=== PATIENT | male | born 1945 | race African-American/Black ===

== ENCOUNTER 2018-06-05 06:26 | Inpatient (IN) | payer MEDICARE ==
[~2018-06-05] VITALS: Ht 172.7 cm; Wt 52.2 kg
[2018-06-05] VITALS (7 sets, daily range): BP systolic 90–105; BP diastolic 56–72
--- NOTE | 2018-06-05 06:36 | NUR ---
ED Nurse Note: patient NOEL [id number] from home c/o bilateral leg pain for 2x days. BS 116 on scene
--- NOTE | 2018-06-05 06:51 | Emergency Room Report ---
History of Present Illness General Chief Complaint: Pain Source: Patient Present Illness HPI Patient is a 72-year-old male brought in by EMS after increased bilateral lower extremity pain. Patient reports having increased discomfort to both feet. The patient denies any fever. He reports having drainage to both legs.The patient reports having normal sensation as well as ability to move toes on both feet. Patient's son patient had been having increased difficulty breathing and been off his medications for COPD. The patient has no known heart conditions. Allergies: Coded Allergies: No Known Allergies (Unverified , 06/05/18) Patient History Past Medical History: see triage record Reviewed Nursing Documentation: PMH: Agreed; PSxH: Agreed Nursing Documentation-PMH Past Medical History: No Stated History Physical Exam Vital Signs Date Time Temp Pulse Resp B/P (MAP) Pulse Ox O2 Delivery O2 Flow Rate FiO2 06/05/18 06:28 99.1 102 20 104/60 99 Room Air General Appearance: thin, Chronically Ill Head: normocephalic ENT: moist mucus membranes Neck: limited range of motion Respiratory: decreased breath sounds, wheezing Cardiovascular #1: regular rate, rhythm, edema - 3+ edema Gastrointestinal: normal inspection, non tender, soft Musculoskeletal: swelling - bilateral, foot swelling Neurologic: normal inspection, alert, oriented x3, responsive Skin: other - urticarial rash to left lower extremity with drainage Procedures Critical Care Time Critical Care Time Patient had a critical medical condition which untreated could potentially result in life or limb threatening injury. Total critical care time excluding procedures approximately 45 minutes. Medical Decision Making Diagnostic Impression: Primary Impression: COPD exacerbation Additional Impressions: Pedal edema Left leg cellulitis Emphysema lung ER Course Patient presented for bilateral lower extremity pain and shortness of breath. Differential included but was not limited to anemia, pneumonia, pneumothorax, myocardial infarction, pericardial effusion, congestive heart failure, acidosis. The laboratory testing was notable for normal white blood count. The patient was noted to have elevated lactic acid level and was started on IV fluids. Patient was noted to have elevated B type nitrate peptide. Chest x- ray one view interpreted by me showed normal cardiac size with emphysematous changes. The patient was started on BiPAP the due to CO2 retention. CT of the head showed no evidence of acute intracranial hemorrhage Dr. Oskar Abdalla was contacted for inpatient management Labs Test 06/05/18 07:11 06/05/18 08:39 06/05/18 09:00 06/05/18 10:29 White Blood Count 8.0 K/UL (4.8-10.8) Red Blood Count 4.70 M/UL (4.70-6.10) Hemoglobin 13.6 G/DL (14.2-18.0) Hematocrit 42.8 % (42.0-52.0) Mean Corpuscular Volume 91 FL (80-99) Mean Corpuscular Hemoglobin 28.9 PG (27.0-31.0) Mean Corpuscular Hemoglobin Concent 31.7 G/DL (32.0-36.0) Red Cell Distribution Width 16.3 % (11.6-14.8) Platelet Count 148 K/UL (150-450) Mean Platelet Volume 10.8 FL (6.5-10.1) Neutrophils (%) (Auto) % (45.0-75.0) Lymphocytes (%) (Auto) % (20.0-45.0) Monocytes (%) (Auto) % (1.0-10.0) Eosinophils (%) (Auto) % (0.0-3.0) Basophils (%) (Auto) % (0.0-2.0) Differential Total Cells Counted 100 Neutrophils % (Manual) 77 % (45-75) Lymphocytes % (Manual) 5 % (20-45) Monocytes % (Manual) 5 % (1-10) Eosinophils % (Manual) 0 % (0-3) Basophils % (Manual) 0 % (0-2) Band Neutrophils 13 % (0-8) Platelet Estimate Decreased Platelet Morphology Normal Red Blood Cell Morphology Normal Sodium Level 138 MMOL/L (136-145) Potassium Level 5.3 MMOL/L (3.5-5.1) Chloride Level 100 MMOL/L (98-107) Carbon Dioxide Level 34 MMOL/L (21-32) Anion Gap 4 mmol/L (5-15) Blood Urea Nitrogen 35 mg/dL (7-18) Creatinine 1.4 MG/DL (0.55-1.30) Estimat Glomerular Filtration Rate mL/min (>60) Glucose Level 93 MG/DL (74-106) Calcium Level 9.2 MG/DL (8.5-10.1) Total Bilirubin 1.5 MG/DL (0.2-1.0) Direct Bilirubin 0.5 MG/DL (0.0-0.3) Aspartate Amino Transf (AST/SGOT) 104 U/L (15-37) Alanine Aminotransferase (ALT/SGPT) 98 U/L (12-78) Alkaline Phosphatase 85 U/L (46-116) Total Creatine Kinase 511 U/L (26-308) Creatine Kinase MB 7.1 NG/ML (0.0-3.6) Creatine Kinase MB Relative Index 1.3 Troponin I 0.054 ng/mL (0.000-0.056) Pro-B-Type Natriuretic Peptide 7468 pg/mL (0-125) Total Protein 7.9 G/DL (6.4-8.2) Albumin 2.9 G/DL (3.4-5.0) Globulin 5.0 g/dL Albumin/Globulin Ratio 0.6 (1.0-2.7) Urine Color Brown Urine Appearance Cloudy Urine pH 5 (4.5-8.0) Urine Specific [place] 1.025 (1.005-1.035) Urine Protein 2+ (NEGATIVE) Urine Glucose (UA) Negative (NEGATIVE) Urine Ketones Negative (NEGATIVE) Urine Blood 4+ (NEGATIVE) Urine Nitrite Negative (NEGATIVE) Urine Bilirubin 1+ (NEGATIVE) Urine Ictotest Negative (NEGATIVE) Urine Urobilinogen 4 MG/DL (0.0-1.0) Urine Leukocyte Esterase 1+ (NEGATIVE) Urine RBC 5-10 /HPF (0 - 0) Urine WBC 2-4 /HPF (0 - 0) Urine Squamous Epithelial Cells Occasional /LPF Urine Amorphous Sediment Many /LPF (NONE) Urine Bacteria Few /HPF (NONE) Urine Mucus Moderate /LPF (NONE/OCC) Lactic Acid Level 2.80 mmol/L (0.66-2.22) Arterial Blood pH 7.299 (7.350-7.450) Arterial Blood Partial Pressure CO2 66.0 mmHg (35.0-45.0) Arterial Blood Partial Pressure O2 53.7 mmHg (75.0-100.0) Arterial Blood HCO3 31.7 mmol/L (22.0-26.0) Arterial Blood Oxygen Saturation 82.5 % (95-100) Arterial Blood Base Excess 3.5 (-2-2) Delon Test Positive EKG Diagnostic Results Rate: normal Rhythm: NSR ST Segments: no acute changes Last Vital Signs Date Time Temp Pulse Resp B/P (MAP) Pulse Ox O2 Delivery O2 Flow Rate FiO2 06/05/18 06:34 99.1 63 20 104/60 99 Room Air Status: unchanged Disposition: ADMITTED INPATIENT Condition: Serious Scripts No Active Prescriptions or Reported Meds Kolby Cabrera MD Jun 05, 2018 06:51
[2018-06-05] MEDS ORDERED: Albuterol/Ipratropium 3ml neb HHN ONE (07:00)
[2018-06-05] MEDS ORDERED: DiphenhydrAMINE 50mg/ml Inj IVP ONE (07:00)
[2018-06-05] MEDS ORDERED: Ampicillin/Sulbactam Sod 3 GM in NS 110 ML IVPB ONE (07:00)
[2018-06-05] MEDS ORDERED: Solu-MEDROL 125mg Inj IVP ONE (07:00)
[2018-06-05 07:42] LABS: HEMATOCRIT 42.8 % (42.0-52.0); HEMOGLOBIN 13.6 G/DL (14.2-18.0); MEAN CORPUSCULAR VOLUME 91 FL (80-99); PLATELET COUNT 148 K/UL (150-450); RED CELL DISTRIBUTION WIDTH 16.3 % (11.6-14.8)
[2018-06-05 07:44] LABS: ANION GAP 4 mmol/L (5-15); BLOOD UREA NITROGEN 35 mg/dL (7-18); CALCIUM 9.2 MG/DL (8.5-10.1); CARBON DIOXIDE 34 MMOL/L (21-32); CHLORIDE 100 MMOL/L (98-107); CREATININE 1.4 MG/DL (0.55-1.30); POTASSIUM 5.3 MMOL/L (3.5-5.1); SODIUM 138 MMOL/L (136-145)
[2018-06-05 07:59] LABS: ALANINE AMINOTRANSFERASE 98 U/L (12-78); ALBUMIN 2.9 G/DL (3.4-5.0); ALBUMIN/GLOBULIN RATIO 0.6 (1.0-2.7); ALKALINE PHOSPHATASE 85 U/L (46-116); ASPARTATE AMINO TRANSFERASE 104 U/L (15-37); BILIRUBIN,TOTAL 1.5 MG/DL (0.2-1.0); CKMB 7.1 NG/ML (0.0-3.6); CREATINE KINASE 511 U/L (26-308)
[2018-06-05 08:00] LABS: BILIRUBIN,DIRECT 0.5 MG/DL (0.0-0.3)
--- NOTE | 2018-06-05 08:15 | NUR ---
ED Nurse Note: Pt sleeping comfortably on bed with NS running fluid bolus. Blankets are provided. VSS. Will continue to assess. Family members at the bed side.
--- NOTE | 2018-06-05 08:24 | NUR ---
ED Nurse Note: Rdaiologist at the bed side for CXR.
[2018-06-05 08:51] LABS: APPEARANCE,URINE CLOUDY; BILIRUBIN, URINE 1+ (NEGATIVE); COLOR,URINE BROWN; GLUCOSE, URINE (UA) NEGATIVE (NEGATIVE); KETONES,URINE NEGATIVE (NEGATIVE); LEUKOCYTE ESTERASE ,URINE 1+ (NEGATIVE); NITRITE,URINE NEGATIVE (NEGATIVE); PH,URINE 5 (4.5-8.0); PROTEIN,URINE 2+ (NEGATIVE); UROBILINOGEN,URINE 4 MG/DL (0.0-1.0)
--- NOTE | 2018-06-05 08:54 | Diagnostic Imaging Report ---
Indication: Cough, shortness of breath Technique: One view of the chest Comparison: none Findings: Lungs are hyperinflated. Lungs and pleural spaces are clear. Heart size is normal. Aorta is tortuous Impression: Hyperinflation, compatible with COPD. No acute process
--- NOTE | 2018-06-05 09:01 | NUR ---
ED Nurse Note: Repeat lactic acid sent.
--- NOTE | 2018-06-05 09:41 | NUR ---
ED Nurse Note: Noted bilateral lower extremity redness and edema with open skin tears, (2 big skin tears on left lower leg with + 4 pitting edema, and 3 skin tears on right lower legs with +1 pitting edema. Also noted pt to be lethargic and sleeps most of the time. Dr Cabrera at the bed side
--- NOTE | 2018-06-05 09:41 | NUR ---
Note kyra in EDM - 06/05/18 at 1101 by KEVIN ED Nurse Note: Noted bilateral lower extremity redness and edema with open skin tears, (2 big skin tears on left lower leg with + 4 pitting edema and 2 yfn skin tears on right lower legs with +1 pitting edema. Also noted pt to be lethargic and sleeps most of the time. Dr Cabrera at the bed side
--- NOTE | 2018-06-05 09:53 | NUR ---
ED Nurse Note: Patient taken to CT via gurney.
--- NOTE | 2018-06-05 10:12 | NUR ---
ED Nurse Note: Pt back from CT department, per Loc they were unable to proceed with the CT head d/t pt not able to hold his head still. Charge nurse and Dr Rick heller.
--- NOTE | 2018-06-05 10:21 | NUR ---
ED Nurse Note: RT at the bed side for ABG.
--- NOTE | 2018-06-05 10:26 | Diagnostic Imaging Report ---
Indications: Altered mental status Technique: Spiral acquisitions obtained through the brain. Angled axial and coronal 5 x 5 mm slices were reconstructed. Total dose length product 1576.66 mGycm. CTDI vol(s) 70.38 mGy. Dose reduction achieved using automated exposure control Comparison: None. Findings: There is image degradation due to motion artifact. No gross acute intracranial hemorrhage nor edema, mass effect, nor midline shift. There is mild age-related enlargement of the ventricles and extra axial CSF spaces. There is questionably frontal scalp soft tissue swelling, although this could just be artifactual due to motion. Normal campo-white differentiation. Visualized orbits and sinuses are grossly unremarkable. The mastoids are clear. The calvarium is intact Impression: . Limited exam due to motion artifact. Significant pathology could be missed No gross acute intracranial bleed or mass effect Mild age-related volume loss The CT scanner at [facility] is accredited by the [employer] and the scans are performed using protocols designed to limit radiation exposure to as low as reasonably achievable to attain images of sufficient resolution adequate for diagnostic evaluation.
--- NOTE | 2018-06-05 10:45 | NUR ---
ED Nurse Note: Started Bipap at 1045 as per ER MD order. RT at the bed side.
[2018-06-05] MEDS ORDERED: Albuterol/Ipratropium 3ml neb ONE (10:52)
--- NOTE | 2018-06-05 11:08 | Cardiac Electrophysiology PN ---
Subjective Subjective Patient seen in ER [id number] Objective Last 24 Hour Vital Signs Date Time Temp Pulse Resp B/P (MAP) Pulse Ox O2 Delivery O2 Flow Rate FiO2 06/05/18 10:45 98.0 93 23 102/70 92 Bi-pap 30 06/05/18 10:45 30 06/05/18 08:30 99.0 80 18 99/72 99 Nasal Cannula 2.0 06/05/18 07:33 109 20 Nasal Cannula 2.0 28 06/05/18 07:33 106 20 Nasal Cannula 2.0 28 06/05/18 07:32 106 20 Room Air 21 06/05/18 06:34 99.1 63 20 104/60 99 Room Air 06/05/18 06:28 99.1 102 20 104/60 99 Room Air Laboratory Tests Test 06/05/18 07:11 06/05/18 08:39 06/05/18 09:00 06/05/18 10:29 White Blood Count 8.0 K/UL (4.8-10.8) Red Blood Count 4.70 M/UL (4.70-6.10) Hemoglobin 13.6 G/DL (14.2-18.0) L Hematocrit 42.8 % (42.0-52.0) Mean Corpuscular Volume 91 FL (80-99) Mean Corpuscular Hemoglobin 28.9 PG (27.0-31.0) Mean Corpuscular Hemoglobin Concent 31.7 G/DL (32.0-36.0) L Red Cell Distribution Width 16.3 % (11.6-14.8) H Platelet Count 148 K/UL (150-450) L Mean Platelet Volume 10.8 FL (6.5-10.1) H Neutrophils (%) (Auto) % (45.0-75.0) Lymphocytes (%) (Auto) % (20.0-45.0) Monocytes (%) (Auto) % (1.0-10.0) Eosinophils (%) (Auto) % (0.0-3.0) Basophils (%) (Auto) % (0.0-2.0) Differential Total Cells Counted 100 Neutrophils % (Manual) 77 % (45-75) H Lymphocytes % (Manual) 5 % (20-45) L Monocytes % (Manual) 5 % (1-10) Eosinophils % (Manual) 0 % (0-3) Basophils % (Manual) 0 % (0-2) Band Neutrophils 13 % (0-8) H Platelet Estimate Decreased L Platelet Morphology Normal Red Blood Cell Morphology Normal Sodium Level 138 MMOL/L (136-145) Potassium Level 5.3 MMOL/L (3.5-5.1) H Chloride Level 100 MMOL/L (98-107) Carbon Dioxide Level 34 MMOL/L (21-32) H Anion Gap 4 mmol/L (5-15) L Blood Urea Nitrogen 35 mg/dL (7-18) H Creatinine 1.4 MG/DL (0.55-1.30) H Estimat Glomerular Filtration Rate mL/min (>60) Glucose Level 93 MG/DL (74-106) Lactic Acid Level 3.20 mmol/L (0.4-2.0) H 2.80 mmol/L (0.66-2.22) H Calcium Level 9.2 MG/DL (8.5-10.1) Total Bilirubin 1.5 MG/DL (0.2-1.0) H Direct Bilirubin 0.5 MG/DL (0.0-0.3) H Aspartate Amino Transf (AST/SGOT) 104 U/L (15-37) H Alanine Aminotransferase (ALT/SGPT) 98 U/L (12-78) H Alkaline Phosphatase 85 U/L (46-116) Total Creatine Kinase 511 U/L (26-308) H Creatine Kinase MB 7.1 NG/ML (0.0-3.6) H Creatine Kinase MB Relative Index 1.3 Troponin I 0.054 ng/mL (0.000-0.056) Pro-B-Type Natriuretic Peptide 7468 pg/mL (0-125) H Total Protein 7.9 G/DL (6.4-8.2) Albumin 2.9 G/DL (3.4-5.0) L Globulin 5.0 g/dL Albumin/Globulin Ratio 0.6 (1.0-2.7) L Urine Color Brown Urine Appearance Cloudy Urine pH 5 (4.5-8.0) Urine Specific [place] 1.025 (1.005-1.035) Urine Protein 2+ (NEGATIVE) H Urine Glucose (UA) Negative (NEGATIVE) Urine Ketones Negative (NEGATIVE) Urine Blood 4+ (NEGATIVE) H Urine Nitrite Negative (NEGATIVE) Urine Bilirubin 1+ (NEGATIVE) H Urine Ictotest Negative (NEGATIVE) Urine Urobilinogen 4 MG/DL (0.0-1.0) H Urine Leukocyte Esterase 1+ (NEGATIVE) H Urine RBC 5-10 /HPF (0 - 0) H Urine WBC 2-4 /HPF (0 - 0) Urine Squamous Epithelial Cells Occasional /LPF Urine Amorphous Sediment Many /LPF (NONE) H Urine Bacteria Few /HPF (NONE) Urine Mucus Moderate /LPF (NONE/OCC) H Arterial Blood pH 7.299 (7.350-7.450) Arterial Blood Partial Pressure CO2 66.0 mmHg (35.0-45.0) *H Arterial Blood Partial Pressure O2 53.7 mmHg (75.0-100.0) L Arterial Blood HCO3 31.7 mmol/L (22.0-26.0) H Arterial Blood Oxygen Saturation 82.5 % (95-100) *L Arterial Blood Base Excess 3.5 (-2-2) H Delon Test Positive Lv Campbell MD Jun 05, 2018 11:09
--- NOTE | 2018-06-05 11:45 | NUR ---
ED Nurse Note: Report given to Georgie Mccurdy of [facility].
--- NOTE | 2018-06-05 12:00 | NUR ---
ED Nurse Note: Waiting for RT for pt transfer to [facility].
--- NOTE | 2018-06-05 12:13 | NUR ---
Note kyra in EDM - 06/05/18 at 1217 by KEVIN ED Nurse Note: Called RT to continue with Bipap. Pt CXR shows pulmonary edema per Dr Cabrera.
--- NOTE | 2018-06-05 12:50 | NUR ---
NURSE NOTES: Patient received from ER. Alert and responsive, oriented but uncooperative. Denies pain. With noted SOB at rest. Patient is on BIPAP with setting rate:16, 15/5, FiO2:30% with oxygen saturation 94%. SR on the monitor at rate 80s. Skin assessment done, pictures of lower extremities taken. Elevated extremities with pillows. Oriented on room. Placed bed on lowest position. Placed call light within reach.
--- NOTE | 2018-06-05 13:00 | NUR ---
NURSE NOTES: Called and spoke with sonJah to get more medical information. Son states that patient has not been taking any medication because he stopped taking them 6 months ago. Only known history is emphysema and patient reports that he's a former smoker. Patient refused Pneumonia and flu vaccine.
[2018-06-05] MEDS: Albuterol/Ipratropium 3ml neb HHN SCH ×3 (15:08→23:33)
[2018-06-05] MEDS: cefTRIAXone 1 GM in D5W 55 ML IVPB SCH (15:15)
[2018-06-05] MEDS: Solu-MEDROL 40mg Inj IVP SCH ×2 (15:15→21:47)
--- NOTE | 2018-06-05 15:30 | Pulmonology Progress Note ---
Assessment/Plan Assessment/Plan Pulmonary Consultation Note HPI Patient is a 72-year-old male with previoujs history of COPD, brought in by EMS after increased bilateral lower extremity pain. Patient reports having increased discomfort to both feet. The patient denies any fever. He reports having drainage to both legs.The patient reports having normal sensation as well as ability to move toes on both feet. Patient's son patient had been having increased difficulty breathing and been off his medications for COPD. The patient has no known heart conditions. Allergies: No Known Allergies Past Medical History: COPD ROS: COPDhortness of breath, LE pain, rest Negative Physical Exam Vital Signs Date Time Temp Pulse Resp B/P (MAP) Pulse Ox O2 Delivery O2 Flow Rate FiO2 06/05/18 06:34 99.1 63 20 104/60 99 Room Air General Appearance: thin, Chronically Ill Head: normocephalic ENT: moist mucus membranes Neck: limited range of motion Respiratory: decreased breath sounds, wheezing Cardiovascular #1: regular rate, rhythm, edema - 3+ edema Gastrointestinal: normal inspection, non tender, soft Musculoskeletal: swelling - bilateral, foot swelling Neurologic: normal inspection, alert, oriented x3, responsive Skin: other - urticarial rash to left lower extremity with drainage Impression: COPD exacerbation Emphysema Pedal edema Left leg cellulitis Plan IV antibiotics Solumedrol HHN BiPAP PRN O2 PRN SQ hepairin Analgesia Labs Test 06/05/18 07:11 06/05/18 08:39 06/05/18 09:00 06/05/18 10:29 White Blood Count 8.0 K/UL (4.8-10.8) Red Blood Count 4.70 M/UL (4.70-6.10) Hemoglobin 13.6 G/DL (14.2-18.0) Hematocrit 42.8 % (42.0-52.0) Mean Corpuscular Volume 91 FL (80-99) Mean Corpuscular Hemoglobin 28.9 PG (27.0-31.0) Mean Corpuscular Hemoglobin Concent 31.7 G/DL (32.0-36.0) Red Cell Distribution Width 16.3 % (11.6-14.8) Platelet Count 148 K/UL (150-450) Mean Platelet Volume 10.8 FL (6.5-10.1) Neutrophils (%) (Auto) % (45.0-75.0) Lymphocytes (%) (Auto) % (20.0-45.0) Monocytes (%) (Auto) % (1.0-10.0) Eosinophils (%) (Auto) % (0.0-3.0) Basophils (%) (Auto) % (0.0-2.0) Differential Total Cells Counted 100 Neutrophils % (Manual) 77 % (45-75) Lymphocytes % (Manual) 5 % (20-45) Monocytes % (Manual) 5 % (1-10) Eosinophils % (Manual) 0 % (0-3) Basophils % (Manual) 0 % (0-2) Band Neutrophils 13 % (0-8) Platelet Estimate Decreased Platelet Morphology Normal Red Blood Cell Morphology Normal Sodium Level 138 MMOL/L (136-145) Potassium Level 5.3 MMOL/L (3.5-5.1) Chloride Level 100 MMOL/L (98-107) Carbon Dioxide Level 34 MMOL/L (21-32) Anion Gap 4 mmol/L (5-15) Blood Urea Nitrogen 35 mg/dL (7-18) Creatinine 1.4 MG/DL (0.55-1.30) Estimat Glomerular Filtration Rate mL/min (>60) Glucose Level 93 MG/DL (74-106) Calcium Level 9.2 MG/DL (8.5-10.1) Total Bilirubin 1.5 MG/DL (0.2-1.0) Direct Bilirubin 0.5 MG/DL (0.0-0.3) Aspartate Amino Transf (AST/SGOT) 104 U/L (15-37) Alanine Aminotransferase (ALT/SGPT) 98 U/L (12-78) Alkaline Phosphatase 85 U/L (46-116) Total Creatine Kinase 511 U/L (26-308) Creatine Kinase MB 7.1 NG/ML (0.0-3.6) Creatine Kinase MB Relative Index 1.3 Troponin I 0.054 ng/mL (0.000-0.056) Pro-B-Type Natriuretic Peptide 7468 pg/mL (0-125) Total Protein 7.9 G/DL (6.4-8.2) Albumin 2.9 G/DL (3.4-5.0) Globulin 5.0 g/dL Albumin/Globulin Ratio 0.6 (1.0-2.7) Urine Color Brown Urine Appearance Cloudy Urine pH 5 (4.5-8.0) Urine Specific [place] 1.025 (1.005-1.035) Urine Protein 2+ (NEGATIVE) Urine Glucose (UA) Negative (NEGATIVE) Urine Ketones Negative (NEGATIVE) Urine Blood 4+ (NEGATIVE) Urine Nitrite Negative (NEGATIVE) Urine Bilirubin 1+ (NEGATIVE) Urine Ictotest Negative (NEGATIVE) Urine Urobilinogen 4 MG/DL (0.0-1.0) Urine Leukocyte Esterase 1+ (NEGATIVE) Urine RBC 5-10 /HPF (0 - 0) Urine WBC 2-4 /HPF (0 - 0) Urine Squamous Epithelial Cells Occasional /LPF Urine Amorphous Sediment Many /LPF (NONE) Urine Bacteria Few /HPF (NONE) Urine Mucus Moderate /LPF (NONE/OCC) Lactic Acid Level 2.80 mmol/L (0.66-2.22) Arterial Blood pH 7.299 (7.350-7.450) Arterial Blood Partial Pressure CO2 66.0 mmHg (35.0-45.0) Arterial Blood Partial Pressure O2 53.7 mmHg (75.0-100.0) Arterial Blood HCO3 31.7 mmol/L (22.0-26.0) Arterial Blood Oxygen Saturation 82.5 % (95-100) Arterial Blood Base Excess 3.5 (-2-2) Delon Test Positive EKG Diagnostic Results Rate: normal Rhythm: NSR ST Segments: no acute changes Subjective ROS Limited/Unobtainable: No Musculoskeletal: Reports: pain Allergies: Coded Allergies: No Known Allergies (Unverified , 06/05/18) Objective Last 24 Hour Vital Signs Date Time Temp Pulse Resp B/P (MAP) Pulse Ox O2 Delivery O2 Flow Rate FiO2 06/05/18 15:10 76 16 Bi-pap 30 06/05/18 14:42 76 16 98 Facial 30 06/05/18 13:47 105/67 (80) 06/05/18 12:50 Bi-pap 06/05/18 12:50 30 06/05/18 12:50 97.9 83 25 96/69 (78) 94 06/05/18 12:30 98.0 89 22 115/76 94 Bi-pap 30 06/05/18 10:45 98.0 93 23 102/70 92 Bi-pap 30 06/05/18 10:45 96 27 99 Facial 30 06/05/18 10:45 30 06/05/18 08:30 99.0 80 18 99/72 99 Nasal Cannula 2.0 06/05/18 07:33 109 20 Nasal Cannula 2.0 28 06/05/18 07:33 106 20 Nasal Cannula 2.0 28 06/05/18 07:32 106 20 Room Air 21 06/05/18 06:34 99.1 63 20 104/60 99 Room Air 06/05/18 06:28 99.1 102 20 104/60 99 Room Air Microbiology Date/Time Source Procedure Growth Status 06/05/18 11:00 Rectum Received Laboratory Tests 06/05/18 07:11: White Blood Count 8.0, Red Blood Count 4.70, Hemoglobin 13.6L, Hematocrit 42.8, Mean Corpuscular Volume 91, Mean Corpuscular Hemoglobin 28.9, Mean Corpuscular Hemoglobin Concent 31.7L, Red Cell Distribution Width 16.3H, Platelet Count 148L , Mean Platelet Volume 10.8H, Neutrophils (%) (Auto) , Lymphocytes (%) (Auto) , Monocytes (%) (Auto) , Eosinophils (%) (Auto) , Basophils (%) (Auto) , Differential Total Cells Counted 100, Neutrophils % (Manual) 77H, Lymphocytes % (Manual) 5L, Monocytes % (Manual) 5, Eosinophils % (Manual) 0, Basophils % ( Manual) 0, Band Neutrophils 13H, Platelet Estimate DecreasedL, Platelet Morphology Normal, Red Blood Cell Morphology Normal, Sodium Level 138, Potassium Level 5.3H, Chloride Level 100, Carbon Dioxide Level 34H, Anion Gap 4L , Blood Urea Nitrogen 35H, Creatinine 1.4H, Estimat Glomerular Filtration Rate , Glucose Level 93, Lactic Acid Level 3.20H, Calcium Level 9.2, Total Bilirubin 1.5H, Direct Bilirubin 0.5H, Aspartate Amino Transf (AST/SGOT) 104H, Alanine Aminotransferase (ALT/SGPT) 98H, Alkaline Phosphatase 85, Total Creatine Kinase 511H, Creatine Kinase MB 7.1H, Creatine Kinase MB Relative Index 1.3, Troponin I 0.054, Pro-B-Type Natriuretic Peptide 7468H, Total Protein 7.9, Albumin 2.9L, Globulin 5.0, Albumin/Globulin Ratio 0.6L 06/05/18 08:39: Urine Color Brown, Urine Appearance Cloudy, Urine pH 5, Urine Specific [place] 1.025, Urine Protein 2+H, Urine Glucose (UA) Negative, Urine Ketones Negative, Urine Blood 4+H, Urine Nitrite Negative, Urine Bilirubin 1+H, Urine Ictotest Negative, Urine Urobilinogen 4H, Urine Leukocyte Esterase 1+H, Urine RBC 5-10H, Urine WBC 2-4, Urine Squamous Epithelial Cells Occasional, Urine Amorphous Sediment ManyH, Urine Bacteria Few, Urine Mucus ModerateH 06/05/18 09:00: Lactic Acid Level 2.80H 06/05/18 10:29: Arterial Blood pH 7.299L, Arterial Blood Partial Pressure CO2 66.0*H, Arterial Blood Partial Pressure O2 53.7L, Arterial Blood HCO3 31.7H, Arterial Blood Oxygen Saturation 82.5*L, Arterial Blood Base Excess 3.5H, Delon Test Positive Current Medications Medications (Trade) Dose Ordered Sig/Brittani Route PRN Reason Start Time Stop Time Status Last Admin Dose Admin Albuterol/ Ipratropium (Albuterol/ Ipratropium) 3 ml Q4HRT HHN 06/05/18 15:00 06/10/18 14:59 06/05/18 15:08 Ceftriaxone Sodium 1 gm/ Dextrose 55 ml @ 110 mls/hr DAILY IVPB 06/05/18 15:00 06/12/18 14:59 06/05/18 15:15 Doxycycline Hyclate 100 mg/ Dextrose 110 ml @ 110 mls/hr Q12HR IVPB 06/05/18 21:00 06/12/18 20:59 UNV Furosemide (Lasix) 40 mg EVERY 12 HOURS IV 06/05/18 12:00 07/05/18 11:59 06/05/18 14:36 Heparin Sodium (Porcine) (Heparin 5000 units/ml) 5,000 units EVERY 12 HOURS SUBQ 06/05/18 21:00 07/05/18 20:59 Methylprednisolone Sodium Succinate (Solu-MEDROL) 40 mg EVERY 12 HOURS IVP 06/05/18 15:00 07/05/18 14:59 06/05/18 15:15 Vancomycin HCl (Vanco rx to dose) 1 ea DAILY PRN MISC Per rx protocol 06/05/18 14:00 07/05/18 13:59 Vancomycin HCl 500 mg/Dextrose 110 ml @ 110 mls/hr Q24H IVPB 06/06/18 16:00 06/11/18 15:59 Vancomycin HCl 1 gm/Dextrose 275 ml @ 183.708 mls/hr ONCE ONCE IVPB 06/05/18 16:00 06/05/18 17:29 Johny White MD Jun 05, 2018 15:30
--- NOTE | 2018-06-05 15:51 | Cardiology Report ---
APPROVED REPORT EKG Measurement Heart [id number] Sinus tachycardia with premature atrial complexes with aberrant conduction Possible Inferior infarct, age undetermined Anterior infarct, age undetermined Abnormal ECG
[2018-06-05] MEDS ORDERED: Vancomycin 1gm/D5W 275ml IVPB ONE ×2 (16:00)
--- NOTE | 2018-06-05 16:09 | NUR ---
NURSE NOTES: Called Dr. White and made aware of the ABG result pCO2:66.1, pO2:83.2, HCO3:36.8, oxygen saturation:94.9, base excess:9.1 while on BIPAP rate:16, 15/5, FiO2:30% with oxygen saturation of 94%. Patient noted drowsy, arousable to speech. Also verified order of Doxycycline.Made aware that patient is currently on Ceftriaxone and Vancomycin as ordered by ID, Verified if MD would like to continue Doxycycline and MD ordered to keep Doxycycline.
[2018-06-05] MEDS ORDERED: Doxycycline Hyclate 100 MG in D5W 110 ML IV SCH (18:00)
--- NOTE | 2018-06-05 18:42 | NUR ---
Social Service Note GARTH spoke with patient's son Jah Holly [phone] to obtain history prior to admission. Son states patient was independent with ADL's up until about a week and half ago. Patient has not received medical intervention or seen a physician for about a year. Patient's at [facility] about 10 years ago. Son states patient never recovered from this lost but once he lost his job about year ago son stated patient became more depressed and withdrawn. Patient didn't use DME at home and just recently stopped driving. 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 Son states patient didn't require assistance. Son states when he found his father down patient was returning from the bathroom. Son stated patient wet his bed and son removed sheets prior to ambulance arrival. Son states wetting the bed is a new event which he believes is due to patient's decline in ambulation and ability to get out of bed. SW addressed code status. At this time patient will remain a full code. However son indicated if patient required intubation and didn't show a meaningful recovery he would not want patient's life to be prolonged. Patient states upon discharge he believes patient will require SNF placement. Son does not want placement at [facility]. Son would also like to speak with [facility]. Patient doesn't have an advance directive. Will monitor and assist as needed.
[2018-06-05] MEDS: Doxycycline Hyclate 100 MG in D5W 110 ML IV SCH (18:45)
--- NOTE | 2018-06-05 19:34 | NUR ---
HAND-OFF: Report given to GENNY Wyatt. Endorsed that patient has pending 2decho, venous duplex, troponin at 0400 and currently NPO. Endorsed that CRYSTAL FINISHER was consulted to locate family for code status. CRYSTAL FINISHER to be informed.
--- NOTE | 2018-06-05 19:35 | NUR ---
NURSE NOTES: report received from GENNY Paz. Observed pt lying on the bed, no signs of pain at this time. pt is A/O x3-4. pt is on Bipap 16, 15/5, FiO2 30%, no signs of distress noted. Pt has condom catheter, intact and draining well. IV site on L FA 20G TKO, intact and patent. Bed in the lowest position. Will continue to monitor.
--- NOTE | 2018-06-05 19:45 | Consultation ---
DATE OF CONSULTATION: 06/05/2018 CARDIOLOGY CONSULTATION CONSULTING PHYSICIAN: Lv Campbell M.D. REFERRING PHYSICIAN: Oskar Nichole M.D. REASON FOR CONSULTATION: Congestive heart failure and shortness of breath. HISTORY OF PRESENT ILLNESS: The patient is a 72-year-old gentleman who has history of chronic COPD on home oxygen that the patient's has not been taking this for about six months. The patient's last hospitalization was about a year ago. The patient was noted to also have severe bilateral lower extremity pain and swelling and cellulitis with drainage from both legs. The patient was brought to the emergency room and was found to have a high CO2 and low oxygen saturation. Cardiology consultation was obtained for further evaluation and management. REVIEW OF SYSTEMS: Review of systems was negative other than what was mentioned in the history of present illness that was performed through his son as currently the patient is on BiPAP. PAST MEDICAL HISTORY: COPD. FAMILY HISTORY: Noncontributory. SOCIAL HISTORY: He lives at home. Does not smoke or drink alcohol. PHYSICAL EXAMINATION: VITAL SIGNS: Blood pressure 104/60, pulse 102, respirations 20, and temperature 99.1. HEAD AND NECK: Show positive JVD. LUNGS: Decreased breath sounds. CARDIOVASCULAR: Shows regular S1 and S2 with no gallop. ABDOMEN: Soft. EXTREMITIES: Bilateral 2+ pitting edema and cellulitis. LABORATORY AND DIAGNOSTIC DATA: His EKG shows sinus tachycardia with intermittent axis with old anteroseptal myocardial infarction. Chest x-ray that showed no cardiomegaly. His labs show white count of 8, hemoglobin 13, hematocrit of 42, and platelet count is 148. Sodium 138, potassium 5.3, BUN of 35, creatinine 1.4, glucose of 93. Lactic acid is 3.2 and 2.8. Troponin is negative. BNP is 7468. ASSESSMENT AND PLAN: 1. Severe bilateral lower extremity edema. BNP is also 7500. We will start the patient on Lasix 40 mg IV b.i.d. Get lower extremity duplex as well as echocardiogram for further evaluation. 2. COPD exacerbation. Further evaluation by and nebulizers, currently on BiPAP. 3. Lower extremity cellulitis, likely would need antibiotics. Thank you very much for allowing me to participate in the care of this patient. Please do not hesitate to contact me for any questions regarding my evaluation. Lv Campbell M.D. DR: SHADE JOB#: [id number] CC:
[2018-06-05] MEDS: Heparin 5000 units/ml inj SUBQ SCH (21:49)
--- NOTE | 2018-06-05 22:30 | History and Physical Report ---
DATE OF ADMISSION: 06/05/2018 HISTORY OF PRESENT ILLNESS: The patient is admitted for chronic obstructive pulmonary disease exacerbation. The patient is on BiPAP, is a poor historian, contracted with multiple wounds, cachectic, admitted for COPD exacerbation, cannot get reliable history from the patient. The patient is a very poor historian. The patient does have shortness of breath and is admitted for COPD exacerbation and left leg cellulitis. He has history of COPD, has been off his medications, admits shortness of breath has been going on for couple of days. The patient has elevated lactic acid and BNP as well. An EKG initially shows sinus tachycardia, was given antibiotics in the ER. The patient also has elevated . PAST MEDICAL HISTORY: Significant for COPD and GERD. PAST SURGICAL HISTORY: None known. ALLERGIES: No known drug allergies. MEDICATIONS: Cannot verify medications at this point. The patient is a poor historian. FAMILY HISTORY: Unable to obtain. SOCIAL HISTORY: Unable to obtain. REVIEW OF SYSTEMS: Unable to obtain. Poor historian. The patient is on BiPAP. PHYSICAL EXAMINATION: VITAL SIGNS: Temperature 97.9, pulse 80, blood pressure 90/56. HEENT: PERRLA. CHEST: Bibasilar wheezing. CARDIOVASCULAR: Tachycardic. GASTROINTESTINAL: Soft. Positive bowel sounds. EXTREMITIES: The patient does have contractures. SKIN: For skin integrity and wounds refer to the nursing notes. NEUROLOGIC: Oriented to name. The patient is on BiPAP. LABORATORY DATA: WBC of 8, hemoglobin 13.6, and platelets of 148. Sodium 138, potassium 5.3, BUN of 35, creatinine 1.4, and glucose of 93, AST of 104, ALT of 98, alkaline phosphatase of 85, total bilirubin of 1.5. BNP of 7468. Troponin 0.054. ASSESSMENT: 1. COPD exacerbation. 2. Respiratory insufficiency. 3. Elevated LFTS. 4. Cellulitis on the left leg. 5. The patient also has erythema and warmth to touch on the left leg. 6. Chronic obstructive pulmonary disease exacerbation. 7. Tachycardia. I have asked Dr. Salmon, Dr. Pinedo, Dr. Daly, Dr. Campbell, Dr. William Avalos to see the patient for above-mentioned diagnoses and . Antibiotics per Dr. William Avalos. Oskar Nichole M.D. DR: Taina JOB#: [id number] CC:
[2018-06-06] VITALS: BP 100/67
--- NOTE | 2018-06-06 | Consultation ---
DATE OF CONSULTATION: 06/05/2018 NOTE: POOR AUDIO INFECTIOUS DISEASE CONSULTATION CONSULTING PHYSICIAN: William Avalos M.D. PRIMARY ATTENDING PHYSICIAN: Oskar Nichole M.D. REASON FOR CONSULTATION: Leg cellulitis and chronic obstructive pulmonary disease exacerbation. HISTORY OF PRESENT ILLNESS: This is a 72-year-old male, admitted from home today complaining of shortness of breath, also has pain in both legs with ulceration in the left one and oozing some fluid. The patient was found to have elevated transaminase, renal failure, and lactic acidosis. The patient is a poor historian. PAST MEDICAL HISTORY: Chronic obstructive pulmonary disease, Emphysema. ALLERGIES: No known drug allergies. MEDICATIONS: Lasix, , albuterol, ipratropium inhaler. received Unasyn In ER, got the dose of methylprednisone . SOCIAL HISTORY: The patient comes from home. was smoker. No other history obtainable. The patient currently has shortness of breath, on BiPAP. PHYSICAL EXAMINATION: VITAL SIGNS: Temperature is 97.9, pulse 83, and blood pressure 105/67. GENERAL APPEARANCE: In respiratory distress. HEAD AND NECK: Currently, on BiPAP. [place] conjunctivae. HEART: Normal rate. LUNGS: Decreased sound on expansion. ABDOMEN: Soft and nontender. EXTREMITIES: Has erythema in both legs. He has ulceration more in left leg. LABORATORY AND DIAGNOSTIC DATA: platelets 148,000. Sodium 138, potassium 5.3, BUN 35, and creatinine 1.4. Lactic acid 2.8. Bilirubin 1.5. AST 104 and ALT 98. BNP level was elevated at 7568. Albumin is 2.9. CT scan of the head shows age-related atrophy that is mild. Chest x-ray showed COPD. IMPRESSION: 1. Chronic obstructive pulmonary disease exacerbation. 2. Cellulitis of the leg, more on the left side. 3. The patient has hypercapnic and hypoxemic respiratory failure. 4. Renal failure that is not clear acute or chronic. 5. Elevated transaminase and bilirubin . 6. Hyperkalemia. RECOMMENDATIONS: We will start the patient on vancomycin and ceftriaxone. We will follow up the culture. We will order abdominal ultrasound to further evaluate for kidney and liver abnormality. At the end of my exam, I thank, Dr. Nichole, for involving me in the care of this patient. William Avalos M.D. DR: BELLA JOB#: [id number] CC: GUSTAVO
[2018-06-06] MEDS: Albuterol/Ipratropium 3ml neb HHN SCH ×6 (03:10→22:50)
--- NOTE | 2018-06-06 03:30 | Consultation ---
DATE OF CONSULTATION: 06/05/2018 GASTROENTEROLOGY CONSULTATION CONSULTING PHYSICIAN: Carlos Daly M.D. REFERRING PHYSICIAN: Oskar Nichole M.D. CHIEF COMPLAINT: I was asked to see this patient by Dr. Oskar Nichole for evaluation of abnormal liver tests. HISTORY OF PRESENT ILLNESS: The patient is a pleasant 72-year-old male with multiple medical problems including chronic COPD on home oxygen, who comes into the hospital due to lower extremity cellulitis. The patient has been ill with congestive heart failure and shortness of breath and on evaluation he is also noted to have abnormal liver tests. He denies any abdominal pain, nausea, vomiting, or history of hepatitis or jaundice. He drinks alcohol only occasionally. PAST MEDICAL HISTORY: History of oxygen dependent COPD, congestive heart failure, lower extremity venous stasis, and recurrent cellulitis. FAMILY HISTORY: Noncontributory. SOCIAL HISTORY: The patient lives in the [facility]. He drinks occasionally. REVIEW OF SYSTEMS: Otherwise negative. PHYSICAL EXAMINATION: GENERAL: Debilitated thin man, found in his room. HEENT: Normocephalic and atraumatic. Sclerae anicteric. Oropharynx is clear. NECK: Supple. CHEST: Revealed coarse breath sounds. CARDIOVASCULAR: Revealed regular rate. ABDOMEN: Soft. Good bowel sounds. There is no organomegaly or tenderness. EXTREMITIES: Revealed bilateral lower extremity edema with color consistent with cellulitis. LABORATORY DATA: Noted. ASSESSMENT: This patient presents with chronic obstructive pulmonary disease exacerbation and respiratory failure, which is both acute on chronic. He is also found to have cellulitis of his lower extremity, which increases his infectious complications. His liver tests were also elevated, but the etiology is unclear. The patient himself does not offer any history and therefore workup will include checking for hepatitis serology, which will be ordered for tomorrow morning. The ultrasound of the abdomen has been done this afternoon, but no results yet. Once reviewed, then further imaging studies including MRI scan can be considered. In the meantime, the patient should be encouraged to maximize oral intake given the amount of metabolic stress that he is undergoing. RECOMMENDATIONS: 1. Push oral intake. 2. Follow liver tests. 3. Check hepatitis serology. 4. Followup ultrasound result. 5. Antibiotics. 6. Pulmonary support and treatment. Thank you for asking me to participate in the care of this patient. Carlos Daly M.D. DR: ATIF JOB#: [id number] CC: GUSTAVO
[2018-06-06 04:00] VITALS: BP 98/72
[2018-06-06 05:38] LABS: HEMOGLOBIN 11.4 G/DL (14.2-18.0); MEAN CORPUSCULAR VOLUME 94 FL (80-99); PLATELET COUNT 136 K/UL (150-450); RED BLOOD COUNT 3.81 M/UL (4.70-6.10)
[2018-06-06 06:41] LABS: ALANINE AMINOTRANSFERASE 83 U/L (12-78); ALBUMIN 2.2 G/DL (3.4-5.0); ALBUMIN/GLOBULIN RATIO 0.5 (1.0-2.7); ALKALINE PHOSPHATASE 70 U/L (46-116); ANION GAP 3 mmol/L (5-15); ASPARTATE AMINO TRANSFERASE 56 U/L (15-37); BILIRUBIN,TOTAL 1.3 MG/DL (0.2-1.0); BLOOD UREA NITROGEN 30 mg/dL (7-18); CALCIUM 9.1 MG/DL (8.5-10.1); CARBON DIOXIDE 38 MMOL/L (21-32); CHLORIDE 100 MMOL/L (98-107); CHOLESTEROL 112 MG/DL (< 200); CREATININE 1.2 MG/DL (0.55-1.30); HDL CHOLESTEROL 51 MG/DL (40-60); SODIUM 141 MMOL/L (136-145); TRIGLYCERIDES 54 MG/DL (30-150)
[2018-06-06 06:43] LABS: BILIRUBIN,DIRECT 0.8 MG/DL (0.0-0.3)
[2018-06-06 06:54] LABS: CREATINE KINASE 221 U/L (26-308)
[2018-06-06 06:55] LABS: PHOSPHORUS 4.2 MG/DL (2.5-4.9)
--- NOTE | 2018-06-06 07:30 | NUR ---
RESPIRATORY NOTE: Patient received ventilated on BiPAP with current ordered settings. Full face mask taken off briefly to asses facial skin and to relief facial pressure. Skin is intact with no redness or skin breakdown noted. Bilateral diminished breath sounds noted. BiPAP alarms are audible and functional. Cleaned face and administered oral care. Face re-taped with foam tape and placed on full face mask. Inline breathing treatment given with no adverse reaction. Patient appears comfortable at this time. Will continue to monitor.
--- NOTE | 2018-06-06 07:35 | NUR ---
NURSE NOTES: Report received from Yoselin Macdonald RN.Pt resting in bed asleep,noted no resp distress on BIPAP 15/5 FIO2 30%,no signs of pain or discomfort SR on the monitor, Pt NPO ,skin warm and dry with IV site to LFA intact ,condom cath in placed ,SR up x2 HOB elevated bed lock in lowest position,will; continue with plan of care.
[2018-06-06 08:00] VITALS: BP 103/67
--- NOTE | 2018-06-06 08:10 | NUR ---
HAND-OFF: Report given to GENNY Pompa. Observed pt sleeping on the bed. No distress noted at this time
--- NOTE | 2018-06-06 08:33 | Diagnostic Imaging Report ---
Indication: Acute renal failure, abnormal liver function tests. Technique: Pineda-scale and duplex images of the upper abdomen were obtained. Doppler interrogation of the hepatic and pancreatic vessels was performed Comparison: none Findings: Gallbladder is unremarkable, without stones, wall thickening, nor pericholecystic fluid. Sonographic Lopez's sign is negative. Common bile duct measures 5 mm in diameter. No intrahepatic biliary ductal dilatation. Liver demonstrates normal echogenicity, no focal abnormality. Portal vein and hepatic veins are patent. Pancreas is unremarkable. Spleen is unremarkable. Left kidney measures 10.5 cm in length. Right kidney measures 10.8 cm length. Both kidneys demonstrate slightly increased echogenicity. There is no hydronephrosis. Right kidney demonstrates a small cyst . Non-aneurysmal abdominal aorta . Impression: Slightly increased renal echogenicity, consistent with medical renal disease. Negative for hydronephrosis Negative for gallstones or dilated ducts Incidental finding small right renal cyst
[2018-06-06] MEDS: Solu-MEDROL 40mg Inj IVP SCH ×2 (09:58→21:35)
[2018-06-06] MEDS: cefTRIAXone 1 GM in D5W 55 ML IVPB SCH (10:00)
[2018-06-06] MEDS: Doxycycline Hyclate 100 MG in D5W 110 ML IV SCH ×2 (10:04→21:35)
[2018-06-06] MEDS: Heparin 5000 units/ml inj SUBQ SCH ×2 (10:06→21:37)
[2018-06-06 12:03] VITALS: BP 99/62
--- NOTE | 2018-06-06 12:18 | Infectious Diseases Prog Note ---
Assessment/Plan Assessment/Plan A; COPD exacerbation Legs cellulitis Respiratory failure Elevated transaminase Cachexia Renal failure P: Continue Vancomycin & Rocephin Will f/u cultures Subjective ROS Limited/Unobtainable: Yes Constitutional: Reports: no symptoms Respiratory: Reports: shortness of breath Gastrointestinal/Abdominal: Reports: no symptoms Genitourinary: Reports: no symptoms Allergies: Coded Allergies: No Known Allergies (Unverified , 06/05/18) Objective Vital Signs Last 24 Hour Vital Signs Date Time Temp Pulse Resp B/P (MAP) Pulse Ox O2 Delivery O2 Flow Rate FiO2 06/06/18 12:05 Bi-pap 06/06/18 12:03 97.8 88 23 99/62 (74) 96 06/06/18 12:01 30 06/06/18 11:09 Bi-pap 06/06/18 11:09 Bi-pap 06/06/18 11:08 86 19 95 Full Face 30 06/06/18 09:16 85 24 96 Facial 30 06/06/18 08:00 Bi-pap 06/06/18 08:00 98.8 90 16 103/67 (79) 96 06/06/18 07:51 88 18 98 Bi-pap 30 06/06/18 07:41 86 17 96 Bi-pap 30 06/06/18 07:35 83 06/06/18 07:25 86 17 95 Facial 30 06/06/18 04:43 79 30 97 Full Face 30 06/06/18 04:00 Bi-pap 06/06/18 04:00 98.9 80 21 98/72 (81) 97 06/06/18 04:00 85 06/06/18 03:13 92 26 97 Bi-pap 30 06/06/18 03:10 86 25 96 Full Face 30 06/06/18 03:00 85 25 95 Bi-pap 30 06/06/18 01:14 118 19 98 Full Face 30 06/06/18 00:00 Bi-pap 06/06/18 00:00 81 06/06/18 00:00 99.1 80 18 100/67 (78) 100 06/05/18 23:34 102 17 99 Bi-pap 30 06/05/18 23:23 94 17 94 Bi-pap 30 06/05/18 22:34 102 16 96 Facial 30 06/05/18 22:00 100 16 94 Facial 30 06/05/18 20:00 83 06/05/18 20:00 Bi-pap 06/05/18 20:00 30 06/05/18 20:00 97.9 77 18 91/60 (70) 98 06/05/18 19:18 105 14 Bi-pap 30 06/05/18 19:08 105 20 95 Facial 30 06/05/18 19:07 98 14 95 Bi-pap 30 06/05/18 17:43 98 20 98 Facial 30 06/05/18 16:00 Bi-pap 06/05/18 16:00 97.9 80 18 90/56 (67) 100 06/05/18 15:57 85 06/05/18 15:31 76 16 Bi-pap 30 06/05/18 15:26 101 19 98 Facial 30 06/05/18 15:10 76 16 Bi-pap 30 06/05/18 14:42 76 16 98 Facial 30 06/05/18 13:47 105/67 (80) 06/05/18 13:00 84 06/05/18 12:50 Bi-pap 06/05/18 12:50 30 06/05/18 12:50 97.9 83 25 96/69 (78) 94 06/05/18 12:30 98.0 89 22 115/76 94 Bi-pap 30 Height (Feet): 5 Height (Inches): 8.00 Weight (Pounds): 113 General Appearance: cachetic HEENT: mucous membranes moist Respiratory/Chest: decreased breath sounds, other - on BIPAP Abdomen: soft, non tender Extremities: other - pedal edema Skin: ulcers, other - blisters , shallow ulcer on legs left more than right Neurologic/Psychiatric: alert, responsive Microbiology Date/Time Source Procedure Growth Status 06/05/18 11:00 Rectum Received Laboratory Tests Test 06/05/18 15:48 06/05/18 18:50 06/06/18 03:45 Arterial Blood pH 7.364 (7.350-7.450) Arterial Blood Partial Pressure CO2 66.1 mmHg (35.0-45.0) *H Arterial Blood Partial Pressure O2 83.2 mmHg (75.0-100.0) Arterial Blood HCO3 36.8 mmol/L (22.0-26.0) H Arterial Blood Oxygen Saturation 94.9 % (95-100) L Arterial Blood Base Excess 9.1 (-2-2) *H Delon Test Positive D-Dimer 1.42 mg/L FEU (0.00-0.49) H Troponin I 0.056 ng/mL (0.000-0.056) 0.043 ng/mL (0.000-0.056) White Blood Count 10.0 K/UL (4.8-10.8) Red Blood Count 3.81 M/UL (4.70-6.10) L Hemoglobin 11.4 G/DL (14.2-18.0) L Hematocrit 36.0 % (42.0-52.0) L Mean Corpuscular Volume 94 FL (80-99) Mean Corpuscular Hemoglobin 29.8 PG (27.0-31.0) Mean Corpuscular Hemoglobin Concent 31.6 G/DL (32.0-36.0) L Red Cell Distribution Width 16.0 % (11.6-14.8) H Platelet Count 136 K/UL (150-450) L Mean Platelet Volume 8.8 FL (6.5-10.1) Neutrophils (%) (Auto) % (45.0-75.0) Lymphocytes (%) (Auto) % (20.0-45.0) Monocytes (%) (Auto) % (1.0-10.0) Eosinophils (%) (Auto) % (0.0-3.0) Basophils (%) (Auto) % (0.0-2.0) Differential Total Cells Counted 100 Neutrophils % (Manual) 79 % (45-75) H Lymphocytes % (Manual) 4 % (20-45) L Monocytes % (Manual) 7 % (1-10) Eosinophils % (Manual) 0 % (0-3) Basophils % (Manual) 0 % (0-2) Band Neutrophils 10 % (0-8) H Platelet Estimate Decreased L Platelet Morphology Normal Hypochromasia 1+ Anisocytosis 1+ Sodium Level 141 MMOL/L (136-145) Potassium Level 4.0 MMOL/L (3.5-5.1) Chloride Level 100 MMOL/L (98-107) Carbon Dioxide Level 38 MMOL/L (21-32) H Anion Gap 3 mmol/L (5-15) L Blood Urea Nitrogen 30 mg/dL (7-18) H Creatinine 1.2 MG/DL (0.55-1.30) Estimat Glomerular Filtration Rate mL/min (>60) Glucose Level 99 MG/DL (74-106) Lactic Acid Level 1.70 mmol/L (0.4-2.0) Uric Acid 6.3 MG/DL (2.6-7.2) Calcium Level 9.1 MG/DL (8.5-10.1) Phosphorus Level 4.2 MG/DL (2.5-4.9) Magnesium Level 2.0 MG/DL (1.8-2.4) Total Bilirubin 1.3 MG/DL (0.2-1.0) H Direct Bilirubin 0.8 MG/DL (0.0-0.3) H Aspartate Amino Transf (AST/SGOT) 56 U/L (15-37) H Alanine Aminotransferase (ALT/SGPT) 83 U/L (12-78) H Alkaline Phosphatase 70 U/L (46-116) Total Creatine Kinase 221 U/L (26-308) C-Reactive Protein, Quantitative 45.4 mg/dL (0.00-0.90) H Pro-B-Type Natriuretic Peptide 4534 pg/mL (0-125) H Total Protein 6.8 G/DL (6.4-8.2) Albumin 2.2 G/DL (3.4-5.0) L Globulin 4.6 g/dL Albumin/Globulin Ratio 0.5 (1.0-2.7) L Triglycerides Level 54 MG/DL (30-150) Cholesterol Level 112 MG/DL (< 200) LDL Cholesterol 45 mg/dL (<100) HDL Cholesterol 51 MG/DL (40-60) Cholesterol/HDL Ratio 2.2 (3.3-4.4) L Thyroid Stimulating Hormone (TSH) 1.711 uiU/mL (0.358-3.740) Hepatitis A IgM Antibody Pending Hepatitis B Surface Antigen Pending Hepatitis B Core IgM Antibody Pending Hepatitis C Antibody Pending Current Medications Medications (Trade) Dose Ordered Sig/Brittani Route PRN Reason Start Time Stop Time Status Last Admin Dose Admin Albuterol/ Ipratropium (Albuterol/ Ipratropium) 3 ml Q4HRT HHN 06/05/18 15:00 06/10/18 14:59 06/06/18 07:41 Ceftriaxone Sodium 1 gm/ Dextrose 55 ml @ 110 mls/hr DAILY IVPB 06/05/18 15:00 06/12/18 14:59 06/06/18 10:00 Doxycycline Hyclate 100 mg/ Dextrose 110 ml @ 110 mls/hr Q12HR IV 06/05/18 18:00 06/12/18 17:59 06/06/18 10:04 Furosemide (Lasix) 40 mg EVERY 12 HOURS IV 06/05/18 12:00 07/05/18 11:59 06/06/18 09:58 Heparin Sodium (Porcine) (Heparin 5000 units/ml) 5,000 units EVERY 12 HOURS SUBQ 06/05/18 21:00 07/05/18 20:59 06/06/18 10:06 Methylprednisolone Sodium Succinate (Solu-MEDROL) 40 mg EVERY 12 HOURS IVP 06/05/18 15:00 07/05/18 14:59 06/06/18 09:58 Pantoprazole (Protonix) 40 mg DAILY ORAL 06/06/18 09:00 07/06/18 08:59 06/06/18 09:58 Vancomycin HCl (Vanco rx to dose) 1 ea DAILY PRN MISC Per rx protocol 06/05/18 14:00 07/05/18 13:59 Vancomycin HCl 500 mg/Dextrose 110 ml @ 110 mls/hr Q24H IVPB 06/06/18 16:00 06/11/18 15:59 William Avalos MD Jun 06, 2018 12:18
--- NOTE | 2018-06-06 13:15 | Consultation ---
History of Present Illness General Date patient seen: Jun 06, 2018 Chief Complaint: Pain Present Illness HPI 72-year-old gentleman who has history of chronic COPD on home oxygen. The pt has mmp and is anxious and depressed. The pt is depressed, anhedonia and low energy. the pt has decompensated since the . The pt is is withdrawn and low energy. the pt has no si/hi Allergies: Coded Allergies: No Known Allergies (Unverified , 06/05/18) Medication History No Active Prescriptions or Reported Meds Patient History Limited by: medical condition History Provided By: Patient, Medical Record Healthcare decision maker Resuscitation status Full Code Advanced Directive on File Past Medical/Surgical History Past Medical/Surgical History: (1) Emphysema lung (2) Left leg cellulitis (3) Pedal edema (4) COPD exacerbation Review of Systems Psychiatric: Reports: prior hx, anxiety, depressed feelings Physical Exam General Appearance: alert Neurologic: oriented x 3, responsive, depressed affect Last 24 Hour Vital Signs Date Time Temp Pulse Resp B/P (MAP) Pulse Ox O2 Delivery O2 Flow Rate FiO2 06/06/18 12:05 Bi-pap 06/06/18 12:03 97.8 88 23 99/62 (74) 96 06/06/18 12:01 30 06/06/18 11:09 Bi-pap 06/06/18 11:09 Bi-pap 06/06/18 11:08 86 19 95 Full Face 30 06/06/18 09:16 85 24 96 Facial 30 06/06/18 08:00 Bi-pap 06/06/18 08:00 98.8 90 16 103/67 (79) 96 06/06/18 07:51 88 18 98 Bi-pap 30 06/06/18 07:41 86 17 96 Bi-pap 30 06/06/18 07:35 83 06/06/18 07:25 86 17 95 Facial 30 06/06/18 04:43 79 30 97 Full Face 30 06/06/18 04:00 Bi-pap 06/06/18 04:00 98.9 80 21 98/72 (81) 97 06/06/18 04:00 85 06/06/18 03:13 92 26 97 Bi-pap 30 06/06/18 03:10 86 25 96 Full Face 30 06/06/18 03:00 85 25 95 Bi-pap 30 06/06/18 01:14 118 19 98 Full Face 30 06/06/18 00:00 Bi-pap 06/06/18 00:00 81 06/06/18 00:00 99.1 80 18 100/67 (78) 100 06/05/18 23:34 102 17 99 Bi-pap 30 06/05/18 23:23 94 17 94 Bi-pap 30 06/05/18 22:34 102 16 96 Facial 30 06/05/18 22:00 100 16 94 Facial 30 06/05/18 20:00 83 06/05/18 20:00 Bi-pap 06/05/18 20:00 30 06/05/18 20:00 97.9 77 18 91/60 (70) 98 06/05/18 19:18 105 14 Bi-pap 30 06/05/18 19:08 105 20 95 Facial 30 06/05/18 19:07 98 14 95 Bi-pap 30 06/05/18 17:43 98 20 98 Facial 30 06/05/18 16:00 Bi-pap 06/05/18 16:00 97.9 80 18 90/56 (67) 100 06/05/18 15:57 85 06/05/18 15:31 76 16 Bi-pap 30 06/05/18 15:26 101 19 98 Facial 30 06/05/18 15:10 76 16 Bi-pap 30 06/05/18 14:42 76 16 98 Facial 30 06/05/18 13:47 105/67 (80) Intake and Output 06/05/18 06/06/18 19:00 07:00 Intake Total 1532.416 ml 110 ml Output Total 300 ml Balance 1532.416 ml -190 ml Intake IV Total 1532.416 ml 110 ml Output Urine Total 300 ml # Voids 3 1 Laboratory Tests Test 06/05/18 15:48 06/05/18 18:50 06/06/18 03:45 06/06/18 12:30 Arterial Blood pH 7.364 (7.350-7.450) 7.410 (7.350-7.450) Arterial Blood Partial Pressure CO2 66.1 mmHg (35.0-45.0) *H 66.7 mmHg (35.0-45.0) *H Arterial Blood Partial Pressure O2 83.2 mmHg (75.0-100.0) 76.3 mmHg (75.0-100.0) Arterial Blood HCO3 36.8 mmol/L (22.0-26.0) H 41.6 mmol/L (22.0-26.0) *H Arterial Blood Oxygen Saturation 94.9 % (95-100) L 94.8 % (95-100) L Arterial Blood Base Excess 9.1 (-2-2) *H 14.2 (-2-2) *H Delon Test Positive Positive D-Dimer 1.42 mg/L FEU (0.00-0.49) H Troponin I 0.056 ng/mL (0.000-0.056) 0.043 ng/mL (0.000-0.056) White Blood Count 10.0 K/UL (4.8-10.8) Red Blood Count 3.81 M/UL (4.70-6.10) L Hemoglobin 11.4 G/DL (14.2-18.0) L Hematocrit 36.0 % (42.0-52.0) L Mean Corpuscular Volume 94 FL (80-99) Mean Corpuscular Hemoglobin 29.8 PG (27.0-31.0) Mean Corpuscular Hemoglobin Concent 31.6 G/DL (32.0-36.0) L Red Cell Distribution Width 16.0 % (11.6-14.8) H Platelet Count 136 K/UL (150-450) L Mean Platelet Volume 8.8 FL (6.5-10.1) Neutrophils (%) (Auto) % (45.0-75.0) Lymphocytes (%) (Auto) % (20.0-45.0) Monocytes (%) (Auto) % (1.0-10.0) Eosinophils (%) (Auto) % (0.0-3.0) Basophils (%) (Auto) % (0.0-2.0) Differential Total Cells Counted 100 Neutrophils % (Manual) 79 % (45-75) H Lymphocytes % (Manual) 4 % (20-45) L Monocytes % (Manual) 7 % (1-10) Eosinophils % (Manual) 0 % (0-3) Basophils % (Manual) 0 % (0-2) Band Neutrophils 10 % (0-8) H Platelet Estimate Decreased L Platelet Morphology Normal Hypochromasia 1+ Anisocytosis 1+ Sodium Level 141 MMOL/L (136-145) Potassium Level 4.0 MMOL/L (3.5-5.1) Chloride Level 100 MMOL/L (98-107) Carbon Dioxide Level 38 MMOL/L (21-32) H Anion Gap 3 mmol/L (5-15) L Blood Urea Nitrogen 30 mg/dL (7-18) H Creatinine 1.2 MG/DL (0.55-1.30) Estimat Glomerular Filtration Rate mL/min (>60) Glucose Level 99 MG/DL (74-106) Lactic Acid Level 1.70 mmol/L (0.4-2.0) Uric Acid 6.3 MG/DL (2.6-7.2) Calcium Level 9.1 MG/DL (8.5-10.1) Phosphorus Level 4.2 MG/DL (2.5-4.9) Magnesium Level 2.0 MG/DL (1.8-2.4) Total Bilirubin 1.3 MG/DL (0.2-1.0) H Direct Bilirubin 0.8 MG/DL (0.0-0.3) H Aspartate Amino Transf (AST/SGOT) 56 U/L (15-37) H Alanine Aminotransferase (ALT/SGPT) 83 U/L (12-78) H Alkaline Phosphatase 70 U/L (46-116) Total Creatine Kinase 221 U/L (26-308) C-Reactive Protein, Quantitative 45.4 mg/dL (0.00-0.90) H Pro-B-Type Natriuretic Peptide 4534 pg/mL (0-125) H Total Protein 6.8 G/DL (6.4-8.2) Albumin 2.2 G/DL (3.4-5.0) L Globulin 4.6 g/dL Albumin/Globulin Ratio 0.5 (1.0-2.7) L Triglycerides Level 54 MG/DL (30-150) Cholesterol Level 112 MG/DL (< 200) LDL Cholesterol 45 mg/dL (<100) HDL Cholesterol 51 MG/DL (40-60) Cholesterol/HDL Ratio 2.2 (3.3-4.4) L Thyroid Stimulating Hormone (TSH) 1.711 uiU/mL (0.358-3.740) Hepatitis A IgM Antibody Pending Hepatitis B Surface Antigen Pending Hepatitis B Core IgM Antibody Pending Hepatitis C Antibody Pending Height (Feet): 5 Height (Inches): 8.00 Weight (Pounds): 113 Medications Current Medications Medications (Trade) Dose Ordered Sig/Brittani Route PRN Reason Start Time Stop Time Status Last Admin Dose Admin Albuterol/ Ipratropium (Albuterol/ Ipratropium) 3 ml Q4HRT HHN 06/05/18 15:00 06/10/18 14:59 06/06/18 07:41 Ceftriaxone Sodium 1 gm/ Dextrose 55 ml @ 110 mls/hr DAILY IVPB 06/05/18 15:00 06/12/18 14:59 06/06/18 10:00 Doxycycline Hyclate 100 mg/ Dextrose 110 ml @ 110 mls/hr Q12HR IV 06/05/18 18:00 06/12/18 17:59 06/06/18 10:04 Furosemide (Lasix) 40 mg EVERY 12 HOURS IV 06/05/18 12:00 07/05/18 11:59 06/06/18 09:58 Heparin Sodium (Porcine) (Heparin 5000 units/ml) 5,000 units EVERY 12 HOURS SUBQ 06/05/18 21:00 07/05/18 20:59 06/06/18 10:06 Methylprednisolone Sodium Succinate (Solu-MEDROL) 40 mg EVERY 12 HOURS IVP 06/05/18 15:00 07/05/18 14:59 06/06/18 09:58 Pantoprazole (Protonix) 40 mg DAILY ORAL 06/06/18 09:00 07/06/18 08:59 06/06/18 09:58 Vancomycin HCl (Vanco rx to dose) 1 ea DAILY PRN MISC Per rx protocol 06/05/18 14:00 07/05/18 13:59 Vancomycin HCl 500 mg/Dextrose 110 ml @ 110 mls/hr Q24H IVPB 06/06/18 16:00 06/11/18 15:59 Assessment/Plan Problem List: (1) Major depressive disorder ICD Codes: F32.9 - Major depressive disorder, single episode, unspecified SNOMED: 475886925 Status: stable Assessment/Plan Celexa 20mg qam Provided st/Destiny Harley MD Jun 06, 2018 13:15
--- NOTE | 2018-06-06 13:53 | Cardiac Electrophysiology PN ---
Assessment/Plan Assessment/Plan 1. Severe bilateral lower extremity edema. BNP is also 7500. On Lasix 40 mg IV b.i.d. Lower extremity duplex no DVT. Echocardiogram pending 2. COPD exacerbation. On BiPAP. 3. Lower extremity cellulitis,on antibiotics. DW family and RN Subjective Subjective On BIPAP. Family at bedside. Objective Last 24 Hour Vital Signs Date Time Temp Pulse Resp B/P (MAP) Pulse Ox O2 Delivery O2 Flow Rate FiO2 06/06/18 13:16 80 19 95 Full Face 30 06/06/18 12:05 Bi-pap 06/06/18 12:03 97.8 88 23 99/62 (74) 96 06/06/18 12:01 30 06/06/18 11:54 84 06/06/18 11:09 Bi-pap 06/06/18 11:09 Bi-pap 06/06/18 11:08 86 19 95 Full Face 30 06/06/18 09:16 85 24 96 Facial 30 06/06/18 08:00 Bi-pap 06/06/18 08:00 98.8 90 16 103/67 (79) 96 06/06/18 07:51 88 18 98 Bi-pap 30 06/06/18 07:41 86 17 96 Bi-pap 30 06/06/18 07:35 83 06/06/18 07:25 86 17 95 Facial 30 06/06/18 04:43 79 30 97 Full Face 30 06/06/18 04:00 Bi-pap 06/06/18 04:00 98.9 80 21 98/72 (81) 97 06/06/18 04:00 85 06/06/18 03:13 92 26 97 Bi-pap 30 06/06/18 03:10 86 25 96 Full Face 30 06/06/18 03:00 85 25 95 Bi-pap 30 06/06/18 01:14 118 19 98 Full Face 30 06/06/18 00:00 Bi-pap 06/06/18 00:00 81 06/06/18 00:00 99.1 80 18 100/67 (78) 100 18 23:34 102 17 99 Bi-pap 30 06/05/18 23:23 94 17 94 Bi-pap 30 06/05/18 22:34 102 16 96 Facial 30 06/05/18 22:00 100 16 94 Facial 30 06/05/18 20:00 83 06/05/18 20:00 Bi-pap 06/05/18 20:00 30 06/05/18 20:00 97.9 77 18 91/60 (70) 98 06/05/18 19:18 105 14 Bi-pap 30 06/05/18 19:08 105 20 95 Facial 30 06/05/18 19:07 98 14 95 Bi-pap 30 06/05/18 17:43 98 20 98 Facial 30 06/05/18 16:00 Bi-pap 06/05/18 16:00 97.9 80 18 90/56 (67) 100 06/05/18 15:57 85 06/05/18 15:31 76 16 Bi-pap 30 06/05/18 15:26 101 19 98 Facial 30 06/05/18 15:10 76 16 Bi-pap 30 06/05/18 14:42 76 16 98 Facial 30 Intake and Output 06/05/18 06/06/18 19:00 07:00 Intake Total 1532.416 ml 110 ml Output Total 300 ml Balance 1532.416 ml -190 ml Intake IV Total 1532.416 ml 110 ml Output Urine Total 300 ml # Voids 3 1 Laboratory Tests Test 06/05/18 15:48 06/05/18 18:50 06/06/18 03:45 06/06/18 12:30 Arterial Blood pH 7.364 (7.350-7.450) 7.410 (7.350-7.450) Arterial Blood Partial Pressure CO2 66.1 mmHg (35.0-45.0) *H 66.7 mmHg (35.0-45.0) *H Arterial Blood Partial Pressure O2 83.2 mmHg (75.0-100.0) 76.3 mmHg (75.0-100.0) Arterial Blood HCO3 36.8 mmol/L (22.0-26.0) H 41.6 mmol/L (22.0-26.0) *H Arterial Blood Oxygen Saturation 94.9 % (95-100) L 94.8 % (95-100) L Arterial Blood Base Excess 9.1 (-2-2) *H 14.2 (-2-2) *H Delon Test Positive Positive D-Dimer 1.42 mg/L FEU (0.00-0.49) H Troponin I 0.056 ng/mL (0.000-0.056) 0.043 ng/mL (0.000-0.056) White Blood Count 10.0 K/UL (4.8-10.8) Red Blood Count 3.81 M/UL (4.70-6.10) L Hemoglobin 11.4 G/DL (14.2-18.0) L Hematocrit 36.0 % (42.0-52.0) L Mean Corpuscular Volume 94 FL (80-99) Mean Corpuscular Hemoglobin 29.8 PG (27.0-31.0) Mean Corpuscular Hemoglobin Concent 31.6 G/DL (32.0-36.0) L Red Cell Distribution Width 16.0 % (11.6-14.8) H Platelet Count 136 K/UL (150-450) L Mean Platelet Volume 8.8 FL (6.5-10.1) Neutrophils (%) (Auto) % (45.0-75.0) Lymphocytes (%) (Auto) % (20.0-45.0) Monocytes (%) (Auto) % (1.0-10.0) Eosinophils (%) (Auto) % (0.0-3.0) Basophils (%) (Auto) % (0.0-2.0) Differential Total Cells Counted 100 Neutrophils % (Manual) 79 % (45-75) H Lymphocytes % (Manual) 4 % (20-45) L Monocytes % (Manual) 7 % (1-10) Eosinophils % (Manual) 0 % (0-3) Basophils % (Manual) 0 % (0-2) Band Neutrophils 10 % (0-8) H Platelet Estimate Decreased L Platelet Morphology Normal Hypochromasia 1+ Anisocytosis 1+ Sodium Level 141 MMOL/L (136-145) Potassium Level 4.0 MMOL/L (3.5-5.1) Chloride Level 100 MMOL/L (98-107) Carbon Dioxide Level 38 MMOL/L (21-32) H Anion Gap 3 mmol/L (5-15) L Blood Urea Nitrogen 30 mg/dL (7-18) H Creatinine 1.2 MG/DL (0.55-1.30) Estimat Glomerular Filtration Rate mL/min (>60) Glucose Level 99 MG/DL (74-106) Lactic Acid Level 1.70 mmol/L (0.4-2.0) Uric Acid 6.3 MG/DL (2.6-7.2) Calcium Level 9.1 MG/DL (8.5-10.1) Phosphorus Level 4.2 MG/DL (2.5-4.9) Magnesium Level 2.0 MG/DL (1.8-2.4) Total Bilirubin 1.3 MG/DL (0.2-1.0) H Direct Bilirubin 0.8 MG/DL (0.0-0.3) H Aspartate Amino Transf (AST/SGOT) 56 U/L (15-37) H Alanine Aminotransferase (ALT/SGPT) 83 U/L (12-78) H Alkaline Phosphatase 70 U/L (46-116) Total Creatine Kinase 221 U/L (26-308) C-Reactive Protein, Quantitative 45.4 mg/dL (0.00-0.90) H Pro-B-Type Natriuretic Peptide 4534 pg/mL (0-125) H Total Protein 6.8 G/DL (6.4-8.2) Albumin 2.2 G/DL (3.4-5.0) L Globulin 4.6 g/dL Albumin/Globulin Ratio 0.5 (1.0-2.7) L Triglycerides Level 54 MG/DL (30-150) Cholesterol Level 112 MG/DL (< 200) LDL Cholesterol 45 mg/dL (<100) HDL Cholesterol 51 MG/DL (40-60) Cholesterol/HDL Ratio 2.2 (3.3-4.4) L Thyroid Stimulating Hormone (TSH) 1.711 uiU/mL (0.358-3.740) Hepatitis A IgM Antibody Pending Hepatitis B Surface Antigen Pending Hepatitis B Core IgM Antibody Pending Hepatitis C Antibody Pending Microbiology Date/Time Source Procedure Growth Status 06/05/18 11:00 Rectum Received Objective HEAD AND NECK: Mild JVD. LUNGS: Decreased breath sounds. CARDIOVASCULAR: Regular S1 and S2 with no gallop. ABDOMEN: Soft. EXTREMITIES: Bilateral 2+ pitting edema and cellulitis. Lv Campbell MD Jun 06, 2018 13:53
[2018-06-06] MEDS ORDERED: Citalopram Hydrobromide 10mg Tab ORAL SCH (14:30)
--- NOTE | 2018-06-06 15:48 | NUR ---
RD ASSESSMENT & RECOMMENDATIONS SEE CARE ACTIVITY FOR COMPLETE ASSESSMENT DAILY ESTIMATED NEEDS: Needs based on Pulmonary, cachexia/ 60kg 25-30 kcals/kg 6135-7955 total kcals 1-1.5 g protein/kg 60-90 g total protein 25-30 mL/kg 9694-0020 total fluid mLs NUTRITION DIAGNOSIS: * Altered nutrition related lab values R/T respiratory status as evidenced by critically elev PCO2 and HCO3, pt on BIPAP at this time, NPO. CURRENT DIET:NPO PO DIET RECOMMENDATIONS: Initiate diet per MD -> LOW NA/ texture as tolerated ADDITIONAL RECOMMENDATIONS: * CALIBRATED bedscale wt for accurate CBW -> Conflicting EMR wt vs bedscale wt * MVI x 1 and Diego 1pkt BID for skin integrity * Monitor NPO status- on BIPAP at this time * Monitor lytes daily, replete as needed- on lasix
[2018-06-06] MEDS: Vancomycin 500mg/D5W 110ml IVPB SCH ×2 (15:50)
[2018-06-06 16:00] VITALS: BP 115/71
--- NOTE | 2018-06-06 16:14 | NUR ---
CASE MANAGEMENT: REVIEW 72/M BIBA FROM HOME CC: PAIN SI: COPD EXACERBATION T 99.1 HR 109 RR 20 BP 99/72 SAT 99% NC/2L PH 7.299 PCO2 66.0 PO2 53.7 HCO3 31.7 O2 SAT 82.5 IS: ALBUTEROL HHN X1 NS IVF BOLUS X1 UNASYN IV X1 SOLU MEDROL IV X1 INTERQUAL CRITERIA MET: PATIENT ADMITTED TO STEP DOWN UNIT 06/05/2018 DCP: PATIENT IS FROM HOME
--- NOTE | 2018-06-06 17:00 | NUR ---
NURSE NOTES: Pt had 1 BM kept dry and clean,pt stable,Dr Ahumada at bedside,ordered to give pt a [facility] soft diet but with supervision of RN.
--- NOTE | 2018-06-06 17:11 | Cardiology Report ---
APPROVED REPORT EXAM: Two-dimensional and M-mode echocardiogram with Doppler and color Doppler. INDICATION SOB M-Mode DIMENSIONS IVSd1.0 (0.7-1.1cm)Left Atrium (MM)2.4 (1.6-4.0cm) LVDd4.6 (3.5-5.6cm)Aortic Root3.3 (2.0-3.7cm) PWd0.8 (0.7-1.1cm)Aortic Cusp Exc.2.0 (1.5-2.0cm) LVDs3.0 (2.5-4.0cm) PWs0.9 cm Technically difficult study due to pts position. Normal left ventricular chamber size, systolic function and wall motion to extent visualized. Left ventricular ejection fraction estimated to be 50- 55 %. No evidence of left ventricular hypertrophy. No evidence of pericardial effusion. Mild left atrial enlargement. Right atrial size at upper limits of normal. Right ventricular chamber size is within normal limits. Focal aortic valve sclerosis with adequate cusp excursion. Thickened mitral valve leaflets with normal excursion. Mitral annulus and aortic root calcification. Normal pulmonic valve structure. Normal tricuspid valve structure. IVC dilated at 2.5 cm without physiologic collapse suggestive of increased RA pressure. A color flow and spectral Doppler study was performed and revealed: Moderate aortic regurgitation. Trace mitral regurgitation. Mitral diastolic velocities suggest reduced left ventricular relaxation c/w mild LV diastolic dysfunction (Grade I). Moderate to severe tricuspid regurgitation. Tricuspid systolic velocities suggests peak right ventricular systolic pressure of 88 mmHg, consistent with severe pulmonary hypertension. Mild to moderate pulmonic regurgitation present.
--- NOTE | 2018-06-06 19:32 | NUR ---
HAND-OFF: Report given to Ysoelin Macdonald RN.
[2018-06-06 20:00] VITALS: BP 95/62
--- NOTE | 2018-06-06 21:33 | General Progress Note ---
Assessment/Plan Problem List: (1) Pedal edema ICD Codes: R60.0 - Localized edema SNOMED: 431616014 (2) COPD exacerbation ICD Codes: J44.1 - Chronic obstructive pulmonary disease with (acute) exacerbation SNOMED: 295028502 (3) Emphysema lung ICD Codes: J43.9 - Emphysema, unspecified SNOMED: 56182755 (4) Left leg cellulitis ICD Codes: L03.116 - Cellulitis of left lower limb SNOMED: 121616897 Status: progressing Assessment/Plan resp insuff copd sepsis cellulitis will need snf for abx and pt/ot wt loss still requires bipap elev LFT Subjective Respiratory: Reports: shortness of breath Allergies: Coded Allergies: No Known Allergies (Unverified , 06/05/18) Objective Last 24 Hour Vital Signs Date Time Temp Pulse Resp B/P (MAP) Pulse Ox O2 Delivery O2 Flow Rate FiO2 06/06/18 21:20 76 17 96 Full Face 30 06/06/18 20:00 97.5 78 16 95/62 (73) 95 06/06/18 19:19 76 19 98 Bi-pap 30 06/06/18 19:06 79 19 97 Bi-pap 30 06/06/18 19:01 79 19 97 Full Face 30 06/06/18 17:28 30 06/06/18 17:15 78 17 95 Full Face 30 06/06/18 16:00 98.5 106 13 115/71 (86) 96 06/06/18 16:00 Bi-pap 06/06/18 15:43 84 20 95 Bi-pap 30 06/06/18 15:33 81 20 94 Bi-pap 30 06/06/18 15:28 81 20 94 Full Face 30 06/06/18 15:20 84 06/06/18 13:16 80 19 95 Full Face 30 06/06/18 12:05 Bi-pap 06/06/18 12:03 97.8 88 23 99/62 (74) 96 06/06/18 12:01 30 06/06/18 11:54 84 06/06/18 11:09 Bi-pap 06/06/18 11:09 Bi-pap 06/06/18 11:08 86 19 95 Full Face 30 06/06/18 09:16 85 24 96 Facial 30 06/06/18 08:00 Bi-pap 06/06/18 08:00 98.8 90 16 103/67 (79) 96 06/06/18 07:51 88 18 98 Bi-pap 30 06/06/18 07:41 86 17 96 Bi-pap 30 06/06/18 07:35 83 06/06/18 07:25 86 17 95 Facial 30 06/06/18 04:43 79 30 97 Full Face 30 06/06/18 04:00 Bi-pap 06/06/18 04:00 98.9 80 21 98/72 (81) 97 06/06/18 04:00 85 06/06/18 03:13 92 26 97 Bi-pap 30 06/06/18 03:10 86 25 96 Full Face 30 06/06/18 03:00 85 25 95 Bi-pap 30 06/06/18 01:14 118 19 98 Full Face 30 06/06/18 00:00 Bi-pap 06/06/18 00:00 81 06/06/18 00:00 99.1 80 18 100/67 (78) 100 06/05/18 23:34 102 17 99 Bi-pap 30 06/05/18 23:23 94 17 94 Bi-pap 30 06/05/18 22:34 102 16 96 Facial 30 06/05/18 22:00 100 16 94 Facial 30 Intake and Output 06/05/18 06/06/18 18:59 06:59 Intake Total 1532.416 ml 110 ml Output Total 300 ml Balance 1532.416 ml -190 ml IV Total 1532.416 ml 110 ml Output Urine Total 300 ml # Voids 3 1 Laboratory Tests 06/06/18 03:45: White Blood Count 10.0, Red Blood Count 3.81L, Hemoglobin 11.4L, Hematocrit 36.0L, Mean Corpuscular Volume 94, Mean Corpuscular Hemoglobin 29.8, Mean Corpuscular Hemoglobin Concent 31.6L, Red Cell Distribution Width 16.0H, Platelet Count 136L, Mean Platelet Volume 8.8, Neutrophils (%) (Auto) , Lymphocytes (%) (Auto) , Monocytes (%) (Auto) , Eosinophils (%) (Auto) , Basophils (%) (Auto) , Differential Total Cells Counted 100, Neutrophils % ( Manual) 79H, Lymphocytes % (Manual) 4L, Monocytes % (Manual) 7, Eosinophils % ( Manual) 0, Basophils % (Manual) 0, Band Neutrophils 10H, Platelet Estimate DecreasedL, Platelet Morphology Normal, Hypochromasia 1+, Anisocytosis 1+, Sodium Level 141, Potassium Level 4.0, Chloride Level 100, Carbon Dioxide Level 38H, Anion Gap 3L, Blood Urea Nitrogen 30H, Creatinine 1.2, Estimat Glomerular Filtration Rate , Glucose Level 99, Lactic Acid Level 1.70, Uric Acid 6.3, Calcium Level 9.1, Phosphorus Level 4.2, Magnesium Level 2.0, Total Bilirubin 1.3H, Direct Bilirubin 0.8H, Aspartate Amino Transf (AST/SGOT) 56H, Alanine Aminotransferase (ALT/SGPT) 83H, Alkaline Phosphatase 70, Total Creatine Kinase 221, Troponin I 0.043, C-Reactive Protein, Quantitative 45.4H, Pro-B-Type Natriuretic Peptide 4534H, Total Protein 6.8, Albumin 2.2L, Globulin 4.6, Albumin/Globulin Ratio 0.5L, Triglycerides Level 54, Cholesterol Level 112, LDL Cholesterol 45, HDL Cholesterol 51, Cholesterol/HDL Ratio 2.2L, Thyroid Stimulating Hormone (TSH) 1.711, Hepatitis A IgM Antibody [Pending], Hepatitis B Surface Antigen [Pending], Hepatitis B Core IgM Antibody [Pending], Hepatitis C Antibody [Pending] 06/06/18 12:30: Arterial Blood pH 7.410, Arterial Blood Partial Pressure CO2 66.7*H, Arterial Blood Partial Pressure O2 76.3, Arterial Blood HCO3 41.6*H, Arterial Blood Oxygen Saturation 94.8L, Arterial Blood Base Excess 14.2*H, Delon Test Positive Height (Feet): 5 Height (Inches): 8.00 Weight (Pounds): 113 EENT: PERRL/EOMI Neck: normal alignment Abdomen: non tender Oskar Nichole MD Jun 06, 2018 21:33
--- NOTE | 2018-06-06 22:43 | General Progress Note ---
Assessment/Plan Assessment/Plan Assessment - CHF - COPD - Edema, LE cellulitis Recommendations Careful po trial follow labs and exam abx per ID Subjective Allergies: Coded Allergies: No Known Allergies (Unverified , 06/05/18) Subjective above noted family at bedside (+) CPAP halo mask no food all day due to the mask patient/family believe he is able to eat and keep O2 level up Objective Last 24 Hour Vital Signs Date Time Temp Pulse Resp B/P (MAP) Pulse Ox O2 Delivery O2 Flow Rate FiO2 06/06/18 21:20 76 17 96 Full Face 30 06/06/18 20:00 97.5 78 16 95/62 (73) 95 06/06/18 19:19 76 19 98 Bi-pap 30 06/06/18 19:12 78 06/06/18 19:06 79 19 97 Bi-pap 30 06/06/18 19:01 79 19 97 Full Face 30 06/06/18 17:28 30 06/06/18 17:15 78 17 95 Full Face 30 06/06/18 16:00 98.5 106 13 115/71 (86) 96 06/06/18 16:00 Bi-pap 06/06/18 15:43 84 20 95 Bi-pap 30 06/06/18 15:33 81 20 94 Bi-pap 30 06/06/18 15:28 81 20 94 Full Face 30 06/06/18 15:20 84 06/06/18 13:16 80 19 95 Full Face 30 06/06/18 12:05 Bi-pap 06/06/18 12:03 97.8 88 23 99/62 (74) 96 06/06/18 12:01 30 06/06/18 11:54 84 06/06/18 11:09 Bi-pap 06/06/18 11:09 Bi-pap 06/06/18 11:08 86 19 95 Full Face 30 06/06/18 09:16 85 24 96 Facial 30 06/06/18 08:00 Bi-pap 06/06/18 08:00 98.8 90 16 103/67 (79) 96 06/06/18 07:51 88 18 98 Bi-pap 30 06/06/18 07:41 86 17 96 Bi-pap 30 06/06/18 07:35 83 06/06/18 07:25 86 17 95 Facial 30 06/06/18 04:43 79 30 97 Full Face 30 06/06/18 04:00 Bi-pap 06/06/18 04:00 98.9 80 21 98/72 (81) 97 06/06/18 04:00 85 06/06/18 03:13 92 26 97 Bi-pap 30 06/06/18 03:10 86 25 96 Full Face 30 06/06/18 03:00 85 25 95 Bi-pap 30 06/06/18 01:14 118 19 98 Full Face 30 06/06/18 00:00 Bi-pap 06/06/18 00:00 81 06/06/18 00:00 99.1 80 18 100/67 (78) 100 06/05/18 23:34 102 17 99 Bi-pap 30 06/05/18 23:23 94 17 94 Bi-pap 30 Intake and Output 06/05/18 06/06/18 18:59 06:59 Intake Total 1532.416 ml 110 ml Output Total 300 ml Balance 1532.416 ml -190 ml IV Total 1532.416 ml 110 ml Output Urine Total 300 ml # Voids 3 1 Laboratory Tests 06/06/18 03:45: White Blood Count 10.0, Red Blood Count 3.81L, Hemoglobin 11.4L, Hematocrit 36.0L, Mean Corpuscular Volume 94, Mean Corpuscular Hemoglobin 29.8, Mean Corpuscular Hemoglobin Concent 31.6L, Red Cell Distribution Width 16.0H, Platelet Count 136L, Mean Platelet Volume 8.8, Neutrophils (%) (Auto) , Lymphocytes (%) (Auto) , Monocytes (%) (Auto) , Eosinophils (%) (Auto) , Basophils (%) (Auto) , Differential Total Cells Counted 100, Neutrophils % ( Manual) 79H, Lymphocytes % (Manual) 4L, Monocytes % (Manual) 7, Eosinophils % ( Manual) 0, Basophils % (Manual) 0, Band Neutrophils 10H, Platelet Estimate DecreasedL, Platelet Morphology Normal, Hypochromasia 1+, Anisocytosis 1+, Sodium Level 141, Potassium Level 4.0, Chloride Level 100, Carbon Dioxide Level 38H, Anion Gap 3L, Blood Urea Nitrogen 30H, Creatinine 1.2, Estimat Glomerular Filtration Rate , Glucose Level 99, Lactic Acid Level 1.70, Uric Acid 6.3, Calcium Level 9.1, Phosphorus Level 4.2, Magnesium Level 2.0, Total Bilirubin 1.3H, Direct Bilirubin 0.8H, Aspartate Amino Transf (AST/SGOT) 56H, Alanine Aminotransferase (ALT/SGPT) 83H, Alkaline Phosphatase 70, Total Creatine Kinase 221, Troponin I 0.043, C-Reactive Protein, Quantitative 45.4H, Pro-B-Type Natriuretic Peptide 4534H, Total Protein 6.8, Albumin 2.2L, Globulin 4.6, Albumin/Globulin Ratio 0.5L, Triglycerides Level 54, Cholesterol Level 112, LDL Cholesterol 45, HDL Cholesterol 51, Cholesterol/HDL Ratio 2.2L, Thyroid Stimulating Hormone (TSH) 1.711, Hepatitis A IgM Antibody [Pending], Hepatitis B Surface Antigen [Pending], Hepatitis B Core IgM Antibody [Pending], Hepatitis C Antibody [Pending] 06/06/18 12:30: Arterial Blood pH 7.410, Arterial Blood Partial Pressure CO2 66.7*H, Arterial Blood Partial Pressure O2 76.3, Arterial Blood HCO3 41.6*H, Arterial Blood Oxygen Saturation 94.8L, Arterial Blood Base Excess 14.2*H, Delon Test Positive Height (Feet): 5 Height (Inches): 8.00 Weight (Pounds): 113 Objective Thin AA man NCAT temporal wasting Supple CTA RR abd soft ND nT Carlos Daly MD Jun 06, 2018 22:43
--- NOTE | 2018-06-06 22:44 | NUR ---
NURSE NOTES: Report received from GENNY Pompa. Observed pt lying on bed, awake, A/Ox4 and denies any pain at this time. Family member on the bedside. Telemonitoring: SR noted with no distress. Pt on Bipap 16, 15/5, FIO2 30%. Condom catheter intact and draining well. IV site on L FA 20 G, intact and asymptomatic. Bed in the lowest position. Call light within reach. Will continue to monitor.
--- NOTE | 2018-06-06 23:31 | Pulmonology Progress Note ---
Assessment/Plan Assessment/Plan Pulmonary Consultation Note HPI Patient is a 72-year-old male with previous history of COPD, brought in by EMS after increased bilateral lower extremity pain. Patient reports having increased discomfort to both feet. The patient denies any fever. He reports having drainage to both legs.The patient reports having normal sensation as well as ability to move toes on both feet. Patient's son patient had been having increased difficulty breathing and been off his medications for COPD. The patient has no known heart conditions. Less SOB, on BIPAP Allergies: No Known Allergies Past Medical History: COPD ROS: COPDhortness of breath, LE pain, rest Negative Physical Exam Vital Signs Date Time Temp Pulse Resp B/P (MAP) Pulse Ox O2 Delivery O2 Flow Rate FiO2 06/05/18 06:34 99.1 63 20 104/60 99 Room Air General Appearance: thin, Chronically Ill Head: normocephalic ENT: moist mucus membranes Neck: limited range of motion Respiratory: decreased breath sounds, wheezing Cardiovascular #1: regular rate, rhythm, edema - 3+ edema Gastrointestinal: normal inspection, non tender, soft Musculoskeletal: swelling - bilateral, foot swelling Neurologic: normal inspection, alert, oriented x3, responsive Skin: other - urticarial rash to left lower extremity with drainage Impression: COPD exacerbation Emphysema Pedal edema Left leg cellulitis Plan IV antibiotics Solumedrol HHN BiPAP PRN O2 PRN SQ hepairin Analgesia Labs Test 06/05/18 07:11 06/05/18 08:39 06/05/18 09:00 06/05/18 10:29 White Blood Count 8.0 K/UL (4.8-10.8) Red Blood Count 4.70 M/UL (4.70-6.10) Hemoglobin 13.6 G/DL (14.2-18.0) Hematocrit 42.8 % (42.0-52.0) Mean Corpuscular Volume 91 FL (80-99) Mean Corpuscular Hemoglobin 28.9 PG (27.0-31.0) Mean Corpuscular Hemoglobin Concent 31.7 G/DL (32.0-36.0) Red Cell Distribution Width 16.3 % (11.6-14.8) Platelet Count 148 K/UL (150-450) Mean Platelet Volume 10.8 FL (6.5-10.1) Neutrophils (%) (Auto) % (45.0-75.0) Lymphocytes (%) (Auto) % (20.0-45.0) Monocytes (%) (Auto) % (1.0-10.0) Eosinophils (%) (Auto) % (0.0-3.0) Basophils (%) (Auto) % (0.0-2.0) Differential Total Cells Counted 100 Neutrophils % (Manual) 77 % (45-75) Lymphocytes % (Manual) 5 % (20-45) Monocytes % (Manual) 5 % (1-10) Eosinophils % (Manual) 0 % (0-3) Basophils % (Manual) 0 % (0-2) Band Neutrophils 13 % (0-8) Platelet Estimate Decreased Platelet Morphology Normal Red Blood Cell Morphology Normal Sodium Level 138 MMOL/L (136-145) Potassium Level 5.3 MMOL/L (3.5-5.1) Chloride Level 100 MMOL/L (98-107) Carbon Dioxide Level 34 MMOL/L (21-32) Anion Gap 4 mmol/L (5-15) Blood Urea Nitrogen 35 mg/dL (7-18) Creatinine 1.4 MG/DL (0.55-1.30) Estimat Glomerular Filtration Rate mL/min (>60) Glucose Level 93 MG/DL (74-106) Calcium Level 9.2 MG/DL (8.5-10.1) Total Bilirubin 1.5 MG/DL (0.2-1.0) Direct Bilirubin 0.5 MG/DL (0.0-0.3) Aspartate Amino Transf (AST/SGOT) 104 U/L (15-37) Alanine Aminotransferase (ALT/SGPT) 98 U/L (12-78) Alkaline Phosphatase 85 U/L (46-116) Total Creatine Kinase 511 U/L (26-308) Creatine Kinase MB 7.1 NG/ML (0.0-3.6) Creatine Kinase MB Relative Index 1.3 Troponin I 0.054 ng/mL (0.000-0.056) Pro-B-Type Natriuretic Peptide 7468 pg/mL (0-125) Total Protein 7.9 G/DL (6.4-8.2) Albumin 2.9 G/DL (3.4-5.0) Globulin 5.0 g/dL Albumin/Globulin Ratio 0.6 (1.0-2.7) Urine Color Brown Urine Appearance Cloudy Urine pH 5 (4.5-8.0) Urine Specific [place] 1.025 (1.005-1.035) Urine Protein 2+ (NEGATIVE) Urine Glucose (UA) Negative (NEGATIVE) Urine Ketones Negative (NEGATIVE) Urine Blood 4+ (NEGATIVE) Urine Nitrite Negative (NEGATIVE) Urine Bilirubin 1+ (NEGATIVE) Urine Ictotest Negative (NEGATIVE) Urine Urobilinogen 4 MG/DL (0.0-1.0) Urine Leukocyte Esterase 1+ (NEGATIVE) Urine RBC 5-10 /HPF (0 - 0) Urine WBC 2-4 /HPF (0 - 0) Urine Squamous Epithelial Cells Occasional /LPF Urine Amorphous Sediment Many /LPF (NONE) Urine Bacteria Few /HPF (NONE) Urine Mucus Moderate /LPF (NONE/OCC) Lactic Acid Level 2.80 mmol/L (0.66-2.22) Arterial Blood pH 7.299 (7.350-7.450) Arterial Blood Partial Pressure CO2 66.0 mmHg (35.0-45.0) Arterial Blood Partial Pressure O2 53.7 mmHg (75.0-100.0) Arterial Blood HCO3 31.7 mmol/L (22.0-26.0) Arterial Blood Oxygen Saturation 82.5 % (95-100) Arterial Blood Base Excess 3.5 (-2-2) Delon Test Positive EKG Diagnostic Results Rate: normal Rhythm: NSR ST Segments: no acute changes Subjective ROS Limited/Unobtainable: No Respiratory: Reports: shortness of breath Allergies: Coded Allergies: No Known Allergies (Unverified , 06/05/18) Objective Last 24 Hour Vital Signs Date Time Temp Pulse Resp B/P (MAP) Pulse Ox O2 Delivery O2 Flow Rate FiO2 06/06/18 22:52 71 16 100 Bi-pap 30 06/06/18 22:49 70 17 98 Bi-pap 30 06/06/18 22:47 70 17 99 Facial 30 06/06/18 21:20 76 17 96 Full Face 30 06/06/18 20:00 30 06/06/18 20:00 97.5 78 16 95/62 (73) 95 06/06/18 20:00 Bi-pap 06/06/18 19:19 76 19 98 Bi-pap 30 06/06/18 19:12 78 06/06/18 19:06 79 19 97 Bi-pap 30 06/06/18 19:01 79 19 97 Full Face 30 06/06/18 17:28 30 18 17:15 78 17 95 Full Face 30 06/06/18 16:00 98.5 106 13 115/71 (86) 96 06/06/18 16:00 Bi-pap 06/06/18 15:43 84 20 95 Bi-pap 30 06/06/18 15:33 81 20 94 Bi-pap 30 06/06/18 15:28 81 20 94 Full Face 30 06/06/18 15:20 84 06/06/18 13:16 80 19 95 Full Face 30 06/06/18 12:05 Bi-pap 06/06/18 12:03 97.8 88 23 99/62 (74) 96 06/06/18 12:01 30 06/06/18 11:54 84 06/06/18 11:09 Bi-pap 06/06/18 11:09 Bi-pap 06/06/18 11:08 86 19 95 Full Face 30 06/06/18 09:16 85 24 96 Facial 30 06/06/18 08:00 Bi-pap 06/06/18 08:00 98.8 90 16 103/67 (79) 96 06/06/18 07:51 88 18 98 Bi-pap 30 06/06/18 07:41 86 17 96 Bi-pap 30 18 07:35 83 06/06/18 07:25 86 17 95 Facial 30 06/06/18 04:43 79 30 97 Full Face 30 06/06/18 04:00 Bi-pap 06/06/18 04:00 98.9 80 21 98/72 (81) 97 18 04:00 85 06/06/18 03:13 92 26 97 Bi-pap 30 06/06/18 03:10 86 25 96 Full Face 30 06/06/18 03:00 85 25 95 Bi-pap 30 06/06/18 01:14 118 19 98 Full Face 30 06/06/18 00:00 Bi-pap 06/06/18 00:00 81 06/06/18 00:00 99.1 80 18 100/67 (78) 100 06/05/18 23:34 102 17 99 Bi-pap 30 Intake and Output 06/05/18 06/06/18 18:59 06:59 Intake Total 1532.416 ml 110 ml Output Total 300 ml Balance 1532.416 ml -190 ml IV Total 1532.416 ml 110 ml Output Urine Total 300 ml # Voids 3 1 Microbiology Date/Time Source Procedure Growth Status 06/05/18 11:00 Rectum Received Laboratory Tests 06/06/18 03:45: White Blood Count 10.0, Red Blood Count 3.81L, Hemoglobin 11.4L, Hematocrit 36.0L, Mean Corpuscular Volume 94, Mean Corpuscular Hemoglobin 29.8, Mean Corpuscular Hemoglobin Concent 31.6L, Red Cell Distribution Width 16.0H, Platelet Count 136L, Mean Platelet Volume 8.8, Neutrophils (%) (Auto) , Lymphocytes (%) (Auto) , Monocytes (%) (Auto) , Eosinophils (%) (Auto) , Basophils (%) (Auto) , Differential Total Cells Counted 100, Neutrophils % ( Manual) 79H, Lymphocytes % (Manual) 4L, Monocytes % (Manual) 7, Eosinophils % ( Manual) 0, Basophils % (Manual) 0, Band Neutrophils 10H, Platelet Estimate DecreasedL, Platelet Morphology Normal, Hypochromasia 1+, Anisocytosis 1+, Sodium Level 141, Potassium Level 4.0, Chloride Level 100, Carbon Dioxide Level 38H, Anion Gap 3L, Blood Urea Nitrogen 30H, Creatinine 1.2, Estimat Glomerular Filtration Rate , Glucose Level 99, Lactic Acid Level 1.70, Uric Acid 6.3, Calcium Level 9.1, Phosphorus Level 4.2, Magnesium Level 2.0, Total Bilirubin 1.3H, Direct Bilirubin 0.8H, Aspartate Amino Transf (AST/SGOT) 56H, Alanine Aminotransferase (ALT/SGPT) 83H, Alkaline Phosphatase 70, Total Creatine Kinase 221, Troponin I 0.043, C-Reactive Protein, Quantitative 45.4H, Pro-B-Type Natriuretic Peptide 4534H, Total Protein 6.8, Albumin 2.2L, Globulin 4.6, Albumin/Globulin Ratio 0.5L, Triglycerides Level 54, Cholesterol Level 112, LDL Cholesterol 45, HDL Cholesterol 51, Cholesterol/HDL Ratio 2.2L, Thyroid Stimulating Hormone (TSH) 1.711, Hepatitis A IgM Antibody [Pending], Hepatitis B Surface Antigen [Pending], Hepatitis B Core IgM Antibody [Pending], Hepatitis C Antibody [Pending] 06/06/18 12:30: Arterial Blood pH 7.410, Arterial Blood Partial Pressure CO2 66.7*H, Arterial Blood Partial Pressure O2 76.3, Arterial Blood HCO3 41.6*H, Arterial Blood Oxygen Saturation 94.8L, Arterial Blood Base Excess 14.2*H, Delon Test Positive Current Medications Medications (Trade) Dose Ordered Sig/Brittani Route PRN Reason Start Time Stop Time Status Last Admin Dose Admin Albuterol/ Ipratropium (Albuterol/ Ipratropium) 3 ml Q4HRT HHN 06/05/18 15:00 06/10/18 14:59 06/06/18 22:50 Ceftriaxone Sodium 1 gm/ Dextrose 55 ml @ 110 mls/hr DAILY IVPB 06/05/18 15:00 06/12/18 14:59 06/06/18 10:00 Citalopram Hydrobromide (celeXA) 20 mg DAILY ORAL 06/07/18 09:00 07/07/18 08:59 Doxycycline Hyclate 100 mg/ Dextrose 110 ml @ 110 mls/hr Q12HR IV 06/05/18 18:00 06/12/18 17:59 06/06/18 21:35 Furosemide (Lasix) 40 mg EVERY 12 HOURS IV 06/05/18 12:00 07/05/18 11:59 06/06/18 21:37 Heparin Sodium (Porcine) (Heparin 5000 units/ml) 5,000 units EVERY 12 HOURS SUBQ 06/05/18 21:00 07/05/18 20:59 06/06/18 21:37 Methylprednisolone Sodium Succinate (Solu-MEDROL) 40 mg EVERY 12 HOURS IVP 06/05/18 15:00 07/05/18 14:59 06/06/18 21:35 Pantoprazole (Protonix) 40 mg DAILY ORAL 06/06/18 09:00 07/06/18 08:59 06/06/18 09:58 Vancomycin HCl (Vanco rx to dose) 1 ea DAILY PRN MISC Per rx protocol 06/05/18 14:00 07/05/18 13:59 Vancomycin HCl 500 mg/Dextrose 110 ml @ 110 mls/hr Q24H IVPB 06/06/18 16:00 06/11/18 15:59 06/06/18 15:50 Johny White MD Jun 06, 2018 23:31
[2018-06-07] VITALS (10 sets, daily range): BP systolic 86–117; BP diastolic 51–77
[2018-06-07] MEDS: Albuterol/Ipratropium 3ml neb HHN SCH ×6 (02:57→22:38)
--- NOTE | 2018-06-07 07:30 | NUR ---
RESPIRATORY NOTE: Received patient on current BiPAP settings of 15/5 30%. Found asleep and responsive. Layer of foam tape between skin and mask. No skin breakdown or damage noted near or around mask. Breath sounds clear and diminished bilaterally. Alarms are audible and functional. Bipap connected to red outlet. Patient appears comfortable, and will continue to monitor.
--- NOTE | 2018-06-07 07:40 | NUR ---
HAND-OFF: Report given to GENNY Stringer. Observed pt eating breakfast. No acute distress noted.
--- NOTE | 2018-06-07 07:46 | NUR ---
NURSE NOTES: Received patient from GENNY Wyatt. Patient in bed, awake, and alert. Currently on 2LNC because patient is eating. No SOB. Respirations are even and unlaboured. groundwater monitoring technician in placed. Condom catheter in placed and draining well. IV sites are asymptomatic and intact. Bed in lowest position with side rails up. Will continue to follow plan of care. Addendum: 06/07/18 at 1014 by Siomara King RN NURSE NOTES: Received patient from GENNY Wyatt. Patient in bed, awake, and alert. Currently on 4LNC because patient is eating. No SOB. Respirations are even and unlaboured. groundwater monitoring technician in placed. Condom catheter in placed and draining well. IV sites are asymptomatic and intact. Bed in lowest position with side rails up. Will continue to follow plan of care.
[2018-06-07] MEDS: Solu-MEDROL 40mg Inj IVP SCH ×2 (08:41→21:01)
[2018-06-07] MEDS: Citalopram Hydrobromide 10mg Tab ORAL SCH (08:41)
[2018-06-07] MEDS: Heparin 5000 units/ml inj SUBQ SCH ×2 (08:50→21:03)
[2018-06-07] MEDS: cefTRIAXone 1 GM in D5W 55 ML IVPB SCH (08:54)
[2018-06-07] MEDS: Doxycycline Hyclate 100 MG in D5W 110 ML IV SCH ×2 (09:56→21:03)
--- NOTE | 2018-06-07 10:20 | NUR ---
NURSE NOTES: Informed Dr. White about recent ABG results of ph 7.312, pc02 84.5 hc03 41.8 base excess 12.3. Patient is on continuous bipap. No new order.
--- NOTE | 2018-06-07 12:09 | General Progress Note ---
Assessment/Plan Problem List: (1) Major depressive disorder ICD Codes: F32.9 - Major depressive disorder, single episode, unspecified SNOMED: 635391217 Status: stable Assessment/Plan Celexa 20mg qam Provided st/ro Subjective Neurologic/Psychiatric: Reports: anxiety, depressed, emotional problems Allergies: Coded Allergies: No Known Allergies (Unverified , 06/05/18) Objective Last 24 Hour Vital Signs Date Time Temp Pulse Resp B/P (MAP) Pulse Ox O2 Delivery O2 Flow Rate FiO2 06/07/18 11:23 70 16 96 Bi-pap 28 06/07/18 11:16 78 16 93 Facial 28 06/07/18 11:12 72 16 93 Bi-pap 28 06/07/18 09:44 65 18 98 Facial 28 06/07/18 08:00 4.0 06/07/18 08:00 Nasal Cannula 4.0 06/07/18 08:00 98.4 88 18 101/71 (81) 95 06/07/18 07:43 86 06/07/18 07:36 88 16 98 Nasal Cannula 36 06/07/18 07:25 77 17 95 Facial 30 06/07/18 07:24 77 17 95 Bi-pap 30 06/07/18 04:46 69 16 97 Facial 30 06/07/18 04:00 30 06/07/18 04:00 Bi-pap 06/07/18 04:00 74 06/07/18 04:00 97.6 93 16 117/77 (90) 95 06/07/18 03:22 79 19 99 Bi-pap 30 06/07/18 03:21 83 21 98 Bi-pap 30 06/07/18 02:56 81 23 99 Facial 30 06/07/18 01:52 74 16 98 Facial 30 06/07/18 00:00 97.7 77 16 97/61 (73) 95 06/07/18 00:00 78 06/07/18 00:00 Bi-pap 06/06/18 22:52 71 16 100 Bi-pap 30 06/06/18 22:49 70 17 98 Bi-pap 30 06/06/18 22:47 70 17 99 Facial 30 06/06/18 21:20 76 17 96 Full Face 30 06/06/18 20:00 30 06/06/18 20:00 97.5 78 16 95/62 (73) 95 06/06/18 20:00 Bi-pap 06/06/18 19:19 76 19 98 Bi-pap 30 06/06/18 19:12 78 06/06/18 19:06 79 19 97 Bi-pap 30 06/06/18 19:01 79 19 97 Full Face 30 06/06/18 17:28 30 06/06/18 17:15 78 17 95 Full Face 30 06/06/18 16:00 98.5 106 13 115/71 (86) 96 06/06/18 16:00 Bi-pap 06/06/18 15:43 84 20 95 Bi-pap 30 06/06/18 15:33 81 20 94 Bi-pap 30 06/06/18 15:28 81 20 94 Full Face 30 06/06/18 15:20 84 06/06/18 13:16 80 19 95 Full Face 30 Intake and Output 06/06/18 06/07/18 19:00 07:00 Intake Total 60 ml 200 ml Output Total 1151 ml 500 ml Balance -1091 ml -300 ml Intake Oral 60 ml 200 ml Output Urine Total 1150 ml 500 ml Stool Total 1 ml # Bowel Movements 1 Laboratory Tests 06/06/18 12:30: Arterial Blood pH 7.410, Arterial Blood Partial Pressure CO2 66.7*H, Arterial Blood Partial Pressure O2 76.3, Arterial Blood HCO3 41.6*H, Arterial Blood Oxygen Saturation 94.8L, Arterial Blood Base Excess 14.2*H, Delon Test Positive 06/07/18 09:30: Arterial Blood pH 7.312L, Arterial Blood Partial Pressure CO2 84.5*H, Arterial Blood Partial Pressure O2 140.6H, Arterial Blood HCO3 41.8*H, Arterial Blood Oxygen Saturation 98.6, Arterial Blood Base Excess 12.3*H, Delon Test Positive Height (Feet): 5 Height (Inches): 8.00 Weight (Pounds): 113 General Appearance: no apparent distress, alert Neurologic: oriented x 3, responsive, depressed affect Destiny Mares MD Jun 07, 2018 12:09
--- NOTE | 2018-06-07 12:49 | General Progress Note ---
Assessment/Plan Assessment/Plan Assessment - CHF - COPD / BIPAP - Edema, LE cellulitis Recommendations Careful po trial off mask follow labs and exam abx per ID I will be away until next week - call coverage if GI issues Subjective Allergies: Coded Allergies: No Known Allergies (Unverified , 06/05/18) Subjective above noted d/w RN was able to take po breakfast while temporarily off of BIPAP no abdominal complaints Objective Last 24 Hour Vital Signs Date Time Temp Pulse Resp B/P (MAP) Pulse Ox O2 Delivery O2 Flow Rate FiO2 06/07/18 12:31 74 16 94 Facial 28 06/07/18 11:23 70 16 96 Bi-pap 28 06/07/18 11:16 78 16 93 Facial 28 06/07/18 11:12 72 16 93 Bi-pap 28 06/07/18 09:44 65 18 98 Facial 28 06/07/18 08:00 4.0 06/07/18 08:00 Nasal Cannula 4.0 06/07/18 08:00 98.4 88 18 101/71 (81) 95 06/07/18 07:43 86 06/07/18 07:36 88 16 98 Nasal Cannula 36 06/07/18 07:25 77 17 95 Facial 30 06/07/18 07:24 77 17 95 Bi-pap 30 06/07/18 04:46 69 16 97 Facial 30 06/07/18 04:00 30 06/07/18 04:00 Bi-pap 06/07/18 04:00 74 06/07/18 04:00 97.6 93 16 117/77 (90) 95 06/07/18 03:22 79 19 99 Bi-pap 30 06/07/18 03:21 83 21 98 Bi-pap 30 06/07/18 02:56 81 23 99 Facial 30 06/07/18 01:52 74 16 98 Facial 30 06/07/18 00:00 97.7 77 16 97/61 (73) 95 06/07/18 00:00 78 06/07/18 00:00 Bi-pap 06/06/18 22:52 71 16 100 Bi-pap 30 06/06/18 22:49 70 17 98 Bi-pap 30 06/06/18 22:47 70 17 99 Facial 30 06/06/18 21:20 76 17 96 Full Face 30 06/06/18 20:00 30 06/06/18 20:00 97.5 78 16 95/62 (73) 95 06/06/18 20:00 Bi-pap 06/06/18 19:19 76 19 98 Bi-pap 30 06/06/18 19:12 78 06/06/18 19:06 79 19 97 Bi-pap 30 06/06/18 19:01 79 19 97 Full Face 30 06/06/18 17:28 30 06/06/18 17:15 78 17 95 Full Face 30 06/06/18 16:00 98.5 106 13 115/71 (86) 96 06/06/18 16:00 Bi-pap 06/06/18 15:43 84 20 95 Bi-pap 30 06/06/18 15:33 81 20 94 Bi-pap 30 06/06/18 15:28 81 20 94 Full Face 30 06/06/18 15:20 84 06/06/18 13:16 80 19 95 Full Face 30 Intake and Output 06/06/18 06/07/18 19:00 07:00 Intake Total 60 ml 200 ml Output Total 1151 ml 500 ml Balance -1091 ml -300 ml Intake Oral 60 ml 200 ml Output Urine Total 1150 ml 500 ml Stool Total 1 ml # Bowel Movements 1 Laboratory Tests 06/07/18 09:30: Arterial Blood pH 7.312L, Arterial Blood Partial Pressure CO2 84.5*H, Arterial Blood Partial Pressure O2 140.6H, Arterial Blood HCO3 41.8*H, Arterial Blood Oxygen Saturation 98.6, Arterial Blood Base Excess 12.3*H, Delon Test Positive Height (Feet): 5 Height (Inches): 8.00 Weight (Pounds): 113 Objective Thin AA man NCAT temporal wasting Supple CTA RR abd soft ND NT (+) cellulitis Carlos Daly MD Jun 07, 2018 12:49
--- NOTE | 2018-06-07 13:42 | Infectious Diseases Prog Note ---
Assessment/Plan Assessment/Plan A; COPD exacerbation Legs cellulitis more in left Respiratory failure with hypercapnia Elevated transaminase Cachexia Renal failure P: Continue Vancomycin & Rocephin Will f/u cultures Subjective ROS Limited/Unobtainable: Yes Constitutional: Reports: no symptoms Respiratory: Reports: no symptoms Musculoskeletal: Reports: pain, other - with leg movement Allergies: Coded Allergies: No Known Allergies (Unverified , 06/05/18) Objective Vital Signs Last 24 Hour Vital Signs Date Time Temp Pulse Resp B/P (MAP) Pulse Ox O2 Delivery O2 Flow Rate FiO2 06/07/18 12:31 74 16 94 Facial 28 06/07/18 12:00 30 06/07/18 12:00 97.7 77 17 100/67 (78) 96 06/07/18 12:00 Nasal Cannula 4.0 06/07/18 11:23 70 16 96 Bi-pap 28 06/07/18 11:16 78 16 93 Facial 28 06/07/18 11:12 72 16 93 Bi-pap 28 06/07/18 09:44 65 18 98 Facial 28 06/07/18 08:00 4.0 06/07/18 08:00 Nasal Cannula 4.0 06/07/18 08:00 98.4 88 18 101/71 (81) 95 06/07/18 07:43 86 06/07/18 07:36 88 16 98 Nasal Cannula 36 06/07/18 07:25 77 17 95 Facial 30 06/07/18 07:24 77 17 95 Bi-pap 30 06/07/18 04:46 69 16 97 Facial 30 06/07/18 04:00 30 06/07/18 04:00 Bi-pap 06/07/18 04:00 74 06/07/18 04:00 97.6 93 16 117/77 (90) 95 06/07/18 03:22 79 19 99 Bi-pap 30 06/07/18 03:21 83 21 98 Bi-pap 30 06/07/18 02:56 81 23 99 Facial 30 06/07/18 01:52 74 16 98 Facial 30 06/07/18 00:00 97.7 77 16 97/61 (73) 95 06/07/18 00:00 78 06/07/18 00:00 Bi-pap 06/06/18 22:52 71 16 100 Bi-pap 30 06/06/18 22:49 70 17 98 Bi-pap 30 06/06/18 22:47 70 17 99 Facial 30 06/06/18 21:20 76 17 96 Full Face 30 06/06/18 20:00 30 06/06/18 20:00 97.5 78 16 95/62 (73) 95 06/06/18 20:00 Bi-pap 06/06/18 19:19 76 19 98 Bi-pap 30 06/06/18 19:12 78 06/06/18 19:06 79 19 97 Bi-pap 30 06/06/18 19:01 79 19 97 Full Face 30 06/06/18 17:28 30 06/06/18 17:15 78 17 95 Full Face 30 06/06/18 16:00 98.5 106 13 115/71 (86) 96 06/06/18 16:00 Bi-pap 06/06/18 15:43 84 20 95 Bi-pap 30 06/06/18 15:33 81 20 94 Bi-pap 30 06/06/18 15:28 81 20 94 Full Face 30 06/06/18 15:20 84 Height (Feet): 5 Height (Inches): 8.00 Weight (Pounds): 113 HEENT: mucous membranes moist Respiratory/Chest: decreased breath sounds, other - Oxygen by nasal cannula Abdomen: soft, non tender Extremities: other - left pedal edema Skin: ulcers, other - opened blisters Neurologic/Psychiatric: alert, responsive Microbiology Date/Time Source Procedure Growth Status 06/05/18 07:11 Blood Blood Culture - Preliminary NO GROWTH AFTER 48 HOURS Resulted 06/05/18 07:11 Blood Blood Culture - Preliminary NO GROWTH AFTER 48 HOURS Resulted 06/05/18 11:00 Rectum - Final NO CARBAPENEM-RESISTANT ENTEROBACTERI... Complete 06/05/18 11:00 Rectum VRE Culture - Final NO VANCOMYCIN RESISTANT ENTEROCOCCUS ... Complete Laboratory Tests Test 06/07/18 09:30 Arterial Blood pH 7.312 (7.350-7.450) Arterial Blood Partial Pressure CO2 84.5 mmHg (35.0-45.0) *H Arterial Blood Partial Pressure O2 140.6 mmHg (75.0-100.0) H Arterial Blood HCO3 41.8 mmol/L (22.0-26.0) *H Arterial Blood Oxygen Saturation 98.6 % (95-100) Arterial Blood Base Excess 12.3 (-2-2) *H Delon Test Positive Current Medications Medications (Trade) Dose Ordered Sig/Brittani Route PRN Reason Start Time Stop Time Status Last Admin Dose Admin Albuterol/ Ipratropium (Albuterol/ Ipratropium) 3 ml Q4HRT HHN 06/05/18 15:00 06/10/18 14:59 06/07/18 11:11 Ceftriaxone Sodium 1 gm/ Dextrose 55 ml @ 110 mls/hr DAILY IVPB 06/05/18 15:00 06/12/18 14:59 06/07/18 08:54 Citalopram Hydrobromide (celeXA) 20 mg DAILY ORAL 06/07/18 09:00 07/07/18 08:59 06/07/18 08:41 Doxycycline Hyclate 100 mg/ Dextrose 110 ml @ 110 mls/hr Q12HR IV 06/05/18 18:00 06/12/18 17:59 06/07/18 09:56 Furosemide (Lasix) 40 mg EVERY 12 HOURS IV 06/05/18 12:00 07/05/18 11:59 06/07/18 08:41 Heparin Sodium (Porcine) (Heparin 5000 units/ml) 5,000 units EVERY 12 HOURS SUBQ 06/05/18 21:00 07/05/18 20:59 06/07/18 08:50 Methylprednisolone Sodium Succinate (Solu-MEDROL) 40 mg EVERY 12 HOURS IVP 06/05/18 15:00 07/05/18 14:59 06/07/18 08:41 Pantoprazole (Protonix) 40 mg DAILY ORAL 06/06/18 09:00 07/06/18 08:59 06/07/18 08:41 Vancomycin HCl (Vanco rx to dose) 1 ea DAILY PRN MISC Per rx protocol 06/05/18 14:00 07/05/18 13:59 Vancomycin HCl 500 mg/Dextrose 110 ml @ 110 mls/hr Q24H IVPB 06/06/18 16:00 06/11/18 15:59 06/06/18 15:50 William Avalos MD Jun 07, 2018 13:42
--- NOTE | 2018-06-07 14:33 | NUR ---
CASE MANAGEMENT: REVIEW SI: COPD EXACERBATION T 97.7 HR 77 RR 17 BP 100/67 SAT 94% BIPAP FIO2 28 ABG: PH 7.312 PCO2 84.5 PO2 140.6 HCO3 41.8 O2 SAT 98.6 IS: VANCO IV Q24 PROTONIX PO QD HEPARIN SQ Q12HR DOXYCYCLINE IV Q12HR CEFTRIAXONE IV QD SOLU MEDROL IV Q12HR LASIX IV Q12HR STEP DOWN UNIT STATUS DCP: PATIENT IS FROM HOME
[2018-06-07] MEDS: Vancomycin 500mg/D5W 110ml IVPB SCH ×2 (15:29)
--- NOTE | 2018-06-07 16:57 | Cardiac Electrophysiology PN ---
Assessment/Plan Assessment/Plan 1. Severe bilateral lower extremity edema. BNP is also 7500. On Lasix 40 mg IV b.i.d. Lower extremity duplex no DVT. Echo EF 55% 2. COPD exacerbation. On BiPAP. 3. Lower extremity cellulitis,on antibiotics. JABIER RN Subjective Subjective No events. Objective Last 24 Hour Vital Signs Date Time Temp Pulse Resp B/P (MAP) Pulse Ox O2 Delivery O2 Flow Rate FiO2 06/07/18 16:00 30 06/07/18 16:00 Bi-pap 06/07/18 16:00 97.8 85 21 100/71 (81) 97 06/07/18 15:45 83 06/07/18 15:43 88 18 97 Bi-pap 28 06/07/18 15:32 85 18 95 Bi-pap 28 06/07/18 15:25 88 18 96 Facial 30 06/07/18 12:31 74 16 94 Facial 28 06/07/18 12:00 30 06/07/18 12:00 97.7 77 17 100/67 (78) 96 06/07/18 12:00 Bi-pap 06/07/18 11:39 72 06/07/18 11:23 70 16 96 Bi-pap 28 06/07/18 11:16 78 16 93 Facial 28 06/07/18 11:12 72 16 93 Bi-pap 28 06/07/18 09:44 65 18 98 Facial 28 06/07/18 08:00 4.0 06/07/18 08:00 Nasal Cannula 4.0 06/07/18 08:00 98.4 88 18 101/71 (81) 95 06/07/18 07:43 86 06/07/18 07:36 88 16 98 Nasal Cannula 36 06/07/18 07:25 77 17 95 Facial 30 06/07/18 07:24 77 17 95 Bi-pap 30 06/07/18 04:46 69 16 97 Facial 30 06/07/18 04:00 30 06/07/18 04:00 Bi-pap 06/07/18 04:00 74 06/07/18 04:00 97.6 93 16 117/77 (90) 95 06/07/18 03:22 79 19 99 Bi-pap 30 06/07/18 03:21 83 21 98 Bi-pap 30 06/07/18 02:56 81 23 99 Facial 30 06/07/18 01:52 74 16 98 Facial 30 06/07/18 00:00 97.7 77 16 97/61 (73) 95 06/07/18 00:00 78 06/07/18 00:00 Bi-pap 06/06/18 22:52 71 16 100 Bi-pap 30 06/06/18 22:49 70 17 98 Bi-pap 30 06/06/18 22:47 70 17 99 Facial 30 06/06/18 21:20 76 17 96 Full Face 30 06/06/18 20:00 30 06/06/18 20:00 97.5 78 16 95/62 (73) 95 06/06/18 20:00 Bi-pap 06/06/18 19:19 76 19 98 Bi-pap 30 06/06/18 19:12 78 06/06/18 19:06 79 19 97 Bi-pap 30 06/06/18 19:01 79 19 97 Full Face 30 06/06/18 17:28 30 06/06/18 17:15 78 17 95 Full Face 30 Intake and Output 06/06/18 06/07/18 19:00 07:00 Intake Total 60 ml 200 ml Output Total 1151 ml 500 ml Balance -1091 ml -300 ml Intake Oral 60 ml 200 ml Output Urine Total 1150 ml 500 ml Stool Total 1 ml # Bowel Movements 1 Laboratory Tests Test 06/07/18 09:30 Arterial Blood pH 7.312 (7.350-7.450) Arterial Blood Partial Pressure CO2 84.5 mmHg (35.0-45.0) *H Arterial Blood Partial Pressure O2 140.6 mmHg (75.0-100.0) H Arterial Blood HCO3 41.8 mmol/L (22.0-26.0) *H Arterial Blood Oxygen Saturation 98.6 % (95-100) Arterial Blood Base Excess 12.3 (-2-2) *H Delon Test Positive Microbiology Date/Time Source Procedure Growth Status 06/05/18 07:11 Blood Blood Culture - Preliminary NO GROWTH AFTER 48 HOURS Resulted 06/05/18 07:11 Blood Blood Culture - Preliminary NO GROWTH AFTER 48 HOURS Resulted 06/05/18 11:00 Rectum - Final NO CARBAPENEM-RESISTANT ENTEROBACTERI... Complete 06/05/18 11:00 Rectum VRE Culture - Final NO VANCOMYCIN RESISTANT ENTEROCOCCUS ... Complete Objective HEAD AND NECK: Mild JVD. LUNGS: Decreased breath sounds. CARDIOVASCULAR: Regular S1 and S2 with no gallop. ABDOMEN: Soft. EXTREMITIES: 2+ pitting edema and cellulitis. Lv Campbell MD Jun 07, 2018 16:57
--- NOTE | 2018-06-07 17:27 | NUR ---
TRANSFER TO FLOOR: Patient transferred to ICU, per Dr. White. Report given to GENNY Yeh. Belongings (silver cellphone and prescription glasses. and medications given to GENNY Yeh. Pants, belt, and underwear were on the belongings list, but not in the patient's room. Clarified with the son and he said that he took them home. Jah (son) informed of transfer. Patient stable.
--- NOTE | 2018-06-07 17:30 | NUR ---
RESPIRATORY NOTE: Patient transferred to ICU bed G. Transferred on 3L NC without incident, and immediately placed back on BiPAP upon being placed in ICU bed G. SPO2 98% and HR of 85 BPM at end of transfer.
--- NOTE | 2018-06-07 17:50 | NUR ---
NURSE NOTES: Received patient from [facility] CARDENAS in [place]. Patient has been transferred to ICU for ABG results. Patient is alert x4, patient is verbal Albanian speaking. Patient received in bed on bi-pap setting 15/5, 30%, 02 saturation 99%. No acute distress noted. Bilateral lung sounds diminished upon auscultation. Patient is connected to the cardiac rn Sinus rhythm on the monitor HR 79. Patient is on mechanical soft diet, abdomen is soft and non tender, patient denies pain at this time. Patient has a condom cath yellow urine noted. Patient has a left leg and right leg ulcers noted with bilaterally swelling. Patient has a right forearm 22 gauge, asymptomatic, patent with TKO. Head of bed is at 30 degrees, bed is lokced and in the lowest position, 3 side rails are up. Will continue to monitor patient and follow plan of care.
--- NOTE | 2018-06-07 19:30 | NUR ---
NURSE NOTES: Received pt in bed with eyes closed. Sinus rhythm on the monitor. Currently on bi-pap 15/5 fio2 25%. Right FA IV site patent and intact at this time. Condom cath draining by gravity. Bilateral arms, bilateral legs noted with edema at this time. Bed in lowest positions, side rails up x3. Call light with in reach. Bed alarm on. No signs of distress noted. Will continue with plan of care
--- NOTE | 2018-06-07 20:35 | Pulmonology Progress Note ---
Assessment/Plan Assessment/Plan Pulmonary Consultation Note HPI Patient is a 72-year-old male with previous history of COPD, brought in by EMS after increased bilateral lower extremity pain. Patient reports having increased discomfort to both feet. The patient denies any fever. He reports having drainage to both legs.The patient reports having normal sensation as well as ability to move toes on both feet. Patient's son patient had been having increased difficulty breathing and been off his medications for COPD. The patient has no known heart conditions. still on BIPAP TF to ICU Allergies: No Known Allergies Past Medical History: COPD ROS: COPDhortness of breath, LE pain, rest Negative Physical Exam Vital Signs Date Time Temp Pulse Resp B/P (MAP) Pulse Ox O2 Delivery O2 Flow Rate FiO2 06/05/18 06:34 99.1 63 20 104/60 99 Room Air General Appearance: thin, Chronically Ill Head: normocephalic ENT: moist mucus membranes Neck: limited range of motion Respiratory: decreased breath sounds, wheezing Cardiovascular #1: regular rate, rhythm, edema - 3+ edema Gastrointestinal: normal inspection, non tender, soft Musculoskeletal: swelling - bilateral, foot swelling Neurologic: normal inspection, alert, oriented x3, responsive Skin: other - urticarial rash to left lower extremity with drainage Impression: COPD exacerbation Emphysema Pedal edema Left leg cellulitis Plan IV antibiotics Solumedrol HHN BiPAP PRN O2 PRN SQ hepairin Analgesia Labs Test 06/05/18 07:11 06/05/18 08:39 06/05/18 09:00 06/05/18 10:29 White Blood Count 8.0 K/UL (4.8-10.8) Red Blood Count 4.70 M/UL (4.70-6.10) Hemoglobin 13.6 G/DL (14.2-18.0) Hematocrit 42.8 % (42.0-52.0) Mean Corpuscular Volume 91 FL (80-99) Mean Corpuscular Hemoglobin 28.9 PG (27.0-31.0) Mean Corpuscular Hemoglobin Concent 31.7 G/DL (32.0-36.0) Red Cell Distribution Width 16.3 % (11.6-14.8) Platelet Count 148 K/UL (150-450) Mean Platelet Volume 10.8 FL (6.5-10.1) Neutrophils (%) (Auto) % (45.0-75.0) Lymphocytes (%) (Auto) % (20.0-45.0) Monocytes (%) (Auto) % (1.0-10.0) Eosinophils (%) (Auto) % (0.0-3.0) Basophils (%) (Auto) % (0.0-2.0) Differential Total Cells Counted 100 Neutrophils % (Manual) 77 % (45-75) Lymphocytes % (Manual) 5 % (20-45) Monocytes % (Manual) 5 % (1-10) Eosinophils % (Manual) 0 % (0-3) Basophils % (Manual) 0 % (0-2) Band Neutrophils 13 % (0-8) Platelet Estimate Decreased Platelet Morphology Normal Red Blood Cell Morphology Normal Sodium Level 138 MMOL/L (136-145) Potassium Level 5.3 MMOL/L (3.5-5.1) Chloride Level 100 MMOL/L (98-107) Carbon Dioxide Level 34 MMOL/L (21-32) Anion Gap 4 mmol/L (5-15) Blood Urea Nitrogen 35 mg/dL (7-18) Creatinine 1.4 MG/DL (0.55-1.30) Estimat Glomerular Filtration Rate mL/min (>60) Glucose Level 93 MG/DL (74-106) Calcium Level 9.2 MG/DL (8.5-10.1) Total Bilirubin 1.5 MG/DL (0.2-1.0) Direct Bilirubin 0.5 MG/DL (0.0-0.3) Aspartate Amino Transf (AST/SGOT) 104 U/L (15-37) Alanine Aminotransferase (ALT/SGPT) 98 U/L (12-78) Alkaline Phosphatase 85 U/L (46-116) Total Creatine Kinase 511 U/L (26-308) Creatine Kinase MB 7.1 NG/ML (0.0-3.6) Creatine Kinase MB Relative Index 1.3 Troponin I 0.054 ng/mL (0.000-0.056) Pro-B-Type Natriuretic Peptide 7468 pg/mL (0-125) Total Protein 7.9 G/DL (6.4-8.2) Albumin 2.9 G/DL (3.4-5.0) Globulin 5.0 g/dL Albumin/Globulin Ratio 0.6 (1.0-2.7) Urine Color Brown Urine Appearance Cloudy Urine pH 5 (4.5-8.0) Urine Specific [place] 1.025 (1.005-1.035) Urine Protein 2+ (NEGATIVE) Urine Glucose (UA) Negative (NEGATIVE) Urine Ketones Negative (NEGATIVE) Urine Blood 4+ (NEGATIVE) Urine Nitrite Negative (NEGATIVE) Urine Bilirubin 1+ (NEGATIVE) Urine Ictotest Negative (NEGATIVE) Urine Urobilinogen 4 MG/DL (0.0-1.0) Urine Leukocyte Esterase 1+ (NEGATIVE) Urine RBC 5-10 /HPF (0 - 0) Urine WBC 2-4 /HPF (0 - 0) Urine Squamous Epithelial Cells Occasional /LPF Urine Amorphous Sediment Many /LPF (NONE) Urine Bacteria Few /HPF (NONE) Urine Mucus Moderate /LPF (NONE/OCC) Lactic Acid Level 2.80 mmol/L (0.66-2.22) Arterial Blood pH 7.299 (7.350-7.450) Arterial Blood Partial Pressure CO2 66.0 mmHg (35.0-45.0) Arterial Blood Partial Pressure O2 53.7 mmHg (75.0-100.0) Arterial Blood HCO3 31.7 mmol/L (22.0-26.0) Arterial Blood Oxygen Saturation 82.5 % (95-100) Arterial Blood Base Excess 3.5 (-2-2) Delon Test Positive EKG Diagnostic Results Rate: normal Rhythm: NSR ST Segments: no acute changes Subjective ROS Limited/Unobtainable: No Allergies: Coded Allergies: No Known Allergies (Unverified , 06/05/18) Objective Last 24 Hour Vital Signs Date Time Temp Pulse Resp B/P (MAP) Pulse Ox O2 Delivery O2 Flow Rate FiO2 06/07/18 19:35 71 16 100 Bi-pap 25 06/07/18 19:26 75 16 96 Bi-pap 25 06/07/18 19:25 75 16 96 Facial 25 06/07/18 18:00 30 06/07/18 17:27 85 21 98 Full Face 30 06/07/18 16:00 30 06/07/18 16:00 Bi-pap 06/07/18 16:00 97.8 85 21 100/71 (81) 97 06/07/18 15:45 83 06/07/18 15:43 88 18 97 Bi-pap 28 06/07/18 15:32 85 18 95 Bi-pap 28 06/07/18 15:25 88 18 96 Full Face 30 06/07/18 12:31 74 16 94 Facial 28 06/07/18 12:00 30 06/07/18 12:00 97.7 77 17 100/67 (78) 96 06/07/18 12:00 Bi-pap 06/07/18 11:39 72 06/07/18 11:23 70 16 96 Bi-pap 28 06/07/18 11:16 78 16 93 Facial 28 06/07/18 11:12 72 16 93 Bi-pap 28 06/07/18 09:44 65 18 98 Facial 28 06/07/18 08:00 4.0 06/07/18 08:00 Nasal Cannula 4.0 06/07/18 08:00 98.4 88 18 101/71 (81) 95 06/07/18 07:43 86 06/07/18 07:36 88 16 98 Nasal Cannula 36 06/07/18 07:25 77 17 95 Facial 30 06/07/18 07:24 77 17 95 Bi-pap 30 06/07/18 04:46 69 16 97 Facial 30 06/07/18 04:00 30 06/07/18 04:00 Bi-pap 06/07/18 04:00 74 06/07/18 04:00 97.6 93 16 117/77 (90) 95 06/07/18 03:22 79 19 99 Bi-pap 30 06/07/18 03:21 83 21 98 Bi-pap 30 06/07/18 02:56 81 23 99 Facial 30 06/07/18 01:52 74 16 98 Facial 30 06/07/18 00:00 97.7 77 16 97/61 (73) 95 06/07/18 00:00 78 06/07/18 00:00 Bi-pap 06/06/18 22:52 71 16 100 Bi-pap 30 06/06/18 22:49 70 17 98 Bi-pap 30 06/06/18 22:47 70 17 99 Facial 30 06/06/18 21:20 76 17 96 Full Face 30 Intake and Output 06/06/18 06/07/18 19:00 07:00 Intake Total 60 ml 200 ml Output Total 1151 ml 500 ml Balance -1091 ml -300 ml Intake Oral 60 ml 200 ml Output Urine Total 1150 ml 500 ml Stool Total 1 ml # Bowel Movements 1 Microbiology Date/Time Source Procedure Growth Status 06/05/18 07:11 Blood Blood Culture - Preliminary NO GROWTH AFTER 48 HOURS Resulted 06/05/18 07:11 Blood Blood Culture - Preliminary NO GROWTH AFTER 48 HOURS Resulted 06/05/18 11:00 Rectum - Final NO CARBAPENEM-RESISTANT ENTEROBACTERI... Complete 06/05/18 11:00 Rectum VRE Culture - Final NO VANCOMYCIN RESISTANT ENTEROCOCCUS ... Complete Laboratory Tests 06/07/18 09:30: Arterial Blood pH 7.312L, Arterial Blood Partial Pressure CO2 84.5*H, Arterial Blood Partial Pressure O2 140.6H, Arterial Blood HCO3 41.8*H, Arterial Blood Oxygen Saturation 98.6, Arterial Blood Base Excess 12.3*H, Delon Test Positive Current Medications Medications (Trade) Dose Ordered Sig/Brittani Route PRN Reason Start Time Stop Time Status Last Admin Dose Admin Albuterol/ Ipratropium (Albuterol/ Ipratropium) 3 ml Q4HRT HHN 06/05/18 15:00 06/10/18 14:59 06/07/18 19:27 Ceftriaxone Sodium 1 gm/ Dextrose 55 ml @ 110 mls/hr DAILY IVPB 06/05/18 15:00 06/12/18 14:59 06/07/18 08:54 Citalopram Hydrobromide (celeXA) 20 mg DAILY ORAL 06/07/18 09:00 07/07/18 08:59 06/07/18 08:41 Doxycycline Hyclate 100 mg/ Dextrose 110 ml @ 110 mls/hr Q12HR IV 06/05/18 18:00 06/12/18 17:59 06/07/18 09:56 Furosemide (Lasix) 40 mg EVERY 12 HOURS IV 06/05/18 12:00 07/05/18 11:59 06/07/18 08:41 Heparin Sodium (Porcine) (Heparin 5000 units/ml) 5,000 units EVERY 12 HOURS SUBQ 06/05/18 21:00 07/05/18 20:59 06/07/18 08:50 Methylprednisolone Sodium Succinate (Solu-MEDROL) 40 mg EVERY 12 HOURS IVP 06/05/18 15:00 07/05/18 14:59 06/07/18 08:41 Pantoprazole (Protonix) 40 mg DAILY ORAL 06/06/18 09:00 07/06/18 08:59 06/07/18 08:41 Vancomycin HCl (Vanco rx to dose) 1 ea DAILY PRN MISC Per rx protocol 06/05/18 14:00 07/05/18 13:59 Vancomycin HCl 500 mg/Dextrose 110 ml @ 110 mls/hr Q24H IVPB 06/06/18 16:00 06/11/18 15:59 06/07/18 15:29 Johny White MD Jun 07, 2018 20:35
--- NOTE | 2018-06-07 21:00 | NUR ---
NURSE NOTES: Turned ad repositioned patient at this time. Pt off bi-pap and placed on 2L NC to eat sandwich. Tolerating NC at this time. Will continue with plan of care.
--- NOTE | 2018-06-07 21:54 | General Progress Note ---
Assessment/Plan Problem List: (1) Pedal edema ICD Codes: R60.0 - Localized edema SNOMED: 930453615 (2) COPD exacerbation ICD Codes: J44.1 - Chronic obstructive pulmonary disease with (acute) exacerbation SNOMED: 362536621 (3) Emphysema lung ICD Codes: J43.9 - Emphysema, unspecified SNOMED: 76257063 (4) Left leg cellulitis ICD Codes: L03.116 - Cellulitis of left lower limb SNOMED: 789158764 Status: deteriorating Assessment/Plan resp failure in icu now copd sepsis cellulitis and pt/ot wt loss pna wheezing getting worse elev LFT Subjective ROS Limited/Unobtainable: Yes Allergies: Coded Allergies: No Known Allergies (Unverified , 06/05/18) Objective Last 24 Hour Vital Signs Date Time Temp Pulse Resp B/P (MAP) Pulse Ox O2 Delivery O2 Flow Rate FiO2 06/07/18 20:38 79 17 98 Facial 25 06/07/18 20:00 25 06/07/18 19:35 71 16 100 Bi-pap 25 06/07/18 19:26 75 16 96 Bi-pap 25 06/07/18 19:25 75 16 96 Facial 25 06/07/18 18:00 30 06/07/18 17:27 85 21 98 Full Face 30 06/07/18 16:00 30 06/07/18 16:00 Bi-pap 06/07/18 16:00 97.8 85 21 100/71 (81) 97 06/07/18 15:45 83 06/07/18 15:43 88 18 97 Bi-pap 28 06/07/18 15:32 85 18 95 Bi-pap 28 06/07/18 15:25 88 18 96 Full Face 30 06/07/18 12:31 74 16 94 Facial 28 06/07/18 12:00 30 06/07/18 12:00 97.7 77 17 100/67 (78) 96 06/07/18 12:00 Bi-pap 06/07/18 11:39 72 06/07/18 11:23 70 16 96 Bi-pap 28 06/07/18 11:16 78 16 93 Facial 28 06/07/18 11:12 72 16 93 Bi-pap 28 06/07/18 09:44 65 18 98 Facial 28 06/07/18 08:00 4.0 06/07/18 08:00 Nasal Cannula 4.0 06/07/18 08:00 98.4 88 18 101/71 (81) 95 06/07/18 07:43 86 06/07/18 07:36 88 16 98 Nasal Cannula 36 06/07/18 07:25 77 17 95 Facial 30 06/07/18 07:24 77 17 95 Bi-pap 30 06/07/18 04:46 69 16 97 Facial 30 06/07/18 04:00 30 06/07/18 04:00 Bi-pap 06/07/18 04:00 74 06/07/18 04:00 97.6 93 16 117/77 (90) 95 06/07/18 03:22 79 19 99 Bi-pap 30 06/07/18 03:21 83 21 98 Bi-pap 30 06/07/18 02:56 81 23 99 Facial 30 06/07/18 01:52 74 16 98 Facial 30 06/07/18 00:00 97.7 77 16 97/61 (73) 95 06/07/18 00:00 78 06/07/18 00:00 Bi-pap 06/06/18 22:52 71 16 100 Bi-pap 30 06/06/18 22:49 70 17 98 Bi-pap 30 06/06/18 22:47 70 17 99 Facial 30 Intake and Output 06/06/18 06/07/18 19:00 07:00 Intake Total 60 ml 200 ml Output Total 1151 ml 500 ml Balance -1091 ml -300 ml Intake Oral 60 ml 200 ml Output Urine Total 1150 ml 500 ml Stool Total 1 ml # Bowel Movements 1 Laboratory Tests 06/07/18 09:30: Arterial Blood pH 7.312L, Arterial Blood Partial Pressure CO2 84.5*H, Arterial Blood Partial Pressure O2 140.6H, Arterial Blood HCO3 41.8*H, Arterial Blood Oxygen Saturation 98.6, Arterial Blood Base Excess 12.3*H, Delon Test Positive Height (Feet): 5 Height (Inches): 8.00 Weight (Pounds): 113 General Appearance: lethargic, confused Respiratory/Chest: rhonchi - bilaterally Oskar Nichole MD Jun 07, 2018 21:54
--- NOTE | 2018-06-07 23:00 | NUR ---
NURSE NOTES: Pt on Bi-pap at this time. Bed bath given. Condom cath changed. will continue to monitor
[2018-06-08] VITALS (24 sets, daily range): BP systolic 80–117; BP diastolic 44–69
--- NOTE | 2018-06-08 01:00 | NUR ---
NURSE NOTES: Pt sleeping at this time. Continues on Bi-pap sat 97-98%. Bi-pap 15/5 fio2 25%. No signs of distress noted. Will continue with plan of care.
[2018-06-08] MEDS: Albuterol/Ipratropium 3ml neb HHN SCH ×6 (03:00→23:10)
--- NOTE | 2018-06-08 03:00 | NUR ---
NURSE NOTES: Pt sleeping at this time. Continues on Bi-pap at this time. No signs of distress noted. Will continue to monitor.
--- NOTE | 2018-06-08 04:15 | NUR ---
NURSE NOTES: Pt request to have tea at this time. Placed on 2L NC sat 90-94%. Will continue to monitor
--- NOTE | 2018-06-08 04:45 | NUR ---
NURSE NOTES: Pt placed back on bi-pap.
--- NOTE | 2018-06-08 05:20 | NUR ---
Pt. wore bipap t/o the night on 31/10 BR 16 FiO2 .25 with out any issue. Pt. getting adequate volume and SpO2 ave 95%. Pt. off loaded from the bipap for an hour and mask was switched off to prevent skin breakdown. Will continue to monitor. Nicole Luna RCP
[2018-06-08 05:49] LABS: HEMATOCRIT 35.6 % (42.0-52.0); HEMOGLOBIN 11.1 G/DL (14.2-18.0); MEAN CORPUSCULAR VOLUME 94 FL (80-99); PLATELET COUNT 135 K/UL (150-450); RED BLOOD COUNT 3.78 M/UL (4.70-6.10); WHITE BLOOD COUNT 10.7 K/UL (4.8-10.8)
[2018-06-08 06:21] LABS: BLOOD UREA NITROGEN 42 mg/dL (7-18); CALCIUM 8.8 MG/DL (8.5-10.1); CHLORIDE 100 MMOL/L (98-107); POTASSIUM 3.8 MMOL/L (3.5-5.1); SODIUM 142 MMOL/L (136-145)
[2018-06-08 06:26] LABS: CARBON DIOXIDE 41 MMOL/L (21-32)
--- NOTE | 2018-06-08 06:38 | NUR ---
NURSE NOTES: Called and notified MD White about pt Co2 41 this morning. No new orders
--- NOTE | 2018-06-08 07:07 | NUR ---
HAND-OFF: Report given to Forrest ROYAL using SBAR. VS Stable. Pt continues on Bi-pap at this time. No distress.
--- NOTE | 2018-06-08 07:15 | NUR ---
NURSE NOTES: Received patient from [facility]. Received patient alert in bed with bi-pap 15/5 16 25%, full face mask. No skin break down or problems noted around mask, 02 saturation 97%, bilateral lung sound diminished upon auscultation. Patient is connected to the health information technologist sinus rhythm on the monitor. Patient abdomen is soft and non tender, bowel sound are hypoactive, patent is on a mechanical soft diet. Patient denies pain at this time. Patient has a condom cath that is patent and draining yellow urine. Patient has a bilateral leg leg ulcers, bilateral leg swelling noted. Patient has a right 22 gauge forearm with TKO, IV is asymptomatic, patent. Head of bed is at 30 degrees, bed is locked and in the lowest position. 3 siderails are up. Will continue to monitor patient and follow plan of care.
--- NOTE | 2018-06-08 07:36 | NUR ---
RESPIRATORY NOTE: Patient received on current bipap settings 15/5 16 25%, full face mask. No skin break down or problems noted around or under mask. Foam tape u Addendum: 06/08/18 at 0742 by Abilio Henry RT Foam tape in place under face mask. Patient alert and in and out of sleep. Alarms are on and audible and bipap plugged in to red outlet. Patient is currently stable and will continue to monitor.
--- NOTE | 2018-06-08 09:03 | Cardiac Electrophysiology PN ---
Assessment/Plan Assessment/Plan 1. Severe bilateral lower extremity edema. BNP is also 7500. Due to diastolic dysfunction. On Lasix 40 mg IV b.i.d. Lower extremity duplex no DVT. Echo EF 55% 2. COPD exacerbation. On BiPAP and Solumedrol 3. Lower extremity cellulitis,on antibiotics. JABIER RN Subjective Subjective Off BIPAP now. Alert in ICU. No CP or SOB Objective Last 24 Hour Vital Signs Date Time Temp Pulse Resp B/P (MAP) Pulse Ox O2 Delivery O2 Flow Rate FiO2 06/08/18 08:04 77 24 96 Bi-pap 25 06/08/18 07:29 75 21 96 Bi-pap 25 06/08/18 07:29 75 21 96 Full Face 25 06/08/18 07:00 79 16 117/69 (85) 97 06/08/18 06:00 71 15 98/57 (71) 95 06/08/18 05:12 76 22 94 Full Face 25 06/08/18 05:00 70 16 106/58 (74) 97 06/08/18 04:00 97.9 79 19 95/64 (74) 93 06/08/18 04:00 25 06/08/18 04:00 67 06/08/18 04:00 Bi-pap 06/08/18 03:14 72 16 97 Bi-pap 25 06/08/18 03:02 77 17 97 Bi-pap 25 06/08/18 03:00 77 17 97 Facial 25 06/08/18 03:00 73 16 96/59 (71) 97 06/08/18 02:00 74 16 107/64 (78) 96 06/08/18 01:00 73 22 91/55 (67) 95 06/08/18 00:59 73 16 95 Facial 25 06/08/18 00:00 81 06/08/18 00:00 25 06/08/18 00:00 98.0 79 19 96/67 (77) 95 06/08/18 00:00 Bi-pap 06/07/18 23:00 81 19 87/51 (63) 95 06/07/18 22:50 86 16 100 Bi-pap 25 06/07/18 22:37 90 20 94 Bi-pap 25 06/07/18 22:36 90 20 94 Facial 25 06/07/18 22:00 89 19 88/51 (63) 95 06/07/18 21:00 73 17 95/64 (74) 97 06/07/18 20:38 79 17 98 Facial 25 06/07/18 20:00 25 06/07/18 20:00 Bi-pap 06/07/18 20:00 97.9 73 16 90/59 (69) 96 06/07/18 20:00 73 18 19:35 71 16 100 Bi-pap 25 06/07/18 19:26 75 16 96 Bi-pap 25 06/07/18 19:25 75 16 96 Facial 25 06/07/18 19:00 73 16 86/58 (67) 98 18 18:00 30 18 17:27 85 21 98 Full Face 30 06/07/18 16:00 30 06/07/18 16:00 Bi-pap 06/07/18 16:00 97.8 85 21 100/71 (81) 97 06/07/18 15:45 83 06/07/18 15:43 88 18 97 Bi-pap 28 06/07/18 15:32 85 18 95 Bi-pap 28 06/07/18 15:25 88 18 96 Full Face 30 06/07/18 12:31 74 16 94 Facial 28 06/07/18 12:00 30 06/07/18 12:00 97.7 77 17 100/67 (78) 96 06/07/18 12:00 Bi-pap 06/07/18 11:39 72 06/07/18 11:23 70 16 96 Bi-pap 28 06/07/18 11:16 78 16 93 Facial 28 06/07/18 11:12 72 16 93 Bi-pap 28 06/07/18 09:44 65 18 98 Facial 28 Intake and Output 06/07/18 06/08/18 19:00 07:00 Intake Total 165 ml 240 ml Output Total 150 ml 880 ml Balance 15 ml -640 ml Intake Oral 240 ml IV Total 165 ml Output Urine Total 150 ml 880 ml Laboratory Tests Test 06/07/18 09:30 06/08/18 04:40 06/08/18 08:33 Arterial Blood pH 7.312 (7.350-7.450) 7.433 (7.350-7.450) Arterial Blood Partial Pressure CO2 84.5 mmHg (35.0-45.0) *H 69.0 mmHg (35.0-45.0) *H Arterial Blood Partial Pressure O2 140.6 mmHg (75.0-100.0) H 64.9 mmHg (75.0-100.0) L Arterial Blood HCO3 41.8 mmol/L (22.0-26.0) *H 45.1 mmol/L (22.0-26.0) *H Arterial Blood Oxygen Saturation 98.6 % (95-100) 91.9 % (95-100) L Arterial Blood Base Excess 12.3 (-2-2) *H 17.5 (-2-2) *H Delon Test Positive Positive White Blood Count 10.7 K/UL (4.8-10.8) Red Blood Count 3.78 M/UL (4.70-6.10) L Hemoglobin 11.1 G/DL (14.2-18.0) L Hematocrit 35.6 % (42.0-52.0) L Mean Corpuscular Volume 94 FL (80-99) Mean Corpuscular Hemoglobin 29.3 PG (27.0-31.0) Mean Corpuscular Hemoglobin Concent 31.1 G/DL (32.0-36.0) L Red Cell Distribution Width 16.0 % (11.6-14.8) H Platelet Count 135 K/UL (150-450) L Mean Platelet Volume 9.7 FL (6.5-10.1) Neutrophils (%) (Auto) % (45.0-75.0) Lymphocytes (%) (Auto) % (20.0-45.0) Monocytes (%) (Auto) % (1.0-10.0) Eosinophils (%) (Auto) % (0.0-3.0) Basophils (%) (Auto) % (0.0-2.0) Sodium Level 142 MMOL/L (136-145) Potassium Level 3.8 MMOL/L (3.5-5.1) Chloride Level 100 MMOL/L (98-107) Carbon Dioxide Level 41 MMOL/L (21-32) *H Blood Urea Nitrogen 42 mg/dL (7-18) H Creatinine 1.0 MG/DL (0.55-1.30) Estimat Glomerular Filtration Rate mL/min (>60) Glucose Level 127 MG/DL (74-106) H Calcium Level 8.8 MG/DL (8.5-10.1) Microbiology Date/Time Source Procedure Growth Status 06/05/18 11:00 Rectum - Final NO CARBAPENEM-RESISTANT ENTEROBACTERI... Complete 06/05/18 11:00 Rectum VRE Culture - Final NO VANCOMYCIN RESISTANT ENTEROCOCCUS ... Complete Objective HEAD AND NECK: Mild JVD. LUNGS: Decreased breath sounds. CARDIOVASCULAR: Regular S1 and S2 with no gallop. ABDOMEN: Soft. EXTREMITIES: 2+ pitting edema and cellulitis. Lv Campbell MD Jun 08, 2018 09:03
--- NOTE | 2018-06-08 09:15 | NUR ---
NURSE NOTES: Patient is in bed asleep, patient consumed 100% of his breakfast. Patient denies pain at this time. No change in condition. No acute distress noted at this time. Head of bed is at 30 degrees, patient is able to self reposition. 3 side rails are up, bed is locked and in the lowest position. Will continue to monitor patient and follow plan of care.
[2018-06-08] MEDS: Citalopram Hydrobromide 10mg Tab ORAL SCH (09:17)
[2018-06-08] MEDS: Solu-MEDROL 40mg Inj IVP SCH ×2 (09:17→21:33)
[2018-06-08] MEDS: cefTRIAXone 1 GM in D5W 55 ML IVPB SCH (09:18)
[2018-06-08] MEDS: Heparin 5000 units/ml inj SUBQ SCH ×2 (09:19→20:35)
[2018-06-08] MEDS: Doxycycline Hyclate 100 MG in D5W 110 ML IV SCH ×2 (09:21→20:34)
--- NOTE | 2018-06-08 11:00 | NUR ---
RD ASSESSMENT & RECOMMENDATIONS SEE CARE ACTIVITY FOR COMPLETE ASSESSMENT DAILY ESTIMATED NEEDS: Needs based on Pulmonary, cachexia/ 60kg 25-30 kcals/kg 8252-3660 total kcals 1-1.5 g protein/kg 60-90 g total protein 25-30 mL/kg 3246-6012 total fluid mLs NUTRITION DIAGNOSIS: * Altered nutrition related lab values R/T respiratory status as evidenced by critically elev PCO2 and HCO3, pt on BIPAP at this time, diet advanced to finely chopped. (UPDATED) CURRENT DIET: Soft finely chopped PO DIET RECOMMENDATIONS: Initiate diet per MD -> LOW NA/ texture as tolerated ADDITIONAL RECOMMENDATIONS: * CALIBRATED bedscale wt for accurate CBW -> Conflicting EMR wt vs bedscale wt * MVI x 1 and Diego 1pkt BID for skin integrity * Monitor NPO status- on BIPAP at this time-> diet advanced * Monitor lytes daily, replete as needed- on lasix * Add ENSURE 1 bottle daily + snacks BID * SSI while on solumedrol
--- NOTE | 2018-06-08 11:15 | NUR ---
NURSE NOTES: Patient is alert, patient denies pain at this time. Patient is back on bi-pap same settings. No acute distress noted. Patient has call light and instructed on how to use the call light. Head of bed is at 30 degrees, bed is locked and in the lowest position. Will continue to monitor patient and follow plan of care. Addendum: 06/08/18 at 1159 by EDWARD ESPINOZA RN Pateint is on nasal cannula not bipap. Nasal cannula 2 Liters. Bipap is PRN and at night. 02 saturation 98%.
--- NOTE | 2018-06-08 11:15 | NUR ---
NURSE NOTES: Patient is up alert, patient on nasal cannula 2liters, 02 saturation 93%. No acute distress. Patient denies pain. Nephew is at the bedside. Patient is able to reposition him self. Head of bed is at 30 degrees, bed is locked and in the lowest position. Call light is within reach. Will continue to monitor patient and follow plan of care.
--- NOTE | 2018-06-08 14:55 | NUR ---
NURSE NOTES: Called Dr. White to inform him of patient ABG results. Dr. White ordered a ABG stat now. Orders have been noted. Will continue to monitor patient and follow plan of care.
--- NOTE | 2018-06-08 15:20 | General Progress Note ---
Assessment/Plan Problem List: (1) Pedal edema ICD Codes: R60.0 - Localized edema SNOMED: 299603202 (2) COPD exacerbation ICD Codes: J44.1 - Chronic obstructive pulmonary disease with (acute) exacerbation SNOMED: 333355103 (3) Emphysema lung ICD Codes: J43.9 - Emphysema, unspecified SNOMED: 41874170 (4) Left leg cellulitis ICD Codes: L03.116 - Cellulitis of left lower limb SNOMED: 344193497 Status: progressing Assessment/Plan resp failure in icu now copd exac improving not safe to go home needs snf placment sepsis cellulitis and pt/ot wt loss pna elev LFT improving Subjective ROS Limited/Unobtainable: Yes Allergies: Coded Allergies: No Known Allergies (Unverified , 06/05/18) Objective Last 24 Hour Vital Signs Date Time Temp Pulse Resp B/P (MAP) Pulse Ox O2 Delivery O2 Flow Rate FiO2 06/08/18 12:32 86 22 100 Nasal Cannula 2.0 28 06/08/18 12:13 84 96 2.0 28 06/08/18 12:00 25 06/08/18 12:00 83 22 104/59 (74) 100 06/08/18 12:00 Bi-pap 06/08/18 12:00 86 06/08/18 11:00 83 18 96/59 (71) 98 06/08/18 10:00 87 20 107/60 (76) 97 06/08/18 09:00 88 20 93/61 (72) 97 06/08/18 08:51 89 20 91 2.0 28 06/08/18 08:04 77 24 96 Bi-pap 25 06/08/18 08:00 99.4 79 19 111/66 (81) 95 06/08/18 08:00 68 06/08/18 08:00 Bi-pap 06/08/18 08:00 25 06/08/18 07:29 75 21 96 Bi-pap 25 06/08/18 07:29 75 21 96 Full Face 25 06/08/18 07:00 79 16 117/69 (85) 97 06/08/18 06:00 71 15 98/57 (71) 95 06/08/18 05:12 76 22 94 Full Face 25 06/08/18 05:00 70 16 106/58 (74) 97 06/08/18 04:00 97.9 79 19 95/64 (74) 93 06/08/18 04:00 25 06/08/18 04:00 67 06/08/18 04:00 Bi-pap 06/08/18 03:14 72 16 97 Bi-pap 25 06/08/18 03:02 77 17 97 Bi-pap 25 06/08/18 03:00 77 17 97 Facial 25 06/08/18 03:00 73 16 96/59 (71) 97 06/08/18 02:00 74 16 107/64 (78) 96 06/08/18 01:00 73 22 91/55 (67) 95 06/08/18 00:59 73 16 95 Facial 25 06/08/18 00:00 81 06/08/18 00:00 25 06/08/18 00:00 98.0 79 19 96/67 (77) 95 06/08/18 00:00 Bi-pap 06/07/18 23:00 81 19 87/51 (63) 95 06/07/18 22:50 86 16 100 Bi-pap 25 06/07/18 22:37 90 20 94 Bi-pap 25 06/07/18 22:36 90 20 94 Facial 25 06/07/18 22:00 89 19 88/51 (63) 95 06/07/18 21:00 73 17 95/64 (74) 97 18 20:38 79 17 98 Facial 25 06/07/18 20:00 25 06/07/18 20:00 Bi-pap 06/07/18 20:00 97.9 73 16 90/59 (69) 96 06/07/18 20:00 73 18 19:35 71 16 100 Bi-pap 25 06/07/18 19:26 75 16 96 Bi-pap 25 18 19:25 75 16 96 Facial 25 06/07/18 19:00 73 16 86/58 (67) 98 18 18:00 30 18 17:27 85 21 98 Full Face 30 06/07/18 16:00 30 06/07/18 16:00 Bi-pap 06/07/18 16:00 97.8 85 21 100/71 (81) 97 18 15:45 83 06/07/18 15:43 88 18 97 Bi-pap 28 06/07/18 15:32 85 18 95 Bi-pap 28 06/07/18 15:25 88 18 96 Full Face 30 Intake and Output 06/07/18 06/08/18 19:00 07:00 Intake Total 165 ml 240 ml Output Total 150 ml 880 ml Balance 15 ml -640 ml Intake Oral 240 ml IV Total 165 ml Output Urine Total 150 ml 880 ml Laboratory Tests 06/08/18 04:40: White Blood Count 10.7, Red Blood Count 3.78L, Hemoglobin 11.1L, Hematocrit 35.6L, Mean Corpuscular Volume 94, Mean Corpuscular Hemoglobin 29.3, Mean Corpuscular Hemoglobin Concent 31.1L, Red Cell Distribution Width 16.0H, Platelet Count 135L, Mean Platelet Volume 9.7, Neutrophils (%) (Auto) , Lymphocytes (%) (Auto) , Monocytes (%) (Auto) , Eosinophils (%) (Auto) , Basophils (%) (Auto) , Sodium Level 142, Potassium Level 3.8, Chloride Level 100 , Carbon Dioxide Level 41*H, Blood Urea Nitrogen 42H, Creatinine 1.0, Estimat Glomerular Filtration Rate , Glucose Level 127H, Calcium Level 8.8 06/08/18 08:33: Arterial Blood pH 7.433, Arterial Blood Partial Pressure CO2 69.0*H, Arterial Blood Partial Pressure O2 64.9L, Arterial Blood HCO3 45.1*H, Arterial Blood Oxygen Saturation 91.9L, Arterial Blood Base Excess 17.5*H, Delon Test Positive Height (Feet): 5 Height (Inches): 8.00 Weight (Pounds): 113 Neck: supple Cardiovascular: normal rate Respiratory/Chest: rhonchi - bilaterally Abdomen: soft Oskar Nichole MD Jun 08, 2018 15:20
[2018-06-08] MEDS: Vancomycin 500mg/D5W 110ml IVPB SCH ×2 (16:19)
--- NOTE | 2018-06-08 16:30 | NUR ---
NURSE NOTES: Patient [address]17 abg results are elevated Dr. White contacted and patient is now on continuous bipap 15/5. 25&, 02 saturation 89%, no acute distress noted. Patient denies pain. Patient head of bed is at 30 degrees, bed is locked and in the lowest position. Pateint is able to reposition self. Will continue to monitor patient and follow plan of care.
--- NOTE | 2018-06-08 18:30 | NUR ---
NURSE NOTES: Patient had a large bowel movement. Patient consumed 75% of his dinner. Patient denies pain at this time. Patient family is at bedside. While eating dinner patient was put on 2 liter nasal cannula. Patient line changed, dressing changed, head of bd is at 30 degrees, 3 side rails are up, be d is locked and in the lowest position. Call light is within reach. Will continue to monitor patient and follow plan of care.
[2018-06-08] MEDS: Vancomycin 750mg/NS 250ml IVPB SCH (18:44)
--- NOTE | 2018-06-08 19:05 | NUR ---
HAND-OFF: Report given to GENNY ALEGRIA. No change in condition.
--- NOTE | 2018-06-08 19:23 | NUR ---
RESPIRATORY NOTE: Received pt on BiPAP 15/, backup rate 16, 25%. Pt is on a Full Face mask, skin intact, no redness/breakdowns noted at this time. Foam tape applied on pt"s forehead/cheeks/chin to prevent any mask irritations. Pt alert/awake/follows commands. Son currently at bedside. B/S bogdan. clear, nonproductive cough. BiPAP plugged into red outlet. Pt resting comfortably, denies SOB/chest pain at this time. Will continue plan of care.
[2018-06-08] MEDS ORDERED: Tubing IV Secondary IV ONE (19:35)
[2018-06-08] MEDS ORDERED: NS 275ml ONE (19:35)
--- NOTE | 2018-06-08 19:45 | NUR ---
NURSE NOTES: PATIENT ALERT, ORIENTED, RESPIRATION REGULAR, ON FULL FACE MASK, BiPAP 15/5, BACKUP RATE 16, FIO2 25%, O2 SATURATION OVER 95% NOTED, ABDOMEN SOFT, NORMAL BOWEL SOUND X4, NO BOWEL MOVEMENT, CONDOM CATH DISCONTINUED STATUS, APPLIED NEW CONDOM CATH, YELLOW URINE COLOR NOTED, PERIPHERAL LINE TO RIGHT FOREARM, INTACT AND PATENT, PROVIDED CALL LIGHT WITHIN REACH, MADE LOWER BED POSITION, WILL CONTINUE TO MONITOR.
--- NOTE | 2018-06-08 22:00 | NUR ---
NURSE NOTES: SELF POSITION STATUS, KEPT HOB 30 DEGREE, WILL CONTINUE PLAN OF CARE.
[2018-06-09] VITALS (14 sets, daily range): BP systolic 92–125; BP diastolic 56–88
--- NOTE | 2018-06-09 | NUR ---
NURSE NOTES: NO PAIN OR DISTRESS NOTED AT THIS TIME.
--- NOTE | 2018-06-09 01:25 | General Progress Note ---
Assessment/Plan Problem List: (1) Major depressive disorder ICD Codes: F32.9 - Major depressive disorder, single episode, unspecified SNOMED: 409809865 Status: stable, progressing Assessment/Plan Celexa 20mg qam Provided st/ro Subjective Neurologic/Psychiatric: Reports: anxiety, depressed Allergies: Coded Allergies: No Known Allergies (Unverified , 06/05/18) Objective Last 24 Hour Vital Signs Date Time Temp Pulse Resp B/P (MAP) Pulse Ox O2 Delivery O2 Flow Rate FiO2 06/09/18 01:20 71 16 96 Full Face 25 06/09/18 00:00 25 06/09/18 00:00 97.8 74 17 97/57 (70) 94 06/09/18 00:00 Bi-pap 06/08/18 23:20 70 21 99 Bi-pap 25 06/08/18 23:10 73 17 97 Bi-pap 25 06/08/18 23:10 71 17 97 Full Face 25 06/08/18 23:00 80 18 97/54 (68) 97 06/08/18 22:00 77 18 97/67 (77) 97 06/08/18 21:18 89 21 97 Full Face 25 06/08/18 21:00 83 19 101/64 (76) 95 06/08/18 20:00 Bi-pap 06/08/18 20:00 25 06/08/18 20:00 97.7 80 17 97/60 (72) 96 06/08/18 19:59 79 06/08/18 19:30 76 19 99 Bi-pap 25 06/08/18 19:20 78 22 97 Bi-pap 25 06/08/18 19:19 78 22 97 Full Face 25 06/08/18 19:00 84 21 115/68 (84) 96 06/08/18 18:00 95 23 103/64 (77) 95 06/08/18 17:00 98.2 89 23 100/59 (73) 93 06/08/18 16:44 88 24 92 Full Face 25 06/08/18 16:00 2.0 06/08/18 16:00 Bi-pap 06/08/18 16:00 89 22 96/60 (72) 96 06/08/18 16:00 92 06/08/18 15:41 87 16 99 Nasal Cannula 2.0 28 06/08/18 15:27 85 16 95 2.0 28 06/08/18 15:25 87 16 95 Nasal Cannula 2.0 28 06/08/18 15:00 86 19 99/63 (75) 96 06/08/18 14:00 89 22 96/60 (72) 98 06/08/18 13:00 98 20 80/44 (56) 98 06/08/18 12:32 86 22 100 Nasal Cannula 2.0 28 06/08/18 12:13 84 96 2.0 28 06/08/18 12:00 2.0 06/08/18 12:00 83 22 104/59 (74) 100 06/08/18 12:00 Bi-pap 06/08/18 12:00 86 06/08/18 11:00 83 18 96/59 (71) 98 06/08/18 10:00 87 20 107/60 (76) 97 06/08/18 09:00 88 20 93/61 (72) 97 06/08/18 08:51 89 20 91 2.0 28 06/08/18 08:04 77 24 96 Bi-pap 25 06/08/18 08:00 99.4 79 19 111/66 (81) 95 06/08/18 08:00 68 06/08/18 08:00 Bi-pap 06/08/18 08:00 25 06/08/18 07:29 75 21 96 Bi-pap 25 06/08/18 07:29 75 21 96 Full Face 25 06/08/18 07:00 79 16 117/69 (85) 97 06/08/18 06:00 71 15 98/57 (71) 95 06/08/18 05:12 76 22 94 Full Face 25 06/08/18 05:00 70 16 106/58 (74) 97 06/08/18 04:00 97.9 79 19 95/64 (74) 93 06/08/18 04:00 25 06/08/18 04:00 67 06/08/18 04:00 Bi-pap 06/08/18 03:14 72 16 97 Bi-pap 25 06/08/18 03:02 77 17 97 Bi-pap 25 06/08/18 03:00 77 17 97 Facial 25 06/08/18 03:00 73 16 96/59 (71) 97 06/08/18 02:00 74 16 107/64 (78) 96 Intake and Output 06/08/18 06/09/18 19:00 07:00 Intake Total 360 ml Output Total 1380 ml 680 ml Balance -1380 ml -320 ml IV Total 360 ml Output Urine Total 1380 ml 680 ml Laboratory Tests 06/08/18 04:40: White Blood Count 10.7, Red Blood Count 3.78L, Hemoglobin 11.1L, Hematocrit 35.6L, Mean Corpuscular Volume 94, Mean Corpuscular Hemoglobin 29.3, Mean Corpuscular Hemoglobin Concent 31.1L, Red Cell Distribution Width 16.0H, Platelet Count 135L, Mean Platelet Volume 9.7, Neutrophils (%) (Auto) , Lymphocytes (%) (Auto) , Monocytes (%) (Auto) , Eosinophils (%) (Auto) , Basophils (%) (Auto) , Sodium Level 142, Potassium Level 3.8, Chloride Level 100 , Carbon Dioxide Level 41*H, Blood Urea Nitrogen 42H, Creatinine 1.0, Estimat Glomerular Filtration Rate , Glucose Level 127H, Calcium Level 8.8 06/08/18 08:33: Arterial Blood pH 7.433, Arterial Blood Partial Pressure CO2 69.0*H, Arterial Blood Partial Pressure O2 64.9L, Arterial Blood HCO3 45.1*H, Arterial Blood Oxygen Saturation 91.9L, Arterial Blood Base Excess 17.5*H, Delon Test Positive 06/08/18 15:17: Arterial Blood pH 7.390, Arterial Blood Partial Pressure CO2 73.6*H, Arterial Blood Partial Pressure O2 77.2, Arterial Blood HCO3 43.6*H, Arterial Blood Oxygen Saturation 94.3L, Arterial Blood Base Excess 15.4*H, Delon Test Positive 06/08/18 15:40: Vancomycin Level Trough 3.6L Height (Feet): 5 Height (Inches): 8.00 Weight (Pounds): 113 General Appearance: no apparent distress Destiny Mares MD Jun 09, 2018 01:25
--- NOTE | 2018-06-09 02:00 | NUR ---
NURSE NOTES: PATIENT DENIED SOB OR DISTRESS AT THIS TIME.
--- NOTE | 2018-06-09 02:23 | Pulmonology Progress Note ---
Assessment/Plan Assessment/Plan Pulmonary Consultation Note Date Patient seen: 06/08/2018 HPI Patient is a 72-year-old male with previous history of COPD, brought in by EMS after increased bilateral lower extremity pain. Patient reports having increased discomfort to both feet. The patient denies any fever. He reports having drainage to both legs.The patient reports having normal sensation as well as ability to move toes on both feet. Patient's son patient had been having increased difficulty breathing and been off his medications for COPD. The patient has no known heart conditions. still on BIPAP TF to ICU Allergies: No Known Allergies Past Medical History: COPD ROS: COPD, shortness of breath, LE pain, rest Negative Physical Exam Vital Signs Date Time Temp Pulse Resp B/P (MAP) Pulse Ox O2 Delivery O2 Flow Rate FiO2 06/05/18 06:34 99.1 63 20 104/60 99 Room Air General Appearance: thin, Chronically Ill Head: normocephalic ENT: moist mucus membranes Neck: limited range of motion Respiratory: decreased breath sounds, wheezing Cardiovascular #1: regular rate, rhythm, edema - 3+ edema Gastrointestinal: normal inspection, non tender, soft Musculoskeletal: swelling - bilateral, foot swelling Neurologic: normal inspection, alert, oriented x3, responsive Skin: other - urticarial rash to left lower extremity with drainage Impression: COPD exacerbation Emphysema Pedal edema Left leg cellulitis Plan IV antibiotics Solumedrol HHN BiPAP PRN O2 PRN SQ hepairin Analgesia Labs Test 06/05/18 07:11 06/05/18 08:39 06/05/18 09:00 06/05/18 10:29 White Blood Count 8.0 K/UL (4.8-10.8) Red Blood Count 4.70 M/UL (4.70-6.10) Hemoglobin 13.6 G/DL (14.2-18.0) Hematocrit 42.8 % (42.0-52.0) Mean Corpuscular Volume 91 FL (80-99) Mean Corpuscular Hemoglobin 28.9 PG (27.0-31.0) Mean Corpuscular Hemoglobin Concent 31.7 G/DL (32.0-36.0) Red Cell Distribution Width 16.3 % (11.6-14.8) Platelet Count 148 K/UL (150-450) Mean Platelet Volume 10.8 FL (6.5-10.1) Neutrophils (%) (Auto) % (45.0-75.0) Lymphocytes (%) (Auto) % (20.0-45.0) Monocytes (%) (Auto) % (1.0-10.0) Eosinophils (%) (Auto) % (0.0-3.0) Basophils (%) (Auto) % (0.0-2.0) Differential Total Cells Counted 100 Neutrophils % (Manual) 77 % (45-75) Lymphocytes % (Manual) 5 % (20-45) Monocytes % (Manual) 5 % (1-10) Eosinophils % (Manual) 0 % (0-3) Basophils % (Manual) 0 % (0-2) Band Neutrophils 13 % (0-8) Platelet Estimate Decreased Platelet Morphology Normal Red Blood Cell Morphology Normal Sodium Level 138 MMOL/L (136-145) Potassium Level 5.3 MMOL/L (3.5-5.1) Chloride Level 100 MMOL/L (98-107) Carbon Dioxide Level 34 MMOL/L (21-32) Anion Gap 4 mmol/L (5-15) Blood Urea Nitrogen 35 mg/dL (7-18) Creatinine 1.4 MG/DL (0.55-1.30) Estimat Glomerular Filtration Rate mL/min (>60) Glucose Level 93 MG/DL (74-106) Calcium Level 9.2 MG/DL (8.5-10.1) Total Bilirubin 1.5 MG/DL (0.2-1.0) Direct Bilirubin 0.5 MG/DL (0.0-0.3) Aspartate Amino Transf (AST/SGOT) 104 U/L (15-37) Alanine Aminotransferase (ALT/SGPT) 98 U/L (12-78) Alkaline Phosphatase 85 U/L (46-116) Total Creatine Kinase 511 U/L (26-308) Creatine Kinase MB 7.1 NG/ML (0.0-3.6) Creatine Kinase MB Relative Index 1.3 Troponin I 0.054 ng/mL (0.000-0.056) Pro-B-Type Natriuretic Peptide 7468 pg/mL (0-125) Total Protein 7.9 G/DL (6.4-8.2) Albumin 2.9 G/DL (3.4-5.0) Globulin 5.0 g/dL Albumin/Globulin Ratio 0.6 (1.0-2.7) Urine Color Brown Urine Appearance Cloudy Urine pH 5 (4.5-8.0) Urine Specific [place] 1.025 (1.005-1.035) Urine Protein 2+ (NEGATIVE) Urine Glucose (UA) Negative (NEGATIVE) Urine Ketones Negative (NEGATIVE) Urine Blood 4+ (NEGATIVE) Urine Nitrite Negative (NEGATIVE) Urine Bilirubin 1+ (NEGATIVE) Urine Ictotest Negative (NEGATIVE) Urine Urobilinogen 4 MG/DL (0.0-1.0) Urine Leukocyte Esterase 1+ (NEGATIVE) Urine RBC 5-10 /HPF (0 - 0) Urine WBC 2-4 /HPF (0 - 0) Urine Squamous Epithelial Cells Occasional /LPF Urine Amorphous Sediment Many /LPF (NONE) Urine Bacteria Few /HPF (NONE) Urine Mucus Moderate /LPF (NONE/OCC) Lactic Acid Level 2.80 mmol/L (0.66-2.22) Arterial Blood pH 7.299 (7.350-7.450) Arterial Blood Partial Pressure CO2 66.0 mmHg (35.0-45.0) Arterial Blood Partial Pressure O2 53.7 mmHg (75.0-100.0) Arterial Blood HCO3 31.7 mmol/L (22.0-26.0) Arterial Blood Oxygen Saturation 82.5 % (95-100) Arterial Blood Base Excess 3.5 (-2-2) Delon Test Positive EKG Diagnostic Results Rate: normal Rhythm: NSR ST Segments: no acute changes Subjective ROS Limited/Unobtainable: No Allergies: Coded Allergies: No Known Allergies (Unverified , 06/05/18) Objective Last 24 Hour Vital Signs Date Time Temp Pulse Resp B/P (MAP) Pulse Ox O2 Delivery O2 Flow Rate FiO2 06/09/18 01:20 71 16 96 Full Face 25 06/09/18 00:00 25 06/09/18 00:00 97.8 74 17 97/57 (70) 94 06/09/18 00:00 Bi-pap 06/08/18 23:20 70 21 99 Bi-pap 25 06/08/18 23:10 73 17 97 Bi-pap 25 06/08/18 23:10 71 17 97 Full Face 25 06/08/18 23:00 80 18 97/54 (68) 97 06/08/18 22:00 77 18 97/67 (77) 97 06/08/18 21:18 89 21 97 Full Face 25 06/08/18 21:00 83 19 101/64 (76) 95 06/08/18 20:00 Bi-pap 06/08/18 20:00 25 06/08/18 20:00 97.7 80 17 97/60 (72) 96 06/08/18 19:59 79 06/08/18 19:30 76 19 99 Bi-pap 25 06/08/18 19:20 78 22 97 Bi-pap 25 06/08/18 19:19 78 22 97 Full Face 25 06/08/18 19:00 84 21 115/68 (84) 96 06/08/18 18:00 95 23 103/64 (77) 95 06/08/18 17:00 98.2 89 23 100/59 (73) 93 06/08/18 16:44 88 24 92 Full Face 25 06/08/18 16:00 2.0 06/08/18 16:00 Bi-pap 06/08/18 16:00 89 22 96/60 (72) 96 06/08/18 16:00 92 06/08/18 15:41 87 16 99 Nasal Cannula 2.0 28 06/08/18 15:27 85 16 95 2.0 28 06/08/18 15:25 87 16 95 Nasal Cannula 2.0 28 06/08/18 15:00 86 19 99/63 (75) 96 06/08/18 14:00 89 22 96/60 (72) 98 06/08/18 13:00 98 20 80/44 (56) 98 06/08/18 12:32 86 22 100 Nasal Cannula 2.0 28 06/08/18 12:13 84 96 2.0 28 06/08/18 12:00 2.0 06/08/18 12:00 83 22 104/59 (74) 100 06/08/18 12:00 Bi-pap 06/08/18 12:00 86 06/08/18 11:00 83 18 96/59 (71) 98 06/08/18 10:00 87 20 107/60 (76) 97 06/08/18 09:00 88 20 93/61 (72) 97 06/08/18 08:51 89 20 91 2.0 28 06/08/18 08:04 77 24 96 Bi-pap 25 06/08/18 08:00 99.4 79 19 111/66 (81) 95 06/08/18 08:00 68 06/08/18 08:00 Bi-pap 06/08/18 08:00 25 06/08/18 07:29 75 21 96 Bi-pap 25 06/08/18 07:29 75 21 96 Full Face 25 06/08/18 07:00 79 16 117/69 (85) 97 06/08/18 06:00 71 15 98/57 (71) 95 06/08/18 05:12 76 22 94 Full Face 25 06/08/18 05:00 70 16 106/58 (74) 97 06/08/18 04:00 97.9 79 19 95/64 (74) 93 06/08/18 04:00 25 06/08/18 04:00 67 06/08/18 04:00 Bi-pap 06/08/18 03:14 72 16 97 Bi-pap 25 06/08/18 03:02 77 17 97 Bi-pap 25 06/08/18 03:00 77 17 97 Facial 25 06/08/18 03:00 73 16 96/59 (71) 97 Intake and Output 06/08/18 06/09/18 18:59 06:59 Intake Total 360 ml Output Total 1380 ml 680 ml Balance -1380 ml -320 ml IV Total 360 ml Output Urine Total 1380 ml 680 ml Laboratory Tests 06/08/18 04:40: White Blood Count 10.7, Red Blood Count 3.78L, Hemoglobin 11.1L, Hematocrit 35.6L, Mean Corpuscular Volume 94, Mean Corpuscular Hemoglobin 29.3, Mean Corpuscular Hemoglobin Concent 31.1L, Red Cell Distribution Width 16.0H, Platelet Count 135L, Mean Platelet Volume 9.7, Neutrophils (%) (Auto) , Lymphocytes (%) (Auto) , Monocytes (%) (Auto) , Eosinophils (%) (Auto) , Basophils (%) (Auto) , Sodium Level 142, Potassium Level 3.8, Chloride Level 100 , Carbon Dioxide Level 41*H, Blood Urea Nitrogen 42H, Creatinine 1.0, Estimat Glomerular Filtration Rate , Glucose Level 127H, Calcium Level 8.8 06/08/18 08:33: Arterial Blood pH 7.433, Arterial Blood Partial Pressure CO2 69.0*H, Arterial Blood Partial Pressure O2 64.9L, Arterial Blood HCO3 45.1*H, Arterial Blood Oxygen Saturation 91.9L, Arterial Blood Base Excess 17.5*H, Delon Test Positive 06/08/18 15:17: Arterial Blood pH 7.390, Arterial Blood Partial Pressure CO2 73.6*H, Arterial Blood Partial Pressure O2 77.2, Arterial Blood HCO3 43.6*H, Arterial Blood Oxygen Saturation 94.3L, Arterial Blood Base Excess 15.4*H, Delon Test Positive 06/08/18 15:40: Vancomycin Level Trough 3.6L Current Medications Medications (Trade) Dose Ordered Sig/Brittani Route PRN Reason Start Time Stop Time Status Last Admin Dose Admin Albuterol/ Ipratropium (Albuterol/ Ipratropium) 3 ml Q4HRT HHN 06/05/18 15:00 06/10/18 14:59 06/08/18 23:10 Ceftriaxone Sodium 1 gm/ Dextrose 55 ml @ 110 mls/hr DAILY IVPB 06/05/18 15:00 06/12/18 14:59 06/08/18 09:18 Citalopram Hydrobromide (celeXA) 20 mg DAILY ORAL 06/07/18 09:00 07/07/18 08:59 06/08/18 09:17 Doxycycline Hyclate 100 mg/ Dextrose 110 ml @ 110 mls/hr Q12HR IV 06/05/18 18:00 06/12/18 17:59 06/08/18 20:34 Furosemide (Lasix) 40 mg EVERY 12 HOURS IV 06/05/18 12:00 07/05/18 11:59 06/08/18 20:34 Heparin Sodium (Porcine) (Heparin 5000 units/ml) 5,000 units EVERY 12 HOURS SUBQ 06/05/18 21:00 07/05/18 20:59 06/08/18 20:35 Methylprednisolone Sodium Succinate (Solu-MEDROL) 40 mg EVERY 8 HOURS IVP 06/08/18 22:00 07/05/18 14:59 06/08/18 21:33 Pantoprazole (Protonix) 40 mg DAILY ORAL 06/06/18 09:00 07/06/18 08:59 06/08/18 09:17 Vancomycin HCl (Vanco rx to dose) 1 ea DAILY PRN MISC Per rx protocol 06/05/18 14:00 07/05/18 13:59 Vancomycin/Sodium Chloride 250 ml @ 166.667 mls/hr Q12H IVPB 06/08/18 18:00 06/13/18 17:59 06/08/18 18:44 Johny White MD Jun 09, 2018 02:23
[2018-06-09] MEDS: Albuterol/Ipratropium 3ml neb HHN SCH ×6 (03:29→22:41)
--- NOTE | 2018-06-09 04:00 | NUR ---
NURSE NOTES: MORNING CARE WAS DONE, NO BOWEL MOVEMENT.
[2018-06-09] MEDS: Solu-MEDROL 40mg Inj IVP SCH ×3 (05:47→21:25)
[2018-06-09] MEDS: Vancomycin 750mg/NS 250ml IVPB SCH (05:48)
[2018-06-09 05:53] LABS: HEMOGLOBIN 10.7 G/DL (14.2-18.0); MEAN CORPUSCULAR VOLUME 95 FL (80-99); PLATELET COUNT 137 K/UL (150-450); RED BLOOD COUNT 3.67 M/UL (4.70-6.10); RED CELL DISTRIBUTION WIDTH 15.5 % (11.6-14.8); WHITE BLOOD COUNT 7.8 K/UL (4.8-10.8)
[2018-06-09 06:01] LABS: ANION GAP 0 mmol/L (5-15); BLOOD UREA NITROGEN 30 mg/dL (7-18); CALCIUM 8.4 MG/DL (8.5-10.1); CHLORIDE 99 MMOL/L (98-107); POTASSIUM 3.7 MMOL/L (3.5-5.1); SODIUM 143 MMOL/L (136-145)
[2018-06-09 06:02] LABS: CARBON DIOXIDE 45 MMOL/L (21-32)
--- NOTE | 2018-06-09 06:10 | NUR ---
NURSE NOTES: ASLEEP STATUS, NO SOB OR DISTRESS NOTED AT THIS TIME.
--- NOTE | 2018-06-09 07:15 | NUR ---
HAND-OFF: Report given to FAUSTO/GENNY.
--- NOTE | 2018-06-09 08:10 | NUR ---
NURSE NOTES: Patient was received from GENNY Cooper.Awake and alert with bi-pap on 15/5 FiO2 25%. Afebrile at this time, bowel sounds present in all 4 quadrants. Condom catheter in place draining yellow straw urine. Foam dressing bilateral leg leg dry and intact with no apparent drainage. Left forearm 22 gauge patent with no apparent infiltration . HOB elevated at 35 degree to prevent aspiration. Will continue to monitor patient and follow plan of care.
--- NOTE | 2018-06-09 08:29 | NUR ---
Received pt on BiPAP 15/5, BUR 16, FIO2 25%. Patient is currently on a Full Face mask. No skin breakdown or redness noted at this time. Tape is in place. Pt alert, awake, and follows commands.Clear diminished breath sounds bilaterally. BiPAP plugged into red outlet. Alarms on and audible. Will continue to monitor throughout the day.
[2018-06-09] MEDS: Citalopram Hydrobromide 10mg Tab ORAL SCH (08:42)
[2018-06-09] MEDS: Doxycycline Hyclate 100 MG in D5W 110 ML IV SCH ×2 (08:43→21:25)
[2018-06-09] MEDS: Heparin 5000 units/ml inj SUBQ SCH ×2 (08:45→21:27)
[2018-06-09] MEDS: cefTRIAXone 1 GM in D5W 55 ML IVPB SCH (09:06)
--- NOTE | 2018-06-09 10:28 | NUR ---
NURSE NOTES: Patient turned and repositioned, ate 100 % at breakfast.Order to transfer to [facility] room 238-1. Order noted . cleaned and dry. No belongings at bedside.
--- NOTE | 2018-06-09 10:47 | Infectious Diseases Prog Note ---
Assessment/Plan Assessment/Plan antibiotics : vancomycin iv, ceftriaxone, doxycycline A 1. leg cellulitis improving 2. respiratory failure 3. COPD exacerbation 4. increased LFT P 1. continue vancomycin iv, ceftriaxone, doxycycline 2. will follow up cultures Subjective ROS Limited/Unobtainable: Yes Allergies: Coded Allergies: No Known Allergies (Unverified , 06/05/18) Objective Vital Signs Last 24 Hour Vital Signs Date Time Temp Pulse Resp B/P (MAP) Pulse Ox O2 Delivery O2 Flow Rate FiO2 06/09/18 10:00 88 20 116/71 (86) 96 06/09/18 09:21 88 23 96 Full Face 25 06/09/18 09:00 77 20 122/66 (84) 96 06/09/18 08:00 98.0 72 18 121/65 (83) 95 06/09/18 08:00 50 06/09/18 08:00 75 06/09/18 08:00 Bi-pap 06/09/18 07:10 73 19 100 Bi-pap 25 06/09/18 07:10 72 19 100 Full Face 25 06/09/18 07:05 75 19 100 Bi-pap 25 06/09/18 07:00 75 20 104/56 (72) 96 06/09/18 06:00 73 20 122/66 (84) 94 06/09/18 05:00 71 13 112/71 (85) 93 06/09/18 04:55 72 16 97 Full Face 25 06/09/18 04:00 25 06/09/18 04:00 97.7 80 18 105/61 (76) 95 06/09/18 04:00 75 06/09/18 04:00 Bi-pap 06/09/18 03:40 84 22 99 Bi-pap 25 06/09/18 03:30 83 19 99 Bi-pap 25 06/09/18 03:30 82 19 99 Full Face 25 06/09/18 03:00 82 20 107/59 (75) 100 06/09/18 02:00 74 18 117/71 (86) 98 06/09/18 01:20 71 16 96 Full Face 25 06/09/18 01:00 75 17 108/67 (81) 95 06/09/18 00:00 25 06/09/18 00:00 97.8 74 17 97/57 (70) 94 06/09/18 00:00 94 12/22/18 00:00 Bi-pap 06/08/18 23:20 70 21 99 Bi-pap 25 06/08/18 23:10 73 17 97 Bi-pap 25 06/08/18 23:10 71 17 97 Full Face 25 06/08/18 23:00 80 18 97/54 (68) 97 06/08/18 22:00 77 18 97/67 (77) 97 06/08/18 21:18 89 21 97 Full Face 25 06/08/18 21:00 83 19 101/64 (76) 95 06/08/18 20:00 Bi-pap 06/08/18 20:00 25 06/08/18 20:00 97.7 80 17 97/60 (72) 96 06/08/18 19:59 79 06/08/18 19:30 76 19 99 Bi-pap 25 06/08/18 19:20 78 22 97 Bi-pap 25 06/08/18 19:19 78 22 97 Full Face 25 06/08/18 19:00 84 21 115/68 (84) 96 06/08/18 18:00 95 23 103/64 (77) 95 06/08/18 17:00 98.2 89 23 100/59 (73) 93 06/08/18 16:44 88 24 92 Full Face 25 06/08/18 16:00 2.0 06/08/18 16:00 Bi-pap 06/08/18 16:00 89 22 96/60 (72) 96 06/08/18 16:00 92 06/08/18 15:41 87 16 99 Nasal Cannula 2.0 28 06/08/18 15:27 85 16 95 2.0 28 06/08/18 15:25 87 16 95 Nasal Cannula 2.0 28 06/08/18 15:00 86 19 99/63 (75) 96 06/08/18 14:00 89 22 96/60 (72) 98 06/08/18 13:00 98 20 80/44 (56) 98 06/08/18 12:32 86 22 100 Nasal Cannula 2.0 28 06/08/18 12:13 84 96 2.0 28 06/08/18 12:00 2.0 06/08/18 12:00 83 22 104/59 (74) 100 06/08/18 12:00 Bi-pap 06/08/18 12:00 86 06/08/18 11:00 83 18 96/59 (71) 98 Height (Feet): 5 Height (Inches): 8.00 Weight (Pounds): 113 HEENT: other - on bipap Respiratory/Chest: lungs clear Cardiovascular: normal rate, regular rhythm, no gallop/murmur Abdomen: soft, non tender Extremities: no edema Laboratory Tests Test 06/08/18 15:17 06/08/18 15:40 06/09/18 04:50 06/09/18 07:20 Arterial Blood pH 7.390 (7.350-7.450) 7.439 (7.350-7.450) Arterial Blood Partial Pressure CO2 73.6 mmHg (35.0-45.0) *H 62.7 mmHg (35.0-45.0) *H Arterial Blood Partial Pressure O2 77.2 mmHg (75.0-100.0) 88.2 mmHg (75.0-100.0) Arterial Blood HCO3 43.6 mmol/L (22.0-26.0) *H 41.5 mmol/L (22.0-26.0) *H Arterial Blood Oxygen Saturation 94.3 % (95-100) L 96.5 % (95-100) Arterial Blood Base Excess 15.4 (-2-2) *H 14.8 (-2-2) *H Delon Test Positive Positive Vancomycin Level Trough 3.6 ug/mL (5.0-12.0) L White Blood Count 7.8 K/UL (4.8-10.8) Red Blood Count 3.67 M/UL (4.70-6.10) L Hemoglobin 10.7 G/DL (14.2-18.0) L Hematocrit 35.0 % (42.0-52.0) L Mean Corpuscular Volume 95 FL (80-99) Mean Corpuscular Hemoglobin 29.2 PG (27.0-31.0) Mean Corpuscular Hemoglobin Concent 30.7 G/DL (32.0-36.0) L Red Cell Distribution Width 15.5 % (11.6-14.8) H Platelet Count 137 K/UL (150-450) L Mean Platelet Volume 8.4 FL (6.5-10.1) Neutrophils (%) (Auto) % (45.0-75.0) Lymphocytes (%) (Auto) % (20.0-45.0) Monocytes (%) (Auto) % (1.0-10.0) Eosinophils (%) (Auto) % (0.0-3.0) Basophils (%) (Auto) % (0.0-2.0) Differential Total Cells Counted 100 Neutrophils % (Manual) 88 % (45-75) H Lymphocytes % (Manual) 7 % (20-45) L Monocytes % (Manual) 2 % (1-10) Eosinophils % (Manual) 2 % (0-3) Basophils % (Manual) 0 % (0-2) Myelocytes % 1 % (0-0) H Band Neutrophils 0 % (0-8) Platelet Estimate Decreased L Platelet Morphology Normal Anisocytosis 1+ Sodium Level 143 MMOL/L (136-145) Potassium Level 3.7 MMOL/L (3.5-5.1) Chloride Level 99 MMOL/L (98-107) Carbon Dioxide Level 45 MMOL/L (21-32) *H Anion Gap 0 mmol/L (5-15) L Blood Urea Nitrogen 30 mg/dL (7-18) H Creatinine 1.0 MG/DL (0.55-1.30) Estimat Glomerular Filtration Rate mL/min (>60) Glucose Level 177 MG/DL (74-106) H Calcium Level 8.4 MG/DL (8.5-10.1) L Current Medications Medications (Trade) Dose Ordered Sig/Brittani Route PRN Reason Start Time Stop Time Status Last Admin Dose Admin Albuterol/ Ipratropium (Albuterol/ Ipratropium) 3 ml Q4HRT HHN 06/09/18 11:00 06/10/18 14:59 UNV Ceftriaxone Sodium 1 gm/ Dextrose 55 ml @ 110 mls/hr DAILY IVPB 06/10/18 09:00 06/12/18 14:59 UNV Citalopram Hydrobromide (celeXA) 20 mg DAILY ORAL 06/10/18 09:00 07/07/18 08:59 UNV Doxycycline Hyclate 100 mg/ Dextrose 110 ml @ 110 mls/hr Q12HR IV 06/09/18 21:00 06/12/18 17:59 UNV Furosemide (Lasix) 40 mg EVERY 12 HOURS IV 06/09/18 21:00 07/05/18 11:59 UNV Heparin Sodium (Porcine) (Heparin 5000 units/ml) 5,000 units EVERY 12 HOURS SUBQ 06/09/18 21:00 07/05/18 20:59 UNV Methylprednisolone Sodium Succinate (Solu-MEDROL) 40 mg EVERY 8 HOURS IVP 06/09/18 14:00 07/05/18 14:59 UNV Pantoprazole (Protonix) 40 mg DAILY ORAL 06/10/18 09:00 07/06/18 08:59 UNV Vancomycin HCl (Vanco rx to dose) 1 ea DAILY PRN MISC Per rx protocol 06/10/18 09:00 07/05/18 13:59 UNV Vancomycin/Sodium Chloride 250 ml @ 166.667 mls/hr Q12H IVPB 06/09/18 18:00 06/13/18 17:59 UNV Irlanda Gillespie MD Jun 09, 2018 10:47
--- NOTE | 2018-06-09 10:54 | NUR ---
NURSE NOTES: Pt transferred to [facility] and report given to GENNY Mcclain
--- NOTE | 2018-06-09 11:15 | NUR ---
NURSE NOTES: Patient received from GENNY Santana. Patient is awake and alert to name and place, he is able to communicate verbally with no impairment noted, he is on Bipap with setting of 15/5 with FIO2 of 25% with saturations at 92% with lungs sounds clear but diminished, patient has leg ulcer wounds, will continue plan of care.
--- NOTE | 2018-06-09 12:12 | Cardiology Progress Note ---
Assessment/Plan Status: stable, progressing Assessment/Plan Assessment/Plan Assessment/Plan 1. Severe bilateral lower extremity edema. BNP is also 7500. Due to diastolic dysfunction. On Lasix 40 mg IV b.i.d. Lower extremity duplex no DVT. Echo EF 55% 2. COPD exacerbation. On BiPAP and Solumedrol 3. Lower extremity cellulitis,on antibiotics. Subjective Cardiovascular: Reports: no symptoms Respiratory: Reports: no symptoms Gastrointestinal/Abdominal: Reports: no symptoms Genitourinary: Reports: no symptoms Subjective COVERAGE FOR GABRIELA Patient is awake and alert to name and place, he is able to communicate verbally with no impairment noted, he is on Bipap with setting of 15/5 with FIO2 of 25% with saturations at 92% Objective Last 24 Hour Vital Signs Date Time Temp Pulse Resp B/P (MAP) Pulse Ox O2 Delivery O2 Flow Rate FiO2 06/09/18 11:12 85 18 97 Full Face 25 06/09/18 11:00 Bi-pap 06/09/18 10:43 Nasal Cannula 3.0 32 06/09/18 10:43 Bi-pap 3.0 32 06/09/18 10:00 88 20 116/71 (86) 96 06/09/18 09:21 88 23 96 Full Face 25 06/09/18 09:00 77 20 122/66 (84) 96 06/09/18 08:00 98.0 72 18 121/65 (83) 95 06/09/18 08:00 50 06/09/18 08:00 75 06/09/18 08:00 Bi-pap 06/09/18 07:10 73 19 100 Bi-pap 25 06/09/18 07:10 72 19 100 Full Face 25 06/09/18 07:05 75 19 100 Bi-pap 25 06/09/18 07:00 75 20 104/56 (72) 96 06/09/18 06:00 73 20 122/66 (84) 94 06/09/18 05:00 71 13 112/71 (85) 93 06/09/18 04:55 72 16 97 Full Face 25 06/09/18 04:00 25 06/09/18 04:00 97.7 80 18 105/61 (76) 95 06/09/18 04:00 75 06/09/18 04:00 Bi-pap 06/09/18 03:40 84 22 99 Bi-pap 25 06/09/18 03:30 83 19 99 Bi-pap 25 06/09/18 03:30 82 19 99 Full Face 25 06/09/18 03:00 82 20 107/59 (75) 100 06/09/18 02:00 74 18 117/71 (86) 98 06/09/18 01:20 71 16 96 Full Face 25 06/09/18 01:00 75 17 108/67 (81) 95 06/09/18 00:00 25 06/09/18 00:00 97.8 74 17 97/57 (70) 94 06/09/18 00:00 94 06/09/18 00:00 Bi-pap 06/08/18 23:20 70 21 99 Bi-pap 25 06/08/18 23:10 73 17 97 Bi-pap 25 06/08/18 23:10 71 17 97 Full Face 25 06/08/18 23:00 80 18 97/54 (68) 97 06/08/18 22:00 77 18 97/67 (77) 97 06/08/18 21:18 89 21 97 Full Face 25 06/08/18 21:00 83 19 101/64 (76) 95 06/08/18 20:00 Bi-pap 06/08/18 20:00 25 06/08/18 20:00 97.7 80 17 97/60 (72) 96 06/08/18 19:59 79 06/08/18 19:30 76 19 99 Bi-pap 25 06/08/18 19:20 78 22 97 Bi-pap 25 06/08/18 19:19 78 22 97 Full Face 25 06/08/18 19:00 84 21 115/68 (84) 96 06/08/18 18:00 95 23 103/64 (77) 95 06/08/18 17:00 98.2 89 23 100/59 (73) 93 06/08/18 16:44 88 24 92 Full Face 25 06/08/18 16:00 2.0 06/08/18 16:00 Bi-pap 06/08/18 16:00 89 22 96/60 (72) 96 06/08/18 16:00 92 06/08/18 15:41 87 16 99 Nasal Cannula 2.0 28 06/08/18 15:27 85 16 95 2.0 28 06/08/18 15:25 87 16 95 Nasal Cannula 2.0 28 06/08/18 15:00 86 19 99/63 (75) 96 06/08/18 14:00 89 22 96/60 (72) 98 06/08/18 13:00 98 20 80/44 (56) 98 06/08/18 12:32 86 22 100 Nasal Cannula 2.0 28 06/08/18 12:13 84 96 2.0 28 General Appearance: no apparent distress, alert EENT: PERRL/EOMI, normal ENT inspection, TMs normal, pharynx normal Neck: non-tender, normal alignment, supple, normal inspection, no JVD Rhythm: NSR Cardiovascular: normal peripheral pulses, normal rate, regular rhythm Respiratory/Chest: chest wall non-tender, lungs clear, normal breath sounds Abdomen: normal bowel sounds, soft, no organomegaly, hyperactive bowel sounds Extremities: normal range of motion, non-tender, normal inspection, moderate edema 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, no motor/sensory deficits Intake and Output 06/08/18 06/09/18 19:00 07:00 Intake Total 610 ml Output Total 1380 ml 1670 ml Balance -1380 ml -1060 ml IV Total 610 ml Output Urine Total 1380 ml 1670 ml # Voids 1 Laboratory Tests Test 06/08/18 15:17 06/08/18 15:40 06/09/18 04:50 06/09/18 07:20 Arterial Blood pH 7.390 (7.350-7.450) 7.439 (7.350-7.450) Arterial Blood Partial Pressure CO2 73.6 mmHg (35.0-45.0) *H 62.7 mmHg (35.0-45.0) *H Arterial Blood Partial Pressure O2 77.2 mmHg (75.0-100.0) 88.2 mmHg (75.0-100.0) Arterial Blood HCO3 43.6 mmol/L (22.0-26.0) *H 41.5 mmol/L (22.0-26.0) *H Arterial Blood Oxygen Saturation 94.3 % (95-100) L 96.5 % (95-100) Arterial Blood Base Excess 15.4 (-2-2) *H 14.8 (-2-2) *H Delon Test Positive Positive Vancomycin Level Trough 3.6 ug/mL (5.0-12.0) L White Blood Count 7.8 K/UL (4.8-10.8) Red Blood Count 3.67 M/UL (4.70-6.10) L Hemoglobin 10.7 G/DL (14.2-18.0) L Hematocrit 35.0 % (42.0-52.0) L Mean Corpuscular Volume 95 FL (80-99) Mean Corpuscular Hemoglobin 29.2 PG (27.0-31.0) Mean Corpuscular Hemoglobin Concent 30.7 G/DL (32.0-36.0) L Red Cell Distribution Width 15.5 % (11.6-14.8) H Platelet Count 137 K/UL (150-450) L Mean Platelet Volume 8.4 FL (6.5-10.1) Neutrophils (%) (Auto) % (45.0-75.0) Lymphocytes (%) (Auto) % (20.0-45.0) Monocytes (%) (Auto) % (1.0-10.0) Eosinophils (%) (Auto) % (0.0-3.0) Basophils (%) (Auto) % (0.0-2.0) Differential Total Cells Counted 100 Neutrophils % (Manual) 88 % (45-75) H Lymphocytes % (Manual) 7 % (20-45) L Monocytes % (Manual) 2 % (1-10) Eosinophils % (Manual) 2 % (0-3) Basophils % (Manual) 0 % (0-2) Myelocytes % 1 % (0-0) H Band Neutrophils 0 % (0-8) Platelet Estimate Decreased L Platelet Morphology Normal Anisocytosis 1+ Sodium Level 143 MMOL/L (136-145) Potassium Level 3.7 MMOL/L (3.5-5.1) Chloride Level 99 MMOL/L (98-107) Carbon Dioxide Level 45 MMOL/L (21-32) *H Anion Gap 0 mmol/L (5-15) L Blood Urea Nitrogen 30 mg/dL (7-18) H Creatinine 1.0 MG/DL (0.55-1.30) Estimat Glomerular Filtration Rate mL/min (>60) Glucose Level 177 MG/DL (74-106) H Calcium Level 8.4 MG/DL (8.5-10.1) L Filsoof,Johny M. MD Jun 09, 2018 12:12
[2018-06-09] MEDS ORDERED: Isovue-370 150ml vial INJ PRN (13:45)
--- NOTE | 2018-06-09 13:51 | Pulmonology Progress Note ---
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, aspiration precautions DVT Px HEP SQ Should have outpatient PFT, PSG Subjective Allergies: Coded Allergies: No Known Allergies (Unverified , 06/05/18) Subjective TTF on/off BiPAP on HFO2 + SOB + cough no wheezing no F/C Objective Last 24 Hour Vital Signs Date Time Temp Pulse Resp B/P (MAP) Pulse Ox O2 Delivery O2 Flow Rate FiO2 06/09/18 12:43 76 21 95 Full Face 25 06/09/18 12:00 80 06/09/18 12:00 97.7 80 15 92/58 (69) 95 06/09/18 12:00 25 06/09/18 11:12 85 18 97 Full Face 25 06/09/18 11:00 Bi-pap 06/09/18 10:43 Nasal Cannula 3.0 32 06/09/18 10:43 Bi-pap 3.0 32 06/09/18 10:00 88 20 116/71 (86) 96 06/09/18 09:21 88 23 96 Full Face 25 06/09/18 09:00 77 20 122/66 (84) 96 06/09/18 08:00 98.0 72 18 121/65 (83) 95 06/09/18 08:00 50 06/09/18 08:00 75 06/09/18 08:00 Bi-pap 06/09/18 07:10 73 19 100 Bi-pap 25 06/09/18 07:10 72 19 100 Full Face 25 06/09/18 07:05 75 19 100 Bi-pap 25 06/09/18 07:00 75 20 104/56 (72) 96 06/09/18 06:00 73 20 122/66 (84) 94 06/09/18 05:00 71 13 112/71 (85) 93 06/09/18 04:55 72 16 97 Full Face 25 06/09/18 04:00 25 06/09/18 04:00 97.7 80 18 105/61 (76) 95 06/09/18 04:00 75 06/09/18 04:00 Bi-pap 06/09/18 03:40 84 22 99 Bi-pap 25 06/09/18 03:30 83 19 99 Bi-pap 25 06/09/18 03:30 82 19 99 Full Face 25 06/09/18 03:00 82 20 107/59 (75) 100 06/09/18 02:00 74 18 117/71 (86) 98 06/09/18 01:20 71 16 96 Full Face 25 06/09/18 01:00 75 17 108/67 (81) 95 06/09/18 00:00 25 06/09/18 00:00 97.8 74 17 97/57 (70) 94 06/09/18 00:00 94 06/09/18 00:00 Bi-pap 06/08/18 23:20 70 21 99 Bi-pap 25 06/08/18 23:10 73 17 97 Bi-pap 25 06/08/18 23:10 71 17 97 Full Face 25 06/08/18 23:00 80 18 97/54 (68) 97 06/08/18 22:00 77 18 97/67 (77) 97 06/08/18 21:18 89 21 97 Full Face 25 06/08/18 21:00 83 19 101/64 (76) 95 06/08/18 20:00 Bi-pap 06/08/18 20:00 25 06/08/18 20:00 97.7 80 17 97/60 (72) 96 06/08/18 19:59 79 06/08/18 19:30 76 19 99 Bi-pap 25 06/08/18 19:20 78 22 97 Bi-pap 25 06/08/18 19:19 78 22 97 Full Face 25 06/08/18 19:00 84 21 115/68 (84) 96 06/08/18 18:00 95 23 103/64 (77) 95 06/08/18 17:00 98.2 89 23 100/59 (73) 93 06/08/18 16:44 88 24 92 Full Face 25 06/08/18 16:00 2.0 06/08/18 16:00 Bi-pap 06/08/18 16:00 89 22 96/60 (72) 96 06/08/18 16:00 92 06/08/18 15:41 87 16 99 Nasal Cannula 2.0 28 06/08/18 15:27 85 16 95 2.0 28 06/08/18 15:25 87 16 95 Nasal Cannula 2.0 28 06/08/18 15:00 86 19 99/63 (75) 96 06/08/18 14:00 89 22 96/60 (72) 98 Intake and Output 06/08/18 06/09/18 19:00 07:00 Intake Total 610 ml Output Total 1380 ml 1670 ml Balance -1380 ml -1060 ml IV Total 610 ml Output Urine Total 1380 ml 1670 ml # Voids 1 General Appearance: no acute distress HEENT: normocephalic, atraumatic, anicteric, mucous membranes moist Respiratory/Chest: lungs clear - but distant Cardiovascular: normal peripheral pulses, normal rate, regular rhythm Abdomen: normal bowel sounds, soft, non tender, no organomegaly, non distended , no mass Extremities: no cyanosis, no clubbing, no edema Laboratory Tests 06/08/18 15:17: Arterial Blood pH 7.390, Arterial Blood Partial Pressure CO2 73.6*H, Arterial Blood Partial Pressure O2 77.2, Arterial Blood HCO3 43.6*H, Arterial Blood Oxygen Saturation 94.3L, Arterial Blood Base Excess 15.4*H, Delon Test Positive 06/08/18 15:40: Vancomycin Level Trough 3.6L 06/09/18 04:50: White Blood Count 7.8, Red Blood Count 3.67L, Hemoglobin 10.7L, Hematocrit 35.0L , Mean Corpuscular Volume 95, Mean Corpuscular Hemoglobin 29.2, Mean Corpuscular Hemoglobin Concent 30.7L, Red Cell Distribution Width 15.5H, Platelet Count 137L, Mean Platelet Volume 8.4, Neutrophils (%) (Auto) , Lymphocytes (%) (Auto) , Monocytes (%) (Auto) , Eosinophils (%) (Auto) , Basophils (%) (Auto) , Differential Total Cells Counted 100, Neutrophils % ( Manual) 88H, Lymphocytes % (Manual) 7L, Monocytes % (Manual) 2, Eosinophils % ( Manual) 2, Basophils % (Manual) 0, Myelocytes % 1H, Band Neutrophils 0, Platelet Estimate DecreasedL, Platelet Morphology Normal, Anisocytosis 1+, Sodium Level 143, Potassium Level 3.7, Chloride Level 99, Carbon Dioxide Level 45*H, Anion Gap 0L, Blood Urea Nitrogen 30H, Creatinine 1.0, Estimat Glomerular Filtration Rate , Glucose Level 177H, Calcium Level 8.4L 06/09/18 07:20: Arterial Blood pH 7.439, Arterial Blood Partial Pressure CO2 62.7*H, Arterial Blood Partial Pressure O2 88.2, Arterial Blood HCO3 41.5*H, Arterial Blood Oxygen Saturation 96.5, Arterial Blood Base Excess 14.8*H, Delon Test Positive Current Medications Medications (Trade) Dose Ordered Sig/Brittani Route PRN Reason Start Time Stop Time Status Last Admin Dose Admin Albuterol/ Ipratropium (Albuterol/ Ipratropium) 3 ml Q4HRT HHN 06/09/18 11:00 06/10/18 14:59 Ceftriaxone Sodium 1 gm/ Dextrose 55 ml @ 110 mls/hr DAILY IVPB 06/10/18 09:00 06/12/18 14:59 Citalopram Hydrobromide (celeXA) 20 mg DAILY ORAL 06/10/18 09:00 07/07/18 08:59 Doxycycline Hyclate 100 mg/ Dextrose 110 ml @ 110 mls/hr Q12HR IV 06/09/18 21:00 06/12/18 17:59 Furosemide (Lasix) 40 mg EVERY 12 HOURS IV 06/09/18 21:00 07/05/18 11:59 Heparin Sodium (Porcine) (Heparin 5000 units/ml) 5,000 units EVERY 12 HOURS SUBQ 06/09/18 21:00 07/05/18 20:59 Methylprednisolone Sodium Succinate (Solu-MEDROL) 40 mg EVERY 8 HOURS IVP 06/09/18 14:00 07/05/18 14:59 Pantoprazole (Protonix) 40 mg DAILY ORAL 06/10/18 09:00 07/06/18 08:59 Vancomycin HCl (Vanco rx to dose) 1 ea DAILY PRN MISC Per rx protocol 06/09/18 11:00 07/09/18 10:59 Vancomycin/Sodium Chloride 250 ml @ 166.667 mls/hr Q12H IVPB 06/09/18 18:00 06/13/18 17:59 Jason Pinedo MD Jun 09, 2018 13:51
--- NOTE | 2018-06-09 14:00 | NUR ---
NURSE NOTES: Dr. Pinedo aware of ABG results, ordered to have patient placed on bipap AC+HS and PRN, will continue plan of care.
--- NOTE | 2018-06-09 14:55 | Consultation ---
Consult Note Consult Note COVERING FOR DR. NICHOLE HEMATOLOGY-ONCOLOGY CONSULTATION REFERRING PHYSICIAN: Oskar Nichole REASON FOR CONSULT: Anemia, thrombocytopenia DATE OF CONSULT: 06/09/2018 HISTORY OF PRESENT ILLNESS: The patient is a 72-year-old gentleman who has history of chronic COPD on home oxygen. The patient's last hospitalization was about a year ago. The patient was noted to also have severe bilateral lower extremity pain and swelling and cellulitis with drainage from both legs. The patient was brought to the emergency room and was found to have a high CO2 and low oxygen saturation. Pt was admitted for further evaluation. Hematology service consulted for the evaluation of anemia and thrombocytopenia. Labs and imaging have been reviewed. PAST MEDICAL HISTORY: COPD. FAMILY HISTORY: Noncontributory. SOCIAL HISTORY: He lives at home. Does not smoke or drink alcohol. REVIEW OF SYSTEMS: Review of systems was negative other than what was mentioned in the history of present illness that was performed through his son as currently the patient is on BiPAP. PHYSICAL EXAMINATION: VITAL SIGNS: Have been reviewed HEAD AND NECK: Show positive JVD. LUNGS: Decreased breath sounds. CARDIOVASCULAR: Shows regular S1 and S2 with no gallop. ABDOMEN: Soft. EXTREMITIES: Bilateral 2+ pitting edema and cellulitis. MEDICATIONS: Current meds have been reviewed LABORATORY AND DIAGNOSTIC DATA: white count of 8, hemoglobin 13, hematocrit of 42, and platelet count is 148. Sodium 138, potassium 5.3, BUN of 35, creatinine 1.4, glucose of 93. Lactic acid is 3.2 and 2.8. Troponin is negative. BNP is 7468. IMAGING:CXR --> Hyperinflation, compatible with COPD. No acute process ASSESSMENT AND RECOMMENDATIONS # Thrombocytopenia - potential causes multifactorial, evaluate liver and viral etiologies to begin, also could be related to underlying medications patient has received. --> Hep panel and HIV ordered --> US abd to evaluate for cirrhosis and hsm ordered --> Peripheral smear ordered to evaluate for blasts /schistocytes --> abx and other meds have been reviewed --> ok for ppx if plt >50k w/ wither heparin or lovenox --> Transfuse if Plt < 20k and fever, or if Plt < 10k without fever # Anemia of chronic disease due to underlying chronic medica lissues, multifactorial. --> Current hgb >10, no w/u required at this time --> Monitor for stability # Bilateral lower extremity edema. BNP is also 7500. --> patient on Lasix 40 mg IV b.i.d. --> lower extremity duplex pending # COPD exacerbation. Pulm is following, appreciate recs. --> currently on BiPAP. # Lower extremity cellulitis. On antibiotics. GREATLY APPRECIATE CONSULTATION. Conrado Morel MD Jun 09, 2018 14:55
--- NOTE | 2018-06-09 15:29 | NUR ---
NURSE NOTES: patient tolerated CT scan with no shortness of breath or distress. patient remains awake and alert with saturations of 94-95%, contrast infused through left AC 20G. patient remains stable with nasal cannula at 3L/min, will continue to monitor.
--- NOTE | 2018-06-09 15:36 | Diagnostic Imaging Report ---
EXAM: CT Angiography Chest With Intravenous Contrast CLINICAL HISTORY: Pulmonary embolism TECHNIQUE: Axial computed tomographic angiography images of the chest with intravenous contrast using pulmonary embolism protocol. CTDI is 77 mGy and DLP is 594 mGy-cm. One or more of the following dose reduction techniques were used: automated exposure control, adjustment of the mA and/or kV according to patient size, use of iterative reconstruction technique. 3D reconstructed images were created and reviewed. Coronal and sagittal reformatted images were created and reviewed. COMPARISON: Chest x-ray dated 06/05/18 FINDINGS: Pulmonary arteries: No evidence of pulmonary embolism. Aorta: No thoracic aortic aneurysm. Lungs: Mild dependent atelectasis in the right lung base. Hyperinflated lungs with centrilobular emphysematous changes, predominantly in the upper lung zones. The lungs otherwise appear clear. No mass. Pleural space: Small layering right pleural effusion. No pneumothorax. Heart: Unremarkable. No cardiomegaly. No significant pericardial effusion. No evidence of RV dysfunction. Bones/joints: No acute fracture. No dislocation. Soft tissues: Unremarkable. Lymph nodes: Unremarkable. No enlarged lymph nodes. IMPRESSION: 1. No evidence of pulmonary embolism. 2. Small layering right pleural effusion. 3. Dependent atelectasis in the right lung base. 4. Pulmonary hyperinflation with centrilobular emphysematous changes, predominantly in the upper lung zones.
[2018-06-09] MEDS ORDERED: NS 275ml ONE (16:23)
[2018-06-09] MEDS: Vancomycin 750mg/NS 250ml 250 ML IVPB SCH (17:53)
[2018-06-09] MEDS: Advair 250/50 Inhaler - 14 dose INH SCH (18:00)
--- NOTE | 2018-06-09 18:53 | NUR ---
NURSE NOTES: Dr. Pinedo aware of CT scan results, no verbal orders given at this time.
--- NOTE | 2018-06-09 19:35 | NUR ---
NURSE NOTES: Report received from GENNY Mcclain. Observed pt lying on bed with Bi-pap on 31/10 FiO2 25%, with no distress noted at this time. Awake and denies pain at this time. Telemonitoring: SR with no distress noted. Pt has condom catheter, intact and draining well. IV site on L 22G, intact and patent, TKO. Bed in the lowest position. Call light within reach. Will continue to monitor.
--- NOTE | 2018-06-09 19:38 | NUR ---
HAND-OFF: Report given to GENNY Wyatt. patient placed back to Bipap with settings of 15/5 with FIO2 of 25%..
--- NOTE | 2018-06-09 19:49 | NUR ---
Received Patient on 3LPM NC. Placed him back on BIPAP 15/5, BUR 16, FIO2 25%. Patient currently on full face mask. Tape is in place, no skin redness or breakdown. Patient is drowsy however does follow commands. Clear diminished breath sounds bilaterally. Vent plugged into red outlet. Alarms on and audible. Will continue to monitor throughout the night.
--- NOTE | 2018-06-09 21:43 | General Progress Note ---
Assessment/Plan Problem List: (1) Major depressive disorder ICD Codes: F32.9 - Major depressive disorder, single episode, unspecified SNOMED: [id number] Assessment/Plan Celexa 20mg qam Provided st/ro Subjective Neurologic/Psychiatric: Reports: anxiety Allergies: Coded Allergies: No Known Allergies (Unverified , 06/05/18) Subjective drowsy episodes of agitation Objective Last 24 Hour Vital Signs Date Time Temp Pulse Resp B/P (MAP) Pulse Ox O2 Delivery O2 Flow Rate FiO2 06/09/18 20:56 83 22 93 Facial 25 06/09/18 18:52 Bi-pap 25 06/09/18 18:52 Bi-pap 25 06/09/18 18:49 82 18 98 Full Face 25 06/09/18 18:49 79 22 100 Bi-pap 25 06/09/18 18:42 81 18 100 Bi-pap 25 06/09/18 16:00 88 06/09/18 16:00 97.1 90 18 125/74 (91) 100 06/09/18 16:00 3.0 06/09/18 16:00 Nasal Cannula 3.0 06/09/18 14:56 Nasal Cannula 3.0 32 06/09/18 14:56 Nasal Cannula 3.0 32 06/09/18 12:43 76 21 95 Full Face 25 06/09/18 12:00 80 06/09/18 12:00 97.7 80 15 92/58 (69) 95 06/09/18 12:00 25 06/09/18 11:12 85 18 97 Full Face 25 06/09/18 11:00 Bi-pap 06/09/18 10:43 Nasal Cannula 3.0 32 06/09/18 10:43 Nasal Cannula 3.0 32 06/09/18 10:00 88 20 116/71 (86) 96 06/09/18 09:21 88 23 96 Full Face 25 06/09/18 09:00 77 20 122/66 (84) 96 06/09/18 08:00 98.0 72 18 121/65 (83) 95 06/09/18 08:00 50 06/09/18 08:00 75 06/09/18 08:00 Bi-pap 06/09/18 07:10 73 19 100 Bi-pap 25 06/09/18 07:10 72 19 100 Full Face 25 06/09/18 07:05 75 19 100 Bi-pap 25 06/09/18 07:00 75 20 104/56 (72) 96 06/09/18 06:00 73 20 122/66 (84) 94 06/09/18 05:00 71 13 112/71 (85) 93 06/09/18 04:55 72 16 97 Full Face 25 06/09/18 04:00 25 06/09/18 04:00 97.7 80 18 105/61 (76) 95 06/09/18 04:00 75 06/09/18 04:00 Bi-pap 06/09/18 03:40 84 22 99 Bi-pap 25 06/09/18 03:30 83 19 99 Bi-pap 25 06/09/18 03:30 82 19 99 Full Face 25 06/09/18 03:00 82 20 107/59 (75) 100 06/09/18 02:00 74 18 117/71 (86) 98 06/09/18 01:20 71 16 96 Full Face 25 06/09/18 01:00 75 17 108/67 (81) 95 06/09/18 00:00 25 06/09/18 00:00 97.8 74 17 97/57 (70) 94 06/09/18 00:00 94 06/09/18 00:00 Bi-pap 06/08/18 23:20 70 21 99 Bi-pap 25 06/08/18 23:10 73 17 97 Bi-pap 25 06/08/18 23:10 71 17 97 Full Face 25 06/08/18 23:00 80 18 97/54 (68) 97 06/08/18 22:00 77 18 97/67 (77) 97 Intake and Output 06/08/18 06/09/18 19:00 07:00 Intake Total 610 ml Output Total 1380 ml 1670 ml Balance -1380 ml -1060 ml IV Total 610 ml Output Urine Total 1380 ml 1670 ml # Voids 1 Laboratory Tests 06/09/18 04:50: White Blood Count 7.8, Red Blood Count 3.67L, Hemoglobin 10.7L, Hematocrit 35.0L , Mean Corpuscular Volume 95, Mean Corpuscular Hemoglobin 29.2, Mean Corpuscular Hemoglobin Concent 30.7L, Red Cell Distribution Width 15.5H, Platelet Count 137L, Mean Platelet Volume 8.4, Neutrophils (%) (Auto) , Lymphocytes (%) (Auto) , Monocytes (%) (Auto) , Eosinophils (%) (Auto) , Basophils (%) (Auto) , Differential Total Cells Counted 100, Neutrophils % ( Manual) 88H, Lymphocytes % (Manual) 7L, Monocytes % (Manual) 2, Eosinophils % ( Manual) 2, Basophils % (Manual) 0, Myelocytes % 1H, Band Neutrophils 0, Platelet Estimate DecreasedL, Platelet Morphology Normal, Anisocytosis 1+, Sodium Level 143, Potassium Level 3.7, Chloride Level 99, Carbon Dioxide Level 45*H, Anion Gap 0L, Blood Urea Nitrogen 30H, Creatinine 1.0, Estimat Glomerular Filtration Rate , Glucose Level 177H, Calcium Level 8.4L 06/09/18 07:20: Arterial Blood pH 7.439, Arterial Blood Partial Pressure CO2 62.7*H, Arterial Blood Partial Pressure O2 88.2, Arterial Blood HCO3 41.5*H, Arterial Blood Oxygen Saturation 96.5, Arterial Blood Base Excess 14.8*H, Delon Test Positive 06/09/18 13:55: Arterial Blood pH 7.372, Arterial Blood Partial Pressure CO2 82.5*H, Arterial Blood Partial Pressure O2 115.6H, Arterial Blood HCO3 46.8*H, Arterial Blood Oxygen Saturation 98.0, Arterial Blood Base Excess 17.6*H, Delon Test Positive Height (Feet): 5 Height (Inches): 8.00 Weight (Pounds): 113 General Appearance: lethargic, confused, agitated Destiny Mares MD Jun 09, 2018 21:43
--- NOTE | 2018-06-09 22:10 | NUR ---
NURSE NOTES: Pt c/o nausea and took off bi-pap. notified and new order received for prn nausea and vomiting. Will continue to monitor.
--- NOTE | 2018-06-09 22:30 | NUR ---
NURSE NOTES: Zofran 4mg IVP given and pt is back on bi-pap. observed pt sleeping on the bed, no acute distress noted. Will continue to monitor.
[2018-06-10] VITALS: BP 92/50
[2018-06-10] MEDS: Albuterol/Ipratropium 3ml neb HHN SCH ×3 (02:46→11:21)
--- NOTE | 2018-06-10 02:50 | NUR ---
RESPIRATORY NOTE: Increase FiO2 to 35% due to desaturation from 84-85%. O2 saturation is now 97%. RN Gerald notified.
--- NOTE | 2018-06-10 02:50 | NUR ---
NURSE NOTES: noted pt desating with the bipap on. notify RT and increased FiO2 to 35%. Observed SaO2 go back to 95. Will continue to monitor.
[2018-06-10 04:00] VITALS: BP 121/71
--- NOTE | 2018-06-10 04:52 | NUR ---
RESPIRATORY NOTE: Titrated FiO2 to 35%. O2 saturation 98%. no s/s of respiratory distress noted. GENNY Duarte notified
[2018-06-10 05:07] LABS: HEMATOCRIT 36.4 % (42.0-52.0); HEMOGLOBIN 10.9 G/DL (14.2-18.0); MEAN CORPUSCULAR VOLUME 95 FL (80-99); PLATELET COUNT 133 K/UL (150-450); RED BLOOD COUNT 3.83 M/UL (4.70-6.10); WHITE BLOOD COUNT 8.3 K/UL (4.8-10.8)
[2018-06-10 05:18] LABS: BLOOD UREA NITROGEN 34 mg/dL (7-18); CALCIUM 8.7 MG/DL (8.5-10.1); CHLORIDE 101 MMOL/L (98-107); CREATININE 0.9 MG/DL (0.55-1.30); POTASSIUM 4.2 MMOL/L (3.5-5.1); SODIUM 146 MMOL/L (136-145)
[2018-06-10 05:20] LABS: CARBON DIOXIDE > 45 MMOL/L (21-32)
[2018-06-10] MEDS: Vancomycin 750mg/NS 250ml 250 ML IVPB SCH ×2 (06:01→17:33)
[2018-06-10] MEDS: Solu-MEDROL 40mg Inj IVP SCH ×2 (06:01→17:27)
--- NOTE | 2018-06-10 06:54 | NUR ---
NURSE NOTES: Notify regarding sodium 146 and CO2 45 and no new order received.
--- NOTE | 2018-06-10 07:04 | NUR ---
RESPIRATORY NOTE: Received pt. on BIPAP. BIPAP settings are: 15/5, rate of 16, PS of 10, FI02 was increased by 5%, from 25% - 30%. SP02 was 85% on 25% FI02, SP02 went up to 95% on 30% FI02. BIPAP plugged on red outlet. Will continue to monitor pt.
--- NOTE | 2018-06-10 07:30 | NUR ---
HAND-OFF: Report given to GENNY Perkins. No acute distress noted.
--- NOTE | 2018-06-10 07:33 | NUR ---
NURSE NOTES: Received report GENNY Palma patient asleep on BIPAP
--- NOTE | 2018-06-10 07:43 | General Progress Note ---
Assessment/Plan Status: stable Assessment/Plan COVERING FOR DR. CHIN ASSESSMENT AND RECOMMENDATIONS # Thrombocytopenia - potential causes multifactorial, evaluate liver and viral etiologies to begin, also could be related to underlying medications patient has received. --> Monitor and trend Plt count for improvement/stability --> Currently on Heparin --> Hep panel is negative, HIV pending --> US abd shows no cirrhosis or hsm --> Peripheral smear ordered to evaluate for blasts /schistocytes --> abx and other meds have been reviewed --> ok for ppx if plt >50k w/ wither heparin or lovenox --> Transfuse if Plt < 20k and fever, or if Plt < 10k without fever # Anemia of chronic disease due to underlying chronic medical issues, multifactorial. --> Current hgb >10, no w/u required at this time --> Monitor for stability # Bilateral lower extremity edema. BNP is also 7500. --> patient on Lasix 40 mg IV b.i.d. --> lower extremity duplex pending # COPD exacerbation. Pulm is following, appreciate recs. --> currently on BiPAP. # Lower extremity cellulitis. ID is following, appreciate recs. --> On antibiotics. Subjective Date patient seen: Jun 10, 2018 Gastrointestinal/Abdominal: Reports: nausea Hematologic/Lymphatic: Reports: anemia Allergies: Coded Allergies: No Known Allergies (Unverified , 06/05/18) All Systems: reviewed and negative except above Subjective Seen by RT for low O2 sat overnight, remains on BIPAP. VS stable. Objective Last 24 Hour Vital Signs Date Time Temp Pulse Resp B/P (MAP) Pulse Ox O2 Delivery O2 Flow Rate FiO2 06/10/18 07:16 78 18 100 Bi-pap 30 06/10/18 07:11 70 16 99 Facial 30 06/10/18 07:09 74 18 97 Bi-pap 30 06/10/18 04:51 70 16 99 Facial 25 06/10/18 04:00 25 06/10/18 04:00 Nasal Cannula 3.0 06/10/18 04:00 97.5 71 16 121/71 (88) 98 06/10/18 04:00 76 06/10/18 02:56 79 19 99 Bi-pap 35 06/10/18 02:46 77 22 97 Bi-pap 35 12/23/18 02:46 77 22 97 Facial 35 06/10/18 00:00 77 06/10/18 00:00 97.0 78 22 92/50 (64) 92 06/10/18 00:00 Nasal Cannula 3.0 06/09/18 23:36 82 22 89 Facial 25 06/09/18 22:42 80 20 99 Bi-pap 25 06/09/18 22:41 85 19 96 Facial 25 06/09/18 22:34 84 19 96 Bi-pap 25 06/09/18 20:56 83 22 93 Facial 25 06/09/18 20:00 25 06/09/18 20:00 97.7 88 20 120/88 (99) 92 06/09/18 20:00 Nasal Cannula 3.0 06/09/18 18:52 Bi-pap 25 06/09/18 18:52 Bi-pap 25 06/09/18 18:49 82 18 98 Full Face 25 06/09/18 18:49 79 22 100 Bi-pap 25 06/09/18 18:42 81 18 100 Bi-pap 25 06/09/18 16:00 88 06/09/18 16:00 97.1 90 18 125/74 (91) 100 06/09/18 16:00 3.0 06/09/18 16:00 Nasal Cannula 3.0 06/09/18 14:56 Nasal Cannula 3.0 32 06/09/18 14:56 Nasal Cannula 3.0 32 06/09/18 12:43 76 21 95 Full Face 25 06/09/18 12:00 80 06/09/18 12:00 97.7 80 15 92/58 (69) 95 06/09/18 12:00 25 06/09/18 11:12 85 18 97 Full Face 25 06/09/18 11:00 Bi-pap 06/09/18 10:43 Nasal Cannula 3.0 32 06/09/18 10:43 Nasal Cannula 3.0 32 06/09/18 10:00 88 20 116/71 (86) 96 06/09/18 09:21 88 23 96 Full Face 25 06/09/18 09:00 77 20 122/66 (84) 96 06/09/18 08:00 98.0 72 18 121/65 (83) 95 06/09/18 08:00 50 06/09/18 08:00 75 06/09/18 08:00 Bi-pap Intake and Output 06/09/18 06/10/18 18:59 06:59 Intake Total 1065 ml 120 ml Output Total 1400 ml 1150 ml Balance -335 ml -1030 ml Intake Oral 650 ml 120 ml IV Total 415 ml Output Urine Total 1400 ml 1150 ml # Bowel Movements 1 Laboratory Tests 06/09/18 13:55: Arterial Blood pH 7.372, Arterial Blood Partial Pressure CO2 82.5*H, Arterial Blood Partial Pressure O2 115.6H, Arterial Blood HCO3 46.8*H, Arterial Blood Oxygen Saturation 98.0, Arterial Blood Base Excess 17.6*H, Delon Test Positive 06/10/18 05:00: White Blood Count 8.3, Red Blood Count 3.83L, Hemoglobin 10.9L, Hematocrit 36.4L , Mean Corpuscular Volume 95, Mean Corpuscular Hemoglobin 28.6, Mean Corpuscular Hemoglobin Concent 30.1L, Red Cell Distribution Width 16.0H, Platelet Count 133L, Mean Platelet Volume 7.4, Neutrophils (%) (Auto) , Lymphocytes (%) (Auto) , Monocytes (%) (Auto) , Eosinophils (%) (Auto) , Basophils (%) (Auto) , Differential Total Cells Counted 100, Neutrophils % ( Manual) 94H, Lymphocytes % (Manual) 3L, Monocytes % (Manual) 3, Eosinophils % ( Manual) 0, Basophils % (Manual) 0, Band Neutrophils 0, Platelet Estimate DecreasedL, Platelet Morphology Normal, Anisocytosis 1+, Sodium Level 146H, Potassium Level 4.2, Chloride Level 101, Carbon Dioxide Level > 45*H, Blood Urea Nitrogen 34H, Creatinine 0.9, Estimat Glomerular Filtration Rate , Glucose Level 121H, Calcium Level 8.7, Vancomycin Level Trough 11.1 Height (Feet): 5 Height (Inches): 8.00 Weight (Pounds): 113 Objective PHYSICAL EXAMINATION: VITAL SIGNS: Have been reviewed HEAD AND NECK: Show positive JVD. LUNGS: Decreased breath sounds. CARDIOVASCULAR: Shows regular S1 and S2 with no gallop. ABDOMEN: Soft. EXTREMITIES: Bilateral 2+ pitting edema and cellulitis. Conrado Morel MD Jun 10, 2018 07:43
[2018-06-10 08:00] VITALS: BP 109/68
[2018-06-10] MEDS: Doxycycline Hyclate 100 MG in D5W 110 ML IV SCH ×2 (09:00→21:07)
--- NOTE | 2018-06-10 09:39 | General Progress Note ---
Assessment/Plan Assessment/Plan Assessment/Plan Assessment - CHF - COPD / BIPAP - Edema, LE cellulitis -Anemia Recommendations Careful po trial off mask follow labs and exam abx per ID anemia work up Subjective ROS Limited/Unobtainable: No Allergies: Coded Allergies: No Known Allergies (Unverified , 06/05/18) Subjective on BIPAP Objective Last 24 Hour Vital Signs Date Time Temp Pulse Resp B/P (MAP) Pulse Ox O2 Delivery O2 Flow Rate FiO2 06/10/18 08:43 80 17 96 Full Face 30 06/10/18 08:42 81 16 Bi-pap 30 06/10/18 07:16 78 18 100 Bi-pap 30 06/10/18 07:11 70 16 99 Facial 30 06/10/18 07:09 74 18 97 Bi-pap 30 06/10/18 04:51 70 16 99 Facial 25 06/10/18 04:00 25 06/10/18 04:00 Nasal Cannula 3.0 06/10/18 04:00 97.5 71 16 121/71 (88) 98 06/10/18 04:00 76 06/10/18 02:56 79 19 99 Bi-pap 35 06/10/18 02:46 77 22 97 Bi-pap 35 06/10/18 02:46 77 22 97 Facial 35 06/10/18 00:00 77 06/10/18 00:00 97.0 78 22 92/50 (64) 92 06/10/18 00:00 Nasal Cannula 3.0 06/09/18 23:36 82 22 89 Facial 25 06/09/18 22:42 80 20 99 Bi-pap 25 06/09/18 22:41 85 19 96 Facial 25 06/09/18 22:34 84 19 96 Bi-pap 25 06/09/18 20:56 83 22 93 Facial 25 06/09/18 20:00 25 06/09/18 20:00 97.7 88 20 120/88 (99) 92 06/09/18 20:00 Nasal Cannula 3.0 06/09/18 18:52 Bi-pap 25 06/09/18 18:52 Bi-pap 25 06/09/18 18:49 82 18 98 Full Face 25 06/09/18 18:49 79 22 100 Bi-pap 25 06/09/18 18:42 81 18 100 Bi-pap 25 06/09/18 16:00 88 12/22/18 16:00 97.1 90 18 125/74 (91) 100 06/09/18 16:00 3.0 06/09/18 16:00 Nasal Cannula 3.0 06/09/18 14:56 Nasal Cannula 3.0 32 06/09/18 14:56 Nasal Cannula 3.0 32 06/09/18 12:43 76 21 95 Full Face 25 06/09/18 12:00 80 06/09/18 12:00 97.7 80 15 92/58 (69) 95 06/09/18 12:00 25 06/09/18 11:12 85 18 97 Full Face 25 06/09/18 11:00 Bi-pap 06/09/18 10:43 Nasal Cannula 3.0 32 06/09/18 10:43 Nasal Cannula 3.0 32 06/09/18 10:00 88 20 116/71 (86) 96 Intake and Output 06/09/18 06/10/18 18:59 06:59 Intake Total 1065 ml 120 ml Output Total 1400 ml 1150 ml Balance -335 ml -1030 ml Intake Oral 650 ml 120 ml IV Total 415 ml Output Urine Total 1400 ml 1150 ml # Bowel Movements 1 Laboratory Tests 06/09/18 13:55: Arterial Blood pH 7.372, Arterial Blood Partial Pressure CO2 82.5*H, Arterial Blood Partial Pressure O2 115.6H, Arterial Blood HCO3 46.8*H, Arterial Blood Oxygen Saturation 98.0, Arterial Blood Base Excess 17.6*H, Delon Test Positive 06/10/18 04:00: Arterial Blood pH 7.362, Arterial Blood Partial Pressure CO2 89.8*H, Arterial Blood Partial Pressure O2 85.2, Arterial Blood HCO3 49.8*H, Arterial Blood Oxygen Saturation 95.2, Arterial Blood Base Excess 19.9*H, Delon Test Positive 06/10/18 05:00: White Blood Count 8.3, Red Blood Count 3.83L, Hemoglobin 10.9L, Hematocrit 36.4L , Mean Corpuscular Volume 95, Mean Corpuscular Hemoglobin 28.6, Mean Corpuscular Hemoglobin Concent 30.1L, Red Cell Distribution Width 16.0H, Platelet Count 133L, Mean Platelet Volume 7.4, Neutrophils (%) (Auto) , Lymphocytes (%) (Auto) , Monocytes (%) (Auto) , Eosinophils (%) (Auto) , Basophils (%) (Auto) , Differential Total Cells Counted 100, Neutrophils % ( Manual) 94H, Lymphocytes % (Manual) 3L, Monocytes % (Manual) 3, Eosinophils % ( Manual) 0, Basophils % (Manual) 0, Band Neutrophils 0, Platelet Estimate DecreasedL, Platelet Morphology Normal, Anisocytosis 1+, Sodium Level 146H, Potassium Level 4.2, Chloride Level 101, Carbon Dioxide Level > 45*H, Blood Urea Nitrogen 34H, Creatinine 0.9, Estimat Glomerular Filtration Rate , Glucose Level 121H, Calcium Level 8.7, Vancomycin Level Trough 11.1 Height (Feet): 5 Height (Inches): 8.00 Weight (Pounds): 113 General Appearance: moderate distress EENT: normal ENT inspection Neck: supple Cardiovascular: normal rate Respiratory/Chest: decreased breath sounds Abdomen: normal bowel sounds, non tender, soft Extremities: non-tender Jaylen Aleman MD Jun 10, 2018 09:39
[2018-06-10] MEDS: Citalopram Hydrobromide 10mg Tab ORAL SCH (10:23)
[2018-06-10] MEDS: cefTRIAXone 1 GM in D5W 55 ML IVPB SCH (10:23)
[2018-06-10] MEDS: Heparin 5000 units/ml inj SUBQ SCH ×2 (10:24→21:00)
[2018-06-10] MEDS: Advair 250/50 Inhaler - 14 dose INH SCH ×2 (10:26→21:35)
--- NOTE | 2018-06-10 10:55 | Infectious Diseases Prog Note ---
Assessment/Plan Assessment/Plan antibiotics : vancomycin iv, ceftriaxone, doxycycline A 1. leg cellulitis improving 2. respiratory failure 3. COPD exacerbation 4. increased LFT P 1. continue vancomycin iv, ceftriaxone, doxycycline 2. will follow up cultures Subjective ROS Limited/Unobtainable: Yes Allergies: Coded Allergies: No Known Allergies (Unverified , 06/05/18) Objective Vital Signs Last 24 Hour Vital Signs Date Time Temp Pulse Resp B/P (MAP) Pulse Ox O2 Delivery O2 Flow Rate FiO2 06/10/18 10:38 96 22 96 Bi-pap 30 06/10/18 10:38 96 22 96 Bi-pap 30 06/10/18 10:29 90 21 98 Bi-pap 30 06/10/18 10:27 85 22 98 Bi-pap 30 06/10/18 08:43 80 17 96 Full Face 30 06/10/18 08:42 81 16 Bi-pap 30 06/10/18 07:16 78 18 100 Bi-pap 30 06/10/18 07:11 70 16 99 Facial 30 06/10/18 07:09 74 18 97 Bi-pap 30 06/10/18 04:51 70 16 99 Facial 25 06/10/18 04:00 25 06/10/18 04:00 Nasal Cannula 3.0 06/10/18 04:00 97.5 71 16 121/71 (88) 98 06/10/18 04:00 76 06/10/18 02:56 79 19 99 Bi-pap 35 06/10/18 02:46 77 22 97 Bi-pap 35 06/10/18 02:46 77 22 97 Facial 35 06/10/18 00:00 77 06/10/18 00:00 97.0 78 22 92/50 (64) 92 06/10/18 00:00 Nasal Cannula 3.0 06/09/18 23:36 82 22 89 Facial 25 06/09/18 22:42 80 20 99 Bi-pap 25 06/09/18 22:41 85 19 96 Facial 25 06/09/18 22:34 84 19 96 Bi-pap 25 06/09/18 20:56 83 22 93 Facial 25 06/09/18 20:00 25 06/09/18 20:00 97.7 88 20 120/88 (99) 92 06/09/18 20:00 Nasal Cannula 3.0 06/09/18 18:52 Bi-pap 25 06/09/18 18:52 Bi-pap 25 06/09/18 18:49 82 18 98 Full Face 25 06/09/18 18:49 79 22 100 Bi-pap 25 06/09/18 18:42 81 18 100 Bi-pap 25 06/09/18 16:00 88 06/09/18 16:00 97.1 90 18 125/74 (91) 100 06/09/18 16:00 3.0 06/09/18 16:00 Nasal Cannula 3.0 06/09/18 14:56 Nasal Cannula 3.0 32 06/09/18 14:56 Nasal Cannula 3.0 32 06/09/18 12:43 76 21 95 Full Face 25 06/09/18 12:00 80 06/09/18 12:00 97.7 80 15 92/58 (69) 95 06/09/18 12:00 25 06/09/18 11:12 85 18 97 Full Face 25 06/09/18 11:00 Bi-pap Height (Feet): 5 Height (Inches): 8.00 Weight (Pounds): 113 HEENT: other - on bipap Respiratory/Chest: lungs clear Cardiovascular: normal rate, regular rhythm, no gallop/murmur Abdomen: soft, non tender Extremities: no edema Laboratory Tests Test 06/09/18 13:55 06/10/18 04:00 06/10/18 05:00 Arterial Blood pH 7.372 (7.350-7.450) 7.362 (7.350-7.450) Arterial Blood Partial Pressure CO2 82.5 mmHg (35.0-45.0) *H 89.8 mmHg (35.0-45.0) *H Arterial Blood Partial Pressure O2 115.6 mmHg (75.0-100.0) H 85.2 mmHg (75.0-100.0) Arterial Blood HCO3 46.8 mmol/L (22.0-26.0) *H 49.8 mmol/L (22.0-26.0) *H Arterial Blood Oxygen Saturation 98.0 % (95-100) 95.2 % (95-100) Arterial Blood Base Excess 17.6 (-2-2) *H 19.9 (-2-2) *H Delon Test Positive Positive White Blood Count 8.3 K/UL (4.8-10.8) Red Blood Count 3.83 M/UL (4.70-6.10) L Hemoglobin 10.9 G/DL (14.2-18.0) L Hematocrit 36.4 % (42.0-52.0) L Mean Corpuscular Volume 95 FL (80-99) Mean Corpuscular Hemoglobin 28.6 PG (27.0-31.0) Mean Corpuscular Hemoglobin Concent 30.1 G/DL (32.0-36.0) L Red Cell Distribution Width 16.0 % (11.6-14.8) H Platelet Count 133 K/UL (150-450) L Mean Platelet Volume 7.4 FL (6.5-10.1) Neutrophils (%) (Auto) % (45.0-75.0) Lymphocytes (%) (Auto) % (20.0-45.0) Monocytes (%) (Auto) % (1.0-10.0) Eosinophils (%) (Auto) % (0.0-3.0) Basophils (%) (Auto) % (0.0-2.0) Differential Total Cells Counted 100 Neutrophils % (Manual) 94 % (45-75) H Lymphocytes % (Manual) 3 % (20-45) L Monocytes % (Manual) 3 % (1-10) Eosinophils % (Manual) 0 % (0-3) Basophils % (Manual) 0 % (0-2) Band Neutrophils 0 % (0-8) Platelet Estimate Decreased L Platelet Morphology Normal Anisocytosis 1+ Sodium Level 146 MMOL/L (136-145) H Potassium Level 4.2 MMOL/L (3.5-5.1) Chloride Level 101 MMOL/L (98-107) Carbon Dioxide Level > 45 MMOL/L (21-32) *H Blood Urea Nitrogen 34 mg/dL (7-18) H Creatinine 0.9 MG/DL (0.55-1.30) Estimat Glomerular Filtration Rate mL/min (>60) Glucose Level 121 MG/DL (74-106) H Calcium Level 8.7 MG/DL (8.5-10.1) Vancomycin Level Trough 11.1 ug/mL (5.0-12.0) Current Medications Medications (Trade) Dose Ordered Sig/Brittani Route PRN Reason Start Time Stop Time Status Last Admin Dose Admin Albuterol/ Ipratropium (Albuterol/ Ipratropium) 3 ml Q4HRT HHN 06/09/18 11:00 06/10/18 14:59 06/10/18 07:09 Ceftriaxone Sodium 1 gm/ Dextrose 55 ml @ 110 mls/hr DAILY IVPB 06/10/18 09:00 06/12/18 14:59 06/10/18 10:23 Citalopram Hydrobromide (celeXA) 20 mg DAILY ORAL 06/10/18 09:00 07/07/18 08:59 06/10/18 10:23 Doxycycline Hyclate 100 mg/ Dextrose 110 ml @ 110 mls/hr Q12HR IV 06/09/18 21:00 06/12/18 17:59 06/09/18 21:25 Furosemide (Lasix) 40 mg EVERY 12 HOURS IV 06/09/18 21:00 07/05/18 11:59 06/10/18 10:22 Heparin Sodium (Porcine) (Heparin 5000 units/ml) 5,000 units EVERY 12 HOURS SUBQ 06/09/18 21:00 07/05/18 20:59 06/10/18 10:24 Iopamidol (Isovue-370 150ml) 150 ml NOW PRN INJ Radiology Procedure 06/09/18 13:45 06/11/18 13:45 Methylprednisolone Sodium Succinate (Solu-MEDROL) 40 mg EVERY 8 HOURS IVP 06/09/18 14:00 07/05/18 14:59 06/10/18 06:01 Ondansetron HCl (Zofran) 4 mg Q4H PRN IVP Nausea & Vomiting 06/09/18 22:15 07/09/18 22:14 06/09/18 22:37 Pantoprazole (Protonix) 40 mg DAILY ORAL 06/10/18 09:00 07/06/18 08:59 06/10/18 10:23 Salmeterol Xinafoate/ Fluticasone (Advair 250/50 Diskus) 1 puffs BID INH 06/09/18 18:00 07/09/18 17:59 06/10/18 10:26 Tiotropium [place] (Spiriva Inhaler) 1 puff DAILY INH 06/10/18 09:00 07/10/18 08:59 06/10/18 10:26 Vancomycin HCl (Vanco rx to dose) 1 ea DAILY PRN MISC Per rx protocol 06/09/18 11:00 07/09/18 10:59 Vancomycin/Sodium Chloride 250 ml @ 166.667 mls/hr Q12H IVPB 06/09/18 18:00 06/13/18 17:59 06/10/18 06:01 Irlanda Gillespie MD Jun 10, 2018 10:55
[2018-06-10 12:00] VITALS: BP 119/74
--- NOTE | 2018-06-10 13:49 | Pulmonology Progress Note ---
Assessment/Plan Problems: (1) COPD exacerbation (2) Pulmonary hypertension (3) Chronic hypercapnic respiratory failure (4) Elevated d-dimer (5) Left leg cellulitis (6) Major depressive disorder Assessment/Plan PRN and qHS BiPAP Will need nocturnal NIPPV after discharge Needs O2 post discharge RTC and PRN DUOnebs Continue Spiriva and Advair Decrease SM 40 to 40 IV BID and taper Monitor volumes and renal function, diuresis as able F/U cardiology recs Abx per ID NPO x when respiratory status stable off BiPAP, ORDER BOOKER eval when better, aspiration precautions DVT Px HEP SQ Should have outpatient PFT, PSG Subjective Allergies: Coded Allergies: No Known Allergies (Unverified , 06/05/18) Subjective CT-A neg for PE + emphysematous changes with hyperinflation and a small layering R pleural effusion AFVSS, on/off BiPAP and HFO2 7.36/89/85/49/95 + cough + SOB no FC Objective Last 24 Hour Vital Signs Date Time Temp Pulse Resp B/P (MAP) Pulse Ox O2 Delivery O2 Flow Rate FiO2 06/10/18 13:20 87 18 97 Full Face 30 06/10/18 11:46 83 17 99 Bi-pap 30 06/10/18 11:21 81 19 98 Bi-pap 30 06/10/18 11:21 81 21 98 Full Face 30 06/10/18 10:38 96 22 96 Bi-pap 30 06/10/18 10:38 96 22 96 Bi-pap 30 06/10/18 10:29 90 21 98 Bi-pap 30 06/10/18 10:27 85 22 98 Bi-pap 30 06/10/18 08:43 80 17 96 Full Face 30 06/10/18 08:42 81 16 Bi-pap 30 06/10/18 07:16 78 18 100 Bi-pap 30 06/10/18 07:11 70 16 99 Facial 30 06/10/18 07:09 74 18 97 Bi-pap 30 06/10/18 04:51 70 16 99 Facial 25 06/10/18 04:00 25 06/10/18 04:00 Nasal Cannula 3.0 06/10/18 04:00 97.5 71 16 121/71 (88) 98 06/10/18 04:00 76 06/10/18 02:56 79 19 99 Bi-pap 35 06/10/18 02:46 77 22 97 Bi-pap 35 06/10/18 02:46 77 22 97 Facial 35 06/10/18 00:00 77 06/10/18 00:00 97.0 78 22 92/50 (64) 92 06/10/18 00:00 Nasal Cannula 3.0 06/09/18 23:36 82 22 89 Facial 25 06/09/18 22:42 80 20 99 Bi-pap 25 06/09/18 22:41 85 19 96 Facial 25 06/09/18 22:34 84 19 96 Bi-pap 25 06/09/18 20:56 83 22 93 Facial 25 06/09/18 20:00 25 06/09/18 20:00 97.7 88 20 120/88 (99) 92 06/09/18 20:00 Nasal Cannula 3.0 06/09/18 18:52 Bi-pap 25 06/09/18 18:52 Bi-pap 25 06/09/18 18:49 82 18 98 Full Face 25 06/09/18 18:49 79 22 100 Bi-pap 25 06/09/18 18:42 81 18 100 Bi-pap 25 06/09/18 16:00 88 06/09/18 16:00 97.1 90 18 125/74 (91) 100 06/09/18 16:00 3.0 06/09/18 16:00 Nasal Cannula 3.0 06/09/18 14:56 Nasal Cannula 3.0 32 06/09/18 14:56 Nasal Cannula 3.0 32 Intake and Output 06/09/18 06/10/18 19:00 07:00 Intake Total 815 ml 120 ml Output Total 1300 ml 1150 ml Balance -485 ml -1030 ml Intake Oral 650 ml 120 ml IV Total 165 ml Output Urine Total 1300 ml 1150 ml # Bowel Movements 1 General Appearance: no acute distress, cachetic HEENT: normocephalic, atraumatic, anicteric, mucous membranes moist Respiratory/Chest: chest wall non-tender, rhonchi Cardiovascular: normal peripheral pulses, normal rate, regular rhythm Abdomen: normal bowel sounds, soft, non tender, no organomegaly, non distended , no scars Extremities: no cyanosis, no clubbing, no edema Laboratory Tests 06/09/18 13:55: Arterial Blood pH 7.372, Arterial Blood Partial Pressure CO2 82.5*H, Arterial Blood Partial Pressure O2 115.6H, Arterial Blood HCO3 46.8*H, Arterial Blood Oxygen Saturation 98.0, Arterial Blood Base Excess 17.6*H, Delon Test Positive 06/10/18 04:00: Arterial Blood pH 7.362, Arterial Blood Partial Pressure CO2 89.8*H, Arterial Blood Partial Pressure O2 85.2, Arterial Blood HCO3 49.8*H, Arterial Blood Oxygen Saturation 95.2, Arterial Blood Base Excess 19.9*H, Delon Test Positive 06/10/18 05:00: White Blood Count 8.3, Red Blood Count 3.83L, Hemoglobin 10.9L, Hematocrit 36.4L , Mean Corpuscular Volume 95, Mean Corpuscular Hemoglobin 28.6, Mean Corpuscular Hemoglobin Concent 30.1L, Red Cell Distribution Width 16.0H, Platelet Count 133L, Mean Platelet Volume 7.4, Neutrophils (%) (Auto) , Lymphocytes (%) (Auto) , Monocytes (%) (Auto) , Eosinophils (%) (Auto) , Basophils (%) (Auto) , Differential Total Cells Counted 100, Neutrophils % ( Manual) 94H, Lymphocytes % (Manual) 3L, Monocytes % (Manual) 3, Eosinophils % ( Manual) 0, Basophils % (Manual) 0, Band Neutrophils 0, Platelet Estimate DecreasedL, Platelet Morphology Normal, Anisocytosis 1+, Sodium Level 146H, Potassium Level 4.2, Chloride Level 101, Carbon Dioxide Level > 45*H, Blood Urea Nitrogen 34H, Creatinine 0.9, Estimat Glomerular Filtration Rate , Glucose Level 121H, Calcium Level 8.7, Vancomycin Level Trough 11.1 Current Medications Medications (Trade) Dose Ordered Sig/Brittani Route PRN Reason Start Time Stop Time Status Last Admin Dose Admin Albuterol/ Ipratropium (Albuterol/ Ipratropium) 3 ml Q4HRT HHN 06/09/18 11:00 06/10/18 14:59 06/10/18 11:21 Ceftriaxone Sodium 1 gm/ Dextrose 55 ml @ 110 mls/hr DAILY IVPB 06/10/18 09:00 06/12/18 14:59 06/10/18 10:23 Citalopram Hydrobromide (celeXA) 20 mg DAILY ORAL 06/10/18 09:00 07/07/18 08:59 06/10/18 10:23 Doxycycline Hyclate 100 mg/ Dextrose 110 ml @ 110 mls/hr Q12HR IV 06/09/18 21:00 06/12/18 17:59 06/10/18 09:00 Furosemide (Lasix) 40 mg EVERY 12 HOURS IV 06/09/18 21:00 07/05/18 11:59 06/10/18 10:22 Heparin Sodium (Porcine) (Heparin 5000 units/ml) 5,000 units EVERY 12 HOURS SUBQ 06/09/18 21:00 07/05/18 20:59 06/10/18 10:24 Iopamidol (Isovue-370 150ml) 150 ml NOW PRN INJ Radiology Procedure 06/09/18 13:45 06/11/18 13:45 Methylprednisolone Sodium Succinate (Solu-MEDROL) 40 mg EVERY 8 HOURS IVP 06/09/18 14:00 07/05/18 14:59 06/10/18 06:01 Ondansetron HCl (Zofran) 4 mg Q4H PRN IVP Nausea & Vomiting 06/09/18 22:15 07/09/18 22:14 06/09/18 22:37 Pantoprazole (Protonix) 40 mg DAILY ORAL 06/10/18 09:00 07/06/18 08:59 06/10/18 10:23 Salmeterol Xinafoate/ Fluticasone (Advair 250/50 Diskus) 1 puffs BID INH 06/09/18 18:00 07/09/18 17:59 06/10/18 10:26 Tiotropium Bailey (Spiriva Inhaler) 1 puff DAILY INH 06/10/18 09:00 07/10/18 08:59 06/10/18 10:26 Vancomycin HCl (Vanco rx to dose) 1 ea DAILY PRN MISC Per rx protocol 06/09/18 11:00 07/09/18 10:59 Vancomycin/Sodium Chloride 250 ml @ 166.667 mls/hr Q12H IVPB 06/09/18 18:00 06/13/18 17:59 06/10/18 06:01 Jason Pinedo MD Jun 10, 2018 13:49
[2018-06-10 16:00] VITALS: BP 101/67
--- NOTE | 2018-06-10 17:08 | NUR ---
NURSE NOTES: Dr. Pinedo visited,ordered BIPAP at night ,place zhu on Venturi mask 35% by respiratory therapist (RT),ABG done by RT,tolerating,O2 saturation 97 %
--- NOTE | 2018-06-10 18:30 | Cardiology Progress Note ---
Assessment/Plan Status: stable Assessment/Plan Assessment/Plan Assessment/Plan 1. Severe bilateral lower extremity edema. BNP is also 7500. Due to diastolic dysfunction. On Lasix 40 mg IV b.i.d. Lower extremity duplex no DVT. Echo EF 55% 2. COPD exacerbation. On BiPAP and Solumedrol 3. Lower extremity cellulitis,on antibiotics. Subjective Cardiovascular: Reports: no symptoms Respiratory: Reports: no symptoms Gastrointestinal/Abdominal: Reports: no symptoms Genitourinary: Reports: no symptoms Subjective COVERAGE FOR GABRIELA Patient is awake and alert to name and place, he is able to communicate verbally with no impairment noted, he is on Bipap with setting of 15/5 with FIO2 of 25% with saturations at 92% Objective Last 24 Hour Vital Signs Date Time Temp Pulse Resp B/P (MAP) Pulse Ox O2 Delivery O2 Flow Rate FiO2 06/10/18 16:53 84 06/10/18 14:11 90 20 92 06/10/18 13:20 87 18 97 Full Face 30 06/10/18 12:00 Bi-pap 06/10/18 12:00 98.0 82 16 119/74 (89) 98 06/10/18 12:00 85 06/10/18 11:46 83 17 99 Bi-pap 30 06/10/18 11:21 81 19 98 Bi-pap 30 06/10/18 11:21 81 21 98 Full Face 30 06/10/18 10:38 96 22 96 Bi-pap 30 06/10/18 10:38 96 22 96 Bi-pap 30 06/10/18 10:29 90 21 98 Bi-pap 30 06/10/18 10:27 85 22 98 Bi-pap 30 06/10/18 08:43 80 17 96 Full Face 30 06/10/18 08:42 81 16 Bi-pap 30 06/10/18 08:10 Bi-pap 06/10/18 08:00 25 06/10/18 08:00 84 06/10/18 08:00 98.2 76 18 109/68 (82) 98 06/10/18 07:16 78 18 100 Bi-pap 30 06/10/18 07:11 70 16 99 Facial 30 06/10/18 07:09 74 18 97 Bi-pap 30 06/10/18 04:51 70 16 99 Facial 25 06/10/18 04:00 25 06/10/18 04:00 Nasal Cannula 3.0 06/10/18 04:00 97.5 71 16 121/71 (88) 98 06/10/18 04:00 76 06/10/18 02:56 79 19 99 Bi-pap 35 06/10/18 02:46 77 22 97 Bi-pap 35 06/10/18 02:46 77 22 97 Facial 35 06/10/18 00:00 77 06/10/18 00:00 97.0 78 22 92/50 (64) 92 06/10/18 00:00 Nasal Cannula 3.0 06/09/18 23:36 82 22 89 Facial 25 06/09/18 22:42 80 20 99 Bi-pap 25 06/09/18 22:41 85 19 96 Facial 25 06/09/18 22:34 84 19 96 Bi-pap 25 06/09/18 20:56 83 22 93 Facial 25 06/09/18 20:00 25 06/09/18 20:00 97.7 88 20 120/88 (99) 92 06/09/18 20:00 Nasal Cannula 3.0 06/09/18 18:52 Bi-pap 25 06/09/18 18:52 Bi-pap 25 06/09/18 18:49 82 18 98 Full Face 25 06/09/18 18:49 79 22 100 Bi-pap 25 06/09/18 18:42 81 18 100 Bi-pap 25 General Appearance: no apparent distress, alert EENT: PERRL/EOMI, normal ENT inspection, TMs normal, pharynx normal Neck: non-tender, normal alignment, supple, normal inspection, no JVD Rhythm: NSR Cardiovascular: normal peripheral pulses, normal rate, regular rhythm Respiratory/Chest: chest wall non-tender, lungs clear, normal breath sounds Abdomen: normal bowel sounds, non tender, soft, no organomegaly, no mass Extremities: normal range of motion, non-tender, normal inspection Neurologic: floor covering layer II-XII grossly normal, no motor/sensory deficits Intake and Output 06/09/18 06/10/18 19:00 07:00 Intake Total 815 ml 120 ml Output Total 1300 ml 1150 ml Balance -485 ml -1030 ml Intake Oral 650 ml 120 ml IV Total 165 ml Output Urine Total 1300 ml 1150 ml # Bowel Movements 1 Laboratory Tests Test 06/10/18 04:00 06/10/18 05:00 Arterial Blood pH 7.362 (7.350-7.450) Arterial Blood Partial Pressure CO2 89.8 mmHg (35.0-45.0) *H Arterial Blood Partial Pressure O2 85.2 mmHg (75.0-100.0) Arterial Blood HCO3 49.8 mmol/L (22.0-26.0) *H Arterial Blood Oxygen Saturation 95.2 % (95-100) Arterial Blood Base Excess 19.9 (-2-2) *H Delon Test Positive White Blood Count 8.3 K/UL (4.8-10.8) Red Blood Count 3.83 M/UL (4.70-6.10) L Hemoglobin 10.9 G/DL (14.2-18.0) L Hematocrit 36.4 % (42.0-52.0) L Mean Corpuscular Volume 95 FL (80-99) Mean Corpuscular Hemoglobin 28.6 PG (27.0-31.0) Mean Corpuscular Hemoglobin Concent 30.1 G/DL (32.0-36.0) L Red Cell Distribution Width 16.0 % (11.6-14.8) H Platelet Count 133 K/UL (150-450) L Mean Platelet Volume 7.4 FL (6.5-10.1) Neutrophils (%) (Auto) % (45.0-75.0) Lymphocytes (%) (Auto) % (20.0-45.0) Monocytes (%) (Auto) % (1.0-10.0) Eosinophils (%) (Auto) % (0.0-3.0) Basophils (%) (Auto) % (0.0-2.0) Differential Total Cells Counted 100 Neutrophils % (Manual) 94 % (45-75) H Lymphocytes % (Manual) 3 % (20-45) L Monocytes % (Manual) 3 % (1-10) Eosinophils % (Manual) 0 % (0-3) Basophils % (Manual) 0 % (0-2) Band Neutrophils 0 % (0-8) Platelet Estimate Decreased L Platelet Morphology Normal Anisocytosis 1+ Sodium Level 146 MMOL/L (136-145) H Potassium Level 4.2 MMOL/L (3.5-5.1) Chloride Level 101 MMOL/L (98-107) Carbon Dioxide Level > 45 MMOL/L (21-32) *H Blood Urea Nitrogen 34 mg/dL (7-18) H Creatinine 0.9 MG/DL (0.55-1.30) Estimat Glomerular Filtration Rate mL/min (>60) Glucose Level 121 MG/DL (74-106) H Calcium Level 8.7 MG/DL (8.5-10.1) Vancomycin Level Trough 11.1 ug/mL (5.0-12.0) Johny Rodriguez MD Jun 10, 2018 18:30
--- NOTE | 2018-06-10 19:15 | NUR ---
HAND-OFF: Report given to RN Yoselin patient awake on venturi mask no distress.
--- NOTE | 2018-06-10 19:15 | NUR ---
NURSE NOTES: Report received from GENNY Perkins. Observed pt lying on bed. Awake and A/O x4. Denies pain at this time. pt is on Ventri mask with 35%, saturating at 99%. Telemonitoring: SR with no distress noted. Condom cath in t Addendum: 06/10/18 at 1943 by Yoselin Macdonald RN incomplete note. Report received from GENNY Perkins. Observed pt lying on bed. Awake and A/O x4. Denies pain at this time. pt is on Ventri mask with 35%, saturating at 99%. Telemonitoring: SR with no distress noted. Condom cath intact and draining well. IV site on R FA 22G, L FA 22G, intact and patent. Bed in the lowest position. Call light within reach. Will continue to monitor.
[2018-06-10 20:00] VITALS: BP 120/71
--- NOTE | 2018-06-10 22:43 | General Progress Note ---
Assessment/Plan Problem List: (1) Major depressive disorder ICD Codes: F32.9 - Major depressive disorder, single episode, unspecified SNOMED: 777859007 Assessment/Plan Celexa 20mg qam Provided st/ro Subjective Neurologic/Psychiatric: Reports: anxiety, depressed Allergies: Coded Allergies: No Known Allergies (Unverified , 06/05/18) Subjective episodes of agitation Objective Last 24 Hour Vital Signs Date Time Temp Pulse Resp B/P (MAP) Pulse Ox O2 Delivery O2 Flow Rate FiO2 06/10/18 21:36 81 20 98 Venturi Mask 6.0 35 06/10/18 21:34 81 19 98 Venturi Mask 6.0 35 06/10/18 20:00 98.1 82 24 120/71 (87) 97 06/10/18 20:00 Venturi Mask 06/10/18 16:53 84 06/10/18 16:00 Bi-pap 06/10/18 16:00 98.2 82 20 101/67 (78) 98 06/10/18 14:11 90 20 92 06/10/18 13:20 87 18 97 Full Face 30 06/10/18 12:00 Bi-pap 06/10/18 12:00 98.0 82 16 119/74 (89) 98 06/10/18 12:00 85 06/10/18 11:46 83 17 99 Bi-pap 30 06/10/18 11:21 81 19 98 Bi-pap 30 06/10/18 11:21 81 21 98 Full Face 30 06/10/18 10:38 96 22 96 Bi-pap 30 06/10/18 10:38 96 22 96 Bi-pap 30 06/10/18 10:29 90 21 98 Bi-pap 30 06/10/18 10:27 85 22 98 Bi-pap 30 06/10/18 08:43 80 17 96 Full Face 30 06/10/18 08:42 81 16 Bi-pap 30 06/10/18 08:10 Bi-pap 06/10/18 08:00 25 06/10/18 08:00 84 06/10/18 08:00 98.2 76 18 109/68 (82) 98 06/10/18 07:16 78 18 100 Bi-pap 30 06/10/18 07:11 70 16 99 Facial 30 06/10/18 07:09 74 18 97 Bi-pap 30 06/10/18 04:51 70 16 99 Facial 25 06/10/18 04:00 25 06/10/18 04:00 Nasal Cannula 3.0 06/10/18 04:00 97.5 71 16 121/71 (88) 98 06/10/18 04:00 76 06/10/18 02:56 79 19 99 Bi-pap 35 06/10/18 02:46 77 22 97 Bi-pap 35 06/10/18 02:46 77 22 97 Facial 35 06/10/18 00:00 77 06/10/18 00:00 97.0 78 22 92/50 (64) 92 06/10/18 00:00 Nasal Cannula 3.0 06/09/18 23:36 82 22 89 Facial 25 Intake and Output 06/09/18 06/10/18 19:00 07:00 Intake Total 815 ml 120 ml Output Total 1300 ml 1150 ml Balance -485 ml -1030 ml Intake Oral 650 ml 120 ml IV Total 165 ml Output Urine Total 1300 ml 1150 ml # Bowel Movements 1 Laboratory Tests 06/10/18 04:00: Arterial Blood pH 7.362, Arterial Blood Partial Pressure CO2 89.8*H, Arterial Blood Partial Pressure O2 85.2, Arterial Blood HCO3 49.8*H, Arterial Blood Oxygen Saturation 95.2, Arterial Blood Base Excess 19.9*H, Delon Test Positive 06/10/18 05:00: White Blood Count 8.3, Red Blood Count 3.83L, Hemoglobin 10.9L, Hematocrit 36.4L , Mean Corpuscular Volume 95, Mean Corpuscular Hemoglobin 28.6, Mean Corpuscular Hemoglobin Concent 30.1L, Red Cell Distribution Width 16.0H, Platelet Count 133L, Mean Platelet Volume 7.4, Neutrophils (%) (Auto) , Lymphocytes (%) (Auto) , Monocytes (%) (Auto) , Eosinophils (%) (Auto) , Basophils (%) (Auto) , Differential Total Cells Counted 100, Neutrophils % ( Manual) 94H, Lymphocytes % (Manual) 3L, Monocytes % (Manual) 3, Eosinophils % ( Manual) 0, Basophils % (Manual) 0, Band Neutrophils 0, Platelet Estimate DecreasedL, Platelet Morphology Normal, Anisocytosis 1+, Sodium Level 146H, Potassium Level 4.2, Chloride Level 101, Carbon Dioxide Level > 45*H, Blood Urea Nitrogen 34H, Creatinine 0.9, Estimat Glomerular Filtration Rate , Glucose Level 121H, Calcium Level 8.7, Vancomycin Level Trough 11.1 Height (Feet): 5 Height (Inches): 8.00 Weight (Pounds): 113 General Appearance: alert, agitated Destiny Mares MD Jun 10, 2018 22:43
[2018-06-11] VITALS: BP 106/69
--- NOTE | 2018-06-11 | NUR ---
NURSE NOTES: Observed pt sleeping on the bed. on bipap, saturating at 98%. No signs of acute distress noted. Will continue to monitor.
[2018-06-11 04:00] VITALS: BP 112/66
[2018-06-11 05:47] LABS: HEMATOCRIT 37.8 % (42.0-52.0); HEMOGLOBIN 11.5 G/DL (14.2-18.0); MEAN CORPUSCULAR VOLUME 96 FL (80-99); PLATELET COUNT 142 K/UL (150-450); RED BLOOD COUNT 3.93 M/UL (4.70-6.10); RED CELL DISTRIBUTION WIDTH 16.2 % (11.6-14.8); WHITE BLOOD COUNT 9.1 K/UL (4.8-10.8)
[2018-06-11] MEDS: Vancomycin 750mg/NS 250ml 250 ML IVPB SCH (06:08)
[2018-06-11 06:11] LABS: BLOOD UREA NITROGEN 31 mg/dL (7-18); CALCIUM 8.8 MG/DL (8.5-10.1); CHLORIDE 100 MMOL/L (98-107); CREATININE 0.8 MG/DL (0.55-1.30); POTASSIUM 4.8 MMOL/L (3.5-5.1); SODIUM 144 MMOL/L (136-145)
[2018-06-11 06:23] LABS: CARBON DIOXIDE > 45 MMOL/L (21-32)
--- NOTE | 2018-06-11 06:49 | NUR ---
NURSE NOTES: aware of high CO2 level. No new order received.
--- NOTE | 2018-06-11 07:08 | General Progress Note ---
Assessment/Plan Assessment/Plan Assessment/Plan Assessment - CHF - COPD / BIPAP - Edema, LE cellulitis -Anemia Recommendations Careful po trial off mask follow labs and exam abx per ID anemia work up Subjective ROS Limited/Unobtainable: Yes Allergies: Coded Allergies: No Known Allergies (Unverified , 06/05/18) Subjective on BIPAP Objective Last 24 Hour Vital Signs Date Time Temp Pulse Resp B/P (MAP) Pulse Ox O2 Delivery O2 Flow Rate FiO2 06/11/18 05:07 74 18 95 Full Face 30 06/11/18 04:00 65 06/11/18 04:00 Venturi Mask 06/11/18 04:00 98.1 67 16 112/66 (81) 95 06/11/18 02:46 67 17 100 Full Face 30 06/11/18 01:30 70 19 99 Full Face 30 06/11/18 00:00 97.7 70 16 106/69 (81) 98 06/11/18 00:00 Venturi Mask 06/11/18 00:00 71 06/10/18 23:00 73 17 98 Full Face 30 06/10/18 22:00 30 06/10/18 21:36 81 20 98 Venturi Mask 6.0 35 06/10/18 21:34 81 19 98 Venturi Mask 6.0 35 06/10/18 20:00 80 06/10/18 20:00 98.1 82 24 120/71 (87) 97 06/10/18 20:00 Venturi Mask 06/10/18 16:53 84 06/10/18 16:00 Bi-pap 06/10/18 16:00 98.2 82 20 101/67 (78) 98 06/10/18 14:11 90 20 92 06/10/18 13:20 87 18 97 Full Face 30 06/10/18 12:00 Bi-pap 06/10/18 12:00 98.0 82 16 119/74 (89) 98 06/10/18 12:00 85 06/10/18 11:46 83 17 99 Bi-pap 30 06/10/18 11:21 81 19 98 Bi-pap 30 06/10/18 11:21 81 21 98 Full Face 30 06/10/18 10:38 96 22 96 Bi-pap 30 06/10/18 10:38 96 22 96 Bi-pap 30 06/10/18 10:29 90 21 98 Bi-pap 30 06/10/18 10:27 85 22 98 Bi-pap 30 06/10/18 08:43 80 17 96 Full Face 30 06/10/18 08:42 81 16 Bi-pap 30 06/10/18 08:10 Bi-pap 06/10/18 08:00 25 06/10/18 08:00 84 06/10/18 08:00 98.2 76 18 109/68 (82) 98 06/10/18 07:16 78 18 100 Bi-pap 30 06/10/18 07:11 70 16 99 Facial 30 06/10/18 07:09 74 18 97 Bi-pap 30 Intake and Output 06/10/18 06/11/18 19:00 07:00 Intake Total 110 ml Output Total 150 ml Balance -40 ml IV Total 110 ml Output Urine Total 150 ml Laboratory Tests 06/11/18 02:50: White Blood Count 9.1, Red Blood Count 3.93L, Hemoglobin 11.5L, Hematocrit 37.8L , Mean Corpuscular Volume 96, Mean Corpuscular Hemoglobin 29.3, Mean Corpuscular Hemoglobin Concent 30.4L, Red Cell Distribution Width 16.2H, Platelet Count 142L, Mean Platelet Volume 8.8, Neutrophils (%) (Auto) , Lymphocytes (%) (Auto) , Monocytes (%) (Auto) , Eosinophils (%) (Auto) , Basophils (%) (Auto) , Sodium Level 144, Potassium Level 4.8, Chloride Level 100 , Carbon Dioxide Level > 45*H, Blood Urea Nitrogen 31H, Creatinine 0.8, Estimat Glomerular Filtration Rate , Glucose Level 98, Calcium Level 8.8 Height (Feet): 5 Height (Inches): 8.00 Weight (Pounds): 113 General Appearance: alert EENT: normal ENT inspection Neck: supple Cardiovascular: normal rate Respiratory/Chest: decreased breath sounds Abdomen: normal bowel sounds, non tender, soft Extremities: non-tender Jaylen Aleman MD Jun 11, 2018 07:07
--- NOTE | 2018-06-11 07:29 | NUR ---
HAND-OFF: Report given to GENNY Sutherland. Observed him eating breakfast. No acute distress noted at this time.
--- NOTE | 2018-06-11 07:56 | NUR ---
NURSE NOTES: Received report from Gerald Carbone RN. Pt in bed on BIPAP. No distress noted. Introductions made. Pt denies pain. Bed in lowest position with side rails up x2 and call light in reach. Will continue to monitor. production supervisor off shift RN endorsed pt needing BIPAP constantly due to new ABGs CO2 levels. Will f/u with MD Pinedo for new possible O2 therapy order.
[2018-06-11 08:00] VITALS: BP 112/64
[2018-06-11] MEDS: Advair 250/50 Inhaler - 14 dose INH SCH ×2 (09:05→20:23)
[2018-06-11] MEDS: cefTRIAXone 1 GM in D5W 55 ML IVPB SCH (09:21)
[2018-06-11] MEDS: Citalopram Hydrobromide 10mg Tab ORAL SCH (09:22)
[2018-06-11] MEDS: Solu-MEDROL 40mg Inj IVP SCH ×2 (09:22→18:24)
[2018-06-11] MEDS: Heparin 5000 units/ml inj SUBQ SCH ×2 (09:23→20:42)
--- NOTE | 2018-06-11 09:50 | NUR ---
RD ASSESSMENT & RECOMMENDATIONS SEE CARE ACTIVITY FOR COMPLETE ASSESSMENT DAILY ESTIMATED NEEDS: Needs based on Pulmonary, cachexia/ 60kg 30-35 kcals/kg 5795-0949 total kcals 1-1.5 g protein/kg 60-90 g total protein 25-30 mL/kg 9226-5211 total fluid mLs NUTRITION DIAGNOSIS: * Altered nutrition related lab values R/T respiratory status as evidenced by critically elev PCO2, CO2, and HCO3, pt on BIPAP at this time, diet advanced to finely chopped. (UPDATED) CURRENT DIET: Soft finely chopped PO DIET RECOMMENDATIONS: Initiate diet per MD -> LOW NA/ texture as tolerated ADDITIONAL RECOMMENDATIONS: * CALIBRATED bedscale wt for accurate CBW -> Conflicting EMR wt vs bedscale wt * MVI x 1 and Diego 1pkt BID for skin integrity * Monitor NPO status- on BIPAP at this time-> diet advanced * Monitor lytes daily, replete as needed- on lasix * Add ENSURE 1 bottle daily + snacks BID * SSI while on solumedrol
--- NOTE | 2018-06-11 09:59 | General Progress Note ---
Assessment/Plan Assessment/Plan COVERING FOR DR. CHIN ASSESSMENT AND RECOMMENDATIONS # Thrombocytopenia - potential causes multifactorial, evaluate liver and viral etiologies to begin, also could be related to underlying medications patient has received. --> Monitor and trend Plt count for improvement/stability --> Currently on Heparin --> Hep panel is negative, HIV neg --> US abd shows slightly increased renal echogenicity, consistent with medical renal disease. Negative for hydronephrosis --> abx and other meds have been reviewed # Anemia of chronic disease due to underlying chronic medical issues, multifactorial. --> Current hgb >10, no w/u required at this time --> Monitor for stability # Bilateral lower extremity edema. BNP is also 7500. --> on Lasix 40 mg IV b.i.d. as per pulm --> duplex lower ext negative # COPD exacerbation. Pulm is following, appreciate recs. --> currently on BiPAP prn, on steriods # Lower extremity cellulitis. ID is following, appreciate recs. --> On antibiotics. Subjective Constitutional: Denies: no symptoms, chills, diaphoresis, fever, malaise, weakness, other HEENT: Denies: no symptoms, eye pain, blurred vision, tearing, double vision, ear pain, ear discharge, nose pain, nose congestion, throat pain, throat swelling, mouth pain, mouth swelling, other Cardiovascular: Denies: no symptoms, chest pain, edema, irregular heart rate, lightheadedness, palpitations, syncope, other Respiratory: Denies: no symptoms, cough, orthopnea, shortness of breath, SOB with excertion, SOB at rest, sputum, stridor, wheezing, other Gastrointestinal/Abdominal: Denies: no symptoms, abdomen distended, abdominal pain, black stools, tarry stools, blood in stool, constipated, diarrhea, difficulty swallowing, nausea, poor appetite, poor fluid intake, rectal bleeding , vomiting, other Genitourinary: Denies: no symptoms, burning, discharge, frequency, flank pain, hematuria, incontinence, pain, urgency, other Neurologic/Psychiatric: Denies: no symptoms, anxiety, depressed, emotional problems, headache, numbness, paresthesia, pre-existing deficit, seizure, tingling, tremors, weakness, other Endocrine: Denies: no symptoms, excessive sweating, flushing, intolerance to cold, intolerance to heat, increased hunger, increased thirst, increased urine, unexplained weight gain, unexplained weight loss, other Hematologic/Lymphatic: Denies: no symptoms, anemia, easy bleeding, easy bruising, other Allergies: Coded Allergies: No Known Allergies (Unverified , 06/05/18) Subjective Seen by RT for low O2 sat overnight, remains on BIPAP. VS remain stable. Objective Last 24 Hour Vital Signs Date Time Temp Pulse Resp B/P (MAP) Pulse Ox O2 Delivery O2 Flow Rate FiO2 06/11/18 09:07 76 18 98 Venturi Mask 6.0 35 06/11/18 09:04 76 18 98 Venturi Mask 6.0 35 06/11/18 08:00 Simple Mask 6.0 06/11/18 05:07 74 18 95 Full Face 30 06/11/18 04:00 65 06/11/18 04:00 Venturi Mask 06/11/18 04:00 98.1 67 16 112/66 (81) 95 06/11/18 02:46 67 17 100 Full Face 30 06/11/18 01:30 70 19 99 Full Face 30 06/11/18 00:00 97.7 70 16 106/69 (81) 98 06/11/18 00:00 Venturi Mask 06/11/18 00:00 71 06/10/18 23:00 73 17 98 Full Face 30 06/10/18 22:00 30 06/10/18 21:36 81 20 98 Venturi Mask 6.0 35 06/10/18 21:34 81 19 98 Venturi Mask 6.0 35 06/10/18 20:00 80 06/10/18 20:00 98.1 82 24 120/71 (87) 97 06/10/18 20:00 Venturi Mask 06/10/18 16:53 84 06/10/18 16:00 Bi-pap 06/10/18 16:00 98.2 82 20 101/67 (78) 98 06/10/18 14:11 90 20 92 06/10/18 13:20 87 18 97 Full Face 30 06/10/18 12:00 Bi-pap 06/10/18 12:00 98.0 82 16 119/74 (89) 98 06/10/18 12:00 85 06/10/18 11:46 83 17 99 Bi-pap 30 06/10/18 11:21 81 19 98 Bi-pap 30 06/10/18 11:21 81 21 98 Full Face 30 06/10/18 10:38 96 22 96 Bi-pap 30 06/10/18 10:38 96 22 96 Bi-pap 30 06/10/18 10:29 90 21 98 Bi-pap 30 06/10/18 10:27 85 22 98 Bi-pap 30 Intake and Output 06/10/18 06/11/18 19:00 07:00 Intake Total 110 ml Output Total 150 ml Balance -40 ml IV Total 110 ml Output Urine Total 150 ml Laboratory Tests 06/11/18 02:50: White Blood Count 9.1, Red Blood Count 3.93L, Hemoglobin 11.5L, Hematocrit 37.8L , Mean Corpuscular Volume 96, Mean Corpuscular Hemoglobin 29.3, Mean Corpuscular Hemoglobin Concent 30.4L, Red Cell Distribution Width 16.2H, Platelet Count 142L, Mean Platelet Volume 8.8, Neutrophils (%) (Auto) , Lymphocytes (%) (Auto) , Monocytes (%) (Auto) , Eosinophils (%) (Auto) , Basophils (%) (Auto) , Sodium Level 144, Potassium Level 4.8, Chloride Level 100 , Carbon Dioxide Level > 45*H, Blood Urea Nitrogen 31H, Creatinine 0.8, Estimat Glomerular Filtration Rate , Glucose Level 98, Calcium Level 8.8 Height (Feet): 5 Height (Inches): 8.00 Weight (Pounds): 113 Objective PHYSICAL EXAMINATION: VITAL SIGNS: Have been reviewed HEAD AND NECK: Show positive JVD. LUNGS: Decreased breath sounds. sob is improved CARDIOVASCULAR: Shows regular S1 and S2 with no gallop. ABDOMEN: Soft. EXTREMITIES: Bilateral 2+ pitting edema and cellulitis. Conrado Morel MD Jun 11, 2018 09:59
[2018-06-11] MEDS: Doxycycline Hyclate 100 MG in D5W 110 ML IV SCH (10:14)
[2018-06-11] MEDS ORDERED: NS 275ml ONE (10:41)
[2018-06-11] MEDS ORDERED: Tubing IV Secondary IV ONE (10:41)
--- NOTE | 2018-06-11 11:12 | NUR ---
ST NOTE: BEDSIDE SWALLOW EVAL RECEIVED BEDSIDE SWALLOW EVAL ORDER CHART REVIEWED PRIOR THE EVALUATION PT IS A 72-YEAR-OLD MALE WHO WAS ADMITTED DUE TO COPD. DYSPHAGIA RISK FACTORS: H/O SMOKER (QUIT 6 MONTHS AGO), EMPHYSEMA, COPD, CHF, HIGH FLOW OXYGEN USE, BIPAP USE PER CXR: Hyperinflation, compatible with COPD. No acute process PLOF: PT RESIDES AT HOME WITH SON. NO POLST WAS NOTED IN THE CHART. NO POLST WAS REGARDING TUBE FEEDING IF NEEDED. PT IS FULL CODE. CURRENT STATUS: PT SEEN AT BEDSIDE IN AM. ALERT, COOPERATIVE, VERBAL, FOLLOWS DIRECTIONS. PT WITH VENTURI MASK(6-8L), FIO2:35%. ORIENTED X 3. O2 SAT: 96% GIVEN PO TRIALS: THIN(CUP-SELF), PUREE(TSP) AND CRACKER. INITIAL IMPRESSION: MISSING SOME TEETH, GOOD MASTICATION TIME, GROSSLY FUNCTION WITH THIN, PUREE AND CRACKER. NO OVERT S/S OF ASPIRATION. HOWEVER, PT DESATURATED TO LOW 90s WITHOUT THE MASK. PT HAS RISK FOR ASPIRATION DUE TO PT CURRENT RESP ISSUE. RECOMMENDATIONS: 1. [facility] WITH THIN LIQUID DIET 2. STRICT ASPIRATION PRECAUTIONS WITH DIRECT SUPERVISION 3. ADVANCED DIET TOLERATED. 4. VIDEOSWALLOW STUDY IF NEEDED OP. 5. SKILLED ST SERVICE TO FOLLOW UP X 2 TO 3 TIMES. D/W PT AND RNJAEL POSTED ASPIRATION PRECAUTIONS SIGN.
[2018-06-11 12:00] VITALS: BP 103/65
--- NOTE | 2018-06-11 15:37 | Cardiology Progress Note ---
Assessment/Plan Status: stable Assessment/Plan Assessment/Plan Assessment/Plan 1. Severe bilateral lower extremity edema. BNP is also 7500. Due to diastolic dysfunction. On Lasix 40 mg IV b.i.d. Lower extremity duplex no DVT. Echo EF 55% 2. COPD exacerbation. On BiPAP and Solumedrol 3. Lower extremity cellulitis,on antibiotics. Subjective Cardiovascular: Reports: no symptoms Respiratory: Reports: no symptoms Gastrointestinal/Abdominal: Reports: no symptoms Genitourinary: Reports: no symptoms Subjective COVERAGE FOR TOLUIE Awake and A/O x4. Denies pain at this time. pt is on Ventri mask with 35%, saturating at 99%. Telemonitoring: SR with no distress noted, CO2 was rising earlier. Objective Last 24 Hour Vital Signs Date Time Temp Pulse Resp B/P (MAP) Pulse Ox O2 Delivery O2 Flow Rate FiO2 06/11/18 12:00 Simple Mask 6.0 06/11/18 12:00 74 06/11/18 12:00 98.5 74 18 103/65 (78) 97 06/11/18 10:31 81 18 94 Venturi Mask 35 06/11/18 10:25 87 18 94 Venturi Mask 8.0 35 06/11/18 09:07 76 18 98 Venturi Mask 6.0 35 06/11/18 09:04 76 18 98 Venturi Mask 6.0 35 06/11/18 08:00 74 06/11/18 08:00 98.3 75 20 112/64 (80) 95 06/11/18 08:00 Simple Mask 6.0 06/11/18 05:07 74 18 95 Full Face 30 06/11/18 04:00 65 06/11/18 04:00 Venturi Mask 06/11/18 04:00 98.1 67 16 112/66 (81) 95 06/11/18 02:46 67 17 100 Full Face 30 06/11/18 01:30 70 19 99 Full Face 30 06/11/18 00:00 97.7 70 16 106/69 (81) 98 06/11/18 00:00 Venturi Mask 06/11/18 00:00 71 06/10/18 23:00 73 17 98 Full Face 30 06/10/18 22:00 30 06/10/18 21:36 81 20 98 Venturi Mask 6.0 35 06/10/18 21:34 81 19 98 Venturi Mask 6.0 35 06/10/18 20:00 80 06/10/18 20:00 98.1 82 24 120/71 (87) 97 06/10/18 20:00 Venturi Mask 06/10/18 16:53 84 06/10/18 16:00 Bi-pap 06/10/18 16:00 98.2 82 20 101/67 (78) 98 General Appearance: alert, mild distress EENT: PERRL/EOMI, normal ENT inspection, TMs normal, pharynx normal Neck: non-tender, normal alignment, supple, normal inspection, no JVD Rhythm: NSR Cardiovascular: normal peripheral pulses, normal rate Respiratory/Chest: chest wall non-tender, lungs clear, decreased breath sounds , accessory muscle use, crackles/rales Abdomen: normal bowel sounds, non tender, no organomegaly Extremities: normal range of motion, non-tender, normal inspection 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: 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 normal, no motor/sensory deficits Intake and Output 06/10/18 06/11/18 18:59 06:59 Intake Total 110 ml Output Total 150 ml Balance -40 ml IV Total 110 ml Output Urine Total 150 ml Laboratory Tests Test 06/11/18 02:50 06/11/18 15:10 White Blood Count 9.1 K/UL (4.8-10.8) Red Blood Count 3.93 M/UL (4.70-6.10) L Hemoglobin 11.5 G/DL (14.2-18.0) L Hematocrit 37.8 % (42.0-52.0) L Mean Corpuscular Volume 96 FL (80-99) Mean Corpuscular Hemoglobin 29.3 PG (27.0-31.0) Mean Corpuscular Hemoglobin Concent 30.4 G/DL (32.0-36.0) L Red Cell Distribution Width 16.2 % (11.6-14.8) H Platelet Count 142 K/UL (150-450) L Mean Platelet Volume 8.8 FL (6.5-10.1) Neutrophils (%) (Auto) % (45.0-75.0) Lymphocytes (%) (Auto) % (20.0-45.0) Monocytes (%) (Auto) % (1.0-10.0) Eosinophils (%) (Auto) % (0.0-3.0) Basophils (%) (Auto) % (0.0-2.0) Sodium Level 144 MMOL/L (136-145) Potassium Level 4.8 MMOL/L (3.5-5.1) Chloride Level 100 MMOL/L (98-107) Carbon Dioxide Level > 45 MMOL/L (21-32) *H Blood Urea Nitrogen 31 mg/dL (7-18) H Creatinine 0.8 MG/DL (0.55-1.30) Estimat Glomerular Filtration Rate mL/min (>60) Glucose Level 98 MG/DL (74-106) Calcium Level 8.8 MG/DL (8.5-10.1) Arterial Blood pH 7.420 (7.350-7.450) Arterial Blood Partial Pressure CO2 85.3 mmHg (35.0-45.0) *H Arterial Blood Partial Pressure O2 106.0 mmHg (75.0-100.0) H Arterial Blood HCO3 54.1 mmol/L (22.0-26.0) *H Arterial Blood Oxygen Saturation 97.5 % (95-100) Arterial Blood Base Excess 24.5 (-2-2) *H Delon Test Positive Johny Rodriguez MD Jun 11, 2018 15:37
--- NOTE | 2018-06-11 15:57 | Infectious Diseases Prog Note ---
Assessment/Plan Assessment/Plan antibiotics : vancomycin iv, ceftriaxone, doxycycline A 1. leg cellulitis improving s/p rx 2. respiratory failure 3. COPD exacerbation 4. increased LFT P 1. d/c vancomycin iv, ceftriaxone, doxycycline 2. observe off antibiotics Subjective Constitutional: Denies: fever, chills Respiratory: Reports: shortness of breath; Denies: dry cough Gastrointestinal/Abdominal: Denies: nausea, vomiting, diarrhea Musculoskeletal: Reports: pain Allergies: Coded Allergies: No Known Allergies (Unverified , 06/05/18) Objective Vital Signs Last 24 Hour Vital Signs Date Time Temp Pulse Resp B/P (MAP) Pulse Ox O2 Delivery O2 Flow Rate FiO2 06/11/18 12:00 Simple Mask 6.0 06/11/18 12:00 74 06/11/18 12:00 98.5 74 18 103/65 (78) 97 06/11/18 10:31 81 18 94 Venturi Mask 35 06/11/18 10:25 87 18 94 Venturi Mask 8.0 35 06/11/18 09:07 76 18 98 Venturi Mask 6.0 35 06/11/18 09:04 76 18 98 Venturi Mask 6.0 35 06/11/18 08:00 74 06/11/18 08:00 98.3 75 20 112/64 (80) 95 06/11/18 08:00 Simple Mask 6.0 06/11/18 05:07 74 18 95 Full Face 30 06/11/18 04:00 65 06/11/18 04:00 Venturi Mask 06/11/18 04:00 98.1 67 16 112/66 (81) 95 06/11/18 02:46 67 17 100 Full Face 30 06/11/18 01:30 70 19 99 Full Face 30 06/11/18 00:00 97.7 70 16 106/69 (81) 98 06/11/18 00:00 Venturi Mask 06/11/18 00:00 71 06/10/18 23:00 73 17 98 Full Face 30 06/10/18 22:00 30 06/10/18 21:36 81 20 98 Venturi Mask 6.0 35 06/10/18 21:34 81 19 98 Venturi Mask 6.0 35 06/10/18 20:00 80 06/10/18 20:00 98.1 82 24 120/71 (87) 97 06/10/18 20:00 Venturi Mask 06/10/18 16:53 84 06/10/18 16:00 Bi-pap 06/10/18 16:00 98.2 82 20 101/67 (78) 98 Height (Feet): 5 Height (Inches): 8.00 Weight (Pounds): 113 Respiratory/Chest: lungs clear Cardiovascular: normal rate, regular rhythm, no gallop/murmur Abdomen: soft, non tender Extremities: no edema, other - leg ulcers clean Laboratory Tests Test 06/11/18 02:50 06/11/18 15:10 White Blood Count 9.1 K/UL (4.8-10.8) Red Blood Count 3.93 M/UL (4.70-6.10) L Hemoglobin 11.5 G/DL (14.2-18.0) L Hematocrit 37.8 % (42.0-52.0) L Mean Corpuscular Volume 96 FL (80-99) Mean Corpuscular Hemoglobin 29.3 PG (27.0-31.0) Mean Corpuscular Hemoglobin Concent 30.4 G/DL (32.0-36.0) L Red Cell Distribution Width 16.2 % (11.6-14.8) H Platelet Count 142 K/UL (150-450) L Mean Platelet Volume 8.8 FL (6.5-10.1) Neutrophils (%) (Auto) % (45.0-75.0) Lymphocytes (%) (Auto) % (20.0-45.0) Monocytes (%) (Auto) % (1.0-10.0) Eosinophils (%) (Auto) % (0.0-3.0) Basophils (%) (Auto) % (0.0-2.0) Sodium Level 144 MMOL/L (136-145) Potassium Level 4.8 MMOL/L (3.5-5.1) Chloride Level 100 MMOL/L (98-107) Carbon Dioxide Level > 45 MMOL/L (21-32) *H Blood Urea Nitrogen 31 mg/dL (7-18) H Creatinine 0.8 MG/DL (0.55-1.30) Estimat Glomerular Filtration Rate mL/min (>60) Glucose Level 98 MG/DL (74-106) Calcium Level 8.8 MG/DL (8.5-10.1) Arterial Blood pH 7.420 (7.350-7.450) Arterial Blood Partial Pressure CO2 85.3 mmHg (35.0-45.0) *H Arterial Blood Partial Pressure O2 106.0 mmHg (75.0-100.0) H Arterial Blood HCO3 54.1 mmol/L (22.0-26.0) *H Arterial Blood Oxygen Saturation 97.5 % (95-100) Arterial Blood Base Excess 24.5 (-2-2) *H Delon Test Positive Current Medications Medications (Trade) Dose Ordered Sig/Brittani Route PRN Reason Start Time Stop Time Status Last Admin Dose Admin Ceftriaxone Sodium 1 gm/ Dextrose 55 ml @ 110 mls/hr DAILY IVPB 06/10/18 09:00 06/16/18 08:59 06/11/18 09:21 Citalopram Hydrobromide (celeXA) 20 mg DAILY ORAL 06/10/18 09:00 07/07/18 08:59 06/11/18 09:22 Doxycycline Hyclate 100 mg/ Dextrose 110 ml @ 110 mls/hr Q12HR IV 06/09/18 21:00 06/16/18 20:59 06/11/18 10:14 Furosemide (Lasix) 40 mg EVERY 12 HOURS IV 06/09/18 21:00 07/05/18 11:59 06/11/18 09:22 Heparin Sodium (Porcine) (Heparin 5000 units/ml) 5,000 units EVERY 12 HOURS SUBQ 06/09/18 21:00 07/05/18 20:59 06/11/18 09:23 Methylprednisolone Sodium Succinate (Solu-MEDROL) 40 mg BID IVP 06/10/18 18:00 07/05/18 14:59 06/11/18 09:22 Ondansetron HCl (Zofran) 4 mg Q4H PRN IVP Nausea & Vomiting 06/09/18 22:15 07/09/18 22:14 06/09/18 22:37 Pantoprazole (Protonix) 40 mg DAILY ORAL 06/10/18 09:00 07/06/18 08:59 06/11/18 09:22 Salmeterol Xinafoate/ Fluticasone (Advair 250/50 Diskus) 1 puffs BID INH 06/09/18 18:00 07/09/18 17:59 06/11/18 09:05 Tiotropium [place] (Spiriva Inhaler) 1 puff DAILY INH 06/10/18 09:00 07/10/18 08:59 06/11/18 10:31 Vancomycin HCl (Vanco rx to dose) 1 ea DAILY PRN MISC Per rx protocol 06/09/18 11:00 07/09/18 10:59 Vancomycin/Sodium Chloride 250 ml @ 166.667 mls/hr Q12H IVPB 06/09/18 18:00 06/16/18 17:59 06/11/18 06:08 Irlanda Gillespie MD Jun 11, 2018 15:57
[2018-06-11 16:00] VITALS: BP 122/70
--- NOTE | 2018-06-11 16:27 | Pulmonology Progress Note ---
Assessment/Plan Problems: (1) COPD exacerbation (2) Pulmonary hypertension (3) Chronic hypercapnic respiratory failure (4) Elevated d-dimer (5) Left leg cellulitis (6) Major depressive disorder Assessment/Plan PRN and qHS BiPAP - ENCOURAGE NOCTURNAL COMPLIANCE Will need nocturnal NIPPV after discharge Needs O2 post discharge RTC and PRN DUOnebs Continue Spiriva and Advair Decrease SM 30 to 40 IV BID and taper Monitor volumes and renal function, AVOID OVERDIURESIS F/U cardiology recs Diet per [employer]OR OF [employer]PERATIONS with STRICT aspiration precautions (only when stable off BiPAP) DVT Px HEP SQ Should have outpatient PFT, PSG Subjective Allergies: Coded Allergies: No Known Allergies (Unverified , 06/05/18) Subjective DID NOT USE BiPAP OVERNIGHT AFVSS, on HF Feels better HCOe > 45 + cough + SOB no FC Objective Last 24 Hour Vital Signs Date Time Temp Pulse Resp B/P (MAP) Pulse Ox O2 Delivery O2 Flow Rate FiO2 06/11/18 12:00 Simple Mask 6.0 06/11/18 12:00 74 06/11/18 12:00 98.5 74 18 103/65 (78) 97 06/11/18 10:31 81 18 94 Venturi Mask 35 06/11/18 10:25 87 18 94 Venturi Mask 8.0 35 06/11/18 09:07 76 18 98 Venturi Mask 6.0 35 06/11/18 09:04 76 18 98 Venturi Mask 6.0 35 06/11/18 08:00 74 06/11/18 08:00 98.3 75 20 112/64 (80) 95 06/11/18 08:00 Simple Mask 6.0 06/11/18 05:07 74 18 95 Full Face 30 06/11/18 04:00 65 06/11/18 04:00 Venturi Mask 06/11/18 04:00 98.1 67 16 112/66 (81) 95 06/11/18 02:46 67 17 100 Full Face 30 06/11/18 01:30 70 19 99 Full Face 30 06/11/18 00:00 97.7 70 16 106/69 (81) 98 06/11/18 00:00 Venturi Mask 06/11/18 00:00 71 06/10/18 23:00 73 17 98 Full Face 30 06/10/18 22:00 30 06/10/18 21:36 81 20 98 Venturi Mask 6.0 35 06/10/18 21:34 81 19 98 Venturi Mask 6.0 35 06/10/18 20:00 80 06/10/18 20:00 98.1 82 24 120/71 (87) 97 06/10/18 20:00 Venturi Mask 06/10/18 16:53 84 Intake and Output 06/10/18 06/11/18 18:59 06:59 Intake Total 110 ml Output Total 150 ml Balance -40 ml IV Total 110 ml Output Urine Total 150 ml General Appearance: no acute distress, cachetic HEENT: normocephalic, atraumatic Respiratory/Chest: chest wall non-tender, lungs clear - but distant, no respiratory distress Cardiovascular: normal peripheral pulses, normal rate, regular rhythm Abdomen: normal bowel sounds, soft, non tender, no organomegaly, non distended Extremities: no cyanosis, no clubbing, no edema Laboratory Tests 06/11/18 02:50: White Blood Count 9.1, Red Blood Count 3.93L, Hemoglobin 11.5L, Hematocrit 37.8L , Mean Corpuscular Volume 96, Mean Corpuscular Hemoglobin 29.3, Mean Corpuscular Hemoglobin Concent 30.4L, Red Cell Distribution Width 16.2H, Platelet Count 142L, Mean Platelet Volume 8.8, Neutrophils (%) (Auto) , Lymphocytes (%) (Auto) , Monocytes (%) (Auto) , Eosinophils (%) (Auto) , Basophils (%) (Auto) , Sodium Level 144, Potassium Level 4.8, Chloride Level 100 , Carbon Dioxide Level > 45*H, Blood Urea Nitrogen 31H, Creatinine 0.8, Estimat Glomerular Filtration Rate , Glucose Level 98, Calcium Level 8.8 06/11/18 15:10: Arterial Blood pH 7.420, Arterial Blood Partial Pressure CO2 85.3*H, Arterial Blood Partial Pressure O2 106.0H, Arterial Blood HCO3 54.1*H, Arterial Blood Oxygen Saturation 97.5, Arterial Blood Base Excess 24.5*H, Delon Test Positive Current Medications Medications (Trade) Dose Ordered Sig/Brittani Route PRN Reason Start Time Stop Time Status Last Admin Dose Admin Citalopram Hydrobromide (celeXA) 20 mg DAILY ORAL 06/10/18 09:00 07/07/18 08:59 06/11/18 09:22 Furosemide (Lasix) 40 mg EVERY 12 HOURS IV 06/09/18 21:00 07/05/18 11:59 06/11/18 09:22 Heparin Sodium (Porcine) (Heparin 5000 units/ml) 5,000 units EVERY 12 HOURS SUBQ 06/09/18 21:00 07/05/18 20:59 06/11/18 09:23 Methylprednisolone Sodium Succinate (Solu-MEDROL) 40 mg BID IVP 06/10/18 18:00 07/05/18 14:59 06/11/18 09:22 Ondansetron HCl (Zofran) 4 mg Q4H PRN IVP Nausea & Vomiting 06/09/18 22:15 07/09/18 22:14 06/09/18 22:37 Pantoprazole (Protonix) 40 mg DAILY ORAL 06/10/18 09:00 07/06/18 08:59 06/11/18 09:22 Salmeterol Xinafoate/ Fluticasone (Advair 250/50 Diskus) 1 puffs BID INH 06/09/18 18:00 07/09/18 17:59 06/11/18 09:05 Tiotropium [place] (Spiriva Inhaler) 1 puff DAILY INH 06/10/18 09:00 07/10/18 08:59 06/11/18 10:31 Jason Pinedo MD Jun 11, 2018 16:27
--- NOTE | 2018-06-11 18:11 | General Progress Note ---
Assessment/Plan Problem List: (1) Major depressive disorder ICD Codes: F32.9 - Major depressive disorder, single episode, unspecified SNOMED: 388988149 Assessment/Plan Celexa 20mg qam Provided st/ro Subjective Neurologic/Psychiatric: Reports: anxiety, depressed Allergies: Coded Allergies: No Known Allergies (Unverified , 06/05/18) Subjective episodes of agitation memory impairment Objective Last 24 Hour Vital Signs Date Time Temp Pulse Resp B/P (MAP) Pulse Ox O2 Delivery O2 Flow Rate FiO2 06/11/18 16:00 98.5 74 17 122/70 (87) 99 06/11/18 16:00 Simple Mask 6.0 06/11/18 16:00 79 06/11/18 12:00 Simple Mask 6.0 06/11/18 12:00 74 06/11/18 12:00 98.5 74 18 103/65 (78) 97 06/11/18 10:31 81 18 94 Venturi Mask 35 06/11/18 10:25 87 18 94 Venturi Mask 8.0 35 06/11/18 09:07 76 18 98 Venturi Mask 6.0 35 06/11/18 09:04 76 18 98 Venturi Mask 6.0 35 06/11/18 08:00 74 06/11/18 08:00 98.3 75 20 112/64 (80) 95 06/11/18 08:00 Simple Mask 6.0 06/11/18 05:07 74 18 95 Full Face 30 06/11/18 04:00 65 06/11/18 04:00 Venturi Mask 06/11/18 04:00 98.1 67 16 112/66 (81) 95 06/11/18 02:46 67 17 100 Full Face 30 06/11/18 01:30 70 19 99 Full Face 30 06/11/18 00:00 97.7 70 16 106/69 (81) 98 06/11/18 00:00 Venturi Mask 06/11/18 00:00 71 06/10/18 23:00 73 17 98 Full Face 30 06/10/18 22:00 30 06/10/18 21:36 81 20 98 Venturi Mask 6.0 35 06/10/18 21:34 81 19 98 Venturi Mask 6.0 35 06/10/18 20:00 80 06/10/18 20:00 98.1 82 24 120/71 (87) 97 06/10/18 20:00 Venturi Mask Intake and Output 06/10/18 06/11/18 19:00 07:00 Intake Total 110 ml Output Total 150 ml Balance -40 ml IV Total 110 ml Output Urine Total 150 ml Laboratory Tests 06/11/18 02:50: White Blood Count 9.1, Red Blood Count 3.93L, Hemoglobin 11.5L, Hematocrit 37.8L , Mean Corpuscular Volume 96, Mean Corpuscular Hemoglobin 29.3, Mean Corpuscular Hemoglobin Concent 30.4L, Red Cell Distribution Width 16.2H, Platelet Count 142L, Mean Platelet Volume 8.8, Neutrophils (%) (Auto) , Lymphocytes (%) (Auto) , Monocytes (%) (Auto) , Eosinophils (%) (Auto) , Basophils (%) (Auto) , Sodium Level 144, Potassium Level 4.8, Chloride Level 100 , Carbon Dioxide Level > 45*H, Blood Urea Nitrogen 31H, Creatinine 0.8, Estimat Glomerular Filtration Rate , Glucose Level 98, Calcium Level 8.8 06/11/18 15:10: Arterial Blood pH 7.420, Arterial Blood Partial Pressure CO2 85.3*H, Arterial Blood Partial Pressure O2 106.0H, Arterial Blood HCO3 54.1*H, Arterial Blood Oxygen Saturation 97.5, Arterial Blood Base Excess 24.5*H, Delon Test Positive Height (Feet): 5 Height (Inches): 8.00 Weight (Pounds): 113 General Appearance: alert, agitated Neurologic: depressed affect Destiny Mares MD Jun 11, 2018 18:11
--- NOTE | 2018-06-11 19:03 | NUR ---
NURSE NOTES: Called MD Pinedo per RT to ask for continual BIPAP as recommended by RT. was very strict with his instructions saying pt needs to come off BiPAP in the day and always wear BIPAP at NIGHT ONLY. MD Pinedo instructed that RT call him directly when they insist on asking every morning for continual BiPAP. Will endorse to mixer driver RN.
--- NOTE | 2018-06-11 19:08 | NUR ---
HAND-OFF: Report given to Kimberlee Osei RN. Pt stable. Endorsed MD Pinedo's instyructions regarding Bipap order.
[2018-06-11 20:00] VITALS: BP 128/72
--- NOTE | 2018-06-11 20:00 | NUR ---
NURSE NOTES: Received Pt is resting on the bed and awake and alert. On O2 6L via simple mask with SaO2 99-100% noted. Iv site leaking. Changed New IV line. Changed new condom cath and drainage well. cleaned Pt and applied lotion and cream. Changed Position. Placed fall precaution. Will continue to care plan.
[2018-06-12] VITALS: BP 110/73
[2018-06-12 04:00] VITALS: BP_SYST 116; BP_SYST 16; BP_DIAS 70
[2018-06-12 05:35] LABS: HEMATOCRIT 41.3 % (42.0-52.0); HEMOGLOBIN 12.8 G/DL (14.2-18.0); MEAN CORPUSCULAR VOLUME 97 FL (80-99); PLATELET COUNT 173 K/UL (150-450); RED BLOOD COUNT 4.28 M/UL (4.70-6.10); RED CELL DISTRIBUTION WIDTH 16.3 % (11.6-14.8); WHITE BLOOD COUNT 8.5 K/UL (4.8-10.8)
--- NOTE | 2018-06-12 07:35 | NUR ---
NURSE NOTES: Report received from Kimberlee Bolivar RN.Pt awake alert sitting up on bed eating breakfast,noted no resp distress or discomfort ,denies any c/o pain or discomfort.SR on the monitor,condom cath in placed,skin warm and dry iv site to RFA heplock intact,HOB elevated SR up x2 bed lock in lowest position will continue with plan of care.
--- NOTE | 2018-06-12 07:35 | NUR ---
HAND-OFF: Report given to GENNY Rico. Pt is resting on the bed and no sign of acute distress noted.
--- NOTE | 2018-06-12 07:52 | NUR ---
RESPIRATORY NOTE: pt off bipap and on 35% VM. placed on 2L NC, spo2 95-96%. no redness or skin tears visible. no resp distress noted when seen. will cont to monitor
[2018-06-12 08:00] VITALS: BP 119/64
[2018-06-12] MEDS: Citalopram Hydrobromide 10mg Tab ORAL SCH (08:42)
[2018-06-12] MEDS: Solu-MEDROL 40mg Inj IVP SCH ×2 (08:42→21:44)
[2018-06-12] MEDS: Heparin 5000 units/ml inj SUBQ SCH ×2 (08:44→21:45)
[2018-06-12] MEDS: Advair 250/50 Inhaler - 14 dose INH SCH ×2 (09:03→21:40)
--- NOTE | 2018-06-12 10:06 | Infectious Diseases Prog Note ---
Assessment/Plan Assessment/Plan A; COPD exacerbation Legs cellulitis more in left treated Respiratory failure with hypercapnia Elevated transaminase Cachexia Renal failure improving P: Observe off antibiotic Subjective ROS Limited/Unobtainable: No Respiratory: Reports: no symptoms Cardiovascular: Reports: no symptoms Gastrointestinal/Abdominal: Reports: no symptoms Genitourinary: Reports: no symptoms Allergies: Coded Allergies: No Known Allergies (Unverified , 06/05/18) Objective Vital Signs Last 24 Hour Vital Signs Date Time Temp Pulse Resp B/P (MAP) Pulse Ox O2 Delivery O2 Flow Rate FiO2 06/12/18 09:06 76 20 96 Nasal Cannula 2.0 28 06/12/18 09:05 77 20 95 Nasal Cannula 2.0 28 06/12/18 07:33 Venturi Mask 6.0 35 06/12/18 07:33 95 Venturi Mask 6.0 35 06/12/18 04:44 71 19 98 06/12/18 04:00 30 06/12/18 04:00 Bi-pap 06/12/18 04:00 97.8 65 14 16/70 (52) 95 06/12/18 04:00 70 06/12/18 02:49 69 13 97 Full Face 30 06/12/18 00:59 70 13 98 Full Face 30 06/12/18 00:00 Bi-pap 06/12/18 00:00 63 06/12/18 00:00 30 06/12/18 00:00 97.9 65 17 110/73 (85) 96 06/11/18 23:28 66 16 94 Full Face 30 06/11/18 20:23 68 19 99 Venturi Mask 6.0 35 06/11/18 20:23 69 19 99 Venturi Mask 6.0 35 06/11/18 20:00 80 06/11/18 20:00 98.0 72 17 128/72 (90) 98 06/11/18 20:00 Simple Mask 6.0 06/11/18 16:00 98.5 74 17 122/70 (87) 99 06/11/18 16:00 Simple Mask 6.0 06/11/18 16:00 79 06/11/18 12:00 Simple Mask 6.0 06/11/18 12:00 74 06/11/18 12:00 98.5 74 18 103/65 (78) 97 06/11/18 10:31 81 18 94 Venturi Mask 35 06/11/18 10:25 87 18 94 Venturi Mask 8.0 35 Height (Feet): 5 Height (Inches): 8.00 Weight (Pounds): 113 General Appearance: cachetic HEENT: mucous membranes moist Respiratory/Chest: decreased breath sounds Cardiovascular: normal rate Abdomen: soft, non tender Extremities: no edema Skin: ulcers Neurologic/Psychiatric: alert, responsive Laboratory Tests Test 06/11/18 15:10 06/12/18 03:15 Arterial Blood pH 7.420 (7.350-7.450) Arterial Blood Partial Pressure CO2 85.3 mmHg (35.0-45.0) *H Arterial Blood Partial Pressure O2 106.0 mmHg (75.0-100.0) H Arterial Blood HCO3 54.1 mmol/L (22.0-26.0) *H Arterial Blood Oxygen Saturation 97.5 % (95-100) Arterial Blood Base Excess 24.5 (-2-2) *H Delon Test Positive White Blood Count 8.5 K/UL (4.8-10.8) Red Blood Count 4.28 M/UL (4.70-6.10) L Hemoglobin 12.8 G/DL (14.2-18.0) L Hematocrit 41.3 % (42.0-52.0) L Mean Corpuscular Volume 97 FL (80-99) Mean Corpuscular Hemoglobin 29.9 PG (27.0-31.0) Mean Corpuscular Hemoglobin Concent 31.0 G/DL (32.0-36.0) L Red Cell Distribution Width 16.3 % (11.6-14.8) H Platelet Count 173 K/UL (150-450) Mean Platelet Volume 8.0 FL (6.5-10.1) Neutrophils (%) (Auto) % (45.0-75.0) Lymphocytes (%) (Auto) % (20.0-45.0) Monocytes (%) (Auto) % (1.0-10.0) Eosinophils (%) (Auto) % (0.0-3.0) Basophils (%) (Auto) % (0.0-2.0) Current Medications Medications (Trade) Dose Ordered Sig/Brittani Route PRN Reason Start Time Stop Time Status Last Admin Dose Admin Citalopram Hydrobromide (celeXA) 20 mg DAILY ORAL 06/10/18 09:00 07/07/18 08:59 06/12/18 08:42 Furosemide (Lasix) 40 mg EVERY 12 HOURS IV 06/09/18 21:00 07/05/18 11:59 06/12/18 08:42 Heparin Sodium (Porcine) (Heparin 5000 units/ml) 5,000 units EVERY 12 HOURS SUBQ 06/09/18 21:00 07/05/18 20:59 06/12/18 08:44 Methylprednisolone Sodium Succinate (Solu-MEDROL) 30 mg BID IVP 06/11/18 18:00 07/05/18 14:59 06/12/18 08:42 Ondansetron HCl (Zofran) 4 mg Q4H PRN IVP Nausea & Vomiting 06/09/18 22:15 07/09/18 22:14 06/09/18 22:37 Pantoprazole (Protonix) 40 mg DAILY ORAL 06/10/18 09:00 07/06/18 08:59 06/12/18 08:42 Salmeterol Xinafoate/ Fluticasone (Advair 250/50 Diskus) 1 puffs BID INH 06/09/18 18:00 07/09/18 17:59 06/12/18 09:03 Tiotropium [place] (Spiriva Inhaler) 1 puff DAILY INH 06/10/18 09:00 07/10/18 08:59 06/12/18 09:03 William Avalos MD Jun 12, 2018 10:06
--- NOTE | 2018-06-12 10:55 | General Progress Note ---
Assessment/Plan Assessment/Plan Assessment/Plan Assessment - CHF - COPD / BIPAP - Edema, LE cellulitis -Anemia Recommendations Careful po trial off mask follow labs and exam abx per ID Subjective ROS Limited/Unobtainable: Yes Allergies: Coded Allergies: No Known Allergies (Unverified , 06/05/18) Subjective on BIPAP Objective Last 24 Hour Vital Signs Date Time Temp Pulse Resp B/P (MAP) Pulse Ox O2 Delivery O2 Flow Rate FiO2 06/12/18 09:06 76 20 96 Nasal Cannula 2.0 28 06/12/18 09:05 77 20 95 Nasal Cannula 2.0 28 06/12/18 08:00 97.7 67 15 119/64 (82) 94 06/12/18 08:00 66 06/12/18 07:33 Venturi Mask 6.0 35 06/12/18 07:33 95 Venturi Mask 6.0 35 06/12/18 04:44 71 19 98 06/12/18 04:00 30 06/12/18 04:00 Bi-pap 06/12/18 04:00 97.8 65 14 16/70 (52) 95 06/12/18 04:00 70 06/12/18 02:49 69 13 97 Full Face 30 06/12/18 00:59 70 13 98 Full Face 30 06/12/18 00:00 Bi-pap 06/12/18 00:00 63 06/12/18 00:00 30 06/12/18 00:00 97.9 65 17 110/73 (85) 96 06/11/18 23:28 66 16 94 Full Face 30 06/11/18 20:23 68 19 99 Venturi Mask 6.0 35 06/11/18 20:23 69 19 99 Venturi Mask 6.0 35 06/11/18 20:00 80 06/11/18 20:00 98.0 72 17 128/72 (90) 98 06/11/18 20:00 Simple Mask 6.0 06/11/18 16:00 98.5 74 17 122/70 (87) 99 06/11/18 16:00 Simple Mask 6.0 06/11/18 16:00 79 06/11/18 12:00 Simple Mask 6.0 06/11/18 12:00 74 06/11/18 12:00 98.5 74 18 103/65 (78) 97 Intake and Output 06/11/18 06/12/18 19:00 07:00 Intake Total 260 ml 240 ml Output Total 925 ml 1350 ml Balance -665 ml -1110 ml Intake Oral 260 ml 240 ml Output Urine Total 925 ml 1350 ml # Bowel Movements 2 Laboratory Tests 06/11/18 15:10: Arterial Blood pH 7.420, Arterial Blood Partial Pressure CO2 85.3*H, Arterial Blood Partial Pressure O2 106.0H, Arterial Blood HCO3 54.1*H, Arterial Blood Oxygen Saturation 97.5, Arterial Blood Base Excess 24.5*H, Delon Test Positive 06/12/18 03:15: White Blood Count 8.5, Red Blood Count 4.28L, Hemoglobin 12.8L, Hematocrit 41.3L , Mean Corpuscular Volume 97, Mean Corpuscular Hemoglobin 29.9, Mean Corpuscular Hemoglobin Concent 31.0L, Red Cell Distribution Width 16.3H, Platelet Count 173, Mean Platelet Volume 8.0, Neutrophils (%) (Auto) , Lymphocytes (%) (Auto) , Monocytes (%) (Auto) , Eosinophils (%) (Auto) , Basophils (%) (Auto) Height (Feet): 5 Height (Inches): 8.00 Weight (Pounds): 113 General Appearance: alert EENT: normal ENT inspection Neck: supple Cardiovascular: normal rate Respiratory/Chest: decreased breath sounds Abdomen: normal bowel sounds, non tender, soft Extremities: non-tender Jaylen Aleman MD Jun 12, 2018 10:55
[2018-06-12 12:08] VITALS: BP 95/56
--- NOTE | 2018-06-12 12:16 | Pulmonology Progress Note ---
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 with STRICT aspiration precautions (only when stable off BiPAP) DVT Px HEP SQ Should have outpatient PFT, PSG Subjective Allergies: Coded Allergies: No Known Allergies (Unverified , 06/05/18) Subjective Much better today Used BiPAP ON now on 2L AFVSS HCO3- > 45 + cough less SOB no FC Objective Last 24 Hour Vital Signs Date Time Temp Pulse Resp B/P (MAP) Pulse Ox O2 Delivery O2 Flow Rate FiO2 06/12/18 12:08 98.3 73 19 95/56 (69) 98 06/12/18 12:00 Bi-pap 06/12/18 09:06 76 20 96 Nasal Cannula 2.0 28 06/12/18 09:05 77 20 95 Nasal Cannula 2.0 28 06/12/18 08:00 97.7 67 15 119/64 (82) 94 06/12/18 08:00 Bi-pap 06/12/18 08:00 66 06/12/18 07:33 Venturi Mask 6.0 35 06/12/18 07:33 95 Venturi Mask 6.0 35 06/12/18 04:44 71 19 98 06/12/18 04:00 30 06/12/18 04:00 Bi-pap 06/12/18 04:00 97.8 65 14 16/70 (52) 95 06/12/18 04:00 70 06/12/18 02:49 69 13 97 Full Face 30 06/12/18 00:59 70 13 98 Full Face 30 06/12/18 00:00 Bi-pap 06/12/18 00:00 63 06/12/18 00:00 30 06/12/18 00:00 97.9 65 17 110/73 (85) 96 06/11/18 23:28 66 16 94 Full Face 30 06/11/18 20:23 68 19 99 Venturi Mask 6.0 35 06/11/18 20:23 69 19 99 Venturi Mask 6.0 35 06/11/18 20:00 80 06/11/18 20:00 98.0 72 17 128/72 (90) 98 06/11/18 20:00 Simple Mask 6.0 06/11/18 16:00 98.5 74 17 122/70 (87) 99 06/11/18 16:00 Simple Mask 6.0 06/11/18 16:00 79 Intake and Output 06/11/18 06/12/18 18:59 06:59 Intake Total 260 ml 240 ml Output Total 925 ml 1350 ml Balance -665 ml -1110 ml Intake Oral 260 ml 240 ml Output Urine Total 925 ml 1350 ml # Bowel Movements 2 General Appearance: no acute distress, cachetic HEENT: normocephalic, atraumatic, anicteric, mucous membranes moist Respiratory/Chest: lungs clear - but distant Cardiovascular: normal peripheral pulses, normal rate, regular rhythm Abdomen: normal bowel sounds, soft, non tender, no organomegaly, non distended , no mass Extremities: no cyanosis, no clubbing, no edema Laboratory Tests 06/11/18 15:10: Arterial Blood pH 7.420, Arterial Blood Partial Pressure CO2 85.3*H, Arterial Blood Partial Pressure O2 106.0H, Arterial Blood HCO3 54.1*H, Arterial Blood Oxygen Saturation 97.5, Arterial Blood Base Excess 24.5*H, Delon Test Positive 06/12/18 03:15: White Blood Count 8.5, Red Blood Count 4.28L, Hemoglobin 12.8L, Hematocrit 41.3L , Mean Corpuscular Volume 97, Mean Corpuscular Hemoglobin 29.9, Mean Corpuscular Hemoglobin Concent 31.0L, Red Cell Distribution Width 16.3H, Platelet Count 173, Mean Platelet Volume 8.0, Neutrophils (%) (Auto) , Lymphocytes (%) (Auto) , Monocytes (%) (Auto) , Eosinophils (%) (Auto) , Basophils (%) (Auto) Current Medications Medications (Trade) Dose Ordered Sig/Brittani Route PRN Reason Start Time Stop Time Status Last Admin Dose Admin Citalopram Hydrobromide (celeXA) 20 mg DAILY ORAL 06/10/18 09:00 07/07/18 08:59 06/12/18 08:42 Furosemide (Lasix) 40 mg EVERY 12 HOURS IV 06/09/18 21:00 07/05/18 11:59 06/12/18 08:42 Heparin Sodium (Porcine) (Heparin 5000 units/ml) 5,000 units EVERY 12 HOURS SUBQ 06/09/18 21:00 07/05/18 20:59 06/12/18 08:44 Methylprednisolone Sodium Succinate (Solu-MEDROL) 30 mg BID IVP 06/11/18 18:00 07/05/18 14:59 06/12/18 08:42 Ondansetron HCl (Zofran) 4 mg Q4H PRN IVP Nausea & Vomiting 06/09/18 22:15 07/09/18 22:14 06/09/18 22:37 Pantoprazole (Protonix) 40 mg DAILY ORAL 06/10/18 09:00 07/06/18 08:59 06/12/18 08:42 Salmeterol Xinafoate/ Fluticasone (Advair 250/50 Diskus) 1 puffs BID INH 06/09/18 18:00 07/09/18 17:59 06/12/18 09:03 Tiotropium [place] (Spiriva Inhaler) 1 puff DAILY INH 06/10/18 09:00 07/10/18 08:59 06/12/18 09:03 Jason Pinedo MD Jun 12, 2018 12:16
[2018-06-12] MEDS ORDERED: NS 275ml ONE (13:25)
--- NOTE | 2018-06-12 13:30 | NUR ---
NURSE NOTES: Dr Pinedo at bedside ,discussed with pt re plans of care.
--- NOTE | 2018-06-12 15:17 | General Progress Note ---
Assessment/Plan Assessment/Plan COVERING FOR DR. CHIN ASSESSMENT AND RECOMMENDATIONS # Thrombocytopenia - potential causes multifactorial, evaluate liver and viral etiologies to begin, also could be related to underlying medications patient has received. --> Monitor and trend Plt count for improvement/stability --> Currently on Heparin --> Hep panel is negative, HIV neg --> US abd shows slightly increased renal echogenicity, consistent with medical renal disease. Negative for hydronephrosis --> abx and other meds have been reviewed # Anemia of chronic disease due to underlying chronic medical issues, multifactorial. --> Current hgb >10, no w/u required at this time --> Monitor for stability # Bilateral lower extremity edema. BNP is also 7500. --> on Lasix 40 mg IV b.i.d. as per pulm --> duplex lower ext negative # COPD exacerbation. Pulm is following, appreciate recs. --> currently on BiPAP prn, on steriods # Lower extremity cellulitis. ID is following, appreciate recs. --> On antibiotics. Subjective Constitutional: Denies: no symptoms, chills, diaphoresis, fever, malaise, weakness, other HEENT: Denies: no symptoms, eye pain, blurred vision, tearing, double vision, ear pain, ear discharge, nose pain, nose congestion, throat pain, throat swelling, mouth pain, mouth swelling, other Cardiovascular: Denies: no symptoms, chest pain, edema, irregular heart rate, lightheadedness, palpitations, syncope, other Respiratory: Denies: no symptoms, cough, orthopnea, shortness of breath, SOB with excertion, SOB at rest, sputum, stridor, wheezing, other Gastrointestinal/Abdominal: Denies: no symptoms, abdomen distended, abdominal pain, black stools, tarry stools, blood in stool, constipated, diarrhea, difficulty swallowing, nausea, poor appetite, poor fluid intake, rectal bleeding , vomiting, other Genitourinary: Denies: no symptoms, burning, discharge, frequency, flank pain, hematuria, incontinence, pain, urgency, other Neurologic/Psychiatric: Denies: no symptoms, anxiety, depressed, emotional problems, headache, numbness, paresthesia, pre-existing deficit, seizure, tingling, tremors, weakness, other Endocrine: Denies: no symptoms, excessive sweating, flushing, intolerance to cold, intolerance to heat, increased hunger, increased thirst, increased urine, unexplained weight gain, unexplained weight loss, other Hematologic/Lymphatic: Denies: no symptoms, anemia, easy bleeding, easy bruising, other Allergies: Coded Allergies: No Known Allergies (Unverified , 06/05/18) Subjective 06/11: Seen by RT for low O2 sat overnight, remains on BIPAP. VS remain stable. 06/12: getting bipap prn especially at night and during day on simple mask, monitoring fluid status, labs currently stable Objective Last 24 Hour Vital Signs Date Time Temp Pulse Resp B/P (MAP) Pulse Ox O2 Delivery O2 Flow Rate FiO2 06/12/18 12:08 98.3 73 19 95/56 (69) 98 06/12/18 12:00 Bi-pap 06/12/18 12:00 72 06/12/18 09:07 77 22 96 Nasal Cannula 2.0 28 06/12/18 09:07 77 22 96 Nasal Cannula 2.0 28 06/12/18 09:06 76 20 96 Nasal Cannula 2.0 28 06/12/18 09:05 77 20 95 Nasal Cannula 2.0 28 06/12/18 08:00 97.7 67 15 119/64 (82) 94 06/12/18 08:00 Bi-pap 06/12/18 08:00 66 06/12/18 07:33 Venturi Mask 6.0 35 06/12/18 07:33 95 Venturi Mask 6.0 35 06/12/18 04:44 71 19 98 06/12/18 04:00 30 06/12/18 04:00 Bi-pap 06/12/18 04:00 97.8 65 14 16/70 (52) 95 06/12/18 04:00 70 06/12/18 02:49 69 13 97 Full Face 30 06/12/18 00:59 70 13 98 Full Face 30 06/12/18 00:00 Bi-pap 06/12/18 00:00 63 06/12/18 00:00 30 06/12/18 00:00 97.9 65 17 110/73 (85) 96 06/11/18 23:28 66 16 94 Full Face 30 06/11/18 20:23 68 19 99 Venturi Mask 6.0 35 06/11/18 20:23 69 19 99 Venturi Mask 6.0 35 06/11/18 20:00 80 06/11/18 20:00 98.0 72 17 128/72 (90) 98 06/11/18 20:00 Simple Mask 6.0 06/11/18 16:00 98.5 74 17 122/70 (87) 99 06/11/18 16:00 Simple Mask 6.0 06/11/18 16:00 79 Intake and Output 06/11/18 06/12/18 18:59 06:59 Intake Total 260 ml 240 ml Output Total 925 ml 1350 ml Balance -665 ml -1110 ml Intake Oral 260 ml 240 ml Output Urine Total 925 ml 1350 ml # Bowel Movements 2 Laboratory Tests 06/12/18 03:15: White Blood Count 8.5, Red Blood Count 4.28L, Hemoglobin 12.8L, Hematocrit 41.3L , Mean Corpuscular Volume 97, Mean Corpuscular Hemoglobin 29.9, Mean Corpuscular Hemoglobin Concent 31.0L, Red Cell Distribution Width 16.3H, Platelet Count 173, Mean Platelet Volume 8.0, Neutrophils (%) (Auto) , Lymphocytes (%) (Auto) , Monocytes (%) (Auto) , Eosinophils (%) (Auto) , Basophils (%) (Auto) Height (Feet): 5 Height (Inches): 8.00 Weight (Pounds): 113 Objective PHYSICAL EXAMINATION: VITAL SIGNS: Have been reviewed HEAD AND NECK: Show positive JVD. LUNGS: Decreased breath sounds. sob is improved CARDIOVASCULAR: Shows regular S1 and S2 with no gallop. ABDOMEN: Soft. EXTREMITIES: Bilateral 2+ pitting edema and cellulitis. Conrado Morel MD Jun 12, 2018 15:17
[2018-06-12 16:00] VITALS: BP 113/67
--- NOTE | 2018-06-12 17:00 | NUR ---
NURSE NOTES: Pt stable ,no distress presented during the shift,family members at bedside.
--- NOTE | 2018-06-12 19:35 | NUR ---
HAND-OFF: Report given to Kimberlee Bolivar RN..
--- NOTE | 2018-06-12 19:40 | NUR ---
NURSE NOTES: Received PT is resting on the bed and no sign of acute distress noted. On O2 3L via nasal cannula and SaO2 99-100% noted. Iv site intact and no sign of acute distress noted. Noted large amount brownish BM. Cleaned Pt and applied lotion and cream. On condom cath and yellowish urine urinated. Denied pain at this time. Placed fall precaution. Will continue to care plan.
[2018-06-12 20:00] VITALS: BP 118/78
--- NOTE | 2018-06-12 22:24 | Cardiology Progress Note ---
Assessment/Plan Status: stable Assessment/Plan Assessment/Plan Assessment/Plan 1. Severe bilateral lower extremity edema. BNP is also 7500. Due to diastolic dysfunction. On Lasix 40 mg IV b.i.d. Lower extremity duplex no DVT. Echo EF 55% 2. COPD exacerbation. On BiPAP and Solumedrol 3. Lower extremity cellulitis,on antibiotics. Subjective Cardiovascular: Reports: no symptoms Respiratory: Reports: no symptoms Gastrointestinal/Abdominal: Reports: no symptoms Genitourinary: Reports: no symptoms Subjective COVERAGE FOR TOLUIE Awake and A/O x4. Denies pain at this time. pt is on Ventri mask with 35%, saturating at 99%. Telemonitoring: SR with no distress noted, CO2 was rising earlier. Objective Last 24 Hour Vital Signs Date Time Temp Pulse Resp B/P (MAP) Pulse Ox O2 Delivery O2 Flow Rate FiO2 06/12/18 21:41 75 18 97 Nasal Cannula 2.0 28 06/12/18 21:41 75 18 97 Nasal Cannula 2.0 28 06/12/18 20:00 97.7 78 16 118/78 (91) 99 06/12/18 20:00 77 06/12/18 18:58 99 Nasal Cannula 3.0 32 06/12/18 18:58 Nasal Cannula 3.0 32 06/12/18 16:00 99.0 81 19 113/67 (82) 98 06/12/18 16:00 78 06/12/18 16:00 Bi-pap 06/12/18 12:08 98.3 73 19 95/56 (69) 98 06/12/18 12:00 Bi-pap 06/12/18 12:00 72 06/12/18 09:07 77 22 96 Nasal Cannula 2.0 28 06/12/18 09:07 77 22 96 Nasal Cannula 2.0 28 06/12/18 09:06 76 20 96 Nasal Cannula 2.0 28 06/12/18 09:05 77 20 95 Nasal Cannula 2.0 28 06/12/18 08:00 97.7 67 15 119/64 (82) 94 06/12/18 08:00 Bi-pap 06/12/18 08:00 66 06/12/18 07:33 Venturi Mask 6.0 35 06/12/18 07:33 95 Venturi Mask 6.0 35 06/12/18 04:44 71 19 98 06/12/18 04:00 30 06/12/18 04:00 Bi-pap 06/12/18 04:00 97.8 65 14 16/70 (52) 95 06/12/18 04:00 70 06/12/18 02:49 69 13 97 Full Face 30 06/12/18 00:59 70 13 98 Full Face 30 06/12/18 00:00 Bi-pap 06/12/18 00:00 63 06/12/18 00:00 30 06/12/18 00:00 97.9 65 17 110/73 (85) 96 06/11/18 23:28 66 16 94 Full Face 30 General Appearance: no apparent distress, alert EENT: PERRL/EOMI, normal ENT inspection, TMs normal Neck: non-tender, normal alignment, supple, normal inspection Rhythm: NSR Cardiovascular: normal peripheral pulses, normal rate, regular rhythm Respiratory/Chest: chest wall non-tender, lungs clear, normal breath sounds Abdomen: normal bowel sounds, non tender, soft, no mass, hyperactive bowel sounds Extremities: normal range of motion, normal inspection, no calf tenderness 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, no motor/sensory deficits Intake and Output 06/11/18 06/12/18 19:00 07:00 Intake Total 260 ml 240 ml Output Total 925 ml 1350 ml Balance -665 ml -1110 ml Intake Oral 260 ml 240 ml Output Urine Total 925 ml 1350 ml # Bowel Movements 2 Laboratory Tests Test 06/12/18 03:15 White Blood Count 8.5 K/UL (4.8-10.8) Red Blood Count 4.28 M/UL (4.70-6.10) L Hemoglobin 12.8 G/DL (14.2-18.0) L Hematocrit 41.3 % (42.0-52.0) L Mean Corpuscular Volume 97 FL (80-99) Mean Corpuscular Hemoglobin 29.9 PG (27.0-31.0) Mean Corpuscular Hemoglobin Concent 31.0 G/DL (32.0-36.0) L Red Cell Distribution Width 16.3 % (11.6-14.8) H Platelet Count 173 K/UL (150-450) Mean Platelet Volume 8.0 FL (6.5-10.1) Neutrophils (%) (Auto) % (45.0-75.0) Lymphocytes (%) (Auto) % (20.0-45.0) Monocytes (%) (Auto) % (1.0-10.0) Eosinophils (%) (Auto) % (0.0-3.0) Basophils (%) (Auto) % (0.0-2.0) Johny Rodriguez MD Jun 12, 2018 22:24
[2018-06-13] VITALS: BP 105/67
[2018-06-13 04:00] VITALS: BP 120/70
--- NOTE | 2018-06-13 07:47 | NUR ---
HAND-OFF: Report given to GENNY Holland. Pt is resting on the bed and no sign of acuter distress noted.
[2018-06-13 08:00] VITALS: BP 116/59
--- NOTE | 2018-06-13 08:00 | NUR ---
NURSE NOTES: Received patient from GENNY Mohan. Pt is resting on the bed and no sign of acute distress noted. On O2 3L via nasal cannula and SaO2 99-100% noted. Iv site intact and no sign of acute distress noted. On condom cath and yellowish urine urinated. Denied pain at this time. Placed fall precaution. Will continue to care plan.
[2018-06-13] MEDS: Solu-MEDROL 40mg Inj IVP SCH (08:41)
[2018-06-13] MEDS: Citalopram Hydrobromide 10mg Tab ORAL SCH (08:41)
[2018-06-13] MEDS: Heparin 5000 units/ml inj SUBQ SCH ×2 (09:21→20:17)
--- NOTE | 2018-06-13 09:28 | NUR ---
CASE MANAGEMENT: REVIEW SI: COPD EXACERBATION T 97.2 HR 67 RR 16 BP 1052/67 SAT 97% BIPAP FIO2 30 IS: SOLU MEDROL IV Q12HR LASIX IV Q12HR PROTONIX PO QD ADVAIR 250/50 INH BID STEP DOWN UNIT STATUS DCP: PATIENT IS FROM HOME
[2018-06-13] MEDS: Advair 250/50 Inhaler - 14 dose INH SCH ×2 (09:30→21:58)
--- NOTE | 2018-06-13 11:36 | Cardiac Electrophysiology PN ---
Assessment/Plan Assessment/Plan 1. Severe bilateral lower extremity edema. BNP is 7500. Due to diastolic dysfunction. On Lasix 40 mg IV b.i.d. Lower extremity duplex no DVT. Echo EF 55% 2. COPD exacerbation. On Solumedrol 3. Lower extremity cellulitis,on antibiotics. JABIER RN Subjective Subjective Off BIPAP. Alert awaiting discharge. No CP or SOB Objective Last 24 Hour Vital Signs Date Time Temp Pulse Resp B/P (MAP) Pulse Ox O2 Delivery O2 Flow Rate FiO2 06/13/18 09:37 78 13 99 Nasal Cannula 2.0 28 06/13/18 09:35 78 15 99 Nasal Cannula 2.0 28 06/13/18 09:32 77 14 100 Nasal Cannula 2.0 28 06/13/18 09:30 74 14 100 Nasal Cannula 2.0 28 06/13/18 08:18 67 06/13/18 08:00 Bi-pap 06/13/18 08:00 98.0 72 16 116/59 (78) 99 06/13/18 07:10 Nasal Cannula 3.0 32 06/13/18 07:09 99 Nasal Cannula 3.0 32 06/13/18 04:58 64 17 98 Facial 30 06/13/18 04:00 67 06/13/18 04:00 30 06/13/18 04:00 Bi-pap 06/13/18 04:00 97.2 67 16 120/70 (87) 99 06/13/18 02:59 65 17 99 Facial 30 06/13/18 00:56 68 17 97 Facial 30 06/13/18 00:00 30 06/13/18 00:00 71 06/13/18 00:00 97.5 81 16 105/67 (80) 98 06/13/18 00:00 Bi-pap 06/12/18 23:41 71 16 98 Facial 30 06/12/18 21:41 75 18 97 Nasal Cannula 2.0 28 06/12/18 21:41 75 18 97 Nasal Cannula 2.0 28 06/12/18 20:00 97.7 78 16 118/78 (91) 99 06/12/18 20:00 77 06/12/18 20:00 Nasal Cannula 3.0 06/12/18 20:00 3.0 06/12/18 18:58 99 Nasal Cannula 3.0 32 06/12/18 18:58 Nasal Cannula 3.0 32 06/12/18 16:00 99.0 81 19 113/67 (82) 98 06/12/18 16:00 78 06/12/18 16:00 Bi-pap 06/12/18 12:08 98.3 73 19 95/56 (69) 98 06/12/18 12:00 Bi-pap 06/12/18 12:00 72 Intake and Output 06/12/18 06/13/18 19:00 07:00 Intake Total 480 ml 120 ml Output Total 1450 ml 2350 ml Balance -970 ml -2230 ml Intake Oral 480 ml 120 ml Output Urine Total 1450 ml 2350 ml # Bowel Movements 2 Objective HEAD AND NECK: Mild JVD. LUNGS: Decreased breath sounds. CARDIOVASCULAR: Regular S1 and S2 with no gallop. ABDOMEN: Soft. EXTREMITIES: 2+ pitting edema and cellulitis. Lv Campbell MD Jun 13, 2018 11:36
[2018-06-13 12:00] VITALS: BP 130/65
--- NOTE | 2018-06-13 12:49 | Diagnostic Imaging Report ---
APPROVED REPORT CPT Code: 77088 Present Symptoms Comments: Swelling BILATERAL: Imaging reveals a patent deep venous system bilaterally. There is no evidence of thrombus within the femoral, popliteal or tibial segments. The greater saphenous veins are also within normal limits. Doppler indicates normal spontaneous flow within these segments.
--- NOTE | 2018-06-13 13:19 | GI Progress Note ---
Assessment/Plan Status: stable Status Narrative Discussed with Dr. Aleman. Assessment/Plan Assessment - CHF - COPD / BIPAP - Edema, LE cellulitis - Anemia - hepatitis panel negative - abdominal US reviewed Recommendations Careful po trial off mask follow labs and exam abx per ID trend LFTs fu labs The patient was seen and examined at bedside and all new and available data was reviewed in the patients chart. I agree with the above findings, impression and plan. (Patient seen earlier today. Signature stamp does not reflect patient encounter time.). - Jaylen Aleman MD Subjective Subjective limited Objective Last 24 Hour Vital Signs Date Time Temp Pulse Resp B/P (MAP) Pulse Ox O2 Delivery O2 Flow Rate FiO2 06/13/18 13:01 73 06/13/18 09:37 78 13 99 Nasal Cannula 2.0 28 06/13/18 09:35 78 15 99 Nasal Cannula 2.0 28 06/13/18 09:32 77 14 100 Nasal Cannula 2.0 28 06/13/18 09:30 74 14 100 Nasal Cannula 2.0 28 06/13/18 08:18 67 06/13/18 08:00 Bi-pap 06/13/18 08:00 98.0 72 16 116/59 (78) 99 06/13/18 07:10 Nasal Cannula 3.0 32 06/13/18 07:09 99 Nasal Cannula 3.0 32 06/13/18 04:58 64 17 98 Facial 30 06/13/18 04:00 67 06/13/18 04:00 30 06/13/18 04:00 Bi-pap 06/13/18 04:00 97.2 67 16 120/70 (87) 99 06/13/18 02:59 65 17 99 Facial 30 06/13/18 00:56 68 17 97 Facial 30 06/13/18 00:00 30 06/13/18 00:00 71 06/13/18 00:00 97.5 81 16 105/67 (80) 98 06/13/18 00:00 Bi-pap 06/12/18 23:41 71 16 98 Facial 30 06/12/18 21:41 75 18 97 Nasal Cannula 2.0 28 06/12/18 21:41 75 18 97 Nasal Cannula 2.0 28 06/12/18 20:00 97.7 78 16 118/78 (91) 99 06/12/18 20:00 77 06/12/18 20:00 Nasal Cannula 3.0 06/12/18 20:00 3.0 06/12/18 18:58 99 Nasal Cannula 3.0 32 06/12/18 18:58 Nasal Cannula 3.0 32 06/12/18 16:00 99.0 81 19 113/67 (82) 98 06/12/18 16:00 78 06/12/18 16:00 Bi-pap Intake and Output 06/12/18 06/13/18 19:00 07:00 Intake Total 480 ml 120 ml Output Total 1450 ml 2350 ml Balance -970 ml -2230 ml Intake Oral 480 ml 120 ml Output Urine Total 1450 ml 2350 ml # Bowel Movements 2 Height (Feet): 5 Height (Inches): 8.00 Weight (Pounds): 116 General Appearance: WD/WN, no apparent distress, alert Cardiovascular: normal rate Respiratory/Chest: normal breath sounds, no respiratory distress Abdominal Exam: normal bowel sounds, non tender, soft Extremities: normal range of motion, non-tender Jasper Brar HANGER OFF Jun 13, 2018 13:19
--- NOTE | 2018-06-13 13:21 | Pulmonology Progress Note ---
Assessment/Plan Problems: (1) COPD exacerbation (2) Pulmonary hypertension (3) Chronic hypercapnic respiratory failure (4) Elevated d-dimer (5) Left leg cellulitis (6) Major depressive disorder Assessment/Plan PRN and qHS BiPAP - ENCOURAGE NOCTURNAL COMPLIANCE Will need nocturnal NIPPV after discharge Needs O2 post discharge RTC and PRN DUOnebs Continue Spiriva and Advair Decrease SM to10 IV BID and taper Monitor volumes and renal function, AVOID OVERDIURESIS F/U cardiology recs Diet per [employer] with STRICT aspiration precautions (only when stable off BiPAP) DVT Px HEP SQ Should have outpatient PFT, PSG Subjective Allergies: Coded Allergies: No Known Allergies (Unverified , 06/05/18) Subjective Much better today Used BiPAP breifly ON now on RA AFVSS HCO3- > 45 + cough less SOB no FC Objective Last 24 Hour Vital Signs Date Time Temp Pulse Resp B/P (MAP) Pulse Ox O2 Delivery O2 Flow Rate FiO2 06/13/18 13:01 73 06/13/18 09:37 78 13 99 Nasal Cannula 2.0 28 06/13/18 09:35 78 15 99 Nasal Cannula 2.0 28 06/13/18 09:32 77 14 100 Nasal Cannula 2.0 28 06/13/18 09:30 74 14 100 Nasal Cannula 2.0 28 06/13/18 08:18 67 06/13/18 08:00 Bi-pap 06/13/18 08:00 98.0 72 16 116/59 (78) 99 06/13/18 07:10 Nasal Cannula 3.0 32 06/13/18 07:09 99 Nasal Cannula 3.0 32 06/13/18 04:58 64 17 98 Facial 30 06/13/18 04:00 67 06/13/18 04:00 30 06/13/18 04:00 Bi-pap 06/13/18 04:00 97.2 67 16 120/70 (87) 99 06/13/18 02:59 65 17 99 Facial 30 06/13/18 00:56 68 17 97 Facial 30 06/13/18 00:00 30 06/13/18 00:00 71 06/13/18 00:00 97.5 81 16 105/67 (80) 98 06/13/18 00:00 Bi-pap 06/12/18 23:41 71 16 98 Facial 30 06/12/18 21:41 75 18 97 Nasal Cannula 2.0 28 06/12/18 21:41 75 18 97 Nasal Cannula 2.0 28 06/12/18 20:00 97.7 78 16 118/78 (91) 99 06/12/18 20:00 77 18 20:00 Nasal Cannula 3.0 06/12/18 20:00 3.0 06/12/18 18:58 99 Nasal Cannula 3.0 32 06/12/18 18:58 Nasal Cannula 3.0 32 06/12/18 16:00 99.0 81 19 113/67 (82) 98 06/12/18 16:00 78 06/12/18 16:00 Bi-pap Intake and Output 06/12/18 06/13/18 19:00 07:00 Intake Total 480 ml 120 ml Output Total 1450 ml 2350 ml Balance -970 ml -2230 ml Intake Oral 480 ml 120 ml Output Urine Total 1450 ml 2350 ml # Bowel Movements 2 General Appearance: WD/WN, no acute distress HEENT: normocephalic, atraumatic, anicteric, mucous membranes moist Respiratory/Chest: chest wall non-tender, lungs clear, normal breath sounds, no respiratory distress, no accessory muscle use Cardiovascular: normal peripheral pulses, normal rate, regular rhythm Abdomen: normal bowel sounds, soft, non tender, no organomegaly, non distended , no mass Extremities: no cyanosis, no clubbing, no edema Current Medications Medications (Trade) Dose Ordered Sig/Brittani Route PRN Reason Start Time Stop Time Status Last Admin Dose Admin Citalopram Hydrobromide (celeXA) 20 mg DAILY ORAL 06/10/18 09:00 07/07/18 08:59 06/13/18 08:41 Furosemide (Lasix) 40 mg EVERY 12 HOURS IV 06/09/18 21:00 07/05/18 11:59 06/13/18 08:41 Heparin Sodium (Porcine) (Heparin 5000 units/ml) 5,000 units EVERY 12 HOURS SUBQ 06/09/18 21:00 07/05/18 20:59 06/13/18 09:21 Methylprednisolone Sodium Succinate (Solu-MEDROL) 20 mg Q12HR IVP 06/12/18 21:00 07/12/18 20:59 06/13/18 08:41 Ondansetron HCl (Zofran) 4 mg Q4H PRN IVP Nausea & Vomiting 06/09/18 22:15 07/09/18 22:14 06/09/18 22:37 Pantoprazole (Protonix) 40 mg DAILY ORAL 06/10/18 09:00 07/06/18 08:59 06/13/18 08:41 Salmeterol Xinafoate/ Fluticasone (Advair 250/50 Diskus) 1 puffs BID INH 06/09/18 18:00 07/09/18 17:59 06/13/18 09:30 Tiotropium [place] (Spiriva Inhaler) 1 puff DAILY INH 06/10/18 09:00 07/10/18 08:59 06/13/18 09:35 Jason Pinedo MD Jun 13, 2018 13:21
--- NOTE | 2018-06-13 13:54 | Infectious Diseases Prog Note ---
Assessment/Plan Assessment/Plan A; COPD exacerbation Legs cellulitis more in left treated Respiratory failure with hypercapnia Elevated transaminase Cachexia Renal failure improving P: Observe off antibiotic Subjective ROS Limited/Unobtainable: No Respiratory: Reports: dry cough Cardiovascular: Reports: no symptoms Gastrointestinal/Abdominal: Reports: no symptoms Genitourinary: Reports: no symptoms Allergies: Coded Allergies: No Known Allergies (Unverified , 06/05/18) Objective Vital Signs Last 24 Hour Vital Signs Date Time Temp Pulse Resp B/P (MAP) Pulse Ox O2 Delivery O2 Flow Rate FiO2 06/13/18 13:01 73 06/13/18 09:37 78 13 99 Nasal Cannula 2.0 28 06/13/18 09:35 78 15 99 Nasal Cannula 2.0 28 06/13/18 09:32 77 14 100 Nasal Cannula 2.0 28 06/13/18 09:30 74 14 100 Nasal Cannula 2.0 28 06/13/18 08:18 67 06/13/18 08:00 Bi-pap 06/13/18 08:00 98.0 72 16 116/59 (78) 99 06/13/18 07:10 Nasal Cannula 3.0 32 06/13/18 07:09 99 Nasal Cannula 3.0 32 06/13/18 04:58 64 17 98 Facial 30 06/13/18 04:00 67 06/13/18 04:00 30 06/13/18 04:00 Bi-pap 06/13/18 04:00 97.2 67 16 120/70 (87) 99 06/13/18 02:59 65 17 99 Facial 30 06/13/18 00:56 68 17 97 Facial 30 06/13/18 00:00 30 06/13/18 00:00 71 06/13/18 00:00 97.5 81 16 105/67 (80) 98 06/13/18 00:00 Bi-pap 06/12/18 23:41 71 16 98 Facial 30 06/12/18 21:41 75 18 97 Nasal Cannula 2.0 28 06/12/18 21:41 75 18 97 Nasal Cannula 2.0 28 06/12/18 20:00 97.7 78 16 118/78 (91) 99 06/12/18 20:00 77 06/12/18 20:00 Nasal Cannula 3.0 06/12/18 20:00 3.0 06/12/18 18:58 99 Nasal Cannula 3.0 32 06/12/18 18:58 Nasal Cannula 3.0 32 06/12/18 16:00 99.0 81 19 113/67 (82) 98 06/12/18 16:00 78 06/12/18 16:00 Bi-pap Height (Feet): 5 Height (Inches): 8.00 Weight (Pounds): 116 General Appearance: cachetic HEENT: mucous membranes moist Respiratory/Chest: lungs clear Cardiovascular: normal rate Abdomen: soft, non tender Extremities: no edema Skin: ulcers Neurologic/Psychiatric: alert, responsive Current Medications Medications (Trade) Dose Ordered Sig/Brittani Route PRN Reason Start Time Stop Time Status Last Admin Dose Admin Citalopram Hydrobromide (celeXA) 20 mg DAILY ORAL 06/10/18 09:00 07/07/18 08:59 06/13/18 08:41 Furosemide (Lasix) 40 mg EVERY 12 HOURS IV 06/09/18 21:00 07/05/18 11:59 06/13/18 08:41 Heparin Sodium (Porcine) (Heparin 5000 units/ml) 5,000 units EVERY 12 HOURS SUBQ 06/09/18 21:00 07/05/18 20:59 06/13/18 09:21 Methylprednisolone Sodium Succinate (Solu-MEDROL) 10 mg Q12HR IVP 06/13/18 21:00 07/12/18 20:59 Ondansetron HCl (Zofran) 4 mg Q4H PRN IVP Nausea & Vomiting 06/09/18 22:15 07/09/18 22:14 06/09/18 22:37 Pantoprazole (Protonix) 40 mg DAILY ORAL 06/10/18 09:00 07/06/18 08:59 06/13/18 08:41 Salmeterol Xinafoate/ Fluticasone (Advair 250/50 Diskus) 1 puffs BID INH 06/09/18 18:00 07/09/18 17:59 06/13/18 09:30 Tiotropium [place] (Spiriva Inhaler) 1 puff DAILY INH 06/10/18 09:00 07/10/18 08:59 06/13/18 09:35 William Avalos MD Jun 13, 2018 13:54
--- NOTE | 2018-06-13 15:15 | General Progress Note ---
Assessment/Plan Status: stable Assessment/Plan COVERING FOR DR. CHIN ASSESSMENT AND RECOMMENDATIONS # Thrombocytopenia - potential causes multifactorial, evaluate liver and viral etiologies to begin, also could be related to underlying medications patient has received. --> Monitor and trend Plt count for improvement/stability --> Currently on Heparin --> Hep panel is negative, HIV neg --> US abd shows slightly increased renal echogenicity, consistent with medical renal disease. Negative for hydronephrosis --> abx and other meds have been reviewed # Anemia of chronic disease due to underlying chronic medical issues, multifactorial. --> Current hgb >10, no w/u required at this time --> Monitor for stability # Bilateral lower extremity edema. BNP is also 7500. --> on Lasix 40 mg IV b.i.d. as per pulm --> duplex lower ext negative # COPD exacerbation. Pulm is following, appreciate recs. --> currently on BiPAP prn, on steriods # Lower extremity cellulitis. ID is following, appreciate recs. --> Completed antibiotics. Subjective Date patient seen: Jun 13, 2018 Hematologic/Lymphatic: Reports: anemia Allergies: Coded Allergies: No Known Allergies (Unverified , 06/05/18) All Systems: reviewed and negative except above Subjective 06/11: Seen by RT for low O2 sat overnight, remains on BIPAP. VS remain stable. 06/12: getting bipap prn especially at night and during day on simple mask, monitoring fluid status, labs currently stable 06/13: Pt now on NC. No acute events. Observe off of abx per ID. VS stable. Objective Last 24 Hour Vital Signs Date Time Temp Pulse Resp B/P (MAP) Pulse Ox O2 Delivery O2 Flow Rate FiO2 06/13/18 13:01 73 06/13/18 09:37 78 13 99 Nasal Cannula 2.0 28 06/13/18 09:35 78 15 99 Nasal Cannula 2.0 28 06/13/18 09:32 77 14 100 Nasal Cannula 2.0 28 06/13/18 09:30 74 14 100 Nasal Cannula 2.0 28 06/13/18 08:18 67 06/13/18 08:00 Bi-pap 06/13/18 08:00 98.0 72 16 116/59 (78) 99 06/13/18 07:10 Nasal Cannula 3.0 32 06/13/18 07:09 99 Nasal Cannula 3.0 32 06/13/18 04:58 64 17 98 Facial 30 06/13/18 04:00 67 06/13/18 04:00 30 06/13/18 04:00 Bi-pap 06/13/18 04:00 97.2 67 16 120/70 (87) 99 06/13/18 02:59 65 17 99 Facial 30 06/13/18 00:56 68 17 97 Facial 30 06/13/18 00:00 30 06/13/18 00:00 71 06/13/18 00:00 97.5 81 16 105/67 (80) 98 06/13/18 00:00 Bi-pap 06/12/18 23:41 71 16 98 Facial 30 06/12/18 21:41 75 18 97 Nasal Cannula 2.0 28 06/12/18 21:41 75 18 97 Nasal Cannula 2.0 28 06/12/18 20:00 97.7 78 16 118/78 (91) 99 06/12/18 20:00 77 06/12/18 20:00 Nasal Cannula 3.0 06/12/18 20:00 3.0 06/12/18 18:58 99 Nasal Cannula 3.0 32 06/12/18 18:58 Nasal Cannula 3.0 32 06/12/18 16:00 99.0 81 19 113/67 (82) 98 06/12/18 16:00 78 06/12/18 16:00 Bi-pap Intake and Output 06/12/18 06/13/18 19:00 07:00 Intake Total 480 ml 120 ml Output Total 1450 ml 2350 ml Balance -970 ml -2230 ml Intake Oral 480 ml 120 ml Output Urine Total 1450 ml 2350 ml # Bowel Movements 2 Height (Feet): 5 Height (Inches): 8.00 Weight (Pounds): 116 Objective PHYSICAL EXAMINATION: VITAL SIGNS: Have been reviewed HEAD AND NECK: Show positive JVD. LUNGS: Decreased breath sounds. sob is improved CARDIOVASCULAR: Shows regular S1 and S2 with no gallop. ABDOMEN: Soft. EXTREMITIES: Bilateral 2+ pitting edema and cellulitis. Conrado Morel MD Jun 13, 2018 15:14
[2018-06-13 16:00] VITALS: BP 120/55
--- NOTE | 2018-06-13 19:00 | NUR ---
NURSE NOTES: Received patient from GENNY Yin. Pt is resting on the bed and no sign of acute distress noted. On O2 3L via nasal cannula and SaO2 97-100% noted. IV site intact and no sign of acute distress noted. On condom catheter, Denies pain at this time Vitals are stable, at this time. Placed fall precaution, patients bed is in its lowest position and call light is within reach. Will continue to care plan.
--- NOTE | 2018-06-13 19:10 | NUR ---
HAND-OFF: Report given to GENNY Charles. No s/s of acute distress.
[2018-06-13 20:00] VITALS: BP 123/71
--- NOTE | 2018-06-13 20:00 | NUR ---
NURSE NOTES: Patient repositioned, BP 123/71, 73SR, Spo2 98% on NC 3L, 98.2F (oral). No acute distress at this time, patient is cooperative and content. Bed in lowest position and bed alarm on, call light within reach.
--- NOTE | 2018-06-13 20:12 | General Progress Note ---
Assessment/Plan Problem List: (1) Major depressive disorder ICD Codes: F32.9 - Major depressive disorder, single episode, unspecified SNOMED: 599971882 Assessment/Plan Celexa 20mg qam Provided st/ro Subjective Constitutional: Reports: no symptoms, chills, diaphoresis, fever, malaise, weakness, other Allergies: Coded Allergies: No Known Allergies (Unverified , 06/05/18) Subjective episodes of agitation memory impairment Objective Last 24 Hour Vital Signs Date Time Temp Pulse Resp B/P (MAP) Pulse Ox O2 Delivery O2 Flow Rate FiO2 06/13/18 20:00 98.2 73 18 123/71 (88) 99 06/13/18 20:00 Bi-pap 06/13/18 16:53 75 06/13/18 16:00 Bi-pap 06/13/18 16:00 98.0 72 16 120/55 (76) 99 06/13/18 13:01 73 06/13/18 12:00 Bi-pap 06/13/18 12:00 97.2 70 16 130/65 (86) 99 06/13/18 09:37 78 13 99 Nasal Cannula 2.0 28 06/13/18 09:35 78 15 99 Nasal Cannula 2.0 28 06/13/18 09:32 77 14 100 Nasal Cannula 2.0 28 06/13/18 09:30 74 14 100 Nasal Cannula 2.0 28 06/13/18 08:18 67 06/13/18 08:00 Bi-pap 06/13/18 08:00 98.0 72 16 116/59 (78) 99 06/13/18 07:10 Nasal Cannula 3.0 32 06/13/18 07:09 99 Nasal Cannula 3.0 32 06/13/18 04:58 64 17 98 Facial 30 06/13/18 04:00 67 06/13/18 04:00 30 06/13/18 04:00 Bi-pap 06/13/18 04:00 97.2 67 16 120/70 (87) 99 06/13/18 02:59 65 17 99 Facial 30 06/13/18 00:56 68 17 97 Facial 30 06/13/18 00:00 30 06/13/18 00:00 71 06/13/18 00:00 97.5 81 16 105/67 (80) 98 06/13/18 00:00 Bi-pap 06/12/18 23:41 71 16 98 Facial 30 06/12/18 21:41 75 18 97 Nasal Cannula 2.0 28 06/12/18 21:41 75 18 97 Nasal Cannula 2.0 28 Intake and Output 06/12/18 06/13/18 18:59 06:59 Intake Total 480 ml 120 ml Output Total 1450 ml 2350 ml Balance -970 ml -2230 ml Intake Oral 480 ml 120 ml Output Urine Total 1450 ml 2350 ml # Bowel Movements 2 Height (Feet): 5 Height (Inches): 8.00 Weight (Pounds): 116 General Appearance: alert, agitated Destiny Mares MD Jun 13, 2018 20:12
[2018-06-13] MEDS ORDERED: Solu-MEDROL 40mg Inj IVP SCH (21:00)
--- NOTE | 2018-06-13 22:00 | NUR ---
RESPIRATORY NOTE: PT. PLACED ON BIPAP AT THIS TIME. PT. IS STABLE ON BIPAP WITH CURRENT ORDERS. ALL VS WNL. BIPAP CIRCUIT AND MASK SECURE AND OUT OF THE WAY. SPONGE TAPE IN PLACE. NO S/S OF SKIN BREAKDOWN NOTED. NO RESPIRATORY DISTRESS NOTED AT THIS TIME. WILL CONTINUE TO MONITOR.
[2018-06-14] VITALS: BP 94/59
--- NOTE | 2018-06-14 | NUR ---
NURSE NOTES: Patient remains on BIPAP and is stable with current BIPAP setting orders, tape mask on with no signs of skin break down, patient Vitals remains stable, no fever, no complaints of any pain. IV line remains patent and intact. Will continue to monitor.
[2018-06-14 04:00] VITALS: BP 104/64
--- NOTE | 2018-06-14 04:00 | NUR ---
NURSE NOTES: Patient off BIPAP at this time and remains stable with 3L NC. Patient was cleaned, had normal bowel movement. New condom catheter replaced. Foam dressings placed on body prominences, and SPR mattress place d/t having many bony prominences and protect from possible chance of getting decubitus.
[2018-06-14 05:15] LABS: HEMATOCRIT 41.9 % (42.0-52.0); MEAN CORPUSCULAR VOLUME 97 FL (80-99); PLATELET COUNT 213 K/UL (150-450); RED BLOOD COUNT 4.33 M/UL (4.70-6.10); RED CELL DISTRIBUTION WIDTH 16.5 % (11.6-14.8); WHITE BLOOD COUNT 12.1 K/UL (4.8-10.8)
[2018-06-14 05:35] LABS: ALANINE AMINOTRANSFERASE 186 U/L (12-78); ALBUMIN 2.4 G/DL (3.4-5.0); ALBUMIN/GLOBULIN RATIO 0.5 (1.0-2.7); ALKALINE PHOSPHATASE 101 U/L (46-116); ASPARTATE AMINO TRANSFERASE 43 U/L (15-37); BILIRUBIN,TOTAL 0.6 MG/DL (0.2-1.0); BLOOD UREA NITROGEN 33 mg/dL (7-18); CALCIUM 8.9 MG/DL (8.5-10.1); CHLORIDE 94 MMOL/L (98-107); POTASSIUM 4.8 MMOL/L (3.5-5.1); SODIUM 139 MMOL/L (136-145)
[2018-06-14 05:57] LABS: CARBON DIOXIDE > 45 MMOL/L (21-32)
--- NOTE | 2018-06-14 06:00 | NUR ---
NURSE NOTES: NO ACUTE EVENTS OVERNIGHT, PATIENT MOSTLY SLEPT. NO EPISODES OF RESPIRATORY DISTRESS OBSERVED, WAS ON BIPAP FOR SOME TIME OVER NIGHT AND TOLERATED IT WELL, NOW ON NASAL CANULA AT 3L. SPO2 OVERNIGHT RANGED FROM 92%-98% WITH RESPIRATORY RATE RANGING AROUND 10-20/MIN. BLOOD PRESSURE ALSO REMAINS STABLE, NO FEVER, PATIENT IS CALM AND CONTENT NOW, NAD. WILL CONTINUE TO OBSERVE PATIENTS PROGRESS.
--- NOTE | 2018-06-14 07:20 | NUR ---
NURSE NOTES: Received report from GENNY Charles. Patient seen in bed resting, alert, verbally responsive, able to make needs known. Denies any pain at this time. Oxygen on 3L/min via N/C, no respiratory distress is noted at this time. IV site is to Right forearm and is intact. Condom path present, urine flowing. Bed in lowest position. Call light is within easy reach. Will continue to monitor.
[2018-06-14 08:00] VITALS: BP 108/71
--- NOTE | 2018-06-14 08:29 | Pulmonology Progress Note ---
Assessment/Plan Problems: (1) COPD exacerbation (2) Pulmonary hypertension (3) Chronic hypercapnic respiratory failure (4) Elevated d-dimer (5) Left leg cellulitis (6) Major depressive disorder Assessment/Plan PRN and qHS BiPAP - ENCOURAGE NOCTURNAL COMPLIANCE Will need nocturnal NIPPV after discharge Needs O2 post discharge Check RA sat RTC and PRN DUOnebs Continue Spiriva and Advair D/C SM and observe off steroids Monitor volumes and renal function, AVOID OVERDIURESIS F/U cardiology recs Diet per [employer] with STRICT aspiration precautions (only when stable off BiPAP) DVT Px HEP SQ Should have outpatient PFT, PSG Subjective Allergies: Coded Allergies: No Known Allergies (Unverified , 06/05/18) Subjective Much better today Used BiPAP ON 100% on 3L AFVSS HCO3- > 45 + cough less SOB no FC Objective Last 24 Hour Vital Signs Date Time Temp Pulse Resp B/P (MAP) Pulse Ox O2 Delivery O2 Flow Rate FiO2 06/14/18 08:00 97.8 70 18 108/71 (83) 98 06/14/18 07:46 99 Nasal Cannula 3.0 32 06/14/18 07:46 Nasal Cannula 3.0 32 06/14/18 04:00 Bi-pap 06/14/18 04:00 71 06/14/18 04:00 98.1 69 12 104/64 (77) 99 06/14/18 00:00 98.9 75 18 94/59 (71) 99 06/14/18 00:00 81 06/14/18 00:00 Bi-pap 06/13/18 23:26 69 17 99 Facial 30 06/13/18 22:00 78 18 95 Facial 30 06/13/18 22:00 30 06/13/18 21:58 69 17 98 Nasal Cannula 3.0 32 06/13/18 21:58 69 17 98 Nasal Cannula 3.0 32 06/13/18 21:56 98 Nasal Cannula 3.0 32 06/13/18 21:56 Nasal Cannula 3.0 32 06/13/18 20:00 98.2 73 18 123/71 (88) 99 06/13/18 20:00 Bi-pap 06/13/18 20:00 72 06/13/18 16:53 75 06/13/18 16:00 Bi-pap 06/13/18 16:00 98.0 72 16 120/55 (76) 99 06/13/18 13:01 73 06/13/18 12:00 Bi-pap 06/13/18 12:00 97.2 70 16 130/65 (86) 99 06/13/18 09:37 78 13 99 Nasal Cannula 2.0 28 06/13/18 09:35 78 15 99 Nasal Cannula 2.0 28 06/13/18 09:32 77 14 100 Nasal Cannula 2.0 28 06/13/18 09:30 74 14 100 Nasal Cannula 2.0 28 Intake and Output 06/13/18 06/14/18 19:00 07:00 Intake Total 300 ml 300 ml Output Total 800 ml 1500 ml Balance -500 ml -1200 ml Intake Oral 300 ml 300 ml Output Urine Total 800 ml 1500 ml # Bowel Movements 1 1 General Appearance: no acute distress, cachetic HEENT: normocephalic, atraumatic, anicteric, mucous membranes moist Respiratory/Chest: chest wall non-tender, lungs clear - but distant, normal breath sounds, no respiratory distress, no accessory muscle use Cardiovascular: normal peripheral pulses, normal rate, regular rhythm Abdomen: normal bowel sounds, soft, non tender, no organomegaly, non distended , no mass Extremities: no cyanosis, no clubbing, no edema Laboratory Tests 06/14/18 03:40: White Blood Count 12.1H, Red Blood Count 4.33L, Hemoglobin 13.0L, Hematocrit 41.9L, Mean Corpuscular Volume 97, Mean Corpuscular Hemoglobin 30.0, Mean Corpuscular Hemoglobin Concent 31.0L, Red Cell Distribution Width 16.5H, Platelet Count 213, Mean Platelet Volume 8.0, Neutrophils (%) (Auto) , Lymphocytes (%) (Auto) , Monocytes (%) (Auto) , Eosinophils (%) (Auto) , Basophils (%) (Auto) , Sodium Level 139, Potassium Level 4.8, Chloride Level 94L , Carbon Dioxide Level > 45*H, Blood Urea Nitrogen 33H, Creatinine 1.0, Estimat Glomerular Filtration Rate , Glucose Level 108H, Calcium Level 8.9, Total Bilirubin 0.6, Aspartate Amino Transf (AST/SGOT) 43H, Alanine Aminotransferase ( ALT/SGPT) 186H, Alkaline Phosphatase 101, Total Protein 7.1, Albumin 2.4L, Globulin 4.7, Albumin/Globulin Ratio 0.5L Current Medications Medications (Trade) Dose Ordered Sig/Brittani Route PRN Reason Start Time Stop Time Status Last Admin Dose Admin Citalopram Hydrobromide (celeXA) 20 mg DAILY ORAL 06/10/18 09:00 07/07/18 08:59 06/13/18 08:41 Furosemide (Lasix) 40 mg EVERY 12 HOURS IV 06/09/18 21:00 07/05/18 11:59 06/13/18 20:15 Heparin Sodium (Porcine) (Heparin 5000 units/ml) 5,000 units EVERY 12 HOURS SUBQ 06/09/18 21:00 07/05/18 20:59 06/13/18 20:17 Methylprednisolone Sodium Succinate (Solu-MEDROL) 10 mg Q12HR IVP 06/13/18 21:00 07/12/18 20:59 06/13/18 20:16 Ondansetron HCl (Zofran) 4 mg Q4H PRN IVP Nausea & Vomiting 06/09/18 22:15 07/09/18 22:14 06/09/18 22:37 Pantoprazole (Protonix) 40 mg DAILY ORAL 06/10/18 09:00 07/06/18 08:59 06/13/18 08:41 Salmeterol Xinafoate/ Fluticasone (Advair 250/50 Diskus) 1 puffs BID INH 06/09/18 18:00 07/09/18 17:59 06/13/18 21:58 Tiotropium [place] (Spiriva Inhaler) 1 puff DAILY INH 06/10/18 09:00 07/10/18 08:59 06/13/18 09:35 Jason Pinedo MD Jun 14, 2018 08:29
[2018-06-14] MEDS: Advair 250/50 Inhaler - 14 dose INH SCH ×2 (08:43→17:31)
[2018-06-14] MEDS: Heparin 5000 units/ml inj SUBQ SCH ×2 (09:29→21:21)
[2018-06-14] MEDS: Citalopram Hydrobromide 10mg Tab ORAL SCH (09:30)
--- NOTE | 2018-06-14 10:07 | Cardiac Electrophysiology PN ---
Assessment/Plan Assessment/Plan 1. Severe bilateral lower extremity edema. BNP is 7500. Due to diastolic dysfunction. Better On Lasix 40 mg IV b.i.d. Lower extremity duplex no DVT. Echo EF 55% 2. COPD exacerbation. On Solumedrol 3. Lower extremity cellulitis,on antibiotics. DW RN OK to DC Subjective Subjective Feeling better. Alert awaiting discharge. No cp.No arrhythmias Objective Last 24 Hour Vital Signs Date Time Temp Pulse Resp B/P (MAP) Pulse Ox O2 Delivery O2 Flow Rate FiO2 06/14/18 09:56 79 18 93 Nasal Cannula 1.0 24 06/14/18 09:55 78 17 93 Nasal Cannula 1.0 24 06/14/18 08:44 74 17 97 Nasal Cannula 2.0 28 06/14/18 08:43 75 17 98 Nasal Cannula 2.0 32 06/14/18 08:00 97.8 70 18 108/71 (83) 98 06/14/18 08:00 Nasal Cannula 2.0 06/14/18 08:00 68 06/14/18 07:46 99 Nasal Cannula 3.0 32 06/14/18 07:46 Nasal Cannula 3.0 32 06/14/18 04:00 Bi-pap 06/14/18 04:00 71 06/14/18 04:00 98.1 69 12 104/64 (77) 99 06/14/18 00:00 98.9 75 18 94/59 (71) 99 06/14/18 00:00 81 06/14/18 00:00 Bi-pap 06/13/18 23:26 69 17 99 Facial 30 06/13/18 22:00 78 18 95 Facial 30 06/13/18 22:00 30 06/13/18 21:58 69 17 98 Nasal Cannula 3.0 32 06/13/18 21:58 69 17 98 Nasal Cannula 3.0 32 06/13/18 21:56 98 Nasal Cannula 3.0 32 06/13/18 21:56 Nasal Cannula 3.0 32 06/13/18 20:00 98.2 73 18 123/71 (88) 99 06/13/18 20:00 Bi-pap 06/13/18 20:00 72 06/13/18 16:53 75 06/13/18 16:00 Bi-pap 06/13/18 16:00 98.0 72 16 120/55 (76) 99 12/26/18 13:01 73 06/13/18 12:00 Bi-pap 06/13/18 12:00 97.2 70 16 130/65 (86) 99 Intake and Output 06/13/18 06/14/18 19:00 07:00 Intake Total 300 ml 300 ml Output Total 800 ml 1500 ml Balance -500 ml -1200 ml Intake Oral 300 ml 300 ml Output Urine Total 800 ml 1500 ml # Bowel Movements 1 1 Laboratory Tests Test 06/14/18 03:40 White Blood Count 12.1 K/UL (4.8-10.8) H Red Blood Count 4.33 M/UL (4.70-6.10) L Hemoglobin 13.0 G/DL (14.2-18.0) L Hematocrit 41.9 % (42.0-52.0) L Mean Corpuscular Volume 97 FL (80-99) Mean Corpuscular Hemoglobin 30.0 PG (27.0-31.0) Mean Corpuscular Hemoglobin Concent 31.0 G/DL (32.0-36.0) L Red Cell Distribution Width 16.5 % (11.6-14.8) H Platelet Count 213 K/UL (150-450) Mean Platelet Volume 8.0 FL (6.5-10.1) Neutrophils (%) (Auto) % (45.0-75.0) Lymphocytes (%) (Auto) % (20.0-45.0) Monocytes (%) (Auto) % (1.0-10.0) Eosinophils (%) (Auto) % (0.0-3.0) Basophils (%) (Auto) % (0.0-2.0) Sodium Level 139 MMOL/L (136-145) Potassium Level 4.8 MMOL/L (3.5-5.1) Chloride Level 94 MMOL/L (98-107) L Carbon Dioxide Level > 45 MMOL/L (21-32) *H Blood Urea Nitrogen 33 mg/dL (7-18) H Creatinine 1.0 MG/DL (0.55-1.30) Estimat Glomerular Filtration Rate mL/min (>60) Glucose Level 108 MG/DL (74-106) H Calcium Level 8.9 MG/DL (8.5-10.1) Total Bilirubin 0.6 MG/DL (0.2-1.0) Aspartate Amino Transf (AST/SGOT) 43 U/L (15-37) H Alanine Aminotransferase (ALT/SGPT) 186 U/L (12-78) H Alkaline Phosphatase 101 U/L (46-116) Total Protein 7.1 G/DL (6.4-8.2) Albumin 2.4 G/DL (3.4-5.0) L Globulin 4.7 g/dL Albumin/Globulin Ratio 0.5 (1.0-2.7) L Objective HEAD AND NECK: Mild JVD. LUNGS: Decreased breath sounds. CARDIOVASCULAR: Regular S1 and S2 with no gallop. ABDOMEN: Soft. EXTREMITIES: 1+ pitting edema and cellulitis. Lv Campbell MD Jun 14, 2018 10:07
--- NOTE | 2018-06-14 11:15 | GI Progress Note ---
Assessment/Plan Status: unchanged Status Narrative Discussed with Dr. Aleman Assessment/Plan Assessment - CHF - COPD / BIPAP - Edema, LE cellulitis - Anemia - hepatitis panel negative - abdominal US reviewed -Transaminitis Recommendations Careful po trial off mask follow labs and exam abx per ID trend LFTs fu labs The patient was seen and examined at bedside and all new and available data was reviewed in the patients chart. I agree with the above findings, impression and plan. (Patient seen earlier today. Signature stamp does not reflect patient encounter time.). - Jaylen Aleman MD Subjective Subjective limited Objective Last 24 Hour Vital Signs Date Time Temp Pulse Resp B/P (MAP) Pulse Ox O2 Delivery O2 Flow Rate FiO2 06/14/18 09:56 79 18 93 Nasal Cannula 1.0 24 06/14/18 09:55 78 17 93 Nasal Cannula 1.0 24 06/14/18 08:44 74 17 97 Nasal Cannula 2.0 28 06/14/18 08:43 75 17 98 Nasal Cannula 2.0 32 06/14/18 08:00 97.8 70 18 108/71 (83) 98 06/14/18 08:00 Nasal Cannula 2.0 06/14/18 08:00 68 06/14/18 07:46 99 Nasal Cannula 3.0 32 06/14/18 07:46 Nasal Cannula 3.0 32 06/14/18 04:00 Bi-pap 06/14/18 04:00 71 06/14/18 04:00 98.1 69 12 104/64 (77) 99 06/14/18 00:00 98.9 75 18 94/59 (71) 99 06/14/18 00:00 81 06/14/18 00:00 Bi-pap 06/13/18 23:26 69 17 99 Facial 30 06/13/18 22:00 78 18 95 Facial 30 06/13/18 22:00 30 06/13/18 21:58 69 17 98 Nasal Cannula 3.0 32 06/13/18 21:58 69 17 98 Nasal Cannula 3.0 32 06/13/18 21:56 98 Nasal Cannula 3.0 32 06/13/18 21:56 Nasal Cannula 3.0 32 06/13/18 20:00 98.2 73 18 123/71 (88) 99 06/13/18 20:00 Bi-pap 06/13/18 20:00 72 06/13/18 16:53 75 06/13/18 16:00 Bi-pap 06/13/18 16:00 98.0 72 16 120/55 (76) 99 06/13/18 13:01 73 06/13/18 12:00 Bi-pap 06/13/18 12:00 97.2 70 16 130/65 (86) 99 Intake and Output 06/13/18 06/14/18 19:00 07:00 Intake Total 300 ml 300 ml Output Total 800 ml 1500 ml Balance -500 ml -1200 ml Intake Oral 300 ml 300 ml Output Urine Total 800 ml 1500 ml # Bowel Movements 1 1 Laboratory Tests Test 06/14/18 03:40 White Blood Count 12.1 K/UL (4.8-10.8) H Red Blood Count 4.33 M/UL (4.70-6.10) L Hemoglobin 13.0 G/DL (14.2-18.0) L Hematocrit 41.9 % (42.0-52.0) L Mean Corpuscular Volume 97 FL (80-99) Mean Corpuscular Hemoglobin 30.0 PG (27.0-31.0) Mean Corpuscular Hemoglobin Concent 31.0 G/DL (32.0-36.0) L Red Cell Distribution Width 16.5 % (11.6-14.8) H Platelet Count 213 K/UL (150-450) Mean Platelet Volume 8.0 FL (6.5-10.1) Neutrophils (%) (Auto) % (45.0-75.0) Lymphocytes (%) (Auto) % (20.0-45.0) Monocytes (%) (Auto) % (1.0-10.0) Eosinophils (%) (Auto) % (0.0-3.0) Basophils (%) (Auto) % (0.0-2.0) Sodium Level 139 MMOL/L (136-145) Potassium Level 4.8 MMOL/L (3.5-5.1) Chloride Level 94 MMOL/L (98-107) L Carbon Dioxide Level > 45 MMOL/L (21-32) *H Blood Urea Nitrogen 33 mg/dL (7-18) H Creatinine 1.0 MG/DL (0.55-1.30) Estimat Glomerular Filtration Rate mL/min (>60) Glucose Level 108 MG/DL (74-106) H Calcium Level 8.9 MG/DL (8.5-10.1) Total Bilirubin 0.6 MG/DL (0.2-1.0) Aspartate Amino Transf (AST/SGOT) 43 U/L (15-37) H Alanine Aminotransferase (ALT/SGPT) 186 U/L (12-78) H Alkaline Phosphatase 101 U/L (46-116) Total Protein 7.1 G/DL (6.4-8.2) Albumin 2.4 G/DL (3.4-5.0) L Globulin 4.7 g/dL Albumin/Globulin Ratio 0.5 (1.0-2.7) L Height (Feet): 5 Height (Inches): 8.00 Weight (Pounds): 116 General Appearance: no apparent distress Cardiovascular: normal rate Abdominal Exam: normal bowel sounds, non tender, soft Extremities: non-tender Jasper Brar NP Jun 14, 2018 11:15
--- NOTE | 2018-06-14 11:18 | NUR ---
RD ASSESSMENT & RECOMMENDATIONS SEE CARE ACTIVITY FOR COMPLETE ASSESSMENT DAILY ESTIMATED NEEDS: Needs based on Pulmonary, cachexia/ 60kg 30-35 kcals/kg 3858-4082 total kcals 1-1.5 g protein/kg 60-90 g total protein 25-30 mL/kg 6123-3004 total fluid mLs NUTRITION DIAGNOSIS: * Altered nutrition related lab values R/T respiratory status as evidenced by critically elev PCO2, CO2, and HCO3, pt on BIPAP prn, diet advanced to finely chopped. (UPDATED) CURRENT DIET: Soft finely chopped PO DIET RECOMMENDATIONS: Initiate diet per MD -> LOW NA/ texture as tolerated ADDITIONAL RECOMMENDATIONS: * CALIBRATED bedscale wt for accurate CBW -> Conflicting EMR wt vs bedscale wt (116# vs 133#) * MVI x 1 and Diego 1pkt BID for skin integrity * Monitor NPO status- on BIPAP at this time-> diet advanced * Monitor lytes daily, replete as needed- on lasix * Add ENSURE 1 bottle daily + snacks BID * SSI while on solumedrol / now held
[2018-06-14 11:49] VITALS: BP 108/71
--- NOTE | 2018-06-14 12:05 | Infectious Diseases Prog Note ---
Assessment/Plan Assessment/Plan A; COPD exacerbation Legs cellulitis more in left treated Respiratory failure with hypercapnia Elevated transaminase Cachexia Renal failure improving P: Observe off antibiotic Subjective ROS Limited/Unobtainable: Yes Constitutional: Reports: no symptoms Respiratory: Reports: no symptoms Allergies: Coded Allergies: No Known Allergies (Unverified , 06/05/18) Objective Vital Signs Last 24 Hour Vital Signs Date Time Temp Pulse Resp B/P (MAP) Pulse Ox O2 Delivery O2 Flow Rate FiO2 06/14/18 11:49 98.0 71 16 108/71 (83) 94 06/14/18 09:56 79 18 93 Nasal Cannula 1.0 24 06/14/18 09:55 78 17 93 Nasal Cannula 1.0 24 06/14/18 08:44 74 17 97 Nasal Cannula 2.0 28 06/14/18 08:43 75 17 98 Nasal Cannula 2.0 32 06/14/18 08:00 97.8 70 18 108/71 (83) 98 06/14/18 08:00 Nasal Cannula 2.0 06/14/18 08:00 68 06/14/18 07:46 99 Nasal Cannula 3.0 32 06/14/18 07:46 Nasal Cannula 3.0 32 06/14/18 04:00 Bi-pap 06/14/18 04:00 71 06/14/18 04:00 98.1 69 12 104/64 (77) 99 06/14/18 00:00 98.9 75 18 94/59 (71) 99 06/14/18 00:00 81 06/14/18 00:00 Bi-pap 06/13/18 23:26 69 17 99 Facial 30 06/13/18 22:00 78 18 95 Facial 30 06/13/18 22:00 30 06/13/18 21:58 69 17 98 Nasal Cannula 3.0 32 06/13/18 21:58 69 17 98 Nasal Cannula 3.0 32 06/13/18 21:56 98 Nasal Cannula 3.0 32 06/13/18 21:56 Nasal Cannula 3.0 32 06/13/18 20:00 98.2 73 18 123/71 (88) 99 06/13/18 20:00 Bi-pap 06/13/18 20:00 72 06/13/18 16:53 75 06/13/18 16:00 Bi-pap 06/13/18 16:00 98.0 72 16 120/55 (76) 99 06/13/18 13:01 73 Height (Feet): 5 Height (Inches): 8.00 Weight (Pounds): 116 General Appearance: no acute distress, cachetic HEENT: mucous membranes moist Respiratory/Chest: lungs clear Cardiovascular: normal rate Abdomen: soft, non tender Extremities: no edema Neurologic/Psychiatric: alert, responsive Musculoskeletal: atrophy Laboratory Tests Test 06/14/18 03:40 White Blood Count 12.1 K/UL (4.8-10.8) H Red Blood Count 4.33 M/UL (4.70-6.10) L Hemoglobin 13.0 G/DL (14.2-18.0) L Hematocrit 41.9 % (42.0-52.0) L Mean Corpuscular Volume 97 FL (80-99) Mean Corpuscular Hemoglobin 30.0 PG (27.0-31.0) Mean Corpuscular Hemoglobin Concent 31.0 G/DL (32.0-36.0) L Red Cell Distribution Width 16.5 % (11.6-14.8) H Platelet Count 213 K/UL (150-450) Mean Platelet Volume 8.0 FL (6.5-10.1) Neutrophils (%) (Auto) % (45.0-75.0) Lymphocytes (%) (Auto) % (20.0-45.0) Monocytes (%) (Auto) % (1.0-10.0) Eosinophils (%) (Auto) % (0.0-3.0) Basophils (%) (Auto) % (0.0-2.0) Sodium Level 139 MMOL/L (136-145) Potassium Level 4.8 MMOL/L (3.5-5.1) Chloride Level 94 MMOL/L (98-107) L Carbon Dioxide Level > 45 MMOL/L (21-32) *H Blood Urea Nitrogen 33 mg/dL (7-18) H Creatinine 1.0 MG/DL (0.55-1.30) Estimat Glomerular Filtration Rate mL/min (>60) Glucose Level 108 MG/DL (74-106) H Calcium Level 8.9 MG/DL (8.5-10.1) Total Bilirubin 0.6 MG/DL (0.2-1.0) Aspartate Amino Transf (AST/SGOT) 43 U/L (15-37) H Alanine Aminotransferase (ALT/SGPT) 186 U/L (12-78) H Alkaline Phosphatase 101 U/L (46-116) Total Protein 7.1 G/DL (6.4-8.2) Albumin 2.4 G/DL (3.4-5.0) L Globulin 4.7 g/dL Albumin/Globulin Ratio 0.5 (1.0-2.7) L Current Medications Medications (Trade) Dose Ordered Sig/Brittani Route PRN Reason Start Time Stop Time Status Last Admin Dose Admin Citalopram Hydrobromide (celeXA) 20 mg DAILY ORAL 06/10/18 09:00 07/07/18 08:59 06/14/18 09:30 Furosemide (Lasix) 40 mg EVERY 12 HOURS IV 06/09/18 21:00 07/05/18 11:59 06/14/18 09:28 Heparin Sodium (Porcine) (Heparin 5000 units/ml) 5,000 units EVERY 12 HOURS SUBQ 06/09/18 21:00 07/05/18 20:59 06/14/18 09:29 Ondansetron HCl (Zofran) 4 mg Q4H PRN IVP Nausea & Vomiting 06/09/18 22:15 07/09/18 22:14 06/09/18 22:37 Pantoprazole (Protonix) 40 mg DAILY ORAL 06/10/18 09:00 07/06/18 08:59 06/14/18 09:29 Salmeterol Xinafoate/ Fluticasone (Advair 250/50 Diskus) 1 puffs BID INH 06/09/18 18:00 07/09/18 17:59 06/14/18 08:43 Tiotropium [place] (Spiriva Inhaler) 1 puff DAILY INH 06/10/18 09:00 07/10/18 08:59 06/14/18 09:54 William Avalos MD Jun 14, 2018 12:05
--- NOTE | 2018-06-14 14:01 | NUR ---
CASE MANAGEMENT: REVIEW SI: COPD EXACERBATION T 98.0 HR 71 RR 16 BP 108/71 SAT 93% NC/1.0 WBC 12.1 H/H 13.0/41.9 IS: LASIX IV Q12HR PROTONIX PO QD ADVAIR 250/50 INH BID STEP DOWN UNIT STATUS DCP: PATIENT IS FROM HOME
--- NOTE | 2018-06-14 14:24 | NUR ---
CASE MANAGEMENT:DCPNOTE DME ORDER NOTED FOR TRADUZIONE NON-INVASIVE VENTILATOR MACHINE FOR HOME PATIENT REFERRED TO [facility] [phone] CM WILL FOLLOW UP
[2018-06-14 15:43] VITALS: BP 102/67
[2018-06-14] MEDS ORDERED: NS 275ml ONE (16:11)
--- NOTE | 2018-06-14 19:02 | NUR ---
HAND-OFF: Report given to GENNY Charles. Stable condition.
--- NOTE | 2018-06-14 19:52 | General Progress Note ---
Assessment/Plan Assessment/Plan COVERING FOR DR. CHIN ASSESSMENT AND RECOMMENDATIONS # Thrombocytopenia - potential causes multifactorial, evaluate liver and viral etiologies to begin, also could be related to underlying medications patient has received. --> Monitor and trend Plt count for improvement/stability --> Currently on Heparin --> Hep panel is negative, HIV neg --> US abd shows slightly increased renal echogenicity, consistent with medical renal disease. Negative for hydronephrosis --> abx and other meds have been reviewed # Anemia of chronic disease due to underlying chronic medical issues, multifactorial. --> Current hgb >10, no w/u required at this time --> Monitor for stability # Bilateral lower extremity edema. BNP is also 7500. --> on Lasix 40 mg IV b.i.d. as per pulm --> duplex lower ext negative # COPD exacerbation. Pulm is following, appreciate recs. --> currently on BiPAP prn, on steriods # Lower extremity cellulitis. ID is following, appreciate recs. --> Completed antibiotics. --> cards following as well Subjective Constitutional: Denies: no symptoms, chills, diaphoresis, fever, malaise, weakness, other HEENT: Denies: no symptoms, eye pain, blurred vision, tearing, double vision, ear pain, ear discharge, nose pain, nose congestion, throat pain, throat swelling, mouth pain, mouth swelling, other Cardiovascular: Denies: no symptoms, chest pain, edema, irregular heart rate, lightheadedness, palpitations, syncope, other Respiratory: Denies: no symptoms, cough, orthopnea, shortness of breath, SOB with excertion, SOB at rest, sputum, stridor, wheezing, other Gastrointestinal/Abdominal: Denies: no symptoms, abdomen distended, abdominal pain, black stools, tarry stools, blood in stool, constipated, diarrhea, difficulty swallowing, nausea, poor appetite, poor fluid intake, rectal bleeding , vomiting, other Genitourinary: Denies: no symptoms, burning, discharge, frequency, flank pain, hematuria, incontinence, pain, urgency, other Neurologic/Psychiatric: Denies: no symptoms, anxiety, depressed, emotional problems, headache, numbness, paresthesia, pre-existing deficit, seizure, tingling, tremors, weakness, other Endocrine: Denies: no symptoms, excessive sweating, flushing, intolerance to cold, intolerance to heat, increased hunger, increased thirst, increased urine, unexplained weight gain, unexplained weight loss, other Hematologic/Lymphatic: Denies: no symptoms, anemia, easy bleeding, easy bruising, other Allergies: Coded Allergies: No Known Allergies (Unverified , 06/05/18) Subjective 06/11: Seen by RT for low O2 sat overnight, remains on BIPAP. VS remain stable. 06/12: getting bipap prn especially at night and during day on simple mask, monitoring fluid status, labs currently stable 06/13: Pt now on NC. No acute events. Observe off of abx per ID. VS stable. 06/14: receiving steriods, breathing condition has improved, seen by cards as well, potential dc soon Objective Last 24 Hour Vital Signs Date Time Temp Pulse Resp B/P (MAP) Pulse Ox O2 Delivery O2 Flow Rate FiO2 06/14/18 16:00 72 06/14/18 16:00 Nasal Cannula 1.0 06/14/18 15:43 98.1 72 21 102/67 (79) 94 06/14/18 12:00 Nasal Cannula 1.0 06/14/18 11:59 73 06/14/18 11:49 98.0 71 16 108/71 (83) 94 06/14/18 09:56 79 18 93 Nasal Cannula 1.0 24 06/14/18 09:55 78 17 93 Nasal Cannula 1.0 24 06/14/18 08:44 74 17 97 Nasal Cannula 2.0 28 06/14/18 08:43 75 17 98 Nasal Cannula 2.0 32 06/14/18 08:00 97.8 70 18 108/71 (83) 98 06/14/18 08:00 Nasal Cannula 2.0 06/14/18 08:00 68 06/14/18 07:46 99 Nasal Cannula 3.0 32 06/14/18 07:46 Nasal Cannula 3.0 32 06/14/18 04:00 Bi-pap 06/14/18 04:00 71 06/14/18 04:00 98.1 69 12 104/64 (77) 99 06/14/18 00:00 98.9 75 18 94/59 (71) 99 06/14/18 00:00 81 06/14/18 00:00 Bi-pap 06/13/18 23:26 69 17 99 Facial 30 06/13/18 22:00 78 18 95 Facial 30 06/13/18 22:00 30 06/13/18 21:58 69 17 98 Nasal Cannula 3.0 32 06/13/18 21:58 69 17 98 Nasal Cannula 3.0 32 06/13/18 21:56 98 Nasal Cannula 3.0 32 06/13/18 21:56 Nasal Cannula 3.0 32 06/13/18 20:00 98.2 73 18 123/71 (88) 99 06/13/18 20:00 Bi-pap 06/13/18 20:00 72 Intake and Output 06/13/18 06/14/18 18:59 06:59 Intake Total 300 ml 300 ml Output Total 800 ml 1500 ml Balance -500 ml -1200 ml Intake Oral 300 ml 300 ml Output Urine Total 800 ml 1500 ml # Bowel Movements 1 1 Laboratory Tests 06/14/18 03:40: White Blood Count 12.1H, Red Blood Count 4.33L, Hemoglobin 13.0L, Hematocrit 41.9L, Mean Corpuscular Volume 97, Mean Corpuscular Hemoglobin 30.0, Mean Corpuscular Hemoglobin Concent 31.0L, Red Cell Distribution Width 16.5H, Platelet Count 213, Mean Platelet Volume 8.0, Neutrophils (%) (Auto) , Lymphocytes (%) (Auto) , Monocytes (%) (Auto) , Eosinophils (%) (Auto) , Basophils (%) (Auto) , Sodium Level 139, Potassium Level 4.8, Chloride Level 94L , Carbon Dioxide Level > 45*H, Blood Urea Nitrogen 33H, Creatinine 1.0, Estimat Glomerular Filtration Rate , Glucose Level 108H, Calcium Level 8.9, Total Bilirubin 0.6, Aspartate Amino Transf (AST/SGOT) 43H, Alanine Aminotransferase ( ALT/SGPT) 186H, Alkaline Phosphatase 101, Total Protein 7.1, Albumin 2.4L, Globulin 4.7, Albumin/Globulin Ratio 0.5L 06/14/18 16:27: Arterial Blood pH 7.472H, Arterial Blood Partial Pressure CO2 73.3*H, Arterial Blood Partial Pressure O2 59.0L, Arterial Blood HCO3 52.4*H, Arterial Blood Oxygen Saturation 90.8L, Arterial Blood Base Excess 23.9*H, Delon Test Positive Height (Feet): 5 Height (Inches): 8.00 Weight (Pounds): 116 Objective PHYSICAL EXAMINATION: VITAL SIGNS: Have been reviewed HEAD AND NECK: Show positive JVD. LUNGS: Decreased breath sounds. sob is improved CARDIOVASCULAR: Shows regular S1 and S2 with no gallop. ABDOMEN: Soft. EXTREMITIES: Bilateral 2+ pitting edema and cellulitis. Conrado Morel MD Jun 14, 2018 19:52
[2018-06-14 20:00] VITALS: BP 105/60
--- NOTE | 2018-06-14 20:00 | NUR ---
NURSE NOTES: Patient seems to be able to self repositioned, no bowel movement yet. Oral care provided. NC at 1L spo2 at 92%. NAD, Vitals stable, will continue to monitor.
--- NOTE | 2018-06-14 22:43 | General Progress Note ---
Assessment/Plan Assessment/Plan Assessment - CHF - COPD / BIPAP - Edema, LE cellulitis - Anemia -Transaminitis - negative U/S and hepatitis serologies Recommendations push PO follow labs and exam abx per ID trend LFTs fu labs Subjective Allergies: Coded Allergies: No Known Allergies (Unverified , 06/05/18) Subjective above noted d/w RN was able to take po breakfast while temporarily off of BIPAP no abdominal complaints Objective Last 24 Hour Vital Signs Date Time Temp Pulse Resp B/P (MAP) Pulse Ox O2 Delivery O2 Flow Rate FiO2 06/14/18 22:00 30 06/14/18 20:00 97.9 78 16 105/60 (75) 92 06/14/18 20:00 1.0 06/14/18 20:00 75 06/14/18 20:00 Nasal Cannula 1.0 06/14/18 16:00 72 06/14/18 16:00 Nasal Cannula 1.0 06/14/18 15:43 98.1 72 21 102/67 (79) 94 06/14/18 12:00 Nasal Cannula 1.0 06/14/18 11:59 73 06/14/18 11:49 98.0 71 16 108/71 (83) 94 06/14/18 09:56 79 18 93 Nasal Cannula 1.0 24 06/14/18 09:55 78 17 93 Nasal Cannula 1.0 24 06/14/18 08:44 74 17 97 Nasal Cannula 2.0 28 06/14/18 08:43 75 17 98 Nasal Cannula 2.0 32 06/14/18 08:00 97.8 70 18 108/71 (83) 98 06/14/18 08:00 Nasal Cannula 2.0 06/14/18 08:00 68 06/14/18 07:46 99 Nasal Cannula 3.0 32 06/14/18 07:46 Nasal Cannula 3.0 32 06/14/18 04:00 Bi-pap 06/14/18 04:00 71 06/14/18 04:00 98.1 69 12 104/64 (77) 99 06/14/18 00:00 98.9 75 18 94/59 (71) 99 06/14/18 00:00 81 06/14/18 00:00 Bi-pap 06/13/18 23:26 69 17 99 Facial 30 Intake and Output 06/13/18 06/14/18 18:59 06:59 Intake Total 300 ml 300 ml Output Total 800 ml 1500 ml Balance -500 ml -1200 ml Intake Oral 300 ml 300 ml Output Urine Total 800 ml 1500 ml # Bowel Movements 1 1 Laboratory Tests 06/14/18 03:40: White Blood Count 12.1H, Red Blood Count 4.33L, Hemoglobin 13.0L, Hematocrit 41.9L, Mean Corpuscular Volume 97, Mean Corpuscular Hemoglobin 30.0, Mean Corpuscular Hemoglobin Concent 31.0L, Red Cell Distribution Width 16.5H, Platelet Count 213, Mean Platelet Volume 8.0, Neutrophils (%) (Auto) , Lymphocytes (%) (Auto) , Monocytes (%) (Auto) , Eosinophils (%) (Auto) , Basophils (%) (Auto) , Sodium Level 139, Potassium Level 4.8, Chloride Level 94L , Carbon Dioxide Level > 45*H, Blood Urea Nitrogen 33H, Creatinine 1.0, Estimat Glomerular Filtration Rate , Glucose Level 108H, Calcium Level 8.9, Total Bilirubin 0.6, Aspartate Amino Transf (AST/SGOT) 43H, Alanine Aminotransferase ( ALT/SGPT) 186H, Alkaline Phosphatase 101, Total Protein 7.1, Albumin 2.4L, Globulin 4.7, Albumin/Globulin Ratio 0.5L 06/14/18 16:27: Arterial Blood pH 7.472H, Arterial Blood Partial Pressure CO2 73.3*H, Arterial Blood Partial Pressure O2 59.0L, Arterial Blood HCO3 52.4*H, Arterial Blood Oxygen Saturation 90.8L, Arterial Blood Base Excess 23.9*H, Delon Test Positive Height (Feet): 5 Height (Inches): 8.00 Weight (Pounds): 116 Objective Thin AA man NCAT temporal wasting Supple CTA RR abd soft ND NT (+) cellulitis Carlos Daly MD Jun 14, 2018 22:43
--- NOTE | 2018-06-14 23:00 | NUR ---
PT. PLACED ON BIPAP AT THIS TIME. BIPAP CIRCUIT AND MASK SECURE AND OUT OF THE WAY. SPONGE TAPE PLACED FOR PROTECTION. NO S/S OF SKIN BREAKDOWN NOTED. NO S/S OF RESPIRATORY DISTRESS NOTED AT THIS TIME. WILL CONTINUE TO MONITOR.
[2018-06-15] VITALS: BP 109/69
--- NOTE | 2018-06-15 | NUR ---
NURSE NOTES: Self repositions, remains on BIPAP, NAD
--- NOTE | 2018-06-15 02:00 | NUR ---
NURSE NOTES: Self repositions, remains on BIPAP, no new changes, Vitals remains stable.
[2018-06-15 04:00] VITALS: BP 105/55
--- NOTE | 2018-06-15 04:00 | NUR ---
NURSE NOTES: Patient cleaned, new dressings applied, Patient off the BIPAP and on NC now, NAD. Vitals remains stable.
[2018-06-15 05:23] LABS: HEMATOCRIT 44.8 % (42.0-52.0); HEMOGLOBIN 13.8 G/DL (14.2-18.0); MEAN CORPUSCULAR VOLUME 96 FL (80-99); PLATELET COUNT 220 K/UL (150-450); RED BLOOD COUNT 4.69 M/UL (4.70-6.10); RED CELL DISTRIBUTION WIDTH 16.2 % (11.6-14.8); WHITE BLOOD COUNT 11.9 K/UL (4.8-10.8)
[2018-06-15 05:59] LABS: ALANINE AMINOTRANSFERASE 209 U/L (12-78); ALBUMIN 2.4 G/DL (3.4-5.0); ALBUMIN/GLOBULIN RATIO 0.5 (1.0-2.7); ALKALINE PHOSPHATASE 99 U/L (46-116); ASPARTATE AMINO TRANSFERASE 87 U/L (15-37); BLOOD UREA NITROGEN 35 mg/dL (7-18); CALCIUM 9.3 MG/DL (8.5-10.1); CHLORIDE 92 MMOL/L (98-107); CREATININE 0.9 MG/DL (0.55-1.30); SODIUM 138 MMOL/L (136-145)
--- NOTE | 2018-06-15 06:00 | NUR ---
NURSE NOTES: NO ACUTE EVENTS OVERNIGHT. PATIENT WAS ON BIPAP FOR MOST OF THE NIGHT THEN SWITCH TO NASAL CANULA 1L. PATIENT SATURATION HAS RANGED FROM 88%-100% AND RR HAS BEEN FROM 12-20. ALL OTHER VITALS REMAINS STABLE, HR SINUS RHYTHM, NO FEVER OR DISTRESS OBSERVED. PATIENTS DRESSINGS WERE CHANGED ACCORDING TO MD ORDERS. OTHERWISE NO NEW CHANGES, WILL CONTINUE TO MONITOR PATIENTS PROGRESS.
[2018-06-15 06:25] LABS: CARBON DIOXIDE > 45 MMOL/L (21-32); POTASSIUM 5.8 MMOL/L (3.5-5.1)
--- NOTE | 2018-06-15 07:15 | NUR ---
NURSE NOTES: Patient received from GENNY Charles. Patient in bed, awake, and verbally responsive. On 1L via NC, no SOB. Respirations are even and unlaboured. gambling monitor in placed. Condom catheter in placed and draining well. IV site is asymptomatic. Bed in lowest position with side rails up. Will continue to follow plan of care.
[2018-06-15 08:00] VITALS: BP 108/63
[2018-06-15] MEDS: Citalopram Hydrobromide 10mg Tab ORAL SCH (08:21)
[2018-06-15] MEDS: Heparin 5000 units/ml inj SUBQ SCH ×2 (08:22→20:54)
[2018-06-15] MEDS: Advair 250/50 Inhaler - 14 dose INH SCH ×2 (08:52→19:53)
[2018-06-15] MEDS ORDERED: Sodium Polystyrene Sulfonate 15gm Powder ORAL SCH (10:15)
--- NOTE | 2018-06-15 11:55 | NUR ---
PT EVALUATION NOTE: Patient seen for initial evaluation, see complete evaluation for details. Patient will benefit from skilled inpatient PT intervention to address strength, balance, activity tolerance and functional mobility. Recommend Home PT vs SNF for short term rehab at discharge. DME needs to be determined based on progress and discharge disposition. Addendum: 06/15/18 at 1156 by ZACKARY VANCE PT Amended: Links added.
[2018-06-15 12:00] VITALS: BP 106/59
--- NOTE | 2018-06-15 13:50 | Infectious Diseases Prog Note ---
Assessment/Plan Assessment/Plan A; COPD exacerbation Legs cellulitis more in left treated Respiratory failure with hypercapnia Elevated transaminase Cachexia Renal failure improving P: Observe off antibiotic Subjective ROS Limited/Unobtainable: No Constitutional: Reports: no symptoms Respiratory: Reports: no symptoms Cardiovascular: Reports: no symptoms Gastrointestinal/Abdominal: Reports: no symptoms Genitourinary: Reports: no symptoms Allergies: Coded Allergies: No Known Allergies (Unverified , 06/05/18) Objective Vital Signs Last 24 Hour Vital Signs Date Time Temp Pulse Resp B/P (MAP) Pulse Ox O2 Delivery O2 Flow Rate FiO2 06/15/18 12:03 79 06/15/18 12:00 Nasal Cannula 1.0 06/15/18 12:00 97.9 81 18 106/59 (75) 98 06/15/18 08:54 Nasal Cannula 2.0 06/15/18 08:54 Nasal Cannula 2.0 06/15/18 08:53 73 18 98 Nasal Cannula 2.0 32 06/15/18 08:53 74 18 94 Nasal Cannula 2.0 06/15/18 08:00 97.7 71 19 108/63 (78) 97 06/15/18 08:00 Nasal Cannula 1.0 06/15/18 08:00 68 06/15/18 06:32 92 Nasal Cannula 1.0 06/15/18 06:32 Nasal Cannula 1.0 24 06/15/18 06:32 74 15 Nasal Cannula 1.0 24 06/15/18 04:00 98.0 72 12 105/55 (72) 93 06/15/18 04:00 Nasal Cannula 1.0 06/15/18 04:00 70 06/15/18 02:51 72 17 93 Facial 30 06/15/18 00:41 73 17 95 Facial 30 06/15/18 00:00 30 06/15/18 00:00 99.1 75 16 109/69 (82) 94 06/15/18 00:00 75 06/15/18 00:00 Nasal Cannula 1.0 06/14/18 23:00 76 17 99 Facial 30 06/14/18 22:00 30 06/14/18 21:55 97 Nasal Cannula 1.0 24 06/14/18 21:55 Nasal Cannula 1.0 24 06/14/18 21:55 Nasal Cannula 1.0 24 06/14/18 21:55 Nasal Cannula 1.0 24 06/14/18 20:00 97.9 78 16 105/60 (75) 92 06/14/18 20:00 1.0 06/14/18 20:00 75 06/14/18 20:00 Nasal Cannula 1.0 06/14/18 16:00 72 06/14/18 16:00 Nasal Cannula 1.0 06/14/18 15:43 98.1 72 21 102/67 (79) 94 Height (Feet): 5 Height (Inches): 8.00 Weight (Pounds): 112 General Appearance: cachetic HEENT: mucous membranes moist Respiratory/Chest: lungs clear Cardiovascular: normal rate Abdomen: soft, non tender Extremities: no edema Neurologic/Psychiatric: alert, oriented x 3, responsive Musculoskeletal: atrophy Laboratory Tests Test 06/14/18 16:27 06/15/18 04:25 Arterial Blood pH 7.472 (7.350-7.450) Arterial Blood Partial Pressure CO2 73.3 mmHg (35.0-45.0) *H Arterial Blood Partial Pressure O2 59.0 mmHg (75.0-100.0) L Arterial Blood HCO3 52.4 mmol/L (22.0-26.0) *H Arterial Blood Oxygen Saturation 90.8 % (95-100) L Arterial Blood Base Excess 23.9 (-2-2) *H Delon Test Positive White Blood Count 11.9 K/UL (4.8-10.8) H Red Blood Count 4.69 M/UL (4.70-6.10) L Hemoglobin 13.8 G/DL (14.2-18.0) L Hematocrit 44.8 % (42.0-52.0) Mean Corpuscular Volume 96 FL (80-99) Mean Corpuscular Hemoglobin 29.5 PG (27.0-31.0) Mean Corpuscular Hemoglobin Concent 30.8 G/DL (32.0-36.0) L Red Cell Distribution Width 16.2 % (11.6-14.8) H Platelet Count 220 K/UL (150-450) Mean Platelet Volume 8.0 FL (6.5-10.1) Neutrophils (%) (Auto) % (45.0-75.0) Lymphocytes (%) (Auto) % (20.0-45.0) Monocytes (%) (Auto) % (1.0-10.0) Eosinophils (%) (Auto) % (0.0-3.0) Basophils (%) (Auto) % (0.0-2.0) Sodium Level 138 MMOL/L (136-145) Potassium Level 5.8 MMOL/L (3.5-5.1) H Chloride Level 92 MMOL/L (98-107) L Carbon Dioxide Level > 45 MMOL/L (21-32) *H Blood Urea Nitrogen 35 mg/dL (7-18) H Creatinine 0.9 MG/DL (0.55-1.30) Estimat Glomerular Filtration Rate mL/min (>60) Glucose Level 82 MG/DL (74-106) Calcium Level 9.3 MG/DL (8.5-10.1) Total Bilirubin 1.0 MG/DL (0.2-1.0) Aspartate Amino Transf (AST/SGOT) 87 U/L (15-37) H Alanine Aminotransferase (ALT/SGPT) 209 U/L (12-78) H Alkaline Phosphatase 99 U/L (46-116) Total Protein 7.1 G/DL (6.4-8.2) Albumin 2.4 G/DL (3.4-5.0) L Globulin 4.7 g/dL Albumin/Globulin Ratio 0.5 (1.0-2.7) L Herpes Simplex Virus I IgM Ab (IFA) Pending Herpes Simplex Virus II IgM Ab (IFA Pending Monoscreen Pending Current Medications Medications (Trade) Dose Ordered Sig/Brittani Route PRN Reason Start Time Stop Time Status Last Admin Dose Admin Citalopram Hydrobromide (celeXA) 20 mg DAILY ORAL 06/10/18 09:00 07/07/18 08:59 06/15/18 08:21 Furosemide (Lasix) 40 mg EVERY 12 HOURS IV 06/09/18 21:00 07/05/18 11:59 06/15/18 08:21 Heparin Sodium (Porcine) (Heparin 5000 units/ml) 5,000 units EVERY 12 HOURS SUBQ 06/09/18 21:00 07/05/18 20:59 06/15/18 08:22 Ondansetron HCl (Zofran) 4 mg Q4H PRN IVP Nausea & Vomiting 06/09/18 22:15 07/09/18 22:14 06/09/18 22:37 Pantoprazole (Protonix) 40 mg DAILY ORAL 06/10/18 09:00 07/06/18 08:59 06/15/18 08:21 Salmeterol Xinafoate/ Fluticasone (Advair 250/50 Diskus) 1 puffs BID INH 06/09/18 18:00 07/09/18 17:59 06/15/18 08:52 Tiotropium [place] (Spiriva Inhaler) 1 puff DAILY INH 06/10/18 09:00 07/10/18 08:59 06/14/18 09:54 William Avalos MD Jun 15, 2018 13:50
--- NOTE | 2018-06-15 14:48 | Cardiac Electrophysiology PN ---
Assessment/Plan Assessment/Plan 1. Severe bilateral lower extremity edema. BNP is 7500. Due to diastolic dysfunction. On Lasix 40 mg IV b.i.d. Lower extremity duplex no DVT. Echo EF 55% 2. COPD exacerbation. On Solumedrol 3. Lower extremity cellulitis,on antibiotics. JABIER RN Subjective Subjective Feeling better. No cp.No arrhythmias Objective Last 24 Hour Vital Signs Date Time Temp Pulse Resp B/P (MAP) Pulse Ox O2 Delivery O2 Flow Rate FiO2 06/15/18 12:03 79 06/15/18 12:00 Nasal Cannula 1.0 06/15/18 12:00 97.9 81 18 106/59 (75) 98 06/15/18 08:54 Nasal Cannula 2.0 28 06/15/18 08:54 Nasal Cannula 2.0 28 06/15/18 08:53 73 18 98 Nasal Cannula 2.0 32 06/15/18 08:53 74 18 94 Nasal Cannula 2.0 28 06/15/18 08:00 97.7 71 19 108/63 (78) 97 06/15/18 08:00 Nasal Cannula 1.0 06/15/18 08:00 68 06/15/18 06:32 92 Nasal Cannula 1.0 24 06/15/18 06:32 Nasal Cannula 1.0 24 06/15/18 06:32 74 15 Nasal Cannula 1.0 24 06/15/18 04:00 98.0 72 12 105/55 (72) 93 06/15/18 04:00 Nasal Cannula 1.0 06/15/18 04:00 70 06/15/18 02:51 72 17 93 Facial 30 06/15/18 00:41 73 17 95 Facial 30 06/15/18 00:00 30 06/15/18 00:00 99.1 75 16 109/69 (82) 94 06/15/18 00:00 75 06/15/18 00:00 Nasal Cannula 1.0 06/14/18 23:00 76 17 99 Facial 30 06/14/18 22:00 30 06/14/18 21:55 97 Nasal Cannula 1.0 24 06/14/18 21:55 Nasal Cannula 1.0 24 06/14/18 21:55 Nasal Cannula 1.0 24 06/14/18 21:55 Nasal Cannula 1.0 24 06/14/18 20:00 97.9 78 16 105/60 (75) 92 06/14/18 20:00 1.0 06/14/18 20:00 75 06/14/18 20:00 Nasal Cannula 1.0 06/14/18 16:00 72 06/14/18 16:00 Nasal Cannula 1.0 06/14/18 15:43 98.1 72 21 102/67 (79) 94 Intake and Output 06/14/18 06/15/18 19:00 07:00 Intake Total 680 ml 300 ml Output Total 600 ml 850 ml Balance 80 ml -550 ml Intake Oral 680 ml 300 ml Output Urine Total 600 ml 850 ml # Voids 2 # Bowel Movements 3 Laboratory Tests Test 06/14/18 16:27 06/15/18 04:25 Arterial Blood pH 7.472 (7.350-7.450) Arterial Blood Partial Pressure CO2 73.3 mmHg (35.0-45.0) *H Arterial Blood Partial Pressure O2 59.0 mmHg (75.0-100.0) L Arterial Blood HCO3 52.4 mmol/L (22.0-26.0) *H Arterial Blood Oxygen Saturation 90.8 % (95-100) L Arterial Blood Base Excess 23.9 (-2-2) *H Delon Test Positive White Blood Count 11.9 K/UL (4.8-10.8) H Red Blood Count 4.69 M/UL (4.70-6.10) L Hemoglobin 13.8 G/DL (14.2-18.0) L Hematocrit 44.8 % (42.0-52.0) Mean Corpuscular Volume 96 FL (80-99) Mean Corpuscular Hemoglobin 29.5 PG (27.0-31.0) Mean Corpuscular Hemoglobin Concent 30.8 G/DL (32.0-36.0) L Red Cell Distribution Width 16.2 % (11.6-14.8) H Platelet Count 220 K/UL (150-450) Mean Platelet Volume 8.0 FL (6.5-10.1) Neutrophils (%) (Auto) % (45.0-75.0) Lymphocytes (%) (Auto) % (20.0-45.0) Monocytes (%) (Auto) % (1.0-10.0) Eosinophils (%) (Auto) % (0.0-3.0) Basophils (%) (Auto) % (0.0-2.0) Sodium Level 138 MMOL/L (136-145) Potassium Level 5.8 MMOL/L (3.5-5.1) H Chloride Level 92 MMOL/L (98-107) L Carbon Dioxide Level > 45 MMOL/L (21-32) *H Blood Urea Nitrogen 35 mg/dL (7-18) H Creatinine 0.9 MG/DL (0.55-1.30) Estimat Glomerular Filtration Rate mL/min (>60) Glucose Level 82 MG/DL (74-106) Calcium Level 9.3 MG/DL (8.5-10.1) Total Bilirubin 1.0 MG/DL (0.2-1.0) Aspartate Amino Transf (AST/SGOT) 87 U/L (15-37) H Alanine Aminotransferase (ALT/SGPT) 209 U/L (12-78) H Alkaline Phosphatase 99 U/L (46-116) Total Protein 7.1 G/DL (6.4-8.2) Albumin 2.4 G/DL (3.4-5.0) L Globulin 4.7 g/dL Albumin/Globulin Ratio 0.5 (1.0-2.7) L Herpes Simplex Virus I IgM Ab (IFA) Pending Herpes Simplex Virus II IgM Ab (IFA Pending Monoscreen Pending Objective HEAD AND NECK: Mild JVD. LUNGS: Decreased breath sounds. CARDIOVASCULAR: Regular S1 and S2 with no gallop. ABDOMEN: Soft. EXTREMITIES: 1+ pitting edema and cellulitis. Lv Campbell MD Jun 15, 2018 14:48
[2018-06-15 16:00] VITALS: BP 104/61
--- NOTE | 2018-06-15 16:05 | NUR ---
CASE MANAGEMENT: REVIEW SI: COPD EXACERBATION T 97.9 HR 81 RR 18 BP 106/59 SAT 98% NC/2L WBC 11.9 K 5.8 CO2 >45 IS: LASIX IV Q12HR PROTONIX PO QD ADVAIR 250/50 INH BID STEP DOWN UNIT STATUS DCP: PATIENT IS FROM HOME
--- NOTE | 2018-06-15 16:06 | Pulmonology Progress Note ---
Assessment/Plan Problems: (1) COPD exacerbation (2) Pulmonary hypertension (3) Chronic hypercapnic respiratory failure (4) Elevated d-dimer (5) Left leg cellulitis (6) Major depressive disorder Assessment/Plan PRN and qHS NIPPV - ENCOURAGE NOCTURNAL COMPLIANCE Patient has chronic respiratory failure for which a TRILOGY 100 NONINVASIVE VENTILATOR (EPAP 5, IPAP 12, 28%, RR 14) is medically necessary to prevent worsening CO2 retention and respiration failure and to prevent future readmissions. BiPAP has been ineffective at this end. Home O2 RTC and PRN DUOnebs Continue Spiriva and Advair Observe off steroids Monitor volumes and renal function, AVOID OVERDIURESIS F/U cardiology recs Diet per TEMPORARY RECEPTIONIST with STRICT aspiration precautions (only when stable off NIPPV) DVT Px HEP SQ Should have outpatient PFT, PSG Subjective Allergies: Coded Allergies: No Known Allergies (Unverified , 06/05/18) Subjective Doing well used BiPAP ON O2 needs stable less cough less SOB no FC Objective Last 24 Hour Vital Signs Date Time Temp Pulse Resp B/P (MAP) Pulse Ox O2 Delivery O2 Flow Rate FiO2 06/15/18 12:03 79 06/15/18 12:00 Nasal Cannula 1.0 06/15/18 12:00 97.9 81 18 106/59 (75) 98 06/15/18 08:54 Nasal Cannula 2.0 28 06/15/18 08:54 Nasal Cannula 2.0 28 06/15/18 08:53 73 18 98 Nasal Cannula 2.0 32 06/15/18 08:53 74 18 94 Nasal Cannula 2.0 28 06/15/18 08:00 97.7 71 19 108/63 (78) 97 06/15/18 08:00 Nasal Cannula 1.0 06/15/18 08:00 68 06/15/18 06:32 92 Nasal Cannula 1.0 24 06/15/18 06:32 Nasal Cannula 1.0 24 06/15/18 06:32 74 15 Nasal Cannula 1.0 24 06/15/18 04:00 98.0 72 12 105/55 (72) 93 06/15/18 04:00 Nasal Cannula 1.0 06/15/18 04:00 70 06/15/18 02:51 72 17 93 Facial 30 06/15/18 00:41 73 17 95 Facial 30 06/15/18 00:00 30 06/15/18 00:00 99.1 75 16 109/69 (82) 94 06/15/18 00:00 75 06/15/18 00:00 Nasal Cannula 1.0 06/14/18 23:00 76 17 99 Facial 30 06/14/18 22:00 30 06/14/18 21:55 97 Nasal Cannula 1.0 24 06/14/18 21:55 Nasal Cannula 1.0 24 06/14/18 21:55 Nasal Cannula 1.0 24 06/14/18 21:55 Nasal Cannula 1.0 24 06/14/18 20:00 97.9 78 16 105/60 (75) 92 06/14/18 20:00 1.0 06/14/18 20:00 75 06/14/18 20:00 Nasal Cannula 1.0 Intake and Output 06/14/18 06/15/18 19:00 07:00 Intake Total 680 ml 300 ml Output Total 600 ml 850 ml Balance 80 ml -550 ml Intake Oral 680 ml 300 ml Output Urine Total 600 ml 850 ml # Voids 2 # Bowel Movements 3 General Appearance: WD/WN, no acute distress HEENT: normocephalic, atraumatic, anicteric, mucous membranes moist Respiratory/Chest: chest wall non-tender, lungs clear, normal breath sounds, no respiratory distress, no accessory muscle use Cardiovascular: normal peripheral pulses, normal rate, regular rhythm Abdomen: normal bowel sounds, soft, non tender, no organomegaly, non distended , no mass Extremities: no cyanosis, no clubbing, no edema Laboratory Tests 06/14/18 16:27: Arterial Blood pH 7.472H, Arterial Blood Partial Pressure CO2 73.3*H, Arterial Blood Partial Pressure O2 59.0L, Arterial Blood HCO3 52.4*H, Arterial Blood Oxygen Saturation 90.8L, Arterial Blood Base Excess 23.9*H, Delon Test Positive 06/15/18 04:25: White Blood Count 11.9H, Red Blood Count 4.69L, Hemoglobin 13.8L, Hematocrit 44.8, Mean Corpuscular Volume 96, Mean Corpuscular Hemoglobin 29.5, Mean Corpuscular Hemoglobin Concent 30.8L, Red Cell Distribution Width 16.2H, Platelet Count 220, Mean Platelet Volume 8.0, Neutrophils (%) (Auto) , Lymphocytes (%) (Auto) , Monocytes (%) (Auto) , Eosinophils (%) (Auto) , Basophils (%) (Auto) , Sodium Level 138, Potassium Level 5.8H, Chloride Level 92L, Carbon Dioxide Level > 45*H, Blood Urea Nitrogen 35H, Creatinine 0.9, Estimat Glomerular Filtration Rate , Glucose Level 82, Calcium Level 9.3, Total Bilirubin 1.0, Aspartate Amino Transf (AST/SGOT) 87H, Alanine Aminotransferase ( ALT/SGPT) 209H, Alkaline Phosphatase 99, Total Protein 7.1, Albumin 2.4L, Globulin 4.7, Albumin/Globulin Ratio 0.5L, Herpes Simplex Virus I IgM Ab (IFA) [ Pending], Herpes Simplex Virus II IgM Ab (IFA [Pending], Monoscreen [Pending] Current Medications Medications (Trade) Dose Ordered Sig/Brittani Route PRN Reason Start Time Stop Time Status Last Admin Dose Admin Citalopram Hydrobromide (celeXA) 20 mg DAILY ORAL 06/10/18 09:00 07/07/18 08:59 06/15/18 08:21 Furosemide (Lasix) 40 mg EVERY 12 HOURS IV 06/09/18 21:00 07/05/18 11:59 06/15/18 08:21 Heparin Sodium (Porcine) (Heparin 5000 units/ml) 5,000 units EVERY 12 HOURS SUBQ 06/09/18 21:00 07/05/18 20:59 06/15/18 08:22 Ondansetron HCl (Zofran) 4 mg Q4H PRN IVP Nausea & Vomiting 06/09/18 22:15 07/09/18 22:14 06/09/18 22:37 Pantoprazole (Protonix) 40 mg DAILY ORAL 06/10/18 09:00 07/06/18 08:59 06/15/18 08:21 Salmeterol Xinafoate/ Fluticasone (Advair 250/50 Diskus) 1 puffs BID INH 06/09/18 18:00 07/09/18 17:59 06/15/18 08:52 Tiotropium [place] (Spiriva Inhaler) 1 puff DAILY INH 06/10/18 09:00 07/10/18 08:59 06/14/18 09:54 Jason Pinedo MD Jun 15, 2018 16:06
[2018-06-15] MEDS ORDERED: Albuterol/Ipratropium 3ml neb HHN PRN (16:15)
--- NOTE | 2018-06-15 18:53 | NUR ---
NURSE NOTES: Left a message to Dr. Nichole for a discharge order. Awaiting for call back.
--- NOTE | 2018-06-15 19:15 | NUR ---
HAND-OFF: Report given to GENNY Wang. Endorsed to her that waiting on discharge order from Dr. Nichole. Patient is stable and in no apparent distress.
--- NOTE | 2018-06-15 19:16 | NUR ---
NURSE NOTES: Patient received from GENNY Stringer at bedside. Pt AOX4, NSR on monitor, able to follow commands. 1L NC; sating well, RR even, unlaboured. Condom catheter in patent, draining. IV patent, asymptomatic. Bed in lowest position, side rails x3, call murphy within reach, bed alarm on. Awaiting DC order w/ home bipap. Will continue to follow plan of care.
[2018-06-15] MEDS: Albuterol/Ipratropium 3ml neb HHN SCH (19:53)
[2018-06-15 20:00] VITALS: BP 113/61
--- NOTE | 2018-06-15 20:34 | General Progress Note ---
Assessment/Plan Assessment/Plan COVERING FOR DR. CHIN ASSESSMENT AND RECOMMENDATIONS # Thrombocytopenia - potential causes multifactorial, evaluate liver and viral etiologies to begin, also could be related to underlying medications patient has received. --> Monitor and trend Plt count for improvement/stability --> Currently on Heparin --> Hep panel is negative, HIV neg --> US abd shows slightly increased renal echogenicity, consistent with medical renal disease. Negative for hydronephrosis --> abx and other meds have been reviewed # Anemia of chronic disease due to underlying chronic medical issues, multifactorial. --> Current hgb >10, no w/u required at this time --> Monitor for stability # Bilateral lower extremity edema. BNP is also 7500. --> on Lasix 40 mg IV b.i.d. as per pulm --> duplex lower ext negative # COPD exacerbation. Pulm is following, appreciate recs. --> currently on BiPAP prn, on steriods # Lower extremity cellulitis. ID is following, appreciate recs. --> Completed antibiotics. --> cards following as well Subjective Allergies: Coded Allergies: No Known Allergies (Unverified , 06/05/18) Subjective 06/11: Seen by RT for low O2 sat overnight, remains on BIPAP. VS remain stable. 06/12: getting bipap prn especially at night and during day on simple mask, monitoring fluid status, labs currently stable 06/13: Pt now on NC. No acute events. Observe off of abx per ID. VS stable. 06/14: receiving steriods, breathing condition has improved, seen by cards as well, potential dc soon no events noted, stable for dc, have placed order Objective Last 24 Hour Vital Signs Date Time Temp Pulse Resp B/P (MAP) Pulse Ox O2 Delivery O2 Flow Rate FiO2 06/15/18 20:03 79 20 99 Nasal Cannula 2.0 06/15/18 19:58 80 20 98 Nasal Cannula 2.0 28 06/15/18 19:57 68 18 97 Nasal Cannula 2.0 28 06/15/18 19:56 Nasal Cannula 2.0 28 06/15/18 19:55 96 Nasal Cannula 2.0 28 06/15/18 19:50 76 18 97 Nasal Cannula 2.0 28 06/15/18 16:00 97.2 80 20 104/61 (75) 95 12/28/18 16:00 Nasal Cannula 1.0 06/15/18 15:14 81 06/15/18 12:03 79 06/15/18 12:00 Nasal Cannula 1.0 06/15/18 12:00 97.9 81 18 106/59 (75) 98 06/15/18 08:54 Nasal Cannula 2.0 28 06/15/18 08:54 Nasal Cannula 2.0 28 06/15/18 08:53 73 18 98 Nasal Cannula 2.0 32 06/15/18 08:53 74 18 94 Nasal Cannula 2.0 28 06/15/18 08:00 97.7 71 19 108/63 (78) 97 06/15/18 08:00 Nasal Cannula 1.0 06/15/18 08:00 68 06/15/18 06:32 92 Nasal Cannula 1.0 24 06/15/18 06:32 Nasal Cannula 1.0 24 06/15/18 06:32 74 15 Nasal Cannula 1.0 24 06/15/18 04:00 98.0 72 12 105/55 (72) 93 06/15/18 04:00 Nasal Cannula 1.0 06/15/18 04:00 70 06/15/18 02:51 72 17 93 Facial 30 06/15/18 00:41 73 17 95 Facial 30 06/15/18 00:00 30 06/15/18 00:00 99.1 75 16 109/69 (82) 94 06/15/18 00:00 75 06/15/18 00:00 Nasal Cannula 1.0 06/14/18 23:00 76 17 99 Facial 30 06/14/18 22:00 30 06/14/18 21:55 97 Nasal Cannula 1.0 24 06/14/18 21:55 Nasal Cannula 1.0 24 06/14/18 21:55 Nasal Cannula 1.0 24 06/14/18 21:55 Nasal Cannula 1.0 24 Intake and Output 06/14/18 06/15/18 19:00 07:00 Intake Total 680 ml 300 ml Output Total 600 ml 850 ml Balance 80 ml -550 ml Intake Oral 680 ml 300 ml Output Urine Total 600 ml 850 ml # Voids 2 # Bowel Movements 3 Laboratory Tests 06/15/18 04:25: White Blood Count 11.9H, Red Blood Count 4.69L, Hemoglobin 13.8L, Hematocrit 44.8, Mean Corpuscular Volume 96, Mean Corpuscular Hemoglobin 29.5, Mean Corpuscular Hemoglobin Concent 30.8L, Red Cell Distribution Width 16.2H, Platelet Count 220, Mean Platelet Volume 8.0, Neutrophils (%) (Auto) , Lymphocytes (%) (Auto) , Monocytes (%) (Auto) , Eosinophils (%) (Auto) , Basophils (%) (Auto) , Sodium Level 138, Potassium Level 5.8H, Chloride Level 92L, Carbon Dioxide Level > 45*H, Blood Urea Nitrogen 35H, Creatinine 0.9, Estimat Glomerular Filtration Rate , Glucose Level 82, Calcium Level 9.3, Total Bilirubin 1.0, Aspartate Amino Transf (AST/SGOT) 87H, Alanine Aminotransferase ( ALT/SGPT) 209H, Alkaline Phosphatase 99, Total Protein 7.1, Albumin 2.4L, Globulin 4.7, Albumin/Globulin Ratio 0.5L, Cytomegalovirus DNA Qual (PCR) [ Pending], Herpes Simplex Virus I IgM Ab (IFA) [Pending], Herpes Simplex Virus II IgM Ab (IFA [Pending], Monoscreen [Pending] Height (Feet): 5 Height (Inches): 8.00 Weight (Pounds): 112 General Appearance: alert EENT: normal ENT inspection Neck: normal alignment Cardiovascular: regularly irregular Respiratory/Chest: normal breath sounds Abdomen: no mass Extremities: normal inspection Edema: 1+ Leg (L), 1+ Pedal (L) Edema: mild edema Neurologic: alert Skin: warm/dry Objective PHYSICAL EXAMINATION: VITAL SIGNS: Have been reviewed HEAD AND NECK: Show positive JVD. LUNGS: Decreased breath sounds. sob is improved CARDIOVASCULAR: Shows regular S1 and S2 with no gallop. ABDOMEN: Soft. EXTREMITIES: Bilateral 2+ pitting edema and cellulitis. Conrado Morel MD Jun 15, 2018 20:34
--- NOTE | 2018-06-15 20:35 | General Progress Note ---
Assessment/Plan Assessment/Plan Assessment - CHF - COPD / BIPAP - Edema, LE cellulitis - Anemia -Transaminitis - negative U/S and hepatitis serologies - likely passive congestion - HSV/[place]/CMV pending Recommendations Push PO follow labs and exam abx per ID trend LFTs - as outpatient if discharged If LFT continue to rise --> check abd CT with IV contrast Subjective Allergies: Coded Allergies: No Known Allergies (Unverified , 06/05/18) Subjective above noted doing better ate well Objective Last 24 Hour Vital Signs Date Time Temp Pulse Resp B/P (MAP) Pulse Ox O2 Delivery O2 Flow Rate FiO2 06/15/18 20:03 79 20 99 Nasal Cannula 2.0 28 06/15/18 19:58 80 20 98 Nasal Cannula 2.0 28 06/15/18 19:57 68 18 97 Nasal Cannula 2.0 28 06/15/18 19:56 Nasal Cannula 2.0 28 06/15/18 19:55 96 Nasal Cannula 2.0 06/15/18 19:50 76 18 97 Nasal Cannula 2.0 28 06/15/18 16:00 97.2 80 20 104/61 (75) 95 06/15/18 16:00 Nasal Cannula 1.0 06/15/18 15:14 81 06/15/18 12:03 79 06/15/18 12:00 Nasal Cannula 1.0 06/15/18 12:00 97.9 81 18 106/59 (75) 98 06/15/18 08:54 Nasal Cannula 2.0 28 06/15/18 08:54 Nasal Cannula 2.0 28 06/15/18 08:53 73 18 98 Nasal Cannula 2.0 32 06/15/18 08:53 74 18 94 Nasal Cannula 2.0 28 06/15/18 08:00 97.7 71 19 108/63 (78) 97 06/15/18 08:00 Nasal Cannula 1.0 06/15/18 08:00 68 06/15/18 06:32 92 Nasal Cannula 1.0 24 06/15/18 06:32 Nasal Cannula 1.0 24 06/15/18 06:32 74 15 Nasal Cannula 1.0 24 06/15/18 04:00 98.0 72 12 105/55 (72) 93 06/15/18 04:00 Nasal Cannula 1.0 06/15/18 04:00 70 06/15/18 02:51 72 17 93 Facial 30 06/15/18 00:41 73 17 95 Facial 30 06/15/18 00:00 30 06/15/18 00:00 99.1 75 16 109/69 (82) 94 06/15/18 00:00 75 06/15/18 00:00 Nasal Cannula 1.0 06/14/18 23:00 76 17 99 Facial 30 06/14/18 22:00 30 06/14/18 21:55 97 Nasal Cannula 1.0 24 06/14/18 21:55 Nasal Cannula 1.0 24 06/14/18 21:55 Nasal Cannula 1.0 24 06/14/18 21:55 Nasal Cannula 1.0 24 Intake and Output 06/14/18 06/15/18 19:00 07:00 Intake Total 680 ml 300 ml Output Total 600 ml 850 ml Balance 80 ml -550 ml Intake Oral 680 ml 300 ml Output Urine Total 600 ml 850 ml # Voids 2 # Bowel Movements 3 Laboratory Tests 06/15/18 04:25: White Blood Count 11.9H, Red Blood Count 4.69L, Hemoglobin 13.8L, Hematocrit 44.8, Mean Corpuscular Volume 96, Mean Corpuscular Hemoglobin 29.5, Mean Corpuscular Hemoglobin Concent 30.8L, Red Cell Distribution Width 16.2H, Platelet Count 220, Mean Platelet Volume 8.0, Neutrophils (%) (Auto) , Lymphocytes (%) (Auto) , Monocytes (%) (Auto) , Eosinophils (%) (Auto) , Basophils (%) (Auto) , Sodium Level 138, Potassium Level 5.8H, Chloride Level 92L, Carbon Dioxide Level > 45*H, Blood Urea Nitrogen 35H, Creatinine 0.9, Estimat Glomerular Filtration Rate , Glucose Level 82, Calcium Level 9.3, Total Bilirubin 1.0, Aspartate Amino Transf (AST/SGOT) 87H, Alanine Aminotransferase ( ALT/SGPT) 209H, Alkaline Phosphatase 99, Total Protein 7.1, Albumin 2.4L, Globulin 4.7, Albumin/Globulin Ratio 0.5L, Cytomegalovirus DNA Qual (PCR) [ Pending], Herpes Simplex Virus I IgM Ab (IFA) [Pending], Herpes Simplex Virus II IgM Ab (IFA [Pending], Monoscreen [Pending] Height (Feet): 5 Height (Inches): 8.00 Weight (Pounds): 112 Objective Thin AA man NCAT temporal wasting Supple CTA RR abd soft ND NT (+) cellulitis Carlos Daly MD Jun 15, 2018 20:35
--- NOTE | 2018-06-15 22:21 | General Progress Note ---
Assessment/Plan Problem List: (1) Major depressive disorder ICD Codes: F32.9 - Major depressive disorder, single episode, unspecified SNOMED: 499429135 Assessment/Plan Celexa 20mg qam Provided st/ro Subjective Neurologic/Psychiatric: Reports: anxiety, depressed, emotional problems Allergies: Coded Allergies: No Known Allergies (Unverified , 06/05/18) Subjective memory impairment Objective Last 24 Hour Vital Signs Date Time Temp Pulse Resp B/P (MAP) Pulse Ox O2 Delivery O2 Flow Rate FiO2 06/15/18 20:03 79 20 99 Nasal Cannula 2.0 28 06/15/18 19:58 80 20 98 Nasal Cannula 2.0 28 06/15/18 19:57 68 18 97 Nasal Cannula 2.0 06/15/18 19:56 Nasal Cannula 2.0 06/15/18 19:55 96 Nasal Cannula 2.0 06/15/18 19:50 76 18 97 Nasal Cannula 2.0 28 06/15/18 16:00 97.2 80 20 104/61 (75) 95 06/15/18 16:00 Nasal Cannula 1.0 06/15/18 15:14 81 06/15/18 12:03 79 06/15/18 12:00 Nasal Cannula 1.0 06/15/18 12:00 97.9 81 18 106/59 (75) 98 06/15/18 08:54 Nasal Cannula 2.0 06/15/18 08:54 Nasal Cannula 2.0 06/15/18 08:53 73 18 98 Nasal Cannula 2.0 32 06/15/18 08:53 74 18 94 Nasal Cannula 2.0 28 06/15/18 08:00 97.7 71 19 108/63 (78) 97 06/15/18 08:00 Nasal Cannula 1.0 06/15/18 08:00 68 06/15/18 06:32 92 Nasal Cannula 1.0 24 06/15/18 06:32 Nasal Cannula 1.0 24 06/15/18 06:32 74 15 Nasal Cannula 1.0 24 06/15/18 04:00 98.0 72 12 105/55 (72) 93 06/15/18 04:00 Nasal Cannula 1.0 06/15/18 04:00 70 06/15/18 02:51 72 17 93 Facial 30 06/15/18 00:41 73 17 95 Facial 30 06/15/18 00:00 30 06/15/18 00:00 99.1 75 16 109/69 (82) 94 06/15/18 00:00 75 06/15/18 00:00 Nasal Cannula 1.0 06/14/18 23:00 76 17 99 Facial 30 Intake and Output 06/14/18 06/15/18 19:00 07:00 Intake Total 680 ml 300 ml Output Total 600 ml 850 ml Balance 80 ml -550 ml Intake Oral 680 ml 300 ml Output Urine Total 600 ml 850 ml # Voids 2 # Bowel Movements 3 Laboratory Tests 06/15/18 04:25: White Blood Count 11.9H, Red Blood Count 4.69L, Hemoglobin 13.8L, Hematocrit 44.8, Mean Corpuscular Volume 96, Mean Corpuscular Hemoglobin 29.5, Mean Corpuscular Hemoglobin Concent 30.8L, Red Cell Distribution Width 16.2H, Platelet Count 220, Mean Platelet Volume 8.0, Neutrophils (%) (Auto) , Lymphocytes (%) (Auto) , Monocytes (%) (Auto) , Eosinophils (%) (Auto) , Basophils (%) (Auto) , Sodium Level 138, Potassium Level 5.8H, Chloride Level 92L, Carbon Dioxide Level > 45*H, Blood Urea Nitrogen 35H, Creatinine 0.9, Estimat Glomerular Filtration Rate , Glucose Level 82, Calcium Level 9.3, Total Bilirubin 1.0, Aspartate Amino Transf (AST/SGOT) 87H, Alanine Aminotransferase ( ALT/SGPT) 209H, Alkaline Phosphatase 99, Total Protein 7.1, Albumin 2.4L, Globulin 4.7, Albumin/Globulin Ratio 0.5L, Cytomegalovirus DNA Qual (PCR) [ Pending], Herpes Simplex Virus I IgM Ab (IFA) [Pending], Herpes Simplex Virus II IgM Ab (IFA [Pending], Monoscreen [Pending] Height (Feet): 5 Height (Inches): 8.00 Weight (Pounds): 112 General Appearance: no apparent distress, alert Neurologic: responsive, depressed affect Destiny Mares MD Jun 15, 2018 22:21
--- NOTE | 2018-06-15 22:43 | NUR ---
NURSE NOTES: Received order for DC. Contacted Jennifer from [facility] at [phone]. Left a message to set up time for home BiPAP.
[2018-06-16] VITALS: BP 103/63
[2018-06-16] MEDS: Albuterol/Ipratropium 3ml neb HHN SCH ×3 (01:42→13:37)
[2018-06-16 04:00] VITALS: BP 110/70
[2018-06-16 05:28] LABS: ALANINE AMINOTRANSFERASE 173 U/L (12-78); ALBUMIN 2.4 G/DL (3.4-5.0); ALBUMIN/GLOBULIN RATIO 0.6 (1.0-2.7); ALKALINE PHOSPHATASE 96 U/L (46-116); ASPARTATE AMINO TRANSFERASE 49 U/L (15-37); BILIRUBIN,TOTAL 0.7 MG/DL (0.2-1.0); BLOOD UREA NITROGEN 32 mg/dL (7-18); CALCIUM 8.6 MG/DL (8.5-10.1); CHLORIDE 95 MMOL/L (98-107); CREATININE 0.9 MG/DL (0.55-1.30); POTASSIUM 3.8 MMOL/L (3.5-5.1); SODIUM 141 MMOL/L (136-145)
[2018-06-16 05:29] LABS: CARBON DIOXIDE > 45 MMOL/L (21-32)
--- NOTE | 2018-06-16 05:29 | NUR ---
NURSE NOTES: Received call from Karma in the lab. CO2 elevated. Previous ABG results show no change. Per AM nurse, aware and OK. Will endorse to next AM nurse and continue to monitor.
--- NOTE | 2018-06-16 07:08 | NUR ---
HAND-OFF: Report given to GENNY Stringer.
--- NOTE | 2018-06-16 07:09 | NUR ---
NURSE NOTES: Received patient from Kathleen ROYAL. Patient in bed and asleep. On 1L via NC. No SOB. Respirations are even and unlaboured. bus driver/monitor in placed. Condom catheter in placed patent and draining. IV site is asymptomatic. Plan to discharge him today. Will continue to follow plan of care.
[2018-06-16 08:00] VITALS: BP 100/67
[2018-06-16] MEDS: Advair 250/50 Inhaler - 14 dose INH SCH (09:00)
[2018-06-16] MEDS: Citalopram Hydrobromide 10mg Tab ORAL SCH (09:18)
[2018-06-16] MEDS: Heparin 5000 units/ml inj SUBQ SCH (09:19)
[2018-06-16 12:00] VITALS: BP 92/61
--- NOTE | 2018-06-16 14:48 | Cardiac Electrophysiology PN ---
Assessment/Plan Assessment/Plan 1. Severe bilateral lower extremity edema. BNP is 7500. Due to diastolic dysfunction. On Lasix 40 mg IV b.i.d. Lower extremity duplex no DVT. Echo EF 55% 2. COPD exacerbation. On Solumedrol. Tolerating room air. 3. Lower extremity cellulitis,on antibiotics. 4. DC planning to home and BIPAP machine is delivered. JABIER RN Subjective Subjective Feeling better.DC planning in progress. No cp.No arrhythmias Objective Last 24 Hour Vital Signs Date Time Temp Pulse Resp B/P (MAP) Pulse Ox O2 Delivery O2 Flow Rate FiO2 06/16/18 13:45 78 24 100 Nasal Cannula 28 06/16/18 13:37 74 18 96 Nasal Cannula 2.0 28 06/16/18 12:00 98.2 82 18 92/61 (71) 98 06/16/18 12:00 82 06/16/18 12:00 Nasal Cannula 1.0 06/16/18 09:27 Nasal Cannula 06/16/18 09:27 Nasal Cannula 06/16/18 09:27 Nasal Cannula 06/16/18 09:27 Nasal Cannula 06/16/18 08:00 97.5 74 16 100/67 (78) 99 06/16/18 08:00 Nasal Cannula 1.0 06/16/18 08:00 71 06/16/18 07:40 96 Nasal Cannula 2.0 06/16/18 07:40 Nasal Cannula 06/16/18 07:40 Nasal Cannula 2.0 06/16/18 07:40 Nasal Cannula 06/16/18 05:18 84 18 98 Facial 28 06/16/18 04:00 71 06/16/18 04:00 97.9 72 16 110/70 (83) 97 06/16/18 04:00 Nasal Cannula 1.0 06/16/18 03:30 72 17 99 Full Face 28 06/16/18 02:54 77 16 100 Full Face 28 06/16/18 01:52 80 27 100 Bi-pap 28 06/16/18 01:40 73 16 98 Bi-pap 28 06/16/18 01:00 73 16 98 Facial 28 06/16/18 00:00 98.4 82 20 103/63 (76) 95 06/16/18 00:00 85 06/16/18 00:00 Nasal Cannula 1.0 06/15/18 22:00 30 06/15/18 22:00 72 18 98 06/15/18 20:03 79 20 99 Nasal Cannula 2.0 28 06/15/18 20:00 76 06/15/18 20:00 98.5 73 20 113/61 (78) 95 06/15/18 20:00 Nasal Cannula 1.0 06/15/18 19:58 80 20 98 Nasal Cannula 2.0 28 06/15/18 19:57 68 18 97 Nasal Cannula 2.0 06/15/18 19:56 Nasal Cannula 2.0 06/15/18 19:55 96 Nasal Cannula 2.0 06/15/18 19:50 76 18 97 Nasal Cannula 2.0 28 06/15/18 16:00 97.2 80 20 104/61 (75) 95 06/15/18 16:00 Nasal Cannula 1.0 06/15/18 15:14 81 Intake and Output 06/15/18 06/16/18 19:00 07:00 Intake Total 720 ml 120 ml Output Total 1200 ml 1200 ml Balance -480 ml -1080 ml Intake Oral 720 ml 120 ml Output Urine Total 1200 ml 1200 ml # Bowel Movements 5 Laboratory Tests Test 06/16/18 03:55 Sodium Level 141 MMOL/L (136-145) Potassium Level 3.8 MMOL/L (3.5-5.1) Chloride Level 95 MMOL/L (98-107) L Carbon Dioxide Level > 45 MMOL/L (21-32) *H Blood Urea Nitrogen 32 mg/dL (7-18) H Creatinine 0.9 MG/DL (0.55-1.30) Estimat Glomerular Filtration Rate mL/min (>60) Glucose Level 98 MG/DL (74-106) Calcium Level 8.6 MG/DL (8.5-10.1) Total Bilirubin 0.7 MG/DL (0.2-1.0) Aspartate Amino Transf (AST/SGOT) 49 U/L (15-37) H Alanine Aminotransferase (ALT/SGPT) 173 U/L (12-78) H Alkaline Phosphatase 96 U/L (46-116) Total Protein 6.4 G/DL (6.4-8.2) Albumin 2.4 G/DL (3.4-5.0) L Globulin 4.0 g/dL Albumin/Globulin Ratio 0.6 (1.0-2.7) L Objective HEAD AND NECK: Mild JVD. LUNGS: Decreased breath sounds. CARDIOVASCULAR: Regular S1 and S2 with no gallop. ABDOMEN: Soft. EXTREMITIES: 1+ pitting edema and cellulitis. Lv Campbell MD Jun 16, 2018 14:48
--- NOTE | 2018-06-16 15:06 | General Progress Note ---
Assessment/Plan Status: stable Assessment/Plan COVERING FOR DR. CHIN ASSESSMENT AND RECOMMENDATIONS # Thrombocytopenia - potential causes multifactorial, evaluate liver and viral etiologies to begin, also could be related to underlying medications patient has received. --> Plt count has imroved, wnl. --> Currently on Heparin --> Hep panel is negative, HIV neg --> US abd shows slightly increased renal echogenicity, consistent with medical renal disease. Negative for hydronephrosis --> abx and other meds have been reviewed # Anemia of chronic disease due to underlying chronic medical issues, multifactorial. --> Current hgb >10, no w/u required at this time --> Monitor for stability # Bilateral lower extremity edema. BNP is also 7500. --> on Lasix 40 mg IV b.i.d. as per pulm --> duplex lower ext negative # COPD exacerbation. Pulm is following, appreciate recs. --> currently on BiPAP prn, on steriods # Lower extremity cellulitis. ID is following, appreciate recs. --> Completed antibiotics. --> cards following as well Subjective Date patient seen: Jun 16, 2018 Hematologic/Lymphatic: Reports: anemia Allergies: Coded Allergies: No Known Allergies (Unverified , 06/05/18) All Systems: reviewed and negative except above Subjective 06/11: Seen by RT for low O2 sat overnight, remains on BIPAP. VS remain stable. 06/12: getting bipap prn especially at night and during day on simple mask, monitoring fluid status, labs currently stable 06/13: Pt now on NC. No acute events. Observe off of abx per ID. VS stable. 06/14: receiving steroids, breathing condition has improved, seen by cards as well, potential dc soon 06/15: no events noted, stable for dc, have placed order 06/16: Pt resting in bed. No acute events. Plt count has improved, wnl. Objective Last 24 Hour Vital Signs Date Time Temp Pulse Resp B/P (MAP) Pulse Ox O2 Delivery O2 Flow Rate FiO2 06/16/18 13:45 78 24 100 Nasal Cannula 28 06/16/18 13:37 74 18 96 Nasal Cannula 2.0 28 06/16/18 12:00 98.2 82 18 92/61 (71) 98 06/16/18 12:00 82 06/16/18 12:00 Nasal Cannula 1.0 06/16/18 09:27 Nasal Cannula 06/16/18 09:27 Nasal Cannula 06/16/18 09:27 Nasal Cannula 06/16/18 09:27 Nasal Cannula 06/16/18 08:00 97.5 74 16 100/67 (78) 99 06/16/18 08:00 Nasal Cannula 1.0 06/16/18 08:00 71 06/16/18 07:40 96 Nasal Cannula 2.0 06/16/18 07:40 Nasal Cannula 06/16/18 07:40 Nasal Cannula 2.0 06/16/18 07:40 Nasal Cannula 06/16/18 05:18 84 18 98 Facial 28 06/16/18 04:00 71 06/16/18 04:00 97.9 72 16 110/70 (83) 97 06/16/18 04:00 Nasal Cannula 1.0 06/16/18 03:30 72 17 99 Full Face 06/16/18 02:54 77 16 100 Full Face 06/16/18 01:52 80 27 100 Bi-pap 06/16/18 01:40 73 16 98 Bi-pap 06/16/18 01:00 73 16 98 Facial 28 06/16/18 00:00 98.4 82 20 103/63 (76) 95 06/16/18 00:00 85 06/16/18 00:00 Nasal Cannula 1.0 06/15/18 22:00 30 06/15/18 22:00 72 18 98 06/15/18 20:03 79 20 99 Nasal Cannula 2.0 06/15/18 20:00 76 06/15/18 20:00 98.5 73 20 113/61 (78) 95 06/15/18 20:00 Nasal Cannula 1.0 06/15/18 19:58 80 20 98 Nasal Cannula 2.0 06/15/18 19:57 68 18 97 Nasal Cannula 2.0 06/15/18 19:56 Nasal Cannula 2.0 06/15/18 19:55 96 Nasal Cannula 2.0 06/15/18 19:50 76 18 97 Nasal Cannula 2.0 28 06/15/18 16:00 97.2 80 20 104/61 (75) 95 06/15/18 16:00 Nasal Cannula 1.0 06/15/18 15:14 81 Intake and Output 06/15/18 06/16/18 19:00 07:00 Intake Total 720 ml 120 ml Output Total 1200 ml 1200 ml Balance -480 ml -1080 ml Intake Oral 720 ml 120 ml Output Urine Total 1200 ml 1200 ml # Bowel Movements 5 Laboratory Tests 06/16/18 03:55: Sodium Level 141, Potassium Level 3.8, Chloride Level 95L, Carbon Dioxide Level > 45*H, Blood Urea Nitrogen 32H, Creatinine 0.9, Estimat Glomerular Filtration Rate , Glucose Level 98, Calcium Level 8.6, Total Bilirubin 0.7, Aspartate Amino Transf (AST/SGOT) 49H, Alanine Aminotransferase (ALT/SGPT) 173H, Alkaline Phosphatase 96, Total Protein 6.4, Albumin 2.4L, Globulin 4.0, Albumin/Globulin Ratio 0.6L Height (Feet): 5 Height (Inches): 8.00 Weight (Pounds): 115 Objective PHYSICAL EXAMINATION: VITAL SIGNS: Have been reviewed HEAD AND NECK: Show positive JVD. LUNGS: Decreased breath sounds. sob is improved CARDIOVASCULAR: Shows regular S1 and S2 with no gallop. ABDOMEN: Soft. EXTREMITIES: Bilateral 2+ pitting edema and cellulitis. Conrado Morel MD Jun 16, 2018 15:06
--- NOTE | 2018-06-16 15:30 | NUR ---
NURSE NOTES: I was instructed by Jennifer from [facility] to have any doctor sign the home bipap machine prescription. Dr. Morel agreed to sign the prescription. Informed Jennifer and she said that she accepted the prescription with Dr. Morel's signature and will follow up with the Dr. Pinedo.
[2018-06-16 16:00] VITALS: BP 92/68
--- NOTE | 2018-06-16 16:15 | General Progress Note ---
Assessment/Plan Assessment/Plan Assessment - CHF - COPD / BIPAP - Edema, LE cellulitis - Anemia -Transaminitis - negative U/S and hepatitis serologies - likely passive congestion - HSV/Nelson/CMV pending Recommendations Push PO follow labs and exam abx per ID trend LFTs - as outpatient if discharged If LFT continue to rise --> check abd CT with IV contrast Subjective Allergies: Coded Allergies: No Known Allergies (Unverified , 06/05/18) Subjective above noted doing better ate well Objective Last 24 Hour Vital Signs Date Time Temp Pulse Resp B/P (MAP) Pulse Ox O2 Delivery O2 Flow Rate FiO2 06/16/18 13:45 78 24 100 Nasal Cannula 28 06/16/18 13:37 74 18 96 Nasal Cannula 2.0 28 06/16/18 12:00 98.2 82 18 92/61 (71) 98 06/16/18 12:00 82 06/16/18 12:00 Nasal Cannula 1.0 06/16/18 09:27 Nasal Cannula 06/16/18 09:27 Nasal Cannula 06/16/18 09:27 Nasal Cannula 06/16/18 09:27 Nasal Cannula 06/16/18 08:00 97.5 74 16 100/67 (78) 99 06/16/18 08:00 Nasal Cannula 1.0 06/16/18 08:00 71 06/16/18 07:40 96 Nasal Cannula 2.0 06/16/18 07:40 Nasal Cannula 06/16/18 07:40 Nasal Cannula 2.0 06/16/18 07:40 Nasal Cannula 06/16/18 05:18 84 18 98 Facial 28 06/16/18 04:00 71 06/16/18 04:00 97.9 72 16 110/70 (83) 97 06/16/18 04:00 Nasal Cannula 1.0 06/16/18 03:30 72 17 99 Full Face 28 06/16/18 02:54 77 16 100 Full Face 28 06/16/18 01:52 80 27 100 Bi-pap 28 06/16/18 01:40 73 16 98 Bi-pap 28 06/16/18 01:00 73 16 98 Facial 28 06/16/18 00:00 98.4 82 20 103/63 (76) 95 06/16/18 00:00 85 06/16/18 00:00 Nasal Cannula 1.0 06/15/18 22:00 30 06/15/18 22:00 72 18 98 06/15/18 20:03 79 20 99 Nasal Cannula 2.0 28 06/15/18 20:00 76 06/15/18 20:00 98.5 73 20 113/61 (78) 95 06/15/18 20:00 Nasal Cannula 1.0 06/15/18 19:58 80 20 98 Nasal Cannula 2.0 28 06/15/18 19:57 68 18 97 Nasal Cannula 2.0 28 06/15/18 19:56 Nasal Cannula 2.0 28 06/15/18 19:55 96 Nasal Cannula 2.0 28 06/15/18 19:50 76 18 97 Nasal Cannula 2.0 28 Intake and Output 06/15/18 06/16/18 19:00 07:00 Intake Total 720 ml 120 ml Output Total 1200 ml 1200 ml Balance -480 ml -1080 ml Intake Oral 720 ml 120 ml Output Urine Total 1200 ml 1200 ml # Bowel Movements 5 Laboratory Tests 06/16/18 03:55: Sodium Level 141, Potassium Level 3.8, Chloride Level 95L, Carbon Dioxide Level > 45*H, Blood Urea Nitrogen 32H, Creatinine 0.9, Estimat Glomerular Filtration Rate , Glucose Level 98, Calcium Level 8.6, Total Bilirubin 0.7, Aspartate Amino Transf (AST/SGOT) 49H, Alanine Aminotransferase (ALT/SGPT) 173H, Alkaline Phosphatase 96, Total Protein 6.4, Albumin 2.4L, Globulin 4.0, Albumin/Globulin Ratio 0.6L Height (Feet): 5 Height (Inches): 8.00 Weight (Pounds): 115 Objective Thin AA man NCAT temporal wasting Supple CTA RR abd soft ND NT (+) cellulitis Carlos Daly MD Jun 16, 2018 16:15
--- NOTE | 2018-06-16 18:15 | NUR ---
Discharge: Patient is being discharged from medical care. Awake, alert and oriented x4. After care instructions were given. Patient verbalized understanding of After care instructions; Home bipap machine is sent by [facility] [facility] to home. Patient's son Jah Holly signed patient consent in the medical record for patient destination upon discharge. All medical devices such as IV and ID band were removed. Patient was put in a wheelchair with all personal belongings.
--- NOTE | 2018-06-17 11:09 | Discharge Summary ---
Discharge Summary Discharge Summary _ DATE OF ADMISSION: 06/05/2018 DATE OF DISCHARGE: 2917 DISCHARGED BY: Dr. Hall REASON FOR ADMISSION: 72 years old male brought to emergency department from home with increased bilateral lower extremity pain and edema. Per patient's son, patient had increased difficulty breathing since he was off his medication for COPD. No known heart condition. Upon evaluation vital signs reveal low-grade fever ,tachycardia. Laboratory workup revealed no leukocytosis, hemoglobin 13.6, hematocrit 42.8, platelet count 148. Lactic acid 2.8. Potassium 5.3. BUN 35, creatinine 1.4. Total bilirubin 1.5 direct bilirubin 0.5. AST 104. ALT 98. alkaline phosphatase within normal limits 85. Troponin 0 0.054. EKG revealed normal sinus rhythm no acute ischemic changes Chest x-ray revealed hyperinflation compatible with COPD ,but no acute cardiopulmonary pathology. CT of the head revealed no gross acute intracranial bleeding or mass effect. Mild age-related volume loss noted. Patient admitted with COPD exacerbation, left leg cellulitis, pedal edema , emphysema of lung, elevated LFT, renal failure. CONSULTANTS: personnel manager Dr. Pablo pulmonary ID specialist Dr. Disla GI specialist Dr. Ahumada business instructor/oncologist Dr. Morel psychiatrist [facility]SE: Patient admitted to stepdown unit. Supplemental oxygen provided to keep pulse oximetry above 90%. Pulmonary toilet provided with nebulizing therapy around the clock and as needed. Patient was started on intravenous steroids with gradual tapering down, which eventually were discontinued. Patient was started on empiric antibiotic. Patient was provided with inhalers: Spiriva and Advair. Patient was followed up with ABG , which revealed persistent hypercapnia. Celebrity Manager closely followed. D-dimer elevated 1.42. Venous duplex bilateral lower extremity revealed no evidence of acute DVT. CTA of the chest revealed no evidence of pulmonary embolism. Pulmonary hyperinflation with centrilobular emphysematous changes predominantly in the upper lung zones. DVT prophylaxis provided. Patient had a chronic respiratory failure for which Trilogy 100 noninvasive ventilator (EPAP 5, IPAP 12, 28%, RR 14) was medically necessary to prevent worsening CO2 retention and respiration failure and to prevent future readmissions. BiPAP had been ineffective. Trilogy was recommended upon discharge by loading machine tool setter. Bedside swallow evaluation revealed risk for silent aspiration. Diet provided as per speech therapist recommendations with strict aspiration/ reflux precaution . Infectious disease specialist followed. Blood cultures were negative. Patient status post treatment for left leg cellulitis. ID specialist recommended observe patietn off antibiotics. Director Records Management closely followed. Echocardiogram revealed preserved ejection fraction of 50-55%. No evidence of wall motion abnormality. No evidence of left ventricular hypertrophy. Moderate aortic regurgitation noted. Right ventricular systolic pressure of 80 consistent with severe pulmonary hypertension. Patient with severe bilateral lower extremity edema with proBNP 7500 . Edema was due to diastolic dysfunction. P Patient was on diuresis with IV Lasix with close monitoring of volumes and cardiorenal parameters. Troponin x3 were negative. Pro BNP trending down. Sammying Machine Operator followed. Hemoglobin and hematocrit were closely monitored with goal to keep hemoglobin above 7. Current hemoglobin was above 10 , no workup was required . Patient initially presented with thrombocytopenia, which resolved ,and prior to discharge platelet count 220. GI specialist closely follow. Hepatitis panel negative. Abdominal ultrasound revealed slightly increased renal echogenicity ,consistent with medical renal disease a and was negative for hydronephrosis. Ultrasound revealed no evidence of biliary dilatation. Liver demonstrated normal echogenicity. Per GI specialist , transaminitis was likely due to passive congestion. HSV , monoscreen and cytomegalovirus still pending. Oral fluids were pushed. LFT were trended, further manicuring as outpatient. Renal parameters and electrolytes were closely monitored. Electrolytes were corrected as needed. As mentioned above, imaging revealed mild kidney echogenicity consistent with medical renal disease. Acute kidney injury resolved, creatinine from initial 1.4 down to 0.9. Psychiatrist closely followed. Psychiatrist diagnosed patient with major depressive disorder. Patient started on Celexa. Reality orientation supportive therapy provided. Patient clinically stabilized. Trilogy was arranged and delivered to patient home. Patient was stable for discharge home with home health services to follow. Celebrity Manager recommended outpatient PFT and sleep study. FINAL DIAGNOSES: COPD exacerbation Chronic hypercapnic respiratory failure Pulmonary hypertension Left leg cellulitis Elevated d-dimer Severe bilateral pedal edema due to diastolic dysfunction CHF with diastolic dysfunction Acute on chronic renal failure Transaminitis Emphysema Major depressive disorder DISCHARGE MEDICATIONS: List of medication was sent with patient . DISCHARGE INSTRUCTIONS: Patient was discharged home with home health services. Follow up with primary care provider in one week. I have been assigned to dictate discharge summary for this account. I was not involved in the patient's management. Almita An NP Jun 17, 2018 11:09
--- NOTE | 2018-06-17 18:19 | General Progress Note ---
Assessment/Plan Problem List: (1) Major depressive disorder ICD Codes: F32.9 - Major depressive disorder, single episode, unspecified SNOMED: 780263101 Status: stable Assessment/Plan Celexa 20mg qam Provided st/ro Subjective Date patient seen: Jun 16, 2018 Neurologic/Psychiatric: Reports: anxiety, depressed Allergies: Coded Allergies: No Known Allergies (Unverified , 06/05/18) Subjective memory impairment Objective Intake and Output 06/16/18 06/17/18 19:00 07:00 Intake Total 250 ml Output Total 350 ml Balance -100 ml Intake Oral 250 ml Output Urine Total 350 ml Height (Feet): 5 Height (Inches): 8.00 Weight (Pounds): 115 General Appearance: alert Neurologic: oriented x 3, responsive, depressed affect Destiny Mares MD Jun 17, 2018 18:19
== END 2018-06-16 18:15 | disposition home or self-care (01) | DRG 191 ==
LOC: EDBD 06:26 → EMR 06:50 → EDBEDREQ 07:23 → 2W 07:40 → EDBEDREQ 09:22 → EDBEDREQSVC 10:44 → EDBEDREQ 10:44 → ICU 06-07 17:28 → 2W 06-09 10:55
DX: J44.1 Chronic obstructive pulmonary disease with (acute) exacerbation (principal); L03.116 Cellulitis of left lower limb; J96.12 Chronic respiratory failure with hypercapnia; N17.9 Acute kidney failure, unspecified; I50.30 Unspecified diastolic (congestive) heart failure; R64 Cachexia; Z68.1 Body mass index [BMI] 19.9 or less, adult; N18.9 Chronic kidney disease, unspecified; R00.0 Tachycardia, unspecified; R79.89 Other specified abnormal findings of blood chemistry; D64.9 Anemia, unspecified; Z99.81 Dependence on supplemental oxygen; F32.9 Major depressive disorder, single episode, unspecified; D69.6 Thrombocytopenia, unspecified; I27.20 Pulmonary hypertension, unspecified
CPT/HCPCS: 36415; 36600; 70450; 71045; 71275; 76700; 80048; 80053; 80061; 80202; 81003; 82248; 82550; 82553; 82803; 83605; 83735; 83880; 84100; 84443; 84484; 84550; 85007; 85025; 85379; 86140; 86308; 86695; 86705; 86709; 86803; 86850; 86870; 86900; 86901; 86904; 87040; 87081; 87340; 87496; 93005; 93306; 93970; 94640; 94660; 94664; 94760; 96361; 96365; 96375; 99285; J2405; J3490; J7620

== ENCOUNTER 2018-07-01 14:00 | Inpatient (IN) | payer MEDICARE ==
[~2018-07-01] VITALS: Ht 185.4 cm; Wt 63.5 kg
--- NOTE | 2018-07-01 14:01 | NUR ---
ED Nurse Note: Pt BIBA with reports of difficulty breathing/SOB for the past 3 weeks. Pt has hx of COPD and Asthma. Pt is on continuous O2 at home 4l/nc.
--- NOTE | 2018-07-01 14:02 | Emergency Room Report ---
History of Present Illness General Chief Complaint: Dyspnea/Respdistress Source: Patient Present Illness HPI Patient is a 72-year-old male brought in by EMS after increased difficulty breathing. Patient had prior history of COPD and normally uses home O2. Patient was noted to have increased difficulty breathing for the past 3 days worse with supine position. Patient had reportedly had increased difficulty breathing over the past few hours. He was noted to be taking inhalers. Patient had subsequently had increased difficulty breathing.Patient denies any chest discomfort at this time. He had not been vomiting. He denies any fever. Allergies: Coded Allergies: No Known Allergies (Unverified , 06/05/18) Patient History Past Medical History: see triage record Reviewed Nursing Documentation: PMH: Agreed; PSxH: Agreed Review of Systems All Other Systems: negative except mentioned in HPI Physical Exam Vital Signs Date Time Temp Pulse Resp B/P (MAP) Pulse Ox O2 Delivery O2 Flow Rate FiO2 07/01/18 13:52 99.0 82 20 116/84 94 Nasal Cannula 4.0 General Appearance: alert, GCS 15, moderate distress, Chronically Ill ENT: hearing grossly normal, normal pharynx Respiratory: other - decreased breath sounds Cardiovascular #1: normal inspection, normal peripheral pulses, no edema Gastrointestinal: normal inspection, non tender Musculoskeletal: normal inspection, back normal, gait/station normal Neurologic: normal inspection, alert, oriented x3, responsive, rock breaker III-XII nml as tested Psychiatric: normal inspection Medical Decision Making Diagnostic Impression: Primary Impression: COPD exacerbation Additional Impression: Hypoxia ER Course Patient presented for shortness of breath. Differential included but was not limited to anemia, pneumonia, pneumothorax, myocardial infarction, pericardial effusion, congestive heart failure, acidosis. Because of complexity of patient' s case laboratory testing and imaging studies were ordered.Patient was given breathing treatments as well as IV steroids. He started on supplemental oxygen. Chest x-ray 1 view interpreted by me showed normal cardiac size with tortuous aorta and bilateral emphysematous changes and hyperinflation. Patient was noted to have recent CT of his chest which showed similar findings Patient' s arterial blood gas showed compensated respiratory acidosis with elevated PCO2 and markedly elevated bicarbonate.Patient was noted to have improvement in his symptoms after breathing treatments. He continued to be hypoxic. Dr. Oskar Abdalla was contacted for inpatient management Labs Test 07/01/18 14:44 07/01/18 17:25 White Blood Count 7.1 K/UL (4.8-10.8) Red Blood Count 4.35 M/UL (4.70-6.10) Hemoglobin 12.8 G/DL (14.2-18.0) Hematocrit 41.6 % (42.0-52.0) Mean Corpuscular Volume 96 FL (80-99) Mean Corpuscular Hemoglobin 29.4 PG (27.0-31.0) Mean Corpuscular Hemoglobin Concent 30.8 G/DL (32.0-36.0) Red Cell Distribution Width 16.7 % (11.6-14.8) Platelet Count 182 K/UL (150-450) Mean Platelet Volume 5.9 FL (6.5-10.1) Neutrophils (%) (Auto) 73.1 % (45.0-75.0) Lymphocytes (%) (Auto) 12.4 % (20.0-45.0) Monocytes (%) (Auto) 9.4 % (1.0-10.0) Eosinophils (%) (Auto) 4.1 % (0.0-3.0) Basophils (%) (Auto) 1.0 % (0.0-2.0) Sodium Level 136 MMOL/L (136-145) Potassium Level 4.3 MMOL/L (3.5-5.1) Chloride Level 97 MMOL/L (98-107) Carbon Dioxide Level 38 MMOL/L (21-32) Anion Gap 1 mmol/L (5-15) Blood Urea Nitrogen 9 mg/dL (7-18) Creatinine 0.7 MG/DL (0.55-1.30) Estimat Glomerular Filtration Rate mL/min (>60) Glucose Level 92 MG/DL (74-106) Calcium Level 9.1 MG/DL (8.5-10.1) Total Bilirubin 0.3 MG/DL (0.2-1.0) Aspartate Amino Transf (AST/SGOT) 22 U/L (15-37) Alanine Aminotransferase (ALT/SGPT) 39 U/L (12-78) Alkaline Phosphatase 95 U/L (46-116) Troponin I 0.015 ng/mL (0.000-0.056) Total Protein 7.2 G/DL (6.4-8.2) Albumin 2.2 G/DL (3.4-5.0) Globulin 5.0 g/dL Albumin/Globulin Ratio 0.4 (1.0-2.7) Lipase 93 U/L (73-393) Thyroid Stimulating Hormone (TSH) 1.779 uiU/mL (0.358-3.740) Arterial Blood pH 7.434 (7.350-7.450) Arterial Blood Partial Pressure CO2 59.7 mmHg (35.0-45.0) Arterial Blood Partial Pressure O2 58.7 mmHg (75.0-100.0) Arterial Blood HCO3 39.1 mmol/L (22.0-26.0) Arterial Blood Oxygen Saturation 90.7 % (95-100) Arterial Blood Base Excess 12.6 (-2-2) Delon Test Positive Last Vital Signs Date Time Temp Pulse Resp B/P (MAP) Pulse Ox O2 Delivery O2 Flow Rate FiO2 07/01/18 13:52 99.0 82 20 116/84 94 Nasal Cannula 4.0 Status: improved Disposition: ADMITTED INPATIENT Condition: Stable Scripts No Active Prescriptions or Reported Meds Kolby Cabrera MD Jul 01, 2018 14:02
[2018-07-01 14:04] VITALS: BP 116/84
[2018-07-01] MEDS ORDERED: Solu-MEDROL 125mg Inj IVP ONE (14:15)
[2018-07-01] MEDS ORDERED: Albuterol/Ipratropium 3ml neb HHN ONE ×2 (14:15→15:45)
--- NOTE | 2018-07-01 14:40 | NUR ---
ED Nurse Note:\ son at bedside, per son, the past 2-3 days has been the worst for the sob
[2018-07-01 14:58] LABS: EOSINOPHILS % (AUTO) 4.1 % (0.0-3.0); HEMATOCRIT 41.6 % (42.0-52.0); HEMOGLOBIN 12.8 G/DL (14.2-18.0); LYMPHOCYTES % (AUTO) 12.4 % (20.0-45.0); MEAN CORPUSCULAR VOLUME 96 FL (80-99); MONOCYTES % (AUTO) 9.4 % (1.0-10.0); NEUTROPHILS % (AUTO) 73.1 % (45.0-75.0); PLATELET COUNT 182 K/UL (150-450); RED BLOOD COUNT 4.35 M/UL (4.70-6.10); RED CELL DISTRIBUTION WIDTH 16.7 % (11.6-14.8); WHITE BLOOD COUNT 7.1 K/UL (4.8-10.8)
--- NOTE | 2018-07-01 15:03 | NUR ---
ED Nurse Note: blood specimen collected and sent down.
[2018-07-01 15:06] LABS: ANION GAP 1 mmol/L (5-15); BLOOD UREA NITROGEN 9 mg/dL (7-18); CALCIUM 9.1 MG/DL (8.5-10.1); CARBON DIOXIDE 38 MMOL/L (21-32); CHLORIDE 97 MMOL/L (98-107); CREATININE 0.7 MG/DL (0.55-1.30); POTASSIUM 4.3 MMOL/L (3.5-5.1); SODIUM 136 MMOL/L (136-145)
[2018-07-01 15:18] LABS: ALANINE AMINOTRANSFERASE 39 U/L (12-78); ALBUMIN 2.2 G/DL (3.4-5.0); ALBUMIN/GLOBULIN RATIO 0.4 (1.0-2.7); ALKALINE PHOSPHATASE 95 U/L (46-116); ASPARTATE AMINO TRANSFERASE 22 U/L (15-37); BILIRUBIN,TOTAL 0.3 MG/DL (0.2-1.0)
--- NOTE | 2018-07-01 15:44 | NUR ---
ED Nurse Note: RT called for another breathing tx
--- NOTE | 2018-07-01 15:51 | NUR ---
ED Nurse Note: patient's bilateral legs have scar lesions - per pt, he had leg swellings and had blisters due to swelling, skin is intact and dry.
[2018-07-01 16:14] VITALS: BP 117/64
--- NOTE | 2018-07-01 19:19 | NUR ---
HAND-OFF: Report given to Marissa Jeffries RN.
--- NOTE | 2018-07-01 19:41 | NUR ---
ED Nurse Note: Left message for MD Dayanara for admitting orders while patient is waiting for unit bed; awaiting call back.
[2018-07-01 19:52] VITALS: BP 124/67
[2018-07-01] MEDS ORDERED: Albuterol/Ipratropium 3ml neb HHN PRN (20:15)
[2018-07-01] MEDS ORDERED: Azithromycin 250mg tab ORAL ONE (22:00)
[2018-07-01] MEDS ORDERED: Guaifenesin/DM 10ml syrup ORAL PRN (22:00)
--- NOTE | 2018-07-01 22:40 | NUR ---
ER Nurse Note: Pt a&ox4, VSS 2L NC at 95%. Pt is now on gurney. Pt asleep, calm, no signs of distress. Lung and heart sounds clear. Pt denies pain. Pt put foam dressing on back due to "being on a jack prominece"; no skin breakdown. In contact with MD for further orders. Awaitng room. Will continue to montior.
[2018-07-01 23:49] VITALS: BP 132/80
[2018-07-02] VITALS (7 sets, daily range): BP systolic 98–140; BP diastolic 56–87
--- NOTE | 2018-07-02 01:52 | NUR ---
ER Nurse Note: Pt calm, resting in bed, no signs of distress. Denies pain. IV patent and no signs of infiltration. Still awaiting room; will continue to montior.
--- NOTE | 2018-07-02 04:28 | NUR ---
ER Nurse Notes: Pt awake, calm, no signs of distress, VSS. No resp distress noted; lung sounds heard, O2 at 98% on 2L NC. AM labs sent, awaiting results. Will continue to montior.
[2018-07-02 05:08] LABS: HEMATOCRIT 34.2 % (42.0-52.0); HEMOGLOBIN 10.6 G/DL (14.2-18.0); MEAN CORPUSCULAR VOLUME 92 FL (80-99); PLATELET COUNT 240 K/UL (150-450); RED BLOOD COUNT 3.71 M/UL (4.70-6.10); RED CELL DISTRIBUTION WIDTH 15.9 % (11.6-14.8); WHITE BLOOD COUNT 6.6 K/UL (4.8-10.8)
[2018-07-02 05:10] LABS: ALANINE AMINOTRANSFERASE 36 U/L (12-78); ALBUMIN/GLOBULIN RATIO 0.4 (1.0-2.7); ALKALINE PHOSPHATASE 84 U/L (46-116); ANION GAP 1 mmol/L (5-15); ASPARTATE AMINO TRANSFERASE 18 U/L (15-37); BILIRUBIN,TOTAL 0.3 MG/DL (0.2-1.0); BLOOD UREA NITROGEN 13 mg/dL (7-18); CARBON DIOXIDE 38 MMOL/L (21-32); CHLORIDE 98 MMOL/L (98-107); CREATININE 0.7 MG/DL (0.55-1.30); POTASSIUM 4.9 MMOL/L (3.5-5.1); SODIUM 137 MMOL/L (136-145)
--- NOTE | 2018-07-02 07:10 | NUR ---
ER Nurse Note: Report given to GENNY Hurtado. Pt a&ox4, VSS, no signs of distress. Pt denies pain. Awaiting rooom and change of shift.
[2018-07-02] MEDS: Albuterol/Ipratropium 3ml neb HHN SCH ×4 (07:11→23:02)
--- NOTE | 2018-07-02 07:15 | NUR ---
ED Nurse Note: Received report from GENNY Ann. Pt vss, pt is resting. Pt shows now signs of distress. pt just received ordered breathing treament from RT.
--- NOTE | 2018-07-02 07:40 | NUR ---
ED Nurse Note: ATTEMPTED TO CALL TELE RECEVING NURSE. GENNY DOUGLAS ANSWERED AND WAS INFORMED RECEVING RN WAS UNABLE TO TAKE ENDORSEMENT AT THE MOMENT. WILL TRY AGAIN.
--- NOTE | 2018-07-02 07:50 | NUR ---
ED Nurse Note: CALLED TELE AND ATTEMPTED TO GIVE REPORT TO GENNY ALEXANDER. UNABLE TO GIVE REPORT.
--- NOTE | 2018-07-02 08:15 | NUR ---
ED Nurse Note: TELEPHONE REPORT GIVEN TO GENNY ALEXANDER. PT IS ACCOMPANIED BY GENNY HARRINGTON AND SEVERIANO EMT. PT IS ON CIAIO LUMITE INJECTOR WITH NORMAL SINUS RHYTHM, PT VSS, PT DENIES PAIN. ALL BELONGINGS WERE SENT HOME WITH SON JACLYN.
--- NOTE | 2018-07-02 08:40 | NUR ---
NURSE NOTES: Patient arrived to unit via hospital bed accompanied with RN from ED. Report received from GENNY Hurtado. Pt. is alert and oriented x 4 and verbally responsive. Denies pain at this time. Receiving 2L of oxygen via N/C with no distress noted. IV site intact and patent. Belongings checked with patient and RN. compliance monitor applied to the patient. Skin assessment done and photo taken. Bed in lowest position. Call light within reach. Will continue to monitor.
[2018-07-02] MEDS: guaiFENesin ER 600mg tab ORAL SCH ×2 (09:25→17:10)
[2018-07-02] MEDS: Azithromycin 250mg tab ORAL SCH (09:26)
--- NOTE | 2018-07-02 11:50 | Diagnostic Imaging Report ---
Indication: Dyspnea Comparison: 06/05/2018 A single view chest radiograph was obtained. Findings: Lungs are hyperexpanded. The heart is mildly enlarged and the aorta is enlarged. Bones are osteopenic. No infiltrates are identified. IMPRESSION: COPD. No change
--- NOTE | 2018-07-02 15:11 | Consultation ---
History of Present Illness General Date patient seen: Jul 02, 2018 Time patient seen: 15:05 Chief Complaint: Dyspnea/Respdistress Referring physician: Oskar Abdalla MD Reason for Consultation: COPD exacerbation Present Illness HPI 72 M former smoker ho COPD, CHF with mild DD, PH here in may, D/C'd home on a trilogy 100 ventilator and with home O2 BIB EMS with SOB and wheezing x 3 days + cough + congestion no FC, no CP no NVDC. He has been using his O2 and vent as directed but states he has not been using any inhalers. He has been living at home and denies any current SOL use. Allergies: Coded Allergies: No Known Allergies (Unverified , 06/05/18) Medication History No Active Prescriptions or Reported Meds Patient History History Provided By: Patient Healthcare decision maker Resuscitation status Full Code Advanced Directive on File No Past Medical/Surgical History Past Medical/Surgical History: (1) COPD exacerbation (2) Chronic hypercapnic respiratory failure (3) Major depressive disorder (4) Pulmonary hypertension Social History Social History: (1) Former smoker Review of Systems Constitutional: Reports: no symptoms Eye: Reports: no symptoms ENT: Reports: no symptoms Respiratory: Reports: cough, shortness of breath, wheezing, ROSS, sputum Cardiovascular: Reports: no symptoms Gastrointestinal: Reports: no symptoms Genitourinary: Reports: no symptoms Musculoskeletal: Reports: no symptoms Skin: Reports: no symptoms Psychiatric: Reports: no symptoms Neurological: Reports: no symptoms Endocrine: Reports: no symptoms Hematologic/Lymphatic: Reports: no symptoms Physical Exam General Appearance: WD/WN, no apparent distress, alert Lines, tubes and drains: peripheral HEENT: normocephalic, atraumatic, anicteric, mucous membranes moist Neck: non-tender, normal alignment, supple, normal inspection Respiratory/Chest: chest wall non-tender, rhonchi - bilaterally Cardiovascular/Chest: normal peripheral pulses, normal rate, regular rhythm Abdomen: normal bowel sounds, non tender, soft, no organomegaly, no mass Extremities: no edema Last 24 Hour Vital Signs Date Time Temp Pulse Resp B/P (MAP) Pulse Ox O2 Delivery O2 Flow Rate FiO2 07/02/18 13:47 77 18 100 Nasal Cannula 2.0 28 07/02/18 13:38 28 07/02/18 13:38 76 18 95 Nasal Cannula 2.0 28 07/02/18 12:00 75 07/02/18 11:52 97.6 84 20 140/85 (103) 91 07/02/18 11:01 Nasal Cannula 2.0 07/02/18 09:00 96.8 86 20 119/75 (90) 93 07/02/18 08:50 85 07/02/18 08:15 96 27 125/87 100 Room Air 2.0 07/02/18 08:00 98.9 96 19 125/87 100 Nasal Cannula 2.0 28 07/02/18 07:22 80 18 100 Nasal Cannula 2.0 28 07/02/18 07:12 74 18 97 Nasal Cannula 2.0 28 07/02/18 07:12 28 07/02/18 07:00 98.9 98 23 120/87 98 Nasal Cannula 2.0 40 07/02/18 03:28 98.9 78 20 118/76 98 Nasal Cannula 2.0 40 07/02/18 02:20 Nasal Cannula 2.0 07/01/18 23:49 98.8 73 22 132/80 99 Nasal Cannula 2.0 07/01/18 19:52 98.9 79 22 124/67 98 Nasal Cannula 2.0 40 07/01/18 16:14 99.0 80 25 117/64 99 Nasal Cannula 2.0 07/01/18 15:54 88 22 100 Simple Mask 5.0 40 07/01/18 15:50 87 20 98 Simple Mask 5.0 40 07/01/18 15:50 40 Laboratory Tests Test 07/01/18 17:25 07/02/18 04:00 07/02/18 04:30 Arterial Blood pH 7.434 (7.350-7.450) Arterial Blood Partial Pressure CO2 59.7 mmHg (35.0-45.0) *H Arterial Blood Partial Pressure O2 58.7 mmHg (75.0-100.0) L Arterial Blood HCO3 39.1 mmol/L (22.0-26.0) H Arterial Blood Oxygen Saturation 90.7 % (95-100) L Arterial Blood Base Excess 12.6 (-2-2) *H Delon Test Positive White Blood Count 6.6 K/UL (4.8-10.8) Red Blood Count 3.71 M/UL (4.70-6.10) L Hemoglobin 10.6 G/DL (14.2-18.0) L Hematocrit 34.2 % (42.0-52.0) L Mean Corpuscular Volume 92 FL (80-99) Mean Corpuscular Hemoglobin 28.6 PG (27.0-31.0) Mean Corpuscular Hemoglobin Concent 31.1 G/DL (32.0-36.0) L Red Cell Distribution Width 15.9 % (11.6-14.8) H Platelet Count 240 K/UL (150-450) Mean Platelet Volume 5.7 FL (6.5-10.1) L Neutrophils (%) (Auto) % (45.0-75.0) Lymphocytes (%) (Auto) % (20.0-45.0) Monocytes (%) (Auto) % (1.0-10.0) Eosinophils (%) (Auto) % (0.0-3.0) Basophils (%) (Auto) % (0.0-2.0) Sodium Level 137 MMOL/L (136-145) Potassium Level 4.9 MMOL/L (3.5-5.1) Chloride Level 98 MMOL/L (98-107) Carbon Dioxide Level 38 MMOL/L (21-32) H Anion Gap 1 mmol/L (5-15) L Blood Urea Nitrogen 13 mg/dL (7-18) Creatinine 0.7 MG/DL (0.55-1.30) Estimat Glomerular Filtration Rate mL/min (>60) Glucose Level 124 MG/DL (74-106) H Calcium Level 9.0 MG/DL (8.5-10.1) Total Bilirubin 0.3 MG/DL (0.2-1.0) Aspartate Amino Transf (AST/SGOT) 18 U/L (15-37) Alanine Aminotransferase (ALT/SGPT) 36 U/L (12-78) Alkaline Phosphatase 84 U/L (46-116) Total Protein 6.7 G/DL (6.4-8.2) Albumin 2.0 G/DL (3.4-5.0) L Globulin 4.7 g/dL Albumin/Globulin Ratio 0.4 (1.0-2.7) L D-Dimer 1.12 mg/L FEU (0.00-0.49) H Microbiology Date/Time Source Procedure Growth Status 07/02/18 04:00 Nasal Nares Influenza Types A,B Antigen (NAHED) - Final Complete Height (Feet): 6 Height (Inches): 1.00 Weight (Pounds): 189 Medications Current Medications Medications (Trade) Dose Ordered Sig/Brittani Route PRN Reason Start Time Stop Time Status Last Admin Dose Admin Albuterol/ Ipratropium (Albuterol/ Ipratropium) 3 ml Q4H PRN HHN Shortness of Breath 07/01/18 20:15 07/06/18 20:14 Albuterol/ Ipratropium (Albuterol/ Ipratropium) 3 ml Q6HRT HHN 07/02/18 07:00 07/07/18 06:59 07/02/18 13:47 Azithromycin (Zithromax) 250 mg DAILY ORAL 07/02/18 09:00 07/09/18 08:59 07/02/18 09:26 Dextrose (Dextrose 50%) 25 ml Q30M PRN IV Hypoglycemia 07/01/18 20:15 07/31/18 20:14 Dextrose (Dextrose 50%) 50 ml Q30M PRN IV Hypoglycemia 07/01/18 20:15 07/31/18 20:14 Guaifenesin (Mucinex ER) 600 mg TWICE A DAY ORAL 07/02/18 09:00 08/01/18 08:59 07/02/18 09:25 Guaifenesin/ Dextromethorphan (Robitussin DM Syrup) 5 ml Q4H PRN ORAL For Cough 07/01/18 22:00 07/31/18 21:59 Assessment/Plan Problem List: (1) COPD exacerbation ICD Codes: J44.1 - Chronic obstructive pulmonary disease with (acute) exacerbation SNOMED: 664374517 (2) Chronic hypercapnic respiratory failure ICD Codes: J96.12 - Chronic respiratory failure with hypercapnia SNOMED: 862557242 (3) Pulmonary hypertension ICD Codes: I27.20 - Pulmonary hypertension, unspecified SNOMED: 12498412 (4) Hypoxia ICD Codes: R09.02 - Hypoxemia SNOMED: 404473068 (5) Elevated d-dimer ICD Codes: R79.89 - Other specified abnormal findings of blood chemistry SNOMED: 731867845 Assessment/Plan Optimize pulmonary hygiene/mobilize as tolerated PRN O2 to keep SaO2 > 90% BiPAP 12/5 qHS - has a TRILOGY 100 @ home Start Advair & Spiriva - needs Rx's on discharge RTC and PRN DUOnebs Pred 40 (D2/5) Azithro (D2/5) F/U sputum Cx Monitor volumes and renal function Needs outpatient follow up: PFT, PSG, consideration for RHC FC Continue to abstain from smoking Jason Pinedo MD Jul 02, 2018 15:11
--- NOTE | 2018-07-02 17:30 | NUR ---
NURSE NOTES: Patient refused venous and arterial duplex at this time. Pt. stated that he will do it tomorrow morning. Will attempt tomorrow again.
--- NOTE | 2018-07-02 17:58 | NUR ---
CASE MANAGEMENT:REVIEW FROM HOME TO ER CC: SOB X3 WEEKS PMH: ON O2 AT HOME SI: COPD EXACERBATION 99.0 82 20 116/84 94% ON 4L/NC PCO2+59.7 PO2-58.7 IS: DUONEB HHN IV SOLUMEDROL AZITHROMYCIN PO X1 : TO TELEMETRY INTERQUAL CRITERIA MET
[2018-07-02] MEDS: Advair 250/50 Inhaler - 14 dose INH SCH (18:00)
--- NOTE | 2018-07-02 18:15 | Consultation ---
DATE OF CONSULTATION: 07/02/2018 INFECTIOUS DISEASE CONSULTATION CONSULTING PHYSICIAN: William Avalos M.D. PRIMARY ATTENDING PHYSICIAN: Oskar Nichole M.D. REASON FOR CONSULT: COPD exacerbation. HISTORY OF PRESENT ILLNESS: This is a 72-year-old male admitted yesterday complaining of shortness of breath that increased in last three days. According to his son, he has some runny nose and upper respiratory symptoms. He has no fever and no productive cough. PAST MEDICAL HISTORY: Significant for COPD. The patient has a recent history of admission with COPD exacerbation in May 2018. He had recent history of cellulitis of legs. He has chronic hypercapnic respiratory failure, states he cannot tolerate CPAP at home. He has major depression. ALLERGIES: No known drug allergies. MEDICATIONS: Azithromycin, albuterol and ipratropium. He got a dose of methylprednisone in the ER. SOCIAL HISTORY: He lives at home with son. He stopped smoking two years ago. Denies alcohol or drug abuse. REVIEW OF SYSTEMS: No fever. No chills. Shortness of breath. No significant coughing. No nausea. No vomiting. Appetite is good. No problem passing urine. PHYSICAL EXAMINATION: VITAL SIGNS: Temperature 97.6, pulse 84, and blood pressure 140/85. GENERAL APPEARANCE: No acute distress. Seems to be thin and cachectic. HEAD AND NECK: Nesbitt conjunctivae. HEART: Normal rate. LUNGS: Decreased expansion of lungs, but seems mostly clear. ABDOMEN: Soft, nontender. EXTREMITIES: Healing ulcers and lower extremity edema that was present in the previous admission has resolved. LABORATORY AND DIAGNOSTIC DATA: WBC 6.6, hemoglobin 10.6, hematocrit 34.2, and platelets 240,000. Sodium 137, potassium 4.9, chloride 98, bicarb 30, BUN 30, and creatinine 0.7. ABG showed pH of 7.44, pCO2 59.7, pO2 58.7, O2 saturation 90%. Influenza A and B negative. Chest x-ray shows COPD. No significant change from previous chest x-ray. IMPRESSION: 1. Chronic obstructive pulmonary disease exacerbation. 2. Hypercapnic hypoxic respiratory failure that seems to be chronic. 3. Major depression. 4. Anemia. 5. Likely upper respiratory illness. RECOMMENDATION: Continue with Zithromax. We will follow up the patient. We will follow up with the pulmonary disease evaluation. At the end of my exam, I thank Dr. Nichole for involving me in the care of this patient. William Avalos M.D. DR: FAITH JOB#: [id number] CC:
--- NOTE | 2018-07-02 19:32 | NUR ---
HAND-OFF: Report given to GENNY Hooper. Stable condition.
--- NOTE | 2018-07-02 19:35 | NUR ---
NURSE NOTES: Received report from GENNY Vazquez. Patient resting in bed with no signs of acute distress. No SOB, respiration even and non labored on 2L nc. Vitals stable. Bed in lowest position. Call light within reach. Will continue plan of care.
[2018-07-03] VITALS: BP 93/54
--- NOTE | 2018-07-03 02:30 | History and Physical Report ---
DATE OF ADMISSION: 07/01/2018 HISTORY OF PRESENT ILLNESS: The patient is admitted for COPD exacerbation. He has been complaining of increased shortness of breath, admitted for COPD exacerbation. CT scan done in May showed central lobar emphysema and small right effusion. The patient denies nausea, vomiting, or diarrhea. Denies chest pain. Denies orthopnea. Denies fever or chills. PAST MEDICAL HISTORY: Significant for COPD, elevated D-dimer, pulmonary hypertension, and depression. PAST SURGICAL HISTORY: None known. SOCIAL HISTORY: History of smoking. Denies alcohol or illicit drugs. REVIEW OF SYSTEMS: HEENT: Denies headaches. RESPIRATORY: Shortness of breath and occasional cough. CARDIOVASCULAR: Denies chest pain. GASTROINTESTINAL: Denies any nausea, vomiting, or diarrhea. EXTREMITIES: Denies pain in lower extremities. CENTRAL NERVOUS SYSTEM: Denies change in vision or speech pattern. PHYSICAL EXAMINATION: VITAL SIGNS: Temperature 97.6 degrees, pulse is 84, and blood pressure 140/85. HEENT: PERRLA. NECK: Supple. CHEST: Bibasilar wheezing. CARDIOVASCULAR: Regular rate and rhythm. ABDOMEN: Soft. Positive bowel sounds. No organomegaly. EXTREMITIES: 1+ edema. NEUROLOGIC: Reflexes equal on both sides. LABORATORY DATA: WBC of 7.1, hemoglobin 12.8, and platelet 182,000. Sodium 136, potassium 4.3, BUN of 9, and creatinine of 0.7. ASSESSMENT: 1. Chronic obstructive pulmonary disease exacerbation. We will give DuoNeb breathing treatments. 2. Shortness of breath. PLAN: I have asked Dr. Pinedo, Dr. William Avalos and Dr. Salmon to see the patient for elevated CO2 and also to rule out pneumonia as well as COPD exacerbation. Oskar Nichole M.D. DR: KATHARINE JOB#: [id number] CC:
[2018-07-03 04:00] VITALS: BP 119/75
--- NOTE | 2018-07-03 07:08 | NUR ---
HAND-OFF: Report given to GENNY Mora. Patient in bed asleep with no signs of acute distress. Vital signs stable.
--- NOTE | 2018-07-03 07:15 | NUR ---
NURSE NOTES: I received the patient resting in bed. Patient does not display any signs of distress or SOB. Bed in the lowest position and call light within reach.
[2018-07-03] MEDS: Albuterol/Ipratropium 3ml neb HHN SCH ×3 (07:46→20:23)
[2018-07-03 08:00] VITALS: BP 123/23
[2018-07-03] MEDS: Azithromycin 250mg tab ORAL SCH (08:03)
[2018-07-03] MEDS: guaiFENesin ER 600mg tab ORAL SCH ×2 (08:04→17:18)
[2018-07-03] MEDS: Advair 250/50 Inhaler - 14 dose INH SCH ×2 (09:29→20:23)
--- NOTE | 2018-07-03 11:03 | Cardiac Electrophysiology PN ---
Subjective Subjective [id number] Objective Last 24 Hour Vital Signs Date Time Temp Pulse Resp B/P (MAP) Pulse Ox O2 Delivery O2 Flow Rate FiO2 07/03/18 09:29 78 18 97 Nasal Cannula 2.0 28 07/03/18 09:29 78 18 97 Nasal Cannula 2.0 28 07/03/18 09:00 Nasal Cannula 2.0 07/03/18 08:00 98.6 76 20 123/23 (56) 100 07/03/18 07:59 89 07/03/18 07:58 80 18 98 Nasal Cannula 2.0 28 07/03/18 07:46 79 18 97 Nasal Cannula 2.0 28 07/03/18 04:00 80 07/03/18 04:00 98.0 79 17 119/75 (90) 96 07/03/18 03:40 Nasal Cannula 2.0 28 07/03/18 03:40 Nasal Cannula 2.0 28 07/03/18 00:00 80 07/03/18 00:00 97.9 86 20 93/54 (67) 99 07/02/18 23:19 81 18 98 Nasal Cannula 2.0 28 07/02/18 23:03 75 18 97 Nasal Cannula 2.0 28 07/02/18 21:00 Nasal Cannula 2.0 07/02/18 20:00 89 07/02/18 20:00 98.2 77 18 98/56 (70) 95 07/02/18 19:00 Nasal Cannula 2.0 28 07/02/18 19:00 Nasal Cannula 2.0 28 07/02/18 16:00 97.8 81 20 104/68 (80) 92 07/02/18 16:00 85 07/02/18 13:47 77 18 100 Nasal Cannula 2.0 28 07/02/18 13:38 28 07/02/18 13:38 76 18 95 Nasal Cannula 2.0 28 07/02/18 12:00 75 07/02/18 11:52 97.6 84 20 140/85 (103) 91 Intake and Output 07/02/18 07/03/18 19:00 07:00 Output Total 350 ml 550 ml Balance -350 ml -550 ml Output Urine Total 350 ml 550 ml # Voids 1 # Bowel Movements 1 Microbiology Date/Time Source Procedure Growth Status 07/02/18 04:00 Nasal Nares Influenza Types A,B Antigen (NAHED) - Final Complete Lv Campbell MD Jul 03, 2018 11:03
[2018-07-03 11:51] VITALS: BP 116/65
--- NOTE | 2018-07-03 12:29 | Infectious Diseases Prog Note ---
Assessment/Plan Assessment/Plan A: 1. Chronic obstructive pulmonary disease exacerbation. 2. Hypercapnic hypoxic respiratory failure that seems to be chronic. 3. Major depression. 4. Anemia. 5. Likely upper respiratory illness. RECOMMENDATION: 1.Continue with Zithromax Subjective ROS Limited/Unobtainable: No Constitutional: Reports: no symptoms Respiratory: Reports: shortness of breath Cardiovascular: Reports: no symptoms Gastrointestinal/Abdominal: Reports: no symptoms Genitourinary: Reports: no symptoms Allergies: Coded Allergies: No Known Allergies (Unverified , 06/05/18) Objective Vital Signs Last 24 Hour Vital Signs Date Time Temp Pulse Resp B/P (MAP) Pulse Ox O2 Delivery O2 Flow Rate FiO2 07/03/18 11:51 98.3 83 20 116/65 (82) 94 07/03/18 09:29 78 18 97 Nasal Cannula 2.0 28 07/03/18 09:29 78 18 97 Nasal Cannula 2.0 28 07/03/18 09:00 Nasal Cannula 2.0 07/03/18 08:00 98.6 76 20 123/23 (56) 100 07/03/18 07:59 89 07/03/18 07:58 80 18 98 Nasal Cannula 2.0 28 07/03/18 07:46 79 18 97 Nasal Cannula 2.0 28 07/03/18 04:00 80 07/03/18 04:00 98.0 79 17 119/75 (90) 96 07/03/18 03:40 Nasal Cannula 2.0 28 07/03/18 03:40 Nasal Cannula 2.0 28 07/03/18 00:00 80 07/03/18 00:00 97.9 86 20 93/54 (67) 99 07/02/18 23:19 81 18 98 Nasal Cannula 2.0 28 07/02/18 23:03 75 18 97 Nasal Cannula 2.0 28 07/02/18 21:00 Nasal Cannula 2.0 07/02/18 20:00 89 07/02/18 20:00 98.2 77 18 98/56 (70) 95 07/02/18 19:00 Nasal Cannula 2.0 28 07/02/18 19:00 Nasal Cannula 2.0 28 07/02/18 16:00 97.8 81 20 104/68 (80) 92 07/02/18 16:00 85 07/02/18 13:47 77 18 100 Nasal Cannula 2.0 28 07/02/18 13:38 28 07/02/18 13:38 76 18 95 Nasal Cannula 2.0 28 Height (Feet): 6 Height (Inches): 1.00 Weight (Pounds): 189 HEENT: mucous membranes moist Respiratory/Chest: decreased breath sounds, other - decreased expansion Cardiovascular: normal rate Abdomen: soft, non tender Extremities: no edema Neurologic/Psychiatric: alert, oriented x 3, responsive Microbiology Date/Time Source Procedure Growth Status 07/02/18 04:00 Nasal Nares Influenza Types A,B Antigen (NAHED) - Final Complete Laboratory Tests Test 07/03/18 11:00 Troponin I 0.022 ng/mL (0.000-0.056) Current Medications Medications (Trade) Dose Ordered Sig/Brittani Route PRN Reason Start Time Stop Time Status Last Admin Dose Admin Albuterol/ Ipratropium (Albuterol/ Ipratropium) 3 ml Q4H PRN HHN Shortness of Breath 07/01/18 20:15 07/06/18 20:14 Albuterol/ Ipratropium (Albuterol/ Ipratropium) 3 ml Q6HRT HHN 07/02/18 07:00 07/07/18 06:59 07/03/18 07:46 Azithromycin (Zithromax) 250 mg DAILY ORAL 07/02/18 09:00 07/09/18 08:59 07/03/18 08:03 Dextrose (Dextrose 50%) 25 ml Q30M PRN IV Hypoglycemia 07/01/18 20:15 07/31/18 20:14 Dextrose (Dextrose 50%) 50 ml Q30M PRN IV Hypoglycemia 07/01/18 20:15 07/31/18 20:14 Guaifenesin (Mucinex ER) 600 mg TWICE A DAY ORAL 07/02/18 09:00 08/01/18 08:59 07/03/18 08:04 Guaifenesin/ Dextromethorphan (Robitussin DM Syrup) 5 ml Q4H PRN ORAL For Cough 07/01/18 22:00 07/31/18 21:59 Salmeterol Xinafoate/ Fluticasone (Advair 250/50 Diskus) 1 puffs BID INH 07/02/18 18:00 08/01/18 17:59 07/03/18 09:29 Tiotropium [place] (Spiriva Inhaler) 1 puff DAILY INH 07/03/18 09:00 08/02/18 08:59 07/03/18 09:29 William Avalos MD Jul 03, 2018 12:29
[2018-07-03 16:00] VITALS: BP 106/67
--- NOTE | 2018-07-03 16:52 | Pulmonology Progress Note ---
Assessment/Plan Problems: (1) COPD exacerbation (2) Chronic hypercapnic respiratory failure (3) Pulmonary hypertension (4) Hypoxia (5) Elevated d-dimer Assessment/Plan Optimize pulmonary hygiene/mobilize as tolerated PRN O2 to keep SaO2 > 90% BiPAP 05/23 qHS - has a TRILOGY 100 @ home - ENCOURAGE COMPLIANCE Continue Advair & Spiriva - needs Rx's on discharge RTC and PRN DUOnebs Pred 40 (D3/) Azithro (D3/5) F/U sputum Cx Monitor volumes and renal function Needs outpatient follow up: PFT, PSG, consideration for RHC FC Continue to abstain from smoking Subjective Allergies: Coded Allergies: No Known Allergies (Unverified , 06/05/18) Subjective AFVSS on 2L Less cough less SOB no wheezing no F/C no CP Objective Last 24 Hour Vital Signs Date Time Temp Pulse Resp B/P (MAP) Pulse Ox O2 Delivery O2 Flow Rate FiO2 07/03/18 16:00 97.5 81 20 106/67 (80) 97 07/03/18 15:48 71 07/03/18 13:29 77 18 98 Nasal Cannula 2.0 28 07/03/18 13:29 80 18 100 Nasal Cannula 2.0 28 07/03/18 11:52 70 07/03/18 11:51 98.3 83 20 116/65 (82) 94 07/03/18 09:29 78 18 97 Nasal Cannula 2.0 28 07/03/18 09:29 78 18 97 Nasal Cannula 2.0 28 07/03/18 09:00 Nasal Cannula 2.0 07/03/18 08:00 98.6 76 20 123/23 (56) 100 07/03/18 07:59 89 07/03/18 07:58 80 18 98 Nasal Cannula 2.0 28 07/03/18 07:46 79 18 97 Nasal Cannula 2.0 28 07/03/18 04:00 80 07/03/18 04:00 98.0 79 17 119/75 (90) 96 07/03/18 03:40 Nasal Cannula 2.0 28 07/03/18 03:40 Nasal Cannula 2.0 28 07/03/18 00:00 80 07/03/18 00:00 97.9 86 20 93/54 (67) 99 07/02/18 23:19 81 18 98 Nasal Cannula 2.0 28 07/02/18 23:03 75 18 97 Nasal Cannula 2.0 28 07/02/18 21:00 Nasal Cannula 2.0 07/02/18 20:00 89 07/02/18 20:00 98.2 77 18 98/56 (70) 95 07/02/18 19:00 Nasal Cannula 2.0 28 07/02/18 19:00 Nasal Cannula 2.0 28 Intake and Output 07/02/18 07/03/18 19:00 07:00 Output Total 350 ml 550 ml Balance -350 ml -550 ml Output Urine Total 350 ml 550 ml # Voids 1 # Bowel Movements 1 General Appearance: WD/WN, no acute distress HEENT: normocephalic, atraumatic, anicteric, mucous membranes moist Respiratory/Chest: chest wall non-tender, lungs clear, normal breath sounds, no respiratory distress, no accessory muscle use Cardiovascular: normal peripheral pulses, normal rate, regular rhythm Abdomen: normal bowel sounds, soft, non tender, no organomegaly, non distended , no mass Extremities: no cyanosis, no clubbing, no edema Microbiology Date/Time Source Procedure Growth Status 07/02/18 04:00 Nasal Nares Influenza Types A,B Antigen (NAHED) - Final Complete Laboratory Tests 07/03/18 11:00: Troponin I 0.022 Current Medications Medications (Trade) Dose Ordered Sig/Brittani Route PRN Reason Start Time Stop Time Status Last Admin Dose Admin Albuterol/ Ipratropium (Albuterol/ Ipratropium) 3 ml Q4H PRN HHN Shortness of Breath 07/01/18 20:15 07/06/18 20:14 Albuterol/ Ipratropium (Albuterol/ Ipratropium) 3 ml Q6HRT HHN 07/02/18 07:00 07/07/18 06:59 07/03/18 13:29 Azithromycin (Zithromax) 250 mg DAILY ORAL 07/02/18 09:00 07/09/18 08:59 07/03/18 08:03 Dextrose (Dextrose 50%) 25 ml Q30M PRN IV Hypoglycemia 07/01/18 20:15 07/31/18 20:14 Dextrose (Dextrose 50%) 50 ml Q30M PRN IV Hypoglycemia 07/01/18 20:15 07/31/18 20:14 Guaifenesin (Mucinex ER) 600 mg TWICE A DAY ORAL 07/02/18 09:00 08/01/18 08:59 07/03/18 08:04 Guaifenesin/ Dextromethorphan (Robitussin DM Syrup) 5 ml Q4H PRN ORAL For Cough 07/01/18 22:00 07/31/18 21:59 Salmeterol Xinafoate/ Fluticasone (Advair 250/50 Diskus) 1 puffs BID INH 07/02/18 18:00 08/01/18 17:59 07/03/18 09:29 Tiotropium [place] (Spiriva Inhaler) 1 puff DAILY INH 07/03/18 09:00 08/02/18 08:59 07/03/18 09:29 Jason Pinedo MD Jul 03, 2018 16:52
--- NOTE | 2018-07-03 17:15 | Cardiology Report ---
APPROVED REPORT EXAM: Two-dimensional and M-mode echocardiogram with Doppler and color Doppler. M-Mode DIMENSIONS IVSd1.6 (0.7-1.1cm)Left Atrium (MM)2.4 (1.6-4.0cm) LVDd4.0 (3.5-5.6cm)Aortic Root3.0 (2.0-3.7cm) PWd1.1 (0.7-1.1cm)Aortic Cusp Exc.1.8 (1.5-2.0cm) IVSs2.1 cm LVDs2.3 (2.5-4.0cm) PWs1.0 cm Normal left ventricular chamber size, systolic function and wall motion . Left ventricular ejection fraction estimated to be 60-65%. Mild left ventricular hypertrophy by2-D. No evidence of pericardial effusion. Left atrial size is within normal limits . Right atrial sizes is enlarged Right ventricular chamber size is normal but mildly hypokinetic Mild aortic valve sclerosis with adequate cusp excursion. Mildly thickened mitral valve leaflets with normal excursion. Mild mitral annulus and aortic root calcification. Valvular study not well visualized . Pulmonic valve not well visualized. IVC at size 2.2 cm with physiologic collapse. A color flow and spectral Doppler study was performed and revealed: Mild aortic regurgitation. Mitral diastolic velocities suggest reduced left ventricular relaxation c/w mild LV diastolic dysfunction (Grade I ) Trace mitral regurgitation. Moderate tricuspid regurgitation. Tricuspid systolic velocities suggests peak right ventricular systolic pressure of 65mmHg, consistent with severe severe pulmonary hypertension . pulmonic regurgitation present .
--- NOTE | 2018-07-03 19:21 | NUR ---
HAND-OFF: Report given to GENNY Hopper.
--- NOTE | 2018-07-03 19:22 | NUR ---
NURSE NOTES: Received report from Elisabeth Montalvo RN. Pt is resting w/o distress in 2L NC, is able to make needs known. A&O x4. Safety measures are applied w/ bed in lowest position, side rails up x2, and breaks are engaged. Call light and side table are w/in reach. Will follow plans of care.
[2018-07-03 20:00] VITALS: BP 121/71
[2018-07-03] MEDS: Heparin 5000 units/ml inj SUBQ SCH (21:00)
--- NOTE | 2018-07-03 21:06 | Consultation ---
History of Present Illness General Date patient seen: Jul 04, 2018 Chief Complaint: Dyspnea/Respdistress Referring physician: Oskar Abdalla MD Reason for Consultation: COPD exacerbation Present Illness Allergies: Coded Allergies: No Known Allergies (Unverified , 06/05/18) Medication History No Active Prescriptions or Reported Meds Patient History Healthcare decision maker Resuscitation status Full Code Advanced Directive on File No Physical Exam Last 24 Hour Vital Signs Date Time Temp Pulse Resp B/P (MAP) Pulse Ox O2 Delivery O2 Flow Rate FiO2 07/03/18 16:00 97.5 81 20 106/67 (80) 97 07/03/18 15:48 71 07/03/18 13:29 77 18 98 Nasal Cannula 2.0 28 07/03/18 13:29 80 18 100 Nasal Cannula 2.0 28 07/03/18 11:52 70 07/03/18 11:51 98.3 83 20 116/65 (82) 94 07/03/18 09:29 78 18 97 Nasal Cannula 2.0 28 07/03/18 09:29 78 18 97 Nasal Cannula 2.0 28 07/03/18 09:00 Nasal Cannula 2.0 07/03/18 08:00 98.6 76 20 123/23 (56) 100 07/03/18 07:59 89 07/03/18 07:58 80 18 98 Nasal Cannula 2.0 28 07/03/18 07:46 79 18 97 Nasal Cannula 2.0 28 07/03/18 04:00 80 07/03/18 04:00 98.0 79 17 119/75 (90) 96 07/03/18 03:40 Nasal Cannula 2.0 28 07/03/18 03:40 Nasal Cannula 2.0 28 07/03/18 00:00 80 07/03/18 00:00 97.9 86 20 93/54 (67) 99 07/02/18 23:19 81 18 98 Nasal Cannula 2.0 28 07/02/18 23:03 75 18 97 Nasal Cannula 2.0 28 07/02/18 21:00 Nasal Cannula 2.0 Intake and Output 07/02/18 07/03/18 19:00 07:00 Output Total 350 ml 550 ml Balance -350 ml -550 ml Output Urine Total 350 ml 550 ml # Voids 1 # Bowel Movements 1 Laboratory Tests Test 07/03/18 11:00 Troponin I 0.022 ng/mL (0.000-0.056) Height (Feet): 6 Height (Inches): 1.00 Weight (Pounds): 189 Medications Current Medications Medications (Trade) Dose Ordered Sig/Brittani Route PRN Reason Start Time Stop Time Status Last Admin Dose Admin Albuterol/ Ipratropium (Albuterol/ Ipratropium) 3 ml Q4H PRN HHN Shortness of Breath 07/01/18 20:15 07/06/18 20:14 Albuterol/ Ipratropium (Albuterol/ Ipratropium) 3 ml Q6HRT HHN 07/02/18 07:00 07/07/18 06:59 07/03/18 20:23 Azithromycin (Zithromax) 250 mg DAILY ORAL 07/02/18 09:00 07/09/18 08:59 07/03/18 08:03 Dextrose (Dextrose 50%) 25 ml Q30M PRN IV Hypoglycemia 07/01/18 20:15 07/31/18 20:14 Dextrose (Dextrose 50%) 50 ml Q30M PRN IV Hypoglycemia 07/01/18 20:15 07/31/18 20:14 Guaifenesin (Mucinex ER) 600 mg TWICE A DAY ORAL 07/02/18 09:00 08/01/18 08:59 07/03/18 17:18 Guaifenesin/ Dextromethorphan (Robitussin DM Syrup) 5 ml Q4H PRN ORAL For Cough 07/01/18 22:00 07/31/18 21:59 Heparin Sodium (Porcine) (Heparin 5000 units/ml) 5,000 units EVERY 12 HOURS SUBQ 07/03/18 21:00 08/02/18 20:59 Salmeterol Xinafoate/ Fluticasone (Advair 250/50 Diskus) 1 puffs BID INH 07/02/18 18:00 08/01/18 17:59 07/03/18 20:23 Tiotropium [place] (Spiriva Inhaler) 1 puff DAILY INH 07/03/18 09:00 08/02/18 08:59 07/03/18 09:29 Assessment/Plan Assessment/Plan Hematology/Oncology Consultation Date of Service: 07/03/18 Referring physician: Oskar Abdalla MD Reason for Consultation: COPD exacerbation HPI: This is a 72-years old male who was admitted with SOB and wheezing x 3 days with cough and congestion. Patient sates that he has been using his O2 and vent as directed but states he has not been using any inhalers. The patient denies nausea, vomiting, or diarrhea. Denies chest pain.Denies fevers or chills. Patient has been admitted for further treatment and evaluation. Past Medical/Surgical History: 1. COPD exacerbation 2. Chronic hypercapnic respiratory failure 2. Major depressive disorder 4.Pulmonary hypertension Social Hx: He lives at home with son. He stopped smoking two years ago. Denies alcohol or drug abuse. Family history: None Allergies: No known drug allergies. Home meds: azithromycin, albuterol and ipratropium. He got a dose of methylprednisone in the ER. ROS: Constitutional: No fever, no chills, no night sweats, no fatigue Skin: No rashes, lumps, itchiness, dryness HEENT: No HILL, ear ache, visual changes, double vision, nosebleeds, sore throat, lumps, swollen glands Pulmonary: reports: cough, shortness of breath, wheezing, ROSS, sputum Cardiovascular: No chest pain, tightness, palpitations, syncope, claudication, orthopnea, PND GI: No nausea, vomiting, diarrhea, melena, hematochezia, change in appetite, abdominal pain : No dysuria, frequency, urgency, urinary incontinence, foamy urine Musculoskeletal: No joint swelling or muscle pain, trauma, back pain Neurologic: No dizziness, fainting, seizures, changes in smell or taste Physical Exam: VITAL SIGNS: Temperature 97.6, pulse 84, and blood pressure 140/85. General Appearance: no acute distress. Seems to be thin and cachectic. HEENT: normocephalic, atraumatic Neck: non-tender, normal alignment Respiratory/Chest: Decreased expansion of lungs, but seems mostly clear. Cardiovascular/Chest: normal peripheral pulses, normal rate Abdomen: normal bowel sounds, non tender Extremities: Healing ulcers and lower extremity edema that was present in the previous admission has resolved Laboratory Tests Test 07/03/18 11:00 Troponin I 0.022 ng/mL (0.000-0.056) Labs: Wbc 6.6, hemoglobin 10.6, hematocrit 34.2, and platelets 240,000. Sodium 137, potassium 4.9, chloride 98, bicarb 30, BUN 30, and creatinine 0.7. ABG showed pH of 7.44, pCO2 59.7, pO2 58.7, O2 saturation 90%. Influenza A and B negative. Chest x-ray shows COPD. No significant change from previous chest x-ray Assessment and Recommendations: # Anemia-- due to underlying chronic medical issues, multifactorial --> Anemia w/u has been ordered --> No evidence of hemolysis is noted, peripheral smear has been reviewed. --> Hgb goal >7. Transfuse prn. --> Epogen or iron at this time is not particularly indicated # Chronic obstructive pulmonary disease exacerbation. -->PRN O2 to keep SaO2 > 90% -->BiPAP 12/5 qHS - has a TRILOGY 100 @ home - ENCOURAGE COMPLIANCE -->Continue Advair & Spiriva - needs Rx's on discharge -->RTC and PRN DUOnebs --->Continue to abstain from smoking # Hypercapnic hypoxic respiratory failure that seems to be chronic -->F/U sputum Cx -->Monitor volumes and renal function --->Needs outpatient follow up: PFT, PSG, consideration for RHC # Major depression. -->appreciate psych consult The timing of this note does not necessarily reflect the time of the patient was seen Greatly appreciate consultation! Conrado Morel MD Jul 03, 2018 21:06
--- NOTE | 2018-07-03 21:47 | General Progress Note ---
Assessment/Plan Problem List: (1) Major depressive disorder ICD Codes: F32.9 - Major depressive disorder, single episode, unspecified SNOMED: 324719440 (2) COPD exacerbation ICD Codes: J44.1 - Chronic obstructive pulmonary disease with (acute) exacerbation SNOMED: 427368957 (3) Chronic hypercapnic respiratory failure ICD Codes: J96.12 - Chronic respiratory failure with hypercapnia SNOMED: 029114921 (4) Hypoxia ICD Codes: R09.02 - Hypoxemia SNOMED: 766866973 Status: progressing Assessment/Plan copd exacerbation continue douneb on oxygen obs rewieved chart Subjective Respiratory: Reports: shortness of breath Allergies: Coded Allergies: No Known Allergies (Unverified , 06/05/18) Objective Last 24 Hour Vital Signs Date Time Temp Pulse Resp B/P (MAP) Pulse Ox O2 Delivery O2 Flow Rate FiO2 07/03/18 20:31 77 18 99 Nasal Cannula 2.0 28 07/03/18 20:29 76 18 98 Nasal Cannula 2.0 28 07/03/18 20:28 75 18 98 Nasal Cannula 2.0 28 07/03/18 20:23 75 18 97 Nasal Cannula 2.0 28 07/03/18 20:00 98.2 77 20 121/71 (88) 97 07/03/18 16:00 97.5 81 20 106/67 (80) 97 07/03/18 15:48 71 07/03/18 13:29 77 18 98 Nasal Cannula 2.0 28 07/03/18 13:29 80 18 100 Nasal Cannula 2.0 28 07/03/18 11:52 70 07/03/18 11:51 98.3 83 20 116/65 (82) 94 07/03/18 09:29 78 18 97 Nasal Cannula 2.0 28 07/03/18 09:29 78 18 97 Nasal Cannula 2.0 28 07/03/18 09:00 Nasal Cannula 2.0 07/03/18 08:00 98.6 76 20 123/23 (56) 100 07/03/18 07:59 89 07/03/18 07:58 80 18 98 Nasal Cannula 2.0 28 07/03/18 07:46 79 18 97 Nasal Cannula 2.0 28 07/03/18 04:00 80 07/03/18 04:00 98.0 79 17 119/75 (90) 96 07/03/18 03:40 Nasal Cannula 2.0 28 07/03/18 03:40 Nasal Cannula 2.0 28 07/03/18 00:00 80 07/03/18 00:00 97.9 86 20 93/54 (67) 99 07/02/18 23:19 81 18 98 Nasal Cannula 2.0 28 07/02/18 23:03 75 18 97 Nasal Cannula 2.0 28 Intake and Output 07/02/18 07/03/18 19:00 07:00 Output Total 350 ml 550 ml Balance -350 ml -550 ml Output Urine Total 350 ml 550 ml # Voids 1 # Bowel Movements 1 Laboratory Tests 07/03/18 11:00: Troponin I 0.022 Height (Feet): 6 Height (Inches): 1.00 Weight (Pounds): 189 Cardiovascular: normal rate Abdomen: soft Oskar Nichole MD Jul 03, 2018 21:47
--- NOTE | 2018-07-03 22:00 | Consultation ---
DATE OF CONSULTATION: 07/03/2018 CONSULTING PHYSICIAN: Lv Campbell M.D. REFERRING PHYSICIAN: Oskar Nichole M.D. REASON FOR CONSULTATION: Nonsustained ventricular tachycardia. HISTORY OF PRESENT ILLNESS: The patient is a 72-year-old -[place] gentleman with history of hypertension, diastolic dysfunction, and COPD, who was discharged home on the ventilator that was brought to the emergency room for increasing shortness of breath. The patient was admitted and a Cardiology consultation was obtained as the patient was having nonsustained ventricular tachycardia of 5 beats. REVIEW OF SYSTEMS: Negative other than what is mentioned in history of present illness. PAST MEDICAL HISTORY: 1. Hypertension. 2. COPD. 3. Pulmonary hypertension. 4. Depression. FAMILY HISTORY: Noncontributory. SOCIAL HISTORY: He has a history of smoking in the past, and currently does not smoke. Lives at home. PHYSICAL EXAMINATION: VITAL SIGNS: Blood pressure is , pulse 76, respirations 18, and temperature 98.6. HEAD AND NECK: No JVD. LUNGS: Clear. CARDIOVASCULAR: Regular S1 and S2 with no gallop or murmur. ABDOMEN: Soft. EXTREMITIES: No pitting edema. LABORATORY DATA: Labs show white count 6.2, hemoglobin 10.4, hematocrit 34.2, and platelet count of 240,000. Sodium is 137, potassium 4.9, BUN of 13, and creatinine of 0.7. Troponin is 0.015. ASSESSMENT AND PLAN: 1. Nonsustained ventricular tachycardia. First troponin is negative. We repeat the troponin and get 12-lead EKG and echocardiogram for further evaluation. 2. Severe chronic obstructive pulmonary disease and pulmonary hypertension, on nebulizer and Zithromax. Nebulizer per Dr. Pinedo and antibiotics per Dr. Avalos. 3. Depression. Thank you very much, Dr. Nichole, for allowing me to participate in the care of this patient. Please do not hesitate to contact me for any questions regarding my evaluation. Lv Campbell M.D. DR: LOVE JOB#: [id number] CC:
[2018-07-04] VITALS: BP 108/70
[2018-07-04] MEDS: Albuterol/Ipratropium 3ml neb HHN SCH ×4 (00:49→19:54)
[2018-07-04 04:00] VITALS: BP 121/74
--- NOTE | 2018-07-04 04:39 | NUR ---
NURSE NOTES: Pt is resting in the bed pleasantly. No respiratory distress in 2L NC. Bi Pap was given by RT during the night but pt did not complete the treatment. Will continue to monitor.
--- NOTE | 2018-07-04 06:14 | NUR ---
NURSE NOTES: Pt refused to stand up on scale to measure body weight by saying "I am not able to stand up". Monday cedrick is estimated by staff as 140 lbs.
--- NOTE | 2018-07-04 07:30 | NUR ---
HAND-OFF: Report given to Alfredo Garcia Rn. Stable condition.
--- NOTE | 2018-07-04 07:35 | NUR ---
NURSE NOTES: Received patient from GENNY Hopper in bed eating breakfast, denies any pain. No s/s of acute distress noted. Bed is in lowest position with bedside rails up X3. Brakes engaged for safety. Call light is within reach. Will continue with the plan of care.
--- NOTE | 2018-07-04 07:36 | NUR ---
CASE MANAGEMENT:REVIEW 07/04/18 SI: COPD. PULMONARY HTN. NSVT 98.6 78 20 121/74 100% ON 2L/NC TROPONIN(-) X2 IS: HEPARIN SQ Q12 SPIRIVA INH QD ADVAIR BID INH AZITHROMAX PO QD DUONEB HHN Q6HRS RTC : TELEMETRY STATUS DCP: FROM HOME PLAN: SERIAL TROPONIN
[2018-07-04 08:00] VITALS: BP 117/74
[2018-07-04] MEDS: Azithromycin 250mg tab ORAL SCH (08:46)
[2018-07-04] MEDS: guaiFENesin ER 600mg tab ORAL SCH ×2 (08:46→17:39)
[2018-07-04] MEDS: Heparin 5000 units/ml inj SUBQ SCH ×2 (08:47→20:38)
--- NOTE | 2018-07-04 08:53 | Pulmonology Progress Note ---
Assessment/Plan Problems: (1) COPD exacerbation (2) Chronic hypercapnic respiratory failure (3) Pulmonary hypertension (4) Hypoxia (5) Elevated d-dimer Assessment/Plan Optimize pulmonary hygiene/mobilize as tolerated PRN O2 to keep SaO2 > 90% BiPAP 12/ qHS - has a TRILOGY 100 @ home - ENCOURAGE COMPLIANCE Continue Advair & Spiriva - needs Rx's on discharge RTC and PRN DUOnebs Pred 40 (D4/5) Azithro (D5/5) F/U sputum Cx Monitor volumes and renal function Needs outpatient follow up: PFT, PSG, consideration for RHC FC Continue to abstain from smoking Subjective Allergies: Coded Allergies: No Known Allergies (Unverified , 06/05/18) Subjective AFVSS on 2L did not use BiPAP Less cough less SOB no wheezing no F/C no CP Objective Last 24 Hour Vital Signs Date Time Temp Pulse Resp B/P (MAP) Pulse Ox O2 Delivery O2 Flow Rate FiO2 07/04/18 08:00 97.9 87 18 117/74 (88) 98 07/04/18 07:46 74 07/04/18 04:00 98.6 78 20 121/74 (90) 97 07/04/18 03:21 74 07/04/18 00:57 74 18 100 Nasal Cannula 2.0 28 07/04/18 00:50 72 18 96 Nasal Cannula 2.0 28 07/04/18 00:41 76 25 98 Facial 28 07/04/18 00:00 98.0 87 20 108/70 (83) 97 07/03/18 23:54 82 20 98 Facial 28 07/03/18 23:25 81 07/03/18 21:00 Nasal Cannula 2.0 07/03/18 20:31 77 18 99 Nasal Cannula 2.0 28 07/03/18 20:29 76 18 98 Nasal Cannula 2.0 28 07/03/18 20:28 75 18 98 Nasal Cannula 2.0 28 07/03/18 20:23 75 18 97 Nasal Cannula 2.0 28 07/03/18 20:10 73 07/03/18 20:00 98.2 77 20 121/71 (88) 97 07/03/18 16:00 97.5 81 20 106/67 (80) 97 07/03/18 15:48 71 1/15/19 13:29 77 18 98 Nasal Cannula 2.0 28 07/03/18 13:29 80 18 100 Nasal Cannula 2.0 28 07/03/18 11:52 70 07/03/18 11:51 98.3 83 20 116/65 (82) 94 07/03/18 09:29 78 18 97 Nasal Cannula 2.0 28 07/03/18 09:29 78 18 97 Nasal Cannula 2.0 28 07/03/18 09:00 Nasal Cannula 2.0 Intake and Output 07/03/18 07/04/18 18:59 06:59 Intake Total 540 ml Output Total 250 ml 800 ml Balance 290 ml -800 ml Intake Oral 540 ml Output Urine Total 250 ml 800 ml # Voids 4 General Appearance: WD/WN, no acute distress HEENT: normocephalic, atraumatic, anicteric, mucous membranes moist Respiratory/Chest: chest wall non-tender, lungs clear - but distant, no respiratory distress, no accessory muscle use Cardiovascular: normal peripheral pulses, normal rate, regular rhythm Abdomen: normal bowel sounds, soft, non tender, no organomegaly, non distended , no mass Extremities: no cyanosis, no clubbing, no edema Microbiology Date/Time Source Procedure Growth Status 07/02/18 04:00 Nasal Nares Influenza Types A,B Antigen (NAHED) - Final Complete Laboratory Tests 07/03/18 11:00: Troponin I 0.022 07/04/18 08:30: White Blood Count [Pending], Red Blood Count [Pending], Hemoglobin [Pending], Hematocrit [Pending], Mean Corpuscular Volume [Pending], Mean Corpuscular Hemoglobin [Pending], Mean Corpuscular Hemoglobin Concent [Pending], Red Cell Distribution Width [Pending], Platelet Count [Pending], Mean Platelet Volume [ Pending], Neutrophils (%) (Auto) [Pending], Lymphocytes (%) (Auto) [Pending], Monocytes (%) (Auto) [Pending], Eosinophils (%) (Auto) [Pending], Basophils (%) (Auto) [Pending], Ferritin [Pending] Current Medications Medications (Trade) Dose Ordered Sig/Brittani Route PRN Reason Start Time Stop Time Status Last Admin Dose Admin Albuterol/ Ipratropium (Albuterol/ Ipratropium) 3 ml Q4H PRN HHN Shortness of Breath 07/01/18 20:15 07/06/18 20:14 Albuterol/ Ipratropium (Albuterol/ Ipratropium) 3 ml Q6HRT HHN 07/02/18 07:00 07/07/18 06:59 07/04/18 00:49 Azithromycin (Zithromax) 250 mg DAILY ORAL 07/02/18 09:00 07/09/18 08:59 07/04/18 08:46 Dextrose (Dextrose 50%) 25 ml Q30M PRN IV Hypoglycemia 07/01/18 20:15 07/31/18 20:14 Dextrose (Dextrose 50%) 50 ml Q30M PRN IV Hypoglycemia 07/01/18 20:15 07/31/18 20:14 Guaifenesin (Mucinex ER) 600 mg TWICE A DAY ORAL 07/02/18 09:00 08/01/18 08:59 07/04/18 08:46 Guaifenesin/ Dextromethorphan (Robitussin DM Syrup) 5 ml Q4H PRN ORAL For Cough 07/01/18 22:00 07/31/18 21:59 Heparin Sodium (Porcine) (Heparin 5000 units/ml) 5,000 units EVERY 12 HOURS SUBQ 07/03/18 21:00 08/02/18 20:59 07/04/18 08:47 Salmeterol Xinafoate/ Fluticasone (Advair 250/50 Diskus) 1 puffs BID INH 07/02/18 18:00 08/01/18 17:59 07/03/18 20:23 Tiotropium [place] (Spiriva Inhaler) 1 puff DAILY INH 07/03/18 09:00 08/02/18 08:59 07/03/18 09:29 Jason Pinedo MD Jul 04, 2018 08:53
[2018-07-04] MEDS: Advair 250/50 Inhaler - 14 dose INH SCH ×2 (08:59→19:51)
[2018-07-04 09:18] LABS: HEMATOCRIT 34.3 % (42.0-52.0); HEMOGLOBIN 10.7 G/DL (14.2-18.0); LYMPHOCYTES % (AUTO) 14.3 % (20.0-45.0); MEAN CORPUSCULAR VOLUME 93 FL (80-99); MONOCYTES % (AUTO) 10.9 % (1.0-10.0); NEUTROPHILS % (AUTO) 70.9 % (45.0-75.0); PLATELET COUNT 289 K/UL (150-450); RED BLOOD COUNT 3.69 M/UL (4.70-6.10); RED CELL DISTRIBUTION WIDTH 16.4 % (11.6-14.8); WHITE BLOOD COUNT 8.7 K/UL (4.8-10.8)
[2018-07-04 12:00] VITALS: BP 115/75
--- NOTE | 2018-07-04 12:00 | NUR ---
Patient out of the floor for VQ Scan.
--- NOTE | 2018-07-04 12:31 | Cardiac Electrophysiology PN ---
Assessment/Plan Assessment/Plan 1. Nonsustained ventricular tachycardia. Ruled out for IL. 12-lead EKG NSR, Nl ECG. Echocardiogram showed Nl EF 65% 2. Severe chronic obstructive pulmonary disease and pulmonary hypertension, on nebulizer and Zithromax. Nebulizer per Dr. Pinedo and antibiotics per Dr. Avalos. 3. Depression. 4. Hypoxia with elevated D Dimer. VQ scan pending today Subjective Subjective Going for VQ scan today. Objective Last 24 Hour Vital Signs Date Time Temp Pulse Resp B/P (MAP) Pulse Ox O2 Delivery O2 Flow Rate FiO2 07/04/18 09:00 Nasal Cannula 2.0 07/04/18 08:54 78 18 97 Nasal Cannula 2.0 28 07/04/18 08:54 77 16 97 Nasal Cannula 2.0 28 07/04/18 08:22 81 18 100 Nasal Cannula 2.0 28 07/04/18 08:04 79 18 97 Nasal Cannula 2.0 28 07/04/18 08:00 97.9 87 18 117/74 (88) 98 07/04/18 07:46 74 07/04/18 04:00 98.6 78 20 121/74 (90) 97 07/04/18 03:21 74 07/04/18 00:57 74 18 100 Nasal Cannula 2.0 28 07/04/18 00:50 72 18 96 Nasal Cannula 2.0 28 07/04/18 00:41 76 25 98 Facial 28 07/04/18 00:00 98.0 87 20 108/70 (83) 97 07/03/18 23:54 82 20 98 Facial 28 07/03/18 23:25 81 07/03/18 21:00 Nasal Cannula 2.0 07/03/18 20:31 77 18 99 Nasal Cannula 2.0 28 07/03/18 20:29 76 18 98 Nasal Cannula 2.0 28 07/03/18 20:28 75 18 98 Nasal Cannula 2.0 28 07/03/18 20:23 75 18 97 Nasal Cannula 2.0 28 07/03/18 20:10 73 07/03/18 20:00 98.2 77 20 121/71 (88) 97 07/03/18 16:00 97.5 81 20 106/67 (80) 97 07/03/18 15:48 71 07/03/18 13:29 77 18 98 Nasal Cannula 2.0 28 07/03/18 13:29 80 18 100 Nasal Cannula 2.0 28 Intake and Output 07/03/18 07/04/18 19:00 07:00 Intake Total 540 ml Output Total 250 ml 800 ml Balance 290 ml -800 ml Intake Oral 540 ml Output Urine Total 250 ml 800 ml # Voids 4 Laboratory Tests Test 07/04/18 08:30 White Blood Count 8.7 K/UL (4.8-10.8) Red Blood Count 3.69 M/UL (4.70-6.10) L Hemoglobin 10.7 G/DL (14.2-18.0) L Hematocrit 34.3 % (42.0-52.0) L Mean Corpuscular Volume 93 FL (80-99) Mean Corpuscular Hemoglobin 28.9 PG (27.0-31.0) Mean Corpuscular Hemoglobin Concent 31.0 G/DL (32.0-36.0) L Red Cell Distribution Width 16.4 % (11.6-14.8) H Platelet Count 289 K/UL (150-450) Mean Platelet Volume 5.4 FL (6.5-10.1) L Neutrophils (%) (Auto) 70.9 % (45.0-75.0) Lymphocytes (%) (Auto) 14.3 % (20.0-45.0) L Monocytes (%) (Auto) 10.9 % (1.0-10.0) H Eosinophils (%) (Auto) 3.0 % (0.0-3.0) Basophils (%) (Auto) 1.0 % (0.0-2.0) Ferritin 307 NG/ML (8-388) Microbiology Date/Time Source Procedure Growth Status 07/02/18 04:00 Nasal Nares Influenza Types A,B Antigen (NAHED) - Final Complete Objective HEAD AND NECK: No JVD. LUNGS: Clear. CARDIOVASCULAR: Regular S1 and S2 with no gallop or murmur. ABDOMEN: Soft. EXTREMITIES: No pitting edema. Lv Campbell MD Jul 04, 2018 12:30
--- NOTE | 2018-07-04 12:37 | NUR ---
Patient is back on the floor in room comfortably. N s/s of distress.
--- NOTE | 2018-07-04 12:43 | NUR ---
Attempted V/Q Scan. Pt unable to tolerate. Informed RN Francesco
--- NOTE | 2018-07-04 14:09 | Infectious Diseases Prog Note ---
Assessment/Plan Assessment/Plan A: 1. Chronic obstructive pulmonary disease exacerbation. 2. Hypercapnic hypoxic respiratory failure that seems to be chronic. 3. Major depression. 4. Anemia. 5. Nonsustained VT RECOMMENDATION: 1.Continue with Zithromax Subjective ROS Limited/Unobtainable: No Respiratory: Reports: dry cough Cardiovascular: Reports: no symptoms Gastrointestinal/Abdominal: Reports: no symptoms Genitourinary: Reports: no symptoms Allergies: Coded Allergies: No Known Allergies (Unverified , 06/05/18) Objective Vital Signs Last 24 Hour Vital Signs Date Time Temp Pulse Resp B/P (MAP) Pulse Ox O2 Delivery O2 Flow Rate FiO2 07/04/18 13:29 76 16 97 Nasal Cannula 2.0 28 07/04/18 13:24 72 16 95 Nasal Cannula 2.0 28 07/04/18 12:00 79 07/04/18 12:00 98.0 74 18 115/75 (88) 98 07/04/18 09:00 Nasal Cannula 2.0 07/04/18 08:54 78 18 97 Nasal Cannula 2.0 28 07/04/18 08:54 77 16 97 Nasal Cannula 2.0 28 07/04/18 08:22 81 18 100 Nasal Cannula 2.0 28 07/04/18 08:04 79 18 97 Nasal Cannula 2.0 28 07/04/18 08:00 97.9 87 18 117/74 (88) 98 07/04/18 07:46 74 07/04/18 04:00 98.6 78 20 121/74 (90) 97 07/04/18 03:21 74 07/04/18 00:57 74 18 100 Nasal Cannula 2.0 28 07/04/18 00:50 72 18 96 Nasal Cannula 2.0 28 07/04/18 00:41 76 25 98 Facial 28 07/04/18 00:00 98.0 87 20 108/70 (83) 97 07/03/18 23:54 82 20 98 Facial 28 07/03/18 23:25 81 07/03/18 21:00 Nasal Cannula 2.0 07/03/18 20:31 77 18 99 Nasal Cannula 2.0 28 07/03/18 20:29 76 18 98 Nasal Cannula 2.0 28 07/03/18 20:28 75 18 98 Nasal Cannula 2.0 28 07/03/18 20:23 75 18 97 Nasal Cannula 2.0 28 07/03/18 20:10 73 07/03/18 20:00 98.2 77 20 121/71 (88) 97 07/03/18 16:00 97.5 81 20 106/67 (80) 97 07/03/18 15:48 71 Height (Feet): 6 Height (Inches): 1.00 Weight (Pounds): 140 General Appearance: cachetic HEENT: mucous membranes moist Respiratory/Chest: decreased breath sounds Cardiovascular: normal rate Abdomen: soft, non tender Extremities: no edema Neurologic/Psychiatric: alert, oriented x 3, responsive Microbiology Date/Time Source Procedure Growth Status 07/02/18 04:00 Nasal Nares Influenza Types A,B Antigen (NAHED) - Final Complete Laboratory Tests Test 07/04/18 08:30 White Blood Count 8.7 K/UL (4.8-10.8) Red Blood Count 3.69 M/UL (4.70-6.10) L Hemoglobin 10.7 G/DL (14.2-18.0) L Hematocrit 34.3 % (42.0-52.0) L Mean Corpuscular Volume 93 FL (80-99) Mean Corpuscular Hemoglobin 28.9 PG (27.0-31.0) Mean Corpuscular Hemoglobin Concent 31.0 G/DL (32.0-36.0) L Red Cell Distribution Width 16.4 % (11.6-14.8) H Platelet Count 289 K/UL (150-450) Mean Platelet Volume 5.4 FL (6.5-10.1) L Neutrophils (%) (Auto) 70.9 % (45.0-75.0) Lymphocytes (%) (Auto) 14.3 % (20.0-45.0) L Monocytes (%) (Auto) 10.9 % (1.0-10.0) H Eosinophils (%) (Auto) 3.0 % (0.0-3.0) Basophils (%) (Auto) 1.0 % (0.0-2.0) Ferritin 307 NG/ML (8-388) Current Medications Medications (Trade) Dose Ordered Sig/Brittani Route PRN Reason Start Time Stop Time Status Last Admin Dose Admin Albuterol/ Ipratropium (Albuterol/ Ipratropium) 3 ml Q4H PRN HHN Shortness of Breath 07/01/18 20:15 07/06/18 20:14 Albuterol/ Ipratropium (Albuterol/ Ipratropium) 3 ml Q6HRT HHN 07/02/18 07:00 07/07/18 06:59 07/04/18 13:32 Azithromycin (Zithromax) 250 mg DAILY ORAL 07/02/18 09:00 07/09/18 08:59 07/04/18 08:46 Dextrose (Dextrose 50%) 25 ml Q30M PRN IV Hypoglycemia 07/01/18 20:15 07/31/18 20:14 Dextrose (Dextrose 50%) 50 ml Q30M PRN IV Hypoglycemia 07/01/18 20:15 07/31/18 20:14 Guaifenesin (Mucinex ER) 600 mg TWICE A DAY ORAL 07/02/18 09:00 08/01/18 08:59 07/04/18 08:46 Guaifenesin/ Dextromethorphan (Robitussin DM Syrup) 5 ml Q4H PRN ORAL For Cough 07/01/18 22:00 07/31/18 21:59 Heparin Sodium (Porcine) (Heparin 5000 units/ml) 5,000 units EVERY 12 HOURS SUBQ 07/03/18 21:00 08/02/18 20:59 07/04/18 08:47 Prednisone (predniSONE) 40 mg DAILY ORAL 07/04/18 09:00 08/03/18 08:59 07/04/18 09:28 Salmeterol Xinafoate/ Fluticasone (Advair 250/50 Diskus) 1 puffs BID INH 07/02/18 18:00 08/01/18 17:59 07/04/18 08:59 Tiotropium [place] (Spiriva Inhaler) 1 puff DAILY INH 07/03/18 09:00 08/02/18 08:59 07/04/18 08:59 William Avalos MD Jul 04, 2018 14:09
[2018-07-04 16:00] VITALS: BP 103/73
--- NOTE | 2018-07-04 16:20 | Cardiology Report ---
APPROVED REPORT EKG Measurement Heart [id number] Normal sinus rhythm with sinus arrhythmia Normal ECG
--- NOTE | 2018-07-04 17:12 | General Progress Note ---
Assessment/Plan Assessment/Plan Assessment and Recommendations: # Anemia-- due to underlying chronic medical issues, multifactorial --> Anemia w/u has been ordered --> No evidence of hemolysis is noted, peripheral smear has been reviewed. --> Hgb goal >7. Transfuse prn. --> Epogen or iron at this time is not particularly indicated # Chronic obstructive pulmonary disease exacerbation. -->PRN O2 to keep SaO2 > 90% -->BiPAP 12/5 qHS - has a TRILOGY 100 @ home - ENCOURAGE COMPLIANCE -->Continue Advair & Spiriva - needs Rx's on discharge -->RTC and PRN DUOnebs --->Continue to abstain from smoking # Hypercapnic hypoxic respiratory failure that seems to be chronic -->F/U sputum Cx -->Monitor volumes and renal function --->Needs outpatient follow up: PFT, PSG, consideration for RHC # Major depression. -->appreciate psych consult The timing of this note does not necessarily reflect the time of the patient was seen Greatly appreciate consultation! Subjective Constitutional: Denies: no symptoms, chills, diaphoresis, fever, malaise, weakness, other HEENT: Denies: no symptoms, eye pain, blurred vision, tearing, double vision, ear pain, ear discharge, nose pain, nose congestion, throat pain, throat swelling, mouth pain, mouth swelling, other Cardiovascular: Denies: no symptoms, chest pain, edema, irregular heart rate, lightheadedness, palpitations, syncope, other Respiratory: Denies: no symptoms, cough, orthopnea, shortness of breath, SOB with excertion, SOB at rest, sputum, stridor, wheezing, other Gastrointestinal/Abdominal: Denies: no symptoms, abdomen distended, abdominal pain, black stools, tarry stools, blood in stool, constipated, diarrhea, difficulty swallowing, nausea, poor appetite, poor fluid intake, rectal bleeding , vomiting, other Genitourinary: Denies: no symptoms, burning, discharge, frequency, flank pain, hematuria, incontinence, pain, urgency, other Neurologic/Psychiatric: Denies: no symptoms, anxiety, depressed, emotional problems, headache, numbness, paresthesia, pre-existing deficit, seizure, tingling, tremors, weakness, other Endocrine: Denies: no symptoms, excessive sweating, flushing, intolerance to cold, intolerance to heat, increased hunger, increased thirst, increased urine, unexplained weight gain, unexplained weight loss, other Hematologic/Lymphatic: Denies: no symptoms, anemia, easy bleeding, easy bruising, other Allergies: Coded Allergies: No Known Allergies (Unverified , 06/05/18) Subjective 07/04: Pt is seen by bedside, on 2L NC, did not use BiPAP, Going for VQ scan today, plt trending up. Objective Last 24 Hour Vital Signs Date Time Temp Pulse Resp B/P (MAP) Pulse Ox O2 Delivery O2 Flow Rate FiO2 07/04/18 16:00 97.9 78 18 103/73 (83) 99 07/04/18 13:29 76 16 97 Nasal Cannula 2.0 28 07/04/18 13:24 72 16 95 Nasal Cannula 2.0 28 07/04/18 12:00 79 07/04/18 12:00 98.0 74 18 115/75 (88) 98 07/04/18 09:00 Nasal Cannula 2.0 07/04/18 08:54 78 18 97 Nasal Cannula 2.0 28 07/04/18 08:54 77 16 97 Nasal Cannula 2.0 28 07/04/18 08:22 81 18 100 Nasal Cannula 2.0 28 07/04/18 08:04 79 18 97 Nasal Cannula 2.0 28 07/04/18 08:00 97.9 87 18 117/74 (88) 98 07/04/18 07:46 74 07/04/18 04:00 98.6 78 20 121/74 (90) 97 07/04/18 03:21 74 07/04/18 00:57 74 18 100 Nasal Cannula 2.0 28 07/04/18 00:50 72 18 96 Nasal Cannula 2.0 28 07/04/18 00:41 76 25 98 Facial 28 07/04/18 00:00 98.0 87 20 108/70 (83) 97 07/03/18 23:54 82 20 98 Facial 28 07/03/18 23:25 81 07/03/18 21:00 Nasal Cannula 2.0 07/03/18 20:31 77 18 99 Nasal Cannula 2.0 28 07/03/18 20:29 76 18 98 Nasal Cannula 2.0 28 07/03/18 20:28 75 18 98 Nasal Cannula 2.0 28 07/03/18 20:23 75 18 97 Nasal Cannula 2.0 28 07/03/18 20:10 73 07/03/18 20:00 98.2 77 20 121/71 (88) 97 Intake and Output 07/03/18 07/04/18 19:00 07:00 Intake Total 540 ml Output Total 250 ml 800 ml Balance 290 ml -800 ml Intake Oral 540 ml Output Urine Total 250 ml 800 ml # Voids 4 Laboratory Tests 07/04/18 08:30: White Blood Count 8.7, Red Blood Count 3.69L, Hemoglobin 10.7L, Hematocrit 34.3L , Mean Corpuscular Volume 93, Mean Corpuscular Hemoglobin 28.9, Mean Corpuscular Hemoglobin Concent 31.0L, Red Cell Distribution Width 16.4H, Platelet Count 289, Mean Platelet Volume 5.4L, Neutrophils (%) (Auto) 70.9, Lymphocytes (%) (Auto) 14.3L, Monocytes (%) (Auto) 10.9H, Eosinophils (%) (Auto ) 3.0, Basophils (%) (Auto) 1.0, Ferritin 307 Height (Feet): 6 Height (Inches): 1.00 Weight (Pounds): 140 Objective General Appearance: no acute distress. Seems to be thin and cachectic. HEENT: normocephalic, atraumatic Neck: non-tender, normal alignment Respiratory/Chest: Decreased expansion of lungs, but seems mostly clear. Cardiovascular/Chest: normal peripheral pulses, normal rate Abdomen: normal bowel sounds, non tender Extremities: Healing ulcers and lower extremity edema that was present in the previous admission has resolved Conrado Morel MD Jul 04, 2018 17:12
--- NOTE | 2018-07-04 19:30 | NUR ---
HAND-OFF: Report given to GENNY Miranda. Patient is in stable condition.
--- NOTE | 2018-07-04 19:35 | NUR ---
NURSE NOTES: Received report from GENNY Maya. Patient awake, alert and verbally responsive. No SOB on 2 L via NC, no acute distress, denies any pain nor any discomfort at this time. IV site on L FA #20, patent and intact. Foam dressing on the back area d/t bony prominence but otherwise no skin breakdown. VQ scan was not done today, pt unable to tolerate, per Francesco, Dr. Pinedo is aware. Bed at lowest position, call light within reach. Will continue plan of care.
[2018-07-04 20:00] VITALS: BP 99/69
--- NOTE | 2018-07-04 21:00 | NUR ---
NURSE NOTES: Per Kika (RT) pt refused BIPAP, r/b explained, but pt insist not to have it on, will try to offer gain later.
--- NOTE | 2018-07-04 22:28 | General Progress Note ---
Assessment/Plan Problem List: (1) Major depressive disorder ICD Codes: F32.9 - Major depressive disorder, single episode, unspecified SNOMED: 503912621 (2) COPD exacerbation ICD Codes: J44.1 - Chronic obstructive pulmonary disease with (acute) exacerbation SNOMED: 786222019 (3) Chronic hypercapnic respiratory failure ICD Codes: J96.12 - Chronic respiratory failure with hypercapnia SNOMED: 187257673 (4) Hypoxia ICD Codes: R09.02 - Hypoxemia SNOMED: 069414365 Status: progressing Assessment/Plan copd exacerbation continue douneb on oxygen r/o PE obs abx per id afebrile Subjective ROS Limited/Unobtainable: Yes Allergies: Coded Allergies: No Known Allergies (Unverified , 06/05/18) Objective Last 24 Hour Vital Signs Date Time Temp Pulse Resp B/P (MAP) Pulse Ox O2 Delivery O2 Flow Rate FiO2 07/04/18 21:00 Nasal Cannula 2.0 07/04/18 20:04 79 18 98 Nasal Cannula 2.0 28 07/04/18 20:00 98.5 78 18 99/69 (79) 98 07/04/18 20:00 79 07/04/18 19:54 83 18 97 Nasal Cannula 2.0 28 07/04/18 19:52 82 18 97 Nasal Cannula 2.0 28 07/04/18 19:51 82 18 97 Nasal Cannula 2.0 28 07/04/18 19:50 97 Nasal Cannula 2.0 28 07/04/18 19:50 Nasal Cannula 2.0 28 07/04/18 16:00 97.9 78 18 103/73 (83) 99 07/04/18 16:00 77 07/04/18 13:29 76 16 97 Nasal Cannula 2.0 28 07/04/18 13:24 72 16 95 Nasal Cannula 2.0 28 07/04/18 12:00 79 07/04/18 12:00 98.0 74 18 115/75 (88) 98 07/04/18 09:00 Nasal Cannula 2.0 07/04/18 08:54 78 18 97 Nasal Cannula 2.0 28 07/04/18 08:54 77 16 97 Nasal Cannula 2.0 28 07/04/18 08:22 81 18 100 Nasal Cannula 2.0 28 07/04/18 08:04 79 18 97 Nasal Cannula 2.0 28 07/04/18 08:00 97.9 87 18 117/74 (88) 98 07/04/18 07:46 74 07/04/18 04:00 98.6 78 20 121/74 (90) 97 07/04/18 03:21 74 07/04/18 00:57 74 18 100 Nasal Cannula 2.0 28 07/04/18 00:50 72 18 96 Nasal Cannula 2.0 28 07/04/18 00:41 76 25 98 Facial 28 07/04/18 00:00 98.0 87 20 108/70 (83) 97 07/03/18 23:54 82 20 98 Facial 28 07/03/18 23:25 81 Intake and Output 07/03/18 07/04/18 19:00 07:00 Intake Total 540 ml Output Total 250 ml 800 ml Balance 290 ml -800 ml Intake Oral 540 ml Output Urine Total 250 ml 800 ml # Voids 4 Laboratory Tests 07/04/18 08:30: White Blood Count 8.7, Red Blood Count 3.69L, Hemoglobin 10.7L, Hematocrit 34.3L , Mean Corpuscular Volume 93, Mean Corpuscular Hemoglobin 28.9, Mean Corpuscular Hemoglobin Concent 31.0L, Red Cell Distribution Width 16.4H, Platelet Count 289, Mean Platelet Volume 5.4L, Neutrophils (%) (Auto) 70.9, Lymphocytes (%) (Auto) 14.3L, Monocytes (%) (Auto) 10.9H, Eosinophils (%) (Auto ) 3.0, Basophils (%) (Auto) 1.0, Ferritin 307 Height (Feet): 6 Height (Inches): 1.00 Weight (Pounds): 140 General Appearance: confused Neck: supple Cardiovascular: normal rate Respiratory/Chest: normal breath sounds Oskar Nichole MD Jul 04, 2018 22:28
[2018-07-05] VITALS: BP 98/76
[2018-07-05] MEDS: Albuterol/Ipratropium 3ml neb HHN SCH ×3 (01:25→13:28)
--- NOTE | 2018-07-05 03:52 | NUR ---
NURSE NOTES: Patient asleep, breathing even and unlabored, no s/sx of pain nor any discomfort at this time. 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 Bed at lowest position, call light within reach. Will continue to monitor.
[2018-07-05 04:00] VITALS: BP 131/76
--- NOTE | 2018-07-05 07:24 | NUR ---
HAND-OFF: Report given to GENNY Weston. Endorsed plan of care.
--- NOTE | 2018-07-05 07:24 | NUR ---
NURSE NOTES: Report received from GENNY Lipscomb. Patient asleep. No breathing distress noted. Patient in 2L NC. Bed on lowest position, brakes engaged, side rails upx2. Call light within easy reach. White board updated.
[2018-07-05 08:00] VITALS: BP 100/64
[2018-07-05] MEDS: Advair 250/50 Inhaler - 14 dose INH SCH (08:41)
--- NOTE | 2018-07-05 09:15 | NUR ---
*-* DISCHARGE PLANNING PATIENT HAS BEEN REFERRED TO: [facility] P:[phone] F:[phone] Addendum: 07/05/18 at 1036 by OPAL ROGERS LVN LVN PATIENT WAS ALSO REFERRED TO [facility] FOR HOME NEBULIZER [facility] HAS BEEN PROVIDING HOME OXYGEN FOR THIS PATIENT
[2018-07-05] MEDS: Azithromycin 250mg tab ORAL SCH (09:22)
[2018-07-05] MEDS: guaiFENesin ER 600mg tab ORAL SCH ×2 (09:22→18:00)
[2018-07-05] MEDS: Heparin 5000 units/ml inj SUBQ SCH (09:24)
[2018-07-05 12:00] VITALS: BP 121/74
--- NOTE | 2018-07-05 12:14 | Infectious Diseases Prog Note ---
Assessment/Plan Assessment/Plan A: 1. Chronic obstructive pulmonary disease exacerbation. 2. Hypercapnic hypoxic respiratory failure that seems to be chronic. 3. Major depression. 4. Anemia. 5. Nonsustained VT RECOMMENDATION: 1.Discontinue Zithromax 2. Agree with discharge Subjective ROS Limited/Unobtainable: Yes Allergies: Coded Allergies: No Known Allergies (Unverified , 06/05/18) Objective Vital Signs Last 24 Hour Vital Signs Date Time Temp Pulse Resp B/P (MAP) Pulse Ox O2 Delivery O2 Flow Rate FiO2 07/05/18 08:44 73 18 98 Nasal Cannula 2.0 28 07/05/18 08:44 74 18 98 Nasal Cannula 2.0 28 07/05/18 08:43 74 18 98 Nasal Cannula 2.0 28 07/05/18 08:43 74 18 98 Nasal Cannula 2.0 28 07/05/18 08:00 97.3 75 20 100/64 (76) 98 07/05/18 08:00 77 07/05/18 07:46 71 18 97 Nasal Cannula 2.0 28 07/05/18 07:40 Nasal Cannula 2.0 28 07/05/18 07:40 92 Room Air 21 07/05/18 07:40 69 18 92 Room Air 21 07/05/18 04:00 97.7 71 20 131/76 (94) 98 07/05/18 04:00 70 07/05/18 01:36 72 18 99 Nasal Cannula 2.0 28 07/05/18 01:25 71 18 98 Nasal Cannula 2.0 28 07/05/18 00:00 65 07/05/18 00:00 97.8 72 20 98/76 (83) 100 07/04/18 21:00 Nasal Cannula 2.0 07/04/18 20:04 79 18 98 Nasal Cannula 2.0 28 07/04/18 20:00 98.5 78 18 99/69 (79) 98 07/04/18 20:00 79 07/04/18 19:54 83 18 97 Nasal Cannula 2.0 28 07/04/18 19:52 82 18 97 Nasal Cannula 2.0 28 07/04/18 19:51 82 18 97 Nasal Cannula 2.0 28 07/04/18 19:50 97 Nasal Cannula 2.0 28 07/04/18 19:50 Nasal Cannula 2.0 28 07/04/18 16:00 97.9 78 18 103/73 (83) 99 07/04/18 16:00 77 07/04/18 13:29 76 16 97 Nasal Cannula 2.0 28 07/04/18 13:24 72 16 95 Nasal Cannula 2.0 28 Height (Feet): 6 Height (Inches): 1.00 Weight (Pounds): 140 General Appearance: no acute distress HEENT: mucous membranes moist Respiratory/Chest: decreased breath sounds Cardiovascular: normal rate Abdomen: soft, non tender Extremities: no edema Neurologic/Psychiatric: other - sleeping Current Medications Medications (Trade) Dose Ordered Sig/Brittani Route PRN Reason Start Time Stop Time Status Last Admin Dose Admin Albuterol/ Ipratropium (Albuterol/ Ipratropium) 3 ml Q4H PRN HHN Shortness of Breath 07/01/18 20:15 07/06/18 20:14 Albuterol/ Ipratropium (Albuterol/ Ipratropium) 3 ml Q6HRT HHN 07/02/18 07:00 07/07/18 06:59 07/05/18 07:38 Azithromycin (Zithromax) 250 mg DAILY ORAL 07/02/18 09:00 07/09/18 08:59 07/05/18 09:22 Dextrose (Dextrose 50%) 25 ml Q30M PRN IV Hypoglycemia 07/01/18 20:15 07/31/18 20:14 Dextrose (Dextrose 50%) 50 ml Q30M PRN IV Hypoglycemia 07/01/18 20:15 07/31/18 20:14 Guaifenesin (Mucinex ER) 600 mg TWICE A DAY ORAL 07/02/18 09:00 08/01/18 08:59 07/05/18 09:22 Guaifenesin/ Dextromethorphan (Robitussin DM Syrup) 5 ml Q4H PRN ORAL For Cough 07/01/18 22:00 07/31/18 21:59 Heparin Sodium (Porcine) (Heparin 5000 units/ml) 5,000 units EVERY 12 HOURS SUBQ 07/03/18 21:00 08/02/18 20:59 07/05/18 09:24 Prednisone (predniSONE) 40 mg DAILY ORAL 07/04/18 09:00 08/03/18 08:59 07/05/18 09:22 Salmeterol Xinafoate/ Fluticasone (Advair 250/50 Diskus) 1 puffs BID INH 07/02/18 18:00 08/01/18 17:59 07/05/18 08:41 Tiotropium [place] (Spiriva Inhaler) 1 puff DAILY INH 07/03/18 09:00 08/02/18 08:59 07/05/18 08:41 William Avalos MD Jul 05, 2018 12:14
--- NOTE | 2018-07-05 12:23 | General Progress Note ---
Assessment/Plan Assessment/Plan Assessment and Recommendations: # Anemia due to underlying chronic medical issues, multifactorial --> Anemia w/u has been ordered and reviewed --> No evidence of hemolysis is noted, peripheral smear has been reviewed. --> Hgb goal >7. Transfuse prn. --> Epogen or iron at this time is not particularly indicated # Chronic obstructive pulmonary disease exacerbation. --> PRN O2 to keep SaO2 > 90% --> BiPAP 12/5 qHS - has a TRILOGY 100 @ home - ENCOURAGE COMPLIANCE --> Continue Advair & Spiriva - needs Rx's on discharge --> RTC and abstain smoking # Hypercapnic hypoxic respiratory failure that seems to be chronic --> F/U sputum Cx --> Monitor volumes and renal function ---> Needs outpatient follow up: PFT, PSG, consideration for RHC # Major depression --> appreciate psych consult The timing of this note does not necessarily reflect the time of the patient was seen Greatly appreciate consultation! Subjective Respiratory: Denies: no symptoms, cough, orthopnea, shortness of breath, SOB with excertion, SOB at rest, sputum, stridor, wheezing, other Genitourinary: Denies: no symptoms, burning, discharge, frequency, flank pain, hematuria, incontinence, pain, urgency, other Neurologic/Psychiatric: Denies: no symptoms, anxiety, depressed, emotional problems, headache, numbness, paresthesia, pre-existing deficit, seizure, tingling, tremors, weakness, other Endocrine: Denies: no symptoms, excessive sweating, flushing, intolerance to cold, intolerance to heat, increased hunger, increased thirst, increased urine, unexplained weight gain, unexplained weight loss, other Hematologic/Lymphatic: Denies: no symptoms, anemia, easy bleeding, easy bruising, other Allergies: Coded Allergies: No Known Allergies (Unverified , 06/05/18) Subjective 07/04: Pt is seen by bedside, on 2L NC, did not use BiPAP, Going for VQ scan today, plt trending up. 07/05: counts remains stable, h/h stable, no fevers or chills, referred for placement, no complaints Objective Last 24 Hour Vital Signs Date Time Temp Pulse Resp B/P (MAP) Pulse Ox O2 Delivery O2 Flow Rate FiO2 07/05/18 08:44 73 18 98 Nasal Cannula 2.0 28 07/05/18 08:44 74 18 98 Nasal Cannula 2.0 28 07/05/18 08:43 74 18 98 Nasal Cannula 2.0 28 07/05/18 08:43 74 18 98 Nasal Cannula 2.0 28 07/05/18 08:00 97.3 75 20 100/64 (76) 98 07/05/18 08:00 77 07/05/18 07:46 71 18 97 Nasal Cannula 2.0 28 07/05/18 07:40 Nasal Cannula 2.0 28 07/05/18 07:40 92 Room Air 21 07/05/18 07:40 69 18 92 Room Air 21 07/05/18 04:00 97.7 71 20 131/76 (94) 98 07/05/18 04:00 70 07/05/18 01:36 72 18 99 Nasal Cannula 2.0 28 07/05/18 01:25 71 18 98 Nasal Cannula 2.0 28 07/05/18 00:00 65 07/05/18 00:00 97.8 72 20 98/76 (83) 100 07/04/18 21:00 Nasal Cannula 2.0 07/04/18 20:04 79 18 98 Nasal Cannula 2.0 28 07/04/18 20:00 98.5 78 18 99/69 (79) 98 07/04/18 20:00 79 07/04/18 19:54 83 18 97 Nasal Cannula 2.0 28 07/04/18 19:52 82 18 97 Nasal Cannula 2.0 28 07/04/18 19:51 82 18 97 Nasal Cannula 2.0 28 07/04/18 19:50 97 Nasal Cannula 2.0 28 07/04/18 19:50 Nasal Cannula 2.0 28 07/04/18 16:00 97.9 78 18 103/73 (83) 99 07/04/18 16:00 77 07/04/18 13:29 76 16 97 Nasal Cannula 2.0 28 07/04/18 13:24 72 16 95 Nasal Cannula 2.0 28 Intake and Output 07/04/18 07/05/18 18:59 06:59 Intake Total 360 ml 120 ml Output Total 950 ml 250 ml Balance -590 ml -130 ml Intake Oral 360 ml 120 ml Output Urine Total 950 ml 250 ml Height (Feet): 6 Height (Inches): 1.00 Weight (Pounds): 140 Objective General Appearance: no acute distress. Seems to be thin and cachectic. HEENT: normocephalic, atraumatic Neck: non-tender, normal alignment Respiratory/Chest: Decreased expansion of lungs, but seems mostly clear. Cardiovascular/Chest: normal peripheral pulses, normal rate Abdomen: normal bowel sounds, non tender Extremities: Healing ulcers and lower extremity edema that was present in the previous admission has resolved Conrado Morel MD Jul 05, 2018 12:23
--- NOTE | 2018-07-05 12:37 | NUR ---
RD ASSESSMENT & RECOMMENDATIONS SEE CARE ACTIVITY FOR COMPLETE ASSESSMENT DAILY ESTIMATED NEEDS: Needs based on Pulmonary, possibly underweight / 60kg 30-35 kcals/kg 8062-7694 total kcals 1-1.5 g protein/kg 60-90 g total protein 25-30 mL/kg 5483-1064 total fluid mLs NUTRITION DIAGNOSIS: * Possible swallowing difficulty R/T dysphagia? as evidenced by pt on pureed moist texture. CURRENT DIET:REGULAR/ pureed moist PO DIET RECOMMENDATIONS: REGULAR/ texture per [employer] ADDITIONAL RECOMMENDATIONS: * Rec txr pt to bed w/ bedscale, obtain accurate CBW -pt possibly underweight, on a bed without scale * [employer] eval for appropriate texture * Add ENSURE 1 bottle daily + snacks BID * Monitor BGs closely while on prednisone . .
--- NOTE | 2018-07-05 14:37 | Pulmonology Progress Note ---
Assessment/Plan Problems: (1) COPD exacerbation (2) Chronic hypercapnic respiratory failure (3) Pulmonary hypertension (4) Hypoxia (5) Elevated d-dimer Assessment/Plan Optimize pulmonary hygiene/mobilize as tolerated PRN O2 to keep SaO2 > 90% BiPAP 12/ qHS - has a TRILOGY 100 @ home - ENCOURAGE COMPLIANCE Continue Advair & Spiriva - needs Rx's on discharge RTC and PRN DUOnebs Completed Pred 40 (D5/5) Completed Azithro (D5/5) Monitor volumes and renal function Needs outpatient follow up: PFT, PSG, consideration for RHC FC Continue to abstain from smoking Stable for D/C from a pulmonary standpoint Subjective Allergies: Coded Allergies: No Known Allergies (Unverified , 06/05/18) Subjective AFVSS on 2L did not use BiPAP refused VQ Less cough less SOB no wheezing no F/C no CP Objective Last 24 Hour Vital Signs Date Time Temp Pulse Resp B/P (MAP) Pulse Ox O2 Delivery O2 Flow Rate FiO2 07/05/18 13:45 73 20 98 Nasal Cannula 2.0 28 07/05/18 13:29 74 18 97 Nasal Cannula 2.0 28 07/05/18 12:00 68 07/05/18 12:00 97.9 72 20 121/74 (90) 96 07/05/18 09:00 Nasal Cannula 2.0 07/05/18 08:44 73 18 98 Nasal Cannula 2.0 28 07/05/18 08:44 74 18 98 Nasal Cannula 2.0 28 07/05/18 08:43 74 18 98 Nasal Cannula 2.0 28 07/05/18 08:43 74 18 98 Nasal Cannula 2.0 28 07/05/18 08:00 97.3 75 20 100/64 (76) 98 07/05/18 08:00 77 07/05/18 07:46 71 18 97 Nasal Cannula 2.0 28 07/05/18 07:40 Nasal Cannula 2.0 28 07/05/18 07:40 92 Room Air 21 07/05/18 07:40 69 18 92 Room Air 21 07/05/18 04:00 97.7 71 20 131/76 (94) 98 07/05/18 04:00 70 07/05/18 01:36 72 18 99 Nasal Cannula 2.0 28 1/17/19 01:25 71 18 98 Nasal Cannula 2.0 28 07/05/18 00:00 65 07/05/18 00:00 97.8 72 20 98/76 (83) 100 07/04/18 21:00 Nasal Cannula 2.0 07/04/18 20:04 79 18 98 Nasal Cannula 2.0 28 07/04/18 20:00 98.5 78 18 99/69 (79) 98 07/04/18 20:00 79 07/04/18 19:54 83 18 97 Nasal Cannula 2.0 28 07/04/18 19:52 82 18 97 Nasal Cannula 2.0 28 07/04/18 19:51 82 18 97 Nasal Cannula 2.0 28 07/04/18 19:50 97 Nasal Cannula 2.0 28 07/04/18 19:50 Nasal Cannula 2.0 28 07/04/18 16:00 97.9 78 18 103/73 (83) 99 07/04/18 16:00 77 Intake and Output 07/04/18 07/05/18 19:00 07:00 Intake Total 360 ml 120 ml Output Total 950 ml 250 ml Balance -590 ml -130 ml Intake Oral 360 ml 120 ml Output Urine Total 950 ml 250 ml General Appearance: no acute distress, cachetic HEENT: normocephalic, atraumatic, anicteric, mucous membranes moist Respiratory/Chest: chest wall non-tender, lungs clear - but distant Cardiovascular: normal peripheral pulses, normal rate, regular rhythm Abdomen: normal bowel sounds, soft, non tender, no organomegaly, non distended , no mass Extremities: no cyanosis, no clubbing, no edema Current Medications Medications (Trade) Dose Ordered Sig/Brittani Route PRN Reason Start Time Stop Time Status Last Admin Dose Admin Albuterol/ Ipratropium (Albuterol/ Ipratropium) 3 ml Q4H PRN HHN Shortness of Breath 07/01/18 20:15 07/06/18 20:14 Albuterol/ Ipratropium (Albuterol/ Ipratropium) 3 ml Q6HRT HHN 07/02/18 07:00 07/07/18 06:59 07/05/18 13:28 Dextrose (Dextrose 50%) 25 ml Q30M PRN IV Hypoglycemia 07/01/18 20:15 07/31/18 20:14 Dextrose (Dextrose 50%) 50 ml Q30M PRN IV Hypoglycemia 07/01/18 20:15 07/31/18 20:14 Guaifenesin (Mucinex ER) 600 mg TWICE A DAY ORAL 07/02/18 09:00 08/01/18 08:59 07/05/18 09:22 Guaifenesin/ Dextromethorphan (Robitussin DM Syrup) 5 ml Q4H PRN ORAL For Cough 07/01/18 22:00 07/31/18 21:59 Heparin Sodium (Porcine) (Heparin 5000 units/ml) 5,000 units EVERY 12 HOURS SUBQ 07/03/18 21:00 08/02/18 20:59 07/05/18 09:24 Prednisone (predniSONE) 40 mg DAILY ORAL 07/04/18 09:00 08/03/18 08:59 07/05/18 09:22 Salmeterol Xinafoate/ Fluticasone (Advair 250/50 Diskus) 1 puffs BID INH 07/02/18 18:00 08/01/18 17:59 07/05/18 08:41 Tiotropium [place] (Spiriva Inhaler) 1 puff DAILY INH 07/03/18 09:00 08/02/18 08:59 07/05/18 08:41 Jason Pinedo MD Jul 05, 2018 14:37
[2018-07-05] MEDS ORDERED: FLUTICASONE PRO16 G1 NASAL (15:13)
[2018-07-05] MEDS ORDERED: ADVAIR 250-501 EACH INH (15:13)
[2018-07-05] MEDS ORDERED: GUAIFENESI100 MG/5 M ORAL (15:14)
[2018-07-05] MEDS ORDERED: HEPARIN SO5000 UNIT2 SUBQ (15:15)
[2018-07-05] MEDS ORDERED: DUONEB 0.5-3(2.53 ML HHN (15:15)
[2018-07-05] MEDS ORDERED: MUCINEX600 MG PO (15:15)
[2018-07-05] MEDS ORDERED: SPIRIVA18 MCG INH (15:16)
[2018-07-05] MEDS ORDERED: prednisone ORAL (15:16)
--- NOTE | 2018-07-05 15:18 | NUR ---
NURSE NOTES: relayed to Dr Nichole that per vladimir Hamlin, pt refused snf
--- NOTE | 2018-07-05 15:36 | NUR ---
NURSE NOTES: called son paula who said he has work until 11pm and cant chicken picker pt right now. pt lives w son
--- NOTE | 2018-07-05 15:48 | Cardiac Electrophysiology PN ---
Assessment/Plan Assessment/Plan 1. Nonsustained ventricular tachycardia. Ruled out for TX. 12-lead EKG NSR, Nl ECG. Echocardiogram showed Nl EF 65% 2. Severe chronic obstructive pulmonary disease and pulmonary hypertension, on nebulizer and Zithromax. Nebulizer per Dr. Pinedo and antibiotics per Dr. Avalos. 3. Depression. 4. Hypoxia with elevated D Dimer. DC planning Subjective Subjective No CP or SOB. DC planning in progress.. Objective Last 24 Hour Vital Signs Date Time Temp Pulse Resp B/P (MAP) Pulse Ox O2 Delivery O2 Flow Rate FiO2 07/05/18 13:45 73 20 98 Nasal Cannula 2.0 28 07/05/18 13:29 74 18 97 Nasal Cannula 2.0 28 07/05/18 12:00 68 07/05/18 12:00 97.9 72 20 121/74 (90) 96 07/05/18 09:00 Nasal Cannula 2.0 07/05/18 08:44 73 18 98 Nasal Cannula 2.0 28 07/05/18 08:44 74 18 98 Nasal Cannula 2.0 28 07/05/18 08:43 74 18 98 Nasal Cannula 2.0 28 07/05/18 08:43 74 18 98 Nasal Cannula 2.0 28 07/05/18 08:00 97.3 75 20 100/64 (76) 98 07/05/18 08:00 77 07/05/18 07:46 71 18 97 Nasal Cannula 2.0 28 07/05/18 07:40 Nasal Cannula 2.0 28 07/05/18 07:40 92 Room Air 21 07/05/18 07:40 69 18 92 Room Air 21 07/05/18 04:00 97.7 71 20 131/76 (94) 98 07/05/18 04:00 70 07/05/18 01:36 72 18 99 Nasal Cannula 2.0 28 07/05/18 01:25 71 18 98 Nasal Cannula 2.0 28 07/05/18 00:00 65 07/05/18 00:00 97.8 72 20 98/76 (83) 100 07/04/18 21:00 Nasal Cannula 2.0 07/04/18 20:04 79 18 98 Nasal Cannula 2.0 28 07/04/18 20:00 98.5 78 18 99/69 (79) 98 07/04/18 20:00 79 07/04/18 19:54 83 18 97 Nasal Cannula 2.0 28 07/04/18 19:52 82 18 97 Nasal Cannula 2.0 28 07/04/18 19:51 82 18 97 Nasal Cannula 2.0 28 07/04/18 19:50 97 Nasal Cannula 2.0 28 07/04/18 19:50 Nasal Cannula 2.0 28 07/04/18 16:00 97.9 78 18 103/73 (83) 99 07/04/18 16:00 77 Intake and Output 07/04/18 07/05/18 19:00 07:00 Intake Total 360 ml 120 ml Output Total 950 ml 250 ml Balance -590 ml -130 ml Intake Oral 360 ml 120 ml Output Urine Total 950 ml 250 ml Objective HEAD AND NECK: No JVD. LUNGS: Clear. CARDIOVASCULAR: Regular S1 and S2 with no gallop or murmur. ABDOMEN: Soft. EXTREMITIES: No pitting edema. Lv Campbell MD Jul 05, 2018 15:48
[2018-07-05 16:00] VITALS: BP 109/71
--- NOTE | 2018-07-05 18:10 | NUR ---
NURSE NOTES: Left a message to Dr. Pinedo to clarify meds at discharge for Patient. Waiting for a call back.
--- NOTE | 2018-07-05 19:16 | NUR ---
NURSE NOTES: Verified Patient's pharmacy, passed information to Dr. Pinedo. Doctor to call in pharmacy for medication.
--- NOTE | 2018-07-05 19:26 | NUR ---
NURSE NOTES: confirmed with Dr. Pinedo medications had been called in for Patient at his own pharmacy. Patient and son made aware.
--- NOTE | 2018-07-05 19:53 | NUR ---
NURSE NOTES: Patient's VS stable. Son at bed side. Patient's belongings checked with Patient and son. IV and name band removed. professor of nursing removed cleaned and stored. Discharge documents printed and given to Patient. Teaching about discharge medications had been made throughout the day. Patient left the floor via wheelchair, accompanied by LINDSEY
--- NOTE | 2018-07-05 19:56 | Cardiology Report ---
APPROVED REPORT EKG Measurement Heart [id number] Normal sinus rhythm with sinus arrhythmia LVH Anterolateral infarct, age undetermined Abnormal ECG
--- NOTE | 2018-07-05 20:39 | General Progress Note ---
Assessment/Plan Problem List: (1) Major depressive disorder ICD Codes: F32.9 - Major depressive disorder, single episode, unspecified SNOMED: 308020452 (2) COPD exacerbation ICD Codes: J44.1 - Chronic obstructive pulmonary disease with (acute) exacerbation SNOMED: 475242573 (3) Chronic hypercapnic respiratory failure ICD Codes: J96.12 - Chronic respiratory failure with hypercapnia SNOMED: 993935855 (4) Hypoxia ICD Codes: R09.02 - Hypoxemia SNOMED: 191505035 Assessment/Plan copd exacerbation clearedd by pulmonary dc today Subjective ROS Limited/Unobtainable: Yes Allergies: Coded Allergies: No Known Allergies (Unverified , 06/05/18) Objective Last 24 Hour Vital Signs Date Time Temp Pulse Resp B/P (MAP) Pulse Ox O2 Delivery O2 Flow Rate FiO2 07/05/18 16:00 98.5 75 20 109/71 (84) 95 07/05/18 16:00 83 07/05/18 13:45 73 20 98 Nasal Cannula 2.0 28 07/05/18 13:29 74 18 97 Nasal Cannula 2.0 28 07/05/18 12:00 68 07/05/18 12:00 97.9 72 20 121/74 (90) 96 07/05/18 09:00 Nasal Cannula 2.0 07/05/18 08:44 73 18 98 Nasal Cannula 2.0 28 07/05/18 08:44 74 18 98 Nasal Cannula 2.0 28 07/05/18 08:43 74 18 98 Nasal Cannula 2.0 28 07/05/18 08:43 74 18 98 Nasal Cannula 2.0 28 07/05/18 08:00 97.3 75 20 100/64 (76) 98 07/05/18 08:00 77 07/05/18 07:46 71 18 97 Nasal Cannula 2.0 28 07/05/18 07:40 Nasal Cannula 2.0 28 07/05/18 07:40 92 Room Air 21 07/05/18 07:40 69 18 92 Room Air 21 07/05/18 04:00 97.7 71 20 131/76 (94) 98 07/05/18 04:00 70 07/05/18 01:36 72 18 99 Nasal Cannula 2.0 28 07/05/18 01:25 71 18 98 Nasal Cannula 2.0 28 07/05/18 00:00 65 07/05/18 00:00 97.8 72 20 98/76 (83) 100 07/04/18 21:00 Nasal Cannula 2.0 Intake and Output 07/04/18 07/05/18 19:00 07:00 Intake Total 360 ml 120 ml Output Total 950 ml 250 ml Balance -590 ml -130 ml Intake Oral 360 ml 120 ml Output Urine Total 950 ml 250 ml Height (Feet): 6 Height (Inches): 1.00 Weight (Pounds): 140 Neck: supple Cardiovascular: normal rate Respiratory/Chest: lungs clear Abdomen: soft Oskar Nichole MD Jul 05, 2018 20:39
--- NOTE | 2018-07-06 07:11 | NUR ---
CASE MANAGEMENT: PATIENT REFUSED SNF PLACEMENT AND WAS DISCHARGED HOME LAST NIGHT HE WAS REFERRED TO [facility] T: [phone] F: [phone] [facility] NEBULIZER SPOKE WITH PHILOMENA AT [facility] T: [phone] HOSPITAL ORDERS WERE FAXED 2 DAYS AGO PHILOMENA SAID SHE WOULD CONTACT DR VILA'S OFFICE DIRECTLY FOR ADDITIONAL ORDERS NEBULIZER TO BE DELIVERED TO THE HOME
--- NOTE | 2018-07-06 12:20 | Discharge Summary ---
Discharge Summary Discharge Summary _ DATE OF ADMISSION: 07/01/2018 DATE OF DISCHARGE: 07/05/2018 DISCHARGED BY: Dr. Oskar Saha CONSULTANTS: Dr. Jason Morel BRIEF HOSPITAL COURSE: Patient is a 72-year-old male, who was brought in by EMS after increased difficulty breathing. Patient has a history of COPD and is on home O2. He was admitted on May last year with trilogy 100 ventilator and with home O2. He had been using his O2 and vent as directed, but stated he had not been using any inhalers. He was noted to have increased difficulty breathing for the past 3 days, worse with supine position. He denied chest discomfort. Denied vomiting, denied fever. He has medical history significant for COPD, CHF and mild depressive disorder. On evaluation at the ED, he was saturating 94% on 4 L nasal cannula. He was given breathing treatments as well as IV steroids. He was started on supplemental oxygen. Chest x-ray showed normal cardiac size with tortuous aorta and bilateral emphysematous changes with hyper inflation. He had a recent CT scan of the chest on May last year that showed similar findings. Patient's ABG showed compensatory respiratory acidosis with elevated PCO2 and markedly elevated bicarbonate. He was noted to have some improvement after breathing treatment however continued to be hypoxic. He was then admitted for evaluation of COPD exacerbation and hypoxia. Police Officer Booking was consulted. He was continued on O2 support. He was given nebulizer treatment. Patient was ordered BiPAP 12/5 nightly, but patient refused. He was started on Spiriva and Advair. He was given a low prednisone 40 mg daily and azithromycin. D-dimer was noted to be elevated to 1.1. Venous duplex was ordered, however, patient refused. He also refused VQ scan. While admitted, he was noted to have nonsustained ventricular tachycardia of 5 beats. Csr was consulted. Troponin was negative x2. Twelve-lead electrocardiogram showed normal sinus rhythm with no acute changes. Echocardiogram showed ejection fraction of 60-65% with right ventricular systolic pressure of 65 mmHg, consistent with severe pulmonary hypertension. He was ruled out for MO. Pathologist was consulted for evaluation of anemia. Anemia workup showed ferritin level of 307. Iron or Epogen not indicated. Patient had less cough and less shortness of breath. There was no wheezing. He was saturating well on 2 L nasal cannula. He completed 5 days of prednisone and azithromycin. He was encouraged compliance with O2 and trilogy 100 at home. He was recommended need for outpatient follow-up for PFT, PSG and consideration for RHC. He was eventually cleared for discharge home. FINAL DIAGNOSES: Acute COPD exacerbation Chronic hypercapnic respiratory failure Pulmonary hypertension Hypoxia Elevated d-dimer Major depressive disorder Nonsustained ventricular tachycardia Anemia due to underlying chronic medical issues DISPOSITION: Patient was discharged home with home health. DISCHARGE MEDICATIONS: Refer to Discharge Medication List. DISCHARGE INSTRUCTIONS: Follow-up in a week. I have been assigned to dictate discharge summary on this account, and I was not involved in the patient's management. Ashley Mo NP Jul 06, 2018 12:20
== END 2018-07-05 19:53 | disposition home health service (06) | DRG 191 ==
LOC: EDBD 14:00 → EMR 14:15 → 2E 14:30 → EDBEDREQ 07-02 06:53 → 2E 07-03 23:22
DX: J44.1 Chronic obstructive pulmonary disease with (acute) exacerbation (principal); J96.12 Chronic respiratory failure with hypercapnia; I47.2 Ventricular tachycardia; J96.11 Chronic respiratory failure with hypoxia; I27.20 Pulmonary hypertension, unspecified; D63.8 Anemia in other chronic diseases classified elsewhere; F32.9 Major depressive disorder, single episode, unspecified; Z99.81 Dependence on supplemental oxygen; Z87.891 Personal history of nicotine dependence
CPT/HCPCS: 36415; 36600; 71045; 80053; 82728; 82803; 83690; 84443; 84484; 85025; 85379; 86710; 93005; 93306; 94640; 94660; 94664; 94760; 96374; 99285; J7620

== ENCOUNTER 2018-11-29 01:30 | Inpatient (IN) | payer MEDICARE ==
[~2018-11-29] VITALS: Ht 182.9 cm; Wt 74.8 kg
[~2018-11-29 01:30] MED LIST: ADVAIR 250-501 EACH INH; DUONEB 0.5-3(2.53 ML HHN; FLUTICASONE PRO16 G1 NASAL; GUAIFENESI100 MG/5 M ORAL; HEPARIN SO5000 UNIT2 SUBQ; MUCINEX600 MG PO; SPIRIVA18 MCG INH; prednisone ORAL
[2018-11-29] MEDS ORDERED: UNOBMED (01:35)
--- NOTE | 2018-11-29 01:35 | NUR ---
ED Nurse Note: Pt BIBA from home, c/o SOB, resp distress. Pt found in tripod position, SPo2 at scene was 68% on room air. Pt is responsive to name. Sitting high fowlers with eyes closed, calm.
[2018-11-29 01:40] VITALS: BP 111/67
[2018-11-29] MEDS ORDERED: Ipratropium 0.02% Inh Soln 2.5ml UD HHN ONE (01:45)
[2018-11-29] MEDS ORDERED: Albuterol ud Inhalation HHN ONE (01:45)
[2018-11-29] MEDS ORDERED: Solu-MEDROL 125mg Inj IVP ONE (02:00)
--- NOTE | 2018-11-29 02:05 | NUR ---
RESPIRATORY NOTE: Pt came in ED c/o SOB. Pt labored breathing, desaturating, & becoming more lethargic. Pt still able to follow commands. Pt placed on BiPAP 12/5, backup rate 16, 25% per MD Rick. Pt on a Facial mask, skin intact, no redness/breakdowns noted. Foam tape applied on pt's nosebridge/cheeks to prevent any irritations. B/S bogdan. diminished, nonproductive cough. BiPAP plugged into red outlet. Breathing tx currently being given. Will continue to monitor pt.
--- NOTE | 2018-11-29 02:15 | NUR ---
RESPIRATORY NOTE: BiPAP settings changed to 25/5, backup rate 16, 30% after ABG was taken. MD Rick made aware. Pt more awake, talking, work of breathing decreased. Will continue to monitor pt.
--- NOTE | 2018-11-29 02:15 | Emergency Room Report ---
History of Present Illness General Chief Complaint: Dyspnea/Respdistress Source: Patient, Family Member, EMS Present Illness HPI Patient is a 72-year-old male brought in by EMS after increased difficulty with breathing. Patient was noted to have decreased saturation. Patient a prior history of COPD. He had previous hospitalizations at this facility for similar symptoms in the past. Patient was noted to be markedly hypoxic by EMS and was started on supplemental oxygen. He was noted to have saturation initially in the 70s. He had prior history of severe emphysema. Patient had been not noted to have any fever. History is markedly limited by patient's mental status. Allergies: Coded Allergies: No Known Allergies (Unverified , 06/05/18) Patient History Past Medical History: see triage record Reviewed Nursing Documentation: PMH: Agreed; PSxH: Agreed Nursing Documentation-PMH Hx Cardiac Problems: Yes Hx Hypertension: Yes Hx Asthma: Yes Hx COPD: Yes Hx Diabetes: Yes Hx Cancer: No Hx Gastrointestinal Problems: No Hx Neurological Problems: No Review of Systems All Other Systems: limited - By mental status. Physical Exam Vital Signs Date Time Temp Pulse Resp B/P (MAP) Pulse Ox O2 Delivery O2 Flow Rate FiO2 11/29/18 01:31 80 30 132/80 (97) 99 Bi-pap 11/29/18 01:43 25 General Appearance: cachetic, thin, Chronically Ill Eyes: bilateral eye PERRL ENT: dry mucus membranes Neck: limited range of motion Respiratory: decreased breath sounds, wheezing Cardiovascular #1: regular rate, rhythm Gastrointestinal: normal inspection Neurologic: other - somnolent, confused Psychiatric: normal inspection Skin: normal inspection, normal color Medical Decision Making Diagnostic Impression: Primary Impression: COPD with exacerbation Additional Impressions: CO2 retention Hyperkalemia ER Course Patient presented for shortness of breath. Differential diagnosis include was not limited to pneumonia, COPD exacerbation, chronic bronchitis among others. Because of complexity of patient's case laboratory testing and imaging studies were ordered. Patient was noted to be markedly somnolent initially after started on supplemental oxygen by EMS. Patient was started on BiPAP. His oxygen FiO2 was titrated downward. Patient was noted to have improvement his mental status. A arterial blood gas showed evidence of respiratory acidosis with a PCO2 of 112 PO2 was 59. Patient is noted to be normotensive. He was given breathing treatments. He was noted to have improvement in his mental status after lowering oxygen FIO2. Labs Test 11/29/18 02:35 11/29/18 03:19 11/29/18 03:21 White Blood Count 7.2 K/UL (4.8-10.8) Red Blood Count 4.33 M/UL (4.70-6.10) Hemoglobin 12.6 G/DL (14.2-18.0) Hematocrit 42.1 % (42.0-52.0) Mean Corpuscular Volume 97 FL (80-99) Mean Corpuscular Hemoglobin 29.0 PG (27.0-31.0) Mean Corpuscular Hemoglobin Concent 29.9 G/DL (32.0-36.0) Red Cell Distribution Width 15.3 % (11.6-14.8) Platelet Count 164 K/UL (150-450) Mean Platelet Volume 6.6 FL (6.5-10.1) Neutrophils (%) (Auto) 67.2 % (45.0-75.0) Lymphocytes (%) (Auto) 20.6 % (20.0-45.0) Monocytes (%) (Auto) 8.9 % (1.0-10.0) Eosinophils (%) (Auto) 2.4 % (0.0-3.0) Basophils (%) (Auto) 1.0 % (0.0-2.0) Arterial Blood pH 7.402 (7.350-7.450) Arterial Blood Partial Pressure CO2 76.4 mmHg (35.0-45.0) Arterial Blood Partial Pressure O2 55.9 mmHg (75.0-100.0) Arterial Blood HCO3 46.5 mmol/L (22.0-26.0) Arterial Blood Oxygen Saturation 90.3 % (95-100) Arterial Blood Base Excess 17.8 (-2-2) Delon Test Positive Sodium Level 142 MMOL/L (136-145) Potassium Level 5.8 MMOL/L (3.5-5.1) Chloride Level 100 MMOL/L (98-107) Carbon Dioxide Level 43 MMOL/L (21-32) Anion Gap -1 mmol/L (5-15) Blood Urea Nitrogen 20 mg/dL (7-18) Creatinine 0.7 MG/DL (0.55-1.30) Estimat Glomerular Filtration Rate mL/min (>60) Glucose Level 74 MG/DL (74-106) Calcium Level 9.1 MG/DL (8.5-10.1) Total Bilirubin 0.5 MG/DL (0.2-1.0) Aspartate Amino Transf (AST/SGOT) 46 U/L (15-37) Alanine Aminotransferase (ALT/SGPT) 46 U/L (12-78) Alkaline Phosphatase 91 U/L (46-116) Total Protein 7.3 G/DL (6.4-8.2) Albumin 3.7 G/DL (3.4-5.0) Globulin 3.6 g/dL Albumin/Globulin Ratio 1.0 (1.0-2.7) Last Vital Signs Date Time Temp Pulse Resp B/P (MAP) Pulse Ox O2 Delivery O2 Flow Rate FiO2 11/29/18 01:44 71 21 99 Facial 25 11/29/18 01:31 132/80 (97) Status: unchanged Disposition: ADMITTED INPATIENT Condition: Serious Referrals: NOT CHOSEN IPA/,REFERRING (PCP) Kolby Cabrera MD Nov 29, 2018 02:15
[2018-11-29 02:53] LABS: EOSINOPHILS % (AUTO) 2.4 % (0.0-3.0); HEMATOCRIT 42.1 % (42.0-52.0); HEMOGLOBIN 12.6 G/DL (14.2-18.0); LYMPHOCYTES % (AUTO) 20.6 % (20.0-45.0); MEAN CORPUSCULAR VOLUME 97 FL (80-99); MONOCYTES % (AUTO) 8.9 % (1.0-10.0); NEUTROPHILS % (AUTO) 67.2 % (45.0-75.0); PLATELET COUNT 164 K/UL (150-450); RED BLOOD COUNT 4.33 M/UL (4.70-6.10); RED CELL DISTRIBUTION WIDTH 15.3 % (11.6-14.8); WHITE BLOOD COUNT 7.2 K/UL (4.8-10.8)
--- NOTE | 2018-11-29 03:30 | NUR ---
ED Nurse Note: Pt resting, pt awake and alert x4, talking with sons at bedside. Pt reports improved ventilation. No further orders at this time, will continue to monitor.
[2018-11-29 03:40] VITALS: BP 123/75
[2018-11-29 03:53] LABS: ANION GAP -1 mmol/L (5-15); BLOOD UREA NITROGEN 20 mg/dL (7-18); CALCIUM 9.1 MG/DL (8.5-10.1); CHLORIDE 100 MMOL/L (98-107); CREATININE 0.7 MG/DL (0.55-1.30); POTASSIUM 5.8 MMOL/L (3.5-5.1); SODIUM 142 MMOL/L (136-145)
[2018-11-29 03:56] LABS: CARBON DIOXIDE 43 MMOL/L (21-32)
[2018-11-29 03:58] LABS: ALANINE AMINOTRANSFERASE 46 U/L (12-78); ALBUMIN 3.7 G/DL (3.4-5.0); ALKALINE PHOSPHATASE 91 U/L (46-116); ASPARTATE AMINO TRANSFERASE 46 U/L (15-37); BILIRUBIN,TOTAL 0.5 MG/DL (0.2-1.0)
--- NOTE | 2018-11-29 05:30 | NUR ---
ED Nurse Note: Pt R side lying, nonlabored breathing, will continue to monitor.
[2018-11-29 05:45] VITALS: BP 132/84
[2018-11-29 05:50] VITALS: BP 105/76
--- NOTE | 2018-11-29 06:00 | NUR ---
TRANSFER TO FLOOR: Patient transferred to as ordered, per Dr James. Report given to GENNY morocho.Family and or S/O informed of transfer.
--- NOTE | 2018-11-29 06:01 | NUR ---
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 Pt A/Ox4, personnel monitor shows SR. Pt currently on bipap 05/23 @ 30%. Currently tolerating well, showing no signs of acute distress. Condom catheter placed and draining appropriately. No skin issues noted aside from flakiness/dryness of lower extremities. Pt has a LAC22g, saline locked, patent and asymptomatic. VSS. Blood cultures pending. Will continue to monitor and with patients plan of care.
--- NOTE | 2018-11-29 07:12 | NUR ---
NURSE NOTES: Report given to GENNY Doss.
--- NOTE | 2018-11-29 07:28 | NUR ---
NURSE NOTES: received patient report from sally sepulveda. patient is on bed awake. on bipap. no report of arrythmias reported since patient came on the floor.sr on the monitor. under the care of dr lujan. priscilla melissa plan of care.
[2018-11-29] MEDS ORDERED: Acetaminophen 500mg (ES) tab ORAL PRN (09:00)
[2018-11-29] MEDS ORDERED: guaiFENesin 100mg/5ml Liq ud ORAL PRN (09:30)
--- NOTE | 2018-11-29 09:37 | Diagnostic Imaging Report ---
Indication: Shortness of breath for one day Technique: One view of the chest Comparison: 07/01/2018 Findings: The heart size is normal. The aorta is tortuous. The lungs are hyperinflated. No definite acute infiltrates, effusions, or congestion. No significant interim change Impression: COPD changes. No definite acute abnormality
--- NOTE | 2018-11-29 11:21 | NUR ---
CASE MANAGEMENT: INITIAL REVIEW 11/29/2018 72 YO Alla COHEN FROM HOME CC: DYSPNEA PMHx: HTN. ASTHMA. COPD. DM. SI:COPD EXACERBATION. HR 80 RR 30 B/P 132/80 SATS 99% ON BIPAP FiO2 25% K 5.8 CO2 43 BUN 20 AST 46 ABGs pH 7.276 pCO2 112.5 pO2 59.9 HCO3 51.2 O2 SAT 89.1 BE 19.1 IS: DUEdvin NEB HHN X1 SOLU MEDROL IV X1 PATIENT ADMITTED TO [facility] 11/29/2018 @ 0216 DCP: PATIENT TO BE DISCHARGED TO HOME ONCE MEDICALLY CLEARED. PLAN OF CARE: BIPAP ST EVAL Addendum: 11/29/18 at 1436 by Tonya Pepper CM INTERQUAL MET
[2018-11-29] MEDS: cefTRIAXone 1 GM in D5W 55 ML IVPB SCH (12:02)
[2018-11-29] MEDS: NovoLOG Insulin Flexpen SUBQ SCH ×3 (12:16→21:15)
--- NOTE | 2018-11-29 13:03 | NUR ---
ST NOTE: BEDSIDE SWALLOW EVAL RECEIVED BEDSIDE SWALLOW EVAL ORDER CHART REVIEWED PRIOR THE EVALUATION PT IS A 72-YEAR-OLD MALE WHO WAS ADMITTED FOR COPD EXACERBATION, PT REQUIRED BIPAP UPON ARRIVING AT THE HOSPITAL. PER CXR: The heart size is normal. The aorta is tortuous. The lungs are hyperinflated. No definite acute infiltrates, effusions, or congestion. No significant interim change PT HAS H/O COPD, SOB, H/O SMOKING, EMPHYSEMA, HTN. PER B/S EVAL IN 05/2018 AT [facility]: MISSING SOME TEETH, GOOD MASTICATION TIME, GROSSLY FUNCTION WITH THIN, PUREE AND CRACKER. NO OVERT S/S OF ASPIRATION. HOWEVER, PT DESATURATED TO LOW 90s WITHOUT THE MASK. PT HAS RISK FOR ASPIRATION DUE TO PT CURRENT RESP ISSUE. RECOMMENDED MECH SOFT(FINELY CHOPPED) WITH THIN LIQUID DIET AND ADVANCED DIET TOLERATED. CURRENT STATUS: PT SEEN AT BEDSIDE IN PM DURING LUNCH. PT WITH NC(6 TO 8L). SPO2: 100/81. REQUIRED MAX ENCOURAGEMENT TO PARTICIPATE. WAS ABLE TO ONLY TO SEE PT EATING MASTICATED SOLID FOOD. INITIAL IMPRESSION: MISSING TEETH SLOW MASTICATION TIME BUT SEEMS FUNCTIONAL MILDLY INCREASED ORAL TRANSIT TIME(3 TO 4 SECONDS) UNTIL PT INITIATED PHARYNGEAL SWALLOW, FAIR TO GOOD LARYNGEAL ELEVATION, NO OVERT S/S OF ASPIRATION. DISCUSSED WITH JONEL ROYAL, PT TOLERATED BREAKFAST(SOFT EASY CHEW WITH THIN LIQUIDS) WITHOUT OVERT S/S OF ASPIRATION. RECOMMENDATIONS: 1. CONTINUE SOFT, EASY CHEW WITH THIN LIQUIDS DIET 2. ASPIRATION PRECAUTIONS 3. SKILLED ST SERVICE TO FOLLOW UP X 1 TO 2 TIMES. 4. CONSIDER MODIFIED BARIUM SWALLOW STUDY IF NEEDED. D/W PT AND JONEL ROYAL.
[2018-11-29] MEDS: Solu-MEDROL 125mg Inj IVP SCH ×2 (14:50→21:30)
[2018-11-29] MEDS ORDERED: Sodium Polystyrene Sulfonate 15gm Powder ORAL SCH (15:00)
--- NOTE | 2018-11-29 15:02 | Consultation ---
Consult Note Consult Note asked to eval for hyperkalemia Patient is a 72-year-old male brought in by EMS after increased difficulty with breathing. Patient was noted to have decreased saturation. Patient a prior history of COPD. He had previous hospitalizations at this facility for similar symptoms in the past. Patient was noted to be markedly hypoxic by EMS and was started on supplemental oxygen. He was noted to have saturation initially in the 70s. He had prior history of severe emphysema. Patient had been not noted to have any fever. History is markedly limited by patient's mental status. No Known Allergies (Unverified , 06/05/18) Hx Cardiac Problems: Yes Hx Hypertension: Yes Hx Asthma: Yes Hx COPD: Yes Hx Diabetes: Yes examined data reviewed Assessment/Plan : COPD with exacerbation CO2 retention Hyperkalemia Kayexelate BIPAP optimize pulm state monitor lytes 2D echo steroids, taper as possible Felipe Salmon MD Nov 29, 2018 15:02
[2018-11-29 16:13] LABS: APPEARANCE,URINE CLEAR; BILIRUBIN, URINE NEGATIVE (NEGATIVE); GLUCOSE, URINE (UA) NEGATIVE (NEGATIVE); KETONES,URINE 3+ (NEGATIVE); LEUKOCYTE ESTERASE ,URINE NEGATIVE (NEGATIVE); NITRITE,URINE NEGATIVE (NEGATIVE); PH,URINE 7 (4.5-8.0); PROTEIN,URINE 1+ (NEGATIVE); UROBILINOGEN,URINE 1 MG/DL (0.0-1.0)
[2018-11-29 16:14] LABS: COLOR,URINE YELLOW
--- NOTE | 2018-11-29 17:15 | Consultation ---
DATE OF CONSULTATION: 11/29/2018 INFECTIOUS DISEASE CONSULTATION CONSULTING PHYSICIAN: William Avalos M.D. PRIMARY ATTENDING PHYSICIAN: Oskar Nichole M.D. REASON FOR CONSULT: COPD exacerbation. HISTORY OF PRESENT ILLNESS: This is a 72-year-old male, admitted today from home, complaining of shortness of breath at the decrease in O2 saturation to 70%, productive coughing. The patient has a history of COPD and was on oxygen at home. He has a previous admission to hospital in June of 2018. PAST MEDICAL HISTORY: COPD, diabetes mellitus, hypertension, hypercapnic respiratory failure. ALLERGIES: No known drug allergies. MEDICATIONS: Getting heparin, doxycycline, methylprednisone, insulin, albuterol. SOCIAL HISTORY: Lives at home. Smoker, stopped smoking two years ago. He is a . No history of alcohol or drug abuse. REVIEW OF SYSTEMS: No fever. No chills. He has some runny nose, productive cough, shortness of breath. No nausea. No vomiting. No diarrhea. No problem passing urine. PHYSICAL EXAMINATION: VITAL SIGNS: Temperature 98.4, pulse 79, blood pressure 135/76. GENERAL APPEARANCE: Seems to be thin, cachectic. HEAD AND NECK: The patient has a BiPAP. HEART: Normal rate. LUNGS: Decreased expansion and sound. ABDOMEN: Soft and nontender. EXTREMITIES: No edema. He has muscle atrophy. NEUROLOGIC: He is awake, alert, and oriented. LABORATORY DATA: WBC 7.2, hemoglobin 12.6, hematocrit 42.1, and platelets is 164,000. Sodium 142, potassium 5.8, chloride 100, bicarb 43, BUN 20, creatinine 0.7, glucose 74. Lactic acid shows the pH of 7.402, pCO2 of 76.4, pO2 of 55.9, and oxygen saturation 90.3%. IMPRESSION: 1. COPD exacerbation. 2. Hypercapnic, hypoxic respiratory failure. 3. Diabetes mellitus. 4. Hypertension. 5. Hypokalemia. 6. Muscular wasting. RECOMMENDATION: Continue with doxycycline and add ceftriaxone. We will continue with prednisone and bronchodilators. At the end of my exam, I thank Dr. Nichole for involving me in the care of this patient. William Avalos M.D. DR: BELLA JOB#: [id number] CC: GUSTAVO
--- NOTE | 2018-11-29 19:02 | NUR ---
HAND-OFF: Report given to patience sepulveda.
[2018-11-29] MEDS: Albuterol/Ipratropium 3ml neb HHN SCH ×2 (19:08→22:49)
--- NOTE | 2018-11-29 19:15 | NUR ---
NURSE NOTES: Received patient from GENNY Doss. patient is sleeping, verbally responsive to commands. denies pain at this time. patient is on BiPAP. no s/sx of respiratory distress at this time. IV site is patent and intact. bed in lowest position and locked, siderails up X2, call light within reach. will continue to monitor.
[2018-11-29 20:00] VITALS: BP 103/62
[2018-11-29 20:38] LABS: BLOOD UREA NITROGEN 29 mg/dL (7-18); CALCIUM 8.6 MG/DL (8.5-10.1); CHLORIDE 98 MMOL/L (98-107); POTASSIUM 4.7 MMOL/L (3.5-5.1); SODIUM 145 MMOL/L (136-145)
[2018-11-29 20:41] LABS: CARBON DIOXIDE > 45 MMOL/L (21-32)
--- NOTE | 2018-11-29 20:58 | Pulmonology Progress Note ---
Assessment/Plan Assessment/Plan Pulmonary Consultation HPI Patient is a 72-year-old male with COPD, admitted with increased difficulty with breathing. He has had previous hospitalizations at this facility for COPD exaccerbations. Noted to have Hypoxic and Hypecapneic respiratory failure. He had prior history of severe emphysema. Patient had been not noted to have any fever. History is markedly limited by patient's mental status. Allergies: No Known Allergies Past Medical History: Severe COPD on home oxygen and BiPAP, Cardiac Disease, Hypertension, Diabetes All Other Systems: limited - By mental status. Physical Exam Vital Signs Noted Date Time Temp Pulse Resp B/P (MAP) Pulse Ox O2 Delivery O2 Flow Rate FiO2 11/29/18 01:31 80 30 132/80 (97) 99 Bi-pap 11/29/18 01:43 25 General Appearance: cachetic, thin, Chronically Ill Eyes: bilateral eye PERRL ENT: dry mucus membranes Neck: limited range of motion Respiratory: decreased breath sounds, wheezing Cardiovascular: regular rate, rhythm, normal HS Gastrointestinal: normal inspection Neurologic: other - somnolent, confused Psychiatric: normal inspection Skin: normal inspection, normal color Impression: COPD with exacerbation Hypoxic and Hypercapneic respiratory failure Hyperkalemia Severe COPD on home oxygen and BiPAP Cardiac Disease Hypertension Diabetes Plan: IV Steroids HHN BiPAP - 02/11 Repeat ABG 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1) Neutrophils (%) (Auto) 67.2 % (45.0-75.0) Lymphocytes (%) (Auto) 20.6 % (20.0-45.0) Monocytes (%) (Auto) 8.9 % (1.0-10.0) Eosinophils (%) (Auto) 2.4 % (0.0-3.0) Basophils (%) (Auto) 1.0 % (0.0-2.0) Arterial Blood pH 7.402 (7.350-7.450) Arterial Blood Partial Pressure CO2 76.4 mmHg (35.0-45.0) Arterial Blood Partial Pressure O2 55.9 mmHg (75.0-100.0) Arterial Blood HCO3 46.5 mmol/L (22.0-26.0) Arterial Blood Oxygen Saturation 90.3 % (95-100) Arterial Blood Base Excess 17.8 (-2-2) Delon Test Positive Sodium Level 142 MMOL/L (136-145) Potassium Level 5.8 MMOL/L (3.5-5.1) Chloride Level 100 MMOL/L (98-107) Carbon Dioxide Level 43 MMOL/L (21-32) Anion Gap -1 mmol/L (5-15) Blood Urea Nitrogen 20 mg/dL (7-18) Creatinine 0.7 MG/DL (0.55-1.30) Estimat Glomerular Filtration Rate mL/min (>60) Glucose Level 74 MG/DL (74-106) Calcium Level 9.1 MG/DL (8.5-10.1) Total Bilirubin 0.5 MG/DL (0.2-1.0) Aspartate Amino Transf (AST/SGOT) 46 U/L (15-37) Alanine Aminotransferase (ALT/SGPT) 46 U/L (12-78) Alkaline Phosphatase 91 U/L (46-116) Total Protein 7.3 G/DL (6.4-8.2) Albumin 3.7 G/DL (3.4-5.0) Globulin 3.6 g/dL Albumin/Globulin Ratio 1.0 (1.0-2.7) CXR noted, no focal infiltrates Subjective ROS Limited/Unobtainable: No Allergies: Coded Allergies: No Known Allergies (Unverified , 06/05/18) Objective Last 24 Hour Vital Signs Date Time Temp Pulse Resp B/P (MAP) Pulse Ox O2 Delivery O2 Flow Rate FiO2 11/29/18 19:17 68 18 100 Bi-pap 30 11/29/18 19:10 78 26 100 Facial 30 11/29/18 19:09 66 17 100 Bi-pap 30 11/29/18 17:04 82 19 98 Facial 30 11/29/18 16:00 30 11/29/18 16:00 71 11/29/18 16:00 Bi-pap 11/29/18 15:05 79 19 98 Full Face 30 11/29/18 13:05 81 17 97 Full Face 30 11/29/18 12:00 30 11/29/18 12:00 93 11/29/18 12:00 Bi-pap 11/29/18 11:28 83 16 95 Full Face 30 11/29/18 09:00 30 11/29/18 09:00 Bi-pap 11/29/18 08:52 79 16 95 Facial 30 11/29/18 08:00 72 11/29/18 07:38 Bi-pap 11/29/18 07:07 77 16 94 Facial 30 11/29/18 06:05 98.4 80 30 135/76 89 Bi-pap 30 11/29/18 05:50 99.0 88 16 105/76 (86) 98 11/29/18 05:45 98.6 78 30 132/84 92 Bi-pap 30 11/29/18 04:45 74 16 95 Facial 30 11/29/18 03:43 80 17 95 Facial 30 11/29/18 03:40 97.8 72 22 123/75 93 Bi-pap 30 11/29/18 02:14 30 11/29/18 02:13 74 16 92 Bi-pap 30 11/29/18 02:00 75 16 90 Bi-pap 25 11/29/18 01:44 71 21 99 Facial 25 11/29/18 01:43 71 19 99 Bi-pap 25 11/29/18 01:40 77 26 Bi-pap 30 11/29/18 01:40 98.6 77 24 111/67 95 Bi-pap 30 11/29/18 01:31 98.6 80 30 132/80 (97) 99 Bi-pap Microbiology Date/Time Source Procedure Growth Status 11/29/18 14:00 Nose - Final Complete 11/29/18 14:00 Nose - Final Complete Laboratory Tests 11/29/18 01:52: Arterial Blood pH 7.276L, Arterial Blood Partial Pressure CO2 112.5*H, Arterial Blood Partial Pressure O2 59.9L, Arterial Blood HCO3 51.2*H, Arterial Blood Oxygen Saturation 89.1*L, Arterial Blood Base Excess 19.1*H, Delon Test Positive 11/29/18 02:35: White Blood Count 7.2, Red Blood Count 4.33L, Hemoglobin 12.6L, Hematocrit 42.1 , Mean Corpuscular Volume 97, Mean Corpuscular Hemoglobin 29.0, Mean Corpuscular Hemoglobin Concent 29.9L, Red Cell Distribution Width 15.3H, Platelet Count 164, Mean Platelet Volume 6.6, Neutrophils (%) (Auto) 67.2, Lymphocytes (%) (Auto) 20.6, Monocytes (%) (Auto) 8.9, Eosinophils (%) (Auto) 2.4, Basophils (%) (Auto) 1.0 11/29/18 03:19: Arterial Blood pH 7.402, Arterial Blood Partial Pressure CO2 76.4*H, Arterial Blood Partial Pressure O2 55.9L, Arterial Blood HCO3 46.5*H, Arterial Blood Oxygen Saturation 90.3L, Arterial Blood Base Excess 17.8*H, Delon Test Positive 11/29/18 03:21: Sodium Level 142, Potassium Level 5.8H, Chloride Level 100, Carbon Dioxide Level 43*H, Anion Gap -1L, Blood Urea Nitrogen 20H, Creatinine 0.7, Estimat Glomerular Filtration Rate , Glucose Level 74, Calcium Level 9.1, Total Bilirubin 0.5, Aspartate Amino Transf (AST/SGOT) 46H, Alanine Aminotransferase ( ALT/SGPT) 46, Alkaline Phosphatase 91, Troponin I 0.004, Total Protein 7.3, Albumin 3.7, Globulin 3.6, Albumin/Globulin Ratio 1.0 11/29/18 13:30: RSV Nasal Swab [Pending] 11/29/18 15:50: Urine Color Yellow, Urine Appearance Clear, Urine pH 7, Urine Specific Zap 1.010, Urine Protein 1+H, Urine Glucose (UA) Negative, Urine Ketones 3+H, Urine Blood Negative, Urine Nitrite Negative, Urine Bilirubin Negative, Urine Urobilinogen 1H, Urine Leukocyte Esterase Negative, Urine RBC 0-2H, Urine WBC 0- 2, Urine Squamous Epithelial Cells Few, Urine Bacteria ModerateH 11/29/18 16:34: Arterial Blood pH 7.250*L, Arterial Blood Partial Pressure CO2 121.6*H, Arterial Blood Partial Pressure O2 158.7H, Arterial Blood HCO3 52.5*H, Arterial Blood Oxygen Saturation 98.4, Arterial Blood Base Excess 20.1*H, Delon Test Positive 11/29/18 20:00: Sodium Level 145, Potassium Level 4.7, Chloride Level 98, Carbon Dioxide Level > 45*H, Blood Urea Nitrogen 29H, Creatinine 1.0, Estimat Glomerular Filtration Rate , Glucose Level 160H, Calcium Level 8.6 Current Medications Medications (Trade) Dose Ordered Sig/Brittani Route PRN Reason Start Time Stop Time Status Last Admin Dose Admin Acetaminophen (Tylenol) 650 mg Q6H PRN ORAL Mild Pain/Temp > 100.5 11/29/18 09:15 12/29/18 08:59 Albuterol/ Ipratropium (Albuterol/ Ipratropium) 3 ml Q4HRT HHN 11/29/18 11:00 12/04/18 10:59 11/29/18 19:08 Ceftriaxone Sodium 1 gm/ Dextrose 55 ml @ 110 mls/hr Q24H IVPB 11/29/18 11:00 12/06/18 10:59 11/29/18 12:02 Dextrose (Dextrose 50%) 25 ml Q30M PRN IV Hypoglycemia 11/29/18 09:30 12/29/18 09:29 Dextrose (Dextrose 50%) 50 ml Q30M PRN IV Hypoglycemia 11/29/18 09:30 12/29/18 09:29 Doxycycline Monohydrate (Doxycycline Monohydrate) 100 mg Q12HR ORAL 11/29/18 21:00 12/06/18 20:59 Guaifenesin (Robitussin) 200 mg Q6H PRN ORAL For Cough 11/29/18 09:30 12/29/18 09:29 Heparin Sodium (Porcine) (Heparin 5000 units/ml) 5,000 units EVERY 12 HOURS SUBQ 11/29/18 21:00 12/29/18 20:59 Insulin Aspart (NovoLOG) BEFORE MEALS AND HS SUBQ 11/29/18 11:30 12/29/18 11:29 11/29/18 16:49 Methylprednisolone Sodium Succinate (Solu-MEDROL) 60 mg EVERY 8 HOURS IVP 11/29/18 14:00 12/29/18 13:59 11/29/18 14:50 Ondansetron HCl (Zofran) 4 mg Q8H PRN IVP Nausea & Vomiting 11/29/18 09:15 12/29/18 09:14 Pantoprazole (Protonix) 40 mg DAILY ORAL 11/29/18 15:15 12/29/18 15:14 11/29/18 16:05 Johny White MD Nov 29, 2018 20:58
[2018-11-29] MEDS: Heparin 5000 units/ml inj SUBQ SCH (21:16)
[2018-11-30] VITALS: BP 119/60
--- NOTE | 2018-11-30 00:24 | NUR ---
HAND-OFF: Report given to GENNY Rm. patient is in stable condition.
--- NOTE | 2018-11-30 00:25 | NUR ---
NURSE NOTES: Received a bedside report from GENNY Mac.Patient stable,SR on fruit dumper,no c/o pain,no respiratory distress noted at this moment,pt on BiPAP 17/5 FiO2 30%,BS active in all quadrants,bed secured,call light within a reach,will continue to monitor.
--- NOTE | 2018-11-30 01:15 | History and Physical Report ---
DATE OF ADMISSION: 11/29/2018 HISTORY OF PRESENT ILLNESS: The patient comes in with COPD exacerbation for one day. No fever. PCO2 was elevated. He is currently on BiPAP and transferred to . The patient received Solu-Medrol and breathing treatment, admitted for COPD exacerbation. The patient is a smoker and complains of worsening shortness of breath, cough, and wheezing. PAST MEDICAL HISTORY: COPD, depression, history of pulmonary hypertension. PAST SURGICAL HISTORY: None. ALLERGIES: No known allergies. MEDICATIONS: Takes inhalers . SOCIAL HISTORY: History of smoking. No history of alcohol or illicit drugs. FAMILY HISTORY: Noncontributory. REVIEW OF SYSTEMS: HEENT: Denies headaches. RESPIRATORY: Reports shortness of breath, nonproductive cough for the past couple of days that is getting worse. GASTROINTESTINAL: Denies nausea, vomiting, or diarrhea. CARDIOVASCULAR: Denies chest pain. Denies orthopnea. EXTREMITIES: Denies pain. CENTRAL NERVOUS SYSTEM: Denies change in vision or speech pattern. PHYSICAL EXAMINATION: VITAL SIGNS: Temperature 97.2, pulse is 82, blood pressure is not recorded. NECK: Supple. CHEST: Bibasilar wheezing. CARDIOVASCULAR: Regular rate and rhythm. No murmurs or extra sounds. GASTROINTESTINAL: Soft, nontender, and nondistended. No organomegaly. EXTREMITIES: No edema. Reflexes in both sides. Moves all four extremities. NEUROLOGIC: Oriented x2. LABORATORY DATA: WBC 7.2, hemoglobin 12.6, and platelets of 164. Sodium 142, potassium 5.8, carbon dioxide 43, BUN 20, creatinine 0.7, and glucose of 74. ASSESSMENT AND PLAN: 1. COPD exacerbation. 2. Respiratory insufficiency. 3. Metabolic . I have asked Dr. Salmon, Dr. William Avalos, to see the patient to rule out bronchitis as well as COPD exacerbation as well as for management of CO2 elevation. Oskar Nichole M.D. DR: Taina JOB#: [id number] CC:
[2018-11-30] MEDS: Albuterol/Ipratropium 3ml neb HHN SCH ×6 (03:21→23:12)
[2018-11-30 04:00] VITALS: BP 128/73
[2018-11-30 05:42] LABS: HEMATOCRIT 33.5 % (42.0-52.0); HEMOGLOBIN 10.5 G/DL (14.2-18.0); MEAN CORPUSCULAR VOLUME 93 FL (80-99); PLATELET COUNT 163 K/UL (150-450); RED CELL DISTRIBUTION WIDTH 14.9 % (11.6-14.8); WHITE BLOOD COUNT 5.7 K/UL (4.8-10.8)
[2018-11-30] MEDS: NovoLOG Insulin Flexpen SUBQ SCH ×4 (06:10→20:35)
[2018-11-30] MEDS: Solu-MEDROL 125mg Inj IVP SCH ×3 (06:10→21:47)
[2018-11-30 06:29] LABS: ALANINE AMINOTRANSFERASE 41 U/L (12-78); ALBUMIN 3.5 G/DL (3.4-5.0); ALBUMIN/GLOBULIN RATIO 1.1 (1.0-2.7); ALKALINE PHOSPHATASE 81 U/L (46-116); ANION GAP 1 mmol/L (5-15); ASPARTATE AMINO TRANSFERASE 23 U/L (15-37); BILIRUBIN,TOTAL 0.3 MG/DL (0.2-1.0); BLOOD UREA NITROGEN 27 mg/dL (7-18); CALCIUM 8.8 MG/DL (8.5-10.1); CHLORIDE 100 MMOL/L (98-107); CHOLESTEROL 215 MG/DL (< 200); CREATININE 0.7 MG/DL (0.55-1.30); HDL CHOLESTEROL 84 MG/DL (40-60); POTASSIUM 3.8 MMOL/L (3.5-5.1); SODIUM 143 MMOL/L (136-145); TRIGLYCERIDES 42 MG/DL (30-150)
[2018-11-30 06:44] LABS: CARBON DIOXIDE 43 MMOL/L (21-32)
--- NOTE | 2018-11-30 07:24 | NUR ---
HAND-OFF: Report given to GENNY Haile.Patient stable.
--- NOTE | 2018-11-30 07:36 | NUR ---
NURSE NOTES: received report from mick ROYAL . Pt A/Ox4 slight forgetfulness. 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 Pt currently on bipap 17/ @ 30%. keep o2 sat 90-94%.Showing no signs of acute distress. Condom catheter in place , draining yellow urine. no BM at this time. skin intact, noted dryness of lower extremities. Pt has a Lt AC22G, saline locked, patent and asymptomatic. VSS. Will continue to monitor and implement patients plan of care.
[2018-11-30 08:00] VITALS: BP 140/72
[2018-11-30] MEDS: Heparin 5000 units/ml inj SUBQ SCH ×2 (08:52→20:34)
--- NOTE | 2018-11-30 10:00 | NUR ---
NURSE NOTES: lab here to draw ammonia level. pt placed on NC to eat breakfast. will continue to monitor pt.
--- NOTE | 2018-11-30 10:30 | NUR ---
NURSE NOTES: pt back on bipap, fio2 increased to 45%.
--- NOTE | 2018-11-30 11:04 | NUR ---
NURSE NOTES: RECEIVED PATIENT FROM Shari GARCIA RN. PATIENT IS LYING IN BED, ASLEEP BUT AROUSABLE. 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 ON BIPAP 17/, FiO2 45%. NO SIGNS OF DISTRESS OF THE MOMENT. NO CONDOM CATH. IV ON R AC G22, SL. CALL LIGHT WITHIN REACH. SIDE RAILS UP. BED AT LOWEST POSITION. WILL CONTINUE OT MONITOR.
--- NOTE | 2018-11-30 11:11 | NUR ---
HAND-OFF: Report given to Susy gaxiola.RN/CN. endorsed sputum collection
--- NOTE | 2018-11-30 11:25 | Infectious Diseases Prog Note ---
Assessment/Plan Assessment/Plan IMPRESSION: 1. COPD exacerbation. 2. Hypercapnic, hypoxic respiratory failure. 3. Diabetes mellitus. 4. Hypertension. 5. Hypokalemia. 6. Muscular wasting. 7. Bacteruria RECOMMENDATION: Continue with doxycycline and add ceftriaxone continue with prednisone and bronchodilators. Subjective ROS Limited/Unobtainable: No Constitutional: Reports: other - feels better HEENT: Reports: no symptoms Respiratory: Reports: shortness of breath Gastrointestinal/Abdominal: Reports: no symptoms Genitourinary: Reports: no symptoms Allergies: Coded Allergies: No Known Allergies (Unverified , 06/05/18) Objective Vital Signs Last 24 Hour Vital Signs Date Time Temp Pulse Resp B/P (MAP) Pulse Ox O2 Delivery O2 Flow Rate FiO2 11/30/18 10:18 71 23 95 Facial 45 11/30/18 09:21 59 17 99 Nasal Cannula 3.0 32 11/30/18 09:11 68 16 92 Nasal Cannula 2.0 28 11/30/18 08:00 66 11/30/18 08:00 30 11/30/18 08:00 98.3 68 19 140/72 (94) 90 11/30/18 08:00 Bi-pap 11/30/18 05:27 64 18 100 Facial 30 11/30/18 04:00 30 11/30/18 04:00 98.2 70 23 128/73 (91) 99 11/30/18 04:00 Bi-pap 11/30/18 03:34 58 17 100 Bi-pap 30 11/30/18 03:32 52 11/30/18 03:22 64 16 98 Bi-pap 30 11/30/18 03:22 61 16 99 Facial 30 11/30/18 01:03 77 20 97 Facial 30 11/30/18 00:00 Bi-pap 11/30/18 00:00 30 11/30/18 00:00 97.9 65 19 119/60 (79) 99 11/29/18 23:39 59 11/29/18 23:00 62 18 98 Bi-pap 30 11/29/18 22:50 61 18 95 Bi-pap 30 11/29/18 22:49 61 18 95 Facial 30 11/29/18 21:21 73 20 98 Facial 30 11/29/18 20:00 Bi-pap 11/29/18 20:00 97.9 62 20 103/62 (76) 95 11/29/18 20:00 30 11/29/18 19:41 69 11/29/18 19:17 68 18 100 Bi-pap 30 11/29/18 19:10 78 26 100 Facial 30 11/29/18 19:09 66 17 100 Bi-pap 30 11/29/18 17:04 82 19 98 Facial 30 11/29/18 16:00 30 11/29/18 16:00 71 11/29/18 16:00 Bi-pap 11/29/18 15:05 79 19 98 Full Face 30 11/29/18 13:05 81 17 97 Full Face 30 11/29/18 12:00 30 11/29/18 12:00 93 11/29/18 12:00 Bi-pap 11/29/18 11:28 83 16 95 Full Face 30 Height (Feet): 6 Height (Inches): 0.00 Weight (Pounds): 165 General Appearance: cachetic HEENT: mucous membranes moist Respiratory/Chest: decreased breath sounds, other - on BIPAP Cardiovascular: normal rate Abdomen: soft, non tender Extremities: no edema Neurologic/Psychiatric: abnormal gait, responsive Musculoskeletal: atrophy Microbiology Date/Time Source Procedure Growth Status 11/29/18 14:00 Nose - Final Complete 11/29/18 14:00 Nose - Final Complete 11/29/18 15:50 Urine,Clean Catch Urine Culture - Preliminary Gram Negative Bacillus 1 Resulted Laboratory Tests Test 11/29/18 13:30 11/29/18 15:50 11/29/18 16:34 11/29/18 20:00 RSV Nasal Swab Pending Urine Color Yellow Urine Appearance Clear Urine pH 7 (4.5-8.0) Urine Specific [place] 1.010 (1.005-1.035) Urine Protein 1+ (NEGATIVE) H Urine Glucose (UA) Negative (NEGATIVE) Urine Ketones 3+ (NEGATIVE) H Urine Blood Negative (NEGATIVE) Urine Nitrite Negative (NEGATIVE) Urine Bilirubin Negative (NEGATIVE) Urine Urobilinogen 1 MG/DL (0.0-1.0) H Urine Leukocyte Esterase Negative (NEGATIVE) Urine RBC 0-2 /HPF (0 - 0) H Urine WBC 0-2 /HPF (0 - 0) Urine Squamous Epithelial Cells Few /LPF (NONE/OCC) Urine Bacteria Moderate /HPF (NONE) H Arterial Blood pH 7.250 (7.350-7.450) Arterial Blood Partial Pressure CO2 121.6 mmHg (35.0-45.0) *H Arterial Blood Partial Pressure O2 158.7 mmHg (75.0-100.0) H Arterial Blood HCO3 52.5 mmol/L (22.0-26.0) *H Arterial Blood Oxygen Saturation 98.4 % (95-100) Arterial Blood Base Excess 20.1 (-2-2) *H Delon Test Positive Sodium Level 145 MMOL/L (136-145) Potassium Level 4.7 MMOL/L (3.5-5.1) Chloride Level 98 MMOL/L (98-107) Carbon Dioxide Level > 45 MMOL/L (21-32) *H Blood Urea Nitrogen 29 mg/dL (7-18) H Creatinine 1.0 MG/DL (0.55-1.30) Estimat Glomerular Filtration Rate mL/min (>60) Glucose Level 160 MG/DL (74-106) H Calcium Level 8.6 MG/DL (8.5-10.1) Test 11/30/18 03:45 11/30/18 09:03 11/30/18 10:00 White Blood Count 5.7 K/UL (4.8-10.8) Red Blood Count 3.60 M/UL (4.70-6.10) L Hemoglobin 10.5 G/DL (14.2-18.0) L Hematocrit 33.5 % (42.0-52.0) L Mean Corpuscular Volume 93 FL (80-99) Mean Corpuscular Hemoglobin 29.3 PG (27.0-31.0) Mean Corpuscular Hemoglobin Concent 31.4 G/DL (32.0-36.0) L Red Cell Distribution Width 14.9 % (11.6-14.8) H Platelet Count 163 K/UL (150-450) Mean Platelet Volume 6.4 FL (6.5-10.1) L Neutrophils (%) (Auto) % (45.0-75.0) Lymphocytes (%) (Auto) % (20.0-45.0) Monocytes (%) (Auto) % (1.0-10.0) Eosinophils (%) (Auto) % (0.0-3.0) Basophils (%) (Auto) % (0.0-2.0) Sodium Level 143 MMOL/L (136-145) Potassium Level 3.8 MMOL/L (3.5-5.1) Chloride Level 100 MMOL/L (98-107) Carbon Dioxide Level 43 MMOL/L (21-32) *H Anion Gap 1 mmol/L (5-15) L Blood Urea Nitrogen 27 mg/dL (7-18) H Creatinine 0.7 MG/DL (0.55-1.30) Estimat Glomerular Filtration Rate mL/min (>60) Glucose Level 125 MG/DL (74-106) H Hemoglobin A1c 5.4 % (4.3-6.0) Uric Acid 3.4 MG/DL (2.6-7.2) Calcium Level 8.8 MG/DL (8.5-10.1) Phosphorus Level 3.0 MG/DL (2.5-4.9) Magnesium Level 1.9 MG/DL (1.8-2.4) Total Bilirubin 0.3 MG/DL (0.2-1.0) Aspartate Amino Transf (AST/SGOT) 23 U/L (15-37) Alanine Aminotransferase (ALT/SGPT) 41 U/L (12-78) Alkaline Phosphatase 81 U/L (46-116) Troponin I 0.018 ng/mL (0.000-0.056) C-Reactive Protein, Quantitative < 0.4 mg/dL (0.00-0.90) Pro-B-Type Natriuretic Peptide 119 pg/mL (0-125) Total Protein 6.7 G/DL (6.4-8.2) Albumin 3.5 G/DL (3.4-5.0) Globulin 3.2 g/dL Albumin/Globulin Ratio 1.1 (1.0-2.7) Triglycerides Level 42 MG/DL (30-150) Cholesterol Level 215 MG/DL (< 200) H LDL Cholesterol 120 mg/dL (<100) H HDL Cholesterol 84 MG/DL (40-60) H Cholesterol/HDL Ratio 2.6 (3.3-4.4) L Vitamin B12 Level 563 PG/ML (193-986) Folate 10.8 NG/ML (8.6-58.9) Thyroid Stimulating Hormone (TSH) 0.391 uiU/mL (0.358-3.740) Ammonia 27 umol/L (11-32) Arterial Blood pH 7.460 (7.350-7.450) Arterial Blood Partial Pressure CO2 64.9 mmHg (35.0-45.0) *H Arterial Blood Partial Pressure O2 58.1 mmHg (75.0-100.0) L Arterial Blood HCO3 45.1 mmol/L (22.0-26.0) *H Arterial Blood Oxygen Saturation 89.8 % (95-100) *L Arterial Blood Base Excess 18.1 (-2-2) *H Delon Test Positive Current Medications Medications (Trade) Dose Ordered Sig/Brittani Route PRN Reason Start Time Stop Time Status Last Admin Dose Admin Acetaminophen (Tylenol) 650 mg Q6H PRN ORAL Mild Pain/Temp > 100.5 11/29/18 09:15 12/29/18 08:59 Albuterol/ Ipratropium (Albuterol/ Ipratropium) 3 ml Q4HRT HHN 11/29/18 11:00 12/04/18 10:59 11/30/18 09:11 Ceftriaxone Sodium 1 gm/ Dextrose 55 ml @ 110 mls/hr Q24H IVPB 11/29/18 11:00 12/06/18 10:59 11/29/18 12:02 Dextrose (Dextrose 50%) 25 ml Q30M PRN IV Hypoglycemia 11/29/18 09:30 12/29/18 09:29 Dextrose (Dextrose 50%) 50 ml Q30M PRN IV Hypoglycemia 11/29/18 09:30 12/29/18 09:29 Doxycycline Monohydrate (Doxycycline Monohydrate) 100 mg Q12HR ORAL 11/29/18 21:00 12/06/18 20:59 11/30/18 08:45 Guaifenesin (Robitussin) 200 mg Q6H PRN ORAL For Cough 11/29/18 09:30 12/29/18 09:29 Heparin Sodium (Porcine) (Heparin 5000 units/ml) 5,000 units EVERY 12 HOURS SUBQ 11/29/18 21:00 12/29/18 20:59 11/30/18 08:52 Insulin Aspart (NovoLOG) BEFORE MEALS AND HS SUBQ 11/29/18 11:30 12/29/18 11:29 11/29/18 21:15 Methylprednisolone Sodium Succinate (Solu-MEDROL) 60 mg EVERY 8 HOURS IVP 6/13/19 14:00 12/29/18 13:59 11/30/18 06:10 Ondansetron HCl (Zofran) 4 mg Q8H PRN IVP Nausea & Vomiting 11/29/18 09:15 12/29/18 09:14 Pantoprazole (Protonix) 40 mg DAILY ORAL 11/29/18 15:15 12/29/18 15:14 11/30/18 08:45 William Avalos MD Nov 30, 2018 11:25
[2018-11-30] MEDS: cefTRIAXone 1 GM in D5W 55 ML IVPB SCH (11:33)
[2018-11-30 12:00] VITALS: BP 126/70
--- NOTE | 2018-11-30 13:27 | Pulmonology Progress Note ---
Assessment/Plan Assessment/Plan Pulmonary Progress Note HPI Patient is a 72-year-old male with COPD, admitted with increased difficulty with breathing. He has had previous hospitalizations at this facility for COPD exaccerbations. Noted to have Hypoxic and Hypecapneic respiratory failure. He had prior history of severe emphysema. Patient had been not noted to have any fever. History is markedly limited by patient's mental status. Allergies: No Known Allergies Past Medical History: Severe COPD on home oxygen and BiPAP, Cardiac Disease, Hypertension, Diabetes All Other Systems: limited - By mental status. Physical Exam Vital Signs Noted General Appearance: cachetic, thin, Chronically Ill Eyes: bilateral eye PERRL ENT: dry mucus membranes Neck: limited range of motion Respiratory: decreased breath sounds, wheezing Cardiovascular: regular rate, rhythm, normal HS Gastrointestinal: normal inspection Neurologic: other - somnolent, confused Psychiatric: normal inspection Skin: normal inspection, normal color Impression: COPD with exacerbation Hypoxic and Hypercapneic respiratory failure Hyperkalemia Severe COPD on home oxygen and BiPAP Cardiac Disease Hypertension Diabetes Plan: IV Steroids HHN BiPAP - 02/11 Repeat ABG Antibiotics TAPE [employer] Meds PPX Goals and Values discussed with patient and son at bedside - patient DNAR/DNI status, POLST completed Labs Noted Test 11/29/18 02:35 11/29/18 03:19 11/29/18 03:21 White Blood Count 7.2 K/UL (4.8-10.8) Red Blood Count 4.33 M/UL (4.70-6.10) Hemoglobin 12.6 G/DL (14.2-18.0) Hematocrit 42.1 % (42.0-52.0) Mean Corpuscular Volume 97 FL (80-99) Mean Corpuscular Hemoglobin 29.0 PG (27.0-31.0) Mean Corpuscular Hemoglobin Concent 29.9 G/DL (32.0-36.0) Red Cell Distribution Width 15.3 % (11.6-14.8) Platelet Count 164 K/UL (150-450) Mean Platelet Volume 6.6 FL (6.5-10.1) Neutrophils (%) (Auto) 67.2 % (45.0-75.0) Lymphocytes (%) (Auto) 20.6 % (20.0-45.0) Monocytes (%) (Auto) 8.9 % (1.0-10.0) Eosinophils (%) (Auto) 2.4 % (0.0-3.0) Basophils (%) (Auto) 1.0 % (0.0-2.0) Arterial Blood pH 7.402 (7.350-7.450) Arterial Blood Partial Pressure CO2 76.4 mmHg (35.0-45.0) Arterial Blood Partial Pressure O2 55.9 mmHg (75.0-100.0) Arterial Blood HCO3 46.5 mmol/L (22.0-26.0) Arterial Blood Oxygen Saturation 90.3 % (95-100) Arterial Blood Base Excess 17.8 (-2-2) Delon Test Positive Sodium Level 142 MMOL/L (136-145) Potassium Level 5.8 MMOL/L (3.5-5.1) Chloride Level 100 MMOL/L (98-107) Carbon Dioxide Level 43 MMOL/L (21-32) Anion Gap -1 mmol/L (5-15) Blood Urea Nitrogen 20 mg/dL (7-18) Creatinine 0.7 MG/DL (0.55-1.30) Estimat Glomerular Filtration Rate mL/min (>60) Glucose Level 74 MG/DL (74-106) Calcium Level 9.1 MG/DL (8.5-10.1) Total Bilirubin 0.5 MG/DL (0.2-1.0) Aspartate Amino Transf (AST/SGOT) 46 U/L (15-37) Alanine Aminotransferase (ALT/SGPT) 46 U/L (12-78) Alkaline Phosphatase 91 U/L (46-116) Total Protein 7.3 G/DL (6.4-8.2) Albumin 3.7 G/DL (3.4-5.0) Globulin 3.6 g/dL Albumin/Globulin Ratio 1.0 (1.0-2.7) CXR noted, no focal infiltrates Subjective ROS Limited/Unobtainable: No Allergies: Coded Allergies: No Known Allergies (Unverified , 06/05/18) Objective Last 24 Hour Vital Signs Date Time Temp Pulse Resp B/P (MAP) Pulse Ox O2 Delivery O2 Flow Rate FiO2 11/30/18 12:35 74 20 96 Facial 45 11/30/18 12:00 74 11/30/18 12:00 Bi-pap 11/30/18 12:00 45 11/30/18 12:00 97.6 67 22 126/70 (88) 99 11/30/18 10:18 71 23 95 Facial 45 11/30/18 09:21 59 17 99 Nasal Cannula 3.0 32 11/30/18 09:11 68 16 92 Nasal Cannula 2.0 28 11/30/18 08:00 66 11/30/18 08:00 30 11/30/18 08:00 98.3 68 19 140/72 (94) 90 11/30/18 08:00 Bi-pap 11/30/18 05:27 64 18 100 Facial 30 11/30/18 04:00 30 11/30/18 04:00 98.2 70 23 128/73 (91) 99 11/30/18 04:00 Bi-pap 11/30/18 03:34 58 17 100 Bi-pap 30 11/30/18 03:32 52 11/30/18 03:22 64 16 98 Bi-pap 30 11/30/18 03:22 61 16 99 Facial 30 11/30/18 01:03 77 20 97 Facial 30 11/30/18 00:00 Bi-pap 11/30/18 00:00 30 11/30/18 00:00 97.9 65 19 119/60 (79) 99 11/29/18 23:39 59 11/29/18 23:00 62 18 98 Bi-pap 30 11/29/18 22:50 61 18 95 Bi-pap 30 11/29/18 22:49 61 18 95 Facial 30 11/29/18 21:21 73 20 98 Facial 30 11/29/18 20:00 Bi-pap 11/29/18 20:00 97.9 62 20 103/62 (76) 95 11/29/18 20:00 30 11/29/18 19:41 69 11/29/18 19:17 68 18 100 Bi-pap 30 11/29/18 19:10 78 26 100 Facial 30 11/29/18 19:09 66 17 100 Bi-pap 30 11/29/18 17:04 82 19 98 Facial 30 11/29/18 16:00 30 11/29/18 16:00 71 11/29/18 16:00 Bi-pap 11/29/18 15:05 79 19 98 Full Face 30 Intake and Output 11/29/18 11/30/18 19:00 07:00 Intake Total 300 ml Output Total 350 ml Balance 300 ml -350 ml Intake Oral 300 ml Output Urine Total 350 ml # Voids 1 # Bowel Movements 3 Microbiology Date/Time Source Procedure Growth Status 11/29/18 14:00 Nose - Final Complete 11/29/18 14:00 Nose - Final Complete 11/29/18 15:50 Urine,Clean Catch Urine Culture - Preliminary Gram Negative Bacillus 1 Resulted Laboratory Tests 11/29/18 13:30: RSV Nasal Swab [Pending] 11/29/18 15:50: Urine Color Yellow, Urine Appearance Clear, Urine pH 7, Urine Specific [place] 1.010, Urine Protein 1+H, Urine Glucose (UA) Negative, Urine Ketones 3+H, Urine Blood Negative, Urine Nitrite Negative, Urine Bilirubin Negative, Urine Urobilinogen 1H, Urine Leukocyte Esterase Negative, Urine RBC 0-2H, Urine WBC 0- 2, Urine Squamous Epithelial Cells Few, Urine Bacteria ModerateH 11/29/18 16:34: Arterial Blood pH 7.250*L, Arterial Blood Partial Pressure CO2 121.6*H, Arterial Blood Partial Pressure O2 158.7H, Arterial Blood HCO3 52.5*H, Arterial Blood Oxygen Saturation 98.4, Arterial Blood Base Excess 20.1*H, Delon Test Positive 11/29/18 20:00: Sodium Level 145, Potassium Level 4.7, Chloride Level 98, Carbon Dioxide Level > 45*H, Blood Urea Nitrogen 29H, Creatinine 1.0, Estimat Glomerular Filtration Rate , Glucose Level 160H, Calcium Level 8.6 11/30/18 03:45: White Blood Count 5.7, Red Blood Count 3.60L, Hemoglobin 10.5L, Hematocrit 33.5L , Mean Corpuscular Volume 93, Mean Corpuscular Hemoglobin 29.3, Mean Corpuscular Hemoglobin Concent 31.4L, Red Cell Distribution Width 14.9H, Platelet Count 163, Mean Platelet Volume 6.4L, Neutrophils (%) (Auto) , Lymphocytes (%) (Auto) , Monocytes (%) (Auto) , Eosinophils (%) (Auto) , Basophils (%) (Auto) , Sodium Level 143, Potassium Level 3.8, Chloride Level 100 , Carbon Dioxide Level 43*H, Anion Gap 1L, Blood Urea Nitrogen 27H, Creatinine 0.7, Estimat Glomerular Filtration Rate , Glucose Level 125H, Hemoglobin A1c 5.4 , Uric Acid 3.4, Calcium Level 8.8, Phosphorus Level 3.0, Magnesium Level 1.9, Total Bilirubin 0.3, Aspartate Amino Transf (AST/SGOT) 23, Alanine Aminotransferase (ALT/SGPT) 41, Alkaline Phosphatase 81, Troponin I 0.018, C- Reactive Protein, Quantitative < 0.4, Pro-B-Type Natriuretic Peptide 119, Total Protein 6.7, Albumin 3.5, Globulin 3.2, Albumin/Globulin Ratio 1.1, Triglycerides Level 42, Cholesterol Level 215H, LDL Cholesterol 120H, HDL Cholesterol 84H, Cholesterol/HDL Ratio 2.6L, Vitamin B12 Level 563, Folate 10.8 , Thyroid Stimulating Hormone (TSH) 0.391 11/30/18 09:03: Ammonia 27 11/30/18 10:00: Arterial Blood pH 7.460H, Arterial Blood Partial Pressure CO2 64.9*H, Arterial Blood Partial Pressure O2 58.1L, Arterial Blood HCO3 45.1*H, Arterial Blood Oxygen Saturation 89.8*L, Arterial Blood Base Excess 18.1*H, Delon Test Positive Current Medications Medications (Trade) Dose Ordered Sig/Brittani Route PRN Reason Start Time Stop Time Status Last Admin Dose Admin Acetaminophen (Tylenol) 650 mg Q6H PRN ORAL Mild Pain/Temp > 100.5 11/29/18 09:15 12/29/18 08:59 Albuterol/ Ipratropium (Albuterol/ Ipratropium) 3 ml Q4HRT HHN 11/29/18 11:00 12/04/18 10:59 11/30/18 09:11 Ceftriaxone Sodium 1 gm/ Dextrose 55 ml @ 110 mls/hr Q24H IVPB 11/29/18 11:00 12/06/18 10:59 11/30/18 11:33 Dextrose (Dextrose 50%) 25 ml Q30M PRN IV Hypoglycemia 11/29/18 09:30 12/29/18 09:29 Dextrose (Dextrose 50%) 50 ml Q30M PRN IV Hypoglycemia 11/29/18 09:30 12/29/18 09:29 Doxycycline Monohydrate (Doxycycline Monohydrate) 100 mg Q12HR ORAL 11/29/18 21:00 12/06/18 20:59 11/30/18 08:45 Guaifenesin (Robitussin) 200 mg Q6H PRN ORAL For Cough 11/29/18 09:30 12/29/18 09:29 Heparin Sodium (Porcine) (Heparin 5000 units/ml) 5,000 units EVERY 12 HOURS SUBQ 11/29/18 21:00 12/29/18 20:59 11/30/18 08:52 Insulin Aspart (NovoLOG) BEFORE MEALS AND HS SUBQ 11/29/18 11:30 12/29/18 11:29 11/30/18 11:34 Methylprednisolone Sodium Succinate (Solu-MEDROL) 60 mg EVERY 8 HOURS IVP 11/29/18 14:00 12/29/18 13:59 11/30/18 06:10 Ondansetron HCl (Zofran) 4 mg Q8H PRN IVP Nausea & Vomiting 11/29/18 09:15 12/29/18 09:14 Pantoprazole (Protonix) 40 mg DAILY ORAL 11/29/18 15:15 12/29/18 15:14 11/30/18 08:45 Johny White MD Nov 30, 2018 13:27
--- NOTE | 2018-11-30 15:18 | Nephrology Progress Note ---
Assessment/Plan Problem List: (1) Hyperkalemia (2) COPD with exacerbation (3) Hypoxia Assessment COPD with exacerbation CO2 retention Hyperkalemia Plan Kayexelate given 11/29 BIPAP optimize pulm state monitor lytes 2D echo EjFx 55% steroids, taper as possible Subjective ROS Limited/Unobtainable: No Constitutional: Reports: malaise, weakness Objective Objective Last 24 Hour Vital Signs Date Time Temp Pulse Resp B/P (MAP) Pulse Ox O2 Delivery O2 Flow Rate FiO2 11/30/18 12:35 74 20 96 Facial 45 11/30/18 12:00 74 11/30/18 12:00 Bi-pap 11/30/18 12:00 45 11/30/18 12:00 97.6 67 22 126/70 (88) 99 11/30/18 10:18 71 23 95 Facial 45 11/30/18 09:21 59 17 99 Nasal Cannula 3.0 32 11/30/18 09:11 68 16 92 Nasal Cannula 2.0 28 11/30/18 08:00 66 11/30/18 08:00 30 11/30/18 08:00 98.3 68 19 140/72 (94) 90 11/30/18 08:00 Bi-pap 11/30/18 05:27 64 18 100 Facial 30 11/30/18 04:00 30 11/30/18 04:00 98.2 70 23 128/73 (91) 99 11/30/18 04:00 Bi-pap 11/30/18 03:34 58 17 100 Bi-pap 30 11/30/18 03:32 52 11/30/18 03:22 64 16 98 Bi-pap 30 11/30/18 03:22 61 16 99 Facial 30 11/30/18 01:03 77 20 97 Facial 30 11/30/18 00:00 Bi-pap 11/30/18 00:00 30 11/30/18 00:00 97.9 65 19 119/60 (79) 99 11/29/18 23:39 59 11/29/18 23:00 62 18 98 Bi-pap 30 11/29/18 22:50 61 18 95 Bi-pap 30 11/29/18 22:49 61 18 95 Facial 30 11/29/18 21:21 73 20 98 Facial 30 11/29/18 20:00 Bi-pap 11/29/18 20:00 97.9 62 20 103/62 (76) 95 11/29/18 20:00 30 11/29/18 19:41 69 11/29/18 19:17 68 18 100 Bi-pap 30 11/29/18 19:10 78 26 100 Facial 30 11/29/18 19:09 66 17 100 Bi-pap 30 11/29/18 17:04 82 19 98 Facial 30 11/29/18 16:00 30 11/29/18 16:00 71 11/29/18 16:00 Bi-pap Intake and Output 11/29/18 11/30/18 19:00 07:00 Intake Total 300 ml Output Total 350 ml Balance 300 ml -350 ml Intake Oral 300 ml Output Urine Total 350 ml # Voids 1 # Bowel Movements 3 Laboratory Tests 11/29/18 15:50: Urine Color Yellow, Urine Appearance Clear, Urine pH 7, Urine Specific [place] 1.010, Urine Protein 1+H, Urine Glucose (UA) Negative, Urine Ketones 3+H, Urine Blood Negative, Urine Nitrite Negative, Urine Bilirubin Negative, Urine Urobilinogen 1H, Urine Leukocyte Esterase Negative, Urine RBC 0-2H, Urine WBC 0- 2, Urine Squamous Epithelial Cells Few, Urine Bacteria ModerateH 11/29/18 16:34: Arterial Blood pH 7.250*L, Arterial Blood Partial Pressure CO2 121.6*H, Arterial Blood Partial Pressure O2 158.7H, Arterial Blood HCO3 52.5*H, Arterial Blood Oxygen Saturation 98.4, Arterial Blood Base Excess 20.1*H, Delon Test Positive 11/29/18 20:00: Sodium Level 145, Potassium Level 4.7, Chloride Level 98, Carbon Dioxide Level > 45*H, Blood Urea Nitrogen 29H, Creatinine 1.0, Estimat Glomerular Filtration Rate , Glucose Level 160H, Calcium Level 8.6 11/30/18 03:45: Sodium Level 143, Potassium Level 3.8, Chloride Level 100, Carbon Dioxide Level 43*H, Blood Urea Nitrogen 27H, Creatinine 0.7, Estimat Glomerular Filtration Rate , Glucose Level 125H, Calcium Level 8.8, White Blood Count 5.7, Red Blood Count 3.60L, Hemoglobin 10.5L, Hematocrit 33.5L, Mean Corpuscular Volume 93, Mean Corpuscular Hemoglobin 29.3, Mean Corpuscular Hemoglobin Concent 31.4L, Red Cell Distribution Width 14.9H, Platelet Count 163, Mean Platelet Volume 6.4L , Neutrophils (%) (Auto) , Lymphocytes (%) (Auto) , Monocytes (%) (Auto) , Eosinophils (%) (Auto) , Basophils (%) (Auto) , Anion Gap 1L, Hemoglobin A1c 5.4 , Uric Acid 3.4, Phosphorus Level 3.0, Magnesium Level 1.9, Total Bilirubin 0.3 , Aspartate Amino Transf (AST/SGOT) 23, Alanine Aminotransferase (ALT/SGPT) 41, Alkaline Phosphatase 81, Troponin I 0.018, C-Reactive Protein, Quantitative < 0.4, Pro-B-Type Natriuretic Peptide 119, Total Protein 6.7, Albumin 3.5, Globulin 3.2, Albumin/Globulin Ratio 1.1, Triglycerides Level 42, Cholesterol Level 215H, LDL Cholesterol 120H, HDL Cholesterol 84H, Cholesterol/HDL Ratio 2.6L, Vitamin B12 Level 563, Folate 10.8, Thyroid Stimulating Hormone (TSH) 0.391 11/30/18 09:03: Ammonia 27 11/30/18 10:00: Arterial Blood pH 7.460H, Arterial Blood Partial Pressure CO2 64.9*H, Arterial Blood Partial Pressure O2 58.1L, Arterial Blood HCO3 45.1*H, Arterial Blood Oxygen Saturation 89.8*L, Arterial Blood Base Excess 18.1*H, Delon Test Positive Height (Feet): 6 Height (Inches): 0.00 Weight (Pounds): 165 General Appearance: mild distress EENT: other - BIPAP Cardiovascular: normal rate Respiratory/Chest: decreased breath sounds Abdomen: distended Felipe Salmon MD Nov 30, 2018 15:18
[2018-11-30 16:00] VITALS: BP 149/75
--- NOTE | 2018-11-30 17:00 | NUR ---
HAND-OFF: Report given to Alfredo Bolivar RN.
--- NOTE | 2018-11-30 17:03 | NUR ---
NURSE NOTES: Report received from GENNY Meyers. Observed patient in bed. Awake and verbally responsive. Denies pain at this time. On BIPAP with previous setting and no distress noted at this time. IV site intact and patent. Bed in lowest position. Call light within reach. Will continue to monitor.
[2018-11-30] MEDS ORDERED: ALBUTEROL2.5 MG/3 M INH (18:45)
[2018-11-30] MEDS ORDERED: NYSTATIN100000 UN1 ORAL (18:45)
[2018-11-30] MEDS ORDERED: SYMBICORT 16010.2 G1 IH (18:46)
--- NOTE | 2018-11-30 19:21 | NUR ---
HAND-OFF: Report given to GENNY Mohan. Stable condition.
--- NOTE | 2018-11-30 19:30 | NUR ---
NURSE NOTES: Received Pt is resting on the bed and awake and alert. On BiPAP setting with 17/5 FiO2 45% ans SaO2 98% noted. No sign of respiratory distress noted. IV site intact and no sign of infiltration noted. On Tele monitor with SR. Placed fall precaution. Will continue to care plan.
[2018-11-30 20:00] VITALS: BP 148/78
--- NOTE | 2018-11-30 21:50 | General Progress Note ---
Assessment/Plan Problem List: (1) Pulmonary hypertension ICD Codes: I27.20 - Pulmonary hypertension, unspecified SNOMED: 40751790 (2) CO2 retention ICD Codes: E87.2 - Acidosis SNOMED: 83111821 (3) COPD with exacerbation ICD Codes: J44.1 - Chronic obstructive pulmonary disease with (acute) exacerbation SNOMED: 377695345 Status: progressing Assessment/Plan: afebrile nac resp insuff wheezing copd bipap hypercapnia Subjective ROS Limited/Unobtainable: Yes Respiratory: Reports: shortness of breath Allergies: Coded Allergies: No Known Allergies (Unverified , 06/05/18) Objective Last 24 Hour Vital Signs Date Time Temp Pulse Resp B/P (MAP) Pulse Ox O2 Delivery O2 Flow Rate FiO2 11/30/18 20:00 56 11/30/18 20:00 45 11/30/18 20:00 Bi-pap 11/30/18 20:00 98.6 65 23 148/78 (101) 100 11/30/18 18:49 69 16 98 Bi-Pap 45 11/30/18 18:40 66 20 96 Facial 45 11/30/18 18:37 66 20 96 Bi-Pap 45 11/30/18 16:00 67 11/30/18 16:00 Bi-pap 11/30/18 16:00 98.3 69 23 149/75 (99) 100 11/30/18 16:00 45 11/30/18 15:01 62 16 99 Bi-Pap 45 11/30/18 14:51 69 20 97 Facial 45 11/30/18 14:51 69 16 95 Bi-Pap 45 11/30/18 12:35 74 20 96 Facial 45 11/30/18 12:00 74 11/30/18 12:00 Bi-pap 11/30/18 12:00 45 11/30/18 12:00 97.6 67 22 126/70 (88) 99 11/30/18 10:18 71 23 95 Facial 45 11/30/18 09:21 59 17 99 Nasal Cannula 3.0 32 11/30/18 09:11 68 16 92 Nasal Cannula 2.0 28 11/30/18 08:00 66 11/30/18 08:00 30 11/30/18 08:00 98.3 68 19 140/72 (94) 90 6/14/19 08:00 Bi-pap 11/30/18 05:27 64 18 100 Facial 30 11/30/18 04:00 30 11/30/18 04:00 98.2 70 23 128/73 (91) 99 11/30/18 04:00 Bi-pap 11/30/18 03:34 58 17 100 Bi-pap 30 11/30/18 03:32 52 11/30/18 03:22 64 16 98 Bi-pap 30 11/30/18 03:22 61 16 99 Facial 30 11/30/18 01:03 77 20 97 Facial 30 11/30/18 00:00 Bi-pap 11/30/18 00:00 30 11/30/18 00:00 97.9 65 19 119/60 (79) 99 11/29/18 23:39 59 11/29/18 23:00 62 18 98 Bi-pap 30 11/29/18 22:50 61 18 95 Bi-pap 30 11/29/18 22:49 61 18 95 Facial 30 Intake and Output 11/29/18 11/30/18 18:59 06:59 Intake Total 300 ml Output Total 350 ml Balance 300 ml -350 ml Intake Oral 300 ml Output Urine Total 350 ml # Voids 1 # Bowel Movements 3 Laboratory Tests 11/30/18 03:45: White Blood Count 5.7, Red Blood Count 3.60L, Hemoglobin 10.5L, Hematocrit 33.5L , Mean Corpuscular Volume 93, Mean Corpuscular Hemoglobin 29.3, Mean Corpuscular Hemoglobin Concent 31.4L, Red Cell Distribution Width 14.9H, Platelet Count 163, Mean Platelet Volume 6.4L, Neutrophils (%) (Auto) , Lymphocytes (%) (Auto) , Monocytes (%) (Auto) , Eosinophils (%) (Auto) , Basophils (%) (Auto) , Sodium Level 143, Potassium Level 3.8, Chloride Level 100 , Carbon Dioxide Level 43*H, Anion Gap 1L, Blood Urea Nitrogen 27H, Creatinine 0.7, Estimat Glomerular Filtration Rate , Glucose Level 125H, Hemoglobin A1c 5.4 , Uric Acid 3.4, Calcium Level 8.8, Phosphorus Level 3.0, Magnesium Level 1.9, Total Bilirubin 0.3, Aspartate Amino Transf (AST/SGOT) 23, Alanine Aminotransferase (ALT/SGPT) 41, Alkaline Phosphatase 81, Troponin I 0.018, C- Reactive Protein, Quantitative < 0.4, Pro-B-Type Natriuretic Peptide 119, Total Protein 6.7, Albumin 3.5, Globulin 3.2, Albumin/Globulin Ratio 1.1, Triglycerides Level 42, Cholesterol Level 215H, LDL Cholesterol 120H, HDL Cholesterol 84H, Cholesterol/HDL Ratio 2.6L, Vitamin B12 Level 563, Folate 10.8 , Thyroid Stimulating Hormone (TSH) 0.391 11/30/18 09:03: Ammonia 27 11/30/18 10:00: Arterial Blood pH 7.460H, Arterial Blood Partial Pressure CO2 64.9*H, Arterial Blood Partial Pressure O2 58.1L, Arterial Blood HCO3 45.1*H, Arterial Blood Oxygen Saturation 89.8*L, Arterial Blood Base Excess 18.1*H, Delon Test Positive Height (Feet): 6 Height (Inches): 0.00 Weight (Pounds): 165 Respiratory/Chest: expiratory wheezing Oskar Nichole MD Nov 30, 2018 21:50
[2018-12-01] VITALS: BP 144/81
[2018-12-01] MEDS: Albuterol/Ipratropium 3ml neb HHN SCH ×6 (03:16→23:02)
[2018-12-01 04:00] VITALS: BP 133/62
[2018-12-01] MEDS: Solu-MEDROL 125mg Inj IVP SCH ×3 (06:08→21:11)
[2018-12-01 06:10] LABS: HEMATOCRIT 36.7 % (42.0-52.0); HEMOGLOBIN 11.6 G/DL (14.2-18.0); MEAN CORPUSCULAR VOLUME 94 FL (80-99); PLATELET COUNT 173 K/UL (150-450); RED BLOOD COUNT 3.91 M/UL (4.70-6.10); RED CELL DISTRIBUTION WIDTH 14.5 % (11.6-14.8)
[2018-12-01] MEDS: NovoLOG Insulin Flexpen SUBQ SCH ×4 (06:10→21:11)
[2018-12-01 06:54] LABS: % IRON SATURATION 51 % (15-50); ALANINE AMINOTRANSFERASE 45 U/L (12-78); ALBUMIN 3.5 G/DL (3.4-5.0); ALKALINE PHOSPHATASE 77 U/L (46-116); ANION GAP 2 mmol/L (5-15); ASPARTATE AMINO TRANSFERASE 23 U/L (15-37); BILIRUBIN,TOTAL 0.3 MG/DL (0.2-1.0); BLOOD UREA NITROGEN 27 mg/dL (7-18); CALCIUM 9.3 MG/DL (8.5-10.1); CHLORIDE 102 MMOL/L (98-107); CREATININE 0.7 MG/DL (0.55-1.30); FERRITIN 268 NG/ML (8-388); IRON 111 ug/dL (50-175); PHOSPHORUS 3.9 MG/DL (2.5-4.9); POTASSIUM 3.7 MMOL/L (3.5-5.1); SODIUM 147 MMOL/L (136-145); TOTAL IRON BINDING CAPACITY 218 ug/dL (250-450)
[2018-12-01 06:56] LABS: CARBON DIOXIDE 43 MMOL/L (21-32)
--- NOTE | 2018-12-01 07:25 | NUR ---
NURSE NOTES: received patient report from jaime sepulveda. patient is on bed awake. not in acute distress. patient is dnr/dni. patient is reported to be susana at night, lowest 45 but patient was asleep during that time. dr lujan made aware and order to inform dr martinez. will follow plan of care.
--- NOTE | 2018-12-01 07:28 | NUR ---
HAND-OFF: Report given to GENNY Doss. Pt is resting on the bed and no sign of acute distress noted. On Tele monitor with Bradycardia HR 56's. Pt has episode of bradycardia HR going down to 45's and no symptomatic. Dr. Nichole visited and assessed Pt. New order received consult to Dr. Campbell.
[2018-12-01 08:00] VITALS: BP 134/72
[2018-12-01] MEDS: Heparin 5000 units/ml inj SUBQ SCH ×2 (08:21→21:10)
[2018-12-01] MEDS: cefTRIAXone 1 GM in D5W 55 ML IVPB SCH (11:11)
--- NOTE | 2018-12-01 11:12 | Nephrology Progress Note ---
Assessment/Plan Problem List: (1) Hyperkalemia (2) COPD with exacerbation (3) Hypoxia Assessment COPD with exacerbation CO2 retention Hyperkalemia Plan Kayexelate given 11/29 BIPAP optimize pulm state monitor lytes 2D echo EjFx 55% steroids, taper as possible - Defer to Pulmonary Subjective ROS Limited/Unobtainable: No Objective Objective Last 24 Hour Vital Signs Date Time Temp Pulse Resp B/P (MAP) Pulse Ox O2 Delivery O2 Flow Rate FiO2 12/01/18 09:00 45 12/01/18 08:00 69 12/01/18 08:00 97.7 59 20 134/72 (92) 95 12/01/18 08:00 Bi-pap 12/01/18 08:00 45 12/01/18 08:00 45 12/01/18 07:55 62 18 98 Nasal Cannula 4.0 36 12/01/18 07:47 61 18 98 Nasal Cannula 4.0 36 12/01/18 04:51 61 18 98 Facial 45 12/01/18 04:00 97.7 58 23 133/62 (85) 100 12/01/18 04:00 45 12/01/18 04:00 45 12/01/18 04:00 Bi-pap 12/01/18 03:26 63 18 99 Bi-Pap 45 12/01/18 03:26 64 18 99 Facial 45 12/01/18 03:16 58 18 99 Bi-Pap 45 12/01/18 01:17 72 16 97 Facial 45 12/01/18 00:00 Bi-pap 12/01/18 00:00 45 12/01/18 00:00 49 12/01/18 00:00 98.0 65 23 144/81 (102) 100 11/30/18 23:25 75 18 99 Bi-Pap 45 11/30/18 23:13 65 17 97 Facial 45 11/30/18 23:12 64 16 97 Bi-Pap 45 11/30/18 21:40 64 21 95 Facial 45 11/30/18 20:00 56 11/30/18 20:00 45 11/30/18 20:00 Bi-pap 11/30/18 20:00 98.6 65 23 148/78 (101) 100 11/30/18 18:49 69 16 98 Bi-Pap 45 11/30/18 18:40 66 20 96 Facial 45 11/30/18 18:37 66 20 96 Bi-Pap 45 11/30/18 16:00 67 11/30/18 16:00 Bi-pap 11/30/18 16:00 98.3 69 23 149/75 (99) 100 11/30/18 16:00 45 11/30/18 15:01 62 16 99 Bi-Pap 45 11/30/18 14:51 69 20 97 Facial 45 11/30/18 14:51 69 16 95 Bi-Pap 45 11/30/18 12:35 74 20 96 Facial 45 11/30/18 12:00 74 11/30/18 12:00 Bi-pap 11/30/18 12:00 45 11/30/18 12:00 97.6 67 22 126/70 (88) 99 Intake and Output 11/30/18 12/01/18 19:00 07:00 Intake Total 560 ml Output Total 250 ml 300 ml Balance 310 ml -300 ml Intake Oral 450 ml IV Total 110 ml Output Urine Total 250 ml 300 ml # Bowel Movements 1 Laboratory Tests 12/01/18 04:35: White Blood Count 7.0, Red Blood Count 3.91L, Hemoglobin 11.6L, Hematocrit 36.7L , Mean Corpuscular Volume 94, Mean Corpuscular Hemoglobin 29.6, Mean Corpuscular Hemoglobin Concent 31.6L, Red Cell Distribution Width 14.5, Platelet Count 173, Mean Platelet Volume 8.5, Neutrophils (%) (Auto) , Lymphocytes (%) (Auto) , Monocytes (%) (Auto) , Eosinophils (%) (Auto) , Basophils (%) (Auto) , Differential Total Cells Counted 100, Neutrophils % ( Manual) 89H, Lymphocytes % (Manual) 5L, Monocytes % (Manual) 6, Eosinophils % ( Manual) 0, Basophils % (Manual) 0, Band Neutrophils 0, Platelet Estimate Adequate, Platelet Morphology Normal, Anisocytosis 1+, Sodium Level 147H, Potassium Level 3.7, Chloride Level 102, Carbon Dioxide Level 43*H, Anion Gap 2L , Blood Urea Nitrogen 27H, Creatinine 0.7, Estimat Glomerular Filtration Rate , Glucose Level 125H, Uric Acid 3.0, Calcium Level 9.3, Phosphorus Level 3.9, Magnesium Level 2.1, Iron Level 111, Total Iron Binding Capacity 218L, Percent Iron Saturation 51H, Unsaturated Iron Binding 107L, Ferritin 268, Total Bilirubin 0.3, Aspartate Amino Transf (AST/SGOT) 23, Alanine Aminotransferase ( ALT/SGPT) 45, Alkaline Phosphatase 77, C-Reactive Protein, Quantitative < 0.4, Pro-B-Type Natriuretic Peptide 141H, Total Protein 7.1, Albumin 3.5, Globulin 3.6, Albumin/Globulin Ratio 1.0 Height (Feet): 6 Height (Inches): 0.00 Weight (Pounds): 165 General Appearance: no apparent distress Respiratory/Chest: decreased breath sounds Abdomen: distended Felipe Salmon MD Dec 01, 2018 11:12
[2018-12-01 12:00] VITALS: BP 105/59
[2018-12-01 16:00] VITALS: BP 133/61
--- NOTE | 2018-12-01 18:01 | Pulmonology Progress Note ---
Assessment/Plan Assessment/Plan COPD with exacerbation Hypoxic and Hypercapneic respiratory failure Hyperkalemia Severe COPD on home oxygen and BiPAP Cardiac Disease Hypertension Diabetes Plan: IV Steroids as is HHN to continue BiPAP - PRN Repeat ABG as needed Antibiotics as is patient DNAR/DNI status, POLST completed impression, plan, and exam edited and reviewed in detail care discussed with RN Subjective Allergies: Coded Allergies: No Known Allergies (Unverified , 06/05/18) Subjective seems improved on oxygen off BIPAP Objective Last 24 Hour Vital Signs Date Time Temp Pulse Resp B/P (MAP) Pulse Ox O2 Delivery O2 Flow Rate FiO2 12/01/18 16:00 57 12/01/18 16:00 45 12/01/18 16:00 Nasal Cannula 4.0 12/01/18 16:00 97.3 53 20 133/61 (85) 100 12/01/18 15:27 64 18 97 Nasal Cannula 4.0 36 12/01/18 15:19 62 18 95 Nasal Cannula 4.0 36 12/01/18 12:00 51 12/01/18 12:00 Bi-pap 12/01/18 12:00 97.3 61 20 105/59 (74) 95 12/01/18 11:30 62 18 98 Nasal Cannula 4.0 36 12/01/18 11:30 63 18 98 Nasal Cannula 4.0 36 12/01/18 09:00 45 12/01/18 08:00 69 12/01/18 08:00 97.7 59 20 134/72 (92) 95 12/01/18 08:00 Bi-pap 12/01/18 08:00 45 12/01/18 08:00 45 12/01/18 07:55 62 18 98 Nasal Cannula 4.0 36 12/01/18 07:47 61 18 98 Nasal Cannula 4.0 36 12/01/18 04:51 61 18 98 Facial 45 12/01/18 04:00 97.7 58 23 133/62 (85) 100 12/01/18 04:00 45 12/01/18 04:00 45 12/01/18 04:00 Bi-pap 12/01/18 03:26 63 18 99 Bi-Pap 45 12/01/18 03:26 64 18 99 Facial 45 12/01/18 03:16 58 18 99 Bi-Pap 45 12/01/18 01:17 72 16 97 Facial 45 12/01/18 00:00 Bi-pap 12/01/18 00:00 45 12/01/18 00:00 49 12/01/18 00:00 98.0 65 23 144/81 (102) 100 11/30/18 23:25 75 18 99 Bi-Pap 45 11/30/18 23:13 65 17 97 Facial 45 11/30/18 23:12 64 16 97 Bi-Pap 45 11/30/18 21:40 64 21 95 Facial 45 11/30/18 20:00 56 11/30/18 20:00 45 11/30/18 20:00 Bi-pap 11/30/18 20:00 98.6 65 23 148/78 (101) 100 11/30/18 18:49 69 16 98 Bi-Pap 45 11/30/18 18:40 66 20 96 Facial 45 11/30/18 18:37 66 20 96 Bi-Pap 45 Intake and Output 11/30/18 12/01/18 19:00 07:00 Intake Total 560 ml Output Total 250 ml 300 ml Balance 310 ml -300 ml Intake Oral 450 ml IV Total 110 ml Output Urine Total 250 ml 300 ml # Bowel Movements 1 Objective WDWN NAD reduced breath sounds bilaterally without rhonchi or wheeze [id number] without MRG NABS nontender no HSM no CCE nonfocal Microbiology Date/Time Source Procedure Growth Status 11/29/18 08:35 Blood Blood Culture - Preliminary NO GROWTH AFTER 24 HOURS Resulted 11/29/18 08:20 Blood Blood Culture - Preliminary NO GROWTH AFTER 24 HOURS Resulted 11/29/18 14:00 Nose - Final Complete 11/29/18 14:00 Nose - Final Complete 11/29/18 15:50 Urine,Clean Catch Urine Culture - Final Citrobacter Freundii Complete Laboratory Tests 12/01/18 04:35: White Blood Count 7.0, Red Blood Count 3.91L, Hemoglobin 11.6L, Hematocrit 36.7L , Mean Corpuscular Volume 94, Mean Corpuscular Hemoglobin 29.6, Mean Corpuscular Hemoglobin Concent 31.6L, Red Cell Distribution Width 14.5, Platelet Count 173, Mean Platelet Volume 8.5, Neutrophils (%) (Auto) , Lymphocytes (%) (Auto) , Monocytes (%) (Auto) , Eosinophils (%) (Auto) , Basophils (%) (Auto) , Differential Total Cells Counted 100, Neutrophils % ( Manual) 89H, Lymphocytes % (Manual) 5L, Monocytes % (Manual) 6, Eosinophils % ( Manual) 0, Basophils % (Manual) 0, Band Neutrophils 0, Platelet Estimate Adequate, Platelet Morphology Normal, Anisocytosis 1+, Sodium Level 147H, Potassium Level 3.7, Chloride Level 102, Carbon Dioxide Level 43*H, Anion Gap 2L , Blood Urea Nitrogen 27H, Creatinine 0.7, Estimat Glomerular Filtration Rate , Glucose Level 125H, Uric Acid 3.0, Calcium Level 9.3, Phosphorus Level 3.9, Magnesium Level 2.1, Iron Level 111, Total Iron Binding Capacity 218L, Percent Iron Saturation 51H, Unsaturated Iron Binding 107L, Ferritin 268, Total Bilirubin 0.3, Aspartate Amino Transf (AST/SGOT) 23, Alanine Aminotransferase ( ALT/SGPT) 45, Alkaline Phosphatase 77, C-Reactive Protein, Quantitative < 0.4, Pro-B-Type Natriuretic Peptide 141H, Total Protein 7.1, Albumin 3.5, Globulin 3.6, Albumin/Globulin Ratio 1.0 Current Medications Medications (Trade) Dose Ordered Sig/Brittani Route PRN Reason Start Time Stop Time Status Last Admin Dose Admin Acetaminophen (Tylenol) 650 mg Q6H PRN ORAL Mild Pain/Temp > 100.5 11/29/18 09:15 12/29/18 08:59 Albuterol/ Ipratropium (Albuterol/ Ipratropium) 3 ml Q4HRT HHN 11/29/18 11:00 12/04/18 10:59 12/01/18 15:19 Ceftriaxone Sodium 1 gm/ Dextrose 55 ml @ 110 mls/hr Q24H IVPB 11/29/18 11:00 12/06/18 10:59 12/01/18 11:11 Dextrose (Dextrose 50%) 25 ml Q30M PRN IV Hypoglycemia 11/29/18 09:30 12/29/18 09:29 Dextrose (Dextrose 50%) 50 ml Q30M PRN IV Hypoglycemia 11/29/18 09:30 12/29/18 09:29 Doxycycline Monohydrate (Doxycycline Monohydrate) 100 mg Q12HR ORAL 11/29/18 21:00 12/06/18 20:59 12/01/18 08:20 Guaifenesin (Robitussin) 200 mg Q6H PRN ORAL For Cough 11/29/18 09:30 12/29/18 09:29 Heparin Sodium (Porcine) (Heparin 5000 units/ml) 5,000 units EVERY 12 HOURS SUBQ 11/29/18 21:00 12/29/18 20:59 12/01/18 08:21 Insulin Aspart (NovoLOG) BEFORE MEALS AND HS SUBQ 11/29/18 11:30 12/29/18 11:29 12/01/18 16:36 Methylprednisolone Sodium Succinate (Solu-MEDROL) 60 mg EVERY 8 HOURS IVP 11/29/18 14:00 12/29/18 13:59 12/01/18 14:34 Ondansetron HCl (Zofran) 4 mg Q8H PRN IVP Nausea & Vomiting 11/29/18 09:15 12/29/18 09:14 Pantoprazole (Protonix) 40 mg DAILY ORAL 11/29/18 15:15 12/29/18 15:14 12/01/18 08:20 Osbaldo Merino MD Dec 01, 2018 18:01
--- NOTE | 2018-12-01 18:58 | Cardiac Electrophysiology PN ---
Subjective Subjective [id number] Objective Last 24 Hour Vital Signs Date Time Temp Pulse Resp B/P (MAP) Pulse Ox O2 Delivery O2 Flow Rate FiO2 12/01/18 16:00 57 12/01/18 16:00 45 12/01/18 16:00 Nasal Cannula 4.0 12/01/18 16:00 97.3 53 20 133/61 (85) 100 12/01/18 15:27 64 18 97 Nasal Cannula 4.0 36 12/01/18 15:19 62 18 95 Nasal Cannula 4.0 36 12/01/18 12:00 51 12/01/18 12:00 Bi-pap 12/01/18 12:00 97.3 61 20 105/59 (74) 95 12/01/18 11:30 62 18 98 Nasal Cannula 4.0 36 12/01/18 11:30 63 18 98 Nasal Cannula 4.0 36 12/01/18 09:00 45 12/01/18 08:00 69 12/01/18 08:00 97.7 59 20 134/72 (92) 95 12/01/18 08:00 Bi-pap 12/01/18 08:00 45 12/01/18 08:00 45 12/01/18 07:55 62 18 98 Nasal Cannula 4.0 36 12/01/18 07:47 61 18 98 Nasal Cannula 4.0 36 12/01/18 04:51 61 18 98 Facial 45 12/01/18 04:00 97.7 58 23 133/62 (85) 100 12/01/18 04:00 45 12/01/18 04:00 45 12/01/18 04:00 Bi-pap 12/01/18 03:26 63 18 99 Bi-Pap 45 12/01/18 03:26 64 18 99 Facial 45 12/01/18 03:16 58 18 99 Bi-Pap 45 12/01/18 01:17 72 16 97 Facial 45 12/01/18 00:00 Bi-pap 12/01/18 00:00 45 12/01/18 00:00 49 12/01/18 00:00 98.0 65 23 144/81 (102) 100 11/30/18 23:25 75 18 99 Bi-Pap 45 11/30/18 23:13 65 17 97 Facial 45 11/30/18 23:12 64 16 97 Bi-Pap 45 11/30/18 21:40 64 21 95 Facial 45 11/30/18 20:00 56 11/30/18 20:00 45 11/30/18 20:00 Bi-pap 11/30/18 20:00 98.6 65 23 148/78 (101) 100 Intake and Output 11/30/18 12/01/18 19:00 07:00 Intake Total 560 ml Output Total 250 ml 300 ml Balance 310 ml -300 ml Intake Oral 450 ml IV Total 110 ml Output Urine Total 250 ml 300 ml # Bowel Movements 1 Laboratory Tests Test 12/01/18 04:35 White Blood Count 7.0 K/UL (4.8-10.8) Red Blood Count 3.91 M/UL (4.70-6.10) L Hemoglobin 11.6 G/DL (14.2-18.0) L Hematocrit 36.7 % (42.0-52.0) L Mean Corpuscular Volume 94 FL (80-99) Mean Corpuscular Hemoglobin 29.6 PG (27.0-31.0) Mean Corpuscular Hemoglobin Concent 31.6 G/DL (32.0-36.0) L Red Cell Distribution Width 14.5 % (11.6-14.8) Platelet Count 173 K/UL (150-450) Mean Platelet Volume 8.5 FL (6.5-10.1) Neutrophils (%) (Auto) % (45.0-75.0) Lymphocytes (%) (Auto) % (20.0-45.0) Monocytes (%) (Auto) % (1.0-10.0) Eosinophils (%) (Auto) % (0.0-3.0) Basophils (%) (Auto) % (0.0-2.0) Differential Total Cells Counted 100 Neutrophils % (Manual) 89 % (45-75) H Lymphocytes % (Manual) 5 % (20-45) L Monocytes % (Manual) 6 % (1-10) Eosinophils % (Manual) 0 % (0-3) Basophils % (Manual) 0 % (0-2) Band Neutrophils 0 % (0-8) Platelet Estimate Adequate Platelet Morphology Normal Anisocytosis 1+ Sodium Level 147 MMOL/L (136-145) H Potassium Level 3.7 MMOL/L (3.5-5.1) Chloride Level 102 MMOL/L (98-107) Carbon Dioxide Level 43 MMOL/L (21-32) *H Anion Gap 2 mmol/L (5-15) L Blood Urea Nitrogen 27 mg/dL (7-18) H Creatinine 0.7 MG/DL (0.55-1.30) Estimat Glomerular Filtration Rate mL/min (>60) Glucose Level 125 MG/DL (74-106) H Uric Acid 3.0 MG/DL (2.6-7.2) Calcium Level 9.3 MG/DL (8.5-10.1) Phosphorus Level 3.9 MG/DL (2.5-4.9) Magnesium Level 2.1 MG/DL (1.8-2.4) Iron Level 111 ug/dL (50-175) Total Iron Binding Capacity 218 ug/dL (250-450) L Percent Iron Saturation 51 % (15-50) H Unsaturated Iron Binding 107 ug/dL (112-346) L Ferritin 268 NG/ML (8-388) Total Bilirubin 0.3 MG/DL (0.2-1.0) Aspartate Amino Transf (AST/SGOT) 23 U/L (15-37) Alanine Aminotransferase (ALT/SGPT) 45 U/L (12-78) Alkaline Phosphatase 77 U/L (46-116) C-Reactive Protein, Quantitative < 0.4 mg/dL (0.00-0.90) Pro-B-Type Natriuretic Peptide 141 pg/mL (0-125) H Total Protein 7.1 G/DL (6.4-8.2) Albumin 3.5 G/DL (3.4-5.0) Globulin 3.6 g/dL Albumin/Globulin Ratio 1.0 (1.0-2.7) Microbiology Date/Time Source Procedure Growth Status 11/29/18 08:35 Blood Blood Culture - Preliminary NO GROWTH AFTER 24 HOURS Resulted 11/29/18 08:20 Blood Blood Culture - Preliminary NO GROWTH AFTER 24 HOURS Resulted 11/29/18 14:00 Nose - Final Complete 11/29/18 14:00 Nose - Final Complete 11/29/18 15:50 Urine,Clean Catch Urine Culture - Final Citrobacter Freundii Complete Lv Campbell MD Dec 01, 2018 18:58
--- NOTE | 2018-12-01 19:19 | NUR ---
HAND-OFF: Report given to fletcher sepulveda.
--- NOTE | 2018-12-01 19:30 | NUR ---
NURSE NOTES: RECEIVED PATIENT FROM Reagan MCMAHON RN.ALERT ORIENTED X 4 ,ON 3 L/NC WITH GOOD 02 SAT.NO SHORTNESS OF BREATH NOTED.SR ON THE MONITOR NO COMPLAIN OF PAIN AT THIS TIME.
[2018-12-01 20:00] VITALS: BP 130/64
--- NOTE | 2018-12-01 21:30 | General Progress Note ---
Assessment/Plan Problem List: (1) Pulmonary hypertension ICD Codes: I27.20 - Pulmonary hypertension, unspecified SNOMED: 03032774 (2) CO2 retention ICD Codes: E87.2 - Acidosis SNOMED: 30944251 (3) COPD with exacerbation ICD Codes: J44.1 - Chronic obstructive pulmonary disease with (acute) exacerbation SNOMED: 791971393 Status: progressing Assessment/Plan: afebrile pulmonary htn resp insuff no wheezing copd off bipap hypercapnia Subjective ROS Limited/Unobtainable: Yes Allergies: Coded Allergies: No Known Allergies (Unverified , 06/05/18) Objective Last 24 Hour Vital Signs Date Time Temp Pulse Resp B/P (MAP) Pulse Ox O2 Delivery O2 Flow Rate FiO2 12/01/18 19:36 62 18 97 Nasal Cannula 4.0 36 12/01/18 19:26 63 20 96 Nasal Cannula 4.0 36 12/01/18 16:00 57 12/01/18 16:00 45 12/01/18 16:00 Nasal Cannula 4.0 12/01/18 16:00 97.3 53 20 133/61 (85) 100 12/01/18 15:27 64 18 97 Nasal Cannula 4.0 36 12/01/18 15:19 62 18 95 Nasal Cannula 4.0 36 12/01/18 12:00 51 12/01/18 12:00 Bi-pap 12/01/18 12:00 97.3 61 20 105/59 (74) 95 12/01/18 11:30 62 18 98 Nasal Cannula 4.0 36 12/01/18 11:30 63 18 98 Nasal Cannula 4.0 36 12/01/18 09:00 45 12/01/18 08:00 69 12/01/18 08:00 97.7 59 20 134/72 (92) 95 12/01/18 08:00 Bi-pap 12/01/18 08:00 45 12/01/18 08:00 45 12/01/18 07:55 62 18 98 Nasal Cannula 4.0 36 12/01/18 07:47 61 18 98 Nasal Cannula 4.0 36 12/01/18 04:51 61 18 98 Facial 45 12/01/18 04:00 97.7 58 23 133/62 (85) 100 12/01/18 04:00 45 6/15/19 04:00 45 12/01/18 04:00 Bi-pap 12/01/18 03:26 63 18 99 Bi-Pap 45 12/01/18 03:26 64 18 99 Facial 45 12/01/18 03:16 58 18 99 Bi-Pap 45 12/01/18 01:17 72 16 97 Facial 45 12/01/18 00:00 Bi-pap 12/01/18 00:00 45 12/01/18 00:00 49 12/01/18 00:00 98.0 65 23 144/81 (102) 100 11/30/18 23:25 75 18 99 Bi-Pap 45 11/30/18 23:13 65 17 97 Facial 45 11/30/18 23:12 64 16 97 Bi-Pap 45 11/30/18 21:40 64 21 95 Facial 45 Intake and Output 11/30/18 12/01/18 19:00 07:00 Intake Total 560 ml Output Total 250 ml 300 ml Balance 310 ml -300 ml Intake Oral 450 ml IV Total 110 ml Output Urine Total 250 ml 300 ml # Bowel Movements 1 Laboratory Tests 12/01/18 04:35: White Blood Count 7.0, Red Blood Count 3.91L, Hemoglobin 11.6L, Hematocrit 36.7L , Mean Corpuscular Volume 94, Mean Corpuscular Hemoglobin 29.6, Mean Corpuscular Hemoglobin Concent 31.6L, Red Cell Distribution Width 14.5, Platelet Count 173, Mean Platelet Volume 8.5, Neutrophils (%) (Auto) , Lymphocytes (%) (Auto) , Monocytes (%) (Auto) , Eosinophils (%) (Auto) , Basophils (%) (Auto) , Differential Total Cells Counted 100, Neutrophils % ( Manual) 89H, Lymphocytes % (Manual) 5L, Monocytes % (Manual) 6, Eosinophils % ( Manual) 0, Basophils % (Manual) 0, Band Neutrophils 0, Platelet Estimate Adequate, Platelet Morphology Normal, Anisocytosis 1+, Sodium Level 147H, Potassium Level 3.7, Chloride Level 102, Carbon Dioxide Level 43*H, Anion Gap 2L , Blood Urea Nitrogen 27H, Creatinine 0.7, Estimat Glomerular Filtration Rate , Glucose Level 125H, Uric Acid 3.0, Calcium Level 9.3, Phosphorus Level 3.9, Magnesium Level 2.1, Iron Level 111, Total Iron Binding Capacity 218L, Percent Iron Saturation 51H, Unsaturated Iron Binding 107L, Ferritin 268, Total Bilirubin 0.3, Aspartate Amino Transf (AST/SGOT) 23, Alanine Aminotransferase ( ALT/SGPT) 45, Alkaline Phosphatase 77, C-Reactive Protein, Quantitative < 0.4, Pro-B-Type Natriuretic Peptide 141H, Total Protein 7.1, Albumin 3.5, Globulin 3.6, Albumin/Globulin Ratio 1.0 Height (Feet): 6 Height (Inches): 0.00 Weight (Pounds): 165 Neck: supple Cardiovascular: normal rate Respiratory/Chest: lungs clear Abdomen: soft Oskar Nichole MD Dec 01, 2018 21:30
--- NOTE | 2018-12-01 22:00 | NUR ---
NURSE NOTES: PATIENT REQUESTED TO BE PLACED ON A BIPAP,RT MADE AWARE AND PLACED HIM ON THE BIPAP AT ORDERED SETTINGS,WELL TOLERATED.
--- NOTE | 2018-12-01 23:05 | NUR ---
RESPIRATORY NOTE: Received pt on BiPAP 02/11, backup rate 16, 35%. Pt on a Facial mask, skin intact, no redness/breakdowns noted. Foam tape applied on pt's nosebridge/cheeks/chin to prevent any mask irritations. Pt alert/awake, follows commands. B/S bogdna. diminished, nonproductive cough. BiPAP plugged into red outlet, alarms on & audible. Pt resting comfortably, wanted to keep the BiPAP on longer. Will continue plan of care.
--- NOTE | 2018-12-01 23:30 | NUR ---
RESPIRATORY NOTE: Pt requested to take off BiPAP after giving the breathing tx. Pt placed back on 3L NC. Pt in no apparent distress. Will continue plan of care.
[2018-12-02] VITALS: BP 115/54
--- NOTE | 2018-12-02 | NUR ---
NURSE NOTES: PATIENT OFF BIPAP REQUESTED,BACK TO 3 L/NC WELL TOLERATED.
--- NOTE | 2018-12-02 02:45 | Consultation ---
DATE OF CONSULTATION: 12/01/2018 CARDIOLOGY CONSULTATION CONSULTING PHYSICIAN: Lv Zuniga M.D. REFERRING PHYSICIAN: Oskar Nichole M.D. REASON FOR CONSULTATION: Bradycardia. HISTORY OF PRESENT ILLNESS: The patient is a 72-year-old gentleman with a history of hypertension, COPD, and history of nonsustained ventricular tachycardia in the setting of normal ejection fraction of 65% based on previous echo in June 2018. The patient also has a history of depression and hypoxemia. The patient was admitted to the hospital for increasing shortness of breath. The patient received Solu-Medrol and breathing treatment. The patient, however, noted to be bradycardic and Cardiology consultation was obtained for further evaluation and management. REVIEW OF SYSTEMS: Review of systems was negative other than what was mentioned in the history of present illness. PAST MEDICAL HISTORY: As mentioned above. FAMILY HISTORY: Noncontributory. ALLERGIES: No known drug allergies. MEDICATIONS: Per reconciliation. PHYSICAL EXAMINATION: VITAL SIGNS: Blood pressure is 132/61, pulse 53, respirations 18, and temperature 97.3. HEENT: Head and neck shows mild JVD. LUNGS: Decreased breath sounds. Coarse rhonchi. CARDIOVASCULAR: Shows regular S1 and S2. Bradycardic with no gallop or murmur. ABDOMEN: Soft. EXTREMITIES: No pitting edema. LABORATORY AND DIAGNOSTIC DATA: His EKG showed normal sinus rhythm with sinus arrhythmia. The telemetry strip showed bradycardia, heart rate down to 40s. Laboratories show white count of 7, hemoglobin 11.6, hematocrit 36.7, and platelet count 173,000. Sodium is 147, potassium 3.7, BUN of 27, creatinine 0.7. His bicarb is 43. His troponin is negative x3. ASSESSMENT AND PLAN: 1. Bradycardia. The patient will be ruled out for myocardial infarction. This was transient. We will check a thyroid function test. Keep the patient off any sinus or AV lauryn blocking agents. 2. Shortness of breath due to chronic obstructive pulmonary disease exacerbation. Ejection fraction to normal range, on Solu-Medrol 60 mg every 8 hours. Albuterol, ceftriaxone, and guaifenesin. 3. Hypertension. Blood pressure currently is stable, off antihypertensive agents. 4. Elevated bicarb level and hyperkalemia. The patient is currently under the management of Dr. Salmon. 5. The patient's echocardiogram on November 29, 2018, also showed ejection fraction of 55%. Thank you very much, Dr. Nichole, for allowing me to participate in the care of this patient. Please do not hesitate to contact me for any questions regarding my evaluation. Sincerely, Lv Campbell M.D. DR: LORIE JOB#: [id number] CC:
[2018-12-02] MEDS: Albuterol/Ipratropium 3ml neb HHN SCH ×6 (03:18→22:58)
[2018-12-02 04:00] VITALS: BP 119/57
[2018-12-02] MEDS: Solu-MEDROL 125mg Inj IVP SCH (05:57)
[2018-12-02] MEDS: NovoLOG Insulin Flexpen SUBQ SCH ×4 (05:57→21:35)
--- NOTE | 2018-12-02 07:20 | NUR ---
NURSE NOTES: demi patient report from fletcher sepulveda. patient is on bed asleep. not in acute distress. bed is low and locked for safety. bipap was requested by the patient last night. will follow plan of care.
--- NOTE | 2018-12-02 07:21 | NUR ---
NURSE NOTES: REPORT GIVEN TO Reagan MCMAHON RN.NO SIGNIFICANT CHANGE .
[2018-12-02 08:00] VITALS: BP 133/72
[2018-12-02] MEDS: Heparin 5000 units/ml inj SUBQ SCH ×2 (08:08→21:36)
--- NOTE | 2018-12-02 09:44 | Infectious Diseases Prog Note ---
Assessment/Plan Assessment/Plan IMPRESSION: 1. COPD exacerbation. 2. Hypercapnic, hypoxic respiratory failure. 3. Diabetes mellitus. 4. Hypertension. 5. Hypokalemia. 6. Muscular wasting. 7. UTI with Citrobacter 8. Bradycardia RECOMMENDATION: Continue with doxycycline and ceftriaxone continue with prednisone and bronchodilators. Subjective ROS Limited/Unobtainable: No Constitutional: Reports: no symptoms, other - doing better Respiratory: Reports: no symptoms Cardiovascular: Reports: no symptoms Gastrointestinal/Abdominal: Reports: no symptoms Genitourinary: Reports: no symptoms Allergies: Coded Allergies: No Known Allergies (Unverified , 06/05/18) Objective Vital Signs Last 24 Hour Vital Signs Date Time Temp Pulse Resp B/P (MAP) Pulse Ox O2 Delivery O2 Flow Rate FiO2 12/02/18 08:00 81 12/02/18 08:00 98.1 59 22 133/72 (92) 97 12/02/18 08:00 Nasal Cannula 4.0 12/02/18 07:22 64 20 99 Nasal Cannula 3.0 32 12/02/18 07:06 65 20 97 Nasal Cannula 3.0 32 12/02/18 04:05 Nasal Cannula 4.0 12/02/18 04:00 97.9 79 20 119/57 (77) 98 12/02/18 04:00 71 12/02/18 03:28 70 18 98 Nasal Cannula 3.0 32 12/02/18 03:18 70 18 95 Nasal Cannula 3.0 32 12/02/18 00:00 65 12/02/18 00:00 Nasal Cannula 4.0 12/02/18 00:00 98.4 76 20 115/54 (74) 98 12/01/18 23:12 63 18 99 Nasal Cannula 3.0 32 12/01/18 23:02 62 24 98 Facial 35 12/01/18 23:02 62 24 98 Bi-Pap 35 12/01/18 20:00 Bi-pap 12/01/18 20:00 66 12/01/18 20:00 98.2 67 20 130/64 (86) 98 12/01/18 20:00 45 12/01/18 19:36 62 18 97 Nasal Cannula 4.0 36 12/01/18 19:26 63 20 96 Nasal Cannula 4.0 36 12/01/18 16:00 57 12/01/18 16:00 45 12/01/18 16:00 Nasal Cannula 4.0 12/01/18 16:00 97.3 53 20 133/61 (85) 100 12/01/18 15:27 64 18 97 Nasal Cannula 4.0 36 12/01/18 15:19 62 18 95 Nasal Cannula 4.0 36 12/01/18 12:00 51 12/01/18 12:00 Bi-pap 12/01/18 12:00 97.3 61 20 105/59 (74) 95 12/01/18 11:30 62 18 98 Nasal Cannula 4.0 36 12/01/18 11:30 63 18 98 Nasal Cannula 4.0 36 Height (Feet): 6 Height (Inches): 0.00 Weight (Pounds): 165 General Appearance: no acute distress HEENT: mucous membranes moist Respiratory/Chest: lungs clear, decreased breath sounds Cardiovascular: normal rate Abdomen: soft, non tender Extremities: no edema Neurologic/Psychiatric: alert, oriented x 3, responsive Microbiology Date/Time Source Procedure Growth Status 12/01/18 15:00 Sputum Gram Stain - Final Resulted 12/01/18 15:00 Sputum Sputum Culture Pending Resulted 11/29/18 14:00 Nose - Final Complete 11/29/18 14:00 Nose - Final Complete 11/29/18 15:50 Urine,Clean Catch Urine Culture - Final Citrobacter Freundii Complete Laboratory Tests Test 12/02/18 04:58 Thyroid Stimulating Hormone (TSH) 0.672 uiU/mL (0.358-3.740) Free Thyroxine 0.88 NG/DL (0.76-1.46) Current Medications Medications (Trade) Dose Ordered Sig/Brittani Route PRN Reason Start Time Stop Time Status Last Admin Dose Admin Acetaminophen (Tylenol) 650 mg Q6H PRN ORAL Mild Pain/Temp > 100.5 11/29/18 09:15 12/29/18 08:59 Albuterol/ Ipratropium (Albuterol/ Ipratropium) 3 ml Q4HRT HHN 11/29/18 11:00 12/04/18 10:59 12/02/18 07:07 Ceftriaxone Sodium 1 gm/ Dextrose 55 ml @ 110 mls/hr Q24H IVPB 11/29/18 11:00 12/06/18 10:59 12/01/18 11:11 Dextrose (Dextrose 50%) 25 ml Q30M PRN IV Hypoglycemia 11/29/18 09:30 12/29/18 09:29 Dextrose (Dextrose 50%) 50 ml Q30M PRN IV Hypoglycemia 11/29/18 09:30 12/29/18 09:29 Doxycycline Monohydrate (Doxycycline Monohydrate) 100 mg Q12HR ORAL 11/29/18 21:00 12/06/18 20:59 12/02/18 08:06 Guaifenesin (Robitussin) 200 mg Q6H PRN ORAL For Cough 11/29/18 09:30 12/29/18 09:29 Heparin Sodium (Porcine) (Heparin 5000 units/ml) 5,000 units EVERY 12 HOURS SUBQ 11/29/18 21:00 12/29/18 20:59 12/02/18 08:08 Insulin Aspart (NovoLOG) BEFORE MEALS AND HS SUBQ 11/29/18 11:30 12/29/18 11:29 12/01/18 21:11 Methylprednisolone Sodium Succinate (Solu-MEDROL) 60 mg EVERY 8 HOURS IVP 11/29/18 14:00 12/29/18 13:59 12/02/18 05:57 Ondansetron HCl (Zofran) 4 mg Q8H PRN IVP Nausea & Vomiting 11/29/18 09:15 12/29/18 09:14 Pantoprazole (Protonix) 40 mg DAILY ORAL 11/29/18 15:15 12/29/18 15:14 12/02/18 08:07 William Avalos MD Dec 02, 2018 09:44
[2018-12-02] MEDS ORDERED: NS 275ml ONE (10:06)
--- NOTE | 2018-12-02 10:56 | Pulmonology Progress Note ---
Assessment/Plan Assessment/Plan COPD with exacerbation Hypoxic and Hypercapneic respiratory failure Hyperkalemia Severe COPD on home oxygen and BiPAP Cardiac Disease Hypertension Diabetes Plan: IV Steroids - taper in am HHN to continue BiPAP - PRN Repeat ABG if needed Antibiotics as is supportive care patient DNAR/DNI status, POLST completed impression, plan, and exam edited and reviewed in detail care discussed with RN Subjective ROS Limited/Unobtainable: Yes Allergies: Coded Allergies: No Known Allergies (Unverified , 06/05/18) Subjective alert on oxygen off BIPAP Objective Last 24 Hour Vital Signs Date Time Temp Pulse Resp B/P (MAP) Pulse Ox O2 Delivery O2 Flow Rate FiO2 12/02/18 08:00 81 12/02/18 08:00 98.1 59 22 133/72 (92) 97 12/02/18 08:00 Nasal Cannula 4.0 12/02/18 07:22 64 20 99 Nasal Cannula 3.0 32 12/02/18 07:06 65 20 97 Nasal Cannula 3.0 32 12/02/18 04:05 Nasal Cannula 4.0 12/02/18 04:00 97.9 79 20 119/57 (77) 98 12/02/18 04:00 71 12/02/18 03:28 70 18 98 Nasal Cannula 3.0 32 12/02/18 03:18 70 18 95 Nasal Cannula 3.0 32 12/02/18 00:00 65 12/02/18 00:00 Nasal Cannula 4.0 12/02/18 00:00 98.4 76 20 115/54 (74) 98 12/01/18 23:12 63 18 99 Nasal Cannula 3.0 32 12/01/18 23:02 62 24 98 Facial 35 12/01/18 23:02 62 24 98 Bi-Pap 35 12/01/18 20:00 Bi-pap 12/01/18 20:00 66 12/01/18 20:00 98.2 67 20 130/64 (86) 98 12/01/18 20:00 45 12/01/18 19:36 62 18 97 Nasal Cannula 4.0 36 12/01/18 19:26 63 20 96 Nasal Cannula 4.0 36 12/01/18 16:00 57 12/01/18 16:00 45 12/01/18 16:00 Nasal Cannula 4.0 12/01/18 16:00 97.3 53 20 133/61 (85) 100 12/01/18 15:27 64 18 97 Nasal Cannula 4.0 36 12/01/18 15:19 62 18 95 Nasal Cannula 4.0 36 12/01/18 12:00 51 12/01/18 12:00 Bi-pap 12/01/18 12:00 97.3 61 20 105/59 (74) 95 12/01/18 11:30 62 18 98 Nasal Cannula 4.0 36 12/01/18 11:30 63 18 98 Nasal Cannula 4.0 36 Intake and Output 12/01/18 12/02/18 19:00 07:00 Intake Total 350 ml 325 ml Output Total 150 ml 600 ml Balance 200 ml -275 ml Intake Oral 350 ml 325 ml Output Urine Total 150 ml 600 ml # Voids 3 Objective WDWN NAD reduced breath sounds bilaterally without rhonchi or wheeze [id number] without MRG NABS nontender no HSM no CCE nonfocal Microbiology Date/Time Source Procedure Growth Status 12/01/18 15:00 Sputum Gram Stain - Final Resulted 12/01/18 15:00 Sputum Sputum Culture Pending Resulted 11/29/18 14:00 Nose - Final Complete 11/29/18 14:00 Nose - Final Complete 11/29/18 15:50 Urine,Clean Catch Urine Culture - Final Citrobacter Freundii Complete Laboratory Tests 12/02/18 04:58: Thyroid Stimulating Hormone (TSH) 0.672, Free Thyroxine 0.88 Current Medications Medications (Trade) Dose Ordered Sig/Brittani Route PRN Reason Start Time Stop Time Status Last Admin Dose Admin Acetaminophen (Tylenol) 650 mg Q6H PRN ORAL Mild Pain/Temp > 100.5 11/29/18 09:15 12/29/18 08:59 Albuterol/ Ipratropium (Albuterol/ Ipratropium) 3 ml Q4HRT HHN 11/29/18 11:00 12/04/18 10:59 12/02/18 07:07 Ceftriaxone Sodium 1 gm/ Dextrose 55 ml @ 110 mls/hr Q24H IVPB 11/29/18 11:00 12/06/18 10:59 12/01/18 11:11 Dextrose (Dextrose 50%) 25 ml Q30M PRN IV Hypoglycemia 11/29/18 09:30 12/29/18 09:29 Dextrose (Dextrose 50%) 50 ml Q30M PRN IV Hypoglycemia 11/29/18 09:30 12/29/18 09:29 Doxycycline Monohydrate (Doxycycline Monohydrate) 100 mg Q12HR ORAL 11/29/18 21:00 12/06/18 20:59 12/02/18 08:06 Guaifenesin (Robitussin) 200 mg Q6H PRN ORAL For Cough 11/29/18 09:30 12/29/18 09:29 Heparin Sodium (Porcine) (Heparin 5000 units/ml) 5,000 units EVERY 12 HOURS SUBQ 11/29/18 21:00 12/29/18 20:59 12/02/18 08:08 Insulin Aspart (NovoLOG) BEFORE MEALS AND HS SUBQ 11/29/18 11:30 12/29/18 11:29 12/01/18 21:11 Methylprednisolone Sodium Succinate (Solu-MEDROL) 60 mg EVERY 8 HOURS IVP 11/29/18 14:00 12/29/18 13:59 12/02/18 05:57 Ondansetron HCl (Zofran) 4 mg Q8H PRN IVP Nausea & Vomiting 11/29/18 09:15 12/29/18 09:14 Pantoprazole (Protonix) 40 mg DAILY ORAL 11/29/18 15:15 12/29/18 15:14 12/02/18 08:07 Osbaldo Merino MD Dec 02, 2018 10:56
[2018-12-02] MEDS: cefTRIAXone 1 GM in D5W 55 ML IVPB SCH (11:06)
[2018-12-02 12:00] VITALS: BP 120/80
--- NOTE | 2018-12-02 13:38 | Nephrology Progress Note ---
Assessment/Plan Problem List: (1) Hyperkalemia (2) COPD with exacerbation (3) Hypoxia Assessment COPD with exacerbation CO2 retention Hyperkalemia Plan Kayexelate given 11/29 BIPAP to Cannula optimize pulm state monitor lytes 2D echo EjFx 55% steroids, taper as possible - Defer to Pulmonary Subjective ROS Limited/Unobtainable: No Constitutional: Reports: malaise Objective Objective Last 24 Hour Vital Signs Date Time Temp Pulse Resp B/P (MAP) Pulse Ox O2 Delivery O2 Flow Rate FiO2 12/02/18 12:00 69 12/02/18 12:00 Nasal Cannula 4.0 12/02/18 12:00 97.9 53 20 120/80 (93) 93 12/02/18 11:29 69 20 99 Nasal Cannula 3.0 32 12/02/18 11:14 72 20 97 Nasal Cannula 3.0 32 12/02/18 08:00 81 12/02/18 08:00 98.1 59 22 133/72 (92) 97 12/02/18 08:00 Nasal Cannula 4.0 12/02/18 07:22 64 20 99 Nasal Cannula 3.0 32 12/02/18 07:06 65 20 97 Nasal Cannula 3.0 32 12/02/18 04:05 Nasal Cannula 4.0 12/02/18 04:00 97.9 79 20 119/57 (77) 98 12/02/18 04:00 71 12/02/18 03:28 70 18 98 Nasal Cannula 3.0 32 12/02/18 03:18 70 18 95 Nasal Cannula 3.0 32 12/02/18 00:00 65 12/02/18 00:00 Nasal Cannula 4.0 12/02/18 00:00 98.4 76 20 115/54 (74) 98 12/01/18 23:12 63 18 99 Nasal Cannula 3.0 32 12/01/18 23:02 62 24 98 Facial 35 12/01/18 23:02 62 24 98 Bi-Pap 35 12/01/18 20:00 Bi-pap 12/01/18 20:00 66 12/01/18 20:00 98.2 67 20 130/64 (86) 98 12/01/18 20:00 45 12/01/18 19:36 62 18 97 Nasal Cannula 4.0 36 6/15/19 19:26 63 20 96 Nasal Cannula 4.0 36 12/01/18 16:00 57 12/01/18 16:00 45 12/01/18 16:00 Nasal Cannula 4.0 12/01/18 16:00 97.3 53 20 133/61 (85) 100 12/01/18 15:27 64 18 97 Nasal Cannula 4.0 36 12/01/18 15:19 62 18 95 Nasal Cannula 4.0 36 Intake and Output 12/01/18 12/02/18 19:00 07:00 Intake Total 350 ml 325 ml Output Total 150 ml 600 ml Balance 200 ml -275 ml Intake Oral 350 ml 325 ml Output Urine Total 150 ml 600 ml # Voids 3 Laboratory Tests 12/02/18 04:58: Thyroid Stimulating Hormone (TSH) 0.672, Free Thyroxine 0.88 Height (Feet): 6 Height (Inches): 0.00 Weight (Pounds): 165 General Appearance: no apparent distress EENT: other - on cannula Respiratory/Chest: decreased breath sounds Abdomen: distended Felipe Salmon MD Dec 02, 2018 13:38
--- NOTE | 2018-12-02 13:54 | Cardiology Report ---
APPROVED REPORT EKG Measurement Heart [id number] MD [id number] Normal sinus rhythm Nonspecific T wave abnormality Abnormal ECG
[2018-12-02 16:00] VITALS: BP 154/76
--- NOTE | 2018-12-02 16:41 | Cardiac Electrophysiology PN ---
Assessment/Plan Assessment/Plan 1. Bradycardia. The patient was ruled out for myocardial infarction. This was transient. Has Nl thyroid function test. Keep the patient off any sinus or AV lauryn blocking agents. 2. Shortness of breath due to chronic obstructive pulmonary disease exacerbation. Ejection fraction to normal range, on Solu-Medrol 60 mg every 8 hours. Albuterol, ceftriaxone, and guaifenesin. 3. Hypertension. Blood pressure currently is stable, off antihypertensive agents. 4. Elevated bicarb level and hyperkalemia. The patient is currently under the management of Dr. Salmon. 5. The patient's echocardiogram on November 29, 2018, also showed ejection fraction of 55%. Subjective Subjective Feeling better. On FERNANDO Objective Last 24 Hour Vital Signs Date Time Temp Pulse Resp B/P (MAP) Pulse Ox O2 Delivery O2 Flow Rate FiO2 12/02/18 16:00 98.1 69 21 154/76 (102) 97 12/02/18 16:00 Nasal Cannula 4.0 12/02/18 16:00 55 12/02/18 16:00 68 20 99 Nasal Cannula 3.0 32 12/02/18 15:52 62 20 97 Nasal Cannula 3.0 32 12/02/18 12:00 69 12/02/18 12:00 Nasal Cannula 4.0 12/02/18 12:00 97.9 53 20 120/80 (93) 93 12/02/18 11:29 69 20 99 Nasal Cannula 3.0 32 12/02/18 11:14 72 20 97 Nasal Cannula 3.0 32 12/02/18 08:00 81 12/02/18 08:00 98.1 59 22 133/72 (92) 97 12/02/18 08:00 Nasal Cannula 4.0 12/02/18 07:22 64 20 99 Nasal Cannula 3.0 32 12/02/18 07:06 65 20 97 Nasal Cannula 3.0 32 12/02/18 04:05 Nasal Cannula 4.0 12/02/18 04:00 97.9 79 20 119/57 (77) 98 12/02/18 04:00 71 12/02/18 03:28 70 18 98 Nasal Cannula 3.0 32 12/02/18 03:18 70 18 95 Nasal Cannula 3.0 32 12/02/18 00:00 65 12/02/18 00:00 Nasal Cannula 4.0 12/02/18 00:00 98.4 76 20 115/54 (74) 98 12/01/18 23:12 63 18 99 Nasal Cannula 3.0 32 12/01/18 23:02 62 24 98 Facial 35 12/01/18 23:02 62 24 98 Bi-Pap 35 12/01/18 20:00 Bi-pap 12/01/18 20:00 66 12/01/18 20:00 98.2 67 20 130/64 (86) 98 12/01/18 20:00 45 12/01/18 19:36 62 18 97 Nasal Cannula 4.0 36 12/01/18 19:26 63 20 96 Nasal Cannula 4.0 36 Intake and Output 12/01/18 12/02/18 19:00 07:00 Intake Total 460 ml 325 ml Output Total 150 ml 600 ml Balance 310 ml -275 ml Intake Oral 350 ml 325 ml IV Total 110 ml Output Urine Total 150 ml 600 ml # Voids 3 Laboratory Tests Test 12/02/18 04:58 Thyroid Stimulating Hormone (TSH) 0.672 uiU/mL (0.358-3.740) Free Thyroxine 0.88 NG/DL (0.76-1.46) Microbiology Date/Time Source Procedure Growth Status 12/01/18 15:00 Sputum Gram Stain - Final Resulted 12/01/18 15:00 Sputum Sputum Culture Pending Resulted Objective HEENT: Head and neck shows mild JVD. LUNGS: Decreased breath sounds. Coarse rhonchi. CARDIOVASCULAR: Shows regular S1 and S2. Bradycardic with no gallop or murmur. ABDOMEN: Soft. EXTREMITIES: No pitting edema. Lv Campbell MD Dec 02, 2018 16:41
--- NOTE | 2018-12-02 19:00 | NUR ---
NURSE NOTES: report given to gómez sepulveda
--- NOTE | 2018-12-02 19:01 | NUR ---
NURSE NOTES: Received patient from Selam ROYAL. Patient is awake, talking, and alert and oriented X4 on room air. No acute distress. Bed rails x3 up, call light in reach and bed at its lowest position. Will continue to monitor.
[2018-12-02 20:00] VITALS: BP 143/70
[2018-12-02] MEDS: Solu-MEDROL 40mg Inj IVP SCH (21:37)
--- NOTE | 2018-12-02 21:59 | General Progress Note ---
Assessment/Plan Problem List: (1) Pulmonary hypertension ICD Codes: I27.20 - Pulmonary hypertension, unspecified SNOMED: 44451207 (2) CO2 retention ICD Codes: E87.2 - Acidosis SNOMED: 15461363 (3) COPD with exacerbation ICD Codes: J44.1 - Chronic obstructive pulmonary disease with (acute) exacerbation SNOMED: 001473448 Status: progressing Assessment/Plan: vitals stable no acute events pulmonary htn resp insuff no wheezing copd off bipap hypercapnia improving Subjective ROS Limited/Unobtainable: Yes Allergies: Coded Allergies: No Known Allergies (Unverified , 06/05/18) Objective Last 24 Hour Vital Signs Date Time Temp Pulse Resp B/P (MAP) Pulse Ox O2 Delivery O2 Flow Rate FiO2 12/02/18 19:14 62 18 95 Nasal Cannula 3.0 32 12/02/18 16:00 98.1 69 21 154/76 (102) 97 12/02/18 16:00 Nasal Cannula 4.0 12/02/18 16:00 55 12/02/18 16:00 68 20 99 Nasal Cannula 3.0 32 12/02/18 15:52 62 20 97 Nasal Cannula 3.0 32 12/02/18 12:00 69 12/02/18 12:00 Nasal Cannula 4.0 12/02/18 12:00 97.9 53 20 120/80 (93) 93 12/02/18 11:29 69 20 99 Nasal Cannula 3.0 32 12/02/18 11:14 72 20 97 Nasal Cannula 3.0 32 12/02/18 08:00 81 12/02/18 08:00 98.1 59 22 133/72 (92) 97 12/02/18 08:00 Nasal Cannula 4.0 12/02/18 07:22 64 20 99 Nasal Cannula 3.0 32 12/02/18 07:06 65 20 97 Nasal Cannula 3.0 32 12/02/18 04:05 Nasal Cannula 4.0 12/02/18 04:00 97.9 79 20 119/57 (77) 98 12/02/18 04:00 71 12/02/18 03:28 70 18 98 Nasal Cannula 3.0 32 12/02/18 03:18 70 18 95 Nasal Cannula 3.0 32 12/02/18 00:00 65 12/02/18 00:00 Nasal Cannula 4.0 12/02/18 00:00 98.4 76 20 115/54 (74) 98 12/01/18 23:12 63 18 99 Nasal Cannula 3.0 32 12/01/18 23:02 62 24 98 Facial 35 12/01/18 23:02 62 24 98 Bi-Pap 35 Intake and Output 12/01/18 12/02/18 19:00 07:00 Intake Total 460 ml 325 ml Output Total 150 ml 600 ml Balance 310 ml -275 ml Intake Oral 350 ml 325 ml IV Total 110 ml Output Urine Total 150 ml 600 ml # Voids 3 Laboratory Tests 12/02/18 04:58: Thyroid Stimulating Hormone (TSH) 0.672, Free Thyroxine 0.88 Height (Feet): 6 Height (Inches): 0.00 Weight (Pounds): 165 Neck: supple Cardiovascular: regular rhythm Respiratory/Chest: lungs clear Abdomen: soft Oskar Nichole MD Dec 02, 2018 21:59
--- NOTE | 2018-12-02 22:00 | NUR ---
NURSE NOTES: Patient is talking and cooperative with all treatments. Patient is very active, talkative, and constantly bends his arm with the IV. IV fluids stop intermittently, but restarted.
[2018-12-03] VITALS: BP 145/83
[2018-12-03] MEDS: Albuterol/Ipratropium 3ml neb HHN SCH ×5 (03:15→19:15)
[2018-12-03 04:00] VITALS: BP 137/62
[2018-12-03 04:29] LABS: HEMATOCRIT 36.1 % (42.0-52.0); HEMOGLOBIN 11.3 G/DL (14.2-18.0); MEAN CORPUSCULAR VOLUME 94 FL (80-99); PLATELET COUNT 148 K/UL (150-450); RED BLOOD COUNT 3.84 M/UL (4.70-6.10); RED CELL DISTRIBUTION WIDTH 14.8 % (11.6-14.8); WHITE BLOOD COUNT 5.4 K/UL (4.8-10.8)
[2018-12-03 04:53] LABS: ALANINE AMINOTRANSFERASE 65 U/L (12-78); ALBUMIN 3.3 G/DL (3.4-5.0); ALBUMIN/GLOBULIN RATIO 1.1 (1.0-2.7); ALKALINE PHOSPHATASE 67 U/L (46-116); ANION GAP 1 mmol/L (5-15); ASPARTATE AMINO TRANSFERASE 35 U/L (15-37); BILIRUBIN,TOTAL 0.3 MG/DL (0.2-1.0); BLOOD UREA NITROGEN 22 mg/dL (7-18); CALCIUM 9.2 MG/DL (8.5-10.1); CARBON DIOXIDE 39 MMOL/L (21-32); CHLORIDE 102 MMOL/L (98-107); CREATININE 0.7 MG/DL (0.55-1.30); PHOSPHORUS 3.6 MG/DL (2.5-4.9); POTASSIUM 3.8 MMOL/L (3.5-5.1); SODIUM 143 MMOL/L (136-145)
--- NOTE | 2018-12-03 05:15 | Cardiac Electrophysiology PN ---
Assessment/Plan Assessment/Plan 1. Bradycardia. The patient was ruled out for myocardial infarction. This was transient. Has Nl thyroid function test. Keep the patient off any sinus or AV lauryn blocking agents. 2. Shortness of breath due to chronic obstructive pulmonary disease exacerbation. Ejection fraction to normal range, on Solu-Medrol 60 mg every 8 hours. Albuterol, ceftriaxone, and guaifenesin. 3. Hypertension. Blood pressure currently is stable, off antihypertensive agents. 4. Elevated bicarb level and hyperkalemia. The patient is currently under the management of Dr. Salmon. 5. The patient's echocardiogram on November 29, 2018, also showed ejection fraction of 55%. 6. Encephalopathy in restraints DW RN Subjective Subjective Confused in restraints on Oxygen. Objective Last 24 Hour Vital Signs Date Time Temp Pulse Resp B/P (MAP) Pulse Ox O2 Delivery O2 Flow Rate FiO2 12/03/18 04:00 98.0 62 22 137/62 (87) 100 12/03/18 04:00 Nasal Cannula 4.0 12/03/18 03:50 67 22 99 Nasal Cannula 3.0 32 12/03/18 03:17 66 22 98 Nasal Cannula 3.0 32 12/03/18 01:47 58 16 100 Facial 35 12/03/18 00:00 Nasal Cannula 4.0 12/03/18 00:00 98.4 63 20 145/83 (103) 97 12/03/18 00:00 55 12/02/18 23:19 61 22 100 Bi-Pap 35 12/02/18 22:59 62 23 100 Facial 35 12/02/18 22:59 62 25 98 Bi-Pap 35 12/02/18 20:00 97.9 61 20 143/70 (94) 97 12/02/18 20:00 62 12/02/18 20:00 Nasal Cannula 4.0 12/02/18 19:25 78 18 99 Nasal Cannula 3.0 32 12/02/18 19:14 62 18 95 Nasal Cannula 3.0 32 12/02/18 16:00 98.1 69 21 154/76 (102) 97 12/02/18 16:00 Nasal Cannula 4.0 12/02/18 16:00 55 12/02/18 16:00 68 20 99 Nasal Cannula 3.0 32 12/02/18 15:52 62 20 97 Nasal Cannula 3.0 32 12/02/18 12:00 69 12/02/18 12:00 Nasal Cannula 4.0 12/02/18 12:00 97.9 53 20 120/80 (93) 93 12/02/18 11:29 69 20 99 Nasal Cannula 3.0 32 12/02/18 11:14 72 20 97 Nasal Cannula 3.0 32 12/02/18 08:00 81 12/02/18 08:00 98.1 59 22 133/72 (92) 97 12/02/18 08:00 Nasal Cannula 4.0 12/02/18 07:22 64 20 99 Nasal Cannula 3.0 32 12/02/18 07:06 65 20 97 Nasal Cannula 3.0 32 Intake and Output 12/02/18 12/03/18 18:59 06:59 Intake Total 360 ml Output Total 275 ml Balance 85 ml Intake Oral 250 ml IV Total 110 ml Output Urine Total 275 ml # Bowel Movements 1 Laboratory Tests Test 12/03/18 03:15 White Blood Count 5.4 K/UL (4.8-10.8) Red Blood Count 3.84 M/UL (4.70-6.10) L Hemoglobin 11.3 G/DL (14.2-18.0) L Hematocrit 36.1 % (42.0-52.0) L Mean Corpuscular Volume 94 FL (80-99) Mean Corpuscular Hemoglobin 29.4 PG (27.0-31.0) Mean Corpuscular Hemoglobin Concent 31.2 G/DL (32.0-36.0) L Red Cell Distribution Width 14.8 % (11.6-14.8) Platelet Count 148 K/UL (150-450) L Mean Platelet Volume 7.1 FL (6.5-10.1) Neutrophils (%) (Auto) % (45.0-75.0) Lymphocytes (%) (Auto) % (20.0-45.0) Monocytes (%) (Auto) % (1.0-10.0) Eosinophils (%) (Auto) % (0.0-3.0) Basophils (%) (Auto) % (0.0-2.0) Sodium Level 143 MMOL/L (136-145) Potassium Level 3.8 MMOL/L (3.5-5.1) Chloride Level 102 MMOL/L (98-107) Carbon Dioxide Level 39 MMOL/L (21-32) H Anion Gap 1 mmol/L (5-15) L Blood Urea Nitrogen 22 mg/dL (7-18) H Creatinine 0.7 MG/DL (0.55-1.30) Estimat Glomerular Filtration Rate mL/min (>60) Glucose Level 114 MG/DL (74-106) H Calcium Level 9.2 MG/DL (8.5-10.1) Phosphorus Level 3.6 MG/DL (2.5-4.9) Magnesium Level 2.0 MG/DL (1.8-2.4) Total Bilirubin 0.3 MG/DL (0.2-1.0) Aspartate Amino Transf (AST/SGOT) 35 U/L (15-37) Alanine Aminotransferase (ALT/SGPT) 65 U/L (12-78) Alkaline Phosphatase 67 U/L (46-116) C-Reactive Protein, Quantitative < 0.4 mg/dL (0.00-0.90) Pro-B-Type Natriuretic Peptide 155 pg/mL (0-125) H Total Protein 6.2 G/DL (6.4-8.2) L Albumin 3.3 G/DL (3.4-5.0) L Globulin 2.9 g/dL Albumin/Globulin Ratio 1.1 (1.0-2.7) Microbiology Date/Time Source Procedure Growth Status 12/01/18 15:00 Sputum Gram Stain - Final Resulted 12/01/18 15:00 Sputum Sputum Culture Pending Resulted Objective HEENT: Mild JVD. NG tube is in LUNGS: Decreased breath sounds. Coarse rhonchi. CARDIOVASCULAR: Shows regular S1 and S2. with no gallop or murmur. ABDOMEN: Soft. EXTREMITIES: No pitting edema. Lv Campbell MD Dec 03, 2018 05:15
[2018-12-03] MEDS: NovoLOG Insulin Flexpen SUBQ SCH ×4 (06:13→20:42)
--- NOTE | 2018-12-03 06:42 | NUR ---
NURSE NOTES: Patient is resting well. Patient refused Bipap at 2230. Charge nurse and RT notified. Patient tolerated sleep with 2L NC. Saturation level at 100% throughout the night.
--- NOTE | 2018-12-03 07:36 | NUR ---
HAND-OFF: Report given to Argenis Singleton RN.
--- NOTE | 2018-12-03 07:37 | NUR ---
NURSE NOTES: RECEIVED PATIENT FROM Elisabeth MAIN RN. PATIENT IS LYING IN BED, AWAKE. HOOKED TO NUCLEAR PHYSICIST. 4L NC. NO SIGNS OF DISTRESS OF THE MOMENT. IV ON R AC G22, SL. CALL LIGHT WITHIN REACH. SIDE RAILS UP. BED AT LOWEST POSITION. WILL CONTINUE OT MONITOR.
[2018-12-03 08:00] VITALS: BP 126/75
--- NOTE | 2018-12-03 08:30 | NUR ---
NURSE NOTES: HE USED THE BEDSIDE AND NOTED 1 BM. PATIENT HAD AN EPISODE OF SOB. PLACED ON BIPAP. WILL CONTINUE TO MONITOR.
[2018-12-03] MEDS: Solu-MEDROL 40mg Inj IVP SCH (09:10)
[2018-12-03] MEDS: Heparin 5000 units/ml inj SUBQ SCH ×2 (09:12→20:43)
--- NOTE | 2018-12-03 09:50 | Cardiology Report ---
APPROVED REPORT EXAM: Two-dimensional and M-mode echocardiogram with Doppler and color Doppler. INDICATION Congestive Heart Failure M-Mode DIMENSIONS IVSd1.0 (0.7-1.1cm)Left Atrium (MM)2.4 (1.6-4.0cm) LVDd4.7 (3.5-5.6cm)Aortic Root3.0 (2.0-3.7cm) PWd1.0 (0.7-1.1cm)Aortic Cusp Exc.2.0 (1.5-2.0cm) LVDs2.6 (2.5-4.0cm) PWs1.4 cm Technically difficult study due to poor acoustic windows. All images obtained from subcostal. Study quality precludes accurate assessment of regional wall motion. Normal left ventricular chamber size, systolic function and wall motion. Left ventricular ejection fraction estimated to be 55 %. No evidence of left ventricular hypertrophy. No evidence of pericardial effusion. Mild right ventricular enlargement. Right atrial chamber size is within normal limits. Left atrial chamber size is within normal limits. Focal aortic valve sclerosis with adequate cusp excursion. Thickened mitral valve leaflets with normal excursion. Mild mitral annulus and aortic root calcification. Pulmonic valve not well visualized. Normal tricuspid valve structure. IVC is normal in size without physiological collapse. A color flow and spectral Doppler study was performed and revealed: Moderate aortic regurgitation. Peak aortic valve gradient of 20 mmHg and a mean of 7 mmHg. Trace mitral regurgitation. Normal left ventricular diastolic function. Mild tricuspid regurgitation. Tricuspid systolic velocities suggests peak right ventricular systolic pressure of 50 mmHg, consistent with moderate pulmonary hypertension. Trace pulmonic regurgitation present.
--- NOTE | 2018-12-03 10:02 | NUR ---
DISCHARGE PLANNING: NOTE CM ORDER NOTED. CLINICALS FAXED TO [facility] F: [phone] T [phone] Addendum: 12/03/18 at 1110 by Tonya Pepper CM [facility] CONFIRMED THAT SHE RECEIVED CLINICALS AND IS REVIEWING. Addendum: 12/03/18 at 1142 by Tonya Pepper CM BIPAP SETTINGS FAXED TO [facility]. ROOM [address] PROVIDED. AWAITING ETA OF BIPAP DELIVERY PRIOR TO ARRANGING TRANSPO
--- NOTE | 2018-12-03 11:00 | NUR ---
NURSE NOTES: SEEN AND EXAMINED BY DR CHIN. AWAITING FOR PLACEMENT. WILL CONTINUE TO MONITOR.
[2018-12-03 12:00] VITALS: BP 124/56
[2018-12-03] MEDS: cefTRIAXone 1 GM in D5W 55 ML IVPB SCH (12:10)
--- NOTE | 2018-12-03 12:28 | Nephrology Progress Note ---
Assessment/Plan Problem List: (1) Hyperkalemia (2) COPD with exacerbation (3) Hypoxia Assessment COPD with exacerbation CO2 retention Hyperkalemia . Plan Kayexelate given 11/29 BIPAP to Cannula optimize pulm state monitor lytes 2D echo EjFx 55% steroids, taper as possible - Defer to Pulmonary Subjective ROS Limited/Unobtainable: No Constitutional: Reports: malaise Objective Objective Last 24 Hour Vital Signs Date Time Temp Pulse Resp B/P (MAP) Pulse Ox O2 Delivery O2 Flow Rate FiO2 12/03/18 10:30 66 22 100 Bi-Pap 40 12/03/18 10:21 66 16 100 Bi-Pap 40 12/03/18 08:00 97.7 67 22 126/75 (92) 100 12/03/18 08:00 82 12/03/18 07:00 Nasal Cannula 3.0 32 12/03/18 07:00 Nasal Cannula 3.0 32 12/03/18 04:00 98.0 62 22 137/62 (87) 100 12/03/18 04:00 Nasal Cannula 4.0 12/03/18 04:00 62 12/03/18 03:50 67 22 99 Nasal Cannula 3.0 32 12/03/18 03:17 66 22 98 Nasal Cannula 3.0 32 12/03/18 01:47 58 16 100 Facial 35 12/03/18 00:00 Nasal Cannula 4.0 12/03/18 00:00 98.4 63 20 145/83 (103) 97 12/03/18 00:00 55 12/02/18 23:19 61 22 100 Bi-Pap 35 12/02/18 22:59 62 23 100 Facial 35 12/02/18 22:59 62 25 98 Bi-Pap 35 12/02/18 20:00 97.9 61 20 143/70 (94) 97 12/02/18 20:00 62 12/02/18 20:00 Nasal Cannula 4.0 12/02/18 19:25 78 18 99 Nasal Cannula 3.0 32 12/02/18 19:14 62 18 95 Nasal Cannula 3.0 32 12/02/18 16:00 98.1 69 21 154/76 (102) 97 12/02/18 16:00 Nasal Cannula 4.0 12/02/18 16:00 55 12/02/18 16:00 68 20 99 Nasal Cannula 3.0 32 12/02/18 15:52 62 20 97 Nasal Cannula 3.0 32 Intake and Output 12/02/18 12/03/18 19:00 07:00 Intake Total 360 ml 275 ml Output Total 275 ml 300 ml Balance 85 ml -25 ml Intake Oral 250 ml 275 ml IV Total 110 ml Output Urine Total 275 ml 300 ml # Voids 1 # Bowel Movements 1 Laboratory Tests 12/03/18 03:15: White Blood Count 5.4, Red Blood Count 3.84L, Hemoglobin 11.3L, Hematocrit 36.1L , Mean Corpuscular Volume 94, Mean Corpuscular Hemoglobin 29.4, Mean Corpuscular Hemoglobin Concent 31.2L, Red Cell Distribution Width 14.8, Platelet Count 148L, Mean Platelet Volume 7.1, Neutrophils (%) (Auto) , Lymphocytes (%) (Auto) , Monocytes (%) (Auto) , Eosinophils (%) (Auto) , Basophils (%) (Auto) , Sodium Level 143, Potassium Level 3.8, Chloride Level 102 , Carbon Dioxide Level 39H, Anion Gap 1L, Blood Urea Nitrogen 22H, Creatinine 0.7, Estimat Glomerular Filtration Rate , Glucose Level 114H, Calcium Level 9.2 , Phosphorus Level 3.6, Magnesium Level 2.0, Total Bilirubin 0.3, Aspartate Amino Transf (AST/SGOT) 35, Alanine Aminotransferase (ALT/SGPT) 65, Alkaline Phosphatase 67, C-Reactive Protein, Quantitative < 0.4, Pro-B-Type Natriuretic Peptide 155H, Total Protein 6.2L, Albumin 3.3L, Globulin 2.9, Albumin/Globulin Ratio 1.1 Height (Feet): 6 Height (Inches): 0.00 Weight (Pounds): 165 General Appearance: no apparent distress Cardiovascular: normal rate Respiratory/Chest: decreased breath sounds Abdomen: soft Felipe Salmon MD Dec 03, 2018 12:28
--- NOTE | 2018-12-03 13:19 | Pulmonology Progress Note ---
Assessment/Plan Assessment/Plan COPD with exacerbation Hypoxic and Hypercapneic respiratory failure Hyperkalemia Severe COPD on home oxygen and BiPAP Cardiac Disease Hypertension Diabetes Plan: IV Steroids - dc HHN to continue as is BiPAP - PRN Repeat ABG if needed Antibiotics as is supportive care ok to tele patient DNAR/DNI status, POLST completed impression, plan, and exam edited and reviewed in detail care discussed with RN Subjective Allergies: Coded Allergies: No Known Allergies (Unverified , 06/05/18) Subjective alert on oxygen off BIPAP appears improved Objective Last 24 Hour Vital Signs Date Time Temp Pulse Resp B/P (MAP) Pulse Ox O2 Delivery O2 Flow Rate FiO2 12/03/18 10:30 66 22 100 Bi-Pap 40 12/03/18 10:21 66 16 100 Bi-Pap 40 12/03/18 08:00 97.7 67 22 126/75 (92) 100 12/03/18 08:00 82 12/03/18 07:00 Nasal Cannula 3.0 32 12/03/18 07:00 Nasal Cannula 3.0 32 12/03/18 04:00 98.0 62 22 137/62 (87) 100 12/03/18 04:00 Nasal Cannula 4.0 12/03/18 04:00 62 12/03/18 03:50 67 22 99 Nasal Cannula 3.0 32 12/03/18 03:17 66 22 98 Nasal Cannula 3.0 32 12/03/18 01:47 58 16 100 Facial 35 12/03/18 00:00 Nasal Cannula 4.0 12/03/18 00:00 98.4 63 20 145/83 (103) 97 12/03/18 00:00 55 12/02/18 23:19 61 22 100 Bi-Pap 35 12/02/18 22:59 62 23 100 Facial 35 12/02/18 22:59 62 25 98 Bi-Pap 35 12/02/18 20:00 97.9 61 20 143/70 (94) 97 12/02/18 20:00 62 12/02/18 20:00 Nasal Cannula 4.0 12/02/18 19:25 78 18 99 Nasal Cannula 3.0 32 12/02/18 19:14 62 18 95 Nasal Cannula 3.0 32 12/02/18 16:00 98.1 69 21 154/76 (102) 97 12/02/18 16:00 Nasal Cannula 4.0 12/02/18 16:00 55 12/02/18 16:00 68 20 99 Nasal Cannula 3.0 32 12/02/18 15:52 62 20 97 Nasal Cannula 3.0 32 Intake and Output 12/02/18 12/03/18 19:00 07:00 Intake Total 360 ml 275 ml Output Total 275 ml 300 ml Balance 85 ml -25 ml Intake Oral 250 ml 275 ml IV Total 110 ml Output Urine Total 275 ml 300 ml # Voids 1 # Bowel Movements 1 Objective WDWN NAD reduced breath sounds bilaterally without rhonchi or wheeze [id number] without MRG NABS nontender no HSM no CCE nonfocal Microbiology Date/Time Source Procedure Growth Status 12/01/18 15:00 Sputum Gram Stain - Final Complete 12/01/18 15:00 Sputum Culture - Final Elena Albicans Usual Respiratory Matilde Complete Laboratory Tests 12/03/18 03:15: White Blood Count 5.4, Red Blood Count 3.84L, Hemoglobin 11.3L, Hematocrit 36.1L , Mean Corpuscular Volume 94, Mean Corpuscular Hemoglobin 29.4, Mean Corpuscular Hemoglobin Concent 31.2L, Red Cell Distribution Width 14.8, Platelet Count 148L, Mean Platelet Volume 7.1, Neutrophils (%) (Auto) , Lymphocytes (%) (Auto) , Monocytes (%) (Auto) , Eosinophils (%) (Auto) , Basophils (%) (Auto) , Sodium Level 143, Potassium Level 3.8, Chloride Level 102 , Carbon Dioxide Level 39H, Anion Gap 1L, Blood Urea Nitrogen 22H, Creatinine 0.7, Estimat Glomerular Filtration Rate , Glucose Level 114H, Calcium Level 9.2 , Phosphorus Level 3.6, Magnesium Level 2.0, Total Bilirubin 0.3, Aspartate Amino Transf (AST/SGOT) 35, Alanine Aminotransferase (ALT/SGPT) 65, Alkaline Phosphatase 67, C-Reactive Protein, Quantitative < 0.4, Pro-B-Type Natriuretic Peptide 155H, Total Protein 6.2L, Albumin 3.3L, Globulin 2.9, Albumin/Globulin Ratio 1.1 Current Medications Medications (Trade) Dose Ordered Sig/Brittani Route PRN Reason Start Time Stop Time Status Last Admin Dose Admin Acetaminophen (Tylenol) 650 mg Q6H PRN ORAL Mild Pain/Temp > 100.5 11/29/18 09:15 12/29/18 08:59 Albuterol/ Ipratropium (Albuterol/ Ipratropium) 3 ml Q4HRT HHN 11/29/18 11:00 12/04/18 10:59 12/03/18 10:21 Ceftriaxone Sodium 1 gm/ Dextrose 55 ml @ 110 mls/hr Q24H IVPB 11/29/18 11:00 12/06/18 10:59 12/03/18 12:10 Dextrose (Dextrose 50%) 25 ml Q30M PRN IV Hypoglycemia 11/29/18 09:30 12/29/18 09:29 Dextrose (Dextrose 50%) 50 ml Q30M PRN IV Hypoglycemia 11/29/18 09:30 12/29/18 09:29 Doxycycline Monohydrate (Doxycycline Monohydrate) 100 mg Q12HR ORAL 11/29/18 21:00 12/06/18 20:59 12/03/18 09:10 Guaifenesin (Robitussin) 200 mg Q6H PRN ORAL For Cough 11/29/18 09:30 12/29/18 09:29 Heparin Sodium (Porcine) (Heparin 5000 units/ml) 5,000 units EVERY 12 HOURS SUBQ 11/29/18 21:00 12/29/18 20:59 12/03/18 09:12 Insulin Aspart (NovoLOG) BEFORE MEALS AND HS SUBQ 11/29/18 11:30 12/29/18 11:29 12/02/18 21:35 Methylprednisolone Sodium Succinate (Solu-MEDROL) 40 mg EVERY 12 HOURS IVP 12/02/18 21:00 12/29/18 13:59 12/03/18 09:10 Ondansetron HCl (Zofran) 4 mg Q8H PRN IVP Nausea & Vomiting 11/29/18 09:15 12/29/18 09:14 Pantoprazole (Protonix) 40 mg DAILY ORAL 11/29/18 15:15 12/29/18 15:14 12/03/18 09:09 Osbaldo Merino MD Dec 03, 2018 13:19
[2018-12-03 16:00] VITALS: BP 136/80
--- NOTE | 2018-12-03 17:26 | NUR ---
DISCHARGE DISPOSITION: PLEASE READ PLEASE CONFIRM WITH SHELTER THAT BIPAP IS AT BEDSIDE PRIOR TO DC PATIENT TO BE DISCHARGED TO [place] [id number] [facility] RO[address] T: >>> CALL RN FOR RE[phone] WILL CALL NERISSA SOLIS IS AWARE OF DCP AND IS AGREEABLE
--- NOTE | 2018-12-03 18:32 | NUR ---
NURSE NOTES: AWAITING BIPAP ON PLACEMENT. WILL CONTINUE TO MONITOR.
--- NOTE | 2018-12-03 19:36 | NUR ---
HAND-OFF: Report given to Alfredo Macdonald RN.
--- NOTE | 2018-12-03 19:40 | NUR ---
NURSE NOTES: Report received from GENNY Meyers. Observed pt lying on the bed. A/O x4, denies any pain at this time. SR with media monitor. On 2L without SOB noted. IV on R AC 20G, SL. No distress noted at this time. Bed in the lowest position. Side rails up x 2. Call light within reach. Will continue to monitor.
[2018-12-03 20:00] VITALS: BP 122/75
--- NOTE | 2018-12-03 20:37 | General Progress Note ---
Assessment/Plan Problem List: (1) Pulmonary hypertension ICD Codes: I27.20 - Pulmonary hypertension, unspecified SNOMED: 77600919 (2) CO2 retention ICD Codes: E87.2 - Acidosis SNOMED: 15524566 (3) COPD with exacerbation ICD Codes: J44.1 - Chronic obstructive pulmonary disease with (acute) exacerbation SNOMED: 410421812 Status: progressing Assessment/Plan: pna needs iv abx and pt/ot afebrile resp insuff no wheezing copd off bipap hypercapnia improving Subjective ROS Limited/Unobtainable: Yes Allergies: Coded Allergies: No Known Allergies (Unverified , 06/05/18) Objective Last 24 Hour Vital Signs Date Time Temp Pulse Resp B/P (MAP) Pulse Ox O2 Delivery O2 Flow Rate FiO2 12/03/18 19:16 70 22 99 Nasal Cannula 2.0 28 12/03/18 19:10 71 20 98 Nasal Cannula 28 12/03/18 16:00 Nasal Cannula 4.0 12/03/18 16:00 97.7 64 20 136/80 (98) 98 12/03/18 16:00 68 12/03/18 15:28 72 20 99 Nasal Cannula 2.0 28 12/03/18 15:15 68 18 97 Nasal Cannula 28 12/03/18 12:00 Nasal Cannula 4.0 12/03/18 12:00 97.5 80 22 124/56 (78) 94 12/03/18 12:00 66 12/03/18 10:30 66 22 100 Bi-Pap 40 12/03/18 10:21 66 16 100 Bi-Pap 40 12/03/18 08:00 Nasal Cannula 4.0 12/03/18 08:00 97.7 67 22 126/75 (92) 100 12/03/18 08:00 82 12/03/18 07:00 Nasal Cannula 3.0 32 12/03/18 07:00 Nasal Cannula 3.0 32 12/03/18 04:00 98.0 62 22 137/62 (87) 100 12/03/18 04:00 Nasal Cannula 4.0 12/03/18 04:00 62 12/03/18 03:50 67 22 99 Nasal Cannula 3.0 32 12/03/18 03:17 66 22 98 Nasal Cannula 3.0 32 12/03/18 01:47 58 16 100 Facial 35 12/03/18 00:00 Nasal Cannula 4.0 12/03/18 00:00 98.4 63 20 145/83 (103) 97 12/03/18 00:00 55 12/02/18 23:19 61 22 100 Bi-Pap 35 12/02/18 22:59 62 23 100 Facial 35 12/02/18 22:59 62 25 98 Bi-Pap 35 Intake and Output 12/02/18 12/03/18 19:00 07:00 Intake Total 360 ml 275 ml Output Total 275 ml 300 ml Balance 85 ml -25 ml Intake Oral 250 ml 275 ml IV Total 110 ml Output Urine Total 275 ml 300 ml # Voids 1 # Bowel Movements 1 Laboratory Tests 12/03/18 03:15: White Blood Count 5.4, Red Blood Count 3.84L, Hemoglobin 11.3L, Hematocrit 36.1L , Mean Corpuscular Volume 94, Mean Corpuscular Hemoglobin 29.4, Mean Corpuscular Hemoglobin Concent 31.2L, Red Cell Distribution Width 14.8, Platelet Count 148L, Mean Platelet Volume 7.1, Neutrophils (%) (Auto) , Lymphocytes (%) (Auto) , Monocytes (%) (Auto) , Eosinophils (%) (Auto) , Basophils (%) (Auto) , Sodium Level 143, Potassium Level 3.8, Chloride Level 102 , Carbon Dioxide Level 39H, Anion Gap 1L, Blood Urea Nitrogen 22H, Creatinine 0.7, Estimat Glomerular Filtration Rate , Glucose Level 114H, Calcium Level 9.2 , Phosphorus Level 3.6, Magnesium Level 2.0, Total Bilirubin 0.3, Aspartate Amino Transf (AST/SGOT) 35, Alanine Aminotransferase (ALT/SGPT) 65, Alkaline Phosphatase 67, C-Reactive Protein, Quantitative < 0.4, Pro-B-Type Natriuretic Peptide 155H, Total Protein 6.2L, Albumin 3.3L, Globulin 2.9, Albumin/Globulin Ratio 1.1 Height (Feet): 6 Height (Inches): 0.00 Weight (Pounds): 165 Neck: supple Cardiovascular: normal rate Respiratory/Chest: lungs clear Oskar Nichole MD Dec 03, 2018 20:37
--- NOTE | 2018-12-03 23:10 | NUR ---
NURSE NOTES: Report given to GENNY Zaldivar at [facility]. Observed pt lying on the bed. No distress noted at this time.
--- NOTE | 2018-12-03 23:35 | NUR ---
NURSE NOTES: NURSE NOTES: Pt is discharged to [facility]. Report given to ambulance personnel. No distress noted at this time. Pt A/O x4. VS WNL. No signs of SOB. Discharge instruction given. software validation engineer out. Belonging sent with pt.
[2018-12-03] MEDS ORDERED: NS 275ml ONE (23:36)
[2018-12-03] MEDS ORDERED: Tubing IV Secondary IV ONE (23:36)
--- NOTE | 2018-12-04 13:11 | Discharge Summary ---
Discharge Summary Discharge Summary _ DATE OF ADMISSION: 11/29/2018 DATE OF DISCHARGE: 12/03/2018 DISCHARGED BY: REASON FOR ADMISSION: 72 years old male with past medical history of hypertension, severe COPD/ emphysema , diabetes mellitus, was brought to the emergency department due to difficulty with breathing. Patient with DNR/DNI status. Patient require placement on BiPAP. Laboratory work-up revealed no leukocytosis, hemoglobin 12.6, hematocrit 42.1. ABG on BiPAP 12/5 with FiO2 of 25% demonstrated severe respiratory acidosis with pH 7.28, PCO2 112, O2 sat 89. Potassium 5.8. CO2 43. BUN 20, creatinine 0.7. Glucose 74. AST 46, ALT 46. Albumin 3.7. Chest x-ray demonstrated COPD changes, no definite acute abnormality. Patient subsequently admitted to direct observational unit for further management. CONSULTANTS: ambulatory care coordinator Dr. Pablo pulmonary Dr. Wilber DANIELS specialist Dr. Disla windsurfing instructor Dr. Salmon HOSPITAL COURSE: Patient admitted to [facility]. Patient was initially on BiPAP. Pulmonary toilet with bronchodilator therapy via handheld nebulizing provided. Patient started on the IV steroids with tapering down and empiric antibiotic. Supplemental oxygen titrated to keep pulse oximetry above 90%. Patient was followed-up with ABG. Overweaver closely followed. Antitussive provided as needed Serial troponin x2 were negative. EKG revealed no acute ischemic changes. Patient was ruled out for acute myocardial infarction. Echocardiogram demonstrated preserved ejection fraction of 55%. No evidence of left ventricular hypertrophy. No evidence of wall motion abnormality. Moderate aortic regurgitation. Right ventricular systolic pressure of 50 , consistent with moderate pulmonary hypertension. Blood pressure was closely monitored and managed with current regimen. Lipid panel demonstrated elevated total cholesterol 215 , elevated LDL 120, HDL 84, triglycerides 42. Patient noted to have transient bradycardia. Thyroid function test was stable. Facility Operations Manager recommended to avoid sinus or AV lauryn blocking agents. Heart rate stabilized. Blood cultures were negative. Sputum culture revealed Elena. Urine culture revealed Citrobacter . ID specialist follows. Antibiotics provided as per ID specialist recommendations. Renal parameters and electrolytes were closely monitored. Hyperkalemia was addressed. Prior to discharge potassium 3.8 . Nephrotoxic's were avoided as possible. Line Producer recommended to taper steroids as soon as possible. Prior to discharge BUN 22, creatinine 0.7. Patient was eventually able to be weaned from the BiPAP and placed on supplemental oxygen , which titrated to keep pulse oximetry above 92% Hemoglobin and hematocrit were closely monitored with goal to keep hemoglobin above 7. Anemia work-up revealed sufficient iron , stable folate and B12. Blood sugar was managed with sliding scale of insulin on as needed basis. GI prophylaxis provided. Pain management was addressed. Supportive care provided. Bowel regimen instituted. Patient with DNR/DNI status. Overall prognosis poor, given severe COPD/emphysema. [facility] to [facility]. [facility] was arranged at the [facility] facility [facility]. BiPAP was arranged prior to transfer. Patient subsequently was transferred to [facility] facility for continuation of care. 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 DISCHARGE INSTRUCTIONS: Patient was discharged to the [facility] facility. Follow up with medical doctor at the facility. I have been assigned to dictate discharge summary for this account. I was not involved in the patient's management. Almita An NP Dec 04, 2018 13:11
== END 2018-12-03 23:37 | DRG 190 ==
LOC: EDBD 01:30 → EDUNIT# 01:30 → EMR 01:40 → 2W 02:16 → EDBEDREQ 05:03
PROC: 5A09457 Assistance with Respiratory Ventilation, 24-96 Consecutive Hours, Continuous Positive Airway Pressure (ICD-10-PCS; principal; 2018-11-29)
DX: J44.1 Chronic obstructive pulmonary disease with (acute) exacerbation (principal); J96.91 Respiratory failure, unspecified with hypoxia; J96.92 Respiratory failure, unspecified with hypercapnia; N39.0 Urinary tract infection, site not specified; G93.40 Encephalopathy, unspecified; E87.2 Acidosis; M62.58 Muscle wasting and atrophy, not elsewhere classified, other site; E87.5 Hyperkalemia; I27.20 Pulmonary hypertension, unspecified; B96.89 Other specified bacterial agents as the cause of diseases classified elsewhere; E11.9 Type 2 diabetes mellitus without complications; R00.1 Bradycardia, unspecified; Z99.81 Dependence on supplemental oxygen
CPT/HCPCS: 36415; 36600; 71045; 80048; 80053; 80061; 81003; 82140; 82607; 82728; 82746; 82803; 82962; 83036; 83540; 83550; 83735; 83880; 84100; 84439; 84443; 84484; 84550; 85007; 85025; 86140; 86710; 87040; 87070; 87086; 87181; 87205; 87420; 93005; 93306; 94640; 94660; 94664; 96374; 99285; J1815; J7620

== ENCOUNTER 2019-01-26 05:41 | Inpatient (IN) | payer MEDICARE ==
[2019-01-26] VITALS (48 sets, daily range): BP systolic 42–208; BP diastolic 12–157
[~2019-01-26] VITALS: Ht 177.8 cm; Wt 74.4 kg
[~2019-01-26 05:41] MED LIST changes: +ALBUTEROL2.5 MG/3 M INH; +NYSTATIN100000 UN1 ORAL; +SYMBICORT 16010.2 G1 IH; +UNOBMED
[2019-01-26] MEDS ORDERED: Albuterol ud Inhalation HHN ONE (05:45)
[2019-01-26] MEDS ORDERED: Ipratropium 0.02% Inh Soln 2.5ml UD HHN ONE (05:45)
[2019-01-26] MEDS ORDERED: Solu-MEDROL 125mg Inj IVP ONE (05:45)
--- NOTE | 2019-01-26 05:57 | Emergency Room Report ---
History of Present Illness General Chief Complaint: Dyspnea/Respdistress Source: Patient, EMS Present Illness HPI Patient presents with acute shortness of breath Paramedics report previous history of COPD patient is brought in from home Patient's history is limited as the patient is in extreme respiratory distress Not able to provide full specifics there was no obvious reports of vomiting or diarrhea Unknown regarding fever on review of medical records patient was here recently with similar presentation and has had several visits with fairly severe distress and COPD Allergies: Coded Allergies: No Known Allergies (Unverified , 06/05/18) Patient History Limited by: medical condition Reviewed Nursing Documentation: PMH: Agreed; PSxH: Agreed Nursing Documentation-PMH Hx Cardiac Problems: Yes - CHF Hx Hypertension: Yes Hx Asthma: Yes Hx COPD: Yes Hx Diabetes: Yes Hx Cancer: No Hx Gastrointestinal Problems: No Hx Neurological Problems: No Review of Systems All Other Systems: limited - Other than the ones mentioned in the history of present illness all others are reviewed however they do stay limited due to the patient's mental status Physical Exam 100% on a breathing treatment Sp02 EP Interpretation: normal General Appearance: moderate distress - Short of breath Head: normocephalic, atraumatic Eyes: bilateral eye PERRL, bilateral eye EOMI ENT: hearing grossly normal, normal pharynx Neck: supple Respiratory: other - Tachypneic, using accessory muscle use appears in acute distress, Cardiovascular #1: tachycardia Gastrointestinal: non tender, soft Genitourinary: no CVA tenderness Musculoskeletal: normal inspection Neurologic: responsive - However has limited speech secondary to respiratory distress Skin: no rash, palpation normal Lymphatic: no adenopathy Procedures Critical Care Time Critical Care Time 50 minutes for multiple re-evaluations presentation concerning for respiratory failure not including any procedural time Intubation Intubation : Consent: Emergent Intubation Method: orotracheal Tube Size (cm): 8.0 Medications: Etomidate, Succinylcholine Breath Sounds after Intubation: equal Intubation Complications: no complications Post Intubation Xray: Yes Attempts: One Patient Tolerated: Well Complications: None Medical Decision Making Diagnostic Impression: Primary Impression: Dyspnea Additional Impression: Respiratory distress ER Course Patient is a fairly complex patient with multiple differential to consideration including but not limited to cardiac cardiopulmonary and vascular emergencies Patient continued to decompensate ABG is also very concerning patient requiring airway intubation and more definitive management Please refer to the procedural note for that patient tolerated well At this time continues with acute intervention and ICU admission Labs Test 01/26/19 05:45 White Blood Count 9.6 K/UL (4.8-10.8) Red Blood Count 4.57 M/UL (4.70-6.10) Hemoglobin 13.5 G/DL (14.2-18.0) Hematocrit 46.0 % (42.0-52.0) Mean Corpuscular Volume 101 FL (80-99) Mean Corpuscular Hemoglobin 29.6 PG (27.0-31.0) Mean Corpuscular Hemoglobin Concent 29.4 G/DL (32.0-36.0) Red Cell Distribution Width 15.2 % (11.6-14.8) Platelet Count 181 K/UL (150-450) Mean Platelet Volume 7.5 FL (6.5-10.1) Neutrophils (%) (Auto) 49.7 % (45.0-75.0) Lymphocytes (%) (Auto) 33.3 % (20.0-45.0) Monocytes (%) (Auto) 8.2 % (1.0-10.0) Eosinophils (%) (Auto) 8.2 % (0.0-3.0) Basophils (%) (Auto) 0.7 % (0.0-2.0) Lactic Acid Level 0.80 mmol/L (0.4-2.0) Rhythm Strip Diag. Results EP Interpretation: yes Rate: 80 Rhythm: NSR, no PVC's, no ectopy, other - Significant artifact Chest X-Ray Diagnostic Results Chest X-Ray Diagnostic Results : Chest X-Ray Ordered: Yes # of Views/Limited/Complete: 1 View Indication: Shortness of Breath EP Interpretation: Yes Interpretation: no consolidation, no effusion, other - et tube mildly high will advance placed Impression: Other - ET tube high, will advace 1 cm COPD Electronically Signed by: Oskar Ferrer DO Status: improved Disposition: ADMITTED INPATIENT Condition: Critical Oskar Ferrer DO Jan 26, 2019 05:57
[2019-01-26 05:59] LABS: BASOPHILS % (AUTO) 0.7 % (0.0-2.0); EOSINOPHILS % (AUTO) 8.2 % (0.0-3.0); HEMOGLOBIN 13.5 G/DL (14.2-18.0); LYMPHOCYTES % (AUTO) 33.3 % (20.0-45.0); MEAN CORPUSCULAR VOLUME 101 FL (80-99); MONOCYTES % (AUTO) 8.2 % (1.0-10.0); NEUTROPHILS % (AUTO) 49.7 % (45.0-75.0); PLATELET COUNT 181 K/UL (150-450); RED BLOOD COUNT 4.57 M/UL (4.70-6.10); RED CELL DISTRIBUTION WIDTH 15.2 % (11.6-14.8); WHITE BLOOD COUNT 9.6 K/UL (4.8-10.8)
--- NOTE | 2019-01-26 06:10 | NUR ---
ED Nurse Note: PATIENT BIBA FROM HOME WITH SOB FOR 40 MINUTES. HISTORY OF COPD AND CHF. Pt is AO x 1 time, O2 sat 95% on non rebreather mask 15L oxygen. ERMD seen Pt at bedside.
--- NOTE | 2019-01-26 06:15 | NUR ---
ED Nurse Note: ERMD incubate Pt, Etomidate 12mg IVP.
--- NOTE | 2019-01-26 06:20 | NUR ---
ED Nurse Note: Propofol 100mg IVP.
--- NOTE | 2019-01-26 06:20 | NUR ---
ED Nurse Note: Anectine 100 mg IVP.
[2019-01-26] MEDS ORDERED: Propofol 200mg/20ml IV ONE ×2 (06:23→06:45)
[2019-01-26 06:28] LABS: ALANINE AMINOTRANSFERASE 23 U/L (12-78); ALBUMIN 3.9 G/DL (3.4-5.0); ALKALINE PHOSPHATASE 70 U/L (46-116); ASPARTATE AMINO TRANSFERASE 18 U/L (15-37); BILIRUBIN,TOTAL 0.4 MG/DL (0.2-1.0); BLOOD UREA NITROGEN 15 mg/dL (7-18); CHLORIDE 102 MMOL/L (98-107); CKMB 3.9 NG/ML (0.0-3.6); CREATINE KINASE 131 U/L (26-308); CREATININE 0.7 MG/DL (0.55-1.30); POTASSIUM 4.4 MMOL/L (3.5-5.1); SODIUM 142 MMOL/L (136-145)
[2019-01-26 06:30] LABS: ANION GAP 0 mmol/L (5-15); CARBON DIOXIDE 43 MMOL/L (21-32)
--- NOTE | 2019-01-26 06:30 | NUR ---
ED Nurse Note: Blood sample sent to lab.
--- NOTE | 2019-01-26 06:40 | NUR ---
ED Nurse Note: Pt start awakeing and restless. Pt fighting and trying to pull the tube. Propofol 100 mg IVP via ERMD.
--- NOTE | 2019-01-26 06:50 | NUR ---
ED Nurse Note: Urine sample sent to lab.
--- NOTE | 2019-01-26 06:55 | NUR ---
ED Nurse Note: Start IV Propofol 5mcg via ERMD order.
--- NOTE | 2019-01-26 07:03 | NUR ---
ED Nurse Note: Pt SBP drop to 54, report to ERMD.
--- NOTE | 2019-01-26 07:10 | NUR ---
ED Nurse Note: Atropine .5mg IVP via ERMD order.
--- NOTE | 2019-01-26 07:14 | NUR ---
ED Nurse Note: Epinephrine 1 mg IVP.
--- NOTE | 2019-01-26 07:17 | NUR ---
ED Nurse Note: Epinephrine 1 mg IVP.
--- NOTE | 2019-01-26 07:18 | Diagnostic Imaging Report ---
EXAM: XR Chest, 1 View. CLINICAL HISTORY: SOB TECHNIQUE: Frontal view of the chest. COMPARISON: 11/29/18 FINDINGS: Lungs: The lungs are mildly hyperinflated, likely due to COPD, with flattening of the hemidiaphragms and expanded intercostal spaces. No evidence of airspace consolidation. No acute interstitial abnormality. Pleural spaces: Unremarkable. No pneumothorax. Heart: Unremarkable. No cardiomegaly. Mediastinum: No mediastinal widening or shift. Endotracheal tube in place with tip approximately 5.5 cm above the dimitry. Bones: Unremarkable. No acute fracture. IMPRESSION: Endotracheal tube tip approximately 5.5 cm above the dimitry. Hyperinflated lungs likely due to COPD.
--- NOTE | 2019-01-26 07:20 | NUR ---
ED Nurse Note: Start CPR.
--- NOTE | 2019-01-26 07:23 | NUR ---
ED Nurse Note: Epinephrine 1 mg IVP.
--- NOTE | 2019-01-26 07:24 | NUR ---
ED Nurse Note: De Fib shock Pt.
--- NOTE | 2019-01-26 07:26 | NUR ---
ED Nurse Note: Amiodarone 150mg IVP via ERMD order.
--- NOTE | 2019-01-26 07:27 | NUR ---
ED Nurse Note: CPR stop, Pt BP 121/58,HR 134
--- NOTE | 2019-01-26 07:45 | NUR ---
HAND-OFF: Report given to Juan Jose ROYAL.
--- NOTE | 2019-01-26 07:50 | NUR ---
ED Nurse Note: REPORT RECEIVED FROM GENNY DURON. PT INTUBATED WITH CENTRAL LINE TO RIGHT INTERNAL JUGULAR, 2OG IV TO LEFT WRIST AND 20G IV TO RIGHT AC. VENT SETTINGS: AC 18 TV 550 PEEP 0 FiO2 60%.
--- NOTE | 2019-01-26 07:57 | NUR ---
ED Nurse Note: PHARMACY CALLED FOR AMIODARONE DRIP. PER CORBIN, IT IS GOING TO TAKE 20 MINUTES. PHARMACY WILL CALL WHEN AMIODARONE DRIP IS READY.
[2019-01-26] MEDS ORDERED: Atropine Sulfate 0.4mg/ml inj 20ML IVP ONE (08:00)
[2019-01-26] MEDS ORDERED: Atropine Sulfate 0.4mg/ml inj IVP ONE (08:00)
[2019-01-26] MEDS ORDERED: Amiodarone 900 MG in D5W 500ml 482 ML IV ONE (08:00)
--- NOTE | 2019-01-26 08:03 | Emergency Room Report ---
History of Present Illness General Chief Complaint: Dyspnea/Respdistress Source: Patient, EMS Present Illness Allergies: Coded Allergies: No Known Allergies (Unverified , 06/05/18) Nursing Documentation-H Hx Cardiac Problems: Yes - CHF Hx Hypertension: Yes Hx Asthma: Yes Hx COPD: Yes Hx Diabetes: Yes Hx Cancer: No Hx Gastrointestinal Problems: No Hx Neurological Problems: No Physical Exam Vital Signs Date Time Temp Pulse Resp B/P (MAP) Pulse Ox O2 Delivery O2 Flow Rate FiO2 01/26/19 05:37 95.4 85 20 167/92 (117) 100 Simple Mask 10.0 01/26/19 06:30 60 Procedures Critical Care Time Critical Care Time Total critical care time: Approximately 31 minutes Due to a high probability of clinically significant, life threatening deterioration, the patient required the highest level of preparedness to intervene emergently and I personally spent this critical care time directly and personally managing the patient. This critical care time included obtaining a history, examining the patient, pulse oximetry, ordering and reviewing studies , ordering treatments, evaluating response to treatment and updating management plan as needed, frequent reassessment and discussion with other providers as well as arranging for ultimate disposition. This critical to care time was performed to assess and manage the high probability of life-threatening deterioration that could result in multiorgan failure. This critical care time is separate from the separately billable procedures and treating other patients. Cardioversion Cardioversion: Consent: Emergent Indication: Other - Ventricular fibrillation, code Type: Desynchonis - 150J Response: Sinus Attempts: One Patient Tolerated: Well Complications: None Central Line Central Line : Consent: Emergent Central Line Lumen: triple Maximal Sterile Barrier Tech: yes cap, yes mask, yes sterile gown, yes sterile gloves, yes large sterile sheet, yes hand hygiene, yes chlorhexidine prep No Max Barrier Tech Because: emergency insertion Central Line Postion: internal jugular (R) Complications: none Central Line Post Position: sutured, good blood return, position confirmed w / CXR Attempts: One Patient Tolerated: Well Complications: None Medical Decision Making Diagnostic Impression: Primary Impression: Dyspnea Additional Impressions: Respiratory distress VF (ventricular fibrillation) Cardiac arrest ER Course Assumed care of patient 6:30 AM. Patient had been previously intubated for COPD exacerbation and tolerating ventilator well. Alerted by nursing staff approximately 7:15 AM that the patient's heart rate was dropping and was hypotensive. On arrival in the room his systolic blood pressures were in the 40s and heart rate was in the mid 40s. He had a palpable carotid pulse. Patient was given 0.5 mg IV atropine with no significant improvement. Shortly thereafter, heart rate dropped to 20s and patient had no palpable pulse. Compressions were started. Monitor showed ventricular fibrillation prior to starting compressions. Defibrillation pads were placed on the patient. At the 2-minute pulse check VF was again seen on monitor and confirmed with EKG. One, 150 J shock was delivered and compressions were resumed. The patient received 2 rounds of CPR and 2 mg epinephrine as well as amiodarone and started on amiodarone drip. At the second pulse check the patient had bounding pulses in the carotids with significant improvement in his heart rate. EKG showed atrial fibrillation with ventricular arrhythmia and ectopy. A right internal jugular central line was placed. Chest x-ray to confirm placement is pending. He remains admitted to the intensive care unit. Heart rate is stabilizing now showing sinus rhythm with first-degree AV block and no significant ST segment changes. Will alert his admitting physician and mulcher operator. Admit to ICU in serious condition. EKG Diagnostic Results EKG Time: 07:35 Rate: normal Rhythm: NSR Other Impression Sinus rhythm with first-degree AV block. AR interval 240 ms. Rhythm Strip Diag. Results Rhythm Strip Time: 07:35 EP Interpretation: yes Rate: 90s Rhythm: NSR Chest X-Ray Diagnostic Results Chest X-Ray Diagnostic Results : # of Views/Limited/Complete: 1 View Indication: Other - Central line check EP Interpretation: Yes PA Xray: Interpretation reviewed Electronically Signed by: Electronically signed by Dr. Jimmie Guzmán Reevaluation Time: 08:30 Last Vital Signs Date Time Temp Pulse Resp B/P (MAP) Pulse Ox O2 Delivery O2 Flow Rate FiO2 01/26/19 07:06 89 18 99 Mechanical Ventilator 60 01/26/19 06:58 10.0 01/26/19 05:37 95.4 167/92 (117) Reevaluation Impression Alerted by nursing staff that the patient was again bradycardic. There was a palpable pulse but again atropine did not significantly improve his heart rate. His end-tidal CO2 was dropping from the mid 30s into the teens. A code was again called and compressions were started. Patient was in PEA arrest at this time according to heart monitor. He was given 3 mg of epinephrine and total at 1 amp of bicarb. Amiodarone was running. Patient had return of spontaneous circulation. Discussed with his son who is present his grave medical condition and stated that he wanted to remain full code however if there is no significant improvement in the patient's condition or he had a prognosis requiring to have long-term mechanical ventilation he would consider DNR/DNI however at this time the patient remains full code. Patient will be admitted to the intensive care unit in serious condition Disposition: ADMITTED INPATIENT Condition: Critical Referrals: NOT CHOSEN IPA/,REFERRING (PCP) Jimmie Guzmán MD Jan 26, 2019 08:03
[2019-01-26] MEDS ORDERED: Amiodarone 150mg/3ml Amp IVP ONE (08:15)
[2019-01-26] MEDS ORDERED: Succinylcholine 20mg/ml 10ml vial IV ONE (08:15)
[2019-01-26] MEDS ORDERED: Etomidate 40mg/20ml Inj IV ONE ×2 (08:15→14:34)
--- NOTE | 2019-01-26 08:17 | NUR ---
ED Nurse Note: PT CODED AT 0817. REFER TO CODE BLUE FORM.
--- NOTE | 2019-01-26 08:41 | Diagnostic Imaging Report ---
PORTABLE AP UPRIGHT CXR: HISTORY: 73-year-old male status post line placement. COMPARISON: Portable CXR earlier same date and 11/29/2018. FINDINGS: Image is limited by external artifacts. Allowing for this, a new right internal jugular central venous catheter is in place, terminating in the region of the mid SVC. Endotracheal tube terminates approximately 7 cm above the dimitry, as before. No obvious pneumothorax. Lungs are hyperlucent, especially in the bases, and lung volumes are large, consistent with emphysema, as before. No obvious significant effusion. Heart size is normal and stable. IMPRESSION: New right internal jugular central venous catheter terminates in the region of the mid SVC; no obvious pneumothorax.
[2019-01-26] MEDS ORDERED: Sodium Bicarbonate 50ml Carp IV ONE (09:00)
--- NOTE | 2019-01-26 09:07 | NUR ---
NURSE NOTES: RECEIVED PATIENT FROM ER VIA GURNEY. REPORT GIVEN BY Manav COLLADO RN. PATIENT IS SEEN LYING IN BED, UNRESPONSIVE. 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 ORALLY INTUBATED ETT 8.0 AT 23CM LIP LINE WITH VENT SETTINGS AC 18, TV 550, FiO2 AT 30%, PEEP 0. IV ON THE R AC G20, SL. CENTRAL LINE ON R IJ TLC WITH AMIODARONE RUNNING AT 1MCG/MG. NOTED BP AT 42/21. ORIENTED TO ROOM. THOROUGH SKIN ASSESSMENT DONE. HEALTH TEACHINGS DONE. CALL LIGHT WITHIN REACH. BED AT LOWEST POSITION. SIDE RAILS UP. WILL CONTINUE TO MONITOR.
--- NOTE | 2019-01-26 09:11 | NUR ---
ED Nurse Note: PT BROUGHT UP TO ICU VIA GURNEY ON DIRECTOR ALUMNI RELATIONS RUNNING AMIODARONE DRIP WITH ALL BELONGINGS ACCOMPANIED BY PRIMARY RN, TRAE, RN, AND RESPIRATORY THERAPIST. VSS.
[2019-01-26] MEDS ORDERED: Levophed 4mg/4mL Inj IV ONE ×2 (09:23→18:39)
[2019-01-26] MEDS ORDERED: UNOBMED (09:23)
[2019-01-26] MEDS ORDERED: Ketorolac 30mg Inj IV PRN (10:15)
[2019-01-26] MEDS ORDERED: D5NS 1,000 ML IV SCH (10:15)
[2019-01-26] MEDS ORDERED: LORazepam Inj 2mg/ml 1ml IV PRN ×2 (10:30→15:36)
[2019-01-26] MEDS ORDERED: Solu-MEDROL 125mg Inj IVP SCH (10:30)
[2019-01-26] MEDS: Albuterol/Ipratropium 3ml neb HHN SCH ×4 (10:36→23:52)
--- NOTE | 2019-01-26 11:21 | NUR ---
RADIOLOGY DEPT., 07:54 HRS, CHEST X-RAY DONE BY KIMBERLY MA
[2019-01-26] MEDS: Pantoprazole Inj IVP SCH (11:29)
[2019-01-26] MEDS: Heparin 5000 units/ml inj SUBQ SCH ×2 (11:32→21:07)
[2019-01-26] MEDS: NovoLOG Insulin Flexpen SUBQ SCH ×2 (11:38→17:36)
--- NOTE | 2019-01-26 11:59 | Pulmonolgy Critical Care Note ---
Critical Care - Asmt/Plan Assessment/Plan: Pulmonary Critical Care Consultation HPI Patient is a 73 year olf man with previous history of COPD, CHF, HTN, DM admitted with extreme respiratory distress, intubated in the ED, subsequent Cardiac Arrest. Noted to have hypercapneic respiratory failure Allergies: No Known Allergies Past Medical History: COPD/Asthma, CHF, Hypertension, DM All Other Systems: limited Physical Exam Vital signs noted General Appearance: sedated on ventilator Head: normocephalic, atraumatic Eyes: bilateral eye PERRL, bilateral eye EOMI ENT: moist mm, no LN Neck: supple Respiratory: generally reduced BS, occasional wheeze Cardiovascular: tachycardia, HS1, HS2, RRR Gastrointestinal: non tender, soft Musculoskeletal: normal inspection Neurologic: sedated on ventilator Skin: no rash, palpation normal Impression: COPD exacerbation Hypercapneic respiratory failure S/p cardiac arrest in the ED CHF HTN Diabetes Plan AC ventilator setting adjusted P5 Adjust FIO2 for sats 90-94% HHN Q4 IV Solumedrol Monitor labs PPX IV Doxycycline DNR status Labs Test 01/26/19 05:45 White Blood Count 9.6 K/UL (4.8-10.8) Red Blood Count 4.57 M/UL (4.70-6.10) Hemoglobin 13.5 G/DL (14.2-18.0) Hematocrit 46.0 % (42.0-52.0) Mean Corpuscular Volume 101 FL (80-99) Mean Corpuscular Hemoglobin 29.6 PG (27.0-31.0) Mean Corpuscular Hemoglobin Concent 29.4 G/DL (32.0-36.0) Red Cell Distribution Width 15.2 % (11.6-14.8) Platelet Count 181 K/UL (150-450) Mean Platelet Volume 7.5 FL (6.5-10.1) Neutrophils (%) (Auto) 49.7 % (45.0-75.0) Lymphocytes (%) (Auto) 33.3 % (20.0-45.0) Monocytes (%) (Auto) 8.2 % (1.0-10.0) Eosinophils (%) (Auto) 8.2 % (0.0-3.0) Basophils (%) (Auto) 0.7 % (0.0-2.0) Lactic Acid Level 0.80 mmol/L (0.4-2.0) Chest X-Ray: No consolidation, no effusion, ETT tube 7cm, RIJ line good position Critical Care - Objective Last 24 Hour Vital Signs Date Time Temp Pulse Resp B/P (MAP) Pulse Ox O2 Delivery O2 Flow Rate FiO2 01/26/19 10:46 99 22 100 Mechanical Ventilator 30 01/26/19 10:38 116 22 30 01/26/19 10:37 104 22 99 Mechanical Ventilator 30 01/26/19 09:25 84 15 84/54 100 Mechanical Ventilator 60 01/26/19 09:10 42/21 01/26/19 09:07 Mechanical Ventilator 01/26/19 08:47 71 18 60 01/26/19 07:53 18 167/92 Mechanical Ventilator 10.0 60 01/26/19 07:27 96.0 134 28 121/58 95 Simple Mask 10.0 01/26/19 07:26 96.0 150 32 89/52 90 Simple Mask 10.0 01/26/19 07:23 96.0 160 41 60/48 89 Simple Mask 10.0 01/26/19 07:20 96.0 163 36 56/46 91 Simple Mask 10.0 01/26/19 07:17 96.0 152 44 44/22 96 Simple Mask 10.0 01/26/19 07:14 96.0 139 42 52/47 96 Simple Mask 10.0 01/26/19 07:10 96.0 145 40 50/40 96 Simple Mask 10.0 01/26/19 07:06 89 18 99 Mechanical Ventilator 60 01/26/19 07:03 33 54/40 Mechanical Ventilator 10.0 01/26/19 07:03 96.0 136 33 54/40 96 Simple Mask 10.0 01/26/19 06:58 28 Simple Mask 10.0 01/26/19 06:55 28 145/88 Mechanical Ventilator 10.0 01/26/19 06:55 96.0 127 28 157/94 97 Simple Mask 10.0 01/26/19 06:30 87 18 60 01/26/19 06:20 96.0 130 25 145/88 98 Simple Mask 10.0 01/26/19 06:10 124 30 Simple Mask 10.0 01/26/19 06:10 96.0 124 30 158/98 98 Simple Mask 10.0 01/26/19 05:45 105 30 98 10.0 01/26/19 05:45 105 30 99 10.0 01/26/19 05:37 95.4 85 20 167/92 (117) 100 Simple Mask 10.0 Micro: Microbiology Date/Time Source Procedure Growth Status 01/26/19 07:00 Rectum Received Accucheck: 171 Critical Care - Subjective ROS Limited/Unobtainable: No FI02: 30 Vent Support Breath Rate: 22 Vent Support Mode: AC Vent Tidal Volume: 550 Sputum Amount: Scant PEEP: 5.0 PIP: 36 I&O: Intake and Output 01/25/19 01/26/19 18:59 06:59 # Voids 1 ET-Tube: 8.0 ET Position: 23 Johny White MD Jan 26, 2019 11:59
--- NOTE | 2019-01-26 13:01 | History & Physical ---
History and Physical History & Physicial Dictation completed. *[id number] Brianne Henry MD Jan 26, 2019 13:01
--- NOTE | 2019-01-26 13:16 | NUR ---
NURSE NOTES: INFORMED DR PEÑA ON ABG RESULT, ORDERED TO INCREASE AC TO 26. RT INFORMED. WILL CONTINUE TO MONITOR.
--- NOTE | 2019-01-26 13:20 | Diagnostic Imaging Report ---
EXAM: XR Chest, 1 View CLINICAL HISTORY: F/U TECHNIQUE: Frontal view of the chest. COMPARISON: No relevant prior studies available. FINDINGS: Lungs: Pulmonary hyperinflation/emphysema. Accentuation of interstitial markings. Pleural space: Blunting of costophrenic angles. No pneumothorax. Heart: Unremarkable. No cardiomegaly. Mediastinum: Unremarkable. Bones/joints: No acute fracture. Old rib fractures Soft tissues: Maddi skin fold projecting over the right hemithorax. Tubes, lines and devices: Right IJ central line in the SVC. Endotracheal tube is approximately 6 cm above the dimitry. Enteric tube by directed below the diaphragm. Percutaneous pacer. IMPRESSION: Pulmonary hyperinflation/emphysema. Accentuation of interstitial markings.
--- NOTE | 2019-01-26 13:21 | Diagnostic Imaging Report ---
EXAM: XR Abdomen, 1 View CLINICAL HISTORY: TUBE PLCMT TECHNIQUE: Frontal supine view of the abdomen/pelvis. COMPARISON: No relevant prior studies available. FINDINGS: Lower thorax: Pulmonary emphysema. Gastrointestinal tract: Paucity of small bowel gas. Bones/joints: No acute fracture. Tubes, lines and devices: Enteric tube in the stomach. IMPRESSION: Enteric tube in the stomach.
[2019-01-26] MEDS: Doxycycline Hyclate 100 MG in D5W 110 ML IV SCH ×2 (13:42→21:06)
[2019-01-26] MEDS: Solu-MEDROL 125mg Inj IVP SCH ×2 (13:45→21:06)
[2019-01-26] MEDS: D5NS 1,000 ML IV SCH (14:15)
--- NOTE | 2019-01-26 14:20 | Infectious Diseases Prog Note ---
Assessment/Plan Problems: (1) Acute exacerbation of chronic obstructive pulmonary disease (COPD) Assessment & Plan: continue doxycycline and nebulizer treatment as per pulmonary (2) Cardiac arrest Assessment & Plan: etiology ? recommend cardiology eval to rule out cardiac sources and neurology eval to evaluate his brain condition and to rule out anoxic brain injury (3) Chronic hypercapnic respiratory failure Assessment & Plan: S/P cardiac arrest , S/P intubation, monitor in ICU, pulmonary is following Subjective Allergies: Coded Allergies: No Known Allergies (Unverified , 06/05/18) Objective Vital Signs Last 24 Hour Vital Signs Date Time Temp Pulse Resp B/P (MAP) Pulse Ox O2 Delivery O2 Flow Rate FiO2 01/26/19 13:17 30 01/26/19 13:03 110 22 30 01/26/19 12:00 Mechanical Ventilator 30.0 01/26/19 12:00 112 01/26/19 12:00 30 01/26/19 10:46 99 22 100 Mechanical Ventilator 30 01/26/19 10:38 116 22 30 01/26/19 10:37 104 22 99 Mechanical Ventilator 30 01/26/19 09:25 84 15 84/54 100 Mechanical Ventilator 60 01/26/19 09:10 42/21 01/26/19 09:07 Mechanical Ventilator 30.0 01/26/19 09:07 30 01/26/19 09:07 Mechanical Ventilator 01/26/19 08:47 71 18 60 01/26/19 07:53 18 167/92 Mechanical Ventilator 10.0 60 01/26/19 07:27 96.0 134 28 121/58 95 Simple Mask 10.0 01/26/19 07:26 96.0 150 32 89/52 90 Simple Mask 10.0 01/26/19 07:23 96.0 160 41 60/48 89 Simple Mask 10.0 01/26/19 07:20 96.0 163 36 56/46 91 Simple Mask 10.0 01/26/19 07:17 96.0 152 44 44/22 96 Simple Mask 10.0 01/26/19 07:14 96.0 139 42 52/47 96 Simple Mask 10.0 01/26/19 07:10 96.0 145 40 50/40 96 Simple Mask 10.0 01/26/19 07:06 89 18 99 Mechanical Ventilator 60 01/26/19 07:03 33 54/40 Mechanical Ventilator 10.0 8/10/19 07:03 96.0 136 33 54/40 96 Simple Mask 10.0 01/26/19 06:58 28 Simple Mask 10.0 01/26/19 06:55 28 145/88 Mechanical Ventilator 10.0 01/26/19 06:55 96.0 127 28 157/94 97 Simple Mask 10.0 01/26/19 06:30 87 18 60 01/26/19 06:20 96.0 130 25 145/88 98 Simple Mask 10.0 01/26/19 06:10 124 30 Simple Mask 10.0 01/26/19 06:10 96.0 124 30 158/98 98 Simple Mask 10.0 01/26/19 05:45 105 30 98 10.0 01/26/19 05:45 105 30 99 10.0 01/26/19 05:37 95.4 85 20 167/92 (117) 100 Simple Mask 10.0 Height (Feet): 5 Height (Inches): 10.00 Weight (Pounds): 132 Microbiology Date/Time Source Procedure Growth Status 01/26/19 07:00 Rectum Received Laboratory Tests Test 01/26/19 05:42 01/26/19 05:45 01/26/19 09:19 01/26/19 12:45 Arterial Blood pH 7.026 (7.350-7.450) 7.201 (7.350-7.450) 7.220 (7.350-7.450) Arterial Blood Partial Pressure CO2 > 160.4 mmHg (35.0-45.0) *H 52.9 mmHg (35.0-45.0) H 49.8 mmHg (35.0-45.0) H Arterial Blood Partial Pressure O2 281.2 mmHg (75.0-100.0) H 309.9 mmHg (75.0-100.0) H 91.2 mmHg (75.0-100.0) Arterial Blood HCO3 Pending 20.3 mmol/L (22.0-26.0) L 19.9 mmol/L (22.0-26.0) L Arterial Blood Oxygen Saturation 98.4 % (95-100) 99.3 % (95-100) 95.7 % (95-100) Arterial Blood Base Excess Pending -7.9 (-2-2) L -7.8 (-2-2) L Delon Test Positive Positive Positive White Blood Count 9.6 K/UL (4.8-10.8) Red Blood Count 4.57 M/UL (4.70-6.10) L Hemoglobin 13.5 G/DL (14.2-18.0) L Hematocrit 46.0 % (42.0-52.0) Mean Corpuscular Volume 101 FL (80-99) H Mean Corpuscular Hemoglobin 29.6 PG (27.0-31.0) Mean Corpuscular Hemoglobin Concent 29.4 G/DL (32.0-36.0) L Red Cell Distribution Width 15.2 % (11.6-14.8) H Platelet Count 181 K/UL (150-450) Mean Platelet Volume 7.5 FL (6.5-10.1) Neutrophils (%) (Auto) 49.7 % (45.0-75.0) Lymphocytes (%) (Auto) 33.3 % (20.0-45.0) Monocytes (%) (Auto) 8.2 % (1.0-10.0) Eosinophils (%) (Auto) 8.2 % (0.0-3.0) H Basophils (%) (Auto) 0.7 % (0.0-2.0) Sodium Level 142 MMOL/L (136-145) Potassium Level 4.4 MMOL/L (3.5-5.1) Chloride Level 102 MMOL/L (98-107) Carbon Dioxide Level 43 MMOL/L (21-32) *H Anion Gap 0 mmol/L (5-15) L Blood Urea Nitrogen 15 mg/dL (7-18) Creatinine 0.7 MG/DL (0.55-1.30) Estimat Glomerular Filtration Rate mL/min (>60) Glucose Level 107 MG/DL (74-106) H Lactic Acid Level 0.80 mmol/L (0.4-2.0) Calcium Level 9.0 MG/DL (8.5-10.1) Total Bilirubin 0.4 MG/DL (0.2-1.0) Aspartate Amino Transf (AST/SGOT) 18 U/L (15-37) Alanine Aminotransferase (ALT/SGPT) 23 U/L (12-78) Alkaline Phosphatase 70 U/L (46-116) Total Creatine Kinase 131 U/L (26-308) Creatine Kinase MB 3.9 NG/ML (0.0-3.6) H Creatine Kinase MB Relative Index 2.9 Troponin I 0.009 ng/mL (0.000-0.056) Total Protein 7.8 G/DL (6.4-8.2) Albumin 3.9 G/DL (3.4-5.0) Globulin 3.9 g/dL Albumin/Globulin Ratio 1.0 (1.0-2.7) Triglycerides Level 55 MG/DL (30-150) Lipase 247 U/L (73-393) Test 01/26/19 13:55 Troponin I Pending Current Medications Medications (Trade) Dose Ordered Sig/Brittani Route PRN Reason Start Time Stop Time Status Last Admin Dose Admin Acetaminophen (Tylenol) 650 mg Q4H PRN NG FOR MILD PAIN 01/26/19 10:15 02/25/19 10:14 Albuterol/ Ipratropium (Albuterol/ Ipratropium) 3 ml Q4HRT HHN 01/26/19 11:00 01/31/19 10:59 01/26/19 10:36 Dextrose (Dextrose 50%) 25 ml Q30M PRN IV Hypoglycemia 01/26/19 10:30 02/25/19 10:29 Dextrose (Dextrose 50%) 50 ml Q30M PRN IV Hypoglycemia 01/26/19 10:30 02/25/19 10:29 Dextrose/Sodium Chloride 1,000 ml @ 100 mls/hr Q10H IV 01/26/19 14:15 02/25/19 14:14 Doxycycline Hyclate 100 mg/ Dextrose 110 ml @ 110 mls/hr Q12HR IV 01/26/19 11:00 02/02/19 10:59 01/26/19 13:42 Fentanyl Citrate 1000 mcg/Sodium Chloride 100 ml @ 0 mls/hr Q24H IV 01/26/19 10:27 02/02/19 10:26 Heparin Sodium (Porcine) (Heparin 5000 units/ml) 5,000 units EVERY 12 HOURS SUBQ 01/26/19 11:00 02/25/19 10:59 01/26/19 11:32 Insulin Aspart (NovoLOG) Q6HR SUBQ 01/26/19 12:00 02/25/19 11:59 Ketorolac Tromethamine (Toradol 30mg) 30 mg BIDPRN PRN IV FOR MODERATE PAIN 01/26/19 10:15 01/31/19 10:14 Lorazepam (Ativan 2mg/ml 1ml) 0.5 mg Q4H PRN IV AGITATION 01/26/19 10:30 02/02/19 10:29 Methylprednisolone Sodium Succinate (Solu-MEDROL) 60 mg EVERY 8 HOURS IVP 01/26/19 14:00 02/25/19 13:59 01/26/19 13:45 Morphine Sulfate (Morphine Sulfate) 2 mg Q8H PRN IVP FOR SEVERE PAIN 01/26/19 10:15 02/02/19 10:14 Norepinephrine Bitartrate 4 mg/ Dextrose 250 ml @ 0 mls/hr Q24H IV 01/26/19 14:15 02/25/19 14:14 Pantoprazole (Protonix) 40 mg DAILY IVP 01/26/19 11:00 02/25/19 10:59 01/26/19 11:29 Propofol 100 ml @ 0 mls/hr Q24H IV 01/26/19 06:45 01/28/19 06:44 01/26/19 07:53 Sodium Chloride 250 ml @ 125 mls/hr ONCE ONCE IVPB 01/26/19 14:15 01/26/19 16:14 Sodium Chloride 500 ml @ 998.89 mls/ hr Q4H PRN IVPB MAP<60 01/26/19 10:15 02/25/19 10:14 Frnace Orlando M.D. Jan 26, 2019 14:20
[2019-01-26] MEDS ORDERED: Amiodarone 150mg/3ml Amp ONE (14:31)
[2019-01-26] MEDS ORDERED: Sodium Bicarbonate 8.4% 50ml Inj ONE (14:31)
[2019-01-26] MEDS ORDERED: Atropine Inj 1mg/10ml Syr ONE (14:31)
[2019-01-26] MEDS ORDERED: Succinylcholine 20mg/ml 10ml vial ONE (14:34)
--- NOTE | 2019-01-26 14:37 | NUR ---
RESPIRATORY NOTE: pt orally intubated in ER. vent settings per MD AC 18 550 60% +0. ETT size 8.0, place 22cm at the lip. secured ett by anchor fast. no prior redness or skin tears visible. pt coded twice in ER. successful resuscitation and pt became stabilized. transferred pt to ICU with vent plugged into the red outlet. post ABG results relayed to MD and vent settings changed accordingly. later advanced ETT twice, which currently now is placed 25cm at the lip. patient in no respiratory distress at this time. will cont to monitor
[2019-01-26] MEDS ORDERED: Amiodarone 900 MG in D5W 500ml 482 ML IV SCH (15:00)
--- NOTE | 2019-01-26 15:29 | NUR ---
NURSE NOTES: SPOKE WITH DR PEÑA ORDERED FO CT SCAN NON CONTRAST. PT NOTED TO HAVE EPISODES OF SEIZURE. WILL CONTINUE TO MONITOR.
--- NOTE | 2019-01-26 16:09 | NUR ---
NURSE NOTES: NOTED ANOTHER SEIZURE ACTIVITY DUE IV MEDS GIVEN. WILL CONTINUE TO MONITOR.
--- NOTE | 2019-01-26 17:11 | NUR ---
NURSE NOTES: Received report from GENNY Meyers. Patient is unresponsive. ETT 8/23cm at lip line. Vent setting AC 26, TV 550, Peep 5 and FiO2 30%. Afib 110s on the monitor. NG tube intact. Right IJ TLC intact and running with Amio 0.5mg/min, levo 8mg/min and D5NS 100ml/hr. Saenz intact and draining merced color urine. Elevated HOB>30. Will continue plan of care.
--- NOTE | 2019-01-26 17:18 | NUR ---
HAND-OFF: Report given to Alfredo Ward RN.
--- NOTE | 2019-01-26 17:24 | NUR ---
NURSE NOTES: PATIENT TURNED AND REPOSITIONED. SUCTIONED SECRETION. NGT PLACEMENT IN. WILL CONTINUE TO MONITOR.
--- NOTE | 2019-01-26 18:00 | Consultation ---
DATE OF CONSULTATION: 01/26/2019 CARDIOLOGY CONSULTATION CONSULTING PHYSICIAN: Johny Jimenez M.D. REQUESTING PHYSICIAN: Brianne Henry M.D. REASON FOR CONSULTATION: Cardiac arrest. HISTORY OF PRESENT ILLNESS: This 73-year-old male presented to the emergency room yesterday with shortness of breath. He has a known history of COPD as well as a history of hypertension with congestive heart failure. He was placed on a non-rebreather mask. He required intubation and mechanical ventilation. He had two Code Blue arrests in the emergency room following intubation and the rhythms were reviewed. He had V-tach on one occasion and asystole as well. The patient was defibrillated for V-tach and apparently responded on the first Code Blue. On the second Code Blue, bradyarrhythmia was noted and he was given atropine. Subsequently, he became asystolic. The patient was ultimately resuscitated and admitted to the intensive care unit. Since the Code Blue, the patient has remained orally intubated, mechanically ventilated. He is unresponsive. His pupils are fixed and dilated. He remains hypotensive and on pressor support. PAST MEDICAL HISTORY: Hypertension, COPD, type 2 diabetes mellitus, and history of congestive heart failure. ALLERGIES: None known. MEDICATIONS: Reviewed and reconciled. SOCIAL HISTORY: Greater than 30-[id number] smoker. Social alcohol. REVIEW OF SYSTEMS: Otherwise not obtainable. PHYSICAL EXAMINATION: HEENT: Pupils fixed and dilated. Orally intubated. LUNGS: Bilateral breath sounds. Few rhonchi. No wheezing. CARDIAC: Regular rhythm and rate. Normal S1 and S2. ABDOMEN: Soft. EXTREMITIES: No edema. Capillary refill is diminished. There is a central line in place in the right internal jugular vein. DIAGNOSTIC AND LABORATORY DATA: Chest x-ray reveals hyperinflation and patchy infiltrates. EKG on admission revealed low voltage, atrial fibrillation, nonspecific ST-T wave changes. Subsequent EKG with sinus rhythm with intraventricular conduction delay. Labs, initial blood gas revealed pH 7.02, pCO2 over 160. Subsequent ABG, pH 7.20, pCO2 of 52. Chemistry panel, sodium 142, potassium 4.4, bicarb 43, BUN 15, creatinine 0.7, glucose 107. White count 9.6 and hemoglobin 13.5. IMPRESSION: 1. Anoxic encephalopathy. 2. COPD exacerbation. 3. Status post cardiopulmonary arrest. 4. Aspiration with probable pneumonia. 5. Shock. PLAN: The patient's condition is critical and prognosis is grave. Family members are considering DNR. In the interim, we will continue on IV fluids, ventilator support, and pressors, which will be tapered as condition permits. Empiric antibiotics, DVT prophylaxis, intravenous steroids, and inhaled bronchodilators have been implemented as well. A troponin level has been requested and followup care from a cardiovascular standpoint will be performed. Johny Jimenez M.D. DR: TAMIKO JOB#: [id number] CC:
--- NOTE | 2019-01-26 18:20 | NUR ---
NURSE NOTES: Bed bath and oral care given.
--- NOTE | 2019-01-26 19:33 | NUR ---
HAND-OFF: Report given to GENNY Charles. Endorsed plan of care.
--- NOTE | 2019-01-26 20:00 | NUR ---
NURSE NOTES: Patient received from Eom RN. Patient currently is mechanically ventilated and is non-responsive. Minor reflexes noted. Ventilator settings are AC 26, 550tv, 30% FiO2 and peep of 5. Currently saturating at 100%, respiration rate is 26, BP is 109/72, Levophed currently running at 7mcg, temperature is 99.1F. Patient has D5NS at 100ml/hr, Levophed at 7mcg, and Amiodarone at 0.5mg/hr fix rate per cardio. R IJ TLC, dressing is intact. NGT right nare at low intermittent suctioning. NPO status. HR is 78 Afib. Family is at bedside. Educated family on plan of care for the night. Reviewed notes, labs and images. Will continue to monitor.
--- NOTE | 2019-01-26 20:04 | NUR ---
RESPIRATORY NOTE: Received pt. on 840 vent. Vent settings are: A/C rate of 26, Vt 520, FI02 30%, PEEP +5. No respiratory distress noted, pt. sP02 @ 100%. Vent plugged on red outlet. Will continue to monitor pt.
--- NOTE | 2019-01-26 20:15 | Consultation ---
DATE OF CONSULTATION: 01/26/2019 INFECTIOUS DISEASE CONSULTATION CONSULTING PHYSICIAN: France Orlando M.D. REFERRING PHYSICIAN: Brianne Henry M.D. REASON FOR CONSULTATION: COPD exacerbation, possible bronchitis, status post cardiac arrest and intubation. Recommendation for antibiotics treatment. HISTORY OF PRESENT ILLNESS: The patient is a 73-year-old male with past medical history of severe COPD and chronic respiratory failure, who is on home oxygen therapy of 2.5 L per day, almost on daily basis, was brought into the emergency room by his son for sudden onset of shortness of breath started around 4:30 a.m. this morning. The patient was having difficulty breathing, did not improve with oxygen and inhalers at home, so he was brought in. The patient had cardiac arrest in ED and he received CPR, was intubated and transferred to the intensive care unit for further evaluation and management. The patient was started on doxycycline empirically by the auger operator, who evaluated the patient, and Infectious Disease consultation was requested for antibiotic guidance and further management. As of note, the patient is intubated and unable to provide any history. History was mainly obtained from the son at the bedside and the medical record. REVIEW OF SYSTEMS: Unable to obtain. The patient is intubated on mechanical ventilation. PAST MEDICAL HISTORY: Significant for CHF, hypertension, asthma, COPD, and diabetes. PAST SURGICAL HISTORY: Not on record. FAMILY HISTORY: Noncontributory. SOCIAL HISTORY: The patient lives at home with son and family. Heavy smoker in the past, quit smoking 7 years ago. No drugs. No alcohol. Unemployed. ALLERGIES: No known drug allergy. MEDICATIONS: Currently, he is on doxycycline and methylprednisolone as per the auger operator. For the rest of his medications, please refer to MAR. PHYSICAL EXAMINATION: VITAL SIGN: Temperature 96, pulse 110, respirations 22, saturation 100% on mechanical ventilation with FiO2 of 30%, and blood pressure 84/54. GENERAL: An elderly male, lying in bed, intubated on mechanical ventilation, not in acute distress. HEENT: Normocephalic and atraumatic. Pupils fixed and dilated, nonresponsive to light. Unable to assess oral mucosa with E-tube in place. NECK: Supple. No lymphadenopathy. CARDIOVASCULAR: He is tachycardic. S1, S2 normal. No murmur can be heard. LUNGS: Diminished breathing sounds at the bases. No wheezing or rhonchi. Normal breathing effort. Mechanically ventilated. ABDOMEN: Soft, nontender, and nondistended. Normal bowel sounds. No hepatosplenomegaly or ascites. No organomegaly. EXTREMITIES: No edema or cyanosis. LABORATORY AND DIAGNOSTIC DATA: Labs showed white count of 9.6, hemoglobin 13.5, and platelet count 181,000. BUN 15, creatinine 0.7. AST 18, ALT 23. IMAGING: Chest x-ray upon arrival showed endotracheal tube approximately 5.5 cm above the dimitry, hyperinflated lung due to COPD with flattening of the hemidiaphragm and expanded intercoastal space. No airspace consolidation. No acute interstitial abnormalities. Repeated chest x-ray, after he was coded, showed pulmonary hyperinflation, emphysema, accentuation of the interstitial markings. ASSESSMENT AND RECOMMENDATION: 1. Acute exacerbation of chronic obstructive pulmonary disease. Continue doxycycline for now and nebulizer treatment and steroids as per Pulmonary. Monitor chest x-ray. 2. Cardiac arrest, etiology unclear. Recommend Cardiology evaluation to rule out cardiac source and neurology evaluation to evaluate his brain condition and to rule out anoxic brain injury after the codes. 3. Chronic hypercapnic respiratory failure, status post cardiac arrest, status post intubation. Monitor in intensive care unit. Pulmonary team is following. Monitor chest x-ray and ABG. Weaning trial as needed. Thank you for the consult. ID will continue to follow. France Orlando M.D. DR: LARISA JOB#: [id number] CC:
--- NOTE | 2019-01-26 21:00 | History and Physical Report ---
DATE OF ADMISSION: 01/26/2019 SOURCE OF INFORMATION: The patient's son. HISTORY OF PRESENT ILLNESS: The patient is a 73-year-old male with unremarkable cardiovascular disease. The patient is suffering from COPD. Source of information is the patient's son. The patient has already been intubated by the time I saw the patient in the emergency room. Also has already been coded one time. I had a meeting with the son at the bedside. Identified about grave prognosis. Reportedly, the patient had felt short of breath at home using the oxygen. ALLERGIES: NKDA. PAST SURGICAL HISTORY: The patient's son denies any major surgeries. ALLERGIES: NKDA. FAMILY HISTORY: Reviewed and noncontributory. PAST MEDICAL HISTORY: Including chronic obstructive pulmonary disease, oxygen dependent. CURRENT HOSPITAL MEDICATIONS: Including sliding scale insulin, propofol. LABORATORY DATA: Labs dated January 26, hemoglobin of 13.5, BUN 15. IMAGING: Chest x-ray dated January 26 is negative for any ___ pneumothorax. ASSESSMENT AND PLAN: 1. Vent dependent respiratory failure. 2. Chronic obstructive pulmonary disease, end-stage, oxygen-dependent. 3. Cardiopulmonary arrest, status post resuscitation x2. 4. Hypertension. 5. Abnormal blood sugar. 6. Anemia. 7. GI and DVT prophylaxis. PLAN OF CARE: I had a detailed conversation with the son at the bedside. I explained the gravity of the prognosis. The family requests a change to DNR. Pulmonary college specialist have been consulted as well as the negative developer. Brianne Henry M.D. DR: FRACISCO JOB#: [id number] CC:
[2019-01-26] MEDS: LORazepam Inj 2mg/ml 1ml IV PRN (21:06)
--- NOTE | 2019-01-26 22:00 | NUR ---
NURSE NOTES: Patient repositioned and given oral care. Pressors titrating down. BP stabilizing. HR is NSR. Response to deep painful stimulus.
[2019-01-27] VITALS (32 sets, daily range): BP systolic 96–138; BP diastolic 50–97
--- NOTE | 2019-01-27 | NUR ---
NURSE NOTES: Repositioned and given oral care. Pressors off. BP is stable. HR is NSR. Responds to painful stimulus. Making more urine output.
[2019-01-27] MEDS: D5NS 1,000 ML IV SCH ×3 (00:43→22:03)
--- NOTE | 2019-01-27 02:00 | NUR ---
NURSE NOTES: Patient repositioned, Vitals remains stable stable. Afebrile. Will continue to monitor.
[2019-01-27] MEDS: Albuterol/Ipratropium 3ml neb HHN SCH ×6 (03:52→22:52)
--- NOTE | 2019-01-27 04:00 | NUR ---
NURSE NOTES: Patient cleaned and repositioned. Vitals continue to remain stable. Patient opens eyes spontaneously and response to pain Does not follow verbal command but opens eyes and can turn head. Making more urine output.
[2019-01-27] MEDS: Solu-MEDROL 125mg Inj IVP SCH ×3 (05:37→20:23)
[2019-01-27] MEDS: LORazepam Inj 2mg/ml 1ml IV PRN ×4 (05:37→20:22)
[2019-01-27] MEDS: NovoLOG Insulin Flexpen SUBQ SCH ×4 (05:37→18:00)
--- NOTE | 2019-01-27 06:00 | NUR ---
NURSE NOTES: Patient repositioned and given oral care. Patient Agitated at times. Opens eyes spontaneously but does not respond to command. Patient has good strength on both arms. Will continue to monitor.
[2019-01-27 06:46] LABS: HEMATOCRIT 35.5 % (42.0-52.0); MEAN CORPUSCULAR VOLUME 97 FL (80-99); PLATELET COUNT 136 K/UL (150-450); RED BLOOD COUNT 3.67 M/UL (4.70-6.10); RED CELL DISTRIBUTION WIDTH 14.9 % (11.6-14.8); WHITE BLOOD COUNT 16.9 K/UL (4.8-10.8)
--- NOTE | 2019-01-27 06:52 | NUR ---
RESPIRATORY NOTE: Received pt on current vent settings: AC 26-520ml- 30%- peep 5. Pt is newly oral intubated with ETT size 8.0 @25cm lips line, secured by anchor fast. Breathing TX given without adverse reactions. Omer diminished breath sounds heard upon auscultation, suctioned scant thin white secretions, oral suctioned moderated amt of thick red specks/brown red secretions without incidents. Alarms are set and audible, vent is plugged into the red outlet, ambu bag is at bedside. Pt is stable, open eyes but unable to follow commands. No SOB or resp distress noted. Bite block in place to prevent tube biting. Will continue to monitor pt.
--- NOTE | 2019-01-27 07:00 | NUR ---
HAND-OFF: Report given to Luigi ROYAL.
--- NOTE | 2019-01-27 07:01 | NUR ---
NURSE NOTES: RECEIVED PATIENT FROM Alfredo COELHO RN. PATIENT IS SEEN LYING IN BED, ABLE TO OPE EYES BUT DOESN'T TRACK. HOOKED TO SOFTWARE PUBLISHER. HR OF 88. ORALLY INTUBATED ETT 8.0 AT 23CM LIP LINE WITH VENT SETTINGS AC 26, TV 520, FiO2 AT 30%, PEEP 5. NO SIGNS OF DISTRESS OF THE MOMENT. WITH R NGT CONNECTED TO LIS.IV ON THE R AC G20, SL. CENTRAL LINE ON R IJ TLC WITH AMIODARONE RUNNING AT 0.5MG/MIN FOLLOWING HOSPITAL PROTOCOL. IVF RUNNING D5 NS AT 100ML/HR. CALL LIGHT WITHIN REACH. BED AT LOWEST POSITION. SIDE RAILS UP AND PADDED. WILL CONTINUE TO MONITOR.
[2019-01-27 07:39] LABS: ALANINE AMINOTRANSFERASE 56 U/L (12-78); ALBUMIN 2.8 G/DL (3.4-5.0); ALBUMIN/GLOBULIN RATIO 0.9 (1.0-2.7); ALKALINE PHOSPHATASE 57 U/L (46-116); ANION GAP 7 mmol/L (5-15); ASPARTATE AMINO TRANSFERASE 52 U/L (15-37); BILIRUBIN,TOTAL 0.6 MG/DL (0.2-1.0); BLOOD UREA NITROGEN 25 mg/dL (7-18); CALCIUM 8.2 MG/DL (8.5-10.1); CARBON DIOXIDE 28 MMOL/L (21-32); CHLORIDE 106 MMOL/L (98-107); CHOLESTEROL 184 MG/DL (< 200); HDL CHOLESTEROL 79 MG/DL (40-60); POTASSIUM 3.9 MMOL/L (3.5-5.1); SODIUM 141 MMOL/L (136-145); TRIGLYCERIDES 44 MG/DL (30-150)
[2019-01-27 08:17] LABS: PHOSPHORUS 3.4 MG/DL (2.5-4.9)
[2019-01-27] MEDS: Doxycycline Hyclate 100 MG in D5W 110 ML IV SCH ×2 (08:46→20:22)
[2019-01-27] MEDS: Pantoprazole Inj IVP SCH (08:47)
[2019-01-27] MEDS: Heparin 5000 units/ml inj SUBQ SCH ×2 (08:48→20:24)
--- NOTE | 2019-01-27 09:30 | NUR ---
NURSE NOTES: SUCTIONED AND REPOSITIONED PATIENT. ORAL CARE DONE. NO SIGNS OF DISTRESS. WILL CONTINUE TO MONITOR.
[2019-01-27] MEDS ORDERED: Tubing IV Secondary IV ONE ×2 (09:59→15:17)
[2019-01-27] MEDS ORDERED: D5W 275ml ONE (09:59)
[2019-01-27] MEDS ORDERED: NS 275ml ONE ×2 (09:59→15:17)
[2019-01-27] MEDS ORDERED: 1/2 NS 1000ml IV ONE (09:59)
[2019-01-27] MEDS ORDERED: D5NS 1000ml IV ONE ×2 (09:59→15:17)
--- NOTE | 2019-01-27 11:30 | NUR ---
NURSE NOTES: PATIENT NOTED TO BE RESPONSIVE. ORAL CARE DONE. SUCTIONED SECRETIONS. TOLERATING VENT SETTINGS OF THE MOMENT. NO SIGNS OF DISTRESS. STILL ON RESTRAINTS DUE TO PULLING OBJECTS. WILL CONTINUE TO MONITOR.
[2019-01-27 12:15] LABS: APPEARANCE,URINE CLEAR; BILIRUBIN, URINE NEGATIVE (NEGATIVE); GLUCOSE, URINE (UA) NEGATIVE (NEGATIVE); KETONES,URINE NEGATIVE (NEGATIVE); LEUKOCYTE ESTERASE ,URINE 1+ (NEGATIVE); NITRITE,URINE NEGATIVE (NEGATIVE); PH,URINE 5 (4.5-8.0); PROTEIN,URINE 1+ (NEGATIVE); UROBILINOGEN,URINE NORMAL MG/DL (0.0-1.0)
[2019-01-27 12:19] LABS: COLOR,URINE YELLOW
--- NOTE | 2019-01-27 13:24 | NUR ---
NURSE NOTES: Observed patient bedside. Patient is AAO x 2. Patient opens eyes spontaneously, tracks with his eyes, responds to stimulus and commands and nods his head yes and no intermittently to inquiries. When asked if patient was in any pain, patient nodded no. When asked after repositioned, if patient was now more comfortable, patient nodded yes. When asked patient to wiggle his toes, patient wiggles his toes BL. Family is also bedside. Pupils are PERRLA. Patient recognizes his family when they entered the room. Patient was repositioned for comfort. Will continue to monitor and follow plan of care.
--- NOTE | 2019-01-27 16:00 | NUR ---
NURSE NOTES: BROUGHT THE PATIENT DOWN FOR CT SCAN. ATIVAN WAS GIVEN. BACK ON THE UNIT. NO SIGNS OF DISTRESS. WILL CONTINUE TO MONITOR.
--- NOTE | 2019-01-27 16:29 | NUR ---
RESPIRATORY NOTE: Transported pt to get CT scan done and back to ICU via ambu bag 15L 100%. Pt's vital signs are stable but he is little agitated. Placed pt back to vent with the same previous settings. HR 91, saturates aat 99%, RR 26bpm. Pt is calm, resting in bed, no SIB or resp distress noted.
--- NOTE | 2019-01-27 16:45 | Diagnostic Imaging Report ---
EXAM: CT Head Without Intravenous Contrast CLINICAL HISTORY: Seizure TECHNIQUE: Axial computed tomography images of the head/brain without intravenous contrast. CTDI is 0.15, 70.38 mGy and DLP is 1432 mGy-cm. One or more of the following dose reduction techniques were used: automated exposure control, adjustment of the mA and/or kV according to patient size, use of iterative reconstruction technique. COMPARISON: 06/05/2018 FINDINGS: Brain: No acute intracranial hemorrhage, large hypodensity, or significant mass effect. Nonspecific areas of hypoattenuation in the periventricular white matter likely represent the sequela of chronic small vessel ischemic disease. Ventricles: Ventricular and sulcal prominence commensurate with the patient's age. Bones/joints: Unremarkable. No acute fracture. Soft tissues: Unremarkable. Sinuses: Unremarkable. Mastoid air cells: Unremarkable. IMPRESSION: No acute intracranial abnormality.
--- NOTE | 2019-01-27 17:30 | NUR ---
NURSE NOTES: Dr White assessed patient bedside. MD wants to start weaning trial in the morning. Per MD changed vent settings as well. Will con't to monitor and follow MD plan of care.
[2019-01-27 17:56] LABS: % IRON SATURATION 13 % (15-50); IRON 23 ug/dL (50-175); TOTAL IRON BINDING CAPACITY 183 ug/dL (250-450)
[2019-01-27] MEDS ORDERED: ALBUTEROL SULF8.5 GM INH (18:02)
[2019-01-27] MEDS ORDERED: SUPER BETA PROSTATE PO (18:04)
[2019-01-27] MEDS ORDERED: MULTIVITAMINS1 EAC2 ORAL (18:06)
[2019-01-27 18:08] LABS: FERRITIN 493 NG/ML (8-388)
--- NOTE | 2019-01-27 18:51 | NUR ---
NURSE NOTES: PATIENT KEPT CLEAN AND DRY. WILL CONTINUE TO MONITOR.
--- NOTE | 2019-01-27 19:24 | NUR ---
HAND-OFF: Report given to Alfredo Rojas RN.
--- NOTE | 2019-01-27 19:50 | General Progress Note ---
Assessment/Plan Assessment/Plan: s: Intubated. Vent setting reviwed PHYSICAL EXAMINATION: GENERAL: An elderly male, lying in bed, intubated on mechanical ventilation, not in acute distress. HEENT: Normocephalic and atraumatic. Pupils slightly responsive to light. Unable to assess oral mucosa with E-tube in place. NECK: Supple. No lymphadenopathy. CARDIOVASCULAR: He is tachycardic. S1, S2 normal. No murmur can be heard. LUNGS: Diminished breathing sounds at the bases. No wheezing or rhonchi. Normal breathing effort. Mechanically ventilated. ABDOMEN: Soft, nontender, and nondistended. Normal bowel sounds. No hepatosplenomegaly or ascites. No organomegaly. EXTREMITIES: No edema or cyanosis. labs: dated Jan 27 reviewed IMAGING: Chest x-ray dated January 26 is negative for any ___ pneumothorax. Meds: reviewed and reconciled ASSESSMENT AND PLAN: 1. Vent dependent respiratory failure. 2. Chronic obstructive pulmonary disease, end-stage, oxygen-dependent. 3. Cardiopulmonary arrest, status post resuscitation x2. 4. Hypertension. 5. Abnormal blood sugar. 6. Anemia. 7. Abn Trop: likely secondary to #3 7. GI and DVT prophylaxis. PLAN OF CARE: Current Antibiotic management Notes from cardiology and ID reviewed Subjective Allergies: Coded Allergies: No Known Allergies (Unverified , 06/05/18) Objective Last 24 Hour Vital Signs Date Time Temp Pulse Resp B/P (MAP) Pulse Ox O2 Delivery O2 Flow Rate FiO2 01/27/19 19:11 72 23 100 Mechanical Ventilator 30 01/27/19 19:03 71 22 100 Mechanical Ventilator 30 01/27/19 19:01 70 22 30 01/27/19 19:00 72 22 122/78 (93) 100 01/27/19 18:00 70 26 114/75 (88) 100 01/27/19 17:58 71 22 30 01/27/19 17:00 71 26 118/78 (91) 100 01/27/19 16:30 91 26 30 01/27/19 16:00 30 01/27/19 16:00 97.9 01/27/19 16:00 70 01/27/19 16:00 Mechanical Ventilator 01/27/19 16:00 83 25 118/70 (86) 100 01/27/19 15:00 64 26 138/70 (92) 100 01/27/19 14:55 68 26 100 Mechanical Ventilator 30 01/27/19 14:45 74 26 100 Mechanical Ventilator 30 01/27/19 14:43 68 26 30 01/27/19 14:00 69 26 124/97 (106) 100 01/27/19 13:27 70 26 30 01/27/19 13:00 71 25 118/62 (80) 100 01/27/19 12:00 98.5 70 26 109/68 (82) 99 01/27/19 12:00 70 01/27/19 12:00 Mechanical Ventilator 01/27/19 12:00 30 01/27/19 11:10 67 26 100 Mechanical Ventilator 30 01/27/19 11:00 71 26 109/68 (82) 100 01/27/19 11:00 72 26 97 Mechanical Ventilator 30 01/27/19 10:56 67 26 30 01/27/19 10:20 26 Mechanical Ventilator 30 01/27/19 10:00 70 26 112/70 (84) 100 01/27/19 09:30 69 26 116/69 (85) 100 01/27/19 09:19 75 27 30 01/27/19 09:00 67 26 115/72 (86) 100 01/27/19 08:30 67 26 102/68 (79) 100 01/27/19 08:00 30 01/27/19 08:00 99.5 66 26 108/64 (79) 97 01/27/19 08:00 Mechanical Ventilator 01/27/19 08:00 65 01/27/19 07:30 68 26 99/66 (77) 100 01/27/19 07:00 69 26 103/65 (78) 100 01/27/19 06:52 71 26 30 01/27/19 06:51 71 26 100 Mechanical Ventilator 30 01/27/19 06:43 69 26 100 Mechanical Ventilator 30 01/27/19 06:30 68 26 102/69 (80) 100 01/27/19 06:00 69 26 111/66 (81) 100 01/27/19 05:30 75 22 119/96 (104) 98 01/27/19 05:00 67 26 110/67 (81) 100 01/27/19 04:33 69 26 30 01/27/19 04:30 69 21 96/66 (76) 100 01/27/19 04:03 69 26 97 Mechanical Ventilator 30 01/27/19 04:00 99.0 66 26 104/70 (81) 100 01/27/19 04:00 66 01/27/19 04:00 Mechanical Ventilator 01/27/19 04:00 30 01/27/19 03:53 67 26 30 01/27/19 03:53 68 26 100 Mechanical Ventilator 30 01/27/19 03:30 73 23 113/83 (93) 100 01/27/19 03:00 68 24 113/83 (93) 100 01/27/19 02:00 65 26 99/65 (76) 100 01/27/19 01:30 65 26 30 01/27/19 01:00 65 20 97/71 (80) 100 01/27/19 00:32 94 26 98 Mechanical Ventilator 30 01/27/19 00:30 69 23 102/50 (67) 100 01/27/19 00:00 30 01/27/19 00:00 99.2 72 26 104/74 (84) 100 01/27/19 00:00 Mechanical Ventilator 01/26/19 23:52 70 26 30 01/26/19 23:52 70 26 100 Mechanical Ventilator 30 01/26/19 23:30 70 25 109/74 (86) 100 01/26/19 23:00 71 26 98/70 (79) 100 01/26/19 23:00 108/68 01/26/19 22:30 72 26 96/69 (78) 100 01/26/19 22:00 71 26 123/77 (92) 100 01/26/19 22:00 114/65 01/26/19 21:30 73 26 143/73 (96) 100 01/26/19 21:13 73 26 30 01/26/19 21:06 112/72 01/26/19 21:00 73 26 101/71 (81) 100 01/26/19 20:30 77 25 105/79 (88) 100 01/26/19 20:09 100 26 100 Mechanical Ventilator 30 01/26/19 20:03 30 01/26/19 20:03 81 26 30 01/26/19 20:02 79 26 100 Mechanical Ventilator 30 01/26/19 20:00 81 25 109/72 (84) 100 01/26/19 20:00 Mechanical Ventilator 01/26/19 20:00 30 01/26/19 20:00 119/69 01/26/19 20:00 71 Intake and Output 01/26/19 01/27/19 18:59 06:59 Intake Total 1532.816 ml 1953.06 ml Output Total 10 ml 655 ml Balance 1522.816 ml 1298.06 ml Intake IV Total 1532.816 ml 1953.06 ml Output Urine Total 10 ml 655 ml Laboratory Tests 01/26/19 20:00: Arterial Blood pH 7.420, Arterial Blood Partial Pressure CO2 42.4, Arterial Blood Partial Pressure O2 252.5H, Arterial Blood HCO3 26.9H, Arterial Blood Oxygen Saturation 99.3, Arterial Blood Base Excess 2.1H, Delon Test Positive 01/26/19 20:11: Troponin I 1.471H 01/27/19 05:50: Troponin I 0.918H, White Blood Count 16.9#H, Red Blood Count 3.67L, Hemoglobin 11.0L, Hematocrit 35.5L, Mean Corpuscular Volume 97, Mean Corpuscular Hemoglobin 29.9, Mean Corpuscular Hemoglobin Concent 30.9L, Red Cell Distribution Width 14.9H, Platelet Count 136L, Mean Platelet Volume 6.8, Neutrophils (%) (Auto) , Lymphocytes (%) (Auto) , Monocytes (%) (Auto) , Eosinophils (%) (Auto) , Basophils (%) (Auto) , Differential Total Cells Counted 100, Neutrophils % (Manual) 91H, Lymphocytes % (Manual) 4L, Monocytes % (Manual) 5, Eosinophils % (Manual) 0, Basophils % (Manual) 0, Band Neutrophils 0 , Platelet Estimate DecreasedL, Platelet Morphology Normal, Hypochromasia 1+, Anisocytosis 1+, Sodium Level 141, Potassium Level 3.9, Chloride Level 106, Carbon Dioxide Level 28, Anion Gap 7, Blood Urea Nitrogen 25H, Creatinine 1.0, Estimat Glomerular Filtration Rate , Glucose Level 131H, Hemoglobin A1c 5.6, Calcium Level 8.2L, Phosphorus Level 3.4, Magnesium Level 1.6L, Total Bilirubin 0.6, Aspartate Amino Transf (AST/SGOT) 52H, Alanine Aminotransferase (ALT/SGPT) 56, Alkaline Phosphatase 57, Total Protein 6.0L, Albumin 2.8L, Globulin 3.2, Albumin/Globulin Ratio 0.9L, Triglycerides Level 44, Cholesterol Level 184, LDL Cholesterol 100, HDL Cholesterol 79H, Cholesterol/HDL Ratio 2.3L, Thyroid Stimulating Hormone (TSH) 0.821 01/27/19 09:10: Urine Color Yellow, Urine Appearance Clear, Urine pH 5, Urine Specific Meta 1.020, Urine Protein 1+H, Urine Glucose (UA) Negative, Urine Ketones Negative, Urine Blood 3+H, Urine Nitrite Negative, Urine Bilirubin Negative, Urine Urobilinogen Normal, Urine Leukocyte Esterase 1+H, Urine RBC 10-15H, Urine WBC 2 -4, Urine Squamous Epithelial Cells Occasional, Urine Bacteria Occasional 01/27/19 17:30: Prothrombin Time 10.8, Prothromb Time International Ratio 1.0, Iron Level 23L, Total Iron Binding Capacity 183L, Percent Iron Saturation 13L, Unsaturated Iron Binding 160, Ferritin 493H, Carcinoembryonic Antigen [Pending] Height (Feet): 5 Height (Inches): 10.00 Weight (Pounds): 139 Brianne Henry MD Jan 27, 2019 19:50
--- NOTE | 2019-01-27 20:00 | NUR ---
NURSE NOTES: RECEIVED PATIENT FROM GENNY MARTINEZ. PATIENT IS SEEN LYING IN BED, ABLE TO OPE EYES BUT DOESN'T TRACK. HOOKED TO IT CONSULTING MANAGER. HR OF 75 NSR ORALLY INTUBATED ETT 8.0 AT 23CM LIP LINE WITH VENT SETTINGS AC 22, TV 500, FiO2 AT 30%, PEEP 5. NO SIGNS OF DISTRESS OF THE MOMENT.. CENTRAL LINE ON R IJ TLC WITH IVF RUNNING D5 NS AT 100ML/HR. CALL LIGHT WITHIN REACH. BED AT LOWEST POSITION. SIDE RAILS UP AND PADDED. WILL CONTINUE TO MONITOR.
[2019-01-27] MEDS: Piperacillin/Tazobactam 3.375 GM in NS 110 ML IVPB SCH (20:22)
[2019-01-27] MEDS: Morphine Sulfate 2mg/ml Inj(IV/IM USE ONLY) IVP PRN (20:22)
[2019-01-27] MEDS: Dyna-Hex 2% Top Sol 2oz TOPIC SCH (20:23)
--- NOTE | 2019-01-27 20:30 | NUR ---
NURSE NOTES: Patient has large normal BM. Patient cleaned using CHG soap. Ativan given cause patient became restless. Patient repositioned and oral care performed.
[2019-01-27] MEDS ORDERED: Vancomycin 1.25gm Premix IVPB ONE (21:00)
--- NOTE | 2019-01-27 21:12 | Pulmonolgy Critical Care Note ---
Critical Care - Asmt/Plan Assessment/Plan: Pulmonary Critical Care Progress Note HPI Patient is a 73 year olf man with previous history of COPD, CHF, HTN, DM admitted with extreme respiratory distress, intubated in the ED, subsequent Cardiac Arrest. Noted to have hypercapneic respiratory failure. Interactive today, improved ventilator requirements CT Head negative Allergies: No Known Allergies Past Medical History: COPD/Asthma, CHF, Hypertension, DM All Other Systems: limited Physical Exam Vital signs noted General Appearance: sedated on ventilator Head: normocephalic, atraumatic Eyes: bilateral eye PERRL, bilateral eye EOMI ENT: moist mm, no LN Neck: supple Respiratory: generally reduced BS, occasional wheeze Cardiovascular: tachycardia, HS1, HS2, RRR Gastrointestinal: non tender, soft Musculoskeletal: normal inspection Neurologic: sedated on ventilator Skin: no rash, palpation normal Impression: COPD exacerbation Hypercapneic respiratory failure S/p cardiac arrest in the ED CHF HTN Diabetes Plan Wean as tolerated Adjust FIO2 for sats 90-94% HHN Q4 IV Solumedrol Sedation PRN Sz management Monitor labs PPX IV Doxycycline DNR status Labs Test 01/26/19 05:45 White Blood Count 9.6 K/UL (4.8-10.8) Red Blood Count 4.57 M/UL (4.70-6.10) Hemoglobin 13.5 G/DL (14.2-18.0) Hematocrit 46.0 % (42.0-52.0) Mean Corpuscular Volume 101 FL (80-99) Mean Corpuscular Hemoglobin 29.6 PG (27.0-31.0) Mean Corpuscular Hemoglobin Concent 29.4 G/DL (32.0-36.0) Red Cell Distribution Width 15.2 % (11.6-14.8) Platelet Count 181 K/UL (150-450) Mean Platelet Volume 7.5 FL (6.5-10.1) Neutrophils (%) (Auto) 49.7 % (45.0-75.0) Lymphocytes (%) (Auto) 33.3 % (20.0-45.0) Monocytes (%) (Auto) 8.2 % (1.0-10.0) Eosinophils (%) (Auto) 8.2 % (0.0-3.0) Basophils (%) (Auto) 0.7 % (0.0-2.0) Lactic Acid Level 0.80 mmol/L (0.4-2.0) Chest X-Ray: No consolidation, no effusion, ETT tube 7cm, RIJ line good position Critical Care - Objective Last 24 Hour Vital Signs Date Time Temp Pulse Resp B/P (MAP) Pulse Ox O2 Delivery O2 Flow Rate FiO2 01/27/19 20:50 90 24 30 01/27/19 19:11 72 23 100 Mechanical Ventilator 30 01/27/19 19:03 71 22 100 Mechanical Ventilator 30 01/27/19 19:01 70 22 30 01/27/19 19:00 72 22 122/78 (93) 100 01/27/19 18:00 70 26 114/75 (88) 100 01/27/19 17:58 71 22 30 01/27/19 17:00 71 26 118/78 (91) 100 01/27/19 16:30 91 26 30 01/27/19 16:00 30 01/27/19 16:00 97.9 01/27/19 16:00 70 01/27/19 16:00 Mechanical Ventilator 01/27/19 16:00 83 25 118/70 (86) 100 01/27/19 15:00 64 26 138/70 (92) 100 01/27/19 14:55 68 26 100 Mechanical Ventilator 30 01/27/19 14:45 74 26 100 Mechanical Ventilator 30 01/27/19 14:43 68 26 30 01/27/19 14:00 69 26 124/97 (106) 100 01/27/19 13:27 70 26 30 01/27/19 13:00 71 25 118/62 (80) 100 01/27/19 12:00 98.5 70 26 109/68 (82) 99 01/27/19 12:00 70 01/27/19 12:00 Mechanical Ventilator 01/27/19 12:00 30 01/27/19 11:10 67 26 100 Mechanical Ventilator 30 01/27/19 11:00 71 26 109/68 (82) 100 01/27/19 11:00 72 26 97 Mechanical Ventilator 30 01/27/19 10:56 67 26 30 01/27/19 10:20 26 Mechanical Ventilator 30 01/27/19 10:00 70 26 112/70 (84) 100 01/27/19 09:30 69 26 116/69 (85) 100 01/27/19 09:19 75 27 30 01/27/19 09:00 67 26 115/72 (86) 100 01/27/19 08:30 67 26 102/68 (79) 100 01/27/19 08:00 30 01/27/19 08:00 99.5 66 26 108/64 (79) 97 01/27/19 08:00 Mechanical Ventilator 01/27/19 08:00 65 01/27/19 07:30 68 26 99/66 (77) 100 01/27/19 07:00 69 26 103/65 (78) 100 01/27/19 06:52 71 26 30 01/27/19 06:51 71 26 100 Mechanical Ventilator 30 01/27/19 06:43 69 26 100 Mechanical Ventilator 30 01/27/19 06:30 68 26 102/69 (80) 100 01/27/19 06:00 69 26 111/66 (81) 100 01/27/19 05:30 75 22 119/96 (104) 98 01/27/19 05:00 67 26 110/67 (81) 100 01/27/19 04:33 69 26 30 01/27/19 04:30 69 21 96/66 (76) 100 01/27/19 04:03 69 26 97 Mechanical Ventilator 30 01/27/19 04:00 99.0 66 26 104/70 (81) 100 01/27/19 04:00 66 01/27/19 04:00 Mechanical Ventilator 01/27/19 04:00 30 01/27/19 03:53 67 26 30 01/27/19 03:53 68 26 100 Mechanical Ventilator 30 01/27/19 03:30 73 23 113/83 (93) 100 01/27/19 03:00 68 24 113/83 (93) 100 01/27/19 02:00 65 26 99/65 (76) 100 01/27/19 01:30 65 26 30 01/27/19 01:00 65 20 97/71 (80) 100 01/27/19 00:32 94 26 98 Mechanical Ventilator 30 01/27/19 00:30 69 23 102/50 (67) 100 01/27/19 00:00 30 01/27/19 00:00 99.2 72 26 104/74 (84) 100 01/27/19 00:00 Mechanical Ventilator 01/26/19 23:52 70 26 30 01/26/19 23:52 70 26 100 Mechanical Ventilator 30 01/26/19 23:30 70 25 109/74 (86) 100 01/26/19 23:00 71 26 98/70 (79) 100 01/26/19 23:00 108/68 01/26/19 22:30 72 26 96/69 (78) 100 01/26/19 22:00 71 26 123/77 (92) 100 01/26/19 22:00 114/65 01/26/19 21:30 73 26 143/73 (96) 100 01/26/19 21:13 73 26 30 Micro: Microbiology Date/Time Source Procedure Growth Status 01/26/19 05:45 Blood Blood Culture - Preliminary NO GROWTH AFTER 24 HOURS Resulted 01/26/19 05:30 Blood Blood Culture - Preliminary NO GROWTH AFTER 24 HOURS Resulted 01/26/19 07:00 Rectum Received Accucheck: 112 Critical Care - Subjective ROS Limited/Unobtainable: No FI02: 30 Vent Support Breath Rate: 22 Vent Support Mode: AC Vent Tidal Volume: 500 Sputum Amount: Small PEEP: 5.0 PIP: 24 I&O: Intake and Output 01/26/19 01/27/19 18:59 06:59 Intake Total 1532.816 ml 1953.06 ml Output Total 10 ml 655 ml Balance 1522.816 ml 1298.06 ml Intake IV Total 1532.816 ml 1953.06 ml Output Urine Total 10 ml 655 ml ET-Tube: 8.0 ET Position: 25 Johny White MD Jan 27, 2019 21:12
--- NOTE | 2019-01-27 22:00 | NUR ---
NURSE NOTES: Repositioned and gave oral care. Suctioned patient. Fentanyl gtt started. Vitals remains stable.
--- NOTE | 2019-01-27 22:53 | Infectious Diseases Prog Note ---
Assessment/Plan Problems: (1) Leukocytosis Assessment & Plan: rule out sepsis, will send blood culture x2, and repeat CXR to rule out aspiration. will start vancomycin and zosyn empirically (2) Acute exacerbation of chronic obstructive pulmonary disease (COPD) Assessment & Plan: continue doxycycline and nebulizer treatment as per pulmonary (3) Cardiac arrest Assessment & Plan: etiology ? recommend cardiology eval to rule out cardiac sources and neurology eval to evaluate his brain condition and to rule out anoxic brain injury (4) Chronic hypercapnic respiratory failure Assessment & Plan: S/P cardiac arrest , S/P intubation, monitor in ICU, pulmonary is following Subjective ROS Limited/Unobtainable: Yes Allergies: Coded Allergies: No Known Allergies (Unverified , 06/05/18) Subjective He is still intubated on mechanical ventilation, more awake and responsive today , not febrile. Objective Vital Signs Last 24 Hour Vital Signs Date Time Temp Pulse Resp B/P (MAP) Pulse Ox O2 Delivery O2 Flow Rate FiO2 01/27/19 22:04 22 Mechanical Ventilator 30 01/27/19 22:00 73 20 129/79 (96) 100 01/27/19 21:00 90 20 116/75 (89) 100 01/27/19 20:50 90 24 30 01/27/19 20:00 30 01/27/19 20:00 72 01/27/19 20:00 Mechanical Ventilator 01/27/19 20:00 98.3 73 22 120/78 (92) 100 01/27/19 19:11 72 23 100 Mechanical Ventilator 30 01/27/19 19:03 71 22 100 Mechanical Ventilator 30 01/27/19 19:01 70 22 30 01/27/19 19:00 72 22 122/78 (93) 100 01/27/19 18:00 70 26 114/75 (88) 100 01/27/19 17:58 71 22 30 01/27/19 17:00 71 26 118/78 (91) 100 01/27/19 16:30 91 26 30 01/27/19 16:00 30 01/27/19 16:00 97.9 01/27/19 16:00 70 01/27/19 16:00 Mechanical Ventilator 01/27/19 16:00 83 25 118/70 (86) 100 01/27/19 15:00 64 26 138/70 (92) 100 01/27/19 14:55 68 26 100 Mechanical Ventilator 30 01/27/19 14:45 74 26 100 Mechanical Ventilator 30 01/27/19 14:43 68 26 30 01/27/19 14:00 69 26 124/97 (106) 100 01/27/19 13:27 70 26 30 01/27/19 13:00 71 25 118/62 (80) 100 01/27/19 12:00 98.5 70 26 109/68 (82) 99 01/27/19 12:00 70 01/27/19 12:00 Mechanical Ventilator 01/27/19 12:00 30 01/27/19 11:10 67 26 100 Mechanical Ventilator 30 01/27/19 11:00 71 26 109/68 (82) 100 01/27/19 11:00 72 26 97 Mechanical Ventilator 30 01/27/19 10:56 67 26 30 01/27/19 10:20 26 Mechanical Ventilator 30 01/27/19 10:00 70 26 112/70 (84) 100 01/27/19 09:30 69 26 116/69 (85) 100 01/27/19 09:19 75 27 30 01/27/19 09:00 67 26 115/72 (86) 100 01/27/19 08:30 67 26 102/68 (79) 100 01/27/19 08:00 30 01/27/19 08:00 99.5 66 26 108/64 (79) 97 01/27/19 08:00 Mechanical Ventilator 01/27/19 08:00 65 01/27/19 07:30 68 26 99/66 (77) 100 01/27/19 07:00 69 26 103/65 (78) 100 01/27/19 06:52 71 26 30 01/27/19 06:51 71 26 100 Mechanical Ventilator 30 01/27/19 06:43 69 26 100 Mechanical Ventilator 30 01/27/19 06:30 68 26 102/69 (80) 100 01/27/19 06:00 69 26 111/66 (81) 100 01/27/19 05:30 75 22 119/96 (104) 98 01/27/19 05:00 67 26 110/67 (81) 100 01/27/19 04:33 69 26 30 01/27/19 04:30 69 21 96/66 (76) 100 01/27/19 04:03 69 26 97 Mechanical Ventilator 30 01/27/19 04:00 99.0 66 26 104/70 (81) 100 01/27/19 04:00 66 01/27/19 04:00 Mechanical Ventilator 01/27/19 04:00 30 01/27/19 03:53 67 26 30 01/27/19 03:53 68 26 100 Mechanical Ventilator 30 01/27/19 03:30 73 23 113/83 (93) 100 01/27/19 03:00 68 24 113/83 (93) 100 01/27/19 02:00 65 26 99/65 (76) 100 01/27/19 01:30 65 26 30 01/27/19 01:00 65 20 97/71 (80) 100 01/27/19 00:32 94 26 98 Mechanical Ventilator 30 01/27/19 00:30 69 23 102/50 (67) 100 01/27/19 00:00 30 01/27/19 00:00 99.2 72 26 104/74 (84) 100 01/27/19 00:00 Mechanical Ventilator 01/26/19 23:52 70 26 30 01/26/19 23:52 70 26 100 Mechanical Ventilator 30 01/26/19 23:30 70 25 109/74 (86) 100 01/26/19 23:00 71 26 98/70 (79) 100 01/26/19 23:00 108/68 Height (Feet): 5 Height (Inches): 10.00 Weight (Pounds): 139 General Appearance: WD/WN, no acute distress, cachetic HEENT: normocephalic, atraumatic, anicteric, mucous membranes moist, PERRL Respiratory/Chest: chest wall non-tender, no respiratory distress, no accessory muscle use, decreased breath sounds, crackles/rales Cardiovascular: normal peripheral pulses, normal rate, regular rhythm, no gallop/murmur, no JVD Abdomen: normal bowel sounds, soft, non tender, no organomegaly, non distended , no mass, no scars Genitourinary: normal external genitalia Extremities: no cyanosis, no clubbing Skin: no rash, no lesions, no ulcers Neurologic/Psychiatric: alert, responsive Lymphatic: no neck adenopathy, no groin adenopathy Musculoskeletal: normal muscle bulk, no effusion Microbiology Date/Time Source Procedure Growth Status 01/26/19 05:45 Blood Blood Culture - Preliminary NO GROWTH AFTER 24 HOURS Resulted 01/26/19 05:30 Blood Blood Culture - Preliminary NO GROWTH AFTER 24 HOURS Resulted 01/26/19 07:00 Rectum Received Laboratory Tests Test 01/27/19 05:50 01/27/19 09:10 01/27/19 17:30 01/27/19 20:15 White Blood Count 16.9 K/UL (4.8-10.8) #H Red Blood Count 3.67 M/UL (4.70-6.10) L Hemoglobin 11.0 G/DL (14.2-18.0) L Hematocrit 35.5 % (42.0-52.0) L Mean Corpuscular Volume 97 FL (80-99) Mean Corpuscular Hemoglobin 29.9 PG (27.0-31.0) Mean Corpuscular Hemoglobin Concent 30.9 G/DL (32.0-36.0) L Red Cell Distribution Width 14.9 % (11.6-14.8) H Platelet Count 136 K/UL (150-450) L Mean Platelet Volume 6.8 FL (6.5-10.1) Neutrophils (%) (Auto) % (45.0-75.0) Lymphocytes (%) (Auto) % (20.0-45.0) Monocytes (%) (Auto) % (1.0-10.0) Eosinophils (%) (Auto) % (0.0-3.0) Basophils (%) (Auto) % (0.0-2.0) Differential Total Cells Counted 100 Neutrophils % (Manual) 91 % (45-75) H Lymphocytes % (Manual) 4 % (20-45) L Monocytes % (Manual) 5 % (1-10) Eosinophils % (Manual) 0 % (0-3) Basophils % (Manual) 0 % (0-2) Band Neutrophils 0 % (0-8) Platelet Estimate Decreased L Platelet Morphology Normal Hypochromasia 1+ Anisocytosis 1+ Sodium Level 141 MMOL/L (136-145) Potassium Level 3.9 MMOL/L (3.5-5.1) Chloride Level 106 MMOL/L (98-107) Carbon Dioxide Level 28 MMOL/L (21-32) Anion Gap 7 mmol/L (5-15) Blood Urea Nitrogen 25 mg/dL (7-18) H Creatinine 1.0 MG/DL (0.55-1.30) Estimat Glomerular Filtration Rate mL/min (>60) Glucose Level 131 MG/DL (74-106) H Hemoglobin A1c 5.6 % (4.3-6.0) Calcium Level 8.2 MG/DL (8.5-10.1) L Phosphorus Level 3.4 MG/DL (2.5-4.9) Magnesium Level 1.6 MG/DL (1.8-2.4) L Total Bilirubin 0.6 MG/DL (0.2-1.0) Aspartate Amino Transf (AST/SGOT) 52 U/L (15-37) H Alanine Aminotransferase (ALT/SGPT) 56 U/L (12-78) Alkaline Phosphatase 57 U/L (46-116) Troponin I 0.918 ng/mL (0.000-0.056) Total Protein 6.0 G/DL (6.4-8.2) L Albumin 2.8 G/DL (3.4-5.0) L Globulin 3.2 g/dL Albumin/Globulin Ratio 0.9 (1.0-2.7) L Triglycerides Level 44 MG/DL (30-150) Cholesterol Level 184 MG/DL (< 200) LDL Cholesterol 100 mg/dL (<100) HDL Cholesterol 79 MG/DL (40-60) H Cholesterol/HDL Ratio 2.3 (3.3-4.4) L Thyroid Stimulating Hormone (TSH) 0.821 uiU/mL (0.358-3.740) Urine Color Yellow Urine Appearance Clear Urine pH 5 (4.5-8.0) Urine Specific [place] 1.020 (1.005-1.035) Urine Protein 1+ (NEGATIVE) H Urine Glucose (UA) Negative (NEGATIVE) Urine Ketones Negative (NEGATIVE) Urine Blood 3+ (NEGATIVE) H Urine Nitrite Negative (NEGATIVE) Urine Bilirubin Negative (NEGATIVE) Urine Urobilinogen Normal MG/DL (0.0-1.0) Urine Leukocyte Esterase 1+ (NEGATIVE) H Urine RBC 10-15 /HPF (0 - 0) H Urine WBC 2-4 /HPF (0 - 0) Urine Squamous Epithelial Cells Occasional /LPF Urine Bacteria Occasional /HPF (NONE) Prothrombin Time 10.8 SEC (9.30-11.50) Prothromb Time International Ratio 1.0 (0.9-1.1) Iron Level 23 ug/dL (50-175) L Total Iron Binding Capacity 183 ug/dL (250-450) L Percent Iron Saturation 13 % (15-50) L Unsaturated Iron Binding 160 ug/dL (112-346) Ferritin 493 NG/ML (8-388) H Carcinoembryonic Antigen Pending Lactic Acid Level 2.70 mmol/L (0.4-2.0) H Current Medications Medications (Trade) Dose Ordered Sig/Brittani Route PRN Reason Start Time Stop Time Status Last Admin Dose Admin Acetaminophen (Tylenol) 650 mg Q4H PRN NG FOR MILD PAIN 01/26/19 10:15 02/25/19 10:14 Albuterol/ Ipratropium (Albuterol/ Ipratropium) 3 ml Q4HRT HHN 01/26/19 11:00 01/31/19 10:59 01/27/19 19:04 Chlorhexidine Gluconate (Renetta-Hex 2%) 1 applic DAILY@2000 TOPIC 01/27/19 20:00 02/26/19 19:59 01/27/19 20:23 Dextrose (Dextrose 50%) 25 ml Q30M PRN IV Hypoglycemia 01/26/19 10:30 02/25/19 10:29 Dextrose (Dextrose 50%) 50 ml Q30M PRN IV Hypoglycemia 01/26/19 10:30 02/25/19 10:29 Dextrose/Sodium Chloride 1,000 ml @ 100 mls/hr Q10H IV 01/26/19 14:15 02/25/19 14:14 01/27/19 22:03 Doxycycline Hyclate 100 mg/ Dextrose 110 ml @ 110 mls/hr Q12HR IV 01/26/19 11:00 02/02/19 10:59 01/27/19 20:22 Fentanyl Citrate 1000 mcg/Sodium Chloride 100 ml @ 0 mls/hr Q24H IV 01/26/19 10:27 02/02/19 10:26 01/27/19 22:04 Heparin Sodium (Porcine) (Heparin 5000 units/ml) 5,000 units EVERY 12 HOURS SUBQ 01/26/19 11:00 02/25/19 10:59 01/27/19 20:24 Insulin Aspart (NovoLOG) Q6HR SUBQ 01/26/19 12:00 02/25/19 11:59 01/26/19 17:36 Ketorolac Tromethamine (Toradol 30mg) 30 mg BIDPRN PRN IV FOR MODERATE PAIN 01/26/19 10:15 01/31/19 10:14 Lorazepam (Ativan 2mg/ml 1ml) 1 mg Q1H PRN IV AGITATION / SEIZURE 01/26/19 18:30 02/02/19 18:29 01/27/19 20:22 Methylprednisolone Sodium Succinate (Solu-MEDROL) 60 mg EVERY 8 HOURS IVP 01/26/19 14:00 02/25/19 13:59 01/27/19 20:23 Morphine Sulfate (Morphine Sulfate) 2 mg Q8H PRN IVP FOR SEVERE PAIN 01/26/19 10:15 02/02/19 10:14 01/27/19 20:22 Norepinephrine Bitartrate 4 mg/ Dextrose 250 ml @ 0 mls/hr Q24H IV 01/26/19 14:15 02/25/19 14:14 01/26/19 18:46 Pantoprazole (Protonix) 40 mg DAILY IVP 01/26/19 11:00 02/25/19 10:59 01/27/19 08:47 Piperacillin Sod/ Tazobactam Sod 3.375 gm/Sodium Chloride 110 ml @ 27.5 mls/hr EVERY 8 HOURS IVPB 01/27/19 20:00 02/01/19 19:59 01/27/19 20:22 Sodium Chloride 500 ml @ 998.89 mls/ hr Q4H PRN IVPB MAP<60 01/26/19 10:15 02/25/19 10:14 Vancomycin HCl (Vanco rx to dose) 1 ea DAILY PRN MISC Per rx protocol 01/27/19 18:30 02/26/19 18:29 Vancomycin HCl 750 mg/Sodium Chloride 275 ml @ 183.333 mls/hr Q12HR IVPB 01/28/19 09:00 02/02/19 08:59 [place] Orlando M.D. Jan 27, 2019 22:53
[2019-01-28] VITALS (32 sets, daily range): BP systolic 95–165; BP diastolic 71–96
--- NOTE | 2019-01-28 | NUR ---
NURSE NOTES: Repositioned and given oral care. Patient sleeping at this time. Vitals remains stable. NAD at this time. No BM.
--- NOTE | 2019-01-28 01:15 | Progress Note ---
DATE: 01/27/2019 CARDIOLOGY PROGRESS NOTE SUBJECTIVE: The patient's condition remains critical. Prognosis guarded. He remains in the intensive care unit. He remains orally intubated and mechanically ventilated following Code Blue arrest. He is more alert and interactive. He is now off pressors. Monitor paroxysms of atrial fibrillation. Mostly sinus rhythm with nonsustained ectopics today. OBJECTIVE: VITAL SIGNS: Blood pressure 129/79, pulse 73, respirations 20. GENERAL: Orally intubated. LUNGS: Bilateral breath sounds with rhonchi. CARDIAC: Regular rhythm and rate. Normal S1, S2 with a fourth heart sound. ABDOMEN: Soft. EXTREMITIES: No edema. LABORATORY DATA: White count 16.9, hemoglobin 11. Lactic acid has decreased from 2.7 to 1.9. Magnesium 1.6, phosphorus 3.4, sodium 141, potassium 3.9, bicarbonate 28, BUN 25, creatinine 1. Troponin peaked at 1.47, now 0.91. IMPRESSION: 1. Acute respiratory failure. 2. Cardiopulmonary arrest. 3. Acute myocardial infarction that is non-ST elevation type. 4. Moderate protein-calorie malnutrition. 5. COPD exacerbation. 6. Hypomagnesemia. 7. Hypophosphatemia. 8. Aspiration pneumonia. 9. Leukocytosis in the setting of steroid therapy. 10. Recovered shock. 11. Anoxic encephalopathy. 12. Acute respiratory acidosis. PLAN: 1. Ventilator support. 2. Weaning parameters to follow. 3. Empiric antimicrobials. 4. DVT and stress ulcer prophylaxes. 5. Replace all electrolytes as needed. 6. Serial troponin level. 7. Echocardiogram. 8. EKG to be reviewed. Johny Jimenez M.D. DR: SIVA JOB#: [id number] CC:
--- NOTE | 2019-01-28 02:00 | NUR ---
NURSE NOTES: Repositioned and given oral care. Vitals continue to remain stable, no new changes.
[2019-01-28] MEDS: Albuterol/Ipratropium 3ml neb HHN SCH ×6 (03:18→22:55)
--- NOTE | 2019-01-28 04:00 | NUR ---
NURSE NOTES: Repositioned and gave oral care. Vitals remains stable. No acute changes. Blood drawn and sent to lab.
[2019-01-28 04:44] LABS: HEMATOCRIT 32.9 % (42.0-52.0); HEMOGLOBIN 10.3 G/DL (14.2-18.0); MEAN CORPUSCULAR VOLUME 96 FL (80-99); PLATELET COUNT 127 K/UL (150-450); RED BLOOD COUNT 3.43 M/UL (4.70-6.10); RED CELL DISTRIBUTION WIDTH 15.2 % (11.6-14.8); WHITE BLOOD COUNT 16.4 K/UL (4.8-10.8)
[2019-01-28 04:59] LABS: ALANINE AMINOTRANSFERASE 47 U/L (12-78); ALBUMIN 2.8 G/DL (3.4-5.0); ALBUMIN/GLOBULIN RATIO 0.9 (1.0-2.7); ALKALINE PHOSPHATASE 54 U/L (46-116); ANION GAP 4 mmol/L (5-15); ASPARTATE AMINO TRANSFERASE 41 U/L (15-37); BILIRUBIN,TOTAL 0.7 MG/DL (0.2-1.0); BLOOD UREA NITROGEN 25 mg/dL (7-18); CALCIUM 8.4 MG/DL (8.5-10.1); CARBON DIOXIDE 32 MMOL/L (21-32); CHLORIDE 105 MMOL/L (98-107); CREATININE 0.9 MG/DL (0.55-1.30); POTASSIUM 4.4 MMOL/L (3.5-5.1); SODIUM 141 MMOL/L (136-145)
[2019-01-28] MEDS: Piperacillin/Tazobactam 3.375 GM in NS 110 ML IVPB SCH ×3 (05:11→21:12)
[2019-01-28] MEDS: D5NS 1,000 ML IV SCH ×2 (05:11→15:00)
[2019-01-28] MEDS: Solu-MEDROL 125mg Inj IVP SCH ×3 (05:11→21:12)
[2019-01-28] MEDS: NovoLOG Insulin Flexpen SUBQ SCH ×5 (05:31→23:35)
--- NOTE | 2019-01-28 06:00 | NUR ---
NURSE NOTES: Repositioned. Vitals remain stable, fentanyl gtt has been off since 0400 for weaning trials.
--- NOTE | 2019-01-28 06:53 | NUR ---
HAND-OFF: Report given to Lilia ROYAL.
--- NOTE | 2019-01-28 07:15 | NUR ---
NURSE NOTES: Received change of shift report from Melvin ROYAL. Pt is asleep, opens eyes to voice/name, follows with eyes and follows commands. Per report, Fentanyl drip has been on hold since 0400 in anticipation/preparation for weaning determination this morning from vent. Pt is orally intubated ETT 8.0 at 23cm left lipline with vent settings AC22, VT500, Peep 5.0, FIO2 30% with O2sat at 100% and diminished lung sounds on auscultation. campus monitor displays NSR with heart rate in the 80's with weak peripheral pulses and slight edema noted on upper extremities. Central line IV access is present on right IJ, triple lumen, infusing D5 NS at 100ml/hour. NGT in place in right nares connected to low-intermittent suction, draining greenish yellow fluid. Pt is currently NPO. Abdomen is round, soft/nontender to touch with hypoactive bowel sounds. Saenz catheter is in place, draining clear/light merced urine. Pt has bilateral soft wrist restraints to prevent from self extubation, as pt was observed attempting to reach for the ET tube. Skin integrity at restraint site is within normal limits. Pt has bilateral rosenthal skin tear covered with optifoam dressing. Will continue to monitor pt and follow plan of care per MD orders and protocol.
--- NOTE | 2019-01-28 07:34 | NUR ---
RESPIRATORY NOTES: Received Patient on Vent settings ACVC 22, VT 500, Fio2 30%, PEEP +5. Patient currently intubated with 8.0 ETT at 25 cm lip line. Patient awake and disorientated. Breath sounds are bilateral diminished throughout both lung [place] Suctioned small amount of clear secretions. Will continue to monitor throughout the day.
--- NOTE | 2019-01-28 08:00 | NUR ---
RESPIRATORY NOTES: Weaning criteria passed. Started weaning at 0750. Placed on PS +8 PEEP +5 FIO2 30%. Will continue to monitor patient throughout the day.
[2019-01-28] MEDS ORDERED: Vancomycin 750mg/NS 275ml IVPB SCH ×2 (09:00)
--- NOTE | 2019-01-28 09:30 | NUR ---
NURSE NOTES: RT at bedside. Weaning trial was started at 0750 this morning with settings PS 8 and FIO2 30%. Pt tolerated until now with resp rate increased and O2sat dropping. Vent settings were switched back to previous ordered AC settings.
--- NOTE | 2019-01-28 09:38 | NUR ---
RESPIRATORY NOTES: Weaning failed. Placed back onto ACVC. WOB increased. Saturations to 69%. Addendum: 01/28/19 at 0939 by SARA BEE RT Placed back onto ACVC.
[2019-01-28] MEDS: Pantoprazole Inj IVP SCH (10:01)
[2019-01-28] MEDS: Doxycycline Hyclate 100 MG in D5W 110 ML IV SCH ×2 (10:01→20:16)
[2019-01-28] MEDS: Heparin 5000 units/ml inj SUBQ SCH ×2 (10:02→20:15)
--- NOTE | 2019-01-28 10:15 | NUR ---
NURSE NOTES: AM meds were administered. Oral care done. Pt's gown/bed linens were changed. Central line dressing was changed and biopatch placed underneath the dressing. Pt was repositioned with bilateral extremities elevated on pillows. VS stable. Fentanyl currently remains on hold as the pt is resting in no apparent distress.
[2019-01-28] MEDS ORDERED: D5NS 1000ml IV ONE (10:28)
[2019-01-28] MEDS ORDERED: NS 275ml ONE (10:28)
--- NOTE | 2019-01-28 10:59 | NUR ---
RD ASSESSMENT & RECOMMENDATIONS SEE CARE ACTIVITY FOR COMPLETE ASSESSMENT DAILY ESTIMATED NEEDS: Needs based on Critical care, 61kg 25-30 kcals/kg 4922-5426 total kcals 1.2-2 g protein/kg 73-122 g total protein 25-30 mL/kg 0983-9273 total fluid mLs NUTRITION DIAGNOSIS: * Swallowing difficulty R/T respiratory status as evidenced by pt s/p cardiac arrest, s/p intubation, NPO. CURRENT DIET: NPO (PO DIET RECOMMENDATIONS: GLASS CHECKER eval upon extubation) ENTERAL NUTRITION RECOMMENDATIONS: Vital AF 1.2 @55ml/hr x24 hrs to provide 1320ml, 1584 kcal, 99g pro, 1071ml free H2O - As medically able, rec temporary non oral feeds to meet est nutritional needs - Obtain GI access, start Vital 1.2 @15ml/hr x6 hrs. Advance as tolerated 10ml/hr q4-6 hrs to goal - Flush per MD, HOB over 30 degrees. ------ ADDITIONAL RECOMMENDATIONS: * W/ hemodynamic stability, TF recs as above * Calibrated bed scale wts * GLASS CHECKER eval for appropriate texture s/p extubation * Lytes, daily, replete as needed . . .
--- NOTE | 2019-01-28 11:07 | NUR ---
PRODUCT [employer] CLEANER SI: RESP FAILURE ETT/VENT SUPPORT,LEUKOCYTE T. 99.3 HR 81 RR 22 B/P 116/80 AC 22 TV 500 FIO2 30% PEEP 5 WBC 16.4 LACTID ACID 2.60 TROP 0.309 AST 41 BUN 25 IS: IVF D5NS @ 100ML/HR VANCO IV ZOSYN IV DOXYCYCLINE IV PROTONIX IV SOLU MEDROL IV FENTANYL IV ICU STATUS
--- NOTE | 2019-01-28 12:00 | NUR ---
NURSE NOTES: Fentanyl drip remains on hold. Pt is asleep currently, however easily awakens to voice/name. Bilateral soft wrist restraints remain in place, as the pt is observed attempting to sit up in bed and reach to pull the ET tube. Oral care done. Pt remains afebrile. Saenz continues to drain clear/light merced urine at average hourly rate of 30-40ml/hourly. Pt has been repositioned with bilateral extremities elevated on pillows.
[2019-01-28] MEDS: LORazepam Inj 2mg/ml 1ml IV PRN ×2 (12:34→21:13)
--- NOTE | 2019-01-28 13:21 | Cardiology Report ---
APPROVED REPORT EXAM: Two-dimensional and M-mode echocardiogram with Doppler and color Doppler. INDICATION OTHER M-Mode DIMENSIONS IVSd1.4 (0.7-1.1cm)Left Atrium (MM)1.8 (1.6-4.0cm) LVDd4.0 (3.5-5.6cm)Aortic Root3.3 (2.0-3.7cm) PWd0.9 (0.7-1.1cm)Aortic Cusp Exc.1.7 (1.5-2.0cm) IVSs1.4 cm LVDs3.0 (2.5-4.0cm) PWs1.2 cm Technically difficult study due to pt;s position . All the images obtained from subcostal . Normal left ventricular chamber size, systolic function and wall motion . Left ventricular ejection fraction estimated to be 50% No evidence of left ventricular hypertrophy. No evidence of pericardial effusion. All other cardiac chamber sizes are within normal limits. Aortic valve calcification with normal normal excursion . Mildly thickened mitral valve leaflets with normal excursion. Mild mitral annulus and aortic root calcification. Pulmonic valve not well visualized. IVC at size with physiologic collapse. A color flow and spectral Doppler study was performed and revealed: Moderate aortic insufficiency . Left ventricular diastolic function is not diagnostic due to arrythmia . Trace mitral regurgitation. Mild to moderate tricuspid regurgitation.
--- NOTE | 2019-01-28 13:50 | Diagnostic Imaging Report ---
Indication: Dyspnea Comparison: 01/26/2019 at 12:23 A single view chest radiograph was obtained. Findings: There is no change. Right jugular line, endotracheal tube and nasogastric tubes remain in good position. Lungs are hyperexpanded. Heart size is stable. IMPRESSION: No change from the earlier film
--- NOTE | 2019-01-28 13:57 | Diagnostic Imaging Report ---
Indication: Cough Comparison: 01/26/2019 A single view chest radiograph was obtained. Findings: Nasogastric tube, endotracheal tube and right jugular central venous catheter appear unchanged in good position. There is no infiltrate. The lungs are hyperexpanded. IMPRESSION: COPD. Tubes and lines satisfactory. No change
--- NOTE | 2019-01-28 14:00 | NUR ---
NURSE NOTES: Pt was placed back on Fentanyl drip at a starting rate of 10ml as the pt is observed to be very restless, frowning face, increasing HR and attempting to move extremities and sit up in bed. Pt is being closely monitored. monitor worker displays SR with heart rate in the low 90's.
--- NOTE | 2019-01-28 15:03 | General Progress Note ---
Assessment/Plan Assessment/Plan: s: Intubated. Vent setting reviewed PHYSICAL EXAMINATION: GENERAL: An elderly male, lying in bed, intubated on mechanical ventilation, not in acute distress. HEENT: Normocephalic and atraumatic. Pupils slightly responsive to light. Unable to assess oral mucosa with E-tube in place. NECK: Supple. No lymphadenopathy. CARDIOVASCULAR: He is tachycardic. S1, S2 normal. No murmur can be heard. LUNGS: Diminished breathing sounds at the bases. No wheezing or rhonchi. Normal breathing effort. Mechanically ventilated. ABDOMEN: Soft, nontender, and nondistended. Normal bowel sounds. No hepatosplenomegaly or ascites. No organomegaly. EXTREMITIES: No edema or cyanosis. labs: dated Jan 28 reviewed IMAGING: Chest x-ray dated January 26 is negative for any pneumothorax. Meds: reviewed and reconciled ASSESSMENT AND PLAN: 1. Vent dependent respiratory failure. 2. Chronic obstructive pulmonary disease, end-stage, oxygen-dependent. 3. Cardiopulmonary arrest, status post resuscitation x2. 4. Hypertension. 5. Abnormal blood sugar. 6. Anemia. 7. Abn Trop: likely secondary to #3 7. GI and DVT prophylaxis. PLAN OF CARE: Current Antibiotic management Notes from cardiology and ID reviewed Declining levels of troponin Subjective Allergies: Coded Allergies: No Known Allergies (Unverified , 06/05/18) Objective Last 24 Hour Vital Signs Date Time Temp Pulse Resp B/P (MAP) Pulse Ox O2 Delivery O2 Flow Rate FiO2 01/28/19 14:38 97.8 01/28/19 14:30 73 22 101/74 (83) 100 01/28/19 14:08 22 Mechanical Ventilator 100 01/28/19 14:00 73 22 110/75 (87) 100 01/28/19 13:07 76 22 30 01/28/19 13:00 75 22 106/78 (87) 100 01/28/19 12:30 78 22 130/86 (101) 100 01/28/19 12:00 76 22 106/76 (86) 100 01/28/19 12:00 30 01/28/19 12:00 78 01/28/19 12:00 Mechanical Ventilator 01/28/19 11:00 79 22 123/84 (97) 100 01/28/19 10:37 Mechanical Ventilator 01/28/19 10:37 85 22 30 01/28/19 10:37 Mechanical Ventilator 30 01/28/19 10:00 87 22 126/81 (96) 99 01/28/19 09:37 115 24 30 01/28/19 09:27 76 13 30 30 01/28/19 09:00 83 14 129/84 (99) 95 01/28/19 08:30 86 15 127/90 (102) 95 01/28/19 08:00 86 01/28/19 08:00 97.8 89 14 137/87 (104) 96 01/28/19 08:00 Mechanical Ventilator 01/28/19 08:00 30 01/28/19 07:59 100 01/28/19 07:48 88 12 30 30 01/28/19 07:00 81 22 96/74 (81) 100 01/28/19 06:55 76 22 100 Mechanical Ventilator 30 01/28/19 06:54 74 22 30 01/28/19 06:50 76 22 100 Mechanical Ventilator 30 01/28/19 06:00 78 22 104/75 (85) 99 01/28/19 05:20 80 22 30 01/28/19 05:00 81 22 113/84 (94) 98 01/28/19 04:00 30 01/28/19 04:00 Mechanical Ventilator 01/28/19 04:00 81 01/28/19 04:00 99.3 78 22 116/80 (92) 97 01/28/19 03:30 69 22 100 Mechanical Ventilator 30 01/28/19 03:19 69 22 30 01/28/19 03:19 69 22 100 Mechanical Ventilator 30 01/28/19 03:00 22 Mechanical Ventilator 30 01/28/19 03:00 66 19 109/86 (94) 100 01/28/19 02:00 68 12 95/72 (80) 100 01/28/19 02:00 22 Mechanical Ventilator 30 01/28/19 01:00 79 20 138/87 (104) 100 01/28/19 01:00 22 Mechanical Ventilator 30 01/28/19 00:58 75 22 30 01/28/19 00:00 30 01/28/19 00:00 71 01/28/19 00:00 Mechanical Ventilator 01/28/19 00:00 22 Mechanical Ventilator 30 01/28/19 00:00 98.9 73 22 117/71 (86) 96 01/27/19 23:00 77 22 111/75 (87) 100 01/27/19 23:00 22 Mechanical Ventilator 30 01/27/19 22:59 74 22 100 Mechanical Ventilator 30 01/27/19 22:53 69 22 30 01/27/19 22:50 69 14 100 Mechanical Ventilator 30 01/27/19 22:04 22 Mechanical Ventilator 30 01/27/19 22:00 73 20 129/79 (96) 100 01/27/19 21:00 90 20 116/75 (89) 100 01/27/19 20:50 90 24 30 01/27/19 20:00 30 01/27/19 20:00 72 01/27/19 20:00 Mechanical Ventilator 01/27/19 20:00 98.3 73 22 120/78 (92) 100 01/27/19 19:11 72 23 100 Mechanical Ventilator 30 01/27/19 19:03 71 22 100 Mechanical Ventilator 30 01/27/19 19:01 70 22 30 01/27/19 19:00 72 22 122/78 (93) 100 01/27/19 18:00 70 26 114/75 (88) 100 01/27/19 17:58 71 22 30 01/27/19 17:00 71 26 118/78 (91) 100 01/27/19 16:30 91 26 30 01/27/19 16:00 30 01/27/19 16:00 97.9 01/27/19 16:00 70 01/27/19 16:00 Mechanical Ventilator 01/27/19 16:00 83 25 118/70 (86) 100 Intake and Output 01/27/19 01/28/19 19:00 07:00 Intake Total 1442.66 ml 2013.0 ml Output Total 420 ml 575 ml Balance 1022.66 ml 1438.0 ml Intake IV Total 1442.66 ml 2013.0 ml Output Urine Total 420 ml 575 ml # Bowel Movements 1 Laboratory Tests 01/27/19 17:30: Prothrombin Time 10.8, Prothromb Time International Ratio 1.0, Iron Level 23L, Total Iron Binding Capacity 183L, Percent Iron Saturation 13L, Unsaturated Iron Binding 160, Ferritin 493H, Carcinoembryonic Antigen [Pending] 01/27/19 20:15: Lactic Acid Level 2.70H 01/27/19 23:00: Lactic Acid Level 1.90 01/28/19 04:00: Lactic Acid Level 2.60H, White Blood Count 16.4H, Red Blood Count 3.43L, Hemoglobin 10.3L, Hematocrit 32.9L, Mean Corpuscular Volume 96, Mean Corpuscular Hemoglobin 30.1, Mean Corpuscular Hemoglobin Concent 31.5L, Red Cell Distribution Width 15.2H, Platelet Count 127L, Mean Platelet Volume 8.2, Neutrophils (%) (Auto) , Lymphocytes (%) (Auto) , Monocytes (%) (Auto) , Eosinophils (%) (Auto) , Basophils (%) (Auto) , Differential Total Cells Counted 100, Neutrophils % (Manual) 91H, Lymphocytes % (Manual) 3L, Monocytes % (Manual) 6, Eosinophils % (Manual) 0, Basophils % (Manual) 0, Band Neutrophils 0 , Platelet Estimate DecreasedL, Platelet Morphology Normal, Hypochromasia 1+, Anisocytosis 1+, Sodium Level 141, Potassium Level 4.4, Chloride Level 105, Carbon Dioxide Level 32, Anion Gap 4L, Blood Urea Nitrogen 25H, Creatinine 0.9, Estimat Glomerular Filtration Rate , Glucose Level 138H, Calcium Level 8.4L, Total Bilirubin 0.7, Aspartate Amino Transf (AST/SGOT) 41H, Alanine Aminotransferase (ALT/SGPT) 47, Alkaline Phosphatase 54, Troponin I 0.309H, Total Protein 5.9L, Albumin 2.8L, Globulin 3.1, Albumin/Globulin Ratio 0.9L 01/28/19 05:30: Lactic Acid Level 1.70 Height (Feet): 5 Height (Inches): 10.00 Weight (Pounds): 135 Brianne Henry MD Jan 28, 2019 15:03
--- NOTE | 2019-01-28 15:44 | Infectious Diseases Prog Note ---
Assessment/Plan Problems: (1) Leukocytosis Assessment & Plan: rule out sepsis, await blood culture x2, repeated CXR ruled out aspiration or new infiltrates . continue vancomycin and zosyn empirically for now pending final cultures (2) Acute exacerbation of chronic obstructive pulmonary disease (COPD) Assessment & Plan: continue doxycycline and nebulizer treatment as per pulmonary (3) Cardiac arrest Assessment & Plan: etiology ? cardiology eval to rule out cardiac sources and neurology eval to evaluate his brain condition and to rule out anoxic brain injury (4) Chronic hypercapnic respiratory failure Assessment & Plan: S/P cardiac arrest , S/P intubation, monitor in ICU, pulmonary is following Subjective ROS Limited/Unobtainable: Yes Allergies: Coded Allergies: No Known Allergies (Unverified , 06/05/18) Subjective He is still intubated on mechanical ventilation, more awake and responsive today , trying to set up in bed, not febrile. Objective Vital Signs Last 24 Hour Vital Signs Date Time Temp Pulse Resp B/P (MAP) Pulse Ox O2 Delivery O2 Flow Rate FiO2 01/28/19 15:31 75 22 100 Mechanical Ventilator 30 01/28/19 15:20 70 22 30 01/28/19 15:20 74 22 100 Mechanical Ventilator 30 01/28/19 15:00 72 22 96/75 (82) 100 01/28/19 14:38 97.8 01/28/19 14:30 73 22 101/74 (83) 100 01/28/19 14:08 22 Mechanical Ventilator 100 01/28/19 14:00 73 22 110/75 (87) 100 01/28/19 13:07 76 22 30 01/28/19 13:00 75 22 106/78 (87) 100 01/28/19 12:30 78 22 130/86 (101) 100 01/28/19 12:00 97.9 76 22 106/76 (86) 100 01/28/19 12:00 30 01/28/19 12:00 78 01/28/19 12:00 Mechanical Ventilator 01/28/19 11:00 79 22 123/84 (97) 100 01/28/19 10:37 Mechanical Ventilator 01/28/19 10:37 85 22 30 01/28/19 10:37 Mechanical Ventilator 30 01/28/19 10:00 87 22 126/81 (96) 99 01/28/19 09:37 115 24 30 01/28/19 09:27 76 13 30 30 01/28/19 09:00 83 14 129/84 (99) 95 01/28/19 08:30 86 15 127/90 (102) 95 01/28/19 08:00 86 01/28/19 08:00 97.8 89 14 137/87 (104) 96 01/28/19 08:00 Mechanical Ventilator 01/28/19 08:00 30 01/28/19 07:59 100 01/28/19 07:48 88 12 30 30 01/28/19 07:00 81 22 96/74 (81) 100 01/28/19 06:55 76 22 100 Mechanical Ventilator 30 01/28/19 06:54 74 22 30 01/28/19 06:50 76 22 100 Mechanical Ventilator 30 01/28/19 06:00 78 22 104/75 (85) 99 01/28/19 05:20 80 22 30 01/28/19 05:00 81 22 113/84 (94) 98 01/28/19 04:00 30 01/28/19 04:00 Mechanical Ventilator 01/28/19 04:00 81 01/28/19 04:00 99.3 78 22 116/80 (92) 97 01/28/19 03:30 69 22 100 Mechanical Ventilator 30 01/28/19 03:19 69 22 30 01/28/19 03:19 69 22 100 Mechanical Ventilator 30 01/28/19 03:00 22 Mechanical Ventilator 30 01/28/19 03:00 66 19 109/86 (94) 100 01/28/19 02:00 68 12 95/72 (80) 100 01/28/19 02:00 22 Mechanical Ventilator 30 01/28/19 01:00 79 20 138/87 (104) 100 01/28/19 01:00 22 Mechanical Ventilator 30 01/28/19 00:58 75 22 30 01/28/19 00:00 30 01/28/19 00:00 71 01/28/19 00:00 Mechanical Ventilator 01/28/19 00:00 22 Mechanical Ventilator 30 01/28/19 00:00 98.9 73 22 117/71 (86) 96 01/27/19 23:00 77 22 111/75 (87) 100 01/27/19 23:00 22 Mechanical Ventilator 30 01/27/19 22:59 74 22 100 Mechanical Ventilator 30 01/27/19 22:53 69 22 30 01/27/19 22:50 69 14 100 Mechanical Ventilator 30 01/27/19 22:04 22 Mechanical Ventilator 30 01/27/19 22:00 73 20 129/79 (96) 100 01/27/19 21:00 90 20 116/75 (89) 100 01/27/19 20:50 90 24 30 01/27/19 20:00 30 01/27/19 20:00 72 01/27/19 20:00 Mechanical Ventilator 01/27/19 20:00 98.3 73 22 120/78 (92) 100 01/27/19 19:11 72 23 100 Mechanical Ventilator 30 01/27/19 19:03 71 22 100 Mechanical Ventilator 30 01/27/19 19:01 70 22 30 01/27/19 19:00 72 22 122/78 (93) 100 01/27/19 18:00 70 26 114/75 (88) 100 01/27/19 17:58 71 22 30 01/27/19 17:00 71 26 118/78 (91) 100 01/27/19 16:30 91 26 30 01/27/19 16:00 30 01/27/19 16:00 97.9 01/27/19 16:00 70 01/27/19 16:00 Mechanical Ventilator 01/27/19 16:00 83 25 118/70 (86) 100 Height (Feet): 5 Height (Inches): 10.00 Weight (Pounds): 135 General Appearance: WD/WN, no acute distress HEENT: normocephalic, atraumatic, anicteric, mucous membranes moist, PERRL Respiratory/Chest: chest wall non-tender, lungs clear, normal breath sounds, no respiratory distress, no accessory muscle use Cardiovascular: normal peripheral pulses, normal rate, regular rhythm, no gallop/murmur, no JVD Abdomen: normal bowel sounds, soft, non tender, no organomegaly, non distended , no mass, no scars Extremities: no cyanosis, no clubbing Skin: no rash, no lesions, ulcers Neurologic/Psychiatric: alert, responsive Lymphatic: no neck adenopathy, no groin adenopathy Musculoskeletal: normal muscle bulk, no effusion Microbiology Date/Time Source Procedure Growth Status 01/26/19 05:45 Blood Blood Culture - Preliminary NO GROWTH AFTER 48 HOURS Resulted 01/26/19 05:30 Blood Blood Culture - Preliminary NO GROWTH AFTER 48 HOURS Resulted 01/27/19 01:50 Sputum Gram Stain - Final Resulted 01/27/19 01:50 Sputum Culture - Preliminary Gram Negative Bacillus 1 Usual Respiratory Matilde Resulted 01/26/19 07:00 Nose MRSA Culture - Final NO METHICILLIN RESISTANT STAPH AUREUS... Complete 01/26/19 07:00 Rectum VRE Culture - Final NO VANCOMYCIN RESISTANT ENTEROCOCCUS ... Complete 01/26/19 07:00 Rectum Received Laboratory Tests Test 01/27/19 17:30 01/27/19 20:15 01/27/19 23:00 01/28/19 04:00 Prothrombin Time 10.8 SEC (9.30-11.50) Prothromb Time International Ratio 1.0 (0.9-1.1) Iron Level 23 ug/dL (50-175) L Total Iron Binding Capacity 183 ug/dL (250-450) L Percent Iron Saturation 13 % (15-50) L Unsaturated Iron Binding 160 ug/dL (112-346) Ferritin 493 NG/ML (8-388) H Carcinoembryonic Antigen Pending Lactic Acid Level 2.70 mmol/L (0.4-2.0) H 1.90 mmol/L (0.66-2.22) 2.60 mmol/L (0.4-2.0) H White Blood Count 16.4 K/UL (4.8-10.8) H Red Blood Count 3.43 M/UL (4.70-6.10) L Hemoglobin 10.3 G/DL (14.2-18.0) L Hematocrit 32.9 % (42.0-52.0) L Mean Corpuscular Volume 96 FL (80-99) Mean Corpuscular Hemoglobin 30.1 PG (27.0-31.0) Mean Corpuscular Hemoglobin Concent 31.5 G/DL (32.0-36.0) L Red Cell Distribution Width 15.2 % (11.6-14.8) H Platelet Count 127 K/UL (150-450) L Mean Platelet Volume 8.2 FL (6.5-10.1) Neutrophils (%) (Auto) % (45.0-75.0) Lymphocytes (%) (Auto) % (20.0-45.0) Monocytes (%) (Auto) % (1.0-10.0) Eosinophils (%) (Auto) % (0.0-3.0) Basophils (%) (Auto) % (0.0-2.0) Differential Total Cells Counted 100 Neutrophils % (Manual) 91 % (45-75) H Lymphocytes % (Manual) 3 % (20-45) L Monocytes % (Manual) 6 % (1-10) Eosinophils % (Manual) 0 % (0-3) Basophils % (Manual) 0 % (0-2) Band Neutrophils 0 % (0-8) Platelet Estimate Decreased L Platelet Morphology Normal Hypochromasia 1+ Anisocytosis 1+ Sodium Level 141 MMOL/L (136-145) Potassium Level 4.4 MMOL/L (3.5-5.1) Chloride Level 105 MMOL/L (98-107) Carbon Dioxide Level 32 MMOL/L (21-32) Anion Gap 4 mmol/L (5-15) L Blood Urea Nitrogen 25 mg/dL (7-18) H Creatinine 0.9 MG/DL (0.55-1.30) Estimat Glomerular Filtration Rate mL/min (>60) Glucose Level 138 MG/DL (74-106) H Calcium Level 8.4 MG/DL (8.5-10.1) L Total Bilirubin 0.7 MG/DL (0.2-1.0) Aspartate Amino Transf (AST/SGOT) 41 U/L (15-37) H Alanine Aminotransferase (ALT/SGPT) 47 U/L (12-78) Alkaline Phosphatase 54 U/L (46-116) Troponin I 0.309 ng/mL (0.000-0.056) Total Protein 5.9 G/DL (6.4-8.2) L Albumin 2.8 G/DL (3.4-5.0) L Globulin 3.1 g/dL Albumin/Globulin Ratio 0.9 (1.0-2.7) L Test 01/28/19 05:30 Lactic Acid Level 1.70 mmol/L (0.66-2.22) Current Medications Medications (Trade) Dose Ordered Sig/Brittani Route PRN Reason Start Time Stop Time Status Last Admin Dose Admin Acetaminophen (Tylenol) 650 mg Q4H PRN NG FOR MILD PAIN 01/26/19 10:15 02/25/19 10:14 Albuterol/ Ipratropium (Albuterol/ Ipratropium) 3 ml Q4HRT HHN 01/26/19 11:00 01/31/19 10:59 01/28/19 15:30 Chlorhexidine Gluconate (Renetta-Hex 2%) 1 applic DAILY@2000 TOPIC 01/27/19 20:00 02/26/19 19:59 01/27/19 20:23 Dextrose (Dextrose 50%) 25 ml Q30M PRN IV Hypoglycemia 01/26/19 10:30 02/25/19 10:29 Dextrose (Dextrose 50%) 50 ml Q30M PRN IV Hypoglycemia 01/26/19 10:30 02/25/19 10:29 Dextrose/Sodium Chloride 1,000 ml @ 100 mls/hr Q10H IV 01/26/19 14:15 02/25/19 14:14 01/28/19 05:11 Doxycycline Hyclate 100 mg/ Dextrose 110 ml @ 110 mls/hr Q12HR IV 01/26/19 11:00 02/02/19 10:59 01/28/19 10:01 Fentanyl Citrate 1000 mcg/Sodium Chloride 100 ml @ 0 mls/hr Q24H IV 01/26/19 10:27 02/02/19 10:26 01/28/19 14:08 Heparin Sodium (Porcine) (Heparin 5000 units/ml) 5,000 units EVERY 12 HOURS SUBQ 01/26/19 11:00 02/25/19 10:59 01/28/19 10:02 Insulin Aspart (NovoLOG) Q6HR SUBQ 01/26/19 12:00 02/25/19 11:59 01/26/19 17:36 Ketorolac Tromethamine (Toradol 30mg) 30 mg BIDPRN PRN IV FOR MODERATE PAIN 01/26/19 10:15 01/31/19 10:14 Lorazepam (Ativan 2mg/ml 1ml) 1 mg Q1H PRN IV AGITATION / SEIZURE 01/26/19 18:30 02/02/19 18:29 01/28/19 12:34 Methylprednisolone Sodium Succinate (Solu-MEDROL) 60 mg EVERY 8 HOURS IVP 01/26/19 14:00 02/25/19 13:59 01/28/19 14:07 Morphine Sulfate (Morphine Sulfate) 2 mg Q8H PRN IVP FOR SEVERE PAIN 01/26/19 10:15 02/02/19 10:14 01/27/19 20:22 Pantoprazole (Protonix) 40 mg DAILY IVP 01/26/19 11:00 02/25/19 10:59 01/28/19 10:01 Piperacillin Sod/ Tazobactam Sod 3.375 gm/Sodium Chloride 110 ml @ 27.5 mls/hr EVERY 8 HOURS IVPB 01/27/19 20:00 02/01/19 19:59 01/28/19 14:07 Sodium Chloride 500 ml @ 998.89 mls/ hr Q4H PRN IVPB MAP<60 01/26/19 10:15 02/25/19 10:14 Vancomycin HCl (Vanco rx to dose) 1 ea DAILY PRN MISC Per rx protocol 01/27/19 18:30 02/26/19 18:29 Vancomycin HCl 750 mg/Sodium Chloride 275 ml @ 183.333 mls/hr Q12HR IVPB 01/28/19 09:00 02/02/19 08:59 01/28/19 10:01 [place] Orlando M.D. Jan 28, 2019 15:44
--- NOTE | 2019-01-28 16:06 | NUR ---
NURSE NOTES: Pt's son is at bedside. VS stable. Pt is on light sedation -2 on RASS score while maintained on Fentanyl drip. Pt has been repositioned. Remains afebrile.
--- NOTE | 2019-01-28 18:00 | NUR ---
NURSE NOTES: Fentanyl drip is titrated to 250mcg/hr to maintain RASS score of -2 light sedation. Family member is at bedside. Pt has been repositioned with bilateral extremities elevated on pillows.
--- NOTE | 2019-01-28 19:00 | NUR ---
NURSE NOTES: I removed Ativan from the pyxis and wasted the appropriate amount while witnessed and signed by Beverly ROYAL (1mg was wasted). Then I walked into the pt's room, however never gave the ativan because instead I increased the dose of Fentanyl drip. The remaining Ativan dose was wasted and witnessed by Raulito ROYAL (Total of 1 vial 2mg was wasted which is the exact amount I had removed from the pyxis). Spoke with pharmacist Bernardo.
--- NOTE | 2019-01-28 19:13 | NUR ---
HAND-OFF: Report given to Melvin ROYAL. VS stable. Endorsed plan of care.
--- NOTE | 2019-01-28 20:00 | NUR ---
NURSE NOTES: Patient received from Lilia ROYAL. Patient currently orally intubated ETT 8.0/23 AC 22/500tv/30%fio2/5peep. Spo2 100% 118/83, HR 65NSR. Bilateral soft wrist restraints. D5NS @100ml/hr. Fentanyl gtt at 250mcg. Patient continues to be restless and agitated. Bed in lowest positioned and bed locked.
[2019-01-28] MEDS: Dyna-Hex 2% Top Sol 2oz TOPIC SCH (20:14)
[2019-01-28] MEDS: Morphine Sulfate 2mg/ml Inj(IV/IM USE ONLY) IVP PRN (20:15)
[2019-01-28] MEDS: Vancomycin 1 GM in NS 275 ML IVPB SCH (21:52)
--- NOTE | 2019-01-28 22:00 | Pulmonolgy Critical Care Note ---
Critical Care - Asmt/Plan Assessment/Plan: Pulmonary Critical Care Progress Note HPI Patient is a 73 year olf man with previous history of COPD, CHF, HTN, DM admitted with extreme respiratory distress, intubated in the ED, subsequent Cardiac Arrest. Noted to have hypercapneic respiratory failure. Interactive today, improved ventilator requirements, did not tolerate weaning today CT Head negative Allergies: No Known Allergies Past Medical History: COPD/Asthma, CHF, Hypertension, DM All Other Systems: limited Physical Exam Vital signs noted General Appearance: sedated on ventilator Head: normocephalic, atraumatic Eyes: bilateral eye PERRL, bilateral eye EOMI ENT: moist mm, no LN Neck: supple Respiratory: generally reduced BS, occasional wheeze Cardiovascular: tachycardia, HS1, HS2, RRR Gastrointestinal: non tender, soft Musculoskeletal: normal inspection Neurologic: sedated on ventilator Skin: no rash, palpation normal Impression: COPD exacerbation Hypercapneic respiratory failure S/p cardiac arrest in the ED CHF HTN Diabetes Plan Wean as tolerated Adjust FIO2 for sats 90-94% HHN Q4 IV Solumedrol Sedation PRN Sz management Monitor labs PPX IV Doxycycline DNR status Labs Test 01/26/19 05:45 White Blood Count 9.6 K/UL (4.8-10.8) Red Blood Count 4.57 M/UL (4.70-6.10) Hemoglobin 13.5 G/DL (14.2-18.0) Hematocrit 46.0 % (42.0-52.0) Mean Corpuscular Volume 101 FL (80-99) Mean Corpuscular Hemoglobin 29.6 PG (27.0-31.0) Mean Corpuscular Hemoglobin Concent 29.4 G/DL (32.0-36.0) Red Cell Distribution Width 15.2 % (11.6-14.8) Platelet Count 181 K/UL (150-450) Mean Platelet Volume 7.5 FL (6.5-10.1) Neutrophils (%) (Auto) 49.7 % (45.0-75.0) Lymphocytes (%) (Auto) 33.3 % (20.0-45.0) Monocytes (%) (Auto) 8.2 % (1.0-10.0) Eosinophils (%) (Auto) 8.2 % (0.0-3.0) Basophils (%) (Auto) 0.7 % (0.0-2.0) Lactic Acid Level 0.80 mmol/L (0.4-2.0) Chest X-Ray: No consolidation, no effusion, ETT tube 7cm, RIJ line good position Critical Care - Objective Last 24 Hour Vital Signs Date Time Temp Pulse Resp B/P (MAP) Pulse Ox O2 Delivery O2 Flow Rate FiO2 01/28/19 21:00 22 Mechanical Ventilator 30 01/28/19 20:55 75 22 30 01/28/19 20:50 22 30 01/28/19 20:00 22 Mechanical Ventilator 30 01/28/19 19:00 72 21 99 Mechanical Ventilator 30 01/28/19 19:00 20 Mechanical Ventilator 100 01/28/19 19:00 64 22 111/76 (88) 100 01/28/19 18:53 67 22 98 Mechanical Ventilator 30 01/28/19 18:52 68 22 30 01/28/19 18:00 22 Mechanical Ventilator 100 01/28/19 18:00 70 22 118/85 (96) 97 01/28/19 17:18 67 22 30 01/28/19 17:00 68 22 99/71 (80) 98 01/28/19 17:00 20 Mechanical Ventilator 100 01/28/19 16:00 Mechanical Ventilator 01/28/19 16:00 74 01/28/19 16:00 30 01/28/19 16:00 20 Mechanical Ventilator 100 01/28/19 16:00 97.9 68 22 105/74 (84) 99 01/28/19 15:31 75 22 100 Mechanical Ventilator 30 01/28/19 15:20 70 22 30 01/28/19 15:20 74 22 100 Mechanical Ventilator 30 01/28/19 15:00 20 Mechanical Ventilator 100 01/28/19 15:00 72 22 96/75 (82) 100 01/28/19 14:38 97.8 01/28/19 14:30 73 22 101/74 (83) 100 01/28/19 14:08 22 Mechanical Ventilator 100 01/28/19 14:00 73 22 110/75 (87) 100 01/28/19 13:07 76 22 30 01/28/19 13:00 75 22 106/78 (87) 100 01/28/19 12:30 78 22 130/86 (101) 100 01/28/19 12:00 97.9 76 22 106/76 (86) 100 01/28/19 12:00 30 01/28/19 12:00 78 01/28/19 12:00 Mechanical Ventilator 01/28/19 11:00 79 22 123/84 (97) 100 01/28/19 10:37 Mechanical Ventilator 01/28/19 10:37 85 22 30 01/28/19 10:37 Mechanical Ventilator 30 01/28/19 10:00 87 22 126/81 (96) 99 01/28/19 09:37 115 24 30 01/28/19 09:27 76 13 30 30 01/28/19 09:00 83 14 129/84 (99) 95 01/28/19 08:30 86 15 127/90 (102) 95 01/28/19 08:00 86 01/28/19 08:00 97.8 89 14 137/87 (104) 96 01/28/19 08:00 Mechanical Ventilator 01/28/19 08:00 30 01/28/19 07:59 100 01/28/19 07:48 88 12 30 30 01/28/19 07:00 81 22 96/74 (81) 100 01/28/19 06:55 76 22 100 Mechanical Ventilator 30 01/28/19 06:54 74 22 30 01/28/19 06:50 76 22 100 Mechanical Ventilator 30 01/28/19 06:00 78 22 104/75 (85) 99 01/28/19 05:20 80 22 30 01/28/19 05:00 81 22 113/84 (94) 98 01/28/19 04:00 30 01/28/19 04:00 Mechanical Ventilator 01/28/19 04:00 81 01/28/19 04:00 99.3 78 22 116/80 (92) 97 01/28/19 03:30 69 22 100 Mechanical Ventilator 30 01/28/19 03:19 69 22 30 01/28/19 03:19 69 22 100 Mechanical Ventilator 30 01/28/19 03:00 22 Mechanical Ventilator 30 01/28/19 03:00 66 19 109/86 (94) 100 01/28/19 02:00 68 12 95/72 (80) 100 01/28/19 02:00 22 Mechanical Ventilator 30 01/28/19 01:00 79 20 138/87 (104) 100 01/28/19 01:00 22 Mechanical Ventilator 30 01/28/19 00:58 75 22 30 01/28/19 00:00 30 01/28/19 00:00 71 01/28/19 00:00 Mechanical Ventilator 01/28/19 00:00 22 Mechanical Ventilator 30 01/28/19 00:00 98.9 73 22 117/71 (86) 96 01/27/19 23:00 77 22 111/75 (87) 100 01/27/19 23:00 22 Mechanical Ventilator 30 01/27/19 22:59 74 22 100 Mechanical Ventilator 30 01/27/19 22:53 69 22 30 01/27/19 22:50 69 14 100 Mechanical Ventilator 30 01/27/19 22:04 22 Mechanical Ventilator 30 01/27/19 22:00 73 20 129/79 (96) 100 Micro: Microbiology Date/Time Source Procedure Growth Status 01/26/19 05:45 Blood Blood Culture - Preliminary NO GROWTH AFTER 48 HOURS Resulted 01/26/19 05:30 Blood Blood Culture - Preliminary NO GROWTH AFTER 48 HOURS Resulted 01/27/19 01:50 Sputum Gram Stain - Final Resulted 01/27/19 01:50 Sputum Culture - Preliminary Gram Negative Bacillus 1 Usual Respiratory Matilde Resulted 01/26/19 07:00 Nose MRSA Culture - Final NO METHICILLIN RESISTANT STAPH AUREUS... Complete 01/26/19 07:00 Rectum VRE Culture - Final NO VANCOMYCIN RESISTANT ENTEROCOCCUS ... Complete 01/26/19 07:00 Rectum Received Accucheck: 113 Critical Care - Subjective ROS Limited/Unobtainable: No Condition: improving IV Access: central FI02: 30 Vent Support Breath Rate: 22 Vent Support Mode: AC Vent Tidal Volume: 500 Sputum Amount: Small PEEP: 5.0 PIP: 36 I&O: Intake and Output 01/27/19 01/28/19 18:59 06:59 Intake Total 1459.32 ml 1985.5 ml Output Total 465 ml 555 ml Balance 994.32 ml 1430.5 ml Intake IV Total 1459.32 ml 1985.5 ml Output Urine Total 465 ml 555 ml # Bowel Movements 1 ET-Tube: 8.0 ET Position: 25 Johny White MD Jan 28, 2019 22:00
--- NOTE | 2019-01-28 22:00 | NUR ---
NURSE NOTES: Repositioned patient and gave oral care. All due meds given. Patients vitals remains stable.
--- NOTE | 2019-01-28 22:30 | NUR ---
NURSE NOTES: Patient agitated at times but is alert and oriented. Patient is able to follow commands. Vitals are stable.
[2019-01-29] VITALS (46 sets, daily range): BP systolic 84–180; BP diastolic 51–101
--- NOTE | 2019-01-29 | NUR ---
NURSE NOTES: Repositioned patient and provided oral care. Patient is awake and watching television. Fentanyl gtt is on hold for now. No acute distress at this time. No BM. 124/85, HR 74 NSR, afebrile, Spo2 100%. Will continue to monitor.
--- NOTE | 2019-01-29 02:00 | Progress Note ---
DATE: 01/28/2019 CARDIOLOGY PROGRESS NOTE SUBJECTIVE: The patient remains critical and with guarded prognosis. He is in the intensive care unit. He remains intubated following the cardiac arrest and mechanically ventilated. He is off pressors. OBJECTIVE: VITAL SIGNS: Blood pressure parameters 156/96, heart rate 84, respiratory rate 16, afebrile. LUNGS: Coarse breath sounds. Scattered rhonchi. Orally intubated. Thin secretions. CARDIAC: Regular rhythm and rate. Normal S1, S2 with a fourth heart sound. ABDOMEN: Soft, nontender. EXTREMITIES: No edema. LABORATORY DATA: White count , hemoglobin 10.3. Lactic acid has decreased to 1.7. Troponin is 0.309. BUN 25, creatinine 0.9. Albumin 2.8. Potassium 4.4. IMPRESSION: 1. Status post full arrest. 2. Acute myocardial infarction. 3. Lactic acidosis, resolved. 4. Moderate protein-calorie malnutrition. 5. Respiratory failure. 6. COPD exacerbation. 7. Iron deficiency anemia. Anemia of chronic disease. 8. Hypomagnesemia. PLAN: 1. Steroid taper. 2. Bronchodilators, antimicrobials. 3. Potassium and magnesium replacement as needed. 4. Protein supplement by feeding tube. 5. Add anti-platelet therapy if no active bleeding. 6. Not a candidate for beta-blockers due to severity of lung disease. Johny Jimenez M.D. DR: TAMIKO JOB#: [id number] CC:
--- NOTE | 2019-01-29 02:00 | NUR ---
NURSE NOTES: Patient awake, alert and somewhat oriented. Patient able to follow simple commands. Patient was repositioned and suctioned. Vitals are stable, afebrile. Will continue to monitor.
[2019-01-29] MEDS: Albuterol/Ipratropium 3ml neb HHN SCH ×6 (02:55→23:11)
[2019-01-29] MEDS: D5NS 1,000 ML IV SCH ×3 (04:00→23:15)
--- NOTE | 2019-01-29 04:00 | NUR ---
NURSE NOTES: Patient awake and more agitated. Trying to remove ETT. Patient was suctioned and given oral care. R FA 20G and R AC 20G newly inserted.
[2019-01-29] MEDS: Solu-MEDROL 125mg Inj IVP SCH ×3 (05:10→20:59)
[2019-01-29] MEDS: Piperacillin/Tazobactam 3.375 GM in NS 110 ML IVPB SCH ×3 (05:11→22:03)
[2019-01-29 05:46] LABS: HEMATOCRIT 34.9 % (42.0-52.0); HEMOGLOBIN 10.6 G/DL (14.2-18.0); MEAN CORPUSCULAR VOLUME 98 FL (80-99); PLATELET COUNT 141 K/UL (150-450); RED BLOOD COUNT 3.57 M/UL (4.70-6.10); RED CELL DISTRIBUTION WIDTH 14.9 % (11.6-14.8); WHITE BLOOD COUNT 19.5 K/UL (4.8-10.8)
[2019-01-29] MEDS: NovoLOG Insulin Flexpen SUBQ SCH ×4 (06:00→23:37)
--- NOTE | 2019-01-29 06:00 | NUR ---
NURSE NOTES: Patient continues to be very agitated and non-compliant, non-cooperative. Patient trying to remove ETT. SpO2 remains at 100%. Suction patient, minimal secretions. BP stable. Reality reorientation provided.
[2019-01-29 06:25] LABS: ALANINE AMINOTRANSFERASE 49 U/L (12-78); ALBUMIN/GLOBULIN RATIO 0.9 (1.0-2.7); ANION GAP 5 mmol/L (5-15); ASPARTATE AMINO TRANSFERASE 42 U/L (15-37); BILIRUBIN,TOTAL 0.6 MG/DL (0.2-1.0); BLOOD UREA NITROGEN 31 mg/dL (7-18); CALCIUM 9.1 MG/DL (8.5-10.1); CARBON DIOXIDE 30 MMOL/L (21-32); CHLORIDE 109 MMOL/L (98-107); CREATININE 0.9 MG/DL (0.55-1.30); POTASSIUM 4.1 MMOL/L (3.5-5.1); SODIUM 144 MMOL/L (136-145)
[2019-01-29 06:50] LABS: ALKALINE PHOSPHATASE 53 U/L (46-116)
--- NOTE | 2019-01-29 07:00 | NUR ---
HAND-OFF: Report given to Esther ROYAL and Hayley ROYAL
--- NOTE | 2019-01-29 07:00 | NUR ---
RESPIRATORY NOTES: Received Patient on Vent settings ACVC 22, VT 500, Fio2 30%, PEEP +5. Patient currently intubated with 8.0 ETT at 25 cm lip line. Patient awake and extremely agitated. Breath sounds are bilateral diminished throughout both lung [place]. Suctioned small amount of clear secretions. Vent plugged into ed outlet. Alarms are on and audible. Will continue to monitor throughout the day.
--- NOTE | 2019-01-29 07:10 | NUR ---
RESPIRATORY NOTE: Weaning trial started at 0710. Weaning criteria passed, placed patient on PS +8, PEEP +5, FIO2 30%. Patient slightly agitated however we will proceed with the trial. GENNY heller. Will continue to closely monitor.
--- NOTE | 2019-01-29 07:30 | NUR ---
RESPIRATORY NOTES: Placed back onto ACVC due to agitation and desaturation.
--- NOTE | 2019-01-29 08:01 | NUR ---
NURSE NOTES: Patient received from GENNY Charles. Patient currently orally intubated ETT 8.0/ AC 22 VT 500 FiO2 30% Peep 5 and saturate at 100% .Afebrile at this time with bilateral soft wrist restraints, restraints release during repositioning and ski assessment done with no skin impairment.NPO at this time.NGT right nare.Bilateral lower extremities skin tear.Peripheral line RAC/RFA/20G running D5NS @100ml/hr. RIJ/TLC Fentanyl on hold for weaning. Bed in lowest positioned and bed locked. Call light within easy reach.
[2019-01-29] MEDS: Doxycycline Hyclate 100 MG in D5W 110 ML IV SCH ×2 (08:36→20:58)
[2019-01-29] MEDS: Pantoprazole Inj IVP SCH (08:37)
[2019-01-29] MEDS: Vancomycin 1 GM in NS 275 ML IVPB SCH ×2 (08:37→20:59)
[2019-01-29] MEDS: Heparin 5000 units/ml inj SUBQ SCH (08:38)
[2019-01-29] MEDS: Morphine Sulfate 2mg/ml Inj(IV/IM USE ONLY) IVP PRN (09:33)
[2019-01-29] MEDS: LORazepam Inj 2mg/ml 1ml IV PRN ×2 (09:33→23:31)
--- NOTE | 2019-01-29 10:03 | NUR ---
NURSE NOTES: Patient asleep, son at bed side,update given.Turned and repositioned,call light within easy reach.
--- NOTE | 2019-01-29 11:02 | General Progress Note ---
Assessment/Plan Assessment/Plan: s: Intubated. Vent setting reviewed PHYSICAL EXAMINATION: GENERAL: An elderly male, lying in bed, intubated on mechanical ventilation, not in acute distress. HEENT: Normocephalic and atraumatic. Pupils slightly responsive to light. Unable to assess oral mucosa with E-tube in place. NECK: Supple. No lymphadenopathy. CARDIOVASCULAR: He is tachycardic. S1, S2 normal. No murmur can be heard. LUNGS: Diminished breathing sounds at the bases. No wheezing or rhonchi. Normal breathing effort. Mechanically ventilated. ABDOMEN: Soft, nontender, and nondistended. Normal bowel sounds. No hepatosplenomegaly or ascites. No organomegaly. EXTREMITIES: No edema or cyanosis. labs: dated Jan 28 reviewed IMAGING: Chest x-ray dated January 26 is negative for any pneumothorax. Meds: reviewed and reconciled ASSESSMENT AND PLAN: 1. Vent dependent respiratory failure. 2. Chronic obstructive pulmonary disease, end-stage, oxygen-dependent. 3. Cardiopulmonary arrest, status post resuscitation x2. 4. Hypertension. 5. Abnormal blood sugar. 6. Anemia. 7. Abn Trop: likely secondary to #3 7. GI and DVT prophylaxis. PLAN OF CARE: Current Antibiotic management Notes from cardiology and ID reviewed Declining levels of troponin Worsening thrombocytopenia DC Heparin Subjective Allergies: Coded Allergies: No Known Allergies (Unverified , 06/05/18) Objective Last 24 Hour Vital Signs Date Time Temp Pulse Resp B/P (MAP) Pulse Ox O2 Delivery O2 Flow Rate FiO2 01/29/19 10:56 65 22 100 Mechanical Ventilator 30 01/29/19 10:54 64 22 30 01/29/19 10:47 64 22 100 Mechanical Ventilator 30 01/29/19 10:00 82 18 118/73 (88) 93 01/29/19 09:40 23 Mechanical Ventilator 01/29/19 09:00 83 17 112/82 (92) 98 01/29/19 08:40 100 01/29/19 08:40 77 22 30 01/29/19 08:00 Mechanical Ventilator 01/29/19 08:00 30 01/29/19 08:00 105 01/29/19 08:00 97.8 93 18 126/101 (109) 98 01/29/19 07:17 Mechanical Ventilator 01/29/19 07:17 Mechanical Ventilator 30 01/29/19 07:08 103 14 30 30 8/13/19 07:00 96 21 115/75 (88) 100 01/29/19 06:30 82 22 101/82 (88) 100 01/29/19 06:00 105 21 123/91 (102) 96 01/29/19 06:00 22 Mechanical Ventilator 30 01/29/19 05:30 111 17 180/88 (118) 100 01/29/19 05:18 72 22 30 01/29/19 05:11 22 Mechanical Ventilator 30 01/29/19 05:00 73 21 117/79 (92) 100 01/29/19 04:30 73 22 111/76 (88) 100 01/29/19 04:00 86 01/29/19 04:00 30 01/29/19 04:00 22 Mechanical Ventilator 30 01/29/19 04:00 99.3 85 22 116/72 (87) 100 01/29/19 04:00 Mechanical Ventilator 01/29/19 03:53 94 22 135/76 (95) 100 01/29/19 03:30 93 22 133/85 (101) 100 01/29/19 03:07 74 22 100 Mechanical Ventilator 30 01/29/19 03:00 22 Mechanical Ventilator 30 01/29/19 03:00 84 22 156/96 (116) 100 01/29/19 02:55 79 22 100 Mechanical Ventilator 30 01/29/19 02:54 78 22 30 01/29/19 02:30 70 22 137/84 (101) 100 01/29/19 02:00 71 22 130/84 (99) 100 01/29/19 02:00 22 Mechanical Ventilator 30 01/29/19 01:00 22 Mechanical Ventilator 30 01/29/19 01:00 75 22 127/86 (100) 100 01/29/19 00:45 83 22 30 01/29/19 00:00 Mechanical Ventilator 01/29/19 00:00 97.6 76 22 124/85 (98) 100 01/29/19 00:00 22 Mechanical Ventilator 30 01/29/19 00:00 30 01/29/19 00:00 73 01/28/19 23:30 78 22 135/87 (103) 98 01/28/19 23:02 78 22 100 Mechanical Ventilator 30 01/28/19 23:00 84 16 156/96 (116) 97 01/28/19 22:54 69 22 30 01/28/19 22:54 69 22 100 Mechanical Ventilator 30 01/28/19 22:30 70 22 115/83 (94) 100 01/28/19 22:00 67 22 112/80 (91) 100 01/28/19 22:00 22 Mechanical Ventilator 30 01/28/19 21:30 69 22 118/83 (95) 100 01/28/19 21:00 22 Mechanical Ventilator 30 01/28/19 21:00 73 22 137/89 (105) 100 01/28/19 20:55 75 22 30 01/28/19 20:50 22 30 01/28/19 20:30 90 22 165/95 (118) 100 01/28/19 20:00 30 01/28/19 20:00 66 01/28/19 20:00 22 Mechanical Ventilator 30 01/28/19 20:00 98.3 62 22 114/73 (87) 100 01/28/19 20:00 Mechanical Ventilator 01/28/19 19:30 66 22 119/75 (90) 100 01/28/19 19:00 72 21 99 Mechanical Ventilator 30 01/28/19 19:00 20 Mechanical Ventilator 100 01/28/19 19:00 64 22 111/76 (88) 100 01/28/19 18:53 67 22 98 Mechanical Ventilator 30 01/28/19 18:52 68 22 30 01/28/19 18:00 22 Mechanical Ventilator 100 01/28/19 18:00 70 22 118/85 (96) 97 01/28/19 17:18 67 22 30 01/28/19 17:00 68 22 99/71 (80) 98 01/28/19 17:00 20 Mechanical Ventilator 100 01/28/19 16:00 Mechanical Ventilator 01/28/19 16:00 74 01/28/19 16:00 30 01/28/19 16:00 20 Mechanical Ventilator 100 01/28/19 16:00 97.9 68 22 105/74 (84) 99 01/28/19 15:31 75 22 100 Mechanical Ventilator 30 01/28/19 15:20 70 22 30 01/28/19 15:20 74 22 100 Mechanical Ventilator 30 01/28/19 15:00 20 Mechanical Ventilator 100 01/28/19 15:00 72 22 96/75 (82) 100 01/28/19 14:38 97.8 01/28/19 14:30 73 22 101/74 (83) 100 01/28/19 14:08 22 Mechanical Ventilator 100 01/28/19 14:00 73 22 110/75 (87) 100 01/28/19 13:07 76 22 30 01/28/19 13:00 75 22 106/78 (87) 100 01/28/19 12:30 78 22 130/86 (101) 100 01/28/19 12:00 97.9 76 22 106/76 (86) 100 01/28/19 12:00 30 01/28/19 12:00 78 01/28/19 12:00 Mechanical Ventilator Intake and Output 01/28/19 01/29/19 19:00 07:00 Intake Total 1924.666 ml 1566.0 ml Output Total 425 ml 475 ml Balance 1499.666 ml 1091.0 ml Intake IV Total 1924.666 ml 1566.0 ml Output Urine Total 425 ml 475 ml Laboratory Tests 01/28/19 19:45: Vancomycin Level Trough 9.8 01/29/19 04:00: White Blood Count 19.5H, Red Blood Count 3.57L, Hemoglobin 10.6L, Hematocrit 34.9L, Mean Corpuscular Volume 98, Mean Corpuscular Hemoglobin 29.8, Mean Corpuscular Hemoglobin Concent 30.4L, Red Cell Distribution Width 14.9H, Platelet Count 141L, Mean Platelet Volume 8.7, Neutrophils (%) (Auto) , Lymphocytes (%) (Auto) , Monocytes (%) (Auto) , Eosinophils (%) (Auto) , Basophils (%) (Auto) , Differential Total Cells Counted 100, Neutrophils % ( Manual) 91H, Lymphocytes % (Manual) 5L, Monocytes % (Manual) 4, Eosinophils % ( Manual) 0, Basophils % (Manual) 0, Band Neutrophils 0, Platelet Estimate DecreasedL, Platelet Morphology Normal, Hypochromasia 1+, Sodium Level 144, Potassium Level 4.1, Chloride Level 109H, Carbon Dioxide Level 30, Anion Gap 5, Blood Urea Nitrogen 31H, Creatinine 0.9, Estimat Glomerular Filtration Rate , Glucose Level 113H, Calcium Level 9.1, Magnesium Level 2.1, Total Bilirubin 0.6 , Aspartate Amino Transf (AST/SGOT) 42H, Alanine Aminotransferase (ALT/SGPT) 49 , Alkaline Phosphatase 53, Pro-B-Type Natriuretic Peptide 467H, Total Protein 6.4, Albumin 3.0L, Globulin 3.4, Albumin/Globulin Ratio 0.9L Height (Feet): 5 Height (Inches): 10.00 Weight (Pounds): 135 Brianne Henry MD Jan 29, 2019 11:01
--- NOTE | 2019-01-29 12:09 | NUR ---
NURSE NOTES: Patient turned and repositioned.Mouth care done,HOB elevated to prevent aspiration.Call light within easy reach.Will continue to monitor
--- NOTE | 2019-01-29 13:34 | NUR ---
NURSE NOTES: Seen by Dr White,will follow up with new orders
--- NOTE | 2019-01-29 14:04 | NUR ---
NURSE NOTES: Patient turned and repositioned. HOB elevated to prevent aspiration.Call light within easy reach.
--- NOTE | 2019-01-29 14:11 | NUR ---
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 97.8 HR 61 RR 18 B/P 87/50 AC 22 TV 500 FIO2 30% PEEP 5 IS: IVF D5NS @ 100ML/HR VANCO IV ZOSYN IV DOXYCYCLINE IV PROTONIX IV SOLU MEDROL IV FENTANYL IV ICU STATUS
--- NOTE | 2019-01-29 16:19 | NUR ---
NURSE NOTES: Patient turned and repositioned,mouth care done,kept clean and dry, Fentanyl drip increase to 300mcg due to restlessness and agitation,will continue close monitoring
--- NOTE | 2019-01-29 17:10 | Pulmonolgy Critical Care Note ---
Critical Care - Asmt/Plan Assessment/Plan: Pulmonary Critical Care Progress Note HPI Patient is a 73 year olf man with previous history of COPD, CHF, HTN, DM admitted with extreme respiratory distress, intubated in the ED, subsequent Cardiac Arrest. Noted to have hypercapneic respiratory failure. Interactive today, improved ventilator requirements, did not tolerate weaning today CT Head negative Allergies: No Known Allergies Past Medical History: COPD/Asthma, CHF, Hypertension, DM All Other Systems: limited Physical Exam Vital signs noted General Appearance: sedated on ventilator Head: normocephalic, atraumatic Eyes: bilateral eye PERRL, bilateral eye EOMI ENT: moist mm, no LN Neck: supple Respiratory: generally reduced BS, occasional wheeze Cardiovascular: tachycardia, HS1, HS2, RRR Gastrointestinal: non tender, soft Musculoskeletal: normal inspection Neurologic: sedated on ventilator Skin: no rash, palpation normal Impression: COPD exacerbation Hypercapneic respiratory failure S/p cardiac arrest in the ED CHF HTN Diabetes Plan Wean as tolerated Adjust FIO2 for sats 90-94% HHN Q4 IV Solumedrol Sedation PRN Sz management Monitor labs PPX IV Doxycycline DNR status Labs Test 01/26/19 05:45 White Blood Count 9.6 K/UL (4.8-10.8) Red Blood Count 4.57 M/UL (4.70-6.10) Hemoglobin 13.5 G/DL (14.2-18.0) Hematocrit 46.0 % (42.0-52.0) Mean Corpuscular Volume 101 FL (80-99) Mean Corpuscular Hemoglobin 29.6 PG (27.0-31.0) Mean Corpuscular Hemoglobin Concent 29.4 G/DL (32.0-36.0) Red Cell Distribution Width 15.2 % (11.6-14.8) Platelet Count 181 K/UL (150-450) Mean Platelet Volume 7.5 FL (6.5-10.1) Neutrophils (%) (Auto) 49.7 % (45.0-75.0) Lymphocytes (%) (Auto) 33.3 % (20.0-45.0) Monocytes (%) (Auto) 8.2 % (1.0-10.0) Eosinophils (%) (Auto) 8.2 % (0.0-3.0) Basophils (%) (Auto) 0.7 % (0.0-2.0) Lactic Acid Level 0.80 mmol/L (0.4-2.0) Chest X-Ray: No consolidation, no effusion, ETT tube 7cm, RIJ line good position Critical Care - Objective Last 24 Hour Vital Signs Date Time Temp Pulse Resp B/P (MAP) Pulse Ox O2 Delivery O2 Flow Rate FiO2 01/29/19 16:35 21 Mechanical Ventilator 01/29/19 16:00 30 01/29/19 16:00 79 01/29/19 16:00 97.5 61 18 111/70 (84) 98 01/29/19 16:00 Mechanical Ventilator 01/29/19 15:27 75 22 100 Mechanical Ventilator 30 01/29/19 15:25 64 22 30 01/29/19 15:17 74 22 100 Mechanical Ventilator 30 01/29/19 15:00 68 18 94/51 (65) 99 01/29/19 14:00 69 18 99/59 (72) 99 01/29/19 13:00 65 18 94/56 (69) 98 01/29/19 12:51 62 22 30 01/29/19 12:00 Mechanical Ventilator 01/29/19 12:00 30 01/29/19 12:00 63 01/29/19 12:00 97.8 61 18 94/59 (71) 98 01/29/19 11:00 82 18 87/78 (81) 98 01/29/19 10:56 65 22 100 Mechanical Ventilator 30 01/29/19 10:54 64 22 30 01/29/19 10:47 64 22 100 Mechanical Ventilator 30 01/29/19 10:03 97.8 01/29/19 10:03 97.8 01/29/19 10:00 82 18 118/73 (88) 93 01/29/19 09:40 23 Mechanical Ventilator 01/29/19 09:00 83 17 112/82 (92) 98 01/29/19 08:40 100 01/29/19 08:40 77 22 30 01/29/19 08:00 Mechanical Ventilator 01/29/19 08:00 30 01/29/19 08:00 105 01/29/19 08:00 97.8 93 18 126/101 (109) 98 01/29/19 07:17 Mechanical Ventilator 01/29/19 07:17 Mechanical Ventilator 30 01/29/19 07:08 103 14 30 30 01/29/19 07:00 96 21 115/75 (88) 100 01/29/19 06:30 82 22 101/82 (88) 100 01/29/19 06:00 105 21 123/91 (102) 96 01/29/19 06:00 22 Mechanical Ventilator 30 01/29/19 05:30 111 17 180/88 (118) 100 01/29/19 05:18 72 22 30 01/29/19 05:11 22 Mechanical Ventilator 30 01/29/19 05:00 73 21 117/79 (92) 100 01/29/19 04:30 73 22 111/76 (88) 100 01/29/19 04:00 86 01/29/19 04:00 30 01/29/19 04:00 22 Mechanical Ventilator 30 01/29/19 04:00 99.3 85 22 116/72 (87) 100 01/29/19 04:00 Mechanical Ventilator 01/29/19 03:53 94 22 135/76 (95) 100 01/29/19 03:30 93 22 133/85 (101) 100 01/29/19 03:07 74 22 100 Mechanical Ventilator 30 01/29/19 03:00 22 Mechanical Ventilator 30 01/29/19 03:00 84 22 156/96 (116) 100 01/29/19 02:55 79 22 100 Mechanical Ventilator 30 01/29/19 02:54 78 22 30 01/29/19 02:30 70 22 137/84 (101) 100 01/29/19 02:00 71 22 130/84 (99) 100 01/29/19 02:00 22 Mechanical Ventilator 30 01/29/19 01:00 22 Mechanical Ventilator 30 01/29/19 01:00 75 22 127/86 (100) 100 01/29/19 00:45 83 22 30 01/29/19 00:00 Mechanical Ventilator 01/29/19 00:00 97.6 76 22 124/85 (98) 100 01/29/19 00:00 22 Mechanical Ventilator 30 01/29/19 00:00 30 01/29/19 00:00 73 01/28/19 23:30 78 22 135/87 (103) 98 01/28/19 23:02 78 22 100 Mechanical Ventilator 30 01/28/19 23:00 84 16 156/96 (116) 97 01/28/19 22:54 69 22 30 01/28/19 22:54 69 22 100 Mechanical Ventilator 30 01/28/19 22:30 70 22 115/83 (94) 100 01/28/19 22:00 67 22 112/80 (91) 100 01/28/19 22:00 22 Mechanical Ventilator 30 01/28/19 21:30 69 22 118/83 (95) 100 01/28/19 21:00 22 Mechanical Ventilator 30 01/28/19 21:00 73 22 137/89 (105) 100 01/28/19 20:55 75 22 30 01/28/19 20:50 22 30 01/28/19 20:30 90 22 165/95 (118) 100 01/28/19 20:00 30 01/28/19 20:00 66 01/28/19 20:00 22 Mechanical Ventilator 30 01/28/19 20:00 98.3 62 22 114/73 (87) 100 01/28/19 20:00 Mechanical Ventilator 01/28/19 19:30 66 22 119/75 (90) 100 01/28/19 19:00 72 21 99 Mechanical Ventilator 30 01/28/19 19:00 20 Mechanical Ventilator 100 01/28/19 19:00 64 22 111/76 (88) 100 01/28/19 18:53 67 22 98 Mechanical Ventilator 30 01/28/19 18:52 68 22 30 01/28/19 18:00 22 Mechanical Ventilator 100 01/28/19 18:00 70 22 118/85 (96) 97 01/28/19 17:18 67 22 30 Micro: Microbiology Date/Time Source Procedure Growth Status 01/27/19 20:15 Blood Blood Culture - Preliminary NO GROWTH AFTER 24 HOURS Resulted 01/27/19 20:00 Blood Blood Culture - Preliminary NO GROWTH AFTER 24 HOURS Resulted 01/27/19 01:50 Sputum Gram Stain - Final Complete 01/27/19 01:50 Sputum Culture - Final Enterobacter Cloacae Usual Respiratory Matilde Complete Accucheck: 122 Critical Care - Subjective ROS Limited/Unobtainable: No FI02: 30 Vent Support Breath Rate: 22 Vent Support Mode: AC Vent Tidal Volume: 500 Sputum Amount: Small PEEP: 5.0 PIP: 39 I&O: Intake and Output 01/28/19 01/29/19 19:00 07:00 Intake Total 1924.666 ml 1566.0 ml Output Total 425 ml 475 ml Balance 1499.666 ml 1091.0 ml Intake IV Total 1924.666 ml 1566.0 ml Output Urine Total 425 ml 475 ml ET-Tube: 8.0 ET Position: 23 Johny White MD Jan 29, 2019 17:10
--- NOTE | 2019-01-29 18:10 | NUR ---
NURSE NOTES: ADLs done,mouth care provided, turned and repositioned.Call light within easy reach
--- NOTE | 2019-01-29 19:27 | NUR ---
HAND-OFF: Report given to GENNY Patel.
--- NOTE | 2019-01-29 19:30 | NUR ---
NURSE NOTES: Received pt in no apparent distress. Asleep, sedated but arousable, opens eyes to pain. Remains orally intubated with #8ETT placed over right lip at 23cm and appears to be tolerating current vent parameters. O2 sats 98-99% on .30 fiO2. Secretions small amt, thick white. Chest sounds with scattered rhonchi. Right IJ TLC intact. PIV sites on RAC and RFA intact. Fentanyl gtt infuses at 200mcg/h, achieving a RASS score of -2. Bilateral soft wrist restraints in place, fall and seizure precautions observed. NGT to right nare in situ, remains NPO. Ecchymosis noted on BUE noted; skin tears on bilateral ant shins covered with optifoam; SCD's removed. FC patent, oliguric. Will continue to monitor LOC/sedation status and VS.
[2019-01-29] MEDS: Dyna-Hex 2% Top Sol 2oz TOPIC SCH (20:58)
--- NOTE | 2019-01-29 21:00 | NUR ---
NURSE NOTES: Asleep. VSS. No distress.
--- NOTE | 2019-01-29 21:36 | Infectious Diseases Prog Note ---
Assessment/Plan Problems: (1) Leukocytosis Assessment & Plan: partially due to steroids , rule out sepsis, blood culture x2 so far is negative , repeated CXR ruled out aspiration or new infiltrates , still concern about aspiration after two codes blue . sputum culture grew Enterobacter cloacae , continue zosyn for 10 days . stop vancomycin (2) Acute exacerbation of chronic obstructive pulmonary disease (COPD) Assessment & Plan: continue doxycycline for five days only , and nebulizer treatment as per pulmonary (3) Cardiac arrest Assessment & Plan: etiology ? cardiology eval to rule out cardiac sources and neurology eval to evaluate his brain condition and to rule out anoxic brain injury (4) Chronic hypercapnic respiratory failure Assessment & Plan: S/P cardiac arrest , S/P intubation, monitor in ICU, pulmonary is following Subjective ROS Limited/Unobtainable: Yes Allergies: Coded Allergies: No Known Allergies (Unverified , 06/05/18) Subjective He is still intubated on mechanical ventilation, more awake and responsive today , trying to set up in bed, not febrile. Objective Vital Signs Last 24 Hour Vital Signs Date Time Temp Pulse Resp B/P (MAP) Pulse Ox O2 Delivery O2 Flow Rate FiO2 01/29/19 21:23 69 22 30 30 01/29/19 20:00 78 01/29/19 20:00 22 Mechanical Ventilator 30 01/29/19 20:00 30 01/29/19 20:00 Mechanical Ventilator 01/29/19 19:16 80 22 100 Mechanical Ventilator 30 01/29/19 19:06 76 22 100 Mechanical Ventilator 30 01/29/19 19:04 76 22 30 30 01/29/19 19:00 75 22 98/68 (78) 98 01/29/19 19:00 22 Mechanical Ventilator 30 01/29/19 18:00 85 22 106/72 (83) 99 01/29/19 17:30 71 19 111/70 (84) 99 01/29/19 17:05 97.6 01/29/19 17:02 69 22 30 01/29/19 17:00 69 20 101/64 (76) 98 01/29/19 16:35 21 Mechanical Ventilator 01/29/19 16:30 72 19 111/70 (84) 01/29/19 16:00 30 01/29/19 16:00 79 01/29/19 16:00 97.5 61 18 111/70 (84) 98 01/29/19 16:00 Mechanical Ventilator 01/29/19 15:30 72 22 111/68 (82) 01/29/19 15:27 75 22 100 Mechanical Ventilator 30 01/29/19 15:25 64 22 30 01/29/19 15:17 74 22 100 Mechanical Ventilator 30 01/29/19 15:00 68 18 94/51 (65) 99 01/29/19 14:30 61 21 95/66 (76) 01/29/19 14:00 69 18 99/59 (72) 99 01/29/19 13:30 63 22 94/56 (69) 01/29/19 13:00 65 18 94/56 (69) 98 01/29/19 12:51 62 22 30 01/29/19 12:30 63 22 94/59 (71) 01/29/19 12:00 Mechanical Ventilator 01/29/19 12:00 30 01/29/19 12:00 63 01/29/19 12:00 97.8 61 18 94/59 (71) 98 01/29/19 11:30 64 22 101/62 (75) 01/29/19 11:00 82 18 87/78 (81) 98 01/29/19 10:56 65 22 100 Mechanical Ventilator 30 01/29/19 10:54 64 22 30 01/29/19 10:47 64 22 100 Mechanical Ventilator 30 01/29/19 10:30 66 22 84/58 (67) 01/29/19 10:03 97.8 01/29/19 10:00 82 18 118/73 (88) 93 01/29/19 09:40 23 Mechanical Ventilator 01/29/19 09:30 84 15 118/73 (88) 01/29/19 09:00 83 17 112/82 (92) 98 01/29/19 08:40 100 01/29/19 08:40 77 22 30 01/29/19 08:30 77 21 112/82 (92) 99 01/29/19 08:00 Mechanical Ventilator 01/29/19 08:00 30 01/29/19 08:00 105 01/29/19 08:00 97.8 93 18 126/101 (109) 98 01/29/19 07:30 89 13 126/101 (109) 01/29/19 07:17 Mechanical Ventilator 01/29/19 07:17 Mechanical Ventilator 30 01/29/19 07:08 103 14 30 30 01/29/19 07:00 96 21 115/75 (88) 100 01/29/19 06:30 82 22 101/82 (88) 100 01/29/19 06:00 105 21 123/91 (102) 96 01/29/19 06:00 22 Mechanical Ventilator 30 01/29/19 05:30 111 17 180/88 (118) 100 01/29/19 05:18 72 22 30 01/29/19 05:11 22 Mechanical Ventilator 30 01/29/19 05:00 73 21 117/79 (92) 100 01/29/19 04:30 73 22 111/76 (88) 100 01/29/19 04:00 86 01/29/19 04:00 30 01/29/19 04:00 22 Mechanical Ventilator 30 01/29/19 04:00 99.3 85 22 116/72 (87) 100 01/29/19 04:00 Mechanical Ventilator 01/29/19 03:53 94 22 135/76 (95) 100 01/29/19 03:30 93 22 133/85 (101) 100 01/29/19 03:07 74 22 100 Mechanical Ventilator 30 01/29/19 03:00 22 Mechanical Ventilator 30 01/29/19 03:00 84 22 156/96 (116) 100 01/29/19 02:55 79 22 100 Mechanical Ventilator 30 01/29/19 02:54 78 22 30 01/29/19 02:30 70 22 137/84 (101) 100 01/29/19 02:00 71 22 130/84 (99) 100 01/29/19 02:00 22 Mechanical Ventilator 30 01/29/19 01:00 22 Mechanical Ventilator 30 01/29/19 01:00 75 22 127/86 (100) 100 01/29/19 00:45 83 22 30 01/29/19 00:00 Mechanical Ventilator 01/29/19 00:00 97.6 76 22 124/85 (98) 100 01/29/19 00:00 22 Mechanical Ventilator 30 01/29/19 00:00 30 01/29/19 00:00 73 01/28/19 23:30 78 22 135/87 (103) 98 01/28/19 23:02 78 22 100 Mechanical Ventilator 30 01/28/19 23:00 84 16 156/96 (116) 97 01/28/19 22:54 69 22 30 01/28/19 22:54 69 22 100 Mechanical Ventilator 30 01/28/19 22:30 70 22 115/83 (94) 100 01/28/19 22:00 67 22 112/80 (91) 100 01/28/19 22:00 22 Mechanical Ventilator 30 Height (Feet): 5 Height (Inches): 10.00 Weight (Pounds): 135 General Appearance: WD/WN, no acute distress HEENT: normocephalic, atraumatic, anicteric, mucous membranes moist, PERRL, supple, no JVD Respiratory/Chest: chest wall non-tender, no respiratory distress, no accessory muscle use, decreased breath sounds, crackles/rales Cardiovascular: normal peripheral pulses, normal rate, regular rhythm, no gallop/murmur, no JVD Abdomen: normal bowel sounds, soft, non tender, no organomegaly, non distended , no mass, no scars Genitourinary: normal external genitalia Extremities: no cyanosis, no clubbing Skin: no rash, no lesions Neurologic/Psychiatric: alert, responsive Lymphatic: no neck adenopathy, no groin adenopathy Microbiology Date/Time Source Procedure Growth Status 01/27/19 20:15 Blood Blood Culture - Preliminary NO GROWTH AFTER 24 HOURS Resulted 01/27/19 20:00 Blood Blood Culture - Preliminary NO GROWTH AFTER 24 HOURS Resulted 01/27/19 01:50 Sputum Gram Stain - Final Complete 01/27/19 01:50 Sputum Culture - Final Enterobacter Cloacae Usual Respiratory Matilde Complete Laboratory Tests Test 01/29/19 04:00 White Blood Count 19.5 K/UL (4.8-10.8) H Red Blood Count 3.57 M/UL (4.70-6.10) L Hemoglobin 10.6 G/DL (14.2-18.0) L Hematocrit 34.9 % (42.0-52.0) L Mean Corpuscular Volume 98 FL (80-99) Mean Corpuscular Hemoglobin 29.8 PG (27.0-31.0) Mean Corpuscular Hemoglobin Concent 30.4 G/DL (32.0-36.0) L Red Cell Distribution Width 14.9 % (11.6-14.8) H Platelet Count 141 K/UL (150-450) L Mean Platelet Volume 8.7 FL (6.5-10.1) Neutrophils (%) (Auto) % (45.0-75.0) Lymphocytes (%) (Auto) % (20.0-45.0) Monocytes (%) (Auto) % (1.0-10.0) Eosinophils (%) (Auto) % (0.0-3.0) Basophils (%) (Auto) % (0.0-2.0) Differential Total Cells Counted 100 Neutrophils % (Manual) 91 % (45-75) H Lymphocytes % (Manual) 5 % (20-45) L Monocytes % (Manual) 4 % (1-10) Eosinophils % (Manual) 0 % (0-3) Basophils % (Manual) 0 % (0-2) Band Neutrophils 0 % (0-8) Platelet Estimate Decreased L Platelet Morphology Normal Hypochromasia 1+ Sodium Level 144 MMOL/L (136-145) Potassium Level 4.1 MMOL/L (3.5-5.1) Chloride Level 109 MMOL/L (98-107) H Carbon Dioxide Level 30 MMOL/L (21-32) Anion Gap 5 mmol/L (5-15) Blood Urea Nitrogen 31 mg/dL (7-18) H Creatinine 0.9 MG/DL (0.55-1.30) Estimat Glomerular Filtration Rate mL/min (>60) Glucose Level 113 MG/DL (74-106) H Calcium Level 9.1 MG/DL (8.5-10.1) Magnesium Level 2.1 MG/DL (1.8-2.4) Total Bilirubin 0.6 MG/DL (0.2-1.0) Aspartate Amino Transf (AST/SGOT) 42 U/L (15-37) H Alanine Aminotransferase (ALT/SGPT) 49 U/L (12-78) Alkaline Phosphatase 53 U/L (46-116) Pro-B-Type Natriuretic Peptide 467 pg/mL (0-125) H Total Protein 6.4 G/DL (6.4-8.2) Albumin 3.0 G/DL (3.4-5.0) L Globulin 3.4 g/dL Albumin/Globulin Ratio 0.9 (1.0-2.7) L Current Medications Medications (Trade) Dose Ordered Sig/Brittani Route PRN Reason Start Time Stop Time Status Last Admin Dose Admin Acetaminophen (Tylenol) 650 mg Q4H PRN NG FOR MILD PAIN 01/26/19 10:15 02/25/19 10:14 Albuterol/ Ipratropium (Albuterol/ Ipratropium) 3 ml Q4HRT HHN 01/26/19 11:00 01/31/19 10:59 01/29/19 19:06 Chlorhexidine Gluconate (Renetta-Hex 2%) 1 applic DAILY@2000 TOPIC 01/27/19 20:00 02/26/19 19:59 01/29/19 20:58 Dextrose (Dextrose 50%) 25 ml Q30M PRN IV Hypoglycemia 01/26/19 10:30 02/25/19 10:29 Dextrose (Dextrose 50%) 50 ml Q30M PRN IV Hypoglycemia 01/26/19 10:30 02/25/19 10:29 Dextrose/Sodium Chloride 1,000 ml @ 100 mls/hr Q10H IV 01/26/19 14:15 02/25/19 14:14 01/29/19 13:22 Doxycycline Hyclate 100 mg/ Dextrose 110 ml @ 110 mls/hr Q12HR IV 01/26/19 11:00 02/02/19 10:59 01/29/19 20:58 Fentanyl Citrate 1000 mcg/Sodium Chloride 100 ml @ 0 mls/hr Q24H IV 01/26/19 10:27 02/02/19 10:26 01/29/19 16:35 Insulin Aspart (NovoLOG) Q6HR SUBQ 01/26/19 12:00 02/25/19 11:59 01/26/19 17:36 Ketorolac Tromethamine (Toradol 30mg) 30 mg BIDPRN PRN IV FOR MODERATE PAIN 01/26/19 10:15 01/31/19 10:14 Lorazepam (Ativan 2mg/ml 1ml) 1 mg Q1H PRN IV AGITATION / SEIZURE 01/26/19 18:30 02/02/19 18:29 01/29/19 09:33 Methylprednisolone Sodium Succinate (Solu-MEDROL) 60 mg EVERY 12 HOURS IVP 01/29/19 21:00 02/28/19 20:59 01/29/19 20:59 Morphine Sulfate (Morphine Sulfate) 2 mg Q8H PRN IVP FOR SEVERE PAIN 01/26/19 10:15 02/02/19 10:14 01/29/19 09:33 Pantoprazole (Protonix) 40 mg DAILY IVP 01/26/19 11:00 02/25/19 10:59 01/29/19 08:37 Piperacillin Sod/ Tazobactam Sod 3.375 gm/Sodium Chloride 110 ml @ 27.5 mls/hr EVERY 8 HOURS IVPB 01/27/19 20:00 02/01/19 19:59 01/29/19 13:22 Sodium Chloride 500 ml @ 998.89 mls/ hr Q4H PRN IVPB MAP<60 01/26/19 10:15 02/25/19 10:14 Vancomycin HCl (Vanco rx to dose) 1 ea DAILY PRN MISC Per rx protocol 01/27/19 18:30 02/26/19 18:29 Vancomycin HCl 1 gm/Sodium Chloride 275 ml @ 183.333 mls/hr Q12HR IVPB 01/28/19 21:00 02/02/19 20:59 01/29/19 20:59 [place] Orlando M.D. Jan 29, 2019 21:36
--- NOTE | 2019-01-29 23:30 | NUR ---
NURSE NOTES: Awake and restless, attempting to get up. Fentanyl gtt continues at 200mcg/h. Ativan 1 mg IVP given
[2019-01-30] VITALS (48 sets, daily range): BP systolic 92–141; BP diastolic 58–87
--- NOTE | 2019-01-30 01:30 | NUR ---
NURSE NOTES: Calm, asleep, sedated. Occasionally opens eyes and tries to get off restraints. No distress, VSS.
--- NOTE | 2019-01-30 02:00 | NUR ---
NURSE NOTES: Urine output 10-20ml/h; bladder firm and sl distended. Irrigated go and urine flowed freely after.
[2019-01-30] MEDS: Albuterol/Ipratropium 3ml neb HHN SCH ×6 (03:23→22:54)
--- NOTE | 2019-01-30 04:00 | NUR ---
NURSE NOTES: Bathed. No BM. Pt woke up and got extremely restless and agitated. Attempted to get up. 2 Staff needed to hold him down. Restraints maintained. IV site on RFA leaking. DC'd and all IV's including Fentanyl infused via right IJ TLC.
[2019-01-30 05:22] LABS: HEMOGLOBIN 9.3 G/DL (14.2-18.0); MEAN CORPUSCULAR VOLUME 98 FL (80-99); PLATELET COUNT 115 K/UL (150-450); RED BLOOD COUNT 3.17 M/UL (4.70-6.10); RED CELL DISTRIBUTION WIDTH 15.3 % (11.6-14.8); WHITE BLOOD COUNT 12.2 K/UL (4.8-10.8)
[2019-01-30] MEDS: Piperacillin/Tazobactam 3.375 GM in NS 110 ML IVPB SCH ×3 (05:45→21:54)
[2019-01-30 05:46] LABS: ALANINE AMINOTRANSFERASE 39 U/L (12-78); ALBUMIN 2.7 G/DL (3.4-5.0); ALBUMIN/GLOBULIN RATIO 0.9 (1.0-2.7); ALKALINE PHOSPHATASE 45 U/L (46-116); ANION GAP 4 mmol/L (5-15); ASPARTATE AMINO TRANSFERASE 29 U/L (15-37); BILIRUBIN,TOTAL 0.6 MG/DL (0.2-1.0); BLOOD UREA NITROGEN 31 mg/dL (7-18); CALCIUM 8.9 MG/DL (8.5-10.1); CARBON DIOXIDE 29 MMOL/L (21-32); CHLORIDE 112 MMOL/L (98-107); CREATININE 0.9 MG/DL (0.55-1.30); POTASSIUM 4.2 MMOL/L (3.5-5.1); SODIUM 145 MMOL/L (136-145)
[2019-01-30] MEDS: NovoLOG Insulin Flexpen SUBQ SCH ×4 (05:52→23:33)
--- NOTE | 2019-01-30 06:00 | NUR ---
NURSE NOTES: Calm, asleep, sedated. Fentanyl gtt continues at 200mcg/h. VSS.
--- NOTE | 2019-01-30 07:14 | NUR ---
HAND-OFF: Report given to Evelina Delaney RN.
--- NOTE | 2019-01-30 07:45 | NUR ---
NURSE NOTES: Received report from Jorge ROYAL. Pt is sedated, opens eyes to pain. Fentanyl drip has not been on hold in anticipation for weaning determination this morning. Will inquire if MD wants weaning later this shift. Afebrile 98.7. bilateral pupils 3+ sluggish. Pt is intubated ETT 8.0 at 23cm right lipline with vent settings AC 22, VT 500, Peep 5, FIO2 30% with RR 22 O2sat at 100% and diminished upper lung sounds and rhonchi on auscultation. ETT secretions scant yellow, thin. barrel chest noted. hall monitor displays NSR 69, BP 104/67. Weak peripheral pulses. NGT in right nares, clamped. Pt is NPO. Abdomen is round, soft, hypoactive bowel sounds. No BM since recorded 01/27/19. Saenz catheter below bladder, draining yellow urine, 30ml/hr. RIJ TLC access infusing D5 NS at 100ml/hour, Fentanyl at 200mcg/kg/min for RASS-2. Pt has bilateral rosenthal skin tears covered with Optifoam dressings. Pt has bilateral soft wrist restraints to prevent pulling of tubs and safety, circulation and skin check completed. Will continue to monitor pt and implement plan of care.
[2019-01-30] MEDS: D5NS 1,000 ML IV SCH ×2 (08:00→18:00)
--- NOTE | 2019-01-30 08:01 | NUR ---
NURSE NOTES: fentanyl bag replaced, running at 200mcg/kg/min. RASS-2. VSS. Will continue to monitor pt.
[2019-01-30] MEDS: LORazepam Inj 2mg/ml 1ml IV PRN ×2 (09:29→20:46)
[2019-01-30] MEDS: Solu-MEDROL 125mg Inj IVP SCH ×2 (09:33→20:34)
[2019-01-30] MEDS: Pantoprazole Inj IVP SCH (09:33)
[2019-01-30] MEDS: Doxycycline Hyclate 100 MG in D5W 110 ML IV SCH ×2 (09:33→20:34)
[2019-01-30] MEDS ORDERED: D5NS 1000ml IV ONE (10:00)
[2019-01-30] MEDS ORDERED: Tubing IV Secondary IV ONE (10:00)
[2019-01-30] MEDS ORDERED: NS 275ml ONE (10:00)
--- NOTE | 2019-01-30 10:00 | NUR ---
NURSE NOTES: ATIVAN 1MG, 0.5ML IVP ADMINISTERED TO PT DUE TO INCREASED AGITATION AND RESTLESSNESS. PT AWAKENED SUDDENLY BENDING UP AT WAIST, SHAKING HEAD BACK AND FORTH, UNABLE TO SOOTH PT WITH REORIENTATION AND THERAPEUTIC TOUCH. RESTRAINTS SECURE. VSS. WILL CONTINUE TO MONITOR PT.
--- NOTE | 2019-01-30 10:57 | Pulmonolgy Critical Care Note ---
Critical Care - Asmt/Plan Assessment/Plan: Pulmonary Critical Care Progress Note HPI Patient is a 73 year olf man with previous history of COPD, CHF, HTN, DM admitted with extreme respiratory distress, intubated in the ED, subsequent Cardiac Arrest. Noted to have hypercapneic respiratory failure. Interactive today, improved ventilator requirements, did not tolerate weaning today CT Head negative Allergies: No Known Allergies Past Medical History: COPD/Asthma, CHF, Hypertension, DM All Other Systems: limited Physical Exam Vital signs noted General Appearance: sedated on ventilator Head: normocephalic, atraumatic Eyes: bilateral eye PERRL, bilateral eye EOMI ENT: moist mm, no LN Neck: supple Respiratory: generally reduced BS, occasional wheeze Cardiovascular: tachycardia, HS1, HS2, RRR Gastrointestinal: non tender, soft Musculoskeletal: normal inspection Neurologic: sedated on ventilator Skin: no rash, palpation normal Impression: COPD exacerbation Hypercapneic respiratory failure S/p cardiac arrest in the ED CHF HTN Diabetes Plan Wean as tolerated Adjust FIO2 for sats 90-94% HHN Q4 IV Solumedrol Sedation PRN Sz management Monitor labs PPX IV Doxycycline DNR status Labs Test 01/26/19 05:45 White Blood Count 9.6 K/UL (4.8-10.8) Red Blood Count 4.57 M/UL (4.70-6.10) Hemoglobin 13.5 G/DL (14.2-18.0) Hematocrit 46.0 % (42.0-52.0) Mean Corpuscular Volume 101 FL (80-99) Mean Corpuscular Hemoglobin 29.6 PG (27.0-31.0) Mean Corpuscular Hemoglobin Concent 29.4 G/DL (32.0-36.0) Red Cell Distribution Width 15.2 % (11.6-14.8) Platelet Count 181 K/UL (150-450) Mean Platelet Volume 7.5 FL (6.5-10.1) Neutrophils (%) (Auto) 49.7 % (45.0-75.0) Lymphocytes (%) (Auto) 33.3 % (20.0-45.0) Monocytes (%) (Auto) 8.2 % (1.0-10.0) Eosinophils (%) (Auto) 8.2 % (0.0-3.0) Basophils (%) (Auto) 0.7 % (0.0-2.0) Lactic Acid Level 0.80 mmol/L (0.4-2.0) Chest X-Ray: No consolidation, no effusion, ETT tube 7cm, RIJ line good position Critical Care - Objective Last 24 Hour Vital Signs Date Time Temp Pulse Resp B/P (MAP) Pulse Ox O2 Delivery O2 Flow Rate FiO2 01/30/19 10:00 71 22 98/62 (74) 100 01/30/19 10:00 22 Mechanical Ventilator 30 01/30/19 09:30 81 22 112/64 (80) 100 01/30/19 09:00 69 22 100/62 (75) 100 01/30/19 09:00 22 Mechanical Ventilator 30 01/30/19 08:50 70 22 30 30 01/30/19 08:30 73 22 104/60 (75) 01/30/19 08:01 22 Endotracheal Tube 30 01/30/19 08:00 98.7 73 22 101/62 (75) 100 01/30/19 08:00 30 01/30/19 08:00 72 01/30/19 08:00 Mechanical Ventilator 01/30/19 07:30 69 22 104/67 (79) 100 01/30/19 07:12 70 20 100 Mechanical Ventilator 30 01/30/19 07:03 63 22 30 30 01/30/19 07:02 64 22 98 Mechanical Ventilator 30 01/30/19 07:00 64 22 98/63 (75) 100 01/30/19 07:00 Mechanical Ventilator 30 01/30/19 06:30 64 22 96/60 (72) 100 01/30/19 06:00 61 22 92/67 (75) 100 01/30/19 06:00 22 Mechanical Ventilator 30 01/30/19 05:30 61 22 105/62 (76) 100 01/30/19 05:20 63 22 30 30 01/30/19 05:00 62 22 109/60 (76) 100 01/30/19 05:00 20 Mechanical Ventilator 30 01/30/19 04:30 68 22 106/63 (77) 100 01/30/19 04:00 Mechanical Ventilator 01/30/19 04:00 22 Mechanical Ventilator 30 01/30/19 04:00 98.1 87 19 95/81 (86) 100 01/30/19 04:00 65 8/14/19 04:00 30 01/30/19 03:30 69 22 133/67 (89) 100 01/30/19 03:30 70 22 100 Mechanical Ventilator 30 01/30/19 03:23 72 22 100 Mechanical Ventilator 30 01/30/19 03:22 72 22 30 30 01/30/19 03:03 18 Mechanical Ventilator 30 01/30/19 03:00 70 22 129/73 (91) 100 01/30/19 02:30 74 21 136/71 (92) 100 01/30/19 02:00 22 Mechanical Ventilator 30 01/30/19 02:00 72 22 120/87 (98) 100 01/30/19 01:30 75 22 121/79 (93) 100 01/30/19 01:29 74 22 30 30 01/30/19 01:00 73 21 124/67 (86) 100 01/30/19 01:00 22 Mechanical Ventilator 01/30/19 00:30 74 22 115/66 (82) 100 01/30/19 00:04 Mechanical Ventilator 01/30/19 00:02 75 01/30/19 00:02 30 01/30/19 00:00 22 Mechanical Ventilator 30 01/30/19 00:00 98.0 76 22 106/66 (79) 100 01/29/19 23:30 77 24 120/77 (91) 99 01/29/19 23:20 77 22 100 Mechanical Ventilator 01/29/19 23:10 81 22 100 Mechanical Ventilator 30 01/29/19 23:09 81 22 30 30 01/29/19 23:00 74 22 119/71 (87) 99 01/29/19 23:00 23 Mechanical Ventilator 30 01/29/19 22:30 72 21 112/74 (87) 99 01/29/19 22:04 22 Mechanical Ventilator 30 01/29/19 22:03 22 Mechanical Ventilator 30 01/29/19 22:00 72 22 102/69 (80) 99 01/29/19 21:30 75 22 104/73 (83) 98 01/29/19 21:23 69 22 30 30 01/29/19 21:00 75 22 102/68 (79) 98 01/29/19 20:59 22 Mechanical Ventilator 30 01/29/19 20:30 75 22 101/70 (80) 98 01/29/19 20:00 72 22 98/68 (78) 98 01/29/19 20:00 Mechanical Ventilator 01/29/19 20:00 78 01/29/19 20:00 22 Mechanical Ventilator 30 01/29/19 20:00 30 01/29/19 19:30 98.4 74 22 103/68 (80) 100 01/29/19 19:16 80 22 100 Mechanical Ventilator 30 01/29/19 19:06 76 22 100 Mechanical Ventilator 30 01/29/19 19:04 76 22 30 30 01/29/19 19:00 75 22 98/68 (78) 98 01/29/19 19:00 22 Mechanical Ventilator 30 01/29/19 18:00 85 22 106/72 (83) 99 01/29/19 17:30 71 19 111/70 (84) 99 01/29/19 17:05 97.6 01/29/19 17:02 69 22 30 01/29/19 17:00 69 20 101/64 (76) 98 01/29/19 16:35 21 Mechanical Ventilator 01/29/19 16:30 72 19 111/70 (84) 01/29/19 16:00 30 01/29/19 16:00 79 01/29/19 16:00 97.5 61 18 111/70 (84) 98 01/29/19 16:00 Mechanical Ventilator 01/29/19 15:30 72 22 111/68 (82) 01/29/19 15:27 75 22 100 Mechanical Ventilator 30 01/29/19 15:25 64 22 30 01/29/19 15:17 74 22 100 Mechanical Ventilator 30 01/29/19 15:00 68 18 94/51 (65) 99 01/29/19 14:30 61 21 95/66 (76) 01/29/19 14:00 69 18 99/59 (72) 99 01/29/19 13:30 63 22 94/56 (69) 01/29/19 13:00 65 18 94/56 (69) 98 01/29/19 12:51 62 22 30 01/29/19 12:30 63 22 94/59 (71) 01/29/19 12:00 Mechanical Ventilator 01/29/19 12:00 30 01/29/19 12:00 63 01/29/19 12:00 97.8 61 18 94/59 (71) 98 01/29/19 11:30 64 22 101/62 (75) 01/29/19 11:00 82 18 87/78 (81) 98 Micro: Microbiology Date/Time Source Procedure Growth Status 01/27/19 20:15 Blood Blood Culture - Preliminary NO GROWTH AFTER 48 HOURS Resulted 01/27/19 20:00 Blood Blood Culture - Preliminary NO GROWTH AFTER 48 HOURS Resulted Accucheck: 105 Critical Care - Subjective ROS Limited/Unobtainable: No FI02: 30 Vent Support Breath Rate: 22 Vent Support Mode: AC Vent Tidal Volume: 500 Sputum Amount: Scant PEEP: 5.0 PIP: 36 Tube Feeding Amount: 0 I&O: Intake and Output 01/29/19 01/30/19 19:00 07:00 Intake Total 1881.666 ml 1567.5 ml Output Total 420 ml 935 ml Balance 1461.666 ml 632.5 ml Intake IV Total 1881.666 ml 1567.5 ml Tube Feeding 0 ml Output Urine Total 420 ml 935 ml ET-Tube: 8.0 ET Position: 25 Johny White MD Jan 30, 2019 10:57
--- NOTE | 2019-01-30 11:00 | NUR ---
NURSE NOTES: Provided mouth care. Pt turned and repositioned. Restraints secure.
--- NOTE | 2019-01-30 12:00 | NUR ---
NURSE NOTES: Pt is sedated, opens eyes to pain. Febrile 99.1, blankets removed and cooling measures in place. Pt is intubated ETT 8.0 at 23cm right lipline with vent settings AC 22, VT 500, Peep 5, FIO2 30% with RR 21 O2sat at 100%. ETT secretions scant. nurse monitoring displays NSR 65, BP 108/65. Weak peripheral pulses. NGT in right nares. Pt is NPO. Abdomen hypoactive bowel sounds. No BM at this time. Saenz draining yellow urine, 40ml/hr. RIJ TLC access infusing D5 NS at 100ml/hour, Fentanyl at 200mcg/kg/min for RASS-2.Optifoam dressings on bilateral shins. Bilateral soft wrist restraints noted, circulation and skin check completed. Oral care provided and pt repositioned. Visitors arrived sister and son at bedside and given chairs to visit pt. Son given update on pt status. Will continue to monitor pt and implement plan of care.
--- NOTE | 2019-01-30 13:17 | NUR ---
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 98.7 HR 72 RR 22 B/P 101/62 AC 22 TV 500 FIO2 30% PEEP 5 WBC 12.2 BUN 31 ALK PHOS 45 IS: SOLU MEDROL IV ZOSYN IV IVF D5NS@100ML/HR PROTONIX IV ALB HHN ICU STATUS
--- NOTE | 2019-01-30 13:47 | NUR ---
NURSE NOTES: MD LYN HERE TO SEE PT. SPOKE WITH FAMILY. RECEIVED ORDER TO START TUBE FEEDING BASED ON DIETITIAN RECOMMENDATIONS, DECREASE FLUIDS TO 50ML/HR AFTER START TUBE FEEDINGS, LOVENOX 40MG SUBCUT DAILY.
--- NOTE | 2019-01-30 14:22 | NUR ---
NURSE NOTES: MD PEÑA HERE TO SEE PT. UNABLE TO WEAN PT THIS A.M DUE TO SEDATION LEVEL. RECEIVED ORDER TO ATIVAN FREQUENCY TO Q4HR, ALSO TAPER OFF FENTANYL TO RASS 0 FOR A.M WEANING.
--- NOTE | 2019-01-30 14:50 | NUR ---
NURSE NOTES: FENTANYL DECREASED TO 190MCG/KG/MIN. BP 103/74, HR 60.
--- NOTE | 2019-01-30 15:00 | NUR ---
NURSE NOTES: Provided mouth care. Pt turned and repositioned. Restraints secure.
--- NOTE | 2019-01-30 16:00 | NUR ---
NURSE NOTES: Pt is sedated, opens eyes to pain. Afebrile 98.5. Pt is intubated ETT 8.0 at 23cm right lipline with vent settings AC 22, VT 500, Peep 5, FIO2 30% with RR 21 O2sat at 100%. manager search engine displays NSR 77, BP 114/64. NGT in right nares. Vital AF 1.2, running 15ml/hr. Abdomen hypoactive bowel sounds. No BM at this time. Saenz draining yellow urine. RIJ TLC access infusing D5 NS at 100ml/hour, Fentanyl at 190mcg/kg/min for RASS-2. Bilateral soft wrist restraints noted, circulation and skin check completed. Oral care provided and pt repositioned. Will continue to monitor pt and implement plan of care.
--- NOTE | 2019-01-30 17:00 | NUR ---
NURSE NOTES: FENTANYL DECREASED TO 180MCG/Hr. BP 117/60, HR 68.
--- NOTE | 2019-01-30 17:30 | NUR ---
NURSE NOTES: FENTANYL DECREASED TO 170MCG/Hr. BP 114/76, HR 81.
--- NOTE | 2019-01-30 18:00 | NUR ---
NURSE NOTES: mouth care provided, turned and repositioned. restraints secure. Addendum: 01/30/19 at 1909 by Fartun Delaney RN FENTANYL DECREASED TO 160MCG/Hr. BP 117/76, HR 64.
--- NOTE | 2019-01-30 18:48 | NUR ---
NURSE NOTES: FENTANYL DECREASED TO 150MCG/Hr. BP 116/67, HR 59.
--- NOTE | 2019-01-30 18:55 | NUR ---
RESPIRATORY NOTE: Received pt on AC 22, 500VT, 30%, PEEP +5. Pt intubated w/ ETT 8.0 @ 25cm lipline, secured by anchorfast. Pt currently sedated. Both hands on soft restraints to prevent pt from self-extubation. Bite block in place as pt tends to bite down tube. B/S bogdan. diminished, sxn minimal amounts of thick, bridges-brown secretions. Vent plugged into red outlet, ambubag at bedside. Family present at bedside. Pt in no apparent distress at this time. Will continue to monitor pt.
--- NOTE | 2019-01-30 19:25 | Infectious Diseases Prog Note ---
Assessment/Plan Problems: (1) Leukocytosis Assessment & Plan: partially due to steroids , rule out sepsis, blood culture x2 so far is negative , repeated CXR ruled out aspiration or new infiltrates , still concern about aspiration after two codes blue . sputum culture grew Enterobacter cloacae , continue zosyn for 10 days . taper steroids (2) Acute exacerbation of chronic obstructive pulmonary disease (COPD) Assessment & Plan: continue doxycycline for five days only , and nebulizer treatment as per pulmonary (3) Cardiac arrest Assessment & Plan: etiology ? cardiology eval to rule out cardiac sources and neurology eval to evaluate his brain condition and to rule out anoxic brain injury (4) Chronic hypercapnic respiratory failure Assessment & Plan: S/P cardiac arrest , S/P intubation, monitor in ICU, pulmonary is following Subjective ROS Limited/Unobtainable: Yes Allergies: Coded Allergies: No Known Allergies (Unverified , 06/05/18) Subjective He is still intubated on mechanical ventilation, more awake and responsive today , trying to set up in bed, not febrile. Objective Vital Signs Last 24 Hour Vital Signs Date Time Temp Pulse Resp B/P (MAP) Pulse Ox O2 Delivery O2 Flow Rate FiO2 01/30/19 19:05 60 22 100 Mechanical Ventilator 30 01/30/19 19:00 Mechanical Ventilator 30 01/30/19 18:53 61 22 100 Mechanical Ventilator 30 01/30/19 18:52 61 22 30 30 01/30/19 18:48 20 Endotracheal Tube 30 01/30/19 18:30 59 22 116/67 (83) 01/30/19 18:00 Mechanical Ventilator 30 01/30/19 18:00 64 21 117/75 (89) 01/30/19 17:30 81 22 114/76 (89) 01/30/19 17:30 Endotracheal Tube 30 01/30/19 17:11 65 22 30 30 01/30/19 17:00 20 Mechanical Ventilator 30 01/30/19 17:00 68 22 117/60 (79) 01/30/19 16:30 71 22 117/63 (81) 01/30/19 16:00 98.5 77 22 114/64 (81) 01/30/19 16:00 30 01/30/19 16:00 Endotracheal Tube 30 01/30/19 16:00 87 01/30/19 16:00 Mechanical Ventilator 01/30/19 15:30 17 130/68 (88) 01/30/19 15:29 67 22 98 Mechanical Ventilator 30 01/30/19 15:09 64 22 30 30 01/30/19 15:09 64 22 100 Mechanical Ventilator 30 01/30/19 15:00 61 22 103/74 (84) 01/30/19 15:00 Endotracheal Tube 30 01/30/19 14:50 Mechanical Ventilator 30 01/30/19 14:30 63 22 101/68 (79) 01/30/19 14:00 62 22 112/68 (83) 01/30/19 13:30 63 22 105/67 (80) 01/30/19 13:05 62 22 30 30 01/30/19 13:00 61 22 110/70 (83) 01/30/19 13:00 Mechanical Ventilator 30 01/30/19 12:30 64 22 110/68 (82) 01/30/19 12:00 99.1 65 21 108/65 (79) 01/30/19 12:00 Mechanical Ventilator 01/30/19 12:00 20 Mechanical Ventilator 30 01/30/19 12:00 30 01/30/19 12:00 66 01/30/19 11:30 66 22 112/68 (83) 01/30/19 11:24 67 22 100 Mechanical Ventilator 30 01/30/19 11:13 65 22 30 30 01/30/19 11:13 64 22 100 Mechanical Ventilator 30 01/30/19 11:00 65 22 107/61 (76) 01/30/19 11:00 22 Mechanical Ventilator 30 01/30/19 10:30 67 22 94/58 (70) 01/30/19 10:00 71 22 98/62 (74) 100 01/30/19 10:00 22 Mechanical Ventilator 30 01/30/19 09:30 81 22 112/64 (80) 100 01/30/19 09:00 69 22 100/62 (75) 100 01/30/19 09:00 22 Mechanical Ventilator 30 01/30/19 08:50 70 22 30 30 01/30/19 08:30 73 22 104/60 (75) 01/30/19 08:01 22 Endotracheal Tube 30 01/30/19 08:00 98.7 73 22 101/62 (75) 100 01/30/19 08:00 30 01/30/19 08:00 72 01/30/19 08:00 Mechanical Ventilator 01/30/19 07:30 69 22 104/67 (79) 100 01/30/19 07:12 70 20 100 Mechanical Ventilator 30 01/30/19 07:03 63 22 30 30 01/30/19 07:02 64 22 98 Mechanical Ventilator 30 01/30/19 07:00 64 22 98/63 (75) 100 01/30/19 07:00 Mechanical Ventilator 30 01/30/19 06:30 64 22 96/60 (72) 100 01/30/19 06:00 61 22 92/67 (75) 100 01/30/19 06:00 22 Mechanical Ventilator 30 01/30/19 05:30 61 22 105/62 (76) 100 01/30/19 05:20 63 22 30 30 01/30/19 05:00 62 22 109/60 (76) 100 01/30/19 05:00 20 Mechanical Ventilator 30 01/30/19 04:30 68 22 106/63 (77) 100 01/30/19 04:00 Mechanical Ventilator 01/30/19 04:00 22 Mechanical Ventilator 30 01/30/19 04:00 98.1 87 19 95/81 (86) 100 01/30/19 04:00 65 01/30/19 04:00 30 01/30/19 03:30 69 22 133/67 (89) 100 01/30/19 03:30 70 22 100 Mechanical Ventilator 30 01/30/19 03:23 72 22 100 Mechanical Ventilator 30 01/30/19 03:22 72 22 30 30 01/30/19 03:03 18 Mechanical Ventilator 30 01/30/19 03:00 70 22 129/73 (91) 100 01/30/19 02:30 74 21 136/71 (92) 100 01/30/19 02:00 22 Mechanical Ventilator 30 01/30/19 02:00 72 22 120/87 (98) 100 01/30/19 01:30 75 22 121/79 (93) 100 01/30/19 01:29 74 22 30 30 01/30/19 01:00 73 21 124/67 (86) 100 01/30/19 01:00 22 Mechanical Ventilator 30 01/30/19 00:30 74 22 115/66 (82) 100 01/30/19 00:04 Mechanical Ventilator 01/30/19 00:02 75 01/30/19 00:02 30 01/30/19 00:00 22 Mechanical Ventilator 30 01/30/19 00:00 98.0 76 22 106/66 (79) 100 01/29/19 23:30 77 24 120/77 (91) 99 01/29/19 23:20 77 22 100 Mechanical Ventilator 30 01/29/19 23:10 81 22 100 Mechanical Ventilator 30 01/29/19 23:09 81 22 30 30 01/29/19 23:00 74 22 119/71 (87) 99 01/29/19 23:00 23 Mechanical Ventilator 30 01/29/19 22:30 72 21 112/74 (87) 99 01/29/19 22:04 22 Mechanical Ventilator 30 01/29/19 22:03 22 Mechanical Ventilator 01/29/19 22:00 72 22 102/69 (80) 99 01/29/19 21:30 75 22 104/73 (83) 98 01/29/19 21:23 69 22 30 30 01/29/19 21:00 75 22 102/68 (79) 98 01/29/19 20:59 22 Mechanical Ventilator 30 01/29/19 20:30 75 22 101/70 (80) 98 01/29/19 20:00 72 22 98/68 (78) 98 01/29/19 20:00 Mechanical Ventilator 01/29/19 20:00 78 01/29/19 20:00 22 Mechanical Ventilator 30 01/29/19 20:00 30 01/29/19 19:30 98.4 74 22 103/68 (80) 100 Height (Feet): 5 Height (Inches): 10.00 Weight (Pounds): 154 General Appearance: WD/WN, no acute distress HEENT: normocephalic, atraumatic, anicteric, mucous membranes moist, supple, no JVD Respiratory/Chest: chest wall non-tender, no respiratory distress, no accessory muscle use, decreased breath sounds, crackles/rales Cardiovascular: normal peripheral pulses, normal rate, regular rhythm, no gallop/murmur, no JVD Abdomen: normal bowel sounds, soft, non tender, no organomegaly, non distended , no mass, no scars Extremities: no cyanosis, no clubbing Skin: no rash, no lesions, no ulcers Neurologic/Psychiatric: alert, responsive Lymphatic: no neck adenopathy, no groin adenopathy Musculoskeletal: normal muscle bulk, no effusion Microbiology Date/Time Source Procedure Growth Status 01/27/19 20:15 Blood Blood Culture - Preliminary NO GROWTH AFTER 48 HOURS Resulted 01/27/19 20:00 Blood Blood Culture - Preliminary NO GROWTH AFTER 48 HOURS Resulted Laboratory Tests Test 01/30/19 04:26 White Blood Count 12.2 K/UL (4.8-10.8) H Red Blood Count 3.17 M/UL (4.70-6.10) L Hemoglobin 9.3 G/DL (14.2-18.0) L Hematocrit 31.0 % (42.0-52.0) L Mean Corpuscular Volume 98 FL (80-99) Mean Corpuscular Hemoglobin 29.5 PG (27.0-31.0) Mean Corpuscular Hemoglobin Concent 30.1 G/DL (32.0-36.0) L Red Cell Distribution Width 15.3 % (11.6-14.8) H Platelet Count 115 K/UL (150-450) L Mean Platelet Volume 8.2 FL (6.5-10.1) Neutrophils (%) (Auto) % (45.0-75.0) Lymphocytes (%) (Auto) % (20.0-45.0) Monocytes (%) (Auto) % (1.0-10.0) Eosinophils (%) (Auto) % (0.0-3.0) Basophils (%) (Auto) % (0.0-2.0) Sodium Level 145 MMOL/L (136-145) Potassium Level 4.2 MMOL/L (3.5-5.1) Chloride Level 112 MMOL/L (98-107) H Carbon Dioxide Level 29 MMOL/L (21-32) Anion Gap 4 mmol/L (5-15) L Blood Urea Nitrogen 31 mg/dL (7-18) H Creatinine 0.9 MG/DL (0.55-1.30) Estimat Glomerular Filtration Rate mL/min (>60) Glucose Level 110 MG/DL (74-106) H Calcium Level 8.9 MG/DL (8.5-10.1) Total Bilirubin 0.6 MG/DL (0.2-1.0) Aspartate Amino Transf (AST/SGOT) 29 U/L (15-37) Alanine Aminotransferase (ALT/SGPT) 39 U/L (12-78) Alkaline Phosphatase 45 U/L (46-116) L Total Protein 5.7 G/DL (6.4-8.2) L Albumin 2.7 G/DL (3.4-5.0) L Globulin 3.0 g/dL Albumin/Globulin Ratio 0.9 (1.0-2.7) L Current Medications Medications (Trade) Dose Ordered Sig/Brittani Route PRN Reason Start Time Stop Time Status Last Admin Dose Admin Acetaminophen (Tylenol) 650 mg Q4H PRN NG FOR MILD PAIN 01/26/19 10:15 02/25/19 10:14 Albuterol/ Ipratropium (Albuterol/ Ipratropium) 3 ml Q4HRT HHN 01/26/19 11:00 01/31/19 10:59 01/30/19 18:53 Chlorhexidine Gluconate (Renetta-Hex 2%) 1 applic DAILY@2000 TOPIC 01/27/19 20:00 02/26/19 19:59 01/29/19 20:58 Dextrose (Dextrose 50%) 25 ml Q30M PRN IV Hypoglycemia 01/26/19 10:30 02/25/19 10:29 Dextrose (Dextrose 50%) 50 ml Q30M PRN IV Hypoglycemia 01/26/19 10:30 02/25/19 10:29 Dextrose/Sodium Chloride 1,000 ml @ 50 mls/hr Q20H IV 01/30/19 18:00 03/01/19 17:59 01/30/19 18:00 Doxycycline Hyclate 100 mg/ Dextrose 110 ml @ 110 mls/hr Q12HR IV 01/26/19 11:00 02/02/19 10:59 01/30/19 09:33 Enoxaparin Sodium (Lovenox) 40 mg DAILY SUBQ 01/31/19 09:00 03/02/19 08:59 Fentanyl Citrate 1000 mcg/Sodium Chloride 100 ml @ 0 mls/hr Q24H IV 01/26/19 10:27 02/02/19 10:26 01/30/19 18:48 Insulin Aspart (NovoLOG) Q6HR SUBQ 01/26/19 12:00 02/25/19 11:59 01/30/19 17:48 Ketorolac Tromethamine (Toradol 30mg) 30 mg BIDPRN PRN IV FOR MODERATE PAIN 01/26/19 10:15 01/31/19 10:14 Lorazepam (Ativan 2mg/ml 1ml) 1 mg Q4H PRN IV AGITATION / SEIZURE 01/30/19 15:00 02/06/19 14:59 Methylprednisolone Sodium Succinate (Solu-MEDROL) 60 mg EVERY 12 HOURS IVP 01/29/19 21:00 02/28/19 20:59 01/30/19 09:33 Morphine Sulfate (Morphine Sulfate) 2 mg Q8H PRN IVP FOR SEVERE PAIN 01/26/19 10:15 02/02/19 10:14 01/29/19 09:33 Pantoprazole (Protonix) 40 mg DAILY IVP 01/26/19 11:00 02/25/19 10:59 01/30/19 09:33 Piperacillin Sod/ Tazobactam Sod 3.375 gm/Sodium Chloride 110 ml @ 27.5 mls/hr EVERY 8 HOURS IVPB 01/27/19 20:00 02/01/19 19:59 01/30/19 14:00 Sodium Chloride 500 ml @ 998.89 mls/ hr Q4H PRN IVPB MAP<60 01/26/19 10:15 02/25/19 10:14 [place] Orlando M.D. Jan 30, 2019 19:25
--- NOTE | 2019-01-30 19:28 | NUR ---
HAND-OFF: Report given to Thomas ROYAL. pt in no acute distress.
--- NOTE | 2019-01-30 19:40 | NUR ---
NURSE NOTES: PT'S FAMILY STAYED AT BEDSIDE, PATIENT RESTLESS, ON ETT TO VENT, AC 22/TV 500/FIO2 30%/PEEP 5, O2 SATURATION 100% NOTED, NGT TO RIGHT NARES, ONGOING VITAL AF 1.2 AT 15ML/HR, RESIDUE 40ML OUTED, KEPT HOB OVER 30 DEGREES, ABDOMEN SOFT, NO BOWEL MOVEMENT STATUS, F/C INTACT AND PATENT, YELLOW URINE OUTED, TLC TO RIGHT IJ AND PERIPHERAL LINE TO RIGHT FA 20G INTACT AND PATENT, ONGOING D5 NS AT 50ML/HR AND FENTANYL DRIP 150MCG/HR VIA TLC, KEPT 2 POINT SOFT RESTRAINTS FOR SAFETY, MADE LOWER BED POSITION AND ON BED ALARM, PROVIDED CALL LIGHT WITHIN REACH, WILL CONTINUE TO MONITOR.
[2019-01-30] MEDS: Dyna-Hex 2% Top Sol 2oz TOPIC SCH (19:49)
--- NOTE | 2019-01-30 20:46 | NUR ---
NURSE NOTES: PATIENT TRIED TO REMOVE ENDOTUBE AND AGITATED THAT GIVEN ATIVAN 1MG BY IVP SLOWLY PRN ORDERED FOR AGITATION, WILL CONTINUE TO MONITOR.
--- NOTE | 2019-01-30 23:00 | NUR ---
NURSE NOTES: ORAL CARE WAS DONE, NO PAIN OR SOB NOTED AT THIS TIME.
[2019-01-31] VITALS (46 sets, daily range): BP systolic 100–175; BP diastolic 61–90
--- NOTE | 2019-01-31 00:42 | NUR ---
NURSE NOTES: KEPT RASS SCORE -2 PER PROTOCOLS, ONGOING FENTANYL DRIP 200MCG/HR, WILL CONTINUE PLAN OF CARE.
--- NOTE | 2019-01-31 02:44 | NUR ---
NURSE NOTES: NO ACUTE DISTRESS NOTED AT THIS TIME.
[2019-01-31] MEDS: Albuterol/Ipratropium 3ml neb HHN SCH ×2 (02:46→07:00)
--- NOTE | 2019-01-31 04:10 | NUR ---
NURSE NOTES: MORNING CARE WAS DONE, NO BOWEL MOVEMENT STATUS, PATIENT RESISTANCE TO CARE AND TRIED TO TOUCH LINE WHILE CARE, RELEASED RESTRAINTS AND REAPPLIED FOR SAFETY, KEPT FENTANYL DRIP 200MCG/HR, WILL CONTINUE TO MONITOR.
[2019-01-31] MEDS: Piperacillin/Tazobactam 3.375 GM in NS 110 ML IVPB SCH ×3 (05:34→21:42)
[2019-01-31] MEDS: NovoLOG Insulin Flexpen SUBQ SCH ×3 (05:35→18:33)
--- NOTE | 2019-01-31 06:20 | NUR ---
NURSE NOTES: NO ACUTE DISTRESS NOTED AT THIS SHIFT.
--- NOTE | 2019-01-31 07:00 | NUR ---
RESPIRATORY NOTES: Received Patient on Vent settings ACVC 22, VT 500, Fio2 30%, PEEP +5. Patient currently intubated with 8.0 ETT at 25 cm lip line. Patient awake and agitated. Breath sounds are bilateral diminished throughout both lung [place]. Suctioned small amount of clear secretions. Vent plugged into red outlet. Alarms are on and audible. Will continue to monitor throughout the day.
--- NOTE | 2019-01-31 07:05 | NUR ---
HAND-OFF: Report given to Tona PINTO RN.
--- NOTE | 2019-01-31 07:10 | NUR ---
NURSE NOTES: Received pt from GENNY Guzman. Patient is drowsy, meets RASS -1. Titrating Fentanyl to meet RASS 0 for weaning this AM. Orally intubated ETT 8.0/23cm at lip line, AC 22/TV 500/Fio2 30%/+5, oxygen saturation 100%. Breathing unlabored and even, bilateral b/s diminished. Minimal secretions noted from Endotracheal suctions. Right nare NGT clamped and feeding held for weaning. abdomen is non-distended. RIJ TLC running Fentanyl @150mcg/hr and D5NS@50ml/hr. RFA 20G IV patent and asymptomatic. Bilateral soft wrist restraints in place for safety and impulsiveness; skin intact and warm to touch. Bed locked, alarmed and in lowest position. Will continue plan of care.
--- NOTE | 2019-01-31 07:40 | NUR ---
RESPIRATORY NOTES: Attempted to wean patient at 0740. Placed on PS +8 PEEP +5 Fio2 30%. Patient immediately started showing signs of agitation and distress. Heart rate increased from 89 to 118 and saturation dropped to 88%. Placed back onto ACVC. GENNY heller.
--- NOTE | 2019-01-31 07:45 | NUR ---
NURSE NOTES: Weaning initiated, CPAP/PS 8, patient was unable to tolerate. Became agitated, pulling on restraints and trying to sit up. Tachypneic in 30's and tachycardiac 120's. Placed patient back on AC mode and increased Fentanyl drip to meet RASS -2.
[2019-01-31] MEDS: Solu-MEDROL 125mg Inj IVP SCH ×2 (08:35→20:36)
[2019-01-31] MEDS: Doxycycline Hyclate 100 MG in D5W 110 ML IV SCH ×2 (08:35→20:36)
[2019-01-31] MEDS: Pantoprazole Inj IVP SCH (08:35)
[2019-01-31] MEDS: Enoxaparin 40mg Inj SUBQ SCH (09:00)
--- NOTE | 2019-01-31 09:31 | NUR ---
NURSE NOTES: Turned and repositioned, oral care done. Kept dry and clean.
--- NOTE | 2019-01-31 10:56 | NUR ---
RD ASSESSMENT & RECOMMENDATIONS SEE CARE ACTIVITY FOR COMPLETE ASSESSMENT DAILY ESTIMATED NEEDS: Needs based on Critical care, 61kg 25-30 kcals/kg 6494-0277 total kcals 1.2-2 g protein/kg 73-122 g total protein 25-30 mL/kg 8664-7370 total fluid mLs NUTRITION DIAGNOSIS: * Swallowing difficulty R/T respiratory status as evidenced by pt s/p cardiac arrest, s/p intubation, NGT feeds initiated. (PO DIET RECOMMENDATIONS: ALTERATION WORKER eval upon extubation) ENTERAL NUTRITION RECOMMENDATIONS: Vital AF 1.2 @55ml/hr x24 hrs to provide 1320ml, 1584 kcal, 99g pro, 1071ml free H2O - As medically able, rec temporary non oral feeds to meet est nutritional needs - Obtain GI access, start Vital 1.2 @15ml/hr x6 hrs. Advance as tolerated 10ml/hr q4-6 hrs to goal - Flush per MD, HOB over 30 degrees. ADDITIONAL RECOMMENDATIONS: * W/ hemodynamic stability, TF recs as above * Calibrated bed scale wts * ALTERATION WORKER eval for appropriate texture s/p extubation * Lytes, daily, replete as needed * Monitor tolerance to TF / need for formula change . .
--- NOTE | 2019-01-31 11:29 | Infectious Diseases Prog Note ---
Assessment/Plan Problems: (1) Aspiration pneumonia Assessment & Plan: due to cardiac arrest, with enterobacter cloacea, continue zosyn empirically for 10 days . aspiration precaution . (2) Leukocytosis Assessment & Plan: partially due to steroids , rule out sepsis, blood culture x2 so far is negative , repeated CXR ruled out aspiration or new infiltrates , still concern about aspiration after two codes blue . sputum culture grew Enterobacter cloacae , continue zosyn for 10 days . taper steroids (3) Acute exacerbation of chronic obstructive pulmonary disease (COPD) Assessment & Plan: continue doxycycline for five days only , and nebulizer treatment as per pulmonary (4) Cardiac arrest Assessment & Plan: etiology ? cardiology eval to rule out cardiac sources and neurology eval to evaluate his brain condition and to rule out anoxic brain injury (5) Chronic hypercapnic respiratory failure Assessment & Plan: S/P cardiac arrest , S/P intubation, monitor in ICU, pulmonary is following Subjective ROS Limited/Unobtainable: Yes Allergies: Coded Allergies: No Known Allergies (Unverified , 06/05/18) Subjective He is still intubated on mechanical ventilation, more awake and responsive today , trying to set up in bed, not febrile. Objective Vital Signs Last 24 Hour Vital Signs Date Time Temp Pulse Resp B/P (MAP) Pulse Ox O2 Delivery O2 Flow Rate FiO2 01/31/19 11:21 22 Mechanical Ventilator 30 01/31/19 11:00 22 Mechanical Ventilator 30 01/31/19 11:00 70 22 127/72 (90) 100 01/31/19 10:30 86 25 112/78 (89) 100 01/31/19 10:00 22 Mechanical Ventilator 30 01/31/19 10:00 72 22 100/79 (86) 100 01/31/19 09:30 72 22 114/72 (86) 100 01/31/19 09:01 65 22 30 01/31/19 09:00 72 22 108/73 (85) 100 01/31/19 09:00 22 Mechanical Ventilator 30 01/31/19 08:30 72 22 107/73 (84) 100 01/31/19 08:00 Mechanical Ventilator 01/31/19 08:00 30 01/31/19 08:00 22 Mechanical Ventilator 30 01/31/19 08:00 82 01/31/19 08:00 112 36 107/73 (84) 100 01/31/19 07:44 111 22 100 Mechanical Ventilator 30 01/31/19 07:43 Mechanical Ventilator 30 01/31/19 07:43 Mechanical Ventilator 30 01/31/19 07:36 118 22 30 01/31/19 07:30 97.8 87 22 113/70 (84) 100 01/31/19 07:30 22 Mechanical Ventilator 30 01/31/19 07:00 67 22 110/69 (83) 100 01/31/19 07:00 22 Mechanical Ventilator 30 01/31/19 06:55 22 Mechanical Ventilator 30 01/31/19 06:50 22 Mechanical Ventilator 30 01/31/19 06:45 22 Mechanical Ventilator 30 01/31/19 06:40 22 Mechanical Ventilator 30 01/31/19 06:35 22 Mechanical Ventilator 30 01/31/19 06:30 60 22 112/71 (85) 100 01/31/19 06:00 70 22 117/75 (89) 100 01/31/19 06:00 22 Mechanical Ventilator 30 01/31/19 05:30 74 21 118/72 (87) 100 01/31/19 05:03 75 22 30 30 01/31/19 05:00 73 21 129/77 (94) 100 01/31/19 04:50 22 Mechanical Ventilator 30 01/31/19 04:30 77 22 119/73 (88) 100 01/31/19 04:00 Mechanical Ventilator 01/31/19 04:00 97.8 83 22 103/72 (82) 100 01/31/19 04:00 30 01/31/19 04:00 22 Mechanical Ventilator 30 01/31/19 03:30 66 22 143/73 (96) 100 01/31/19 03:19 62 01/31/19 03:00 58 22 119/67 (84) 100 01/31/19 03:00 22 Mechanical Ventilator 30 01/31/19 02:56 64 22 100 Mechanical Ventilator 30 01/31/19 02:46 57 22 30 30 01/31/19 02:46 57 22 100 Mechanical Ventilator 30 01/31/19 02:30 55 22 113/64 (80) 100 01/31/19 02:00 57 22 119/62 (81) 100 01/31/19 02:00 22 Mechanical Ventilator 30 01/31/19 01:30 59 22 116/65 (82) 100 01/31/19 01:00 58 22 105/69 (81) 100 01/31/19 01:00 22 Mechanical Ventilator 30 01/31/19 00:55 57 22 30 30 01/31/19 00:30 56 22 119/69 (86) 100 01/31/19 00:00 22 Mechanical Ventilator 30 01/31/19 00:00 30 01/31/19 00:00 97.8 56 22 121/71 (88) 100 01/31/19 00:00 Mechanical Ventilator 01/30/19 23:30 56 22 135/66 (89) 100 01/30/19 23:27 22 30 01/30/19 23:24 58 01/30/19 23:04 53 22 100 Mechanical Ventilator 30 01/30/19 23:00 63 17 141/63 (89) 100 01/30/19 23:00 17 Mechanical Ventilator 30 01/30/19 22:54 56 22 100 Mechanical Ventilator 30 01/30/19 22:54 57 22 30 30 01/30/19 22:30 55 22 109/72 (84) 100 01/30/19 22:00 54 22 119/65 (83) 100 01/30/19 22:00 22 Mechanical Ventilator 30 01/30/19 21:30 57 22 122/68 (86) 100 01/30/19 21:00 22 Mechanical Ventilator 30 01/30/19 21:00 62 22 115/64 (81) 100 01/30/19 20:48 94 22 30 30 01/30/19 20:30 57 22 103/66 (78) 100 01/30/19 20:15 22 Mechanical Ventilator 30 01/30/19 20:10 22 Mechanical Ventilator 30 01/30/19 20:05 25 Mechanical Ventilator 30 01/30/19 20:00 98.5 56 22 120/68 (85) 100 01/30/19 20:00 Mechanical Ventilator 01/30/19 20:00 22 Mechanical Ventilator 30 01/30/19 20:00 30 01/30/19 19:55 26 Mechanical Ventilator 30 01/30/19 19:50 22 Mechanical Ventilator 30 01/30/19 19:30 59 22 135/71 (92) 100 01/30/19 19:23 58 01/30/19 19:05 60 22 100 Mechanical Ventilator 30 01/30/19 19:00 62 22 112/70 (84) 100 01/30/19 19:00 Mechanical Ventilator 30 01/30/19 18:53 61 22 100 Mechanical Ventilator 30 01/30/19 18:52 61 22 30 30 01/30/19 18:48 20 Endotracheal Tube 30 01/30/19 18:30 59 22 116/67 (83) 01/30/19 18:00 Mechanical Ventilator 30 01/30/19 18:00 64 21 117/75 (89) 01/30/19 17:30 81 22 114/76 (89) 01/30/19 17:30 Endotracheal Tube 30 01/30/19 17:11 65 22 30 30 01/30/19 17:00 20 Mechanical Ventilator 30 01/30/19 17:00 68 22 117/60 (79) 01/30/19 16:30 71 22 117/63 (81) 01/30/19 16:00 98.5 77 22 114/64 (81) 01/30/19 16:00 30 01/30/19 16:00 Endotracheal Tube 30 01/30/19 16:00 87 01/30/19 16:00 Mechanical Ventilator 01/30/19 15:30 17 130/68 (88) 01/30/19 15:29 67 22 98 Mechanical Ventilator 30 01/30/19 15:09 64 22 30 30 01/30/19 15:09 64 22 100 Mechanical Ventilator 30 01/30/19 15:00 61 22 103/74 (84) 01/30/19 15:00 Endotracheal Tube 30 01/30/19 14:50 Mechanical Ventilator 30 01/30/19 14:30 63 22 101/68 (79) 01/30/19 14:00 62 22 112/68 (83) 01/30/19 13:30 63 22 105/67 (80) 01/30/19 13:05 62 22 30 30 01/30/19 13:00 61 22 110/70 (83) 01/30/19 13:00 Mechanical Ventilator 30 01/30/19 12:30 64 22 110/68 (82) 01/30/19 12:00 99.1 65 21 108/65 (79) 01/30/19 12:00 Mechanical Ventilator 01/30/19 12:00 20 Mechanical Ventilator 30 01/30/19 12:00 30 01/30/19 12:00 66 01/30/19 11:30 66 22 112/68 (83) Height (Feet): 5 Height (Inches): 10.00 Weight (Pounds): 152 General Appearance: WD/WN, no acute distress HEENT: normocephalic, atraumatic, anicteric, mucous membranes moist, PERRL Respiratory/Chest: chest wall non-tender, lungs clear, normal breath sounds, no respiratory distress, no accessory muscle use Cardiovascular: normal peripheral pulses, normal rate, regular rhythm, no gallop/murmur, no JVD Abdomen: normal bowel sounds, soft, non tender, no organomegaly, non distended , no mass, no scars Extremities: no cyanosis, no clubbing Skin: no rash, no lesions, no ulcers Neurologic/Psychiatric: alert Lymphatic: no neck adenopathy, no groin adenopathy Musculoskeletal: normal muscle bulk, no effusion Current Medications Medications (Trade) Dose Ordered Sig/Brittani Route PRN Reason Start Time Stop Time Status Last Admin Dose Admin Acetaminophen (Tylenol) 650 mg Q4H PRN NG FOR MILD PAIN 01/26/19 10:15 02/25/19 10:14 Chlorhexidine Gluconate (Renetta-Hex 2%) 1 applic DAILY@2000 TOPIC 01/27/19 20:00 02/26/19 19:59 01/30/19 19:49 Dextrose (Dextrose 50%) 25 ml Q30M PRN IV Hypoglycemia 01/26/19 10:30 02/25/19 10:29 Dextrose (Dextrose 50%) 50 ml Q30M PRN IV Hypoglycemia 01/26/19 10:30 02/25/19 10:29 Dextrose/Sodium Chloride 1,000 ml @ 50 mls/hr Q20H IV 01/30/19 18:00 03/01/19 17:59 01/30/19 18:00 Doxycycline Hyclate 100 mg/ Dextrose 110 ml @ 110 mls/hr Q12HR IV 01/26/19 11:00 02/04/19 23:59 01/31/19 08:35 Enoxaparin Sodium (Lovenox) 40 mg DAILY SUBQ 01/31/19 09:00 03/02/19 08:59 Fentanyl Citrate 1000 mcg/Sodium Chloride 100 ml @ 0 mls/hr Q24H IV 01/26/19 10:27 02/02/19 10:26 01/31/19 11:21 Insulin Aspart (NovoLOG) Q6HR SUBQ 01/26/19 12:00 02/25/19 11:59 01/31/19 05:35 Lorazepam (Ativan 2mg/ml 1ml) 1 mg Q4H PRN IV AGITATION / SEIZURE 01/30/19 15:00 02/06/19 14:59 01/30/19 20:46 Methylprednisolone Sodium Succinate (Solu-MEDROL) 60 mg EVERY 12 HOURS IVP 01/29/19 21:00 02/28/19 20:59 01/31/19 08:35 Morphine Sulfate (Morphine Sulfate) 2 mg Q8H PRN IVP FOR SEVERE PAIN 01/26/19 10:15 02/02/19 10:14 01/29/19 09:33 Pantoprazole (Protonix) 40 mg DAILY IVP 01/26/19 11:00 02/25/19 10:59 01/31/19 08:35 Piperacillin Sod/ Tazobactam Sod 3.375 gm/Sodium Chloride 110 ml @ 27.5 mls/hr EVERY 8 HOURS IVPB 01/27/19 20:00 02/06/19 23:59 01/31/19 05:34 Sodium Chloride 500 ml @ 998.89 mls/ hr Q4H PRN IVPB MAP<60 01/26/19 10:15 02/25/19 10:14 [place] Orlando M.D. Jan 31, 2019 11:29
--- NOTE | 2019-01-31 11:39 | NUR ---
NURSE NOTES: Turned and repositioned. Still very agitated when repositioning patient.
--- NOTE | 2019-01-31 11:58 | NUR ---
SS note This Sw met with patient who is currently intubated, sedated. Patient has a POLST in chart requesting full code, full treatment, while M.D has ordered DNR/DNI per son requests upon this admission. This SW left a message with son, Jah Holly @ [phone] to provide support and discuss any concerns regarding plan of care. Patient is from home.
--- NOTE | 2019-01-31 12:15 | General Progress Note ---
Assessment/Plan Assessment/Plan: s: Intubated. Vent setting reviewed O: Easily arousable, Not following the command PHYSICAL EXAMINATION: GENERAL: An elderly male, lying in bed, intubated on mechanical ventilation, not in acute distress. HEENT: Normocephalic and atraumatic. Pupils slightly responsive to light. Unable to assess oral mucosa with E-tube in place. NECK: Supple. No lymphadenopathy. CARDIOVASCULAR: He is tachycardic. S1, S2 normal. No murmur can be heard. LUNGS: Diminished breathing sounds at the bases. No wheezing or rhonchi. Normal breathing effort. Mechanically ventilated. ABDOMEN: Soft, nontender, and nondistended. Normal bowel sounds. No hepatosplenomegaly or ascites. No organomegaly. EXTREMITIES: No edema or cyanosis. labs: dated Jan 28 reviewed IMAGING: Chest x-ray dated January 26 is negative for any pneumothorax. Meds: reviewed and reconciled ASSESSMENT AND PLAN: 1. Vent dependent respiratory failure. 2. Chronic obstructive pulmonary disease, end-stage, oxygen-dependent. 3. Cardiopulmonary arrest, status post resuscitation x2. 4. Hypertension. 5. Abnormal blood sugar. 6. Anemia. 7. Abn Trop: likely secondary to #3 7. GI and DVT prophylaxis. PLAN OF CARE: Current Antibiotic management Notes from cardiology and ID reviewed Declining levels of troponin Worsening thrombocytopenia DC Heparin Restart Lovenox, will monitor plt count Subjective Allergies: Coded Allergies: No Known Allergies (Unverified , 06/05/18) Objective Last 24 Hour Vital Signs Date Time Temp Pulse Resp B/P (MAP) Pulse Ox O2 Delivery O2 Flow Rate FiO2 01/31/19 12:00 30 01/31/19 12:00 Mechanical Ventilator 01/31/19 12:00 97.9 74 22 114/61 (78) 100 01/31/19 11:51 97.8 01/31/19 11:30 74 22 133/71 (91) 100 01/31/19 11:21 22 Mechanical Ventilator 30 01/31/19 11:00 22 Mechanical Ventilator 30 01/31/19 11:00 70 22 127/72 (90) 100 01/31/19 10:30 86 25 112/78 (89) 100 01/31/19 10:00 22 Mechanical Ventilator 30 01/31/19 10:00 72 22 100/79 (86) 100 01/31/19 09:30 72 22 114/72 (86) 100 01/31/19 09:01 65 22 30 01/31/19 09:00 72 22 108/73 (85) 100 01/31/19 09:00 22 Mechanical Ventilator 30 01/31/19 08:30 72 22 107/73 (84) 100 01/31/19 08:00 Mechanical Ventilator 01/31/19 08:00 30 01/31/19 08:00 22 Mechanical Ventilator 30 01/31/19 08:00 82 01/31/19 08:00 112 36 107/73 (84) 100 01/31/19 07:44 111 22 100 Mechanical Ventilator 30 01/31/19 07:43 Mechanical Ventilator 30 01/31/19 07:43 Mechanical Ventilator 30 01/31/19 07:36 118 22 30 01/31/19 07:30 97.8 87 22 113/70 (84) 100 01/31/19 07:30 22 Mechanical Ventilator 30 01/31/19 07:00 67 22 110/69 (83) 100 01/31/19 07:00 22 Mechanical Ventilator 30 01/31/19 06:55 22 Mechanical Ventilator 30 01/31/19 06:50 22 Mechanical Ventilator 30 01/31/19 06:45 22 Mechanical Ventilator 30 01/31/19 06:40 22 Mechanical Ventilator 30 01/31/19 06:35 22 Mechanical Ventilator 30 01/31/19 06:30 60 22 112/71 (85) 100 01/31/19 06:00 70 22 117/75 (89) 100 01/31/19 06:00 22 Mechanical Ventilator 30 01/31/19 05:30 74 21 118/72 (87) 100 01/31/19 05:03 75 22 30 30 01/31/19 05:00 73 21 129/77 (94) 100 01/31/19 04:50 22 Mechanical Ventilator 30 01/31/19 04:30 77 22 119/73 (88) 100 01/31/19 04:00 Mechanical Ventilator 01/31/19 04:00 97.8 83 22 103/72 (82) 100 01/31/19 04:00 30 01/31/19 04:00 22 Mechanical Ventilator 30 01/31/19 03:30 66 22 143/73 (96) 100 01/31/19 03:19 62 01/31/19 03:00 58 22 119/67 (84) 100 01/31/19 03:00 22 Mechanical Ventilator 30 01/31/19 02:56 64 22 100 Mechanical Ventilator 30 01/31/19 02:46 57 22 30 30 01/31/19 02:46 57 22 100 Mechanical Ventilator 30 01/31/19 02:30 55 22 113/64 (80) 100 01/31/19 02:00 57 22 119/62 (81) 100 01/31/19 02:00 22 Mechanical Ventilator 30 01/31/19 01:30 59 22 116/65 (82) 100 01/31/19 01:00 58 22 105/69 (81) 100 01/31/19 01:00 22 Mechanical Ventilator 30 01/31/19 00:55 57 22 30 30 01/31/19 00:30 56 22 119/69 (86) 100 01/31/19 00:00 22 Mechanical Ventilator 30 01/31/19 00:00 30 01/31/19 00:00 97.8 56 22 121/71 (88) 100 01/31/19 00:00 Mechanical Ventilator 01/30/19 23:30 56 22 135/66 (89) 100 01/30/19 23:27 22 30 01/30/19 23:24 58 01/30/19 23:04 53 22 100 Mechanical Ventilator 30 01/30/19 23:00 63 17 141/63 (89) 100 01/30/19 23:00 17 Mechanical Ventilator 30 01/30/19 22:54 56 22 100 Mechanical Ventilator 30 01/30/19 22:54 57 22 30 30 01/30/19 22:30 55 22 109/72 (84) 100 01/30/19 22:00 54 22 119/65 (83) 100 01/30/19 22:00 22 Mechanical Ventilator 30 01/30/19 21:30 57 22 122/68 (86) 100 01/30/19 21:00 22 Mechanical Ventilator 30 01/30/19 21:00 62 22 115/64 (81) 100 01/30/19 20:48 94 22 30 30 01/30/19 20:30 57 22 103/66 (78) 100 01/30/19 20:15 22 Mechanical Ventilator 30 01/30/19 20:10 22 Mechanical Ventilator 30 01/30/19 20:05 25 Mechanical Ventilator 30 01/30/19 20:00 98.5 56 22 120/68 (85) 100 01/30/19 20:00 Mechanical Ventilator 01/30/19 20:00 22 Mechanical Ventilator 30 01/30/19 20:00 30 01/30/19 19:55 26 Mechanical Ventilator 30 01/30/19 19:50 22 Mechanical Ventilator 30 01/30/19 19:30 59 22 135/71 (92) 100 01/30/19 19:23 58 01/30/19 19:05 60 22 100 Mechanical Ventilator 30 01/30/19 19:00 62 22 112/70 (84) 100 01/30/19 19:00 Mechanical Ventilator 30 01/30/19 18:53 61 22 100 Mechanical Ventilator 30 01/30/19 18:52 61 22 30 30 01/30/19 18:48 20 Endotracheal Tube 30 01/30/19 18:30 59 22 116/67 (83) 01/30/19 18:00 Mechanical Ventilator 30 01/30/19 18:00 64 21 117/75 (89) 01/30/19 17:30 81 22 114/76 (89) 01/30/19 17:30 Endotracheal Tube 30 01/30/19 17:11 65 22 30 30 01/30/19 17:00 20 Mechanical Ventilator 30 01/30/19 17:00 68 22 117/60 (79) 01/30/19 16:30 71 22 117/63 (81) 01/30/19 16:00 98.5 77 22 114/64 (81) 01/30/19 16:00 30 01/30/19 16:00 Endotracheal Tube 30 01/30/19 16:00 87 01/30/19 16:00 Mechanical Ventilator 01/30/19 15:30 17 130/68 (88) 01/30/19 15:29 67 22 98 Mechanical Ventilator 30 01/30/19 15:09 64 22 30 30 01/30/19 15:09 64 22 100 Mechanical Ventilator 30 01/30/19 15:00 61 22 103/74 (84) 01/30/19 15:00 Endotracheal Tube 30 01/30/19 14:50 Mechanical Ventilator 30 01/30/19 14:30 63 22 101/68 (79) 01/30/19 14:00 62 22 112/68 (83) 01/30/19 13:30 63 22 105/67 (80) 01/30/19 13:05 62 22 30 30 01/30/19 13:00 61 22 110/70 (83) 01/30/19 13:00 Mechanical Ventilator 30 01/30/19 12:30 64 22 110/68 (82) Intake and Output 01/30/19 01/31/19 19:00 07:00 Intake Total 1637.5 ml 1348.5 ml Output Total 470 ml 640 ml Balance 1167.5 ml 708.5 ml IV Total 1577.5 ml 1093.5 ml Tube Feeding 60 ml 255 ml Output Urine Total 470 ml 640 ml Height (Feet): 5 Height (Inches): 10.00 Weight (Pounds): 152 Brianne Henry MD Jan 31, 2019 12:15
--- NOTE | 2019-01-31 13:20 | NUR ---
NURSE NOTES: Turned and repositioned. Titrated Fentanyl down to meet RASS -2. Turned and repositioned.
[2019-01-31] MEDS: D5NS 1,000 ML IV SCH (14:19)
--- NOTE | 2019-01-31 15:13 | NUR ---
Social Work This SW spoke with sonJah who explains he is the only child (and decision maker for patient). Patient was living with son and nephew and has the following DME at home: Bipap, 02, Concentrator, Nebulizer Treatments, wheelchair (for the community only). Patient was independent with all ADLs, ambulation, according to son (with son or nephew at home with patient at all times; son works nights). Patient has been at [facility] in the past for short term rehab as well. Son confirmed DNR for patient (and discussed this with the MD upon admission). New POLST to be completed/signed by son when able. Patient was alert/oriented x4 prior, with slight forgetfulness prior. Patient does not have any mental health or substance abuse concerns, according to son and quit smoking cigarettes over eight years ago. Pending current progress at this time.
--- NOTE | 2019-01-31 15:33 | NUR ---
NURSE NOTES: Dr. White making rounds at bedside. Received orders to change AC to 16, CXR in AM, draw ABG while on CPAP tomorrow if patient able to tolerate CPAP for at least 30 minutes. Read back given and verified.
--- NOTE | 2019-01-31 17:15 | Pulmonolgy Critical Care Note ---
Critical Care - Asmt/Plan Assessment/Plan: Pulmonary Critical Care Progress Note HPI Patient is a 73 year olf man with previous history of COPD, CHF, HTN, DM admitted with extreme respiratory distress, intubated in the ED, subsequent Cardiac Arrest. Noted to have hypercapneic respiratory failure. Interactive today, improved ventilator requirements, did not tolerate weaning today - high RR/agitation CT Head negative Allergies: No Known Allergies Past Medical History: COPD/Asthma, CHF, Hypertension, DM All Other Systems: limited Physical Exam Vital signs noted General Appearance: sedated on ventilator Head: normocephalic, atraumatic Eyes: bilateral eye PERRL, bilateral eye EOMI ENT: moist mm, no LN Neck: supple Respiratory: generally reduced BS, occasional wheeze Cardiovascular: tachycardia, HS1, HS2, RRR Gastrointestinal: non tender, soft Musculoskeletal: normal inspection Neurologic: sedated on ventilator Skin: no rash, palpation normal Impression: COPD exacerbation Hypercapneic respiratory failure S/p cardiac arrest in the ED CHF HTN Diabetes Plan Wean as tolerated Adjust FIO2 for sats 90-94% HHN Q4 IV Solumedrol Sedation PRN Sz management Monitor labs PPX IV Doxycycline DNR status Labs Test 01/26/19 05:45 White Blood Count 9.6 K/UL (4.8-10.8) Red Blood Count 4.57 M/UL (4.70-6.10) Hemoglobin 13.5 G/DL (14.2-18.0) Hematocrit 46.0 % (42.0-52.0) Mean Corpuscular Volume 101 FL (80-99) Mean Corpuscular Hemoglobin 29.6 PG (27.0-31.0) Mean Corpuscular Hemoglobin Concent 29.4 G/DL (32.0-36.0) Red Cell Distribution Width 15.2 % (11.6-14.8) Platelet Count 181 K/UL (150-450) Mean Platelet Volume 7.5 FL (6.5-10.1) Neutrophils (%) (Auto) 49.7 % (45.0-75.0) Lymphocytes (%) (Auto) 33.3 % (20.0-45.0) Monocytes (%) (Auto) 8.2 % (1.0-10.0) Eosinophils (%) (Auto) 8.2 % (0.0-3.0) Basophils (%) (Auto) 0.7 % (0.0-2.0) Lactic Acid Level 0.80 mmol/L (0.4-2.0) Chest X-Ray: No consolidation, no effusion, ETT tube 7cm, RIJ line good position Critical Care - Objective Last 24 Hour Vital Signs Date Time Temp Pulse Resp B/P (MAP) Pulse Ox O2 Delivery O2 Flow Rate FiO2 01/31/19 17:06 68 16 30 01/31/19 17:00 68 16 104/70 (81) 100 01/31/19 16:30 69 16 106/70 (82) 100 01/31/19 16:00 78 01/31/19 16:00 98.1 78 22 175/75 (108) 100 01/31/19 16:00 Mechanical Ventilator 01/31/19 16:00 22 Mechanical Ventilator 30 01/31/19 16:00 Mechanical Ventilator 30 01/31/19 16:00 30 01/31/19 15:30 69 22 135/74 (94) 100 01/31/19 15:10 67 16 30 01/31/19 15:00 22 Mechanical Ventilator 30 01/31/19 14:00 75 22 116/75 (89) 100 01/31/19 14:00 22 Mechanical Ventilator 30 01/31/19 13:30 79 22 117/69 (85) 100 01/31/19 13:00 22 Mechanical Ventilator 30 01/31/19 13:00 71 22 115/73 (87) 100 01/31/19 12:30 72 22 30 01/31/19 12:30 72 22 114/71 (85) 100 01/31/19 12:00 30 01/31/19 12:00 Mechanical Ventilator 01/31/19 12:00 97.9 74 22 114/61 (78) 100 01/31/19 12:00 22 Mechanical Ventilator 30 01/31/19 12:00 75 01/31/19 11:51 97.8 01/31/19 11:30 74 22 133/71 (91) 100 01/31/19 11:21 22 Mechanical Ventilator 30 01/31/19 11:20 72 22 30 01/31/19 11:00 22 Mechanical Ventilator 30 01/31/19 11:00 70 22 127/72 (90) 100 01/31/19 10:30 86 25 112/78 (89) 100 01/31/19 10:00 22 Mechanical Ventilator 30 01/31/19 10:00 72 22 100/79 (86) 100 01/31/19 09:30 72 22 114/72 (86) 100 01/31/19 09:01 65 22 30 01/31/19 09:00 72 22 108/73 (85) 100 01/31/19 09:00 22 Mechanical Ventilator 30 01/31/19 08:30 72 22 107/73 (84) 100 01/31/19 08:00 Mechanical Ventilator 01/31/19 08:00 30 01/31/19 08:00 22 Mechanical Ventilator 30 01/31/19 08:00 82 01/31/19 08:00 112 36 107/73 (84) 100 01/31/19 07:44 111 22 100 Mechanical Ventilator 30 01/31/19 07:43 Mechanical Ventilator 30 01/31/19 07:43 Mechanical Ventilator 30 01/31/19 07:36 118 22 30 01/31/19 07:30 97.8 87 22 113/70 (84) 100 01/31/19 07:30 22 Mechanical Ventilator 30 01/31/19 07:00 67 22 110/69 (83) 100 01/31/19 07:00 22 Mechanical Ventilator 30 01/31/19 06:55 22 Mechanical Ventilator 01/31/19 06:50 22 Mechanical Ventilator 30 01/31/19 06:45 22 Mechanical Ventilator 30 01/31/19 06:40 22 Mechanical Ventilator 30 01/31/19 06:35 22 Mechanical Ventilator 01/31/19 06:30 60 22 112/71 (85) 100 01/31/19 06:00 70 22 117/75 (89) 100 01/31/19 06:00 22 Mechanical Ventilator 30 01/31/19 05:30 74 21 118/72 (87) 100 01/31/19 05:03 75 22 30 30 01/31/19 05:00 73 21 129/77 (94) 100 01/31/19 04:50 22 Mechanical Ventilator 30 01/31/19 04:30 77 22 119/73 (88) 100 01/31/19 04:00 Mechanical Ventilator 01/31/19 04:00 97.8 83 22 103/72 (82) 100 01/31/19 04:00 30 01/31/19 04:00 22 Mechanical Ventilator 30 01/31/19 03:30 66 22 143/73 (96) 100 01/31/19 03:19 62 01/31/19 03:00 58 22 119/67 (84) 100 01/31/19 03:00 22 Mechanical Ventilator 30 01/31/19 02:56 64 22 100 Mechanical Ventilator 30 01/31/19 02:46 57 22 30 30 01/31/19 02:46 57 22 100 Mechanical Ventilator 30 01/31/19 02:30 55 22 113/64 (80) 100 01/31/19 02:00 57 22 119/62 (81) 100 01/31/19 02:00 22 Mechanical Ventilator 30 01/31/19 01:30 59 22 116/65 (82) 100 01/31/19 01:00 58 22 105/69 (81) 100 01/31/19 01:00 22 Mechanical Ventilator 30 01/31/19 00:55 57 22 30 30 01/31/19 00:30 56 22 119/69 (86) 100 01/31/19 00:00 22 Mechanical Ventilator 30 01/31/19 00:00 30 01/31/19 00:00 97.8 56 22 121/71 (88) 100 01/31/19 00:00 Mechanical Ventilator 01/30/19 23:30 56 22 135/66 (89) 100 01/30/19 23:27 22 30 01/30/19 23:24 58 01/30/19 23:04 53 22 100 Mechanical Ventilator 30 01/30/19 23:00 63 17 141/63 (89) 100 01/30/19 23:00 17 Mechanical Ventilator 30 01/30/19 22:54 56 22 100 Mechanical Ventilator 30 01/30/19 22:54 57 22 30 30 01/30/19 22:30 55 22 109/72 (84) 100 01/30/19 22:00 54 22 119/65 (83) 100 01/30/19 22:00 22 Mechanical Ventilator 30 01/30/19 21:30 57 22 122/68 (86) 100 01/30/19 21:00 22 Mechanical Ventilator 30 01/30/19 21:00 62 22 115/64 (81) 100 01/30/19 20:48 94 22 30 30 01/30/19 20:30 57 22 103/66 (78) 100 01/30/19 20:15 22 Mechanical Ventilator 30 01/30/19 20:10 22 Mechanical Ventilator 30 01/30/19 20:05 25 Mechanical Ventilator 30 01/30/19 20:00 98.5 56 22 120/68 (85) 100 01/30/19 20:00 Mechanical Ventilator 01/30/19 20:00 22 Mechanical Ventilator 30 01/30/19 20:00 30 01/30/19 19:55 26 Mechanical Ventilator 30 01/30/19 19:50 22 Mechanical Ventilator 30 01/30/19 19:30 59 22 135/71 (92) 100 01/30/19 19:23 58 01/30/19 19:05 60 22 100 Mechanical Ventilator 30 01/30/19 19:00 62 22 112/70 (84) 100 01/30/19 19:00 Mechanical Ventilator 30 01/30/19 18:53 61 22 100 Mechanical Ventilator 30 01/30/19 18:52 61 22 30 30 01/30/19 18:48 20 Endotracheal Tube 30 01/30/19 18:30 59 22 116/67 (83) 01/30/19 18:00 Mechanical Ventilator 30 01/30/19 18:00 64 21 117/75 (89) 01/30/19 17:30 81 22 114/76 (89) 01/30/19 17:30 Endotracheal Tube 30 Accucheck: 94 Critical Care - Subjective ROS Limited/Unobtainable: No FI02: 30 Vent Support Breath Rate: 16 Vent Support Mode: AC Vent Tidal Volume: 500 Sputum Amount: Small PEEP: 5.0 PIP: 43 Tube Feeding Amount: 45 I&O: Intake and Output 01/30/19 01/31/19 19:00 07:00 Intake Total 1637.5 ml 1348.5 ml Output Total 470 ml 640 ml Balance 1167.5 ml 708.5 ml IV Total 1577.5 ml 1093.5 ml Tube Feeding 60 ml 255 ml Output Urine Total 470 ml 640 ml ET-Tube: 8.0 ET Position: 25 Johny White MD Jan 31, 2019 17:15
--- NOTE | 2019-01-31 18:37 | Cardiology Progress Note ---
Assessment/Plan Assessment/Plan 1. Acute respiratory failure, intubated, DNR status, weaning in progress. 2. Cardiopulmonary arrest x 2. 3. Non-STEMI, conservative management. 4. Moderate aortic regurgitation with normal LV systolic function. Subjective Subjective Sinus rhythm at rate of 70. Intubated arousable. Objective Last 24 Hour Vital Signs Date Time Temp Pulse Resp B/P (MAP) Pulse Ox O2 Delivery O2 Flow Rate FiO2 01/31/19 18:00 16 Mechanical Ventilator 30 01/31/19 18:00 65 16 107/71 (83) 100 01/31/19 17:30 68 16 109/69 (82) 100 01/31/19 17:06 68 16 30 01/31/19 17:00 16 Mechanical Ventilator 30 01/31/19 17:00 68 16 104/70 (81) 100 01/31/19 16:30 69 16 106/70 (82) 100 01/31/19 16:00 78 01/31/19 16:00 98.1 78 22 175/75 (108) 100 01/31/19 16:00 Mechanical Ventilator 01/31/19 16:00 22 Mechanical Ventilator 30 01/31/19 16:00 Mechanical Ventilator 30 01/31/19 16:00 30 01/31/19 15:30 69 22 135/74 (94) 100 01/31/19 15:10 67 16 30 01/31/19 15:00 22 Mechanical Ventilator 30 01/31/19 14:00 75 22 116/75 (89) 100 01/31/19 14:00 22 Mechanical Ventilator 30 01/31/19 13:30 79 22 117/69 (85) 100 01/31/19 13:00 22 Mechanical Ventilator 30 01/31/19 13:00 71 22 115/73 (87) 100 01/31/19 12:30 72 22 30 01/31/19 12:30 72 22 114/71 (85) 100 01/31/19 12:00 30 01/31/19 12:00 Mechanical Ventilator 01/31/19 12:00 97.9 74 22 114/61 (78) 100 01/31/19 12:00 22 Mechanical Ventilator 30 01/31/19 12:00 75 01/31/19 11:51 97.8 01/31/19 11:30 74 22 133/71 (91) 100 01/31/19 11:21 22 Mechanical Ventilator 30 01/31/19 11:20 72 22 30 01/31/19 11:00 22 Mechanical Ventilator 30 01/31/19 11:00 70 22 127/72 (90) 100 01/31/19 10:30 86 25 112/78 (89) 100 01/31/19 10:00 22 Mechanical Ventilator 30 01/31/19 10:00 72 22 100/79 (86) 100 01/31/19 09:30 72 22 114/72 (86) 100 01/31/19 09:01 65 22 30 01/31/19 09:00 72 22 108/73 (85) 100 01/31/19 09:00 22 Mechanical Ventilator 30 01/31/19 08:30 72 22 107/73 (84) 100 01/31/19 08:00 Mechanical Ventilator 01/31/19 08:00 30 01/31/19 08:00 22 Mechanical Ventilator 30 01/31/19 08:00 82 01/31/19 08:00 112 36 107/73 (84) 100 01/31/19 07:44 111 22 100 Mechanical Ventilator 30 01/31/19 07:43 Mechanical Ventilator 30 01/31/19 07:43 Mechanical Ventilator 30 01/31/19 07:36 118 22 30 01/31/19 07:30 97.8 87 22 113/70 (84) 100 01/31/19 07:30 22 Mechanical Ventilator 30 01/31/19 07:00 67 22 110/69 (83) 100 01/31/19 07:00 22 Mechanical Ventilator 01/31/19 06:55 22 Mechanical Ventilator 01/31/19 06:50 22 Mechanical Ventilator 30 01/31/19 06:45 22 Mechanical Ventilator 30 01/31/19 06:40 22 Mechanical Ventilator 30 01/31/19 06:35 22 Mechanical Ventilator 30 01/31/19 06:30 60 22 112/71 (85) 100 01/31/19 06:00 70 22 117/75 (89) 100 01/31/19 06:00 22 Mechanical Ventilator 30 01/31/19 05:30 74 21 118/72 (87) 100 01/31/19 05:03 75 22 30 30 01/31/19 05:00 73 21 129/77 (94) 100 01/31/19 04:50 22 Mechanical Ventilator 30 01/31/19 04:30 77 22 119/73 (88) 100 01/31/19 04:00 Mechanical Ventilator 01/31/19 04:00 97.8 83 22 103/72 (82) 100 01/31/19 04:00 30 01/31/19 04:00 22 Mechanical Ventilator 30 01/31/19 03:30 66 22 143/73 (96) 100 01/31/19 03:19 62 01/31/19 03:00 58 22 119/67 (84) 100 01/31/19 03:00 22 Mechanical Ventilator 30 01/31/19 02:56 64 22 100 Mechanical Ventilator 30 01/31/19 02:46 57 22 30 30 01/31/19 02:46 57 22 100 Mechanical Ventilator 30 01/31/19 02:30 55 22 113/64 (80) 100 01/31/19 02:00 57 22 119/62 (81) 100 01/31/19 02:00 22 Mechanical Ventilator 01/31/19 01:30 59 22 116/65 (82) 100 01/31/19 01:00 58 22 105/69 (81) 100 01/31/19 01:00 22 Mechanical Ventilator 30 01/31/19 00:55 57 22 30 30 01/31/19 00:30 56 22 119/69 (86) 100 01/31/19 00:00 22 Mechanical Ventilator 30 01/31/19 00:00 30 01/31/19 00:00 97.8 56 22 121/71 (88) 100 01/31/19 00:00 Mechanical Ventilator 01/30/19 23:30 56 22 135/66 (89) 100 01/30/19 23:27 22 30 01/30/19 23:24 58 01/30/19 23:04 53 22 100 Mechanical Ventilator 30 01/30/19 23:00 63 17 141/63 (89) 100 01/30/19 23:00 17 Mechanical Ventilator 30 01/30/19 22:54 56 22 100 Mechanical Ventilator 30 01/30/19 22:54 57 22 30 30 01/30/19 22:30 55 22 109/72 (84) 100 01/30/19 22:00 54 22 119/65 (83) 100 01/30/19 22:00 22 Mechanical Ventilator 30 01/30/19 21:30 57 22 122/68 (86) 100 01/30/19 21:00 22 Mechanical Ventilator 30 01/30/19 21:00 62 22 115/64 (81) 100 01/30/19 20:48 94 22 30 30 01/30/19 20:30 57 22 103/66 (78) 100 01/30/19 20:15 22 Mechanical Ventilator 30 01/30/19 20:10 22 Mechanical Ventilator 30 01/30/19 20:05 25 Mechanical Ventilator 30 01/30/19 20:00 98.5 56 22 120/68 (85) 100 01/30/19 20:00 Mechanical Ventilator 01/30/19 20:00 22 Mechanical Ventilator 30 01/30/19 20:00 30 01/30/19 19:55 26 Mechanical Ventilator 30 01/30/19 19:50 22 Mechanical Ventilator 30 01/30/19 19:30 59 22 135/71 (92) 100 01/30/19 19:23 58 01/30/19 19:05 60 22 100 Mechanical Ventilator 30 01/30/19 19:00 62 22 112/70 (84) 100 01/30/19 19:00 Mechanical Ventilator 30 01/30/19 18:53 61 22 100 Mechanical Ventilator 30 01/30/19 18:52 61 22 30 30 01/30/19 18:48 20 Endotracheal Tube 30 Intake and Output 01/30/19 01/31/19 19:00 07:00 Intake Total 1637.5 ml 1348.5 ml Output Total 470 ml 640 ml Balance 1167.5 ml 708.5 ml IV Total 1577.5 ml 1093.5 ml Tube Feeding 60 ml 255 ml Output Urine Total 470 ml 640 ml 2D Echo: LVEF 55%, moderate AR Laboratory Tests Test 01/31/19 16:00 Ferritin 248 NG/ML (8-388) HIV (1&2) Antibody Rapid Negative (NEGATIVE) Objective HEENT: Arousable, Orally intubated, conjunctival pallor. LUNGS: Bilateral breath sounds. Few rhonchi. No wheezing. CARDIAC: Regular rhythm and rate. Normal S1 and S2. No murmurs, gallops or rubs. ABDOMEN: Soft, non-distended, + BS. EXTREMITIES: No edema. Capillary refill is diminished. Lv Zuniga MD Jan 31, 2019 18:37
--- NOTE | 2019-01-31 18:47 | NUR ---
NURSE NOTES: Blood sugar 116mg/dl, 2 units of insulin given. On going fentanyl drip to meet RASS -2. Turned and repositioned. Oral care done. VSS. Patient still easily arousable.
--- NOTE | 2019-01-31 19:02 | NUR ---
HAND-OFF: Report given to GENNY Guzman.
[2019-01-31] MEDS: Dyna-Hex 2% Top Sol 2oz TOPIC SCH (19:31)
--- NOTE | 2019-01-31 19:45 | NUR ---
NURSE NOTES: PATIENT SEDATED, ON ETT TO VENT, AC 16/TV 500/FIO2 30%/PEEP 5, O2 SATURATION 100% NOTED, NGT TO RIGHT NARES, ONGOING VITAL AF 1.2 AT 45ML/HR, NO RESIDUE NOTED, KEPT HOB OVER 30 DEGREES, ABDOMEN NON TENDER, NO BOWEL MOVEMENT STATUS, F/C INTACT AND PATENT, YELLOW URINE OUTED, TLC TO RIGHT IJ AND PERIPHERAL LINE TO RIGHT FA 20G INTACT AND PATENT, ONGOING D5 NS AT 50ML/HR AND FENTANYL DRIP 200MCG/HR VIA TLC, KEPT 2 POINT SOFT RESTRAINTS FOR SAFETY, MADE LOWER BED POSITION AND ON BED ALARM, PROVIDED CALL LIGHT WITHIN REACH, WILL CONTINUE TO MONITOR.
--- NOTE | 2019-01-31 22:00 | NUR ---
NURSE NOTES: REPOSITIONED, ORAL CARE WAS DONE.
[2019-02-01] VITALS (55 sets, daily range): BP systolic 98–186; BP diastolic 56–127
[2019-02-01] MEDS: NovoLOG Insulin Flexpen SUBQ SCH ×5 (00:05→23:45)
[2019-02-01] MEDS: LORazepam Inj 2mg/ml 1ml IV PRN (00:18)
--- NOTE | 2019-02-01 00:18 | NUR ---
NURSE NOTES: PATIENT AGITATED, GIVEN ATIVAN 1MG BY IVP SLOWLY ORDERED, KEPT FENTANYL DRIP 200MCG/HR, WILL CONTINUE TO MONITOR.
--- NOTE | 2019-02-01 02:20 | NUR ---
NURSE NOTES: PATIENT CALM, SEDATED, KEPT RASS SCORE -2 AT THIS TIME.
--- NOTE | 2019-02-01 04:00 | NUR ---
NURSE NOTES: MORNING CARE WAS DONE, NO BOWEL MOVEMENT STATUS.
[2019-02-01 04:37] LABS: HEMATOCRIT 32.6 % (42.0-52.0); MEAN CORPUSCULAR VOLUME 98 FL (80-99); PLATELET COUNT 105 K/UL (150-450); RED BLOOD COUNT 3.32 M/UL (4.70-6.10); RED CELL DISTRIBUTION WIDTH 15.2 % (11.6-14.8); WHITE BLOOD COUNT 11.8 K/UL (4.8-10.8)
[2019-02-01 04:52] LABS: ANION GAP 4 mmol/L (5-15); BLOOD UREA NITROGEN 39 mg/dL (7-18); CARBON DIOXIDE 28 MMOL/L (21-32); CHLORIDE 114 MMOL/L (98-107); CREATININE 0.9 MG/DL (0.55-1.30); POTASSIUM 4.1 MMOL/L (3.5-5.1); SODIUM 146 MMOL/L (136-145)
[2019-02-01] MEDS: Piperacillin/Tazobactam 3.375 GM in NS 110 ML IVPB SCH ×3 (05:55→21:47)
--- NOTE | 2019-02-01 06:00 | NUR ---
NURSE NOTES: NO ACUTE DISTRESS NOTED AT THIS SHIFT, RELEASED RESTRAINTS AND REAPPLIED FOR SAFETY.
--- NOTE | 2019-02-01 07:05 | NUR ---
HAND-OFF: Report given to Tona PINTO RN.
--- NOTE | 2019-02-01 07:24 | NUR ---
NURSE NOTES: Received pt from GENNY Guzman. Patient is drowsy, RASS 0. Able to nod yes or no. Orally intubated ETT 8.0/23cm at lip line, 16/500/30%/+5, Spo2 100%, RR 16. Bilateral b/s diminished. Right nare NGT clamped for weaning this AM. Abd is non-distended but firm. RIJ TLC running fentanyl@130mc/kg/hr and D5NS@50ml/hr. RFA 20G patent and asymptomatic. Newly inserted FC draining well to gravity. DNR status maintained. Sinus rhythm on traffic monitor specialist. No signs of distress at this time. Bed locked, alarmed and in lowest position. Will continue plan of care.
[2019-02-01] MEDS: Solu-MEDROL 125mg Inj IVP SCH ×2 (08:54→20:33)
[2019-02-01] MEDS: Pantoprazole Inj IVP SCH (08:54)
[2019-02-01] MEDS: Enoxaparin 40mg Inj SUBQ SCH (08:54)
[2019-02-01] MEDS: Doxycycline Hyclate 100 MG in D5W 110 ML IV SCH ×2 (08:56→20:34)
--- NOTE | 2019-02-01 09:00 | NUR ---
NURSE NOTES: Weaning initiated on CPAP/PS 8. SPO2 98%, RR 17, BP 110/78, HR 76, T 97.8 axillary. Tolerating well, will see how long patient can tolerate and draw ABG after as ordered.
[2019-02-01] MEDS ORDERED: NS Irrig 1000ml ONE (09:07)
[2019-02-01] MEDS ORDERED: NS 500ML ONE (09:07)
[2019-02-01] MEDS ORDERED: D5NS 1000ml IV ONE (09:07)
[2019-02-01] MEDS ORDERED: NS 275ml ONE (09:07)
[2019-02-01] MEDS: D5NS 1,000 ML IV SCH (09:41)
--- NOTE | 2019-02-01 10:51 | General Progress Note ---
Assessment/Plan Assessment/Plan: s: Intubated. Vent setting reviewed O: Easily arousble, Not following the command PHYSICAL EXAMINATION: GENERAL: An elderly male, lying in bed, intubated on mechanical ventilation, not in acute distress. HEENT: Normocephalic and atraumatic. Pupils slightly responsive to light. Unable to assess oral mucosa with E-tube in place. NECK: Supple. No lymphadenopathy. CARDIOVASCULAR: He is tachycardic. S1, S2 normal. No murmur can be heard. LUNGS: Diminished breathing sounds at the bases. No wheezing or rhonchi. Normal breathing effort. Mechanically ventilated. ABDOMEN: Soft, nontender, and nondistended. Normal bowel sounds. No hepatosplenomegaly or ascites. No organomegaly. EXTREMITIES: No edema or cyanosis. labs: dated Jan 28 reviewed IMAGING: Chest x-ray dated January 26 is negative for any pneumothorax. Meds: reviewed and reconciled ASSESSMENT AND PLAN: 1. Vent dependent respiratory failure. 2. Chronic obstructive pulmonary disease, end-stage, oxygen-dependent. 3. Cardiopulmonary arrest, status post resuscitation x2. 4. Hypertension. 5. Abnormal blood sugar. 6. Anemia. 7. Abn Trop: likely secondary to #3 7. GI and DVT prophylaxis. PLAN OF CARE: Current Antibiotic management Notes from cardiology and ID reviewed Declining levels of troponin Worsening thrombocytopenia DC Heparin Restart Lovenox, will monitor plt count Weaning protocol , defer to pulmonary Subjective Allergies: Coded Allergies: No Known Allergies (Unverified , 06/05/18) Objective Last 24 Hour Vital Signs Date Time Temp Pulse Resp B/P (MAP) Pulse Ox O2 Delivery O2 Flow Rate FiO2 02/01/19 10:00 68 13 110/59 (76) 100 02/01/19 09:30 78 11 103/63 (76) 100 02/01/19 09:07 92 13 30 30 02/01/19 09:00 30 02/01/19 09:00 94 15 110/69 (83) 98 02/01/19 08:30 57 16 110/69 (83) 100 02/01/19 08:00 30 02/01/19 08:00 56 16 104/70 (81) 100 02/01/19 08:00 Mechanical Ventilator 02/01/19 08:00 57 02/01/19 07:30 97.6 57 16 106/72 (83) 100 02/01/19 07:05 60 16 30 02/01/19 07:00 61 16 104/66 (79) 100 02/01/19 07:00 16 Mechanical Ventilator 30 02/01/19 06:50 16 Mechanical Ventilator 30 02/01/19 06:45 16 Mechanical Ventilator 30 02/01/19 06:40 16 Mechanical Ventilator 30 02/01/19 06:30 60 16 100/66 (77) 100 02/01/19 06:10 16 Mechanical Ventilator 30 02/01/19 06:00 16 Mechanical Ventilator 30 02/01/19 06:00 61 16 105/65 (78) 100 02/01/19 05:30 61 16 99/69 (79) 100 02/01/19 05:13 59 16 30 02/01/19 05:05 16 30 02/01/19 05:00 57 16 101/68 (79) 100 02/01/19 05:00 16 Mechanical Ventilator 30 02/01/19 04:30 61 16 107/67 (80) 100 02/01/19 04:00 Mechanical Ventilator 02/01/19 04:00 16 Mechanical Ventilator 30 02/01/19 04:00 30 02/01/19 04:00 97.5 68 16 107/71 (83) 99 02/01/19 03:30 62 16 98/70 (79) 100 02/01/19 03:19 62 02/01/19 03:08 62 16 30 02/01/19 03:00 16 Mechanical Ventilator 30 02/01/19 03:00 59 16 105/70 (82) 100 02/01/19 02:30 63 16 102/78 (86) 100 02/01/19 02:00 65 16 100/78 (85) 100 02/01/19 02:00 16 Mechanical Ventilator 30 02/01/19 01:30 60 15 119/77 (91) 100 02/01/19 01:19 66 16 30 02/01/19 01:00 16 Mechanical Ventilator 30 02/01/19 01:00 66 16 111/70 (84) 100 02/01/19 00:30 78 16 112/74 (87) 100 02/01/19 00:12 99 16 129/81 (97) 94 02/01/19 00:07 22 Mechanical Ventilator 30 02/01/19 00:00 30 02/01/19 00:00 Mechanical Ventilator 02/01/19 00:00 16 Mechanical Ventilator 30 02/01/19 00:00 97.8 110 23 186/127 (146) 100 01/31/19 23:30 64 16 117/75 (89) 100 01/31/19 23:16 65 16 30 01/31/19 23:11 65 01/31/19 23:00 16 Mechanical Ventilator 30 01/31/19 23:00 65 16 111/77 (88) 100 01/31/19 22:30 66 16 108/82 (91) 100 01/31/19 22:00 65 16 115/77 (90) 100 01/31/19 22:00 16 Mechanical Ventilator 30 01/31/19 21:30 64 16 112/79 (90) 100 01/31/19 21:00 63 16 116/81 (93) 100 01/31/19 21:00 16 Mechanical Ventilator 30 01/31/19 20:39 64 16 30 01/31/19 20:30 66 16 111/72 (85) 100 01/31/19 20:00 30 01/31/19 20:00 16 Mechanical Ventilator 30 01/31/19 20:00 Mechanical Ventilator 01/31/19 20:00 97.8 64 16 109/69 (82) 100 01/31/19 19:30 64 16 107/70 (82) 100 01/31/19 19:12 65 01/31/19 19:03 98.1 01/31/19 19:02 66 16 30 01/31/19 19:00 67 16 136/89 (105) 100 01/31/19 19:00 16 Mechanical Ventilator 30 01/31/19 18:33 16 Mechanical Ventilator 30.0 30 01/31/19 18:30 68 16 137/90 (106) 100 01/31/19 18:00 16 Mechanical Ventilator 30 01/31/19 18:00 65 16 107/71 (83) 100 01/31/19 17:30 68 16 109/69 (82) 100 01/31/19 17:06 68 16 30 01/31/19 17:00 16 Mechanical Ventilator 30 01/31/19 17:00 68 16 104/70 (81) 100 01/31/19 16:30 69 16 106/70 (82) 100 01/31/19 16:00 78 01/31/19 16:00 98.1 78 22 175/75 (108) 100 01/31/19 16:00 Mechanical Ventilator 01/31/19 16:00 22 Mechanical Ventilator 30 01/31/19 16:00 Mechanical Ventilator 30 01/31/19 16:00 30 01/31/19 15:30 69 22 135/74 (94) 100 01/31/19 15:10 67 16 30 01/31/19 15:00 22 Mechanical Ventilator 30 01/31/19 14:00 75 22 116/75 (89) 100 01/31/19 14:00 22 Mechanical Ventilator 30 01/31/19 13:30 79 22 117/69 (85) 100 01/31/19 13:00 22 Mechanical Ventilator 30 01/31/19 13:00 71 22 115/73 (87) 100 01/31/19 12:30 72 22 30 01/31/19 12:30 72 22 114/71 (85) 100 01/31/19 12:00 30 01/31/19 12:00 Mechanical Ventilator 01/31/19 12:00 97.9 74 22 114/61 (78) 100 01/31/19 12:00 22 Mechanical Ventilator 30 01/31/19 12:00 75 01/31/19 11:30 74 22 133/71 (91) 100 01/31/19 11:21 22 Mechanical Ventilator 30 01/31/19 11:20 72 22 30 01/31/19 11:00 22 Mechanical Ventilator 30 01/31/19 11:00 70 22 127/72 (90) 100 Intake and Output 01/31/19 02/01/19 18:59 06:59 Intake Total 1338.5 ml 1650.0 ml Output Total 680 ml 590 ml Balance 658.5 ml 1060.0 ml Intake Free Water 120 ml IV Total 893.5 ml 1060.0 ml Tube Feeding 325 ml 590 ml Output Urine Total 680 ml 590 ml Laboratory Tests 01/31/19 16:00: Ferritin 248, HIV (1&2) Antibody Rapid Negative 02/01/19 03:40: White Blood Count 11.8H, Red Blood Count 3.32L, Hemoglobin 10.0L, Hematocrit 32.6L, Mean Corpuscular Volume 98, Mean Corpuscular Hemoglobin 30.1, Mean Corpuscular Hemoglobin Concent 30.7L, Red Cell Distribution Width 15.2H, Platelet Count 105L, Mean Platelet Volume 6.7, Neutrophils (%) (Auto) , Lymphocytes (%) (Auto) , Monocytes (%) (Auto) , Eosinophils (%) (Auto) , Basophils (%) (Auto) , Sodium Level 146H, Potassium Level 4.1, Chloride Level 114H, Carbon Dioxide Level 28, Anion Gap 4L, Blood Urea Nitrogen 39H, Creatinine 0.9, Estimat Glomerular Filtration Rate , Glucose Level 118H, Calcium Level 9.0 Height (Feet): 5 Height (Inches): 10.00 Weight (Pounds): 157 Brianne Henry MD Feb 01, 2019 10:51
--- NOTE | 2019-02-01 11:14 | NUR ---
NURSE NOTES: On going CPAP mode on vent. Pt is tolerating well. No sign of distress; FLACC 0/10. Frequent monitoring continued.
--- NOTE | 2019-02-01 11:30 | NUR ---
NURSE NOTES: Patient tolerated weaning for 2.5 hours, ABG drawn. Results shown to Dr. White, received orders to place patient back on AC mode and try weaning tomorrow again with ABG draw post weaning for at least 30 minutes.
--- NOTE | 2019-02-01 12:08 | NUR ---
RESPIRATORY NOTE: Started weaning patient at 0900 on CPAP PS 8 on FIO2 30%. ABG drawn and resulted to RN. Placed patient back on AC @1205.
--- NOTE | 2019-02-01 13:11 | NUR ---
RESPIRATORY NOTE: called to reassess pt cuff due to inadequate Vt. Per RN, cuff is broken. Assessed pt, reinflated cuff and pt's Vt still inadequate. ER MD reintubated pt at 1300 with ETT 8.0, placed at 25cm at the lip. ETT secured via anchor fast with OPA in place due to pt biting on ETT since the am. Will follow up on xray for placement and cont to monitor.
--- NOTE | 2019-02-01 13:17 | NUR ---
NURSE NOTES: Patient was reintubated at [address] White. Patient's ETT cuff noted to be leaking and TV=0 ml, gurgling and patient's respirations audible, although pulse oximetry shows 100%. Dr. White at bedside making rounds and notified him of leaking cuff. Received orders to reintubate, despite patient is DNR. Reminded Dr. White of patient's code status and he is OK to reintubate. Orally intubated with ETT 8.0/25cm at lip line. Fentanyl drip stopped. Etomidate 26mg IVP given per ERMD. Dr. Henry at bedside post-intubation, current status updated. No new orders given. Patient VSS. STAT CXR ordered.
--- NOTE | 2019-02-01 14:00 | NUR ---
NURSE NOTES: Spoke to susan Sandoval regarding "intake" on IV spreadsheet. OK to leave it out until next bag.
--- NOTE | 2019-02-01 14:02 | Emergency Room Report ---
Physical Exam Vital Signs Date Time Temp Pulse Resp B/P (MAP) Pulse Ox O2 Delivery O2 Flow Rate FiO2 01/28/19 07:00 81 22 96/74 (81) 100 01/28/19 07:48 30 30 01/28/19 08:00 Mechanical Ventilator 01/28/19 08:00 97.8 01/31/19 18:33 30.0 Medical Decision Making Diagnostic Impression: Primary Impression: Dyspnea Additional Impressions: VF (ventricular fibrillation) Cardiac arrest Respiratory distress ER Course Briefly, this is a 73-year-old male who initially presented the emergency department for COPD exacerbation. He was intubated by me his presentation admitted to the ICU. Called by the ICU attending this afternoon as his trach cuff had become ruptured and the patient had an air leak with a persistently acidotic blood gas. He required reintubation. Procedure was performed without complication. 8.0 endotracheal tube was replaced with direct visualization. Bilateral breath sounds, good color change on capnography, mist in the tube and chest x-ray confirmed positioning. Patient remains admitted in the intensive care unit. Last Vital Signs Date Time Temp Pulse Resp B/P (MAP) Pulse Ox O2 Delivery O2 Flow Rate FiO2 02/01/19 13:43 16 Mechanical Ventilator 30.0 30 02/01/19 13:30 64 109/74 (86) 100 02/01/19 12:00 98.1 Disposition: ADMITTED INPATIENT Condition: Critical Referrals: NOT CHOSEN IPA/MD,REFERRING (PCP) Procedures Intubation Intubation : Intubation Method: orotracheal Tube Size (cm): 8.0 Medications: Etomidate Breath Sounds after Intubation: equal Intubation Complications: no complications Post Intubation Xray: Yes Progress/Xray Impression: Tip of endotracheal tube in place above the dimitry Attempts: One Patient Tolerated: Well Complications: None Jimmie Guzmán MD Feb 01, 2019 14:02
--- NOTE | 2019-02-01 14:49 | Infectious Diseases Prog Note ---
Assessment/Plan Problems: (1) Aspiration pneumonia Assessment & Plan: due to cardiac arrest, with enterobacter cloacea, continue zosyn empirically for 10 days . aspiration precaution . (2) Leukocytosis Assessment & Plan: partially due to steroids , rule out sepsis, blood culture x2 so far is negative , repeated CXR ruled out aspiration or new infiltrates , still concern about aspiration after two codes blue . sputum culture grew Enterobacter cloacae , continue zosyn for 10 days . taper steroids (3) Acute exacerbation of chronic obstructive pulmonary disease (COPD) Assessment & Plan: continue doxycycline for five days only , and nebulizer treatment as per pulmonary (4) Cardiac arrest Assessment & Plan: etiology ? cardiology eval to rule out cardiac sources and neurology eval to evaluate his brain condition and to rule out anoxic brain injury (5) Chronic hypercapnic respiratory failure Assessment & Plan: S/P cardiac arrest , S/P intubation, monitor in ICU, pulmonary is following Subjective ROS Limited/Unobtainable: Yes Allergies: Coded Allergies: No Known Allergies (Unverified , 06/05/18) Subjective He is still intubated on mechanical ventilation, awake and responsive today , trying to set up in bed, not febrile. Objective Vital Signs Last 24 Hour Vital Signs Date Time Temp Pulse Resp B/P (MAP) Pulse Ox O2 Delivery O2 Flow Rate FiO2 02/01/19 14:00 58 16 125/88 (100) 100 02/01/19 13:43 16 Mechanical Ventilator 30.0 30 02/01/19 13:30 64 16 109/74 (86) 100 02/01/19 13:30 63 16 109/73 (85) 100 02/01/19 13:11 70 16 30 02/01/19 13:00 69 16 98/62 (74) 100 02/01/19 12:30 97 18 146/68 (94) 100 02/01/19 12:15 30 02/01/19 12:05 100 02/01/19 12:00 80 02/01/19 12:00 98.1 76 16 132/68 (89) 100 02/01/19 12:00 Mechanical Ventilator 02/01/19 12:00 83 13 132/68 (89) 100 02/01/19 11:30 76 16 132/68 (89) 100 02/01/19 11:00 62 12 115/56 (75) 100 02/01/19 10:56 64 13 30 30 8/16/19 10:30 66 12 119/62 (81) 100 02/01/19 10:00 68 13 110/59 (76) 100 02/01/19 09:30 78 11 103/63 (76) 100 02/01/19 09:07 92 13 30 30 02/01/19 09:00 30 02/01/19 09:00 94 15 110/69 (83) 98 02/01/19 08:30 57 16 110/69 (83) 100 02/01/19 08:00 30 02/01/19 08:00 56 16 104/70 (81) 100 02/01/19 08:00 Mechanical Ventilator 02/01/19 08:00 57 02/01/19 07:30 97.6 57 16 106/72 (83) 100 02/01/19 07:05 60 16 30 02/01/19 07:00 61 16 104/66 (79) 100 02/01/19 07:00 16 Mechanical Ventilator 02/01/19 06:50 16 Mechanical Ventilator 30 02/01/19 06:45 16 Mechanical Ventilator 30 02/01/19 06:40 16 Mechanical Ventilator 30 02/01/19 06:30 60 16 100/66 (77) 100 02/01/19 06:10 16 Mechanical Ventilator 30 02/01/19 06:00 16 Mechanical Ventilator 30 02/01/19 06:00 61 16 105/65 (78) 100 02/01/19 05:30 61 16 99/69 (79) 100 02/01/19 05:13 59 16 30 02/01/19 05:05 16 30 02/01/19 05:00 57 16 101/68 (79) 100 02/01/19 05:00 16 Mechanical Ventilator 30 02/01/19 04:30 61 16 107/67 (80) 100 02/01/19 04:00 Mechanical Ventilator 02/01/19 04:00 16 Mechanical Ventilator 30 02/01/19 04:00 30 02/01/19 04:00 97.5 68 16 107/71 (83) 99 02/01/19 03:30 62 16 98/70 (79) 100 02/01/19 03:19 62 02/01/19 03:08 62 16 30 02/01/19 03:00 16 Mechanical Ventilator 30 02/01/19 03:00 59 16 105/70 (82) 100 02/01/19 02:30 63 16 102/78 (86) 100 02/01/19 02:00 65 16 100/78 (85) 100 02/01/19 02:00 16 Mechanical Ventilator 30 02/01/19 01:30 60 15 119/77 (91) 100 02/01/19 01:19 66 16 30 02/01/19 01:00 16 Mechanical Ventilator 30 02/01/19 01:00 66 16 111/70 (84) 100 02/01/19 00:30 78 16 112/74 (87) 100 02/01/19 00:12 99 16 129/81 (97) 94 02/01/19 00:07 22 Mechanical Ventilator 02/01/19 00:00 30 02/01/19 00:00 Mechanical Ventilator 02/01/19 00:00 16 Mechanical Ventilator 30 02/01/19 00:00 97.8 110 23 186/127 (146) 100 01/31/19 23:30 64 16 117/75 (89) 100 01/31/19 23:16 65 16 30 01/31/19 23:11 65 01/31/19 23:00 16 Mechanical Ventilator 30 01/31/19 23:00 65 16 111/77 (88) 100 01/31/19 22:30 66 16 108/82 (91) 100 01/31/19 22:00 65 16 115/77 (90) 100 01/31/19 22:00 16 Mechanical Ventilator 30 01/31/19 21:30 64 16 112/79 (90) 100 01/31/19 21:00 63 16 116/81 (93) 100 01/31/19 21:00 16 Mechanical Ventilator 30 01/31/19 20:39 64 16 30 01/31/19 20:30 66 16 111/72 (85) 100 01/31/19 20:00 30 01/31/19 20:00 16 Mechanical Ventilator 30 01/31/19 20:00 Mechanical Ventilator 01/31/19 20:00 97.8 64 16 109/69 (82) 100 01/31/19 19:30 64 16 107/70 (82) 100 01/31/19 19:12 65 01/31/19 19:03 98.1 01/31/19 19:02 66 16 30 01/31/19 19:00 67 16 136/89 (105) 100 01/31/19 19:00 16 Mechanical Ventilator 30 01/31/19 18:33 16 Mechanical Ventilator 30.0 30 01/31/19 18:30 68 16 137/90 (106) 100 01/31/19 18:00 16 Mechanical Ventilator 30 01/31/19 18:00 65 16 107/71 (83) 100 01/31/19 17:30 68 16 109/69 (82) 100 01/31/19 17:06 68 16 30 01/31/19 17:00 16 Mechanical Ventilator 30 01/31/19 17:00 68 16 104/70 (81) 100 01/31/19 16:30 69 16 106/70 (82) 100 01/31/19 16:00 78 01/31/19 16:00 98.1 78 22 175/75 (108) 100 01/31/19 16:00 Mechanical Ventilator 01/31/19 16:00 22 Mechanical Ventilator 30 01/31/19 16:00 Mechanical Ventilator 30 01/31/19 16:00 30 01/31/19 15:30 69 22 135/74 (94) 100 01/31/19 15:10 67 16 30 01/31/19 15:00 22 Mechanical Ventilator 30 Height (Feet): 5 Height (Inches): 10.00 Weight (Pounds): 157 General Appearance: WD/WN, no acute distress HEENT: normocephalic, atraumatic, anicteric, mucous membranes moist Respiratory/Chest: chest wall non-tender, lungs clear, normal breath sounds, no respiratory distress, no accessory muscle use Cardiovascular: normal peripheral pulses, normal rate, regular rhythm, no gallop/murmur, no JVD Abdomen: normal bowel sounds, soft, non tender, no organomegaly, non distended , no mass, no scars Extremities: no cyanosis, no clubbing Skin: no rash, no lesions, no ulcers Neurologic/Psychiatric: alert, responsive Lymphatic: no neck adenopathy, no groin adenopathy Musculoskeletal: normal muscle bulk, no effusion Laboratory Tests Test 01/31/19 16:00 02/01/19 03:40 02/01/19 11:35 Ferritin 248 NG/ML (8-388) HIV (1&2) Antibody Rapid Negative (NEGATIVE) White Blood Count 11.8 K/UL (4.8-10.8) H Red Blood Count 3.32 M/UL (4.70-6.10) L Hemoglobin 10.0 G/DL (14.2-18.0) L Hematocrit 32.6 % (42.0-52.0) L Mean Corpuscular Volume 98 FL (80-99) Mean Corpuscular Hemoglobin 30.1 PG (27.0-31.0) Mean Corpuscular Hemoglobin Concent 30.7 G/DL (32.0-36.0) L Red Cell Distribution Width 15.2 % (11.6-14.8) H Platelet Count 105 K/UL (150-450) L Mean Platelet Volume 6.7 FL (6.5-10.1) Neutrophils (%) (Auto) % (45.0-75.0) Lymphocytes (%) (Auto) % (20.0-45.0) Monocytes (%) (Auto) % (1.0-10.0) Eosinophils (%) (Auto) % (0.0-3.0) Basophils (%) (Auto) % (0.0-2.0) Sodium Level 146 MMOL/L (136-145) H Potassium Level 4.1 MMOL/L (3.5-5.1) Chloride Level 114 MMOL/L (98-107) H Carbon Dioxide Level 28 MMOL/L (21-32) Anion Gap 4 mmol/L (5-15) L Blood Urea Nitrogen 39 mg/dL (7-18) H Creatinine 0.9 MG/DL (0.55-1.30) Estimat Glomerular Filtration Rate mL/min (>60) Glucose Level 118 MG/DL (74-106) H Calcium Level 9.0 MG/DL (8.5-10.1) Arterial Blood pH 7.199 (7.350-7.450) Arterial Blood Partial Pressure CO2 63.8 mmHg (35.0-45.0) *H Arterial Blood Partial Pressure O2 69.1 mmHg (75.0-100.0) L Arterial Blood HCO3 24.3 mmol/L (22.0-26.0) Arterial Blood Oxygen Saturation 88.5 % (95-100) *L Arterial Blood Base Excess -4.4 (-2-2) L Delon Test Positive Current Medications Medications (Trade) Dose Ordered Sig/Brittani Route PRN Reason Start Time Stop Time Status Last Admin Dose Admin Acetaminophen (Tylenol) 650 mg Q4H PRN NG FOR MILD PAIN 01/26/19 10:15 02/25/19 10:14 Chlorhexidine Gluconate (Renetta-Hex 2%) 1 applic DAILY@2000 TOPIC 01/27/19 20:00 02/26/19 19:59 01/31/19 19:31 Dextrose (Dextrose 50%) 25 ml Q30M PRN IV Hypoglycemia 01/26/19 10:30 02/25/19 10:29 Dextrose (Dextrose 50%) 50 ml Q30M PRN IV Hypoglycemia 01/26/19 10:30 02/25/19 10:29 Dextrose/Sodium Chloride 1,000 ml @ 50 mls/hr Q20H IV 01/30/19 18:00 03/01/19 17:59 02/01/19 09:41 Doxycycline Hyclate 100 mg/ Dextrose 110 ml @ 110 mls/hr Q12HR IV 01/26/19 11:00 02/04/19 23:59 02/01/19 08:56 Enoxaparin Sodium (Lovenox) 40 mg DAILY SUBQ 01/31/19 09:00 03/02/19 08:59 02/01/19 08:54 Fentanyl Citrate 1000 mcg/Sodium Chloride 100 ml @ 0 mls/hr Q24H IV 01/26/19 10:27 02/02/19 10:26 02/01/19 13:43 Insulin Aspart (NovoLOG) Q6HR SUBQ 01/26/19 12:00 02/25/19 11:59 02/01/19 05:56 Lorazepam (Ativan 2mg/ml 1ml) 1 mg Q4H PRN IV AGITATION / SEIZURE 01/30/19 15:00 02/06/19 14:59 02/01/19 00:18 Methylprednisolone Sodium Succinate (Solu-MEDROL) 60 mg EVERY 12 HOURS IVP 01/29/19 21:00 02/28/19 20:59 02/01/19 08:54 Morphine Sulfate (Morphine Sulfate) 2 mg Q8H PRN IVP FOR SEVERE PAIN 01/26/19 10:15 02/02/19 10:14 01/29/19 09:33 Pantoprazole (Protonix) 40 mg DAILY IVP 01/26/19 11:00 02/25/19 10:59 02/01/19 08:54 Piperacillin Sod/ Tazobactam Sod 3.375 gm/Sodium Chloride 110 ml @ 27.5 mls/hr EVERY 8 HOURS IVPB 01/27/19 20:00 02/06/19 23:59 02/01/19 13:48 Sodium Chloride 500 ml @ 998.89 mls/ hr Q4H PRN IVPB MAP<60 01/26/19 10:15 02/25/19 10:14 [place] Orlando M.D. Feb 01, 2019 14:49
--- NOTE | 2019-02-01 15:04 | NUR ---
NURSE NOTES: Notified Dr. Henry patient hasn't had BM since 01/27, received orders for Miralax 17gm at bedtime. Read back given and verified.
--- NOTE | 2019-02-01 15:21 | Diagnostic Imaging Report ---
Indication: Post intubation Technique: One view of the chest Comparison: 02/01/2019 Findings: Endotracheal tube tip projects in good position approximately 5 cm above the dimitry. This appears deeper within the chest than the endotracheal tube demonstrated on the earlier study. Nasogastric tube is again demonstrated. Right jugular central venous catheter is again demonstrated. Again demonstrated is hyperinflation. Lungs and pleural spaces remain clear. The heart size is normal Impression: Satisfactory position of endotracheal tube Other stable findings as described
--- NOTE | 2019-02-01 16:09 | Diagnostic Imaging Report ---
Indication: Shortness of breath Technique: One view of the chest Comparison: 01/28/2019 Findings: Endotracheal tube projects higher than on the prior study but still below the thoracic inlet. Stable satisfactory positions of nasogastric tube and right jugular central venous catheter. The lungs remain hyperinflated. The lungs and pleural spaces remain clear. Findings are unchanged Impression: Unchanged, over 4 days, findings as above.
--- NOTE | 2019-02-01 17:04 | Pulmonolgy Critical Care Note ---
Critical Care - Asmt/Plan Assessment/Plan: Pulmonary Critical Care Progress Note HPI Patient is a 73 year olf man with previous history of COPD, CHF, HTN, DM admitted with extreme respiratory distress, intubated in the ED, subsequent Cardiac Arrest. Noted to have hypercapneic respiratory failure. Interactive today, improved ventilator requirements, did not tolerate weaning today - high RR/agitation, required replacement ETT CT Head negative Allergies: No Known Allergies Past Medical History: COPD/Asthma, CHF, Hypertension, DM All Other Systems: limited Physical Exam Vital signs noted General Appearance: sedated on ventilator Head: normocephalic, atraumatic Eyes: bilateral eye PERRL, bilateral eye EOMI ENT: moist mm, no LN Neck: supple Respiratory: generally reduced BS, occasional wheeze Cardiovascular: tachycardia, HS1, HS2, RRR Gastrointestinal: non tender, soft Musculoskeletal: normal inspection Neurologic: sedated on ventilator Skin: no rash, palpation normal Impression: COPD exacerbation Hypercapneic respiratory failure S/p cardiac arrest in the ED CHF HTN Diabetes Plan Wean as tolerated Adjust FIO2 for sats 90-94% HHN Q4 IV Solumedrol Sedation PRN Sz management Monitor labs PPX IV Doxycycline DNR status Labs Test 01/26/19 05:45 White Blood Count 9.6 K/UL (4.8-10.8) Red Blood Count 4.57 M/UL (4.70-6.10) Hemoglobin 13.5 G/DL (14.2-18.0) Hematocrit 46.0 % (42.0-52.0) Mean Corpuscular Volume 101 FL (80-99) Mean Corpuscular Hemoglobin 29.6 PG (27.0-31.0) Mean Corpuscular Hemoglobin Concent 29.4 G/DL (32.0-36.0) Red Cell Distribution Width 15.2 % (11.6-14.8) Platelet Count 181 K/UL (150-450) Mean Platelet Volume 7.5 FL (6.5-10.1) Neutrophils (%) (Auto) 49.7 % (45.0-75.0) Lymphocytes (%) (Auto) 33.3 % (20.0-45.0) Monocytes (%) (Auto) 8.2 % (1.0-10.0) Eosinophils (%) (Auto) 8.2 % (0.0-3.0) Basophils (%) (Auto) 0.7 % (0.0-2.0) Lactic Acid Level 0.80 mmol/L (0.4-2.0) Chest X-Ray: No consolidation, no effusion, ETT tube 7cm, RIJ line good position Critical Care - Objective Last 24 Hour Vital Signs Date Time Temp Pulse Resp B/P (MAP) Pulse Ox O2 Delivery O2 Flow Rate FiO2 02/01/19 16:30 72 16 156/71 (99) 100 02/01/19 16:00 84 02/01/19 16:00 97.5 89 19 166/76 (106) 100 02/01/19 16:00 Mechanical Ventilator 02/01/19 15:30 84 19 149/108 (122) 100 02/01/19 15:14 63 16 30 02/01/19 15:00 65 16 143/72 (95) 100 02/01/19 14:30 59 16 128/68 (88) 100 02/01/19 14:13 98.1 02/01/19 14:00 16 Mechanical Ventilator 30 02/01/19 14:00 58 16 125/88 (100) 100 02/01/19 13:43 16 Mechanical Ventilator 30.0 30 02/01/19 13:40 16 Mechanical Ventilator 30 02/01/19 13:35 16 Mechanical Ventilator 30 02/01/19 13:30 64 16 109/74 (86) 100 02/01/19 13:30 63 16 109/73 (85) 100 02/01/19 13:30 16 Mechanical Ventilator 30 02/01/19 13:11 70 16 30 02/01/19 13:00 Mechanical Ventilator 30 02/01/19 13:00 69 16 98/62 (74) 100 02/01/19 12:30 97 18 146/68 (94) 100 02/01/19 12:15 30 02/01/19 12:05 100 02/01/19 12:00 80 02/01/19 12:00 98.1 76 16 132/68 (89) 100 02/01/19 12:00 Mechanical Ventilator 30 02/01/19 12:00 Mechanical Ventilator 02/01/19 12:00 83 13 132/68 (89) 100 02/01/19 11:55 16 Mechanical Ventilator 30 02/01/19 11:50 16 Mechanical Ventilator 30 02/01/19 11:40 16 Mechanical Ventilator 30 02/01/19 11:30 76 16 132/68 (89) 100 02/01/19 11:30 16 Mechanical Ventilator 30 02/01/19 11:00 62 12 115/56 (75) 100 02/01/19 11:00 Mechanical Ventilator 30 02/01/19 10:56 64 13 30 30 02/01/19 10:30 66 12 119/62 (81) 100 02/01/19 10:00 68 13 110/59 (76) 100 02/01/19 10:00 16 Mechanical Ventilator 30 02/01/19 09:30 78 11 103/63 (76) 100 02/01/19 09:07 92 13 30 30 02/01/19 09:00 30 02/01/19 09:00 94 15 110/69 (83) 98 02/01/19 09:00 16 Mechanical Ventilator 30 02/01/19 08:30 16 Mechanical Ventilator 30 02/01/19 08:30 57 16 110/69 (83) 100 02/01/19 08:00 30 02/01/19 08:00 56 16 104/70 (81) 100 02/01/19 08:00 Mechanical Ventilator 02/01/19 08:00 16 Mechanical Ventilator 30 02/01/19 08:00 57 02/01/19 07:50 16 Mechanical Ventilator 30 02/01/19 07:40 Mechanical Ventilator 30 02/01/19 07:30 97.6 57 16 106/72 (83) 100 02/01/19 07:30 16 Mechanical Ventilator 30 02/01/19 07:20 16 Mechanical Ventilator 30 02/01/19 07:10 16 Mechanical Ventilator 30 02/01/19 07:05 60 16 30 02/01/19 07:00 61 16 104/66 (79) 100 02/01/19 07:00 16 Mechanical Ventilator 30 02/01/19 06:50 16 Mechanical Ventilator 30 02/01/19 06:45 16 Mechanical Ventilator 30 02/01/19 06:40 16 Mechanical Ventilator 30 02/01/19 06:30 60 16 100/66 (77) 100 02/01/19 06:10 16 Mechanical Ventilator 30 02/01/19 06:00 16 Mechanical Ventilator 30 02/01/19 06:00 61 16 105/65 (78) 100 02/01/19 05:30 61 16 99/69 (79) 100 02/01/19 05:13 59 16 30 02/01/19 05:05 16 30 02/01/19 05:00 57 16 101/68 (79) 100 02/01/19 05:00 16 Mechanical Ventilator 30 02/01/19 04:30 61 16 107/67 (80) 100 02/01/19 04:00 Mechanical Ventilator 02/01/19 04:00 16 Mechanical Ventilator 30 02/01/19 04:00 30 02/01/19 04:00 97.5 68 16 107/71 (83) 99 02/01/19 03:30 62 16 98/70 (79) 100 02/01/19 03:19 62 02/01/19 03:08 62 16 30 02/01/19 03:00 16 Mechanical Ventilator 30 02/01/19 03:00 59 16 105/70 (82) 100 02/01/19 02:30 63 16 102/78 (86) 100 02/01/19 02:00 65 16 100/78 (85) 100 02/01/19 02:00 16 Mechanical Ventilator 30 02/01/19 01:30 60 15 119/77 (91) 100 02/01/19 01:19 66 16 30 02/01/19 01:00 16 Mechanical Ventilator 30 02/01/19 01:00 66 16 111/70 (84) 100 02/01/19 00:30 78 16 112/74 (87) 100 02/01/19 00:12 99 16 129/81 (97) 94 02/01/19 00:07 22 Mechanical Ventilator 02/01/19 00:00 30 02/01/19 00:00 Mechanical Ventilator 02/01/19 00:00 16 Mechanical Ventilator 30 02/01/19 00:00 97.8 110 23 186/127 (146) 100 01/31/19 23:30 64 16 117/75 (89) 100 01/31/19 23:16 65 16 30 01/31/19 23:11 65 01/31/19 23:00 16 Mechanical Ventilator 30 01/31/19 23:00 65 16 111/77 (88) 100 01/31/19 22:30 66 16 108/82 (91) 100 01/31/19 22:00 65 16 115/77 (90) 100 01/31/19 22:00 16 Mechanical Ventilator 30 01/31/19 21:30 64 16 112/79 (90) 100 01/31/19 21:00 63 16 116/81 (93) 100 01/31/19 21:00 16 Mechanical Ventilator 30 01/31/19 20:39 64 16 30 01/31/19 20:30 66 16 111/72 (85) 100 01/31/19 20:00 30 01/31/19 20:00 16 Mechanical Ventilator 30 01/31/19 20:00 Mechanical Ventilator 01/31/19 20:00 97.8 64 16 109/69 (82) 100 01/31/19 19:30 64 16 107/70 (82) 100 01/31/19 19:12 65 01/31/19 19:02 66 16 30 01/31/19 19:00 67 16 136/89 (105) 100 01/31/19 19:00 16 Mechanical Ventilator 30 01/31/19 18:33 16 Mechanical Ventilator 30.0 30 01/31/19 18:30 68 16 137/90 (106) 100 01/31/19 18:00 16 Mechanical Ventilator 30 01/31/19 18:00 65 16 107/71 (83) 100 01/31/19 17:30 68 16 109/69 (82) 100 01/31/19 17:06 68 16 30 Accucheck: 94 Critical Care - Subjective ROS Limited/Unobtainable: No FI02: 30 Vent Support Breath Rate: 16 Vent Support Mode: AC Vent Tidal Volume: 500 Sputum Amount: Scant PEEP: 5.0 PIP: 38 Tube Feeding Amount: 0 I&O: Intake and Output 01/31/19 02/01/19 19:00 07:00 Intake Total 1348.5 ml 1637.0 ml Output Total 640 ml 630 ml Balance 708.5 ml 1007.0 ml Intake Free Water 120 ml IV Total 868.5 ml 1082.0 ml Tube Feeding 360 ml 555 ml Output Urine Total 640 ml 630 ml ET-Tube: 8.0 ET Position: 25 Johny White MD Feb 01, 2019 17:04
--- NOTE | 2019-02-01 17:42 | NUR ---
NURSE NOTES: Turned and repositioned. No BM during shift. Oral care done. Bite block in place. Titrated fentanyl to meet RASS -2.
--- NOTE | 2019-02-01 18:44 | Hematology/Onc Progress Note ---
Assessment/Plan Assessment/Plan # Thrombocytopenia is likely due to underlying infection/sepsis v dic, reactive process --> hiv is neg, hepatitis is neg as well --> us of the abd from prior 2018 --> plt rend 140-->115-->105 --> okay for ppx as long as above 75k --> meds have been reviewed # Anemia of chronic disease, due to multifactorial causes --> anemia panel reviewed from earlier in admission and c/w acd --> hgb goal is >7 --> no hemolysis is seen --> smear has been reviewed # COPD exacerbation --> has been given steriods --> per id for aspiration prec on zosyn # Hypercapneic respiratory failure --> remains on vent --> sbt per pulm # S/p cardiac arrest in the ED # CHF # HTN # Diabetes # DNR status Time of note does not correspond to when patient was seen. Greatly appreciate consultation. Subjective Constitutional: Denies: no symptoms, chills, fever, malaise, weakness, other HEENT: Denies: no symptoms, eye pain, blurred vision, tearing, double vision, ear pain, ear discharge, nose pain, nose congestion, throat pain, throat swelling, mouth pain, mouth swelling, other Respiratory: Denies: no symptoms, cough, shortness of breath, SOB with excertion, SOB at rest, sputum, wheezing, other Gastrointestinal/Abdominal: Denies: no symptoms, abdomen distended, abdominal pain, black stools, tarry stools, blood in stool, constipated, diarrhea, difficulty swallowing, nausea, poor appetite, poor fluid intake, rectal bleeding , vomiting, other Neurologic/Psychiatric: Denies: no symptoms, anxiety, depressed, emotional problems, headache, numbness, paresthesia, pre-existing deficit, seizure, tingling, tremors, weakness, other Allergies: Coded Allergies: No Known Allergies (Unverified , 06/05/18) Subjective 02/01: no events to report, plt is lower, weaning trial initiated with mack gray rn, hiv neg Objective Objective Current Medications Medications (Trade) Dose Ordered Sig/Brittani Route PRN Reason Start Time Stop Time Status Last Admin Dose Admin Acetaminophen (Tylenol) 650 mg Q4H PRN NG FOR MILD PAIN 01/26/19 10:15 02/25/19 10:14 Chlorhexidine Gluconate (Renetta-Hex 2%) 1 applic DAILY@2000 TOPIC 01/27/19 20:00 02/26/19 19:59 01/31/19 19:31 Dextrose (Dextrose 50%) 25 ml Q30M PRN IV Hypoglycemia 01/26/19 10:30 02/25/19 10:29 Dextrose (Dextrose 50%) 50 ml Q30M PRN IV Hypoglycemia 01/26/19 10:30 02/25/19 10:29 Dextrose/Sodium Chloride 1,000 ml @ 50 mls/hr Q20H IV 01/30/19 18:00 03/01/19 17:59 02/01/19 09:41 Doxycycline Hyclate 100 mg/ Dextrose 110 ml @ 110 mls/hr Q12HR IV 01/26/19 11:00 02/04/19 23:59 02/01/19 08:56 Enoxaparin Sodium (Lovenox) 40 mg DAILY SUBQ 01/31/19 09:00 03/02/19 08:59 02/01/19 08:54 Fentanyl Citrate 1000 mcg/Sodium Chloride 100 ml @ 0 mls/hr Q24H IV 01/26/19 10:27 02/02/19 10:26 02/01/19 13:43 Insulin Aspart (NovoLOG) Q6HR SUBQ 01/26/19 12:00 02/25/19 11:59 02/01/19 05:56 Lorazepam (Ativan 2mg/ml 1ml) 1 mg Q4H PRN IV AGITATION / SEIZURE 01/30/19 15:00 02/06/19 14:59 02/01/19 00:18 Methylprednisolone Sodium Succinate (Solu-MEDROL) 60 mg EVERY 12 HOURS IVP 01/29/19 21:00 02/28/19 20:59 02/01/19 08:54 Morphine Sulfate (Morphine Sulfate) 2 mg Q8H PRN IVP FOR SEVERE PAIN 01/26/19 10:15 02/02/19 10:14 01/29/19 09:33 Pantoprazole (Protonix) 40 mg DAILY IVP 01/26/19 11:00 02/25/19 10:59 02/01/19 08:54 Piperacillin Sod/ Tazobactam Sod 3.375 gm/Sodium Chloride 110 ml @ 27.5 mls/hr EVERY 8 HOURS IVPB 01/27/19 20:00 02/06/19 23:59 02/01/19 13:48 Polyethylene Glycol (Miralax) 17 gm BEDTIME GT 02/01/19 21:00 03/03/19 20:59 Sodium Chloride 500 ml @ 998.89 mls/ hr Q4H PRN IVPB MAP<60 01/26/19 10:15 02/25/19 10:14 Last 24 Hour Vital Signs Date Time Temp Pulse Resp B/P (MAP) Pulse Ox O2 Delivery O2 Flow Rate FiO2 02/01/19 18:30 54 16 122/70 (87) 100 02/01/19 18:01 61 16 119/64 (82) 100 02/01/19 18:00 16 Mechanical Ventilator 30 02/01/19 17:30 82 16 161/83 (109) 100 02/01/19 17:16 70 16 30 02/01/19 17:00 16 Non-Rebreather 30 02/01/19 17:00 16 Mechanical Ventilator 30 02/01/19 17:00 66 16 138/66 (90) 100 02/01/19 16:30 72 16 156/71 (99) 100 02/01/19 16:00 84 02/01/19 16:00 16 Mechanical Ventilator 30 02/01/19 16:00 97.5 89 19 166/76 (106) 100 02/01/19 16:00 Mechanical Ventilator 02/01/19 15:40 Mechanical Ventilator 30 02/01/19 15:30 18 Mechanical Ventilator 30 02/01/19 15:30 84 19 149/108 (122) 100 02/01/19 15:20 Mechanical Ventilator 30 02/01/19 15:14 63 16 30 02/01/19 15:10 20 Mechanical Ventilator 30 02/01/19 15:00 20 Mechanical Ventilator 30 02/01/19 15:00 65 16 143/72 (95) 100 02/01/19 14:50 20 Mechanical Ventilator 30 02/01/19 14:40 20 Mechanical Ventilator 30 02/01/19 14:30 59 16 128/68 (88) 100 02/01/19 14:30 22 Mechanical Ventilator 30 02/01/19 14:20 28 Mechanical Ventilator 30 02/01/19 14:13 98.1 02/01/19 14:10 28 Mechanical Ventilator 30 02/01/19 14:00 16 Mechanical Ventilator 30 02/01/19 14:00 58 16 125/88 (100) 100 02/01/19 13:43 16 Mechanical Ventilator 30.0 30 02/01/19 13:40 16 Mechanical Ventilator 30 02/01/19 13:35 16 Mechanical Ventilator 30 02/01/19 13:30 64 16 109/74 (86) 100 02/01/19 13:30 63 16 109/73 (85) 100 02/01/19 13:30 16 Mechanical Ventilator 30 02/01/19 13:11 70 16 30 02/01/19 13:00 Mechanical Ventilator 30 02/01/19 13:00 69 16 98/62 (74) 100 02/01/19 12:30 97 18 146/68 (94) 100 02/01/19 12:15 30 02/01/19 12:05 100 02/01/19 12:00 80 02/01/19 12:00 98.1 76 16 132/68 (89) 100 02/01/19 12:00 Mechanical Ventilator 30 02/01/19 12:00 Mechanical Ventilator 02/01/19 12:00 83 13 132/68 (89) 100 02/01/19 11:55 16 Mechanical Ventilator 30 02/01/19 11:50 16 Mechanical Ventilator 30 02/01/19 11:40 16 Mechanical Ventilator 30 02/01/19 11:30 76 16 132/68 (89) 100 02/01/19 11:30 16 Mechanical Ventilator 30 02/01/19 11:00 62 12 115/56 (75) 100 02/01/19 11:00 Mechanical Ventilator 30 02/01/19 10:56 64 13 30 30 02/01/19 10:30 66 12 119/62 (81) 100 02/01/19 10:00 68 13 110/59 (76) 100 02/01/19 10:00 16 Mechanical Ventilator 30 02/01/19 09:30 78 11 103/63 (76) 100 02/01/19 09:07 92 13 30 30 02/01/19 09:00 30 02/01/19 09:00 94 15 110/69 (83) 98 02/01/19 09:00 16 Mechanical Ventilator 30 02/01/19 08:30 16 Mechanical Ventilator 30 02/01/19 08:30 57 16 110/69 (83) 100 02/01/19 08:00 30 02/01/19 08:00 56 16 104/70 (81) 100 02/01/19 08:00 Mechanical Ventilator 02/01/19 08:00 16 Mechanical Ventilator 30 02/01/19 08:00 57 02/01/19 07:50 16 Mechanical Ventilator 30 02/01/19 07:40 Mechanical Ventilator 30 02/01/19 07:30 97.6 57 16 106/72 (83) 100 02/01/19 07:30 16 Mechanical Ventilator 30 02/01/19 07:20 16 Mechanical Ventilator 30 02/01/19 07:10 16 Mechanical Ventilator 30 02/01/19 07:05 60 16 30 02/01/19 07:00 61 16 104/66 (79) 100 02/01/19 07:00 16 Mechanical Ventilator 30 02/01/19 06:50 16 Mechanical Ventilator 30 02/01/19 06:45 16 Mechanical Ventilator 30 02/01/19 06:40 16 Mechanical Ventilator 30 02/01/19 06:30 60 16 100/66 (77) 100 02/01/19 06:10 16 Mechanical Ventilator 30 02/01/19 06:00 16 Mechanical Ventilator 30 02/01/19 06:00 61 16 105/65 (78) 100 02/01/19 05:30 61 16 99/69 (79) 100 02/01/19 05:13 59 16 30 02/01/19 05:05 16 30 02/01/19 05:00 57 16 101/68 (79) 100 02/01/19 05:00 16 Mechanical Ventilator 30 02/01/19 04:30 61 16 107/67 (80) 100 02/01/19 04:00 Mechanical Ventilator 02/01/19 04:00 16 Mechanical Ventilator 30 02/01/19 04:00 30 02/01/19 04:00 97.5 68 16 107/71 (83) 99 02/01/19 03:30 62 16 98/70 (79) 100 02/01/19 03:19 62 02/01/19 03:08 62 16 30 02/01/19 03:00 16 Mechanical Ventilator 30 02/01/19 03:00 59 16 105/70 (82) 100 02/01/19 02:30 63 16 102/78 (86) 100 02/01/19 02:00 65 16 100/78 (85) 100 02/01/19 02:00 16 Mechanical Ventilator 30 02/01/19 01:30 60 15 119/77 (91) 100 02/01/19 01:19 66 16 30 02/01/19 01:00 16 Mechanical Ventilator 30 02/01/19 01:00 66 16 111/70 (84) 100 02/01/19 00:30 78 16 112/74 (87) 100 02/01/19 00:12 99 16 129/81 (97) 94 02/01/19 00:07 22 Mechanical Ventilator 30 02/01/19 00:00 30 02/01/19 00:00 Mechanical Ventilator 02/01/19 00:00 16 Mechanical Ventilator 30 02/01/19 00:00 97.8 110 23 186/127 (146) 100 01/31/19 23:30 64 16 117/75 (89) 100 01/31/19 23:16 65 16 30 01/31/19 23:11 65 01/31/19 23:00 16 Mechanical Ventilator 30 01/31/19 23:00 65 16 111/77 (88) 100 01/31/19 22:30 66 16 108/82 (91) 100 01/31/19 22:00 65 16 115/77 (90) 100 01/31/19 22:00 16 Mechanical Ventilator 30 01/31/19 21:30 64 16 112/79 (90) 100 01/31/19 21:00 63 16 116/81 (93) 100 01/31/19 21:00 16 Mechanical Ventilator 30 01/31/19 20:39 64 16 30 01/31/19 20:30 66 16 111/72 (85) 100 01/31/19 20:00 30 01/31/19 20:00 16 Mechanical Ventilator 30 01/31/19 20:00 Mechanical Ventilator 01/31/19 20:00 97.8 64 16 109/69 (82) 100 01/31/19 19:30 64 16 107/70 (82) 100 01/31/19 19:12 65 01/31/19 19:02 66 16 30 01/31/19 19:00 67 16 136/89 (105) 100 01/31/19 19:00 16 Mechanical Ventilator 30 01/31/19 18:33 16 Mechanical Ventilator 30.0 30 01/31/19 18:30 68 16 137/90 (106) 100 01/31/19 18:00 16 Mechanical Ventilator 30 01/31/19 18:00 65 16 107/71 (83) 100 01/31/19 17:30 68 16 109/69 (82) 100 01/31/19 17:06 68 16 30 01/31/19 17:00 16 Mechanical Ventilator 30 01/31/19 17:00 68 16 104/70 (81) 100 01/31/19 16:30 69 16 106/70 (82) 100 01/31/19 16:00 78 01/31/19 16:00 98.1 78 22 175/75 (108) 100 01/31/19 16:00 Mechanical Ventilator 01/31/19 16:00 22 Mechanical Ventilator 30 01/31/19 16:00 Mechanical Ventilator 30 01/31/19 16:00 30 01/31/19 15:30 69 22 135/74 (94) 100 01/31/19 15:10 67 16 30 01/31/19 15:00 22 Mechanical Ventilator 30 01/31/19 14:00 75 22 116/75 (89) 100 01/31/19 14:00 22 Mechanical Ventilator 30 01/31/19 13:30 79 22 117/69 (85) 100 01/31/19 13:00 22 Mechanical Ventilator 30 01/31/19 13:00 71 22 115/73 (87) 100 01/31/19 12:30 72 22 30 01/31/19 12:30 72 22 114/71 (85) 100 01/31/19 12:00 30 01/31/19 12:00 Mechanical Ventilator 01/31/19 12:00 97.9 74 22 114/61 (78) 100 01/31/19 12:00 22 Mechanical Ventilator 30 01/31/19 12:00 75 01/31/19 11:30 74 22 133/71 (91) 100 01/31/19 11:21 22 Mechanical Ventilator 30 01/31/19 11:20 72 22 30 01/31/19 11:00 22 Mechanical Ventilator 30 01/31/19 11:00 70 22 127/72 (90) 100 01/31/19 10:30 86 25 112/78 (89) 100 01/31/19 10:00 22 Mechanical Ventilator 30 01/31/19 10:00 72 22 100/79 (86) 100 01/31/19 09:30 72 22 114/72 (86) 100 01/31/19 09:01 65 22 30 01/31/19 09:00 72 22 108/73 (85) 100 01/31/19 09:00 22 Mechanical Ventilator 30 01/31/19 08:30 72 22 107/73 (84) 100 01/31/19 08:00 Mechanical Ventilator 01/31/19 08:00 30 01/31/19 08:00 22 Mechanical Ventilator 30 01/31/19 08:00 82 01/31/19 08:00 112 36 107/73 (84) 100 01/31/19 07:44 111 22 100 Mechanical Ventilator 30 01/31/19 07:43 Mechanical Ventilator 30 01/31/19 07:43 Mechanical Ventilator 30 01/31/19 07:36 118 22 30 01/31/19 07:30 97.8 87 22 113/70 (84) 100 01/31/19 07:30 22 Mechanical Ventilator 30 01/31/19 07:00 67 22 110/69 (83) 100 01/31/19 07:00 22 Mechanical Ventilator 30 01/31/19 06:55 22 Mechanical Ventilator 30 01/31/19 06:50 22 Mechanical Ventilator 30 01/31/19 06:45 22 Mechanical Ventilator 30 01/31/19 06:40 22 Mechanical Ventilator 30 01/31/19 06:35 22 Mechanical Ventilator 30 01/31/19 06:30 60 22 112/71 (85) 100 01/31/19 06:00 70 22 117/75 (89) 100 01/31/19 06:00 22 Mechanical Ventilator 30 01/31/19 05:30 74 21 118/72 (87) 100 01/31/19 05:03 75 22 30 30 01/31/19 05:00 73 21 129/77 (94) 100 01/31/19 04:50 22 Mechanical Ventilator 30 01/31/19 04:30 77 22 119/73 (88) 100 01/31/19 04:00 Mechanical Ventilator 01/31/19 04:00 97.8 83 22 103/72 (82) 100 01/31/19 04:00 30 01/31/19 04:00 22 Mechanical Ventilator 30 01/31/19 03:30 66 22 143/73 (96) 100 01/31/19 03:19 62 01/31/19 03:00 58 22 119/67 (84) 100 01/31/19 03:00 22 Mechanical Ventilator 30 01/31/19 02:56 64 22 100 Mechanical Ventilator 30 01/31/19 02:46 57 22 30 30 01/31/19 02:46 57 22 100 Mechanical Ventilator 30 01/31/19 02:30 55 22 113/64 (80) 100 01/31/19 02:00 57 22 119/62 (81) 100 01/31/19 02:00 22 Mechanical Ventilator 30 01/31/19 01:30 59 22 116/65 (82) 100 01/31/19 01:00 58 22 105/69 (81) 100 01/31/19 01:00 22 Mechanical Ventilator 30 01/31/19 00:55 57 22 30 30 01/31/19 00:30 56 22 119/69 (86) 100 01/31/19 00:00 22 Mechanical Ventilator 30 01/31/19 00:00 30 01/31/19 00:00 97.8 56 22 121/71 (88) 100 01/31/19 00:00 Mechanical Ventilator 01/30/19 23:30 56 22 135/66 (89) 100 01/30/19 23:27 22 30 01/30/19 23:24 58 01/30/19 23:04 53 22 100 Mechanical Ventilator 30 01/30/19 23:00 63 17 141/63 (89) 100 01/30/19 23:00 17 Mechanical Ventilator 30 01/30/19 22:54 56 22 100 Mechanical Ventilator 30 01/30/19 22:54 57 22 30 30 01/30/19 22:30 55 22 109/72 (84) 100 01/30/19 22:00 54 22 119/65 (83) 100 01/30/19 22:00 22 Mechanical Ventilator 30 01/30/19 21:30 57 22 122/68 (86) 100 01/30/19 21:00 22 Mechanical Ventilator 30 01/30/19 21:00 62 22 115/64 (81) 100 01/30/19 20:48 94 22 30 30 01/30/19 20:30 57 22 103/66 (78) 100 01/30/19 20:15 22 Mechanical Ventilator 30 01/30/19 20:10 22 Mechanical Ventilator 30 01/30/19 20:05 25 Mechanical Ventilator 30 01/30/19 20:00 98.5 56 22 120/68 (85) 100 01/30/19 20:00 Mechanical Ventilator 01/30/19 20:00 22 Mechanical Ventilator 30 01/30/19 20:00 30 01/30/19 19:55 26 Mechanical Ventilator 30 01/30/19 19:50 22 Mechanical Ventilator 30 01/30/19 19:30 59 22 135/71 (92) 100 01/30/19 19:23 58 01/30/19 19:05 60 22 100 Mechanical Ventilator 30 01/30/19 19:00 62 22 112/70 (84) 100 01/30/19 19:00 Mechanical Ventilator 30 01/30/19 18:53 61 22 100 Mechanical Ventilator 30 01/30/19 18:52 61 22 30 30 01/30/19 18:48 20 Endotracheal Tube 30 Intake and Output 01/31/19 02/01/19 19:00 07:00 Intake Total 1348.5 ml 1637.0 ml Output Total 640 ml 630 ml Balance 708.5 ml 1007.0 ml Intake Free Water 120 ml IV Total 868.5 ml 1082.0 ml Tube Feeding 360 ml 555 ml Output Urine Total 640 ml 630 ml Labs Test 01/30/19 04:26 01/31/19 16:00 02/01/19 03:40 02/01/19 11:35 White Blood Count 12.2 K/UL (4.8-10.8) 11.8 K/UL (4.8-10.8) Red Blood Count 3.17 M/UL (4.70-6.10) 3.32 M/UL (4.70-6.10) Hemoglobin 9.3 G/DL (14.2-18.0) 10.0 G/DL (14.2-18.0) Hematocrit 31.0 % (42.0-52.0) 32.6 % (42.0-52.0) Mean Corpuscular Volume 98 FL (80-99) 98 FL (80-99) Mean Corpuscular Hemoglobin 29.5 PG (27.0-31.0) 30.1 PG (27.0-31.0) Mean Corpuscular Hemoglobin Concent 30.1 G/DL (32.0-36.0) 30.7 G/DL (32.0-36.0) Red Cell Distribution Width 15.3 % (11.6-14.8) 15.2 % (11.6-14.8) Platelet Count 115 K/UL (150-450) 105 K/UL (150-450) Mean Platelet Volume 8.2 FL (6.5-10.1) 6.7 FL (6.5-10.1) Neutrophils (%) (Auto) % (45.0-75.0) % (45.0-75.0) Lymphocytes (%) (Auto) % (20.0-45.0) % (20.0-45.0) Monocytes (%) (Auto) % (1.0-10.0) % (1.0-10.0) Eosinophils (%) (Auto) % (0.0-3.0) % (0.0-3.0) Basophils (%) (Auto) % (0.0-2.0) % (0.0-2.0) Sodium Level 145 MMOL/L (136-145) 146 MMOL/L (136-145) Potassium Level 4.2 MMOL/L (3.5-5.1) 4.1 MMOL/L (3.5-5.1) Chloride Level 112 MMOL/L (98-107) 114 MMOL/L (98-107) Carbon Dioxide Level 29 MMOL/L (21-32) 28 MMOL/L (21-32) Anion Gap 4 mmol/L (5-15) 4 mmol/L (5-15) Blood Urea Nitrogen 31 mg/dL (7-18) 39 mg/dL (7-18) Creatinine 0.9 MG/DL (0.55-1.30) 0.9 MG/DL (0.55-1.30) Estimat Glomerular Filtration Rate mL/min (>60) mL/min (>60) Glucose Level 110 MG/DL (74-106) 118 MG/DL (74-106) Calcium Level 8.9 MG/DL (8.5-10.1) 9.0 MG/DL (8.5-10.1) Total Bilirubin 0.6 MG/DL (0.2-1.0) Aspartate Amino Transf (AST/SGOT) 29 U/L (15-37) Alanine Aminotransferase (ALT/SGPT) 39 U/L (12-78) Alkaline Phosphatase 45 U/L (46-116) Total Protein 5.7 G/DL (6.4-8.2) Albumin 2.7 G/DL (3.4-5.0) Globulin 3.0 g/dL Albumin/Globulin Ratio 0.9 (1.0-2.7) Ferritin 248 NG/ML (8-388) HIV (1&2) Antibody Rapid Negative (NEGATIVE) Arterial Blood pH 7.199 (7.350-7.450) Arterial Blood Partial Pressure CO2 63.8 mmHg (35.0-45.0) Arterial Blood Partial Pressure O2 69.1 mmHg (75.0-100.0) Arterial Blood HCO3 24.3 mmol/L (22.0-26.0) Arterial Blood Oxygen Saturation 88.5 % (95-100) Arterial Blood Base Excess -4.4 (-2-2) Delon Test Positive Height (Feet): 5 Height (Inches): 10.00 Weight (Pounds): 157 Objective General Appearance: sedated on ventilator Head: normocephalic, atraumatic Neck: supple ++ NG Respiratory: generally reduced bs + VENT Cardiovascular: tachycardia, HS1, HS2, RRR Gastrointestinal: non tender, soft Musculoskeletal: normal inspection Neurologic: sedated on ventilator Skin: no rash, palpation normal Conrado Morel MD Feb 01, 2019 18:44
--- NOTE | 2019-02-01 19:05 | NUR ---
RESPIRATORY NOTE: Received pt on AC 16, 500VT, 30%, PEEP +5. Pt intubated w/ ETT 8.0 @ 25cm lipline, secured by anchorfast. Pt sedated. Bite block in place as pt tends to clench jaw. Both hands on soft restraints to prevent pt from self-extubation. B/S bogdan. diminished, sxn minimal amounts of thick/thin, bloody-brown secretions. Vent plugged into red outlet, ambubag at bedside. Pt in no apparent distress at this time. Will continue to monitor pt.
--- NOTE | 2019-02-01 19:35 | NUR ---
NURSE NOTES: PATIENT SEDATED, ON ETT TO VENT, AC 16/TV 500/FIO2 30%/PEEP 5, O2 SATURATION 100% NOTED, NGT TO RIGHT NARES, ONGOING VITAL AF 1.2 AT 35ML/HR, RESIDUE 30ml NOTED, KEPT HOB OVER 30 DEGREES, ABDOMEN TENDER, HYPOACTIVE BOWEL SOUND, NO BOWEL MOVEMENT STATUS, F/C INTACT AND PATENT, YELLOW URINE WITH SEDIMENT OUTED, TLC TO RIGHT IJ, INTACT AND PATENT, ONGOING D5 NS AT 50ML/HR AND FENTANYL DRIP 120MCG/HR VIA TLC, KEPT 2 POINT SOFT RESTRAINTS FOR SAFETY, MADE LOWER BED POSITION AND ON BED ALARM, PROVIDED CALL LIGHT WITHIN REACH, WILL CONTINUE TO MONITOR.
[2019-02-01] MEDS: Dyna-Hex 2% Top Sol 2oz TOPIC SCH (19:53)
[2019-02-01] MEDS: Miralax 17gm pkt GT SCH (20:34)
--- NOTE | 2019-02-01 22:00 | NUR ---
NURSE NOTES: REPOSITIONED, RELEASED RESTRAINTS AND REAPPLIED FOR SAFETY, WILL CONTINUE TO MONITOR.
--- NOTE | 2019-02-01 22:33 | Cardiology Progress Note ---
Assessment/Plan Assessment/Plan 1. Acute respiratory failure, intubated, failed weaning process, DNR status, pulmonary follow up. 2. Cardiopulmonary arrest x 2. 3. Non-STEMI, conservative management as he is DNR. 4. Moderate aortic regurgitation with normal LV systolic function. Subjective Subjective Sinus bradycardia at rate of 51. Intubated. Objective Last 24 Hour Vital Signs Date Time Temp Pulse Resp B/P (MAP) Pulse Ox O2 Delivery O2 Flow Rate FiO2 02/01/19 22:25 16 Mechanical Ventilator 30 02/01/19 22:22 16 Mechanical Ventilator 30 02/01/19 22:15 51 16 113/62 (79) 100 02/01/19 22:10 16 Mechanical Ventilator 30 02/01/19 22:00 52 16 130/65 (86) 100 02/01/19 22:00 16 Mechanical Ventilator 30 02/01/19 21:45 54 16 118/63 (81) 100 02/01/19 21:30 55 16 127/67 (87) 100 02/01/19 21:03 76 16 30 02/01/19 21:00 16 Mechanical Ventilator 30 02/01/19 21:00 81 16 135/66 (89) 100 02/01/19 20:45 67 16 150/74 (99) 100 02/01/19 20:30 61 16 134/70 (91) 100 02/01/19 20:15 75 16 126/66 (86) 100 02/01/19 20:00 Mechanical Ventilator 02/01/19 20:00 30 02/01/19 20:00 16 Mechanical Ventilator 30 02/01/19 20:00 97.8 97 17 176/76 (109) 86 02/01/19 19:55 16 Mechanical Ventilator 30 02/01/19 19:50 16 Mechanical Ventilator 30 02/01/19 19:45 16 Mechanical Ventilator 30 02/01/19 19:45 54 16 117/60 (79) 100 02/01/19 19:40 16 Mechanical Ventilator 30 02/01/19 19:30 52 13 113/57 (75) 100 02/01/19 19:09 55 02/01/19 19:04 53 16 30 02/01/19 19:00 55 16 116/60 (78) 100 02/01/19 19:00 16 Mechanical Ventilator 30 02/01/19 18:30 54 16 122/70 (87) 100 02/01/19 18:30 16 Mechanical Ventilator 30 02/01/19 18:20 16 Mechanical Ventilator 30 02/01/19 18:10 16 Mechanical Ventilator 30 02/01/19 18:01 61 16 119/64 (82) 100 02/01/19 18:00 16 Mechanical Ventilator 30 02/01/19 17:30 82 16 161/83 (109) 100 02/01/19 17:16 70 16 30 02/01/19 17:00 16 Non-Rebreather 30 02/01/19 17:00 16 Mechanical Ventilator 30 02/01/19 17:00 66 16 138/66 (90) 100 02/01/19 16:30 72 16 156/71 (99) 100 02/01/19 16:00 84 02/01/19 16:00 16 Mechanical Ventilator 30 02/01/19 16:00 97.5 89 19 166/76 (106) 100 02/01/19 16:00 Mechanical Ventilator 02/01/19 15:40 Mechanical Ventilator 30 02/01/19 15:30 18 Mechanical Ventilator 30 02/01/19 15:30 84 19 149/108 (122) 100 02/01/19 15:20 Mechanical Ventilator 30 02/01/19 15:14 63 16 30 02/01/19 15:10 20 Mechanical Ventilator 30 02/01/19 15:00 20 Mechanical Ventilator 30 02/01/19 15:00 65 16 143/72 (95) 100 02/01/19 14:50 20 Mechanical Ventilator 30 02/01/19 14:40 20 Mechanical Ventilator 30 02/01/19 14:30 59 16 128/68 (88) 100 02/01/19 14:30 22 Mechanical Ventilator 30 02/01/19 14:20 28 Mechanical Ventilator 30 02/01/19 14:13 98.1 02/01/19 14:10 28 Mechanical Ventilator 30 02/01/19 14:00 16 Mechanical Ventilator 30 02/01/19 14:00 58 16 125/88 (100) 100 02/01/19 13:43 16 Mechanical Ventilator 30.0 30 02/01/19 13:40 16 Mechanical Ventilator 30 02/01/19 13:35 16 Mechanical Ventilator 30 02/01/19 13:30 64 16 109/74 (86) 100 02/01/19 13:30 63 16 109/73 (85) 100 02/01/19 13:30 16 Mechanical Ventilator 30 02/01/19 13:11 70 16 30 02/01/19 13:00 Mechanical Ventilator 30 02/01/19 13:00 69 16 98/62 (74) 100 02/01/19 12:30 97 18 146/68 (94) 100 02/01/19 12:15 30 02/01/19 12:05 100 02/01/19 12:00 80 02/01/19 12:00 98.1 76 16 132/68 (89) 100 02/01/19 12:00 Mechanical Ventilator 30 02/01/19 12:00 Mechanical Ventilator 02/01/19 12:00 83 13 132/68 (89) 100 02/01/19 11:55 16 Mechanical Ventilator 30 02/01/19 11:50 16 Mechanical Ventilator 30 02/01/19 11:40 16 Mechanical Ventilator 30 02/01/19 11:30 76 16 132/68 (89) 100 02/01/19 11:30 16 Mechanical Ventilator 30 02/01/19 11:00 62 12 115/56 (75) 100 02/01/19 11:00 Mechanical Ventilator 30 02/01/19 10:56 64 13 30 30 02/01/19 10:30 66 12 119/62 (81) 100 02/01/19 10:00 68 13 110/59 (76) 100 02/01/19 10:00 16 Mechanical Ventilator 30 02/01/19 09:30 78 11 103/63 (76) 100 02/01/19 09:07 92 13 30 30 02/01/19 09:00 30 02/01/19 09:00 94 15 110/69 (83) 98 02/01/19 09:00 16 Mechanical Ventilator 30 02/01/19 08:30 16 Mechanical Ventilator 30 02/01/19 08:30 57 16 110/69 (83) 100 02/01/19 08:00 30 02/01/19 08:00 56 16 104/70 (81) 100 02/01/19 08:00 Mechanical Ventilator 02/01/19 08:00 16 Mechanical Ventilator 30 02/01/19 08:00 57 02/01/19 07:50 16 Mechanical Ventilator 30 02/01/19 07:40 Mechanical Ventilator 30 02/01/19 07:30 97.6 57 16 106/72 (83) 100 02/01/19 07:30 16 Mechanical Ventilator 30 02/01/19 07:20 16 Mechanical Ventilator 30 02/01/19 07:10 16 Mechanical Ventilator 30 02/01/19 07:05 60 16 30 02/01/19 07:00 61 16 104/66 (79) 100 02/01/19 07:00 16 Mechanical Ventilator 30 02/01/19 06:50 16 Mechanical Ventilator 30 02/01/19 06:45 16 Mechanical Ventilator 30 02/01/19 06:40 16 Mechanical Ventilator 30 02/01/19 06:30 60 16 100/66 (77) 100 02/01/19 06:10 16 Mechanical Ventilator 30 02/01/19 06:00 16 Mechanical Ventilator 30 02/01/19 06:00 61 16 105/65 (78) 100 02/01/19 05:30 61 16 99/69 (79) 100 02/01/19 05:13 59 16 30 02/01/19 05:05 16 30 02/01/19 05:00 57 16 101/68 (79) 100 02/01/19 05:00 16 Mechanical Ventilator 30 02/01/19 04:30 61 16 107/67 (80) 100 02/01/19 04:00 Mechanical Ventilator 02/01/19 04:00 16 Mechanical Ventilator 30 02/01/19 04:00 30 02/01/19 04:00 97.5 68 16 107/71 (83) 99 02/01/19 03:30 62 16 98/70 (79) 100 02/01/19 03:19 62 02/01/19 03:08 62 16 30 02/01/19 03:00 16 Mechanical Ventilator 30 02/01/19 03:00 59 16 105/70 (82) 100 02/01/19 02:30 63 16 102/78 (86) 100 02/01/19 02:00 65 16 100/78 (85) 100 02/01/19 02:00 16 Mechanical Ventilator 30 02/01/19 01:30 60 15 119/77 (91) 100 02/01/19 01:19 66 16 30 02/01/19 01:00 16 Mechanical Ventilator 30 02/01/19 01:00 66 16 111/70 (84) 100 02/01/19 00:30 78 16 112/74 (87) 100 02/01/19 00:12 99 16 129/81 (97) 94 02/01/19 00:07 22 Mechanical Ventilator 30 02/01/19 00:00 30 02/01/19 00:00 Mechanical Ventilator 02/01/19 00:00 16 Mechanical Ventilator 30 02/01/19 00:00 97.8 110 23 186/127 (146) 100 01/31/19 23:30 64 16 117/75 (89) 100 01/31/19 23:16 65 16 30 01/31/19 23:11 65 01/31/19 23:00 16 Mechanical Ventilator 30 01/31/19 23:00 65 16 111/77 (88) 100 Intake and Output 01/31/19 02/01/19 19:00 07:00 Intake Total 1348.5 ml 1637.0 ml Output Total 640 ml 630 ml Balance 708.5 ml 1007.0 ml Intake Free Water 120 ml IV Total 868.5 ml 1082.0 ml Tube Feeding 360 ml 555 ml Output Urine Total 640 ml 630 ml 2D Echo: LVEF 55%, moderate AR Laboratory Tests Test 02/01/19 03:40 02/01/19 11:35 White Blood Count 11.8 K/UL (4.8-10.8) H Red Blood Count 3.32 M/UL (4.70-6.10) L Hemoglobin 10.0 G/DL (14.2-18.0) L Hematocrit 32.6 % (42.0-52.0) L Mean Corpuscular Volume 98 FL (80-99) Mean Corpuscular Hemoglobin 30.1 PG (27.0-31.0) Mean Corpuscular Hemoglobin Concent 30.7 G/DL (32.0-36.0) L Red Cell Distribution Width 15.2 % (11.6-14.8) H Platelet Count 105 K/UL (150-450) L Mean Platelet Volume 6.7 FL (6.5-10.1) Neutrophils (%) (Auto) % (45.0-75.0) Lymphocytes (%) (Auto) % (20.0-45.0) Monocytes (%) (Auto) % (1.0-10.0) Eosinophils (%) (Auto) % (0.0-3.0) Basophils (%) (Auto) % (0.0-2.0) Sodium Level 146 MMOL/L (136-145) H Potassium Level 4.1 MMOL/L (3.5-5.1) Chloride Level 114 MMOL/L (98-107) H Carbon Dioxide Level 28 MMOL/L (21-32) Anion Gap 4 mmol/L (5-15) L Blood Urea Nitrogen 39 mg/dL (7-18) H Creatinine 0.9 MG/DL (0.55-1.30) Estimat Glomerular Filtration Rate mL/min (>60) Glucose Level 118 MG/DL (74-106) H Calcium Level 9.0 MG/DL (8.5-10.1) Arterial Blood pH 7.199 (7.350-7.450) Arterial Blood Partial Pressure CO2 63.8 mmHg (35.0-45.0) *H Arterial Blood Partial Pressure O2 69.1 mmHg (75.0-100.0) L Arterial Blood HCO3 24.3 mmol/L (22.0-26.0) Arterial Blood Oxygen Saturation 88.5 % (95-100) *L Arterial Blood Base Excess -4.4 (-2-2) L Delon Test Positive Objective HEENT: Atraumatic, arousable, orally intubated, conjunctival pallor. NECK: Cannot assess JVD, no carotid bruit. LUNGS: Bilateral breath sounds. Few rhonchi. No wheezing. CARDIAC: Regular rhythm and rate. Normal S1 and S2. No murmurs, gallops or rubs. ABDOMEN: Soft, non-distended, + BS. EXTREMITIES: No edema, clubbing or cyanosis. Lv Zuniga MD Feb 01, 2019 22:33
[2019-02-02] VITALS (82 sets, daily range): BP systolic 82–188; BP diastolic 56–138
--- NOTE | 2019-02-02 00:10 | NUR ---
NURSE NOTES: KEPT RASS SCORE -2, ON FENTANYL 120MCG/HR PER PROTOCOLS, WILL CONTINUE PLAN OF CARE.
--- NOTE | 2019-02-02 02:20 | NUR ---
NURSE NOTES: REPOSITIONED, ORAL CARE WAS DONE.
--- NOTE | 2019-02-02 04:40 | NUR ---
NURSE NOTES: MORNING CARE WAS DONE, RESISTANCE TO CARE STATUS, SECURED RESTRAINTS FOR SAFETY AT THIS TIME.
[2019-02-02] MEDS: D5NS 1,000 ML IV SCH (05:13)
[2019-02-02] MEDS: Piperacillin/Tazobactam 3.375 GM in NS 110 ML IVPB SCH ×3 (05:57→21:34)
[2019-02-02] MEDS: NovoLOG Insulin Flexpen SUBQ SCH ×4 (05:58→23:56)
--- NOTE | 2019-02-02 06:26 | NUR ---
NURSE NOTES: PATIENT DROWSY WITH FENTANYL DRIP 180MCG/MIN AT THIS TIME, ON RASS SCORE -1, WILL CONTINUE TO MONITOR.
[2019-02-02 06:27] LABS: HEMATOCRIT 37.5 % (42.0-52.0); HEMOGLOBIN 11.4 G/DL (14.2-18.0); MEAN CORPUSCULAR VOLUME 99 FL (80-99); PLATELET COUNT 119 K/UL (150-450); RED BLOOD COUNT 3.77 M/UL (4.70-6.10); RED CELL DISTRIBUTION WIDTH 15.3 % (11.6-14.8); WHITE BLOOD COUNT 19.1 K/UL (4.8-10.8)
[2019-02-02 06:59] LABS: ANION GAP 5 mmol/L (5-15); BLOOD UREA NITROGEN 31 mg/dL (7-18); CALCIUM 9.2 MG/DL (8.5-10.1); CARBON DIOXIDE 30 MMOL/L (21-32); CHLORIDE 117 MMOL/L (98-107); CREATININE 0.8 MG/DL (0.55-1.30); POTASSIUM 4.2 MMOL/L (3.5-5.1); SODIUM 152 MMOL/L (136-145)
--- NOTE | 2019-02-02 07:00 | NUR ---
NURSE NOTES: Report received pt from GENNY Guzman. Patient is drowsy, RASS -1. Opens eyes to physical stimulation. Patient on 2 point soft wrist restraints for safety, due to pt being easily agitated, attempting to pull out tubes. Orally intubated ETT 8.0/25cm at lip line, 16/500/30%/+5, Spo2 100%, RR 16. Right nare NGT clamped for weaning this AM. Abd is non-distended but firm. RIJ TLC running Fentanyl@180mcg/kg/hr and D5NS@50mL/hr. RFA 20G patent and asymptomatic. FC draining well to gravity. DNR/DNI status maintained. Sinus Bradycardia on diagnostic cardiac sonographer. No signs of distress at this time. Bed locked, alarmed and in lowest position. Will resume plan of care.
--- NOTE | 2019-02-02 07:30 | NUR ---
NURSE NOTES: Fentanyl @180mcg/kg/hr decreased to Fentanyl @100mcg/kg/hr d/t low HR, in the 50's. Remains Rass -1. Will attempt to wean at Rass 0, as ordered.
--- NOTE | 2019-02-02 07:36 | NUR ---
RESPIRATORY NOTE: received pt orally intubated with ETT 8.0 placed 25cm at the lip. no signs of resp distress at this time. pt has OPA in place because of pt constantly biting on the tube. aware that pt was reintubated yesterday due to defected cuff/ETT. will confirm with RN and MD if okay to wean. alarms are set and audible. ambu bag at bedside. no redness or skin tears visible around facial area. will cont to monitor.
--- NOTE | 2019-02-02 08:50 | NUR ---
RESPIRATORY NOTE: attempted to wean with CPAP PS8 and PS10. pt had difficulty breathing. will attempt to wean later this morning. RN notified
--- NOTE | 2019-02-02 09:20 | NUR ---
NURSE NOTES: Fentanyl 100mcg/kg/hr increased to Fentanyl 120mcg/kg/hr d/t increased agitation following last med decrease. Rass +1. VSS. Will attempt to wean at Rass 0, as ordered.
[2019-02-02] MEDS: Enoxaparin 40mg Inj SUBQ SCH (09:48)
[2019-02-02] MEDS: Solu-MEDROL 125mg Inj IVP SCH ×2 (09:49→20:43)
[2019-02-02] MEDS: Doxycycline Hyclate 100 MG in D5W 110 ML IV SCH ×2 (09:50→20:43)
[2019-02-02] MEDS: Pantoprazole Inj IVP SCH (09:50)
--- NOTE | 2019-02-02 10:20 | NUR ---
NURSE NOTES: Respiratory therapist attempted weaning with CPAP, PS 16; however, pt did not tolerate at this time. RT will try weaning again later. Addendum: 02/02/19 at 1205 by Cecelia Barrera RN Respiratory therapist attempted weaning with CPAP, PS 14; however, pt did not tolerate at this time. RT will try weaning again later.
--- NOTE | 2019-02-02 11:05 | NUR ---
NURSE NOTES: Pt appears agitated and uncomfortable. Fentanyl increased to 120mcg/hr. Dr White saw pt during rounds. Updated Dr with pt's current condition. PT will wean pt as tolerated.
--- NOTE | 2019-02-02 11:08 | NUR ---
RESPIRATORY NOTE: pt more awake, not fully following what is asked. placed pt on CPAP PS 14. per MD no less than PS of 12. pt in no resp distress at this time. will cont to monitor.
[2019-02-02] MEDS: D5 1/2NS 1,000 ML IV SCH (11:45)
--- NOTE | 2019-02-02 11:45 | NUR ---
NURSE NOTES: ABG drawn. Dr White notified regarding results. No new orders. Placed pt back on AC/VC. Fentanyl increased to 150mcg/kg/hr d/t pt's restlessness and discomfort. Repositioned pt at this time.
[2019-02-02] MEDS: fentaNYL Citrate 2,500 MCG in NS 200 ML IV SCH ×2 (12:37→13:08)
--- NOTE | 2019-02-02 14:00 | Pulmonolgy Critical Care Note ---
Critical Care - Asmt/Plan Assessment/Plan: Pulmonary Critical Care Progress Note HPI Patient is a 73 year olf man with previous history of COPD, CHF, HTN, DM admitted with extreme respiratory distress, intubated in the ED, subsequent Cardiac Arrest. Noted to have hypercapneic respiratory failure. Interactive today, improved ventilator requirements, did not tolerate weaning today - high RR/agitation CT Head negative Allergies: No Known Allergies Past Medical History: COPD/Asthma, CHF, Hypertension, DM All Other Systems: limited Physical Exam Vital signs noted General Appearance: sedated on ventilator Head: normocephalic, atraumatic Eyes: bilateral eye PERRL, bilateral eye EOMI ENT: moist mm, no LN Neck: supple Respiratory: generally reduced BS, occasional wheeze Cardiovascular: tachycardia, HS1, HS2, RRR Gastrointestinal: non tender, soft Musculoskeletal: normal inspection Neurologic: sedated on ventilator Skin: no rash, palpation normal Impression: COPD exacerbation Hypercapneic respiratory failure S/p cardiac arrest in the ED CHF HTN Diabetes Plan Wean as tolerated Adjust FIO2 for sats 90-94% HHN Q4 IV Solumedrol Sedation PRN Sz management Monitor labs PPX IV Doxycycline DNR status Labs Test 01/26/19 05:45 White Blood Count 9.6 K/UL (4.8-10.8) Red Blood Count 4.57 M/UL (4.70-6.10) Hemoglobin 13.5 G/DL (14.2-18.0) Hematocrit 46.0 % (42.0-52.0) Mean Corpuscular Volume 101 FL (80-99) Mean Corpuscular Hemoglobin 29.6 PG (27.0-31.0) Mean Corpuscular Hemoglobin Concent 29.4 G/DL (32.0-36.0) Red Cell Distribution Width 15.2 % (11.6-14.8) Platelet Count 181 K/UL (150-450) Mean Platelet Volume 7.5 FL (6.5-10.1) Neutrophils (%) (Auto) 49.7 % (45.0-75.0) Lymphocytes (%) (Auto) 33.3 % (20.0-45.0) Monocytes (%) (Auto) 8.2 % (1.0-10.0) Eosinophils (%) (Auto) 8.2 % (0.0-3.0) Basophils (%) (Auto) 0.7 % (0.0-2.0) Lactic Acid Level 0.80 mmol/L (0.4-2.0) Chest X-Ray: No consolidation, no effusion, ETT tube 7cm, RIJ line good position Critical Care - Objective Last 24 Hour Vital Signs Date Time Temp Pulse Resp B/P (MAP) Pulse Ox O2 Delivery O2 Flow Rate FiO2 02/02/19 13:08 16 Mechanical Ventilator 30 02/02/19 13:02 88 22 30 02/02/19 13:00 61 16 117/71 (86) 100 02/02/19 12:45 61 16 117/71 (86) 100 02/02/19 12:37 16 Mechanical Ventilator 30 02/02/19 12:30 66 16 108/64 (79) 99 02/02/19 12:15 83 16 169/70 (103) 95 02/02/19 12:00 30 02/02/19 12:00 Mechanical Ventilator 02/02/19 12:00 98.2 72 16 105/68 (80) 100 02/02/19 11:52 84 16 115/74 (88) 100 02/02/19 11:45 99 17 174/138 (150) 100 02/02/19 11:45 30 02/02/19 11:35 85 02/02/19 11:30 87 17 160/74 (102) 97 02/02/19 11:21 87 17 160/74 (102) 97 02/02/19 11:15 89 19 160/74 (102) 41 02/02/19 11:05 30 02/02/19 11:02 91 19 30 02/02/19 11:00 89 20 120/70 (87) 83 02/02/19 10:45 58 16 120/70 (87) 100 02/02/19 10:30 62 16 121/62 (81) 98 02/02/19 10:15 83 19 125/68 (87) 93 02/02/19 10:00 64 16 112/66 (81) 99 02/02/19 09:45 76 17 133/110 (118) 99 02/02/19 09:30 69 16 108/63 (78) 98 02/02/19 09:21 94 24 177/69 (105) 92 02/02/19 09:15 77 16 177/69 (105) 97 02/02/19 09:00 95 20 177/69 (105) 95 02/02/19 08:49 94 18 30 02/02/19 08:45 82 18 155/72 (99) 94 02/02/19 08:30 69 16 155/72 (99) 100 02/02/19 08:15 83 16 155/72 (99) 100 02/02/19 08:00 30 02/02/19 08:00 98.5 53 16 127/60 (82) 100 02/02/19 08:00 Mechanical Ventilator 02/02/19 07:45 53 16 107/58 (74) 100 02/02/19 07:33 51 16 30 02/02/19 07:30 53 16 97/68 (78) 100 02/02/19 07:24 60 02/02/19 07:15 54 16 97/68 (78) 100 02/02/19 07:00 55 16 96/65 (75) 100 02/02/19 07:00 16 Mechanical Ventilator 02/02/19 06:30 52 16 110/64 (79) 100 02/02/19 06:15 52 16 108/62 (77) 100 02/02/19 06:00 15 Mechanical Ventilator 30 02/02/19 06:00 53 15 142/65 (90) 100 02/02/19 05:45 52 16 101/65 (77) 100 02/02/19 05:30 53 16 104/66 (79) 100 02/02/19 05:15 54 16 116/63 (80) 100 02/02/19 05:13 16 Mechanical Ventilator 02/02/19 05:01 79 16 30 02/02/19 05:00 16 Mechanical Ventilator 30 02/02/19 05:00 70 16 134/83 (100) 100 02/02/19 04:45 94 22 182/89 (120) 100 02/02/19 04:30 82 19 169/80 (109) 99 02/02/19 04:18 89 17 178/74 (108) 100 02/02/19 04:00 97.5 55 15 118/62 (80) 100 02/02/19 04:00 16 Mechanical Ventilator 30 02/02/19 04:00 30 02/02/19 04:00 Mechanical Ventilator 02/02/19 03:50 16 Mechanical Ventilator 30 02/02/19 03:45 58 16 126/61 (82) 100 02/02/19 03:40 16 Mechanical Ventilator 30 02/02/19 03:30 90 17 173/71 (105) 100 02/02/19 03:30 17 Mechanical Ventilator 30 02/02/19 03:20 16 Mechanical Ventilator 30 02/02/19 03:15 60 15 145/65 (91) 100 02/02/19 03:05 65 02/02/19 03:00 77 16 129/66 (87) 100 02/02/19 03:00 16 Mechanical Ventilator 30 02/02/19 02:59 78 16 138/68 (91) 100 02/02/19 02:47 100 19 30 02/02/19 02:30 58 16 112/63 (79) 100 02/02/19 02:00 61 16 117/58 (77) 100 02/02/19 02:00 16 Mechanical Ventilator 30 02/02/19 01:30 59 16 136/60 (85) 100 02/02/19 01:15 66 16 135/61 (85) 100 02/02/19 01:02 68 16 30 02/02/19 01:00 75 17 134/62 (86) 100 02/02/19 01:00 17 Mechanical Ventilator 30 02/02/19 00:30 68 16 129/68 (88) 100 02/02/19 00:15 63 16 127/62 (83) 100 02/02/19 00:00 30 02/02/19 00:00 Mechanical Ventilator 02/02/19 00:00 16 Mechanical Ventilator 30 02/02/19 00:00 98.0 71 16 124/67 (86) 100 02/01/19 23:45 101 20 171/75 (107) 100 02/01/19 23:09 103 02/01/19 23:00 58 18 156/79 (104) 100 02/01/19 23:00 18 Mechanical Ventilator 30 02/01/19 22:56 51 16 30 02/01/19 22:45 51 17 121/63 (82) 100 02/01/19 22:35 16 Mechanical Ventilator 30 02/01/19 22:30 50 16 118/63 (81) 100 02/01/19 22:30 16 Mechanical Ventilator 30 02/01/19 22:25 16 Mechanical Ventilator 30 02/01/19 22:22 16 Mechanical Ventilator 30 02/01/19 22:15 51 16 113/62 (79) 100 02/01/19 22:10 16 Mechanical Ventilator 30 02/01/19 22:00 52 16 130/65 (86) 100 02/01/19 22:00 16 Mechanical Ventilator 30 02/01/19 21:45 54 16 118/63 (81) 100 02/01/19 21:30 55 16 127/67 (87) 100 02/01/19 21:03 76 16 30 02/01/19 21:00 16 Mechanical Ventilator 30 02/01/19 21:00 81 16 135/66 (89) 100 02/01/19 20:45 67 16 150/74 (99) 100 02/01/19 20:30 61 16 134/70 (91) 100 02/01/19 20:15 75 16 126/66 (86) 100 02/01/19 20:00 Mechanical Ventilator 02/01/19 20:00 30 02/01/19 20:00 16 Mechanical Ventilator 30 02/01/19 20:00 97.8 97 17 176/76 (109) 86 02/01/19 19:55 16 Mechanical Ventilator 30 02/01/19 19:50 16 Mechanical Ventilator 30 02/01/19 19:45 16 Mechanical Ventilator 30 02/01/19 19:45 54 16 117/60 (79) 100 02/01/19 19:40 16 Mechanical Ventilator 30 02/01/19 19:30 52 13 113/57 (75) 100 02/01/19 19:09 55 02/01/19 19:04 53 16 30 02/01/19 19:00 55 16 116/60 (78) 100 02/01/19 19:00 16 Mechanical Ventilator 30 02/01/19 18:30 54 16 122/70 (87) 100 02/01/19 18:30 16 Mechanical Ventilator 30 02/01/19 18:20 16 Mechanical Ventilator 30 02/01/19 18:10 16 Mechanical Ventilator 30 02/01/19 18:01 61 16 119/64 (82) 100 02/01/19 18:00 16 Mechanical Ventilator 30 02/01/19 17:30 82 16 161/83 (109) 100 02/01/19 17:16 70 16 30 02/01/19 17:00 16 Non-Rebreather 30 02/01/19 17:00 16 Mechanical Ventilator 30 02/01/19 17:00 66 16 138/66 (90) 100 02/01/19 16:30 72 16 156/71 (99) 100 02/01/19 16:00 84 02/01/19 16:00 16 Mechanical Ventilator 30 02/01/19 16:00 97.5 89 19 166/76 (106) 100 02/01/19 16:00 Mechanical Ventilator 02/01/19 15:40 Mechanical Ventilator 30 02/01/19 15:30 18 Mechanical Ventilator 30 02/01/19 15:30 84 19 149/108 (122) 100 02/01/19 15:20 Mechanical Ventilator 02/01/19 15:14 63 16 30 02/01/19 15:10 20 Mechanical Ventilator 02/01/19 15:00 20 Mechanical Ventilator 30 02/01/19 15:00 65 16 143/72 (95) 100 02/01/19 14:50 20 Mechanical Ventilator 02/01/19 14:40 20 Mechanical Ventilator 02/01/19 14:30 59 16 128/68 (88) 100 02/01/19 14:30 22 Mechanical Ventilator 30 02/01/19 14:20 28 Mechanical Ventilator 02/01/19 14:13 98.1 02/01/19 14:10 28 Mechanical Ventilator 30 02/01/19 14:00 16 Mechanical Ventilator 30 02/01/19 14:00 58 16 125/88 (100) 100 Accucheck: 99 Critical Care - Subjective ROS Limited/Unobtainable: No Condition: stable FI02: 30 Vent Support Breath Rate: 16 Vent Support Mode: AC Vent Tidal Volume: 500 Sputum Amount: Scant PEEP: 5.0 PIP: 21 Tube Feeding Amount: 0 I&O: Intake and Output 02/01/19 02/02/19 19:00 07:00 Intake Total 1138.25 ml 1409.0 ml Output Total 670 ml 1170 ml Balance 468.25 ml 239.0 ml Intake Free Water 150 ml IV Total 883.25 ml 1029.0 ml Tube Feeding 105 ml 280 ml Other 100 ml Output Urine Total 670 ml 1170 ml ET-Tube: 8.0 ET Position: 25 Johny White MD Feb 02, 2019 14:00
--- NOTE | 2019-02-02 14:00 | NUR ---
NURSE NOTES: Patient appears calm, remains RASS-2 at this time. Pt repositioned. No distress noted.
--- NOTE | 2019-02-02 16:30 | NUR ---
NURSE NOTES: Cleaned pt for moderate amount of soft brown BM. Repositioned pt. Pt fights and restless during cleaning but after repositioning, pt is clam and lightly sedated. Will continue to monitor.
--- NOTE | 2019-02-02 16:39 | NUR ---
RESPIRATORY NOTE: pt was placed back on AC around 1135 post ABG. no new orders for pt. Results relayed to RN to MD. will cont to monitor.
[2019-02-02] MEDS ORDERED: D5 1/2NS 1000ml IV ONE (17:17)
[2019-02-02] MEDS ORDERED: NS 275ml ONE (17:17)
[2019-02-02] MEDS ORDERED: D5NS 1000ml IV ONE (17:17)
[2019-02-02] MEDS ORDERED: Docusate 100mg cap ORAL SCH (18:00)
[2019-02-02] MEDS: Docusate 100mg tablet NG SCH (18:00)
[2019-02-02] MEDS ORDERED: Docusate 100mg/10ml Liq NG SCH (18:00)
--- NOTE | 2019-02-02 19:16 | Infectious Diseases Prog Note ---
Assessment/Plan Problems: (1) Aspiration pneumonia Assessment & Plan: due to cardiac arrest, with enterobacter cloacea, continue zosyn empirically for 10 days . aspiration precaution . (2) Leukocytosis Assessment & Plan: partially due to steroids , rule out sepsis, blood culture x2 so far is negative , repeated CXR ruled out aspiration or new infiltrates , still concern about aspiration after two codes blue . sputum culture grew Enterobacter cloacae , continue zosyn for 10 days . taper steroids (3) Acute exacerbation of chronic obstructive pulmonary disease (COPD) Assessment & Plan: continue doxycycline for five days only , and nebulizer treatment as per pulmonary (4) Cardiac arrest Assessment & Plan: etiology ? cardiology eval to rule out cardiac sources and neurology eval to evaluate his brain condition and to rule out anoxic brain injury (5) Chronic hypercapnic respiratory failure Assessment & Plan: S/P cardiac arrest , S/P intubation, monitor in ICU, pulmonary is following Subjective ROS Limited/Unobtainable: Yes Allergies: Coded Allergies: No Known Allergies (Unverified , 06/05/18) Subjective He is still intubated on mechanical ventilation, awake and responsive today , trying to set up in bed, not febrile. Objective Vital Signs Last 24 Hour Vital Signs Date Time Temp Pulse Resp B/P (MAP) Pulse Ox O2 Delivery O2 Flow Rate FiO2 02/02/19 18:30 80 16 94/66 (75) 99 02/02/19 18:00 55 16 98/64 (75) 100 02/02/19 17:30 55 16 101/64 (76) 100 02/02/19 17:00 98.3 56 16 100/64 (76) 100 02/02/19 16:40 55 16 30 02/02/19 16:30 54 16 94/64 (74) 100 02/02/19 16:15 55 16 94/68 (77) 100 02/02/19 16:00 56 16 93/63 (73) 100 02/02/19 16:00 30 02/02/19 16:00 Mechanical Ventilator 02/02/19 16:00 16 Mechanical Ventilator 30 02/02/19 15:45 58 15 100/66 (77) 99 02/02/19 15:30 56 16 100/66 (77) 100 02/02/19 15:18 56 02/02/19 15:15 57 16 107/70 (82) 100 02/02/19 15:00 16 Mechanical Ventilator 30 02/02/19 15:00 61 14 129/68 (88) 100 02/02/19 14:46 16 Mechanical Ventilator 02/02/19 14:45 78 16 132/67 (88) 100 02/02/19 14:42 108 17 30 02/02/19 14:30 95 18 188/69 (108) 100 02/02/19 14:15 73 17 181/69 (106) 93 02/02/19 14:00 16 Mechanical Ventilator 02/02/19 14:00 57 16 169/128 (142) 100 02/02/19 13:45 57 16 158/68 (98) 100 02/02/19 13:30 57 16 128/100 (109) 100 02/02/19 13:15 60 16 113/64 (80) 100 02/02/19 13:08 16 Mechanical Ventilator 30 02/02/19 13:02 88 22 30 02/02/19 13:00 61 16 117/71 (86) 100 02/02/19 12:45 61 16 117/71 (86) 100 02/02/19 12:37 16 Mechanical Ventilator 30 02/02/19 12:30 66 16 108/64 (79) 99 02/02/19 12:15 83 16 169/70 (103) 95 02/02/19 12:00 30 02/02/19 12:00 Mechanical Ventilator 02/02/19 12:00 98.2 72 16 105/68 (80) 100 02/02/19 12:00 16 02/02/19 11:52 84 16 115/74 (88) 100 02/02/19 11:45 99 17 174/138 (150) 100 02/02/19 11:45 30 02/02/19 11:35 85 02/02/19 11:30 87 17 160/74 (102) 97 02/02/19 11:21 87 17 160/74 (102) 97 02/02/19 11:15 89 19 160/74 (102) 41 02/02/19 11:05 30 02/02/19 11:02 91 19 30 02/02/19 11:00 89 20 120/70 (87) 83 02/02/19 11:00 20 Mechanical Ventilator 30 02/02/19 10:45 58 16 120/70 (87) 100 02/02/19 10:30 62 16 121/62 (81) 98 02/02/19 10:15 83 19 125/68 (87) 93 02/02/19 10:00 64 16 112/66 (81) 99 02/02/19 10:00 16 Mechanical Ventilator 30 02/02/19 09:50 17 Mechanical Ventilator 30 02/02/19 09:45 76 17 133/110 (118) 99 02/02/19 09:30 69 16 108/63 (78) 98 02/02/19 09:21 94 24 177/69 (105) 92 02/02/19 09:20 16 Mechanical Ventilator 30 02/02/19 09:15 77 16 177/69 (105) 97 02/02/19 09:00 95 20 177/69 (105) 95 02/02/19 09:00 19 Mechanical Ventilator 30 02/02/19 08:49 94 18 30 02/02/19 08:45 82 18 155/72 (99) 94 02/02/19 08:30 69 16 155/72 (99) 100 02/02/19 08:15 83 16 155/72 (99) 100 02/02/19 08:00 30 02/02/19 08:00 16 Mechanical Ventilator 30 02/02/19 08:00 98.5 53 16 127/60 (82) 100 02/02/19 08:00 Mechanical Ventilator 02/02/19 07:45 53 16 107/58 (74) 100 02/02/19 07:33 51 16 30 02/02/19 07:30 53 16 97/68 (78) 100 02/02/19 07:24 60 02/02/19 07:15 54 16 97/68 (78) 100 02/02/19 07:00 55 16 96/65 (75) 100 02/02/19 07:00 16 Mechanical Ventilator 30 02/02/19 06:30 52 16 110/64 (79) 100 02/02/19 06:15 52 16 108/62 (77) 100 02/02/19 06:00 15 Mechanical Ventilator 30 02/02/19 06:00 53 15 142/65 (90) 100 02/02/19 05:45 52 16 101/65 (77) 100 02/02/19 05:30 53 16 104/66 (79) 100 02/02/19 05:15 54 16 116/63 (80) 100 02/02/19 05:13 16 Mechanical Ventilator 30 02/02/19 05:01 79 16 30 02/02/19 05:00 16 Mechanical Ventilator 30 02/02/19 05:00 70 16 134/83 (100) 100 02/02/19 04:45 94 22 182/89 (120) 100 02/02/19 04:30 82 19 169/80 (109) 99 02/02/19 04:18 89 17 178/74 (108) 100 02/02/19 04:00 97.5 55 15 118/62 (80) 100 02/02/19 04:00 16 Mechanical Ventilator 30 02/02/19 04:00 30 02/02/19 04:00 Mechanical Ventilator 02/02/19 03:50 16 Mechanical Ventilator 30 02/02/19 03:45 58 16 126/61 (82) 100 02/02/19 03:40 16 Mechanical Ventilator 30 02/02/19 03:30 90 17 173/71 (105) 100 02/02/19 03:30 17 Mechanical Ventilator 30 02/02/19 03:20 16 Mechanical Ventilator 30 02/02/19 03:15 60 15 145/65 (91) 100 02/02/19 03:05 65 02/02/19 03:00 77 16 129/66 (87) 100 02/02/19 03:00 16 Mechanical Ventilator 30 02/02/19 02:59 78 16 138/68 (91) 100 02/02/19 02:47 100 19 30 02/02/19 02:30 58 16 112/63 (79) 100 02/02/19 02:00 61 16 117/58 (77) 100 02/02/19 02:00 16 Mechanical Ventilator 30 02/02/19 01:30 59 16 136/60 (85) 100 02/02/19 01:15 66 16 135/61 (85) 100 02/02/19 01:02 68 16 30 02/02/19 01:00 75 17 134/62 (86) 100 02/02/19 01:00 17 Mechanical Ventilator 30 02/02/19 00:30 68 16 129/68 (88) 100 02/02/19 00:15 63 16 127/62 (83) 100 02/02/19 00:00 30 8/17/19 00:00 Mechanical Ventilator 02/02/19 00:00 16 Mechanical Ventilator 30 02/02/19 00:00 98.0 71 16 124/67 (86) 100 02/01/19 23:45 101 20 171/75 (107) 100 02/01/19 23:09 103 02/01/19 23:00 58 18 156/79 (104) 100 02/01/19 23:00 18 Mechanical Ventilator 30 02/01/19 22:56 51 16 30 02/01/19 22:45 51 17 121/63 (82) 100 02/01/19 22:35 16 Mechanical Ventilator 30 02/01/19 22:30 50 16 118/63 (81) 100 02/01/19 22:30 16 Mechanical Ventilator 30 02/01/19 22:25 16 Mechanical Ventilator 30 02/01/19 22:22 16 Mechanical Ventilator 30 02/01/19 22:15 51 16 113/62 (79) 100 02/01/19 22:10 16 Mechanical Ventilator 30 02/01/19 22:00 52 16 130/65 (86) 100 02/01/19 22:00 16 Mechanical Ventilator 30 02/01/19 21:45 54 16 118/63 (81) 100 02/01/19 21:30 55 16 127/67 (87) 100 02/01/19 21:03 76 16 30 02/01/19 21:00 16 Mechanical Ventilator 30 02/01/19 21:00 81 16 135/66 (89) 100 02/01/19 20:45 67 16 150/74 (99) 100 02/01/19 20:30 61 16 134/70 (91) 100 02/01/19 20:15 75 16 126/66 (86) 100 02/01/19 20:00 Mechanical Ventilator 02/01/19 20:00 30 02/01/19 20:00 16 Mechanical Ventilator 30 02/01/19 20:00 97.8 97 17 176/76 (109) 86 02/01/19 19:55 16 Mechanical Ventilator 30 02/01/19 19:50 16 Mechanical Ventilator 30 02/01/19 19:45 16 Mechanical Ventilator 30 02/01/19 19:45 54 16 117/60 (79) 100 02/01/19 19:40 16 Mechanical Ventilator 30 02/01/19 19:30 52 13 113/57 (75) 100 Height (Feet): 5 Height (Inches): 10.00 Weight (Pounds): 158 General Appearance: WD/WN, no acute distress, cachetic HEENT: normocephalic, atraumatic, anicteric, mucous membranes moist, PERRL, supple, no JVD Respiratory/Chest: chest wall non-tender, lungs clear, normal breath sounds, no respiratory distress, no accessory muscle use Cardiovascular: normal peripheral pulses, normal rate, regular rhythm, no gallop/murmur, no JVD Abdomen: normal bowel sounds, soft, non tender, no organomegaly, non distended , no mass, no scars Genitourinary: normal external genitalia Extremities: no cyanosis, no clubbing Skin: no rash, no lesions, no ulcers Neurologic/Psychiatric: alert, responsive Lymphatic: no neck adenopathy, no groin adenopathy Musculoskeletal: normal muscle bulk, no effusion Laboratory Tests Test 02/02/19 04:45 02/02/19 11:35 White Blood Count 19.1 K/UL (4.8-10.8) #H Red Blood Count 3.77 M/UL (4.70-6.10) L Hemoglobin 11.4 G/DL (14.2-18.0) L Hematocrit 37.5 % (42.0-52.0) L Mean Corpuscular Volume 99 FL (80-99) Mean Corpuscular Hemoglobin 30.2 PG (27.0-31.0) Mean Corpuscular Hemoglobin Concent 30.4 G/DL (32.0-36.0) L Red Cell Distribution Width 15.3 % (11.6-14.8) H Platelet Count 119 K/UL (150-450) L Mean Platelet Volume 6.7 FL (6.5-10.1) Neutrophils (%) (Auto) % (45.0-75.0) Lymphocytes (%) (Auto) % (20.0-45.0) Monocytes (%) (Auto) % (1.0-10.0) Eosinophils (%) (Auto) % (0.0-3.0) Basophils (%) (Auto) % (0.0-2.0) Differential Total Cells Counted 100 Neutrophils % (Manual) 91 % (45-75) H Lymphocytes % (Manual) 4 % (20-45) L Monocytes % (Manual) 5 % (1-10) Eosinophils % (Manual) 0 % (0-3) Basophils % (Manual) 0 % (0-2) Band Neutrophils 0 % (0-8) Platelet Estimate Decreased L Platelet Morphology Normal Hypochromasia 1+ Anisocytosis 1+ Sodium Level 152 MMOL/L (136-145) H Potassium Level 4.2 MMOL/L (3.5-5.1) Chloride Level 117 MMOL/L (98-107) H Carbon Dioxide Level 30 MMOL/L (21-32) Anion Gap 5 mmol/L (5-15) Blood Urea Nitrogen 31 mg/dL (7-18) H Creatinine 0.8 MG/DL (0.55-1.30) Estimat Glomerular Filtration Rate mL/min (>60) Glucose Level 111 MG/DL (74-106) H Calcium Level 9.2 MG/DL (8.5-10.1) Arterial Blood pH 7.226 (7.350-7.450) Arterial Blood Partial Pressure CO2 72.6 mmHg (35.0-45.0) *H Arterial Blood Partial Pressure O2 55.2 mmHg (75.0-100.0) L Arterial Blood HCO3 29.4 mmol/L (22.0-26.0) H Arterial Blood Oxygen Saturation 82.1 % (95-100) *L Arterial Blood Base Excess 0.2 (-2-2) Delon Test Positive Current Medications Medications (Trade) Dose Ordered Sig/Brittani Route PRN Reason Start Time Stop Time Status Last Admin Dose Admin Acetaminophen (Tylenol) 650 mg Q4H PRN NG FOR MILD PAIN 01/26/19 10:15 02/25/19 10:14 Chlorhexidine Gluconate (Renetta-Hex 2%) 1 applic DAILY@2000 TOPIC 01/27/19 20:00 02/26/19 19:59 02/01/19 19:53 Dextrose (Dextrose 50%) 25 ml Q30M PRN IV Hypoglycemia 01/26/19 10:30 02/25/19 10:29 Dextrose (Dextrose 50%) 50 ml Q30M PRN IV Hypoglycemia 01/26/19 10:30 02/25/19 10:29 Dextrose/Sodium Chloride 1,000 ml @ 50 mls/hr Q20H IV 02/02/19 12:00 03/04/19 11:59 02/02/19 11:45 Docusate Sodium (Colace) 100 mg BID NG 02/02/19 18:00 03/04/19 17:59 Doxycycline Hyclate 100 mg/ Dextrose 110 ml @ 110 mls/hr Q12HR IV 01/26/19 11:00 02/04/19 23:59 02/02/19 09:50 Enoxaparin Sodium (Lovenox) 40 mg DAILY SUBQ 01/31/19 09:00 03/02/19 08:59 02/02/19 09:48 Fentanyl Citrate 2500 mcg/Sodium Chloride 250 ml @ 0 mls/hr Q24H IV 02/02/19 12:00 02/09/19 11:59 02/02/19 13:08 Insulin Aspart (NovoLOG) Q6HR SUBQ 01/26/19 12:00 02/25/19 11:59 02/02/19 18:24 Lorazepam (Ativan 2mg/ml 1ml) 1 mg Q4H PRN IV AGITATION / SEIZURE 01/30/19 15:00 02/06/19 14:59 02/01/19 00:18 Methylprednisolone Sodium Succinate (Solu-MEDROL) 60 mg EVERY 12 HOURS IVP 01/29/19 21:00 02/28/19 20:59 02/02/19 09:49 Pantoprazole (Protonix) 40 mg DAILY IVP 01/26/19 11:00 02/25/19 10:59 02/02/19 09:50 Piperacillin Sod/ Tazobactam Sod 3.375 gm/Sodium Chloride 110 ml @ 27.5 mls/hr EVERY 8 HOURS IVPB 01/27/19 20:00 02/06/19 23:59 02/02/19 14:46 Polyethylene Glycol (Miralax) 17 gm BEDTIME GT 02/01/19 21:00 03/03/19 20:59 02/01/19 20:34 Sodium Chloride 500 ml @ 998.89 mls/ hr Q4H PRN IVPB MAP<60 01/26/19 10:15 02/25/19 10:14 [place] Orlando M.D. Feb 02, 2019 19:16
--- NOTE | 2019-02-02 19:30 | NUR ---
HAND-OFF: Report given to GENNY Rojas.
--- NOTE | 2019-02-02 19:30 | NUR ---
NURSE NOTES: Received pt in no acute distress, asleep but arousable to name and light touch. Remains orally intubated and appears to be tolerating current vent settings. Saturating 98-100% on .30 fiO2. Secretions thick, tannish, chest sounds with scattered rhonchi. Continuos sedation with Fentanyl drip running at 250mcg/h for RASS -2 infusing via right IJ. NGT on Right nare in situ and TF with Vital AF running at 35ml/h with 0 residuals. Abd soft, still no BM. Bilat soft wrist restraints continues as pt tends to be impulsive and restless when fully awake. FC patent, UOP 40-50ml/h. Anterior shins with skin tears, covered with optifoam, ecchymosis on BUE present, otherwise intact. Will monitor VS and sedation status. Fall precautions in place.
--- NOTE | 2019-02-02 19:44 | NUR ---
RESPIRATORY NOTE: Received pt. on 840 vent. Vent settings are: A/C rate 16, Vt 500, FI02 30%, PEEP +5. No respiratory distress noted, pt. sP02 @ 100%. Vent plugged on red outlet. Will continue to monitor pt.
--- NOTE | 2019-02-02 19:53 | General Progress Note ---
Assessment/Plan Status: stable Assessment/Plan: s: Intubated. Vent setting reviewed O: Easily arousble, Not following the command PHYSICAL EXAMINATION: GENERAL: An elderly male, lying in bed, intubated on mechanical ventilation, not in acute distress. HEENT: Normocephalic and atraumatic. Pupils slightly responsive to light. Unable to assess oral mucosa with E-tube in place. NECK: Supple. No lymphadenopathy. CARDIOVASCULAR: He is tachycardic. S1, S2 normal. No murmur can be heard. LUNGS: Diminished breathing sounds at the bases. No wheezing or rhonchi. Normal breathing effort. Mechanically ventilated. ABDOMEN: Soft, nontender, and nondistended. Normal bowel sounds. No hepatosplenomegaly or ascites. No organomegaly. EXTREMITIES: No edema or cyanosis. labs: dated Jan 28 reviewed IMAGING: Chest x-ray dated February 01 is negative for any pneumothorax. Meds: reviewed and reconciled ASSESSMENT AND PLAN: 1. Vent dependent respiratory failure. 2. Chronic obstructive pulmonary disease, end-stage, oxygen-dependent. 3. Cardiopulmonary arrest, status post resuscitation x2. 4. Hypertension. 5. Abnormal blood sugar. 6. Anemia. 7. Abn Trop: likely secondary to #3 7. GI and DVT prophylaxis. PLAN OF CARE: Current Antibiotic management Notes from cardiology and ID reviewed Declining levels of troponin Worsening thrombocytopenia DC Heparin Restart Lovenox, will monitor plt count Weaning protocol , defer to pulmonary Worsening Sodium level Consult nephrology Subjective Allergies: Coded Allergies: No Known Allergies (Unverified , 06/05/18) Objective Last 24 Hour Vital Signs Date Time Temp Pulse Resp B/P (MAP) Pulse Ox O2 Delivery O2 Flow Rate FiO2 02/02/19 19:43 69 16 30 02/02/19 19:00 16 Mechanical Ventilator 30 02/02/19 18:30 80 16 94/66 (75) 99 02/02/19 18:00 55 16 98/64 (75) 100 02/02/19 18:00 16 Mechanical Ventilator 30 02/02/19 17:30 55 16 101/64 (76) 100 02/02/19 17:00 16 Mechanical Ventilator 30 02/02/19 17:00 98.3 56 16 100/64 (76) 100 02/02/19 16:40 55 16 30 02/02/19 16:30 54 16 94/64 (74) 100 02/02/19 16:15 55 16 94/68 (77) 100 02/02/19 16:00 56 16 93/63 (73) 100 02/02/19 16:00 30 02/02/19 16:00 Mechanical Ventilator 02/02/19 16:00 16 Mechanical Ventilator 30 02/02/19 15:45 58 15 100/66 (77) 99 02/02/19 15:30 56 16 100/66 (77) 100 02/02/19 15:18 56 02/02/19 15:15 57 16 107/70 (82) 100 02/02/19 15:00 16 Mechanical Ventilator 30 02/02/19 15:00 61 14 129/68 (88) 100 02/02/19 14:46 16 Mechanical Ventilator 02/02/19 14:45 78 16 132/67 (88) 100 02/02/19 14:42 108 17 30 02/02/19 14:30 95 18 188/69 (108) 100 02/02/19 14:15 73 17 181/69 (106) 93 02/02/19 14:00 16 Mechanical Ventilator 02/02/19 14:00 57 16 169/128 (142) 100 02/02/19 13:45 57 16 158/68 (98) 100 02/02/19 13:30 57 16 128/100 (109) 100 02/02/19 13:15 60 16 113/64 (80) 100 02/02/19 13:08 16 Mechanical Ventilator 30 02/02/19 13:02 88 22 30 02/02/19 13:00 61 16 117/71 (86) 100 02/02/19 12:45 61 16 117/71 (86) 100 02/02/19 12:37 16 Mechanical Ventilator 30 02/02/19 12:30 66 16 108/64 (79) 99 02/02/19 12:15 83 16 169/70 (103) 95 02/02/19 12:00 30 02/02/19 12:00 Mechanical Ventilator 02/02/19 12:00 98.2 72 16 105/68 (80) 100 02/02/19 12:00 16 02/02/19 11:52 84 16 115/74 (88) 100 02/02/19 11:45 99 17 174/138 (150) 100 02/02/19 11:45 30 02/02/19 11:35 85 02/02/19 11:30 87 17 160/74 (102) 97 02/02/19 11:21 87 17 160/74 (102) 97 02/02/19 11:15 89 19 160/74 (102) 41 02/02/19 11:05 30 02/02/19 11:02 91 19 30 02/02/19 11:00 89 20 120/70 (87) 83 02/02/19 11:00 20 Mechanical Ventilator 30 02/02/19 10:45 58 16 120/70 (87) 100 02/02/19 10:30 62 16 121/62 (81) 98 02/02/19 10:15 83 19 125/68 (87) 93 02/02/19 10:00 64 16 112/66 (81) 99 02/02/19 10:00 16 Mechanical Ventilator 30 02/02/19 09:50 17 Mechanical Ventilator 30 02/02/19 09:45 76 17 133/110 (118) 99 02/02/19 09:30 69 16 108/63 (78) 98 02/02/19 09:21 94 24 177/69 (105) 92 02/02/19 09:20 16 Mechanical Ventilator 30 02/02/19 09:15 77 16 177/69 (105) 97 02/02/19 09:00 95 20 177/69 (105) 95 02/02/19 09:00 19 Mechanical Ventilator 30 02/02/19 08:49 94 18 30 02/02/19 08:45 82 18 155/72 (99) 94 02/02/19 08:30 69 16 155/72 (99) 100 02/02/19 08:15 83 16 155/72 (99) 100 02/02/19 08:00 30 02/02/19 08:00 16 Mechanical Ventilator 30 02/02/19 08:00 98.5 53 16 127/60 (82) 100 02/02/19 08:00 Mechanical Ventilator 02/02/19 07:45 53 16 107/58 (74) 100 02/02/19 07:33 51 16 30 02/02/19 07:30 53 16 97/68 (78) 100 02/02/19 07:24 60 02/02/19 07:15 54 16 97/68 (78) 100 02/02/19 07:00 55 16 96/65 (75) 100 02/02/19 07:00 16 Mechanical Ventilator 30 02/02/19 06:30 52 16 110/64 (79) 100 02/02/19 06:15 52 16 108/62 (77) 100 02/02/19 06:00 15 Mechanical Ventilator 30 02/02/19 06:00 53 15 142/65 (90) 100 02/02/19 05:45 52 16 101/65 (77) 100 02/02/19 05:30 53 16 104/66 (79) 100 02/02/19 05:15 54 16 116/63 (80) 100 02/02/19 05:13 16 Mechanical Ventilator 30 02/02/19 05:01 79 16 30 02/02/19 05:00 16 Mechanical Ventilator 30 02/02/19 05:00 70 16 134/83 (100) 100 02/02/19 04:45 94 22 182/89 (120) 100 02/02/19 04:30 82 19 169/80 (109) 99 02/02/19 04:18 89 17 178/74 (108) 100 02/02/19 04:00 97.5 55 15 118/62 (80) 100 02/02/19 04:00 16 Mechanical Ventilator 30 02/02/19 04:00 30 02/02/19 04:00 Mechanical Ventilator 02/02/19 03:50 16 Mechanical Ventilator 30 02/02/19 03:45 58 16 126/61 (82) 100 02/02/19 03:40 16 Mechanical Ventilator 02/02/19 03:30 90 17 173/71 (105) 100 02/02/19 03:30 17 Mechanical Ventilator 30 02/02/19 03:20 16 Mechanical Ventilator 30 02/02/19 03:15 60 15 145/65 (91) 100 02/02/19 03:05 65 02/02/19 03:00 77 16 129/66 (87) 100 02/02/19 03:00 16 Mechanical Ventilator 30 02/02/19 02:59 78 16 138/68 (91) 100 02/02/19 02:47 100 19 30 02/02/19 02:30 58 16 112/63 (79) 100 02/02/19 02:00 61 16 117/58 (77) 100 02/02/19 02:00 16 Mechanical Ventilator 30 02/02/19 01:30 59 16 136/60 (85) 100 02/02/19 01:15 66 16 135/61 (85) 100 02/02/19 01:02 68 16 30 02/02/19 01:00 75 17 134/62 (86) 100 02/02/19 01:00 17 Mechanical Ventilator 30 02/02/19 00:30 68 16 129/68 (88) 100 02/02/19 00:15 63 16 127/62 (83) 100 02/02/19 00:00 30 02/02/19 00:00 Mechanical Ventilator 02/02/19 00:00 16 Mechanical Ventilator 30 02/02/19 00:00 98.0 71 16 124/67 (86) 100 02/01/19 23:45 101 20 171/75 (107) 100 02/01/19 23:09 103 02/01/19 23:00 58 18 156/79 (104) 100 02/01/19 23:00 18 Mechanical Ventilator 30 02/01/19 22:56 51 16 30 02/01/19 22:45 51 17 121/63 (82) 100 02/01/19 22:35 16 Mechanical Ventilator 30 02/01/19 22:30 50 16 118/63 (81) 100 02/01/19 22:30 16 Mechanical Ventilator 30 02/01/19 22:25 16 Mechanical Ventilator 30 02/01/19 22:22 16 Mechanical Ventilator 30 02/01/19 22:15 51 16 113/62 (79) 100 02/01/19 22:10 16 Mechanical Ventilator 30 02/01/19 22:00 52 16 130/65 (86) 100 02/01/19 22:00 16 Mechanical Ventilator 30 02/01/19 21:45 54 16 118/63 (81) 100 02/01/19 21:30 55 16 127/67 (87) 100 02/01/19 21:03 76 16 30 02/01/19 21:00 16 Mechanical Ventilator 30 02/01/19 21:00 81 16 135/66 (89) 100 02/01/19 20:45 67 16 150/74 (99) 100 02/01/19 20:30 61 16 134/70 (91) 100 02/01/19 20:15 75 16 126/66 (86) 100 02/01/19 20:00 Mechanical Ventilator 02/01/19 20:00 30 02/01/19 20:00 16 Mechanical Ventilator 30 02/01/19 20:00 97.8 97 17 176/76 (109) 86 02/01/19 19:55 16 Mechanical Ventilator 30 Intake and Output 02/01/19 02/02/19 18:59 06:59 Intake Total 1133.25 ml 1410.5 ml Output Total 680 ml 1090 ml Balance 453.25 ml 320.5 ml Intake Free Water 150 ml IV Total 913.25 ml 995.5 ml Tube Feeding 70 ml 315 ml Other 100 ml Output Urine Total 680 ml 1090 ml Laboratory Tests 02/02/19 04:45: White Blood Count 19.1#H, Red Blood Count 3.77L, Hemoglobin 11.4L, Hematocrit 37.5L, Mean Corpuscular Volume 99, Mean Corpuscular Hemoglobin 30.2, Mean Corpuscular Hemoglobin Concent 30.4L, Red Cell Distribution Width 15.3H, Platelet Count 119L, Mean Platelet Volume 6.7, Neutrophils (%) (Auto) , Lymphocytes (%) (Auto) , Monocytes (%) (Auto) , Eosinophils (%) (Auto) , Basophils (%) (Auto) , Differential Total Cells Counted 100, Neutrophils % ( Manual) 91H, Lymphocytes % (Manual) 4L, Monocytes % (Manual) 5, Eosinophils % ( Manual) 0, Basophils % (Manual) 0, Band Neutrophils 0, Platelet Estimate DecreasedL, Platelet Morphology Normal, Hypochromasia 1+, Anisocytosis 1+, Sodium Level 152H, Potassium Level 4.2, Chloride Level 117H, Carbon Dioxide Level 30, Anion Gap 5, Blood Urea Nitrogen 31H, Creatinine 0.8, Estimat Glomerular Filtration Rate , Glucose Level 111H, Calcium Level 9.2 02/02/19 11:35: Arterial Blood pH 7.226*L, Arterial Blood Partial Pressure CO2 72.6*H, Arterial Blood Partial Pressure O2 55.2L, Arterial Blood HCO3 29.4H, Arterial Blood Oxygen Saturation 82.1*L, Arterial Blood Base Excess 0.2, Delon Test Positive Height (Feet): 5 Height (Inches): 10.00 Weight (Pounds): 158 Brianne Henry MD Feb 02, 2019 19:53
[2019-02-02] MEDS: Miralax 17gm pkt GT SCH (20:43)
[2019-02-02] MEDS: Dyna-Hex 2% Top Sol 2oz TOPIC SCH (20:43)
[2019-02-02] MEDS: LORazepam Inj 2mg/ml 1ml IV PRN (21:31)
--- NOTE | 2019-02-02 21:31 | NUR ---
NURSE NOTES: Restless, agitated, keeps triggering high pressure alarms, pt biting down on the ETT. Attempting to get up. Ativan 1mg IVP given
--- NOTE | 2019-02-02 23:00 | NUR ---
NURSE NOTES: Pt calm, asleep. Fentanyl gtt decreased to 200mcg/h
[2019-02-03] VITALS (51 sets, daily range): BP systolic 83–160; BP diastolic 54–114
--- NOTE | 2019-02-03 | NUR ---
NURSE NOTES: Calm,asleep. BP 85/56. NS 500mls IV bolus given. Fentanyl gtt decreased to 100mcg/h
--- NOTE | 2019-02-03 02:00 | NUR ---
NURSE NOTES: Remains calm, asleep. BP 99/63. No distress.
[2019-02-03] MEDS: fentaNYL Citrate 2,500 MCG in NS 200 ML IV SCH ×2 (03:23→19:05)
--- NOTE | 2019-02-03 04:00 | NUR ---
NURSE NOTES: No BM. Complete bed bath done. Pt awake and restless, agitated. Oral care done, shaved as well. Afebrile. Fentanyl drip increased to 250mcg/h.
[2019-02-03] MEDS: D5 1/2NS 1,000 ML IV SCH (04:15)
--- NOTE | 2019-02-03 05:00 | NUR ---
NURSE NOTES: TF turned off. For weaning parameters today. Fentanyl gtt decreased to 200mcg/h. Pt calm, asleep
[2019-02-03] MEDS: NovoLOG Insulin Flexpen SUBQ SCH ×4 (05:33→23:21)
[2019-02-03] MEDS: Piperacillin/Tazobactam 3.375 GM in NS 110 ML IVPB SCH ×3 (05:33→21:10)
[2019-02-03 05:45] LABS: HEMOGLOBIN 10.1 G/DL (14.2-18.0); MEAN CORPUSCULAR VOLUME 98 FL (80-99); PLATELET COUNT 101 K/UL (150-450); RED BLOOD COUNT 3.35 M/UL (4.70-6.10); RED CELL DISTRIBUTION WIDTH 15.1 % (11.6-14.8); WHITE BLOOD COUNT 15.7 K/UL (4.8-10.8)
--- NOTE | 2019-02-03 06:00 | NUR ---
NURSE NOTES: Calm, asleep. Fentanyl gtt down to 100mcg/h. TF on hold. VSS
[2019-02-03 06:01] LABS: ANION GAP 2 mmol/L (5-15); BLOOD UREA NITROGEN 32 mg/dL (7-18); CALCIUM 8.8 MG/DL (8.5-10.1); CARBON DIOXIDE 33 MMOL/L (21-32); CHLORIDE 117 MMOL/L (98-107); CREATININE 0.9 MG/DL (0.55-1.30); SODIUM 152 MMOL/L (136-145)
--- NOTE | 2019-02-03 07:16 | NUR ---
HAND-OFF: Report given to Marty Zuleta RN.
--- NOTE | 2019-02-03 09:00 | NUR ---
NURSE NOTES: while awaiting for patient to begin weaning, he started to become restless in bed and sob with saturations around 88-90% fentanyl started at 10mcg/min per protocol and increase to rass scale of -2. currently patient is at rass of +2
--- NOTE | 2019-02-03 09:45 | NUR ---
RESPIRATORY NOTE: Weaning held off due to patient being agitated/restless per RN Johny.
[2019-02-03] MEDS: Doxycycline Hyclate 100 MG in D5W 110 ML IV SCH ×2 (09:59→21:10)
[2019-02-03] MEDS: Solu-MEDROL 125mg Inj IVP SCH ×2 (09:59→21:11)
[2019-02-03] MEDS: Pantoprazole Inj IVP SCH ×2 (09:59→21:11)
[2019-02-03] MEDS: Enoxaparin 40mg Inj SUBQ SCH (10:01)
--- NOTE | 2019-02-03 11:25 | NUR ---
NURSE NOTES: Patient finally achieved rass score of -2 with fentanyl drip at 250mcg/hr patient HR is 70-62 with BP of 108/62 patient remains calm and resting in bed, wrist restraints remains around patient hands
[2019-02-03] MEDS: Docusate 100mg tablet NG SCH ×2 (11:27→18:37)
--- NOTE | 2019-02-03 11:57 | Consultation ---
Consult Note Consult Note asked by Dr Henry to maci for electrolyte management astrid seen in ICU room D discussed with Johny ROYAL and talked to Nephew current conditions: 1. Vent dependent respiratory failure. 2. Chronic obstructive pulmonary disease, end-stage, oxygen-dependent. 3. Cardiopulmonary arrest, status post resuscitation x2. 4. Hypertension. 5. Abnormal blood sugar. 6. Anemia. 7. Abn Trop: likely secondary to #3 Assessment/Plan Pre renal Azotemia due to - Dehydration- - High Protein catabolic state as result of Doxy and steroids HyperNatremia due to free water deficit HypoAlbuminemia Sugg: D5W IV fluid Avoid Nephrotoxics Monitor lytes per consultants Felipe Salmon MD Feb 03, 2019 11:57
--- NOTE | 2019-02-03 13:03 | Infectious Diseases Prog Note ---
Assessment/Plan Problems: (1) Aspiration pneumonia Assessment & Plan: due to cardiac arrest, with enterobacter cloacea, continue zosyn empirically for 10 days . aspiration precaution . (2) Leukocytosis Assessment & Plan: partially due to steroids , with no evidence of sepsis, and negative blood culture x2 so far is negative , repeated CXR ruled out aspiration or new infiltrates , still concern about aspiration after two codes blue . sputum culture grew Enterobacter cloacae , continue zosyn for 10 days . taper steroids (3) Acute exacerbation of chronic obstructive pulmonary disease (COPD) Assessment & Plan: continue doxycycline for five days only , and nebulizer treatment as per pulmonary (4) Cardiac arrest Assessment & Plan: etiology ? cardiology eval to rule out cardiac sources and neurology eval to evaluate his brain condition and to rule out anoxic brain injury (5) Chronic hypercapnic respiratory failure Assessment & Plan: S/P cardiac arrest , S/P intubation, monitor in ICU, pulmonary is following Subjective ROS Limited/Unobtainable: Yes Allergies: Coded Allergies: No Known Allergies (Unverified , 06/05/18) Subjective He is still intubated on mechanical ventilation, awake and responsive today , still failing weaning trials , not febrile. Objective Vital Signs Last 24 Hour Vital Signs Date Time Temp Pulse Resp B/P (MAP) Pulse Ox O2 Delivery O2 Flow Rate FiO2 02/03/19 12:30 98.0 60 16 116/85 (95) 100 02/03/19 12:00 65 16 135/88 (104) 100 02/03/19 12:00 40 02/03/19 11:30 66 16 120/66 (84) 100 02/03/19 11:00 77 16 143/69 (93) 100 02/03/19 10:39 91 16 30 02/03/19 10:30 97 19 137/70 (92) 100 02/03/19 10:00 94 17 160/73 (102) 100 02/03/19 09:30 80 16 146/81 (102) 100 02/03/19 09:23 89 17 30 02/03/19 09:00 58 16 147/71 (96) 100 02/03/19 08:30 59 16 95/64 (74) 100 02/03/19 08:00 30 02/03/19 08:00 97.8 60 16 96/68 (77) 100 02/03/19 08:00 Mechanical Ventilator 02/03/19 08:00 57 02/03/19 07:30 58 16 92/60 (71) 100 02/03/19 07:05 59 16 30 02/03/19 07:00 60 16 93/62 (72) 100 02/03/19 06:30 61 16 88/65 (73) 100 02/03/19 06:00 58 17 98/71 (80) 100 02/03/19 06:00 22 Mechanical Ventilator 30 02/03/19 05:30 56 16 117/71 (86) 100 02/03/19 05:30 58 16 30 02/03/19 05:00 57 16 103/67 (79) 98 02/03/19 05:00 20 Mechanical Ventilator 30 02/03/19 04:30 64 16 124/75 (91) 98 02/03/19 04:00 30 02/03/19 04:00 22 Mechanical Ventilator 30 02/03/19 04:00 68 02/03/19 04:00 Mechanical Ventilator 02/03/19 04:00 97.7 68 16 101/63 (76) 02/03/19 03:30 85 17 109/71 (84) 97 02/03/19 03:23 16 Mechanical Ventilator 02/03/19 03:00 16 Mechanical Ventilator 30 02/03/19 03:00 57 16 95/66 (76) 100 02/03/19 03:00 60 16 30 02/03/19 02:30 57 16 95/60 (72) 100 02/03/19 02:00 57 16 99/63 (75) 100 02/03/19 02:00 16 Endotracheal Tube 30 02/03/19 01:33 56 16 30 02/03/19 01:30 54 16 107/67 (80) 100 02/03/19 01:15 57 16 94/54 (67) 100 02/03/19 01:00 57 16 86/62 (70) 100 02/03/19 01:00 16 Mechanical Ventilator 30 02/03/19 00:45 56 16 89/61 (70) 100 02/03/19 00:30 56 16 93/65 (74) 100 02/03/19 00:15 56 16 90/60 (70) 100 02/03/19 00:00 30 02/03/19 00:00 98.0 57 16 83/58 (66) 100 02/03/19 00:00 20 Mechanical Ventilator 30 02/03/19 00:00 Mechanical Ventilator 02/03/19 00:00 57 02/02/19 23:45 58 16 87/59 (68) 100 02/02/19 23:30 56 16 83/59 (67) 100 02/02/19 23:15 56 16 88/58 (68) 100 02/02/19 23:04 58 16 30 02/02/19 23:00 20 Mechanical Ventilator 30 02/02/19 23:00 58 16 85/56 (66) 100 02/02/19 22:30 57 16 87/57 (67) 100 02/02/19 22:00 22 Mechanical Ventilator 30 02/02/19 22:00 61 16 82/65 (71) 100 02/02/19 21:30 78 16 122/78 (93) 96 02/02/19 21:15 62 16 30 02/02/19 21:00 60 16 115/69 (84) 100 02/02/19 21:00 22 Mechanical Ventilator 30 02/02/19 20:30 76 17 176/78 (110) 97 02/02/19 20:00 30 02/02/19 20:00 60 02/02/19 20:00 Mechanical Ventilator 02/02/19 20:00 59 16 112/64 (80) 100 02/02/19 20:00 22 Mechanical Ventilator 30 02/02/19 19:43 69 16 30 02/02/19 19:30 97.9 57 16 117/67 (84) 100 02/02/19 19:00 16 Mechanical Ventilator 30 02/02/19 19:00 61 16 97/66 (76) 100 02/02/19 18:30 80 16 94/66 (75) 99 02/02/19 18:00 55 16 98/64 (75) 100 02/02/19 18:00 16 Mechanical Ventilator 30 02/02/19 17:30 55 16 101/64 (76) 100 02/02/19 17:00 16 Mechanical Ventilator 30 02/02/19 17:00 98.3 56 16 100/64 (76) 100 02/02/19 16:40 55 16 30 02/02/19 16:30 54 16 94/64 (74) 100 02/02/19 16:15 55 16 94/68 (77) 100 02/02/19 16:00 56 16 93/63 (73) 100 02/02/19 16:00 30 02/02/19 16:00 Mechanical Ventilator 02/02/19 16:00 16 Mechanical Ventilator 30 02/02/19 15:45 58 15 100/66 (77) 99 02/02/19 15:30 56 16 100/66 (77) 100 02/02/19 15:18 56 02/02/19 15:15 57 16 107/70 (82) 100 02/02/19 15:00 16 Mechanical Ventilator 30 02/02/19 15:00 61 14 129/68 (88) 100 02/02/19 14:46 16 Mechanical Ventilator 02/02/19 14:45 78 16 132/67 (88) 100 02/02/19 14:42 108 17 30 02/02/19 14:30 95 18 188/69 (108) 100 02/02/19 14:15 73 17 181/69 (106) 93 02/02/19 14:00 16 Mechanical Ventilator 02/02/19 14:00 57 16 169/128 (142) 100 02/02/19 13:45 57 16 158/68 (98) 100 02/02/19 13:30 57 16 128/100 (109) 100 02/02/19 13:15 60 16 113/64 (80) 100 02/02/19 13:08 16 Mechanical Ventilator 30 02/02/19 13:02 88 22 30 Height (Feet): 5 Height (Inches): 10.00 Weight (Pounds): 160 General Appearance: no acute distress, cachetic HEENT: normocephalic, atraumatic, anicteric, mucous membranes moist, PERRL, EOMI, pharynx normal, supple, no JVD Respiratory/Chest: chest wall non-tender, no respiratory distress, no accessory muscle use, decreased breath sounds, crackles/rales Cardiovascular: normal peripheral pulses, normal rate, regular rhythm, no gallop/murmur, no JVD Abdomen: normal bowel sounds, soft, non tender, no organomegaly, non distended , no mass, no scars Genitourinary: normal external genitalia Extremities: no cyanosis, no clubbing Skin: no rash, no lesions Lymphatic: no neck adenopathy, no groin adenopathy Musculoskeletal: normal muscle bulk, no effusion Laboratory Tests Test 02/03/19 05:23 White Blood Count 15.7 K/UL (4.8-10.8) H Red Blood Count 3.35 M/UL (4.70-6.10) L Hemoglobin 10.1 G/DL (14.2-18.0) L Hematocrit 33.0 % (42.0-52.0) L Mean Corpuscular Volume 98 FL (80-99) Mean Corpuscular Hemoglobin 30.2 PG (27.0-31.0) Mean Corpuscular Hemoglobin Concent 30.7 G/DL (32.0-36.0) L Red Cell Distribution Width 15.1 % (11.6-14.8) H Platelet Count 101 K/UL (150-450) L Mean Platelet Volume 7.8 FL (6.5-10.1) Neutrophils (%) (Auto) % (45.0-75.0) Lymphocytes (%) (Auto) % (20.0-45.0) Monocytes (%) (Auto) % (1.0-10.0) Eosinophils (%) (Auto) % (0.0-3.0) Basophils (%) (Auto) % (0.0-2.0) Differential Total Cells Counted 100 Neutrophils % (Manual) 93 % (45-75) H Lymphocytes % (Manual) 1 % (20-45) L Monocytes % (Manual) 6 % (1-10) Eosinophils % (Manual) 0 % (0-3) Basophils % (Manual) 0 % (0-2) Band Neutrophils 0 % (0-8) Platelet Estimate Decreased L Platelet Morphology Normal Hypochromasia 1+ Anisocytosis 1+ Sodium Level 152 MMOL/L (136-145) H Potassium Level 4.0 MMOL/L (3.5-5.1) Chloride Level 117 MMOL/L (98-107) H Carbon Dioxide Level 33 MMOL/L (21-32) H Anion Gap 2 mmol/L (5-15) L Blood Urea Nitrogen 32 mg/dL (7-18) H Creatinine 0.9 MG/DL (0.55-1.30) Estimat Glomerular Filtration Rate mL/min (>60) Glucose Level 132 MG/DL (74-106) H Calcium Level 8.8 MG/DL (8.5-10.1) Current Medications Medications (Trade) Dose Ordered Sig/Brittani Route PRN Reason Start Time Stop Time Status Last Admin Dose Admin Acetaminophen (Tylenol) 650 mg Q4H PRN NG FOR MILD PAIN 01/26/19 10:15 02/25/19 10:14 Chlorhexidine Gluconate (Renetta-Hex 2%) 1 applic DAILY@2000 TOPIC 01/27/19 20:00 02/26/19 19:59 02/02/19 20:43 Dextrose 1,000 ml @ 75 mls/hr [id number] IV 02/03/19 12:00 03/05/19 11:59 02/03/19 12:38 Dextrose (Dextrose 50%) 25 ml Q30M PRN IV Hypoglycemia 01/26/19 10:30 02/25/19 10:29 Dextrose (Dextrose 50%) 50 ml Q30M PRN IV Hypoglycemia 01/26/19 10:30 02/25/19 10:29 Docusate Sodium (Colace) 100 mg BID NG 02/02/19 18:00 03/04/19 17:59 02/03/19 11:27 Doxycycline Hyclate 100 mg/ Dextrose 110 ml @ 110 mls/hr Q12HR IV 01/26/19 11:00 02/04/19 23:59 02/03/19 09:59 Enoxaparin Sodium (Lovenox) 40 mg DAILY SUBQ 01/31/19 09:00 03/02/19 08:59 02/03/19 10:01 Fentanyl Citrate 2500 mcg/Sodium Chloride 250 ml @ 0 mls/hr Q24H IV 02/02/19 12:00 02/09/19 11:59 02/03/19 03:23 Insulin Aspart (NovoLOG) Q6HR SUBQ 01/26/19 12:00 02/25/19 11:59 02/03/19 12:40 Lorazepam (Ativan 2mg/ml 1ml) 1 mg Q4H PRN IV AGITATION / SEIZURE 01/30/19 15:00 02/06/19 14:59 02/02/19 21:31 Methylprednisolone Sodium Succinate (Solu-MEDROL) 60 mg EVERY 12 HOURS IVP 01/29/19 21:00 02/28/19 20:59 02/03/19 09:59 Pantoprazole (Protonix) 40 mg Q12HR IVP 02/03/19 21:00 02/25/19 10:59 Piperacillin Sod/ Tazobactam Sod 3.375 gm/Sodium Chloride 110 ml @ 27.5 mls/hr EVERY 8 HOURS IVPB 01/27/19 20:00 02/06/19 23:59 02/03/19 05:33 Polyethylene Glycol (Miralax) 17 gm BEDTIME GT 02/01/19 21:00 03/03/19 20:59 02/02/19 20:43 [place] Orlando M.D. Feb 03, 2019 13:03
--- NOTE | 2019-02-03 14:30 | NUR ---
NURSE NOTES: Dr. White assessing patient at the bedside and updated on patient respiratory status, patient was unable to wean due to becoming restless and agitated, has to be placed back on fentanyl drip.
--- NOTE | 2019-02-03 14:48 | Pulmonolgy Critical Care Note ---
Critical Care - Asmt/Plan Assessment/Plan: Pulmonary Critical Care Progress Note HPI Patient is a 73 year olf man with previous history of COPD, CHF, HTN, DM admitted with extreme respiratory distress, intubated in the ED, subsequent Cardiac Arrest. Noted to have hypercapneic respiratory failure. Interactive today, improved ventilator requirements, did not tolerate weaning today - high RR/agitation CT Head negative Allergies: No Known Allergies Past Medical History: COPD/Asthma, CHF, Hypertension, DM All Other Systems: limited Physical Exam Vital signs noted General Appearance: sedated on ventilator Head: normocephalic, atraumatic Eyes: bilateral eye PERRL, bilateral eye EOMI ENT: moist mm, no LN Neck: supple Respiratory: generally reduced BS, occasional wheeze Cardiovascular: tachycardia, HS1, HS2, RRR Gastrointestinal: non tender, soft Musculoskeletal: normal inspection Neurologic: sedated on ventilator Skin: no rash, palpation normal Impression: COPD exacerbation Hypercapneic respiratory failure S/p cardiac arrest in the ED CHF HTN Diabetes Plan Wean as tolerated Adjust FIO2 for sats 90-94% HHN Q4 IV Solumedrol Sedation PRN Sz management Monitor labs PPX IV Doxycycline DNR status Labs Test 01/26/19 05:45 White Blood Count 9.6 K/UL (4.8-10.8) Red Blood Count 4.57 M/UL (4.70-6.10) Hemoglobin 13.5 G/DL (14.2-18.0) Hematocrit 46.0 % (42.0-52.0) Mean Corpuscular Volume 101 FL (80-99) Mean Corpuscular Hemoglobin 29.6 PG (27.0-31.0) Mean Corpuscular Hemoglobin Concent 29.4 G/DL (32.0-36.0) Red Cell Distribution Width 15.2 % (11.6-14.8) Platelet Count 181 K/UL (150-450) Mean Platelet Volume 7.5 FL (6.5-10.1) Neutrophils (%) (Auto) 49.7 % (45.0-75.0) Lymphocytes (%) (Auto) 33.3 % (20.0-45.0) Monocytes (%) (Auto) 8.2 % (1.0-10.0) Eosinophils (%) (Auto) 8.2 % (0.0-3.0) Basophils (%) (Auto) 0.7 % (0.0-2.0) Lactic Acid Level 0.80 mmol/L (0.4-2.0) Chest X-Ray: No consolidation, no effusion, ETT tube 7cm, RIJ line good position Critical Care - Objective Last 24 Hour Vital Signs Date Time Temp Pulse Resp B/P (MAP) Pulse Ox O2 Delivery O2 Flow Rate FiO2 02/03/19 14:00 58 16 96/68 (77) 100 02/03/19 13:39 91 16 30 02/03/19 13:30 59 16 98/63 (75) 100 02/03/19 13:00 60 16 108/70 (83) 100 02/03/19 12:30 98.0 60 16 116/85 (95) 100 02/03/19 12:00 65 16 135/88 (104) 100 02/03/19 12:00 40 02/03/19 11:30 66 16 120/66 (84) 100 02/03/19 11:00 77 16 143/69 (93) 100 02/03/19 10:39 91 16 30 02/03/19 10:30 97 19 137/70 (92) 100 02/03/19 10:00 94 17 160/73 (102) 100 02/03/19 09:30 80 16 146/81 (102) 100 02/03/19 09:23 89 17 30 02/03/19 09:00 58 16 147/71 (96) 100 02/03/19 08:30 59 16 95/64 (74) 100 02/03/19 08:00 30 02/03/19 08:00 97.8 60 16 96/68 (77) 100 02/03/19 08:00 Mechanical Ventilator 02/03/19 08:00 57 02/03/19 07:30 58 16 92/60 (71) 100 02/03/19 07:05 59 16 30 02/03/19 07:00 60 16 93/62 (72) 100 02/03/19 06:30 61 16 88/65 (73) 100 02/03/19 06:00 58 17 98/71 (80) 100 02/03/19 06:00 22 Mechanical Ventilator 30 02/03/19 05:30 56 16 117/71 (86) 100 02/03/19 05:30 58 16 30 02/03/19 05:00 57 16 103/67 (79) 98 02/03/19 05:00 20 Mechanical Ventilator 30 02/03/19 04:30 64 16 124/75 (91) 98 02/03/19 04:00 30 02/03/19 04:00 22 Mechanical Ventilator 30 02/03/19 04:00 68 02/03/19 04:00 Mechanical Ventilator 02/03/19 04:00 97.7 68 16 101/63 (76) 02/03/19 03:30 85 17 109/71 (84) 97 02/03/19 03:23 16 Mechanical Ventilator 30 02/03/19 03:00 16 Mechanical Ventilator 30 02/03/19 03:00 57 16 95/66 (76) 100 02/03/19 03:00 60 16 30 02/03/19 02:30 57 16 95/60 (72) 100 02/03/19 02:00 57 16 99/63 (75) 100 02/03/19 02:00 16 Endotracheal Tube 02/03/19 01:33 56 16 30 02/03/19 01:30 54 16 107/67 (80) 100 02/03/19 01:15 57 16 94/54 (67) 100 02/03/19 01:00 57 16 86/62 (70) 100 02/03/19 01:00 16 Mechanical Ventilator 30 02/03/19 00:45 56 16 89/61 (70) 100 02/03/19 00:30 56 16 93/65 (74) 100 02/03/19 00:15 56 16 90/60 (70) 100 02/03/19 00:00 30 02/03/19 00:00 98.0 57 16 83/58 (66) 100 02/03/19 00:00 20 Mechanical Ventilator 02/03/19 00:00 Mechanical Ventilator 02/03/19 00:00 57 02/02/19 23:45 58 16 87/59 (68) 100 02/02/19 23:30 56 16 83/59 (67) 100 02/02/19 23:15 56 16 88/58 (68) 100 02/02/19 23:04 58 16 30 02/02/19 23:00 20 Mechanical Ventilator 30 02/02/19 23:00 58 16 85/56 (66) 100 02/02/19 22:30 57 16 87/57 (67) 100 02/02/19 22:00 22 Mechanical Ventilator 30 02/02/19 22:00 61 16 82/65 (71) 100 02/02/19 21:30 78 16 122/78 (93) 96 02/02/19 21:15 62 16 30 02/02/19 21:00 60 16 115/69 (84) 100 02/02/19 21:00 22 Mechanical Ventilator 30 02/02/19 20:30 76 17 176/78 (110) 97 02/02/19 20:00 30 02/02/19 20:00 60 02/02/19 20:00 Mechanical Ventilator 02/02/19 20:00 59 16 112/64 (80) 100 02/02/19 20:00 22 Mechanical Ventilator 30 02/02/19 19:43 69 16 30 02/02/19 19:30 97.9 57 16 117/67 (84) 100 02/02/19 19:00 16 Mechanical Ventilator 30 02/02/19 19:00 61 16 97/66 (76) 100 02/02/19 18:30 80 16 94/66 (75) 99 02/02/19 18:00 55 16 98/64 (75) 100 02/02/19 18:00 16 Mechanical Ventilator 30 02/02/19 17:30 55 16 101/64 (76) 100 02/02/19 17:00 16 Mechanical Ventilator 30 02/02/19 17:00 98.3 56 16 100/64 (76) 100 02/02/19 16:40 55 16 30 02/02/19 16:30 54 16 94/64 (74) 100 02/02/19 16:15 55 16 94/68 (77) 100 02/02/19 16:00 56 16 93/63 (73) 100 02/02/19 16:00 30 02/02/19 16:00 Mechanical Ventilator 02/02/19 16:00 16 Mechanical Ventilator 30 02/02/19 15:45 58 15 100/66 (77) 99 02/02/19 15:30 56 16 100/66 (77) 100 02/02/19 15:18 56 02/02/19 15:15 57 16 107/70 (82) 100 02/02/19 15:00 16 Mechanical Ventilator 30 02/02/19 15:00 61 14 129/68 (88) 100 Accucheck: 112 Critical Care - Subjective ROS Limited/Unobtainable: No FI02: 30 Vent Support Breath Rate: 16 Vent Support Mode: AC Vent Tidal Volume: 500 Sputum Amount: Small PEEP: 5.0 PIP: 37 Tube Feeding Amount: 45 I&O: Intake and Output 02/02/19 02/03/19 19:00 07:00 Intake Total 1195.0 ml 2010.0 ml Output Total 1085 ml 520 ml Balance 110.0 ml 1490.0 ml IV Total 1055.0 ml 1505.0 ml Tube Feeding 140 ml 385 ml Other 120 ml Output Urine Total 1085 ml 520 ml ET-Tube: 8.0 ET Position: 25 Johny White MD Feb 03, 2019 14:48
--- NOTE | 2019-02-03 16:00 | NUR ---
NURSE NOTES: Patient repositioned and oral care provided, patient sedated at 200mcg/hr with fentanyl drip. remains at rass score of -2 with opening of eyes and patient moving arms with a lght pinch over the hand tube feeding remains at 45ml/hr with no residual noted.
[2019-02-03 16:17] LABS: APPEARANCE,URINE CLEAR; BILIRUBIN, URINE NEGATIVE (NEGATIVE); COLOR,URINE PALE YELLOW; GLUCOSE, URINE (UA) NEGATIVE (NEGATIVE); KETONES,URINE NEGATIVE (NEGATIVE); LEUKOCYTE ESTERASE ,URINE NEGATIVE (NEGATIVE); NITRITE,URINE NEGATIVE (NEGATIVE); PH,URINE 5 (4.5-8.0); PROTEIN,URINE 2+ (NEGATIVE); UROBILINOGEN,URINE NORMAL MG/DL (0.0-1.0)
[2019-02-03] MEDS ORDERED: NS 275ml ONE (16:26)
[2019-02-03] MEDS ORDERED: Tubing IV Secondary IV ONE (16:26)
[2019-02-03] MEDS ORDERED: D5 1/2NS 1000ml IV ONE (16:26)
[2019-02-03] MEDS ORDERED: NS 500ML ONE (16:26)
--- NOTE | 2019-02-03 18:00 | NUR ---
NURSE NOTES: patient novolog and docusate medication given, urine output remains within 30ml/hr, remains tolerating tube feeding with no residual noted,
--- NOTE | 2019-02-03 20:10 | NUR ---
NURSE NOTES: Received patient from GENNY Mcclain. Patient is stable and arouse to touch. ET 8, 25cm at lip line, vent setting of AC:16, TV:500, PEEP:5, FiO2:40% and vital signs stable. On NGT feeding os Vital AF 1.2 @ 55ml/hour. Will continue plan of care.
[2019-02-03] MEDS: Dyna-Hex 2% Top Sol 2oz TOPIC SCH (20:22)
[2019-02-03] MEDS: Miralax 17gm pkt GT SCH (21:10)
--- NOTE | 2019-02-03 22:00 | NUR ---
NURSE NOTES: Patient is stable, vital signs are stable. Patient is arouse to touch. Will continue plan of care.
--- NOTE | 2019-02-03 22:43 | Cardiology Progress Note ---
Assessment/Plan Assessment/Plan 1. Cardiopulmonary arrest due to anoxia, 2D echo reveals normal LVEF. 2. Non-STEMI, conservative management as he is DNR. 3. Moderate aortic regurgitation. 4. Acute respiratory failure, intubated, failed weaning process. Subjective Subjective Sinus rhythm at rate of 74. Intubated with FiO2 of 30%. Objective Last 24 Hour Vital Signs Date Time Temp Pulse Resp B/P (MAP) Pulse Ox O2 Delivery O2 Flow Rate FiO2 02/03/19 21:29 74 16 30 02/03/19 20:00 40 02/03/19 20:00 Mechanical Ventilator 02/03/19 20:00 62 02/03/19 19:05 77 16 30 02/03/19 19:05 16 Mechanical Ventilator 40 02/03/19 19:00 16 Mechanical Ventilator 40 02/03/19 18:30 54 16 105/64 (78) 100 02/03/19 18:00 16 Mechanical Ventilator 40 02/03/19 18:00 54 16 107/68 (81) 100 02/03/19 17:30 55 16 99/64 (76) 100 02/03/19 17:15 53 16 30 02/03/19 17:00 16 Mechanical Ventilator 40 02/03/19 17:00 55 16 116/63 (80) 100 02/03/19 16:30 53 16 96/68 (77) 100 02/03/19 16:00 53 02/03/19 16:00 16 Mechanical Ventilator 40 02/03/19 16:00 40 02/03/19 16:00 Mechanical Ventilator 02/03/19 16:00 99.0 53 16 105/67 (80) 100 02/03/19 15:33 59 16 30 02/03/19 15:30 56 16 106/72 (83) 100 02/03/19 15:00 16 Mechanical Ventilator 40 02/03/19 15:00 60 16 107/62 (77) 100 02/03/19 14:50 16 Mechanical Ventilator 40 02/03/19 14:45 16 Mechanical Ventilator 40 02/03/19 14:40 16 Mechanical Ventilator 40 02/03/19 14:35 16 Mechanical Ventilator 40 02/03/19 14:30 Mechanical Ventilator 40 02/03/19 14:30 58 16 85/66 (72) 100 02/03/19 14:00 58 16 96/68 (77) 100 02/03/19 14:00 16 Mechanical Ventilator 40 02/03/19 13:39 91 16 30 02/03/19 13:30 59 16 98/63 (75) 100 02/03/19 13:00 60 16 108/70 (83) 100 02/03/19 13:00 16 Mechanical Ventilator 40 02/03/19 12:30 98.0 60 16 116/85 (95) 100 02/03/19 12:00 65 16 135/88 (104) 100 02/03/19 12:00 Mechanical Ventilator 02/03/19 12:00 16 Mechanical Ventilator 40 02/03/19 12:00 68 02/03/19 12:00 40 02/03/19 11:30 66 16 120/66 (84) 100 02/03/19 11:00 16 Mechanical Ventilator 40 02/03/19 11:00 77 16 143/69 (93) 100 02/03/19 10:55 16 Mechanical Ventilator 40 02/03/19 10:50 16 Mechanical Ventilator 40 02/03/19 10:45 18 Mechanical Ventilator 40 02/03/19 10:40 18 Mechanical Ventilator 40 02/03/19 10:39 91 16 30 02/03/19 10:35 19 Mechanical Ventilator 40 02/03/19 10:30 20 Mechanical Ventilator 40 02/03/19 10:30 97 19 137/70 (92) 100 02/03/19 10:25 21 Mechanical Ventilator 40 02/03/19 10:20 22 Mechanical Ventilator 40 02/03/19 10:15 22 Mechanical Ventilator 40 02/03/19 10:10 22 Mechanical Ventilator 40 02/03/19 10:05 24 Mechanical Ventilator 40 02/03/19 10:00 94 17 160/73 (102) 100 02/03/19 10:00 24 Mechanical Ventilator 40 02/03/19 09:59 24 Mechanical Ventilator 40 02/03/19 09:55 24 Mechanical Ventilator 40 02/03/19 09:50 25 Mechanical Ventilator 40 02/03/19 09:45 25 Mechanical Ventilator 40 02/03/19 09:40 25 Mechanical Ventilator 40 02/03/19 09:35 26 Mechanical Ventilator 40 02/03/19 09:30 80 16 146/81 (102) 100 02/03/19 09:30 24 Mechanical Ventilator 40 02/03/19 09:25 27 Mechanical Ventilator 50 02/03/19 09:23 89 17 30 8/18/19 09:20 27 Mechanical Ventilator 50 02/03/19 09:15 28 Mechanical Ventilator 50 02/03/19 09:10 28 Mechanical Ventilator 50 02/03/19 09:05 25 Mechanical Ventilator 50 02/03/19 09:00 58 16 147/71 (96) 100 02/03/19 09:00 25 Mechanical Ventilator 50 02/03/19 08:30 59 16 95/64 (74) 100 02/03/19 08:00 30 02/03/19 08:00 97.8 60 16 96/68 (77) 100 02/03/19 08:00 Mechanical Ventilator 02/03/19 08:00 57 02/03/19 07:30 58 16 92/60 (71) 100 02/03/19 07:05 59 16 30 02/03/19 07:00 60 16 93/62 (72) 100 02/03/19 06:30 61 16 88/65 (73) 100 02/03/19 06:00 58 17 98/71 (80) 100 02/03/19 06:00 22 Mechanical Ventilator 30 02/03/19 05:30 56 16 117/71 (86) 100 02/03/19 05:30 58 16 30 02/03/19 05:00 57 16 103/67 (79) 98 02/03/19 05:00 20 Mechanical Ventilator 30 02/03/19 04:30 64 16 124/75 (91) 98 02/03/19 04:00 30 02/03/19 04:00 22 Mechanical Ventilator 30 02/03/19 04:00 68 02/03/19 04:00 Mechanical Ventilator 02/03/19 04:00 97.7 68 16 101/63 (76) 02/03/19 03:30 85 17 109/71 (84) 97 02/03/19 03:23 16 Mechanical Ventilator 30 02/03/19 03:00 16 Mechanical Ventilator 30 02/03/19 03:00 57 16 95/66 (76) 100 02/03/19 03:00 60 16 30 02/03/19 02:30 57 16 95/60 (72) 100 02/03/19 02:00 57 16 99/63 (75) 100 02/03/19 02:00 16 Endotracheal Tube 30 02/03/19 01:33 56 16 30 02/03/19 01:30 54 16 107/67 (80) 100 02/03/19 01:15 57 16 94/54 (67) 100 02/03/19 01:00 57 16 86/62 (70) 100 02/03/19 01:00 16 Mechanical Ventilator 30 02/03/19 00:45 56 16 89/61 (70) 100 02/03/19 00:30 56 16 93/65 (74) 100 02/03/19 00:15 56 16 90/60 (70) 100 02/03/19 00:00 30 02/03/19 00:00 98.0 57 16 83/58 (66) 100 02/03/19 00:00 20 Mechanical Ventilator 30 02/03/19 00:00 Mechanical Ventilator 02/03/19 00:00 57 02/02/19 23:45 58 16 87/59 (68) 100 02/02/19 23:30 56 16 83/59 (67) 100 02/02/19 23:15 56 16 88/58 (68) 100 02/02/19 23:04 58 16 30 02/02/19 23:00 20 Mechanical Ventilator 30 02/02/19 23:00 58 16 85/56 (66) 100 Intake and Output 02/02/19 02/03/19 18:59 06:59 Intake Total 1185.5 ml 2087.5 ml Output Total 1205 ml 490 ml Balance -19.5 ml 1597.5 ml IV Total 1080.5 ml 1547.5 ml Tube Feeding 105 ml 420 ml Other 120 ml Output Urine Total 1205 ml 490 ml 2D Echo: LVEF 55%, moderate AR Laboratory Tests Test 02/03/19 05:23 02/03/19 14:30 White Blood Count 15.7 K/UL (4.8-10.8) H Red Blood Count 3.35 M/UL (4.70-6.10) L Hemoglobin 10.1 G/DL (14.2-18.0) L Hematocrit 33.0 % (42.0-52.0) L Mean Corpuscular Volume 98 FL (80-99) Mean Corpuscular Hemoglobin 30.2 PG (27.0-31.0) Mean Corpuscular Hemoglobin Concent 30.7 G/DL (32.0-36.0) L Red Cell Distribution Width 15.1 % (11.6-14.8) H Platelet Count 101 K/UL (150-450) L Mean Platelet Volume 7.8 FL (6.5-10.1) Neutrophils (%) (Auto) % (45.0-75.0) Lymphocytes (%) (Auto) % (20.0-45.0) Monocytes (%) (Auto) % (1.0-10.0) Eosinophils (%) (Auto) % (0.0-3.0) Basophils (%) (Auto) % (0.0-2.0) Differential Total Cells Counted 100 Neutrophils % (Manual) 93 % (45-75) H Lymphocytes % (Manual) 1 % (20-45) L Monocytes % (Manual) 6 % (1-10) Eosinophils % (Manual) 0 % (0-3) Basophils % (Manual) 0 % (0-2) Band Neutrophils 0 % (0-8) Platelet Estimate Decreased L Platelet Morphology Normal Hypochromasia 1+ Anisocytosis 1+ Sodium Level 152 MMOL/L (136-145) H Potassium Level 4.0 MMOL/L (3.5-5.1) Chloride Level 117 MMOL/L (98-107) H Carbon Dioxide Level 33 MMOL/L (21-32) H Anion Gap 2 mmol/L (5-15) L Blood Urea Nitrogen 32 mg/dL (7-18) H Creatinine 0.9 MG/DL (0.55-1.30) Estimat Glomerular Filtration Rate mL/min (>60) Glucose Level 132 MG/DL (74-106) H Calcium Level 8.8 MG/DL (8.5-10.1) Urine Color Pale yellow Urine Appearance Clear Urine pH 5 (4.5-8.0) Urine Specific [place] 1.020 (1.005-1.035) Urine Protein 2+ (NEGATIVE) H Urine Glucose (UA) Negative (NEGATIVE) Urine Ketones Negative (NEGATIVE) Urine Blood Negative (NEGATIVE) Urine Nitrite Negative (NEGATIVE) Urine Bilirubin Negative (NEGATIVE) Urine Urobilinogen Normal MG/DL (0.0-1.0) Urine Leukocyte Esterase Negative (NEGATIVE) Urine RBC 2-4 /HPF (0 - 0) H Urine WBC 0-2 /HPF (0 - 0) Urine Squamous Epithelial Cells None /LPF (NONE/OCC) Urine Calcium Oxalate Crystals Moderate /LPF (NONE) Urine Bacteria Occasional /HPF (NONE) Urine Mucus Few /LPF (NONE/OCC) H Urine Random Sodium 46 mmol/L (20-110) Objective HEENT: Atraumatic, arousable, orally intubated, conjunctival pallor. NECK: Cannot assess JVD, no carotid bruit. LUNGS: Bilateral breath sounds. Few rhonchi. No wheezing. CARDIAC: Regular rhythm and rate. Normal S1 and S2. No murmurs, gallops or rubs. ABDOMEN: Soft, non-distended, + BS. EXTREMITIES: No edema, clubbing or cyanosis. Lv Zuniga MD Feb 03, 2019 22:43
[2019-02-04] VITALS (55 sets, daily range): BP systolic 91–219; BP diastolic 52–160
--- NOTE | 2019-02-04 | NUR ---
NURSE NOTES: Patient is very agitated. Fentanyl increased from 18ml/hr to 20ml/hr. Will continue to monitor. Bing signs are stable.
--- NOTE | 2019-02-04 02:00 | NUR ---
NURSE NOTES: Patient is now resting comfortably. Shows no agitation. Bing signs are stable. Will continue plan of care.
--- NOTE | 2019-02-04 04:00 | NUR ---
NURSE NOTES: Bed bath and linen change provided. 1 BM noted, stool sample collect for OB stool testing. Will continue plan of care.
[2019-02-04 04:47] LABS: HEMATOCRIT 35.3 % (42.0-52.0); HEMOGLOBIN 10.9 G/DL (14.2-18.0); MEAN CORPUSCULAR VOLUME 97 FL (80-99); PLATELET COUNT 133 K/UL (150-450); RED BLOOD COUNT 3.63 M/UL (4.70-6.10); RED CELL DISTRIBUTION WIDTH 14.9 % (11.6-14.8); WHITE BLOOD COUNT 19.6 K/UL (4.8-10.8)
[2019-02-04 05:02] LABS: AMMONIA 14 umol/L (11-32)
[2019-02-04 05:29] LABS: ALANINE AMINOTRANSFERASE 56 U/L (12-78); ALBUMIN 2.6 G/DL (3.4-5.0); ALBUMIN/GLOBULIN RATIO 0.8 (1.0-2.7); ALKALINE PHOSPHATASE 50 U/L (46-116); ANION GAP 3 mmol/L (5-15); ASPARTATE AMINO TRANSFERASE 21 U/L (15-37); BILIRUBIN,TOTAL 0.7 MG/DL (0.2-1.0); BLOOD UREA NITROGEN 32 mg/dL (7-18); CALCIUM 8.7 MG/DL (8.5-10.1); CARBON DIOXIDE 32 MMOL/L (21-32); CHLORIDE 111 MMOL/L (98-107); CHOLESTEROL 239 MG/DL (< 200); CREATINE KINASE 170 U/L (26-308); CREATININE 0.8 MG/DL (0.55-1.30); FERRITIN 293 NG/ML (8-388); GAMMA GLUTAMYL TRANSPEPTIDASE 36 U/L (5-85); HDL CHOLESTEROL 74 MG/DL (40-60); PHOSPHORUS 3.7 MG/DL (2.5-4.9); POTASSIUM 3.7 MMOL/L (3.5-5.1); SODIUM 146 MMOL/L (136-145); TRIGLYCERIDES 92 MG/DL (30-150)
[2019-02-04 05:41] LABS: % IRON SATURATION 31 % (15-50); IRON 47 ug/dL (50-175); TOTAL IRON BINDING CAPACITY 152 ug/dL (250-450)
[2019-02-04] MEDS: Piperacillin/Tazobactam 3.375 GM in NS 110 ML IVPB SCH ×3 (05:59→22:17)
[2019-02-04] MEDS: NovoLOG Insulin Flexpen SUBQ SCH ×4 (06:00→23:33)
--- NOTE | 2019-02-04 06:00 | NUR ---
NURSE NOTES: Patient shows less agitation. Bite block kept in place to prevent biting. Patient turned and repositioned. Passive ROM provided. Will continue plan of care.
--- NOTE | 2019-02-04 07:16 | NUR ---
RESPIRATORY NOTE: received pt orally intubated with ETT 8.0, placed 25cm at the lip; secured via anchor fast. pt has OPA in place due to biting or prevention of biting on ett. pt in no apparent resp distress at this time. will attemp to wean later this morning. ambu bag at bedside and will cont to monitor.
--- NOTE | 2019-02-04 07:29 | NUR ---
HAND-OFF: Report given to GENNY Paul.
--- NOTE | 2019-02-04 07:30 | NUR ---
NURSE NOTES: Received patient from GENNY Barraza. Patient witnessed lying in bed in semi-fowlers position with eyes closed. Patient showing no sign of acute distress. Patient on Fentanyl drip at this time with a RASS score of -1. Patient arousable to voice and opens eyes spontaneously but is not attempting to fight against the ventilator and is not restless. Blood pressure 153/67, temp 97.7, HR 77 in sinus rhythm, RR 16, SpO2 100% on mechanical ventilator with setting of AC 16, tidal volume 500, FiO2 40%, and PEEP 5. Patient tolerating setting with no sign of distress at this time. Patient has failed weaning trial for the past 2 days. Patient has an NGT of the right nares that is patent, asymptomatic, and verified with auscultation and previously verified with abdominal x-ray. Patient has tube feeding vital AF that is running at 55mL/hr at this time. Patient tolerating feeding with no residual at this time. Patient has multiple skin tears and pitting edema +2 on bilateral upper and lower extremities. Patient has right internal jugular triple lumen catheter that is patent, asymptomatic, and dressing changed on February 01. Patient has fentanyl drip running at 200mcg (20mL/hr) and D5W running at 75mL/hr. Patient has a go for urine retention that is patent and draining at this time. Patient has an abnormal magnesium level of 1.[address] Salmon has placed an order for 4g Magnesium IV. Will follow up and administer medication as ordered. Patient bed in low position with bed alarm on and call light in reach at this time.
[2019-02-04] MEDS: fentaNYL Citrate 2,500 MCG in NS 200 ML IV SCH ×2 (07:41→22:40)
--- NOTE | 2019-02-04 07:56 | NUR ---
NURSE NOTES: Wasted 20mL fentanyl with pharmacist .
--- NOTE | 2019-02-04 08:22 | NUR ---
NURSE NOTES: Received patient from GENNY Barraza. Patient resting in bed in semi-fowlers position with eyes closed at this time. Patient alert to self and place but confused to purpose and time. 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 Patient reported to have temperature of 99 over night. Patient has a fan on at the bedside at this time. Patient wants to keep the fan on at this time. Will continue to monitor temperature. Patient on trach to ventilator with setting of AC 14, tidal volume 500, FiO2 28%, and PEEP 5. Patient has a shiley 8 trach. Patient was on trach to T-piece upon admission. Patient has a gastrostomy tube that was replaced on 01/24 due to malfunction in the snf ([facility]). Patient has tube feeding of osmolite 1.2 at 65mL/hr at this time with no residual. Patient has discharge present around the G tube insertion site. Patient has suprapubic catheter that is patent, asymptomatic, and draining at this time. Patient has a condom catheter as well due to fact that the patient has some leakage from the penis. Patient has a right upper arm PICC line that is patent, asymptomatic, and running Levophed drip at 6mcg/hr. Will continue to monitor and titrate levophed drip per protocol. Patient bed in low position with bed alarm on and call light in reach at this time. Patient has a phosphorus level of 2.[address] Salmon has ordered 30mmol K-phos. Will administer as ordered. Addendum: 02/04/19 at 0833 by Beverly Lira RN Assessment performed at 0730. Hand-off at 0730. Disregard time stamp above. Addendum: 02/04/19 at 1345 by Beverly Lira RN DISREGARD THIS NOTE. MEANT FOR ANOTHER PATIENT.
[2019-02-04] MEDS: Docusate 100mg tablet NG SCH ×2 (08:43→17:48)
[2019-02-04] MEDS: Solu-MEDROL 125mg Inj IVP SCH ×2 (08:43→21:20)
[2019-02-04] MEDS: Doxycycline Hyclate 100 MG in D5W 110 ML IV SCH ×2 (08:43→21:20)
[2019-02-04] MEDS: Pantoprazole Inj IVP SCH ×2 (08:43→21:20)
[2019-02-04] MEDS: Enoxaparin 40mg Inj SUBQ SCH (08:46)
--- NOTE | 2019-02-04 09:16 | Nephrology Progress Note ---
Assessment/Plan Problem List: (1) Cardiac arrest (2) Prerenal azotemia (3) Hypernatremia (4) Hypoalbuminemia (5) HTN (hypertension) Assessment Pre renal Azotemia due to - Dehydration- - High Protein catabolic state as result of Doxy and steroids HyperNatremia due to free water deficit HypoAlbuminemia Plan Sugg: add Norvasc D5W IV fluid Avoid Nephrotoxics Monitor lytes per consultants Subjective ROS Limited/Unobtainable: Yes Objective Objective Last 24 Hour Vital Signs Date Time Temp Pulse Resp B/P (MAP) Pulse Ox O2 Delivery O2 Flow Rate FiO2 02/04/19 08:51 92 18 40 02/04/19 08:00 97.7 73 16 199/85 (123) 100 02/04/19 07:41 17 Mechanical Ventilator 40 02/04/19 07:30 70 16 153/67 (95) 100 02/04/19 07:14 58 16 40 02/04/19 07:00 16 Mechanical Ventilator 02/04/19 07:00 62 16 158/66 (96) 98 02/04/19 06:30 60 16 160/78 (105) 100 02/04/19 06:00 16 Mechanical Ventilator 02/04/19 06:00 57 16 146/72 (96) 100 02/04/19 05:30 60 13 124/62 (82) 100 02/04/19 05:02 74 16 30 02/04/19 05:00 62 14 152/64 (93) 100 02/04/19 05:00 16 Mechanical Ventilator 02/04/19 04:30 70 16 174/65 (101) 100 02/04/19 04:00 Mechanical Ventilator 02/04/19 04:00 97.8 64 16 115/66 (82) 100 02/04/19 04:00 16 Mechanical Ventilator 02/04/19 04:00 40 02/04/19 04:00 94 02/04/19 03:30 90 17 102/56 (71) 100 02/04/19 03:12 16 Mechanical Ventilator 02/04/19 03:00 101 17 219/115 (149) 100 02/04/19 03:00 16 Mechanical Ventilator 02/04/19 02:52 96 18 30 02/04/19 02:30 101 17 211/89 (129) 100 02/04/19 02:00 91 16 192/132 (152) 100 02/04/19 02:00 16 Mechanical Ventilator 02/04/19 01:30 65 16 125/72 (89) 100 02/04/19 01:08 89 16 30 02/04/19 01:00 16 Mechanical Ventilator 02/04/19 01:00 64 16 115/66 (82) 100 02/04/19 00:30 82 16 177/143 (154) 100 02/04/19 00:00 Mechanical Ventilator 02/04/19 00:00 60 02/04/19 00:00 97.7 69 16 180/130 (147) 100 02/04/19 00:00 16 Mechanical Ventilator 02/04/19 00:00 40 02/03/19 23:30 68 16 153/114 (127) 100 02/03/19 23:11 77 17 30 02/03/19 23:00 59 16 140/71 (94) 100 02/03/19 23:00 16 Mechanical Ventilator 02/03/19 22:30 59 16 113/80 (91) 100 02/03/19 22:00 16 Mechanical Ventilator 02/03/19 22:00 61 16 114/66 (82) 100 02/03/19 21:30 63 16 114/66 (82) 100 02/03/19 21:29 74 16 30 02/03/19 21:00 76 16 104/74 (84) 100 02/03/19 21:00 16 Mechanical Ventilator 02/03/19 20:30 60 16 117/79 (92) 100 02/03/19 20:00 40 02/03/19 20:00 Mechanical Ventilator 02/03/19 20:00 16 Mechanical Ventilator 02/03/19 20:00 97.5 60 16 115/65 (82) 100 02/03/19 20:00 62 02/03/19 19:30 60 16 148/87 (107) 100 02/03/19 19:05 77 16 30 02/03/19 19:05 16 Mechanical Ventilator 40 02/03/19 19:00 59 16 143/105 (118) 100 02/03/19 19:00 16 Mechanical Ventilator 40 02/03/19 18:30 54 16 105/64 (78) 100 02/03/19 18:00 16 Mechanical Ventilator 40 02/03/19 18:00 54 16 107/68 (81) 100 02/03/19 17:30 55 16 99/64 (76) 100 02/03/19 17:15 53 16 30 02/03/19 17:00 16 Mechanical Ventilator 40 02/03/19 17:00 55 16 116/63 (80) 100 02/03/19 16:30 53 16 96/68 (77) 100 02/03/19 16:00 53 02/03/19 16:00 16 Mechanical Ventilator 40 02/03/19 16:00 40 02/03/19 16:00 Mechanical Ventilator 02/03/19 16:00 99.0 53 16 105/67 (80) 100 02/03/19 15:33 59 16 30 02/03/19 15:30 56 16 106/72 (83) 100 02/03/19 15:00 16 Mechanical Ventilator 40 02/03/19 15:00 60 16 107/62 (77) 100 02/03/19 14:50 16 Mechanical Ventilator 40 02/03/19 14:45 16 Mechanical Ventilator 40 02/03/19 14:40 16 Mechanical Ventilator 40 02/03/19 14:35 16 Mechanical Ventilator 40 02/03/19 14:30 Mechanical Ventilator 40 02/03/19 14:30 58 16 85/66 (72) 100 02/03/19 14:00 58 16 96/68 (77) 100 02/03/19 14:00 16 Mechanical Ventilator 40 02/03/19 13:39 91 16 30 02/03/19 13:30 59 16 98/63 (75) 100 02/03/19 13:00 60 16 108/70 (83) 100 02/03/19 13:00 16 Mechanical Ventilator 40 02/03/19 12:30 98.0 60 16 116/85 (95) 100 02/03/19 12:00 65 16 135/88 (104) 100 02/03/19 12:00 Mechanical Ventilator 02/03/19 12:00 16 Mechanical Ventilator 40 02/03/19 12:00 68 02/03/19 12:00 40 02/03/19 11:30 66 16 120/66 (84) 100 02/03/19 11:00 16 Mechanical Ventilator 40 02/03/19 11:00 77 16 143/69 (93) 100 02/03/19 10:55 16 Mechanical Ventilator 40 02/03/19 10:50 16 Mechanical Ventilator 40 02/03/19 10:45 18 Mechanical Ventilator 40 02/03/19 10:40 18 Mechanical Ventilator 40 02/03/19 10:39 91 16 30 02/03/19 10:35 19 Mechanical Ventilator 40 02/03/19 10:30 20 Mechanical Ventilator 40 02/03/19 10:30 97 19 137/70 (92) 100 02/03/19 10:25 21 Mechanical Ventilator 40 02/03/19 10:20 22 Mechanical Ventilator 40 02/03/19 10:15 22 Mechanical Ventilator 40 02/03/19 10:10 22 Mechanical Ventilator 40 02/03/19 10:05 24 Mechanical Ventilator 40 02/03/19 10:00 94 17 160/73 (102) 100 02/03/19 10:00 24 Mechanical Ventilator 40 02/03/19 09:59 24 Mechanical Ventilator 40 02/03/19 09:55 24 Mechanical Ventilator 40 02/03/19 09:50 25 Mechanical Ventilator 40 02/03/19 09:45 25 Mechanical Ventilator 40 02/03/19 09:40 25 Mechanical Ventilator 40 02/03/19 09:35 26 Mechanical Ventilator 40 02/03/19 09:30 80 16 146/81 (102) 100 02/03/19 09:30 24 Mechanical Ventilator 40 02/03/19 09:25 27 Mechanical Ventilator 50 02/03/19 09:23 89 17 30 02/03/19 09:20 27 Mechanical Ventilator 50 02/03/19 09:15 28 Mechanical Ventilator 50 Intake and Output 02/03/19 02/04/19 19:00 07:00 Intake Total 1540.08272 ml 1955.75 ml Output Total 465 ml 936 ml Balance 1075.18161 ml 1019.75 ml Intake Free Water 100 ml 100 ml IV Total 960.04089 ml 1315.75 ml Tube Feeding 450 ml 540 ml Other 30 ml Output Urine Total 465 ml 936 ml # Bowel Movements 2 Laboratory Tests 02/03/19 14:30: Urine Color Pale yellow, Urine Appearance Clear, Urine pH 5, Urine Specific [place] 1.020, Urine Protein 2+H, Urine Glucose (UA) Negative, Urine Ketones Negative, Urine Blood Negative, Urine Nitrite Negative, Urine Bilirubin Negative , Urine Urobilinogen Normal, Urine Leukocyte Esterase Negative, Urine RBC 2-4H, Urine WBC 0-2, Urine Squamous Epithelial Cells None, Urine Calcium Oxalate Crystals Moderate, Urine Bacteria Occasional, Urine Mucus FewH, Urine Random Sodium 46 02/04/19 03:40: White Blood Count 19.6H, Red Blood Count 3.63L, Hemoglobin 10.9L, Hematocrit 35.3L, Mean Corpuscular Volume 97, Mean Corpuscular Hemoglobin 30.1, Mean Corpuscular Hemoglobin Concent 30.9L, Red Cell Distribution Width 14.9H, Platelet Count 133L, Mean Platelet Volume 7.0, Neutrophils (%) (Auto) , Lymphocytes (%) (Auto) , Monocytes (%) (Auto) , Eosinophils (%) (Auto) , Basophils (%) (Auto) , Differential Total Cells Counted 100, Neutrophils % ( Manual) 96H, Lymphocytes % (Manual) 1L, Monocytes % (Manual) 3, Eosinophils % ( Manual) 0, Basophils % (Manual) 0, Band Neutrophils 0, Platelet Estimate DecreasedL, Platelet Morphology Normal, Anisocytosis 1+, Sodium Level 146H, Potassium Level 3.7, Chloride Level 111H, Carbon Dioxide Level 32, Anion Gap 3L , Blood Urea Nitrogen 32H, Creatinine 0.8, Estimat Glomerular Filtration Rate , Glucose Level 106, Hemoglobin A1c 5.7, Uric Acid 2.7, Calcium Level 8.7, Phosphorus Level 3.7, Magnesium Level 1.5L, Iron Level 47L, Total Iron Binding Capacity 152L, Percent Iron Saturation 31, Unsaturated Iron Binding 105L, Ferritin 293, Total Bilirubin 0.7, Gamma Glutamyl Transpeptidase 36, Aspartate Amino Transf (AST/SGOT) 21, Alanine Aminotransferase (ALT/SGPT) 56, Alkaline Phosphatase 50, Ammonia 14, Total Creatine Kinase 170, Troponin I 0.037, C- Reactive Protein, Quantitative 2.3H, Pro-B-Type Natriuretic Peptide 390H, Total Protein 5.8L, Albumin 2.6L, Globulin 3.2, Albumin/Globulin Ratio 0.8L, Triglycerides Level 92, Cholesterol Level 239H, LDL Cholesterol 147H, HDL Cholesterol 74H, Cholesterol/HDL Ratio 3.2L, Vitamin B12 Level 875, Folate 16.2 , Thyroid Stimulating Hormone (TSH) 1.510 02/04/19 04:00: Stool Occult Blood [Pending] Height (Feet): 5 Height (Inches): 10.00 Weight (Pounds): 160 General Appearance: no apparent distress EENT: other - vented Cardiovascular: normal rate Respiratory/Chest: decreased breath sounds Abdomen: distended Felipe Salmon MD Feb 04, 2019 09:16
[2019-02-04] MEDS ORDERED: NS 275ml ONE (09:49)
--- NOTE | 2019-02-04 10:30 | NUR ---
NURSE NOTES: Patient on fentanyl drip of 150mcg/hr at this time. Patient RASS score -2 at this time. Patent occasionally restless but follows commands. Titrating patient on lower dose of fentanyl in order to put patient on ventilator weaning trial. Will continue to monitor and continue to titrate fentanyl per protocol. Patient blood pressure 130/67, HR 65 with sinus rhythm on the awake overnight monitor, RR 16, SpO2 100% on ventilator setting of AC 16, tidal volume 500, FiO2 40%, and PEEP 5. Patient right nares NGT remains in place with tube feeding running without residual. Patient showing no sign of acute distress. Bed in low position with bed alarm on and call light in reach at this time.
--- NOTE | 2019-02-04 11:20 | General Progress Note ---
Assessment/Plan Status: stable Assessment/Plan: s: Intubated. Vent setting reviewed O: Easily arousble, Not following the command PHYSICAL EXAMINATION: GENERAL: An elderly male, lying in bed, intubated on mechanical ventilation, not in acute distress. HEENT: Normocephalic and atraumatic. Pupils slightly responsive to light. Unable to assess oral mucosa with E-tube in place. NECK: Supple. No lymphadenopathy. CARDIOVASCULAR: He is tachycardic. S1, S2 normal. No murmur can be heard. LUNGS: Diminished breathing sounds at the bases. No wheezing or rhonchi. Normal breathing effort. Mechanically ventilated. ABDOMEN: Soft, nontender, and nondistended. Normal bowel sounds. No hepatosplenomegaly or ascites. No organomegaly. EXTREMITIES: No edema or cyanosis. labs: dated Jan 28 reviewed IMAGING: Chest x-ray dated February 01 is negative for any pneumothorax. Meds: reviewed and reconciled ASSESSMENT AND PLAN: 1. Vent dependent respiratory failure. 2. Sepsis- Gram negative HCA PNA 3. Chronic obstructive pulmonary disease, end-stage, oxygen-dependent. 3. Cardiopulmonary arrest, status post resuscitation x2. 4. Hypertension. 5. Abnormal blood sugar. 6. Anemia. 7. Abn Trop: likely secondary to #3 7. GI and DVT prophylaxis. PLAN OF CARE: Current Antibiotic management Restart Lovenox, will monitor plt count Weaning protocol , defer to pulmonary Improving Sodium level Notes from nephrology reviewed Subjective Allergies: Coded Allergies: No Known Allergies (Unverified , 06/05/18) Objective Last 24 Hour Vital Signs Date Time Temp Pulse Resp B/P (MAP) Pulse Ox O2 Delivery O2 Flow Rate FiO2 02/04/19 11:00 16 Mechanical Ventilator 40 02/04/19 10:48 64 16 40 02/04/19 10:45 16 Mechanical Ventilator 40 02/04/19 10:30 16 Mechanical Ventilator 40 02/04/19 10:00 16 Mechanical Ventilator 40 02/04/19 09:56 61 118/71 02/04/19 09:00 16 Mechanical Ventilator 40 02/04/19 08:51 92 18 40 02/04/19 08:00 Mechanical Ventilator 02/04/19 08:00 16 Mechanical Ventilator 40 02/04/19 08:00 40 02/04/19 08:00 97.7 73 16 199/85 (123) 100 02/04/19 07:41 17 Mechanical Ventilator 40 02/04/19 07:30 70 16 153/67 (95) 100 02/04/19 07:14 58 16 40 02/04/19 07:00 16 Mechanical Ventilator 02/04/19 07:00 62 16 158/66 (96) 98 02/04/19 06:30 60 16 160/78 (105) 100 02/04/19 06:00 16 Mechanical Ventilator 02/04/19 06:00 57 16 146/72 (96) 100 02/04/19 05:30 60 13 124/62 (82) 100 02/04/19 05:02 74 16 30 02/04/19 05:00 62 14 152/64 (93) 100 02/04/19 05:00 16 Mechanical Ventilator 02/04/19 04:30 70 16 174/65 (101) 100 02/04/19 04:00 Mechanical Ventilator 02/04/19 04:00 97.8 64 16 115/66 (82) 100 02/04/19 04:00 16 Mechanical Ventilator 02/04/19 04:00 40 02/04/19 04:00 94 02/04/19 03:30 90 17 102/56 (71) 100 02/04/19 03:12 16 Mechanical Ventilator 02/04/19 03:00 101 17 219/115 (149) 100 02/04/19 03:00 16 Mechanical Ventilator 02/04/19 02:52 96 18 30 02/04/19 02:30 101 17 211/89 (129) 100 02/04/19 02:00 91 16 192/132 (152) 100 02/04/19 02:00 16 Mechanical Ventilator 02/04/19 01:30 65 16 125/72 (89) 100 02/04/19 01:08 89 16 30 02/04/19 01:00 16 Mechanical Ventilator 02/04/19 01:00 64 16 115/66 (82) 100 02/04/19 00:30 82 16 177/143 (154) 100 02/04/19 00:00 Mechanical Ventilator 02/04/19 00:00 60 02/04/19 00:00 97.7 69 16 180/130 (147) 100 02/04/19 00:00 16 Mechanical Ventilator 02/04/19 00:00 40 02/03/19 23:30 68 16 153/114 (127) 100 02/03 23:11 77 17 30 1819 23:00 59 16 140/71 (94) 100 02/03/19 23:00 16 Mechanical Ventilator 02/03/19 22:30 59 16 113/80 (91) 100 19 22:00 16 Mechanical Ventilator 02/03/19 22:00 61 16 114/66 (82) 100 19 21:30 63 16 114/66 (82) 100 02/03/19 21:29 74 16 30 19 21:00 76 16 104/74 (84) 100 02/03/19 21:00 16 Mechanical Ventilator 02/03/19 20:30 60 16 117/79 (92) 100 02/03/19 20:00 40 02/03/19 20:00 Mechanical Ventilator 02/03/19 20:00 16 Mechanical Ventilator 02/03/19 20:00 97.5 60 16 115/65 (82) 100 02/03/19 20:00 62 02/03/19 19:30 60 16 148/87 (107) 100 02/03/19 19:05 77 16 30 02/03/19 19:05 16 Mechanical Ventilator 40 02/03/19 19:00 59 16 143/105 (118) 100 02/03/19 19:00 16 Mechanical Ventilator 40 02/03/19 18:30 54 16 105/64 (78) 100 02/03/19 18:00 16 Mechanical Ventilator 40 02/03/19 18:00 54 16 107/68 (81) 100 02/03/19 17:30 55 16 99/64 (76) 100 02/03/19 17:15 53 16 30 19 17:00 16 Mechanical Ventilator 40 19 17:00 55 16 116/63 (80) 100 19 16:30 53 16 96/68 (77) 100 02/03/19 16:00 53 18 16:00 16 Mechanical Ventilator 40 02/03/19 16:00 40 02/03/19 16:00 Mechanical Ventilator 02/03/19 16:00 99.0 53 16 105/67 (80) 100 19 15:33 59 16 30 19 15:30 56 16 106/72 (83) 100 02/03/19 15:00 16 Mechanical Ventilator 40 02/03/19 15:00 60 16 107/62 (77) 100 02/03/19 14:50 16 Mechanical Ventilator 40 02/03/19 14:45 16 Mechanical Ventilator 40 02/03/19 14:40 16 Mechanical Ventilator 40 02/03/19 14:35 16 Mechanical Ventilator 40 02/03/19 14:30 Mechanical Ventilator 40 02/03/19 14:30 58 16 85/66 (72) 100 02/03/19 14:00 58 16 96/68 (77) 100 02/03/19 14:00 16 Mechanical Ventilator 40 02/03/19 13:39 91 16 30 02/03/19 13:30 59 16 98/63 (75) 100 02/03/19 13:00 60 16 108/70 (83) 100 02/03/19 13:00 16 Mechanical Ventilator 40 02/03/19 12:30 98.0 60 16 116/85 (95) 100 02/03/19 12:00 65 16 135/88 (104) 100 02/03/19 12:00 Mechanical Ventilator 02/03/19 12:00 16 Mechanical Ventilator 40 02/03/19 12:00 68 02/03/19 12:00 40 02/03/19 11:30 66 16 120/66 (84) 100 Intake and Output 02/03/19 02/04/19 19:00 07:00 Intake Total 1540.19993 ml 1955.75 ml Output Total 465 ml 936 ml Balance 1075.77170 ml 1019.75 ml Intake Free Water 100 ml 100 ml IV Total 960.46452 ml 1315.75 ml Tube Feeding 450 ml 540 ml Other 30 ml Output Urine Total 465 ml 936 ml # Bowel Movements 2 Laboratory Tests 02/03/19 14:30: Urine Color Pale yellow, Urine Appearance Clear, Urine pH 5, Urine Specific [place] 1.020, Urine Protein 2+H, Urine Glucose (UA) Negative, Urine Ketones Negative, Urine Blood Negative, Urine Nitrite Negative, Urine Bilirubin Negative , Urine Urobilinogen Normal, Urine Leukocyte Esterase Negative, Urine RBC 2-4H, Urine WBC 0-2, Urine Squamous Epithelial Cells None, Urine Calcium Oxalate Crystals Moderate, Urine Bacteria Occasional, Urine Mucus FewH, Urine Random Sodium 46 02/04/19 03:40: White Blood Count 19.6H, Red Blood Count 3.63L, Hemoglobin 10.9L, Hematocrit 35.3L, Mean Corpuscular Volume 97, Mean Corpuscular Hemoglobin 30.1, Mean Corpuscular Hemoglobin Concent 30.9L, Red Cell Distribution Width 14.9H, Platelet Count 133L, Mean Platelet Volume 7.0, Neutrophils (%) (Auto) , Lymphocytes (%) (Auto) , Monocytes (%) (Auto) , Eosinophils (%) (Auto) , Basophils (%) (Auto) , Differential Total Cells Counted 100, Neutrophils % ( Manual) 96H, Lymphocytes % (Manual) 1L, Monocytes % (Manual) 3, Eosinophils % ( Manual) 0, Basophils % (Manual) 0, Band Neutrophils 0, Platelet Estimate DecreasedL, Platelet Morphology Normal, Anisocytosis 1+, Sodium Level 146H, Potassium Level 3.7, Chloride Level 111H, Carbon Dioxide Level 32, Anion Gap 3L , Blood Urea Nitrogen 32H, Creatinine 0.8, Estimat Glomerular Filtration Rate , Glucose Level 106, Hemoglobin A1c 5.7, Uric Acid 2.7, Calcium Level 8.7, Phosphorus Level 3.7, Magnesium Level 1.5L, Iron Level 47L, Total Iron Binding Capacity 152L, Percent Iron Saturation 31, Unsaturated Iron Binding 105L, Ferritin 293, Total Bilirubin 0.7, Gamma Glutamyl Transpeptidase 36, Aspartate Amino Transf (AST/SGOT) 21, Alanine Aminotransferase (ALT/SGPT) 56, Alkaline Phosphatase 50, Ammonia 14, Total Creatine Kinase 170, Troponin I 0.037, C- Reactive Protein, Quantitative 2.3H, Pro-B-Type Natriuretic Peptide 390H, Total Protein 5.8L, Albumin 2.6L, Globulin 3.2, Albumin/Globulin Ratio 0.8L, Triglycerides Level 92, Cholesterol Level 239H, LDL Cholesterol 147H, HDL Cholesterol 74H, Cholesterol/HDL Ratio 3.2L, Vitamin B12 Level 875, Folate 16.2 , Thyroid Stimulating Hormone (TSH) 1.510 02/04/19 04:00: Stool Occult Blood [Pending] Height (Feet): 5 Height (Inches): 10.00 Weight (Pounds): 160 Brianne Henry MD Feb 04, 2019 11:20
--- NOTE | 2019-02-04 12:00 | NUR ---
NURSE NOTES: Patient lying in bed in semi-fowlers position with eyes closed. Patient showing no sign of acute distress. Patient on Fentanyl drip at this time with a RASS score of -1. Patient remains arousable to voice and opens eyes spontaneously. Patient slightly restless at times. When patient reoriented and told that he needs to be calm, he obeys commands. Patient fentanyl drip decreased to 100mcg/hr at this time. Will continue to monitor and follow up with weaning trial if possible. Blood pressure 180/86, temp 98.1, HR 94 in sinus rhythm, RR 18, SpO2 100% on mechanical ventilator with setting of AC 16, tidal volume 500, FiO2 40%, and PEEP 5. Patient tolerating setting with no sign of distress at this time. Patient has an NGT of the right nares that is patent, asymptomatic, and verified with aspiration and auscultation at this time. Tube feeding of vital AF continues to run at 55mL/hr at this time with no residual. Patient still showing pitting edema of the upper and lower extremities +3 and nonpitting edema of the scrotum. Right internal jugular triple lumen catheter remains patent, asymptomatic, and dressing intact at this time. Saenz remains patent and in draining about 100mL/hr of clear yellow urine. Patient bed in low position with bed alarm on and call light in reach at this time. Will continue to monitor sedation level and follow up with respiratory therapist regarding weaning trial.
--- NOTE | 2019-02-04 14:45 | NUR ---
NURSE NOTES: Called Dr White and reported the ABG result post weaning trial. Patient weaning on pressure support 14 for an hour when ABG obtained. Dr White ordered for patient to be placed on CPAP with pressure support 12 and placed back on AC 16 when patient no longer tolerating weaning trial. Will follow up with respiratory therapist. Patient blood pressure 173/81, HR 90, SpO2 100%, and RR 17. Patient showing no sign of distress at this time. Patient remains on fentanyl drip at 100mcg/hr at this time. Will continue to monitor vital signs and sedation level.
--- NOTE | 2019-02-04 14:49 | Pulmonolgy Critical Care Note ---
Critical Care - Asmt/Plan Assessment/Plan: Pulmonary Critical Care Progress Note HPI Patient is a 73 year olf man with previous history of COPD, CHF, HTN, DM admitted with extreme respiratory distress, intubated in the ED, subsequent Cardiac Arrest. Noted to have hypercapneic respiratory failure. Interactive today, improved ventilator requirements CT Head negative Allergies: No Known Allergies Past Medical History: COPD/Asthma, CHF, Hypertension, DM All Other Systems: limited Physical Exam Vital signs noted General Appearance: sedated on ventilator Head: normocephalic, atraumatic Eyes: bilateral eye PERRL, bilateral eye EOMI ENT: moist mm, no LN Neck: supple Respiratory: generally reduced BS, occasional wheeze Cardiovascular: tachycardia, HS1, HS2, RRR Gastrointestinal: non tender, soft Musculoskeletal: normal inspection Neurologic: sedated on ventilator Skin: no rash, palpation normal Impression: COPD exacerbation Hypercapneic respiratory failure S/p cardiac arrest in the ED CHF HTN Diabetes Plan Wean as tolerated Adjust FIO2 for sats 90-94% HHN Q4 IV Solumedrol Sedation PRN Sz management Monitor labs PPX IV Doxycycline DNR status Labs Test 01/26/19 05:45 White Blood Count 9.6 K/UL (4.8-10.8) Red Blood Count 4.57 M/UL (4.70-6.10) Hemoglobin 13.5 G/DL (14.2-18.0) Hematocrit 46.0 % (42.0-52.0) Mean Corpuscular Volume 101 FL (80-99) Mean Corpuscular Hemoglobin 29.6 PG (27.0-31.0) Mean Corpuscular Hemoglobin Concent 29.4 G/DL (32.0-36.0) Red Cell Distribution Width 15.2 % (11.6-14.8) Platelet Count 181 K/UL (150-450) Mean Platelet Volume 7.5 FL (6.5-10.1) Neutrophils (%) (Auto) 49.7 % (45.0-75.0) Lymphocytes (%) (Auto) 33.3 % (20.0-45.0) Monocytes (%) (Auto) 8.2 % (1.0-10.0) Eosinophils (%) (Auto) 8.2 % (0.0-3.0) Basophils (%) (Auto) 0.7 % (0.0-2.0) Lactic Acid Level 0.80 mmol/L (0.4-2.0) Chest X-Ray: No consolidation, no effusion, ETT tube 7cm, RIJ line good position Critical Care - Objective Last 24 Hour Vital Signs Date Time Temp Pulse Resp B/P (MAP) Pulse Ox O2 Delivery O2 Flow Rate FiO2 02/04/19 14:00 19 Mechanical Ventilator 40 02/04/19 13:30 19 Mechanical Ventilator 40 02/04/19 13:00 95 17 184/85 (118) 100 02/04/19 13:00 16 Mechanical Ventilator 40 02/04/19 12:45 40 02/04/19 12:45 86 16 189/70 (109) 100 02/04/19 12:45 16 Mechanical Ventilator 40 02/04/19 12:36 93 18 40 02/04/19 12:30 96 18 171/96 (121) 100 02/04/19 12:30 16 Mechanical Ventilator 40 02/04/19 12:15 97 20 180/86 (117) 100 02/04/19 12:15 16 Mechanical Ventilator 40 02/04/19 12:09 98.1 97 21 196/87 (123) 100 02/04/19 12:00 95 02/04/19 12:00 16 Mechanical Ventilator 40 02/04/19 12:00 40 02/04/19 12:00 81 17 148/87 (107) 100 02/04/19 12:00 Mechanical Ventilator 02/04/19 11:45 73 16 135/78 (97) 100 02/04/19 11:45 16 Mechanical Ventilator 40 02/04/19 11:30 97 21 180/79 (112) 86 02/04/19 11:30 16 Mechanical Ventilator 40 02/04/19 11:16 85 17 208/69 (115) 100 02/04/19 11:15 16 Mechanical Ventilator 40 02/04/19 11:00 16 Mechanical Ventilator 40 02/04/19 11:00 84 16 180/78 (112) 97 02/04/19 10:48 64 16 40 02/04/19 10:45 16 Mechanical Ventilator 40 02/04/19 10:45 77 16 186/160 (169) 100 02/04/19 10:30 63 16 147/82 (103) 100 02/04/19 10:30 16 Mechanical Ventilator 40 02/04/19 10:00 16 Mechanical Ventilator 40 02/04/19 10:00 62 16 118/71 (87) 100 02/04/19 09:56 61 118/71 02/04/19 09:30 70 16 168/151 (157) 99 02/04/19 09:00 88 17 182/85 (117) 100 02/04/19 09:00 16 Mechanical Ventilator 40 02/04/19 08:51 92 18 40 02/04/19 08:30 83 17 192/94 (126) 100 02/04/19 08:00 102 02/04/19 08:00 Mechanical Ventilator 02/04/19 08:00 16 Mechanical Ventilator 40 02/04/19 08:00 40 02/04/19 08:00 97.7 73 16 199/85 (123) 100 02/04/19 07:41 17 Mechanical Ventilator 40 02/04/19 07:30 70 16 153/67 (95) 100 02/04/19 07:14 58 16 40 02/04/19 07:00 16 Mechanical Ventilator 02/04/19 07:00 62 16 158/66 (96) 98 02/04/19 06:30 60 16 160/78 (105) 100 02/04/19 06:00 16 Mechanical Ventilator 02/04/19 06:00 57 16 146/72 (96) 100 02/04/19 05:30 60 13 124/62 (82) 100 02/04/19 05:02 74 16 30 02/04/19 05:00 62 14 152/64 (93) 100 02/04/19 05:00 16 Mechanical Ventilator 02/04/19 04:30 70 16 174/65 (101) 100 02/04/19 04:00 Mechanical Ventilator 02/04/19 04:00 97.8 64 16 115/66 (82) 100 02/04/19 04:00 16 Mechanical Ventilator 02/04/19 04:00 40 02/04/19 04:00 94 02/04/19 03:30 90 17 102/56 (71) 100 02/04/19 03:12 16 Mechanical Ventilator 02/04/19 03:00 101 17 219/115 (149) 100 02/04/19 03:00 16 Mechanical Ventilator 02/04/19 02:52 96 18 30 02/04/19 02:30 101 17 211/89 (129) 100 02/04/19 02:00 91 16 192/132 (152) 100 02/04/19 02:00 16 Mechanical Ventilator 02/04/19 01:30 65 16 125/72 (89) 100 02/04/19 01:08 89 16 30 02/04/19 01:00 16 Mechanical Ventilator 02/04/19 01:00 64 16 115/66 (82) 100 02/04/19 00:30 82 16 177/143 (154) 100 02/04/19 00:00 Mechanical Ventilator 02/04/19 00:00 60 02/04/19 00:00 97.7 69 16 180/130 (147) 100 02/04/19 00:00 16 Mechanical Ventilator 02/04/19 00:00 40 02/03/19 23:30 68 16 153/114 (127) 100 02/03/19 23:11 77 17 30 02/03/19 23:00 59 16 140/71 (94) 100 02/03/19 23:00 16 Mechanical Ventilator 02/03/19 22:30 59 16 113/80 (91) 100 02/03/19 22:00 16 Mechanical Ventilator 02/03/19 22:00 61 16 114/66 (82) 100 02/03/19 21:30 63 16 114/66 (82) 100 02/03/19 21:29 74 16 30 02/03/19 21:00 76 16 104/74 (84) 100 02/03/19 21:00 16 Mechanical Ventilator 02/03/19 20:30 60 16 117/79 (92) 100 02/03/19 20:00 40 02/03/19 20:00 Mechanical Ventilator 02/03/19 20:00 16 Mechanical Ventilator 02/03/19 20:00 97.5 60 16 115/65 (82) 100 02/03/19 20:00 62 02/03/19 19:30 60 16 148/87 (107) 100 02/03/19 19:05 77 16 30 02/03/19 19:05 16 Mechanical Ventilator 40 02/03/19 19:00 59 16 143/105 (118) 100 02/03/19 19:00 16 Mechanical Ventilator 40 02/03/19 18:30 54 16 105/64 (78) 100 02/03/19 18:00 16 Mechanical Ventilator 40 02/03/19 18:00 54 16 107/68 (81) 100 02/03/19 17:30 55 16 99/64 (76) 100 02/03/19 17:15 53 16 30 02/03/19 17:00 16 Mechanical Ventilator 40 02/03/19 17:00 55 16 116/63 (80) 100 02/03/19 16:30 53 16 96/68 (77) 100 02/03/19 16:00 53 02/03/19 16:00 16 Mechanical Ventilator 40 02/03/19 16:00 40 02/03/19 16:00 Mechanical Ventilator 02/03/19 16:00 99.0 53 16 105/67 (80) 100 02/03/19 15:33 59 16 30 02/03/19 15:30 56 16 106/72 (83) 100 02/03/19 15:00 16 Mechanical Ventilator 40 02/03/19 15:00 60 16 107/62 (77) 100 02/03/19 14:50 16 Mechanical Ventilator 40 Accucheck: 161 Critical Care - Subjective ROS Limited/Unobtainable: No Condition: improving FI02: 40 Vent Support Breath Rate: 14 Vent Support Mode: CPAP Vent Tidal Volume: 500 Sputum Amount: Scant PEEP: 5.0 PIP: 15 Tube Feeding Amount: 45 I&O: Intake and Output 02/03/19 02/04/19 19:00 07:00 Intake Total 1540.85316 ml 1955.75 ml Output Total 465 ml 936 ml Balance 1075.62551 ml 1019.75 ml Intake Free Water 100 ml 100 ml IV Total 960.16253 ml 1315.75 ml Tube Feeding 450 ml 540 ml Other 30 ml Output Urine Total 465 ml 936 ml # Bowel Movements 2 ET-Tube: 8.0 ET Position: 25 Johny White MD Feb 04, 2019 14:49
--- NOTE | 2019-02-04 14:52 | NUR ---
RESPIRATORY NOTE: placed pt on CPAP PS14, pt has been tolerating well or about 2 hours now. ABG drawn and resulted. RN aware and notified MD. verbally asked to drop PS to 12 until pt can tolerate. will cont to monitor.
--- NOTE | 2019-02-04 15:56 | Hematology/Onc Progress Note ---
Assessment/Plan Assessment/Plan # Thrombocytopenia is likely due to underlying infection/sepsis v dic, reactive process --> hiv is neg, hepatitis is neg as well --> us of the abd from prior 2018 --> plt rend 140-->115-->105-->133 --> okay for ppx as long as above 75k --> meds have been reviewed # Anemia of chronic disease, due to multifactorial causes --> anemia panel reviewed from earlier in admission and c/w acd --> hgb goal is >7 --> no hemolysis is seen --> smear has been reviewed # Leukocytosis/elevated white blood cell count, unspecified likely related to steroid meds --> have reviewed peripheral smear and bandemia/neutrophilia noted --> continue antibiotics if they have been started by ID team --> monitor for resolution # COPD exacerbation --> has been given steriods --> per id for aspiration prec on zosyn # Hypercapneic respiratory failure --> remains on vent --> sbt per pulm # S/p cardiac arrest in the ED # CHF # HTN # Diabetes # DNR status Time of note does not correspond to when patient was seen. Greatly appreciate consultation. Subjective Allergies: Coded Allergies: No Known Allergies (Unverified , 06/05/18) Subjective 02/01: no events to report, plt is lower, weaning trial initiated with mack gray rn, hiv neg 02/04: icu, wbc elevated, on abx Objective Objective Current Medications Medications (Trade) Dose Ordered Sig/Brittani Route PRN Reason Start Time Stop Time Status Last Admin Dose Admin Acetaminophen (Tylenol) 650 mg Q4H PRN NG FOR MILD PAIN 01/26/19 10:15 02/25/19 10:14 Amlodipine Besylate (Norvasc) 5 mg DAILY NG 02/04/19 09:15 03/06/19 09:14 02/04/19 09:56 Chlorhexidine Gluconate (Renetta-Hex 2%) 1 applic DAILY@1999 TOPIC 01/27/19 20:00 02/26/19 19:59 02/03/19 20:22 Dextrose 1,000 ml @ 75 mls/hr [id number] IV 02/03/19 12:00 03/05/19 11:59 02/04/19 14:40 Dextrose (Dextrose 50%) 25 ml Q30M PRN IV Hypoglycemia 01/26/19 10:30 02/25/19 10:29 Dextrose (Dextrose 50%) 50 ml Q30M PRN IV Hypoglycemia 01/26/19 10:30 02/25/19 10:29 Docusate Sodium (Colace) 100 mg BID NG 02/02/19 18:00 03/04/19 17:59 02/04/19 08:43 Doxycycline Hyclate 100 mg/ Dextrose 110 ml @ 110 mls/hr Q12HR IV 01/26/19 11:00 02/04/19 23:59 02/04/19 08:43 Enoxaparin Sodium (Lovenox) 40 mg DAILY SUBQ 01/31/19 09:00 03/02/19 08:59 02/04/19 08:46 Fentanyl Citrate 2500 mcg/Sodium Chloride 250 ml @ 0 mls/hr Q24H IV 02/02/19 12:00 02/09/19 11:59 02/04/19 07:41 Insulin Aspart (NovoLOG) Q6HR SUBQ 01/26/19 12:00 02/25/19 11:59 02/04/19 11:54 Lorazepam (Ativan 2mg/ml 1ml) 1 mg Q4H PRN IV AGITATION / SEIZURE 01/30/19 15:00 02/06/19 14:59 02/02/19 21:31 Methylprednisolone Sodium Succinate (Solu-MEDROL) 60 mg EVERY 12 HOURS IVP 01/29/19 21:00 02/28/19 20:59 02/04/19 08:43 Pantoprazole (Protonix) 40 mg Q12HR IVP 02/03/19 21:00 02/25/19 10:59 02/04/19 08:43 Piperacillin Sod/ Tazobactam Sod 3.375 gm/Sodium Chloride 110 ml @ 27.5 mls/hr EVERY 8 HOURS IVPB 01/27/19 20:00 02/06/19 23:59 02/04/19 14:40 Polyethylene Glycol (Miralax) 17 gm BEDTIME GT 02/01/19 21:00 03/03/19 20:59 02/03/19 21:10 Last 24 Hour Vital Signs Date Time Temp Pulse Resp B/P (MAP) Pulse Ox O2 Delivery O2 Flow Rate FiO2 02/04/19 14:50 87 18 30 02/04/19 14:00 19 Mechanical Ventilator 40 02/04/19 13:30 19 Mechanical Ventilator 40 02/04/19 13:00 95 17 184/85 (118) 100 02/04/19 13:00 16 Mechanical Ventilator 40 02/04/19 12:45 40 02/04/19 12:45 86 16 189/70 (109) 100 02/04/19 12:45 30 02/04/19 12:45 16 Mechanical Ventilator 40 02/04/19 12:36 93 18 40 02/04/19 12:30 96 18 171/96 (121) 100 02/04/19 12:30 16 Mechanical Ventilator 40 02/04/19 12:15 97 20 180/86 (117) 100 02/04/19 12:15 16 Mechanical Ventilator 40 02/04/19 12:09 98.1 97 21 196/87 (123) 100 02/04/19 12:00 95 02/04/19 12:00 16 Mechanical Ventilator 40 02/04/19 12:00 40 02/04/19 12:00 81 17 148/87 (107) 100 02/04/19 12:00 Mechanical Ventilator 02/04/19 11:45 73 16 135/78 (97) 100 02/04/19 11:45 16 Mechanical Ventilator 40 02/04/19 11:30 97 21 180/79 (112) 86 02/04/19 11:30 16 Mechanical Ventilator 40 02/04/19 11:16 85 17 208/69 (115) 100 02/04/19 11:15 16 Mechanical Ventilator 40 02/04/19 11:00 16 Mechanical Ventilator 40 02/04/19 11:00 84 16 180/78 (112) 97 02/04/19 10:48 64 16 40 02/04/19 10:45 16 Mechanical Ventilator 40 02/04/19 10:45 77 16 186/160 (169) 100 02/04/19 10:30 63 16 147/82 (103) 100 02/04/19 10:30 16 Mechanical Ventilator 40 02/04/19 10:00 16 Mechanical Ventilator 40 02/04/19 10:00 62 16 118/71 (87) 100 02/04/19 09:56 61 118/71 02/04/19 09:30 70 16 168/151 (157) 99 02/04/19 09:00 88 17 182/85 (117) 100 02/04/19 09:00 16 Mechanical Ventilator 40 02/04/19 08:51 92 18 40 02/04/19 08:30 83 17 192/94 (126) 100 02/04/19 08:00 102 02/04/19 08:00 Mechanical Ventilator 02/04/19 08:00 16 Mechanical Ventilator 40 02/04/19 08:00 40 02/04/19 08:00 97.7 73 16 199/85 (123) 100 02/04/19 07:41 17 Mechanical Ventilator 40 02/04/19 07:30 70 16 153/67 (95) 100 02/04/19 07:14 58 16 40 02/04/19 07:00 16 Mechanical Ventilator 02/04/19 07:00 62 16 158/66 (96) 98 02/04/19 06:30 60 16 160/78 (105) 100 02/04/19 06:00 16 Mechanical Ventilator 02/04/19 06:00 57 16 146/72 (96) 100 02/04/19 05:30 60 13 124/62 (82) 100 02/04/19 05:02 74 16 30 02/04/19 05:00 62 14 152/64 (93) 100 02/04/19 05:00 16 Mechanical Ventilator 02/04/19 04:30 70 16 174/65 (101) 100 02/04/19 04:00 Mechanical Ventilator 02/04/19 04:00 97.8 64 16 115/66 (82) 100 02/04/19 04:00 16 Mechanical Ventilator 02/04/19 04:00 40 02/04/19 04:00 94 02/04/19 03:30 90 17 102/56 (71) 100 02/04/19 03:12 16 Mechanical Ventilator 02/04/19 03:00 101 17 219/115 (149) 100 02/04/19 03:00 16 Mechanical Ventilator 02/04/19 02:52 96 18 30 02/04/19 02:30 101 17 211/89 (129) 100 02/04/19 02:00 91 16 192/132 (152) 100 02/04/19 02:00 16 Mechanical Ventilator 02/04/19 01:30 65 16 125/72 (89) 100 02/04/19 01:08 89 16 30 02/04/19 01:00 16 Mechanical Ventilator 02/04/19 01:00 64 16 115/66 (82) 100 02/04/19 00:30 82 16 177/143 (154) 100 02/04/19 00:00 Mechanical Ventilator 02/04/19 00:00 60 02/04/19 00:00 97.7 69 16 180/130 (147) 100 02/04/19 00:00 16 Mechanical Ventilator 02/04/19 00:00 40 02/03/19 23:30 68 16 153/114 (127) 100 02/03/19 23:11 77 17 30 02/03/19 23:00 59 16 140/71 (94) 100 02/03/19 23:00 16 Mechanical Ventilator 02/03/19 22:30 59 16 113/80 (91) 100 02/03/19 22:00 16 Mechanical Ventilator 02/03/19 22:00 61 16 114/66 (82) 100 02/03/19 21:30 63 16 114/66 (82) 100 02/03/19 21:29 74 16 30 02/03/19 21:00 76 16 104/74 (84) 100 02/03/19 21:00 16 Mechanical Ventilator 02/03/19 20:30 60 16 117/79 (92) 100 02/03/19 20:00 40 02/03/19 20:00 Mechanical Ventilator 02/03/19 20:00 16 Mechanical Ventilator 02/03/19 20:00 97.5 60 16 115/65 (82) 100 02/03/19 20:00 62 02/03/19 19:30 60 16 148/87 (107) 100 02/03/19 19:05 77 16 30 02/03/19 19:05 16 Mechanical Ventilator 40 02/03/19 19:00 59 16 143/105 (118) 100 02/03/19 19:00 16 Mechanical Ventilator 40 02/03/19 18:30 54 16 105/64 (78) 100 02/03/19 18:00 16 Mechanical Ventilator 40 02/03/19 18:00 54 16 107/68 (81) 100 02/03/19 17:30 55 16 99/64 (76) 100 02/03/19 17:15 53 16 30 02/03/19 17:00 16 Mechanical Ventilator 40 02/03/19 17:00 55 16 116/63 (80) 100 02/03/19 16:30 53 16 96/68 (77) 100 02/03/19 16:00 53 02/03/19 16:00 16 Mechanical Ventilator 40 02/03/19 16:00 40 02/03/19 16:00 Mechanical Ventilator 02/03/19 16:00 99.0 53 16 105/67 (80) 100 02/03/19 15:33 59 16 30 02/03/19 15:30 56 16 106/72 (83) 100 02/03/19 15:00 16 Mechanical Ventilator 40 02/03/19 15:00 60 16 107/62 (77) 100 02/03/19 14:50 16 Mechanical Ventilator 40 02/03/19 14:45 16 Mechanical Ventilator 40 02/03/19 14:40 16 Mechanical Ventilator 40 02/03/19 14:35 16 Mechanical Ventilator 40 02/03/19 14:30 Mechanical Ventilator 40 02/03/19 14:30 58 16 85/66 (72) 100 02/03/19 14:00 58 16 96/68 (77) 100 02/03/19 14:00 16 Mechanical Ventilator 40 02/03/19 13:39 91 16 30 02/03/19 13:30 59 16 98/63 (75) 100 02/03/19 13:00 60 16 108/70 (83) 100 02/03/19 13:00 16 Mechanical Ventilator 40 02/03/19 12:30 98.0 60 16 116/85 (95) 100 02/03/19 12:00 65 16 135/88 (104) 100 02/03/19 12:00 Mechanical Ventilator 02/03/19 12:00 16 Mechanical Ventilator 40 02/03/19 12:00 68 02/03/19 12:00 40 02/03/19 11:30 66 16 120/66 (84) 100 02/03/19 11:00 16 Mechanical Ventilator 40 02/03/19 11:00 77 16 143/69 (93) 100 02/03/19 10:55 16 Mechanical Ventilator 40 02/03/19 10:50 16 Mechanical Ventilator 40 02/03/19 10:45 18 Mechanical Ventilator 40 02/03/19 10:40 18 Mechanical Ventilator 40 02/03/19 10:39 91 16 30 02/03/19 10:35 19 Mechanical Ventilator 40 02/03/19 10:30 20 Mechanical Ventilator 40 02/03/19 10:30 97 19 137/70 (92) 100 02/03/19 10:25 21 Mechanical Ventilator 40 02/03/19 10:20 22 Mechanical Ventilator 40 02/03/19 10:15 22 Mechanical Ventilator 40 02/03/19 10:10 22 Mechanical Ventilator 40 02/03/19 10:05 24 Mechanical Ventilator 40 02/03/19 10:00 94 17 160/73 (102) 100 02/03/19 10:00 24 Mechanical Ventilator 40 02/03/19 09:59 24 Mechanical Ventilator 40 02/03/19 09:55 24 Mechanical Ventilator 40 02/03/19 09:50 25 Mechanical Ventilator 40 02/03/19 09:45 25 Mechanical Ventilator 40 02/03/19 09:40 25 Mechanical Ventilator 40 02/03/19 09:35 26 Mechanical Ventilator 40 02/03/19 09:30 80 16 146/81 (102) 100 02/03/19 09:30 24 Mechanical Ventilator 40 02/03/19 09:25 27 Mechanical Ventilator 50 02/03/19 09:23 89 17 30 02/03/19 09:20 27 Mechanical Ventilator 50 02/03/19 09:15 28 Mechanical Ventilator 50 02/03/19 09:10 28 Mechanical Ventilator 50 02/03/19 09:05 25 Mechanical Ventilator 50 02/03/19 09:00 58 16 147/71 (96) 100 02/03/19 09:00 25 Mechanical Ventilator 50 02/03/19 08:30 59 16 95/64 (74) 100 02/03/19 08:00 30 02/03/19 08:00 97.8 60 16 96/68 (77) 100 02/03/19 08:00 Mechanical Ventilator 02/03/19 08:00 57 02/03/19 07:30 58 16 92/60 (71) 100 02/03/19 07:05 59 16 30 02/03/19 07:00 60 16 93/62 (72) 100 02/03/19 06:30 61 16 88/65 (73) 100 02/03/19 06:00 58 17 98/71 (80) 100 02/03/19 06:00 22 Mechanical Ventilator 30 02/03/19 05:30 56 16 117/71 (86) 100 02/03/19 05:30 58 16 30 02/03/19 05:00 57 16 103/67 (79) 98 02/03/19 05:00 20 Mechanical Ventilator 30 02/03/19 04:30 64 16 124/75 (91) 98 02/03/19 04:00 30 02/03/19 04:00 22 Mechanical Ventilator 30 02/03/19 04:00 68 02/03/19 04:00 Mechanical Ventilator 02/03/19 04:00 97.7 68 16 101/63 (76) 02/03/19 03:30 85 17 109/71 (84) 97 02/03/19 03:23 16 Mechanical Ventilator 30 02/03/19 03:00 16 Mechanical Ventilator 30 02/03/19 03:00 57 16 95/66 (76) 100 02/03/19 03:00 60 16 30 02/03/19 02:30 57 16 95/60 (72) 100 02/03/19 02:00 57 16 99/63 (75) 100 02/03/19 02:00 16 Endotracheal Tube 30 02/03/19 01:33 56 16 30 02/03/19 01:30 54 16 107/67 (80) 100 02/03/19 01:15 57 16 94/54 (67) 100 02/03/19 01:00 57 16 86/62 (70) 100 02/03/19 01:00 16 Mechanical Ventilator 30 02/03/19 00:45 56 16 89/61 (70) 100 02/03/19 00:30 56 16 93/65 (74) 100 02/03/19 00:15 56 16 90/60 (70) 100 02/03/19 00:00 30 02/03/19 00:00 98.0 57 16 83/58 (66) 100 02/03/19 00:00 20 Mechanical Ventilator 30 02/03/19 00:00 Mechanical Ventilator 02/03/19 00:00 57 02/02/19 23:45 58 16 87/59 (68) 100 02/02/19 23:30 56 16 83/59 (67) 100 02/02/19 23:15 56 16 88/58 (68) 100 02/02/19 23:04 58 16 30 02/02/19 23:00 20 Mechanical Ventilator 30 02/02/19 23:00 58 16 85/56 (66) 100 02/02/19 22:30 57 16 87/57 (67) 100 02/02/19 22:00 22 Mechanical Ventilator 30 02/02/19 22:00 61 16 82/65 (71) 100 02/02/19 21:30 78 16 122/78 (93) 96 02/02/19 21:15 62 16 30 02/02/19 21:00 60 16 115/69 (84) 100 02/02/19 21:00 22 Mechanical Ventilator 30 02/02/19 20:30 76 17 176/78 (110) 97 02/02/19 20:00 30 02/02/19 20:00 60 02/02/19 20:00 Mechanical Ventilator 02/02/19 20:00 59 16 112/64 (80) 100 02/02/19 20:00 22 Mechanical Ventilator 30 02/02/19 19:43 69 16 30 02/02/19 19:30 97.9 57 16 117/67 (84) 100 02/02/19 19:00 16 Mechanical Ventilator 30 02/02/19 19:00 61 16 97/66 (76) 100 02/02/19 18:30 80 16 94/66 (75) 99 02/02/19 18:00 55 16 98/64 (75) 100 02/02/19 18:00 16 Mechanical Ventilator 30 02/02/19 17:30 55 16 101/64 (76) 100 02/02/19 17:00 16 Mechanical Ventilator 30 02/02/19 17:00 98.3 56 16 100/64 (76) 100 02/02/19 16:40 55 16 30 02/02/19 16:30 54 16 94/64 (74) 100 02/02/19 16:15 55 16 94/68 (77) 100 02/02/19 16:00 56 16 93/63 (73) 100 02/02/19 16:00 30 02/02/19 16:00 Mechanical Ventilator 02/02/19 16:00 16 Mechanical Ventilator 30 Intake and Output 02/03/19 02/04/19 19:00 07:00 Intake Total 1540.22426 ml 1955.75 ml Output Total 465 ml 936 ml Balance 1075.07886 ml 1019.75 ml Intake Free Water 100 ml 100 ml IV Total 960.96625 ml 1315.75 ml Tube Feeding 450 ml 540 ml Other 30 ml Output Urine Total 465 ml 936 ml # Bowel Movements 2 Labs Test 02/02/19 04:45 02/02/19 11:35 02/03/19 05:23 02/03/19 14:30 White Blood Count 19.1 K/UL (4.8-10.8) 15.7 K/UL (4.8-10.8) Red Blood Count 3.77 M/UL (4.70-6.10) 3.35 M/UL (4.70-6.10) Hemoglobin 11.4 G/DL (14.2-18.0) 10.1 G/DL (14.2-18.0) Hematocrit 37.5 % (42.0-52.0) 33.0 % (42.0-52.0) Mean Corpuscular Volume 99 FL (80-99) 98 FL (80-99) Mean Corpuscular Hemoglobin 30.2 PG (27.0-31.0) 30.2 PG (27.0-31.0) Mean Corpuscular Hemoglobin Concent 30.4 G/DL (32.0-36.0) 30.7 G/DL (32.0-36.0) Red Cell Distribution Width 15.3 % (11.6-14.8) 15.1 % (11.6-14.8) Platelet Count 119 K/UL (150-450) 101 K/UL (150-450) Mean Platelet Volume 6.7 FL (6.5-10.1) 7.8 FL (6.5-10.1) Neutrophils (%) (Auto) % (45.0-75.0) % (45.0-75.0) Lymphocytes (%) (Auto) % (20.0-45.0) % (20.0-45.0) Monocytes (%) (Auto) % (1.0-10.0) % (1.0-10.0) Eosinophils (%) (Auto) % (0.0-3.0) % (0.0-3.0) Basophils (%) (Auto) % (0.0-2.0) % (0.0-2.0) Differential Total Cells Counted 100 100 Neutrophils % (Manual) 91 % (45-75) 93 % (45-75) Lymphocytes % (Manual) 4 % (20-45) 1 % (20-45) Monocytes % (Manual) 5 % (1-10) 6 % (1-10) Eosinophils % (Manual) 0 % (0-3) 0 % (0-3) Basophils % (Manual) 0 % (0-2) 0 % (0-2) Band Neutrophils 0 % (0-8) 0 % (0-8) Platelet Estimate Decreased Decreased Platelet Morphology Normal Normal Hypochromasia 1+ 1+ Anisocytosis 1+ 1+ Sodium Level 152 MMOL/L (136-145) 152 MMOL/L (136-145) Potassium Level 4.2 MMOL/L (3.5-5.1) 4.0 MMOL/L (3.5-5.1) Chloride Level 117 MMOL/L (98-107) 117 MMOL/L (98-107) Carbon Dioxide Level 30 MMOL/L (21-32) 33 MMOL/L (21-32) Anion Gap 5 mmol/L (5-15) 2 mmol/L (5-15) Blood Urea Nitrogen 31 mg/dL (7-18) 32 mg/dL (7-18) Creatinine 0.8 MG/DL (0.55-1.30) 0.9 MG/DL (0.55-1.30) Estimat Glomerular Filtration Rate mL/min (>60) mL/min (>60) Glucose Level 111 MG/DL (74-106) 132 MG/DL (74-106) Calcium Level 9.2 MG/DL (8.5-10.1) 8.8 MG/DL (8.5-10.1) Arterial Blood pH 7.226 (7.350-7.450) Arterial Blood Partial Pressure CO2 72.6 mmHg (35.0-45.0) Arterial Blood Partial Pressure O2 55.2 mmHg (75.0-100.0) Arterial Blood HCO3 29.4 mmol/L (22.0-26.0) Arterial Blood Oxygen Saturation 82.1 % (95-100) Arterial Blood Base Excess 0.2 (-2-2) Delon Test Positive Urine Color Pale yellow Urine Appearance Clear Urine pH 5 (4.5-8.0) Urine Specific [place] 1.020 (1.005-1.035) Urine Protein 2+ (NEGATIVE) Urine Glucose (UA) Negative (NEGATIVE) Urine Ketones Negative (NEGATIVE) Urine Blood Negative (NEGATIVE) Urine Nitrite Negative (NEGATIVE) Urine Bilirubin Negative (NEGATIVE) Urine Urobilinogen Normal MG/DL (0.0-1.0) Urine Leukocyte Esterase Negative (NEGATIVE) Urine RBC 2-4 /HPF (0 - 0) Urine WBC 0-2 /HPF (0 - 0) Urine Squamous Epithelial Cells None /LPF (NONE/OCC) Urine Calcium Oxalate Crystals Moderate /LPF (NONE) Urine Bacteria Occasional /HPF (NONE) Urine Mucus Few /LPF (NONE/OCC) Urine Random Sodium 46 mmol/L (20-110) Test 02/04/19 03:40 02/04/19 04:00 02/04/19 14:25 White Blood Count 19.6 K/UL (4.8-10.8) Red Blood Count 3.63 M/UL (4.70-6.10) Hemoglobin 10.9 G/DL (14.2-18.0) Hematocrit 35.3 % (42.0-52.0) Mean Corpuscular Volume 97 FL (80-99) Mean Corpuscular Hemoglobin 30.1 PG (27.0-31.0) Mean Corpuscular Hemoglobin Concent 30.9 G/DL (32.0-36.0) Red Cell Distribution Width 14.9 % (11.6-14.8) Platelet Count 133 K/UL (150-450) Mean Platelet Volume 7.0 FL (6.5-10.1) Neutrophils (%) (Auto) % (45.0-75.0) Lymphocytes (%) (Auto) % (20.0-45.0) Monocytes (%) (Auto) % (1.0-10.0) Eosinophils (%) (Auto) % (0.0-3.0) Basophils (%) (Auto) % (0.0-2.0) Differential Total Cells Counted 100 Neutrophils % (Manual) 96 % (45-75) Lymphocytes % (Manual) 1 % (20-45) Monocytes % (Manual) 3 % (1-10) Eosinophils % (Manual) 0 % (0-3) Basophils % (Manual) 0 % (0-2) Band Neutrophils 0 % (0-8) Platelet Estimate Decreased Platelet Morphology Normal Anisocytosis 1+ Sodium Level 146 MMOL/L (136-145) Potassium Level 3.7 MMOL/L (3.5-5.1) Chloride Level 111 MMOL/L (98-107) Carbon Dioxide Level 32 MMOL/L (21-32) Anion Gap 3 mmol/L (5-15) Blood Urea Nitrogen 32 mg/dL (7-18) Creatinine 0.8 MG/DL (0.55-1.30) Estimat Glomerular Filtration Rate mL/min (>60) Glucose Level 106 MG/DL (74-106) Hemoglobin A1c 5.7 % (4.3-6.0) Uric Acid 2.7 MG/DL (2.6-7.2) Calcium Level 8.7 MG/DL (8.5-10.1) Phosphorus Level 3.7 MG/DL (2.5-4.9) Magnesium Level 1.5 MG/DL (1.8-2.4) Iron Level 47 ug/dL (50-175) Total Iron Binding Capacity 152 ug/dL (250-450) Percent Iron Saturation 31 % (15-50) Unsaturated Iron Binding 105 ug/dL (112-346) Ferritin 293 NG/ML (8-388) Total Bilirubin 0.7 MG/DL (0.2-1.0) Gamma Glutamyl Transpeptidase 36 U/L (5-85) Aspartate Amino Transf (AST/SGOT) 21 U/L (15-37) Alanine Aminotransferase (ALT/SGPT) 56 U/L (12-78) Alkaline Phosphatase 50 U/L (46-116) Ammonia 14 umol/L (11-32) Total Creatine Kinase 170 U/L (26-308) Troponin I 0.037 ng/mL (0.000-0.056) C-Reactive Protein, Quantitative 2.3 mg/dL (0.00-0.90) Pro-B-Type Natriuretic Peptide 390 pg/mL (0-125) Total Protein 5.8 G/DL (6.4-8.2) Albumin 2.6 G/DL (3.4-5.0) Globulin 3.2 g/dL Albumin/Globulin Ratio 0.8 (1.0-2.7) Triglycerides Level 92 MG/DL (30-150) Cholesterol Level 239 MG/DL (< 200) LDL Cholesterol 147 mg/dL (<100) HDL Cholesterol 74 MG/DL (40-60) Cholesterol/HDL Ratio 3.2 (3.3-4.4) Vitamin B12 Level 875 PG/ML (193-986) Folate 16.2 NG/ML (8.6-58.9) Thyroid Stimulating Hormone (TSH) 1.510 uiU/mL (0.358-3.740) Stool Occult Blood Negative (NEGATIVE) Arterial Blood pH 7.372 (7.350-7.450) Arterial Blood Partial Pressure CO2 50.3 mmHg (35.0-45.0) Arterial Blood Partial Pressure O2 77.7 mmHg (75.0-100.0) Arterial Blood HCO3 28.6 mmol/L (22.0-26.0) Arterial Blood Oxygen Saturation 95.3 % (95-100) Arterial Blood Base Excess 2.6 (-2-2) Delon Test Positive Height (Feet): 5 Height (Inches): 10.00 Weight (Pounds): 160 Objective General Appearance: sedated on ventilator Head: normocephalic, atraumatic Neck: supple ++ NG Respiratory: generally reduced bs + VENT Cardiovascular: tachycardia, HS1, HS2, RRR Gastrointestinal: non tender, soft Musculoskeletal: normal inspection Neurologic: sedated on ventilator Skin: no rash, palpation normal Conrado Morel MD Feb 04, 2019 15:56
--- NOTE | 2019-02-04 16:15 | NUR ---
NURSE NOTES: Patient lying in bed in semi-fowlers position with eyes closed. Patient breathing fast at this time at 28 breathes per minute. Patient showing increased work of breathing with RASS score of +2. Patient placed back on mechanical ventilator setting of AC 16, tidal volume 500, FiO2 30%, and PEEP 5. Patient fentanyl drip increased to 150mcg/hr at this time to help with pain management and to help calm him. Blood pressure 172/86, temp 98.6, HR 85 in sinus rhythm, RR 17, SpO2 100%. NGT of the right nares that is patent, asymptomatic, and verified with aspiration and auscultation at this time. Tube feeding of vital AF continues to run at 55mL/hr at this time with no residual. Patient still showing pitting edema of the upper and lower extremities +3 and nonpitting edema of the scrotum. Right internal jugular triple lumen catheter remains patent, asymptomatic, and dressing intact at this time. Saenz remains patent and in draining about 100mL/hr of clear yellow urine. Patient bed in low position with bed alarm on and call light in reach at this time. Will continue to monitor sedation level and work of breathing.
[2019-02-04] MEDS ORDERED: HydrALAZINE 25mg tab ORAL PRN (17:00)
--- NOTE | 2019-02-04 18:00 | NUR ---
NURSE NOTES: Patient blood pressure 182/64. Patient's blood pressure fluctuates rapidly from 180 systolic to 130 systolic. Will continue to monitor and administer PRN if blood pressure remains elevated. Patient HR 88, SPO2 100% on AC 16, TV 500, FIO2 40% and PEEP 5. Patient frequently bites on the ET tube. Patient reminded not to bite on the tube. Rass score -1 on fentanyl 200mcg/hr at this time. Will continue to monitor and titrate fentanyl as needed per protocol. Bed in low position with bed alarm on and call light in reach at this time.
--- NOTE | 2019-02-04 19:25 | NUR ---
HAND-OFF: Report given to GENNY Mejia. Blood presure 129/58 at this time. Endorsed to monitor and follow up. Patient RASS score -2 at this time on 250mcg/hr. Addendum: 02/04/19 at 1940 by Beverly Lira RN Report given to GENNY Cox.
--- NOTE | 2019-02-04 19:30 | NUR ---
NURSE NOTES: Reeived pt orally intubated sedated with Fentanyl drip at 250mcg/min to keep RASS Score -1-2. SB 50s to NSR bp stable afebrile . Bilateral soft wrist restraints on for safety to avoid self extubation. Both arms with 3-4+ edema. RT arm Wheeping with fluids. Scrotal edema was noted, Saenz to gravity with lg amt of light merced yellow urine. Pt also tolerated NGT fdg no residuals. Monitor I and O. Monitor lytes.. Central line RT IJ with drsg dry and intact. Site atraumatic. Pt has skin tear bilateral Rt and left sheen covered with optifoam drg. Will continue to monitor.
[2019-02-04] MEDS: Dyna-Hex 2% Top Sol 2oz TOPIC SCH (19:55)
[2019-02-04] MEDS: Miralax 17gm pkt GT SCH (21:00)
--- NOTE | 2019-02-04 21:15 | Infectious Diseases Prog Note ---
Assessment/Plan Problems: (1) Aspiration pneumonia Assessment & Plan: due to cardiac arrest, with enterobacter cloacea, continue zosyn empirically for 10 days . aspiration precaution . (2) Leukocytosis Assessment & Plan: partially due to steroids , with no evidence of sepsis, and negative blood culture x2 so far is negative , repeated CXR ruled out aspiration or new infiltrates , still concern about aspiration after two codes blue . sputum culture grew Enterobacter cloacae , continue zosyn for 10 days . taper steroids (3) Acute exacerbation of chronic obstructive pulmonary disease (COPD) Assessment & Plan: continue doxycycline for five days only , and nebulizer treatment as per pulmonary (4) Cardiac arrest Assessment & Plan: etiology ? cardiology eval to rule out cardiac sources and neurology eval to evaluate his brain condition and to rule out anoxic brain injury (5) Chronic hypercapnic respiratory failure Assessment & Plan: S/P cardiac arrest , S/P intubation, monitor in ICU, pulmonary is following Subjective ROS Limited/Unobtainable: Yes Allergies: Coded Allergies: No Known Allergies (Unverified , 06/05/18) Subjective He is still intubated on mechanical ventilation, awake and responsive today , still failing weaning trials , not febrile. Objective Vital Signs Last 24 Hour Vital Signs Date Time Temp Pulse Resp B/P (MAP) Pulse Ox O2 Delivery O2 Flow Rate FiO2 02/04/19 19:00 71 20 183/66 (105) 100 02/04/19 19:00 24 Mechanical Ventilator 30 02/04/19 18:48 90 18 30 02/04/19 18:30 80 15 186/75 (112) 100 02/04/19 18:30 20 Mechanical Ventilator 30 02/04/19 18:00 68 16 131/66 (87) 100 02/04/19 18:00 16 Mechanical Ventilator 30 02/04/19 17:45 20 Mechanical Ventilator 30 02/04/19 17:45 63 16 153/60 (91) 100 02/04/19 17:30 65 16 123/63 (83) 100 02/04/19 17:30 16 Mechanical Ventilator 30 02/04/19 17:15 82 17 190/94 (126) 100 02/04/19 17:15 20 Mechanical Ventilator 30 02/04/19 17:00 71 16 140/60 (86) 100 02/04/19 17:00 16 Mechanical Ventilator 30 02/04/19 16:46 92 18 30 02/04/19 16:45 26 Mechanical Ventilator 30 02/04/19 16:45 80 19 161/83 (109) 100 02/04/19 16:30 89 16 184/98 (126) 100 02/04/19 16:30 24 Mechanical Ventilator 30 02/04/19 16:15 30 02/04/19 16:15 28 Mechanical Ventilator 30 02/04/19 16:15 84 18 172/86 (114) 100 02/04/19 16:01 90 02/04/19 16:00 30 02/04/19 16:00 98.6 89 14 149/115 (126) 100 02/04/19 16:00 16 Mechanical Ventilator 40 02/04/19 16:00 Mechanical Ventilator 02/04/19 15:00 92 16 180/91 (120) 100 02/04/19 15:00 16 Mechanical Ventilator 40 02/04/19 14:50 87 18 30 02/04/19 14:00 88 15 173/82 (112) 100 02/04/19 14:00 19 Mechanical Ventilator 40 02/04/19 13:30 86 15 179/73 (108) 100 02/04/19 13:30 87 16 179/73 (108) 100 02/04/19 13:30 19 Mechanical Ventilator 40 02/04/19 13:00 95 17 184/85 (118) 100 02/04/19 13:00 16 Mechanical Ventilator 40 02/04/19 12:45 40 02/04/19 12:45 86 16 189/70 (109) 100 02/04/19 12:45 30 02/04/19 12:45 16 Mechanical Ventilator 40 02/04/19 12:36 93 18 40 02/04/19 12:30 96 18 171/96 (121) 100 02/04/19 12:30 16 Mechanical Ventilator 40 02/04/19 12:15 97 20 180/86 (117) 100 02/04/19 12:15 16 Mechanical Ventilator 40 02/04/19 12:09 98.1 97 21 196/87 (123) 100 02/04/19 12:00 95 02/04/19 12:00 16 Mechanical Ventilator 40 02/04/19 12:00 40 02/04/19 12:00 81 17 148/87 (107) 100 02/04/19 12:00 Mechanical Ventilator 02/04/19 11:45 73 16 135/78 (97) 100 02/04/19 11:45 16 Mechanical Ventilator 40 02/04/19 11:30 97 21 180/79 (112) 86 02/04/19 11:30 16 Mechanical Ventilator 40 02/04/19 11:16 85 17 208/69 (115) 100 02/04/19 11:15 16 Mechanical Ventilator 40 02/04/19 11:00 16 Mechanical Ventilator 40 02/04/19 11:00 84 16 180/78 (112) 97 02/04/19 10:48 64 16 40 02/04/19 10:45 16 Mechanical Ventilator 40 02/04/19 10:45 77 16 186/160 (169) 100 02/04/19 10:30 63 16 147/82 (103) 100 02/04/19 10:30 16 Mechanical Ventilator 40 02/04/19 10:00 16 Mechanical Ventilator 40 02/04/19 10:00 62 16 118/71 (87) 100 02/04/19 09:56 61 118/71 02/04/19 09:30 70 16 168/151 (157) 99 02/04/19 09:00 88 17 182/85 (117) 100 02/04/19 09:00 16 Mechanical Ventilator 40 02/04/19 08:51 92 18 40 02/04/19 08:30 83 17 192/94 (126) 100 02/04/19 08:00 102 02/04/19 08:00 Mechanical Ventilator 02/04/19 08:00 16 Mechanical Ventilator 40 02/04/19 08:00 40 02/04/19 08:00 97.7 73 16 199/85 (123) 100 02/04/19 07:41 17 Mechanical Ventilator 40 02/04/19 07:30 70 16 153/67 (95) 100 02/04/19 07:14 58 16 40 02/04/19 07:00 16 Mechanical Ventilator 02/04/19 07:00 62 16 158/66 (96) 98 02/04/19 06:30 60 16 160/78 (105) 100 02/04/19 06:00 16 Mechanical Ventilator 02/04/19 06:00 57 16 146/72 (96) 100 02/04/19 05:30 60 13 124/62 (82) 100 02/04/19 05:02 74 16 30 02/04/19 05:00 62 14 152/64 (93) 100 02/04/19 05:00 16 Mechanical Ventilator 02/04/19 04:30 70 16 174/65 (101) 100 02/04/19 04:00 Mechanical Ventilator 02/04/19 04:00 97.8 64 16 115/66 (82) 100 02/04/19 04:00 16 Mechanical Ventilator 02/04/19 04:00 40 02/04/19 04:00 94 02/04/19 03:30 90 17 102/56 (71) 100 02/04/19 03:12 16 Mechanical Ventilator 02/04/19 03:00 101 17 219/115 (149) 100 02/04/19 03:00 16 Mechanical Ventilator 02/04/19 02:52 96 18 30 02/04/19 02:30 101 17 211/89 (129) 100 02/04/19 02:00 91 16 192/132 (152) 100 02/04/19 02:00 16 Mechanical Ventilator 02/04/19 01:30 65 16 125/72 (89) 100 02/04/19 01:08 89 16 30 02/04/19 01:00 16 Mechanical Ventilator 02/04/19 01:00 64 16 115/66 (82) 100 02/04/19 00:30 82 16 177/143 (154) 100 02/04/19 00:00 Mechanical Ventilator 02/04/19 00:00 60 02/04/19 00:00 97.7 69 16 180/130 (147) 100 02/04/19 00:00 16 Mechanical Ventilator 02/04/19 00:00 40 02/03/19 23:30 68 16 153/114 (127) 100 02/03/19 23:11 77 17 30 02/03/19 23:00 59 16 140/71 (94) 100 02/03/19 23:00 16 Mechanical Ventilator 02/03/19 22:30 59 16 113/80 (91) 100 02/03/19 22:00 16 Mechanical Ventilator 02/03/19 22:00 61 16 114/66 (82) 100 02/03/19 21:30 63 16 114/66 (82) 100 02/03/19 21:29 74 16 30 Height (Feet): 5 Height (Inches): 10.00 Weight (Pounds): 160 General Appearance: WD/WN, no acute distress HEENT: normocephalic, atraumatic, anicteric, mucous membranes moist, PERRL, no JVD Respiratory/Chest: chest wall non-tender, no respiratory distress, no accessory muscle use, decreased breath sounds, crackles/rales Cardiovascular: normal peripheral pulses, normal rate, regular rhythm, no gallop/murmur, no JVD Abdomen: normal bowel sounds, soft, non tender, no organomegaly, non distended , no mass, no scars Genitourinary: normal external genitalia Extremities: no cyanosis, no clubbing Skin: no rash, no lesions Neurologic/Psychiatric: alert, responsive Lymphatic: no neck adenopathy, no groin adenopathy Musculoskeletal: normal muscle bulk Laboratory Tests Test 02/04/19 03:40 02/04/19 04:00 02/04/19 14:25 White Blood Count 19.6 K/UL (4.8-10.8) H Red Blood Count 3.63 M/UL (4.70-6.10) L Hemoglobin 10.9 G/DL (14.2-18.0) L Hematocrit 35.3 % (42.0-52.0) L Mean Corpuscular Volume 97 FL (80-99) Mean Corpuscular Hemoglobin 30.1 PG (27.0-31.0) Mean Corpuscular Hemoglobin Concent 30.9 G/DL (32.0-36.0) L Red Cell Distribution Width 14.9 % (11.6-14.8) H Platelet Count 133 K/UL (150-450) L Mean Platelet Volume 7.0 FL (6.5-10.1) Neutrophils (%) (Auto) % (45.0-75.0) Lymphocytes (%) (Auto) % (20.0-45.0) Monocytes (%) (Auto) % (1.0-10.0) Eosinophils (%) (Auto) % (0.0-3.0) Basophils (%) (Auto) % (0.0-2.0) Differential Total Cells Counted 100 Neutrophils % (Manual) 96 % (45-75) H Lymphocytes % (Manual) 1 % (20-45) L Monocytes % (Manual) 3 % (1-10) Eosinophils % (Manual) 0 % (0-3) Basophils % (Manual) 0 % (0-2) Band Neutrophils 0 % (0-8) Platelet Estimate Decreased L Platelet Morphology Normal Anisocytosis 1+ Sodium Level 146 MMOL/L (136-145) H Potassium Level 3.7 MMOL/L (3.5-5.1) Chloride Level 111 MMOL/L (98-107) H Carbon Dioxide Level 32 MMOL/L (21-32) Anion Gap 3 mmol/L (5-15) L Blood Urea Nitrogen 32 mg/dL (7-18) H Creatinine 0.8 MG/DL (0.55-1.30) Estimat Glomerular Filtration Rate mL/min (>60) Glucose Level 106 MG/DL (74-106) Hemoglobin A1c 5.7 % (4.3-6.0) Uric Acid 2.7 MG/DL (2.6-7.2) Calcium Level 8.7 MG/DL (8.5-10.1) Phosphorus Level 3.7 MG/DL (2.5-4.9) Magnesium Level 1.5 MG/DL (1.8-2.4) L Iron Level 47 ug/dL (50-175) L Total Iron Binding Capacity 152 ug/dL (250-450) L Percent Iron Saturation 31 % (15-50) Unsaturated Iron Binding 105 ug/dL (112-346) L Ferritin 293 NG/ML (8-388) Total Bilirubin 0.7 MG/DL (0.2-1.0) Gamma Glutamyl Transpeptidase 36 U/L (5-85) Aspartate Amino Transf (AST/SGOT) 21 U/L (15-37) Alanine Aminotransferase (ALT/SGPT) 56 U/L (12-78) Alkaline Phosphatase 50 U/L (46-116) Ammonia 14 umol/L (11-32) Total Creatine Kinase 170 U/L (26-308) Troponin I 0.037 ng/mL (0.000-0.056) C-Reactive Protein, Quantitative 2.3 mg/dL (0.00-0.90) H Pro-B-Type Natriuretic Peptide 390 pg/mL (0-125) H Total Protein 5.8 G/DL (6.4-8.2) L Albumin 2.6 G/DL (3.4-5.0) L Globulin 3.2 g/dL Albumin/Globulin Ratio 0.8 (1.0-2.7) L Triglycerides Level 92 MG/DL (30-150) Cholesterol Level 239 MG/DL (< 200) H LDL Cholesterol 147 mg/dL (<100) H HDL Cholesterol 74 MG/DL (40-60) H Cholesterol/HDL Ratio 3.2 (3.3-4.4) L Vitamin B12 Level 875 PG/ML (193-986) Folate 16.2 NG/ML (8.6-58.9) Thyroid Stimulating Hormone (TSH) 1.510 uiU/mL (0.358-3.740) Stool Occult Blood Negative (NEGATIVE) Arterial Blood pH 7.372 (7.350-7.450) Arterial Blood Partial Pressure CO2 50.3 mmHg (35.0-45.0) H Arterial Blood Partial Pressure O2 77.7 mmHg (75.0-100.0) Arterial Blood HCO3 28.6 mmol/L (22.0-26.0) H Arterial Blood Oxygen Saturation 95.3 % (95-100) Arterial Blood Base Excess 2.6 (-2-2) H Delon Test Positive Current Medications Medications (Trade) Dose Ordered Sig/Brittani Route PRN Reason Start Time Stop Time Status Last Admin Dose Admin Acetaminophen (Tylenol) 650 mg Q4H PRN NG FOR MILD PAIN 01/26/19 10:15 02/25/19 10:14 Amlodipine Besylate (Norvasc) 5 mg DAILY NG 02/04/19 09:15 03/06/19 09:14 02/04/19 09:56 Chlorhexidine Gluconate (Renetta-Hex 2%) 1 applic DAILY@2000 TOPIC 01/27/19 20:00 02/26/19 19:59 02/04/19 19:55 Dextrose 1,000 ml @ 75 mls/hr [id number] IV 02/03/19 12:00 03/05/19 11:59 02/04/19 14:40 Dextrose (Dextrose 50%) 25 ml Q30M PRN IV Hypoglycemia 01/26/19 10:30 02/25/19 10:29 Dextrose (Dextrose 50%) 50 ml Q30M PRN IV Hypoglycemia 01/26/19 10:30 02/25/19 10:29 Docusate Sodium (Colace) 100 mg BID NG 02/02/19 18:00 03/04/19 17:59 02/04/19 08:43 Doxycycline Hyclate 100 mg/ Dextrose 110 ml @ 110 mls/hr Q12HR IV 01/26/19 11:00 02/04/19 23:59 02/04/19 08:43 Enoxaparin Sodium (Lovenox) 40 mg DAILY SUBQ 01/31/19 09:00 03/02/19 08:59 02/04/19 08:46 Fentanyl Citrate 2500 mcg/Sodium Chloride 250 ml @ 0 mls/hr Q24H IV 02/02/19 12:00 02/09/19 11:59 02/04/19 07:41 Hydralazine HCl (Apresoline) 25 mg Q6H PRN ORAL For High Blood Pressure 02/04/19 17:00 03/06/19 16:59 Insulin Aspart (NovoLOG) Q6HR SUBQ 01/26/19 12:00 02/25/19 11:59 02/04/19 17:51 Lorazepam (Ativan 2mg/ml 1ml) 1 mg Q4H PRN IV AGITATION / SEIZURE 01/30/19 15:00 02/06/19 14:59 02/02/19 21:31 Methylprednisolone Sodium Succinate (Solu-MEDROL) 60 mg EVERY 12 HOURS IVP 01/29/19 21:00 02/28/19 20:59 02/04/19 08:43 Pantoprazole (Protonix) 40 mg Q12HR IVP 02/03/19 21:00 02/25/19 10:59 02/04/19 08:43 Piperacillin Sod/ Tazobactam Sod 3.375 gm/Sodium Chloride 110 ml @ 27.5 mls/hr EVERY 8 HOURS IVPB 01/27/19 20:00 02/06/19 23:59 02/04/19 14:40 Polyethylene Glycol (Miralax) 17 gm BEDTIME GT 02/01/19 21:00 03/03/19 20:59 02/03/19 21:10 [place] Orlando M.D. Feb 04, 2019 21:15
--- NOTE | 2019-02-04 21:21 | NUR ---
NURSE NOTES: Miralax meds not given due to pts diarrhea
--- NOTE | 2019-02-04 22:45 | NUR ---
NURSE NOTES: Decrease Fentanyl drip down to 200mcg/min to achieve RASS core -2.
[2019-02-05] VITALS (60 sets, daily range): BP systolic 81–213; BP diastolic 38–134
--- NOTE | 2019-02-05 | NUR ---
NURSE NOTES:REsting well at this time with vss, pt on Sinus Bradycardia but asymptomatic. Fentanyl drip at 150 mcg/min at this time.
--- NOTE | 2019-02-05 02:00 | NUR ---
NURSE NOTES: Pt suddenly was seen extremely agitated and attempting to get up and attempted to pull ETT- Fentanyl drip was increased up to 200mcg/min by pharmacist in chargeGENNY Cardoso, but pt was still agitated then was increased up to 250mcg/min.
[2019-02-05] MEDS: LORazepam Inj 2mg/ml 1ml IV PRN ×2 (03:23→22:50)
--- NOTE | 2019-02-05 03:23 | NUR ---
NURSE NOTES: Ativan 1mg ivp was given due to extreme agitation.
--- NOTE | 2019-02-05 04:00 | NUR ---
NURSE NOTES: Kept NPO for weaning determination. Pt had period of bp 80-90 when asleep and goes up whenever he is awake., otherwise no resp distress noted.
--- NOTE | 2019-02-05 04:30 | NUR ---
NURSE NOTES:Pt had xi lg soft blackish yellow stool. Complete bath with bed changed done.
[2019-02-05] MEDS: Piperacillin/Tazobactam 3.375 GM in NS 110 ML IVPB SCH ×3 (05:55→21:43)
[2019-02-05] MEDS: NovoLOG Insulin Flexpen SUBQ SCH ×4 (05:56→23:34)
--- NOTE | 2019-02-05 07:00 | NUR ---
RESPIRATORY NOTES: Received Patient on Vent settings ACVC 16, VT 500, Fio2 30%, PEEP +5. Patient currently intubated with 8.0 ETT at 25 cm lip line, secured with anchorfast. Patient awake and slightly agitated. Breath sounds are bilateral diminished throughout both lung [place]. Suctioned small amount of clear secretions Q2 and PRN. Vent plugged into red outlet. Alarms are on and audible. Will continue to monitor throughout the day.
--- NOTE | 2019-02-05 07:20 | NUR ---
RESPIRATORY NOTES: Weaning trial passed. Weaning started at 0720. Placed on PS+12 PEEP +5 FIO2 30%. Will continue to monitor.
--- NOTE | 2019-02-05 07:22 | NUR ---
HAND-OFF: Report given to Beverly Lira RN.
--- NOTE | 2019-02-05 07:23 | NUR ---
NURSE NOTES: Received patient from GENNY Cox. Patient sleeping at this time with no sign of acute distress. Patient easily aroused at this time on fentanyl drip at 100mcg/hr. Patient blood pressure 115/56, HR 52, SpO2 100%, Temp 97.9, and RR 16. Patient has ET tube size 8 with 25cm at the lip line and is currently on weaning trial on CPAP with pressure support of 12, FiO2 28%, and PEEP 5. Patient tolerating with no sign of acute distress. Will continue to monitor and notify Dr White if patient continues to do well on weaning trial. Patient has a right nares nasogastric tube that is patent, asymptomatic, verified with auscultation and aspiration, and clamped at this time for weaning trial. Patient has tube feeding order for Vital AF with 55mL/hr goal. Will resume feeding after weaning trial if patient is not extubated. Patient has a right internal jugular triple lumen catheter that is patent, asymptomatic, dressing changed on 02/01, and running fentanyl drip at 100mcg/hr with RASS score of -1 (due to weaning trial) and D5W at 75mL/hr. Patient has a go for urine retention that is patent and draining at this time. Patient has scattered skin tear on upper and lower extremities. Patient has pitting +3 edema on the upper extremities. Non-pitting edema noted of the abdomen and scrotum. Pitting +2 edema noted on the bilateral lower extremities. Patient did not have labs drawn today. Will follow up with MD when he rounds on the patient. Patient bed in low position with bed alarm on and call light in reach at this time. Will continue to monitor sedation level and respiratory effort at this time.
[2019-02-05] MEDS: fentaNYL Citrate 2,500 MCG in NS 200 ML IV SCH (08:39)
[2019-02-05] MEDS: Docusate 100mg tablet NG SCH ×2 (08:39→17:44)
[2019-02-05] MEDS: Pantoprazole Inj IVP SCH ×2 (08:39→21:18)
[2019-02-05] MEDS: Solu-MEDROL 125mg Inj IVP SCH ×2 (08:39→21:18)
--- NOTE | 2019-02-05 08:45 | NUR ---
RESPIRATORY NOTES: Ended weaning at 0845 due to lack of spontaneous effort. RR dropped to 8 BPM, patient also has bradycardia with a HR of 48 BPM. RN Beverly aware.
--- NOTE | 2019-02-05 08:52 | NUR ---
NURSE NOTES: Fentanyl turned off at this time. Patient has become difficult to arouse with RASS of -3. Patient opens eyes to deep pain but moved minimally in response to light pain. Patient HR low in the 40s-50s at this time. Patient placed back on AC 16, tidal volume 500, FiO2 30%, and PEEP 5 until he is more awake. Will continue to monitor and resume weaning when patient more awake. Sedation completely turned off at this time. HR 54, blood pressure 1l17/57, RR 16, and SpO2 100%. Will continue to monitor.
[2019-02-05 09:13] LABS: HEMATOCRIT 29.4 % (42.0-52.0); HEMOGLOBIN 9.3 G/DL (14.2-18.0); MEAN CORPUSCULAR VOLUME 96 FL (80-99); PLATELET COUNT 110 K/UL (150-450); RED BLOOD COUNT 3.06 M/UL (4.70-6.10); RED CELL DISTRIBUTION WIDTH 14.7 % (11.6-14.8); WHITE BLOOD COUNT 18.3 K/UL (4.8-10.8)
[2019-02-05 09:24] LABS: ANION GAP 1 mmol/L (5-15); BLOOD UREA NITROGEN 27 mg/dL (7-18); CARBON DIOXIDE 36 MMOL/L (21-32); CHLORIDE 107 MMOL/L (98-107); CREATININE 0.7 MG/DL (0.55-1.30); POTASSIUM 3.4 MMOL/L (3.5-5.1); SODIUM 144 MMOL/L (136-145)
[2019-02-05] MEDS: Enoxaparin 40mg Inj SUBQ SCH (09:52)
--- NOTE | 2019-02-05 10:00 | NUR ---
NURSE NOTES: Patient restless at this time. Fentanyl drip has been off for about an hour. Patient alert and agitated with RASS of +2. Fentanyl resumed at 50mcg/hr at this time. Will follow up with respiratory therapist to resume weaning at this time. Patient opens eyes, tracks, and follows some commands. Patient fighting the vent and not synchronizing with it. Will monitor patient and observe if he does better on CPAP with pressure support of 12 while he is weaning. Blood pressure 167/134, HR 65, SpO2 100%. Will continue to monitor and titrate fentanyl per protocol.
--- NOTE | 2019-02-05 10:30 | NUR ---
NURSE NOTES: Patient sedated with RASS score of -2 at this time but the patient needs to be weaned from the ventilator. Reduced fentanyl to 40mcg/hr at this time. Will continue to monitor and titrate fentanyl per protocol. Blood pressure 154/66, HR 75, SpO2 100%, and RR 16 on AC 16, tidal volume 500, FiO2 30%, and PEEP 5. Will follow up with respiratory therapist to wean patient when appropriate.
--- NOTE | 2019-02-05 10:43 | NUR ---
RESPIRATORY NOTES: Attempting to wean patient again because sedation was lowered. Placed on PS +12 PEEP +5 FIO2 30%. Will continue to monitor patient.
--- NOTE | 2019-02-05 10:45 | NUR ---
GUEST RELATIONS REPRESENTATIVEFILLER BLENDER SI: LEUKOCYTOSIS, RESP FAILURE ETT/VENT DEPENDENT VS: BP: 84/50 HR: 58 RR 16 02 Sat 100% (MechVent 30) T: 98.2 WBC 18.3 HGB 9.3 HCT 29.4 POTASSIUM 3.4 CARBON DIOXIDE 36 ANION GAP 1 BUN 27 CALCIUM 8.0 MAGNESIUM 1.7 IS: LOVENOX SUBQ SOLU-MEDROL IVP FENTANYL IV PROTONIX IVP NOVOLOG SUBQ PIPERACILLIN IVPB DEXTROSE IV ATIVAN IV DYNAHEX TOPIC ICU STATUS
--- NOTE | 2019-02-05 10:53 | General Progress Note ---
Assessment/Plan Status: stable Assessment/Plan: s: Intubated. Vent setting reviewed O: Easily arousal, Not following the command PHYSICAL EXAMINATION: GENERAL: An elderly male, lying in bed, intubated on mechanical ventilation, not in acute distress. HEENT: Normocephalic and atraumatic. Pupils slightly responsive to light. Unable to assess oral mucosa with E-tube in place. NECK: Supple. No lymphadenopathy. CARDIOVASCULAR: He is tachycardic. S1, S2 normal. No murmur can be heard. LUNGS: Diminished breathing sounds at the bases. No wheezing or rhonchi. Normal breathing effort. Mechanically ventilated. ABDOMEN: Soft, nontender, and nondistended. Normal bowel sounds. No hepatosplenomegaly or ascites. No organomegaly. EXTREMITIES: No edema or cyanosis. labs: dated Jan 28 reviewed IMAGING: Chest x-ray dated February 01 is negative for any pneumothorax. Meds: reviewed and reconciled ASSESSMENT AND PLAN: 1. Vent dependent respiratory failure. 2. Sepsis- Gram negative HCA PNA 3. Chronic obstructive pulmonary disease, end-stage, oxygen-dependent. 3. Cardiopulmonary arrest, status post resuscitation x2. 4. Hypertension. 5. Abnormal blood sugar. 6. Anemia. 7. Abn Trop: likely secondary to #3 7. GI and DVT prophylaxis. PLAN OF CARE: Current Antibiotic management Restart Lovenox, will monitor plt count Weaning protocol , defer to pulmonary Improving Sodium level Notes from Nephrology reviewed Subjective Allergies: Coded Allergies: No Known Allergies (Unverified , 06/05/18) Objective Last 24 Hour Vital Signs Date Time Temp Pulse Resp B/P (MAP) Pulse Ox O2 Delivery O2 Flow Rate FiO2 02/05/19 10:42 64 16 30 30 02/05/19 10:30 16 Mechanical Ventilator 30 02/05/19 10:15 16 Mechanical Ventilator 30 02/05/19 10:00 24 Mechanical Ventilator 30 02/05/19 09:30 55 16 107/41 (63) 100 02/05/19 09:00 56 16 107/55 (72) 100 02/05/19 08:51 100 02/05/19 08:51 48 16 30 02/05/19 08:45 16 Mechanical Ventilator 30 02/05/19 08:39 49 107/57 02/05/19 08:39 16 Mechanical Ventilator 30 02/05/19 08:30 53 15 107/57 (74) 100 8/20/19 08:00 30 02/05/19 08:00 16 Mechanical Ventilator 30 02/05/19 08:00 Mechanical Ventilator 02/05/19 08:00 56 02/05/19 08:00 97.9 52 15 113/54 (73) 100 02/05/19 07:30 53 15 115/56 (75) 100 02/05/19 07:23 50 16 30 30 02/05/19 07:21 63 20 100 Mechanical Ventilator 30 02/05/19 07:00 18 Mechanical Ventilator 30 02/05/19 07:00 63 18 110/54 (72) 100 02/05/19 06:30 64 18 142/68 (92) 100 02/05/19 06:00 16 Mechanical Ventilator 30 02/05/19 06:00 60 16 130/46 (74) 100 02/05/19 05:30 55 16 81/46 (58) 100 02/05/19 05:00 57 16 85/38 (54) 100 02/05/19 05:00 18 Mechanical Ventilator 30 02/05/19 04:50 62 16 30 02/05/19 04:30 58 16 95/51 (66) 100 02/05/19 04:00 58 02/05/19 04:00 18 Mechanical Ventilator 02/05/19 04:00 30 02/05/19 04:00 Mechanical Ventilator 02/05/19 04:00 98.2 58 16 84/50 (61) 100 02/05/19 03:30 62 16 93/57 (69) 100 02/05/19 03:00 65 16 93/53 (66) 100 02/05/19 03:00 18 Mechanical Ventilator 30 02/05/19 02:39 60 16 30 02/05/19 02:30 20 Mechanical Ventilator 30 02/05/19 02:30 90 16 142/50 (80) 100 02/05/19 02:00 81 16 133/46 (75) 100 02/05/19 02:00 21 Mechanical Ventilator 30 02/05/19 01:30 50 16 100/58 (72) 100 02/05/19 01:00 50 16 105/52 (69) 100 02/05/19 01:00 16 Mechanical Ventilator 30 02/05/19 00:42 58 16 30 02/05/19 00:30 53 16 101/52 (68) 100 02/05/19 00:00 16 Mechanical Ventilator 30 02/05/19 00:00 98.6 59 16 105/60 (75) 100 02/05/19 00:00 30 02/05/19 00:00 65 02/05/19 00:00 Mechanical Ventilator 02/04/19 23:30 55 16 100/55 (70) 100 02/04/19 23:00 54 16 91/55 (67) 100 02/04/19 23:00 18 Mechanical Ventilator 30 02/04/19 22:40 16 Mechanical Ventilator 30 02/04/19 22:40 55 16 30 02/04/19 22:30 54 16 91/52 (65) 100 02/04/19 22:00 55 16 109/91 (97) 100 02/04/19 22:00 18 Mechanical Ventilator 30 02/04/19 21:30 55 16 118/56 (76) 100 02/04/19 21:00 57 16 112/56 (74) 100 02/04/19 21:00 16 Mechanical Ventilator 30 02/04/19 20:57 56 16 30 02/04/19 20:30 61 16 157/61 (93) 100 02/04/19 20:00 16 Mechanical Ventilator 30 02/04/19 20:00 Mechanical Ventilator 02/04/19 20:00 30 02/04/19 20:00 61 02/04/19 20:00 98.4 79 16 129/56 (80) 100 02/04/19 19:00 71 20 183/66 (105) 100 02/04/19 19:00 24 Mechanical Ventilator 30 02/04/19 18:48 90 18 30 02/04/19 18:30 80 15 186/75 (112) 100 02/04/19 18:30 20 Mechanical Ventilator 30 02/04/19 18:00 68 16 131/66 (87) 100 02/04/19 18:00 16 Mechanical Ventilator 30 02/04/19 17:45 20 Mechanical Ventilator 30 02/04/19 17:45 63 16 153/60 (91) 100 02/04/19 17:30 65 16 123/63 (83) 100 02/04/19 17:30 16 Mechanical Ventilator 30 02/04/19 17:15 82 17 190/94 (126) 100 02/04/19 17:15 20 Mechanical Ventilator 30 02/04/19 17:00 71 16 140/60 (86) 100 02/04/19 17:00 16 Mechanical Ventilator 30 02/04/19 16:46 92 18 30 02/04/19 16:45 26 Mechanical Ventilator 30 02/04/19 16:45 80 19 161/83 (109) 100 02/04/19 16:30 89 16 184/98 (126) 100 02/04/19 16:30 24 Mechanical Ventilator 30 02/04/19 16:15 30 02/04/19 16:15 28 Mechanical Ventilator 30 02/04/19 16:15 84 18 172/86 (114) 100 02/04/19 16:01 90 02/04/19 16:00 30 02/04/19 16:00 98.6 89 14 149/115 (126) 100 02/04/19 16:00 16 Mechanical Ventilator 40 02/04/19 16:00 Mechanical Ventilator 02/04/19 15:00 92 16 180/91 (120) 100 02/04/19 15:00 16 Mechanical Ventilator 40 02/04/19 14:50 87 18 30 02/04/19 14:00 88 15 173/82 (112) 100 02/04/19 14:00 19 Mechanical Ventilator 40 02/04/19 13:30 86 15 179/73 (108) 100 02/04/19 13:30 87 16 179/73 (108) 100 02/04/19 13:30 19 Mechanical Ventilator 40 02/04/19 13:00 95 17 184/85 (118) 100 02/04/19 13:00 16 Mechanical Ventilator 40 02/04/19 12:45 40 02/04/19 12:45 86 16 189/70 (109) 100 02/04/19 12:45 30 02/04/19 12:45 16 Mechanical Ventilator 40 02/04/19 12:36 93 18 40 02/04/19 12:30 96 18 171/96 (121) 100 02/04/19 12:30 16 Mechanical Ventilator 40 02/04/19 12:15 97 20 180/86 (117) 100 02/04/19 12:15 16 Mechanical Ventilator 40 02/04/19 12:09 98.1 97 21 196/87 (123) 100 02/04/19 12:00 95 02/04/19 12:00 16 Mechanical Ventilator 40 02/04/19 12:00 40 02/04/19 12:00 81 17 148/87 (107) 100 02/04/19 12:00 Mechanical Ventilator 02/04/19 11:45 73 16 135/78 (97) 100 02/04/19 11:45 16 Mechanical Ventilator 40 02/04/19 11:30 97 21 180/79 (112) 86 02/04/19 11:30 16 Mechanical Ventilator 40 02/04/19 11:16 85 17 208/69 (115) 100 02/04/19 11:15 16 Mechanical Ventilator 40 02/04/19 11:00 16 Mechanical Ventilator 40 02/04/19 11:00 84 16 180/78 (112) 97 Intake and Output 02/04/19 02/05/19 19:00 07:00 Intake Total 2386.875 ml 1617.5 ml Output Total 1551 ml 1240 ml Balance 835.875 ml 377.5 ml Intake Free Water 50 ml 60 ml IV Total 1796.875 ml 1197.5 ml Tube Feeding 540 ml 360 ml Output Urine Total 1551 ml 1240 ml # Bowel Movements 2 4 Laboratory Tests 02/04/19 14:25: Arterial Blood pH 7.372, Arterial Blood Partial Pressure CO2 50.3H, Arterial Blood Partial Pressure O2 77.7, Arterial Blood HCO3 28.6H, Arterial Blood Oxygen Saturation 95.3, Arterial Blood Base Excess 2.6H, Delon Test Positive 02/05/19 08:36: White Blood Count 18.3H, Red Blood Count 3.06L, Hemoglobin 9.3L, Hematocrit 29.4L, Mean Corpuscular Volume 96, Mean Corpuscular Hemoglobin 30.2, Mean Corpuscular Hemoglobin Concent 31.5L, Red Cell Distribution Width 14.7, Platelet Count 110L, Mean Platelet Volume 8.4, Neutrophils (%) (Auto) , Lymphocytes (%) (Auto) , Monocytes (%) (Auto) , Eosinophils (%) (Auto) , Basophils (%) (Auto) , Differential Total Cells Counted 100, Neutrophils % ( Manual) 92H, Lymphocytes % (Manual) 3L, Monocytes % (Manual) 5, Eosinophils % ( Manual) 0, Basophils % (Manual) 0, Band Neutrophils 0, Platelet Estimate DecreasedL, Platelet Morphology Normal, Hypochromasia 1+, Anisocytosis 1+, Sodium Level 144, Potassium Level 3.4L, Chloride Level 107, Carbon Dioxide Level 36H, Anion Gap 1L, Blood Urea Nitrogen 27H, Creatinine 0.7, Estimat Glomerular Filtration Rate , Glucose Level 92, Calcium Level 8.0L, Magnesium Level 1.7L Height (Feet): 5 Height (Inches): 10.00 Weight (Pounds): 165 Brianne Henry MD Feb 05, 2019 10:53
--- NOTE | 2019-02-05 12:00 | NUR ---
NURSE NOTES: Patient easily aroused at this time on fentanyl drip just increased to 60mcg/hr due to agitation. Patient blood pressure 205/107, HR 92, SpO2 100%, Temp 98.4, and RR 17. Patient has ET tube size 8 with 25cm at the lip line and is currently on weaning trial on CPAP with pressure support of 12, FiO2 28%, and PEEP 5. Patient tolerating with no sign of acute distress. Will continue to monitor and notify Dr White regarding ABG result during weaning trial. right nares nasogastric tube remains patent, asymptomatic, verified with auscultation and aspiration, and clamped at this time for weaning trial. Patient has tube feeding order for Vital AF with 55mL/hr goal. Will resume feeding after weaning trial if patient is not extubated. Patient has a right internal jugular triple lumen catheter that is patent, asymptomatic, dressing changed on 02/01, and running fentanyl drip at 60mcg/hr and D5W at 75mL/hr. Patient has a go for urine retention that is patent and draining at this time. Patient has scattered skin tear on upper and lower extremities. Patient continues to have pitting +3 edema on the upper extremities. Non-pitting edema noted on the abdomen and scrotum. Pitting +2 edema noted on the bilateral lower extremities. Patient had low potassium and magnesium labs this morning. Dr Salmon ordered 40mEq IV KCL and 4g magnesium IV. 3 of 4 bags given. Patient bed in low position with bed alarm on and call light in reach at this time. Will continue to monitor sedation level and respiratory effort at this time. Patient cleaned, repositioned, and oral care performed at this time.
--- NOTE | 2019-02-05 12:37 | Nephrology Progress Note ---
Assessment/Plan Problem List: (1) Cardiac arrest (2) Prerenal azotemia (3) Hypernatremia (4) Hypoalbuminemia (5) HTN (hypertension) Assessment Pre renal Azotemia due to - Dehydration- - High Protein catabolic state as result of Doxy and steroids HyperNatremia due to free water deficit HypoAlbuminemia Plan Sugg: add Norvasc D5W IV fluid Avoid Nephrotoxics Monitor lytes per consultants Subjective ROS Limited/Unobtainable: Yes Objective Objective Last 24 Hour Vital Signs Date Time Temp Pulse Resp B/P (MAP) Pulse Ox O2 Delivery O2 Flow Rate FiO2 02/05/19 12:15 16 Mechanical Ventilator 30 02/05/19 11:15 19 Mechanical Ventilator 30 02/05/19 10:42 64 16 30 30 02/05/19 10:30 16 Mechanical Ventilator 30 02/05/19 10:15 16 Mechanical Ventilator 30 02/05/19 10:00 24 Mechanical Ventilator 30 02/05/19 09:30 55 16 107/41 (63) 100 02/05/19 09:00 56 16 107/55 (72) 100 02/05/19 08:51 100 02/05/19 08:51 48 16 30 02/05/19 08:45 16 Mechanical Ventilator 30 02/05/19 08:39 49 107/57 02/05/19 08:39 16 Mechanical Ventilator 30 02/05/19 08:30 53 15 107/57 (74) 100 02/05/19 08:00 30 02/05/19 08:00 16 Mechanical Ventilator 30 02/05/19 08:00 Mechanical Ventilator 02/05/19 08:00 56 02/05/19 08:00 97.9 52 15 113/54 (73) 100 02/05/19 07:30 53 15 115/56 (75) 100 02/05/19 07:23 50 16 30 30 02/05/19 07:21 63 20 100 Mechanical Ventilator 30 02/05/19 07:00 18 Mechanical Ventilator 30 02/05/19 07:00 63 18 110/54 (72) 100 02/05/19 06:30 64 18 142/68 (92) 100 02/05/19 06:00 16 Mechanical Ventilator 30 02/05/19 06:00 60 16 130/46 (74) 100 02/05/19 05:30 55 16 81/46 (58) 100 02/05/19 05:00 57 16 85/38 (54) 100 02/05/19 05:00 18 Mechanical Ventilator 30 02/05/19 04:50 62 16 30 02/05/19 04:30 58 16 95/51 (66) 100 02/05/19 04:00 58 02/05/19 04:00 18 Mechanical Ventilator 30 02/05/19 04:00 30 02/05/19 04:00 Mechanical Ventilator 02/05/19 04:00 98.2 58 16 84/50 (61) 100 02/05/19 03:30 62 16 93/57 (69) 100 02/05/19 03:00 65 16 93/53 (66) 100 02/05/19 03:00 18 Mechanical Ventilator 02/05/19 02:39 60 16 30 02/05/19 02:30 20 Mechanical Ventilator 02/05/19 02:30 90 16 142/50 (80) 100 02/05/19 02:00 81 16 133/46 (75) 100 02/05/19 02:00 21 Mechanical Ventilator 30 02/05/19 01:30 50 16 100/58 (72) 100 02/05/19 01:00 50 16 105/52 (69) 100 02/05/19 01:00 16 Mechanical Ventilator 30 02/05/19 00:42 58 16 30 02/05/19 00:30 53 16 101/52 (68) 100 02/05/19 00:00 16 Mechanical Ventilator 30 02/05/19 00:00 98.6 59 16 105/60 (75) 100 02/05/19 00:00 30 02/05/19 00:00 65 02/05/19 00:00 Mechanical Ventilator 02/04/19 23:30 55 16 100/55 (70) 100 02/04/19 23:00 54 16 91/55 (67) 100 02/04/19 23:00 18 Mechanical Ventilator 30 02/04/19 22:40 16 Mechanical Ventilator 30 02/04/19 22:40 55 16 30 02/04/19 22:30 54 16 91/52 (65) 100 02/04/19 22:00 55 16 109/91 (97) 100 02/04/19 22:00 18 Mechanical Ventilator 30 02/04/19 21:30 55 16 118/56 (76) 100 02/04/19 21:00 57 16 112/56 (74) 100 02/04/19 21:00 16 Mechanical Ventilator 30 02/04/19 20:57 56 16 30 02/04/19 20:30 61 16 157/61 (93) 100 02/04/19 20:00 16 Mechanical Ventilator 30 02/04/19 20:00 Mechanical Ventilator 02/04/19 20:00 30 02/04/19 20:00 61 02/04/19 20:00 98.4 79 16 129/56 (80) 100 02/04/19 19:00 71 20 183/66 (105) 100 02/04/19 19:00 24 Mechanical Ventilator 30 02/04/19 18:48 90 18 30 02/04/19 18:30 80 15 186/75 (112) 100 02/04/19 18:30 20 Mechanical Ventilator 30 02/04/19 18:00 68 16 131/66 (87) 100 02/04/19 18:00 16 Mechanical Ventilator 30 02/04/19 17:45 20 Mechanical Ventilator 30 02/04/19 17:45 63 16 153/60 (91) 100 02/04/19 17:30 65 16 123/63 (83) 100 02/04/19 17:30 16 Mechanical Ventilator 30 02/04/19 17:15 82 17 190/94 (126) 100 02/04/19 17:15 20 Mechanical Ventilator 30 02/04/19 17:00 71 16 140/60 (86) 100 02/04/19 17:00 16 Mechanical Ventilator 30 02/04/19 16:46 92 18 30 02/04/19 16:45 26 Mechanical Ventilator 30 02/04/19 16:45 80 19 161/83 (109) 100 02/04/19 16:30 89 16 184/98 (126) 100 02/04/19 16:30 24 Mechanical Ventilator 30 02/04/19 16:15 30 02/04/19 16:15 28 Mechanical Ventilator 30 02/04/19 16:15 84 18 172/86 (114) 100 02/04/19 16:01 90 02/04/19 16:00 30 02/04/19 16:00 98.6 89 14 149/115 (126) 100 02/04/19 16:00 16 Mechanical Ventilator 40 02/04/19 16:00 Mechanical Ventilator 02/04/19 15:00 92 16 180/91 (120) 100 02/04/19 15:00 16 Mechanical Ventilator 40 02/04/19 14:50 87 18 30 02/04/19 14:00 88 15 173/82 (112) 100 02/04/19 14:00 19 Mechanical Ventilator 40 02/04/19 13:30 86 15 179/73 (108) 100 02/04/19 13:30 87 16 179/73 (108) 100 02/04/19 13:30 19 Mechanical Ventilator 40 02/04/19 13:00 95 17 184/85 (118) 100 02/04/19 13:00 16 Mechanical Ventilator 40 02/04/19 12:45 40 02/04/19 12:45 86 16 189/70 (109) 100 02/04/19 12:45 30 02/04/19 12:45 16 Mechanical Ventilator 40 Intake and Output 02/04/19 02/05/19 19:00 07:00 Intake Total 2386.875 ml 1617.5 ml Output Total 1551 ml 1240 ml Balance 835.875 ml 377.5 ml Intake Free Water 50 ml 60 ml IV Total 1796.875 ml 1197.5 ml Tube Feeding 540 ml 360 ml Output Urine Total 1551 ml 1240 ml # Bowel Movements 2 4 Laboratory Tests 02/04/19 14:25: Arterial Blood pH 7.372, Arterial Blood Partial Pressure CO2 50.3H, Arterial Blood Partial Pressure O2 77.7, Arterial Blood HCO3 28.6H, Arterial Blood Oxygen Saturation 95.3, Arterial Blood Base Excess 2.6H, Delon Test Positive 02/05/19 08:36: White Blood Count 18.3H, Red Blood Count 3.06L, Hemoglobin 9.3L, Hematocrit 29.4L, Mean Corpuscular Volume 96, Mean Corpuscular Hemoglobin 30.2, Mean Corpuscular Hemoglobin Concent 31.5L, Red Cell Distribution Width 14.7, Platelet Count 110L, Mean Platelet Volume 8.4, Neutrophils (%) (Auto) , Lymphocytes (%) (Auto) , Monocytes (%) (Auto) , Eosinophils (%) (Auto) , Basophils (%) (Auto) , Differential Total Cells Counted 100, Neutrophils % ( Manual) 92H, Lymphocytes % (Manual) 3L, Monocytes % (Manual) 5, Eosinophils % ( Manual) 0, Basophils % (Manual) 0, Band Neutrophils 0, Platelet Estimate DecreasedL, Platelet Morphology Normal, Hypochromasia 1+, Anisocytosis 1+, Sodium Level 144, Potassium Level 3.4L, Chloride Level 107, Carbon Dioxide Level 36H, Anion Gap 1L, Blood Urea Nitrogen 27H, Creatinine 0.7, Estimat Glomerular Filtration Rate , Glucose Level 92, Calcium Level 8.0L, Magnesium Level 1.7L Height (Feet): 5 Height (Inches): 10.00 Weight (Pounds): 165 General Appearance: no apparent distress, other - on fentanyl Cardiovascular: normal rate Respiratory/Chest: decreased breath sounds Abdomen: soft Objective no change Felipe Salmon MD Feb 05, 2019 12:37
--- NOTE | 2019-02-05 14:00 | NUR ---
NURSE NOTES: Patient remains on weaning trial. ABG result reported to Dr White. He ordered for the ventilator setting to be changed to CPAP with pressure support of 10, PEEP 5, and FiO2 30%. Patient tolerating with no sign of acute distress. Blood pressure 178/91, HR 84, RR 17, and SpO2 100%. Patient bed in low position with bed alarm on and call light in reach at this time. Oral care and repositioning done at this time.
--- NOTE | 2019-02-05 14:05 | Pulmonolgy Critical Care Note ---
Critical Care - Asmt/Plan Assessment/Plan: Pulmonary Critical Care Progress Note HPI Patient is a 73 year olf man with previous history of COPD, CHF, HTN, DM admitted with extreme respiratory distress, intubated in the ED, subsequent Cardiac Arrest. Noted to have hypercapneic respiratory failure. Interactive today, improved ventilator requirements, tolerating CPAP 12 CT Head negative Allergies: No Known Allergies Past Medical History: COPD/Asthma, CHF, Hypertension, DM All Other Systems: limited Physical Exam Vital signs noted General Appearance: sedated on ventilator Head: normocephalic, atraumatic Eyes: bilateral eye PERRL, bilateral eye EOMI ENT: moist mm, no LN Neck: supple Respiratory: generally reduced BS, occasional wheeze Cardiovascular: tachycardia, HS1, HS2, RRR Gastrointestinal: non tender, soft Musculoskeletal: normal inspection Neurologic: sedated on ventilator Skin: no rash, palpation normal Impression: COPD exacerbation Hypercapneic respiratory failure S/p cardiac arrest in the ED CHF HTN Diabetes Plan Wean as tolerated Adjust FIO2 for sats 90-94% HHN Q4 IV Solumedrol Sedation PRN Sz management Monitor labs PPX IV Doxycycline DNR status Labs Test 01/26/19 05:45 White Blood Count 9.6 K/UL (4.8-10.8) Red Blood Count 4.57 M/UL (4.70-6.10) Hemoglobin 13.5 G/DL (14.2-18.0) Hematocrit 46.0 % (42.0-52.0) Mean Corpuscular Volume 101 FL (80-99) Mean Corpuscular Hemoglobin 29.6 PG (27.0-31.0) Mean Corpuscular Hemoglobin Concent 29.4 G/DL (32.0-36.0) Red Cell Distribution Width 15.2 % (11.6-14.8) Platelet Count 181 K/UL (150-450) Mean Platelet Volume 7.5 FL (6.5-10.1) Neutrophils (%) (Auto) 49.7 % (45.0-75.0) Lymphocytes (%) (Auto) 33.3 % (20.0-45.0) Monocytes (%) (Auto) 8.2 % (1.0-10.0) Eosinophils (%) (Auto) 8.2 % (0.0-3.0) Basophils (%) (Auto) 0.7 % (0.0-2.0) Lactic Acid Level 0.80 mmol/L (0.4-2.0) Chest X-Ray: No consolidation, no effusion, ETT tube 7cm, RIJ line good position Critical Care - Objective Last 24 Hour Vital Signs Date Time Temp Pulse Resp B/P (MAP) Pulse Ox O2 Delivery O2 Flow Rate FiO2 02/05/19 13:24 30 02/05/19 13:20 92 16 30 02/05/19 12:15 16 Mechanical Ventilator 30 02/05/19 11:15 19 Mechanical Ventilator 30 02/05/19 10:42 64 16 30 30 02/05/19 10:30 16 Mechanical Ventilator 30 02/05/19 10:15 16 Mechanical Ventilator 30 02/05/19 10:00 24 Mechanical Ventilator 30 02/05/19 09:30 55 16 107/41 (63) 100 02/05/19 09:00 56 16 107/55 (72) 100 02/05/19 08:51 100 02/05/19 08:51 48 16 30 02/05/19 08:45 16 Mechanical Ventilator 30 02/05/19 08:39 49 107/57 02/05/19 08:39 16 Mechanical Ventilator 30 02/05/19 08:30 53 15 107/57 (74) 100 02/05/19 08:00 30 02/05/19 08:00 16 Mechanical Ventilator 30 02/05/19 08:00 Mechanical Ventilator 02/05/19 08:00 56 02/05/19 08:00 97.9 52 15 113/54 (73) 100 02/05/19 07:30 53 15 115/56 (75) 100 02/05/19 07:23 50 16 30 30 02/05/19 07:21 63 20 100 Mechanical Ventilator 30 02/05/19 07:00 18 Mechanical Ventilator 30 02/05/19 07:00 63 18 110/54 (72) 100 02/05/19 06:30 64 18 142/68 (92) 100 02/05/19 06:00 16 Mechanical Ventilator 30 02/05/19 06:00 60 16 130/46 (74) 100 02/05/19 05:30 55 16 81/46 (58) 100 02/05/19 05:00 57 16 85/38 (54) 100 02/05/19 05:00 18 Mechanical Ventilator 30 02/05/19 04:50 62 16 30 02/05/19 04:30 58 16 95/51 (66) 100 02/05/19 04:00 58 02/05/19 04:00 18 Mechanical Ventilator 30 02/05/19 04:00 30 02/05/19 04:00 Mechanical Ventilator 02/05/19 04:00 98.2 58 16 84/50 (61) 100 02/05/19 03:30 62 16 93/57 (69) 100 02/05/19 03:00 65 16 93/53 (66) 100 02/05/19 03:00 18 Mechanical Ventilator 30 02/05/19 02:39 60 16 30 02/05/19 02:30 20 Mechanical Ventilator 30 02/05/19 02:30 90 16 142/50 (80) 100 02/05/19 02:00 81 16 133/46 (75) 100 02/05/19 02:00 21 Mechanical Ventilator 30 02/05/19 01:30 50 16 100/58 (72) 100 02/05/19 01:00 50 16 105/52 (69) 100 02/05/19 01:00 16 Mechanical Ventilator 30 02/05/19 00:42 58 16 30 02/05/19 00:30 53 16 101/52 (68) 100 02/05/19 00:00 16 Mechanical Ventilator 30 02/05/19 00:00 98.6 59 16 105/60 (75) 100 02/05/19 00:00 30 02/05/19 00:00 65 02/05/19 00:00 Mechanical Ventilator 02/04/19 23:30 55 16 100/55 (70) 100 02/04/19 23:00 54 16 91/55 (67) 100 02/04/19 23:00 18 Mechanical Ventilator 30 02/04/19 22:40 16 Mechanical Ventilator 30 02/04/19 22:40 55 16 30 02/04/19 22:30 54 16 91/52 (65) 100 02/04/19 22:00 55 16 109/91 (97) 100 02/04/19 22:00 18 Mechanical Ventilator 30 02/04/19 21:30 55 16 118/56 (76) 100 02/04/19 21:00 57 16 112/56 (74) 100 02/04/19 21:00 16 Mechanical Ventilator 30 02/04/19 20:57 56 16 30 02/04/19 20:30 61 16 157/61 (93) 100 02/04/19 20:00 16 Mechanical Ventilator 30 02/04/19 20:00 Mechanical Ventilator 02/04/19 20:00 30 02/04/19 20:00 61 02/04/19 20:00 98.4 79 16 129/56 (80) 100 02/04/19 19:00 71 20 183/66 (105) 100 02/04/19 19:00 24 Mechanical Ventilator 30 02/04/19 18:48 90 18 30 02/04/19 18:30 80 15 186/75 (112) 100 02/04/19 18:30 20 Mechanical Ventilator 30 02/04/19 18:00 68 16 131/66 (87) 100 02/04/19 18:00 16 Mechanical Ventilator 30 02/04/19 17:45 20 Mechanical Ventilator 30 02/04/19 17:45 63 16 153/60 (91) 100 02/04/19 17:30 65 16 123/63 (83) 100 02/04/19 17:30 16 Mechanical Ventilator 30 02/04/19 17:15 82 17 190/94 (126) 100 02/04/19 17:15 20 Mechanical Ventilator 30 02/04/19 17:00 71 16 140/60 (86) 100 02/04/19 17:00 16 Mechanical Ventilator 30 02/04/19 16:46 92 18 30 02/04/19 16:45 26 Mechanical Ventilator 30 02/04/19 16:45 80 19 161/83 (109) 100 02/04/19 16:30 89 16 184/98 (126) 100 02/04/19 16:30 24 Mechanical Ventilator 30 02/04/19 16:15 30 02/04/19 16:15 28 Mechanical Ventilator 30 02/04/19 16:15 84 18 172/86 (114) 100 02/04/19 16:01 90 02/04/19 16:00 30 02/04/19 16:00 98.6 89 14 149/115 (126) 100 02/04/19 16:00 16 Mechanical Ventilator 40 02/04/19 16:00 Mechanical Ventilator 02/04/19 15:00 92 16 180/91 (120) 100 02/04/19 15:00 16 Mechanical Ventilator 40 02/04/19 14:50 87 18 30 Accucheck: 113 Critical Care - Subjective ROS Limited/Unobtainable: No FI02: 30 Vent Support Breath Rate: 16 Vent Support Mode: CPAP Vent Tidal Volume: 500 Sputum Amount: Scant PEEP: 5.0 PIP: 18 Tube Feeding Amount: 0 I&O: Intake and Output 02/04/19 02/05/19 19:00 07:00 Intake Total 2386.875 ml 1617.5 ml Output Total 1551 ml 1240 ml Balance 835.875 ml 377.5 ml Intake Free Water 50 ml 60 ml IV Total 1796.875 ml 1197.5 ml Tube Feeding 540 ml 360 ml Output Urine Total 1551 ml 1240 ml # Bowel Movements 2 4 ET-Tube: 8.0 ET Position: 25 Johny White MD Feb 05, 2019 14:05
--- NOTE | 2019-02-05 14:13 | Hematology/Onc Progress Note ---
Assessment/Plan Assessment/Plan # Thrombocytopenia is likely due to underlying infection/sepsis v dic, reactive process --> hiv is neg, hepatitis is neg as well --> us of the abd from prior 2018 --> plt rend 140-->115-->105-->133-->110k --> okay for ppx as long as above 75k --> meds have been reviewed # Anemia of chronic disease, due to multifactorial causes --> anemia panel reviewed from earlier in admission and c/w acd --> hgb goal is >7 --> no hemolysis is seen --> smear has been reviewed # Leukocytosis/elevated white blood cell count, unspecified likely related to steroid meds --> have reviewed peripheral smear and bandemia/neutrophilia noted --> continue antibiotics if they have been started by ID team, zosyn --> monitor for resolution --> wbc trend 14-->18 # COPD exacerbation --> has been given steriods --> per id for aspiration prec on zosyn # Hypercapneic respiratory failure --> remains on vent --> sbt per pulm # S/p cardiac arrest in the ED # CHF # HTN # Diabetes # DNR status Time of note does not correspond to when patient was seen. Greatly appreciate consultation. Subjective HEENT: Denies: no symptoms, eye pain, blurred vision, tearing, double vision, ear pain, ear discharge, nose pain, nose congestion, throat pain, throat swelling, mouth pain, mouth swelling, other Cardiovascular: Denies: no symptoms, chest pain, edema, irregular heart rate, lightheadedness, palpitations, syncope, other Respiratory: Denies: no symptoms, cough, shortness of breath, SOB with excertion, SOB at rest, sputum, wheezing, other Gastrointestinal/Abdominal: Denies: no symptoms, abdomen distended, abdominal pain, black stools, tarry stools, blood in stool, constipated, diarrhea, difficulty swallowing, nausea, poor appetite, poor fluid intake, rectal bleeding , vomiting, other Neurologic/Psychiatric: Denies: no symptoms, anxiety, depressed, emotional problems, headache, numbness, paresthesia, pre-existing deficit, seizure, tingling, tremors, weakness, other Endocrine: Denies: no symptoms, excessive sweating, flushing, intolerance to cold, intolerance to heat, increased hunger, increased thirst, increased urine, unexplained weight gain, unexplained weight loss, other Allergies: Coded Allergies: No Known Allergies (Unverified , 06/05/18) Subjective 02/01: no events to report, plt is lower, weaning trial initiated with mack gray rn, hiv neg 02/04: icu, wbc elevated, on abx 02/05: remains on vent, fighting vent, on abx remains on lovenox, on steriods Objective Objective Current Medications Medications (Trade) Dose Ordered Sig/Brittani Route PRN Reason Start Time Stop Time Status Last Admin Dose Admin Acetaminophen (Tylenol) 650 mg Q4H PRN NG FOR MILD PAIN 01/26/19 10:15 02/25/19 10:14 Amlodipine Besylate (Norvasc) 5 mg DAILY NG 02/04/19 09:15 03/06/19 09:14 02/04/19 09:56 Chlorhexidine Gluconate (Renetta-Hex 2%) 1 applic DAILY@2000 TOPIC 01/27/19 20:00 02/26/19 19:59 02/04/19 19:55 Dextrose 1,000 ml @ 75 mls/hr [id number] IV 02/03/19 12:00 03/05/19 11:59 02/05/19 04:48 Dextrose (Dextrose 50%) 25 ml Q30M PRN IV Hypoglycemia 01/26/19 10:30 02/25/19 10:29 Dextrose (Dextrose 50%) 50 ml Q30M PRN IV Hypoglycemia 01/26/19 10:30 02/25/19 10:29 Docusate Sodium (Colace) 100 mg BID NG 02/02/19 18:00 03/04/19 17:59 02/04/19 08:43 Enoxaparin Sodium (Lovenox) 40 mg DAILY SUBQ 01/31/19 09:00 03/02/19 08:59 02/05/19 09:52 Fentanyl Citrate 2500 mcg/Sodium Chloride 250 ml @ 0 mls/hr Q24H IV 02/02/19 12:00 02/09/19 11:59 02/05/19 08:39 Hydralazine HCl (Apresoline) 25 mg Q6H PRN ORAL For High Blood Pressure 02/04/19 17:00 03/06/19 16:59 Insulin Aspart (NovoLOG) Q6HR SUBQ 01/26/19 12:00 02/25/19 11:59 02/05/19 05:56 Lorazepam (Ativan 2mg/ml 1ml) 1 mg Q4H PRN IV AGITATION / SEIZURE 01/30/19 15:00 02/06/19 14:59 02/05/19 03:23 Magnesium Sulfate 100 ml @ 100 mls/hr Q1H IVPB 02/05/19 10:30 02/05/19 14:29 02/05/19 13:27 Methylprednisolone Sodium Succinate (Solu-MEDROL) 60 mg EVERY 12 HOURS IVP 01/29/19 21:00 02/28/19 20:59 02/05/19 08:39 Pantoprazole (Protonix) 40 mg Q12HR IVP 02/03/19 21:00 02/25/19 10:59 02/05/19 08:39 Piperacillin Sod/ Tazobactam Sod 3.375 gm/Sodium Chloride 110 ml @ 27.5 mls/hr EVERY 8 HOURS IVPB 01/27/19 20:00 02/07/19 19:59 02/05/19 05:55 Polyethylene Glycol (Miralax) 17 gm BEDTIME GT 02/01/19 21:00 03/03/19 20:59 02/03/19 21:10 Potassium Chloride 100 ml @ 100 mls/hr Q1HR IVPB 02/05/19 11:00 02/05/19 14:59 02/05/19 13:27 Last 24 Hour Vital Signs Date Time Temp Pulse Resp B/P (MAP) Pulse Ox O2 Delivery O2 Flow Rate FiO2 02/05/19 14:00 18 Mechanical Ventilator 30 02/05/19 13:30 16 Mechanical Ventilator 30 02/05/19 13:24 30 02/05/19 13:20 92 16 30 02/05/19 13:15 18 Mechanical Ventilator 30 02/05/19 13:00 16 Mechanical Ventilator 30 02/05/19 12:45 16 Mechanical Ventilator 30 02/05/19 12:30 16 Mechanical Ventilator 30 02/05/19 12:15 16 Mechanical Ventilator 30 02/05/19 12:00 19 Mechanical Ventilator 30 02/05/19 11:45 16 Mechanical Ventilator 30 02/05/19 11:30 16 Mechanical Ventilator 30 02/05/19 11:15 19 Mechanical Ventilator 30 02/05/19 11:00 16 Mechanical Ventilator 30 02/05/19 10:45 16 Mechanical Ventilator 30 02/05/19 10:42 64 16 30 30 02/05/19 10:30 16 Mechanical Ventilator 30 02/05/19 10:15 16 Mechanical Ventilator 30 02/05/19 10:00 24 Mechanical Ventilator 30 02/05/19 09:30 55 16 107/41 (63) 100 02/05/19 09:00 56 16 107/55 (72) 100 02/05/19 08:51 100 02/05/19 08:51 48 16 30 02/05/19 08:45 16 Mechanical Ventilator 30 02/05/19 08:39 49 107/57 02/05/19 08:39 16 Mechanical Ventilator 30 02/05/19 08:30 53 15 107/57 (74) 100 02/05/19 08:00 30 02/05/19 08:00 16 Mechanical Ventilator 30 02/05/19 08:00 Mechanical Ventilator 02/05/19 08:00 56 02/05/19 08:00 97.9 52 15 113/54 (73) 100 02/05/19 07:30 53 15 115/56 (75) 100 02/05/19 07:23 50 16 30 30 02/05/19 07:21 63 20 100 Mechanical Ventilator 30 02/05/19 07:00 18 Mechanical Ventilator 30 02/05/19 07:00 63 18 110/54 (72) 100 02/05/19 06:30 64 18 142/68 (92) 100 02/05/19 06:00 16 Mechanical Ventilator 30 02/05/19 06:00 60 16 130/46 (74) 100 02/05/19 05:30 55 16 81/46 (58) 100 02/05/19 05:00 57 16 85/38 (54) 100 02/05/19 05:00 18 Mechanical Ventilator 30 02/05/19 04:50 62 16 30 02/05/19 04:30 58 16 95/51 (66) 100 02/05/19 04:00 58 02/05/19 04:00 18 Mechanical Ventilator 30 02/05/19 04:00 30 02/05/19 04:00 Mechanical Ventilator 02/05/19 04:00 98.2 58 16 84/50 (61) 100 02/05/19 03:30 62 16 93/57 (69) 100 02/05/19 03:00 65 16 93/53 (66) 100 02/05/19 03:00 18 Mechanical Ventilator 30 02/05/19 02:39 60 16 30 02/05/19 02:30 20 Mechanical Ventilator 30 02/05/19 02:30 90 16 142/50 (80) 100 02/05/19 02:00 81 16 133/46 (75) 100 02/05/19 02:00 21 Mechanical Ventilator 30 02/05/19 01:30 50 16 100/58 (72) 100 02/05/19 01:00 50 16 105/52 (69) 100 02/05/19 01:00 16 Mechanical Ventilator 30 02/05/19 00:42 58 16 30 02/05/19 00:30 53 16 101/52 (68) 100 02/05/19 00:00 16 Mechanical Ventilator 30 02/05/19 00:00 98.6 59 16 105/60 (75) 100 02/05/19 00:00 30 02/05/19 00:00 65 02/05/19 00:00 Mechanical Ventilator 02/04/19 23:30 55 16 100/55 (70) 100 02/04/19 23:00 54 16 91/55 (67) 100 02/04/19 23:00 18 Mechanical Ventilator 30 02/04/19 22:40 16 Mechanical Ventilator 30 02/04/19 22:40 55 16 30 02/04/19 22:30 54 16 91/52 (65) 100 02/04/19 22:00 55 16 109/91 (97) 100 02/04/19 22:00 18 Mechanical Ventilator 30 02/04/19 21:30 55 16 118/56 (76) 100 02/04/19 21:00 57 16 112/56 (74) 100 02/04/19 21:00 16 Mechanical Ventilator 30 02/04/19 20:57 56 16 30 02/04/19 20:30 61 16 157/61 (93) 100 02/04/19 20:00 16 Mechanical Ventilator 30 02/04/19 20:00 Mechanical Ventilator 02/04/19 20:00 30 02/04/19 20:00 61 02/04/19 20:00 98.4 79 16 129/56 (80) 100 02/04/19 19:00 71 20 183/66 (105) 100 02/04/19 19:00 24 Mechanical Ventilator 30 02/04/19 18:48 90 18 30 02/04/19 18:30 80 15 186/75 (112) 100 02/04/19 18:30 20 Mechanical Ventilator 30 02/04/19 18:00 68 16 131/66 (87) 100 02/04/19 18:00 16 Mechanical Ventilator 30 02/04/19 17:45 20 Mechanical Ventilator 30 02/04/19 17:45 63 16 153/60 (91) 100 02/04/19 17:30 65 16 123/63 (83) 100 02/04/19 17:30 16 Mechanical Ventilator 30 02/04/19 17:15 82 17 190/94 (126) 100 02/04/19 17:15 20 Mechanical Ventilator 30 02/04/19 17:00 71 16 140/60 (86) 100 02/04/19 17:00 16 Mechanical Ventilator 30 02/04/19 16:46 92 18 30 02/04/19 16:45 26 Mechanical Ventilator 30 02/04/19 16:45 80 19 161/83 (109) 100 02/04/19 16:30 89 16 184/98 (126) 100 02/04/19 16:30 24 Mechanical Ventilator 30 02/04/19 16:15 30 02/04/19 16:15 28 Mechanical Ventilator 30 02/04/19 16:15 84 18 172/86 (114) 100 02/04/19 16:01 90 02/04/19 16:00 30 02/04/19 16:00 98.6 89 14 149/115 (126) 100 02/04/19 16:00 16 Mechanical Ventilator 40 02/04/19 16:00 Mechanical Ventilator 02/04/19 15:00 92 16 180/91 (120) 100 02/04/19 15:00 16 Mechanical Ventilator 40 02/04/19 14:50 87 18 30 02/04/19 14:00 88 15 173/82 (112) 100 02/04/19 14:00 19 Mechanical Ventilator 40 02/04/19 13:30 86 15 179/73 (108) 100 02/04/19 13:30 87 16 179/73 (108) 100 02/04/19 13:30 19 Mechanical Ventilator 40 02/04/19 13:00 95 17 184/85 (118) 100 02/04/19 13:00 16 Mechanical Ventilator 40 02/04/19 12:45 40 02/04/19 12:45 86 16 189/70 (109) 100 02/04/19 12:45 30 02/04/19 12:45 16 Mechanical Ventilator 40 02/04/19 12:36 93 18 40 02/04/19 12:30 96 18 171/96 (121) 100 02/04/19 12:30 16 Mechanical Ventilator 40 02/04/19 12:15 97 20 180/86 (117) 100 02/04/19 12:15 16 Mechanical Ventilator 40 02/04/19 12:09 98.1 97 21 196/87 (123) 100 02/04/19 12:00 95 02/04/19 12:00 16 Mechanical Ventilator 40 02/04/19 12:00 40 02/04/19 12:00 81 17 148/87 (107) 100 02/04/19 12:00 Mechanical Ventilator 02/04/19 11:45 73 16 135/78 (97) 100 02/04/19 11:45 16 Mechanical Ventilator 40 02/04/19 11:30 97 21 180/79 (112) 86 02/04/19 11:30 16 Mechanical Ventilator 40 02/04/19 11:16 85 17 208/69 (115) 100 02/04/19 11:15 16 Mechanical Ventilator 40 02/04/19 11:00 16 Mechanical Ventilator 40 02/04/19 11:00 84 16 180/78 (112) 97 02/04/19 10:48 64 16 40 02/04/19 10:45 16 Mechanical Ventilator 40 02/04/19 10:45 77 16 186/160 (169) 100 02/04/19 10:30 63 16 147/82 (103) 100 02/04/19 10:30 16 Mechanical Ventilator 40 02/04/19 10:00 16 Mechanical Ventilator 40 02/04/19 10:00 62 16 118/71 (87) 100 02/04/19 09:56 61 118/71 02/04/19 09:30 70 16 168/151 (157) 99 02/04/19 09:00 88 17 182/85 (117) 100 02/04/19 09:00 16 Mechanical Ventilator 40 02/04/19 08:51 92 18 40 02/04/19 08:30 83 17 192/94 (126) 100 02/04/19 08:00 102 02/04/19 08:00 Mechanical Ventilator 02/04/19 08:00 16 Mechanical Ventilator 40 02/04/19 08:00 40 02/04/19 08:00 97.7 73 16 199/85 (123) 100 02/04/19 07:41 17 Mechanical Ventilator 40 02/04/19 07:30 70 16 153/67 (95) 100 02/04/19 07:14 58 16 40 02/04/19 07:00 16 Mechanical Ventilator 02/04/19 07:00 62 16 158/66 (96) 98 02/04/19 06:30 60 16 160/78 (105) 100 02/04/19 06:00 16 Mechanical Ventilator 02/04/19 06:00 57 16 146/72 (96) 100 02/04/19 05:30 60 13 124/62 (82) 100 02/04/19 05:02 74 16 30 02/04/19 05:00 62 14 152/64 (93) 100 02/04/19 05:00 16 Mechanical Ventilator 02/04/19 04:30 70 16 174/65 (101) 100 02/04/19 04:00 Mechanical Ventilator 02/04/19 04:00 97.8 64 16 115/66 (82) 100 02/04/19 04:00 16 Mechanical Ventilator 02/04/19 04:00 40 02/04/19 04:00 94 02/04/19 03:30 90 17 102/56 (71) 100 02/04/19 03:12 16 Mechanical Ventilator 02/04/19 03:00 101 17 219/115 (149) 100 02/04/19 03:00 16 Mechanical Ventilator 02/04/19 02:52 96 18 30 02/04/19 02:30 101 17 211/89 (129) 100 02/04/19 02:00 91 16 192/132 (152) 100 02/04/19 02:00 16 Mechanical Ventilator 02/04/19 01:30 65 16 125/72 (89) 100 02/04/19 01:08 89 16 30 02/04/19 01:00 16 Mechanical Ventilator 02/04/19 01:00 64 16 115/66 (82) 100 02/04/19 00:30 82 16 177/143 (154) 100 02/04/19 00:00 Mechanical Ventilator 02/04/19 00:00 60 02/04/19 00:00 97.7 69 16 180/130 (147) 100 02/04/19 00:00 16 Mechanical Ventilator 02/04/19 00:00 40 02/03/19 23:30 68 16 153/114 (127) 100 02/03/19 23:11 77 17 30 02/03/19 23:00 59 16 140/71 (94) 100 02/03/19 23:00 16 Mechanical Ventilator 02/03/19 22:30 59 16 113/80 (91) 100 02/03/19 22:00 16 Mechanical Ventilator 02/03/19 22:00 61 16 114/66 (82) 100 02/03/19 21:30 63 16 114/66 (82) 100 02/03/19 21:29 74 16 30 02/03/19 21:00 76 16 104/74 (84) 100 02/03/19 21:00 16 Mechanical Ventilator 02/03/19 20:30 60 16 117/79 (92) 100 02/03/19 20:00 40 02/03/19 20:00 Mechanical Ventilator 02/03/19 20:00 16 Mechanical Ventilator 02/03/19 20:00 97.5 60 16 115/65 (82) 100 02/03/19 20:00 62 02/03/19 19:30 60 16 148/87 (107) 100 02/03/19 19:05 77 16 30 02/03/19 19:05 16 Mechanical Ventilator 40 02/03/19 19:00 59 16 143/105 (118) 100 02/03/19 19:00 16 Mechanical Ventilator 40 02/03/19 18:30 54 16 105/64 (78) 100 02/03/19 18:00 16 Mechanical Ventilator 40 02/03/19 18:00 54 16 107/68 (81) 100 02/03/19 17:30 55 16 99/64 (76) 100 02/03/19 17:15 53 16 30 02/03/19 17:00 16 Mechanical Ventilator 40 02/03/19 17:00 55 16 116/63 (80) 100 02/03/19 16:30 53 16 96/68 (77) 100 02/03/19 16:00 53 02/03/19 16:00 16 Mechanical Ventilator 40 02/03/19 16:00 40 02/03/19 16:00 Mechanical Ventilator 02/03/19 16:00 99.0 53 16 105/67 (80) 100 02/03/19 15:33 59 16 30 02/03/19 15:30 56 16 106/72 (83) 100 02/03/19 15:00 16 Mechanical Ventilator 40 02/03/19 15:00 60 16 107/62 (77) 100 02/03/19 14:50 16 Mechanical Ventilator 40 02/03/19 14:45 16 Mechanical Ventilator 40 02/03/19 14:40 16 Mechanical Ventilator 40 02/03/19 14:35 16 Mechanical Ventilator 40 02/03/19 14:30 Mechanical Ventilator 40 02/03/19 14:30 58 16 85/66 (72) 100 Intake and Output 02/04/19 02/05/19 19:00 07:00 Intake Total 2386.875 ml 1617.5 ml Output Total 1551 ml 1240 ml Balance 835.875 ml 377.5 ml Intake Free Water 50 ml 60 ml IV Total 1796.875 ml 1197.5 ml Tube Feeding 540 ml 360 ml Output Urine Total 1551 ml 1240 ml # Bowel Movements 2 4 Labs Test 02/03/19 05:23 02/03/19 14:30 02/04/19 03:40 02/04/19 04:00 White Blood Count 15.7 K/UL (4.8-10.8) 19.6 K/UL (4.8-10.8) Red Blood Count 3.35 M/UL (4.70-6.10) 3.63 M/UL (4.70-6.10) Hemoglobin 10.1 G/DL (14.2-18.0) 10.9 G/DL (14.2-18.0) Hematocrit 33.0 % (42.0-52.0) 35.3 % (42.0-52.0) Mean Corpuscular Volume 98 FL (80-99) 97 FL (80-99) Mean Corpuscular Hemoglobin 30.2 PG (27.0-31.0) 30.1 PG (27.0-31.0) Mean Corpuscular Hemoglobin Concent 30.7 G/DL (32.0-36.0) 30.9 G/DL (32.0-36.0) Red Cell Distribution Width 15.1 % (11.6-14.8) 14.9 % (11.6-14.8) Platelet Count 101 K/UL (150-450) 133 K/UL (150-450) Mean Platelet Volume 7.8 FL (6.5-10.1) 7.0 FL (6.5-10.1) Neutrophils (%) (Auto) % (45.0-75.0) % (45.0-75.0) Lymphocytes (%) (Auto) % (20.0-45.0) % (20.0-45.0) Monocytes (%) (Auto) % (1.0-10.0) % (1.0-10.0) Eosinophils (%) (Auto) % (0.0-3.0) % (0.0-3.0) Basophils (%) (Auto) % (0.0-2.0) % (0.0-2.0) Differential Total Cells Counted 100 100 Neutrophils % (Manual) 93 % (45-75) 96 % (45-75) Lymphocytes % (Manual) 1 % (20-45) 1 % (20-45) Monocytes % (Manual) 6 % (1-10) 3 % (1-10) Eosinophils % (Manual) 0 % (0-3) 0 % (0-3) Basophils % (Manual) 0 % (0-2) 0 % (0-2) Band Neutrophils 0 % (0-8) 0 % (0-8) Platelet Estimate Decreased Decreased Platelet Morphology Normal Normal Hypochromasia 1+ Anisocytosis 1+ 1+ Sodium Level 152 MMOL/L (136-145) 146 MMOL/L (136-145) Potassium Level 4.0 MMOL/L (3.5-5.1) 3.7 MMOL/L (3.5-5.1) Chloride Level 117 MMOL/L (98-107) 111 MMOL/L (98-107) Carbon Dioxide Level 33 MMOL/L (21-32) 32 MMOL/L (21-32) Anion Gap 2 mmol/L (5-15) 3 mmol/L (5-15) Blood Urea Nitrogen 32 mg/dL (7-18) 32 mg/dL (7-18) Creatinine 0.9 MG/DL (0.55-1.30) 0.8 MG/DL (0.55-1.30) Estimat Glomerular Filtration Rate mL/min (>60) mL/min (>60) Glucose Level 132 MG/DL (74-106) 106 MG/DL (74-106) Calcium Level 8.8 MG/DL (8.5-10.1) 8.7 MG/DL (8.5-10.1) Urine Color Pale yellow Urine Appearance Clear Urine pH 5 (4.5-8.0) Urine Specific [place] 1.020 (1.005-1.035) Urine Protein 2+ (NEGATIVE) Urine Glucose (UA) Negative (NEGATIVE) Urine Ketones Negative (NEGATIVE) Urine Blood Negative (NEGATIVE) Urine Nitrite Negative (NEGATIVE) Urine Bilirubin Negative (NEGATIVE) Urine Urobilinogen Normal MG/DL (0.0-1.0) Urine Leukocyte Esterase Negative (NEGATIVE) Urine RBC 2-4 /HPF (0 - 0) Urine WBC 0-2 /HPF (0 - 0) Urine Squamous Epithelial Cells None /LPF (NONE/OCC) Urine Calcium Oxalate Crystals Moderate /LPF (NONE) Urine Bacteria Occasional /HPF (NONE) Urine Mucus Few /LPF (NONE/OCC) Urine Random Sodium 46 mmol/L (20-110) Hemoglobin A1c 5.7 % (4.3-6.0) Uric Acid 2.7 MG/DL (2.6-7.2) Phosphorus Level 3.7 MG/DL (2.5-4.9) Magnesium Level 1.5 MG/DL (1.8-2.4) Iron Level 47 ug/dL (50-175) Total Iron Binding Capacity 152 ug/dL (250-450) Percent Iron Saturation 31 % (15-50) Unsaturated Iron Binding 105 ug/dL (112-346) Ferritin 293 NG/ML (8-388) Total Bilirubin 0.7 MG/DL (0.2-1.0) Gamma Glutamyl Transpeptidase 36 U/L (5-85) Aspartate Amino Transf (AST/SGOT) 21 U/L (15-37) Alanine Aminotransferase (ALT/SGPT) 56 U/L (12-78) Alkaline Phosphatase 50 U/L (46-116) Ammonia 14 umol/L (11-32) Total Creatine Kinase 170 U/L (26-308) Troponin I 0.037 ng/mL (0.000-0.056) C-Reactive Protein, Quantitative 2.3 mg/dL (0.00-0.90) Pro-B-Type Natriuretic Peptide 390 pg/mL (0-125) Total Protein 5.8 G/DL (6.4-8.2) Albumin 2.6 G/DL (3.4-5.0) Globulin 3.2 g/dL Albumin/Globulin Ratio 0.8 (1.0-2.7) Triglycerides Level 92 MG/DL (30-150) Cholesterol Level 239 MG/DL (< 200) LDL Cholesterol 147 mg/dL (<100) HDL Cholesterol 74 MG/DL (40-60) Cholesterol/HDL Ratio 3.2 (3.3-4.4) Vitamin B12 Level 875 PG/ML (193-986) Folate 16.2 NG/ML (8.6-58.9) Thyroid Stimulating Hormone (TSH) 1.510 uiU/mL (0.358-3.740) Stool Occult Blood Negative (NEGATIVE) Test 02/04/19 14:25 02/05/19 08:36 02/05/19 12:45 Arterial Blood pH 7.372 (7.350-7.450) 7.403 (7.350-7.450) Arterial Blood Partial Pressure CO2 50.3 mmHg (35.0-45.0) 54.6 mmHg (35.0-45.0) Arterial Blood Partial Pressure O2 77.7 mmHg (75.0-100.0) 75.4 mmHg (75.0-100.0) Arterial Blood HCO3 28.6 mmol/L (22.0-26.0) 33.3 mmol/L (22.0-26.0) Arterial Blood Oxygen Saturation 95.3 % (95-100) 94.3 % (95-100) Arterial Blood Base Excess 2.6 (-2-2) 7.2 (-2-2) Delon Test Positive Positive White Blood Count 18.3 K/UL (4.8-10.8) Red Blood Count 3.06 M/UL (4.70-6.10) Hemoglobin 9.3 G/DL (14.2-18.0) Hematocrit 29.4 % (42.0-52.0) Mean Corpuscular Volume 96 FL (80-99) Mean Corpuscular Hemoglobin 30.2 PG (27.0-31.0) Mean Corpuscular Hemoglobin Concent 31.5 G/DL (32.0-36.0) Red Cell Distribution Width 14.7 % (11.6-14.8) Platelet Count 110 K/UL (150-450) Mean Platelet Volume 8.4 FL (6.5-10.1) Neutrophils (%) (Auto) % (45.0-75.0) Lymphocytes (%) (Auto) % (20.0-45.0) Monocytes (%) (Auto) % (1.0-10.0) Eosinophils (%) (Auto) % (0.0-3.0) Basophils (%) (Auto) % (0.0-2.0) Differential Total Cells Counted 100 Neutrophils % (Manual) 92 % (45-75) Lymphocytes % (Manual) 3 % (20-45) Monocytes % (Manual) 5 % (1-10) Eosinophils % (Manual) 0 % (0-3) Basophils % (Manual) 0 % (0-2) Band Neutrophils 0 % (0-8) Platelet Estimate Decreased Platelet Morphology Normal Hypochromasia 1+ Anisocytosis 1+ Sodium Level 144 MMOL/L (136-145) Potassium Level 3.4 MMOL/L (3.5-5.1) Chloride Level 107 MMOL/L (98-107) Carbon Dioxide Level 36 MMOL/L (21-32) Anion Gap 1 mmol/L (5-15) Blood Urea Nitrogen 27 mg/dL (7-18) Creatinine 0.7 MG/DL (0.55-1.30) Estimat Glomerular Filtration Rate mL/min (>60) Glucose Level 92 MG/DL (74-106) Calcium Level 8.0 MG/DL (8.5-10.1) Magnesium Level 1.7 MG/DL (1.8-2.4) Height (Feet): 5 Height (Inches): 10.00 Weight (Pounds): 165 Objective General Appearance: sedated on ventilator Head: normocephalic, atraumatic Neck: supple ++ NG Respiratory: generally reduced bs + VENT Cardiovascular: tachycardia, HS1, HS2, RRR Gastrointestinal: non tender, soft Musculoskeletal: normal inspection Neurologic: sedated on ventilator Skin: no rash, palpation normal Kleynberg,Conrado L. MD Feb 05, 2019 14:13
--- NOTE | 2019-02-05 16:00 | NUR ---
RESPIRATORY NOTES: Placed back onto ACVC settings per Beverly ROYAL.
--- NOTE | 2019-02-05 16:00 | NUR ---
NURSE NOTES: Patient extremely agitated at this time. Patient thrashing in the bed and fighting the ventilator. Patient fentanyl drip increased to 100mcg/hr at this time and patient placed back on ventilator setting of AC 16, tidal volume 500, FiO2 40%, and PEEP 5. Patient tolerating setting with RR 19 and SpO2 100%. Patient calmer at this time with sedation level of -[address] White reported that the patient will not be extubated today and weaning trial should be performed again tomorrow with pressure support 10. Patient blood pressure 213/89, HR 79, SpO2 100%, Temp 98.7, and RR 20. Right nares nasogastric tube remains patent, asymptomatic, verified with auscultation and aspiration, and running Vital AF at 45mL/hr at this time. Patient has a right internal jugular triple lumen catheter that is patent, asymptomatic, dressing changed on 02/01, and running fentanyl drip at 100mcg/hr and D5W at 75mL/hr. Saenz for urine retention remains patent and draining at this time. Patient continues to have pitting +3 edema on the upper extremities. Non-pitting edema noted on the abdomen and scrotum. Pitting +2 edema noted on the bilateral lower extremities. Patient bed in low position with bed alarm on and call light in reach at this time. Will continue to monitor sedation level and respiratory effort at this time and titrate fentanyl per protocol. Patient repositioned and oral care performed at this time.
[2019-02-05] MEDS ORDERED: NS 275ml ONE (17:52)
[2019-02-05] MEDS ORDERED: Tubing IV Secondary IV ONE (17:52)
--- NOTE | 2019-02-05 18:00 | NUR ---
NURSE NOTES: At 1730 patient had a bowel movement. Patient was cleaned and repositioned and fentanyl was increased to 130mcg/hr due to increased agitation with RASS score of +2. Patient was attempting to reach for and pull out ETT and was fitting against the ventilator and biting on the endotracheal tube. Patient is now attempting to kick his feet off of the bed and pull at/bite on endotracheal tube. Patient oxygen saturation also dropping to 89%. Fentanyl now increased to 160mcg/hr and bite block inserted to prevent patient form biting the tube. Patient blood pressure 154/86, HR 80, SPO2 100%, and RR 19. Patient repositioned at this time. Will continue to monitor sedation level and titrate fentanyl per protocol.
--- NOTE | 2019-02-05 19:13 | NUR ---
HAND-OFF: Report given to GENNY Cox. Patient calm with RASS score of -2 at this time on fentanyl drip 160mcg/hr. Patient was restless and trying to get out of bed at 1800. Sedation increased at that this time. Endorsed to follow up and continue to damian.
--- NOTE | 2019-02-05 19:27 | NUR ---
NURSE NOTES: Received pt orally intubated on ac mode, swedated with Fentanyl drip at 160mcg/min at this time.Bilateral soft wrist restrained on for safety to avoid self extubation. Sinus Bradycardia to NSR, Bp stable at this time. Tolerated Ngt fdg, no residuals HOB kept elevated . On aspiration precaution. Saenz to gravity with moderate amt of merced yellow urine. Monitor I and O. Monitor lytes. Bilateral sheen drsg dry and intact(skin tear) with pictures.Both arms 3-4+ edema still noted as well as scrotal edema . RT arm wheeping with fluid, elevated with pillow. Will continue to monitor.
[2019-02-05] MEDS: Dyna-Hex 2% Top Sol 2oz TOPIC SCH (20:10)
[2019-02-05] MEDS: Miralax 17gm pkt GT SCH (21:00)
--- NOTE | 2019-02-05 21:06 | NUR ---
NURSE NOTES:Pt on Sinus brdycardia 49/min bp 87/54-decrease Fentanyl drip to 100mcg/min.
--- NOTE | 2019-02-05 22:10 | Infectious Diseases Prog Note ---
Assessment/Plan Problems: (1) Aspiration pneumonia Assessment & Plan: due to cardiac arrest, with enterobacter cloacea, continue zosyn empirically for 10 days . aspiration precaution . EOT 02/06/19 (2) Leukocytosis Assessment & Plan: partially due to steroids , with no evidence of sepsis, and negative blood culture x2 so far is negative , repeated CXR ruled out aspiration or new infiltrates , still concern about aspiration after two codes blue . sputum culture grew Enterobacter cloacae , continue zosyn for 10 days . taper steroids (3) Acute exacerbation of chronic obstructive pulmonary disease (COPD) Assessment & Plan: continue doxycycline for five days only , and nebulizer treatment as per pulmonary (4) Cardiac arrest Assessment & Plan: etiology ? cardiology eval to rule out cardiac sources and neurology eval to evaluate his brain condition and to rule out anoxic brain injury (5) Chronic hypercapnic respiratory failure Assessment & Plan: S/P cardiac arrest , S/P intubation, monitor in ICU, pulmonary is following Subjective ROS Limited/Unobtainable: Yes Allergies: Coded Allergies: No Known Allergies (Unverified , 06/05/18) Subjective He is still intubated on mechanical ventilation, awake and responsive , on weaning trials , but still failing weaning trials , not febrile. Objective Vital Signs Last 24 Hour Vital Signs Date Time Temp Pulse Resp B/P (MAP) Pulse Ox O2 Delivery O2 Flow Rate FiO2 02/05/19 21:36 50 16 30 02/05/19 19:08 61 16 30 02/05/19 19:00 69 18 103/53 (70) 100 02/05/19 19:00 19 Mechanical Ventilator 30 02/05/19 18:45 19 Mechanical Ventilator 30 02/05/19 18:45 69 18 154/86 (108) 100 02/05/19 18:30 19 Mechanical Ventilator 30 02/05/19 18:30 69 18 154/86 (108) 100 02/05/19 18:15 76 16 150/90 (110) 100 02/05/19 18:15 20 Mechanical Ventilator 30 02/05/19 18:00 76 18 127/106 (113) 99 02/05/19 18:00 24 Mechanical Ventilator 30 02/05/19 18:00 80 16 127/90 (102) 100 02/05/19 17:45 18 Mechanical Ventilator 30 02/05/19 17:45 76 18 127/106 (113) 99 02/05/19 17:30 79 17 141/63 (89) 100 02/05/19 17:30 16 Mechanical Ventilator 30 02/05/19 17:15 19 Mechanical Ventilator 30 02/05/19 17:05 77 22 30 02/05/19 17:00 64 14 147/61 (89) 100 02/05/19 17:00 18 Mechanical Ventilator 30 02/05/19 16:45 18 Mechanical Ventilator 30 02/05/19 16:45 64 14 147/61 (89) 100 02/05/19 16:30 16 Mechanical Ventilator 30 02/05/19 16:30 73 19 139/78 (98) 100 02/05/19 16:29 183/97 02/05/19 16:15 75 21 143/85 (104) 100 02/05/19 16:15 18 Mechanical Ventilator 30 02/05/19 16:00 Mechanical Ventilator 02/05/19 16:00 30 02/05/19 16:00 94 02/05/19 16:00 24 Mechanical Ventilator 30 02/05/19 16:00 98.0 93 19 213/89 (130) 97 02/05/19 15:30 78 18 156/80 (105) 100 02/05/19 15:26 81 17 30 02/05/19 15:00 78 18 156/80 (105) 100 02/05/19 15:00 30 02/05/19 15:00 18 Mechanical Ventilator 30 02/05/19 14:30 83 16 183/97 (125) 100 02/05/19 14:00 18 Mechanical Ventilator 30 02/05/19 14:00 30 02/05/19 14:00 84 15 178/91 (120) 100 02/05/19 13:30 16 Mechanical Ventilator 30 02/05/19 13:30 84 18 166/73 (104) 100 02/05/19 13:24 30 02/05/19 13:20 92 16 30 02/05/19 13:15 90 16 185/90 (121) 100 02/05/19 13:15 18 Mechanical Ventilator 30 02/05/19 13:00 90 16 185/90 (121) 100 02/05/19 13:00 16 Mechanical Ventilator 30 02/05/19 12:45 16 Mechanical Ventilator 30 02/05/19 12:45 82 19 163/72 (102) 100 02/05/19 12:30 82 19 163/72 (102) 100 02/05/19 12:30 16 Mechanical Ventilator 30 02/05/19 12:15 91 16 205/107 (139) 02/05/19 12:15 16 Mechanical Ventilator 30 02/05/19 12:00 97.7 91 16 205/107 (139) 02/05/19 12:00 30 02/05/19 12:00 98 02/05/19 12:00 19 Mechanical Ventilator 30 02/05/19 12:00 Mechanical Ventilator 02/05/19 11:45 87 17 165/85 (111) 100 02/05/19 11:45 16 Mechanical Ventilator 30 02/05/19 11:30 87 17 165/85 (111) 100 02/05/19 11:30 16 Mechanical Ventilator 30 02/05/19 11:15 88 17 179/94 (122) 99 02/05/19 11:15 19 Mechanical Ventilator 30 02/05/19 11:00 88 17 179/94 (122) 99 02/05/19 11:00 16 Mechanical Ventilator 30 02/05/19 10:45 16 Mechanical Ventilator 30 02/05/19 10:45 60 16 154/66 (95) 100 02/05/19 10:42 64 16 30 30 02/05/19 10:30 16 Mechanical Ventilator 30 02/05/19 10:30 60 16 154/66 (95) 100 02/05/19 10:15 16 Mechanical Ventilator 30 02/05/19 10:15 66 17 172/86 (114) 100 02/05/19 10:00 24 Mechanical Ventilator 30 02/05/19 10:00 82 20 167/134 (145) 97 02/05/19 09:30 55 16 107/41 (63) 100 02/05/19 09:00 56 16 107/55 (72) 100 02/05/19 08:51 100 02/05/19 08:51 48 16 30 02/05/19 08:45 16 Mechanical Ventilator 30 02/05/19 08:39 49 107/57 02/05/19 08:39 16 Mechanical Ventilator 30 02/05/19 08:30 53 15 107/57 (74) 100 02/05/19 08:00 30 02/05/19 08:00 16 Mechanical Ventilator 30 02/05/19 08:00 Mechanical Ventilator 02/05/19 08:00 56 02/05/19 08:00 97.9 52 15 113/54 (73) 100 02/05/19 07:30 53 15 115/56 (75) 100 02/05/19 07:23 50 16 30 30 02/05/19 07:21 63 20 100 Mechanical Ventilator 30 02/05/19 07:00 18 Mechanical Ventilator 30 02/05/19 07:00 63 18 110/54 (72) 100 02/05/19 06:30 64 18 142/68 (92) 100 02/05/19 06:00 16 Mechanical Ventilator 30 02/05/19 06:00 60 16 130/46 (74) 100 02/05/19 05:30 55 16 81/46 (58) 100 02/05/19 05:00 57 16 85/38 (54) 100 02/05/19 05:00 18 Mechanical Ventilator 30 02/05/19 04:50 62 16 30 02/05/19 04:30 58 16 95/51 (66) 100 02/05/19 04:00 58 02/05/19 04:00 18 Mechanical Ventilator 30 02/05/19 04:00 30 02/05/19 04:00 Mechanical Ventilator 02/05/19 04:00 98.2 58 16 84/50 (61) 100 02/05/19 03:30 62 16 93/57 (69) 100 02/05/19 03:00 65 16 93/53 (66) 100 02/05/19 03:00 18 Mechanical Ventilator 30 02/05/19 02:39 60 16 30 02/05/19 02:30 20 Mechanical Ventilator 30 02/05/19 02:30 90 16 142/50 (80) 100 02/05/19 02:00 81 16 133/46 (75) 100 02/05/19 02:00 21 Mechanical Ventilator 30 02/05/19 01:30 50 16 100/58 (72) 100 02/05/19 01:00 50 16 105/52 (69) 100 02/05/19 01:00 16 Mechanical Ventilator 30 02/05/19 00:42 58 16 30 02/05/19 00:30 53 16 101/52 (68) 100 02/05/19 00:00 16 Mechanical Ventilator 30 02/05/19 00:00 98.6 59 16 105/60 (75) 100 02/05/19 00:00 30 02/05/19 00:00 65 02/05/19 00:00 Mechanical Ventilator 02/04/19 23:30 55 16 100/55 (70) 100 02/04/19 23:00 54 16 91/55 (67) 100 02/04/19 23:00 18 Mechanical Ventilator 30 02/04/19 22:40 16 Mechanical Ventilator 30 02/04/19 22:40 55 16 30 02/04/19 22:30 54 16 91/52 (65) 100 Height (Feet): 5 Height (Inches): 10.00 Weight (Pounds): 165 General Appearance: WD/WN, no acute distress HEENT: normocephalic, atraumatic, anicteric, mucous membranes moist, PERRL, EOMI, pharynx normal Respiratory/Chest: chest wall non-tender, no respiratory distress, no accessory muscle use, decreased breath sounds, crackles/rales Cardiovascular: normal peripheral pulses, normal rate, regular rhythm, no gallop/murmur, no JVD Abdomen: normal bowel sounds, soft, non tender, no organomegaly, non distended , no mass, no scars Genitourinary: normal external genitalia Extremities: no cyanosis, no clubbing Skin: no rash, no lesions 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, no motor/sensory deficits, alert, responsive Lymphatic: no neck adenopathy, no groin adenopathy Musculoskeletal: normal muscle bulk, no effusion Laboratory Tests Test 02/05/19 08:36 02/05/19 12:45 White Blood Count 18.3 K/UL (4.8-10.8) H Red Blood Count 3.06 M/UL (4.70-6.10) L Hemoglobin 9.3 G/DL (14.2-18.0) L Hematocrit 29.4 % (42.0-52.0) L Mean Corpuscular Volume 96 FL (80-99) Mean Corpuscular Hemoglobin 30.2 PG (27.0-31.0) Mean Corpuscular Hemoglobin Concent 31.5 G/DL (32.0-36.0) L Red Cell Distribution Width 14.7 % (11.6-14.8) Platelet Count 110 K/UL (150-450) L Mean Platelet Volume 8.4 FL (6.5-10.1) Neutrophils (%) (Auto) % (45.0-75.0) Lymphocytes (%) (Auto) % (20.0-45.0) Monocytes (%) (Auto) % (1.0-10.0) Eosinophils (%) (Auto) % (0.0-3.0) Basophils (%) (Auto) % (0.0-2.0) Differential Total Cells Counted 100 Neutrophils % (Manual) 92 % (45-75) H Lymphocytes % (Manual) 3 % (20-45) L Monocytes % (Manual) 5 % (1-10) Eosinophils % (Manual) 0 % (0-3) Basophils % (Manual) 0 % (0-2) Band Neutrophils 0 % (0-8) Platelet Estimate Decreased L Platelet Morphology Normal Hypochromasia 1+ Anisocytosis 1+ Sodium Level 144 MMOL/L (136-145) Potassium Level 3.4 MMOL/L (3.5-5.1) L Chloride Level 107 MMOL/L (98-107) Carbon Dioxide Level 36 MMOL/L (21-32) H Anion Gap 1 mmol/L (5-15) L Blood Urea Nitrogen 27 mg/dL (7-18) H Creatinine 0.7 MG/DL (0.55-1.30) Estimat Glomerular Filtration Rate mL/min (>60) Glucose Level 92 MG/DL (74-106) Calcium Level 8.0 MG/DL (8.5-10.1) L Magnesium Level 1.7 MG/DL (1.8-2.4) L Arterial Blood pH 7.403 (7.350-7.450) Arterial Blood Partial Pressure CO2 54.6 mmHg (35.0-45.0) H Arterial Blood Partial Pressure O2 75.4 mmHg (75.0-100.0) Arterial Blood HCO3 33.3 mmol/L (22.0-26.0) H Arterial Blood Oxygen Saturation 94.3 % (95-100) L Arterial Blood Base Excess 7.2 (-2-2) H Delon Test Positive Current Medications Medications (Trade) Dose Ordered Sig/Brittani Route PRN Reason Start Time Stop Time Status Last Admin Dose Admin Acetaminophen (Tylenol) 650 mg Q4H PRN NG FOR MILD PAIN 01/26/19 10:15 02/25/19 10:14 Amlodipine Besylate (Norvasc) 5 mg DAILY NG 02/04/19 09:15 03/06/19 09:14 02/04/19 09:56 Chlorhexidine Gluconate (Renetta-Hex 2%) 1 applic DAILY@2000 TOPIC 01/27/19 20:00 02/26/19 19:59 02/05/19 20:10 Dextrose 1,000 ml @ 75 mls/hr [id number] IV 02/03/19 12:00 03/05/19 11:59 02/05/19 17:44 Dextrose (Dextrose 50%) 25 ml Q30M PRN IV Hypoglycemia 01/26/19 10:30 02/25/19 10:29 Dextrose (Dextrose 50%) 50 ml Q30M PRN IV Hypoglycemia 01/26/19 10:30 02/25/19 10:29 Docusate Sodium (Colace) 100 mg BID NG 02/02/19 18:00 03/04/19 17:59 02/04/19 08:43 Enoxaparin Sodium (Lovenox) 40 mg DAILY SUBQ 01/31/19 09:00 03/02/19 08:59 02/05/19 09:52 Fentanyl Citrate 2500 mcg/Sodium Chloride 250 ml @ 0 mls/hr Q24H IV 02/02/19 12:00 02/09/19 11:59 02/05/19 08:39 Hydralazine HCl (Apresoline) 25 mg Q6H PRN ORAL For High Blood Pressure 02/04/19 17:00 03/06/19 16:59 02/05/19 16:29 Insulin Aspart (NovoLOG) Q6HR SUBQ 01/26/19 12:00 02/25/19 11:59 02/05/19 17:51 Lorazepam (Ativan 2mg/ml 1ml) 1 mg Q4H PRN IV AGITATION / SEIZURE 01/30/19 15:00 02/06/19 14:59 02/05/19 03:23 Methylprednisolone Sodium Succinate (Solu-MEDROL) 60 mg EVERY 12 HOURS IVP 01/29/19 21:00 02/28/19 20:59 02/05/19 21:18 Pantoprazole (Protonix) 40 mg Q12HR IVP 02/03/19 21:00 02/25/19 10:59 02/05/19 21:18 Piperacillin Sod/ Tazobactam Sod 3.375 gm/Sodium Chloride 110 ml @ 27.5 mls/hr EVERY 8 HOURS IVPB 01/27/19 20:00 02/07/19 19:59 02/05/19 21:43 Polyethylene Glycol (Miralax) 17 gm BEDTIME GT 02/01/19 21:00 03/03/19 20:59 02/03/19 21:10 [place] Orlando M.D. Feb 05, 2019 22:10
--- NOTE | 2019-02-05 22:52 | NUR ---
NURSE NOTES: Ativan 1mg ivp given for severe agitation
--- NOTE | 2019-02-05 23:05 | Cardiology Progress Note ---
Assessment/Plan Assessment/Plan 1. Cardiopulmonary arrest due to anoxia, 2D echo reveals normal LVEF. 2. Non-STEMI, conservative management as he is DNR. 3. Moderate aortic regurgitation. 4. Acute respiratory failure, intubated, failed weaning process. Subjective Subjective Sinus bradycardia at rate of 51 Intubated with FiO2 of 30%. Objective Last 24 Hour Vital Signs Date Time Temp Pulse Resp B/P (MAP) Pulse Ox O2 Delivery O2 Flow Rate FiO2 02/05/19 22:32 51 16 30 02/05/19 21:36 50 16 30 02/05/19 19:08 61 16 30 02/05/19 19:00 69 18 103/53 (70) 100 02/05/19 19:00 19 Mechanical Ventilator 30 02/05/19 18:45 19 Mechanical Ventilator 30 02/05/19 18:45 69 18 154/86 (108) 100 02/05/19 18:30 19 Mechanical Ventilator 30 02/05/19 18:30 69 18 154/86 (108) 100 02/05/19 18:15 76 16 150/90 (110) 100 02/05/19 18:15 20 Mechanical Ventilator 30 02/05/19 18:00 76 18 127/106 (113) 99 02/05/19 18:00 24 Mechanical Ventilator 30 02/05/19 18:00 80 16 127/90 (102) 100 02/05/19 17:45 18 Mechanical Ventilator 30 02/05/19 17:45 76 18 127/106 (113) 99 02/05/19 17:30 79 17 141/63 (89) 100 02/05/19 17:30 16 Mechanical Ventilator 02/05/19 17:15 19 Mechanical Ventilator 30 02/05/19 17:05 77 22 30 02/05/19 17:00 64 14 147/61 (89) 100 02/05/19 17:00 18 Mechanical Ventilator 02/05/19 16:45 18 Mechanical Ventilator 30 02/05/19 16:45 64 14 147/61 (89) 100 02/05/19 16:30 16 Mechanical Ventilator 30 02/05/19 16:30 73 19 139/78 (98) 100 02/05/19 16:29 183/97 02/05/19 16:15 75 21 143/85 (104) 100 02/05/19 16:15 18 Mechanical Ventilator 30 02/05/19 16:00 Mechanical Ventilator 02/05/19 16:00 30 02/05/19 16:00 94 02/05/19 16:00 24 Mechanical Ventilator 30 02/05/19 16:00 98.0 93 19 213/89 (130) 97 02/05/19 15:30 78 18 156/80 (105) 100 02/05/19 15:26 81 17 30 02/05/19 15:00 78 18 156/80 (105) 100 02/05/19 15:00 30 02/05/19 15:00 18 Mechanical Ventilator 30 02/05/19 14:30 83 16 183/97 (125) 100 02/05/19 14:00 18 Mechanical Ventilator 30 02/05/19 14:00 30 02/05/19 14:00 84 15 178/91 (120) 100 02/05/19 13:30 16 Mechanical Ventilator 30 02/05/19 13:30 84 18 166/73 (104) 100 02/05/19 13:24 30 02/05/19 13:20 92 16 30 02/05/19 13:15 90 16 185/90 (121) 100 02/05/19 13:15 18 Mechanical Ventilator 30 02/05/19 13:00 90 16 185/90 (121) 100 02/05/19 13:00 16 Mechanical Ventilator 30 02/05/19 12:45 16 Mechanical Ventilator 30 02/05/19 12:45 82 19 163/72 (102) 100 02/05/19 12:30 82 19 163/72 (102) 100 02/05/19 12:30 16 Mechanical Ventilator 30 02/05/19 12:15 91 16 205/107 (139) 02/05/19 12:15 16 Mechanical Ventilator 30 02/05/19 12:00 97.7 91 16 205/107 (139) 02/05/19 12:00 30 02/05/19 12:00 98 02/05/19 12:00 19 Mechanical Ventilator 30 02/05/19 12:00 Mechanical Ventilator 02/05/19 11:45 87 17 165/85 (111) 100 02/05/19 11:45 16 Mechanical Ventilator 30 02/05/19 11:30 87 17 165/85 (111) 100 02/05/19 11:30 16 Mechanical Ventilator 30 02/05/19 11:15 88 17 179/94 (122) 99 02/05/19 11:15 19 Mechanical Ventilator 30 02/05/19 11:00 88 17 179/94 (122) 99 02/05/19 11:00 16 Mechanical Ventilator 30 02/05/19 10:45 16 Mechanical Ventilator 30 02/05/19 10:45 60 16 154/66 (95) 100 02/05/19 10:42 64 16 30 30 02/05/19 10:30 16 Mechanical Ventilator 30 02/05/19 10:30 60 16 154/66 (95) 100 02/05/19 10:15 16 Mechanical Ventilator 30 02/05/19 10:15 66 17 172/86 (114) 100 02/05/19 10:00 24 Mechanical Ventilator 30 02/05/19 10:00 82 20 167/134 (145) 97 02/05/19 09:30 55 16 107/41 (63) 100 02/05/19 09:00 56 16 107/55 (72) 100 02/05/19 08:51 100 02/05/19 08:51 48 16 30 02/05/19 08:45 16 Mechanical Ventilator 30 02/05/19 08:39 49 107/57 02/05/19 08:39 16 Mechanical Ventilator 30 02/05/19 08:30 53 15 107/57 (74) 100 02/05/19 08:00 30 02/05/19 08:00 16 Mechanical Ventilator 30 02/05/19 08:00 Mechanical Ventilator 02/05/19 08:00 56 02/05/19 08:00 97.9 52 15 113/54 (73) 100 02/05/19 07:30 53 15 115/56 (75) 100 02/05/19 07:23 50 16 30 30 02/05/19 07:21 63 20 100 Mechanical Ventilator 30 02/05/19 07:00 18 Mechanical Ventilator 30 02/05/19 07:00 63 18 110/54 (72) 100 02/05/19 06:30 64 18 142/68 (92) 100 02/05/19 06:00 16 Mechanical Ventilator 30 02/05/19 06:00 60 16 130/46 (74) 100 02/05/19 05:30 55 16 81/46 (58) 100 02/05/19 05:00 57 16 85/38 (54) 100 02/05/19 05:00 18 Mechanical Ventilator 30 02/05/19 04:50 62 16 30 02/05/19 04:30 58 16 95/51 (66) 100 02/05/19 04:00 58 02/05/19 04:00 18 Mechanical Ventilator 30 02/05/19 04:00 30 02/05/19 04:00 Mechanical Ventilator 02/05/19 04:00 98.2 58 16 84/50 (61) 100 02/05/19 03:30 62 16 93/57 (69) 100 02/05/19 03:00 65 16 93/53 (66) 100 02/05/19 03:00 18 Mechanical Ventilator 30 02/05/19 02:39 60 16 30 02/05/19 02:30 20 Mechanical Ventilator 30 02/05/19 02:30 90 16 142/50 (80) 100 02/05/19 02:00 81 16 133/46 (75) 100 02/05/19 02:00 21 Mechanical Ventilator 30 02/05/19 01:30 50 16 100/58 (72) 100 02/05/19 01:00 50 16 105/52 (69) 100 02/05/19 01:00 16 Mechanical Ventilator 30 02/05/19 00:42 58 16 30 02/05/19 00:30 53 16 101/52 (68) 100 02/05/19 00:00 16 Mechanical Ventilator 30 02/05/19 00:00 98.6 59 16 105/60 (75) 100 02/05/19 00:00 30 02/05/19 00:00 65 02/05/19 00:00 Mechanical Ventilator 02/04/19 23:30 55 16 100/55 (70) 100 Intake and Output 02/04/19 02/05/19 19:00 07:00 Intake Total 2386.875 ml 1617.5 ml Output Total 1551 ml 1240 ml Balance 835.875 ml 377.5 ml Intake Free Water 50 ml 60 ml IV Total 1796.875 ml 1197.5 ml Tube Feeding 540 ml 360 ml Output Urine Total 1551 ml 1240 ml # Bowel Movements 2 4 2D Echo: LVEF 55%, moderate AR Laboratory Tests Test 02/05/19 08:36 02/05/19 12:45 White Blood Count 18.3 K/UL (4.8-10.8) H Red Blood Count 3.06 M/UL (4.70-6.10) L Hemoglobin 9.3 G/DL (14.2-18.0) L Hematocrit 29.4 % (42.0-52.0) L Mean Corpuscular Volume 96 FL (80-99) Mean Corpuscular Hemoglobin 30.2 PG (27.0-31.0) Mean Corpuscular Hemoglobin Concent 31.5 G/DL (32.0-36.0) L Red Cell Distribution Width 14.7 % (11.6-14.8) Platelet Count 110 K/UL (150-450) L Mean Platelet Volume 8.4 FL (6.5-10.1) Neutrophils (%) (Auto) % (45.0-75.0) Lymphocytes (%) (Auto) % (20.0-45.0) Monocytes (%) (Auto) % (1.0-10.0) Eosinophils (%) (Auto) % (0.0-3.0) Basophils (%) (Auto) % (0.0-2.0) Differential Total Cells Counted 100 Neutrophils % (Manual) 92 % (45-75) H Lymphocytes % (Manual) 3 % (20-45) L Monocytes % (Manual) 5 % (1-10) Eosinophils % (Manual) 0 % (0-3) Basophils % (Manual) 0 % (0-2) Band Neutrophils 0 % (0-8) Platelet Estimate Decreased L Platelet Morphology Normal Hypochromasia 1+ Anisocytosis 1+ Sodium Level 144 MMOL/L (136-145) Potassium Level 3.4 MMOL/L (3.5-5.1) L Chloride Level 107 MMOL/L (98-107) Carbon Dioxide Level 36 MMOL/L (21-32) H Anion Gap 1 mmol/L (5-15) L Blood Urea Nitrogen 27 mg/dL (7-18) H Creatinine 0.7 MG/DL (0.55-1.30) Estimat Glomerular Filtration Rate mL/min (>60) Glucose Level 92 MG/DL (74-106) Calcium Level 8.0 MG/DL (8.5-10.1) L Magnesium Level 1.7 MG/DL (1.8-2.4) L Arterial Blood pH 7.403 (7.350-7.450) Arterial Blood Partial Pressure CO2 54.6 mmHg (35.0-45.0) H Arterial Blood Partial Pressure O2 75.4 mmHg (75.0-100.0) Arterial Blood HCO3 33.3 mmol/L (22.0-26.0) H Arterial Blood Oxygen Saturation 94.3 % (95-100) L Arterial Blood Base Excess 7.2 (-2-2) H Delon Test Positive Objective HEENT: Atraumatic, arousable, orally intubated, conjunctival pallor. NECK: Cannot assess JVD, no carotid bruit. LUNGS: Bilateral breath sounds. Few rhonchi. No wheezing. CARDIAC: Regular rhythm and rate. Normal S1 and S2. No murmurs, gallops or rubs. ABDOMEN: Soft, non-distended, + BS. EXTREMITIES: No edema, clubbing or cyanosis. Lv Zuniga MD Feb 05, 2019 23:05
[2019-02-06] VITALS (53 sets, daily range): BP systolic 82–179; BP diastolic 44–108
--- NOTE | 2019-02-06 01:00 | NUR ---
NURSE NOTES:Pt. more calmed at this time after the Ativan IV, Fentanyl drip still at 100mcg/min.
--- NOTE | 2019-02-06 03:00 | NUR ---
NURSE NOTES:Complete bed bath with bed changed done,
--- NOTE | 2019-02-06 05:00 | NUR ---
NURSE NOTES:Suctioned tn tk beige secretions moderate in amt. 02 sat 100%.
--- NOTE | 2019-02-06 06:00 | NUR ---
NURSE NOTES:Accucheck with coverage. Pls see diabetic sheet.
[2019-02-06 06:12] LABS: HEMATOCRIT 35.4 % (42.0-52.0); HEMOGLOBIN 11.1 G/DL (14.2-18.0); MEAN CORPUSCULAR VOLUME 96 FL (80-99); PLATELET COUNT 118 K/UL (150-450); RED BLOOD COUNT 3.68 M/UL (4.70-6.10); RED CELL DISTRIBUTION WIDTH 14.9 % (11.6-14.8)
[2019-02-06] MEDS: Piperacillin/Tazobactam 3.375 GM in NS 110 ML IVPB SCH ×2 (06:18→14:18)
[2019-02-06 06:19] LABS: WHITE BLOOD COUNT 24.3 K/UL (4.8-10.8)
[2019-02-06] MEDS: NovoLOG Insulin Flexpen SUBQ SCH ×4 (06:20→23:51)
[2019-02-06 06:28] LABS: ANION GAP 4 mmol/L (5-15); BLOOD UREA NITROGEN 27 mg/dL (7-18); CALCIUM 8.3 MG/DL (8.5-10.1); CARBON DIOXIDE 32 MMOL/L (21-32); CHLORIDE 106 MMOL/L (98-107); CREATININE 0.7 MG/DL (0.55-1.30); POTASSIUM 3.8 MMOL/L (3.5-5.1); SODIUM 142 MMOL/L (136-145)
--- NOTE | 2019-02-06 06:43 | NUR ---
RESPIRATORY NOTE: Received pt on vent settings: AC 16-500ml-30% FiO2- peep 5. Pt is orally intubated with ETT size 8.0 @ 25cm lips line, secured by anchor fast. Pt is awake, alert and resting comfortably in the bed, no SOB or resp distress noted. Omer diminished breath sounds heard upon auscultation, suctioned small amount of thick/thin bloody brown secretions without incidents. OPA in place to prevent tube biting. Alarms are set and audible, vent is plugged into the red outlet, ambu bag at bedside. Will try to wean pt in the next vent check and continue to monitor and suction as needed.
--- NOTE | 2019-02-06 07:32 | NUR ---
HAND-OFF: Report given to Anjana Guerrero RN.
--- NOTE | 2019-02-06 07:35 | NUR ---
NURSE NOTES: Received the patient from GENNY Cox. Patient is sedated with fentanyl gtt, RASS -2. Patient is orally intubated, ETT 8.0, 25cm at lip line. AC 16, TV 500, FIO2 30%, PEEP 5. SB 55-65 noted on the compliance monitor. No acute distress noted. Right NGT intact, tube feeding was held for weaning trial. Saenz cath intact, and patent, draining yellow urine by gravity. HOB kept elevated. On bilateral soft wrist restraints. No skin breakdown noted. Wound dressings to bilateral intact, clean and dry. Patient noted with generalized edema. Right IJ TLV intact, running fentanyl drip at 10mcg/hr, and D5W at 75ml/hr. Bed in lowest position, locked, side rails upx3. Bed alarm on. Seizure precaution, side rails padded. Will continue to monitor.
[2019-02-06 08:32] LABS: ALANINE AMINOTRANSFERASE 53 U/L (12-78); ALBUMIN 2.4 G/DL (3.4-5.0); ALKALINE PHOSPHATASE 63 U/L (46-116); ASPARTATE AMINO TRANSFERASE 26 U/L (15-37); BILIRUBIN,DIRECT 0.2 MG/DL (0.0-0.3); BILIRUBIN,TOTAL 0.7 MG/DL (0.2-1.0)
--- NOTE | 2019-02-06 09:05 | NUR ---
RESPIRATORY NOTE: Pt is sedated with Fetanyl drip due to agitation. RN So Yolanda turned off sedation to wean. Pt is awake, alert, follows simple commands. Placed pt on CPAP PS 10- peep 5- 30%FiO2 per Dr. White's order. Pt didn't tolerate well, went straight to apnea mode. Attempted to head athletic trainer/strength coach pt to take deep breath, pt tries couple deep breaths then didn't give anymore effort to breathe. LEXUS Garcia and RN Anjana Guerrero made aware. Will try again in 30 minutes when pt's fully out of sedation. Will continue to monitor in the mean time.
[2019-02-06] MEDS: DOPamine 400mg/250ml 250 ML IV SCH (09:15)
--- NOTE | 2019-02-06 09:15 | NUR ---
NURSE NOTES: patient seen by Dr. Zuniga, Notified MD of Bradycardia in 50s and low BP. BP stable at this time. Per MD, to start dopamine gtt for low BP and HR.
[2019-02-06] MEDS: Pantoprazole Inj IVP SCH ×2 (09:20→20:59)
[2019-02-06] MEDS: Solu-MEDROL 125mg Inj IVP SCH ×2 (09:20→21:00)
[2019-02-06] MEDS: Docusate 100mg tablet NG SCH ×2 (09:20→17:53)
[2019-02-06] MEDS: Enoxaparin 40mg Inj SUBQ SCH (09:22)
--- NOTE | 2019-02-06 09:35 | Hematology/Onc Progress Note ---
Assessment/Plan Assessment/Plan # Thrombocytopenia is likely due to underlying infection/sepsis v dic, reactive process --> hiv is neg, hepatitis is neg as well --> us of the abd from prior 2018 --> plt rend 140-->115-->105-->133-->110k--> 118k --> okay for ppx as long as above 75k --> meds have been reviewed # Anemia of chronic disease, due to multifactorial causes --> anemia panel reviewed from earlier in admission and c/w acd --> hgb goal is >7 --> no hemolysis is seen --> smear has been reviewed # Leukocytosis/elevated white blood cell count, unspecified likely related to steroid meds --> have reviewed peripheral smear and bandemia/neutrophilia noted --> continue antibiotics if they have been started by ID team, zosyn --> monitor for resolution --> wbc trend 14-->18-->24.3 # COPD exacerbation --> has been given steriods --> per id for aspiration prec on zosyn # Hypercapneic respiratory failure --> remains on vent --> sbt per pulm # S/p cardiac arrest in the ED # CHF # HTN # Diabetes # DNR status Time of note does not correspond to when patient was seen. Greatly appreciate consultation. Subjective Allergies: Coded Allergies: No Known Allergies (Unverified , 06/05/18) Subjective 02/01: no events to report, plt is lower, weaning trial initiated with mack gray rn, hiv neg 02/04: icu, wbc elevated, on abx 02/05: remains on vent, fighting vent, on abx remains on lovenox, on steriods 02/05: icu, on vent, vs stable, no sob or respiratory distress Objective Objective Current Medications Medications (Trade) Dose Ordered Sig/Brittani Route PRN Reason Start Time Stop Time Status Last Admin Dose Admin Acetaminophen (Tylenol) 650 mg Q4H PRN NG FOR MILD PAIN 01/26/19 10:15 02/25/19 10:14 Amlodipine Besylate (Norvasc) 5 mg DAILY NG 02/04/19 09:15 03/06/19 09:14 02/04/19 09:56 Chlorhexidine Gluconate (Renetta-Hex 2%) 1 applic DAILY@1999 TOPIC 01/27/19 20:00 02/26/19 19:59 02/05/19 20:10 Dextrose 1,000 ml @ 75 mls/hr [id number] IV 02/03/19 12:00 03/05/19 11:59 02/06/19 09:23 Dextrose (Dextrose 50%) 25 ml Q30M PRN IV Hypoglycemia 01/26/19 10:30 02/25/19 10:29 Dextrose (Dextrose 50%) 50 ml Q30M PRN IV Hypoglycemia 01/26/19 10:30 02/25/19 10:29 Docusate Sodium (Colace) 100 mg BID NG 02/02/19 18:00 03/04/19 17:59 02/06/19 09:20 Dopamine HCl/ Dextrose 250 ml @ 0 mls/hr Q24H IV 02/06/19 09:15 03/08/19 09:14 Enoxaparin Sodium (Lovenox) 40 mg DAILY SUBQ 01/31/19 09:00 03/02/19 08:59 02/06/19 09:22 Fentanyl Citrate 2500 mcg/Sodium Chloride 250 ml @ 0 mls/hr Q24H IV 02/02/19 12:00 02/09/19 11:59 02/05/19 08:39 Hydralazine HCl (Apresoline) 25 mg Q6H PRN ORAL For High Blood Pressure 02/04/19 17:00 03/06/19 16:59 02/05/19 16:29 Insulin Aspart (NovoLOG) Q6HR SUBQ 01/26/19 12:00 02/25/19 11:59 02/06/19 06:20 Lorazepam (Ativan 2mg/ml 1ml) 1 mg Q4H PRN IV AGITATION / SEIZURE 01/30/19 15:00 02/06/19 14:59 02/05/19 22:50 Methylprednisolone Sodium Succinate (Solu-MEDROL) 60 mg EVERY 12 HOURS IVP 01/29/19 21:00 02/28/19 20:59 02/06/19 09:20 Pantoprazole (Protonix) 40 mg Q12HR IVP 02/03/19 21:00 02/25/19 10:59 02/06/19 09:20 Piperacillin Sod/ Tazobactam Sod 3.375 gm/Sodium Chloride 110 ml @ 27.5 mls/hr EVERY 8 HOURS IVPB 01/27/19 20:00 02/07/19 23:59 02/06/19 06:18 Polyethylene Glycol (Miralax) 17 gm BEDTIME GT 02/01/19 21:00 03/03/19 20:59 02/03/19 21:10 Last 24 Hour Vital Signs Date Time Temp Pulse Resp B/P (MAP) Pulse Ox O2 Delivery O2 Flow Rate FiO2 02/06/19 09:00 61 110/65 02/06/19 07:00 22 Mechanical Ventilator 30 02/06/19 07:00 55 16 99/54 (69) 100 02/06/19 06:43 62 16 30 02/06/19 06:30 63 16 82/56 (65) 100 02/06/19 06:00 22 Mechanical Ventilator 30 02/06/19 06:00 62 16 138/70 (92) 100 02/06/19 05:30 78 16 132/70 (90) 100 02/06/19 05:00 80 16 140/70 (93) 100 02/06/19 05:00 22 Mechanical Ventilator 30 02/06/19 04:41 82 18 30 02/06/19 04:30 83 16 150/62 (91) 100 02/06/19 04:00 71 02/06/19 04:00 30 02/06/19 04:00 22 Mechanical Ventilator 30 02/06/19 04:00 98.0 71 16 156/62 (93) 100 02/06/19 04:00 Mechanical Ventilator 02/06/19 03:24 85 21 130/70 (90) 100 02/06/19 03:06 74 17 30 02/06/19 03:00 25 Mechanical Ventilator 30 02/06/19 02:30 89 21 134/71 (92) 100 02/06/19 02:00 21 Mechanical Ventilator 30 02/06/19 02:00 89 21 139/89 (106) 100 02/06/19 01:30 89 26 113/76 (88) 98 02/06/19 01:20 87 18 30 02/06/19 01:00 78 24 140/84 (102) 100 02/06/19 01:00 21 Mechanical Ventilator 30 02/06/19 00:30 55 16 98/53 (68) 100 02/06/19 00:00 30 02/06/19 00:00 98.2 55 16 96/54 (68) 100 02/06/19 00:00 Mechanical Ventilator 02/06/19 00:00 17 Mechanical Ventilator 30 02/06/19 00:00 54 02/05/19 23:30 55 17 140/80 (100) 100 02/05/19 23:00 60 16 110/60 (77) 100 02/05/19 23:00 17 Mechanical Ventilator 30 02/05/19 22:32 51 16 30 02/05/19 22:30 70 16 119/62 (81) 100 02/05/19 22:00 49 16 96/55 (69) 100 02/05/19 22:00 16 Mechanical Ventilator 30 02/05/19 21:36 50 16 30 02/05/19 21:30 49 16 89/50 (63) 100 02/05/19 21:00 18 Mechanical Ventilator 30 02/05/19 21:00 50 17 85/55 (65) 100 02/05/19 20:30 51 16 86/47 (60) 100 02/05/19 20:00 98.0 55 16 96/51 (66) 100 02/05/19 20:00 18 Mechanical Ventilator 30 02/05/19 20:00 55 02/05/19 20:00 Mechanical Ventilator 02/05/19 19:30 61 16 119/55 (76) 100 02/05/19 19:08 61 16 30 02/05/19 19:00 69 18 103/53 (70) 100 02/05/19 19:00 19 Mechanical Ventilator 30 02/05/19 18:45 19 Mechanical Ventilator 30 02/05/19 18:45 69 18 154/86 (108) 100 02/05/19 18:30 19 Mechanical Ventilator 30 02/05/19 18:30 69 18 154/86 (108) 100 02/05/19 18:15 76 16 150/90 (110) 100 02/05/19 18:15 20 Mechanical Ventilator 30 02/05/19 18:00 76 18 127/106 (113) 99 02/05/19 18:00 24 Mechanical Ventilator 30 02/05/19 18:00 80 16 127/90 (102) 100 02/05/19 17:45 18 Mechanical Ventilator 30 02/05/19 17:45 76 18 127/106 (113) 99 02/05/19 17:30 79 17 141/63 (89) 100 02/05/19 17:30 16 Mechanical Ventilator 30 02/05/19 17:15 19 Mechanical Ventilator 30 02/05/19 17:05 77 22 30 02/05/19 17:00 64 14 147/61 (89) 100 02/05/19 17:00 18 Mechanical Ventilator 30 02/05/19 16:45 18 Mechanical Ventilator 30 02/05/19 16:45 64 14 147/61 (89) 100 02/05/19 16:30 16 Mechanical Ventilator 30 02/05/19 16:30 73 19 139/78 (98) 100 02/05/19 16:29 183/97 02/05/19 16:15 75 21 143/85 (104) 100 02/05/19 16:15 18 Mechanical Ventilator 30 02/05/19 16:00 Mechanical Ventilator 02/05/19 16:00 30 02/05/19 16:00 94 02/05/19 16:00 24 Mechanical Ventilator 30 02/05/19 16:00 98.0 93 19 213/89 (130) 97 02/05/19 15:30 78 18 156/80 (105) 100 02/05/19 15:26 81 17 30 02/05/19 15:00 78 18 156/80 (105) 100 02/05/19 15:00 30 02/05/19 15:00 18 Mechanical Ventilator 30 02/05/19 14:30 83 16 183/97 (125) 100 02/05/19 14:00 18 Mechanical Ventilator 30 02/05/19 14:00 30 02/05/19 14:00 84 15 178/91 (120) 100 02/05/19 13:30 16 Mechanical Ventilator 30 02/05/19 13:30 84 18 166/73 (104) 100 02/05/19 13:24 30 02/05/19 13:20 92 16 30 02/05/19 13:15 90 16 185/90 (121) 100 02/05/19 13:15 18 Mechanical Ventilator 30 02/05/19 13:00 90 16 185/90 (121) 100 02/05/19 13:00 16 Mechanical Ventilator 30 02/05/19 12:45 16 Mechanical Ventilator 30 02/05/19 12:45 82 19 163/72 (102) 100 02/05/19 12:30 82 19 163/72 (102) 100 02/05/19 12:30 16 Mechanical Ventilator 30 02/05/19 12:15 91 16 205/107 (139) 02/05/19 12:15 16 Mechanical Ventilator 30 02/05/19 12:00 97.7 91 16 205/107 (139) 02/05/19 12:00 30 02/05/19 12:00 98 02/05/19 12:00 19 Mechanical Ventilator 30 02/05/19 12:00 Mechanical Ventilator 02/05/19 11:45 87 17 165/85 (111) 100 02/05/19 11:45 16 Mechanical Ventilator 30 02/05/19 11:30 87 17 165/85 (111) 100 02/05/19 11:30 16 Mechanical Ventilator 30 02/05/19 11:15 88 17 179/94 (122) 99 02/05/19 11:15 19 Mechanical Ventilator 30 02/05/19 11:00 88 17 179/94 (122) 99 02/05/19 11:00 16 Mechanical Ventilator 30 02/05/19 10:45 16 Mechanical Ventilator 30 02/05/19 10:45 60 16 154/66 (95) 100 02/05/19 10:42 64 16 30 30 02/05/19 10:30 16 Mechanical Ventilator 30 02/05/19 10:30 60 16 154/66 (95) 100 02/05/19 10:15 16 Mechanical Ventilator 30 02/05/19 10:15 66 17 172/86 (114) 100 02/05/19 10:00 24 Mechanical Ventilator 30 02/05/19 10:00 82 20 167/134 (145) 97 02/05/19 09:30 55 16 107/41 (63) 100 02/05/19 09:00 56 16 107/55 (72) 100 02/05/19 08:51 100 02/05/19 08:51 48 16 30 02/05/19 08:45 16 Mechanical Ventilator 30 02/05/19 08:39 49 107/57 02/05/19 08:39 16 Mechanical Ventilator 30 02/05/19 08:30 53 15 107/57 (74) 100 02/05/19 08:00 30 02/05/19 08:00 16 Mechanical Ventilator 30 02/05/19 08:00 Mechanical Ventilator 02/05/19 08:00 56 8/20/19 08:00 97.9 52 15 113/54 (73) 100 02/05/19 07:30 53 15 115/56 (75) 100 02/05/19 07:23 50 16 30 30 02/05/19 07:21 63 20 100 Mechanical Ventilator 30 02/05/19 07:00 18 Mechanical Ventilator 30 02/05/19 07:00 63 18 110/54 (72) 100 02/05/19 06:30 64 18 142/68 (92) 100 02/05/19 06:00 16 Mechanical Ventilator 30 02/05/19 06:00 60 16 130/46 (74) 100 02/05/19 05:30 55 16 81/46 (58) 100 02/05/19 05:00 57 16 85/38 (54) 100 02/05/19 05:00 18 Mechanical Ventilator 02/05/19 04:50 62 16 30 02/05/19 04:30 58 16 95/51 (66) 100 02/05/19 04:00 58 02/05/19 04:00 18 Mechanical Ventilator 30 02/05/19 04:00 30 02/05/19 04:00 Mechanical Ventilator 02/05/19 04:00 98.2 58 16 84/50 (61) 100 02/05/19 03:30 62 16 93/57 (69) 100 02/05/19 03:00 65 16 93/53 (66) 100 02/05/19 03:00 18 Mechanical Ventilator 02/05/19 02:39 60 16 30 02/05/19 02:30 20 Mechanical Ventilator 02/05/19 02:30 90 16 142/50 (80) 100 02/05/19 02:00 81 16 133/46 (75) 100 02/05/19 02:00 21 Mechanical Ventilator 02/05/19 01:30 50 16 100/58 (72) 100 02/05/19 01:00 50 16 105/52 (69) 100 02/05/19 01:00 16 Mechanical Ventilator 30 02/05/19 00:42 58 16 30 02/05/19 00:30 53 16 101/52 (68) 100 02/05/19 00:00 16 Mechanical Ventilator 30 02/05/19 00:00 98.6 59 16 105/60 (75) 100 02/05/19 00:00 30 02/05/19 00:00 65 02/05/19 00:00 Mechanical Ventilator 02/04/19 23:30 55 16 100/55 (70) 100 02/04/19 23:00 54 16 91/55 (67) 100 02/04/19 23:00 18 Mechanical Ventilator 30 02/04/19 22:40 16 Mechanical Ventilator 30 02/04/19 22:40 55 16 30 02/04/19 22:30 54 16 91/52 (65) 100 02/04/19 22:00 55 16 109/91 (97) 100 02/04/19 22:00 18 Mechanical Ventilator 30 02/04/19 21:30 55 16 118/56 (76) 100 02/04/19 21:00 57 16 112/56 (74) 100 02/04/19 21:00 16 Mechanical Ventilator 30 02/04/19 20:57 56 16 30 02/04/19 20:30 61 16 157/61 (93) 100 02/04/19 20:00 16 Mechanical Ventilator 30 02/04/19 20:00 Mechanical Ventilator 02/04/19 20:00 30 02/04/19 20:00 61 02/04/19 20:00 98.4 79 16 129/56 (80) 100 02/04/19 19:00 71 20 183/66 (105) 100 02/04/19 19:00 24 Mechanical Ventilator 30 02/04/19 18:48 90 18 30 02/04/19 18:30 80 15 186/75 (112) 100 02/04/19 18:30 20 Mechanical Ventilator 30 02/04/19 18:00 68 16 131/66 (87) 100 02/04/19 18:00 16 Mechanical Ventilator 30 02/04/19 17:45 20 Mechanical Ventilator 30 02/04/19 17:45 63 16 153/60 (91) 100 02/04/19 17:30 65 16 123/63 (83) 100 02/04/19 17:30 16 Mechanical Ventilator 30 02/04/19 17:15 82 17 190/94 (126) 100 02/04/19 17:15 20 Mechanical Ventilator 30 02/04/19 17:00 71 16 140/60 (86) 100 02/04/19 17:00 16 Mechanical Ventilator 30 02/04/19 16:46 92 18 30 02/04/19 16:45 26 Mechanical Ventilator 30 02/04/19 16:45 80 19 161/83 (109) 100 02/04/19 16:30 89 16 184/98 (126) 100 02/04/19 16:30 24 Mechanical Ventilator 30 02/04/19 16:15 30 02/04/19 16:15 28 Mechanical Ventilator 30 02/04/19 16:15 84 18 172/86 (114) 100 02/04/19 16:01 90 02/04/19 16:00 30 02/04/19 16:00 98.6 89 14 149/115 (126) 100 02/04/19 16:00 16 Mechanical Ventilator 40 02/04/19 16:00 Mechanical Ventilator 02/04/19 15:00 92 16 180/91 (120) 100 02/04/19 15:00 16 Mechanical Ventilator 40 02/04/19 14:50 87 18 30 02/04/19 14:00 88 15 173/82 (112) 100 02/04/19 14:00 19 Mechanical Ventilator 40 02/04/19 13:30 86 15 179/73 (108) 100 02/04/19 13:30 87 16 179/73 (108) 100 02/04/19 13:30 19 Mechanical Ventilator 40 02/04/19 13:00 95 17 184/85 (118) 100 02/04/19 13:00 16 Mechanical Ventilator 40 02/04/19 12:45 40 02/04/19 12:45 86 16 189/70 (109) 100 02/04/19 12:45 30 02/04/19 12:45 16 Mechanical Ventilator 40 02/04/19 12:36 93 18 40 02/04/19 12:30 96 18 171/96 (121) 100 02/04/19 12:30 16 Mechanical Ventilator 40 02/04/19 12:15 97 20 180/86 (117) 100 02/04/19 12:15 16 Mechanical Ventilator 40 02/04/19 12:09 98.1 97 21 196/87 (123) 100 02/04/19 12:00 95 02/04/19 12:00 16 Mechanical Ventilator 40 02/04/19 12:00 40 02/04/19 12:00 81 17 148/87 (107) 100 02/04/19 12:00 Mechanical Ventilator 02/04/19 11:45 73 16 135/78 (97) 100 02/04/19 11:45 16 Mechanical Ventilator 40 02/04/19 11:30 97 21 180/79 (112) 86 02/04/19 11:30 16 Mechanical Ventilator 40 02/04/19 11:16 85 17 208/69 (115) 100 02/04/19 11:15 16 Mechanical Ventilator 40 02/04/19 11:00 16 Mechanical Ventilator 40 02/04/19 11:00 84 16 180/78 (112) 97 02/04/19 10:48 64 16 40 02/04/19 10:45 16 Mechanical Ventilator 40 02/04/19 10:45 77 16 186/160 (169) 100 02/04/19 10:30 63 16 147/82 (103) 100 02/04/19 10:30 16 Mechanical Ventilator 40 02/04/19 10:00 16 Mechanical Ventilator 40 02/04/19 10:00 62 16 118/71 (87) 100 02/04/19 09:56 61 118/71 02/04/19 09:30 70 16 168/151 (157) 99 Intake and Output 02/05/19 02/06/19 19:00 07:00 Intake Total 1588.500 ml 1489.0 ml Output Total 1150 ml 920 ml Balance 438.500 ml 569.0 ml Intake Free Water 30 ml 60 ml IV Total 1378.500 ml 1069.0 ml Tube Feeding 180 ml 360 ml Output Urine Total 1150 ml 920 ml # Bowel Movements 2 1 Labs Test 02/03/19 14:30 02/04/19 03:40 02/04/19 04:00 02/04/19 14:25 Urine Color Pale yellow Urine Appearance Clear Urine pH 5 (4.5-8.0) Urine Specific [place] 1.020 (1.005-1.035) Urine Protein 2+ (NEGATIVE) Urine Glucose (UA) Negative (NEGATIVE) Urine Ketones Negative (NEGATIVE) Urine Blood Negative (NEGATIVE) Urine Nitrite Negative (NEGATIVE) Urine Bilirubin Negative (NEGATIVE) Urine Urobilinogen Normal MG/DL (0.0-1.0) Urine Leukocyte Esterase Negative (NEGATIVE) Urine RBC 2-4 /HPF (0 - 0) Urine WBC 0-2 /HPF (0 - 0) Urine Squamous Epithelial Cells None /LPF (NONE/OCC) Urine Calcium Oxalate Crystals Moderate /LPF (NONE) Urine Bacteria Occasional /HPF (NONE) Urine Mucus Few /LPF (NONE/OCC) Urine Random Sodium 46 mmol/L (20-110) White Blood Count 19.6 K/UL (4.8-10.8) Red Blood Count 3.63 M/UL (4.70-6.10) Hemoglobin 10.9 G/DL (14.2-18.0) Hematocrit 35.3 % (42.0-52.0) Mean Corpuscular Volume 97 FL (80-99) Mean Corpuscular Hemoglobin 30.1 PG (27.0-31.0) Mean Corpuscular Hemoglobin Concent 30.9 G/DL (32.0-36.0) Red Cell Distribution Width 14.9 % (11.6-14.8) Platelet Count 133 K/UL (150-450) Mean Platelet Volume 7.0 FL (6.5-10.1) Neutrophils (%) (Auto) % (45.0-75.0) Lymphocytes (%) (Auto) % (20.0-45.0) Monocytes (%) (Auto) % (1.0-10.0) Eosinophils (%) (Auto) % (0.0-3.0) Basophils (%) (Auto) % (0.0-2.0) Differential Total Cells Counted 100 Neutrophils % (Manual) 96 % (45-75) Lymphocytes % (Manual) 1 % (20-45) Monocytes % (Manual) 3 % (1-10) Eosinophils % (Manual) 0 % (0-3) Basophils % (Manual) 0 % (0-2) Band Neutrophils 0 % (0-8) Platelet Estimate Decreased Platelet Morphology Normal Anisocytosis 1+ Sodium Level 146 MMOL/L (136-145) Potassium Level 3.7 MMOL/L (3.5-5.1) Chloride Level 111 MMOL/L (98-107) Carbon Dioxide Level 32 MMOL/L (21-32) Anion Gap 3 mmol/L (5-15) Blood Urea Nitrogen 32 mg/dL (7-18) Creatinine 0.8 MG/DL (0.55-1.30) Estimat Glomerular Filtration Rate mL/min (>60) Glucose Level 106 MG/DL (74-106) Hemoglobin A1c 5.7 % (4.3-6.0) Uric Acid 2.7 MG/DL (2.6-7.2) Calcium Level 8.7 MG/DL (8.5-10.1) Phosphorus Level 3.7 MG/DL (2.5-4.9) Magnesium Level 1.5 MG/DL (1.8-2.4) Iron Level 47 ug/dL (50-175) Total Iron Binding Capacity 152 ug/dL (250-450) Percent Iron Saturation 31 % (15-50) Unsaturated Iron Binding 105 ug/dL (112-346) Ferritin 293 NG/ML (8-388) Total Bilirubin 0.7 MG/DL (0.2-1.0) Gamma Glutamyl Transpeptidase 36 U/L (5-85) Aspartate Amino Transf (AST/SGOT) 21 U/L (15-37) Alanine Aminotransferase (ALT/SGPT) 56 U/L (12-78) Alkaline Phosphatase 50 U/L (46-116) Ammonia 14 umol/L (11-32) Total Creatine Kinase 170 U/L (26-308) Troponin I 0.037 ng/mL (0.000-0.056) C-Reactive Protein, Quantitative 2.3 mg/dL (0.00-0.90) Pro-B-Type Natriuretic Peptide 390 pg/mL (0-125) Total Protein 5.8 G/DL (6.4-8.2) Albumin 2.6 G/DL (3.4-5.0) Globulin 3.2 g/dL Albumin/Globulin Ratio 0.8 (1.0-2.7) Triglycerides Level 92 MG/DL (30-150) Cholesterol Level 239 MG/DL (< 200) LDL Cholesterol 147 mg/dL (<100) HDL Cholesterol 74 MG/DL (40-60) Cholesterol/HDL Ratio 3.2 (3.3-4.4) Vitamin B12 Level 875 PG/ML (193-986) Folate 16.2 NG/ML (8.6-58.9) Thyroid Stimulating Hormone (TSH) 1.510 uiU/mL (0.358-3.740) Stool Occult Blood Negative (NEGATIVE) Arterial Blood pH 7.372 (7.350-7.450) Arterial Blood Partial Pressure CO2 50.3 mmHg (35.0-45.0) Arterial Blood Partial Pressure O2 77.7 mmHg (75.0-100.0) Arterial Blood HCO3 28.6 mmol/L (22.0-26.0) Arterial Blood Oxygen Saturation 95.3 % (95-100) Arterial Blood Base Excess 2.6 (-2-2) Delon Test Positive Test 02/05/19 08:36 02/05/19 12:45 02/06/19 05:37 White Blood Count 18.3 K/UL (4.8-10.8) 24.3 K/UL (4.8-10.8) Red Blood Count 3.06 M/UL (4.70-6.10) 3.68 M/UL (4.70-6.10) Hemoglobin 9.3 G/DL (14.2-18.0) 11.1 G/DL (14.2-18.0) Hematocrit 29.4 % (42.0-52.0) 35.4 % (42.0-52.0) Mean Corpuscular Volume 96 FL (80-99) 96 FL (80-99) Mean Corpuscular Hemoglobin 30.2 PG (27.0-31.0) 30.2 PG (27.0-31.0) Mean Corpuscular Hemoglobin Concent 31.5 G/DL (32.0-36.0) 31.4 G/DL (32.0-36.0) Red Cell Distribution Width 14.7 % (11.6-14.8) 14.9 % (11.6-14.8) Platelet Count 110 K/UL (150-450) 118 K/UL (150-450) Mean Platelet Volume 8.4 FL (6.5-10.1) 7.4 FL (6.5-10.1) Neutrophils (%) (Auto) % (45.0-75.0) % (45.0-75.0) Lymphocytes (%) (Auto) % (20.0-45.0) % (20.0-45.0) Monocytes (%) (Auto) % (1.0-10.0) % (1.0-10.0) Eosinophils (%) (Auto) % (0.0-3.0) % (0.0-3.0) Basophils (%) (Auto) % (0.0-2.0) % (0.0-2.0) Differential Total Cells Counted 100 100 Neutrophils % (Manual) 92 % (45-75) 91 % (45-75) Lymphocytes % (Manual) 3 % (20-45) 4 % (20-45) Monocytes % (Manual) 5 % (1-10) 5 % (1-10) Eosinophils % (Manual) 0 % (0-3) 0 % (0-3) Basophils % (Manual) 0 % (0-2) 0 % (0-2) Band Neutrophils 0 % (0-8) 0 % (0-8) Platelet Estimate Decreased Decreased Platelet Morphology Normal Normal Hypochromasia 1+ 1+ Anisocytosis 1+ 1+ Sodium Level 144 MMOL/L (136-145) 142 MMOL/L (136-145) Potassium Level 3.4 MMOL/L (3.5-5.1) 3.8 MMOL/L (3.5-5.1) Chloride Level 107 MMOL/L (98-107) 106 MMOL/L (98-107) Carbon Dioxide Level 36 MMOL/L (21-32) 32 MMOL/L (21-32) Anion Gap 1 mmol/L (5-15) 4 mmol/L (5-15) Blood Urea Nitrogen 27 mg/dL (7-18) 27 mg/dL (7-18) Creatinine 0.7 MG/DL (0.55-1.30) 0.7 MG/DL (0.55-1.30) Estimat Glomerular Filtration Rate mL/min (>60) mL/min (>60) Glucose Level 92 MG/DL (74-106) 174 MG/DL (74-106) Calcium Level 8.0 MG/DL (8.5-10.1) 8.3 MG/DL (8.5-10.1) Magnesium Level 1.7 MG/DL (1.8-2.4) 1.9 MG/DL (1.8-2.4) Arterial Blood pH 7.403 (7.350-7.450) Arterial Blood Partial Pressure CO2 54.6 mmHg (35.0-45.0) Arterial Blood Partial Pressure O2 75.4 mmHg (75.0-100.0) Arterial Blood HCO3 33.3 mmol/L (22.0-26.0) Arterial Blood Oxygen Saturation 94.3 % (95-100) Arterial Blood Base Excess 7.2 (-2-2) Delon Test Positive Phosphorus Level 3.0 MG/DL (2.5-4.9) Total Bilirubin 0.7 MG/DL (0.2-1.0) Direct Bilirubin 0.2 MG/DL (0.0-0.3) Aspartate Amino Transf (AST/SGOT) 26 U/L (15-37) Alanine Aminotransferase (ALT/SGPT) 53 U/L (12-78) Alkaline Phosphatase 63 U/L (46-116) Total Protein 5.7 G/DL (6.4-8.2) Albumin 2.4 G/DL (3.4-5.0) Height (Feet): 5 Height (Inches): 10.00 Weight (Pounds): 160 Objective General Appearance: sedated on ventilator Head: normocephalic, atraumatic Neck: supple ++ NG Respiratory: generally reduced bs + VENT Cardiovascular: tachycardia, HS1, HS2, RRR Gastrointestinal: non tender, soft Musculoskeletal: normal inspection Neurologic: sedated on ventilator Skin: no rash, palpation normal Conrado Morel MD Feb 06, 2019 09:35
--- NOTE | 2019-02-06 09:40 | NUR ---
RESPIRATORY NOTE: Attempted to wean pt again but pt gets really agitated, tried to sit up. RN So Yolanda called to the room to help me calm the patient. Pt still agitated, RN So Yolanda turns Fetanyl back on to calm the pt due to agitation. No SOB or resp distress noted at this time. Pt is back to sleep, no more agitation. RN Anjana Guerrero at bedside and aware. Will continue to monitor and suction q2h and as needed.
--- NOTE | 2019-02-06 10:23 | Nephrology Progress Note ---
Assessment/Plan Problem List: (1) Cardiac arrest (2) Prerenal azotemia (3) Hypernatremia (4) Hypoalbuminemia (5) HTN (hypertension) Assessment Pre renal Azotemia due to - Dehydration- - High Protein catabolic state as result of Doxy and steroids HyperNatremia due to free water deficit HypoAlbuminemia Plan Sugg: keep bp in check D5W IV fluid Avoid Nephrotoxics Monitor lytes per consultants Subjective ROS Limited/Unobtainable: Yes Objective Objective Last 24 Hour Vital Signs Date Time Temp Pulse Resp B/P (MAP) Pulse Ox O2 Delivery O2 Flow Rate FiO2 02/06/19 09:30 61 16 110/64 (79) 100 02/06/19 09:15 110/65 02/06/19 09:05 62 16 30 02/06/19 09:00 61 110/65 02/06/19 09:00 57 16 110/65 (80) 100 02/06/19 08:30 63 16 93/48 (63) 100 02/06/19 08:00 97.8 60 16 86/50 (62) 100 02/06/19 08:00 Mechanical Ventilator 02/06/19 08:00 30 02/06/19 07:30 56 16 90/44 (59) 100 02/06/19 07:00 22 Mechanical Ventilator 30 02/06/19 07:00 55 16 99/54 (69) 100 02/06/19 06:43 62 16 30 02/06/19 06:30 63 16 82/56 (65) 100 02/06/19 06:00 22 Mechanical Ventilator 30 02/06/19 06:00 62 16 138/70 (92) 100 02/06/19 05:30 78 16 132/70 (90) 100 02/06/19 05:00 80 16 140/70 (93) 100 02/06/19 05:00 22 Mechanical Ventilator 30 02/06/19 04:41 82 18 30 02/06/19 04:30 83 16 150/62 (91) 100 02/06/19 04:00 71 02/06/19 04:00 30 02/06/19 04:00 22 Mechanical Ventilator 30 02/06/19 04:00 98.0 71 16 156/62 (93) 100 02/06/19 04:00 Mechanical Ventilator 02/06/19 03:24 85 21 130/70 (90) 100 02/06/19 03:06 74 17 30 02/06/19 03:00 25 Mechanical Ventilator 30 02/06/19 02:30 89 21 134/71 (92) 100 02/06/19 02:00 21 Mechanical Ventilator 30 02/06/19 02:00 89 21 139/89 (106) 100 02/06/19 01:30 89 26 113/76 (88) 98 02/06/19 01:20 87 18 30 02/06/19 01:00 78 24 140/84 (102) 100 02/06/19 01:00 21 Mechanical Ventilator 30 02/06/19 00:30 55 16 98/53 (68) 100 02/06/19 00:00 30 02/06/19 00:00 98.2 55 16 96/54 (68) 100 02/06/19 00:00 Mechanical Ventilator 02/06/19 00:00 17 Mechanical Ventilator 30 02/06/19 00:00 54 02/05/19 23:30 55 17 140/80 (100) 100 02/05/19 23:00 60 16 110/60 (77) 100 02/05/19 23:00 17 Mechanical Ventilator 30 02/05/19 22:32 51 16 30 02/05/19 22:30 70 16 119/62 (81) 100 02/05/19 22:00 49 16 96/55 (69) 100 02/05/19 22:00 16 Mechanical Ventilator 30 02/05/19 21:36 50 16 30 02/05/19 21:30 49 16 89/50 (63) 100 02/05/19 21:00 18 Mechanical Ventilator 30 02/05/19 21:00 50 17 85/55 (65) 100 02/05/19 20:30 51 16 86/47 (60) 100 02/05/19 20:00 98.0 55 16 96/51 (66) 100 02/05/19 20:00 18 Mechanical Ventilator 30 02/05/19 20:00 55 02/05/19 20:00 Mechanical Ventilator 02/05/19 19:30 61 16 119/55 (76) 100 02/05/19 19:08 61 16 30 02/05/19 19:00 69 18 103/53 (70) 100 02/05/19 19:00 19 Mechanical Ventilator 30 02/05/19 18:45 19 Mechanical Ventilator 30 02/05/19 18:45 69 18 154/86 (108) 100 02/05/19 18:30 19 Mechanical Ventilator 30 02/05/19 18:30 69 18 154/86 (108) 100 02/05/19 18:15 76 16 150/90 (110) 100 02/05/19 18:15 20 Mechanical Ventilator 30 02/05/19 18:00 76 18 127/106 (113) 99 02/05/19 18:00 24 Mechanical Ventilator 30 02/05/19 18:00 80 16 127/90 (102) 100 02/05/19 17:45 18 Mechanical Ventilator 30 02/05/19 17:45 76 18 127/106 (113) 99 02/05/19 17:30 79 17 141/63 (89) 100 02/05/19 17:30 16 Mechanical Ventilator 30 02/05/19 17:15 19 Mechanical Ventilator 30 02/05/19 17:05 77 22 30 02/05/19 17:00 64 14 147/61 (89) 100 02/05/19 17:00 18 Mechanical Ventilator 30 02/05/19 16:45 18 Mechanical Ventilator 30 02/05/19 16:45 64 14 147/61 (89) 100 02/05/19 16:30 16 Mechanical Ventilator 30 02/05/19 16:30 73 19 139/78 (98) 100 02/05/19 16:29 183/97 02/05/19 16:15 75 21 143/85 (104) 100 02/05/19 16:15 18 Mechanical Ventilator 02/05/19 16:00 Mechanical Ventilator 02/05/19 16:00 30 02/05/19 16:00 94 02/05/19 16:00 24 Mechanical Ventilator 30 02/05/19 16:00 98.0 93 19 213/89 (130) 97 02/05/19 15:30 78 18 156/80 (105) 100 02/05/19 15:26 81 17 30 02/05/19 15:00 78 18 156/80 (105) 100 02/05/19 15:00 30 02/05/19 15:00 18 Mechanical Ventilator 30 02/05/19 14:30 83 16 183/97 (125) 100 02/05/19 14:00 18 Mechanical Ventilator 30 02/05/19 14:00 30 02/05/19 14:00 84 15 178/91 (120) 100 02/05/19 13:30 16 Mechanical Ventilator 30 02/05/19 13:30 84 18 166/73 (104) 100 02/05/19 13:24 30 02/05/19 13:20 92 16 30 02/05/19 13:15 90 16 185/90 (121) 100 02/05/19 13:15 18 Mechanical Ventilator 30 02/05/19 13:00 90 16 185/90 (121) 100 02/05/19 13:00 16 Mechanical Ventilator 30 02/05/19 12:45 16 Mechanical Ventilator 30 02/05/19 12:45 82 19 163/72 (102) 100 02/05/19 12:30 82 19 163/72 (102) 100 02/05/19 12:30 16 Mechanical Ventilator 30 02/05/19 12:15 91 16 205/107 (139) 02/05/19 12:15 16 Mechanical Ventilator 30 02/05/19 12:00 97.7 91 16 205/107 (139) 02/05/19 12:00 30 02/05/19 12:00 98 02/05/19 12:00 19 Mechanical Ventilator 30 02/05/19 12:00 Mechanical Ventilator 02/05/19 11:45 87 17 165/85 (111) 100 02/05/19 11:45 16 Mechanical Ventilator 30 02/05/19 11:30 87 17 165/85 (111) 100 02/05/19 11:30 16 Mechanical Ventilator 30 02/05/19 11:15 88 17 179/94 (122) 99 02/05/19 11:15 19 Mechanical Ventilator 30 02/05/19 11:00 88 17 179/94 (122) 99 02/05/19 11:00 16 Mechanical Ventilator 30 02/05/19 10:45 16 Mechanical Ventilator 30 02/05/19 10:45 60 16 154/66 (95) 100 02/05/19 10:42 64 16 30 30 02/05/19 10:30 16 Mechanical Ventilator 30 02/05/19 10:30 60 16 154/66 (95) 100 Intake and Output 02/05/19 02/06/19 18:59 06:59 Intake Total 1556.375 ml 1548.625 ml Output Total 1145 ml 915 ml Balance 411.375 ml 633.625 ml Intake Free Water 30 ml 60 ml IV Total 1391.375 ml 1083.625 ml Tube Feeding 135 ml 405 ml Output Urine Total 1145 ml 915 ml # Bowel Movements 2 1 Laboratory Tests 02/05/19 12:45: Arterial Blood pH 7.403, Arterial Blood Partial Pressure CO2 54.6H, Arterial Blood Partial Pressure O2 75.4, Arterial Blood HCO3 33.3H, Arterial Blood Oxygen Saturation 94.3L, Arterial Blood Base Excess 7.2H, Delon Test Positive 02/06/19 05:37: White Blood Count 24.3*H, Red Blood Count 3.68L, Hemoglobin 11.1L, Hematocrit 35.4L, Mean Corpuscular Volume 96, Mean Corpuscular Hemoglobin 30.2, Mean Corpuscular Hemoglobin Concent 31.4L, Red Cell Distribution Width 14.9H, Platelet Count 118L, Mean Platelet Volume 7.4, Neutrophils (%) (Auto) , Lymphocytes (%) (Auto) , Monocytes (%) (Auto) , Eosinophils (%) (Auto) , Basophils (%) (Auto) , Differential Total Cells Counted 100, Neutrophils % ( Manual) 91H, Lymphocytes % (Manual) 4L, Monocytes % (Manual) 5, Eosinophils % ( Manual) 0, Basophils % (Manual) 0, Band Neutrophils 0, Platelet Estimate DecreasedL, Platelet Morphology Normal, Hypochromasia 1+, Anisocytosis 1+, Sodium Level 142, Potassium Level 3.8, Chloride Level 106, Carbon Dioxide Level 32, Anion Gap 4L, Blood Urea Nitrogen 27H, Creatinine 0.7, Estimat Glomerular Filtration Rate , Glucose Level 174H, Calcium Level 8.3L, Phosphorus Level 3.0, Magnesium Level 1.9, Total Bilirubin 0.7, Direct Bilirubin 0.2, Aspartate Amino Transf (AST/SGOT) 26, Alanine Aminotransferase (ALT/SGPT) 53, Alkaline Phosphatase 63, Total Protein 5.7L, Albumin 2.4L Height (Feet): 5 Height (Inches): 10.00 Weight (Pounds): 160 EENT: other - on Vent Cardiovascular: normal rate Respiratory/Chest: decreased breath sounds Abdomen: soft Objective no change Felipe Salmon MD Feb 06, 2019 10:23
[2019-02-06] MEDS: fentaNYL Citrate 2,500 MCG in NS 200 ML IV SCH ×2 (12:00→14:48)
--- NOTE | 2019-02-06 12:00 | NUR ---
NURSE NOTES: patient resting in bed comfortably. No acute distress noted. SR noted on the monitor. Patient was turned and repositioned. Fentanyl gtt at 10mcg/hr. at RASS -2. Patient kept clean and dry.
[2019-02-06] MEDS: LORazepam Inj 2mg/ml 1ml IV PRN (14:18)
--- NOTE | 2019-02-06 14:30 | NUR ---
NURSE NOTES: Patient was very agitated, tried to reach for ETT, increased fentanyl drip, running at 15mcg/hr. Patient at RASS -2 at this time. Patient on bilateral soft wrist restraints. no skin breakdown noted. Family at bedside, VSS.
--- NOTE | 2019-02-06 14:52 | NUR ---
RD ASSESSMENT & RECOMMENDATIONS SEE CARE ACTIVITY FOR COMPLETE ASSESSMENT DAILY ESTIMATED NEEDS: Needs based on Critical care, 61kg 25-30 kcals/kg 7930-1783 total kcals 1.2-2 g protein/kg 73-122 g total protein 25-30 mL/kg 5189-2291 total fluid mLs NUTRITION DIAGNOSIS: * Swallowing difficulty R/T respiratory status as evidenced by pt s/p cardiac arrest, s/p intubation, NGT feeds initiated. CURRENT TF:Vital 1.2 @55ml/hr x 24 hrs PO DIET RECOMMENDATIONS: FURNACE BUILDER eval upon extubation ENTERAL NUTRITION RECOMMENDATIONS: Vital AF 1.2 @55ml/hr x24 hrs to provide 1320ml, 1584 kcal, 99g pro, 1071ml free H2O - Maintain Vital 1.2 @ goal as tolerated. - Flush per MD, HOB over 30 degrees. W/ daily weaning trials and TF being held consider 18hr feeds to meet est needs while feeding is on: rec VITAL 1.2 w/ goal of 75ml/hr x18 hrs to provide 1350ml, 1620 kcal, 101g pro, 1095ml free H2O. ADDITIONAL RECOMMENDATIONS: * W/ hemodynamic stability, TF recs as above * Calibrated bed scale wts * FURNACE BUILDER eval for appropriate texture s/p extubation * Lytes, daily, replete as needed * Monitor BGs closely while on steroidal med. -> rec DC D5 IVF and increase H20 flushes instead for BG control .
--- NOTE | 2019-02-06 16:25 | NUR ---
NURSE NOTES: Oral care and go care provided. Patient noted with moderate bridges sputum from endotracheal tube. VSS. No acute distress noted. Patient was turned and repositioned.
--- NOTE | 2019-02-06 17:33 | Pulmonolgy Critical Care Note ---
Critical Care - Asmt/Plan Assessment/Plan: Pulmonary Critical Care Progress Note HPI Patient is a 73 year olf man with previous history of COPD, CHF, HTN, DM admitted with extreme respiratory distress, intubated in the ED, subsequent Cardiac Arrest. Noted to have hypercapneic respiratory failure. Interactive today, improved ventilator requirements, did not tolerate weaning today CT Head negative Allergies: No Known Allergies Past Medical History: COPD/Asthma, CHF, Hypertension, DM All Other Systems: limited Physical Exam Vital signs noted General Appearance: sedated on ventilator Head: normocephalic, atraumatic Eyes: bilateral eye PERRL, bilateral eye EOMI ENT: moist mm, no LN Neck: supple Respiratory: generally reduced BS, occasional wheeze Cardiovascular: tachycardia, HS1, HS2, RRR Gastrointestinal: non tender, soft Musculoskeletal: normal inspection Neurologic: sedated on ventilator Skin: no rash, palpation normal Impression: COPD exacerbation Hypercapneic respiratory failure S/p cardiac arrest in the ED CHF HTN Diabetes Plan Wean as tolerated Adjust FIO2 for sats 90-94% HHN Q4 IV Solumedrol Sedation PRN Sz management Monitor labs PPX IV Doxycycline DNR status Labs Test 01/26/19 05:45 White Blood Count 9.6 K/UL (4.8-10.8) Red Blood Count 4.57 M/UL (4.70-6.10) Hemoglobin 13.5 G/DL (14.2-18.0) Hematocrit 46.0 % (42.0-52.0) Mean Corpuscular Volume 101 FL (80-99) Mean Corpuscular Hemoglobin 29.6 PG (27.0-31.0) Mean Corpuscular Hemoglobin Concent 29.4 G/DL (32.0-36.0) Red Cell Distribution Width 15.2 % (11.6-14.8) Platelet Count 181 K/UL (150-450) Mean Platelet Volume 7.5 FL (6.5-10.1) Neutrophils (%) (Auto) 49.7 % (45.0-75.0) Lymphocytes (%) (Auto) 33.3 % (20.0-45.0) Monocytes (%) (Auto) 8.2 % (1.0-10.0) Eosinophils (%) (Auto) 8.2 % (0.0-3.0) Basophils (%) (Auto) 0.7 % (0.0-2.0) Lactic Acid Level 0.80 mmol/L (0.4-2.0) Chest X-Ray: No consolidation, no effusion, ETT tube 7cm, RIJ line good position Critical Care - Objective Last 24 Hour Vital Signs Date Time Temp Pulse Resp B/P (MAP) Pulse Ox O2 Delivery O2 Flow Rate FiO2 02/06/19 16:30 97.8 78 14 159/64 (95) 100 02/06/19 16:00 30 02/06/19 16:00 60 16 165/94 (117) 100 02/06/19 16:00 66 02/06/19 16:00 Mechanical Ventilator 02/06/19 15:30 69 16 120/62 (81) 100 02/06/19 15:00 16 Mechanical Ventilator 30 02/06/19 15:00 72 16 152/68 (96) 100 02/06/19 14:52 68 16 30 02/06/19 14:48 16 Mechanical Ventilator 30 02/06/19 14:45 16 Mechanical Ventilator 30 02/06/19 14:30 72 16 134/62 (86) 100 02/06/19 14:30 16 Mechanical Ventilator 30 02/06/19 14:25 16 Mechanical Ventilator 30 02/06/19 14:20 16 Mechanical Ventilator 30 02/06/19 14:15 16 Mechanical Ventilator 30 02/06/19 14:10 16 Mechanical Ventilator 30 02/06/19 14:05 16 Mechanical Ventilator 30 02/06/19 14:00 16 Mechanical Ventilator 30 02/06/19 14:00 75 20 179/96 (123) 100 02/06/19 13:30 66 16 145/68 (93) 100 02/06/19 13:00 67 16 146/64 (91) 100 02/06/19 13:00 16 Mechanical Ventilator 30 02/06/19 12:55 65 16 30 02/06/19 12:30 65 16 149/66 (93) 100 02/06/19 12:15 61 16 147/62 (90) 100 02/06/19 12:00 98.1 66 16 120/65 (83) 100 02/06/19 12:00 Mechanical Ventilator 02/06/19 12:00 16 Mechanical Ventilator 30 02/06/19 12:00 68 02/06/19 12:00 30 02/06/19 11:30 65 16 123/56 (78) 100 02/06/19 11:30 16 Mechanical Ventilator 30 02/06/19 11:15 65 16 114/94 (101) 02/06/19 11:00 64 16 118/61 (80) 100 02/06/19 11:00 16 Mechanical Ventilator 30 02/06/19 10:47 64 16 30 02/06/19 10:45 65 16 110/61 (77) 100 02/06/19 10:45 16 Mechanical Ventilator 30 02/06/19 10:30 16 Mechanical Ventilator 30 02/06/19 10:30 66 16 116/52 (73) 100 02/06/19 10:15 68 16 125/60 (81) 100 02/06/19 10:10 16 Mechanical Ventilator 30 02/06/19 10:05 Mechanical Ventilator 30 02/06/19 10:00 16 Mechanical Ventilator 30 02/06/19 10:00 79 16 110/65 (80) 100 02/06/19 09:55 16 Mechanical Ventilator 02/06/19 09:50 16 Mechanical Ventilator 30 02/06/19 09:45 16 Non-Rebreather 30 02/06/19 09:40 16 Mechanical Ventilator 30 02/06/19 09:35 16 Mechanical Ventilator 30 02/06/19 09:30 61 16 110/64 (79) 100 02/06/19 09:30 18 Mechanical Ventilator 30 02/06/19 09:15 110/65 02/06/19 09:05 62 16 30 02/06/19 09:00 61 110/65 02/06/19 09:00 57 16 110/65 (80) 100 02/06/19 08:30 63 16 93/48 (63) 100 02/06/19 08:00 97.8 60 16 86/50 (62) 100 02/06/19 08:00 16 Mechanical Ventilator 30 02/06/19 08:00 Mechanical Ventilator 02/06/19 08:00 30 02/06/19 08:00 54 02/06/19 07:30 56 16 90/44 (59) 100 02/06/19 07:00 22 Mechanical Ventilator 30 02/06/19 07:00 55 16 99/54 (69) 100 02/06/19 06:43 62 16 30 02/06/19 06:30 63 16 82/56 (65) 100 02/06/19 06:00 22 Mechanical Ventilator 30 02/06/19 06:00 62 16 138/70 (92) 100 02/06/19 05:30 78 16 132/70 (90) 100 02/06/19 05:00 80 16 140/70 (93) 100 02/06/19 05:00 22 Mechanical Ventilator 30 02/06/19 04:41 82 18 30 02/06/19 04:30 83 16 150/62 (91) 100 02/06/19 04:00 71 02/06/19 04:00 30 02/06/19 04:00 22 Mechanical Ventilator 30 02/06/19 04:00 98.0 71 16 156/62 (93) 100 02/06/19 04:00 Mechanical Ventilator 02/06/19 03:24 85 21 130/70 (90) 100 02/06/19 03:06 74 17 30 02/06/19 03:00 25 Mechanical Ventilator 30 02/06/19 02:30 89 21 134/71 (92) 100 02/06/19 02:00 21 Mechanical Ventilator 30 02/06/19 02:00 89 21 139/89 (106) 100 02/06/19 01:30 89 26 113/76 (88) 98 02/06/19 01:20 87 18 30 02/06/19 01:00 78 24 140/84 (102) 100 02/06/19 01:00 21 Mechanical Ventilator 30 02/06/19 00:30 55 16 98/53 (68) 100 02/06/19 00:00 30 02/06/19 00:00 98.2 55 16 96/54 (68) 100 02/06/19 00:00 Mechanical Ventilator 02/06/19 00:00 17 Mechanical Ventilator 30 02/06/19 00:00 54 02/05/19 23:30 55 17 140/80 (100) 100 02/05/19 23:00 60 16 110/60 (77) 100 02/05/19 23:00 17 Mechanical Ventilator 30 02/05/19 22:32 51 16 30 02/05/19 22:30 70 16 119/62 (81) 100 02/05/19 22:00 49 16 96/55 (69) 100 02/05/19 22:00 16 Mechanical Ventilator 30 8/20/19 21:36 50 16 30 02/05/19 21:30 49 16 89/50 (63) 100 02/05/19 21:00 18 Mechanical Ventilator 30 02/05/19 21:00 50 17 85/55 (65) 100 02/05/19 20:30 51 16 86/47 (60) 100 02/05/19 20:00 98.0 55 16 96/51 (66) 100 02/05/19 20:00 18 Mechanical Ventilator 30 02/05/19 20:00 55 02/05/19 20:00 Mechanical Ventilator 02/05/19 19:30 61 16 119/55 (76) 100 02/05/19 19:08 61 16 30 02/05/19 19:00 69 18 103/53 (70) 100 02/05/19 19:00 19 Mechanical Ventilator 30 02/05/19 18:45 19 Mechanical Ventilator 30 02/05/19 18:45 69 18 154/86 (108) 100 02/05/19 18:30 19 Mechanical Ventilator 30 02/05/19 18:30 69 18 154/86 (108) 100 02/05/19 18:15 76 16 150/90 (110) 100 02/05/19 18:15 20 Mechanical Ventilator 30 02/05/19 18:00 76 18 127/106 (113) 99 02/05/19 18:00 24 Mechanical Ventilator 30 02/05/19 18:00 80 16 127/90 (102) 100 02/05/19 17:45 18 Mechanical Ventilator 30 02/05/19 17:45 76 18 127/106 (113) 99 Accucheck: 108 Critical Care - Subjective ROS Limited/Unobtainable: No FI02: 30 Vent Support Breath Rate: 16 Vent Support Mode: AC Vent Tidal Volume: 500 Sputum Amount: Small PEEP: 5.0 PIP: 29 Tube Feeding Amount: 45 I&O: Intake and Output 02/05/19 02/06/19 19:00 07:00 Intake Total 1588.500 ml 1489.0 ml Output Total 1150 ml 920 ml Balance 438.500 ml 569.0 ml Intake Free Water 30 ml 60 ml IV Total 1378.500 ml 1069.0 ml Tube Feeding 180 ml 360 ml Output Urine Total 1150 ml 920 ml # Bowel Movements 2 1 ET-Tube: 8.0 ET Position: 25 Johny White MD Feb 06, 2019 17:33
--- NOTE | 2019-02-06 18:00 | NUR ---
NURSE NOTES: Patient resting in bed comfortably. Family members at bedside. No acute distress noted. SR noted on the monitor, VS stable. Patient kept clean and dry.
--- NOTE | 2019-02-06 19:20 | NUR ---
RESPIRATORY NOTE: Received pt on AC 16, 500VT, 30%, PEEP +5. Pt intubated w/ ETT 8.0 @ 25cm lipline, secured by anchorfast. Pt alert/awake, follows commands. B/S bogdan. diminished, sxn minimal amounts of thin/thick, bridges-brown secretions. Both hands on soft restraints to prevent pt from self-extubation. Family at bedside. Vent plugged into red outlet, ambubag at bedside. Pt in no apparent distress at this time. Will continue to monitor pt.
--- NOTE | 2019-02-06 19:30 | NUR ---
NURSE NOTES: Recvd.on a vent.orally intubated.Awake able to follows simple command.See Settings.Failed weaning today.wean again in am.Suctioned tk,Beige sec.NS Lavaged.P.Ox-100%.See V/S.Scope SR.Denies CP.Pos. chg.Remain on soft wrist restraints prev.self-injury.Fentanyl drip in progress Tit.for light sedation.
--- NOTE | 2019-02-06 19:30 | NUR ---
HAND-OFF: Report given to GENNY Hebert.
--- NOTE | 2019-02-06 19:44 | Infectious Diseases Prog Note ---
Assessment/Plan Problems: (1) Aspiration pneumonia Assessment & Plan: now with thick secretion and dark, rule out new aspiration , will send sputum culture , and switch antibiotics to meropenem and vancomycin empirically for now. obtain CXR (2) Leukocytosis Assessment & Plan: rule out central line blood stream infection , and sepsis, will send blood culture x2 , and start meropenem and vancomycin empirically pending cultures (3) Acute exacerbation of chronic obstructive pulmonary disease (COPD) Assessment & Plan: continue doxycycline for five days only , and nebulizer treatment as per pulmonary (4) Cardiac arrest Assessment & Plan: etiology ? cardiology eval to rule out cardiac sources and neurology eval to evaluate his brain condition and to rule out anoxic brain injury (5) Chronic hypercapnic respiratory failure Assessment & Plan: S/P cardiac arrest , S/P intubation, monitor in ICU, failing weaning trials so far , pulmonary is following Subjective ROS Limited/Unobtainable: Yes Allergies: Coded Allergies: No Known Allergies (Unverified , 06/05/18) Subjective He is still intubated on mechanical ventilation, awake and responsive , on weaning trials , was agitated earlier , not febrile. Objective Vital Signs Last 24 Hour Vital Signs Date Time Temp Pulse Resp B/P (MAP) Pulse Ox O2 Delivery O2 Flow Rate FiO2 02/06/19 19:18 68 16 30 02/06/19 19:00 66 16 146/93 (110) 100 02/06/19 19:00 16 Mechanical Ventilator 30 02/06/19 18:30 65 16 142/67 (92) 100 02/06/19 18:00 66 16 143/69 (93) 100 02/06/19 18:00 16 Mechanical Ventilator 30 02/06/19 17:30 70 16 151/108 (122) 100 02/06/19 17:00 16 Mechanical Ventilator 30 02/06/19 17:00 74 16 152/63 (92) 100 02/06/19 16:40 84 16 30 02/06/19 16:30 97.8 78 14 159/64 (95) 100 02/06/19 16:00 30 02/06/19 16:00 16 Mechanical Ventilator 30 02/06/19 16:00 60 16 165/94 (117) 100 02/06/19 16:00 66 02/06/19 16:00 Mechanical Ventilator 02/06/19 15:30 69 16 120/62 (81) 100 02/06/19 15:00 16 Mechanical Ventilator 30 02/06/19 15:00 72 16 152/68 (96) 100 02/06/19 14:52 68 16 30 02/06/19 14:48 16 Mechanical Ventilator 30 02/06/19 14:45 16 Mechanical Ventilator 30 02/06/19 14:30 72 16 134/62 (86) 100 02/06/19 14:30 16 Mechanical Ventilator 30 02/06/19 14:25 16 Mechanical Ventilator 30 02/06/19 14:20 16 Mechanical Ventilator 30 02/06/19 14:15 16 Mechanical Ventilator 30 02/06/19 14:10 16 Mechanical Ventilator 30 02/06/19 14:05 16 Mechanical Ventilator 30 02/06/19 14:00 16 Mechanical Ventilator 30 02/06/19 14:00 75 20 179/96 (123) 100 02/06/19 13:30 66 16 145/68 (93) 100 02/06/19 13:00 67 16 146/64 (91) 100 02/06/19 13:00 16 Mechanical Ventilator 30 02/06/19 12:55 65 16 30 02/06/19 12:30 65 16 149/66 (93) 100 02/06/19 12:15 61 16 147/62 (90) 100 02/06/19 12:00 98.1 66 16 120/65 (83) 100 02/06/19 12:00 Mechanical Ventilator 02/06/19 12:00 16 Mechanical Ventilator 30 02/06/19 12:00 68 02/06/19 12:00 30 02/06/19 11:30 65 16 123/56 (78) 100 02/06/19 11:30 16 Mechanical Ventilator 30 02/06/19 11:15 65 16 114/94 (101) 02/06/19 11:00 64 16 118/61 (80) 100 02/06/19 11:00 16 Mechanical Ventilator 30 02/06/19 10:47 64 16 30 02/06/19 10:45 65 16 110/61 (77) 100 02/06/19 10:45 16 Mechanical Ventilator 30 02/06/19 10:30 16 Mechanical Ventilator 30 02/06/19 10:30 66 16 116/52 (73) 100 02/06/19 10:15 68 16 125/60 (81) 100 02/06/19 10:10 16 Mechanical Ventilator 30 02/06/19 10:05 Mechanical Ventilator 30 02/06/19 10:00 16 Mechanical Ventilator 30 02/06/19 10:00 79 16 110/65 (80) 100 02/06/19 09:55 16 Mechanical Ventilator 30 02/06/19 09:50 16 Mechanical Ventilator 30 02/06/19 09:45 16 Non-Rebreather 30 02/06/19 09:40 16 Mechanical Ventilator 30 02/06/19 09:35 16 Mechanical Ventilator 30 02/06/19 09:30 61 16 110/64 (79) 100 02/06/19 09:30 18 Mechanical Ventilator 30 02/06/19 09:15 110/65 02/06/19 09:05 62 16 30 02/06/19 09:00 61 110/65 02/06/19 09:00 57 16 110/65 (80) 100 02/06/19 08:30 63 16 93/48 (63) 100 02/06/19 08:00 97.8 60 16 86/50 (62) 100 02/06/19 08:00 16 Mechanical Ventilator 30 02/06/19 08:00 Mechanical Ventilator 02/06/19 08:00 30 02/06/19 08:00 54 02/06/19 07:30 56 16 90/44 (59) 100 02/06/19 07:00 22 Mechanical Ventilator 30 02/06/19 07:00 55 16 99/54 (69) 100 02/06/19 06:43 62 16 30 02/06/19 06:30 63 16 82/56 (65) 100 02/06/19 06:00 22 Mechanical Ventilator 30 02/06/19 06:00 62 16 138/70 (92) 100 02/06/19 05:30 78 16 132/70 (90) 100 02/06/19 05:00 80 16 140/70 (93) 100 02/06/19 05:00 22 Mechanical Ventilator 30 02/06/19 04:41 82 18 30 02/06/19 04:30 83 16 150/62 (91) 100 02/06/19 04:00 71 02/06/19 04:00 30 02/06/19 04:00 22 Mechanical Ventilator 30 02/06/19 04:00 98.0 71 16 156/62 (93) 100 02/06/19 04:00 Mechanical Ventilator 02/06/19 03:24 85 21 130/70 (90) 100 02/06/19 03:06 74 17 30 02/06/19 03:00 25 Mechanical Ventilator 30 02/06/19 02:30 89 21 134/71 (92) 100 02/06/19 02:00 21 Mechanical Ventilator 30 02/06/19 02:00 89 21 139/89 (106) 100 02/06/19 01:30 89 26 113/76 (88) 98 02/06/19 01:20 87 18 30 02/06/19 01:00 78 24 140/84 (102) 100 02/06/19 01:00 21 Mechanical Ventilator 30 02/06/19 00:30 55 16 98/53 (68) 100 02/06/19 00:00 30 02/06/19 00:00 98.2 55 16 96/54 (68) 100 02/06/19 00:00 Mechanical Ventilator 02/06/19 00:00 17 Mechanical Ventilator 30 02/06/19 00:00 54 02/05/19 23:30 55 17 140/80 (100) 100 02/05/19 23:00 60 16 110/60 (77) 100 02/05/19 23:00 17 Mechanical Ventilator 30 02/05/19 22:32 51 16 30 02/05/19 22:30 70 16 119/62 (81) 100 02/05/19 22:00 49 16 96/55 (69) 100 02/05/19 22:00 16 Mechanical Ventilator 02/05/19 21:36 50 16 30 02/05/19 21:30 49 16 89/50 (63) 100 02/05/19 21:00 18 Mechanical Ventilator 30 02/05/19 21:00 50 17 85/55 (65) 100 02/05/19 20:30 51 16 86/47 (60) 100 02/05/19 20:00 98.0 55 16 96/51 (66) 100 02/05/19 20:00 18 Mechanical Ventilator 30 02/05/19 20:00 55 02/05/19 20:00 Mechanical Ventilator Height (Feet): 5 Height (Inches): 10.00 Weight (Pounds): 160 General Appearance: no acute distress, cachetic HEENT: normocephalic, atraumatic, anicteric, mucous membranes moist, PERRL, supple, no JVD Respiratory/Chest: chest wall non-tender, no respiratory distress, no accessory muscle use, decreased breath sounds, crackles/rales Cardiovascular: normal peripheral pulses, normal rate, regular rhythm, no gallop/murmur, no JVD Abdomen: normal bowel sounds, soft, non tender, no organomegaly, non distended , no mass, no scars Genitourinary: normal external genitalia Extremities: no cyanosis, no clubbing Skin: no rash, no lesions Neurologic/Psychiatric: alert, responsive Laboratory Tests Test 02/06/19 05:37 White Blood Count 24.3 K/UL (4.8-10.8) *H Red Blood Count 3.68 M/UL (4.70-6.10) L Hemoglobin 11.1 G/DL (14.2-18.0) L Hematocrit 35.4 % (42.0-52.0) L Mean Corpuscular Volume 96 FL (80-99) Mean Corpuscular Hemoglobin 30.2 PG (27.0-31.0) Mean Corpuscular Hemoglobin Concent 31.4 G/DL (32.0-36.0) L Red Cell Distribution Width 14.9 % (11.6-14.8) H Platelet Count 118 K/UL (150-450) L Mean Platelet Volume 7.4 FL (6.5-10.1) Neutrophils (%) (Auto) % (45.0-75.0) Lymphocytes (%) (Auto) % (20.0-45.0) Monocytes (%) (Auto) % (1.0-10.0) Eosinophils (%) (Auto) % (0.0-3.0) Basophils (%) (Auto) % (0.0-2.0) Differential Total Cells Counted 100 Neutrophils % (Manual) 91 % (45-75) H Lymphocytes % (Manual) 4 % (20-45) L Monocytes % (Manual) 5 % (1-10) Eosinophils % (Manual) 0 % (0-3) Basophils % (Manual) 0 % (0-2) Band Neutrophils 0 % (0-8) Platelet Estimate Decreased L Platelet Morphology Normal Hypochromasia 1+ Anisocytosis 1+ Sodium Level 142 MMOL/L (136-145) Potassium Level 3.8 MMOL/L (3.5-5.1) Chloride Level 106 MMOL/L (98-107) Carbon Dioxide Level 32 MMOL/L (21-32) Anion Gap 4 mmol/L (5-15) L Blood Urea Nitrogen 27 mg/dL (7-18) H Creatinine 0.7 MG/DL (0.55-1.30) Estimat Glomerular Filtration Rate mL/min (>60) Glucose Level 174 MG/DL (74-106) H Calcium Level 8.3 MG/DL (8.5-10.1) L Phosphorus Level 3.0 MG/DL (2.5-4.9) Magnesium Level 1.9 MG/DL (1.8-2.4) Total Bilirubin 0.7 MG/DL (0.2-1.0) Direct Bilirubin 0.2 MG/DL (0.0-0.3) Aspartate Amino Transf (AST/SGOT) 26 U/L (15-37) Alanine Aminotransferase (ALT/SGPT) 53 U/L (12-78) Alkaline Phosphatase 63 U/L (46-116) Total Protein 5.7 G/DL (6.4-8.2) L Albumin 2.4 G/DL (3.4-5.0) L Current Medications Medications (Trade) Dose Ordered Sig/Brittani Route PRN Reason Start Time Stop Time Status Last Admin Dose Admin Acetaminophen (Tylenol) 650 mg Q4H PRN NG FOR MILD PAIN 01/26/19 10:15 02/25/19 10:14 Chlorhexidine Gluconate (Renetta-Hex 2%) 1 applic DAILY@2000 TOPIC 01/27/19 20:00 02/26/19 19:59 02/05/19 20:10 Dextrose 1,000 ml @ 75 mls/hr [id number] IV 02/03/19 12:00 03/05/19 11:59 02/06/19 09:23 Dextrose (Dextrose 50%) 25 ml Q30M PRN IV Hypoglycemia 01/26/19 10:30 02/25/19 10:29 Dextrose (Dextrose 50%) 50 ml Q30M PRN IV Hypoglycemia 01/26/19 10:30 02/25/19 10:29 Docusate Sodium (Colace) 100 mg BID NG 02/02/19 18:00 03/04/19 17:59 02/06/19 17:53 Dopamine HCl/ Dextrose 250 ml @ 0 mls/hr Q24H IV 02/06/19 09:15 03/08/19 09:14 Enoxaparin Sodium (Lovenox) 40 mg DAILY SUBQ 01/31/19 09:00 03/02/19 08:59 02/06/19 09:22 Fentanyl Citrate 2500 mcg/Sodium Chloride 250 ml @ 0 mls/hr Q24H IV 02/02/19 12:00 02/09/19 11:59 02/06/19 14:48 Hydralazine HCl (Apresoline) 25 mg Q6H PRN ORAL For High Blood Pressure 02/04/19 17:00 03/06/19 16:59 02/05/19 16:29 Insulin Aspart (NovoLOG) Q6HR SUBQ 01/26/19 12:00 02/25/19 11:59 02/06/19 17:54 Methylprednisolone Sodium Succinate (Solu-MEDROL) 60 mg EVERY 12 HOURS IVP 01/29/19 21:00 02/28/19 20:59 02/06/19 09:20 Pantoprazole (Protonix) 40 mg Q12HR IVP 02/03/19 21:00 02/25/19 10:59 02/06/19 09:20 Piperacillin Sod/ Tazobactam Sod 3.375 gm/Sodium Chloride 110 ml @ 27.5 mls/hr EVERY 8 HOURS IVPB 01/27/19 20:00 02/07/19 23:59 02/06/19 14:18 Polyethylene Glycol (Miralax) 17 gm BEDTIME GT 02/01/19 21:00 03/03/19 20:59 02/03/19 21:10 Frnace Orlando M.D. Feb 06, 2019 19:44
[2019-02-06] MEDS: Dyna-Hex 2% Top Sol 2oz TOPIC SCH (19:56)
[2019-02-06] MEDS: Miralax 17gm pkt GT SCH (20:59)
[2019-02-06] MEDS: Meropenem 1 GM in NS 55 ML IVPB SCH (21:38)
--- NOTE | 2019-02-06 22:20 | NUR ---
NURSE NOTES: HS care provided.Pos.to comfort.Due meds admin.Maintain on IV Hydration.NGT Feeding Saeid.F/Cath patent Diuresis well See I/O.
[2019-02-06] MEDS: Vancomycin 1gm/D5W 275ml IVPB SCH ×2 (22:52)
[2019-02-07] VITALS (49 sets, daily range): BP systolic 95–185; BP diastolic 48–96
--- NOTE | 2019-02-07 00:15 | NUR ---
NURSE NOTES: Repositioned,Suctioned.Neuro Status same.Noted to have susana down at 200mcg of Fentanyl.Rate drops to 150mcg.Closely monitored.FSBS-125 covered.
--- NOTE | 2019-02-07 02:30 | NUR ---
NURSE NOTES: Pos.chg.suctioned.Off/ON restless agitated.Reassured.Re-oriented.Maintain on Fentanyl drip.Cont.Plan of care.
--- NOTE | 2019-02-07 05:14 | NUR ---
NURSE NOTES: OFF and ON Restless/agitated.Kept comfortable.Maintain on Propofol drip.No Resp.Distress.Saeid.vent settings.Suctioned.Mary Tinsley.Saeid.NGT Feeding.See I/O. Addendum: 02/07/19 at 0712 by NICKY CERVANTES RN maintain on Fentanyl drip.
[2019-02-07] MEDS: Meropenem 1 GM in NS 55 ML IVPB SCH ×3 (05:32→20:53)
[2019-02-07] MEDS: NovoLOG Insulin Flexpen SUBQ SCH ×4 (05:49→23:39)
--- NOTE | 2019-02-07 07:12 | NUR ---
RESPIRATORY NOTE: received pt on current vent orders and orally intubated with ETT 8.0, placed 25cm at the lip. ETT secured via anchor fast with no visible redness around facial area. pt currently restless and asking to relax. weaning will be attempted later today. alarms are set and audible with ambu bag at bedside. will cont to monitor.
--- NOTE | 2019-02-07 07:19 | NUR ---
HAND-OFF: Report given to GENNY RANDOLPH.
--- NOTE | 2019-02-07 08:40 | Diagnostic Imaging Report ---
Indication: Cough, dyspnea Technique: One view of the chest Comparison: 02/01/2019 Findings: Stable satisfactory position of endotracheal tube and nasogastric tube, right jugular central venous catheter. The lungs remain hyperinflated. The heart size is normal. The aorta is tortuous and ectatic Impression: Unchanged, over 6 days, findings as above.
--- NOTE | 2019-02-07 08:40 | NUR ---
NURSE NOTES: Patient placed on weaning trial with setting of CPAP with PS of 8 with FIO2 30% with Peep of 5. HR is 97, with saturations of 100% with RR of 22 patient is awake and lightly sedated with fentanyl at 50mcg/hr, patient denies any pain over body.
[2019-02-07] MEDS: Docusate 100mg tablet NG SCH ×2 (09:00→18:00)
--- NOTE | 2019-02-07 09:04 | NUR ---
RADIOLOGY DEPT., CHEST X-RAY DONE.-P.DYE
[2019-02-07] MEDS: DOPamine 400mg/250ml 250 ML IV SCH (09:15)
[2019-02-07] MEDS: Solu-MEDROL 125mg Inj IVP SCH (09:53)
[2019-02-07] MEDS: Pantoprazole Inj IVP SCH ×2 (09:53→20:51)
[2019-02-07] MEDS: fentaNYL Citrate 2,500 MCG in NS 200 ML IV SCH (09:54)
[2019-02-07] MEDS: Enoxaparin 40mg Inj SUBQ SCH (09:55)
--- NOTE | 2019-02-07 10:45 | NUR ---
RESPIRATORY NOTE: pt continuing weaning, asked if he is okay and would like to take a break, pt nodded no in response. accessory muscles are being used. ABJoseph drawn, waiting on MD for response. RN aware. will cont to monitor Addendum: 02/07/19 at 1051 by NATY CONTRERAS RT RESPIRATORY NOTE: when RN asked pt if he's tired pt nodded yes. placed pt back on AC 6035
--- NOTE | 2019-02-07 10:45 | NUR ---
NURSE NOTES: Dr. Salmon updated at the bedside, no verbal orders given at this time. will continue plan of care.
--- NOTE | 2019-02-07 10:49 | Nephrology Progress Note ---
Assessment/Plan Problem List: (1) Cardiac arrest (2) Prerenal azotemia (3) Hypernatremia (4) Hypoalbuminemia (5) HTN (hypertension) Assessment Pre renal Azotemia due to - Dehydration- - High Protein catabolic state as result of Doxy and steroids HyperNatremia due to free water deficit HypoAlbuminemia Plan Sugg: keep bp in check stop D5W IV fluid Avoid Nephrotoxics Monitor lytes per consultants Subjective ROS Limited/Unobtainable: Yes Objective Objective Last 24 Hour Vital Signs Date Time Temp Pulse Resp B/P (MAP) Pulse Ox O2 Delivery O2 Flow Rate FiO2 02/07/19 10:38 82 18 30 02/07/19 09:54 17 Mechanical Ventilator 30 02/07/19 09:15 175/75 02/07/19 08:30 30 02/07/19 08:30 95 20 169/74 (105) 100 02/07/19 08:30 99 02/07/19 08:30 89 15 30 02/07/19 08:00 98.8 90 19 170/94 (119) 100 02/07/19 08:00 30 02/07/19 07:30 93 17 181/87 (118) 100 02/07/19 07:10 96 18 30 02/07/19 07:09 82 16 147/95 (112) 100 02/07/19 07:00 82 16 147/95 (112) 100 02/07/19 07:00 16 Mechanical Ventilator 30 02/07/19 06:30 92 16 164/91 (115) 100 02/07/19 06:00 88 16 174/95 (121) 100 02/07/19 06:00 16 Mechanical Ventilator 30 02/07/19 05:30 89 17 156/69 (98) 100 02/07/19 05:00 85 17 30 02/07/19 05:00 84 16 171/77 (108) 100 02/07/19 05:00 17 Mechanical Ventilator 30 02/07/19 04:30 91 17 105/81 (89) 100 02/07/19 04:00 30 02/07/19 04:00 16 Mechanical Ventilator 30 02/07/19 04:00 98.8 86 17 160/90 (113) 100 02/07/19 04:00 Mechanical Ventilator 02/07/19 04:00 86 02/07/19 03:30 81 19 167/82 (110) 100 02/07/19 03:00 16 Mechanical Ventilator 30 02/07/19 03:00 52 16 105/73 (84) 100 02/07/19 02:51 59 16 30 02/07/19 02:30 61 16 103/53 (70) 100 02/07/19 02:00 16 Mechanical Ventilator 30 02/07/19 02:00 60 16 108/59 (75) 100 02/07/19 01:30 61 16 108/48 (68) 100 02/07/19 01:00 17 Mechanical Ventilator 30 02/07/19 01:00 58 16 30 02/07/19 01:00 58 16 100/60 (73) 100 02/07/19 00:30 62 16 113/53 (73) 100 02/07/19 00:00 62 02/07/19 00:00 98.7 62 16 102/52 (69) 100 02/07/19 00:00 Mechanical Ventilator 02/07/19 00:00 16 Mechanical Ventilator 30 02/07/19 00:00 30 02/06/19 23:30 63 16 150/54 (86) 100 02/06/19 23:20 65 16 30 02/06/19 23:00 75 20 164/71 (102) 100 02/06/19 23:00 16 Mechanical Ventilator 30 02/06/19 22:30 55 16 106/53 (70) 100 02/06/19 22:00 52 16 112/64 (80) 100 02/06/19 22:00 16 Mechanical Ventilator 30 02/06/19 21:30 50 16 128/64 (85) 100 02/06/19 21:09 57 16 30 02/06/19 21:00 60 16 103/55 (71) 100 02/06/19 21:00 16 Mechanical Ventilator 30 02/06/19 20:30 58 16 124/64 (84) 100 02/06/19 20:00 30 02/06/19 20:00 Mechanical Ventilator 02/06/19 20:00 62 02/06/19 20:00 98.6 62 17 119/60 (79) 100 02/06/19 20:00 16 Mechanical Ventilator 30 02/06/19 19:30 65 16 145/61 (89) 100 02/06/19 19:18 68 16 30 02/06/19 19:00 66 16 146/93 (110) 100 02/06/19 19:00 16 Mechanical Ventilator 30 02/06/19 18:30 65 16 142/67 (92) 100 02/06/19 18:00 66 16 143/69 (93) 100 02/06/19 18:00 16 Mechanical Ventilator 30 02/06/19 17:30 70 16 151/108 (122) 100 02/06/19 17:00 16 Mechanical Ventilator 30 02/06/19 17:00 74 16 152/63 (92) 100 02/06/19 16:40 84 16 30 02/06/19 16:30 97.8 78 14 159/64 (95) 100 02/06/19 16:00 30 02/06/19 16:00 16 Mechanical Ventilator 30 02/06/19 16:00 60 16 165/94 (117) 100 02/06/19 16:00 66 02/06/19 16:00 Mechanical Ventilator 02/06/19 15:30 69 16 120/62 (81) 100 02/06/19 15:00 16 Mechanical Ventilator 30 02/06/19 15:00 72 16 152/68 (96) 100 02/06/19 14:52 68 16 30 02/06/19 14:48 16 Mechanical Ventilator 30 02/06/19 14:45 16 Mechanical Ventilator 30 02/06/19 14:30 72 16 134/62 (86) 100 02/06/19 14:30 16 Mechanical Ventilator 30 02/06/19 14:25 16 Mechanical Ventilator 30 02/06/19 14:20 16 Mechanical Ventilator 30 02/06/19 14:15 16 Mechanical Ventilator 30 02/06/19 14:10 16 Mechanical Ventilator 30 02/06/19 14:05 16 Mechanical Ventilator 30 02/06/19 14:00 16 Mechanical Ventilator 30 02/06/19 14:00 75 20 179/96 (123) 100 02/06/19 13:30 66 16 145/68 (93) 100 02/06/19 13:00 67 16 146/64 (91) 100 02/06/19 13:00 16 Mechanical Ventilator 30 02/06/19 12:55 65 16 30 02/06/19 12:30 65 16 149/66 (93) 100 02/06/19 12:15 61 16 147/62 (90) 100 02/06/19 12:00 98.1 66 16 120/65 (83) 100 02/06/19 12:00 Mechanical Ventilator 02/06/19 12:00 16 Mechanical Ventilator 30 02/06/19 12:00 68 02/06/19 12:00 30 02/06/19 11:30 65 16 123/56 (78) 100 02/06/19 11:30 16 Mechanical Ventilator 30 02/06/19 11:15 65 16 114/94 (101) 02/06/19 11:00 64 16 118/61 (80) 100 02/06/19 11:00 16 Mechanical Ventilator 30 Intake and Output 02/06/19 02/07/19 18:59 06:59 Intake Total 1460.997 ml 2090 ml Output Total 885 ml 660 ml Balance 575.997 ml 1430 ml Intake Free Water 200 ml 80 ml IV Total 945.997 ml 1470 ml Tube Feeding 315 ml 540 ml Output Urine Total 885 ml 660 ml Laboratory Tests 02/07/19 10:20: Arterial Blood pH 7.375, Arterial Blood Partial Pressure CO2 57.2*H, Arterial Blood Partial Pressure O2 92.7, Arterial Blood HCO3 32.7H, Arterial Blood Oxygen Saturation 96.2, Arterial Blood Base Excess 6.1H, Delon Test Positive Height (Feet): 5 Height (Inches): 10.00 Weight (Pounds): 161 General Appearance: no apparent distress Cardiovascular: normal rate Respiratory/Chest: decreased breath sounds Abdomen: distended Objective no change Felipe Salmon MD Feb 07, 2019 10:49
--- NOTE | 2019-02-07 10:50 | NUR ---
NURSE NOTES: Patient placed back on ac16, TV: 500 FIO2 30% with peep of 5. increasing fentanyl to reach rass of -2, patient is gasping with deep and rapid breaths,
--- NOTE | 2019-02-07 10:57 | Hematology/Onc Progress Note ---
Assessment/Plan Assessment/Plan # Thrombocytopenia is likely due to underlying infection/sepsis v dic, reactive process --> hiv is neg, hepatitis is neg as well --> us of the abd from prior 2018 --> plt rend 140-->115-->105-->133-->110k--> 118k --> okay for ppx as long as above 75k --> meds have been reviewed # Anemia of chronic disease, due to multifactorial causes --> anemia panel reviewed from earlier in admission and c/w acd --> hgb goal is >7 --> no hemolysis is seen --> smear has been reviewed --> hgb trend 9.3-->11.1 # Leukocytosis/elevated white blood cell count, unspecified likely related to steroid meds --> have reviewed peripheral smear and bandemia/neutrophilia noted --> continue antibiotics if they have been started by ID team, zosyn --> monitor for resolution --> wbc trend 14-->18-->24.3 # COPD exacerbation with asp pna --> has been given steriods --> per id for aspiration prec on zosyn --> rochelle/vanc # Hypercapneic respiratory failure --> remains on vent --> sbt per pulm # S/p cardiac arrest in the ED # CHF # HTN # Diabetes # DNR status # Dysphagia with NG++ Time of note does not correspond to when patient was seen. Greatly appreciate consultation. Subjective HEENT: Denies: no symptoms, eye pain, blurred vision, tearing, double vision, ear pain, ear discharge, nose pain, nose congestion, throat pain, throat swelling, mouth pain, mouth swelling, other Cardiovascular: Denies: no symptoms, chest pain, edema, irregular heart rate, lightheadedness, palpitations, syncope, other Respiratory: Denies: no symptoms, cough, shortness of breath, SOB with excertion, SOB at rest, sputum, wheezing, other Gastrointestinal/Abdominal: Denies: no symptoms, abdomen distended, abdominal pain, black stools, tarry stools, blood in stool, constipated, diarrhea, difficulty swallowing, nausea, poor appetite, poor fluid intake, rectal bleeding , vomiting, other Genitourinary: Denies: no symptoms, burning, discharge, frequency, flank pain, hematuria, incontinence, pain, urgency, other Neurologic/Psychiatric: Denies: no symptoms, anxiety, depressed, emotional problems, headache, numbness, paresthesia, pre-existing deficit, seizure, tingling, tremors, weakness, other Endocrine: Denies: no symptoms, excessive sweating, flushing, intolerance to cold, intolerance to heat, increased hunger, increased thirst, increased urine, unexplained weight gain, unexplained weight loss, other Allergies: Coded Allergies: No Known Allergies (Unverified , 06/05/18) Subjective 02/01: no events to report, plt is lower, weaning trial initiated with mack gray rn, hiv neg 02/04: icu, wbc elevated, on abx 02/05: remains on vent, fighting vent, on abx remains on lovenox, on steriods 02/06: icu, on vent, vs stable, no sob or respiratory distress 02/07: remains in the icu, intubated, ng tube, weaning trial today Objective Objective Current Medications Medications (Trade) Dose Ordered Sig/Brittani Route PRN Reason Start Time Stop Time Status Last Admin Dose Admin Acetaminophen (Tylenol) 650 mg Q4H PRN NG FOR MILD PAIN 01/26/19 10:15 02/25/19 10:14 Chlorhexidine Gluconate (Renetta-Hex 2%) 1 applic DAILY@1999 TOPIC 01/27/19 20:00 02/26/19 19:59 02/06/19 19:56 Dextrose (Dextrose 50%) 25 ml Q30M PRN IV Hypoglycemia 01/26/19 10:30 02/25/19 10:29 Dextrose (Dextrose 50%) 50 ml Q30M PRN IV Hypoglycemia 01/26/19 10:30 02/25/19 10:29 Docusate Sodium (Colace) 100 mg BID NG 02/02/19 18:00 03/04/19 17:59 02/06/19 17:53 Dopamine HCl/ Dextrose 250 ml @ 0 mls/hr Q24H IV 02/06/19 09:15 03/08/19 09:14 Enoxaparin Sodium (Lovenox) 40 mg DAILY SUBQ 01/31/19 09:00 03/02/19 08:59 02/07/19 09:55 Fentanyl Citrate 2500 mcg/Sodium Chloride 250 ml @ 0 mls/hr Q24H IV 02/02/19 12:00 02/09/19 11:59 02/07/19 09:54 Hydralazine HCl (Apresoline) 25 mg Q6H PRN ORAL For High Blood Pressure 02/04/19 17:00 03/06/19 16:59 02/05/19 16:29 Insulin Aspart (NovoLOG) Q6HR SUBQ 01/26/19 12:00 02/25/19 11:59 02/07/19 05:49 Meropenem 1 gm/ Sodium Chloride 55 ml @ 110 mls/hr Q8HR IVPB 02/06/19 22:00 02/11/19 21:59 02/07/19 05:32 Methylprednisolone Sodium Succinate (Solu-MEDROL) 40 mg EVERY 12 HOURS IVP 02/07/19 21:00 03/09/19 20:59 UNV Methylprednisolone Sodium Succinate (Solu-MEDROL) 60 mg EVERY 12 HOURS IVP 01/29/19 21:00 02/28/19 20:59 02/07/19 09:53 Pantoprazole (Protonix) 40 mg Q12HR IVP 02/03/19 21:00 02/25/19 10:59 02/07/19 09:53 Polyethylene Glycol (Miralax) 17 gm BEDTIME GT 02/01/19 21:00 03/03/19 20:59 02/06/19 20:59 Vancomycin HCl (Vanco rx to dose) 1 ea DAILY PRN MISC Per rx protocol 02/06/19 20:00 03/08/19 19:59 Vancomycin HCl 1 gm/Dextrose 275 ml @ 183.708 mls/hr Q12HR@1100,2300 IVPB 02/06/19 23:00 02/11/19 22:59 02/06/19 22:52 Last 24 Hour Vital Signs Date Time Temp Pulse Resp B/P (MAP) Pulse Ox O2 Delivery O2 Flow Rate FiO2 02/07/19 10:38 82 18 30 02/07/19 09:54 17 Mechanical Ventilator 30 02/07/19 09:15 175/75 02/07/19 08:30 30 02/07/19 08:30 95 20 169/74 (105) 100 02/07/19 08:30 99 02/07/19 08:30 89 15 30 02/07/19 08:00 98.8 90 19 170/94 (119) 100 02/07/19 08:00 100 02/07/19 08:00 30 02/07/19 07:30 93 17 181/87 (118) 100 02/07/19 07:10 96 18 30 02/07/19 07:09 82 16 147/95 (112) 100 02/07/19 07:00 82 16 147/95 (112) 100 02/07/19 07:00 16 Mechanical Ventilator 30 02/07/19 06:30 92 16 164/91 (115) 100 02/07/19 06:00 88 16 174/95 (121) 100 02/07/19 06:00 16 Mechanical Ventilator 30 02/07/19 05:30 89 17 156/69 (98) 100 02/07/19 05:00 85 17 30 02/07/19 05:00 84 16 171/77 (108) 100 02/07/19 05:00 17 Mechanical Ventilator 30 02/07/19 04:30 91 17 105/81 (89) 100 02/07/19 04:00 30 02/07/19 04:00 16 Mechanical Ventilator 30 02/07/19 04:00 98.8 86 17 160/90 (113) 100 02/07/19 04:00 Mechanical Ventilator 02/07/19 04:00 86 02/07/19 03:30 81 19 167/82 (110) 100 02/07/19 03:00 16 Mechanical Ventilator 30 02/07/19 03:00 52 16 105/73 (84) 100 02/07/19 02:51 59 16 30 02/07/19 02:30 61 16 103/53 (70) 100 02/07/19 02:00 16 Mechanical Ventilator 30 02/07/19 02:00 60 16 108/59 (75) 100 02/07/19 01:30 61 16 108/48 (68) 100 02/07/19 01:00 17 Mechanical Ventilator 30 02/07/19 01:00 58 16 30 02/07/19 01:00 58 16 100/60 (73) 100 02/07/19 00:30 62 16 113/53 (73) 100 02/07/19 00:00 62 02/07/19 00:00 98.7 62 16 102/52 (69) 100 02/07/19 00:00 Mechanical Ventilator 02/07/19 00:00 16 Mechanical Ventilator 30 02/07/19 00:00 30 02/06/19 23:30 63 16 150/54 (86) 100 02/06/19 23:20 65 16 30 02/06/19 23:00 75 20 164/71 (102) 100 02/06/19 23:00 16 Mechanical Ventilator 30 02/06/19 22:30 55 16 106/53 (70) 100 02/06/19 22:00 52 16 112/64 (80) 100 02/06/19 22:00 16 Mechanical Ventilator 30 02/06/19 21:30 50 16 128/64 (85) 100 02/06/19 21:09 57 16 30 02/06/19 21:00 60 16 103/55 (71) 100 02/06/19 21:00 16 Mechanical Ventilator 30 02/06/19 20:30 58 16 124/64 (84) 100 02/06/19 20:00 30 02/06/19 20:00 Mechanical Ventilator 02/06/19 20:00 62 02/06/19 20:00 98.6 62 17 119/60 (79) 100 02/06/19 20:00 16 Mechanical Ventilator 30 02/06/19 19:30 65 16 145/61 (89) 100 02/06/19 19:18 68 16 30 02/06/19 19:00 66 16 146/93 (110) 100 02/06/19 19:00 16 Mechanical Ventilator 30 02/06/19 18:30 65 16 142/67 (92) 100 02/06/19 18:00 66 16 143/69 (93) 100 02/06/19 18:00 16 Mechanical Ventilator 30 02/06/19 17:30 70 16 151/108 (122) 100 02/06/19 17:00 16 Mechanical Ventilator 30 02/06/19 17:00 74 16 152/63 (92) 100 02/06/19 16:40 84 16 30 02/06/19 16:30 97.8 78 14 159/64 (95) 100 02/06/19 16:00 30 02/06/19 16:00 16 Mechanical Ventilator 30 02/06/19 16:00 60 16 165/94 (117) 100 02/06/19 16:00 66 02/06/19 16:00 Mechanical Ventilator 02/06/19 15:30 69 16 120/62 (81) 100 02/06/19 15:00 16 Mechanical Ventilator 30 02/06/19 15:00 72 16 152/68 (96) 100 02/06/19 14:52 68 16 30 02/06/19 14:48 16 Mechanical Ventilator 30 02/06/19 14:45 16 Mechanical Ventilator 30 02/06/19 14:30 72 16 134/62 (86) 100 02/06/19 14:30 16 Mechanical Ventilator 30 02/06/19 14:25 16 Mechanical Ventilator 30 02/06/19 14:20 16 Mechanical Ventilator 30 02/06/19 14:15 16 Mechanical Ventilator 30 02/06/19 14:10 16 Mechanical Ventilator 30 02/06/19 14:05 16 Mechanical Ventilator 30 02/06/19 14:00 16 Mechanical Ventilator 30 02/06/19 14:00 75 20 179/96 (123) 100 02/06/19 13:30 66 16 145/68 (93) 100 02/06/19 13:00 67 16 146/64 (91) 100 02/06/19 13:00 16 Mechanical Ventilator 30 02/06/19 12:55 65 16 30 02/06/19 12:30 65 16 149/66 (93) 100 02/06/19 12:15 61 16 147/62 (90) 100 02/06/19 12:00 98.1 66 16 120/65 (83) 100 02/06/19 12:00 Mechanical Ventilator 02/06/19 12:00 16 Mechanical Ventilator 30 02/06/19 12:00 68 02/06/19 12:00 30 02/06/19 11:30 65 16 123/56 (78) 100 02/06/19 11:30 16 Mechanical Ventilator 30 02/06/19 11:15 65 16 114/94 (101) 02/06/19 11:00 64 16 118/61 (80) 100 02/06/19 11:00 16 Mechanical Ventilator 30 02/06/19 10:47 64 16 30 02/06/19 10:45 65 16 110/61 (77) 100 02/06/19 10:45 16 Mechanical Ventilator 30 02/06/19 10:30 16 Mechanical Ventilator 30 02/06/19 10:30 66 16 116/52 (73) 100 02/06/19 10:15 68 16 125/60 (81) 100 02/06/19 10:10 16 Mechanical Ventilator 30 02/06/19 10:05 Mechanical Ventilator 30 02/06/19 10:00 16 Mechanical Ventilator 30 02/06/19 10:00 79 16 110/65 (80) 100 02/06/19 09:55 16 Mechanical Ventilator 30 02/06/19 09:50 16 Mechanical Ventilator 30 02/06/19 09:45 16 Non-Rebreather 30 02/06/19 09:40 16 Mechanical Ventilator 30 02/06/19 09:35 16 Mechanical Ventilator 30 02/06/19 09:30 61 16 110/64 (79) 100 02/06/19 09:30 18 Mechanical Ventilator 30 02/06/19 09:15 110/65 02/06/19 09:05 62 16 30 02/06/19 09:00 61 110/65 02/06/19 09:00 57 16 110/65 (80) 100 02/06/19 08:30 63 16 93/48 (63) 100 02/06/19 08:00 97.8 60 16 86/50 (62) 100 02/06/19 08:00 16 Mechanical Ventilator 30 02/06/19 08:00 Mechanical Ventilator 02/06/19 08:00 30 02/06/19 08:00 54 02/06/19 07:30 56 16 90/44 (59) 100 02/06/19 07:00 22 Mechanical Ventilator 30 02/06/19 07:00 55 16 99/54 (69) 100 02/06/19 06:43 62 16 30 02/06/19 06:30 63 16 82/56 (65) 100 02/06/19 06:00 62 16 90/50 (63) 100 02/06/19 06:00 22 Mechanical Ventilator 30 02/06/19 06:00 62 16 138/70 (92) 100 02/06/19 06:00 62 16 138/70 (92) 100 02/06/19 05:30 82 17 132/70 (90) 97 02/06/19 05:30 78 16 132/70 (90) 100 02/06/19 05:30 82 17 132/70 (90) 97 02/06/19 05:00 80 16 140/70 (93) 100 02/06/19 05:00 77 14 109/71 (84) 100 02/06/19 05:00 22 Mechanical Ventilator 30 02/06/19 05:00 77 14 109/71 (84) 100 02/06/19 04:41 82 18 30 02/06/19 04:30 83 16 150/62 (91) 100 02/06/19 04:30 75 16 156/62 (93) 02/06/19 04:30 75 16 156/62 (93) 02/06/19 04:00 82 11 162/71 (101) 100 02/06/19 04:00 71 02/06/19 04:00 30 02/06/19 04:00 22 Mechanical Ventilator 30 02/06/19 04:00 98.0 71 16 156/62 (93) 100 02/06/19 04:00 Mechanical Ventilator 02/06/19 04:00 82 11 162/71 (101) 100 02/06/19 03:30 85 18 171/85 (113) 98 02/06/19 03:30 85 18 171/85 (113) 98 02/06/19 03:24 85 21 130/70 (90) 100 02/06/19 03:06 74 17 30 02/06/19 03:00 25 Mechanical Ventilator 30 02/06/19 03:00 76 26 134/71 (92) 100 02/06/19 03:00 76 26 134/71 (92) 100 02/06/19 02:30 90 29 139/89 (106) 02/06/19 02:30 89 21 134/71 (92) 100 02/06/19 02:30 90 29 139/89 (106) 02/06/19 02:00 90 26 113/76 (88) 97 02/06/19 02:00 21 Mechanical Ventilator 30 02/06/19 02:00 90 26 113/76 (88) 97 02/06/19 02:00 89 21 139/89 (106) 100 02/06/19 01:30 89 26 113/76 (88) 98 02/06/19 01:30 84 24 140/94 (109) 100 02/06/19 01:30 84 24 140/94 (109) 100 02/06/19 01:20 87 18 30 02/06/19 01:00 56 16 98/53 (68) 02/06/19 01:00 78 24 140/84 (102) 100 02/06/19 01:00 56 16 98/53 (68) 02/06/19 01:00 21 Mechanical Ventilator 30 02/06/19 00:30 55 16 96/54 (68) 100 02/06/19 00:30 55 16 98/53 (68) 100 02/06/19 00:30 55 16 96/54 (68) 100 02/06/19 00:00 30 02/06/19 00:00 98.2 55 16 96/54 (68) 100 02/06/19 00:00 55 17 102/60 (74) 100 02/06/19 00:00 Mechanical Ventilator 02/06/19 00:00 55 17 102/60 (74) 100 02/06/19 00:00 17 Mechanical Ventilator 30 02/06/19 00:00 54 02/05/19 23:30 55 17 140/80 (100) 100 02/05/19 23:00 60 16 110/60 (77) 100 02/05/19 23:00 17 Mechanical Ventilator 30 02/05/19 22:32 51 16 30 02/05/19 22:30 70 16 119/62 (81) 100 02/05/19 22:00 49 16 96/55 (69) 100 02/05/19 22:00 16 Mechanical Ventilator 30 02/05/19 21:36 50 16 30 02/05/19 21:30 49 16 89/50 (63) 100 02/05/19 21:00 18 Mechanical Ventilator 30 02/05/19 21:00 50 17 85/55 (65) 100 02/05/19 20:30 51 16 86/47 (60) 100 02/05/19 20:00 98.0 55 16 96/51 (66) 100 02/05/19 20:00 18 Mechanical Ventilator 30 02/05/19 20:00 55 02/05/19 20:00 Mechanical Ventilator 02/05/19 19:30 61 16 119/55 (76) 100 02/05/19 19:08 61 16 30 02/05/19 19:00 69 18 103/53 (70) 100 02/05/19 19:00 19 Mechanical Ventilator 30 02/05/19 18:45 19 Mechanical Ventilator 30 02/05/19 18:45 69 18 154/86 (108) 100 02/05/19 18:30 19 Mechanical Ventilator 30 02/05/19 18:30 69 18 154/86 (108) 100 02/05/19 18:15 76 16 150/90 (110) 100 02/05/19 18:15 20 Mechanical Ventilator 30 02/05/19 18:00 76 18 127/106 (113) 99 02/05/19 18:00 24 Mechanical Ventilator 30 02/05/19 18:00 80 16 127/90 (102) 100 02/05/19 17:45 18 Mechanical Ventilator 30 02/05/19 17:45 76 18 127/106 (113) 99 02/05/19 17:30 79 17 141/63 (89) 100 02/05/19 17:30 16 Mechanical Ventilator 30 02/05/19 17:15 19 Mechanical Ventilator 30 02/05/19 17:05 77 22 30 02/05/19 17:00 64 14 147/61 (89) 100 02/05/19 17:00 18 Mechanical Ventilator 30 02/05/19 16:45 18 Mechanical Ventilator 30 02/05/19 16:45 64 14 147/61 (89) 100 02/05/19 16:30 16 Mechanical Ventilator 30 02/05/19 16:30 73 19 139/78 (98) 100 02/05/19 16:29 183/97 02/05/19 16:15 75 21 143/85 (104) 100 02/05/19 16:15 18 Mechanical Ventilator 02/05/19 16:00 Mechanical Ventilator 02/05/19 16:00 30 02/05/19 16:00 94 02/05/19 16:00 24 Mechanical Ventilator 30 02/05/19 16:00 98.0 93 19 213/89 (130) 97 02/05/19 15:30 78 18 156/80 (105) 100 02/05/19 15:26 81 17 30 02/05/19 15:00 78 18 156/80 (105) 100 02/05/19 15:00 30 02/05/19 15:00 18 Mechanical Ventilator 30 02/05/19 14:30 83 16 183/97 (125) 100 02/05/19 14:00 18 Mechanical Ventilator 30 02/05/19 14:00 30 02/05/19 14:00 84 15 178/91 (120) 100 02/05/19 13:30 16 Mechanical Ventilator 30 02/05/19 13:30 84 18 166/73 (104) 100 02/05/19 13:24 30 02/05/19 13:20 92 16 30 02/05/19 13:15 90 16 185/90 (121) 100 02/05/19 13:15 18 Mechanical Ventilator 30 02/05/19 13:00 90 16 185/90 (121) 100 02/05/19 13:00 16 Mechanical Ventilator 30 02/05/19 12:45 16 Mechanical Ventilator 30 02/05/19 12:45 82 19 163/72 (102) 100 02/05/19 12:30 82 19 163/72 (102) 100 02/05/19 12:30 16 Mechanical Ventilator 30 02/05/19 12:15 91 16 205/107 (139) 02/05/19 12:15 16 Mechanical Ventilator 30 02/05/19 12:00 97.7 91 16 205/107 (139) 02/05/19 12:00 30 02/05/19 12:00 98 02/05/19 12:00 19 Mechanical Ventilator 30 02/05/19 12:00 Mechanical Ventilator 02/05/19 11:45 87 17 165/85 (111) 100 02/05/19 11:45 16 Mechanical Ventilator 30 02/05/19 11:30 87 17 165/85 (111) 100 02/05/19 11:30 16 Mechanical Ventilator 30 02/05/19 11:15 88 17 179/94 (122) 99 02/05/19 11:15 19 Mechanical Ventilator 30 02/05/19 11:00 88 17 179/94 (122) 99 02/05/19 11:00 16 Mechanical Ventilator 30 Intake and Output 02/06/19 02/07/19 18:59 06:59 Intake Total 1460.997 ml 2090 ml Output Total 885 ml 660 ml Balance 575.997 ml 1430 ml Intake Free Water 200 ml 80 ml IV Total 945.997 ml 1470 ml Tube Feeding 315 ml 540 ml Output Urine Total 885 ml 660 ml Labs Test 02/04/19 14:25 02/05/19 08:36 02/05/19 12:45 02/06/19 05:37 Arterial Blood pH 7.372 (7.350-7.450) 7.403 (7.350-7.450) Arterial Blood Partial Pressure CO2 50.3 mmHg (35.0-45.0) 54.6 mmHg (35.0-45.0) Arterial Blood Partial Pressure O2 77.7 mmHg (75.0-100.0) 75.4 mmHg (75.0-100.0) Arterial Blood HCO3 28.6 mmol/L (22.0-26.0) 33.3 mmol/L (22.0-26.0) Arterial Blood Oxygen Saturation 95.3 % (95-100) 94.3 % (95-100) Arterial Blood Base Excess 2.6 (-2-2) 7.2 (-2-2) Delon Test Positive Positive White Blood Count 18.3 K/UL (4.8-10.8) 24.3 K/UL (4.8-10.8) Red Blood Count 3.06 M/UL (4.70-6.10) 3.68 M/UL (4.70-6.10) Hemoglobin 9.3 G/DL (14.2-18.0) 11.1 G/DL (14.2-18.0) Hematocrit 29.4 % (42.0-52.0) 35.4 % (42.0-52.0) Mean Corpuscular Volume 96 FL (80-99) 96 FL (80-99) Mean Corpuscular Hemoglobin 30.2 PG (27.0-31.0) 30.2 PG (27.0-31.0) Mean Corpuscular Hemoglobin Concent 31.5 G/DL (32.0-36.0) 31.4 G/DL (32.0-36.0) Red Cell Distribution Width 14.7 % (11.6-14.8) 14.9 % (11.6-14.8) Platelet Count 110 K/UL (150-450) 118 K/UL (150-450) Mean Platelet Volume 8.4 FL (6.5-10.1) 7.4 FL (6.5-10.1) Neutrophils (%) (Auto) % (45.0-75.0) % (45.0-75.0) Lymphocytes (%) (Auto) % (20.0-45.0) % (20.0-45.0) Monocytes (%) (Auto) % (1.0-10.0) % (1.0-10.0) Eosinophils (%) (Auto) % (0.0-3.0) % (0.0-3.0) Basophils (%) (Auto) % (0.0-2.0) % (0.0-2.0) Differential Total Cells Counted 100 100 Neutrophils % (Manual) 92 % (45-75) 91 % (45-75) Lymphocytes % (Manual) 3 % (20-45) 4 % (20-45) Monocytes % (Manual) 5 % (1-10) 5 % (1-10) Eosinophils % (Manual) 0 % (0-3) 0 % (0-3) Basophils % (Manual) 0 % (0-2) 0 % (0-2) Band Neutrophils 0 % (0-8) 0 % (0-8) Platelet Estimate Decreased Decreased Platelet Morphology Normal Normal Hypochromasia 1+ 1+ Anisocytosis 1+ 1+ Sodium Level 144 MMOL/L (136-145) 142 MMOL/L (136-145) Potassium Level 3.4 MMOL/L (3.5-5.1) 3.8 MMOL/L (3.5-5.1) Chloride Level 107 MMOL/L (98-107) 106 MMOL/L (98-107) Carbon Dioxide Level 36 MMOL/L (21-32) 32 MMOL/L (21-32) Anion Gap 1 mmol/L (5-15) 4 mmol/L (5-15) Blood Urea Nitrogen 27 mg/dL (7-18) 27 mg/dL (7-18) Creatinine 0.7 MG/DL (0.55-1.30) 0.7 MG/DL (0.55-1.30) Estimat Glomerular Filtration Rate mL/min (>60) mL/min (>60) Glucose Level 92 MG/DL (74-106) 174 MG/DL (74-106) Calcium Level 8.0 MG/DL (8.5-10.1) 8.3 MG/DL (8.5-10.1) Magnesium Level 1.7 MG/DL (1.8-2.4) 1.9 MG/DL (1.8-2.4) Phosphorus Level 3.0 MG/DL (2.5-4.9) Total Bilirubin 0.7 MG/DL (0.2-1.0) Direct Bilirubin 0.2 MG/DL (0.0-0.3) Aspartate Amino Transf (AST/SGOT) 26 U/L (15-37) Alanine Aminotransferase (ALT/SGPT) 53 U/L (12-78) Alkaline Phosphatase 63 U/L (46-116) Total Protein 5.7 G/DL (6.4-8.2) Albumin 2.4 G/DL (3.4-5.0) Test 02/07/19 10:20 Arterial Blood pH 7.375 (7.350-7.450) Arterial Blood Partial Pressure CO2 57.2 mmHg (35.0-45.0) Arterial Blood Partial Pressure O2 92.7 mmHg (75.0-100.0) Arterial Blood HCO3 32.7 mmol/L (22.0-26.0) Arterial Blood Oxygen Saturation 96.2 % (95-100) Arterial Blood Base Excess 6.1 (-2-2) Delon Test Positive Height (Feet): 5 Height (Inches): 10.00 Weight (Pounds): 161 Objective General Appearance: sedated on ventilator Head: normocephalic, atraumatic Neck: supple ++ NG Respiratory: generally reduced bs + VENT Cardiovascular: tachycardia, HS1, HS2, RRR Gastrointestinal: non tender, soft Musculoskeletal: normal inspection Neurologic: sedated on ventilator Skin: no rash, palpation normal Conrado Morel MD Feb 07, 2019 10:57
--- NOTE | 2019-02-07 12:03 | Cardiology Report ---
APPROVED REPORT EKG Measurement Heart [id number] Normal sinus rhythm Rightward axis Low voltage QRS Cannot rule out Anterior infarct, age undetermined Abnormal ECG
[2019-02-07] MEDS: Vancomycin 1gm/D5W 275ml IVPB SCH ×4 (12:19→23:36)
--- NOTE | 2019-02-07 12:20 | Cardiology Report ---
APPROVED REPORT EKG Measurement Heart [id number] Atrial fibrillation Left axis deviation Low voltage QRS Nonspecific ST and T wave abnormality Abnormal ECG
--- NOTE | 2019-02-07 13:15 | NUR ---
NURSE NOTES: Dr. Orlando at the bedside and ordered to have right IJ to be taken out and have a PICC line inserted, consent obtained at the bedside by Jah Holly, radiology team aware of line placement and obtained of consent.
[2019-02-07] MEDS ORDERED: Heparin1,000 units/500ml Premix(Conc:2 units/ml) IV ONE (14:00)
[2019-02-07] MEDS ORDERED: Lidocaine 1% Plain 30 ml INJ ONE (14:00)
--- NOTE | 2019-02-07 14:27 | Infectious Diseases Prog Note ---
Assessment/Plan Problems: (1) Aspiration pneumonia Assessment & Plan: with thick secretion , continue meropenem and vancomycin empirically for now . repeated CXR no new infiltrates , aspiration precaution (2) Leukocytosis Assessment & Plan: rule out sepsis, await repeated blood culture x2 , continue meropenem and vancomycin empirically pending cultures . remove IJ line (3) Acute exacerbation of chronic obstructive pulmonary disease (COPD) Assessment & Plan: S/P doxycycline , and nebulizer treatment as per pulmonary (4) Cardiac arrest Assessment & Plan: etiology ? cardiology eval to rule out cardiac sources and neurology eval to evaluate his brain condition and to rule out anoxic brain injury (5) Chronic hypercapnic respiratory failure Assessment & Plan: S/P cardiac arrest , S/P intubation, monitor in ICU, failing weaning trials so far , pulmonary is following Subjective ROS Limited/Unobtainable: Yes Allergies: Coded Allergies: No Known Allergies (Unverified , 06/05/18) Subjective He is still intubated on mechanical ventilation, awake and responsive to verbal commands , still failing weaning trials , has low grade fever Objective Vital Signs Last 24 Hour Vital Signs Date Time Temp Pulse Resp B/P (MAP) Pulse Ox O2 Delivery O2 Flow Rate FiO2 02/07/19 12:50 82 16 30 02/07/19 12:00 Mechanical Ventilator 02/07/19 12:00 87 02/07/19 12:00 99.8 81 23 151/64 (93) 100 02/07/19 11:30 88 21 170/76 (107) 100 02/07/19 11:00 91 21 169/92 (117) 100 02/07/19 10:38 82 18 30 02/07/19 10:30 86 21 182/74 (110) 100 02/07/19 10:00 85 20 134/80 (98) 98 02/07/19 09:54 17 Mechanical Ventilator 30 02/07/19 09:30 93 21 175/77 (109) 100 02/07/19 09:15 175/75 02/07/19 09:00 90 23 144/72 (96) 100 02/07/19 08:30 30 02/07/19 08:30 95 20 169/74 (105) 100 02/07/19 08:30 99 02/07/19 08:30 89 15 30 02/07/19 08:00 98.8 90 19 170/94 (119) 100 02/07/19 08:00 Mechanical Ventilator 02/07/19 08:00 100 02/07/19 08:00 30 02/07/19 07:30 93 17 181/87 (118) 100 02/07/19 07:10 96 18 30 02/07/19 07:09 82 16 147/95 (112) 100 02/07/19 07:00 82 16 147/95 (112) 100 02/07/19 07:00 16 Mechanical Ventilator 30 02/07/19 06:30 92 16 164/91 (115) 100 02/07/19 06:00 88 16 174/95 (121) 100 02/07/19 06:00 16 Mechanical Ventilator 30 02/07/19 05:30 89 17 156/69 (98) 100 02/07/19 05:00 85 17 30 02/07/19 05:00 84 16 171/77 (108) 100 02/07/19 05:00 17 Mechanical Ventilator 30 02/07/19 04:30 91 17 105/81 (89) 100 02/07/19 04:00 30 02/07/19 04:00 16 Mechanical Ventilator 30 02/07/19 04:00 98.8 86 17 160/90 (113) 100 02/07/19 04:00 Mechanical Ventilator 02/07/19 04:00 86 02/07/19 03:30 81 19 167/82 (110) 100 02/07/19 03:00 16 Mechanical Ventilator 30 02/07/19 03:00 52 16 105/73 (84) 100 02/07/19 02:51 59 16 30 02/07/19 02:30 61 16 103/53 (70) 100 02/07/19 02:00 16 Mechanical Ventilator 30 02/07/19 02:00 60 16 108/59 (75) 100 02/07/19 01:30 61 16 108/48 (68) 100 02/07/19 01:00 17 Mechanical Ventilator 30 02/07/19 01:00 58 16 30 02/07/19 01:00 58 16 100/60 (73) 100 02/07/19 00:30 62 16 113/53 (73) 100 02/07/19 00:00 62 02/07/19 00:00 98.7 62 16 102/52 (69) 100 02/07/19 00:00 Mechanical Ventilator 02/07/19 00:00 16 Mechanical Ventilator 30 02/07/19 00:00 30 02/06/19 23:30 63 16 150/54 (86) 100 02/06/19 23:20 65 16 30 02/06/19 23:00 75 20 164/71 (102) 100 02/06/19 23:00 16 Mechanical Ventilator 30 02/06/19 22:30 55 16 106/53 (70) 100 02/06/19 22:00 52 16 112/64 (80) 100 02/06/19 22:00 16 Mechanical Ventilator 30 02/06/19 21:30 50 16 128/64 (85) 100 02/06/19 21:09 57 16 30 02/06/19 21:00 60 16 103/55 (71) 100 02/06/19 21:00 16 Mechanical Ventilator 30 02/06/19 20:30 58 16 124/64 (84) 100 02/06/19 20:00 30 02/06/19 20:00 Mechanical Ventilator 02/06/19 20:00 62 02/06/19 20:00 98.6 62 17 119/60 (79) 100 02/06/19 20:00 16 Mechanical Ventilator 30 02/06/19 19:30 65 16 145/61 (89) 100 02/06/19 19:18 68 16 30 02/06/19 19:00 66 16 146/93 (110) 100 02/06/19 19:00 16 Mechanical Ventilator 30 02/06/19 18:30 65 16 142/67 (92) 100 02/06/19 18:00 66 16 143/69 (93) 100 02/06/19 18:00 16 Mechanical Ventilator 30 02/06/19 17:30 70 16 151/108 (122) 100 02/06/19 17:00 16 Mechanical Ventilator 30 02/06/19 17:00 74 16 152/63 (92) 100 02/06/19 16:40 84 16 30 02/06/19 16:30 97.8 78 14 159/64 (95) 100 02/06/19 16:00 30 02/06/19 16:00 16 Mechanical Ventilator 30 02/06/19 16:00 60 16 165/94 (117) 100 02/06/19 16:00 66 02/06/19 16:00 Mechanical Ventilator 02/06/19 15:30 69 16 120/62 (81) 100 02/06/19 15:00 16 Mechanical Ventilator 30 02/06/19 15:00 72 16 152/68 (96) 100 02/06/19 14:52 68 16 30 02/06/19 14:48 16 Mechanical Ventilator 30 02/06/19 14:45 16 Mechanical Ventilator 30 02/06/19 14:30 72 16 134/62 (86) 100 02/06/19 14:30 16 Mechanical Ventilator 30 02/06/19 14:25 16 Mechanical Ventilator 30 Height (Feet): 5 Height (Inches): 10.00 Weight (Pounds): 161 General Appearance: no acute distress, cachetic HEENT: normocephalic, atraumatic, anicteric, mucous membranes moist, PERRL, EOMI, pharynx normal, supple, no JVD, other - right IJ line looks old Respiratory/Chest: chest wall non-tender, no respiratory distress, no accessory muscle use, decreased breath sounds, crackles/rales Cardiovascular: normal peripheral pulses, normal rate, regular rhythm, no gallop/murmur, no JVD Abdomen: normal bowel sounds, soft, non tender, no organomegaly, non distended , no mass, no scars Extremities: no cyanosis, no clubbing Skin: no rash, no lesions, no ulcers Neurologic/Psychiatric: alert, responsive Lymphatic: no neck adenopathy, no groin adenopathy Musculoskeletal: normal muscle bulk, no effusion Laboratory Tests Test 02/07/19 10:20 Arterial Blood pH 7.375 (7.350-7.450) Arterial Blood Partial Pressure CO2 57.2 mmHg (35.0-45.0) *H Arterial Blood Partial Pressure O2 92.7 mmHg (75.0-100.0) Arterial Blood HCO3 32.7 mmol/L (22.0-26.0) H Arterial Blood Oxygen Saturation 96.2 % (95-100) Arterial Blood Base Excess 6.1 (-2-2) H Delon Test Positive Current Medications Medications (Trade) Dose Ordered Sig/Brittani Route PRN Reason Start Time Stop Time Status Last Admin Dose Admin Acetaminophen (Tylenol) 650 mg Q4H PRN NG FOR MILD PAIN 01/26/19 10:15 02/25/19 10:14 Chlorhexidine Gluconate (Renetta-Hex 2%) 1 applic DAILY@1999 TOPIC 02/07/19 20:00 03/09/19 19:59 Dextrose (Dextrose 50%) 25 ml Q30M PRN IV Hypoglycemia 01/26/19 10:30 02/25/19 10:29 Dextrose (Dextrose 50%) 50 ml Q30M PRN IV Hypoglycemia 01/26/19 10:30 02/25/19 10:29 Docusate Sodium (Colace) 100 mg BID NG 02/02/19 18:00 03/04/19 17:59 02/06/19 17:53 Dopamine HCl/ Dextrose 250 ml @ 0 mls/hr Q24H IV 02/06/19 09:15 03/08/19 09:14 Enoxaparin Sodium (Lovenox) 40 mg DAILY SUBQ 01/31/19 09:00 03/02/19 08:59 02/07/19 09:55 Fentanyl Citrate 2500 mcg/Sodium Chloride 250 ml @ 0 mls/hr Q24H IV 02/02/19 12:00 02/09/19 11:59 02/07/19 09:54 Hydralazine HCl (Apresoline) 25 mg Q6H PRN ORAL For High Blood Pressure 02/04/19 17:00 03/06/19 16:59 02/05/19 16:29 Insulin Aspart (NovoLOG) Q6HR SUBQ 01/26/19 12:00 02/25/19 11:59 02/07/19 05:49 Meropenem 1 gm/ Sodium Chloride 55 ml @ 110 mls/hr Q8HR IVPB 02/06/19 22:00 02/11/19 21:59 02/07/19 13:42 Methylprednisolone Sodium Succinate (Solu-MEDROL) 40 mg EVERY 12 HOURS IVP 02/07/19 21:00 03/09/19 20:59 Pantoprazole (Protonix) 40 mg Q12HR IVP 02/03/19 21:00 02/25/19 10:59 02/07/19 09:53 Polyethylene Glycol (Miralax) 17 gm BEDTIME GT 02/01/19 21:00 03/03/19 20:59 02/06/19 20:59 Vancomycin HCl (Vanco rx to dose) 1 ea DAILY PRN MISC Per rx protocol 02/06/19 20:00 03/08/19 19:59 Vancomycin HCl 1 gm/Dextrose 275 ml @ 183.708 mls/hr Q12HR@1100,2300 IVPB 02/06/19 23:00 02/11/19 22:59 02/07/19 12:19 [place] Orlando M.D. Feb 07, 2019 14:27
[2019-02-07] MEDS ORDERED: Lidocaine 1% Plain 30 ml INJ PRN (14:54)
[2019-02-07] MEDS ORDERED: Heparin1,000 units/500ml Premix(Conc:2 units/ml) IV PRN (15:00)
--- NOTE | 2019-02-07 15:45 | NUR ---
NURSE NOTES: PICC Line placement inserted by radiology team at the bedside, Patient tolerated placement with no distress noted, Tube feeding restarted at 45ml/hr on Vital A.F. 1.2. Xray taken to verify placement and awaiting for results.
--- NOTE | 2019-02-07 15:48 | NUR ---
LUE 2L PICC LINE PLACED AT [address] CHARLES. FA
--- NOTE | 2019-02-07 16:39 | Diagnostic Imaging Report ---
Indications: Needs long-term IV access Technique: Procedure performed at bedside. Procedural timeout performed. Ultrasound confirms patent compressible left basilic vein. Total sterile technique, including sterile probe cover and sterile gel, sterile gloves, hand hygiene, hat, mask,, sterile gown, large sterile drape, and preparation with 2% chlorhexidine utilized. Local anesthesia with 1% lidocaine. Under real-time ultrasound guidance, puncture basilic vein using 21-gauge needle, passage 0.018 guidewire, exchange for 4 Arabic peel-away sheath. 4 Arabic Bard dual-lumen power PICC cut to 51 cm. It was inserted through the peel-away sheath. Peel-away sheath and guidewire removed. Catheter fixed to the skin. Both catheter ports aspirated and flushed. Patient tolerated procedure well, without immediate complication. Followup chest x-ray obtained, documents catheter tip position at the cavoatrial junction Impression: Successful bedside placement of left arm PICC under sonographic guidance, as described above.
[2019-02-07] MEDS ORDERED: HydrALAZINE 25mg tab NG PRN (17:15)
--- NOTE | 2019-02-07 18:15 | NUR ---
NURSE NOTES: Patient BS is 111 2 units of novolog given subq, patient remains on fentanyl drip at 150mcg/hr remains sedated to RASS scale of -2 with HR at 95-94bpm remains on AC 16 TV: 500 FIo2 at 30% with peep of 5
--- NOTE | 2019-02-07 19:33 | NUR ---
HAND-OFF: Report given to GENNY argueta. Remains on fentanyl at 150mcg/hr to rass score of -2
--- NOTE | 2019-02-07 20:00 | NUR ---
NURSE NOTES: Patient received from Johny ROYAL. Patient currently is sedated RASS -2. Fentanyl gtt currently running at 150mcg via PICC line. Patient ventilated ett 8/25cm AC 16/500/30%/5. Spo2 100%. Vital AF 1.2 at 45ml/hr. D5W at 75ml/hr. PAtient has INOCENCIA PICC double lumen. NAD at this time, VSS.
[2019-02-07] MEDS: Dyna-Hex 2% Top Sol 2oz TOPIC SCH (20:51)
[2019-02-07] MEDS: Solu-MEDROL 40mg Inj IVP SCH (20:52)
[2019-02-07] MEDS: Miralax 17gm pkt NG SCH (20:52)
--- NOTE | 2019-02-07 22:00 | NUR ---
NURSE NOTES: Repositioned patient. Changed the PICC line dressing. Scheduled meds given. Patient can be agitated at times. Oral hygien given.
--- NOTE | 2019-02-07 22:41 | Pulmonolgy Critical Care Note ---
Critical Care - Asmt/Plan Assessment/Plan: Pulmonary Critical Care Progress Note HPI Patient is a 73 year olf man with previous history of COPD, CHF, HTN, DM admitted with extreme respiratory distress, intubated in the ED, subsequent Cardiac Arrest. Noted to have hypercapneic respiratory failure. Interactive today, improved ventilator requirements, tolerated PS8 for 2 hours today, improving mental status Increased WCC - RIJ lne DC CT Head negative Allergies: No Known Allergies Past Medical History: COPD/Asthma, CHF, Hypertension, DM All Other Systems: limited Physical Exam Vital signs noted General Appearance: sedated on ventilator Head: normocephalic, atraumatic Eyes: bilateral eye PERRL, bilateral eye EOMI ENT: moist mm, no LN Neck: supple Respiratory: generally reduced BS, occasional wheeze Cardiovascular: tachycardia, HS1, HS2, RRR Gastrointestinal: non tender, soft Musculoskeletal: normal inspection Neurologic: sedated on ventilator Skin: no rash, palpation normal Impression: COPD exacerbation Hypercapneic respiratory failure S/p cardiac arrest in the ED CHF HTN Diabetes Plan Wean as tolerated Adjust FIO2 for sats 90-94% HHN Q4 IV Solumedrol - reduce Sedation PRN Sz management Monitor labs PPX Antibiotics per ID DNR status Labs noted Chest X-Ray: No consolidation, no effusion, ETT tube 7cm, PICC line good position Critical Care - Objective Last 24 Hour Vital Signs Date Time Temp Pulse Resp B/P (MAP) Pulse Ox O2 Delivery O2 Flow Rate FiO2 02/07/19 22:00 61 16 148/59 (88) 100 02/07/19 22:00 16 Mechanical Ventilator 30 02/07/19 21:45 82 16 30 02/07/19 21:30 73 14 150/53 (85) 100 02/07/19 21:00 Mechanical Ventilator 30 02/07/19 21:00 62 20 162/83 (109) 100 02/07/19 20:30 71 16 174/66 (102) 100 02/07/19 20:00 99.1 86 18 179/96 (123) 93 02/07/19 20:00 Mechanical Ventilator 02/07/19 20:00 16 Mechanical Ventilator 30 02/07/19 20:00 62 02/07/19 20:00 30 02/07/19 19:36 68 16 30 02/07/19 19:30 63 17 156/61 (92) 100 02/07/19 19:00 78 15 159/62 (94) 100 02/07/19 19:00 16 Mechanical Ventilator 30 02/07/19 18:30 78 16 156/64 (94) 100 02/07/19 18:00 78 17 178/71 (106) 100 02/07/19 18:00 16 Mechanical Ventilator 30 02/07/19 17:30 72 16 173/88 (116) 100 02/07/19 17:09 62 16 30 02/07/19 17:00 57 14 95/51 (66) 100 02/07/19 17:00 17 Mechanical Ventilator 30 02/07/19 16:30 63 13 127/56 (79) 100 02/07/19 16:00 Mechanical Ventilator 02/07/19 16:00 79 02/07/19 16:00 30 02/07/19 16:00 98.9 75 19 138/65 (89) 100 02/07/19 16:00 17 Mechanical Ventilator 30 02/07/19 15:30 88 21 170/75 (106) 97 02/07/19 15:00 17 Mechanical Ventilator 30 02/07/19 15:00 81 18 170/76 (107) 99 02/07/19 14:34 82 19 30 02/07/19 14:30 76 20 165/63 (97) 100 02/07/19 14:00 19 Mechanical Ventilator 30 02/07/19 14:00 84 18 165/68 (100) 100 02/07/19 13:30 78 17 178/80 (112) 100 02/07/19 13:00 19 Mechanical Ventilator 30 02/07/19 13:00 70 18 146/96 (113) 100 02/07/19 12:50 82 16 30 02/07/19 12:30 84 17 185/81 (115) 100 02/07/19 12:00 Mechanical Ventilator 02/07/19 12:00 30 02/07/19 12:00 87 02/07/19 12:00 17 Mechanical Ventilator 30 02/07/19 12:00 99.8 81 23 151/64 (93) 100 02/07/19 11:30 20 Mechanical Ventilator 30 02/07/19 11:30 88 21 170/76 (107) 100 02/07/19 11:25 21 Mechanical Ventilator 30 02/07/19 11:20 22 Mechanical Ventilator 30 02/07/19 11:15 23 Mechanical Ventilator 30 02/07/19 11:10 23 Mechanical Ventilator 30 02/07/19 11:05 23 Mechanical Ventilator 30 02/07/19 11:00 91 21 169/92 (117) 100 02/07/19 11:00 19 Mechanical Ventilator 30 02/07/19 10:40 30 02/07/19 10:38 82 18 30 02/07/19 10:30 86 21 182/74 (110) 100 02/07/19 10:30 17 Mechanical Ventilator 30 02/07/19 10:25 18 Mechanical Ventilator 30 02/07/19 10:20 21 Mechanical Ventilator 30 02/07/19 10:15 22 Mechanical Ventilator 30 02/07/19 10:10 23 Mechanical Ventilator 30 02/07/19 10:05 22 Mechanical Ventilator 30 02/07/19 10:00 21 Mechanical Ventilator 30 02/07/19 10:00 85 20 134/80 (98) 98 02/07/19 09:54 17 Mechanical Ventilator 30 02/07/19 09:30 93 21 175/77 (109) 100 02/07/19 09:15 175/75 02/07/19 09:00 90 23 144/72 (96) 100 02/07/19 08:30 30 02/07/19 08:30 95 20 169/74 (105) 100 02/07/19 08:30 99 02/07/19 08:30 89 15 30 02/07/19 08:00 98.8 90 19 170/94 (119) 100 02/07/19 08:00 Mechanical Ventilator 02/07/19 08:00 25 Mechanical Ventilator 30 02/07/19 08:00 100 02/07/19 08:00 30 02/07/19 07:30 93 17 181/87 (118) 100 02/07/19 07:10 96 18 30 02/07/19 07:09 82 16 147/95 (112) 100 02/07/19 07:00 82 16 147/95 (112) 100 02/07/19 07:00 16 Mechanical Ventilator 30 02/07/19 06:30 92 16 164/91 (115) 100 02/07/19 06:00 88 16 174/95 (121) 100 02/07/19 06:00 16 Mechanical Ventilator 30 02/07/19 05:30 89 17 156/69 (98) 100 02/07/19 05:00 85 17 30 02/07/19 05:00 84 16 171/77 (108) 100 02/07/19 05:00 17 Mechanical Ventilator 30 02/07/19 04:30 91 17 105/81 (89) 100 02/07/19 04:00 30 02/07/19 04:00 16 Mechanical Ventilator 30 02/07/19 04:00 98.8 86 17 160/90 (113) 100 02/07/19 04:00 Mechanical Ventilator 02/07/19 04:00 86 02/07/19 03:30 81 19 167/82 (110) 100 02/07/19 03:00 16 Mechanical Ventilator 30 02/07/19 03:00 52 16 105/73 (84) 100 02/07/19 02:51 59 16 30 02/07/19 02:30 61 16 103/53 (70) 100 02/07/19 02:00 16 Mechanical Ventilator 30 02/07/19 02:00 60 16 108/59 (75) 100 02/07/19 01:30 61 16 108/48 (68) 100 02/07/19 01:00 17 Mechanical Ventilator 30 02/07/19 01:00 58 16 30 02/07/19 01:00 58 16 100/60 (73) 100 02/07/19 00:30 62 16 113/53 (73) 100 02/07/19 00:00 62 02/07/19 00:00 98.7 62 16 102/52 (69) 100 02/07/19 00:00 Mechanical Ventilator 02/07/19 00:00 16 Mechanical Ventilator 30 02/07/19 00:00 30 02/06/19 23:30 63 16 150/54 (86) 100 02/06/19 23:20 65 16 30 02/06/19 23:00 75 20 164/71 (102) 100 02/06/19 23:00 16 Mechanical Ventilator 30 Accucheck: 111 Critical Care - Subjective ROS Limited/Unobtainable: No Condition: improving FI02: 30 Vent Support Breath Rate: 16 Vent Support Mode: AC Vent Tidal Volume: 500 Sputum Amount: Scant PEEP: 5.0 PIP: 18 Tube Feeding Amount: 45 I&O: Intake and Output 02/06/19 02/07/19 19:00 07:00 Intake Total 1510.997 ml 2080 ml Output Total 885 ml 620 ml Balance 625.997 ml 1460 ml Intake Free Water 200 ml 80 ml IV Total 950.997 ml 1460 ml Tube Feeding 360 ml 540 ml Output Urine Total 885 ml 620 ml ET-Tube: 8.0 ET Position: 25 Johny White MD Feb 07, 2019 22:41
--- NOTE | 2019-02-07 23:58 | Cardiology Progress Note ---
Assessment/Plan Assessment/Plan 1. Cardiopulmonary arrest due to anoxia, 2D echo reveals normal LVEF. 2. Non-STEMI, conservative management as he is DNR. 3. Moderate aortic regurgitation. 4. Acute respiratory failure, intubated, failed weaning process. 5. Hypernatremia, better with hypotonic fluids. 6. Aspiration pneumonia, worsening of leukocytosis. Subjective Subjective Sinus rhythm at rate of 65. Intubated with FiO2 of 30%. Objective Last 24 Hour Vital Signs Date Time Temp Pulse Resp B/P (MAP) Pulse Ox O2 Delivery O2 Flow Rate FiO2 02/07/19 23:20 65 16 30 02/07/19 22:00 61 16 148/59 (88) 100 02/07/19 22:00 16 Mechanical Ventilator 30 02/07/19 21:45 82 16 30 02/07/19 21:30 73 14 150/53 (85) 100 02/07/19 21:00 Mechanical Ventilator 30 02/07/19 21:00 62 20 162/83 (109) 100 02/07/19 20:30 71 16 174/66 (102) 100 02/07/19 20:00 99.1 86 18 179/96 (123) 93 02/07/19 20:00 Mechanical Ventilator 02/07/19 20:00 16 Mechanical Ventilator 30 02/07/19 20:00 62 02/07/19 20:00 30 02/07/19 19:36 68 16 30 02/07/19 19:30 63 17 156/61 (92) 100 02/07/19 19:00 78 15 159/62 (94) 100 02/07/19 19:00 16 Mechanical Ventilator 30 02/07/19 18:30 78 16 156/64 (94) 100 02/07/19 18:00 78 17 178/71 (106) 100 02/07/19 18:00 16 Mechanical Ventilator 30 02/07/19 17:30 72 16 173/88 (116) 100 02/07/19 17:09 62 16 30 02/07/19 17:00 57 14 95/51 (66) 100 02/07/19 17:00 17 Mechanical Ventilator 30 02/07/19 16:30 63 13 127/56 (79) 100 02/07/19 16:00 Mechanical Ventilator 02/07/19 16:00 79 02/07/19 16:00 30 02/07/19 16:00 98.9 75 19 138/65 (89) 100 02/07/19 16:00 17 Mechanical Ventilator 30 02/07/19 15:30 88 21 170/75 (106) 97 02/07/19 15:00 17 Mechanical Ventilator 30 02/07/19 15:00 81 18 170/76 (107) 99 02/07/19 14:34 82 19 30 02/07/19 14:30 76 20 165/63 (97) 100 02/07/19 14:00 19 Mechanical Ventilator 30 02/07/19 14:00 84 18 165/68 (100) 100 02/07/19 13:30 78 17 178/80 (112) 100 02/07/19 13:00 19 Mechanical Ventilator 30 02/07/19 13:00 70 18 146/96 (113) 100 02/07/19 12:50 82 16 30 02/07/19 12:30 84 17 185/81 (115) 100 02/07/19 12:00 Mechanical Ventilator 02/07/19 12:00 30 02/07/19 12:00 87 02/07/19 12:00 17 Mechanical Ventilator 30 02/07/19 12:00 99.8 81 23 151/64 (93) 100 02/07/19 11:30 20 Mechanical Ventilator 30 02/07/19 11:30 88 21 170/76 (107) 100 02/07/19 11:25 21 Mechanical Ventilator 30 02/07/19 11:20 22 Mechanical Ventilator 30 02/07/19 11:15 23 Mechanical Ventilator 30 02/07/19 11:10 23 Mechanical Ventilator 30 02/07/19 11:05 23 Mechanical Ventilator 30 02/07/19 11:00 91 21 169/92 (117) 100 02/07/19 11:00 19 Mechanical Ventilator 30 02/07/19 10:40 30 02/07/19 10:38 82 18 30 02/07/19 10:30 86 21 182/74 (110) 100 02/07/19 10:30 17 Mechanical Ventilator 30 02/07/19 10:25 18 Mechanical Ventilator 30 02/07/19 10:20 21 Mechanical Ventilator 30 02/07/19 10:15 22 Mechanical Ventilator 30 02/07/19 10:10 23 Mechanical Ventilator 30 02/07/19 10:05 22 Mechanical Ventilator 30 8/22/19 10:00 21 Mechanical Ventilator 30 02/07/19 10:00 85 20 134/80 (98) 98 02/07/19 09:54 17 Mechanical Ventilator 30 02/07/19 09:30 93 21 175/77 (109) 100 02/07/19 09:15 175/75 02/07/19 09:00 90 23 144/72 (96) 100 02/07/19 08:30 30 02/07/19 08:30 95 20 169/74 (105) 100 02/07/19 08:30 99 02/07/19 08:30 89 15 30 02/07/19 08:00 98.8 90 19 170/94 (119) 100 02/07/19 08:00 Mechanical Ventilator 02/07/19 08:00 25 Mechanical Ventilator 30 02/07/19 08:00 100 02/07/19 08:00 30 02/07/19 07:30 93 17 181/87 (118) 100 02/07/19 07:10 96 18 30 02/07/19 07:09 82 16 147/95 (112) 100 02/07/19 07:00 82 16 147/95 (112) 100 02/07/19 07:00 16 Mechanical Ventilator 30 02/07/19 06:30 92 16 164/91 (115) 100 02/07/19 06:00 88 16 174/95 (121) 100 02/07/19 06:00 16 Mechanical Ventilator 30 02/07/19 05:30 89 17 156/69 (98) 100 02/07/19 05:00 85 17 30 02/07/19 05:00 84 16 171/77 (108) 100 02/07/19 05:00 17 Mechanical Ventilator 30 02/07/19 04:30 91 17 105/81 (89) 100 02/07/19 04:00 30 02/07/19 04:00 16 Mechanical Ventilator 30 02/07/19 04:00 98.8 86 17 160/90 (113) 100 02/07/19 04:00 Mechanical Ventilator 02/07/19 04:00 86 02/07/19 03:30 81 19 167/82 (110) 100 02/07/19 03:00 16 Mechanical Ventilator 30 02/07/19 03:00 52 16 105/73 (84) 100 02/07/19 02:51 59 16 30 02/07/19 02:30 61 16 103/53 (70) 100 02/07/19 02:00 16 Mechanical Ventilator 30 02/07/19 02:00 60 16 108/59 (75) 100 02/07/19 01:30 61 16 108/48 (68) 100 02/07/19 01:00 17 Mechanical Ventilator 30 02/07/19 01:00 58 16 30 02/07/19 01:00 58 16 100/60 (73) 100 02/07/19 00:30 62 16 113/53 (73) 100 02/07/19 00:00 62 02/07/19 00:00 98.7 62 16 102/52 (69) 100 02/07/19 00:00 Mechanical Ventilator 02/07/19 00:00 16 Mechanical Ventilator 30 02/07/19 00:00 30 Cardiovascular: normal peripheral pulses Intake and Output 02/06/19 02/07/19 19:00 07:00 Intake Total 1510.997 ml 2080 ml Output Total 885 ml 620 ml Balance 625.997 ml 1460 ml Intake Free Water 200 ml 80 ml IV Total 950.997 ml 1460 ml Tube Feeding 360 ml 540 ml Output Urine Total 885 ml 620 ml 2D Echo: LVEF 55%, moderate AR Laboratory Tests Test 02/07/19 10:20 Arterial Blood pH 7.375 (7.350-7.450) Arterial Blood Partial Pressure CO2 57.2 mmHg (35.0-45.0) *H Arterial Blood Partial Pressure O2 92.7 mmHg (75.0-100.0) Arterial Blood HCO3 32.7 mmol/L (22.0-26.0) H Arterial Blood Oxygen Saturation 96.2 % (95-100) Arterial Blood Base Excess 6.1 (-2-2) H Delon Test Positive Objective HEENT: Atraumatic, arousable, orally intubated, conjunctival pallor. NECK: Cannot assess JVD, no carotid bruit. LUNGS: Bilateral breath sounds. Few rhonchi. No wheezing. CARDIAC: Regular rhythm and rate. Normal S1 and S2. No murmurs, gallops or rubs. ABDOMEN: Soft, non-distended, + BS. EXTREMITIES: No edema, clubbing or cyanosis. Lv Zuniga MD Feb 07, 2019 23:58
[2019-02-08] VITALS (49 sets, daily range): BP systolic 72–187; BP diastolic 41–121
--- NOTE | 2019-02-08 | NUR ---
NURSE NOTES: Repositioned patient and oral care also given. Replaced Anchorfast with new one. Patient was repositioned. Patient HR can go in the 40s at times however, BP is above 120 systolically. Patient does remain awake and oriented during susana episodes.
--- NOTE | 2019-02-08 02:00 | NUR ---
NURSE NOTES: Patient repositioned. Patient agitated at times. Suction and oral care given. Patient SR on the monitor. BP is good.
--- NOTE | 2019-02-08 04:00 | NUR ---
NURSE NOTES: Patient repositioned and given sponge bath. Feeds place on hold for AM weaning. Slowly titrating fentanyl down as much as possible for AM weaning.
[2019-02-08] MEDS: fentaNYL Citrate 2,500 MCG in NS 200 ML IV SCH ×2 (04:29→20:44)
[2019-02-08] MEDS: NovoLOG Insulin Flexpen SUBQ SCH ×3 (05:22→18:40)
[2019-02-08] MEDS: Meropenem 1 GM in NS 55 ML IVPB SCH ×3 (05:22→20:43)
--- NOTE | 2019-02-08 06:00 | NUR ---
NURSE NOTES: Patient repositioned. Vitals have been remained stable. RASS is now -1 in preparation for morning weaning. Patient is awake but does become very restless and agitated at times. Morning Glucose is 109.
--- NOTE | 2019-02-08 06:57 | NUR ---
RESPIRATORY NOTE: Received pt on vent setting: AC 16-50-30%FiO2- peep 5. Pt is intubated with ETT size 8.0 @ 25cm lips line, secured by anchor fast. pt is sedated with Fentanyl but awake and alert, able to follow simple commands. Pt is resting comfortably in the bed, no SOB or resp distress noted. Omer diminished breath sounds, suctioned moderate amounts of thick bloody brown bridges secretions without incidents. Alarms are set and audible, vent is plugged into the red outlet, ambu bag @bedside. Will continue to monitor and sxn q2h and as needed.
--- NOTE | 2019-02-08 07:00 | NUR ---
HAND-OFF: Report given to Cecelia ROYAL and Ellyn ROYAL.
--- NOTE | 2019-02-08 07:30 | NUR ---
NURSE NOTES: Patient received from GENNY Charles. Patient currently is sedated RASS -2, easily arousable to stimulation. Fentanyl gtt currently running at 50mcg via Lt upper Arm PICC line (inserted 02/07). Patient ventilated ETT 8.0, 25cm @ lip line, AC 16/500/30%/5. Spo2 100%. Tube feeds on hold, plan to wean today. Saenz in place and patent, draining well. Patient remains on 2 point soft wrist restraints to prevent self injury and extubation. VSS.
[2019-02-08] MEDS: DOPamine 400mg/250ml 250 ML IV SCH (09:15)
--- NOTE | 2019-02-08 09:15 | NUR ---
RESPIRATORY NOTE: Placed pt on CPAP PS 8 peep 5 30% FiO2 per Dr. White's order. Pt tolerated well for 5 minutes, then increased WOB, accessory muscle used, RR>32bpm, low Vt<250ml, pt became very anxious and agitated. Attempted to calm pt but unsuccessful. Placed pt back to AC mode with the same previous setting. Pt still very anxious and agitated, spit out the bite block. Oral suction and oral care done, replaced new OPA due to biting the tube. Asked GENNY Ragland for helping calming pt. GENNY Ragland at bedside but still unable to calm him down. GENNY Ragland increased Fentanyl and pt finally calm down. Will continue to monitor pt.
[2019-02-08] MEDS: Solu-MEDROL 40mg Inj IVP SCH ×2 (09:50→20:43)
[2019-02-08] MEDS: Pantoprazole Inj IVP SCH ×2 (09:50→20:43)
[2019-02-08] MEDS: Docusate 100mg tablet NG SCH ×2 (09:50→18:38)
[2019-02-08] MEDS: Enoxaparin 40mg Inj SUBQ SCH (09:52)
--- NOTE | 2019-02-08 10:00 | NUR ---
NURSE NOTES: Weaning attempted around 9:30; however, pt quickly became tachypneic, short of breath, using accessory muscles. Patient put back on AC 16, TV 500, Peep 5, O2 30%. Fentanyl 50mcg/hr increased to 100mcg/hr d/t restlessness and agitation. Will continue to monitor.
[2019-02-08] MEDS: Vancomycin 1gm/D5W 275ml IVPB SCH ×2 (11:17)
--- NOTE | 2019-02-08 12:15 | NUR ---
NURSE NOTES: Patient continues to be restless and agitated. Fentanyl 100mcg/hr increased to 120mcg/hr. Patient turned and repositioned, reassurance provided. F/S 110. Oral care done. VSS
--- NOTE | 2019-02-08 12:35 | Nephrology Progress Note ---
Assessment/Plan Problem List: (1) Cardiac arrest (2) Prerenal azotemia (3) Hypernatremia (4) Hypoalbuminemia (5) HTN (hypertension) Assessment Pre renal Azotemia due to - Dehydration- - High Protein catabolic state as result of Doxy and steroids HyperNatremia due to free water deficit HypoAlbuminemia Plan Sugg: keep bp in check stop D5W IV fluid Avoid Nephrotoxics Monitor lytes per consultants Subjective ROS Limited/Unobtainable: Yes Objective Objective Last 24 Hour Vital Signs Date Time Temp Pulse Resp B/P (MAP) Pulse Ox O2 Delivery O2 Flow Rate FiO2 02/08/19 12:00 Mechanical Ventilator 02/08/19 12:00 30 02/08/19 11:30 59 16 140/78 (98) 100 02/08/19 11:30 58 16 30 02/08/19 11:26 53 02/08/19 11:00 58 16 105/55 (72) 100 02/08/19 10:30 58 15 112/59 (76) 100 02/08/19 10:00 55 15 120/58 (78) 100 02/08/19 09:30 62 16 108/41 (63) 100 02/08/19 09:15 75 16 173/51 (91) 100 02/08/19 09:15 158/61 02/08/19 09:00 30 02/08/19 09:00 79 18 187/91 (123) 100 02/08/19 09:00 100 02/08/19 09:00 79 16 30 02/08/19 08:55 61 15 30 02/08/19 08:30 57 9 117/59 (78) 100 02/08/19 08:00 Mechanical Ventilator 02/08/19 08:00 97.0 62 15 144/71 (95) 100 02/08/19 07:37 61 02/08/19 07:30 57 12 136/59 (84) 100 02/08/19 07:00 61 16 158/61 (93) 100 02/08/19 07:00 16 Mechanical Ventilator 30 02/08/19 06:57 57 17 30 02/08/19 06:30 61 16 142/60 (87) 100 02/08/19 06:00 16 Mechanical Ventilator 30 02/08/19 06:00 62 16 141/61 (87) 100 02/08/19 05:30 56 16 141/61 (87) 100 02/08/19 05:12 58 16 30 02/08/19 05:00 62 12 119/62 (81) 100 02/08/19 05:00 16 Mechanical Ventilator 30 02/08/19 04:30 59 13 143/66 (91) 100 02/08/19 04:29 16 Mechanical Ventilator 30 02/08/19 04:00 16 Mechanical Ventilator 30 02/08/19 04:00 62 02/08/19 04:00 97.9 69 17 169/75 (106) 100 02/08/19 04:00 Mechanical Ventilator 02/08/19 04:00 30 02/08/19 03:30 67 16 163/68 (99) 100 02/08/19 03:00 69 16 152/68 (96) 100 02/08/19 02:53 61 16 30 02/08/19 02:30 72 17 157/52 (87) 100 02/08/19 02:00 85 18 148/87 (107) 100 02/08/19 02:00 16 Mechanical Ventilator 30 02/08/19 01:30 45 16 158/75 (102) 100 02/08/19 01:22 65 16 30 02/08/19 01:00 16 Mechanical Ventilator 30 02/08/19 01:00 16 Mechanical Ventilator 30 02/08/19 01:00 59 16 84/53 (63) 100 02/08/19 00:30 42 16 72/49 (57) 100 02/08/19 00:00 Mechanical Ventilator 02/08/19 00:00 98.6 66 16 88/52 (64) 100 02/08/19 00:00 16 Mechanical Ventilator 30 02/08/19 00:00 30 02/08/19 00:00 53 02/07/19 23:30 72 16 130/77 (94) 100 02/07/19 23:20 65 16 30 02/07/19 23:00 16 Mechanical Ventilator 30 02/07/19 23:00 71 16 165/83 (110) 100 02/07/19 22:30 61 14 146/67 (93) 100 02/07/19 22:00 61 16 148/59 (88) 100 02/07/19 22:00 16 Mechanical Ventilator 30 02/07/19 21:45 82 16 30 02/07/19 21:30 73 14 150/53 (85) 100 02/07/19 21:00 Mechanical Ventilator 30 02/07/19 21:00 62 20 162/83 (109) 100 02/07/19 20:30 71 16 174/66 (102) 100 02/07/19 20:00 99.1 86 18 179/96 (123) 93 02/07/19 20:00 Mechanical Ventilator 02/07/19 20:00 16 Mechanical Ventilator 30 02/07/19 20:00 62 02/07/19 20:00 30 02/07/19 19:36 68 16 30 02/07/19 19:30 63 17 156/61 (92) 100 02/07/19 19:00 78 15 159/62 (94) 100 02/07/19 19:00 16 Mechanical Ventilator 30 02/07/19 18:30 78 16 156/64 (94) 100 02/07/19 18:00 78 17 178/71 (106) 100 02/07/19 18:00 16 Mechanical Ventilator 30 02/07/19 17:30 72 16 173/88 (116) 100 02/07/19 17:09 62 16 30 02/07/19 17:00 57 14 95/51 (66) 100 02/07/19 17:00 17 Mechanical Ventilator 02/07/19 16:30 63 13 127/56 (79) 100 02/07/19 16:00 Mechanical Ventilator 02/07/19 16:00 79 02/07/19 16:00 30 02/07/19 16:00 98.9 75 19 138/65 (89) 100 02/07/19 16:00 17 Mechanical Ventilator 30 02/07/19 15:30 88 21 170/75 (106) 97 02/07/19 15:00 17 Mechanical Ventilator 30 02/07/19 15:00 81 18 170/76 (107) 99 02/07/19 14:34 82 19 30 02/07/19 14:30 76 20 165/63 (97) 100 02/07/19 14:00 19 Mechanical Ventilator 30 02/07/19 14:00 84 18 165/68 (100) 100 02/07/19 13:30 78 17 178/80 (112) 100 02/07/19 13:00 19 Mechanical Ventilator 30 02/07/19 13:00 70 18 146/96 (113) 100 02/07/19 12:50 82 16 30 02/07/19 12:30 84 17 185/81 (115) 100 Intake and Output 02/07/19 02/08/19 18:59 06:59 Intake Total 1795.32501 ml 909 ml Output Total 1620 ml 750 ml Balance 175.96216 ml 159 ml IV Total 1360.40565 ml 504 ml Tube Feeding 405 ml 405 ml Other 30 ml Output Urine Total 1620 ml 750 ml # Bowel Movements 1 Laboratory Tests 02/08/19 09:50: Vancomycin Level Trough 10.8 Height (Feet): 5 Height (Inches): 10.00 Weight (Pounds): 161 EENT: other - vented Cardiovascular: tachycardia Respiratory/Chest: decreased breath sounds Abdomen: soft Objective no change Felipe Salmon MD Feb 08, 2019 12:35
[2019-02-08 13:50] LABS: HEMATOCRIT 30.4 % (42.0-52.0); HEMOGLOBIN 9.6 G/DL (14.2-18.0); MEAN CORPUSCULAR VOLUME 95 FL (80-99); PLATELET COUNT 100 K/UL (150-450); RED CELL DISTRIBUTION WIDTH 14.6 % (11.6-14.8); WHITE BLOOD COUNT 17.3 K/UL (4.8-10.8)
--- NOTE | 2019-02-08 14:03 | NUR ---
CASE MANAGEMENT: REVIEW 02/08/2019 SI:COPD EXACERBATION. ASPIRATION PNA. T 97.9 HR 77 RR 16 B/P 161/98 SATS 100% ON MECH VENT FIO2 30 WBC 17.3 BMP: PENDING IS:SOLU MEDROL IV Q12H LOVENOX SUBQ QD K PHOS IV X1 PROTONIX IV Q12H MAG SULFATE IV X1 FENTANYL PER PARAMETERS DOPAMINE PER PARAMETERS KCL IV VANCO IV Q8H MEROPENEM IV Q8H ICU
--- NOTE | 2019-02-08 14:11 | NUR ---
NURSE NOTES: Dr. White saw patient, ordered labs and free water flushes q6h. Family at bedside. Fentanyl increased to 200mcg/hr for consistent agitation. Will continue to monitor.
[2019-02-08 14:18] LABS: ANION GAP 4 mmol/L (5-15); BLOOD UREA NITROGEN 16 mg/dL (7-18); CARBON DIOXIDE 27 MMOL/L (21-32); CHLORIDE 112 MMOL/L (98-107); CREATININE 0.5 MG/DL (0.55-1.30); PHOSPHORUS 2.1 MG/DL (2.5-4.9); SODIUM 143 MMOL/L (136-145)
--- NOTE | 2019-02-08 14:20 | General Progress Note ---
Assessment/Plan Status: stable Assessment/Plan: s: Intubated. Vent setting reviewed O: Easily arousal, Not following the command, family at the bed side PHYSICAL EXAMINATION: GENERAL: An elderly male, lying in bed, intubated on mechanical ventilation, not in acute distress. HEENT: Normocephalic and atraumatic. Pupils slightly responsive to light. Unable to assess oral mucosa with E-tube in place. NECK: Supple. No lymphadenopathy. CARDIOVASCULAR: He is tachycardic. S1, S2 normal. No murmur can be heard. LUNGS: Diminished breathing sounds at the bases. No wheezing or rhonchi. Normal breathing effort. Mechanically ventilated. ABDOMEN: Soft, nontender, and nondistended. Normal bowel sounds. No hepatosplenomegaly or ascites. No organomegaly. EXTREMITIES: No edema or cyanosis. labs: dated Jan 28 reviewed IMAGING: Chest x-ray dated February 01 is negative for any pneumothorax. Meds: reviewed and reconciled ASSESSMENT AND PLAN: 1. Vent dependent respiratory failure. 2. Sepsis- Gram negative HCA PNA 3. Chronic obstructive pulmonary disease, end-stage, oxygen-dependent. 3. Cardiopulmonary arrest, status post resuscitation x2. 4. Hypertension. 5. Abnormal blood sugar. 6. Anemia. 7. Abn Trop: likely secondary to #3 7. GI and DVT prophylaxis. PLAN OF CARE: Current Antibiotic management Restarted Lovenox, will monitor plt count Weaning protocol , defer to pulmonary Improving Sodium level Notes from Nephrology reviewed Subjective Allergies: Coded Allergies: No Known Allergies (Unverified , 06/05/18) Objective Last 24 Hour Vital Signs Date Time Temp Pulse Resp B/P (MAP) Pulse Ox O2 Delivery O2 Flow Rate FiO2 02/08/19 13:00 16 Mechanical Ventilator 30 02/08/19 12:45 62 16 30 02/08/19 12:30 66 16 152/60 (90) 100 02/08/19 12:30 16 Mechanical Ventilator 30 02/08/19 12:15 14 Mechanical Ventilator 30 02/08/19 12:00 Mechanical Ventilator 02/08/19 12:00 16 Mechanical Ventilator 30 02/08/19 12:00 30 02/08/19 12:00 97.9 77 15 161/98 (119) 100 02/08/19 11:30 59 16 140/78 (98) 100 02/08/19 11:30 58 16 30 02/08/19 11:26 53 02/08/19 11:00 58 16 105/55 (72) 100 02/08/19 11:00 18 Mechanical Ventilator 30 02/08/19 10:30 58 15 112/59 (76) 100 02/08/19 10:00 16 Mechanical Ventilator 30 02/08/19 10:00 55 15 120/58 (78) 100 02/08/19 09:30 62 16 108/41 (63) 100 02/08/19 09:15 75 16 173/51 (91) 100 02/08/19 09:15 158/61 02/08/19 09:00 30 02/08/19 09:00 79 18 187/91 (123) 100 02/08/19 09:00 100 02/08/19 09:00 16 Mechanical Ventilator 30 02/08/19 09:00 79 16 30 02/08/19 08:55 61 15 30 02/08/19 08:30 57 9 117/59 (78) 100 02/08/19 08:00 Mechanical Ventilator 02/08/19 08:00 16 Mechanical Ventilator 30 02/08/19 08:00 97.0 62 15 144/71 (95) 100 02/08/19 07:37 61 02/08/19 07:30 57 12 136/59 (84) 100 02/08/19 07:00 61 16 158/61 (93) 100 02/08/19 07:00 16 Mechanical Ventilator 30 02/08/19 06:57 57 17 30 02/08/19 06:30 61 16 142/60 (87) 100 02/08/19 06:00 16 Mechanical Ventilator 30 02/08/19 06:00 62 16 141/61 (87) 100 02/08/19 05:30 56 16 141/61 (87) 100 02/08/19 05:12 58 16 30 02/08/19 05:00 62 12 119/62 (81) 100 02/08/19 05:00 16 Mechanical Ventilator 30 02/08/19 04:30 59 13 143/66 (91) 100 02/08/19 04:29 16 Mechanical Ventilator 30 02/08/19 04:00 16 Mechanical Ventilator 30 02/08/19 04:00 62 02/08/19 04:00 97.9 69 17 169/75 (106) 100 02/08/19 04:00 Mechanical Ventilator 02/08/19 04:00 30 02/08/19 03:30 67 16 163/68 (99) 100 02/08/19 03:00 69 16 152/68 (96) 100 02/08/19 02:53 61 16 30 02/08/19 02:30 72 17 157/52 (87) 100 02/08/19 02:00 85 18 148/87 (107) 100 02/08/19 02:00 16 Mechanical Ventilator 30 02/08/19 01:30 45 16 158/75 (102) 100 02/08/19 01:22 65 16 30 02/08/19 01:00 16 Mechanical Ventilator 30 02/08/19 01:00 16 Mechanical Ventilator 30 02/08/19 01:00 59 16 84/53 (63) 100 02/08/19 00:30 42 16 72/49 (57) 100 02/08/19 00:00 Mechanical Ventilator 02/08/19 00:00 98.6 66 16 88/52 (64) 100 02/08/19 00:00 16 Mechanical Ventilator 30 02/08/19 00:00 30 02/08/19 00:00 53 02/07/19 23:30 72 16 130/77 (94) 100 02/07/19 23:20 65 16 30 02/07/19 23:00 16 Mechanical Ventilator 30 02/07/19 23:00 71 16 165/83 (110) 100 02/07/19 22:30 61 14 146/67 (93) 100 02/07/19 22:00 61 16 148/59 (88) 100 02/07/19 22:00 16 Mechanical Ventilator 30 02/07/19 21:45 82 16 30 02/07/19 21:30 73 14 150/53 (85) 100 02/07/19 21:00 Mechanical Ventilator 30 02/07/19 21:00 62 20 162/83 (109) 100 02/07/19 20:30 71 16 174/66 (102) 100 02/07/19 20:00 99.1 86 18 179/96 (123) 93 02/07/19 20:00 Mechanical Ventilator 02/07/19 20:00 16 Mechanical Ventilator 30 02/07/19 20:00 62 02/07/19 20:00 30 02/07/19 19:36 68 16 30 02/07/19 19:30 63 17 156/61 (92) 100 02/07/19 19:00 78 15 159/62 (94) 100 02/07/19 19:00 16 Mechanical Ventilator 30 02/07/19 18:30 78 16 156/64 (94) 100 02/07/19 18:00 78 17 178/71 (106) 100 02/07/19 18:00 16 Mechanical Ventilator 30 02/07/19 17:30 72 16 173/88 (116) 100 02/07/19 17:09 62 16 30 02/07/19 17:00 57 14 95/51 (66) 100 02/07/19 17:00 17 Mechanical Ventilator 30 02/07/19 16:30 63 13 127/56 (79) 100 02/07/19 16:00 Mechanical Ventilator 02/07/19 16:00 79 02/07/19 16:00 30 02/07/19 16:00 98.9 75 19 138/65 (89) 100 02/07/19 16:00 17 Mechanical Ventilator 30 02/07/19 15:30 88 21 170/75 (106) 97 02/07/19 15:00 17 Mechanical Ventilator 30 02/07/19 15:00 81 18 170/76 (107) 99 02/07/19 14:34 82 19 30 02/07/19 14:30 76 20 165/63 (97) 100 Intake and Output 02/07/19 02/08/19 18:59 06:59 Intake Total 1795.66026 ml 909 ml Output Total 1620 ml 750 ml Balance 175.06156 ml 159 ml IV Total 1360.80555 ml 504 ml Tube Feeding 405 ml 405 ml Other 30 ml Output Urine Total 1620 ml 750 ml # Bowel Movements 1 Laboratory Tests 02/08/19 09:50: Vancomycin Level Trough 10.8 02/08/19 13:20: White Blood Count 17.3H, Red Blood Count 3.20L, Hemoglobin 9.6L, Hematocrit 30.4L, Mean Corpuscular Volume 95, Mean Corpuscular Hemoglobin 29.9, Mean Corpuscular Hemoglobin Concent 31.5L, Red Cell Distribution Width 14.6, Platelet Count 100L, Mean Platelet Volume 7.5, Neutrophils (%) (Auto) , Lymphocytes (%) (Auto) , Monocytes (%) (Auto) , Eosinophils (%) (Auto) , Basophils (%) (Auto) , Differential Total Cells Counted 100, Neutrophils % ( Manual) 93H, Lymphocytes % (Manual) 4L, Monocytes % (Manual) 3, Eosinophils % ( Manual) 0, Basophils % (Manual) 0, Band Neutrophils 0, Platelet Estimate DecreasedL, Platelet Morphology Normal, Hypochromasia 1+, Anisocytosis 1+, Sodium Level [Pending], Potassium Level [Pending], Chloride Level [Pending], Carbon Dioxide Level [Pending], Blood Urea Nitrogen [Pending], Creatinine [ Pending], Estimat Glomerular Filtration Rate [Pending], Glucose Level [Pending] , Calcium Level [Pending], Phosphorus Level [Pending], Magnesium Level [Pending] Height (Feet): 5 Height (Inches): 10.00 Weight (Pounds): 161 Brianne Henry MD Feb 08, 2019 14:20
[2019-02-08 14:25] LABS: CALCIUM 5.9 MG/DL (8.5-10.1); POTASSIUM 2.4 MMOL/L (3.5-5.1)
--- NOTE | 2019-02-08 15:01 | Hematology/Onc Progress Note ---
Assessment/Plan Assessment/Plan # Thrombocytopenia is likely due to underlying infection/sepsis v dic, reactive process --> hiv is neg, hepatitis is neg as well --> us of the abd from prior 2018 --> plt rend 140-->115-->105-->133-->110k--> 118k-->100k --> okay for ppx as long as above 75k --> meds have been reviewed # Anemia of chronic disease, due to multifactorial causes --> anemia panel reviewed from earlier in admission and c/w acd --> hgb goal is >7 --> no hemolysis is seen --> smear has been reviewed --> hgb trend 9.3-->11.1-->9.6 # Leukocytosis/elevated white blood cell count, unspecified likely related to steroid meds --> have reviewed peripheral smear and bandemia/neutrophilia noted --> continue antibiotics if they have been started by ID team, zosyn --> monitor for resolution --> wbc trend 14-->18-->24.3-->17.3 # COPD exacerbation with asp pna --> has been given steriods --> per id for aspiration prec on zosyn --> rochelle/vanc # Hypercapneic respiratory failure --> remains on vent --> sbt per pulm # S/p cardiac arrest in the ED # CHF # HTN # Diabetes # DNR status # Dysphagia with NG++ Time of note does not correspond to when patient was seen. Greatly appreciate consultation. Subjective Allergies: Coded Allergies: No Known Allergies (Unverified , 06/05/18) Subjective 02/01: no events to report, plt is lower, weaning trial initiated with mack gray rn, hiv neg 02/04: icu, wbc elevated, on abx 02/05: remains on vent, fighting vent, on abx remains on lovenox, on steriods 02/06: icu, on vent, vs stable, no sob or respiratory distress 02/07: remains in the icu, intubated, ng tube, weaning trial today 02/08: icu, restless and agitated, extubation pending, wbc improved Objective Objective Current Medications Medications (Trade) Dose Ordered Sig/Brittani Route PRN Reason Start Time Stop Time Status Last Admin Dose Admin Acetaminophen (Tylenol) 650 mg Q4H PRN NG FOR MILD PAIN 01/26/19 10:15 02/25/19 10:14 Albuterol/ Ipratropium (Albuterol/ Ipratropium) 3 ml Q4HRT HHN 02/08/19 15:00 02/13/19 14:59 Chlorhexidine Gluconate (Rneetta-Hex 2%) 1 applic DAILY@2000 TOPIC 02/07/19 20:00 03/09/19 19:59 02/07/19 20:51 Dextrose (Dextrose 50%) 25 ml Q30M PRN IV Hypoglycemia 01/26/19 10:30 02/25/19 10:29 Dextrose (Dextrose 50%) 50 ml Q30M PRN IV Hypoglycemia 01/26/19 10:30 02/25/19 10:29 Docusate Sodium (Colace) 100 mg BID NG 02/02/19 18:00 03/04/19 17:59 02/08/19 09:50 Dopamine HCl/ Dextrose 250 ml @ 0 mls/hr Q24H IV 02/06/19 09:15 03/08/19 09:14 Enoxaparin Sodium (Lovenox) 40 mg DAILY SUBQ 01/31/19 09:00 03/02/19 08:59 02/08/19 09:52 Fentanyl Citrate 2500 mcg/Sodium Chloride 250 ml @ 0 mls/hr Q24H IV 02/02/19 12:00 02/09/19 11:59 02/08/19 04:29 Hydralazine HCl (Apresoline) 25 mg Q6H PRN NG For High Blood Pressure 02/07/19 17:15 03/06/19 16:59 Insulin Aspart (NovoLOG) Q6HR SUBQ 01/26/19 12:00 02/25/19 11:59 02/07/19 23:39 Magnesium Sulfate 100 ml @ 100 mls/hr Q1H IVPB 02/08/19 14:30 02/08/19 18:29 02/08/19 14:54 Meropenem 1 gm/ Sodium Chloride 55 ml @ 110 mls/hr Q8HR IVPB 02/06/19 22:00 02/11/19 21:59 02/08/19 14:29 Methylprednisolone Sodium Succinate (Solu-MEDROL) 40 mg EVERY 12 HOURS IVP 02/07/19 21:00 03/09/19 20:59 02/08/19 09:50 Pantoprazole (Protonix) 40 mg Q12HR IVP 02/03/19 21:00 02/25/19 10:59 02/08/19 09:50 Polyethylene Glycol (Miralax) 17 gm BEDTIME NG 02/07/19 21:00 03/03/19 20:59 02/07/19 20:52 Potassium Phosphate 20 mm/ Sodium Chloride 281.6667 ml @ 46.944 m... ONCE ONCE IV 02/08/19 15:30 02/08/19 21:29 Potassium Chloride 100 ml @ 50 mls/hr Q2H IVPB 02/08/19 14:30 02/08/19 20:29 Vancomycin HCl (Vanco rx to dose) 1 ea DAILY PRN MISC Per rx protocol 02/06/19 20:00 03/08/19 19:59 Vancomycin HCl 750 mg/Sodium Chloride 275 ml @ 183.333 mls/hr Q8HR@0400,1200,2000 IVPB 02/08/19 20:00 02/13/19 19:59 Last 24 Hour Vital Signs Date Time Temp Pulse Resp B/P (MAP) Pulse Ox O2 Delivery O2 Flow Rate FiO2 02/08/19 14:00 59 15 114/65 (81) 100 02/08/19 13:30 60 19 131/59 (83) 100 02/08/19 13:00 16 Mechanical Ventilator 30 02/08/19 13:00 59 17 120/58 (78) 100 02/08/19 12:45 62 16 30 02/08/19 12:30 66 16 152/60 (90) 100 02/08/19 12:30 16 Mechanical Ventilator 30 02/08/19 12:15 14 Mechanical Ventilator 30 02/08/19 12:00 Mechanical Ventilator 02/08/19 12:00 16 Mechanical Ventilator 30 02/08/19 12:00 30 02/08/19 12:00 97.9 77 15 161/98 (119) 100 02/08/19 11:30 59 16 140/78 (98) 100 02/08/19 11:30 58 16 30 02/08/19 11:26 53 02/08/19 11:00 58 16 105/55 (72) 100 02/08/19 11:00 18 Mechanical Ventilator 30 02/08/19 10:30 58 15 112/59 (76) 100 02/08/19 10:00 16 Mechanical Ventilator 30 02/08/19 10:00 55 15 120/58 (78) 100 02/08/19 09:30 62 16 108/41 (63) 100 02/08/19 09:15 75 16 173/51 (91) 100 02/08/19 09:15 158/61 02/08/19 09:00 30 02/08/19 09:00 79 18 187/91 (123) 100 02/08/19 09:00 100 02/08/19 09:00 16 Mechanical Ventilator 30 02/08/19 09:00 79 16 30 02/08/19 08:55 61 15 30 02/08/19 08:30 57 9 117/59 (78) 100 02/08/19 08:00 Mechanical Ventilator 02/08/19 08:00 16 Mechanical Ventilator 30 02/08/19 08:00 97.0 62 15 144/71 (95) 100 02/08/19 07:37 61 02/08/19 07:30 57 12 136/59 (84) 100 02/08/19 07:00 61 16 158/61 (93) 100 02/08/19 07:00 16 Mechanical Ventilator 30 02/08/19 06:57 57 17 30 02/08/19 06:30 61 16 142/60 (87) 100 02/08/19 06:00 16 Mechanical Ventilator 30 02/08/19 06:00 62 16 141/61 (87) 100 02/08/19 05:30 56 16 141/61 (87) 100 02/08/19 05:12 58 16 30 02/08/19 05:00 62 12 119/62 (81) 100 02/08/19 05:00 16 Mechanical Ventilator 30 02/08/19 04:30 59 13 143/66 (91) 100 02/08/19 04:29 16 Mechanical Ventilator 30 02/08/19 04:00 16 Mechanical Ventilator 30 02/08/19 04:00 62 02/08/19 04:00 97.9 69 17 169/75 (106) 100 02/08/19 04:00 Mechanical Ventilator 02/08/19 04:00 30 02/08/19 03:30 67 16 163/68 (99) 100 02/08/19 03:00 69 16 152/68 (96) 100 02/08/19 02:53 61 16 30 02/08/19 02:30 72 17 157/52 (87) 100 02/08/19 02:00 85 18 148/87 (107) 100 02/08/19 02:00 16 Mechanical Ventilator 30 02/08/19 01:30 45 16 158/75 (102) 100 02/08/19 01:22 65 16 30 02/08/19 01:00 16 Mechanical Ventilator 30 02/08/19 01:00 16 Mechanical Ventilator 30 02/08/19 01:00 59 16 84/53 (63) 100 02/08/19 00:30 42 16 72/49 (57) 100 02/08/19 00:00 Mechanical Ventilator 02/08/19 00:00 98.6 66 16 88/52 (64) 100 02/08/19 00:00 16 Mechanical Ventilator 30 02/08/19 00:00 30 02/08/19 00:00 53 02/07/19 23:30 72 16 130/77 (94) 100 02/07/19 23:20 65 16 30 02/07/19 23:00 16 Mechanical Ventilator 30 02/07/19 23:00 71 16 165/83 (110) 100 02/07/19 22:30 61 14 146/67 (93) 100 02/07/19 22:00 61 16 148/59 (88) 100 02/07/19 22:00 16 Mechanical Ventilator 30 02/07/19 21:45 82 16 30 02/07/19 21:30 73 14 150/53 (85) 100 02/07/19 21:00 Mechanical Ventilator 30 02/07/19 21:00 62 20 162/83 (109) 100 02/07/19 20:30 71 16 174/66 (102) 100 02/07/19 20:00 99.1 86 18 179/96 (123) 93 02/07/19 20:00 Mechanical Ventilator 02/07/19 20:00 16 Mechanical Ventilator 30 02/07/19 20:00 62 02/07/19 20:00 30 02/07/19 19:36 68 16 30 02/07/19 19:30 63 17 156/61 (92) 100 02/07/19 19:00 78 15 159/62 (94) 100 02/07/19 19:00 16 Mechanical Ventilator 30 02/07/19 18:30 78 16 156/64 (94) 100 02/07/19 18:00 78 17 178/71 (106) 100 02/07/19 18:00 16 Mechanical Ventilator 30 02/07/19 17:30 72 16 173/88 (116) 100 02/07/19 17:09 62 16 30 02/07/19 17:00 57 14 95/51 (66) 100 02/07/19 17:00 17 Mechanical Ventilator 30 02/07/19 16:30 63 13 127/56 (79) 100 02/07/19 16:00 Mechanical Ventilator 02/07/19 16:00 79 02/07/19 16:00 30 02/07/19 16:00 98.9 75 19 138/65 (89) 100 02/07/19 16:00 17 Mechanical Ventilator 30 02/07/19 15:30 88 21 170/75 (106) 97 02/07/19 15:00 17 Mechanical Ventilator 30 02/07/19 15:00 81 18 170/76 (107) 99 02/07/19 14:34 82 19 30 02/07/19 14:30 76 20 165/63 (97) 100 02/07/19 14:00 19 Mechanical Ventilator 30 02/07/19 14:00 84 18 165/68 (100) 100 02/07/19 13:30 78 17 178/80 (112) 100 02/07/19 13:00 19 Mechanical Ventilator 30 02/07/19 13:00 70 18 146/96 (113) 100 02/07/19 12:50 82 16 30 02/07/19 12:30 84 17 185/81 (115) 100 02/07/19 12:00 Mechanical Ventilator 02/07/19 12:00 30 02/07/19 12:00 87 02/07/19 12:00 17 Mechanical Ventilator 30 02/07/19 12:00 99.8 81 23 151/64 (93) 100 02/07/19 11:30 20 Mechanical Ventilator 30 02/07/19 11:30 88 21 170/76 (107) 100 02/07/19 11:25 21 Mechanical Ventilator 30 02/07/19 11:20 22 Mechanical Ventilator 30 02/07/19 11:15 23 Mechanical Ventilator 30 02/07/19 11:10 23 Mechanical Ventilator 30 02/07/19 11:05 23 Mechanical Ventilator 30 02/07/19 11:00 91 21 169/92 (117) 100 02/07/19 11:00 19 Mechanical Ventilator 30 02/07/19 10:40 30 02/07/19 10:38 82 18 30 02/07/19 10:30 86 21 182/74 (110) 100 02/07/19 10:30 17 Mechanical Ventilator 30 02/07/19 10:25 18 Mechanical Ventilator 30 02/07/19 10:20 21 Mechanical Ventilator 30 02/07/19 10:15 22 Mechanical Ventilator 30 02/07/19 10:10 23 Mechanical Ventilator 30 02/07/19 10:05 22 Mechanical Ventilator 30 02/07/19 10:00 21 Mechanical Ventilator 30 02/07/19 10:00 85 20 134/80 (98) 98 02/07/19 09:54 17 Mechanical Ventilator 30 02/07/19 09:30 93 21 175/77 (109) 100 02/07/19 09:15 175/75 02/07/19 09:00 90 23 144/72 (96) 100 02/07/19 08:30 30 02/07/19 08:30 95 20 169/74 (105) 100 02/07/19 08:30 99 02/07/19 08:30 89 15 30 02/07/19 08:00 98.8 90 19 170/94 (119) 100 02/07/19 08:00 Mechanical Ventilator 02/07/19 08:00 25 Mechanical Ventilator 30 02/07/19 08:00 100 02/07/19 08:00 30 02/07/19 07:30 93 17 181/87 (118) 100 02/07/19 07:10 96 18 30 02/07/19 07:09 82 16 147/95 (112) 100 02/07/19 07:00 82 16 147/95 (112) 100 02/07/19 07:00 16 Mechanical Ventilator 30 02/07/19 06:30 92 16 164/91 (115) 100 02/07/19 06:00 88 16 174/95 (121) 100 02/07/19 06:00 16 Mechanical Ventilator 30 02/07/19 05:30 89 17 156/69 (98) 100 02/07/19 05:00 85 17 30 02/07/19 05:00 84 16 171/77 (108) 100 02/07/19 05:00 17 Mechanical Ventilator 30 02/07/19 04:30 91 17 105/81 (89) 100 02/07/19 04:00 30 02/07/19 04:00 16 Mechanical Ventilator 30 02/07/19 04:00 98.8 86 17 160/90 (113) 100 02/07/19 04:00 Mechanical Ventilator 02/07/19 04:00 86 02/07/19 03:30 81 19 167/82 (110) 100 02/07/19 03:00 16 Mechanical Ventilator 30 02/07/19 03:00 52 16 105/73 (84) 100 02/07/19 02:51 59 16 30 02/07/19 02:30 61 16 103/53 (70) 100 02/07/19 02:00 16 Mechanical Ventilator 30 02/07/19 02:00 60 16 108/59 (75) 100 02/07/19 01:30 61 16 108/48 (68) 100 02/07/19 01:00 17 Mechanical Ventilator 30 02/07/19 01:00 58 16 30 02/07/19 01:00 58 16 100/60 (73) 100 02/07/19 00:30 62 16 113/53 (73) 100 02/07/19 00:00 62 02/07/19 00:00 98.7 62 16 102/52 (69) 100 02/07/19 00:00 Mechanical Ventilator 02/07/19 00:00 16 Mechanical Ventilator 30 02/07/19 00:00 30 02/06/19 23:30 63 16 150/54 (86) 100 02/06/19 23:20 65 16 30 02/06/19 23:00 75 20 164/71 (102) 100 02/06/19 23:00 16 Mechanical Ventilator 30 02/06/19 22:30 55 16 106/53 (70) 100 02/06/19 22:00 52 16 112/64 (80) 100 02/06/19 22:00 16 Mechanical Ventilator 30 02/06/19 21:30 50 16 128/64 (85) 100 02/06/19 21:09 57 16 30 02/06/19 21:00 60 16 103/55 (71) 100 02/06/19 21:00 16 Mechanical Ventilator 30 02/06/19 20:30 58 16 124/64 (84) 100 02/06/19 20:00 30 02/06/19 20:00 Mechanical Ventilator 02/06/19 20:00 62 02/06/19 20:00 98.6 62 17 119/60 (79) 100 02/06/19 20:00 16 Mechanical Ventilator 30 02/06/19 19:30 65 16 145/61 (89) 100 02/06/19 19:18 68 16 30 02/06/19 19:00 66 16 146/93 (110) 100 02/06/19 19:00 16 Mechanical Ventilator 30 02/06/19 18:30 65 16 142/67 (92) 100 02/06/19 18:00 66 16 143/69 (93) 100 02/06/19 18:00 16 Mechanical Ventilator 30 02/06/19 17:30 70 16 151/108 (122) 100 02/06/19 17:00 16 Mechanical Ventilator 30 02/06/19 17:00 74 16 152/63 (92) 100 02/06/19 16:40 84 16 30 02/06/19 16:30 97.8 78 14 159/64 (95) 100 02/06/19 16:00 30 02/06/19 16:00 16 Mechanical Ventilator 30 02/06/19 16:00 60 16 165/94 (117) 100 02/06/19 16:00 66 02/06/19 16:00 Mechanical Ventilator 02/06/19 15:30 69 16 120/62 (81) 100 02/06/19 15:00 16 Mechanical Ventilator 30 02/06/19 15:00 72 16 152/68 (96) 100 Intake and Output 02/07/19 02/08/19 18:59 06:59 Intake Total 1795.75947 ml 909 ml Output Total 1620 ml 750 ml Balance 175.66460 ml 159 ml IV Total 1360.64508 ml 504 ml Tube Feeding 405 ml 405 ml Other 30 ml Output Urine Total 1620 ml 750 ml # Bowel Movements 1 Labs Test 02/06/19 05:37 02/07/19 10:20 02/08/19 09:50 02/08/19 13:20 White Blood Count 24.3 K/UL (4.8-10.8) 17.3 K/UL (4.8-10.8) Red Blood Count 3.68 M/UL (4.70-6.10) 3.20 M/UL (4.70-6.10) Hemoglobin 11.1 G/DL (14.2-18.0) 9.6 G/DL (14.2-18.0) Hematocrit 35.4 % (42.0-52.0) 30.4 % (42.0-52.0) Mean Corpuscular Volume 96 FL (80-99) 95 FL (80-99) Mean Corpuscular Hemoglobin 30.2 PG (27.0-31.0) 29.9 PG (27.0-31.0) Mean Corpuscular Hemoglobin Concent 31.4 G/DL (32.0-36.0) 31.5 G/DL (32.0-36.0) Red Cell Distribution Width 14.9 % (11.6-14.8) 14.6 % (11.6-14.8) Platelet Count 118 K/UL (150-450) 100 K/UL (150-450) Mean Platelet Volume 7.4 FL (6.5-10.1) 7.5 FL (6.5-10.1) Neutrophils (%) (Auto) % (45.0-75.0) % (45.0-75.0) Lymphocytes (%) (Auto) % (20.0-45.0) % (20.0-45.0) Monocytes (%) (Auto) % (1.0-10.0) % (1.0-10.0) Eosinophils (%) (Auto) % (0.0-3.0) % (0.0-3.0) Basophils (%) (Auto) % (0.0-2.0) % (0.0-2.0) Differential Total Cells Counted 100 100 Neutrophils % (Manual) 91 % (45-75) 93 % (45-75) Lymphocytes % (Manual) 4 % (20-45) 4 % (20-45) Monocytes % (Manual) 5 % (1-10) 3 % (1-10) Eosinophils % (Manual) 0 % (0-3) 0 % (0-3) Basophils % (Manual) 0 % (0-2) 0 % (0-2) Band Neutrophils 0 % (0-8) 0 % (0-8) Platelet Estimate Decreased Decreased Platelet Morphology Normal Normal Hypochromasia 1+ 1+ Anisocytosis 1+ 1+ Sodium Level 142 MMOL/L (136-145) 143 MMOL/L (136-145) Potassium Level 3.8 MMOL/L (3.5-5.1) 2.4 MMOL/L (3.5-5.1) Chloride Level 106 MMOL/L (98-107) 112 MMOL/L (98-107) Carbon Dioxide Level 32 MMOL/L (21-32) 27 MMOL/L (21-32) Anion Gap 4 mmol/L (5-15) 4 mmol/L (5-15) Blood Urea Nitrogen 27 mg/dL (7-18) 16 mg/dL (7-18) Creatinine 0.7 MG/DL (0.55-1.30) 0.5 MG/DL (0.55-1.30) Estimat Glomerular Filtration Rate mL/min (>60) mL/min (>60) Glucose Level 174 MG/DL (74-106) 162 MG/DL (74-106) Calcium Level 8.3 MG/DL (8.5-10.1) 5.9 MG/DL (8.5-10.1) Phosphorus Level 3.0 MG/DL (2.5-4.9) 2.1 MG/DL (2.5-4.9) Magnesium Level 1.9 MG/DL (1.8-2.4) 1.1 MG/DL (1.8-2.4) Total Bilirubin 0.7 MG/DL (0.2-1.0) Direct Bilirubin 0.2 MG/DL (0.0-0.3) Aspartate Amino Transf (AST/SGOT) 26 U/L (15-37) Alanine Aminotransferase (ALT/SGPT) 53 U/L (12-78) Alkaline Phosphatase 63 U/L (46-116) Total Protein 5.7 G/DL (6.4-8.2) Albumin 2.4 G/DL (3.4-5.0) Arterial Blood pH 7.375 (7.350-7.450) Arterial Blood Partial Pressure CO2 57.2 mmHg (35.0-45.0) Arterial Blood Partial Pressure O2 92.7 mmHg (75.0-100.0) Arterial Blood HCO3 32.7 mmol/L (22.0-26.0) Arterial Blood Oxygen Saturation 96.2 % (95-100) Arterial Blood Base Excess 6.1 (-2-2) Delon Test Positive Vancomycin Level Trough 10.8 ug/mL (5.0-12.0) Height (Feet): 5 Height (Inches): 10.00 Weight (Pounds): 161 Objective General Appearance: sedated on ventilator Head: normocephalic, atraumatic Neck: supple ++ NG Respiratory: generally reduced bs + VENT Cardiovascular: tachycardia, HS1, HS2, RRR Gastrointestinal: non tender, soft Musculoskeletal: normal inspection Neurologic: sedated on ventilator Skin: no rash, palpation normal Conrado Moerl MD Feb 08, 2019 15:01
[2019-02-08] MEDS: Albuterol/Ipratropium 3ml neb HHN SCH ×3 (15:19→23:36)
[2019-02-08] MEDS ORDERED: Potassium Phosphate 20 MM in NS 275 ML IV ONE (15:30)
--- NOTE | 2019-02-08 15:35 | Infectious Diseases Prog Note ---
Assessment/Plan Problems: (1) Aspiration pneumonia Assessment & Plan: with thick secretion , continue meropenem and vancomycin empirically for now . repeated CXR no new infiltrates , aspiration precaution (2) Leukocytosis Assessment & Plan: rule out sepsis, await repeated blood culture x2 , continue meropenem and vancomycin empirically pending cultures . IJ line was removed (3) Acute exacerbation of chronic obstructive pulmonary disease (COPD) Assessment & Plan: S/P doxycycline , and nebulizer treatment as per pulmonary (4) Cardiac arrest Assessment & Plan: etiology ? cardiology eval to rule out cardiac sources and neurology eval to evaluate his brain condition and to rule out anoxic brain injury (5) Chronic hypercapnic respiratory failure Assessment & Plan: S/P cardiac arrest , S/P intubation, monitor in ICU, failing weaning trials so far , pulmonary is following Subjective ROS Limited/Unobtainable: Yes Allergies: Coded Allergies: No Known Allergies (Unverified , 06/05/18) Subjective He is still intubated on mechanical ventilation, awake and responsive to verbal commands , still failing weaning trials , has low grade fever Objective Vital Signs Last 24 Hour Vital Signs Date Time Temp Pulse Resp B/P (MAP) Pulse Ox O2 Delivery O2 Flow Rate FiO2 02/08/19 15:19 56 16 100 Mechanical Ventilator 30 02/08/19 15:18 55 16 30 02/08/19 14:00 59 15 114/65 (81) 100 02/08/19 13:30 60 19 131/59 (83) 100 02/08/19 13:00 16 Mechanical Ventilator 30 02/08/19 13:00 59 17 120/58 (78) 100 02/08/19 12:45 62 16 30 02/08/19 12:30 66 16 152/60 (90) 100 02/08/19 12:30 16 Mechanical Ventilator 30 02/08/19 12:15 14 Mechanical Ventilator 30 02/08/19 12:00 Mechanical Ventilator 02/08/19 12:00 16 Mechanical Ventilator 30 02/08/19 12:00 30 02/08/19 12:00 97.9 77 15 161/98 (119) 100 02/08/19 11:30 59 16 140/78 (98) 100 02/08/19 11:30 58 16 30 02/08/19 11:26 53 02/08/19 11:00 58 16 105/55 (72) 100 02/08/19 11:00 18 Mechanical Ventilator 30 02/08/19 10:30 58 15 112/59 (76) 100 02/08/19 10:00 16 Mechanical Ventilator 30 02/08/19 10:00 55 15 120/58 (78) 100 02/08/19 09:30 62 16 108/41 (63) 100 02/08/19 09:15 75 16 173/51 (91) 100 02/08/19 09:15 158/61 02/08/19 09:00 30 02/08/19 09:00 79 18 187/91 (123) 100 02/08/19 09:00 100 02/08/19 09:00 16 Mechanical Ventilator 30 02/08/19 09:00 79 16 30 02/08/19 08:55 61 15 30 02/08/19 08:30 57 9 117/59 (78) 100 02/08/19 08:00 Mechanical Ventilator 02/08/19 08:00 16 Mechanical Ventilator 30 02/08/19 08:00 97.0 62 15 144/71 (95) 100 02/08/19 07:37 61 02/08/19 07:30 57 12 136/59 (84) 100 02/08/19 07:00 61 16 158/61 (93) 100 02/08/19 07:00 16 Mechanical Ventilator 30 02/08/19 06:57 57 17 30 02/08/19 06:30 61 16 142/60 (87) 100 02/08/19 06:00 16 Mechanical Ventilator 30 02/08/19 06:00 62 16 141/61 (87) 100 02/08/19 05:30 56 16 141/61 (87) 100 02/08/19 05:12 58 16 30 02/08/19 05:00 62 12 119/62 (81) 100 02/08/19 05:00 16 Mechanical Ventilator 30 02/08/19 04:30 59 13 143/66 (91) 100 02/08/19 04:29 16 Mechanical Ventilator 30 02/08/19 04:00 16 Mechanical Ventilator 30 02/08/19 04:00 62 02/08/19 04:00 97.9 69 17 169/75 (106) 100 02/08/19 04:00 Mechanical Ventilator 02/08/19 04:00 30 02/08/19 03:30 67 16 163/68 (99) 100 02/08/19 03:00 69 16 152/68 (96) 100 02/08/19 02:53 61 16 30 02/08/19 02:30 72 17 157/52 (87) 100 02/08/19 02:00 85 18 148/87 (107) 100 02/08/19 02:00 16 Mechanical Ventilator 30 02/08/19 01:30 45 16 158/75 (102) 100 02/08/19 01:22 65 16 30 02/08/19 01:00 16 Mechanical Ventilator 30 02/08/19 01:00 16 Mechanical Ventilator 30 02/08/19 01:00 59 16 84/53 (63) 100 02/08/19 00:30 42 16 72/49 (57) 100 02/08/19 00:00 Mechanical Ventilator 02/08/19 00:00 98.6 66 16 88/52 (64) 100 02/08/19 00:00 16 Mechanical Ventilator 30 02/08/19 00:00 30 02/08/19 00:00 53 02/07/19 23:30 72 16 130/77 (94) 100 02/07/19 23:20 65 16 30 02/07/19 23:00 16 Mechanical Ventilator 30 02/07/19 23:00 71 16 165/83 (110) 100 02/07/19 22:30 61 14 146/67 (93) 100 02/07/19 22:00 61 16 148/59 (88) 100 02/07/19 22:00 16 Mechanical Ventilator 30 02/07/19 21:45 82 16 30 02/07/19 21:30 73 14 150/53 (85) 100 02/07/19 21:00 Mechanical Ventilator 30 02/07/19 21:00 62 20 162/83 (109) 100 02/07/19 20:30 71 16 174/66 (102) 100 02/07/19 20:00 99.1 86 18 179/96 (123) 93 02/07/19 20:00 Mechanical Ventilator 02/07/19 20:00 16 Mechanical Ventilator 30 02/07/19 20:00 62 02/07/19 20:00 30 02/07/19 19:36 68 16 30 02/07/19 19:30 63 17 156/61 (92) 100 02/07/19 19:00 78 15 159/62 (94) 100 02/07/19 19:00 16 Mechanical Ventilator 30 02/07/19 18:30 78 16 156/64 (94) 100 02/07/19 18:00 78 17 178/71 (106) 100 02/07/19 18:00 16 Mechanical Ventilator 30 02/07/19 17:30 72 16 173/88 (116) 100 02/07/19 17:09 62 16 30 02/07/19 17:00 57 14 95/51 (66) 100 02/07/19 17:00 17 Mechanical Ventilator 30 02/07/19 16:30 63 13 127/56 (79) 100 02/07/19 16:00 Mechanical Ventilator 02/07/19 16:00 79 02/07/19 16:00 30 02/07/19 16:00 98.9 75 19 138/65 (89) 100 02/07/19 16:00 17 Mechanical Ventilator 30 Height (Feet): 5 Height (Inches): 10.00 Weight (Pounds): 161 General Appearance: WD/WN, no acute distress HEENT: normocephalic, atraumatic, anicteric, mucous membranes moist, PERRL, EOMI, pharynx normal, supple, no JVD Respiratory/Chest: chest wall non-tender, lungs clear, normal breath sounds, no respiratory distress, no accessory muscle use Cardiovascular: normal peripheral pulses, normal rate, regular rhythm, no gallop/murmur, no JVD Abdomen: normal bowel sounds, soft, non tender, no organomegaly, non distended , no mass, no scars Extremities: no cyanosis, no clubbing Skin: no rash, no lesions Neurologic/Psychiatric: alert, responsive Lymphatic: no neck adenopathy, no groin adenopathy Musculoskeletal: normal muscle bulk, no effusion Microbiology Date/Time Source Procedure Growth Status 02/06/19 20:35 Blood Blood Culture - Preliminary NO GROWTH AFTER 24 HOURS Resulted 02/06/19 20:25 Blood Blood Culture - Preliminary NO GROWTH AFTER 24 HOURS Resulted 02/07/19 12:00 Sputum Gram Stain - Final Resulted 02/07/19 12:00 Sputum Sputum Culture - Preliminary NO GROWTH AFTER 24 HOURS Resulted Laboratory Tests Test 02/08/19 09:50 02/08/19 13:20 Vancomycin Level Trough 10.8 ug/mL (5.0-12.0) White Blood Count 17.3 K/UL (4.8-10.8) H Red Blood Count 3.20 M/UL (4.70-6.10) L Hemoglobin 9.6 G/DL (14.2-18.0) L Hematocrit 30.4 % (42.0-52.0) L Mean Corpuscular Volume 95 FL (80-99) Mean Corpuscular Hemoglobin 29.9 PG (27.0-31.0) Mean Corpuscular Hemoglobin Concent 31.5 G/DL (32.0-36.0) L Red Cell Distribution Width 14.6 % (11.6-14.8) Platelet Count 100 K/UL (150-450) L Mean Platelet Volume 7.5 FL (6.5-10.1) Neutrophils (%) (Auto) % (45.0-75.0) Lymphocytes (%) (Auto) % (20.0-45.0) Monocytes (%) (Auto) % (1.0-10.0) Eosinophils (%) (Auto) % (0.0-3.0) Basophils (%) (Auto) % (0.0-2.0) Differential Total Cells Counted 100 Neutrophils % (Manual) 93 % (45-75) H Lymphocytes % (Manual) 4 % (20-45) L Monocytes % (Manual) 3 % (1-10) Eosinophils % (Manual) 0 % (0-3) Basophils % (Manual) 0 % (0-2) Band Neutrophils 0 % (0-8) Platelet Estimate Decreased L Platelet Morphology Normal Hypochromasia 1+ Anisocytosis 1+ Sodium Level 143 MMOL/L (136-145) Potassium Level 2.4 MMOL/L (3.5-5.1) *L Chloride Level 112 MMOL/L (98-107) H Carbon Dioxide Level 27 MMOL/L (21-32) Anion Gap 4 mmol/L (5-15) L Blood Urea Nitrogen 16 mg/dL (7-18) Creatinine 0.5 MG/DL (0.55-1.30) L Estimat Glomerular Filtration Rate mL/min (>60) Glucose Level 162 MG/DL (74-106) H Calcium Level 5.9 MG/DL (8.5-10.1) *L Phosphorus Level 2.1 MG/DL (2.5-4.9) L Magnesium Level 1.1 MG/DL (1.8-2.4) L Current Medications Medications (Trade) Dose Ordered Sig/Brittani Route PRN Reason Start Time Stop Time Status Last Admin Dose Admin Acetaminophen (Tylenol) 650 mg Q4H PRN NG FOR MILD PAIN 01/26/19 10:15 02/25/19 10:14 Albuterol/ Ipratropium (Albuterol/ Ipratropium) 3 ml Q4HRT HHN 02/08/19 15:00 02/13/19 14:59 02/08/19 15:19 Chlorhexidine Gluconate (Renetta-Hex 2%) 1 applic DAILY@2000 TOPIC 02/07/19 20:00 03/09/19 19:59 02/07/19 20:51 Dextrose (Dextrose 50%) 25 ml Q30M PRN IV Hypoglycemia 01/26/19 10:30 02/25/19 10:29 Dextrose (Dextrose 50%) 50 ml Q30M PRN IV Hypoglycemia 01/26/19 10:30 02/25/19 10:29 Docusate Sodium (Colace) 100 mg BID NG 02/02/19 18:00 03/04/19 17:59 02/08/19 09:50 Dopamine HCl/ Dextrose 250 ml @ 0 mls/hr Q24H IV 02/06/19 09:15 03/08/19 09:14 Enoxaparin Sodium (Lovenox) 40 mg DAILY SUBQ 01/31/19 09:00 03/02/19 08:59 02/08/19 09:52 Fentanyl Citrate 2500 mcg/Sodium Chloride 250 ml @ 0 mls/hr Q24H IV 02/02/19 12:00 02/09/19 11:59 02/08/19 04:29 Hydralazine HCl (Apresoline) 25 mg Q6H PRN NG For High Blood Pressure 02/07/19 17:15 03/06/19 16:59 Insulin Aspart (NovoLOG) Q6HR SUBQ 01/26/19 12:00 02/25/19 11:59 02/07/19 23:39 Magnesium Sulfate 100 ml @ 100 mls/hr Q1H IVPB 02/08/19 14:30 02/08/19 18:29 02/08/19 14:54 Meropenem 1 gm/ Sodium Chloride 55 ml @ 110 mls/hr Q8HR IVPB 02/06/19 22:00 02/11/19 21:59 02/08/19 14:29 Methylprednisolone Sodium Succinate (Solu-MEDROL) 40 mg EVERY 12 HOURS IVP 02/07/19 21:00 03/09/19 20:59 02/08/19 09:50 Pantoprazole (Protonix) 40 mg Q12HR IVP 02/03/19 21:00 02/25/19 10:59 02/08/19 09:50 Polyethylene Glycol (Miralax) 17 gm BEDTIME NG 02/07/19 21:00 03/03/19 20:59 02/07/19 20:52 Potassium Phosphate 20 mm/ Sodium Chloride 281.6667 ml @ 46.944 m... ONCE ONCE IV 02/08/19 15:30 02/08/19 21:29 02/08/19 15:23 Potassium Chloride 100 ml @ 50 mls/hr Q2H IVPB 02/08/19 14:30 02/08/19 20:29 02/08/19 15:23 Vancomycin HCl (Vanco rx to dose) 1 ea DAILY PRN MISC Per rx protocol 02/06/19 20:00 03/08/19 19:59 Vancomycin HCl 750 mg/Sodium Chloride 275 ml @ 183.333 mls/hr Q8HR@0400,1200,2000 IVPB 02/08/19 20:00 02/13/19 19:59 [place] Orlando M.D. Feb 08, 2019 15:35
--- NOTE | 2019-02-08 15:41 | NUR ---
RD ASSESSMENT & RECOMMENDATIONS SEE CARE ACTIVITY FOR COMPLETE ASSESSMENT DAILY ESTIMATED NEEDS: Needs based on Critical care, 61kg 25-30 kcals/kg 3793-6132 total kcals 1.2-2 g protein/kg 73-122 g total protein 25-30 mL/kg 7449-7287 total fluid mLs NUTRITION DIAGNOSIS: * Swallowing difficulty R/T respiratory status as evidenced by pt s/p cardiac arrest, s/p intubation, NGT feeds initiated. CURRENT TF:Vital 1.2 @55ml/hr x 24 hrs PO DIET RECOMMENDATIONS: CHAIN DYER eval upon extubation ENTERAL NUTRITION RECOMMENDATIONS: Vital AF 1.2 @55ml/hr x24 hrs to provide 1320ml, 1584 kcal, 99g pro, 1071ml free H2O - Maintain Vital 1.2 @ goal as tolerated. - Flush per MD, HOB over 30 degrees. W/ daily weaning trials and TF being held consider 18hr feeds to meet est needs while feeding is on: rec VITAL 1.2 w/ goal of 75ml/hr x18 hrs to provide 1350ml, 1620 kcal, 101g pro, 1095ml free H2O. ADDITIONAL RECOMMENDATIONS: * Rec 18 hr feeds as above w/ daily weaning, needing to hold TF * Calibrated bed scale wts * CHAIN DYER eval for appropriate texture s/p extubation * Lytes, daily, replete as needed (low k, phos, mag) * Monitor BGs closely while on steroidal med. . .
--- NOTE | 2019-02-08 16:30 | NUR ---
NURSE NOTES: Patient report received from GENNY Ragland. patient is sedated on fentanyl at 160mcg/hr with RASS scale of -2. patient remains intubated with ventilator setting of AC 16, TV: 600, Fio2 at 30% with peep of 5. becomes SOB when reposition or is lay flat, remain tolerating tube feeding at 45ml/hr through NG-tube, Saenz remains draining large volumes of urine, patient is on restraint for attempting to reach towards ET-tube when assessing arms range of motion,
--- NOTE | 2019-02-08 19:39 | NUR ---
HAND-OFF: Report given to GENNY Charles. Dr. Zuniga at the bedside and made aware of patient neck lump, ordered to have a carotid duplex done to rule out a blood clot, patient remains in fentanyl at 160mcg/hr running through picc line on the left upper arm, .
--- NOTE | 2019-02-08 20:00 | NUR ---
NURSE NOTES: Patient received from Johny ROYAL. Patient currently is sedated RASS -2. Fentanyl gtt currently running at 160mcg via PICC line. Patient ventilated ett 8/25cm AC 16/500/30%/5. Spo2 100%. Vital AF 1.2 at 45ml/hr. Patient has INOCENCIA PICC double lumen. NAD at this time, VSS.
--- NOTE | 2019-02-08 20:30 | NUR ---
NURSE NOTES: Patient had diarrhea BM. Patient cleaned and was repositioned. Oral care given. PICC line dressing changed. Vitals remains stable. HR is 54 SB asymptomatic.
--- NOTE | 2019-02-08 20:39 | Cardiology Progress Note ---
Assessment/Plan Assessment/Plan 1. Cardiopulmonary arrest due to anoxia, 2D echo reveals normal LVEF. 2. Non-STEMI, conservative management in face of DNR. 3. Moderate aortic regurgitation. 4. Acute respiratory failure, intubated, failed weaning process. 5. Hypernatremia, better with hypotonic fluids. 6. Aspiration pneumonia, worsening of leukocytosis. Subjective Subjective Sinus rhythm at rate of 67. Intubated with FiO2 of 30%. Awake, following commands. Objective Last 24 Hour Vital Signs Date Time Temp Pulse Resp B/P (MAP) Pulse Ox O2 Delivery O2 Flow Rate FiO2 02/08/19 19:08 67 16 100 Mechanical Ventilator 30 57 16 30 02/08/19 19:00 16 Mechanical Ventilator 30 02/08/19 18:30 70 16 157/56 (89) 100 02/08/19 18:00 16 Mechanical Ventilator 30 02/08/19 18:00 83 19 142/65 (90) 100 02/08/19 17:30 51 16 112/60 (77) 100 02/08/19 17:00 17 Mechanical Ventilator 30 02/08/19 17:00 97.6 62 16 132/49 (76) 100 02/08/19 16:53 53 16 30 02/08/19 16:30 55 17 161/56 (91) 100 02/08/19 16:00 62 16 151/62 (91) 100 02/08/19 16:00 Mechanical Ventilator 02/08/19 16:00 18 Mechanical Ventilator 02/08/19 16:00 30 02/08/19 15:40 59 02/08/19 15:30 51 16 128/70 (89) 100 02/08/19 15:29 56 16 100 Mechanical Ventilator 30 02/08/19 15:19 56 16 100 Mechanical Ventilator 30 02/08/19 15:18 55 16 30 02/08/19 15:00 51 17 112/75 (87) 100 02/08/19 15:00 19 Mechanical Ventilator 30 02/08/19 14:30 56 16 104/63 (77) 100 02/08/19 14:00 19 Mechanical Ventilator 30 02/08/19 14:00 59 15 114/65 (81) 100 02/08/19 13:30 60 19 131/59 (83) 100 02/08/19 13:00 16 Mechanical Ventilator 30 02/08/19 13:00 59 17 120/58 (78) 100 02/08/19 12:45 62 16 30 02/08/19 12:30 66 16 152/60 (90) 100 02/08/19 12:30 16 Mechanical Ventilator 30 02/08/19 12:15 14 Mechanical Ventilator 30 02/08/19 12:00 Mechanical Ventilator 02/08/19 12:00 16 Mechanical Ventilator 30 02/08/19 12:00 30 02/08/19 12:00 97.9 77 15 161/98 (119) 100 02/08/19 11:30 59 16 140/78 (98) 100 02/08/19 11:30 58 16 30 02/08/19 11:26 53 02/08/19 11:00 58 16 105/55 (72) 100 02/08/19 11:00 18 Mechanical Ventilator 30 02/08/19 10:30 58 15 112/59 (76) 100 02/08/19 10:00 16 Mechanical Ventilator 30 02/08/19 10:00 55 15 120/58 (78) 100 02/08/19 09:30 62 16 108/41 (63) 100 02/08/19 09:15 75 16 173/51 (91) 100 02/08/19 09:15 158/61 02/08/19 09:00 30 02/08/19 09:00 79 18 187/91 (123) 100 02/08/19 09:00 100 02/08/19 09:00 16 Mechanical Ventilator 30 02/08/19 09:00 79 16 30 02/08/19 08:55 61 15 30 02/08/19 08:30 57 9 117/59 (78) 100 02/08/19 08:00 Mechanical Ventilator 02/08/19 08:00 16 Mechanical Ventilator 30 02/08/19 08:00 97.0 62 15 144/71 (95) 100 02/08/19 07:37 61 02/08/19 07:30 57 12 136/59 (84) 100 02/08/19 07:00 61 16 158/61 (93) 100 02/08/19 07:00 16 Mechanical Ventilator 30 02/08/19 06:57 57 17 30 02/08/19 06:30 61 16 142/60 (87) 100 02/08/19 06:00 16 Mechanical Ventilator 30 02/08/19 06:00 62 16 141/61 (87) 100 02/08/19 05:30 56 16 141/61 (87) 100 02/08/19 05:12 58 16 30 02/08/19 05:00 62 12 119/62 (81) 100 02/08/19 05:00 16 Mechanical Ventilator 30 02/08/19 04:30 59 13 143/66 (91) 100 02/08/19 04:29 16 Mechanical Ventilator 30 02/08/19 04:00 16 Mechanical Ventilator 30 02/08/19 04:00 62 02/08/19 04:00 97.9 69 17 169/75 (106) 100 02/08/19 04:00 Mechanical Ventilator 02/08/19 04:00 30 02/08/19 03:30 67 16 163/68 (99) 100 02/08/19 03:00 69 16 152/68 (96) 100 02/08/19 02:53 61 16 30 02/08/19 02:30 72 17 157/52 (87) 100 02/08/19 02:00 85 18 148/87 (107) 100 02/08/19 02:00 16 Mechanical Ventilator 30 02/08/19 01:30 45 16 158/75 (102) 100 02/08/19 01:22 65 16 30 02/08/19 01:00 16 Mechanical Ventilator 30 02/08/19 01:00 16 Mechanical Ventilator 30 02/08/19 01:00 59 16 84/53 (63) 100 02/08/19 00:30 42 16 72/49 (57) 100 02/08/19 00:00 Mechanical Ventilator 02/08/19 00:00 98.6 66 16 88/52 (64) 100 02/08/19 00:00 16 Mechanical Ventilator 30 02/08/19 00:00 30 02/08/19 00:00 53 02/07/19 23:30 72 16 130/77 (94) 100 02/07/19 23:20 65 16 30 02/07/19 23:00 16 Mechanical Ventilator 30 02/07/19 23:00 71 16 165/83 (110) 100 02/07/19 22:30 61 14 146/67 (93) 100 02/07/19 22:00 61 16 148/59 (88) 100 02/07/19 22:00 16 Mechanical Ventilator 30 02/07/19 21:45 82 16 30 8/22/19 21:30 73 14 150/53 (85) 100 02/07/19 21:00 Mechanical Ventilator 30 02/07/19 21:00 62 20 162/83 (109) 100 Intake and Output 02/07/19 02/08/19 19:00 07:00 Intake Total 1730.44032 ml 854 ml Output Total 1645 ml 760 ml Balance 85.83887 ml 94 ml IV Total 1295.70487 ml 494 ml Tube Feeding 405 ml 360 ml Other 30 ml Output Urine Total 1645 ml 760 ml # Bowel Movements 1 2D Echo: LVEF 55%, moderate AR Laboratory Tests Test 02/08/19 09:50 02/08/19 13:20 Vancomycin Level Trough 10.8 ug/mL (5.0-12.0) White Blood Count 17.3 K/UL (4.8-10.8) H Red Blood Count 3.20 M/UL (4.70-6.10) L Hemoglobin 9.6 G/DL (14.2-18.0) L Hematocrit 30.4 % (42.0-52.0) L Mean Corpuscular Volume 95 FL (80-99) Mean Corpuscular Hemoglobin 29.9 PG (27.0-31.0) Mean Corpuscular Hemoglobin Concent 31.5 G/DL (32.0-36.0) L Red Cell Distribution Width 14.6 % (11.6-14.8) Platelet Count 100 K/UL (150-450) L Mean Platelet Volume 7.5 FL (6.5-10.1) Neutrophils (%) (Auto) % (45.0-75.0) Lymphocytes (%) (Auto) % (20.0-45.0) Monocytes (%) (Auto) % (1.0-10.0) Eosinophils (%) (Auto) % (0.0-3.0) Basophils (%) (Auto) % (0.0-2.0) Differential Total Cells Counted 100 Neutrophils % (Manual) 93 % (45-75) H Lymphocytes % (Manual) 4 % (20-45) L Monocytes % (Manual) 3 % (1-10) Eosinophils % (Manual) 0 % (0-3) Basophils % (Manual) 0 % (0-2) Band Neutrophils 0 % (0-8) Platelet Estimate Decreased L Platelet Morphology Normal Hypochromasia 1+ Anisocytosis 1+ Sodium Level 143 MMOL/L (136-145) Potassium Level 2.4 MMOL/L (3.5-5.1) *L Chloride Level 112 MMOL/L (98-107) H Carbon Dioxide Level 27 MMOL/L (21-32) Anion Gap 4 mmol/L (5-15) L Blood Urea Nitrogen 16 mg/dL (7-18) Creatinine 0.5 MG/DL (0.55-1.30) L Estimat Glomerular Filtration Rate mL/min (>60) Glucose Level 162 MG/DL (74-106) H Calcium Level 5.9 MG/DL (8.5-10.1) *L Phosphorus Level 2.1 MG/DL (2.5-4.9) L Magnesium Level 1.1 MG/DL (1.8-2.4) L Microbiology Date/Time Source Procedure Growth Status 02/06/19 20:35 Blood Blood Culture - Preliminary NO GROWTH AFTER 24 HOURS Resulted 02/06/19 20:25 Blood Blood Culture - Preliminary NO GROWTH AFTER 24 HOURS Resulted 02/07/19 12:00 Sputum Gram Stain - Final Resulted 02/07/19 12:00 Sputum Sputum Culture - Preliminary NO GROWTH AFTER 24 HOURS Resulted Objective HEENT: Atraumatic, arousable, orally intubated, conjunctival pallor. NECK: Cannot assess JVD, no carotid bruit. LUNGS: Bilateral breath sounds. Few rhonchi. No wheezing. CARDIAC: Regular rhythm and rate. Normal S1 and S2. No murmurs, gallops or rubs. ABDOMEN: Soft, non-distended, + BS. EXTREMITIES: No edema, clubbing or cyanosis. Lv Zuniga MD Feb 08, 2019 20:39
[2019-02-08] MEDS: Miralax 17gm pkt NG SCH (20:43)
[2019-02-08] MEDS: Vancomycin 750mg/NS 275ml IVPB SCH ×2 (20:43)
[2019-02-08] MEDS: Dyna-Hex 2% Top Sol 2oz TOPIC SCH (20:43)
--- NOTE | 2019-02-08 21:41 | Pulmonolgy Critical Care Note ---
Critical Care - Asmt/Plan Assessment/Plan: Pulmonary Critical Care Progress Note HPI Patient is a 73 year olf man with previous history of COPD, CHF, HTN, DM admitted with extreme respiratory distress, intubated in the ED, subsequent Cardiac Arrest. Noted to have hypercapneic respiratory failure. Interactive today, improved ventilator requirements, tolerated PS8 for 2 hours today, improving mental status Increased WCC - RIJ lne DC CT Head negative Allergies: No Known Allergies Past Medical History: COPD/Asthma, CHF, Hypertension, DM All Other Systems: limited Physical Exam Vital signs noted General Appearance: sedated on ventilator Head: normocephalic, atraumatic Eyes: bilateral eye PERRL, bilateral eye EOMI ENT: moist mm, no LN Neck: supple Respiratory: generally reduced BS, occasional wheeze Cardiovascular: tachycardia, HS1, HS2, RRR Gastrointestinal: non tender, soft Musculoskeletal: normal inspection Neurologic: sedated on ventilator Skin: no rash, palpation normal Impression: COPD exacerbation Hypercapneic respiratory failure S/p cardiac arrest in the ED CHF HTN Diabetes Plan Wean as tolerated Adjust FIO2 for sats 90-94% HHN Q4 IV Solumedrol - reduce Sedation PRN Sz management Monitor labs PPX Antibiotics per ID DNR status Labs noted Chest X-Ray: No consolidation, no effusion, ETT tube 7cm, PICC line good position Critical Care - Objective Last 24 Hour Vital Signs Date Time Temp Pulse Resp B/P (MAP) Pulse Ox O2 Delivery O2 Flow Rate FiO2 02/08/19 21:00 54 0 141/61 (87) 100 02/08/19 20:44 16 Mechanical Ventilator 30 02/08/19 20:30 58 8 131/66 (87) 100 02/08/19 20:00 30 02/08/19 20:00 Mechanical Ventilator 02/08/19 20:00 16 Mechanical Ventilator 30 02/08/19 20:00 99.3 70 19 136/57 (83) 100 02/08/19 20:00 54 02/08/19 19:30 81 15 163/87 (112) 100 02/08/19 19:08 67 16 100 Mechanical Ventilator 30 57 16 30 02/08/19 19:00 53 17 138/65 (89) 100 02/08/19 19:00 16 Mechanical Ventilator 30 02/08/19 18:30 70 16 157/56 (89) 100 02/08/19 18:00 16 Mechanical Ventilator 30 02/08/19 18:00 83 19 142/65 (90) 100 02/08/19 17:30 51 16 112/60 (77) 100 02/08/19 17:00 17 Mechanical Ventilator 30 02/08/19 17:00 97.6 62 16 132/49 (76) 100 02/08/19 16:53 53 16 30 02/08/19 16:30 55 17 161/56 (91) 100 02/08/19 16:00 62 16 151/62 (91) 100 02/08/19 16:00 Mechanical Ventilator 02/08/19 16:00 18 Mechanical Ventilator 02/08/19 16:00 30 02/08/19 15:40 59 02/08/19 15:30 51 16 128/70 (89) 100 02/08/19 15:29 56 16 100 Mechanical Ventilator 30 02/08/19 15:19 56 16 100 Mechanical Ventilator 30 02/08/19 15:18 55 16 30 02/08/19 15:00 51 17 112/75 (87) 100 02/08/19 15:00 19 Mechanical Ventilator 30 02/08/19 14:30 56 16 104/63 (77) 100 02/08/19 14:00 19 Mechanical Ventilator 30 02/08/19 14:00 59 15 114/65 (81) 100 02/08/19 13:30 60 19 131/59 (83) 100 02/08/19 13:00 16 Mechanical Ventilator 30 02/08/19 13:00 59 17 120/58 (78) 100 02/08/19 12:45 62 16 30 02/08/19 12:30 66 16 152/60 (90) 100 02/08/19 12:30 16 Mechanical Ventilator 30 02/08/19 12:15 14 Mechanical Ventilator 30 02/08/19 12:00 Mechanical Ventilator 02/08/19 12:00 16 Mechanical Ventilator 30 02/08/19 12:00 30 02/08/19 12:00 97.9 77 15 161/98 (119) 100 02/08/19 11:30 59 16 140/78 (98) 100 02/08/19 11:30 58 16 30 02/08/19 11:26 53 02/08/19 11:00 58 16 105/55 (72) 100 02/08/19 11:00 18 Mechanical Ventilator 30 02/08/19 10:30 58 15 112/59 (76) 100 02/08/19 10:00 16 Mechanical Ventilator 30 02/08/19 10:00 55 15 120/58 (78) 100 02/08/19 09:30 62 16 108/41 (63) 100 02/08/19 09:15 75 16 173/51 (91) 100 02/08/19 09:15 158/61 02/08/19 09:00 30 02/08/19 09:00 79 18 187/91 (123) 100 02/08/19 09:00 100 02/08/19 09:00 16 Mechanical Ventilator 30 02/08/19 09:00 79 16 30 02/08/19 08:55 61 15 30 02/08/19 08:30 57 9 117/59 (78) 100 02/08/19 08:00 Mechanical Ventilator 02/08/19 08:00 16 Mechanical Ventilator 30 02/08/19 08:00 97.0 62 15 144/71 (95) 100 02/08/19 07:37 61 02/08/19 07:30 57 12 136/59 (84) 100 02/08/19 07:00 61 16 158/61 (93) 100 02/08/19 07:00 16 Mechanical Ventilator 30 02/08/19 06:57 57 17 30 02/08/19 06:30 61 16 142/60 (87) 100 02/08/19 06:00 16 Mechanical Ventilator 30 02/08/19 06:00 62 16 141/61 (87) 100 02/08/19 05:30 56 16 141/61 (87) 100 02/08/19 05:12 58 16 30 02/08/19 05:00 62 12 119/62 (81) 100 02/08/19 05:00 16 Mechanical Ventilator 30 02/08/19 04:30 59 13 143/66 (91) 100 02/08/19 04:29 16 Mechanical Ventilator 30 02/08/19 04:00 16 Mechanical Ventilator 30 02/08/19 04:00 62 02/08/19 04:00 97.9 69 17 169/75 (106) 100 02/08/19 04:00 Mechanical Ventilator 02/08/19 04:00 30 02/08/19 03:30 67 16 163/68 (99) 100 02/08/19 03:00 69 16 152/68 (96) 100 02/08/19 02:53 61 16 30 02/08/19 02:30 72 17 157/52 (87) 100 02/08/19 02:00 85 18 148/87 (107) 100 02/08/19 02:00 16 Mechanical Ventilator 30 02/08/19 01:30 45 16 158/75 (102) 100 02/08/19 01:22 65 16 30 02/08/19 01:00 16 Mechanical Ventilator 30 02/08/19 01:00 16 Mechanical Ventilator 30 02/08/19 01:00 59 16 84/53 (63) 100 02/08/19 00:30 42 16 72/49 (57) 100 02/08/19 00:00 Mechanical Ventilator 02/08/19 00:00 98.6 66 16 88/52 (64) 100 02/08/19 00:00 16 Mechanical Ventilator 30 02/08/19 00:00 30 02/08/19 00:00 53 02/07/19 23:30 72 16 130/77 (94) 100 02/07/19 23:20 65 16 30 02/07/19 23:00 16 Mechanical Ventilator 30 02/07/19 23:00 71 16 165/83 (110) 100 02/07/19 22:30 61 14 146/67 (93) 100 02/07/19 22:00 61 16 148/59 (88) 100 02/07/19 22:00 16 Mechanical Ventilator 30 02/07/19 21:45 82 16 30 Micro: Microbiology Date/Time Source Procedure Growth Status 02/06/19 20:35 Blood Blood Culture - Preliminary NO GROWTH AFTER 24 HOURS Resulted 02/06/19 20:25 Blood Blood Culture - Preliminary NO GROWTH AFTER 24 HOURS Resulted 02/07/19 12:00 Sputum Gram Stain - Final Resulted 02/07/19 12:00 Sputum Sputum Culture - Preliminary NO GROWTH AFTER 24 HOURS Resulted Accucheck: 138 Critical Care - Subjective FI02: 30 Vent Support Breath Rate: 16 Vent Support Mode: AC Vent Tidal Volume: 500 Sputum Amount: Moderate PEEP: 5.0 PIP: 24 Tube Feeding Amount: 45 I&O: Intake and Output 02/07/19 02/08/19 19:00 07:00 Intake Total 1730.03452 ml 854 ml Output Total 1645 ml 760 ml Balance 85.52181 ml 94 ml IV Total 1295.94902 ml 494 ml Tube Feeding 405 ml 360 ml Other 30 ml Output Urine Total 1645 ml 760 ml # Bowel Movements 1 ET-Tube: 8.0 ET Position: 25 Johny White MD Feb 08, 2019 21:41
--- NOTE | 2019-02-08 22:00 | NUR ---
NURSE NOTES: Patient repositioned. Blood drawn from patient and sent to lab. HR goes susana at times but asymptomatic. Patient repositioned. Patient is agitated and restless at time, therapeutic communication given.
[2019-02-08 22:58] LABS: HEMATOCRIT 30.5 % (42.0-52.0); HEMOGLOBIN 9.7 G/DL (14.2-18.0); MEAN CORPUSCULAR VOLUME 94 FL (80-99); PLATELET COUNT 107 K/UL (150-450); RED BLOOD COUNT 3.24 M/UL (4.70-6.10); RED CELL DISTRIBUTION WIDTH 14.4 % (11.6-14.8)
[2019-02-08 23:23] LABS: ANION GAP 0 mmol/L (5-15); BLOOD UREA NITROGEN 22 mg/dL (7-18); CALCIUM 8.2 MG/DL (8.5-10.1); CARBON DIOXIDE 36 MMOL/L (21-32); CHLORIDE 103 MMOL/L (98-107); CREATININE 0.8 MG/DL (0.55-1.30); PHOSPHORUS 3.4 MG/DL (2.5-4.9); POTASSIUM 4.2 MMOL/L (3.5-5.1); SODIUM 139 MMOL/L (136-145)
[2019-02-09] VITALS (49 sets, daily range): BP systolic 100–170; BP diastolic 45–108
--- NOTE | 2019-02-09 | NUR ---
NURSE NOTES: Patient repositioned and given oral care. Released restraints for passive range of motion and then placed restraints back on. 100ml water flush given. Afebrile. BP stable, HR in the 40s asymptomatic Sinus Jm.
--- NOTE | 2019-02-09 02:00 | NUR ---
NURSE NOTES: Patient restless and agitated at times. Repositioned and made comfortable. Deep suction provided. Oral care performed. Making good urine output. Still Sinus Jm but asymptomatic. Blood pressure is stable with bradycardia
[2019-02-09] MEDS: Vancomycin 750mg/NS 275ml IVPB SCH ×6 (03:11→20:26)
[2019-02-09] MEDS: Albuterol/Ipratropium 3ml neb HHN SCH ×6 (03:16→23:17)
--- NOTE | 2019-02-09 04:00 | NUR ---
NURSE NOTES: Patient still restless and agitated. Oral care given. HR is 77 SR. BP is 120/63. Released restraints for passive range of motion then put back restraints. No other new changes at this time, will continue to monitor.
[2019-02-09] MEDS: Meropenem 1 GM in NS 55 ML IVPB SCH ×3 (05:24→21:31)
[2019-02-09] MEDS: NovoLOG Insulin Flexpen SUBQ SCH ×4 (05:45→18:29)
--- NOTE | 2019-02-09 06:00 | NUR ---
NURSE NOTES: Fentanyl is off for now for morning weaning. Patient is awake and calm at this time. BP is 126/47, HR is 48 SB asymptomatic. Patient has been making good urine output. Glucose this morning was 93, no coverage needed. Patient was repositioned. Will continue to monitor.
[2019-02-09 06:14] LABS: HEMATOCRIT 29.7 % (42.0-52.0); HEMOGLOBIN 9.4 G/DL (14.2-18.0); MEAN CORPUSCULAR VOLUME 95 FL (80-99); PLATELET COUNT 102 K/UL (150-450); RED BLOOD COUNT 3.11 M/UL (4.70-6.10); RED CELL DISTRIBUTION WIDTH 14.7 % (11.6-14.8); WHITE BLOOD COUNT 16.5 K/UL (4.8-10.8)
--- NOTE | 2019-02-09 06:30 | NUR ---
NURSE NOTES: Dr Graham at bedside. Dr. Graham wants weaning with pressure support of 8 and cuff test. ABG 1 hour after wean.
--- NOTE | 2019-02-09 07:00 | NUR ---
HAND-OFF: Report given to Johny ROYAL.
[2019-02-09 07:19] LABS: ANION GAP 2 mmol/L (5-15); BLOOD UREA NITROGEN 22 mg/dL (7-18); CALCIUM 8.2 MG/DL (8.5-10.1); CARBON DIOXIDE 36 MMOL/L (21-32); CHLORIDE 104 MMOL/L (98-107); CREATININE 0.8 MG/DL (0.55-1.30); PHOSPHORUS 3.4 MG/DL (2.5-4.9); SODIUM 142 MMOL/L (136-145)
[2019-02-09] MEDS: DOPamine 400mg/250ml 250 ML IV SCH (09:15)
--- NOTE | 2019-02-09 09:15 | NUR ---
NURSE NOTES: Patient observed to be thrashing around his bed specifically with his legs. Pt was currently being weaned on the vent and Fent was being HELD. RT was called, pt was found to be tachypneic, diaphoretic yet responsive to questions. RT put patient back on the vent with FIO2 50% with the intention to wean back down to original vent settings of 30% when able. Fent was also restarted at 100 mcgs @ 0845 however after 15 min 0900 it was then titrated to 125 mcgs because patient was still having difficulty and RASS was +2. implementation lead stayed in the room with the pt until patient returned to baseline. Pt was at a RASS of -1. Patient was able to open eyes spontaneously, respond to questions and when asked if he was feeling better, he nodded his head Yes and was drowsy but calm. Pt's RR returned to RR 16 to 17 and maintained his volumes and was not in any acute respiratory distress. VS BP 119/61 HR 57 RR 17. Safety measures are in place with BL restraints secured, pulses are palpable, bed locked in the lowest position, bed is alarmed. Primary RN was notified.
--- NOTE | 2019-02-09 09:15 | NUR ---
NURSE NOTES: Dr. White aware of termination of weaning trail on setting of CPAP with PS of 8, patient became SOB and distress, returned to AC 16, TV: 600 FIO2 at 50% with peep of 5. ordered to have patient weaning again in AM the following morning,
[2019-02-09] MEDS: Solu-MEDROL 40mg Inj IVP SCH ×2 (09:22→20:27)
[2019-02-09] MEDS: Enoxaparin 40mg Inj SUBQ SCH (09:22)
[2019-02-09] MEDS: Pantoprazole Inj IVP SCH ×2 (09:22→20:27)
[2019-02-09] MEDS: Docusate 100mg tablet NG SCH ×2 (09:23→18:28)
--- NOTE | 2019-02-09 12:45 | NUR ---
NURSE NOTES: Dr. hall updated and assessed patient at the bedside, no verbal orders given at this time.
--- NOTE | 2019-02-09 13:21 | Infectious Diseases Prog Note ---
Assessment/Plan Problems: (1) Aspiration pneumonia Assessment & Plan: with thick secretion , due to pseudomonas spp, continue meropenem empirically for now pending final sputum culture . repeated CXR no new infiltrates , aspiration precaution (2) Leukocytosis Assessment & Plan: rule out sepsis, await repeated blood culture x2 , continue meropenem and vancomycin empirically pending cultures . IJ line was removed (3) Acute exacerbation of chronic obstructive pulmonary disease (COPD) Assessment & Plan: S/P doxycycline , on steroids and nebulizer treatment as per pulmonary (4) Cardiac arrest Assessment & Plan: etiology ? cardiology eval to rule out cardiac sources and neurology eval to evaluate his brain condition and to rule out anoxic brain injury (5) Chronic hypercapnic respiratory failure Assessment & Plan: S/P cardiac arrest , S/P intubation, monitor in ICU, failing weaning trials so far , pulmonary is following Subjective ROS Limited/Unobtainable: Yes Allergies: Coded Allergies: No Known Allergies (Unverified , 06/05/18) Subjective He is still intubated on mechanical ventilation, awake and responsive to verbal commands , still failing weaning trials , has low grade fever Objective Vital Signs Last 24 Hour Vital Signs Date Time Temp Pulse Resp B/P (MAP) Pulse Ox O2 Delivery O2 Flow Rate FiO2 02/09/19 12:00 98.1 62 16 119/68 (85) 100 02/09/19 12:00 Mechanical Ventilator 02/09/19 11:48 71 16 100 Mechanical Ventilator 30 71 16 30 02/09/19 11:30 81 22 170/93 (118) 100 02/09/19 11:00 51 16 158/88 (111) 100 02/09/19 10:30 50 16 105/75 (85) 100 02/09/19 10:00 54 16 117/65 (82) 100 02/09/19 09:30 55 18 119/61 (80) 100 02/09/19 09:06 96 02/09/19 09:00 66 19 126/59 (81) 100 02/09/19 08:44 63 20 100 Mechanical Ventilator 30 74 11 30 02/09/19 08:30 50 02/09/19 08:30 75 14 144/67 (92) 99 02/09/19 08:00 30 02/09/19 08:00 Mechanical Ventilator 02/09/19 08:00 56 02/09/19 08:00 98.9 72 15 146/57 (86) 99 02/09/19 07:30 55 15 120/54 (76) 100 02/09/19 07:00 70 16 132/53 (79) 100 02/09/19 06:46 51 16 100 Mechanical Ventilator 30 74 11 30 30 02/09/19 06:30 49 16 126/47 (73) 100 02/09/19 06:00 47 16 113/51 (71) 100 02/09/19 05:30 49 16 112/48 (69) 100 02/09/19 05:15 52 16 30 02/09/19 05:00 16 Mechanical Ventilator 30 02/09/19 05:00 50 13 126/56 (79) 100 02/09/19 04:30 51 16 115/55 (75) 100 02/09/19 04:00 30 02/09/19 04:00 54 02/09/19 04:00 16 Mechanical Ventilator 30 02/09/19 04:00 Mechanical Ventilator 02/09/19 04:00 99.6 48 16 120/55 (76) 100 02/09/19 03:30 47 16 110/56 (74) 100 02/09/19 03:17 51 16 100 Mechanical Ventilator 30 56 16 30 02/09/19 03:00 53 16 118/51 (73) 100 02/09/19 03:00 16 Mechanical Ventilator 30 02/09/19 02:30 75 24 141/58 (85) 100 02/09/19 02:00 52 15 130/61 (84) 100 02/09/19 02:00 16 Mechanical Ventilator 30 02/09/19 01:30 51 16 111/63 (79) 100 02/09/19 01:00 16 Mechanical Ventilator 30 02/09/19 01:00 58 16 136/70 (92) 100 02/09/19 00:35 61 17 30 02/09/19 00:30 48 16 129/108 (115) 100 02/09/19 00:00 Mechanical Ventilator 02/09/19 00:00 48 02/09/19 00:00 98.3 45 16 108/52 (70) 100 02/09/19 00:00 16 Mechanical Ventilator 30 02/09/19 00:00 30 02/08/19 23:36 58 18 98 Mechanical Ventilator 30 56 18 30 02/08/19 23:30 46 16 101/60 (74) 100 02/08/19 23:00 42 16 101/46 (64) 100 02/08/19 23:00 16 Mechanical Ventilator 30 02/08/19 22:30 51 16 118/50 (72) 100 02/08/19 22:00 16 Mechanical Ventilator 30 02/08/19 22:00 45 17 153/121 (132) 100 02/08/19 21:30 50 16 152/52 (85) 100 02/08/19 21:15 71 18 30 02/08/19 21:00 54 0 141/61 (87) 100 02/08/19 21:00 16 Mechanical Ventilator 30 02/08/19 20:44 16 Mechanical Ventilator 30 02/08/19 20:30 58 8 131/66 (87) 100 02/08/19 20:00 30 02/08/19 20:00 Mechanical Ventilator 02/08/19 20:00 16 Mechanical Ventilator 30 02/08/19 20:00 99.3 70 19 136/57 (83) 100 02/08/19 20:00 54 02/08/19 19:30 81 15 163/87 (112) 100 02/08/19 19:08 67 20 100 Mechanical Ventilator 30 02/08/19 19:08 67 16 100 Mechanical Ventilator 30 57 16 30 02/08/19 19:00 53 17 138/65 (89) 100 02/08/19 19:00 16 Mechanical Ventilator 30 02/08/19 18:30 70 16 157/56 (89) 100 02/08/19 18:00 16 Mechanical Ventilator 30 02/08/19 18:00 83 19 142/65 (90) 100 02/08/19 17:30 51 16 112/60 (77) 100 02/08/19 17:00 17 Mechanical Ventilator 30 02/08/19 17:00 97.6 62 16 132/49 (76) 100 02/08/19 16:53 53 16 30 02/08/19 16:30 55 17 161/56 (91) 100 02/08/19 16:00 62 16 151/62 (91) 100 02/08/19 16:00 Mechanical Ventilator 02/08/19 16:00 18 Mechanical Ventilator 02/08/19 16:00 30 02/08/19 15:40 59 02/08/19 15:30 51 16 128/70 (89) 100 02/08/19 15:29 56 16 100 Mechanical Ventilator 30 02/08/19 15:19 56 16 100 Mechanical Ventilator 30 02/08/19 15:18 55 16 30 02/08/19 15:00 51 17 112/75 (87) 100 02/08/19 15:00 19 Mechanical Ventilator 30 02/08/19 14:30 56 16 104/63 (77) 100 02/08/19 14:00 19 Mechanical Ventilator 30 02/08/19 14:00 59 15 114/65 (81) 100 02/08/19 13:30 60 19 131/59 (83) 100 Height (Feet): 5 Height (Inches): 10.00 Weight (Pounds): 172 General Appearance: WD/WN, no acute distress HEENT: normocephalic, atraumatic, anicteric, mucous membranes moist, EOMI, pharynx normal, supple Respiratory/Chest: chest wall non-tender, lungs clear, normal breath sounds, no respiratory distress, no accessory muscle use Cardiovascular: normal peripheral pulses, normal rate, regular rhythm, no gallop/murmur, no JVD Abdomen: normal bowel sounds, soft, non tender, no organomegaly, non distended , no mass, no scars Extremities: no cyanosis, no clubbing Skin: no rash, no lesions, no ulcers Neurologic/Psychiatric: alert, responsive Lymphatic: no neck adenopathy, no groin adenopathy Musculoskeletal: normal muscle bulk, no effusion Microbiology Date/Time Source Procedure Growth Status 02/06/19 20:35 Blood Blood Culture - Preliminary NO GROWTH AFTER 48 HOURS Resulted 02/06/19 20:25 Blood Blood Culture - Preliminary NO GROWTH AFTER 48 HOURS Resulted 02/07/19 12:00 Sputum Gram Stain - Final Resulted 02/07/19 12:00 Sputum Culture - Preliminary Pseudomonas Species Resulted Laboratory Tests Test 02/08/19 13:20 02/08/19 22:00 02/09/19 04:00 02/09/19 07:59 White Blood Count 17.3 K/UL (4.8-10.8) H 18.0 K/UL (4.8-10.8) H 16.5 K/UL (4.8-10.8) H Red Blood Count 3.20 M/UL (4.70-6.10) L 3.24 M/UL (4.70-6.10) L 3.11 M/UL (4.70-6.10) L Hemoglobin 9.6 G/DL (14.2-18.0) L 9.7 G/DL (14.2-18.0) L 9.4 G/DL (14.2-18.0) L Hematocrit 30.4 % (42.0-52.0) L 30.5 % (42.0-52.0) L 29.7 % (42.0-52.0) L Mean Corpuscular Volume 95 FL (80-99) 94 FL (80-99) 95 FL (80-99) Mean Corpuscular Hemoglobin 29.9 PG (27.0-31.0) 30.0 PG (27.0-31.0) 30.3 PG (27.0-31.0) Mean Corpuscular Hemoglobin Concent 31.5 G/DL (32.0-36.0) L 31.9 G/DL (32.0-36.0) L 31.7 G/DL (32.0-36.0) L Red Cell Distribution Width 14.6 % (11.6-14.8) 14.4 % (11.6-14.8) 14.7 % (11.6-14.8) Platelet Count 100 K/UL (150-450) L 107 K/UL (150-450) L 102 K/UL (150-450) L Mean Platelet Volume 7.5 FL (6.5-10.1) 8.5 FL (6.5-10.1) 7.6 FL (6.5-10.1) Neutrophils (%) (Auto) % (45.0-75.0) % (45.0-75.0) % (45.0-75.0) Lymphocytes (%) (Auto) % (20.0-45.0) % (20.0-45.0) % (20.0-45.0) Monocytes (%) (Auto) % (1.0-10.0) % (1.0-10.0) % (1.0-10.0) Eosinophils (%) (Auto) % (0.0-3.0) % (0.0-3.0) % (0.0-3.0) Basophils (%) (Auto) % (0.0-2.0) % (0.0-2.0) % (0.0-2.0) Differential Total Cells Counted 100 100 Neutrophils % (Manual) 93 % (45-75) H 88 % (45-75) H Lymphocytes % (Manual) 4 % (20-45) L 3 % (20-45) L Monocytes % (Manual) 3 % (1-10) 6 % (1-10) Eosinophils % (Manual) 0 % (0-3) 0 % (0-3) Basophils % (Manual) 0 % (0-2) 0 % (0-2) Band Neutrophils 0 % (0-8) 3 % (0-8) Platelet Estimate Decreased L Decreased L Platelet Morphology Normal Normal Hypochromasia 1+ 1+ Anisocytosis 1+ 1+ Sodium Level 143 MMOL/L (136-145) 139 MMOL/L (136-145) 142 MMOL/L (136-145) Potassium Level 2.4 MMOL/L (3.5-5.1) *L 4.2 MMOL/L (3.5-5.1) # 4.0 MMOL/L (3.5-5.1) Chloride Level 112 MMOL/L (98-107) H 103 MMOL/L (98-107) 104 MMOL/L (98-107) Carbon Dioxide Level 27 MMOL/L (21-32) 36 MMOL/L (21-32) H 36 MMOL/L (21-32) H Anion Gap 4 mmol/L (5-15) L 0 mmol/L (5-15) L 2 mmol/L (5-15) L Blood Urea Nitrogen 16 mg/dL (7-18) 22 mg/dL (7-18) H 22 mg/dL (7-18) H Creatinine 0.5 MG/DL (0.55-1.30) L 0.8 MG/DL (0.55-1.30) # 0.8 MG/DL (0.55-1.30) Estimat Glomerular Filtration Rate mL/min (>60) mL/min (>60) mL/min (>60) Glucose Level 162 MG/DL (74-106) H 117 MG/DL (74-106) H 82 MG/DL (74-106) Calcium Level 5.9 MG/DL (8.5-10.1) *L 8.2 MG/DL (8.5-10.1) #L 8.2 MG/DL (8.5-10.1) L Phosphorus Level 2.1 MG/DL (2.5-4.9) L 3.4 MG/DL (2.5-4.9) 3.4 MG/DL (2.5-4.9) Magnesium Level 1.1 MG/DL (1.8-2.4) L 2.3 MG/DL (1.8-2.4) 2.2 MG/DL (1.8-2.4) Arterial Blood pH 7.401 (7.350-7.450) Arterial Blood Partial Pressure CO2 61.9 mmHg (35.0-45.0) *H Arterial Blood Partial Pressure O2 45.3 mmHg (75.0-100.0) Arterial Blood HCO3 37.6 mmol/L (22.0-26.0) H Arterial Blood Oxygen Saturation 36.8 % (95-100) *L Arterial Blood Base Excess 10.9 (-2-2) *H Delon Test Positive Test 02/09/19 10:50 Vancomycin Level Trough 15.0 ug/mL (5.0-12.0) H Current Medications Medications (Trade) Dose Ordered Sig/Brittani Route PRN Reason Start Time Stop Time Status Last Admin Dose Admin Acetaminophen (Tylenol) 650 mg Q4H PRN NG FOR MILD PAIN 01/26/19 10:15 02/25/19 10:14 Albuterol/ Ipratropium (Albuterol/ Ipratropium) 3 ml Q4HRT HHN 02/08/19 15:00 02/13/19 14:59 02/09/19 11:58 Chlorhexidine Gluconate (Renetta-Hex 2%) 1 applic DAILY@1999 TOPIC 02/07/19 20:00 03/09/19 19:59 02/08/19 20:43 Dextrose (Dextrose 50%) 25 ml Q30M PRN IV Hypoglycemia 01/26/19 10:30 02/25/19 10:29 Dextrose (Dextrose 50%) 50 ml Q30M PRN IV Hypoglycemia 01/26/19 10:30 02/25/19 10:29 Docusate Sodium (Colace) 100 mg BID NG 02/02/19 18:00 03/04/19 17:59 02/09/19 09:23 Dopamine HCl/ Dextrose 250 ml @ 0 mls/hr Q24H IV 02/06/19 09:15 03/08/19 09:14 Enoxaparin Sodium (Lovenox) 40 mg DAILY SUBQ 01/31/19 09:00 03/02/19 08:59 02/09/19 09:22 Fentanyl Citrate 2500 mcg/Sodium Chloride 250 ml @ 0 mls/hr Q24H IV 02/02/19 12:00 02/16/19 11:59 02/08/19 20:44 Hydralazine HCl (Apresoline) 25 mg Q6H PRN NG For High Blood Pressure 02/07/19 17:15 03/06/19 16:59 Insulin Aspart (NovoLOG) Q6HR SUBQ 01/26/19 12:00 02/25/19 11:59 02/09/19 12:58 Meropenem 1 gm/ Sodium Chloride 55 ml @ 110 mls/hr Q8HR IVPB 02/06/19 22:00 02/11/19 21:59 02/09/19 05:24 Methylprednisolone Sodium Succinate (Solu-MEDROL) 40 mg EVERY 12 HOURS IVP 02/07/19 21:00 03/09/19 20:59 02/09/19 09:22 Pantoprazole (Protonix) 40 mg Q12HR IVP 02/03/19 21:00 02/25/19 10:59 02/09/19 09:22 Polyethylene Glycol (Miralax) 17 gm BEDTIME NG 02/07/19 21:00 03/03/19 20:59 02/08/19 20:43 Vancomycin HCl (Vanco rx to dose) 1 ea DAILY PRN MISC Per rx protocol 02/06/19 20:00 03/08/19 19:59 Vancomycin HCl 750 mg/Sodium Chloride 275 ml @ 183.333 mls/hr Q8HR@0400,1200,2000 IVPB 02/08/19 20:00 02/13/19 19:59 02/09/19 12:53 [place] Orlando M.D. Feb 09, 2019 13:20
[2019-02-09] MEDS: fentaNYL Citrate 2,500 MCG in NS 200 ML IV SCH (13:40)
--- NOTE | 2019-02-09 14:22 | Pulmonolgy Critical Care Note ---
Critical Care - Asmt/Plan Assessment/Plan: Pulmonary Critical Care Progress Note HPI Patient is a 73 year olf man with previous history of COPD, CHF, HTN, DM admitted with extreme respiratory distress, intubated in the ED, subsequent Cardiac Arrest. Noted to have hypercapneic respiratory failure. Interactive today, improved ventilator requirements, tolerated PS8 for < 1 hour today, improving mental status, per patient and family does not want trach Increased WCC - RIJ lne DC CT Head negative Allergies: No Known Allergies Past Medical History: COPD/Asthma, CHF, Hypertension, DM All Other Systems: limited Physical Exam Vital signs noted General Appearance: sedated on ventilator Head: normocephalic, atraumatic Eyes: bilateral eye PERRL, bilateral eye EOMI ENT: moist mm, no LN Neck: supple Respiratory: generally reduced BS, occasional wheeze Cardiovascular: tachycardia, HS1, HS2, RRR Gastrointestinal: non tender, soft Musculoskeletal: normal inspection Neurologic: sedated on ventilator Skin: no rash, palpation normal Impression: COPD exacerbation Hypercapneic respiratory failure S/p cardiac arrest in the ED CHF HTN Diabetes Plan Wean as tolerated Adjust FIO2 for sats 90-94% HHN Q4 IV Solumedrol - reduce Sedation PRN Sz management Monitor labs PPX Antibiotics per ID DNR status Labs noted Chest X-Ray: No consolidation, no effusion, ETT tube 7cm, PICC line good position Critical Care - Objective Last 24 Hour Vital Signs Date Time Temp Pulse Resp B/P (MAP) Pulse Ox O2 Delivery O2 Flow Rate FiO2 02/09/19 13:40 18 Mechanical Ventilator 50 02/09/19 13:16 59 16 30 02/09/19 12:00 98.1 62 16 119/68 (85) 100 02/09/19 12:00 Mechanical Ventilator 02/09/19 11:48 71 16 100 Mechanical Ventilator 30 71 16 30 02/09/19 11:30 81 22 170/93 (118) 100 02/09/19 11:00 51 16 158/88 (111) 100 02/09/19 10:30 50 16 105/75 (85) 100 02/09/19 10:00 54 16 117/65 (82) 100 02/09/19 09:30 55 18 119/61 (80) 100 02/09/19 09:06 96 02/09/19 09:00 66 19 126/59 (81) 100 02/09/19 08:44 63 20 100 Mechanical Ventilator 30 74 11 30 02/09/19 08:30 50 02/09/19 08:30 75 14 144/67 (92) 99 02/09/19 08:00 30 02/09/19 08:00 Mechanical Ventilator 02/09/19 08:00 56 02/09/19 08:00 98.9 72 15 146/57 (86) 99 02/09/19 07:30 55 15 120/54 (76) 100 02/09/19 07:00 70 16 132/53 (79) 100 02/09/19 06:46 51 16 100 Mechanical Ventilator 30 74 11 30 30 02/09/19 06:30 49 16 126/47 (73) 100 02/09/19 06:00 47 16 113/51 (71) 100 02/09/19 05:30 49 16 112/48 (69) 100 02/09/19 05:15 52 16 30 02/09/19 05:00 16 Mechanical Ventilator 30 02/09/19 05:00 50 13 126/56 (79) 100 02/09/19 04:30 51 16 115/55 (75) 100 02/09/19 04:00 30 02/09/19 04:00 54 02/09/19 04:00 16 Mechanical Ventilator 02/09/19 04:00 Mechanical Ventilator 02/09/19 04:00 99.6 48 16 120/55 (76) 100 02/09/19 03:30 47 16 110/56 (74) 100 02/09/19 03:17 51 16 100 Mechanical Ventilator 30 56 16 30 02/09/19 03:00 53 16 118/51 (73) 100 02/09/19 03:00 16 Mechanical Ventilator 30 02/09/19 02:30 75 24 141/58 (85) 100 02/09/19 02:00 52 15 130/61 (84) 100 02/09/19 02:00 16 Mechanical Ventilator 30 02/09/19 01:30 51 16 111/63 (79) 100 02/09/19 01:00 16 Mechanical Ventilator 30 02/09/19 01:00 58 16 136/70 (92) 100 02/09/19 00:35 61 17 30 02/09/19 00:30 48 16 129/108 (115) 100 02/09/19 00:00 Mechanical Ventilator 02/09/19 00:00 48 02/09/19 00:00 98.3 45 16 108/52 (70) 100 02/09/19 00:00 16 Mechanical Ventilator 30 02/09/19 00:00 30 02/08/19 23:36 58 18 98 Mechanical Ventilator 30 56 18 30 02/08/19 23:30 46 16 101/60 (74) 100 02/08/19 23:00 42 16 101/46 (64) 100 02/08/19 23:00 16 Mechanical Ventilator 30 02/08/19 22:30 51 16 118/50 (72) 100 02/08/19 22:00 16 Mechanical Ventilator 30 02/08/19 22:00 45 17 153/121 (132) 100 02/08/19 21:30 50 16 152/52 (85) 100 02/08/19 21:15 71 18 30 02/08/19 21:00 54 0 141/61 (87) 100 02/08/19 21:00 16 Mechanical Ventilator 30 02/08/19 20:44 16 Mechanical Ventilator 30 02/08/19 20:30 58 8 131/66 (87) 100 02/08/19 20:00 30 02/08/19 20:00 Mechanical Ventilator 02/08/19 20:00 16 Mechanical Ventilator 30 02/08/19 20:00 99.3 70 19 136/57 (83) 100 02/08/19 20:00 54 02/08/19 19:30 81 15 163/87 (112) 100 02/08/19 19:08 67 20 100 Mechanical Ventilator 30 02/08/19 19:08 67 16 100 Mechanical Ventilator 30 57 16 30 02/08/19 19:00 53 17 138/65 (89) 100 02/08/19 19:00 16 Mechanical Ventilator 30 02/08/19 18:30 70 16 157/56 (89) 100 02/08/19 18:00 16 Mechanical Ventilator 30 02/08/19 18:00 83 19 142/65 (90) 100 02/08/19 17:30 51 16 112/60 (77) 100 02/08/19 17:00 17 Mechanical Ventilator 30 02/08/19 17:00 97.6 62 16 132/49 (76) 100 02/08/19 16:53 53 16 30 02/08/19 16:30 55 17 161/56 (91) 100 02/08/19 16:00 62 16 151/62 (91) 100 02/08/19 16:00 Mechanical Ventilator 02/08/19 16:00 18 Mechanical Ventilator 02/08/19 16:00 30 02/08/19 15:40 59 02/08/19 15:30 51 16 128/70 (89) 100 02/08/19 15:29 56 16 100 Mechanical Ventilator 30 02/08/19 15:19 56 16 100 Mechanical Ventilator 30 02/08/19 15:18 55 16 30 02/08/19 15:00 51 17 112/75 (87) 100 02/08/19 15:00 19 Mechanical Ventilator 30 02/08/19 14:30 56 16 104/63 (77) 100 Micro: Microbiology Date/Time Source Procedure Growth Status 02/06/19 20:35 Blood Blood Culture - Preliminary NO GROWTH AFTER 48 HOURS Resulted 02/06/19 20:25 Blood Blood Culture - Preliminary NO GROWTH AFTER 48 HOURS Resulted 02/07/19 12:00 Sputum Gram Stain - Final Resulted 02/07/19 12:00 Sputum Culture - Preliminary Pseudomonas Species Resulted Accucheck: 112 Critical Care - Subjective FI02: 50 Vent Support Breath Rate: 16 Vent Support Mode: AC Vent Tidal Volume: 500 Sputum Amount: Moderate PEEP: 5.0 PIP: 30 Tube Feeding Amount: 45 I&O: Intake and Output 02/08/19 02/09/19 18:59 06:59 Intake Total 1245.932 ml 1753 ml Output Total 1195 ml 785 ml Balance 50.932 ml 968 ml Intake Free Water 200 ml IV Total 840.932 ml 1058 ml Tube Feeding 405 ml 495 ml Output Urine Total 1195 ml 785 ml # Bowel Movements 1 ET-Tube: 8.0 ET Position: 25 Johny White MD Feb 09, 2019 14:22
--- NOTE | 2019-02-09 15:10 | NUR ---
NURSE NOTES: Dr. Henry spoke with son paula regarding a tracheostomy placement, son is leaning towards trach placement, at this time he will consults family to make final decision, no verbal orders given at this time.
--- NOTE | 2019-02-09 15:18 | General Progress Note ---
Assessment/Plan Status: stable Assessment/Plan: s: Intubated. Vent setting reviewed O: Easily arousal, Not following the command, The son at the bed side PHYSICAL EXAMINATION: GENERAL: An elderly male, lying in bed, intubated on mechanical ventilation, not in acute distress. HEENT: Normocephalic and atraumatic. Pupils slightly responsive to light. Unable to assess oral mucosa with E-tube in place. NECK: Supple. No lymphadenopathy. CARDIOVASCULAR: He is tachycardic. S1, S2 normal. No murmur can be heard. LUNGS: Diminished breathing sounds at the bases. No wheezing or rhonchi. Normal breathing effort. Mechanically ventilated. ABDOMEN: Soft, nontender, and nondistended. Normal bowel sounds. No hepatosplenomegaly or ascites. No organomegaly. EXTREMITIES: No edema or cyanosis. labs: dated Feb 08 reviewed Meds: reviewed and reconciled ASSESSMENT AND PLAN: 1. Vent dependent respiratory failure. 2. Sepsis- Gram negative HCA PNA. Stable 3. Chronic obstructive pulmonary disease, end-stage, oxygen-dependent. 3. Cardiopulmonary arrest, status post resuscitation x2. 4. Hypertension. 5. Abnormal blood sugar. 6. Anemia. 7. Abn Trop: likely secondary to #3 7. GI and DVT prophylaxis. PLAN OF CARE: I had a detailed cnv with the Son Agreed and requested Trach Will notify surgeon and pulmonary Subjective Allergies: Coded Allergies: No Known Allergies (Unverified , 06/05/18) Objective Last 24 Hour Vital Signs Date Time Temp Pulse Resp B/P (MAP) Pulse Ox O2 Delivery O2 Flow Rate FiO2 02/09/19 15:09 48 16 100 Mechanical Ventilator 30 53 17 30 02/09/19 13:40 18 Mechanical Ventilator 50 02/09/19 13:16 59 16 30 02/09/19 12:00 98.1 62 16 119/68 (85) 100 02/09/19 12:00 Mechanical Ventilator 02/09/19 11:48 71 16 100 Mechanical Ventilator 30 71 16 30 02/09/19 11:30 81 22 170/93 (118) 100 02/09/19 11:00 51 16 158/88 (111) 100 02/09/19 10:30 50 16 105/75 (85) 100 02/09/19 10:00 54 16 117/65 (82) 100 02/09/19 09:30 55 18 119/61 (80) 100 02/09/19 09:06 96 02/09/19 09:00 66 19 126/59 (81) 100 02/09/19 08:44 63 20 100 Mechanical Ventilator 30 74 11 30 02/09/19 08:30 50 02/09/19 08:30 75 14 144/67 (92) 99 02/09/19 08:00 30 02/09/19 08:00 Mechanical Ventilator 02/09/19 08:00 56 02/09/19 08:00 98.9 72 15 146/57 (86) 99 02/09/19 07:30 55 15 120/54 (76) 100 02/09/19 07:00 70 16 132/53 (79) 100 02/09/19 06:46 51 16 100 Mechanical Ventilator 30 74 11 30 30 02/09/19 06:30 49 16 126/47 (73) 100 02/09/19 06:00 47 16 113/51 (71) 100 02/09/19 05:30 49 16 112/48 (69) 100 02/09/19 05:15 52 16 30 02/09/19 05:00 16 Mechanical Ventilator 30 02/09/19 05:00 50 13 126/56 (79) 100 02/09/19 04:30 51 16 115/55 (75) 100 02/09/19 04:00 30 02/09/19 04:00 54 02/09/19 04:00 16 Mechanical Ventilator 30 02/09/19 04:00 Mechanical Ventilator 02/09/19 04:00 99.6 48 16 120/55 (76) 100 02/09/19 03:30 47 16 110/56 (74) 100 02/09/19 03:17 51 16 100 Mechanical Ventilator 30 56 16 30 02/09/19 03:00 53 16 118/51 (73) 100 02/09/19 03:00 16 Mechanical Ventilator 30 02/09/19 02:30 75 24 141/58 (85) 100 02/09/19 02:00 52 15 130/61 (84) 100 02/09/19 02:00 16 Mechanical Ventilator 30 02/09/19 01:30 51 16 111/63 (79) 100 02/09/19 01:00 16 Mechanical Ventilator 30 02/09/19 01:00 58 16 136/70 (92) 100 02/09/19 00:35 61 17 30 02/09/19 00:30 48 16 129/108 (115) 100 02/09/19 00:00 Mechanical Ventilator 02/09/19 00:00 48 02/09/19 00:00 98.3 45 16 108/52 (70) 100 02/09/19 00:00 16 Mechanical Ventilator 30 02/09/19 00:00 30 02/08/19 23:36 58 18 98 Mechanical Ventilator 30 56 18 30 02/08/19 23:30 46 16 101/60 (74) 100 02/08/19 23:00 42 16 101/46 (64) 100 02/08/19 23:00 16 Mechanical Ventilator 30 02/08/19 22:30 51 16 118/50 (72) 100 02/08/19 22:00 16 Mechanical Ventilator 30 02/08/19 22:00 45 17 153/121 (132) 100 02/08/19 21:30 50 16 152/52 (85) 100 02/08/19 21:15 71 18 30 02/08/19 21:00 54 0 141/61 (87) 100 02/08/19 21:00 16 Mechanical Ventilator 30 02/08/19 20:44 16 Mechanical Ventilator 30 02/08/19 20:30 58 8 131/66 (87) 100 02/08/19 20:00 30 02/08/19 20:00 Mechanical Ventilator 02/08/19 20:00 16 Mechanical Ventilator 30 02/08/19 20:00 99.3 70 19 136/57 (83) 100 02/08/19 20:00 54 02/08/19 19:30 81 15 163/87 (112) 100 02/08/19 19:08 67 20 100 Mechanical Ventilator 30 02/08/19 19:08 67 16 100 Mechanical Ventilator 30 57 16 30 02/08/19 19:00 53 17 138/65 (89) 100 02/08/19 19:00 16 Mechanical Ventilator 30 02/08/19 18:30 70 16 157/56 (89) 100 02/08/19 18:00 16 Mechanical Ventilator 30 02/08/19 18:00 83 19 142/65 (90) 100 02/08/19 17:30 51 16 112/60 (77) 100 02/08/19 17:00 17 Mechanical Ventilator 30 02/08/19 17:00 97.6 62 16 132/49 (76) 100 02/08/19 16:53 53 16 30 02/08/19 16:30 55 17 161/56 (91) 100 02/08/19 16:00 62 16 151/62 (91) 100 02/08/19 16:00 Mechanical Ventilator 02/08/19 16:00 18 Mechanical Ventilator 02/08/19 16:00 30 02/08/19 15:40 59 02/08/19 15:30 51 16 128/70 (89) 100 02/08/19 15:29 56 16 100 Mechanical Ventilator 30 02/08/19 15:19 56 16 100 Mechanical Ventilator 30 02/08/19 15:18 55 16 30 Intake and Output 02/08/19 02/09/19 18:59 06:59 Intake Total 1245.932 ml 1753 ml Output Total 1195 ml 785 ml Balance 50.932 ml 968 ml Intake Free Water 200 ml IV Total 840.932 ml 1058 ml Tube Feeding 405 ml 495 ml Output Urine Total 1195 ml 785 ml # Bowel Movements 1 Laboratory Tests 02/08/19 22:00: White Blood Count 18.0H, Red Blood Count 3.24L, Hemoglobin 9.7L, Hematocrit 30.5L, Mean Corpuscular Volume 94, Mean Corpuscular Hemoglobin 30.0, Mean Corpuscular Hemoglobin Concent 31.9L, Red Cell Distribution Width 14.4, Platelet Count 107L, Mean Platelet Volume 8.5, Neutrophils (%) (Auto) , Lymphocytes (%) (Auto) , Monocytes (%) (Auto) , Eosinophils (%) (Auto) , Basophils (%) (Auto) , Sodium Level 139, Potassium Level 4.2#, Chloride Level 103, Carbon Dioxide Level 36H, Anion Gap 0L, Blood Urea Nitrogen 22H, Creatinine 0.8#, Estimat Glomerular Filtration Rate , Glucose Level 117H, Calcium Level 8.2#L, Phosphorus Level 3.4, Magnesium Level 2.3 02/09/19 04:00: White Blood Count 16.5H, Red Blood Count 3.11L, Hemoglobin 9.4L, Hematocrit 29.7L, Mean Corpuscular Volume 95, Mean Corpuscular Hemoglobin 30.3, Mean Corpuscular Hemoglobin Concent 31.7L, Red Cell Distribution Width 14.7, Platelet Count 102L, Mean Platelet Volume 7.6, Neutrophils (%) (Auto) , Lymphocytes (%) (Auto) , Monocytes (%) (Auto) , Eosinophils (%) (Auto) , Basophils (%) (Auto) , Sodium Level 142, Potassium Level 4.0, Chloride Level 104 , Carbon Dioxide Level 36H, Anion Gap 2L, Blood Urea Nitrogen 22H, Creatinine 0.8, Estimat Glomerular Filtration Rate , Glucose Level 82, Calcium Level 8.2L, Phosphorus Level 3.4, Magnesium Level 2.2, Differential Total Cells Counted 100 , Neutrophils % (Manual) 88H, Lymphocytes % (Manual) 3L, Monocytes % (Manual) 6 , Eosinophils % (Manual) 0, Basophils % (Manual) 0, Band Neutrophils 3, Platelet Estimate DecreasedL, Platelet Morphology Normal, Hypochromasia 1+, Anisocytosis 1+ 02/09/19 07:59: Arterial Blood pH 7.401, Arterial Blood Partial Pressure CO2 61.9*H, Arterial Blood Partial Pressure O2 45.3*L, Arterial Blood HCO3 37.6H, Arterial Blood Oxygen Saturation 36.8*L, Arterial Blood Base Excess 10.9*H, Delon Test Positive 02/09/19 10:50: Vancomycin Level Trough 15.0H Height (Feet): 5 Height (Inches): 10.00 Weight (Pounds): 172 Brianne Henry MD Feb 09, 2019 15:18
--- NOTE | 2019-02-09 15:23 | Nephrology Progress Note ---
Assessment/Plan Problem List: (1) Cardiac arrest (2) Prerenal azotemia (3) Hypernatremia (4) Hypoalbuminemia (5) HTN (hypertension) Assessment Pre renal Azotemia due to - Dehydration- - High Protein catabolic state as result of Doxy and steroids HyperNatremia due to free water deficit HypoAlbuminemia Plan Sugg: keep bp in check stop D5W IV fluid Avoid Nephrotoxics Monitor lytes per consultants Subjective ROS Limited/Unobtainable: Yes Objective Objective Last 24 Hour Vital Signs Date Time Temp Pulse Resp B/P (MAP) Pulse Ox O2 Delivery O2 Flow Rate FiO2 02/09/19 15:09 48 16 100 Mechanical Ventilator 30 53 17 30 02/09/19 13:40 18 Mechanical Ventilator 50 02/09/19 13:16 59 16 30 02/09/19 12:00 98.1 62 16 119/68 (85) 100 02/09/19 12:00 Mechanical Ventilator 02/09/19 11:48 71 16 100 Mechanical Ventilator 30 71 16 30 02/09/19 11:30 81 22 170/93 (118) 100 02/09/19 11:00 51 16 158/88 (111) 100 02/09/19 10:30 50 16 105/75 (85) 100 02/09/19 10:00 54 16 117/65 (82) 100 02/09/19 09:30 55 18 119/61 (80) 100 02/09/19 09:06 96 02/09/19 09:00 66 19 126/59 (81) 100 02/09/19 08:44 63 20 100 Mechanical Ventilator 30 74 11 30 02/09/19 08:30 50 02/09/19 08:30 75 14 144/67 (92) 99 02/09/19 08:00 30 02/09/19 08:00 Mechanical Ventilator 02/09/19 08:00 56 02/09/19 08:00 98.9 72 15 146/57 (86) 99 02/09/19 07:30 55 15 120/54 (76) 100 02/09/19 07:00 70 16 132/53 (79) 100 02/09/19 06:46 51 16 100 Mechanical Ventilator 30 74 11 30 30 02/09/19 06:30 49 16 126/47 (73) 100 02/09/19 06:00 47 16 113/51 (71) 100 02/09/19 05:30 49 16 112/48 (69) 100 02/09/19 05:15 52 16 30 02/09/19 05:00 16 Mechanical Ventilator 30 02/09/19 05:00 50 13 126/56 (79) 100 02/09/19 04:30 51 16 115/55 (75) 100 02/09/19 04:00 30 02/09/19 04:00 54 02/09/19 04:00 16 Mechanical Ventilator 30 02/09/19 04:00 Mechanical Ventilator 02/09/19 04:00 99.6 48 16 120/55 (76) 100 02/09/19 03:30 47 16 110/56 (74) 100 02/09/19 03:17 51 16 100 Mechanical Ventilator 30 56 16 30 02/09/19 03:00 53 16 118/51 (73) 100 02/09/19 03:00 16 Mechanical Ventilator 30 02/09/19 02:30 75 24 141/58 (85) 100 02/09/19 02:00 52 15 130/61 (84) 100 02/09/19 02:00 16 Mechanical Ventilator 30 02/09/19 01:30 51 16 111/63 (79) 100 02/09/19 01:00 16 Mechanical Ventilator 30 02/09/19 01:00 58 16 136/70 (92) 100 02/09/19 00:35 61 17 30 02/09/19 00:30 48 16 129/108 (115) 100 02/09/19 00:00 Mechanical Ventilator 02/09/19 00:00 48 02/09/19 00:00 98.3 45 16 108/52 (70) 100 02/09/19 00:00 16 Mechanical Ventilator 30 02/09/19 00:00 30 02/08/19 23:36 58 18 98 Mechanical Ventilator 30 56 18 30 02/08/19 23:30 46 16 101/60 (74) 100 02/08/19 23:00 42 16 101/46 (64) 100 02/08/19 23:00 16 Mechanical Ventilator 30 02/08/19 22:30 51 16 118/50 (72) 100 02/08/19 22:00 16 Mechanical Ventilator 30 02/08/19 22:00 45 17 153/121 (132) 100 02/08/19 21:30 50 16 152/52 (85) 100 02/08/19 21:15 71 18 30 02/08/19 21:00 54 0 141/61 (87) 100 02/08/19 21:00 16 Mechanical Ventilator 30 02/08/19 20:44 16 Mechanical Ventilator 30 02/08/19 20:30 58 8 131/66 (87) 100 02/08/19 20:00 30 02/08/19 20:00 Mechanical Ventilator 02/08/19 20:00 16 Mechanical Ventilator 30 02/08/19 20:00 99.3 70 19 136/57 (83) 100 02/08/19 20:00 54 02/08/19 19:30 81 15 163/87 (112) 100 02/08/19 19:08 67 20 100 Mechanical Ventilator 30 02/08/19 19:08 67 16 100 Mechanical Ventilator 30 57 16 30 02/08/19 19:00 53 17 138/65 (89) 100 02/08/19 19:00 16 Mechanical Ventilator 30 02/08/19 18:30 70 16 157/56 (89) 100 02/08/19 18:00 16 Mechanical Ventilator 30 02/08/19 18:00 83 19 142/65 (90) 100 02/08/19 17:30 51 16 112/60 (77) 100 02/08/19 17:00 17 Mechanical Ventilator 30 02/08/19 17:00 97.6 62 16 132/49 (76) 100 02/08/19 16:53 53 16 30 02/08/19 16:30 55 17 161/56 (91) 100 02/08/19 16:00 62 16 151/62 (91) 100 02/08/19 16:00 Mechanical Ventilator 02/08/19 16:00 18 Mechanical Ventilator 02/08/19 16:00 30 02/08/19 15:40 59 02/08/19 15:30 51 16 128/70 (89) 100 02/08/19 15:29 56 16 100 Mechanical Ventilator 30 Intake and Output 02/08/19 02/09/19 18:59 06:59 Intake Total 1245.932 ml 1753 ml Output Total 1195 ml 785 ml Balance 50.932 ml 968 ml Intake Free Water 200 ml IV Total 840.932 ml 1058 ml Tube Feeding 405 ml 495 ml Output Urine Total 1195 ml 785 ml # Bowel Movements 1 Laboratory Tests 02/08/19 22:00: White Blood Count 18.0H, Red Blood Count 3.24L, Hemoglobin 9.7L, Hematocrit 30.5L, Mean Corpuscular Volume 94, Mean Corpuscular Hemoglobin 30.0, Mean Corpuscular Hemoglobin Concent 31.9L, Red Cell Distribution Width 14.4, Platelet Count 107L, Mean Platelet Volume 8.5, Neutrophils (%) (Auto) , Lymphocytes (%) (Auto) , Monocytes (%) (Auto) , Eosinophils (%) (Auto) , Basophils (%) (Auto) , Sodium Level 139, Potassium Level 4.2#, Chloride Level 103, Carbon Dioxide Level 36H, Anion Gap 0L, Blood Urea Nitrogen 22H, Creatinine 0.8#, Estimat Glomerular Filtration Rate , Glucose Level 117H, Calcium Level 8.2#L, Phosphorus Level 3.4, Magnesium Level 2.3 02/09/19 04:00: White Blood Count 16.5H, Red Blood Count 3.11L, Hemoglobin 9.4L, Hematocrit 29.7L, Mean Corpuscular Volume 95, Mean Corpuscular Hemoglobin 30.3, Mean Corpuscular Hemoglobin Concent 31.7L, Red Cell Distribution Width 14.7, Platelet Count 102L, Mean Platelet Volume 7.6, Neutrophils (%) (Auto) , Lymphocytes (%) (Auto) , Monocytes (%) (Auto) , Eosinophils (%) (Auto) , Basophils (%) (Auto) , Sodium Level 142, Potassium Level 4.0, Chloride Level 104 , Carbon Dioxide Level 36H, Anion Gap 2L, Blood Urea Nitrogen 22H, Creatinine 0.8, Estimat Glomerular Filtration Rate , Glucose Level 82, Calcium Level 8.2L, Phosphorus Level 3.4, Magnesium Level 2.2, Differential Total Cells Counted 100 , Neutrophils % (Manual) 88H, Lymphocytes % (Manual) 3L, Monocytes % (Manual) 6 , Eosinophils % (Manual) 0, Basophils % (Manual) 0, Band Neutrophils 3, Platelet Estimate DecreasedL, Platelet Morphology Normal, Hypochromasia 1+, Anisocytosis 1+ 02/09/19 07:59: Arterial Blood pH 7.401, Arterial Blood Partial Pressure CO2 61.9*H, Arterial Blood Partial Pressure O2 45.3*L, Arterial Blood HCO3 37.6H, Arterial Blood Oxygen Saturation 36.8*L, Arterial Blood Base Excess 10.9*H, Delon Test Positive 02/09/19 10:50: Vancomycin Level Trough 15.0H Height (Feet): 5 Height (Inches): 10.00 Weight (Pounds): 172 General Appearance: no apparent distress EENT: other - vented Respiratory/Chest: decreased breath sounds Abdomen: distended Objective no change Felipe Salmon MD Feb 09, 2019 15:23
--- NOTE | 2019-02-09 15:42 | NUR ---
RESPIRATORY NOTE: Received pt on AC 16 VT 500 FIO2 30% PEEP of 5 with 8.0 ETT tube at 25 at the lip. Patient is awake alert and able to follow commands. Patient was weaned with CPAP PS 8 and tolerated for 2 hours. ABG was drawn on weaning trial. Patient was in agitated and in distress and switched back to AC. Charge nurse was aware. Weaning will continue tomorrow. Alarms are on and audible. Ambu bag at bedside and will continue to monitor.
[2019-02-09] MEDS ORDERED: NS 275ml ONE ×3 (16:19→17:46)
[2019-02-09] MEDS ORDERED: Tubing IV Secondary IV ONE ×3 (16:19→17:46)
[2019-02-09] MEDS ORDERED: NS 500ML ONE (16:19)
--- NOTE | 2019-02-09 16:38 | NUR ---
NURSE NOTES: Observed patient bedside. Difficult to arouse. Pt does open eyes however opens eyes and is unable to maintain. HR SB at 47. BP 102/60. Titrated Fent from 250 to 200 mcgs. Also called RT. FIO2 was titrated back to 30%. SPO2 remains at 100%. Pt is very drowsy. Will continue to monitor and report to Primary RN.
--- NOTE | 2019-02-09 16:43 | NUR ---
NURSE NOTES: TF - Vital AF 1.2 TF with tubing was changed. No residuals. Patient tolerated.
--- NOTE | 2019-02-09 17:15 | NUR ---
NURSE NOTES: Jesús mitchell spoke with family and is possibly wanting to have a tracheostomy placed, remains on fentanyl at 200mcg/hr.
[2019-02-09] MEDS ORDERED: 1/2 NS 1000ml IV ONE (17:40)
--- NOTE | 2019-02-09 19:10 | NUR ---
HAND-OFF: Report given to GENNY Cano patient remains on sedation fentanyl at 200mcg/hr and remains at rass scale of -2
--- NOTE | 2019-02-09 20:00 | NUR ---
NURSE NOTES: Patient received from Johny ROYAL. Patient currently is sedated RASS -2. Fentanyl gtt currently running at 300mcg via PICC line. Patient ventilated ett 8/25cm AC 16/500/30%/5. Spo2 100%. Vital AF 1.2 at 45ml/hr. Patient has INOCENCIA PICC double lumen. BP 123/56, HR 64 NSR, RR 16, Spo2 100%, Afebrile.
--- NOTE | 2019-02-09 20:15 | NUR ---
NURSE NOTES: Patient agitated and restless. Increased fentanyl to keep RASS at -2. Patients son at bedside also. Informed Son of plan of care for the night. Patients son informed me that he spoke with his father about possible tracheostomy when patient was off sedation and they may end up deciding to trach if weaning trials continue to fail, Attending MD also spoke to them about this possible plan.
[2019-02-09] MEDS: Miralax 17gm pkt NG SCH (20:26)
[2019-02-09] MEDS: Dyna-Hex 2% Top Sol 2oz TOPIC SCH (20:26)
--- NOTE | 2019-02-09 21:00 | NUR ---
NURSE NOTES: Dr. Pereira at bedside making rounds. Updated MD regarding patients current status. No new orders received at this time. Patient remains lightly sedated with RASS of -2.
--- NOTE | 2019-02-09 21:22 | Pulmonolgy Critical Care Note ---
Critical Care - Asmt/Plan Assessment/Plan: Impression: COPD exacerbation Hypercapneic respiratory failure S/p cardiac arrest in the ED CHF HTN Diabetes Plan Wean as tolerated Adjust FIO2 for sats 90-94% HHN Q4 IV Solumedrol Sedation PRN Sz management Monitor labs PPX Antibiotics per ID DNR status TRACH NEXT WEEK Respiratory: CXR, weaning trial Cardiac: stop pressors, continue to monitor HR/BP Renal: F/U I&O Gastrointestinal: continue feedings/current rate Endocrine: monitor blood sugar, check TSH Neurologic: PRN Ativan, PRN Morphine Prophylaxis: Protonix Disposition: keep in ICU Time Spent (Minutes): 50 Notes 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, 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 Discussed with: nurses Critical Care - Objective Last 24 Hour Vital Signs Date Time Temp Pulse Resp B/P (MAP) Pulse Ox O2 Delivery O2 Flow Rate FiO2 02/09/19 21:15 48 18 100 Mechanical Ventilator 30 64 18 30 02/09/19 20:30 56 16 108/56 (73) 100 02/09/19 20:15 59 16 113/57 (75) 75 02/09/19 20:00 99.4 73 16 123/56 (78) 100 02/09/19 20:00 30 02/09/19 20:00 16 Mechanical Ventilator 30 02/09/19 20:00 Mechanical Ventilator 02/09/19 20:00 52 02/09/19 19:30 87 15 140/105 (117) 100 02/09/19 19:08 73 17 100 Mechanical Ventilator 30 64 18 30 02/09/19 19:00 61 16 109/64 (79) 100 02/09/19 19:00 16 Mechanical Ventilator 30 02/09/19 18:30 60 16 134/74 (94) 100 02/09/19 18:00 62 16 104/66 (79) 100 02/09/19 17:30 63 16 102/52 (69) 100 02/09/19 17:26 48 16 30 02/09/19 17:00 49 16 109/57 (74) 100 02/09/19 16:30 48 16 100/54 (69) 100 02/09/19 16:00 47 02/09/19 16:00 Mechanical Ventilator 02/09/19 16:00 50 02/09/19 16:00 98.2 47 16 100/63 (75) 100 02/09/19 15:30 47 16 102/60 (74) 100 02/09/19 15:09 48 16 100 Mechanical Ventilator 30 53 17 30 02/09/19 15:00 53 16 101/50 (67) 100 02/09/19 14:30 52 16 109/56 (73) 100 02/09/19 14:00 56 16 106/75 (85) 100 02/09/19 13:40 18 Mechanical Ventilator 50 02/09/19 13:30 60 16 135/55 (81) 100 02/09/19 13:16 59 16 30 02/09/19 13:00 59 16 131/45 (73) 100 02/09/19 12:30 60 16 131/66 (87) 100 02/09/19 12:00 98.1 62 16 119/68 (85) 100 02/09/19 12:00 58 02/09/19 12:00 Mechanical Ventilator 02/09/19 11:48 71 16 100 Mechanical Ventilator 30 71 16 30 02/09/19 11:30 81 22 170/93 (118) 100 02/09/19 11:00 51 16 158/88 (111) 100 02/09/19 10:30 50 16 105/75 (85) 100 02/09/19 10:00 54 16 117/65 (82) 100 02/09/19 09:30 55 18 119/61 (80) 100 02/09/19 09:15 119/61 02/09/19 09:06 96 02/09/19 09:00 66 19 126/59 (81) 100 02/09/19 08:44 63 20 100 Mechanical Ventilator 30 74 11 30 02/09/19 08:30 50 02/09/19 08:30 75 14 144/67 (92) 99 02/09/19 08:00 30 02/09/19 08:00 Mechanical Ventilator 02/09/19 08:00 56 02/09/19 08:00 98.9 72 15 146/57 (86) 99 02/09/19 07:30 55 15 120/54 (76) 100 02/09/19 07:00 70 16 132/53 (79) 100 02/09/19 06:46 51 16 100 Mechanical Ventilator 30 74 11 30 30 02/09/19 06:30 49 16 126/47 (73) 100 02/09/19 06:00 47 16 113/51 (71) 100 02/09/19 05:30 49 16 112/48 (69) 100 02/09/19 05:15 52 16 30 02/09/19 05:00 16 Mechanical Ventilator 30 02/09/19 05:00 50 13 126/56 (79) 100 02/09/19 04:30 51 16 115/55 (75) 100 02/09/19 04:00 30 02/09/19 04:00 54 02/09/19 04:00 16 Mechanical Ventilator 30 02/09/19 04:00 Mechanical Ventilator 02/09/19 04:00 99.6 48 16 120/55 (76) 100 02/09/19 03:30 47 16 110/56 (74) 100 02/09/19 03:17 51 16 100 Mechanical Ventilator 30 56 16 30 02/09/19 03:00 53 16 118/51 (73) 100 02/09/19 03:00 16 Mechanical Ventilator 30 02/09/19 02:30 75 24 141/58 (85) 100 02/09/19 02:00 52 15 130/61 (84) 100 02/09/19 02:00 16 Mechanical Ventilator 30 02/09/19 01:30 51 16 111/63 (79) 100 02/09/19 01:00 16 Mechanical Ventilator 30 02/09/19 01:00 58 16 136/70 (92) 100 02/09/19 00:35 61 17 30 02/09/19 00:30 48 16 129/108 (115) 100 02/09/19 00:00 Mechanical Ventilator 02/09/19 00:00 48 02/09/19 00:00 98.3 45 16 108/52 (70) 100 02/09/19 00:00 16 Mechanical Ventilator 30 02/09/19 00:00 30 02/08/19 23:36 58 18 98 Mechanical Ventilator 30 56 18 30 02/08/19 23:30 46 16 101/60 (74) 100 02/08/19 23:00 42 16 101/46 (64) 100 02/08/19 23:00 16 Mechanical Ventilator 30 02/08/19 22:30 51 16 118/50 (72) 100 02/08/19 22:00 16 Mechanical Ventilator 30 02/08/19 22:00 45 17 153/121 (132) 100 02/08/19 21:30 50 16 152/52 (85) 100 Status: awake, other - AGITATED Condition: critical HEENT: atraumatic Lungs: rhonchi Heart: HR/BP stable Abdomen: soft, non-tender Extremities: edema Micro: Microbiology Date/Time Source Procedure Growth Status 02/07/19 12:00 Sputum Gram Stain - Final Resulted 02/07/19 12:00 Sputum Culture - Preliminary Pseudomonas Species Resulted Accucheck: 125 Critical Care - Subjective ROS Limited/Unobtainable: Yes FI02: 30 Vent Support Breath Rate: 16 Vent Support Mode: AC Vent Tidal Volume: 500 Sputum Amount: Small PEEP: 5.0 PIP: 29 Tube Feeding Amount: 45 I&O: Intake and Output 02/08/19 02/09/19 19:00 07:00 Intake Total 1451.932 ml 1542 ml Output Total 1195 ml 810 ml Balance 256.932 ml 732 ml Intake Free Water 100 ml 100 ml IV Total 901.932 ml 992 ml Tube Feeding 450 ml 450 ml Output Urine Total 1195 ml 810 ml # Bowel Movements 1 Subjective: AWAKE AGITATED NO DISTRESS FALED WANING AGAIN TODAY WILL TRY AGAIN TOMORROW NO REPORTS OF CP NV OR BLEEDING TF NO PRESSORS ET-Tube: 8.0 ET Position: 25 Labs: Current Medications Medications (Trade) Dose Ordered Sig/Brittani Route PRN Reason Start Time Stop Time Status Last Admin Dose Admin Acetaminophen (Tylenol) 650 mg Q4H PRN NG FOR MILD PAIN 01/26/19 10:15 02/25/19 10:14 Albuterol/ Ipratropium (Albuterol/ Ipratropium) 3 ml Q4HRT HHN 02/08/19 15:00 02/13/19 14:59 02/09/19 19:08 Chlorhexidine Gluconate (Renetta-Hex 2%) 1 applic DAILY@1999 TOPIC 02/07/19 20:00 03/09/19 19:59 02/09/19 20:26 Dextrose (Dextrose 50%) 25 ml Q30M PRN IV Hypoglycemia 01/26/19 10:30 02/25/19 10:29 Dextrose (Dextrose 50%) 50 ml Q30M PRN IV Hypoglycemia 01/26/19 10:30 02/25/19 10:29 Docusate Sodium (Colace) 100 mg BID NG 02/02/19 18:00 03/04/19 17:59 02/09/19 18:28 Dopamine HCl/ Dextrose 250 ml @ 0 mls/hr Q24H IV 02/06/19 09:15 03/08/19 09:14 Enoxaparin Sodium (Lovenox) 40 mg DAILY SUBQ 01/31/19 09:00 03/02/19 08:59 02/09/19 09:22 Fentanyl Citrate 2500 mcg/Sodium Chloride 250 ml @ 0 mls/hr Q24H IV 02/02/19 12:00 02/16/19 11:59 02/09/19 13:40 Hydralazine HCl (Apresoline) 25 mg Q6H PRN NG For High Blood Pressure 02/07/19 17:15 03/06/19 16:59 Insulin Aspart (NovoLOG) Q6HR SUBQ 01/26/19 12:00 02/25/19 11:59 02/09/19 18:29 Meropenem 1 gm/ Sodium Chloride 55 ml @ 110 mls/hr Q8HR IVPB 02/06/19 22:00 02/11/19 21:59 02/09/19 16:53 Methylprednisolone Sodium Succinate (Solu-MEDROL) 40 mg EVERY 12 HOURS IVP 02/07/19 21:00 03/09/19 20:59 02/09/19 20:27 Pantoprazole (Protonix) 40 mg Q12HR IVP 02/03/19 21:00 02/25/19 10:59 02/09/19 20:27 Polyethylene Glycol (Miralax) 17 gm BEDTIME NG 02/07/19 21:00 03/03/19 20:59 02/09/19 20:26 Vancomycin HCl (Vanco rx to dose) 1 ea DAILY PRN MISC Per rx protocol 02/06/19 20:00 03/08/19 19:59 Vancomycin HCl 750 mg/Sodium Chloride 275 ml @ 183.333 mls/hr Q8HR@0400,1200,2000 IVPB 02/08/19 20:00 02/13/19 19:59 02/09/19 20:26 Laboratory Tests Test 02/08/19 22:00 02/09/19 04:00 02/09/19 07:59 02/09/19 10:50 White Blood Count 18.0 K/UL (4.8-10.8) H 16.5 K/UL (4.8-10.8) H Red Blood Count 3.24 M/UL (4.70-6.10) L 3.11 M/UL (4.70-6.10) L Hemoglobin 9.7 G/DL (14.2-18.0) L 9.4 G/DL (14.2-18.0) L Hematocrit 30.5 % (42.0-52.0) L 29.7 % (42.0-52.0) L Mean Corpuscular Volume 94 FL (80-99) 95 FL (80-99) Mean Corpuscular Hemoglobin 30.0 PG (27.0-31.0) 30.3 PG (27.0-31.0) Mean Corpuscular Hemoglobin Concent 31.9 G/DL (32.0-36.0) L 31.7 G/DL (32.0-36.0) L Red Cell Distribution Width 14.4 % (11.6-14.8) 14.7 % (11.6-14.8) Platelet Count 107 K/UL (150-450) L 102 K/UL (150-450) L Mean Platelet Volume 8.5 FL (6.5-10.1) 7.6 FL (6.5-10.1) Neutrophils (%) (Auto) % (45.0-75.0) % (45.0-75.0) Lymphocytes (%) (Auto) % (20.0-45.0) % (20.0-45.0) Monocytes (%) (Auto) % (1.0-10.0) % (1.0-10.0) Eosinophils (%) (Auto) % (0.0-3.0) % (0.0-3.0) Basophils (%) (Auto) % (0.0-2.0) % (0.0-2.0) Sodium Level 139 MMOL/L (136-145) 142 MMOL/L (136-145) Potassium Level 4.2 MMOL/L (3.5-5.1) # 4.0 MMOL/L (3.5-5.1) Chloride Level 103 MMOL/L (98-107) 104 MMOL/L (98-107) Carbon Dioxide Level 36 MMOL/L (21-32) H 36 MMOL/L (21-32) H Anion Gap 0 mmol/L (5-15) L 2 mmol/L (5-15) L Blood Urea Nitrogen 22 mg/dL (7-18) H 22 mg/dL (7-18) H Creatinine 0.8 MG/DL (0.55-1.30) # 0.8 MG/DL (0.55-1.30) Estimat Glomerular Filtration Rate mL/min (>60) mL/min (>60) Glucose Level 117 MG/DL (74-106) H 82 MG/DL (74-106) Calcium Level 8.2 MG/DL (8.5-10.1) #L 8.2 MG/DL (8.5-10.1) L Phosphorus Level 3.4 MG/DL (2.5-4.9) 3.4 MG/DL (2.5-4.9) Magnesium Level 2.3 MG/DL (1.8-2.4) 2.2 MG/DL (1.8-2.4) Differential Total Cells Counted 100 Neutrophils % (Manual) 88 % (45-75) H Lymphocytes % (Manual) 3 % (20-45) L Monocytes % (Manual) 6 % (1-10) Eosinophils % (Manual) 0 % (0-3) Basophils % (Manual) 0 % (0-2) Band Neutrophils 3 % (0-8) Platelet Estimate Decreased L Platelet Morphology Normal Hypochromasia 1+ Anisocytosis 1+ Arterial Blood pH 7.401 (7.350-7.450) Arterial Blood Partial Pressure CO2 61.9 mmHg (35.0-45.0) *H Arterial Blood Partial Pressure O2 45.3 mmHg (75.0-100.0) Arterial Blood HCO3 37.6 mmol/L (22.0-26.0) H Arterial Blood Oxygen Saturation 36.8 % (95-100) *L Arterial Blood Base Excess 10.9 (-2-2) *H Delon Test Positive Vancomycin Level Trough 15.0 ug/mL (5.0-12.0) H Torie Pereira DO Feb 09, 2019 21:22
--- NOTE | 2019-02-09 21:50 | Cardiology Progress Note ---
Assessment/Plan Assessment/Plan 1. Cardiopulmonary arrest due to anoxia, 2D echo reveals normal LVEF. 2. Non-STEMI, conservative management in face of DNR. 3. Moderate aortic regurgitation. 4. Acute respiratory failure, intubated, failed weaning process. 5. Hypernatremia, better with hypotonic fluids. 6. Aspiration pneumonia, worsening of leukocytosis. Subjective Subjective Sinus rhythm at rate of 48. Intubated with FiO2 of 30%. Objective Last 24 Hour Vital Signs Date Time Temp Pulse Resp B/P (MAP) Pulse Ox O2 Delivery O2 Flow Rate FiO2 02/09/19 21:30 48 16 128/61 (83) 100 02/09/19 21:15 48 18 30 02/09/19 21:00 49 16 118/57 (77) 100 02/09/19 21:00 16 Mechanical Ventilator 30 02/09/19 20:30 56 16 108/56 (73) 100 02/09/19 20:15 59 16 113/57 (75) 75 02/09/19 20:00 99.4 73 16 123/56 (78) 100 02/09/19 20:00 30 02/09/19 20:00 16 Mechanical Ventilator 30 02/09/19 20:00 Mechanical Ventilator 02/09/19 20:00 52 02/09/19 19:30 87 15 140/105 (117) 100 02/09/19 19:08 73 17 100 Mechanical Ventilator 30 64 18 30 02/09/19 19:00 61 16 109/64 (79) 100 02/09/19 19:00 16 Mechanical Ventilator 30 02/09/19 18:30 60 16 134/74 (94) 100 02/09/19 18:00 62 16 104/66 (79) 100 02/09/19 17:30 63 16 102/52 (69) 100 02/09/19 17:26 48 16 30 02/09/19 17:00 49 16 109/57 (74) 100 02/09/19 16:30 48 16 100/54 (69) 100 02/09/19 16:00 47 02/09/19 16:00 Mechanical Ventilator 02/09/19 16:00 50 02/09/19 16:00 98.2 47 16 100/63 (75) 100 02/09/19 15:30 47 16 102/60 (74) 100 02/09/19 15:09 48 16 100 Mechanical Ventilator 30 53 17 30 02/09/19 15:00 53 16 101/50 (67) 100 02/09/19 14:30 52 16 109/56 (73) 100 02/09/19 14:00 56 16 106/75 (85) 100 02/09/19 13:40 18 Mechanical Ventilator 50 02/09/19 13:30 60 16 135/55 (81) 100 02/09/19 13:16 59 16 30 02/09/19 13:00 59 16 131/45 (73) 100 02/09/19 12:30 60 16 131/66 (87) 100 02/09/19 12:00 98.1 62 16 119/68 (85) 100 02/09/19 12:00 58 02/09/19 12:00 Mechanical Ventilator 02/09/19 11:48 71 16 100 Mechanical Ventilator 30 71 16 30 02/09/19 11:30 81 22 170/93 (118) 100 02/09/19 11:00 51 16 158/88 (111) 100 02/09/19 10:30 50 16 105/75 (85) 100 02/09/19 10:00 54 16 117/65 (82) 100 02/09/19 09:30 55 18 119/61 (80) 100 02/09/19 09:15 119/61 02/09/19 09:06 96 02/09/19 09:00 66 19 126/59 (81) 100 02/09/19 08:44 63 20 100 Mechanical Ventilator 30 74 11 30 02/09/19 08:30 50 02/09/19 08:30 75 14 144/67 (92) 99 02/09/19 08:00 30 02/09/19 08:00 Mechanical Ventilator 02/09/19 08:00 56 02/09/19 08:00 98.9 72 15 146/57 (86) 99 02/09/19 07:30 55 15 120/54 (76) 100 02/09/19 07:00 70 16 132/53 (79) 100 02/09/19 06:46 51 16 100 Mechanical Ventilator 30 74 11 30 30 02/09/19 06:30 49 16 126/47 (73) 100 02/09/19 06:00 47 16 113/51 (71) 100 02/09/19 05:30 49 16 112/48 (69) 100 02/09/19 05:15 52 16 30 02/09/19 05:00 16 Mechanical Ventilator 30 02/09/19 05:00 50 13 126/56 (79) 100 02/09/19 04:30 51 16 115/55 (75) 100 02/09/19 04:00 30 02/09/19 04:00 54 02/09/19 04:00 16 Mechanical Ventilator 30 02/09/19 04:00 Mechanical Ventilator 02/09/19 04:00 99.6 48 16 120/55 (76) 100 02/09/19 03:30 47 16 110/56 (74) 100 02/09/19 03:17 51 16 100 Mechanical Ventilator 30 56 16 30 02/09/19 03:00 53 16 118/51 (73) 100 02/09/19 03:00 16 Mechanical Ventilator 30 02/09/19 02:30 75 24 141/58 (85) 100 02/09/19 02:00 52 15 130/61 (84) 100 02/09/19 02:00 16 Mechanical Ventilator 30 02/09/19 01:30 51 16 111/63 (79) 100 02/09/19 01:00 16 Mechanical Ventilator 30 02/09/19 01:00 58 16 136/70 (92) 100 02/09/19 00:35 61 17 30 02/09/19 00:30 48 16 129/108 (115) 100 02/09/19 00:00 Mechanical Ventilator 02/09/19 00:00 48 02/09/19 00:00 98.3 45 16 108/52 (70) 100 02/09/19 00:00 16 Mechanical Ventilator 30 02/09/19 00:00 30 02/08/19 23:36 58 18 98 Mechanical Ventilator 30 56 18 30 02/08/19 23:30 46 16 101/60 (74) 100 02/08/19 23:00 42 16 101/46 (64) 100 02/08/19 23:00 16 Mechanical Ventilator 30 02/08/19 22:30 51 16 118/50 (72) 100 02/08/19 22:00 16 Mechanical Ventilator 30 02/08/19 22:00 45 17 153/121 (132) 100 Intake and Output 02/08/19 02/09/19 19:00 07:00 Intake Total 1451.932 ml 1542 ml Output Total 1195 ml 810 ml Balance 256.932 ml 732 ml Intake Free Water 100 ml 100 ml IV Total 901.932 ml 992 ml Tube Feeding 450 ml 450 ml Output Urine Total 1195 ml 810 ml # Bowel Movements 1 2D Echo: LVEF 55%, moderate AR Laboratory Tests Test 02/08/19 22:00 02/09/19 04:00 02/09/19 07:59 02/09/19 10:50 White Blood Count 18.0 K/UL (4.8-10.8) H 16.5 K/UL (4.8-10.8) H Red Blood Count 3.24 M/UL (4.70-6.10) L 3.11 M/UL (4.70-6.10) L Hemoglobin 9.7 G/DL (14.2-18.0) L 9.4 G/DL (14.2-18.0) L Hematocrit 30.5 % (42.0-52.0) L 29.7 % (42.0-52.0) L Mean Corpuscular Volume 94 FL (80-99) 95 FL (80-99) Mean Corpuscular Hemoglobin 30.0 PG (27.0-31.0) 30.3 PG (27.0-31.0) Mean Corpuscular Hemoglobin Concent 31.9 G/DL (32.0-36.0) L 31.7 G/DL (32.0-36.0) L Red Cell Distribution Width 14.4 % (11.6-14.8) 14.7 % (11.6-14.8) Platelet Count 107 K/UL (150-450) L 102 K/UL (150-450) L Mean Platelet Volume 8.5 FL (6.5-10.1) 7.6 FL (6.5-10.1) Neutrophils (%) (Auto) % (45.0-75.0) % (45.0-75.0) Lymphocytes (%) (Auto) % (20.0-45.0) % (20.0-45.0) Monocytes (%) (Auto) % (1.0-10.0) % (1.0-10.0) Eosinophils (%) (Auto) % (0.0-3.0) % (0.0-3.0) Basophils (%) (Auto) % (0.0-2.0) % (0.0-2.0) Sodium Level 139 MMOL/L (136-145) 142 MMOL/L (136-145) Potassium Level 4.2 MMOL/L (3.5-5.1) # 4.0 MMOL/L (3.5-5.1) Chloride Level 103 MMOL/L (98-107) 104 MMOL/L (98-107) Carbon Dioxide Level 36 MMOL/L (21-32) H 36 MMOL/L (21-32) H Anion Gap 0 mmol/L (5-15) L 2 mmol/L (5-15) L Blood Urea Nitrogen 22 mg/dL (7-18) H 22 mg/dL (7-18) H Creatinine 0.8 MG/DL (0.55-1.30) # 0.8 MG/DL (0.55-1.30) Estimat Glomerular Filtration Rate mL/min (>60) mL/min (>60) Glucose Level 117 MG/DL (74-106) H 82 MG/DL (74-106) Calcium Level 8.2 MG/DL (8.5-10.1) #L 8.2 MG/DL (8.5-10.1) L Phosphorus Level 3.4 MG/DL (2.5-4.9) 3.4 MG/DL (2.5-4.9) Magnesium Level 2.3 MG/DL (1.8-2.4) 2.2 MG/DL (1.8-2.4) Differential Total Cells Counted 100 Neutrophils % (Manual) 88 % (45-75) H Lymphocytes % (Manual) 3 % (20-45) L Monocytes % (Manual) 6 % (1-10) Eosinophils % (Manual) 0 % (0-3) Basophils % (Manual) 0 % (0-2) Band Neutrophils 3 % (0-8) Platelet Estimate Decreased L Platelet Morphology Normal Hypochromasia 1+ Anisocytosis 1+ Arterial Blood pH 7.401 (7.350-7.450) Arterial Blood Partial Pressure CO2 61.9 mmHg (35.0-45.0) *H Arterial Blood Partial Pressure O2 45.3 mmHg (75.0-100.0) Arterial Blood HCO3 37.6 mmol/L (22.0-26.0) H Arterial Blood Oxygen Saturation 36.8 % (95-100) *L Arterial Blood Base Excess 10.9 (-2-2) *H Delon Test Positive Vancomycin Level Trough 15.0 ug/mL (5.0-12.0) H Microbiology Date/Time Source Procedure Growth Status 02/07/19 12:00 Sputum Gram Stain - Final Resulted 02/07/19 12:00 Sputum Culture - Preliminary Pseudomonas Species Resulted Objective HEENT: Atraumatic, arousable, orally intubated, conjunctival pallor. NECK: Cannot assess JVD, no carotid bruit. LUNGS: Bilateral breath sounds. Few rhonchi. No wheezing. CARDIAC: Regular rhythm and rate. Normal S1 and S2. No murmurs, gallops or rubs. ABDOMEN: Soft, non-distended, + BS. EXTREMITIES: No edema, clubbing or cyanosis. Lv Zuniga MD Feb 09, 2019 21:50
--- NOTE | 2019-02-09 22:00 | NUR ---
NURSE NOTES: Patient was repositioned and also given ora care. HS is 56 SB. BP is 117/70. Deep suction was provided. Patient maintains RASS score of -2. Will continue to monitor.
[2019-02-10] VITALS (44 sets, daily range): BP systolic 91–180; BP diastolic 49–102
--- NOTE | 2019-02-10 | NUR ---
NURSE NOTES: Patient repositioned and given oral care. HR remains Sinus Jm asymptomatic. BP 143/59, 98.7F, 100% SpO2, RR 16. Patient is calm and relaxed. Making good urine output.
--- NOTE | 2019-02-10 02:00 | NUR ---
NURSE NOTES: Patient continues to be agitated and restless at times, patient becomes short of breath even while on the ventilator. Therapeutic communication and repositioning helps ease with the agitation. Patient in high semi-fowlers position. Vitals remains stable, will continue to monitor.
[2019-02-10] MEDS: fentaNYL Citrate 2,500 MCG in NS 200 ML IV SCH (02:25)
[2019-02-10] MEDS: Albuterol/Ipratropium 3ml neb HHN SCH ×6 (03:25→23:47)
[2019-02-10] MEDS: Vancomycin 750mg/NS 275ml IVPB SCH ×6 (03:47→20:19)
--- NOTE | 2019-02-10 04:00 | NUR ---
NURSE NOTES: sponge bath given. new linen applied. Stopped sedation for weaning trials in the morning. Patient continues to be agitated at times.
[2019-02-10 05:36] LABS: HEMATOCRIT 30.3 % (42.0-52.0); HEMOGLOBIN 9.6 G/DL (14.2-18.0); MEAN CORPUSCULAR VOLUME 96 FL (80-99); PLATELET COUNT 95 K/UL (150-450); RED BLOOD COUNT 3.16 M/UL (4.70-6.10); RED CELL DISTRIBUTION WIDTH 14.6 % (11.6-14.8); WHITE BLOOD COUNT 16.9 K/UL (4.8-10.8)
[2019-02-10] MEDS: Meropenem 1 GM in NS 55 ML IVPB SCH ×2 (05:51→14:47)
[2019-02-10] MEDS: NovoLOG Insulin Flexpen SUBQ SCH ×5 (05:55→23:33)
--- NOTE | 2019-02-10 06:00 | NUR ---
NURSE NOTES: Glucose is 65. D50 IVP given. Fentanyl remains on hold for AM weaning. Patient repositioned. Patient is calm at this time.
[2019-02-10 06:04] LABS: ANION GAP 1 mmol/L (5-15); BLOOD UREA NITROGEN 23 mg/dL (7-18); CALCIUM 8.5 MG/DL (8.5-10.1); CARBON DIOXIDE 37 MMOL/L (21-32); CHLORIDE 105 MMOL/L (98-107); CREATININE 0.8 MG/DL (0.55-1.30); SODIUM 143 MMOL/L (136-145)
--- NOTE | 2019-02-10 06:36 | NUR ---
NURSE NOTES: rechecked glucose and now its 126
--- NOTE | 2019-02-10 06:51 | NUR ---
NURSE NOTES: Dr. Graham at bedside making rounds. Cufflink test and cpap with pressure support of 8, abg 1 hour after wean. If patient tolerates wean then have patient extubated and begin BIPAP of 12/[address] Graham, and titrated FIO2 to keep Spo2 greater than 92%.
--- NOTE | 2019-02-10 07:04 | NUR ---
RESPIRATORY NOTE: Patient received mechanically ventilated on PB 840 with current ordered vent settings. Patient is orally intubated with a size 8.0 ETT with 25cm at the lip line that is secured with a commercial holster. Vent alarms are functional and audible. There is an ambu bag available at the bedside and the vent is connected to a red outlet. Will continue to monitor.
--- NOTE | 2019-02-10 07:11 | NUR ---
HAND-OFF: Report given to Johny ROYAL.
--- NOTE | 2019-02-10 07:43 | NUR ---
RESPIRATORY NOTE: Initiated weaning. Per Dr. White's orders to place on CPAP with PS 10. RN notified. No respiratory distress or shortness of breath noted at this time. Will continue to monitor.
--- NOTE | 2019-02-10 08:35 | NUR ---
RESPIRATORY NOTE: SBT ABG drawn. Reported to Johny ROYAL and results broadcasted in system. Awaiting further orders.
[2019-02-10] MEDS: Enoxaparin 40mg Inj SUBQ SCH (09:00)
[2019-02-10] MEDS: DOPamine 400mg/250ml 250 ML IV SCH (09:15)
--- NOTE | 2019-02-10 09:23 | NUR ---
NURSE NOTES: Dr. Morel notified regarding patient platelet count of 95, patient has Lovenox to be given, ordered to place parameters to hold Lovenox when platelet count is below 75. no active bleeding noted from NG-tube, ET-tube or foler catheter, will continue to monitor
--- NOTE | 2019-02-10 09:25 | NUR ---
NURSE NOTES: Dr. White notified regarding patient ABG results while on weaning trial at CPAP and PS of 10, gave order to extubate and place on bipap with setting of 12/5 at 30% FIO2. remains tolerating weaning with HR at 81, with BP of 113/95, SAo2 at 100% with RR of 13-18. no labored, sob or distress noted,
--- NOTE | 2019-02-10 09:57 | NUR ---
RESPIRATORY NOTE: Patient extubated and placed on BiPAP 12/5 on 30% oxygen, with CO2 monitoring per Dr. White's orders, RN at the bedside. Will continue to monitor.
[2019-02-10] MEDS: Solu-MEDROL 40mg Inj IVP SCH ×2 (10:20→20:19)
[2019-02-10] MEDS: Pantoprazole Inj IVP SCH ×2 (10:21→20:19)
[2019-02-10] MEDS: Docusate 100mg tablet NG SCH ×2 (10:21→17:56)
--- NOTE | 2019-02-10 10:51 | NUR ---
NURSE NOTES: Patient extubated at 0957 and placed on Bipap at 12/5 with FIO2: of 30% with etco2 monitor, patient remains saturating at 100% and etco2 with readings ranging from 39-44. he remains calm and relaxed with RR of 16-19 and no sob. large thick secretions suctioned upon removal of et-tube, will continue to monitor.
--- NOTE | 2019-02-10 11:58 | NUR ---
NURSE NOTES: Dr. White ordered to have patient solumedrol to be decreased to 30mg q12hrs ivp and discontinue restraints, Addendum: 02/10/19 at 1556 by TOMASA RASMUSSEN RN order was to discontinue solumedrol 40mg ivp q12 no restraints
--- NOTE | 2019-02-10 12:10 | Pulmonolgy Critical Care Note ---
Critical Care - Asmt/Plan Assessment/Plan: Pulmonary Critical Care Progress Note HPI Patient is a 73 year olf man with previous history of COPD, CHF, HTN, DM admitted with extreme respiratory distress, intubated in the ED, subsequent Cardiac Arrest. Noted to have hypercapneic respiratory failure. Interactive today, improved ventilator requirements, tolerated PS8 today, interactive mental status, patient extubated to BiPAP Increased WCC - RIJ lne DC CT Head negative Allergies: No Known Allergies Past Medical History: COPD/Asthma, CHF, Hypertension, DM All Other Systems: limited Physical Exam Vital signs noted General Appearance: awake Head: normocephalic, atraumatic Eyes: bilateral eye PERRL, bilateral eye EOMI ENT: moist mm, no LN Neck: supple Respiratory: generally reduced BS Cardiovascular: tachycardia, HS1, HS2, RRR Gastrointestinal: non tender, soft Musculoskeletal: normal inspection Neurologic: awake, no focal signs Skin: no rash, palpation normal Impression: COPD exacerbation Hypercapneic respiratory failure S/p cardiac arrest in the ED CHF HTN Diabetes Plan Wean as tolerated - extubate, BiPAP PRN Adjust FIO2 for sats 90-94% HHN Q4 IV Solumedrol - reduce Sedation PRN Sz management Monitor labs PPX Antibiotics per ID DNR status Labs noted Chest X-Ray: No consolidation, no effusion, ETT tube 7cm, PICC line good position Critical Care - Objective Last 24 Hour Vital Signs Date Time Temp Pulse Resp B/P (MAP) Pulse Ox O2 Delivery O2 Flow Rate FiO2 02/10/19 11:15 Bi-pap 30 02/10/19 11:13 82 18 100 Bi-Pap 30 02/10/19 11:06 82 18 100 Full Face 30 79 14 100 Bi-Pap 30 02/10/19 10:45 73 15 120/62 (81) 100 02/10/19 10:30 78 16 129/102 (111) 100 02/10/19 10:15 87 16 136/71 (92) 100 02/10/19 10:00 85 18 136/70 (92) 100 02/10/19 09:57 30 02/10/19 09:30 79 15 133/84 (100) 100 02/10/19 09:00 75 18 113/95 (101) 100 02/10/19 08:45 77 17 30 02/10/19 08:30 83 16 121/63 (82) 100 02/10/19 08:00 30 02/10/19 08:00 97.8 81 15 147/65 (92) 100 02/10/19 08:00 Mechanical Ventilator 02/10/19 08:00 78 02/10/19 07:40 30 02/10/19 07:39 98 02/10/19 07:30 76 16 111/62 (78) 99 02/10/19 07:15 71 16 100 Mechanical Ventilator 30 02/10/19 07:00 59 16 102/59 (73) 100 02/10/19 06:55 63 18 30 02/10/19 06:30 57 16 123/56 (78) 100 02/10/19 06:00 80 16 128/68 (88) 100 02/10/19 05:37 58 17 Mechanical Ventilator 30 02/10/19 05:30 59 16 130/71 (90) 100 02/10/19 05:00 57 15 148/66 (93) 100 02/10/19 04:30 57 15 91/64 (73) 100 02/10/19 04:00 16 Mechanical Ventilator 30 02/10/19 04:00 Mechanical Ventilator 02/10/19 04:00 62 02/10/19 04:00 30 02/10/19 04:00 99.2 67 16 164/63 (96) 100 02/10/19 03:30 67 16 129/55 (79) 100 02/10/19 03:25 53 17 100 Mechanical Ventilator 30 59 16 30 02/10/19 03:00 16 Mechanical Ventilator 30 02/10/19 03:00 55 16 154/59 (90) 100 02/10/19 02:30 59 16 132/63 (86) 100 02/10/19 02:25 Mechanical Ventilator 30 02/10/19 02:00 102 20 143/75 (97) 100 02/10/19 01:30 102 20 153/70 (97) 100 02/10/19 01:15 91 21 Mechanical Ventilator 30 02/10/19 01:00 55 16 118/58 (78) 100 02/10/19 01:00 16 Mechanical Ventilator 30 02/10/19 00:30 59 16 124/63 (83) 100 02/10/19 00:00 Mechanical Ventilator 02/10/19 00:00 30 8/25/19 00:00 98.7 49 17 131/60 (83) 100 02/10/19 00:00 49 02/10/19 00:00 16 Mechanical Ventilator 30 02/09/19 23:30 58 16 108/59 (75) 100 02/09/19 23:17 53 18 100 Mechanical Ventilator 30 61 18 30 02/09/19 23:00 16 Mechanical Ventilator 30 02/09/19 23:00 52 16 133/58 (83) 100 02/09/19 22:30 58 16 120/62 (81) 100 02/09/19 22:00 68 16 162/53 (89) 100 02/09/19 22:00 16 Mechanical Ventilator 30 02/09/19 21:30 48 16 128/61 (83) 100 02/09/19 21:15 48 18 30 02/09/19 21:00 49 16 118/57 (77) 100 02/09/19 21:00 16 Mechanical Ventilator 30 02/09/19 20:30 56 16 108/56 (73) 100 02/09/19 20:15 59 16 113/57 (75) 75 02/09/19 20:00 99.4 73 16 123/56 (78) 100 02/09/19 20:00 30 02/09/19 20:00 16 Mechanical Ventilator 30 02/09/19 20:00 Mechanical Ventilator 02/09/19 20:00 52 02/09/19 19:30 87 15 140/105 (117) 100 02/09/19 19:08 73 17 100 Mechanical Ventilator 30 64 18 30 02/09/19 19:00 61 16 109/64 (79) 100 02/09/19 19:00 16 Mechanical Ventilator 30 02/09/19 18:30 60 16 134/74 (94) 100 02/09/19 18:00 62 16 104/66 (79) 100 02/09/19 17:30 63 16 102/52 (69) 100 02/09/19 17:26 48 16 30 02/09/19 17:00 49 16 109/57 (74) 100 02/09/19 16:30 48 16 100/54 (69) 100 02/09/19 16:00 47 02/09/19 16:00 Mechanical Ventilator 02/09/19 16:00 50 02/09/19 16:00 98.2 47 16 100/63 (75) 100 02/09/19 15:30 47 16 102/60 (74) 100 02/09/19 15:09 48 16 100 Mechanical Ventilator 30 53 17 30 02/09/19 15:00 53 16 101/50 (67) 100 02/09/19 14:30 52 16 109/56 (73) 100 02/09/19 14:00 56 16 106/75 (85) 100 02/09/19 13:40 18 Mechanical Ventilator 50 02/09/19 13:30 60 16 135/55 (81) 100 02/09/19 13:16 59 16 30 02/09/19 13:00 59 16 131/45 (73) 100 02/09/19 12:30 60 16 131/66 (87) 100 Accucheck: 126 Critical Care - Subjective ROS Limited/Unobtainable: No Condition: improving FI02: 30 Vent Support Breath Rate: 16 Vent Support Mode: CPAP Vent Tidal Volume: 500 Sputum Amount: None PEEP: 5.0 PIP: 16 Tube Feeding Amount: 45 I&O: Intake and Output 02/09/19 02/10/19 19:00 07:00 Intake Total 750 ml 1535 ml Output Total 1130 ml 655 ml Balance -380 ml 880 ml Intake Free Water 200 ml 100 ml IV Total 25 ml 1075 ml Tube Feeding 495 ml 360 ml Other 30 ml Output Urine Total 1130 ml 655 ml ET-Tube: 8.0 ET Position: 25 Johny White MD Feb 10, 2019 12:10
--- NOTE | 2019-02-10 12:30 | Hematology/Onc Progress Note ---
Assessment/Plan Assessment/Plan # Thrombocytopenia is likely due to underlying infection/sepsis v dic, reactive process --> hiv is neg, hepatitis is neg as well --> us of the abd from prior 2018 --> plt rend 140-->115-->105-->133-->110k--> 118k-->100k-->95k --> okay for ppx as long as above 75k --> meds have been reviewed # Anemia of chronic disease, due to multifactorial causes --> anemia panel reviewed from earlier in admission and c/w acd --> hgb goal is >7 --> no hemolysis is seen --> smear has been reviewed --> hgb trend 9.3-->11.1-->9.6 # Leukocytosis/elevated white blood cell count, unspecified likely related to steroid meds --> have reviewed peripheral smear and bandemia/neutrophilia noted --> continue antibiotics if they have been started by ID team, zosyn --> monitor for resolution --> wbc trend 14-->18-->24.3-->17.3 # COPD exacerbation with asp pna --> has been given steriods --> per id for aspiration prec on zosyn --> rochelle/vanc # Hypercapneic respiratory failure --> remains on vent--> EXTUbated 8.25 --> on bipap # S/p cardiac arrest in the ED # CHF # HTN # Diabetes # DNR status # Dysphagia with NG++ Time of note does not correspond to when patient was seen. Greatly appreciate consultation. Subjective Constitutional: Denies: no symptoms, chills, fever, malaise, weakness, other HEENT: Denies: no symptoms, eye pain, blurred vision, tearing, double vision, ear pain, ear discharge, nose pain, nose congestion, throat pain, throat swelling, mouth pain, mouth swelling, other Respiratory: Denies: no symptoms, cough, shortness of breath, SOB with excertion, SOB at rest, sputum, wheezing, other Gastrointestinal/Abdominal: Denies: no symptoms, abdomen distended, abdominal pain, black stools, tarry stools, blood in stool, constipated, diarrhea, difficulty swallowing, nausea, poor appetite, poor fluid intake, rectal bleeding , vomiting, other Neurologic/Psychiatric: Denies: no symptoms, anxiety, depressed, emotional problems, headache, numbness, paresthesia, pre-existing deficit, seizure, tingling, tremors, weakness, other Endocrine: Denies: no symptoms, excessive sweating, flushing, intolerance to cold, intolerance to heat, increased hunger, increased thirst, increased urine, unexplained weight gain, unexplained weight loss, other Hematologic/Lymphatic: Denies: no symptoms, anemia, easy bleeding, easy bruising, adenopathy, other Allergies: Coded Allergies: No Known Allergies (Unverified , 06/05/18) Subjective 02/01: no events to report, plt is lower, weaning trial initiated with isaac, mack rn, hiv neg 02/04: icu, wbc elevated, on abx 02/05: remains on vent, fighting vent, on abx remains on lovenox, on steriods 02/06: icu, on vent, vs stable, no sob or respiratory distress 02/07: remains in the icu, intubated, ng tube, weaning trial today 02/08: icu, restless and agitated, extubation pending, wbc improved 02/10: no vent, remains in icu, seen by isaac, extubated today, on bipap Objective Objective Current Medications Medications (Trade) Dose Ordered Sig/Brittani Route PRN Reason Start Time Stop Time Status Last Admin Dose Admin Acetaminophen (Tylenol) 650 mg Q4H PRN NG FOR MILD PAIN 01/26/19 10:15 02/25/19 10:14 Albuterol/ Ipratropium (Albuterol/ Ipratropium) 3 ml Q4HRT HHN 02/08/19 15:00 02/13/19 14:59 02/10/19 11:06 Chlorhexidine Gluconate (Renetta-Hex 2%) 1 applic DAILY@1999 TOPIC 02/07/19 20:00 03/09/19 19:59 02/09/19 20:26 Dextrose (Dextrose 50%) 25 ml Q30M PRN IV Hypoglycemia 01/26/19 10:30 02/25/19 10:29 Dextrose (Dextrose 50%) 50 ml Q30M PRN IV Hypoglycemia 01/26/19 10:30 02/25/19 10:29 02/10/19 05:51 Docusate Sodium (Colace) 100 mg BID NG 02/02/19 18:00 03/04/19 17:59 02/10/19 10:21 Dopamine HCl/ Dextrose 250 ml @ 0 mls/hr Q24H IV 02/06/19 09:15 03/08/19 09:14 Enoxaparin Sodium (Lovenox) 40 mg DAILY SUBQ 02/11/19 09:00 03/02/19 08:59 Fentanyl Citrate 2500 mcg/Sodium Chloride 250 ml @ 0 mls/hr Q24H IV 02/02/19 12:00 02/16/19 11:59 02/10/19 02:25 Hydralazine HCl (Apresoline) 25 mg Q6H PRN NG For High Blood Pressure 02/07/19 17:15 03/06/19 16:59 Insulin Aspart (NovoLOG) Q6HR SUBQ 01/26/19 12:00 02/25/19 11:59 02/09/19 18:29 Meropenem 1 gm/ Sodium Chloride 55 ml @ 110 mls/hr Q8HR IVPB 02/06/19 22:00 02/11/19 21:59 02/10/19 05:51 Methylprednisolone Sodium Succinate (Solu-MEDROL) 30 mg EVERY 12 HOURS IVP 02/10/19 21:00 03/12/19 20:59 Pantoprazole (Protonix) 40 mg Q12HR IVP 02/03/19 21:00 02/25/19 10:59 02/10/19 10:21 Polyethylene Glycol (Miralax) 17 gm BEDTIME NG 02/07/19 21:00 03/03/19 20:59 02/09/19 20:26 Vancomycin HCl (Vanco rx to dose) 1 ea DAILY PRN MISC Per rx protocol 02/06/19 20:00 03/08/19 19:59 Vancomycin HCl 750 mg/Sodium Chloride 275 ml @ 183.333 mls/hr Q8HR@0400,1200,2000 IVPB 02/08/19 20:00 02/13/19 19:59 02/10/19 03:47 Last 24 Hour Vital Signs Date Time Temp Pulse Resp B/P (MAP) Pulse Ox O2 Delivery O2 Flow Rate FiO2 02/10/19 12:00 98.7 87 11 134/64 (87) 99 02/10/19 11:30 82 15 142/73 (96) 100 02/10/19 11:15 Bi-pap 30 02/10/19 11:13 82 18 100 Bi-Pap 30 02/10/19 11:06 82 18 100 Full Face 30 79 14 100 Bi-Pap 30 02/10/19 11:00 81 14 133/68 (89) 100 02/10/19 10:45 73 15 120/62 (81) 100 02/10/19 10:30 78 16 129/102 (111) 100 02/10/19 10:15 87 16 136/71 (92) 100 02/10/19 10:00 85 18 136/70 (92) 100 02/10/19 09:57 30 02/10/19 09:30 79 15 133/84 (100) 100 02/10/19 09:00 75 18 113/95 (101) 100 02/10/19 08:45 77 17 30 02/10/19 08:30 83 16 121/63 (82) 100 02/10/19 08:00 30 02/10/19 08:00 97.8 81 15 147/65 (92) 100 02/10/19 08:00 Mechanical Ventilator 02/10/19 08:00 78 02/10/19 07:40 30 02/10/19 07:39 98 02/10/19 07:30 76 16 111/62 (78) 99 02/10/19 07:15 71 16 100 Mechanical Ventilator 30 02/10/19 07:00 59 16 102/59 (73) 100 02/10/19 06:55 63 18 30 02/10/19 06:30 57 16 123/56 (78) 100 02/10/19 06:00 80 16 128/68 (88) 100 02/10/19 05:37 58 17 Mechanical Ventilator 30 02/10/19 05:30 59 16 130/71 (90) 100 02/10/19 05:00 57 15 148/66 (93) 100 02/10/19 04:30 57 15 91/64 (73) 100 02/10/19 04:00 16 Mechanical Ventilator 30 02/10/19 04:00 Mechanical Ventilator 02/10/19 04:00 62 02/10/19 04:00 30 02/10/19 04:00 99.2 67 16 164/63 (96) 100 02/10/19 03:30 67 16 129/55 (79) 100 02/10/19 03:25 53 17 100 Mechanical Ventilator 30 59 16 30 02/10/19 03:00 16 Mechanical Ventilator 30 02/10/19 03:00 55 16 154/59 (90) 100 02/10/19 02:30 59 16 132/63 (86) 100 02/10/19 02:25 Mechanical Ventilator 30 02/10/19 02:00 102 20 143/75 (97) 100 02/10/19 01:30 102 20 153/70 (97) 100 02/10/19 01:15 91 21 Mechanical Ventilator 30 02/10/19 01:00 55 16 118/58 (78) 100 02/10/19 01:00 16 Mechanical Ventilator 30 02/10/19 00:30 59 16 124/63 (83) 100 02/10/19 00:00 Mechanical Ventilator 02/10/19 00:00 30 02/10/19 00:00 98.7 49 17 131/60 (83) 100 02/10/19 00:00 49 02/10/19 00:00 16 Mechanical Ventilator 30 02/09/19 23:30 58 16 108/59 (75) 100 02/09/19 23:17 53 18 100 Mechanical Ventilator 30 61 18 30 02/09/19 23:00 16 Mechanical Ventilator 30 02/09/19 23:00 52 16 133/58 (83) 100 02/09/19 22:30 58 16 120/62 (81) 100 02/09/19 22:00 68 16 162/53 (89) 100 02/09/19 22:00 16 Mechanical Ventilator 30 02/09/19 21:30 48 16 128/61 (83) 100 02/09/19 21:15 48 18 30 02/09/19 21:00 49 16 118/57 (77) 100 02/09/19 21:00 16 Mechanical Ventilator 30 02/09/19 20:30 56 16 108/56 (73) 100 02/09/19 20:15 59 16 113/57 (75) 75 02/09/19 20:00 99.4 73 16 123/56 (78) 100 02/09/19 20:00 30 02/09/19 20:00 16 Mechanical Ventilator 30 02/09/19 20:00 Mechanical Ventilator 02/09/19 20:00 52 02/09/19 19:30 87 15 140/105 (117) 100 02/09/19 19:08 73 17 100 Mechanical Ventilator 30 64 18 30 02/09/19 19:00 61 16 109/64 (79) 100 02/09/19 19:00 16 Mechanical Ventilator 30 02/09/19 18:30 60 16 134/74 (94) 100 02/09/19 18:00 62 16 104/66 (79) 100 02/09/19 17:30 63 16 102/52 (69) 100 02/09/19 17:26 48 16 30 02/09/19 17:00 49 16 109/57 (74) 100 02/09/19 16:30 48 16 100/54 (69) 100 02/09/19 16:00 47 02/09/19 16:00 Mechanical Ventilator 02/09/19 16:00 50 02/09/19 16:00 98.2 47 16 100/63 (75) 100 02/09/19 15:30 47 16 102/60 (74) 100 02/09/19 15:09 48 16 100 Mechanical Ventilator 30 53 17 30 02/09/19 15:00 53 16 101/50 (67) 100 02/09/19 14:30 52 16 109/56 (73) 100 02/09/19 14:00 56 16 106/75 (85) 100 02/09/19 13:40 18 Mechanical Ventilator 50 02/09/19 13:30 60 16 135/55 (81) 100 02/09/19 13:16 59 16 30 02/09/19 13:00 59 16 131/45 (73) 100 02/09/19 12:30 60 16 131/66 (87) 100 02/09/19 12:00 98.1 62 16 119/68 (85) 100 02/09/19 12:00 58 02/09/19 12:00 Mechanical Ventilator 02/09/19 11:48 71 16 100 Mechanical Ventilator 30 71 16 30 02/09/19 11:30 81 22 170/93 (118) 100 02/09/19 11:00 51 16 158/88 (111) 100 02/09/19 10:30 50 16 105/75 (85) 100 02/09/19 10:00 54 16 117/65 (82) 100 02/09/19 09:30 55 18 119/61 (80) 100 02/09/19 09:15 119/61 02/09/19 09:06 96 02/09/19 09:00 66 19 126/59 (81) 100 02/09/19 08:44 63 20 100 Mechanical Ventilator 30 74 11 30 02/09/19 08:30 50 02/09/19 08:30 75 14 144/67 (92) 99 02/09/19 08:00 30 02/09/19 08:00 Mechanical Ventilator 02/09/19 08:00 56 02/09/19 08:00 98.9 72 15 146/57 (86) 99 02/09/19 07:30 55 15 120/54 (76) 100 02/09/19 07:00 70 16 132/53 (79) 100 02/09/19 06:46 51 16 100 Mechanical Ventilator 30 74 11 30 30 02/09/19 06:30 49 16 126/47 (73) 100 02/09/19 06:00 47 16 113/51 (71) 100 02/09/19 05:30 49 16 112/48 (69) 100 02/09/19 05:15 52 16 30 02/09/19 05:00 16 Mechanical Ventilator 30 02/09/19 05:00 50 13 126/56 (79) 100 02/09/19 04:30 51 16 115/55 (75) 100 02/09/19 04:00 30 02/09/19 04:00 54 02/09/19 04:00 16 Mechanical Ventilator 30 02/09/19 04:00 Mechanical Ventilator 02/09/19 04:00 99.6 48 16 120/55 (76) 100 02/09/19 03:30 47 16 110/56 (74) 100 02/09/19 03:17 51 16 100 Mechanical Ventilator 30 56 16 30 02/09/19 03:00 53 16 118/51 (73) 100 02/09/19 03:00 16 Mechanical Ventilator 30 02/09/19 02:30 75 24 141/58 (85) 100 02/09/19 02:00 52 15 130/61 (84) 100 02/09/19 02:00 16 Mechanical Ventilator 30 02/09/19 01:30 51 16 111/63 (79) 100 02/09/19 01:00 16 Mechanical Ventilator 30 02/09/19 01:00 58 16 136/70 (92) 100 02/09/19 00:35 61 17 30 02/09/19 00:30 48 16 129/108 (115) 100 02/09/19 00:00 Mechanical Ventilator 02/09/19 00:00 48 02/09/19 00:00 98.3 45 16 108/52 (70) 100 02/09/19 00:00 16 Mechanical Ventilator 30 02/09/19 00:00 30 02/08/19 23:36 58 18 98 Mechanical Ventilator 30 56 18 30 02/08/19 23:30 46 16 101/60 (74) 100 02/08/19 23:00 42 16 101/46 (64) 100 02/08/19 23:00 16 Mechanical Ventilator 30 02/08/19 22:30 51 16 118/50 (72) 100 02/08/19 22:00 16 Mechanical Ventilator 30 02/08/19 22:00 45 17 153/121 (132) 100 02/08/19 21:30 50 16 152/52 (85) 100 02/08/19 21:15 71 18 30 02/08/19 21:00 54 0 141/61 (87) 100 02/08/19 21:00 16 Mechanical Ventilator 30 02/08/19 20:44 16 Mechanical Ventilator 30 02/08/19 20:30 58 8 131/66 (87) 100 02/08/19 20:00 30 02/08/19 20:00 Mechanical Ventilator 02/08/19 20:00 16 Mechanical Ventilator 30 02/08/19 20:00 99.3 70 19 136/57 (83) 100 02/08/19 20:00 54 02/08/19 19:30 81 15 163/87 (112) 100 02/08/19 19:08 67 20 100 Mechanical Ventilator 30 02/08/19 19:08 67 16 100 Mechanical Ventilator 30 57 16 30 02/08/19 19:00 53 17 138/65 (89) 100 02/08/19 19:00 16 Mechanical Ventilator 30 02/08/19 18:30 70 16 157/56 (89) 100 02/08/19 18:00 16 Mechanical Ventilator 30 02/08/19 18:00 83 19 142/65 (90) 100 02/08/19 17:30 51 16 112/60 (77) 100 02/08/19 17:00 17 Mechanical Ventilator 30 02/08/19 17:00 97.6 62 16 132/49 (76) 100 02/08/19 16:53 53 16 30 02/08/19 16:30 55 17 161/56 (91) 100 02/08/19 16:00 62 16 151/62 (91) 100 02/08/19 16:00 Mechanical Ventilator 02/08/19 16:00 18 Mechanical Ventilator 02/08/19 16:00 30 02/08/19 15:40 59 02/08/19 15:30 51 16 128/70 (89) 100 02/08/19 15:29 56 16 100 Mechanical Ventilator 30 02/08/19 15:19 56 16 100 Mechanical Ventilator 30 02/08/19 15:18 55 16 30 02/08/19 15:00 51 17 112/75 (87) 100 02/08/19 15:00 19 Mechanical Ventilator 30 02/08/19 14:30 56 16 104/63 (77) 100 02/08/19 14:00 19 Mechanical Ventilator 30 02/08/19 14:00 59 15 114/65 (81) 100 02/08/19 13:30 60 19 131/59 (83) 100 02/08/19 13:00 16 Mechanical Ventilator 30 02/08/19 13:00 59 17 120/58 (78) 100 02/08/19 12:45 62 16 30 02/08/19 12:30 66 16 152/60 (90) 100 02/08/19 12:30 16 Mechanical Ventilator 30 Intake and Output 02/09/19 02/10/19 19:00 07:00 Intake Total 750 ml 1535 ml Output Total 1130 ml 655 ml Balance -380 ml 880 ml Intake Free Water 200 ml 100 ml IV Total 25 ml 1075 ml Tube Feeding 495 ml 360 ml Other 30 ml Output Urine Total 1130 ml 655 ml Labs Test 02/08/19 09:50 02/08/19 13:20 02/08/19 22:00 02/09/19 04:00 Vancomycin Level Trough 10.8 ug/mL (5.0-12.0) White Blood Count 17.3 K/UL (4.8-10.8) 18.0 K/UL (4.8-10.8) 16.5 K/UL (4.8-10.8) Red Blood Count 3.20 M/UL (4.70-6.10) 3.24 M/UL (4.70-6.10) 3.11 M/UL (4.70-6.10) Hemoglobin 9.6 G/DL (14.2-18.0) 9.7 G/DL (14.2-18.0) 9.4 G/DL (14.2-18.0) Hematocrit 30.4 % (42.0-52.0) 30.5 % (42.0-52.0) 29.7 % (42.0-52.0) Mean Corpuscular Volume 95 FL (80-99) 94 FL (80-99) 95 FL (80-99) Mean Corpuscular Hemoglobin 29.9 PG (27.0-31.0) 30.0 PG (27.0-31.0) 30.3 PG (27.0-31.0) Mean Corpuscular Hemoglobin Concent 31.5 G/DL (32.0-36.0) 31.9 G/DL (32.0-36.0) 31.7 G/DL (32.0-36.0) Red Cell Distribution Width 14.6 % (11.6-14.8) 14.4 % (11.6-14.8) 14.7 % (11.6-14.8) Platelet Count 100 K/UL (150-450) 107 K/UL (150-450) 102 K/UL (150-450) Mean Platelet Volume 7.5 FL (6.5-10.1) 8.5 FL (6.5-10.1) 7.6 FL (6.5-10.1) Neutrophils (%) (Auto) % (45.0-75.0) % (45.0-75.0) % (45.0-75.0) Lymphocytes (%) (Auto) % (20.0-45.0) % (20.0-45.0) % (20.0-45.0) Monocytes (%) (Auto) % (1.0-10.0) % (1.0-10.0) % (1.0-10.0) Eosinophils (%) (Auto) % (0.0-3.0) % (0.0-3.0) % (0.0-3.0) Basophils (%) (Auto) % (0.0-2.0) % (0.0-2.0) % (0.0-2.0) Differential Total Cells Counted 100 100 Neutrophils % (Manual) 93 % (45-75) 88 % (45-75) Lymphocytes % (Manual) 4 % (20-45) 3 % (20-45) Monocytes % (Manual) 3 % (1-10) 6 % (1-10) Eosinophils % (Manual) 0 % (0-3) 0 % (0-3) Basophils % (Manual) 0 % (0-2) 0 % (0-2) Band Neutrophils 0 % (0-8) 3 % (0-8) Platelet Estimate Decreased Decreased Platelet Morphology Normal Normal Hypochromasia 1+ 1+ Anisocytosis 1+ 1+ Sodium Level 143 MMOL/L (136-145) 139 MMOL/L (136-145) 142 MMOL/L (136-145) Potassium Level 2.4 MMOL/L (3.5-5.1) 4.2 MMOL/L (3.5-5.1) 4.0 MMOL/L (3.5-5.1) Chloride Level 112 MMOL/L (98-107) 103 MMOL/L (98-107) 104 MMOL/L (98-107) Carbon Dioxide Level 27 MMOL/L (21-32) 36 MMOL/L (21-32) 36 MMOL/L (21-32) Anion Gap 4 mmol/L (5-15) 0 mmol/L (5-15) 2 mmol/L (5-15) Blood Urea Nitrogen 16 mg/dL (7-18) 22 mg/dL (7-18) 22 mg/dL (7-18) Creatinine 0.5 MG/DL (0.55-1.30) 0.8 MG/DL (0.55-1.30) 0.8 MG/DL (0.55-1.30) Estimat Glomerular Filtration Rate mL/min (>60) mL/min (>60) mL/min (>60) Glucose Level 162 MG/DL (74-106) 117 MG/DL (74-106) 82 MG/DL (74-106) Calcium Level 5.9 MG/DL (8.5-10.1) 8.2 MG/DL (8.5-10.1) 8.2 MG/DL (8.5-10.1) Phosphorus Level 2.1 MG/DL (2.5-4.9) 3.4 MG/DL (2.5-4.9) 3.4 MG/DL (2.5-4.9) Magnesium Level 1.1 MG/DL (1.8-2.4) 2.3 MG/DL (1.8-2.4) 2.2 MG/DL (1.8-2.4) Test 02/09/19 07:59 02/09/19 10:50 02/10/19 04:00 02/10/19 08:34 Arterial Blood pH 7.401 (7.350-7.450) 7.454 (7.350-7.450) Arterial Blood Partial Pressure CO2 61.9 mmHg (35.0-45.0) 57.3 mmHg (35.0-45.0) Arterial Blood Partial Pressure O2 45.3 mmHg (75.0-100.0) 61.0 mmHg (75.0-100.0) Arterial Blood HCO3 37.6 mmol/L (22.0-26.0) 39.3 mmol/L (22.0-26.0) Arterial Blood Oxygen Saturation 36.8 % (95-100) 91.7 % (95-100) Arterial Blood Base Excess 10.9 (-2-2) 13.4 (-2-2) Delon Test Positive Positive Vancomycin Level Trough 15.0 ug/mL (5.0-12.0) White Blood Count 16.9 K/UL (4.8-10.8) Red Blood Count 3.16 M/UL (4.70-6.10) Hemoglobin 9.6 G/DL (14.2-18.0) Hematocrit 30.3 % (42.0-52.0) Mean Corpuscular Volume 96 FL (80-99) Mean Corpuscular Hemoglobin 30.4 PG (27.0-31.0) Mean Corpuscular Hemoglobin Concent 31.7 G/DL (32.0-36.0) Red Cell Distribution Width 14.6 % (11.6-14.8) Platelet Count 95 K/UL (150-450) Mean Platelet Volume 7.6 FL (6.5-10.1) Neutrophils (%) (Auto) % (45.0-75.0) Lymphocytes (%) (Auto) % (20.0-45.0) Monocytes (%) (Auto) % (1.0-10.0) Eosinophils (%) (Auto) % (0.0-3.0) Basophils (%) (Auto) % (0.0-2.0) Differential Total Cells Counted 100 Neutrophils % (Manual) 91 % (45-75) Lymphocytes % (Manual) 6 % (20-45) Monocytes % (Manual) 3 % (1-10) Eosinophils % (Manual) 0 % (0-3) Basophils % (Manual) 0 % (0-2) Band Neutrophils 0 % (0-8) Platelet Estimate Decreased Platelet Morphology Normal Anisocytosis 1+ Sodium Level 143 MMOL/L (136-145) Potassium Level 4.0 MMOL/L (3.5-5.1) Chloride Level 105 MMOL/L (98-107) Carbon Dioxide Level 37 MMOL/L (21-32) Anion Gap 1 mmol/L (5-15) Blood Urea Nitrogen 23 mg/dL (7-18) Creatinine 0.8 MG/DL (0.55-1.30) Estimat Glomerular Filtration Rate mL/min (>60) Glucose Level 76 MG/DL (74-106) Calcium Level 8.5 MG/DL (8.5-10.1) Phosphorus Level 3.0 MG/DL (2.5-4.9) Magnesium Level 2.1 MG/DL (1.8-2.4) Height (Feet): 5 Height (Inches): 10.00 Weight (Pounds): 167 Objective General Appearance: sedated on ventilator Head: normocephalic, atraumatic Neck: supple ++ NG Respiratory: generally reduced bs, on bipap Cardiovascular: tachycardia, HS1, HS2, RRR Gastrointestinal: non tender, soft Musculoskeletal: normal inspection Neurologic: sedated on ventilator Skin: no rash, palpation normal Conrado Morel MD Feb 10, 2019 12:30
--- NOTE | 2019-02-10 13:02 | NUR ---
HAND-OFF: Report given to GENNY Mora.
--- NOTE | 2019-02-10 13:14 | Nephrology Progress Note ---
Assessment/Plan Problem List: (1) Cardiac arrest (2) Prerenal azotemia (3) Hypernatremia (4) Hypoalbuminemia (5) HTN (hypertension) Assessment Now extubated Pre renal Azotemia due to - Dehydration- - High Protein catabolic state as result of Doxy and steroids HyperNatremia due to free water deficit HypoAlbuminemia Plan Sugg: keep bp in check stop D5W IV fluid Avoid Nephrotoxics Monitor lytes per consultants Subjective ROS Limited/Unobtainable: No Constitutional: Reports: malaise Objective Objective Last 24 Hour Vital Signs Date Time Temp Pulse Resp B/P (MAP) Pulse Ox O2 Delivery O2 Flow Rate FiO2 02/10/19 12:00 Bi-pap 02/10/19 12:00 98.7 87 11 134/64 (87) 99 02/10/19 11:30 82 15 142/73 (96) 100 02/10/19 11:15 Bi-pap 30 02/10/19 11:13 82 18 100 Bi-Pap 30 02/10/19 11:06 82 18 100 Full Face 30 79 14 100 Bi-Pap 30 02/10/19 11:00 81 14 133/68 (89) 100 02/10/19 10:45 73 15 120/62 (81) 100 02/10/19 10:30 78 16 129/102 (111) 100 02/10/19 10:15 87 16 136/71 (92) 100 02/10/19 10:00 85 18 136/70 (92) 100 02/10/19 09:57 30 02/10/19 09:30 79 15 133/84 (100) 100 02/10/19 09:00 75 18 113/95 (101) 100 02/10/19 08:45 77 17 30 02/10/19 08:30 83 16 121/63 (82) 100 02/10/19 08:00 30 02/10/19 08:00 97.8 81 15 147/65 (92) 100 02/10/19 08:00 Mechanical Ventilator 02/10/19 08:00 78 02/10/19 07:40 30 02/10/19 07:39 98 02/10/19 07:30 76 16 111/62 (78) 99 02/10/19 07:15 71 16 100 Mechanical Ventilator 30 02/10/19 07:00 59 16 102/59 (73) 100 02/10/19 06:55 63 18 30 02/10/19 06:30 57 16 123/56 (78) 100 02/10/19 06:00 80 16 128/68 (88) 100 02/10/19 05:37 58 17 Mechanical Ventilator 30 02/10/19 05:30 59 16 130/71 (90) 100 02/10/19 05:00 57 15 148/66 (93) 100 02/10/19 04:30 57 15 91/64 (73) 100 02/10/19 04:00 16 Mechanical Ventilator 30 02/10/19 04:00 Mechanical Ventilator 02/10/19 04:00 62 02/10/19 04:00 30 02/10/19 04:00 99.2 67 16 164/63 (96) 100 02/10/19 03:30 67 16 129/55 (79) 100 02/10/19 03:25 53 17 100 Mechanical Ventilator 30 59 16 30 02/10/19 03:00 16 Mechanical Ventilator 30 02/10/19 03:00 55 16 154/59 (90) 100 02/10/19 02:30 59 16 132/63 (86) 100 02/10/19 02:25 Mechanical Ventilator 30 02/10/19 02:00 102 20 143/75 (97) 100 02/10/19 01:30 102 20 153/70 (97) 100 02/10/19 01:15 91 21 Mechanical Ventilator 30 02/10/19 01:00 55 16 118/58 (78) 100 02/10/19 01:00 16 Mechanical Ventilator 30 02/10/19 00:30 59 16 124/63 (83) 100 02/10/19 00:00 Mechanical Ventilator 02/10/19 00:00 30 02/10/19 00:00 98.7 49 17 131/60 (83) 100 02/10/19 00:00 49 02/10/19 00:00 16 Mechanical Ventilator 30 02/09/19 23:30 58 16 108/59 (75) 100 02/09/19 23:17 53 18 100 Mechanical Ventilator 30 61 18 30 02/09/19 23:00 16 Mechanical Ventilator 30 02/09/19 23:00 52 16 133/58 (83) 100 02/09/19 22:30 58 16 120/62 (81) 100 02/09/19 22:00 68 16 162/53 (89) 100 02/09/19 22:00 16 Mechanical Ventilator 30 02/09/19 21:30 48 16 128/61 (83) 100 02/09/19 21:15 48 18 30 02/09/19 21:00 49 16 118/57 (77) 100 02/09/19 21:00 16 Mechanical Ventilator 30 02/09/19 20:30 56 16 108/56 (73) 100 02/09/19 20:15 59 16 113/57 (75) 75 02/09/19 20:00 99.4 73 16 123/56 (78) 100 02/09/19 20:00 30 02/09/19 20:00 16 Mechanical Ventilator 30 02/09/19 20:00 Mechanical Ventilator 02/09/19 20:00 52 02/09/19 19:30 87 15 140/105 (117) 100 02/09/19 19:08 73 17 100 Mechanical Ventilator 30 64 18 30 02/09/19 19:00 61 16 109/64 (79) 100 02/09/19 19:00 16 Mechanical Ventilator 30 02/09/19 18:30 60 16 134/74 (94) 100 02/09/19 18:00 62 16 104/66 (79) 100 02/09/19 17:30 63 16 102/52 (69) 100 02/09/19 17:26 48 16 30 02/09/19 17:00 49 16 109/57 (74) 100 02/09/19 16:30 48 16 100/54 (69) 100 02/09/19 16:00 47 02/09/19 16:00 Mechanical Ventilator 02/09/19 16:00 50 02/09/19 16:00 98.2 47 16 100/63 (75) 100 02/09/19 15:30 47 16 102/60 (74) 100 02/09/19 15:09 48 16 100 Mechanical Ventilator 30 53 17 30 02/09/19 15:00 53 16 101/50 (67) 100 02/09/19 14:30 52 16 109/56 (73) 100 02/09/19 14:00 56 16 106/75 (85) 100 02/09/19 13:40 18 Mechanical Ventilator 50 02/09/19 13:30 60 16 135/55 (81) 100 02/09/19 13:16 59 16 30 Intake and Output 02/09/19 02/10/19 19:00 07:00 Intake Total 750 ml 1535 ml Output Total 1130 ml 655 ml Balance -380 ml 880 ml Intake Free Water 200 ml 100 ml IV Total 25 ml 1075 ml Tube Feeding 495 ml 360 ml Other 30 ml Output Urine Total 1130 ml 655 ml Laboratory Tests 02/10/19 04:00: White Blood Count 16.9H, Red Blood Count 3.16L, Hemoglobin 9.6L, Hematocrit 30.3L, Mean Corpuscular Volume 96, Mean Corpuscular Hemoglobin 30.4, Mean Corpuscular Hemoglobin Concent 31.7L, Red Cell Distribution Width 14.6, Platelet Count 95L, Mean Platelet Volume 7.6, Neutrophils (%) (Auto) , Lymphocytes (%) (Auto) , Monocytes (%) (Auto) , Eosinophils (%) (Auto) , Basophils (%) (Auto) , Differential Total Cells Counted 100, Neutrophils % ( Manual) 91H, Lymphocytes % (Manual) 6L, Monocytes % (Manual) 3, Eosinophils % ( Manual) 0, Basophils % (Manual) 0, Band Neutrophils 0, Platelet Estimate DecreasedL, Platelet Morphology Normal, Anisocytosis 1+, Sodium Level 143, Potassium Level 4.0, Chloride Level 105, Carbon Dioxide Level 37H, Anion Gap 1L , Blood Urea Nitrogen 23H, Creatinine 0.8, Estimat Glomerular Filtration Rate , Glucose Level 76, Calcium Level 8.5, Phosphorus Level 3.0, Magnesium Level 2.1 02/10/19 08:34: Arterial Blood pH 7.454H, Arterial Blood Partial Pressure CO2 57.3*H, Arterial Blood Partial Pressure O2 61.0L, Arterial Blood HCO3 39.3H, Arterial Blood Oxygen Saturation 91.7L, Arterial Blood Base Excess 13.4*H, Delon Test Positive Height (Feet): 5 Height (Inches): 10.00 Weight (Pounds): 167 General Appearance: no apparent distress Cardiovascular: normal rate Respiratory/Chest: decreased breath sounds Abdomen: distended Objective no change Felipe Salmon MD Feb 10, 2019 13:14
--- NOTE | 2019-02-10 14:02 | NUR ---
RESPIRATORY NOTE: ABG drawn and results broadcasted. ANDER Mora and GENNY Mcclain notified.
--- NOTE | 2019-02-10 14:15 | NUR ---
NURSE NOTES: Dr. White aware of patient experiencing agitation and read ABG, ordered to have patient placed on chest percussion Q4hrs, dialudid for pain q4hrs ivp and haldol 0.5mg ivbp q8hrs for agitation,
[2019-02-10] MEDS ORDERED: NS 275ml ONE (17:51)
--- NOTE | 2019-02-10 18:54 | Pulmonolgy Critical Care Note ---
Critical Care - Objective Last 24 Hour Vital Signs Date Time Temp Pulse Resp B/P (MAP) Pulse Ox O2 Delivery O2 Flow Rate FiO2 02/10/19 18:30 92 22 153/86 (108) 100 02/10/19 18:00 91 18 129/85 (100) 100 02/10/19 17:00 105 19 113/91 (98) 100 02/10/19 16:50 104 16 100 Full Face 40 02/10/19 16:00 100 02/10/19 16:00 98.7 108 16 123/84 (97) 100 02/10/19 16:00 Bi-pap 02/10/19 16:00 30 02/10/19 15:00 113 18 149/88 (108) 100 02/10/19 15:00 110 16 99 Full Face 30 112 18 100 Bi-Pap 02/10/19 14:30 109 16 153/93 (113) 100 02/10/19 14:00 108 17 143/66 (91) 100 02/10/19 13:30 110 17 131/84 (100) 100 02/10/19 13:00 109 16 170/82 (111) 100 02/10/19 12:54 111 14 100 Full Face 30 02/10/19 12:30 96 19 180/78 (112) 100 02/10/19 12:00 Bi-pap 02/10/19 12:00 98.7 87 11 134/64 (87) 99 02/10/19 12:00 30 02/10/19 12:00 84 02/10/19 11:30 82 15 142/73 (96) 100 02/10/19 11:15 Bi-pap 30 02/10/19 11:13 82 18 100 Bi-Pap 30 02/10/19 11:06 82 18 100 Full Face 30 79 14 100 Bi-Pap 30 02/10/19 11:00 81 14 133/68 (89) 100 02/10/19 10:45 73 15 120/62 (81) 100 02/10/19 10:30 78 16 129/102 (111) 100 02/10/19 10:15 87 16 136/71 (92) 100 02/10/19 10:00 83 15 100 Facial 30 02/10/19 10:00 85 18 136/70 (92) 100 02/10/19 09:57 30 02/10/19 09:30 79 15 133/84 (100) 100 02/10/19 09:00 75 18 113/95 (101) 100 02/10/19 08:45 77 17 30 02/10/19 08:30 83 16 121/63 (82) 100 02/10/19 08:00 30 02/10/19 08:00 97.8 81 15 147/65 (92) 100 02/10/19 08:00 Mechanical Ventilator 02/10/19 08:00 78 02/10/19 07:40 30 02/10/19 07:39 98 02/10/19 07:30 76 16 111/62 (78) 99 02/10/19 07:15 71 16 100 Mechanical Ventilator 30 02/10/19 07:00 59 16 102/59 (73) 100 02/10/19 06:55 63 18 30 02/10/19 06:30 57 16 123/56 (78) 100 02/10/19 06:00 80 16 128/68 (88) 100 02/10/19 05:37 58 17 Mechanical Ventilator 30 02/10/19 05:30 59 16 130/71 (90) 100 02/10/19 05:00 57 15 148/66 (93) 100 02/10/19 04:30 57 15 91/64 (73) 100 02/10/19 04:00 16 Mechanical Ventilator 30 02/10/19 04:00 Mechanical Ventilator 02/10/19 04:00 62 02/10/19 04:00 30 02/10/19 04:00 99.2 67 16 164/63 (96) 100 02/10/19 03:30 67 16 129/55 (79) 100 02/10/19 03:25 53 17 100 Mechanical Ventilator 30 59 16 30 02/10/19 03:00 16 Mechanical Ventilator 30 02/10/19 03:00 55 16 154/59 (90) 100 02/10/19 02:30 59 16 132/63 (86) 100 02/10/19 02:25 Mechanical Ventilator 30 02/10/19 02:00 102 20 143/75 (97) 100 02/10/19 01:30 102 20 153/70 (97) 100 02/10/19 01:15 91 21 Mechanical Ventilator 30 02/10/19 01:00 55 16 118/58 (78) 100 02/10/19 01:00 16 Mechanical Ventilator 30 02/10/19 00:30 59 16 124/63 (83) 100 02/10/19 00:00 Mechanical Ventilator 02/10/19 00:00 30 02/10/19 00:00 98.7 49 17 131/60 (83) 100 02/10/19 00:00 49 02/10/19 00:00 16 Mechanical Ventilator 30 02/09/19 23:30 58 16 108/59 (75) 100 02/09/19 23:17 53 18 100 Mechanical Ventilator 30 61 18 30 02/09/19 23:00 16 Mechanical Ventilator 30 02/09/19 23:00 52 16 133/58 (83) 100 02/09/19 22:30 58 16 120/62 (81) 100 02/09/19 22:00 68 16 162/53 (89) 100 02/09/19 22:00 16 Mechanical Ventilator 30 02/09/19 21:30 48 16 128/61 (83) 100 02/09/19 21:15 48 18 30 02/09/19 21:00 49 16 118/57 (77) 100 02/09/19 21:00 16 Mechanical Ventilator 30 02/09/19 20:30 56 16 108/56 (73) 100 02/09/19 20:15 59 16 113/57 (75) 75 02/09/19 20:00 99.4 73 16 123/56 (78) 100 02/09/19 20:00 30 02/09/19 20:00 16 Mechanical Ventilator 30 02/09/19 20:00 Mechanical Ventilator 02/09/19 20:00 52 02/09/19 19:30 87 15 140/105 (117) 100 02/09/19 19:08 73 17 100 Mechanical Ventilator 30 64 18 30 02/09/19 19:00 61 16 109/64 (79) 100 02/09/19 19:00 16 Mechanical Ventilator 30 Accucheck: 104 Critical Care - Subjective FI02: 40 Vent Support Breath Rate: 16 Vent Support Mode: CPAP Vent Tidal Volume: 500 Sputum Amount: None PEEP: 5.0 PIP: 16 Tube Feeding Amount: 45 I&O: Intake and Output 02/09/19 02/10/19 18:59 06:59 Intake Total 580 ml 1705 ml Output Total 1180 ml 630 ml Balance -600 ml 1075 ml Intake Free Water 100 ml 200 ml IV Total 1100 ml Tube Feeding 450 ml 405 ml Other 30 ml Output Urine Total 1180 ml 630 ml Subjective: entered in error ET-Tube: 8.0 ET Position: 25 Torie Pereira DO Feb 10, 2019 18:54
--- NOTE | 2019-02-10 19:15 | NUR ---
HAND-OFF: Report given to GENNY Charles. Patient remains on Bipap at 12/5 with fio2 at 30%, no distress noted at this time. patient remains on restraints for pulling on bipap mask and tubing.
--- NOTE | 2019-02-10 19:20 | NUR ---
NURSE NOTES: Patient received from Merlyn RN. Patient extubated to around 0930, currently on BIPAP 12/5, 30% FiO2. Spo2 100%. Patient is on CO2 monitor currently is 42. Patient HR is 95 NSR. Patient is awake but agitated and restless at times, patient is verbal. Afebrile. Patient has Saenz catheter, draining well, below bladder, irrigated Saenz. INOCENCIA PICC line TKO. Patient currently is on bilateral soft wrist restraints for patient safety. Released restraints for passive range of motion and then put them back on. Will continue to monitor.
--- NOTE | 2019-02-10 19:42 | NUR ---
RESPIRATORY NOTE: Received pt. on BIPAP. BIPAP settings are: 12/5, PS 7, rate of 14, FI02 40%. BIPAP plugged on red outlet. Will continue to monitor pt.
--- NOTE | 2019-02-10 20:00 | NUR ---
NURSE NOTES: I called patients son Jah Holly to give him an update on his fathers current condition and the plan of care for the night. I called to confirm DNR status and Jah Holly confirmed to continue DNR status but to re-intubate if patients respiratory status deteriorates while hospitalize during this admission. Will notify Dr. Henry and Dr. Graham about sons decision.
--- NOTE | 2019-02-10 20:01 | NUR ---
NURSE NOTES: Patient is restless and agitated at time. Patient presents as lethargic but able to verbally communicate some words. Patient remains in the BIPAP 12/5, 30%. HR is 93 NSR, 129/51.
--- NOTE | 2019-02-10 20:02 | NUR ---
NURSE NOTES: I called Dr. White and updated him about sons decision to re-intubate if patients has needs to be intubated. I also let Dr. White know that son still wants to continue DNR code status. Updated Dr. White on patients condition. Received order to do an ABG to follow up last ABG that was done.
[2019-02-10] MEDS: Dyna-Hex 2% Top Sol 2oz TOPIC SCH (20:19)
[2019-02-10] MEDS: Miralax 17gm pkt NG SCH (20:19)
[2019-02-10] MEDS ORDERED: fentaNYL Citrate 1000 MCG in NS 100ml IV SCH (20:30)
[2019-02-10] MEDS: fentaNYL Citrate 1000 MCG in NS 100ml IV SCH (20:30)
--- NOTE | 2019-02-10 20:52 | Infectious Diseases Prog Note ---
Assessment/Plan Problems: (1) Aspiration pneumonia Assessment & Plan: with thick secretion , due to pseudomonas aeruginosa , continue meropenem with higher dose for two weeks , aspiration precaution . EOT 02/21/19 (2) Leukocytosis Assessment & Plan: PARTIALLY DUE TO STEROIDS , rule out sepsis, repeated blood culture x2 is negative , continue meropenem and vancomycin empirically pending cultures . IJ line was removed (3) Acute exacerbation of chronic obstructive pulmonary disease (COPD) Assessment & Plan: S/P doxycycline , on steroids and nebulizer treatment as per pulmonary (4) Cardiac arrest Assessment & Plan: etiology ? cardiology eval to rule out cardiac sources and neurology eval to evaluate his brain condition and to rule out anoxic brain injury (5) Chronic hypercapnic respiratory failure Assessment & Plan: S/P cardiac arrest , S/P intubation, monitor in ICU, failing weaning trials so far , pulmonary is following Subjective ROS Limited/Unobtainable: Yes Allergies: Coded Allergies: No Known Allergies (Unverified , 06/05/18) Subjective He is still intubated on mechanical ventilation, awake and responsive to verbal commands , still failing weaning trials , has low grade fever Objective Vital Signs Last 24 Hour Vital Signs Date Time Temp Pulse Resp B/P (MAP) Pulse Ox O2 Delivery O2 Flow Rate FiO2 02/10/19 20:00 30 02/10/19 20:00 94 02/10/19 19:40 100 15 100 Full Face 40 101 15 100 Bi-Pap 02/10/19 19:30 93 15 149/87 (107) 100 02/10/19 19:00 98 14 130/73 (92) 100 02/10/19 18:30 92 22 153/86 (108) 100 02/10/19 18:00 91 18 129/85 (100) 100 02/10/19 17:00 105 19 113/91 (98) 100 02/10/19 16:50 104 16 100 Full Face 40 02/10/19 16:00 100 02/10/19 16:00 98.7 108 16 123/84 (97) 100 02/10/19 16:00 Bi-pap 02/10/19 16:00 30 02/10/19 15:00 113 18 149/88 (108) 100 02/10/19 15:00 110 16 99 Full Face 30 112 18 100 Bi-Pap 02/10/19 14:30 109 16 153/93 (113) 100 02/10/19 14:00 108 17 143/66 (91) 100 02/10/19 13:30 110 17 131/84 (100) 100 02/10/19 13:00 109 16 170/82 (111) 100 02/10/19 12:54 111 14 100 Full Face 30 02/10/19 12:30 96 19 180/78 (112) 100 02/10/19 12:00 Bi-pap 02/10/19 12:00 98.7 87 11 134/64 (87) 99 02/10/19 12:00 30 02/10/19 12:00 84 02/10/19 11:30 82 15 142/73 (96) 100 02/10/19 11:15 Bi-pap 30 02/10/19 11:13 82 18 100 Bi-Pap 30 02/10/19 11:06 82 18 100 Full Face 30 79 14 100 Bi-Pap 30 02/10/19 11:00 81 14 133/68 (89) 100 02/10/19 10:45 73 15 120/62 (81) 100 02/10/19 10:30 78 16 129/102 (111) 100 02/10/19 10:15 87 16 136/71 (92) 100 02/10/19 10:00 83 15 100 Facial 30 02/10/19 10:00 85 18 136/70 (92) 100 02/10/19 09:57 30 02/10/19 09:30 79 15 133/84 (100) 100 02/10/19 09:00 75 18 113/95 (101) 100 02/10/19 08:45 77 17 30 02/10/19 08:30 83 16 121/63 (82) 100 02/10/19 08:00 30 02/10/19 08:00 97.8 81 15 147/65 (92) 100 02/10/19 08:00 Mechanical Ventilator 02/10/19 08:00 78 02/10/19 07:40 30 02/10/19 07:39 98 02/10/19 07:30 76 16 111/62 (78) 99 02/10/19 07:15 71 16 100 Mechanical Ventilator 30 02/10/19 07:00 59 16 102/59 (73) 100 02/10/19 06:55 63 18 30 02/10/19 06:30 57 16 123/56 (78) 100 02/10/19 06:00 80 16 128/68 (88) 100 02/10/19 05:37 58 17 Mechanical Ventilator 30 02/10/19 05:30 59 16 130/71 (90) 100 02/10/19 05:00 57 15 148/66 (93) 100 02/10/19 04:30 57 15 91/64 (73) 100 02/10/19 04:00 16 Mechanical Ventilator 30 02/10/19 04:00 Mechanical Ventilator 02/10/19 04:00 62 02/10/19 04:00 30 02/10/19 04:00 99.2 67 16 164/63 (96) 100 02/10/19 03:30 67 16 129/55 (79) 100 02/10/19 03:25 53 17 100 Mechanical Ventilator 30 59 16 30 02/10/19 03:00 16 Mechanical Ventilator 30 02/10/19 03:00 55 16 154/59 (90) 100 02/10/19 02:30 59 16 132/63 (86) 100 02/10/19 02:25 Mechanical Ventilator 30 02/10/19 02:00 102 20 143/75 (97) 100 02/10/19 01:30 102 20 153/70 (97) 100 02/10/19 01:15 91 21 Mechanical Ventilator 30 02/10/19 01:00 55 16 118/58 (78) 100 02/10/19 01:00 16 Mechanical Ventilator 30 02/10/19 00:30 59 16 124/63 (83) 100 02/10/19 00:00 Mechanical Ventilator 02/10/19 00:00 30 02/10/19 00:00 98.7 49 17 131/60 (83) 100 02/10/19 00:00 49 02/10/19 00:00 16 Mechanical Ventilator 30 02/09/19 23:30 58 16 108/59 (75) 100 02/09/19 23:17 53 18 100 Mechanical Ventilator 30 61 18 30 02/09/19 23:00 16 Mechanical Ventilator 30 02/09/19 23:00 52 16 133/58 (83) 100 02/09/19 22:30 58 16 120/62 (81) 100 02/09/19 22:00 68 16 162/53 (89) 100 02/09/19 22:00 16 Mechanical Ventilator 30 02/09/19 21:30 48 16 128/61 (83) 100 02/09/19 21:15 48 18 30 02/09/19 21:00 49 16 118/57 (77) 100 02/09/19 21:00 16 Mechanical Ventilator 30 Height (Feet): 5 Height (Inches): 10.00 Weight (Pounds): 167 General Appearance: WD/WN, no acute distress HEENT: normocephalic, atraumatic, anicteric, mucous membranes moist, PERRL Respiratory/Chest: chest wall non-tender, no respiratory distress, no accessory muscle use, decreased breath sounds, crackles/rales Cardiovascular: normal peripheral pulses, normal rate, regular rhythm, no gallop/murmur, no JVD Abdomen: normal bowel sounds, soft, non tender, no organomegaly, non distended , no mass, no scars Genitourinary: normal external genitalia Extremities: no cyanosis, no clubbing Skin: no rash, no lesions Neurologic/Psychiatric: alert, responsive Lymphatic: no neck adenopathy, no groin adenopathy Musculoskeletal: normal muscle bulk, no effusion Laboratory Tests Test 02/10/19 04:00 02/10/19 08:34 02/10/19 13:44 White Blood Count 16.9 K/UL (4.8-10.8) H Red Blood Count 3.16 M/UL (4.70-6.10) L Hemoglobin 9.6 G/DL (14.2-18.0) L Hematocrit 30.3 % (42.0-52.0) L Mean Corpuscular Volume 96 FL (80-99) Mean Corpuscular Hemoglobin 30.4 PG (27.0-31.0) Mean Corpuscular Hemoglobin Concent 31.7 G/DL (32.0-36.0) L Red Cell Distribution Width 14.6 % (11.6-14.8) Platelet Count 95 K/UL (150-450) L Mean Platelet Volume 7.6 FL (6.5-10.1) Neutrophils (%) (Auto) % (45.0-75.0) Lymphocytes (%) (Auto) % (20.0-45.0) Monocytes (%) (Auto) % (1.0-10.0) Eosinophils (%) (Auto) % (0.0-3.0) Basophils (%) (Auto) % (0.0-2.0) Differential Total Cells Counted 100 Neutrophils % (Manual) 91 % (45-75) H Lymphocytes % (Manual) 6 % (20-45) L Monocytes % (Manual) 3 % (1-10) Eosinophils % (Manual) 0 % (0-3) Basophils % (Manual) 0 % (0-2) Band Neutrophils 0 % (0-8) Platelet Estimate Decreased L Platelet Morphology Normal Anisocytosis 1+ Sodium Level 143 MMOL/L (136-145) Potassium Level 4.0 MMOL/L (3.5-5.1) Chloride Level 105 MMOL/L (98-107) Carbon Dioxide Level 37 MMOL/L (21-32) H Anion Gap 1 mmol/L (5-15) L Blood Urea Nitrogen 23 mg/dL (7-18) H Creatinine 0.8 MG/DL (0.55-1.30) Estimat Glomerular Filtration Rate mL/min (>60) Glucose Level 76 MG/DL (74-106) Calcium Level 8.5 MG/DL (8.5-10.1) Phosphorus Level 3.0 MG/DL (2.5-4.9) Magnesium Level 2.1 MG/DL (1.8-2.4) Arterial Blood pH 7.454 (7.350-7.450) 7.416 (7.350-7.450) Arterial Blood Partial Pressure CO2 57.3 mmHg (35.0-45.0) *H 63.4 mmHg (35.0-45.0) *H Arterial Blood Partial Pressure O2 61.0 mmHg (75.0-100.0) L 215.8 mmHg (75.0-100.0) H Arterial Blood HCO3 39.3 mmol/L (22.0-26.0) H 39.8 mmol/L (22.0-26.0) H Arterial Blood Oxygen Saturation 91.7 % (95-100) L 98.9 % (95-100) Arterial Blood Base Excess 13.4 (-2-2) *H 13.0 (-2-2) *H Delon Test Positive Positive Current Medications Medications (Trade) Dose Ordered Sig/Brittani Route PRN Reason Start Time Stop Time Status Last Admin Dose Admin Acetaminophen (Tylenol) 650 mg Q4H PRN NG FOR MILD PAIN 01/26/19 10:15 02/25/19 10:14 Albuterol/ Ipratropium (Albuterol/ Ipratropium) 3 ml Q4HRT HHN 02/08/19 15:00 02/13/19 14:59 02/10/19 19:39 Chlorhexidine Gluconate (Renetta-Hex 2%) 1 applic DAILY@2000 TOPIC 02/07/19 20:00 03/09/19 19:59 02/10/19 20:19 Dextrose (Dextrose 50%) 25 ml Q30M PRN IV Hypoglycemia 01/26/19 10:30 02/25/19 10:29 Dextrose (Dextrose 50%) 50 ml Q30M PRN IV Hypoglycemia 01/26/19 10:30 02/25/19 10:29 02/10/19 18:05 Docusate Sodium (Colace) 100 mg BID NG 02/02/19 18:00 03/04/19 17:59 02/10/19 10:21 Dopamine HCl/ Dextrose 250 ml @ 0 mls/hr Q24H IV 02/06/19 09:15 03/08/19 09:14 Enoxaparin Sodium (Lovenox) 40 mg DAILY SUBQ 02/11/19 09:00 03/02/19 08:59 Fentanyl Citrate 1000 mcg/Sodium Chloride 100 ml @ 0 mls/hr Q24H IV 02/10/19 20:30 02/17/19 20:29 Haloperidol Lactate 0.5 mg/ Dextrose 55.1 ml @ 220.4 mls/ hr Q8H PRN IVPB Agitation 02/10/19 14:15 03/12/19 14:14 Hydralazine HCl (Apresoline) 25 mg Q6H PRN NG For High Blood Pressure 02/07/19 17:15 03/06/19 16:59 Hydromorphone HCl (Dilaudid) 0.5 mg Q4H PRN IVP For Pain 02/10/19 14:15 02/17/19 14:14 Insulin Aspart (NovoLOG) Q6HR SUBQ 01/26/19 12:00 02/25/19 11:59 02/09/19 18:29 Meropenem 1 gm/ Sodium Chloride 55 ml @ 110 mls/hr Q8HR IVPB 02/06/19 22:00 02/11/19 21:59 02/10/19 14:47 Methylprednisolone Sodium Succinate (Solu-MEDROL) 30 mg EVERY 12 HOURS IVP 02/10/19 21:00 03/12/19 20:59 02/10/19 20:19 Pantoprazole (Protonix) 40 mg Q12HR IVP 02/03/19 21:00 02/25/19 10:59 02/10/19 20:19 Polyethylene Glycol (Miralax) 17 gm BEDTIME NG 02/07/19 21:00 03/03/19 20:59 02/09/19 20:26 Vancomycin HCl (Vanco rx to dose) 1 ea DAILY PRN MISC Per rx protocol 02/06/19 20:00 03/08/19 19:59 Vancomycin HCl 750 mg/Sodium Chloride 275 ml @ 183.333 mls/hr Q8HR@0400,1200,2000 IVPB 02/08/19 20:00 02/13/19 19:59 02/10/19 20:19 [place] Orlando M.D. Feb 10, 2019 20:52
--- NOTE | 2019-02-10 21:30 | NUR ---
NURSE NOTES: Called Dr. Graham and informed him ABG result. MD said to continue with current BIPAP settings and have ABG done in the morning.
[2019-02-10] MEDS ORDERED: Meropenem 2 GM in NS 55 ML IVPB SCH (22:00)
--- NOTE | 2019-02-10 22:00 | NUR ---
NURSE NOTES: Patient repositioned and given oral care. Patient remains on BIPAP 12/5, 30% FiO2. Spo2 95%. Patient is agitated and restless at times. Patient has BM, patient was cleaned.
--- NOTE | 2019-02-10 22:00 | Cardiology Progress Note ---
Assessment/Plan Assessment/Plan 1. Cardiopulmonary arrest due to anoxia, 2D echo reveals normal LVEF. 2. Non-STEMI, conservative management in face of DNR. 3. Moderate aortic regurgitation. 4. Acute respiratory failure, extubated, on bipap mask, ABG shows hypercarbic respiratory failure. 5. Hypernatremia, better with hypotonic fluids. 6. Aspiration pneumonia. Subjective Subjective Extubated earlier today, became slightly tachypneic and tachycardic. Was palced on bipap mask. ABG revealed worsening of PCO2. Sinus rhythm at rate of 91. Objective Last 24 Hour Vital Signs Date Time Temp Pulse Resp B/P (MAP) Pulse Ox O2 Delivery O2 Flow Rate FiO2 02/10/19 21:00 91 13 123/49 (73) 95 02/10/19 20:30 93 13 120/70 (87) 96 02/10/19 20:00 98.0 102 15 114/79 (91) 97 02/10/19 20:00 30 02/10/19 20:00 94 02/10/19 20:00 Bi-pap 02/10/19 19:40 100 15 100 Full Face 40 101 15 100 Bi-Pap 02/10/19 19:30 93 15 149/87 (107) 100 02/10/19 19:00 98 14 130/73 (92) 100 02/10/19 18:30 92 22 153/86 (108) 100 02/10/19 18:00 91 18 129/85 (100) 100 02/10/19 17:00 105 19 113/91 (98) 100 02/10/19 16:50 104 16 100 Full Face 40 02/10/19 16:00 100 02/10/19 16:00 98.7 108 16 123/84 (97) 100 02/10/19 16:00 Bi-pap 02/10/19 16:00 30 02/10/19 15:00 113 18 149/88 (108) 100 02/10/19 15:00 110 16 99 Full Face 30 112 18 100 Bi-Pap 02/10/19 14:30 109 16 153/93 (113) 100 02/10/19 14:00 108 17 143/66 (91) 100 02/10/19 13:30 110 17 131/84 (100) 100 02/10/19 13:00 109 16 170/82 (111) 100 02/10/19 12:54 111 14 100 Full Face 30 02/10/19 12:30 96 19 180/78 (112) 100 02/10/19 12:00 Bi-pap 02/10/19 12:00 98.7 87 11 134/64 (87) 99 02/10/19 12:00 30 02/10/19 12:00 84 02/10/19 11:30 82 15 142/73 (96) 100 02/10/19 11:15 Bi-pap 30 02/10/19 11:13 82 18 100 Bi-Pap 30 02/10/19 11:06 82 18 100 Full Face 30 79 14 100 Bi-Pap 30 02/10/19 11:00 81 14 133/68 (89) 100 02/10/19 10:45 73 15 120/62 (81) 100 02/10/19 10:30 78 16 129/102 (111) 100 02/10/19 10:15 87 16 136/71 (92) 100 02/10/19 10:00 83 15 100 Facial 30 02/10/19 10:00 85 18 136/70 (92) 100 02/10/19 09:57 30 02/10/19 09:30 79 15 133/84 (100) 100 02/10/19 09:00 75 18 113/95 (101) 100 02/10/19 08:45 77 17 30 02/10/19 08:30 83 16 121/63 (82) 100 02/10/19 08:00 30 02/10/19 08:00 97.8 81 15 147/65 (92) 100 02/10/19 08:00 Mechanical Ventilator 02/10/19 08:00 78 02/10/19 07:40 30 02/10/19 07:39 98 02/10/19 07:30 76 16 111/62 (78) 99 02/10/19 07:15 71 16 100 Mechanical Ventilator 30 02/10/19 07:00 59 16 102/59 (73) 100 02/10/19 06:55 63 18 30 02/10/19 06:30 57 16 123/56 (78) 100 02/10/19 06:00 80 16 128/68 (88) 100 02/10/19 05:37 58 17 Mechanical Ventilator 30 02/10/19 05:30 59 16 130/71 (90) 100 02/10/19 05:00 57 15 148/66 (93) 100 02/10/19 04:30 57 15 91/64 (73) 100 02/10/19 04:00 16 Mechanical Ventilator 30 02/10/19 04:00 Mechanical Ventilator 02/10/19 04:00 62 02/10/19 04:00 30 02/10/19 04:00 99.2 67 16 164/63 (96) 100 02/10/19 03:30 67 16 129/55 (79) 100 02/10/19 03:25 53 17 100 Mechanical Ventilator 30 59 16 30 02/10/19 03:00 16 Mechanical Ventilator 30 02/10/19 03:00 55 16 154/59 (90) 100 02/10/19 02:30 59 16 132/63 (86) 100 02/10/19 02:25 Mechanical Ventilator 30 02/10/19 02:00 102 20 143/75 (97) 100 02/10/19 01:30 102 20 153/70 (97) 100 02/10/19 01:15 91 21 Mechanical Ventilator 30 02/10/19 01:00 55 16 118/58 (78) 100 02/10/19 01:00 16 Mechanical Ventilator 30 02/10/19 00:30 59 16 124/63 (83) 100 02/10/19 00:00 Mechanical Ventilator 02/10/19 00:00 30 02/10/19 00:00 98.7 49 17 131/60 (83) 100 02/10/19 00:00 49 02/10/19 00:00 16 Mechanical Ventilator 30 02/09/19 23:30 58 16 108/59 (75) 100 02/09/19 23:17 53 18 100 Mechanical Ventilator 30 61 18 30 02/09/19 23:00 16 Mechanical Ventilator 30 02/09/19 23:00 52 16 133/58 (83) 100 02/09/19 22:30 58 16 120/62 (81) 100 02/09/19 22:00 68 16 162/53 (89) 100 02/09/19 22:00 16 Mechanical Ventilator 30 Intake and Output 02/09/19 02/10/19 18:59 06:59 Intake Total 580 ml 1705 ml Output Total 1180 ml 630 ml Balance -600 ml 1075 ml Intake Free Water 100 ml 200 ml IV Total 1100 ml Tube Feeding 450 ml 405 ml Other 30 ml Output Urine Total 1180 ml 630 ml 2D Echo: LVEF 55%, moderate AR Laboratory Tests Test 02/10/19 04:00 02/10/19 08:34 02/10/19 13:44 02/10/19 21:00 White Blood Count 16.9 K/UL (4.8-10.8) H Red Blood Count 3.16 M/UL (4.70-6.10) L Hemoglobin 9.6 G/DL (14.2-18.0) L Hematocrit 30.3 % (42.0-52.0) L Mean Corpuscular Volume 96 FL (80-99) Mean Corpuscular Hemoglobin 30.4 PG (27.0-31.0) Mean Corpuscular Hemoglobin Concent 31.7 G/DL (32.0-36.0) L Red Cell Distribution Width 14.6 % (11.6-14.8) Platelet Count 95 K/UL (150-450) L Mean Platelet Volume 7.6 FL (6.5-10.1) Neutrophils (%) (Auto) % (45.0-75.0) Lymphocytes (%) (Auto) % (20.0-45.0) Monocytes (%) (Auto) % (1.0-10.0) Eosinophils (%) (Auto) % (0.0-3.0) Basophils (%) (Auto) % (0.0-2.0) Differential Total Cells Counted 100 Neutrophils % (Manual) 91 % (45-75) H Lymphocytes % (Manual) 6 % (20-45) L Monocytes % (Manual) 3 % (1-10) Eosinophils % (Manual) 0 % (0-3) Basophils % (Manual) 0 % (0-2) Band Neutrophils 0 % (0-8) Platelet Estimate Decreased L Platelet Morphology Normal Anisocytosis 1+ Sodium Level 143 MMOL/L (136-145) Potassium Level 4.0 MMOL/L (3.5-5.1) Chloride Level 105 MMOL/L (98-107) Carbon Dioxide Level 37 MMOL/L (21-32) H Anion Gap 1 mmol/L (5-15) L Blood Urea Nitrogen 23 mg/dL (7-18) H Creatinine 0.8 MG/DL (0.55-1.30) Estimat Glomerular Filtration Rate mL/min (>60) Glucose Level 76 MG/DL (74-106) Calcium Level 8.5 MG/DL (8.5-10.1) Phosphorus Level 3.0 MG/DL (2.5-4.9) Magnesium Level 2.1 MG/DL (1.8-2.4) Arterial Blood pH 7.454 (7.350-7.450) 7.416 (7.350-7.450) 7.486 (7.350-7.450) Arterial Blood Partial Pressure CO2 57.3 mmHg (35.0-45.0) *H 63.4 mmHg (35.0-45.0) *H 49.9 mmHg (35.0-45.0) H Arterial Blood Partial Pressure O2 61.0 mmHg (75.0-100.0) L 215.8 mmHg (75.0-100.0) H 55.0 mmHg (75.0-100.0) L Arterial Blood HCO3 39.3 mmol/L (22.0-26.0) H 39.8 mmol/L (22.0-26.0) H 36.8 mmol/L (22.0-26.0) H Arterial Blood Oxygen Saturation 91.7 % (95-100) L 98.9 % (95-100) 90.1 % (95-100) L Arterial Blood Base Excess 13.4 (-2-2) *H 13.0 (-2-2) *H 11.9 (-2-2) *H Delon Test Positive Positive Positive Objective HEENT: Atraumatic, arousable, orally intubated, conjunctival pallor. NECK: Cannot assess JVD, no carotid bruit. LUNGS: Bilateral breath sounds. Few rhonchi. No wheezing. CARDIAC: Regular rhythm and rate. Normal S1 and S2. No murmurs, gallops or rubs. ABDOMEN: Soft, non-distended, + BS. EXTREMITIES: No edema, clubbing or cyanosis. Lv Zuniga MD Feb 10, 2019 22:00
[2019-02-10] MEDS: Meropenem 2 GM in NS 110 ML IVPB SCH (22:27)
[2019-02-10] MEDS: Hydromorphone 0.5mg/0.5ml inj IVP PRN (23:25)
[2019-02-11] VITALS (31 sets, daily range): BP systolic 83–181; BP diastolic 40–120
--- NOTE | 2019-02-11 | NUR ---
NURSE NOTES: Patient repositioned and given oral care. Patient is more calm and relaxed at this time. Vitals remains stable. Glucose was 61, D50 IVP was given. Will recheck again later.
--- NOTE | 2019-02-11 00:30 | NUR ---
NURSE NOTES: Rechecked glucose after D50 was given. Glucose now is 122
--- NOTE | 2019-02-11 02:00 | NUR ---
NURSE NOTES: Central Line dressing changes using aseptic technique.
[2019-02-11] MEDS: D5W IVPB PRN ×2 (02:05→13:30)
[2019-02-11] MEDS: HALOPERIDOL LACTATE IVPB PRN ×2 (02:05→13:30)
--- NOTE | 2019-02-11 02:05 | NUR ---
NURSE NOTES: Patient restless and agitated. Gave Haldol and repositioned patient, applied new linen also. No BM. Oral care was also given. Passive range of motion provided.
--- NOTE | 2019-02-11 02:19 | NUR ---
NURSE NOTES: Removed the Fentanyl gtt bag and tubing. Amount left in bag was ~150ml plus 23ml in the tubing totaling ~173ml of Fentanyl left. Placed Fentanyl bag and tubing i proper container.
--- NOTE | 2019-02-11 03:00 | NUR ---
NURSE NOTES: Patient continues to be restless and agitated at times. Vitals however maintain stable, HR NSR, Blood pressure stable, afebrile, refer to vital logs for trends. Patient repositioned for maximization of airway and placed high-fowlers. Released restraints for active range of motion and then placed them back on. Patient does appear lightly lethargic at times but remains verbal. Oral care provided. Patient does opens eyes spontaneously and tracks. Bed remains locked and at lowest position. Patient remains in eye view of RN and bed alarm is on.
[2019-02-11] MEDS: Albuterol/Ipratropium 3ml neb HHN SCH ×6 (03:10→23:01)
[2019-02-11] MEDS: Hydromorphone 0.5mg/0.5ml inj IVP PRN ×2 (04:07→10:49)
[2019-02-11] MEDS: Vancomycin 750mg/NS 275ml IVPB SCH ×6 (04:07→20:10)
--- NOTE | 2019-02-11 04:07 | NUR ---
NURSE NOTES: Patient continues to be restless and agitated, trying to remove BIPAP and get out of bed. Dilaudid 0.5mg IVP given. Vancomycin IVPB hung. Patient repositioned and given oral care.
[2019-02-11 05:26] LABS: HEMATOCRIT 31.4 % (42.0-52.0); HEMOGLOBIN 9.9 G/DL (14.2-18.0); MEAN CORPUSCULAR VOLUME 96 FL (80-99); PLATELET COUNT 109 K/UL (150-450); RED BLOOD COUNT 3.27 M/UL (4.70-6.10); RED CELL DISTRIBUTION WIDTH 14.7 % (11.6-14.8); WHITE BLOOD COUNT 17.1 K/UL (4.8-10.8)
[2019-02-11 05:33] LABS: ANION GAP 1 mmol/L (5-15); BLOOD UREA NITROGEN 19 mg/dL (7-18); CALCIUM 8.5 MG/DL (8.5-10.1); CARBON DIOXIDE 39 MMOL/L (21-32); CHLORIDE 103 MMOL/L (98-107); CREATININE 0.8 MG/DL (0.55-1.30); PHOSPHORUS 2.4 MG/DL (2.5-4.9); POTASSIUM 3.7 MMOL/L (3.5-5.1); SODIUM 143 MMOL/L (136-145)
[2019-02-11] MEDS: Meropenem 2 GM in NS 110 ML IVPB SCH ×3 (05:35→22:29)
[2019-02-11] MEDS: NovoLOG Insulin Flexpen SUBQ SCH ×4 (06:00→23:57)
--- NOTE | 2019-02-11 06:14 | NUR ---
NURSE NOTES: Patient was changed and repositioned. Patients Vitals have remained stable throughout the night. Patient continues to be agitated and restless at times. Patient able to verbalize words but sometimes incomprehensible. Glucose was 113, no coverage provided. Patient repositioned high-fowlers to maximize respiratory effort. Remains on BIPAP with same settings. Patient kept clean and dry.
--- NOTE | 2019-02-11 07:00 | NUR ---
RESPIRATORY NOTES: Received Patient on BIPAP 12/ PS +7 FIO2 30% BUR 14. Patient currently on full face mask, tape in place. No redness or skin breakdown noted. Patient alert and awake and tolerating BIPAP well. BIPAP plugged into red outlet. Alarms are on and audible. Will continue to monitor throughout the day.
--- NOTE | 2019-02-11 07:00 | NUR ---
HAND-OFF: Report given to Beverly Lira RN.
--- NOTE | 2019-02-11 07:01 | NUR ---
NURSE NOTES: Received patient from GENNY Charles. Patient blood pressure 131/62, HR 69, Temp 98.0, SpO2 100%, and RR 16. Patient sleeping at this time. Patient restrained. Patient reported to be agitated and trying to pull all lines and BiPAP mask off and trying to get out of the bed. Patient arousable to name and touch. Patient mumbles but speech is unintelligible at this time. Will continue to monitor and assess speech when patient more awake. Patient on BiPAP for respiratory distress with setting of 12/5 and 30% FiO2. Patient tolerating setting with RR 16 and SpO2 100%. ABG done last night with abnormal result reported to Dr White. Repeat ABG ordered for this morning. Will follow up with RT regarding ABG result. Patient has NGT in the right nares that is patent and reverified with auscultation and aspiration at this time. Patient has tube feeding of Vital AF running at 45mL/hr at this time with no residual. Patient has been having diarrhea. Will hold stool softener this morning. Patient has bilateral upper extremity pitting edema +3 and lower extremity pitting edema +2. Patient upper extremities weeping at this time. Patient blood sugar was low over night. Will ask MD if we can change the feeding or add IV fluid for this patient. Patient has go for urine retention that is patent, asymptomatic, and draining clear yellow urine at this time. Patient has right upper arm PICC that is patent, asymptomatic, dressing intact, and saline locked at this time. Dressing changed last night. Patient has phosphorus of 2.4 this morning. Will follow up with MD regarding coverage. Patient bed in low position with bed alarm on and call light in reach at this time.
--- NOTE | 2019-02-11 08:48 | NUR ---
NURSE NOTES: Reported ABG result for this morning to Dr White. He ordered BiPAP settings to remain the same but changed to PRN and QHS rather than continuous. Order changed at this time.
[2019-02-11] MEDS: Docusate 100mg tablet NG SCH ×2 (09:00→17:18)
[2019-02-11] MEDS ORDERED: Enoxaparin 40mg Inj SUBQ SCH (09:00)
[2019-02-11] MEDS: DOPamine 400mg/250ml 250 ML IV SCH (09:15)
[2019-02-11 09:50] LABS: ALANINE AMINOTRANSFERASE 49 U/L (12-78); ALBUMIN 2.3 G/DL (3.4-5.0); ALKALINE PHOSPHATASE 63 U/L (46-116); ASPARTATE AMINO TRANSFERASE 32 U/L (15-37); BILIRUBIN,DIRECT 0.2 MG/DL (0.0-0.3); BILIRUBIN,TOTAL 0.7 MG/DL (0.2-1.0)
--- NOTE | 2019-02-11 09:51 | NUR ---
NURSE NOTES: Spoke with Dr Zuniga on the phone. Reported acute DVT of the right internal jugular vein. He ordered Eliquis 5mcg BID PO. Will place order now. Telephone order read back and verified.
[2019-02-11] MEDS: Solu-MEDROL 40mg Inj IVP SCH ×2 (10:18→21:15)
[2019-02-11] MEDS: Pantoprazole Inj IVP SCH ×2 (10:18→21:15)
[2019-02-11] MEDS ORDERED: Eliquis 5mg tablet ORAL SCH (11:00)
[2019-02-11] MEDS ORDERED: Potassium Phosphate 20 MM in NS 275 ML IV ONE (11:00)
--- NOTE | 2019-02-11 11:00 | NUR ---
RD ASSESSMENT & RECOMMENDATIONS SEE CARE ACTIVITY FOR COMPLETE ASSESSMENT DAILY ESTIMATED NEEDS: Needs based on Pulmonary, 61kg 25-30 kcals/kg 5182-7223 total kcals 1-1.5 g protein/kg 61-92 g total protein 25-30 mL/kg 4589-9208 total fluid mLs NUTRITION DIAGNOSIS: * Swallowing difficulty R/T respiratory status as evidenced by pt s/p cardiac arrest, now s/p extubation, remains on NGT feeds. (UPDATED) (CURRENT TF:Vital 1.2 @55ml/hr x 24 hrs) PO DIET RECOMMENDATIONS: ->GATEKEEPER eval upon extubation ENTERAL NUTRITION RECOMMENDATIONS--->>> REC TF CHANGE TO Glucerna 1.5 @45ml/hr x24 hrs to provide 1080ml, 1620 kcal, 89g pro, 820ml free H2O - REC TF CHANGE TO GLUCERNA 1.5 FOR LOW VOLUME FEEDING. - Start @25ml/hr for 6 hrs, advance as tolerated 10ml q4-6 hrs to goal - Flush per MD, HOB over 30 degrees. ADDITIONAL RECOMMENDATIONS: * GATEKEEPER eval for appropriate texture s/p extubation * Calibrated bed scale wts * Monitor BGs closely while on steroidal med. * Lytes, daily, replete as needed (phos) * TF RECS ABOVE . .
--- NOTE | 2019-02-11 11:34 | General Progress Note ---
Assessment/Plan Status: stable Assessment/Plan: s: Post extubation on BIPAP O: Awake , sleepy , following the command, e PHYSICAL EXAMINATION: GENERAL: An elderly male, lying in bed, not in acute distress. HEENT: Normocephalic and atraumatic. Pupils slightly responsive to light. Unable to assess oral mucosa with E-tube in place. NECK: Supple. No lymphadenopathy.CARDIOVASCULAR: He is tachycardic. S1, S2 normal. No murmur can be heard. LUNGS: Diminished breathing sounds at the bases. No wheezing or rhonchi. Normal breathing effort. ABDOMEN: Soft, nontender, and nondistended. Normal bowel sounds. No hepatosplenomegaly or ascites. No organomegaly.EXTREMITIES: No edema or cyanosis. labs: dated Feb 08 reviewed Meds: reviewed and reconciled ASSESSMENT AND PLAN: 1. Vent dependent respiratory failure. post extubation 2. Sepsis- Gram negative HCA PNA. Stable 3. Chronic obstructive pulmonary disease, end-stage, oxygen-dependent. 3. Cardiopulmonary arrest, status post resuscitation x2. 4. Hypertension. 5. Abnormal blood sugar. 6. Anemia. 7. Abn Trop: likely secondary to #3 7. GI and DVT prophylaxis. PLAN OF CARE: NOtes from pulmonary and Cardiology reviewed On NOAC, Subjective Allergies: Coded Allergies: No Known Allergies (Unverified , 06/05/18) Objective Last 24 Hour Vital Signs Date Time Temp Pulse Resp B/P (MAP) Pulse Ox O2 Delivery O2 Flow Rate FiO2 02/11/19 11:20 66 16 99 Full Face 30 66 16 99 Bi-Pap 02/11/19 09:15 181/120 02/11/19 08:40 76 16 100 Full Face 30 02/11/19 08:00 Bi-pap 02/11/19 08:00 30 02/11/19 08:00 98.0 85 16 131/74 (93) 100 02/11/19 07:12 63 17 100 Full Face 30 63 17 100 Bi-Pap 02/11/19 07:00 69 15 131/62 (85) 100 02/11/19 06:00 67 20 121/66 (84) 100 02/11/19 05:14 81 16 100 Full Face 30 Bi-Pap 02/11/19 05:00 68 17 88/69 (75) 100 02/11/19 04:00 Bi-pap 02/11/19 04:00 99.4 75 15 113/72 (86) 100 02/11/19 04:00 30 02/11/19 04:00 86 02/11/19 03:10 100 15 100 Full Face 30 81 17 100 Bi-Pap 02/11/19 03:00 75 16 138/71 (93) 100 02/11/19 02:00 85 16 114/68 (83) 100 02/11/19 01:00 88 17 138/77 (97) 100 02/11/19 00:39 100 15 100 Full Face 30 Bi-Pap 02/11/19 00:00 Bi-pap 02/11/19 00:00 69 02/11/19 00:00 97.9 86 16 139/65 (89) 100 02/11/19 00:00 30 02/10/19 23:47 72 19 100 Full Face 30 73 21 100 Bi-Pap 02/10/19 23:00 70 12 137/76 (96) 100 02/10/19 22:00 92 19 173/81 (111) 100 02/10/19 21:00 91 13 123/49 (73) 95 02/10/19 21:00 100 15 100 Full Face 25 Bi-Pap 02/10/19 20:30 93 13 120/70 (87) 96 02/10/19 20:00 98.0 102 15 114/79 (91) 97 02/10/19 20:00 30 02/10/19 20:00 94 02/10/19 20:00 Bi-pap 02/10/19 19:40 100 15 100 Full Face 40 101 15 100 Bi-Pap 02/10/19 19:30 93 15 149/87 (107) 100 02/10/19 19:00 98 14 130/73 (92) 100 02/10/19 18:30 92 22 153/86 (108) 100 02/10/19 18:00 91 18 129/85 (100) 100 02/10/19 17:00 105 19 113/91 (98) 100 02/10/19 16:50 104 16 100 Full Face 40 02/10/19 16:00 100 02/10/19 16:00 98.7 108 16 123/84 (97) 100 02/10/19 16:00 Bi-pap 02/10/19 16:00 30 02/10/19 15:00 113 18 149/88 (108) 100 02/10/19 15:00 110 16 99 Full Face 30 112 18 100 Bi-Pap 02/10/19 14:30 109 16 153/93 (113) 100 02/10/19 14:00 108 17 143/66 (91) 100 02/10/19 13:30 110 17 131/84 (100) 100 02/10/19 13:00 109 16 170/82 (111) 100 02/10/19 12:54 111 14 100 Full Face 30 02/10/19 12:30 96 19 180/78 (112) 100 02/10/19 12:00 Bi-pap 02/10/19 12:00 98.7 87 11 134/64 (87) 99 02/10/19 12:00 30 02/10/19 12:00 84 Intake and Output 02/10/19 02/11/19 19:00 07:00 Intake Total 910 ml 1465.1 ml Output Total 2375 ml 985 ml Balance -1465 ml 480.1 ml Intake Free Water 100 ml 100 ml IV Total 330 ml 825.1 ml Tube Feeding 450 ml 540 ml Other 30 ml Output Urine Total 2375 ml 985 ml # Bowel Movements 1 1 Laboratory Tests 02/10/19 13:44: Arterial Blood pH 7.416, Arterial Blood Partial Pressure CO2 63.4*H, Arterial Blood Partial Pressure O2 215.8H, Arterial Blood HCO3 39.8H, Arterial Blood Oxygen Saturation 98.9, Arterial Blood Base Excess 13.0*H, Delon Test Positive 02/10/19 21:00: Arterial Blood pH 7.486H, Arterial Blood Partial Pressure CO2 49.9H, Arterial Blood Partial Pressure O2 55.0L, Arterial Blood HCO3 36.8H, Arterial Blood Oxygen Saturation 90.1L, Arterial Blood Base Excess 11.9*H, Delon Test Positive 02/11/19 04:00: White Blood Count 17.1H, Red Blood Count 3.27L, Hemoglobin 9.9L, Hematocrit 31.4L, Mean Corpuscular Volume 96, Mean Corpuscular Hemoglobin 30.4, Mean Corpuscular Hemoglobin Concent 31.6L, Red Cell Distribution Width 14.7, Platelet Count 109L, Mean Platelet Volume 7.0, Neutrophils (%) (Auto) , Lymphocytes (%) (Auto) , Monocytes (%) (Auto) , Eosinophils (%) (Auto) , Basophils (%) (Auto) , Differential Total Cells Counted 100, Neutrophils % ( Manual) 95H, Lymphocytes % (Manual) 4L, Monocytes % (Manual) 1, Eosinophils % ( Manual) 0, Basophils % (Manual) 0, Band Neutrophils 0, Platelet Estimate DecreasedL, Platelet Morphology Normal, Hypochromasia 1+, Anisocytosis 1+, Sodium Level 143, Potassium Level 3.7, Chloride Level 103, Carbon Dioxide Level 39H, Anion Gap 1L, Blood Urea Nitrogen 19H, Creatinine 0.8, Estimat Glomerular Filtration Rate , Glucose Level 125H, Calcium Level 8.5, Phosphorus Level 2.4L, Magnesium Level 1.9, Total Bilirubin 0.7, Direct Bilirubin 0.2, Aspartate Amino Transf (AST/SGOT) 32, Alanine Aminotransferase (ALT/SGPT) 49, Alkaline Phosphatase 63, Total Protein 5.1L, Albumin 2.3L 02/11/19 08:25: Arterial Blood pH 7.460H, Arterial Blood Partial Pressure CO2 51.5H, Arterial Blood Partial Pressure O2 75.8, Arterial Blood HCO3 35.8H, Arterial Blood Oxygen Saturation 94.3L, Arterial Blood Base Excess 10.6*H, Delon Test Positive Height (Feet): 5 Height (Inches): 10.00 Weight (Pounds): 161 Brianne Henry MD Feb 11, 2019 11:34
--- NOTE | 2019-02-11 12:00 | NUR ---
NURSE NOTES: Patient blood pressure 133/64, HR 71, Temp 98.2, SpO2 100%, and RR 17. Patient sleeping at this time. Patient remains restrained. When awake, patient pulls at everything he can get his hands on. Patient is back on BiPAP with setting of 12/5 and 30% FiO2. Patient was taken off of BiPAP for about an hour this morning. He became agitated and tried to get out of bed and started to yell that he needed help and was showing signs of respiratory distress and increased work of breathing. Patient tolerating BiPAP setting with RR 17 and SpO2 100%. NGT remains in the right nares that is patent and reverified with auscultation and aspiration at this time. tube feeding of Vital AF running at 45mL/hr at this time with no residual. Notified painter touch up that the patient had episode of hypoglycemia over night. She reported that she would recommend a different tube feeding. Will follow up. Dr Henry ordered a change in insulin sliding scale due to hypoglycemia. Patient now on sensitive sliding scale. bilateral upper extremity pitting edema +3 and lower extremity pitting edema +2. Patient upper extremities still weeping at this time. go remains patent, asymptomatic, and draining clear yellow urine at this time. Right upper arm PICC patent, asymptomatic, dressing pulling up on the edges. Will change dressing. Phosphorous replaced by Dr Salmon with 20mmol potassium phosphate. Patient bed in low position with bed alarm on and call light in reach at this time. Patient cleaned at this time post bowel movement. Patient has diarrhea. Colace held this morning.
--- NOTE | 2019-02-11 13:12 | Infectious Diseases Prog Note ---
Assessment/Plan Problems: (1) Aspiration pneumonia Assessment & Plan: due to pseudomonas aeruginosa , continue meropenem with higher dose for two weeks , aspiration precaution . EOT 02/21/19 (2) Leukocytosis Assessment & Plan: PARTIALLY DUE TO STEROIDS , rule out sepsis, repeated blood culture x2 is negative , continue meropenem and vancomycin empirically pending cultures . IJ line was removed. taper steroids (3) Acute exacerbation of chronic obstructive pulmonary disease (COPD) Assessment & Plan: S/P doxycycline , on steroids and nebulizer treatment as per pulmonary (4) Cardiac arrest Assessment & Plan: etiology ? cardiology eval to rule out cardiac sources and neurology eval to evaluate his brain condition and to rule out anoxic brain injury (5) Chronic hypercapnic respiratory failure Assessment & Plan: S/P cardiac arrest , S/P intubation, monitor in ICU, failing weaning trials so far , pulmonary is following Subjective ROS Limited/Unobtainable: Yes Allergies: Coded Allergies: No Known Allergies (Unverified , 06/05/18) Subjective He was extubated , on high flow oxygen, awake and responsive to verbal commands , no fever or chills Objective Vital Signs Last 24 Hour Vital Signs Date Time Temp Pulse Resp B/P (MAP) Pulse Ox O2 Delivery O2 Flow Rate FiO2 02/11/19 12:42 64 16 100 Full Face 30 02/11/19 12:00 30 02/11/19 12:00 Bi-pap 02/11/19 12:00 74 02/11/19 11:20 66 16 99 Full Face 30 66 16 99 Bi-Pap 02/11/19 11:00 68 17 124/66 (85) 100 02/11/19 10:00 76 16 181/120 (140) 100 02/11/19 09:15 181/120 02/11/19 09:00 76 18 139/70 (93) 100 02/11/19 08:40 76 16 100 Full Face 30 02/11/19 08:00 Bi-pap 02/11/19 08:00 30 02/11/19 08:00 98.0 85 16 131/74 (93) 100 02/11/19 08:00 69 02/11/19 07:12 63 17 100 Full Face 30 63 17 100 Bi-Pap 02/11/19 07:00 69 15 131/62 (85) 100 02/11/19 06:00 67 20 121/66 (84) 100 02/11/19 05:14 81 16 100 Full Face 30 Bi-Pap 02/11/19 05:00 68 17 88/69 (75) 100 02/11/19 04:00 Bi-pap 02/11/19 04:00 99.4 75 15 113/72 (86) 100 02/11/19 04:00 30 02/11/19 04:00 86 02/11/19 03:10 100 15 100 Full Face 30 81 17 100 Bi-Pap 02/11/19 03:00 75 16 138/71 (93) 100 02/11/19 02:00 85 16 114/68 (83) 100 02/11/19 01:00 88 17 138/77 (97) 100 02/11/19 00:39 100 15 100 Full Face 30 Bi-Pap 02/11/19 00:00 Bi-pap 02/11/19 00:00 69 02/11/19 00:00 97.9 86 16 139/65 (89) 100 02/11/19 00:00 30 02/10/19 23:47 72 19 100 Full Face 30 73 21 100 Bi-Pap 02/10/19 23:00 70 12 137/76 (96) 100 02/10/19 22:00 92 19 173/81 (111) 100 02/10/19 21:00 91 13 123/49 (73) 95 02/10/19 21:00 100 15 100 Full Face 25 Bi-Pap 02/10/19 20:30 93 13 120/70 (87) 96 02/10/19 20:00 98.0 102 15 114/79 (91) 97 02/10/19 20:00 30 02/10/19 20:00 94 02/10/19 20:00 Bi-pap 02/10/19 19:40 100 15 100 Full Face 40 101 15 100 Bi-Pap 02/10/19 19:30 93 15 149/87 (107) 100 02/10/19 19:00 98 14 130/73 (92) 100 02/10/19 18:30 92 22 153/86 (108) 100 02/10/19 18:00 91 18 129/85 (100) 100 02/10/19 17:00 105 19 113/91 (98) 100 02/10/19 16:50 104 16 100 Full Face 40 02/10/19 16:00 100 8/25/19 16:00 98.7 108 16 123/84 (97) 100 02/10/19 16:00 Bi-pap 02/10/19 16:00 30 02/10/19 15:00 113 18 149/88 (108) 100 02/10/19 15:00 110 16 99 Full Face 30 112 18 100 Bi-Pap 02/10/19 14:30 109 16 153/93 (113) 100 02/10/19 14:00 108 17 143/66 (91) 100 02/10/19 13:30 110 17 131/84 (100) 100 Height (Feet): 5 Height (Inches): 10.00 Weight (Pounds): 161 General Appearance: WD/WN, no acute distress HEENT: normocephalic, atraumatic, anicteric, mucous membranes moist, PERRL, EOMI, pharynx normal, supple, no JVD Respiratory/Chest: chest wall non-tender, lungs clear, normal breath sounds, no respiratory distress, no accessory muscle use Cardiovascular: normal peripheral pulses, normal rate, regular rhythm, no gallop/murmur, no JVD Abdomen: normal bowel sounds, soft, non tender, no organomegaly, non distended , no mass, no scars Extremities: no cyanosis, no clubbing Skin: no rash, no lesions Neurologic/Psychiatric: alert, responsive Lymphatic: no neck adenopathy, no groin adenopathy Musculoskeletal: normal muscle bulk, no effusion Laboratory Tests Test 02/10/19 13:44 02/10/19 21:00 02/11/19 04:00 02/11/19 08:25 Arterial Blood pH 7.416 (7.350-7.450) 7.486 (7.350-7.450) 7.460 (7.350-7.450) Arterial Blood Partial Pressure CO2 63.4 mmHg (35.0-45.0) *H 49.9 mmHg (35.0-45.0) H 51.5 mmHg (35.0-45.0) H Arterial Blood Partial Pressure O2 215.8 mmHg (75.0-100.0) H 55.0 mmHg (75.0-100.0) L 75.8 mmHg (75.0-100.0) Arterial Blood HCO3 39.8 mmol/L (22.0-26.0) H 36.8 mmol/L (22.0-26.0) H 35.8 mmol/L (22.0-26.0) H Arterial Blood Oxygen Saturation 98.9 % (95-100) 90.1 % (95-100) L 94.3 % (95-100) L Arterial Blood Base Excess 13.0 (-2-2) *H 11.9 (-2-2) *H 10.6 (-2-2) *H Delon Test Positive Positive Positive White Blood Count 17.1 K/UL (4.8-10.8) H Red Blood Count 3.27 M/UL (4.70-6.10) L Hemoglobin 9.9 G/DL (14.2-18.0) L Hematocrit 31.4 % (42.0-52.0) L Mean Corpuscular Volume 96 FL (80-99) Mean Corpuscular Hemoglobin 30.4 PG (27.0-31.0) Mean Corpuscular Hemoglobin Concent 31.6 G/DL (32.0-36.0) L Red Cell Distribution Width 14.7 % (11.6-14.8) Platelet Count 109 K/UL (150-450) L Mean Platelet Volume 7.0 FL (6.5-10.1) Neutrophils (%) (Auto) % (45.0-75.0) Lymphocytes (%) (Auto) % (20.0-45.0) Monocytes (%) (Auto) % (1.0-10.0) Eosinophils (%) (Auto) % (0.0-3.0) Basophils (%) (Auto) % (0.0-2.0) Differential Total Cells Counted 100 Neutrophils % (Manual) 95 % (45-75) H Lymphocytes % (Manual) 4 % (20-45) L Monocytes % (Manual) 1 % (1-10) Eosinophils % (Manual) 0 % (0-3) Basophils % (Manual) 0 % (0-2) Band Neutrophils 0 % (0-8) Platelet Estimate Decreased L Platelet Morphology Normal Hypochromasia 1+ Anisocytosis 1+ Sodium Level 143 MMOL/L (136-145) Potassium Level 3.7 MMOL/L (3.5-5.1) Chloride Level 103 MMOL/L (98-107) Carbon Dioxide Level 39 MMOL/L (21-32) H Anion Gap 1 mmol/L (5-15) L Blood Urea Nitrogen 19 mg/dL (7-18) H Creatinine 0.8 MG/DL (0.55-1.30) Estimat Glomerular Filtration Rate mL/min (>60) Glucose Level 125 MG/DL (74-106) H Calcium Level 8.5 MG/DL (8.5-10.1) Phosphorus Level 2.4 MG/DL (2.5-4.9) L Magnesium Level 1.9 MG/DL (1.8-2.4) Total Bilirubin 0.7 MG/DL (0.2-1.0) Direct Bilirubin 0.2 MG/DL (0.0-0.3) Aspartate Amino Transf (AST/SGOT) 32 U/L (15-37) Alanine Aminotransferase (ALT/SGPT) 49 U/L (12-78) Alkaline Phosphatase 63 U/L (46-116) Total Protein 5.1 G/DL (6.4-8.2) L Albumin 2.3 G/DL (3.4-5.0) L Current Medications Medications (Trade) Dose Ordered Sig/Brittani Route PRN Reason Start Time Stop Time Status Last Admin Dose Admin Acetaminophen (Tylenol) 650 mg Q4H PRN NG FOR MILD PAIN 01/26/19 10:15 02/25/19 10:14 Albuterol/ Ipratropium (Albuterol/ Ipratropium) 3 ml Q4HRT HHN 02/08/19 15:00 02/13/19 14:59 02/11/19 11:33 Apixaban (Eliquis) 5 mg BID ORAL 02/11/19 11:00 03/13/19 10:59 02/11/19 11:21 Chlorhexidine Gluconate (Renetta-Hex 2%) 1 applic DAILY@1999 TOPIC 02/07/19 20:00 03/09/19 19:59 02/10/19 20:19 Dextrose (Dextrose 50%) 25 ml Q30M PRN IV Hypoglycemia 01/26/19 10:30 02/25/19 10:29 Dextrose (Dextrose 50%) 50 ml Q30M PRN IV Hypoglycemia 01/26/19 10:30 02/25/19 10:29 02/10/19 23:34 Docusate Sodium (Colace) 100 mg BID NG 02/02/19 18:00 03/04/19 17:59 02/10/19 10:21 Dopamine HCl/ Dextrose 250 ml @ 0 mls/hr Q24H IV 02/06/19 09:15 03/08/19 09:14 Fentanyl Citrate 1000 mcg/Sodium Chloride 100 ml @ 0 mls/hr Q24H IV 02/10/19 20:30 02/17/19 20:29 Haloperidol Lactate 0.5 mg/ Dextrose 55.1 ml @ 220.4 mls/ hr Q8H PRN IVPB Agitation 02/10/19 14:15 03/12/19 14:14 02/11/19 02:05 Hydralazine HCl (Apresoline) 25 mg Q6H PRN NG For High Blood Pressure 02/07/19 17:15 03/06/19 16:59 Hydromorphone HCl (Dilaudid) 0.5 mg Q4H PRN IVP For Pain 02/10/19 14:15 02/17/19 14:14 02/11/19 10:49 Insulin Aspart (NovoLOG) Q6HR SUBQ 02/11/19 13:00 03/13/19 12:59 02/11/19 13:02 Meropenem 2 gm/ Sodium Chloride 110 ml @ 220 mls/hr Q8HR IVPB 02/10/19 22:00 02/15/19 21:59 02/11/19 05:35 Methylprednisolone Sodium Succinate (Solu-MEDROL) 30 mg EVERY 12 HOURS IVP 02/10/19 21:00 03/12/19 20:59 02/11/19 10:18 Pantoprazole (Protonix) 40 mg Q12HR IVP 02/03/19 21:00 02/25/19 10:59 02/11/19 10:18 Polyethylene Glycol (Miralax) 17 gm BEDTIME NG 02/07/19 21:00 03/03/19 20:59 02/09/19 20:26 Potassium Phosphate 20 mm/ Sodium Chloride 281.6667 ml @ 46.944 m... ONCE ONCE IV 02/11/19 11:00 02/11/19 16:59 02/11/19 11:14 Vancomycin HCl (Vanco rx to dose) 1 ea DAILY PRN MISC Per rx protocol 02/06/19 20:00 03/08/19 19:59 Vancomycin HCl 750 mg/Sodium Chloride 275 ml @ 183.333 mls/hr Q8HR@0400,1200,2000 IVPB 02/08/19 20:00 02/13/19 19:59 02/11/19 12:56 [place] Orlando M.D. Feb 11, 2019 13:12
--- NOTE | 2019-02-11 13:35 | Nephrology Progress Note ---
Assessment/Plan Problem List: (1) Cardiac arrest (2) Prerenal azotemia (3) Hypernatremia (4) Hypoalbuminemia (5) HTN (hypertension) Assessment Pre renal Azotemia due to - Dehydration- - High Protein catabolic state as result of Doxy and steroids HyperNatremia due to free water deficit HypoAlbuminemia Plan Sugg: keep bp in check stop D5W IV fluid Avoid Nephrotoxics Monitor lytes per consultants Subjective ROS Limited/Unobtainable: No Constitutional: Reports: malaise Objective Objective Last 24 Hour Vital Signs Date Time Temp Pulse Resp B/P (MAP) Pulse Ox O2 Delivery O2 Flow Rate FiO2 02/11/19 12:42 64 16 100 Full Face 30 02/11/19 12:00 30 02/11/19 12:00 Bi-pap 02/11/19 12:00 74 02/11/19 11:20 66 16 99 Full Face 30 66 16 99 Bi-Pap 02/11/19 11:00 68 17 124/66 (85) 100 02/11/19 10:00 76 16 181/120 (140) 100 02/11/19 09:15 181/120 02/11/19 09:00 76 18 139/70 (93) 100 02/11/19 08:40 76 16 100 Full Face 30 02/11/19 08:00 Bi-pap 02/11/19 08:00 30 02/11/19 08:00 98.0 85 16 131/74 (93) 100 02/11/19 08:00 69 02/11/19 07:12 63 17 100 Full Face 30 63 17 100 Bi-Pap 02/11/19 07:00 69 15 131/62 (85) 100 02/11/19 06:00 67 20 121/66 (84) 100 02/11/19 05:14 81 16 100 Full Face 30 Bi-Pap 02/11/19 05:00 68 17 88/69 (75) 100 02/11/19 04:00 Bi-pap 02/11/19 04:00 99.4 75 15 113/72 (86) 100 02/11/19 04:00 30 02/11/19 04:00 86 02/11/19 03:10 100 15 100 Full Face 30 81 17 100 Bi-Pap 02/11/19 03:00 75 16 138/71 (93) 100 02/11/19 02:00 85 16 114/68 (83) 100 02/11/19 01:00 88 17 138/77 (97) 100 02/11/19 00:39 100 15 100 Full Face 30 Bi-Pap 02/11/19 00:00 Bi-pap 02/11/19 00:00 69 02/11/19 00:00 97.9 86 16 139/65 (89) 100 02/11/19 00:00 30 02/10/19 23:47 72 19 100 Full Face 30 73 21 100 Bi-Pap 02/10/19 23:00 70 12 137/76 (96) 100 02/10/19 22:00 92 19 173/81 (111) 100 02/10/19 21:00 91 13 123/49 (73) 95 02/10/19 21:00 100 15 100 Full Face 25 Bi-Pap 02/10/19 20:30 93 13 120/70 (87) 96 02/10/19 20:00 98.0 102 15 114/79 (91) 97 02/10/19 20:00 30 02/10/19 20:00 94 02/10/19 20:00 Bi-pap 02/10/19 19:40 100 15 100 Full Face 40 101 15 100 Bi-Pap 02/10/19 19:30 93 15 149/87 (107) 100 02/10/19 19:00 98 14 130/73 (92) 100 02/10/19 18:30 92 22 153/86 (108) 100 02/10/19 18:00 91 18 129/85 (100) 100 02/10/19 17:00 105 19 113/91 (98) 100 02/10/19 16:50 104 16 100 Full Face 40 02/10/19 16:00 100 02/10/19 16:00 98.7 108 16 123/84 (97) 100 02/10/19 16:00 Bi-pap 02/10/19 16:00 30 02/10/19 15:00 113 18 149/88 (108) 100 02/10/19 15:00 110 16 99 Full Face 30 112 18 100 Bi-Pap 02/10/19 14:30 109 16 153/93 (113) 100 02/10/19 14:00 108 17 143/66 (91) 100 Intake and Output 02/10/19 02/11/19 19:00 07:00 Intake Total 910 ml 1465.1 ml Output Total 2375 ml 985 ml Balance -1465 ml 480.1 ml Intake Free Water 100 ml 100 ml IV Total 330 ml 825.1 ml Tube Feeding 450 ml 540 ml Other 30 ml Output Urine Total 2375 ml 985 ml # Bowel Movements 1 1 Laboratory Tests 02/10/19 13:44: Arterial Blood pH 7.416, Arterial Blood Partial Pressure CO2 63.4*H, Arterial Blood Partial Pressure O2 215.8H, Arterial Blood HCO3 39.8H, Arterial Blood Oxygen Saturation 98.9, Arterial Blood Base Excess 13.0*H, Delon Test Positive 02/10/19 21:00: Arterial Blood pH 7.486H, Arterial Blood Partial Pressure CO2 49.9H, Arterial Blood Partial Pressure O2 55.0L, Arterial Blood HCO3 36.8H, Arterial Blood Oxygen Saturation 90.1L, Arterial Blood Base Excess 11.9*H, Delon Test Positive 02/11/19 04:00: White Blood Count 17.1H, Red Blood Count 3.27L, Hemoglobin 9.9L, Hematocrit 31.4L, Mean Corpuscular Volume 96, Mean Corpuscular Hemoglobin 30.4, Mean Corpuscular Hemoglobin Concent 31.6L, Red Cell Distribution Width 14.7, Platelet Count 109L, Mean Platelet Volume 7.0, Neutrophils (%) (Auto) , Lymphocytes (%) (Auto) , Monocytes (%) (Auto) , Eosinophils (%) (Auto) , Basophils (%) (Auto) , Differential Total Cells Counted 100, Neutrophils % ( Manual) 95H, Lymphocytes % (Manual) 4L, Monocytes % (Manual) 1, Eosinophils % ( Manual) 0, Basophils % (Manual) 0, Band Neutrophils 0, Platelet Estimate DecreasedL, Platelet Morphology Normal, Hypochromasia 1+, Anisocytosis 1+, Sodium Level 143, Potassium Level 3.7, Chloride Level 103, Carbon Dioxide Level 39H, Anion Gap 1L, Blood Urea Nitrogen 19H, Creatinine 0.8, Estimat Glomerular Filtration Rate , Glucose Level 125H, Calcium Level 8.5, Phosphorus Level 2.4L, Magnesium Level 1.9, Total Bilirubin 0.7, Direct Bilirubin 0.2, Aspartate Amino Transf (AST/SGOT) 32, Alanine Aminotransferase (ALT/SGPT) 49, Alkaline Phosphatase 63, Total Protein 5.1L, Albumin 2.3L 02/11/19 08:25: Arterial Blood pH 7.460H, Arterial Blood Partial Pressure CO2 51.5H, Arterial Blood Partial Pressure O2 75.8, Arterial Blood HCO3 35.8H, Arterial Blood Oxygen Saturation 94.3L, Arterial Blood Base Excess 10.6*H, Delon Test Positive Height (Feet): 5 Height (Inches): 10.00 Weight (Pounds): 161 General Appearance: no apparent distress EENT: other - on BIPAP Cardiovascular: normal rate Respiratory/Chest: decreased breath sounds Abdomen: distended Objective no change Felipe Salmon MD Feb 11, 2019 13:35
--- NOTE | 2019-02-11 15:21 | NUR ---
NURSE NOTES: Spoke with Dr Blake regarding plan for tracheostomy. He reported that he would try to put the patient on the schedule for tomorrow. Spoke with Patient's son. He consented to tracheostomy. Paperwork has not yet been signed. Awaiting order.
--- NOTE | 2019-02-11 15:45 | Consultation ---
History of Present Illness General Date patient seen: Feb 11, 2019 Chief Complaint: Dyspnea/Respdistress Present Illness HPI 73-year-old male with multiple medical comorbidities who is currently admitted to the intensive care unit [facility] for care and management after acute respiratory distress who was intubated for significant period time on vent support. Patient is recently been extubated and unfortunately requires BiPAP and is unable to tolerate being off BiPAP. Given these findings surgery was called to evaluate for potential trach placement. Patient seen, [place], chart reviewed. Allergies: Coded Allergies: No Known Allergies (Unverified , 06/05/18) Medication History Scheduled Multivitamins* (Multivitamins*), 1 TAB ORAL DAILY, (Reported) [Super Beta Prostate], 1 TAB PO EVERY OTHER DAY, (Reported) Scheduled PRN Albuterol Sulfate* (Albuterol Sulfate Hhn*), 3 ML INH Q4H PRN for Shortness of Breath, (Reported) Albuterol Sulfate* (Albuterol Sulfate Mdi*), 2 PUFF INH Q4H PRN for Shortness of Breath, (Reported) Patient History Limited by: medical condition History Provided By: Medical Record, PMD Healthcare decision maker N Resuscitation status Do Not Resuscitate Advanced Directive on File Past Medical/Surgical History Past Medical/Surgical History: (1) Major depressive disorder (2) Elevated d-dimer (3) Hypoxia (4) Pulmonary hypertension (5) Bradycardia (6) Acute exacerbation of chronic obstructive pulmonary disease (COPD) (7) Chronic hypercapnic respiratory failure (8) Leukocytosis (9) Aspiration pneumonia (10) Cardiac arrest (11) Dyspnea (12) VF (ventricular fibrillation) (13) Prerenal azotemia (14) Hypernatremia (15) Hypoalbuminemia (16) HTN (hypertension) (17) Respiratory distress Review of Systems All Other Systems: negative except mentioned in HPI Physical Exam General Appearance: no apparent distress Lines, tubes and drains: peripheral, central line HEENT: mucous membranes moist Neck: normal inspection Respiratory/Chest: decreased breath sounds, other - On BiPAP support unable to remove mass given acute desaturation Cardiovascular/Chest: tachycardia Abdomen: soft, no organomegaly, no mass Skin Exam: warm/dry Neurologic: alert Last 24 Hour Vital Signs Date Time Temp Pulse Resp B/P (MAP) Pulse Ox O2 Delivery O2 Flow Rate FiO2 02/11/19 14:00 79 14 135/81 (99) 100 02/11/19 13:00 74 18 141/79 (99) 100 02/11/19 12:42 64 16 100 Full Face 30 02/11/19 12:00 30 02/11/19 12:00 Bi-pap 02/11/19 12:00 74 02/11/19 12:00 98.2 68 16 133/64 (87) 100 02/11/19 11:20 66 16 99 Full Face 30 66 16 99 Bi-Pap 02/11/19 11:00 68 17 124/66 (85) 100 02/11/19 10:00 76 16 181/120 (140) 100 02/11/19 09:15 181/120 02/11/19 09:00 76 18 139/70 (93) 100 02/11/19 08:40 76 16 100 Full Face 30 02/11/19 08:00 Bi-pap 02/11/19 08:00 30 02/11/19 08:00 98.0 85 16 131/74 (93) 100 02/11/19 08:00 69 02/11/19 07:12 63 17 100 Full Face 30 63 17 100 Bi-Pap 02/11/19 07:00 69 15 131/62 (85) 100 02/11/19 06:00 67 20 121/66 (84) 100 02/11/19 05:14 81 16 100 Full Face 30 Bi-Pap 02/11/19 05:00 68 17 88/69 (75) 100 02/11/19 04:00 Bi-pap 02/11/19 04:00 99.4 75 15 113/72 (86) 100 02/11/19 04:00 30 02/11/19 04:00 86 02/11/19 03:10 100 15 100 Full Face 30 81 17 100 Bi-Pap 02/11/19 03:00 75 16 138/71 (93) 100 02/11/19 02:00 85 16 114/68 (83) 100 02/11/19 01:00 88 17 138/77 (97) 100 02/11/19 00:39 100 15 100 Full Face 30 Bi-Pap 02/11/19 00:00 Bi-pap 02/11/19 00:00 69 02/11/19 00:00 97.9 86 16 139/65 (89) 100 02/11/19 00:00 30 02/10/19 23:47 72 19 100 Full Face 30 73 21 100 Bi-Pap 02/10/19 23:00 70 12 137/76 (96) 100 02/10/19 22:00 92 19 173/81 (111) 100 02/10/19 21:00 91 13 123/49 (73) 95 02/10/19 21:00 100 15 100 Full Face 25 Bi-Pap 02/10/19 20:30 93 13 120/70 (87) 96 02/10/19 20:00 98.0 102 15 114/79 (91) 97 02/10/19 20:00 30 02/10/19 20:00 94 02/10/19 20:00 Bi-pap 02/10/19 19:40 100 15 100 Full Face 40 101 15 100 Bi-Pap 02/10/19 19:30 93 15 149/87 (107) 100 02/10/19 19:00 98 14 130/73 (92) 100 02/10/19 18:30 92 22 153/86 (108) 100 02/10/19 18:00 91 18 129/85 (100) 100 02/10/19 17:00 105 19 113/91 (98) 100 02/10/19 16:50 104 16 100 Full Face 40 02/10/19 16:00 100 02/10/19 16:00 98.7 108 16 123/84 (97) 100 02/10/19 16:00 Bi-pap 02/10/19 16:00 30 Intake and Output 02/10/19 02/11/19 19:00 07:00 Intake Total 910 ml 1465.1 ml Output Total 2375 ml 985 ml Balance -1465 ml 480.1 ml Intake Free Water 100 ml 100 ml IV Total 330 ml 825.1 ml Tube Feeding 450 ml 540 ml Other 30 ml Output Urine Total 2375 ml 985 ml # Bowel Movements 1 1 Laboratory Tests Test 02/10/19 21:00 02/11/19 04:00 02/11/19 08:25 Arterial Blood pH 7.486 (7.350-7.450) 7.460 (7.350-7.450) Arterial Blood Partial Pressure CO2 49.9 mmHg (35.0-45.0) H 51.5 mmHg (35.0-45.0) H Arterial Blood Partial Pressure O2 55.0 mmHg (75.0-100.0) L 75.8 mmHg (75.0-100.0) Arterial Blood HCO3 36.8 mmol/L (22.0-26.0) H 35.8 mmol/L (22.0-26.0) H Arterial Blood Oxygen Saturation 90.1 % (95-100) L 94.3 % (95-100) L Arterial Blood Base Excess 11.9 (-2-2) *H 10.6 (-2-2) *H Delon Test Positive Positive White Blood Count 17.1 K/UL (4.8-10.8) H Red Blood Count 3.27 M/UL (4.70-6.10) L Hemoglobin 9.9 G/DL (14.2-18.0) L Hematocrit 31.4 % (42.0-52.0) L Mean Corpuscular Volume 96 FL (80-99) Mean Corpuscular Hemoglobin 30.4 PG (27.0-31.0) Mean Corpuscular Hemoglobin Concent 31.6 G/DL (32.0-36.0) L Red Cell Distribution Width 14.7 % (11.6-14.8) Platelet Count 109 K/UL (150-450) L Mean Platelet Volume 7.0 FL (6.5-10.1) Neutrophils (%) (Auto) % (45.0-75.0) Lymphocytes (%) (Auto) % (20.0-45.0) Monocytes (%) (Auto) % (1.0-10.0) Eosinophils (%) (Auto) % (0.0-3.0) Basophils (%) (Auto) % (0.0-2.0) Differential Total Cells Counted 100 Neutrophils % (Manual) 95 % (45-75) H Lymphocytes % (Manual) 4 % (20-45) L Monocytes % (Manual) 1 % (1-10) Eosinophils % (Manual) 0 % (0-3) Basophils % (Manual) 0 % (0-2) Band Neutrophils 0 % (0-8) Platelet Estimate Decreased L Platelet Morphology Normal Hypochromasia 1+ Anisocytosis 1+ Sodium Level 143 MMOL/L (136-145) Potassium Level 3.7 MMOL/L (3.5-5.1) Chloride Level 103 MMOL/L (98-107) Carbon Dioxide Level 39 MMOL/L (21-32) H Anion Gap 1 mmol/L (5-15) L Blood Urea Nitrogen 19 mg/dL (7-18) H Creatinine 0.8 MG/DL (0.55-1.30) Estimat Glomerular Filtration Rate mL/min (>60) Glucose Level 125 MG/DL (74-106) H Calcium Level 8.5 MG/DL (8.5-10.1) Phosphorus Level 2.4 MG/DL (2.5-4.9) L Magnesium Level 1.9 MG/DL (1.8-2.4) Total Bilirubin 0.7 MG/DL (0.2-1.0) Direct Bilirubin 0.2 MG/DL (0.0-0.3) Aspartate Amino Transf (AST/SGOT) 32 U/L (15-37) Alanine Aminotransferase (ALT/SGPT) 49 U/L (12-78) Alkaline Phosphatase 63 U/L (46-116) Total Protein 5.1 G/DL (6.4-8.2) L Albumin 2.3 G/DL (3.4-5.0) L Height (Feet): 5 Height (Inches): 10.00 Weight (Pounds): 161 Medications Current Medications Medications (Trade) Dose Ordered Sig/Brittani Route PRN Reason Start Time Stop Time Status Last Admin Dose Admin Acetaminophen (Tylenol) 650 mg Q4H PRN NG FOR MILD PAIN 01/26/19 10:15 02/25/19 10:14 Albuterol/ Ipratropium (Albuterol/ Ipratropium) 3 ml Q4HRT HHN 02/08/19 15:00 02/13/19 14:59 02/11/19 11:33 Apixaban (Eliquis) 5 mg BID ORAL 02/11/19 11:00 03/13/19 10:59 02/11/19 11:21 Chlorhexidine Gluconate (Renetta-Hex 2%) 1 applic DAILY@1999 TOPIC 02/07/19 20:00 03/09/19 19:59 02/10/19 20:19 Dextrose (Dextrose 50%) 25 ml Q30M PRN IV Hypoglycemia 01/26/19 10:30 02/25/19 10:29 Dextrose (Dextrose 50%) 50 ml Q30M PRN IV Hypoglycemia 01/26/19 10:30 02/25/19 10:29 02/10/19 23:34 Docusate Sodium (Colace) 100 mg BID NG 02/02/19 18:00 03/04/19 17:59 02/10/19 10:21 Dopamine HCl/ Dextrose 250 ml @ 0 mls/hr Q24H IV 02/06/19 09:15 03/08/19 09:14 Fentanyl Citrate 1000 mcg/Sodium Chloride 100 ml @ 0 mls/hr Q24H IV 02/10/19 20:30 02/17/19 20:29 Haloperidol Lactate 0.5 mg/ Dextrose 55.1 ml @ 220.4 mls/ hr Q8H PRN IVPB Agitation 02/10/19 14:15 03/12/19 14:14 02/11/19 13:30 Hydralazine HCl (Apresoline) 25 mg Q6H PRN NG For High Blood Pressure 02/07/19 17:15 03/06/19 16:59 Hydromorphone HCl (Dilaudid) 0.5 mg Q4H PRN IVP For Pain 02/10/19 14:15 02/17/19 14:14 02/11/19 10:49 Insulin Aspart (NovoLOG) Q6HR SUBQ 02/11/19 13:00 03/13/19 12:59 02/11/19 13:02 Meropenem 2 gm/ Sodium Chloride 110 ml @ 220 mls/hr Q8HR IVPB 02/10/19 22:00 02/15/19 21:59 02/11/19 14:42 Methylprednisolone Sodium Succinate (Solu-MEDROL) 30 mg EVERY 12 HOURS IVP 02/10/19 21:00 03/12/19 20:59 02/11/19 10:18 Pantoprazole (Protonix) 40 mg Q12HR IVP 02/03/19 21:00 02/25/19 10:59 02/11/19 10:18 Polyethylene Glycol (Miralax) 17 gm BEDTIME NG 02/07/19 21:00 03/03/19 20:59 02/09/19 20:26 Potassium Phosphate 20 mm/ Sodium Chloride 281.6667 ml @ 46.944 m... ONCE ONCE IV 02/11/19 11:00 02/11/19 16:59 02/11/19 11:14 Vancomycin HCl (Vanco rx to dose) 1 ea DAILY PRN MISC Per rx protocol 02/06/19 20:00 03/08/19 19:59 Vancomycin HCl 750 mg/Sodium Chloride 275 ml @ 183.333 mls/hr Q8HR@0400,1200,2000 IVPB 02/08/19 20:00 02/13/19 19:59 02/11/19 12:56 Assessment/Plan Problem List: (1) Respiratory distress Assessment & Plan: 73-year-old male with acute respiratory decompensation requiring intubation and intensive care unit evaluation was on vent support. Patient was recently extubated but unfortunately is not tolerating expiration very well as he requires BiPAP persistently and if taken off desaturates. Given these findings tracheostomy is potentially indicated and agree with pulmonology team and medical team that patient may benefit from tracheostomy to allow for recovery. Will obtain consent from the patient's family and patient for tracheostomy placement in hopes to have patient able to be weaned rather than reintubated. Thank you for allowing me to participate patient's care will continue with recommendations npo p mn iv fluids am labs consent thank you ICD Codes: R06.03 - Acute respiratory distress SNOMED: [id number] Kris Blake Feb 11, 2019 15:45
--- NOTE | 2019-02-11 16:00 | NUR ---
NURSE NOTES: Patient blood pressure 128/69, HR 71, Temp 98.6, SpO2 100%, and RR 19. Patient restless at this time. Patient remains restrained. Patient pulled out NGT at this time. Will replace when possible. Patient on BiPAP with setting of 12/5 and 30% FiO2. Patient tolerating BiPAP setting with RR 19 and SpO2 100%. Dr White came and ordered for the patient to be reintubated at this time. ER Doctor called by Dr White. Orders placed at this time. Patient has order for tracheostomy and bronchoscopy. Will follow up with RT and ER doc for intubation. Speeder Tender recommended Glucerna 1.5 at 45mL/hr goal. Will input order and the feeding will be started once the patient has NGT replaced. bilateral upper extremity pitting edema +3 and lower extremity pitting edema +2. Patient upper extremities still weeping at this time. go remains patent, asymptomatic, and draining clear yellow urine at this time. Right upper arm PICC patent, asymptomatic, dressing pulling up on the edges. Dressing changed at this time. Patient bed in low position with bed alarm on and call light in reach at this time. Patient cleaned at this time post bowel movement. Patient had another episode of diarrhea. Patient cleaned at this time.
--- NOTE | 2019-02-11 16:13 | Hematology/Onc Progress Note ---
Assessment/Plan Assessment/Plan # Thrombocytopenia is likely due to underlying infection/sepsis v dic, reactive process --> hiv is neg, hepatitis is neg as well --> us of the abd from prior 2018 --> plt rend 140-->115-->105-->133-->110k--> 118k-->100k-->95k-->109k --> okay for ppx as long as above 75k --> meds have been reviewed # Anemia of chronic disease, due to multifactorial causes --> anemia panel reviewed from earlier in admission and c/w acd --> hgb goal is >7 --> no hemolysis is seen --> smear has been reviewed --> hgb trend 9.3-->11.1-->9.6--->9.9 # Leukocytosis/elevated white blood cell count, unspecified likely related to steroid meds --> have reviewed peripheral smear and bandemia/neutrophilia noted --> continue antibiotics if they have been started by ID team, zosyn --> monitor for resolution --> wbc trend 14-->18-->24.3-->17.3-->17 # COPD exacerbation with asp pna --> has been given steriods --> per id for aspiration prec on zosyn --> rochelle/vanc # Hypercapneic respiratory failure --> remains on vent--> EXTUbated 8.25 --> on bipap # S/p cardiac arrest in the ED # CHF # HTN # Diabetes # DNR status # Dysphagia with NG++ Time of note does not correspond to when patient was seen. Greatly appreciate consultation. Subjective Constitutional: Denies: no symptoms, chills, fever, malaise, weakness, other HEENT: Denies: no symptoms, eye pain, blurred vision, tearing, double vision, ear pain, ear discharge, nose pain, nose congestion, throat pain, throat swelling, mouth pain, mouth swelling, other Cardiovascular: Denies: no symptoms, chest pain, edema, irregular heart rate, lightheadedness, palpitations, syncope, other Respiratory: Denies: no symptoms, cough, shortness of breath, SOB with excertion, SOB at rest, sputum, wheezing, other Gastrointestinal/Abdominal: Denies: no symptoms, abdomen distended, abdominal pain, black stools, tarry stools, blood in stool, constipated, diarrhea, difficulty swallowing, nausea, poor appetite, poor fluid intake, rectal bleeding , vomiting, other Neurologic/Psychiatric: Denies: no symptoms, anxiety, depressed, emotional problems, headache, numbness, paresthesia, pre-existing deficit, seizure, tingling, tremors, weakness, other Endocrine: Denies: no symptoms, excessive sweating, flushing, intolerance to cold, intolerance to heat, increased hunger, increased thirst, increased urine, unexplained weight gain, unexplained weight loss, other Allergies: Coded Allergies: No Known Allergies (Unverified , 06/05/18) Subjective 02/01: no events to report, plt is lower, weaning trial initiated with mack gray rn, hiv neg 02/04: icu, wbc elevated, on abx 02/05: remains on vent, fighting vent, on abx remains on lovenox, on steriods 02/06: icu, on vent, vs stable, no sob or respiratory distress 02/07: remains in the icu, intubated, ng tube, weaning trial today 02/08: icu, restless and agitated, extubation pending, wbc improved 02/10: no vent, remains in icu, seen by isaac, extubated today, on bipap 02/11: extubated, on rochelle/vanc, labs have been reviewed Objective Objective Current Medications Medications (Trade) Dose Ordered Sig/Brittani Route PRN Reason Start Time Stop Time Status Last Admin Dose Admin Acetaminophen (Tylenol) 650 mg Q4H PRN NG FOR MILD PAIN 01/26/19 10:15 02/25/19 10:14 Albuterol/ Ipratropium (Albuterol/ Ipratropium) 3 ml Q4HRT HHN 02/08/19 15:00 02/13/19 14:59 02/11/19 15:51 Apixaban (Eliquis) 5 mg BID ORAL 02/11/19 11:00 03/13/19 10:59 02/11/19 11:21 Chlorhexidine Gluconate (Renetta-Hex 2%) 1 applic DAILY@1999 TOPIC 02/07/19 20:00 03/09/19 19:59 02/10/19 20:19 Dextrose (Dextrose 50%) 25 ml Q30M PRN IV Hypoglycemia 01/26/19 10:30 02/25/19 10:29 Dextrose (Dextrose 50%) 50 ml Q30M PRN IV Hypoglycemia 01/26/19 10:30 02/25/19 10:29 02/10/19 23:34 Docusate Sodium (Colace) 100 mg BID NG 02/02/19 18:00 03/04/19 17:59 02/10/19 10:21 Dopamine HCl/ Dextrose 250 ml @ 0 mls/hr Q24H IV 02/06/19 09:15 03/08/19 09:14 Fentanyl Citrate 1000 mcg/Sodium Chloride 100 ml @ 0 mls/hr Q24H IV 02/10/19 20:30 02/17/19 20:29 Haloperidol Lactate 0.5 mg/ Dextrose 55.1 ml @ 220.4 mls/ hr Q8H PRN IVPB Agitation 02/10/19 14:15 03/12/19 14:14 02/11/19 13:30 Hydralazine HCl (Apresoline) 25 mg Q6H PRN NG For High Blood Pressure 02/07/19 17:15 03/06/19 16:59 Hydromorphone HCl (Dilaudid) 0.5 mg Q4H PRN IVP For Pain 02/10/19 14:15 02/17/19 14:14 02/11/19 10:49 Insulin Aspart (NovoLOG) Q6HR SUBQ 02/11/19 13:00 03/13/19 12:59 02/11/19 13:02 Meropenem 2 gm/ Sodium Chloride 110 ml @ 220 mls/hr Q8HR IVPB 02/10/19 22:00 02/15/19 21:59 02/11/19 14:42 Methylprednisolone Sodium Succinate (Solu-MEDROL) 30 mg EVERY 12 HOURS IVP 02/10/19 21:00 03/12/19 20:59 02/11/19 10:18 Pantoprazole (Protonix) 40 mg Q12HR IVP 02/03/19 21:00 02/25/19 10:59 02/11/19 10:18 Polyethylene Glycol (Miralax) 17 gm BEDTIME NG 02/07/19 21:00 03/03/19 20:59 02/09/19 20:26 Potassium Phosphate 20 mm/ Sodium Chloride 281.6667 ml @ 46.944 m... ONCE ONCE IV 02/11/19 11:00 02/11/19 16:59 02/11/19 11:14 Vancomycin HCl (Vanco rx to dose) 1 ea DAILY PRN MISC Per rx protocol 02/06/19 20:00 03/08/19 19:59 Vancomycin HCl 750 mg/Sodium Chloride 275 ml @ 183.333 mls/hr Q8HR@0400,1200,2000 IVPB 02/08/19 20:00 02/13/19 19:59 02/11/19 12:56 Last 24 Hour Vital Signs Date Time Temp Pulse Resp B/P (MAP) Pulse Ox O2 Delivery O2 Flow Rate FiO2 02/11/19 16:00 30 02/11/19 16:00 Bi-pap 02/11/19 15:20 81 15 100 Full Face 30 83 17 100 Bi-Pap 02/11/19 14:00 79 14 135/81 (99) 100 02/11/19 13:00 74 18 141/79 (99) 100 02/11/19 12:42 64 16 100 Full Face 30 02/11/19 12:00 30 02/11/19 12:00 Bi-pap 02/11/19 12:00 74 02/11/19 12:00 98.2 68 16 133/64 (87) 100 02/11/19 11:20 66 16 99 Full Face 30 66 16 99 Bi-Pap 02/11/19 11:00 68 17 124/66 (85) 100 02/11/19 10:00 76 16 181/120 (140) 100 02/11/19 09:15 181/120 02/11/19 09:00 76 18 139/70 (93) 100 02/11/19 08:40 76 16 100 Full Face 30 02/11/19 08:00 Bi-pap 02/11/19 08:00 30 02/11/19 08:00 98.0 85 16 131/74 (93) 100 02/11/19 08:00 69 02/11/19 07:12 63 17 100 Full Face 30 63 17 100 Bi-Pap 02/11/19 07:00 69 15 131/62 (85) 100 02/11/19 06:00 67 20 121/66 (84) 100 02/11/19 05:14 81 16 100 Full Face 30 Bi-Pap 02/11/19 05:00 68 17 88/69 (75) 100 02/11/19 04:00 Bi-pap 02/11/19 04:00 99.4 75 15 113/72 (86) 100 02/11/19 04:00 30 02/11/19 04:00 86 02/11/19 03:10 100 15 100 Full Face 30 81 17 100 Bi-Pap 02/11/19 03:00 75 16 138/71 (93) 100 02/11/19 02:00 85 16 114/68 (83) 100 02/11/19 01:00 88 17 138/77 (97) 100 02/11/19 00:39 100 15 100 Full Face 30 Bi-Pap 02/11/19 00:00 Bi-pap 02/11/19 00:00 69 02/11/19 00:00 97.9 86 16 139/65 (89) 100 02/11/19 00:00 30 02/10/19 23:47 72 19 100 Full Face 30 73 21 100 Bi-Pap 02/10/19 23:00 70 12 137/76 (96) 100 02/10/19 22:00 92 19 173/81 (111) 100 02/10/19 21:00 91 13 123/49 (73) 95 02/10/19 21:00 100 15 100 Full Face 25 Bi-Pap 02/10/19 20:30 93 13 120/70 (87) 96 02/10/19 20:00 98.0 102 15 114/79 (91) 97 02/10/19 20:00 30 02/10/19 20:00 94 02/10/19 20:00 Bi-pap 02/10/19 19:40 100 15 100 Full Face 40 101 15 100 Bi-Pap 02/10/19 19:30 93 15 149/87 (107) 100 02/10/19 19:00 98 14 130/73 (92) 100 02/10/19 18:30 92 22 153/86 (108) 100 02/10/19 18:00 91 18 129/85 (100) 100 02/10/19 17:00 105 19 113/91 (98) 100 02/10/19 16:50 104 16 100 Full Face 40 02/10/19 16:00 100 02/10/19 16:00 98.7 108 16 123/84 (97) 100 02/10/19 16:00 Bi-pap 02/10/19 16:00 30 02/10/19 15:00 113 18 149/88 (108) 100 02/10/19 15:00 110 16 99 Full Face 30 112 18 100 Bi-Pap 02/10/19 14:30 109 16 153/93 (113) 100 02/10/19 14:00 108 17 143/66 (91) 100 02/10/19 13:30 110 17 131/84 (100) 100 02/10/19 13:00 109 16 170/82 (111) 100 02/10/19 12:54 111 14 100 Full Face 30 02/10/19 12:30 96 19 180/78 (112) 100 02/10/19 12:00 Bi-pap 02/10/19 12:00 98.7 87 11 134/64 (87) 99 02/10/19 12:00 30 02/10/19 12:00 84 02/10/19 11:30 82 15 142/73 (96) 100 02/10/19 11:15 Bi-pap 30 02/10/19 11:13 82 18 100 Bi-Pap 30 02/10/19 11:06 82 18 100 Full Face 30 79 14 100 Bi-Pap 30 02/10/19 11:00 81 14 133/68 (89) 100 02/10/19 10:45 73 15 120/62 (81) 100 02/10/19 10:30 78 16 129/102 (111) 100 02/10/19 10:15 87 16 136/71 (92) 100 02/10/19 10:00 83 15 100 Facial 30 02/10/19 10:00 85 18 136/70 (92) 100 02/10/19 09:57 30 02/10/19 09:30 79 15 133/84 (100) 100 02/10/19 09:00 75 18 113/95 (101) 100 02/10/19 08:45 77 17 30 02/10/19 08:30 83 16 121/63 (82) 100 02/10/19 08:00 30 02/10/19 08:00 97.8 81 15 147/65 (92) 100 02/10/19 08:00 Mechanical Ventilator 02/10/19 08:00 78 8/25/19 07:40 30 02/10/19 07:39 98 02/10/19 07:30 76 16 111/62 (78) 99 02/10/19 07:15 71 16 100 Mechanical Ventilator 30 02/10/19 07:00 59 16 102/59 (73) 100 02/10/19 06:55 63 18 30 02/10/19 06:30 57 16 123/56 (78) 100 02/10/19 06:00 80 16 128/68 (88) 100 02/10/19 05:37 58 17 Mechanical Ventilator 30 02/10/19 05:30 59 16 130/71 (90) 100 02/10/19 05:00 57 15 148/66 (93) 100 02/10/19 04:30 57 15 91/64 (73) 100 02/10/19 04:00 16 Mechanical Ventilator 02/10/19 04:00 Mechanical Ventilator 02/10/19 04:00 62 02/10/19 04:00 30 02/10/19 04:00 99.2 67 16 164/63 (96) 100 02/10/19 03:30 67 16 129/55 (79) 100 02/10/19 03:25 53 17 100 Mechanical Ventilator 30 59 16 30 02/10/19 03:00 16 Mechanical Ventilator 30 02/10/19 03:00 55 16 154/59 (90) 100 02/10/19 02:30 59 16 132/63 (86) 100 02/10/19 02:25 Mechanical Ventilator 02/10/19 02:00 102 20 143/75 (97) 100 02/10/19 01:30 102 20 153/70 (97) 100 02/10/19 01:15 91 21 Mechanical Ventilator 30 02/10/19 01:00 55 16 118/58 (78) 100 02/10/19 01:00 16 Mechanical Ventilator 30 02/10/19 00:30 59 16 124/63 (83) 100 02/10/19 00:00 Mechanical Ventilator 02/10/19 00:00 30 02/10/19 00:00 98.7 49 17 131/60 (83) 100 02/10/19 00:00 49 02/10/19 00:00 16 Mechanical Ventilator 30 02/09/19 23:30 58 16 108/59 (75) 100 02/09/19 23:17 53 18 100 Mechanical Ventilator 30 61 18 30 02/09/19 23:00 16 Mechanical Ventilator 30 02/09/19 23:00 52 16 133/58 (83) 100 02/09/19 22:30 58 16 120/62 (81) 100 02/09/19 22:00 68 16 162/53 (89) 100 02/09/19 22:00 16 Mechanical Ventilator 30 02/09/19 21:30 48 16 128/61 (83) 100 02/09/19 21:15 48 18 30 02/09/19 21:00 49 16 118/57 (77) 100 02/09/19 21:00 16 Mechanical Ventilator 30 02/09/19 20:30 56 16 108/56 (73) 100 02/09/19 20:15 59 16 113/57 (75) 75 02/09/19 20:00 99.4 73 16 123/56 (78) 100 02/09/19 20:00 30 02/09/19 20:00 16 Mechanical Ventilator 30 02/09/19 20:00 Mechanical Ventilator 02/09/19 20:00 52 02/09/19 19:30 87 15 140/105 (117) 100 02/09/19 19:08 73 17 100 Mechanical Ventilator 30 64 18 30 02/09/19 19:00 61 16 109/64 (79) 100 02/09/19 19:00 16 Mechanical Ventilator 30 02/09/19 18:30 60 16 134/74 (94) 100 02/09/19 18:00 62 16 104/66 (79) 100 02/09/19 17:30 63 16 102/52 (69) 100 02/09/19 17:26 48 16 30 02/09/19 17:00 49 16 109/57 (74) 100 02/09/19 16:30 48 16 100/54 (69) 100 Intake and Output 02/10/19 02/11/19 19:00 07:00 Intake Total 910 ml 1465.1 ml Output Total 2375 ml 985 ml Balance -1465 ml 480.1 ml Intake Free Water 100 ml 100 ml IV Total 330 ml 825.1 ml Tube Feeding 450 ml 540 ml Other 30 ml Output Urine Total 2375 ml 985 ml # Bowel Movements 1 1 Labs Test 02/08/19 22:00 02/09/19 04:00 8/24/19 07:59 02/09/19 10:50 White Blood Count 18.0 K/UL (4.8-10.8) 16.5 K/UL (4.8-10.8) Red Blood Count 3.24 M/UL (4.70-6.10) 3.11 M/UL (4.70-6.10) Hemoglobin 9.7 G/DL (14.2-18.0) 9.4 G/DL (14.2-18.0) Hematocrit 30.5 % (42.0-52.0) 29.7 % (42.0-52.0) Mean Corpuscular Volume 94 FL (80-99) 95 FL (80-99) Mean Corpuscular Hemoglobin 30.0 PG (27.0-31.0) 30.3 PG (27.0-31.0) Mean Corpuscular Hemoglobin Concent 31.9 G/DL (32.0-36.0) 31.7 G/DL (32.0-36.0) Red Cell Distribution Width 14.4 % (11.6-14.8) 14.7 % (11.6-14.8) Platelet Count 107 K/UL (150-450) 102 K/UL (150-450) Mean Platelet Volume 8.5 FL (6.5-10.1) 7.6 FL (6.5-10.1) Neutrophils (%) (Auto) % (45.0-75.0) % (45.0-75.0) Lymphocytes (%) (Auto) % (20.0-45.0) % (20.0-45.0) Monocytes (%) (Auto) % (1.0-10.0) % (1.0-10.0) Eosinophils (%) (Auto) % (0.0-3.0) % (0.0-3.0) Basophils (%) (Auto) % (0.0-2.0) % (0.0-2.0) Sodium Level 139 MMOL/L (136-145) 142 MMOL/L (136-145) Potassium Level 4.2 MMOL/L (3.5-5.1) 4.0 MMOL/L (3.5-5.1) Chloride Level 103 MMOL/L (98-107) 104 MMOL/L (98-107) Carbon Dioxide Level 36 MMOL/L (21-32) 36 MMOL/L (21-32) Anion Gap 0 mmol/L (5-15) 2 mmol/L (5-15) Blood Urea Nitrogen 22 mg/dL (7-18) 22 mg/dL (7-18) Creatinine 0.8 MG/DL (0.55-1.30) 0.8 MG/DL (0.55-1.30) Estimat Glomerular Filtration Rate mL/min (>60) mL/min (>60) Glucose Level 117 MG/DL (74-106) 82 MG/DL (74-106) Calcium Level 8.2 MG/DL (8.5-10.1) 8.2 MG/DL (8.5-10.1) Phosphorus Level 3.4 MG/DL (2.5-4.9) 3.4 MG/DL (2.5-4.9) Magnesium Level 2.3 MG/DL (1.8-2.4) 2.2 MG/DL (1.8-2.4) Differential Total Cells Counted 100 Neutrophils % (Manual) 88 % (45-75) Lymphocytes % (Manual) 3 % (20-45) Monocytes % (Manual) 6 % (1-10) Eosinophils % (Manual) 0 % (0-3) Basophils % (Manual) 0 % (0-2) Band Neutrophils 3 % (0-8) Platelet Estimate Decreased Platelet Morphology Normal Hypochromasia 1+ Anisocytosis 1+ Arterial Blood pH 7.401 (7.350-7.450) Arterial Blood Partial Pressure CO2 61.9 mmHg (35.0-45.0) Arterial Blood Partial Pressure O2 45.3 mmHg (75.0-100.0) Arterial Blood HCO3 37.6 mmol/L (22.0-26.0) Arterial Blood Oxygen Saturation 36.8 % (95-100) Arterial Blood Base Excess 10.9 (-2-2) Delon Test Positive Vancomycin Level Trough 15.0 ug/mL (5.0-12.0) Test 02/10/19 04:00 02/10/19 08:34 02/10/19 13:44 02/10/19 21:00 White Blood Count 16.9 K/UL (4.8-10.8) Red Blood Count 3.16 M/UL (4.70-6.10) Hemoglobin 9.6 G/DL (14.2-18.0) Hematocrit 30.3 % (42.0-52.0) Mean Corpuscular Volume 96 FL (80-99) Mean Corpuscular Hemoglobin 30.4 PG (27.0-31.0) Mean Corpuscular Hemoglobin Concent 31.7 G/DL (32.0-36.0) Red Cell Distribution Width 14.6 % (11.6-14.8) Platelet Count 95 K/UL (150-450) Mean Platelet Volume 7.6 FL (6.5-10.1) Neutrophils (%) (Auto) % (45.0-75.0) Lymphocytes (%) (Auto) % (20.0-45.0) Monocytes (%) (Auto) % (1.0-10.0) Eosinophils (%) (Auto) % (0.0-3.0) Basophils (%) (Auto) % (0.0-2.0) Differential Total Cells Counted 100 Neutrophils % (Manual) 91 % (45-75) Lymphocytes % (Manual) 6 % (20-45) Monocytes % (Manual) 3 % (1-10) Eosinophils % (Manual) 0 % (0-3) Basophils % (Manual) 0 % (0-2) Band Neutrophils 0 % (0-8) Platelet Estimate Decreased Platelet Morphology Normal Anisocytosis 1+ Sodium Level 143 MMOL/L (136-145) Potassium Level 4.0 MMOL/L (3.5-5.1) Chloride Level 105 MMOL/L (98-107) Carbon Dioxide Level 37 MMOL/L (21-32) Anion Gap 1 mmol/L (5-15) Blood Urea Nitrogen 23 mg/dL (7-18) Creatinine 0.8 MG/DL (0.55-1.30) Estimat Glomerular Filtration Rate mL/min (>60) Glucose Level 76 MG/DL (74-106) Calcium Level 8.5 MG/DL (8.5-10.1) Phosphorus Level 3.0 MG/DL (2.5-4.9) Magnesium Level 2.1 MG/DL (1.8-2.4) Arterial Blood pH 7.454 (7.350-7.450) 7.416 (7.350-7.450) 7.486 (7.350-7.450) Arterial Blood Partial Pressure CO2 57.3 mmHg (35.0-45.0) 63.4 mmHg (35.0-45.0) 49.9 mmHg (35.0-45.0) Arterial Blood Partial Pressure O2 61.0 mmHg (75.0-100.0) 215.8 mmHg (75.0-100.0) 55.0 mmHg (75.0-100.0) Arterial Blood HCO3 39.3 mmol/L (22.0-26.0) 39.8 mmol/L (22.0-26.0) 36.8 mmol/L (22.0-26.0) Arterial Blood Oxygen Saturation 91.7 % (95-100) 98.9 % (95-100) 90.1 % (95-100) Arterial Blood Base Excess 13.4 (-2-2) 13.0 (-2-2) 11.9 (-2-2) Delon Test Positive Positive Positive Test 02/11/19 04:00 02/11/19 08:25 White Blood Count 17.1 K/UL (4.8-10.8) Red Blood Count 3.27 M/UL (4.70-6.10) Hemoglobin 9.9 G/DL (14.2-18.0) Hematocrit 31.4 % (42.0-52.0) Mean Corpuscular Volume 96 FL (80-99) Mean Corpuscular Hemoglobin 30.4 PG (27.0-31.0) Mean Corpuscular Hemoglobin Concent 31.6 G/DL (32.0-36.0) Red Cell Distribution Width 14.7 % (11.6-14.8) Platelet Count 109 K/UL (150-450) Mean Platelet Volume 7.0 FL (6.5-10.1) Neutrophils (%) (Auto) % (45.0-75.0) Lymphocytes (%) (Auto) % (20.0-45.0) Monocytes (%) (Auto) % (1.0-10.0) Eosinophils (%) (Auto) % (0.0-3.0) Basophils (%) (Auto) % (0.0-2.0) Differential Total Cells Counted 100 Neutrophils % (Manual) 95 % (45-75) Lymphocytes % (Manual) 4 % (20-45) Monocytes % (Manual) 1 % (1-10) Eosinophils % (Manual) 0 % (0-3) Basophils % (Manual) 0 % (0-2) Band Neutrophils 0 % (0-8) Platelet Estimate Decreased Platelet Morphology Normal Hypochromasia 1+ Anisocytosis 1+ Sodium Level 143 MMOL/L (136-145) Potassium Level 3.7 MMOL/L (3.5-5.1) Chloride Level 103 MMOL/L (98-107) Carbon Dioxide Level 39 MMOL/L (21-32) Anion Gap 1 mmol/L (5-15) Blood Urea Nitrogen 19 mg/dL (7-18) Creatinine 0.8 MG/DL (0.55-1.30) Estimat Glomerular Filtration Rate mL/min (>60) Glucose Level 125 MG/DL (74-106) Calcium Level 8.5 MG/DL (8.5-10.1) Phosphorus Level 2.4 MG/DL (2.5-4.9) Magnesium Level 1.9 MG/DL (1.8-2.4) Total Bilirubin 0.7 MG/DL (0.2-1.0) Direct Bilirubin 0.2 MG/DL (0.0-0.3) Aspartate Amino Transf (AST/SGOT) 32 U/L (15-37) Alanine Aminotransferase (ALT/SGPT) 49 U/L (12-78) Alkaline Phosphatase 63 U/L (46-116) Total Protein 5.1 G/DL (6.4-8.2) Albumin 2.3 G/DL (3.4-5.0) Arterial Blood pH 7.460 (7.350-7.450) Arterial Blood Partial Pressure CO2 51.5 mmHg (35.0-45.0) Arterial Blood Partial Pressure O2 75.8 mmHg (75.0-100.0) Arterial Blood HCO3 35.8 mmol/L (22.0-26.0) Arterial Blood Oxygen Saturation 94.3 % (95-100) Arterial Blood Base Excess 10.6 (-2-2) Delon Test Positive Height (Feet): 5 Height (Inches): 10.00 Weight (Pounds): 161 Objective General: no bleeding or chills Head: normocephalic, atraumatic Neck: supple ++ NG Respiratory: generally reduced bs, on bipap Cardiovascular: tachycardia, HS1, HS2, RRR Gastrointestinal: non tender, soft Musculoskeletal: normal inspection Neurologic: sedated on ventilator Skin: no rash, palpation normal Conrado Morel MD Feb 11, 2019 16:13
--- NOTE | 2019-02-11 16:50 | NUR ---
NURSE NOTES: Patient reintubated per Dr White's order. Dr Terry, ER physician, intubated the patient. ]Patient given Etomidate 7mg and then another dose of 5mg IVP. Patient successfully intubated with 7.5cm ETT with 23cm at the lip line. Chest x-ray ordered to confirm placement. Will follow up with x-ray windows migration technician and wait for result of chest x-ray. Patient still restless at this time. ABG ordered for one hour post intubation. Will notify Dr White of results. Ventilator setting AC 16, TV 500, FiO2 30%, and PEEP 5. Patient repositioned with HOB at 30 degrees. Blood pressure 108/70, HR 79, SpO2 100%, and RR 18. Will continue to monitor and resume fentanyl drip per protocol for agitation during intubation.
[2019-02-11] MEDS: LORazepam Inj 2mg/ml 1ml IV PRN ×2 (17:00→21:24)
[2019-02-11] MEDS: fentaNYL Citrate 1000 MCG in NS 100ml IV SCH (17:18)
--- NOTE | 2019-02-11 17:30 | NUR ---
NURSE NOTES: Fentanyl resumed at 10mcg/hr and the patient was still restless with RASS of +3 at this time. Fentanyl increased to 50mcg/hr to calm patient. PICC line dressing changed at this time. Dressing had come off because patient's skin was weeping. Patient bed in low position with bed alarm on and call light in reach at this time. Will continue to monitor sedation level and titrate fentanyl per protocol.
--- NOTE | 2019-02-11 18:15 | NUR ---
NURSE NOTES: Notified Dr White regarding ABG result. No new orders.
--- NOTE | 2019-02-11 19:30 | NUR ---
HAND-OFF: Report given to GENNY Cox. Patient RASS score -2 on fentanyl 50mcg/hr at this time. Consent for tracheostomy and bronchoscopy in the chart, signed by son. Dr Blake notified that son wants to speak to him regarding the procedure prior to surgery. Endorsed to follow up.
--- NOTE | 2019-02-11 19:30 | NUR ---
NURSE NOTES: Received pt orally intubated sedated with Fentanyl drip at 50mcg/min, Bilateral soft wrist restraints on for safety to avoid self extubation, NSR on the monitor, Bp stable, afebrile.Extremities with 3-4+edema. RT arm wheeping with fluids. Scrotal edema also was noted.Will continue to monitor.
--- NOTE | 2019-02-11 20:04 | Cardiology Progress Note ---
Assessment/Plan Assessment/Plan 1. Cardiopulmonary arrest due to anoxia, 2D echo reveals normal LVEF. 2. Non-STEMI, conservative management in face of DNR. 3. Moderate aortic regurgitation. 4. Acute respiratory failure, got re-intubated, plan is for trach placement. 5. Hypernatremia, better with hypotonic fluids. 6. Aspiration pneumonia/leukocytosis slightly worsened. Subjective Subjective Sinus rhythm at rate of 79. Got re-intubated with FiO2 of 30%. Objective Last 24 Hour Vital Signs Date Time Temp Pulse Resp B/P (MAP) Pulse Ox O2 Delivery O2 Flow Rate FiO2 02/11/19 19:15 18 Mechanical Ventilator 30 02/11/19 19:05 74 16 100 Mechanical Ventilator 30 66 16 30 30 02/11/19 19:00 66 16 102/67 (79) 100 02/11/19 19:00 18 Mechanical Ventilator 30 02/11/19 18:30 66 15 90/71 (77) 100 02/11/19 18:30 19 Mechanical Ventilator 30 02/11/19 18:00 19 Mechanical Ventilator 30 02/11/19 18:00 66 16 102/67 (79) 100 02/11/19 18:00 66 16 102/67 (79) 100 02/11/19 17:45 19 Mechanical Ventilator 30 02/11/19 17:45 73 15 113/73 (86) 100 02/11/19 17:30 77 17 108/70 (83) 100 02/11/19 17:30 17 Mechanical Ventilator 30 02/11/19 17:18 17 Mechanical Ventilator 30 02/11/19 17:02 89 17 100 Mechanical Ventilator 30 02/11/19 17:00 77 17 108/70 (83) 100 02/11/19 16:57 89 17 30 02/11/19 16:00 97.9 76 18 128/69 (88) 100 02/11/19 16:00 30 02/11/19 16:00 79 02/11/19 16:00 Bi-pap 02/11/19 15:20 81 15 100 Full Face 30 83 17 100 Bi-Pap 02/11/19 15:00 75 18 128/66 (86) 100 02/11/19 14:00 79 14 135/81 (99) 100 02/11/19 13:00 74 18 141/79 (99) 100 8/26/19 12:42 64 16 100 Full Face 30 02/11/19 12:00 30 02/11/19 12:00 Bi-pap 02/11/19 12:00 74 02/11/19 12:00 98.2 68 16 133/64 (87) 100 02/11/19 11:20 66 16 99 Full Face 30 66 16 99 Bi-Pap 02/11/19 11:00 68 17 124/66 (85) 100 02/11/19 10:00 76 16 181/120 (140) 100 02/11/19 09:15 181/120 02/11/19 09:00 76 18 139/70 (93) 100 02/11/19 08:40 76 16 100 Full Face 30 02/11/19 08:00 Bi-pap 02/11/19 08:00 30 02/11/19 08:00 98.0 85 16 131/74 (93) 100 02/11/19 08:00 69 02/11/19 07:12 63 17 100 Full Face 30 63 17 100 Bi-Pap 02/11/19 07:00 69 15 131/62 (85) 100 02/11/19 06:00 67 20 121/66 (84) 100 02/11/19 05:14 81 16 100 Full Face 30 Bi-Pap 02/11/19 05:00 68 17 88/69 (75) 100 02/11/19 04:00 Bi-pap 02/11/19 04:00 99.4 75 15 113/72 (86) 100 02/11/19 04:00 30 02/11/19 04:00 86 02/11/19 03:10 100 15 100 Full Face 30 81 17 100 Bi-Pap 02/11/19 03:00 75 16 138/71 (93) 100 02/11/19 02:00 85 16 114/68 (83) 100 02/11/19 01:00 88 17 138/77 (97) 100 02/11/19 00:39 100 15 100 Full Face 30 Bi-Pap 02/11/19 00:00 Bi-pap 02/11/19 00:00 69 02/11/19 00:00 97.9 86 16 139/65 (89) 100 02/11/19 00:00 30 02/10/19 23:47 72 19 100 Full Face 30 73 21 100 Bi-Pap 02/10/19 23:00 70 12 137/76 (96) 100 02/10/19 22:00 92 19 173/81 (111) 100 02/10/19 21:00 91 13 123/49 (73) 95 02/10/19 21:00 100 15 100 Full Face 25 Bi-Pap 02/10/19 20:30 93 13 120/70 (87) 96 Intake and Output 02/10/19 02/11/19 19:00 07:00 Intake Total 910 ml 1465.1 ml Output Total 2375 ml 985 ml Balance -1465 ml 480.1 ml Intake Free Water 100 ml 100 ml IV Total 330 ml 825.1 ml Tube Feeding 450 ml 540 ml Other 30 ml Output Urine Total 2375 ml 985 ml # Bowel Movements 1 1 2D Echo: LVEF 55%, moderate AR Laboratory Tests Test 02/10/19 21:00 02/11/19 04:00 02/11/19 08:25 02/11/19 17:40 Arterial Blood pH 7.486 (7.350-7.450) 7.460 (7.350-7.450) 7.410 (7.350-7.450) Arterial Blood Partial Pressure CO2 49.9 mmHg (35.0-45.0) H 51.5 mmHg (35.0-45.0) H 61.5 mmHg (35.0-45.0) *H Arterial Blood Partial Pressure O2 55.0 mmHg (75.0-100.0) L 75.8 mmHg (75.0-100.0) 60.8 mmHg (75.0-100.0) L Arterial Blood HCO3 36.8 mmol/L (22.0-26.0) H 35.8 mmol/L (22.0-26.0) H 38.1 mmol/L (22.0-26.0) H Arterial Blood Oxygen Saturation 90.1 % (95-100) L 94.3 % (95-100) L 89.6 % (95-100) *L Arterial Blood Base Excess 11.9 (-2-2) *H 10.6 (-2-2) *H 11.5 (-2-2) *H Delon Test Positive Positive Positive White Blood Count 17.1 K/UL (4.8-10.8) H Red Blood Count 3.27 M/UL (4.70-6.10) L Hemoglobin 9.9 G/DL (14.2-18.0) L Hematocrit 31.4 % (42.0-52.0) L Mean Corpuscular Volume 96 FL (80-99) Mean Corpuscular Hemoglobin 30.4 PG (27.0-31.0) Mean Corpuscular Hemoglobin Concent 31.6 G/DL (32.0-36.0) L Red Cell Distribution Width 14.7 % (11.6-14.8) Platelet Count 109 K/UL (150-450) L Mean Platelet Volume 7.0 FL (6.5-10.1) Neutrophils (%) (Auto) % (45.0-75.0) Lymphocytes (%) (Auto) % (20.0-45.0) Monocytes (%) (Auto) % (1.0-10.0) Eosinophils (%) (Auto) % (0.0-3.0) Basophils (%) (Auto) % (0.0-2.0) Differential Total Cells Counted 100 Neutrophils % (Manual) 95 % (45-75) H Lymphocytes % (Manual) 4 % (20-45) L Monocytes % (Manual) 1 % (1-10) Eosinophils % (Manual) 0 % (0-3) Basophils % (Manual) 0 % (0-2) Band Neutrophils 0 % (0-8) Platelet Estimate Decreased L Platelet Morphology Normal Hypochromasia 1+ Anisocytosis 1+ Sodium Level 143 MMOL/L (136-145) Potassium Level 3.7 MMOL/L (3.5-5.1) Chloride Level 103 MMOL/L (98-107) Carbon Dioxide Level 39 MMOL/L (21-32) H Anion Gap 1 mmol/L (5-15) L Blood Urea Nitrogen 19 mg/dL (7-18) H Creatinine 0.8 MG/DL (0.55-1.30) Estimat Glomerular Filtration Rate mL/min (>60) Glucose Level 125 MG/DL (74-106) H Calcium Level 8.5 MG/DL (8.5-10.1) Phosphorus Level 2.4 MG/DL (2.5-4.9) L Magnesium Level 1.9 MG/DL (1.8-2.4) Total Bilirubin 0.7 MG/DL (0.2-1.0) Direct Bilirubin 0.2 MG/DL (0.0-0.3) Aspartate Amino Transf (AST/SGOT) 32 U/L (15-37) Alanine Aminotransferase (ALT/SGPT) 49 U/L (12-78) Alkaline Phosphatase 63 U/L (46-116) Total Protein 5.1 G/DL (6.4-8.2) L Albumin 2.3 G/DL (3.4-5.0) L Objective HEENT: Atraumatic, arousable, orally intubated, conjunctival pallor. NECK: Cannot assess JVD, no carotid bruit. LUNGS: Bilateral breath sounds. Few rhonchi. No wheezing. CARDIAC: Regular rhythm and rate. Normal S1 and S2. No murmurs, gallops or rubs. ABDOMEN: Soft, non-distended, + BS. EXTREMITIES: No edema, clubbing or cyanosis. Lv Zuniga MD Feb 11, 2019 20:04
[2019-02-11] MEDS: Dyna-Hex 2% Top Sol 2oz TOPIC SCH (20:11)
--- NOTE | 2019-02-11 20:30 | NUR ---
NURSE NOTES: Inserted OGT, placement was verified by RN Roberto Fischer and its in the stomache. PO meds was given, fdg started Glucerna 1.5 at 45ml/hr. HOB kept elevated. On aspiration precaution.
[2019-02-11] MEDS: Eliquis 5mg tablet NGT SCH (20:34)
[2019-02-11] MEDS: Miralax 17gm pkt NG SCH (21:00)
--- NOTE | 2019-02-11 21:22 | Pulmonolgy Critical Care Note ---
Critical Care - Asmt/Plan Assessment/Plan: Pulmonary Critical Care Progress Note HPI Patient is a 73 year olf man with previous history of COPD, CHF, HTN, DM admitted with extreme respiratory distress, intubated in the ED, subsequent Cardiac Arrest. Noted to have hypercapneic respiratory failure. Less interactive today, on continuous BiPAP, ABG stable - felling of family is that Tracheostomy is acceptable to patient, patient reintubated electively, for Tracheosomy tomorrow Allergies: No Known Allergies Past Medical History: COPD/Asthma, CHF, Hypertension, DM All Other Systems: limited Physical Exam Vital signs noted General Appearance: awake Head: normocephalic, atraumatic Eyes: bilateral eye PERRL, bilateral eye EOMI ENT: moist mm, no LN Neck: supple Respiratory: generally reduced BS Cardiovascular: tachycardia, HS1, HS2, RRR Gastrointestinal: non tender, soft Musculoskeletal: normal inspection Neurologic: awake, no focal signs Skin: no rash, palpation normal Impression: COPD exacerbation Hypercapneic respiratory failure S/p cardiac arrest in the ED CHF HTN Diabetes Plan ACVC, ABG noted Adjust FIO2 for sats 90-94% HHN Q4 IV Solumedrol - reduce Sedation PRN Sz management Monitor labs PPX Antibiotics per ID DNR status Labs noted Chest X-Ray: No consolidation, no effusion, ETT tube 7cm, PICC line good position Critical Care - Objective Last 24 Hour Vital Signs Date Time Temp Pulse Resp B/P (MAP) Pulse Ox O2 Delivery O2 Flow Rate FiO2 02/11/19 20:43 78 16 30 02/11/19 19:15 18 Mechanical Ventilator 30 02/11/19 19:05 74 16 100 Mechanical Ventilator 30 66 16 30 30 02/11/19 19:00 66 16 102/67 (79) 100 02/11/19 19:00 18 Mechanical Ventilator 30 02/11/19 18:30 66 15 90/71 (77) 100 02/11/19 18:30 19 Mechanical Ventilator 30 02/11/19 18:00 19 Mechanical Ventilator 30 02/11/19 18:00 66 16 102/67 (79) 100 02/11/19 18:00 66 16 102/67 (79) 100 02/11/19 17:45 19 Mechanical Ventilator 30 02/11/19 17:45 73 15 113/73 (86) 100 02/11/19 17:30 77 17 108/70 (83) 100 02/11/19 17:30 17 Mechanical Ventilator 30 02/11/19 17:18 17 Mechanical Ventilator 30 02/11/19 17:02 89 17 100 Mechanical Ventilator 30 02/11/19 17:00 77 17 108/70 (83) 100 02/11/19 16:57 89 17 30 02/11/19 16:50 30 02/11/19 16:00 97.9 76 18 128/69 (88) 100 02/11/19 16:00 30 02/11/19 16:00 79 02/11/19 16:00 Bi-pap 02/11/19 15:20 81 15 100 Full Face 30 83 17 100 Bi-Pap 02/11/19 15:00 75 18 128/66 (86) 100 02/11/19 14:00 79 14 135/81 (99) 100 02/11/19 13:00 74 18 141/79 (99) 100 02/11/19 12:42 64 16 100 Full Face 30 02/11/19 12:00 30 02/11/19 12:00 Bi-pap 02/11/19 12:00 74 02/11/19 12:00 98.2 68 16 133/64 (87) 100 02/11/19 11:20 66 16 99 Full Face 30 66 16 99 Bi-Pap 02/11/19 11:00 68 17 124/66 (85) 100 02/11/19 10:00 76 16 181/120 (140) 100 02/11/19 09:15 181/120 02/11/19 09:00 76 18 139/70 (93) 100 02/11/19 08:40 76 16 100 Full Face 30 02/11/19 08:00 Bi-pap 02/11/19 08:00 30 02/11/19 08:00 98.0 85 16 131/74 (93) 100 02/11/19 08:00 69 02/11/19 07:12 63 17 100 Full Face 30 63 17 100 Bi-Pap 02/11/19 07:00 69 15 131/62 (85) 100 02/11/19 06:00 67 20 121/66 (84) 100 02/11/19 05:14 81 16 100 Full Face 30 Bi-Pap 02/11/19 05:00 68 17 88/69 (75) 100 02/11/19 04:00 Bi-pap 02/11/19 04:00 99.4 75 15 113/72 (86) 100 02/11/19 04:00 30 02/11/19 04:00 86 02/11/19 03:10 100 15 100 Full Face 30 81 17 100 Bi-Pap 02/11/19 03:00 75 16 138/71 (93) 100 02/11/19 02:00 85 16 114/68 (83) 100 02/11/19 01:00 88 17 138/77 (97) 100 02/11/19 00:39 100 15 100 Full Face 30 Bi-Pap 02/11/19 00:00 Bi-pap 02/11/19 00:00 69 02/11/19 00:00 97.9 86 16 139/65 (89) 100 02/11/19 00:00 30 02/10/19 23:47 72 19 100 Full Face 30 73 21 100 Bi-Pap 02/10/19 23:00 70 12 137/76 (96) 100 02/10/19 22:00 92 19 173/81 (111) 100 Accucheck: 123 Critical Care - Subjective ROS Limited/Unobtainable: No FI02: 30 Vent Support Breath Rate: 16 Vent Support Mode: AC Vent Tidal Volume: 500 Sputum Amount: Scant PEEP: 5.0 PIP: 33 I&O: Intake and Output 02/10/19 02/11/19 18:59 06:59 Intake Total 865 ml 1355.1 ml Output Total 2375 ml 985 ml Balance -1510 ml 370.1 ml Intake Free Water 100 ml 100 ml IV Total 330 ml 715.1 ml Tube Feeding 405 ml 540 ml Other 30 ml Output Urine Total 2375 ml 985 ml # Bowel Movements 1 1 ET-Tube: 7.5 ET Position: 24 Johny White MD Feb 11, 2019 21:22
--- NOTE | 2019-02-11 21:27 | NUR ---
NURSE NOTES: Pt is waking up and extremely agitated- ativan 0.5mg ivp was given ,increased Fentanyl drip up to 100mcg/min.
--- NOTE | 2019-02-11 22:24 | Emergency Room Report ---
Physical Exam I was called to intubate this patient by the patient was admitted. With respiratory failure due to COPD with intubation in the emergency department. He sustained a cardiac arrest there. He was resuscitated. Patient has been on BiPAP for 2 days. The plan is to do a tracheostomy tomorrow. The patient is retaining quite a bit of CO2 and has respiratory with fatigue failure. Last 24 Hour Vital Signs Date Time Temp Pulse Resp B/P (MAP) Pulse Ox O2 Delivery O2 Flow Rate FiO2 02/11/19 21:00 74 17 97/72 (80) 100 02/11/19 20:43 78 16 30 02/11/19 20:30 77 16 122/78 (93) 100 02/11/19 20:00 98.0 78 17 83/61 (68) 100 02/11/19 20:00 Mechanical Ventilator 02/11/19 20:00 78 02/11/19 19:15 18 Mechanical Ventilator 30 02/11/19 19:05 74 16 100 Mechanical Ventilator 30 66 16 30 30 02/11/19 19:00 66 16 102/67 (79) 100 02/11/19 19:00 18 Mechanical Ventilator 30 02/11/19 18:30 66 15 90/71 (77) 100 02/11/19 18:30 19 Mechanical Ventilator 30 02/11/19 18:00 19 Mechanical Ventilator 30 02/11/19 18:00 66 16 102/67 (79) 100 02/11/19 18:00 66 16 102/67 (79) 100 02/11/19 17:45 19 Mechanical Ventilator 30 02/11/19 17:45 73 15 113/73 (86) 100 02/11/19 17:30 77 17 108/70 (83) 100 02/11/19 17:30 17 Mechanical Ventilator 30 02/11/19 17:18 17 Mechanical Ventilator 30 02/11/19 17:02 89 17 100 Mechanical Ventilator 30 02/11/19 17:00 77 17 108/70 (83) 100 02/11/19 16:57 89 17 30 02/11/19 16:50 30 02/11/19 16:00 97.9 76 18 128/69 (88) 100 02/11/19 16:00 30 02/11/19 16:00 79 02/11/19 16:00 Bi-pap 02/11/19 15:20 81 15 100 Full Face 30 83 17 100 Bi-Pap 02/11/19 15:00 75 18 128/66 (86) 100 02/11/19 14:00 79 14 135/81 (99) 100 02/11/19 13:00 74 18 141/79 (99) 100 02/11/19 12:42 64 16 100 Full Face 30 02/11/19 12:00 30 02/11/19 12:00 Bi-pap 02/11/19 12:00 74 02/11/19 12:00 98.2 68 16 133/64 (87) 100 02/11/19 11:20 66 16 99 Full Face 30 66 16 99 Bi-Pap 02/11/19 11:00 68 17 124/66 (85) 100 02/11/19 10:00 76 16 181/120 (140) 100 02/11/19 09:15 181/120 02/11/19 09:00 76 18 139/70 (93) 100 02/11/19 08:40 76 16 100 Full Face 30 02/11/19 08:00 Bi-pap 02/11/19 08:00 30 02/11/19 08:00 98.0 85 16 131/74 (93) 100 02/11/19 08:00 69 02/11/19 07:12 63 17 100 Full Face 30 63 17 100 Bi-Pap 02/11/19 07:00 69 15 131/62 (85) 100 02/11/19 06:00 67 20 121/66 (84) 100 02/11/19 05:14 81 16 100 Full Face 30 Bi-Pap 02/11/19 05:00 68 17 88/69 (75) 100 02/11/19 04:00 Bi-pap 02/11/19 04:00 99.4 75 15 113/72 (86) 100 02/11/19 04:00 30 02/11/19 04:00 86 02/11/19 03:10 100 15 100 Full Face 30 81 17 100 Bi-Pap 02/11/19 03:00 75 16 138/71 (93) 100 02/11/19 02:00 85 16 114/68 (83) 100 02/11/19 01:00 88 17 138/77 (97) 100 02/11/19 00:39 100 15 100 Full Face 30 Bi-Pap 02/11/19 00:00 Bi-pap 02/11/19 00:00 69 02/11/19 00:00 97.9 86 16 139/65 (89) 100 02/11/19 00:00 30 02/10/19 23:47 72 19 100 Full Face 30 73 21 100 Bi-Pap 02/10/19 23:00 70 12 137/76 (96) 100 Sp02 EP Interpretation: reviewed, normal General Appearance: lethargic, Chronically Ill Head: normocephalic Eyes: bilateral eye normal inspection, bilateral eye PERRL ENT: moist mucus membranes - Poor dentition missing teeth Neck: full range of motion, supple Respiratory: decreased breath sounds, other - Poor tidal volume Cardiovascular #1: regular rate, rhythm Gastrointestinal: scaphoid Genitourinary: other - Saenz Musculoskeletal: normal range of motion Neurologic: motor strength/tone normal, sensory intact, other - Vocalizing and answering some questions Psychiatric: other - Lethargic and confused Skin: no rash Medical Decision Making Diagnostic Impression: Primary Impression: Respiratory failure Qualified Codes: J96.20 - Acute and chronic respiratory failure, unspecified whether with hypoxia or hypercapnia Additional Impressions: COPD (chronic obstructive pulmonary disease) Qualified Codes: J44.1 - Chronic obstructive pulmonary disease with (acute) exacerbation Status post cardiac arrest ER Course Asked to intubate patient with fatigue on BiPAP. See procedure notes. Prior ventilator settings resumed. Sedation orders were renewed. Blood gas ordered Post intubation chest x-ray with appropriate endotracheal tube placement. Patient improved but critical Laboratory Tests Test 02/10/19 08:34 02/10/19 13:44 02/10/19 21:00 02/11/19 04:00 Arterial Blood pH 7.454 (7.350-7.450) 7.416 (7.350-7.450) 7.486 (7.350-7.450) Arterial Blood Partial Pressure CO2 57.3 mmHg (35.0-45.0) *H 63.4 mmHg (35.0-45.0) *H 49.9 mmHg (35.0-45.0) H Arterial Blood Partial Pressure O2 61.0 mmHg (75.0-100.0) L 215.8 mmHg (75.0-100.0) H 55.0 mmHg (75.0-100.0) L Arterial Blood HCO3 39.3 mmol/L (22.0-26.0) H 39.8 mmol/L (22.0-26.0) H 36.8 mmol/L (22.0-26.0) H Arterial Blood Oxygen Saturation 91.7 % (95-100) L 98.9 % (95-100) 90.1 % (95-100) L Arterial Blood Base Excess 13.4 (-2-2) *H 13.0 (-2-2) *H 11.9 (-2-2) *H Delon Test Positive Positive Positive White Blood Count 17.1 K/UL (4.8-10.8) H Red Blood Count 3.27 M/UL (4.70-6.10) L Hemoglobin 9.9 G/DL (14.2-18.0) L Hematocrit 31.4 % (42.0-52.0) L Mean Corpuscular Volume 96 FL (80-99) Mean Corpuscular Hemoglobin 30.4 PG (27.0-31.0) Mean Corpuscular Hemoglobin Concent 31.6 G/DL (32.0-36.0) L Red Cell Distribution Width 14.7 % (11.6-14.8) Platelet Count 109 K/UL (150-450) L Mean Platelet Volume 7.0 FL (6.5-10.1) Neutrophils (%) (Auto) % (45.0-75.0) Lymphocytes (%) (Auto) % (20.0-45.0) Monocytes (%) (Auto) % (1.0-10.0) Eosinophils (%) (Auto) % (0.0-3.0) Basophils (%) (Auto) % (0.0-2.0) Differential Total Cells Counted 100 Neutrophils % (Manual) 95 % (45-75) H Lymphocytes % (Manual) 4 % (20-45) L Monocytes % (Manual) 1 % (1-10) Eosinophils % (Manual) 0 % (0-3) Basophils % (Manual) 0 % (0-2) Band Neutrophils 0 % (0-8) Platelet Estimate Decreased L Platelet Morphology Normal Hypochromasia 1+ Anisocytosis 1+ Sodium Level 143 MMOL/L (136-145) Potassium Level 3.7 MMOL/L (3.5-5.1) Chloride Level 103 MMOL/L (98-107) Carbon Dioxide Level 39 MMOL/L (21-32) H Anion Gap 1 mmol/L (5-15) L Blood Urea Nitrogen 19 mg/dL (7-18) H Creatinine 0.8 MG/DL (0.55-1.30) Estimate Glomerular Filtration Rate mL/min (>60) Glucose Level 125 MG/DL (74-106) H Calcium Level 8.5 MG/DL (8.5-10.1) Phosphorus Level 2.4 MG/DL (2.5-4.9) L Magnesium Level 1.9 MG/DL (1.8-2.4) Total Bilirubin 0.7 MG/DL (0.2-1.0) Direct Bilirubin 0.2 MG/DL (0.0-0.3) Aspartate Amino Transferase (AST) 32 U/L (15-37) Alanine Aminotransferase (ALT) 49 U/L (12-78) Alkaline Phosphatase 63 U/L (46-116) Total Protein 5.1 G/DL (6.4-8.2) L Albumin 2.3 G/DL (3.4-5.0) L Test 02/11/19 08:25 02/11/19 17:40 02/12/19 03:10 Arterial Blood pH 7.460 (7.350-7.450) 7.410 (7.350-7.450) Arterial Blood Partial Pressure CO2 51.5 mmHg (35.0-45.0) H 61.5 mmHg (35.0-45.0) *H Arterial Blood Partial Pressure O2 75.8 mmHg (75.0-100.0) 60.8 mmHg (75.0-100.0) L Arterial Blood HCO3 35.8 mmol/L (22.0-26.0) H 38.1 mmol/L (22.0-26.0) H Arterial Blood Oxygen Saturation 94.3 % (95-100) L 89.6 % (95-100) *L Arterial Blood Base Excess 10.6 (-2-2) *H 11.5 (-2-2) *H Delon Test Positive Positive White Blood Count 15.4 K/UL (4.8-10.8) H Red Blood Count 2.95 M/UL (4.70-6.10) L Hemoglobin 8.9 G/DL (14.2-18.0) L Hematocrit 28.0 % (42.0-52.0) L Mean Corpuscular Volume 95 FL (80-99) Mean Corpuscular Hemoglobin 30.2 PG (27.0-31.0) Mean Corpuscular Hemoglobin Concent 31.8 G/DL (32.0-36.0) L Red Cell Distribution Width 15.1 % (11.6-14.8) H Platelet Count 102 K/UL (150-450) L Mean Platelet Volume 7.1 FL (6.5-10.1) Neutrophils (%) (Auto) % (45.0-75.0) Lymphocytes (%) (Auto) % (20.0-45.0) Monocytes (%) (Auto) % (1.0-10.0) Eosinophils (%) (Auto) % (0.0-3.0) Basophils (%) (Auto) % (0.0-2.0) Neutrophils % (Manual) Pending Lymphocytes % (Manual) Pending Platelet Estimate Pending Platelet Morphology Pending Prothrombin Time 11.3 SEC (9.30-11.50) Prothrombin Time INR 1.1 (0.9-1.1) PTT 28 SEC (23-33) Sodium Level 145 MMOL/L (136-145) Potassium Level 4.4 MMOL/L (3.5-5.1) Chloride Level 105 MMOL/L (98-107) Carbon Dioxide Level 39 MMOL/L (21-32) H Anion Gap 1 mmol/L (5-15) L Blood Urea Nitrogen 18 mg/dL (7-18) Creatinine 0.9 MG/DL (0.55-1.30) Estimate Glomerular Filtration Rate mL/min (>60) Glucose Level 144 MG/DL (74-106) H Calcium Level 8.3 MG/DL (8.5-10.1) L Phosphorus Level 3.0 MG/DL (2.5-4.9) Magnesium Level 1.8 MG/DL (1.8-2.4) Total Bilirubin 0.6 MG/DL (0.2-1.0) Aspartate Amino Transferase (AST) 23 U/L (15-37) Alanine Aminotransferase (ALT) 41 U/L (12-78) Alkaline Phosphatase 62 U/L (46-116) Total Protein 4.6 G/DL (6.4-8.2) L Albumin 2.0 G/DL (3.4-5.0) L Globulin 2.6 g/dL Albumin/Globulin Ratio 0.8 (1.0-2.7) L Rhythm Strip Diag. Results EP Interpretation: yes Rhythm: NSR, no PVC's, no ectopy Chest X-Ray Diagnostic Results Chest X-Ray Diagnostic Results : Chest X-Ray Ordered: Yes # of Views/Limited/Complete: 1 View Indication: Other EP Interpretation: Yes Interpretation: no effusion, no pneumothorax, other - Endotracheal tube appropriate placement Impression: Other Electronically Signed by: Electronically signed by Johny Terry MD Last Vital Signs Date Time Temp Pulse Resp B/P (MAP) Pulse Ox O2 Delivery O2 Flow Rate FiO2 02/11/19 21:00 74 17 97/72 (80) 100 02/11/19 20:43 30 02/11/19 20:00 98.0 02/11/19 20:00 Mechanical Ventilator Status: improved Disposition: ADMITTED INPATIENT Condition: Critical Referrals: NOT CHOSEN IPA/,REFERRING (PCP) Procedures Intubation Intubation : Consent: Emergent Intubation Method: orotracheal Tube Size (cm): 7.5 Medications: Etomidate Breath Sounds after Intubation: equal Intubation Complications: no complications Post Intubation Xray: Yes Attempts: Other - two Patient Tolerated: Well Complications: None Progress After 7 mg of etomidate first attempt was unsuccessful due to a floppy vallecula and inability to visualize the vocal cords. 5 more milligrams of etomidate were given and #4 MAC blade was used to visualize the vocal cords well and the patient was intubated. During the procedure O2 saturation remained in the 100% Johny Terry MD Feb 11, 2019 22:24
[2019-02-11] MEDS ORDERED: Etomidate 40mg/20ml Inj IV ONE (22:40)
[2019-02-12] VITALS (43 sets, daily range): BP systolic 67–155; BP diastolic 40–99
--- NOTE | 2019-02-12 | NUR ---
NURSE NOTES: Placed NPO after midnight per md, for Trache and Bronch in am.
--- NOTE | 2019-02-12 02:00 | NUR ---
: NURSE NOTES: Resting well at this time VSS
[2019-02-12] MEDS: Albuterol/Ipratropium 3ml neb HHN SCH ×6 (03:05→22:56)
[2019-02-12] MEDS: fentaNYL Citrate 1000 MCG in NS 100ml IV SCH (03:21)
[2019-02-12] MEDS: Vancomycin 750mg/NS 275ml IVPB SCH ×6 (03:34→19:56)
--- NOTE | 2019-02-12 04:00 | NUR ---
NURSE NOTES: complete bed bath with partial bed change was done.
[2019-02-12 04:52] LABS: HEMOGLOBIN 8.9 G/DL (14.2-18.0); MEAN CORPUSCULAR VOLUME 95 FL (80-99); PLATELET COUNT 102 K/UL (150-450); RED BLOOD COUNT 2.95 M/UL (4.70-6.10); RED CELL DISTRIBUTION WIDTH 15.1 % (11.6-14.8); WHITE BLOOD COUNT 15.4 K/UL (4.8-10.8)
[2019-02-12 04:59] LABS: INR 1.1 (0.9-1.1)
[2019-02-12 05:14] LABS: ALANINE AMINOTRANSFERASE 41 U/L (12-78); ALBUMIN/GLOBULIN RATIO 0.8 (1.0-2.7); ALKALINE PHOSPHATASE 62 U/L (46-116); ANION GAP 1 mmol/L (5-15); ASPARTATE AMINO TRANSFERASE 23 U/L (15-37); BILIRUBIN,TOTAL 0.6 MG/DL (0.2-1.0); BLOOD UREA NITROGEN 18 mg/dL (7-18); CALCIUM 8.3 MG/DL (8.5-10.1); CARBON DIOXIDE 39 MMOL/L (21-32); CHLORIDE 105 MMOL/L (98-107); CREATININE 0.9 MG/DL (0.55-1.30); POTASSIUM 4.4 MMOL/L (3.5-5.1); SODIUM 145 MMOL/L (136-145)
[2019-02-12] MEDS: Meropenem 2 GM in NS 110 ML IVPB SCH ×3 (05:55→22:23)
[2019-02-12] MEDS: NovoLOG Insulin Flexpen SUBQ SCH ×3 (05:55→17:15)
--- NOTE | 2019-02-12 06:00 | NUR ---
NURSE NOTES:No resp. distres noted. Blood sugar 91. No coverage.
--- NOTE | 2019-02-12 06:19 | Anethesia Preoperative Eval ---
Anesthesia Pre-op PMH/ROS General Date of Evaluation: Feb 12, 2019 Time of Evaluation: 06:11 Anesthesiologist: Yakelin ASA Score: ASA 4 Mallampati Score Class I : Soft palate, uvula, fauces, pillars visible Class II: Soft palate, uvula, fauces visible Class III: Soft palate, base of uvula visible Class IV: Only hard plate visible Mallampati Classification: Class III Surgeon: Hayden Diagnosis: Ventilatory Failure Surgical Procedure: Tracheostomy Anesthesia History: none Family History: no anesthesia problems Allergies: Coded Allergies: No Known Allergies (Unverified , 06/05/18) Medications: see eMAR Patient NPO?: Yes Past Medical History Cardiovascular: Reports: HTN, other - CHF Pulmonary: Reports: asthma, COPD, other - Emphysema, Pulmonary HTN Neurologic/Psychiatric: Reports: dementia Endocrine: Reports: DM Anesthesia Pre-op Phys. Exam Physician Exam Last Vital Signs Date Time Temp Pulse Resp B/P (MAP) Pulse Ox O2 Delivery O2 Flow Rate FiO2 02/12/19 05:09 59 16 30 02/12/19 04:30 112/62 (79) 100 02/12/19 04:00 Mechanical Ventilator 02/12/19 04:00 97.8 Constitutional: NAD Neurologic: CN 2-12 intact Cardiovascular: RRR Respiratory: CTA Gastrointestinal: S/NT/ND Airway Exam Mallampati Score: Class III MO: limited ROM: limited Teeth: missing Anesthesia Pre-op A/P Labs Hematology Test 02/12/19 03:10 White Blood Count 15.4 K/UL (4.8-10.8) H Red Blood Count 2.95 M/UL (4.70-6.10) L Hemoglobin 8.9 G/DL (14.2-18.0) L Hematocrit 28.0 % (42.0-52.0) L Mean Corpuscular Volume 95 FL (80-99) Mean Corpuscular Hemoglobin 30.2 PG (27.0-31.0) Mean Corpuscular Hemoglobin Concent 31.8 G/DL (32.0-36.0) L Red Cell Distribution Width 15.1 % (11.6-14.8) H Platelet Count 102 K/UL (150-450) L Mean Platelet Volume 7.1 FL (6.5-10.1) Neutrophils (%) (Auto) % (45.0-75.0) Lymphocytes (%) (Auto) % (20.0-45.0) Monocytes (%) (Auto) % (1.0-10.0) Eosinophils (%) (Auto) % (0.0-3.0) Basophils (%) (Auto) % (0.0-2.0) Neutrophils % (Manual) Pending Lymphocytes % (Manual) Pending Platelet Estimate Pending Platelet Morphology Pending Coagulation Test 02/12/19 03:10 Prothrombin Time 11.3 SEC (9.30-11.50) Prothromb Time International Ratio 1.1 (0.9-1.1) Activated Partial Thromboplast Time 28 SEC (23-33) Chemistry Test 02/12/19 03:10 Sodium Level 145 MMOL/L (136-145) Potassium Level 4.4 MMOL/L (3.5-5.1) Chloride Level 105 MMOL/L (98-107) Carbon Dioxide Level 39 MMOL/L (21-32) H Anion Gap 1 mmol/L (5-15) L Blood Urea Nitrogen 18 mg/dL (7-18) Creatinine 0.9 MG/DL (0.55-1.30) Estimat Glomerular Filtration Rate mL/min (>60) Glucose Level 144 MG/DL (74-106) H Calcium Level 8.3 MG/DL (8.5-10.1) L Phosphorus Level 3.0 MG/DL (2.5-4.9) Magnesium Level 1.8 MG/DL (1.8-2.4) Total Bilirubin 0.6 MG/DL (0.2-1.0) Aspartate Amino Transf (AST/SGOT) 23 U/L (15-37) Alanine Aminotransferase (ALT/SGPT) 41 U/L (12-78) Alkaline Phosphatase 62 U/L (46-116) Total Protein 4.6 G/DL (6.4-8.2) L Albumin 2.0 G/DL (3.4-5.0) L Globulin 2.6 g/dL Albumin/Globulin Ratio 0.8 (1.0-2.7) L Risk Assessment & Plan Assessment: ASA 4 Plan: GA, SED, GlideScope Go Status Change Before Surgery: No Pre-Antibiotics Drug: Gerry Sherman MD Feb 12, 2019 06:19
--- NOTE | 2019-02-12 07:26 | NUR ---
HAND-OFF: Report given to Lilia ROYAL.
--- NOTE | 2019-02-12 07:30 | NUR ---
NURSE NOTES: Received change of shift report from Brooke ROYAL. Pt is sedated -2 light sedation while on Fentanyl drip at 50mcg/hr, opens eyes to touch. Pt is orally intubated ETT 7.5 at 23cm right lipline with vent settings of AC 16, VT500, Peep 5.0, FIO2 30% with 100% O2sat and diminished lung sounds on auscultation. night monitor displays NSR with heart rate in the low 60's, and weak peripheral pulses on palpation. Edema noted on bilateral extremities, worse on upper arms. Temp 98.1F axillary. Oral gastric tube is in place with feeding on hold since midnight per warehouse shift supervisor for scheduled procedure today (trach placement and bronchoscopy). Abdomen is soft/nontender to touch with hypoactive bowel sounds. Pt has double-lumen PICC on left upper arm, intact/patent with Fentanyl infusing and TKO. Saenz catheter is in place draining yellow/mildly cloudy urine with sediments. Pt has bilateral soft wrist restraints in place to prevent self extubation, pt pulled out NG tube previous shift. Bed is locked with three side rails up in lowest position and call light within reach. Will continue to monitor pt and follow plan of care per MD orders and protocol.
--- NOTE | 2019-02-12 08:00 | NUR ---
NURSE NOTES: Fentanyl drip has been titrated up to 90mcg/hr now to achieve/maintain RASS score -2 light sedation. Pt is restless, moving/kicked legs and attempting to reach for ET tube even while on bilateral soft wrist restraints.
[2019-02-12] MEDS: Docusate 100mg tablet NG SCH ×2 (08:21→17:00)
[2019-02-12] MEDS: Eliquis 5mg tablet NGT SCH ×2 (08:21→17:15)
[2019-02-12] MEDS: Solu-MEDROL 40mg Inj IVP SCH ×2 (08:22→21:24)
[2019-02-12] MEDS: Pantoprazole Inj IVP SCH ×2 (08:23→21:24)
--- NOTE | 2019-02-12 09:10 | NUR ---
RESPIRATORY NOTE: Pt on trach collar 30% 8LPM. SaO2 100%, HR 83, RR18. Cuff deflated. Will continue to monitor. GENNY heller. Addendum: 02/12/19 at 0926 by FRIDA LARA RT DISREGARD PREVIOUS RT NOTE: NOTE MEANT FOR ANOTHER PATIENT.
[2019-02-12] MEDS: LORazepam Inj 2mg/ml 1ml IV PRN ×3 (09:11→19:59)
--- NOTE | 2019-02-12 09:11 | NUR ---
NURSE NOTES: Pt is restless while on Fentanyl drip at 90cmg/hr. Pt kicked me while standing at his bedside and then dangled his feet off the side of the bed. Ativan was administered as ordered for PRN anxiety. Fentanyl drip is being titrated up to achieve and maintain RASS score of -2 light sedation. Oral care was done. AM meds administered with the exception of Colace and Eliquis. Saenz catheter drainage bag was changed as the previous one was clogged and not draining properly. VS stable.
[2019-02-12] MEDS: DOPamine 400mg/250ml 250 ML IV SCH ×2 (09:15→17:01)
[2019-02-12] MEDS ORDERED: Bupivacaine w/Epi 0.5% 30ml Vial INJ ONE (09:36)
[2019-02-12] MEDS ORDERED: Lidocaine 1% 10mg/ml/Epi 0.005mg/ml 30ml vial INJ ONE (09:38)
--- NOTE | 2019-02-12 09:40 | NUR ---
Social Service Note GARTH spoke with son Jah Holly [phone] regarding updating a POLST. Currently the POLST signed in chart by son dated 01/26/19 indicates DNR/DNI. Patient is for trach today. Son still wishes for DNR. When son visits next he will update POLST. Patient will require sub-acute placement upon discharge. Will continue to monitor and assist as needed.
[2019-02-12] MEDS ORDERED: NS Irrig 1000ml IRRIG ONE (09:51)
[2019-02-12] MEDS ORDERED: Lidocaine 1% MPF 10mg/ml 5ml ONE (10:09)
[2019-02-12] MEDS ORDERED: fentaNYL 100 mcg/2 mL IV ONE (10:09)
[2019-02-12] MEDS ORDERED: Propofol 200mg/20ml IV ONE (10:09)
[2019-02-12] MEDS ORDERED: Midazolam 2mg/2ml Inj ONE (10:09)
[2019-02-12] MEDS ORDERED: Tubing IV Secondary IV ONE (10:10)
[2019-02-12] MEDS ORDERED: NS 275ml ONE (10:10)
--- NOTE | 2019-02-12 10:45 | Diagnostic Imaging Report ---
Indication: Reason For Exam: TUBE PLCMT Technique: One view of the chest Comparison: 02/07/2019 Findings: Interim development of hazy opacities of both lung bases, may reflect developing pleural effusions versus hazy infiltrate. The heart size is normal. Lungs remain hyperinflated. Left arm PICC and endotracheal tube remain. Nasogastric tube is no longer evident Impression: Hazy bilateral basilar opacities, developing since prior exam 02/07/2019, may reflect pleural effusions, infiltrates, or both Other stable findings as described
--- NOTE | 2019-02-12 10:50 | NUR ---
NURSE NOTES: Pt is being transferred via hospital bed to OR for trach placement and bronchoscopy, accompanied by RT and myself (RN). Consent is filed in paper chart. Fentanyl drip is being placed on hold currently. Family (pt's son) is aware and has been contacted/notified by OR.
[2019-02-12] MEDS ORDERED: LR 1000ml ONE (11:00)
[2019-02-12] MEDS ORDERED: Sterile Water Irrig 1000ml IRRIG ONE (11:00)
--- NOTE | 2019-02-12 12:30 | NUR ---
NURSE NOTES: Pt was transferred back to ICU after trach placement and bronchoscopy procedure. Per OR nurse report, pt tolerated procedure well. Pt was placed back on manager science in ICU. VS stable. Pt was cleaned, gown/linens changed, and pt was repositioned. Blood glucose is 100. Temp 97.5F axillary. Oral care done. Trach site dressing is dry/intact.
--- NOTE | 2019-02-12 12:30 | NUR ---
RESPIRATORY NOTE: Pt is back from OR due to trach placement and bronchoscopy. Trach is cuffed sheila 8. Back up trach bedside. Ambubag bedside. Vent settings remains the same. Suctioned pt with no complications. Will continue to monitor.
--- NOTE | 2019-02-12 13:00 | NUR ---
NURSE NOTES: Pt is currently on Fentanyl drip at 50mcg/hr to maintain RASS score of -2 light sedation. VS stable.
--- NOTE | 2019-02-12 13:36 | Brief Operative Note ---
Immediate Post Operative Note Operative Note Pre-op Diagnosis: respiratory insufficiency Procedure: tracheostomy bronchoscopy Post-op Diagnosis: same as pre-op Surgeon: taylor Anesthesiologist: johnathan mills Anesthesia: general Specimen: none Complications: none Condition: stable Fluids: see records Estimated Blood Loss: minimal Drains: none Implant(s) used?: No Kris Blake Feb 12, 2019 13:36
--- NOTE | 2019-02-12 14:15 | NUR ---
NURSE NOTES: Pt is maintained on Fentanyl drip at 50mcg/hr to maintain RASS score -2 light sedation. VS stable. Pt has been repositioned.
--- NOTE | 2019-02-12 15:24 | NUR ---
CASE MANAGEMENT: REVIEW 02/12/2019 SI:COPD EXACERBATION. ASPIRATION PNA. T 97.5 RR 17 B/P 111/63 SATS 100% ON MECH VENT FIO2 30 WBC 15.4 CO2 39 GLU 144 CA 8.3 IS:SOLU MEDROL IV Q12H LOVENOX SUBQ QD K PHOS IV X1 PROTONIX IV Q12H MAG SULFATE IV X1 FENTANYL PER PARAMETERS DOPAMINE PER PARAMETERS KCL IV VANCO IV Q8H MEROPENEM IV Q8H ICU
--- NOTE | 2019-02-12 15:30 | NUR ---
NURSE NOTES: Ativan was administered as PRN order for anxiety/restlessness. VS stable. Fentanyl drip is currently at 20mcg/hr; higher dose causes hypotension to SBP below 90. VS currently stable. Tylenol via OGT was administered for mild pain (post tracheostomy placement today). OGT feeding Glucerna 1.5 was resumed as ordered by Dr Blake. No gastric residual noted. Free water flush with 30ml.
[2019-02-12] MEDS: Acetaminophen 650mg/20.3ml NG PRN (15:31)
--- NOTE | 2019-02-12 15:33 | Nephrology Progress Note ---
Assessment/Plan Problem List: (1) Cardiac arrest (2) Prerenal azotemia (3) Hypernatremia (4) Hypoalbuminemia (5) HTN (hypertension) Assessment Now extubated Pre renal Azotemia due to - Dehydration- - High Protein catabolic state as result of Doxy and steroids HyperNatremia due to free water deficit HypoAlbuminemia Plan Sugg: Tracheostomy 02/12 keep bp in check stop D5W IV fluid Avoid Nephrotoxics Monitor lytes per consultants Subjective ROS Limited/Unobtainable: Yes Objective Objective Last 24 Hour Vital Signs Date Time Temp Pulse Resp B/P (MAP) Pulse Ox O2 Delivery O2 Flow Rate FiO2 02/12/19 15:11 68 16 100 Mechanical Ventilator 30 63 16 30 02/12/19 15:00 18 Mechanical Ventilator 100 02/12/19 14:00 68 16 88/56 (67) 100 02/12/19 14:00 16 Mechanical Ventilator 100 02/12/19 13:02 71 16 Mechanical Ventilator 30 02/12/19 13:00 73 14 99/59 (72) 100 02/12/19 13:00 18 Mechanical Ventilator 100 02/12/19 12:00 Trach Collar 02/12/19 12:00 30 02/12/19 12:00 78 02/12/19 12:00 18 Mechanical Ventilator 100 02/12/19 12:00 84 16 Mechanical Ventilator 30 02/12/19 12:00 97.5 88 17 111/63 (79) 100 02/12/19 10:30 75 18 92/52 (65) 100 02/12/19 10:00 73 16 85/43 (57) 100 02/12/19 10:00 16 Mechanical Ventilator 100 02/12/19 09:50 59 16 100 Mechanical Ventilator 30 58 16 30 02/12/19 09:30 82 16 88/47 (61) 100 02/12/19 09:00 83 20 125/98 (107) 99 02/12/19 09:00 20 Mechanical Ventilator 02/12/19 08:30 67 17 93/67 (76) 100 02/12/19 08:00 Mechanical Ventilator 02/12/19 08:00 71 02/12/19 08:00 20 Mechanical Ventilator 100 02/12/19 08:00 30 02/12/19 08:00 98.1 65 17 88/51 (63) 100 02/12/19 07:26 58 16 100 Mechanical Ventilator 30 58 16 30 02/12/19 07:00 74 16 105/50 (68) 100 02/12/19 07:00 18 Mechanical Ventilator 30 02/12/19 06:30 61 16 103/60 (74) 100 02/12/19 06:00 18 Mechanical Ventilator 30 02/12/19 06:00 64 16 89/61 (70) 100 02/12/19 05:30 59 16 115/47 (69) 100 02/12/19 05:09 59 16 30 02/12/19 05:00 64 16 89/61 (70) 100 02/12/19 05:00 16 Mechanical Ventilator 30 02/12/19 04:30 58 16 112/62 (79) 100 02/12/19 04:00 30 02/12/19 04:00 18 Mechanical Ventilator 02/12/19 04:00 97.8 74 16 117/62 (80) 100 02/12/19 04:00 74 02/12/19 04:00 Mechanical Ventilator 02/12/19 03:30 56 16 115/66 (82) 100 02/12/19 03:21 19 30 02/12/19 03:04 54 16 100 Mechanical Ventilator 30 57 16 30 02/12/19 03:00 59 16 92/60 (71) 100 02/12/19 03:00 16 Mechanical Ventilator 30 02/12/19 02:30 53 16 93/48 (63) 100 02/12/19 02:00 59 19 104/63 (77) 94 02/12/19 02:00 18 Mechanical Ventilator 30 02/12/19 01:30 77 19 97/61 (73) 94 02/12/19 01:09 66 16 30 02/12/19 01:00 18 Mechanical Ventilator 30 02/12/19 01:00 61 16 100/40 (60) 100 02/12/19 00:30 57 16 91/40 (57) 100 02/12/19 00:00 30 02/12/19 00:00 Mechanical Ventilator 02/12/19 00:00 18 Mechanical Ventilator 30 02/12/19 00:00 61 02/12/19 00:00 97.6 61 16 98/40 (59) 100 02/11/19 23:30 62 16 97/40 (59) 100 02/11/19 23:00 72 16 86/47 (60) 100 02/11/19 23:00 18 Mechanical Ventilator 30 02/11/19 22:59 70 16 100 Mechanical Ventilator 30 70 16 30 02/11/19 22:30 72 16 87/63 (71) 100 02/11/19 22:00 17 Mechanical Ventilator 30 02/11/19 22:00 72 18 86/63 (71) 100 02/11/19 21:30 72 18 99/72 (81) 100 02/11/19 21:00 74 17 97/72 (80) 100 02/11/19 21:00 17 Mechanical Ventilator 30 02/11/19 20:43 78 16 30 02/11/19 20:30 77 16 122/78 (93) 100 02/11/19 20:00 98.0 78 17 83/61 (68) 100 02/11/19 20:00 17 Mechanical Ventilator 30 02/11/19 20:00 Mechanical Ventilator 02/11/19 20:00 30 02/11/19 20:00 78 02/11/19 19:15 18 Mechanical Ventilator 30 02/11/19 19:05 74 16 100 Mechanical Ventilator 30 66 16 30 30 02/11/19 19:00 66 16 102/67 (79) 100 02/11/19 19:00 18 Mechanical Ventilator 30 02/11/19 18:30 66 15 90/71 (77) 100 02/11/19 18:30 19 Mechanical Ventilator 30 02/11/19 18:00 19 Mechanical Ventilator 30 02/11/19 18:00 66 16 102/67 (79) 100 02/11/19 18:00 66 16 102/67 (79) 100 02/11/19 17:45 19 Mechanical Ventilator 30 02/11/19 17:45 73 15 113/73 (86) 100 02/11/19 17:30 77 17 108/70 (83) 100 02/11/19 17:30 17 Mechanical Ventilator 30 02/11/19 17:18 17 Mechanical Ventilator 30 02/11/19 17:02 89 17 100 Mechanical Ventilator 30 02/11/19 17:00 77 17 108/70 (83) 100 02/11/19 16:57 89 17 30 02/11/19 16:50 30 02/11/19 16:00 97.9 76 18 128/69 (88) 100 8/26/19 16:00 30 02/11/19 16:00 79 02/11/19 16:00 Bi-pap Intake and Output 02/11/19 02/12/19 19:00 07:00 Intake Total 852.850 ml 1206.573 ml Output Total 1100 ml 740 ml Balance -247.150 ml 466.573 ml Intake Free Water 30 ml IV Total 447.850 ml 951.573 ml Tube Feeding 405 ml 225 ml Output Urine Total 1100 ml 740 ml # Bowel Movements 2 3 Laboratory Tests 02/11/19 17:40: Arterial Blood pH 7.410, Arterial Blood Partial Pressure CO2 61.5*H, Arterial Blood Partial Pressure O2 60.8L, Arterial Blood HCO3 38.1H, Arterial Blood Oxygen Saturation 89.6*L, Arterial Blood Base Excess 11.5*H, Delon Test Positive 02/12/19 03:10: White Blood Count 15.4H, Red Blood Count 2.95L, Hemoglobin 8.9L, Hematocrit 28.0L, Mean Corpuscular Volume 95, Mean Corpuscular Hemoglobin 30.2, Mean Corpuscular Hemoglobin Concent 31.8L, Red Cell Distribution Width 15.1H, Platelet Count 102L, Mean Platelet Volume 7.1, Neutrophils (%) (Auto) , Lymphocytes (%) (Auto) , Monocytes (%) (Auto) , Eosinophils (%) (Auto) , Basophils (%) (Auto) , Differential Total Cells Counted 100, Neutrophils % ( Manual) 94H, Lymphocytes % (Manual) 2L, Monocytes % (Manual) 4, Eosinophils % ( Manual) 0, Basophils % (Manual) 0, Band Neutrophils 0, Platelet Estimate DecreasedL, Platelet Morphology Normal, Prothrombin Time 11.3, Prothromb Time International Ratio 1.1, Activated Partial Thromboplast Time 28, Sodium Level 145, Potassium Level 4.4, Chloride Level 105, Carbon Dioxide Level 39H, Anion Gap 1L, Blood Urea Nitrogen 18, Creatinine 0.9, Estimat Glomerular Filtration Rate , Glucose Level 144H, Calcium Level 8.3L, Phosphorus Level 3.0, Magnesium Level 1.8, Total Bilirubin 0.6, Aspartate Amino Transf (AST/SGOT) 23, Alanine Aminotransferase (ALT/SGPT) 41, Alkaline Phosphatase 62, Total Protein 4.6L, Albumin 2.0L, Globulin 2.6, Albumin/Globulin Ratio 0.8L Height (Feet): 5 Height (Inches): 10.00 Weight (Pounds): 160 General Appearance: no apparent distress EENT: other - trached Cardiovascular: normal rate Respiratory/Chest: decreased breath sounds Abdomen: soft Objective no change Felipe Salmon MD Feb 12, 2019 15:33
--- NOTE | 2019-02-12 16:45 | NUR ---
NURSE NOTES: OGT feeding is placed on hold due to unstable vitals, pt is hypotensive and bradycardic and is being placed on Dopamin drip as per MD order and parameters.
--- NOTE | 2019-02-12 17:00 | NUR ---
NURSE NOTES: Pt was started on Dopamin drip as per MD order due to hypotension with SBP dropping below 80 and bradycardia with heart rate fluctuating below 60; even while Fentanyl drip has been placed on hold. Pt is being closely monitored. SBP is slowly increasing to normal range above 90.
--- NOTE | 2019-02-12 18:00 | NUR ---
NURSE NOTES: Fentanyl drip remains on hold at this time, pt is currently -2 lightly sedated per RASS score. Dopamine drip has been titrated to 8mcg/kg/min to maintain SBP above 90 as it was dropping significantly. Urine output is also improving while pt is now on Dopamine drip.
--- NOTE | 2019-02-12 18:00 | Operative Note - Dictated ---
DATE OF OPERATION: 02/12/2019 PREOPERATIVE DIAGNOSIS: Respiratory insufficiency requiring prolonged ventilatory support as well as inability to wean appropriately without positive pressure. POSTOPERATIVE DIAGNOSIS: Respiratory insufficiency requiring prolonged ventilatory support as well as inability to wean appropriately without positive pressure. OPERATION PERFORMED: 1. Tracheostomy. 2. Bronchoscopy. ATTENDING SURGEON: Kris Blake M.D. FILM PAINTER: None. ANESTHESIOLOGIST: Dr. Dong Vallecillo ANESTHESIA: General GETA. ESTIMATED BLOOD LOSS: Minimal. IV FLUIDS: Please see anesthesia records. COMPLICATIONS: None. DRAINS: None. SPECIMENS: None. COUNTS: Sponge and needle count correct x2. WOUND CLASSIFICATION: Class 1. ANTIBIOTICS: The patient on IV scheduled antibiotics for acute active inflammatory process. INDICATIONS FOR PROCEDURE: This is a 73-year-old male who has been admitted to the intensive care unit at [facility] with respiratory insufficiency requiring ventilator support for some time. When the patient was weaned and extubated, he required positive pressure through BiPAP and he was unable to be removed off the BiPAP and eventually required re-intubation. Given these findings, long-term airway was indicated and recommended. Tracheostomy was discussed with the patient and his son who expressed understanding and consented to surgery. OPERATIVE NOTE: The patient was taken to the operating room and placed on the operating table in supine position with bilateral arms out. All bony prominences well padded. SCDs were placed. Preoperative time-out was taken identifying the patient, procedure, operative staff, and surgical staff. General anesthesia was induced and the patient was already intubated by the anesthesiologist. Shoulder roll was placed and the neck was hyperextended. The neck was prepped and draped in standard surgical fashion. Anatomical landmarks were identified. Local anesthetic was infiltrated in the proposed skin incision. A skin incision made approximately 2 cm above the sternal notch and carried down through the skin and subcutaneous tissue to the platysma and median raphae using electrocautery. The median raphe was divided and the strap muscles were split. The trachea was identified and a tracheal hook was placed to stabilize trachea. The first and second tracheal rings were identified and cleared and appropriate exposure was obtained. Following this, the Zakiya flap was made using a fresh #11 scalpel and the flap was carried inferiorly. The ET tube was identified with the assistance of the anesthesiologist and slowly withdrawn. Once the tube was above the area of the window, 8-Yakut Shiley tracheostomy was inserted under direct visualization without complication. The flap was left inferiorly. The patient was then ventilated through the tracheostomy without any issues. Good tidal volumes and pressures. The skin incision was reapproximated using 2-0 Monocryl interrupted sutures. A trach tie was appropriately fashioned. Following this, a bronchoscopy was performed and evacuation of lung cartagena of thick mucus was performed and almost all the lobes. The dimitry was with mild inflammation. No foreign bodies or other abnormalities were identified. All lung cartagena otherwise with edema but stable and no signs of active purulence. Following a clearance of airways, we began the conclusion of our procedure and dressings were applied. The patient was taken back to the intensive care unit in stable condition. Kris Blake M.D. DR: Jan JOB#: [id number] CC:
--- NOTE | 2019-02-12 19:11 | NUR ---
RESPIRATORY NOTE: Received pt on AC 16, 500VT, 30%, PEEP +5. Pt is trach-dependent w/ a cuffed, Shiley 8 tube. Pt currently sedated. B/S bogdan. diminished, sxn small amounts of thick/thin, bridges-brown secretions w/ occasional blood. Vent plugged into red outlet, ambubag at bedside. Pt in no apparent distress at this time. Will continue to monitor pt.
--- NOTE | 2019-02-12 19:11 | NUR ---
HAND-OFF: Report given to Brooke ROYAL. VS stable. Endorsed plan of care.
--- NOTE | 2019-02-12 19:20 | Pulmonolgy Critical Care Note ---
Critical Care - Asmt/Plan Assessment/Plan: Pulmonary Critical Care Progress Note HPI Patient is a 73 year olf man with previous history of COPD, CHF, HTN, DM admitted with extreme respiratory distress, intubated in the ED, subsequent Cardiac Arrest. Noted to have hypercapneic respiratory failure. Less interactive today, on continuous BiPAP, ABG stable - felling of family is that Tracheostomy is acceptable to patient, patient s/p Tracheosomy tolerated well Stable on ACVC Allergies: No Known Allergies Past Medical History: COPD/Asthma, CHF, Hypertension, DM All Other Systems: limited Physical Exam Vital signs noted General Appearance: sedated Head: normocephalic, atraumatic Eyes: bilateral eye PERRL, bilateral eye EOMI ENT: moist mm, no LN Neck: supple Respiratory: generally reduced BS Cardiovascular: tachycardia, HS1, HS2, RRR Gastrointestinal: non tender, soft Musculoskeletal: normal inspection Neurologic: sedated, no focal signs Skin: no rash, palpation normal Impression: COPD exacerbation Hypercapneic respiratory failure - s/p Traheostomy S/p cardiac arrest in the ED CHF HTN Diabetes Plan ACVC Adjust FIO2 for sats 90-94% HHN Q4 IV Solumedrol - reduce Sedation PRN Sz management Monitor labs PPX Antibiotics per ID DNR status Labs noted Chest X-Ray: No consolidation, no effusion, ETT tube 7cm, PICC line good position Critical Care - Objective Last 24 Hour Vital Signs Date Time Temp Pulse Resp B/P (MAP) Pulse Ox O2 Delivery O2 Flow Rate FiO2 02/12/19 19:04 92 16 98 Mechanical Ventilator 30 92 16 30 02/12/19 19:00 101 19 86/54 (65) 98 02/12/19 19:00 100/64 02/12/19 18:00 96 15 75/50 (58) 100 02/12/19 18:00 75/50 02/12/19 17:59 97 16 67/46 (53) 100 02/12/19 17:45 88 14 155/99 (117) 99 02/12/19 17:30 89 17 155/75 (101) 100 02/12/19 17:30 89 17 155/75 (101) 100 02/12/19 17:30 58 16 100 Mechanical Ventilator 30 63 16 30 02/12/19 17:15 68 16 82/59 (67) 100 02/12/19 17:01 89/45 02/12/19 17:00 68 14 92/53 (66) 100 02/12/19 16:01 97.5 02/12/19 16:00 30 02/12/19 16:00 Trach Collar 02/12/19 16:00 70 02/12/19 16:00 16 Mechanical Ventilator 100 02/12/19 16:00 97.6 70 16 89/45 (60) 100 02/12/19 15:30 67 16 87/42 (57) 100 02/12/19 15:11 68 16 100 Mechanical Ventilator 30 63 16 30 02/12/19 15:00 18 Mechanical Ventilator 100 02/12/19 15:00 68 16 98/53 (68) 100 02/12/19 14:00 68 16 88/56 (67) 100 02/12/19 14:00 16 Mechanical Ventilator 100 02/12/19 13:02 71 16 Mechanical Ventilator 30 02/12/19 13:00 73 14 99/59 (72) 100 02/12/19 13:00 18 Mechanical Ventilator 100 02/12/19 12:00 Trach Collar 02/12/19 12:00 30 02/12/19 12:00 78 02/12/19 12:00 18 Mechanical Ventilator 100 02/12/19 12:00 84 16 Mechanical Ventilator 30 02/12/19 12:00 97.5 88 17 111/63 (79) 100 02/12/19 10:30 75 18 92/52 (65) 100 02/12/19 10:00 73 16 85/43 (57) 100 02/12/19 10:00 16 Mechanical Ventilator 100 02/12/19 09:50 59 16 30 02/12/19 09:30 82 16 88/47 (61) 100 02/12/19 09:00 83 20 125/98 (107) 99 02/12/19 09:00 20 Mechanical Ventilator 02/12/19 08:30 67 17 93/67 (76) 100 02/12/19 08:00 Mechanical Ventilator 02/12/19 08:00 71 02/12/19 08:00 20 Mechanical Ventilator 100 02/12/19 08:00 30 02/12/19 08:00 98.1 65 17 88/51 (63) 100 02/12/19 07:26 58 16 100 Mechanical Ventilator 30 58 16 30 02/12/19 07:00 74 16 105/50 (68) 100 02/12/19 07:00 18 Mechanical Ventilator 30 02/12/19 06:30 61 16 103/60 (74) 100 02/12/19 06:00 18 Mechanical Ventilator 30 02/12/19 06:00 64 16 89/61 (70) 100 02/12/19 05:30 59 16 115/47 (69) 100 02/12/19 05:09 59 16 30 02/12/19 05:00 64 16 89/61 (70) 100 02/12/19 05:00 16 Mechanical Ventilator 30 02/12/19 04:30 58 16 112/62 (79) 100 02/12/19 04:00 30 02/12/19 04:00 18 Mechanical Ventilator 02/12/19 04:00 97.8 74 16 117/62 (80) 100 02/12/19 04:00 74 02/12/19 04:00 Mechanical Ventilator 02/12/19 03:30 56 16 115/66 (82) 100 02/12/19 03:21 19 30 02/12/19 03:04 54 16 100 Mechanical Ventilator 30 57 16 30 02/12/19 03:00 59 16 92/60 (71) 100 02/12/19 03:00 16 Mechanical Ventilator 30 02/12/19 02:30 53 16 93/48 (63) 100 02/12/19 02:00 59 19 104/63 (77) 94 02/12/19 02:00 18 Mechanical Ventilator 02/12/19 01:30 77 19 97/61 (73) 94 02/12/19 01:09 66 16 30 02/12/19 01:00 18 Mechanical Ventilator 30 02/12/19 01:00 61 16 100/40 (60) 100 02/12/19 00:30 57 16 91/40 (57) 100 02/12/19 00:00 30 02/12/19 00:00 Mechanical Ventilator 02/12/19 00:00 18 Mechanical Ventilator 30 02/12/19 00:00 61 02/12/19 00:00 97.6 61 16 98/40 (59) 100 02/11/19 23:30 62 16 97/40 (59) 100 02/11/19 23:00 72 16 86/47 (60) 100 02/11/19 23:00 18 Mechanical Ventilator 30 02/11/19 22:59 70 16 100 Mechanical Ventilator 30 70 16 30 02/11/19 22:30 72 16 87/63 (71) 100 02/11/19 22:00 17 Mechanical Ventilator 30 02/11/19 22:00 72 18 86/63 (71) 100 02/11/19 21:30 72 18 99/72 (81) 100 02/11/19 21:00 74 17 97/72 (80) 100 02/11/19 21:00 17 Mechanical Ventilator 30 02/11/19 20:43 78 16 30 02/11/19 20:30 77 16 122/78 (93) 100 02/11/19 20:00 98.0 78 17 83/61 (68) 100 02/11/19 20:00 17 Mechanical Ventilator 30 02/11/19 20:00 Mechanical Ventilator 02/11/19 20:00 30 02/11/19 20:00 78 Accucheck: 117 Critical Care - Subjective ROS Limited/Unobtainable: No FI02: 30 Vent Support Breath Rate: 16 Vent Support Mode: AC Vent Tidal Volume: 500 Sputum Amount: Scant PEEP: 5.0 PIP: 27 Tube Feeding Amount: 15 I&O: Intake and Output 02/11/19 02/12/19 19:00 07:00 Intake Total 852.850 ml 1206.573 ml Output Total 1100 ml 740 ml Balance -247.150 ml 466.573 ml Intake Free Water 30 ml IV Total 447.850 ml 951.573 ml Tube Feeding 405 ml 225 ml Output Urine Total 1100 ml 740 ml # Bowel Movements 2 3 ET-Tube: 7.5 ET Position: 24 Johny White MD Feb 12, 2019 19:20
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
--- NOTE | 2019-02-12 19:34 | NUR ---
NURSE NOTES: Pts increasingly agitated- Fentanyl drip resumed at 50mcg/min.
[2019-02-12] MEDS: Dyna-Hex 2% Top Sol 2oz TOPIC SCH (19:56)
--- NOTE | 2019-02-12 20:00 | NUR ---
NURSE NOTES: Pt extremely anxious and agitated. Ativan 0.5mg ivp was given
[2019-02-12] MEDS: Miralax 17gm pkt NG SCH (21:00)
[2019-02-12] MEDS ORDERED: NS 250 ML IVPB ONE (21:15)
--- NOTE | 2019-02-12 22:04 | Cardiology Progress Note ---
Assessment/Plan Assessment/Plan 1. Cardiopulmonary arrest due to anoxia, 2D echo reveals normal LVEF. 2. Non-STEMI, conservative management in face of DNR. 3. Moderate aortic regurgitation. 4. Ventilatory derived respiratory failure, s/p trach placement, POD #1. 5. Hypernatremia, better with hypotonic fluids. 6. Aspiration pneumonia/leukocytosis slightly worsened. Subjective Subjective Sinus rhythm at rate of 86. Attached to the ventilator with FiO2 of 30%. s/p tracheostomy Objective Last 24 Hour Vital Signs Date Time Temp Pulse Resp B/P (MAP) Pulse Ox O2 Delivery O2 Flow Rate FiO2 02/12/19 21:00 86 17 30 02/12/19 19:04 92 16 98 Mechanical Ventilator 30 92 16 30 02/12/19 19:00 101 19 86/54 (65) 98 02/12/19 19:00 100/64 02/12/19 18:00 96 15 75/50 (58) 100 02/12/19 18:00 75/50 02/12/19 17:59 97 16 67/46 (53) 100 02/12/19 17:45 88 14 155/99 (117) 99 02/12/19 17:30 89 17 155/75 (101) 100 02/12/19 17:30 89 17 155/75 (101) 100 02/12/19 17:30 58 16 100 Mechanical Ventilator 30 63 16 30 02/12/19 17:15 68 16 82/59 (67) 100 02/12/19 17:01 89/45 02/12/19 17:00 68 14 92/53 (66) 100 02/12/19 16:01 97.5 02/12/19 16:00 30 02/12/19 16:00 Trach Collar 02/12/19 16:00 70 02/12/19 16:00 16 Mechanical Ventilator 100 02/12/19 16:00 97.6 70 16 89/45 (60) 100 02/12/19 15:30 67 16 87/42 (57) 100 02/12/19 15:11 68 16 100 Mechanical Ventilator 30 63 16 30 02/12/19 15:00 18 Mechanical Ventilator 100 02/12/19 15:00 68 16 98/53 (68) 100 02/12/19 14:00 68 16 88/56 (67) 100 02/12/19 14:00 16 Mechanical Ventilator 100 02/12/19 13:02 71 16 Mechanical Ventilator 30 02/12/19 13:00 73 14 99/59 (72) 100 02/12/19 13:00 18 Mechanical Ventilator 100 02/12/19 12:00 Trach Collar 02/12/19 12:00 30 02/12/19 12:00 78 02/12/19 12:00 18 Mechanical Ventilator 100 02/12/19 12:00 84 16 Mechanical Ventilator 30 02/12/19 12:00 97.5 88 17 111/63 (79) 100 02/12/19 10:30 75 18 92/52 (65) 100 02/12/19 10:00 73 16 85/43 (57) 100 02/12/19 10:00 16 Mechanical Ventilator 100 02/12/19 09:50 59 16 30 02/12/19 09:30 82 16 88/47 (61) 100 02/12/19 09:00 83 20 125/98 (107) 99 02/12/19 09:00 20 Mechanical Ventilator 02/12/19 08:30 67 17 93/67 (76) 100 02/12/19 08:00 Mechanical Ventilator 02/12/19 08:00 71 02/12/19 08:00 20 Mechanical Ventilator 100 02/12/19 08:00 30 02/12/19 08:00 98.1 65 17 88/51 (63) 100 02/12/19 07:26 58 16 100 Mechanical Ventilator 30 58 16 30 02/12/19 07:00 74 16 105/50 (68) 100 02/12/19 07:00 18 Mechanical Ventilator 30 02/12/19 06:30 61 16 103/60 (74) 100 02/12/19 06:00 18 Mechanical Ventilator 30 02/12/19 06:00 64 16 89/61 (70) 100 02/12/19 05:30 59 16 115/47 (69) 100 02/12/19 05:09 59 16 30 02/12/19 05:00 64 16 89/61 (70) 100 02/12/19 05:00 16 Mechanical Ventilator 30 02/12/19 04:30 58 16 112/62 (79) 100 02/12/19 04:00 30 02/12/19 04:00 18 Mechanical Ventilator 02/12/19 04:00 97.8 74 16 117/62 (80) 100 02/12/19 04:00 74 02/12/19 04:00 Mechanical Ventilator 02/12/19 03:30 56 16 115/66 (82) 100 02/12/19 03:21 19 30 02/12/19 03:04 54 16 100 Mechanical Ventilator 30 57 16 30 02/12/19 03:00 59 16 92/60 (71) 100 02/12/19 03:00 16 Mechanical Ventilator 30 02/12/19 02:30 53 16 93/48 (63) 100 02/12/19 02:00 59 19 104/63 (77) 94 02/12/19 02:00 18 Mechanical Ventilator 30 02/12/19 01:30 77 19 97/61 (73) 94 02/12/19 01:09 66 16 30 02/12/19 01:00 18 Mechanical Ventilator 30 02/12/19 01:00 61 16 100/40 (60) 100 02/12/19 00:30 57 16 91/40 (57) 100 02/12/19 00:00 30 02/12/19 00:00 Mechanical Ventilator 02/12/19 00:00 18 Mechanical Ventilator 30 02/12/19 00:00 61 02/12/19 00:00 97.6 61 16 98/40 (59) 100 02/11/19 23:30 62 16 97/40 (59) 100 02/11/19 23:00 72 16 86/47 (60) 100 02/11/19 23:00 18 Mechanical Ventilator 30 02/11/19 22:59 70 16 100 Mechanical Ventilator 30 70 16 30 02/11/19 22:30 72 16 87/63 (71) 100 02/11/19 22:00 17 Mechanical Ventilator 30 02/11/19 22:00 72 18 86/63 (71) 100 Intake and Output 02/11/19 02/12/19 19:00 07:00 Intake Total 852.850 ml 1206.573 ml Output Total 1100 ml 740 ml Balance -247.150 ml 466.573 ml Intake Free Water 30 ml IV Total 447.850 ml 951.573 ml Tube Feeding 405 ml 225 ml Output Urine Total 1100 ml 740 ml # Bowel Movements 2 3 2D Echo: LVEF 55%, moderate AR Laboratory Tests Test 02/12/19 03:10 White Blood Count 15.4 K/UL (4.8-10.8) H Red Blood Count 2.95 M/UL (4.70-6.10) L Hemoglobin 8.9 G/DL (14.2-18.0) L Hematocrit 28.0 % (42.0-52.0) L Mean Corpuscular Volume 95 FL (80-99) Mean Corpuscular Hemoglobin 30.2 PG (27.0-31.0) Mean Corpuscular Hemoglobin Concent 31.8 G/DL (32.0-36.0) L Red Cell Distribution Width 15.1 % (11.6-14.8) H Platelet Count 102 K/UL (150-450) L Mean Platelet Volume 7.1 FL (6.5-10.1) Neutrophils (%) (Auto) % (45.0-75.0) Lymphocytes (%) (Auto) % (20.0-45.0) Monocytes (%) (Auto) % (1.0-10.0) Eosinophils (%) (Auto) % (0.0-3.0) Basophils (%) (Auto) % (0.0-2.0) Differential Total Cells Counted 100 Neutrophils % (Manual) 94 % (45-75) H Lymphocytes % (Manual) 2 % (20-45) L Monocytes % (Manual) 4 % (1-10) Eosinophils % (Manual) 0 % (0-3) Basophils % (Manual) 0 % (0-2) Band Neutrophils 0 % (0-8) Platelet Estimate Decreased L Platelet Morphology Normal Prothrombin Time 11.3 SEC (9.30-11.50) Prothromb Time International Ratio 1.1 (0.9-1.1) Activated Partial Thromboplast Time 28 SEC (23-33) Sodium Level 145 MMOL/L (136-145) Potassium Level 4.4 MMOL/L (3.5-5.1) Chloride Level 105 MMOL/L (98-107) Carbon Dioxide Level 39 MMOL/L (21-32) H Anion Gap 1 mmol/L (5-15) L Blood Urea Nitrogen 18 mg/dL (7-18) Creatinine 0.9 MG/DL (0.55-1.30) Estimat Glomerular Filtration Rate mL/min (>60) Glucose Level 144 MG/DL (74-106) H Calcium Level 8.3 MG/DL (8.5-10.1) L Phosphorus Level 3.0 MG/DL (2.5-4.9) Magnesium Level 1.8 MG/DL (1.8-2.4) Total Bilirubin 0.6 MG/DL (0.2-1.0) Aspartate Amino Transf (AST/SGOT) 23 U/L (15-37) Alanine Aminotransferase (ALT/SGPT) 41 U/L (12-78) Alkaline Phosphatase 62 U/L (46-116) Total Protein 4.6 G/DL (6.4-8.2) L Albumin 2.0 G/DL (3.4-5.0) L Globulin 2.6 g/dL Albumin/Globulin Ratio 0.8 (1.0-2.7) L Objective HEENT: Atraumatic, arousable, orally intubated, conjunctival pallor. NECK: Cannot assess JVD, no carotid bruit. Trach tube in place. LUNGS: Bilateral breath sounds. Few rhonchi. No wheezing. CARDIAC: Regular rhythm and rate. Normal S1 and S2. No murmurs, gallops or rubs. ABDOMEN: Soft, non-distended, + BS. EXTREMITIES: No edema, clubbing or cyanosis. Lv Zuniga MD Feb 12, 2019 22:04
--- NOTE | 2019-02-12 23:45 | NUR ---
NURSE NOTES: Son at bedside, explained and updated with pts condition- also new POLST was signed.
[2019-02-13] VITALS (49 sets, daily range): BP systolic 73–169; BP diastolic 28–99
[2019-02-13] MEDS: D5W IVPB PRN (00:05)
[2019-02-13] MEDS: HALOPERIDOL LACTATE IVPB PRN (00:05)
--- NOTE | 2019-02-13 00:05 | NUR ---
NURSE NOTES: Haldol 0.5mg ivp was given due to pts agitation.
[2019-02-13] MEDS: Hydromorphone 0.5mg/0.5ml inj IVP PRN (02:03)
--- NOTE | 2019-02-13 02:03 | NUR ---
NURSE NOTES: Dilauded 0.5mg ivp given due to pain FLACC 9
--- NOTE | 2019-02-13 02:30 | NUR ---
NURSE NOTES: Pt still restyless due to pain. Now FLACC4
[2019-02-13] MEDS: LORazepam Inj 2mg/ml 1ml IV PRN ×3 (02:35→20:55)
--- NOTE | 2019-02-13 02:35 | NUR ---
NURSE NOTES: AQtivan 0.5mg ivp given due to anxiety and restlessness.
[2019-02-13] MEDS: Albuterol/Ipratropium 3ml neb HHN SCH ×6 (03:08→22:54)
[2019-02-13] MEDS: DOPamine 400mg/250ml 250 ML IV SCH (03:36)
[2019-02-13] MEDS: Vancomycin 750mg/NS 275ml IVPB SCH ×6 (03:38→20:03)
--- NOTE | 2019-02-13 04:00 | NUR ---
NURSE NOTES:Inserted G 20 angio to pts RT hand with good blood return.
--- NOTE | 2019-02-13 05:30 | NUR ---
NURSE NOTES:Pt pulled out IV heplock, cleaned up pts blood on pts bed.
[2019-02-13 05:33] LABS: HEMATOCRIT 28.4 % (42.0-52.0); HEMOGLOBIN 8.7 G/DL (14.2-18.0); MEAN CORPUSCULAR VOLUME 97 FL (80-99); PLATELET COUNT 96 K/UL (150-450); RED BLOOD COUNT 2.92 M/UL (4.70-6.10); RED CELL DISTRIBUTION WIDTH 15.1 % (11.6-14.8); WHITE BLOOD COUNT 14.7 K/UL (4.8-10.8)
[2019-02-13] MEDS: Meropenem 2 GM in NS 110 ML IVPB SCH ×3 (05:38→21:56)
[2019-02-13] MEDS: NovoLOG Insulin Flexpen SUBQ SCH ×5 (06:00→23:33)
--- NOTE | 2019-02-13 06:00 | NUR ---
NURSE NOTES:Complete bath with bed changed done.
--- NOTE | 2019-02-13 07:17 | NUR ---
RESPIRATORY NOTE: Received pt on AC 16, 500VT, 30%, PEEP +5. Pt is newly trach with a cuffed, Shiley 8 tube, secured by trach tie. Pt currently sedated. Stoma still bleeding and reddened noted around the trach, trach care done. B/S bogdan. diminished, sxn small amounts of thick/thin, bloody brown with small clots secretions without incidents. Pt is sedated but restless, agitated when touch. Alarms are set and audible, vent plugged into red outlet, ambu bag at bedside. Pt in no apparent distress at this time. Will continue to monitor pt.
--- NOTE | 2019-02-13 07:20 | 48 Hour Post Anesthesia Eval ---
Post Anesthesia Evaluation Procedure: Tracheostomy Date of Evaluation: Feb 13, 2019 Airway: other - trach in place, on mechanical ventilation Nausea: No Vomiting: No Pain Intensity: 0 Hydration Status: adequate Cardiopulmonary Status: at baseline Mental Status/LOC: patient returned to baseline Post-Anesthesia Complications: 0 Follow-up care needed: N/A - further care as per primary team Marisol Allison MD Feb 13, 2019 07:20
--- NOTE | 2019-02-13 07:35 | NUR ---
HAND-OFF: Report given to TOMASA ROYAL.
--- NOTE | 2019-02-13 08:30 | NUR ---
NURSE NOTES: y Dr. Morel updated on patient hgb of 8.7 and platelet of 96, no verbal orders given at this time,
[2019-02-13] MEDS: Solu-MEDROL 40mg Inj IVP SCH (08:55)
[2019-02-13] MEDS: Pantoprazole Inj IVP SCH ×2 (08:55→20:52)
[2019-02-13] MEDS: Docusate 100mg tablet NG SCH ×2 (08:55→17:44)
[2019-02-13] MEDS: Eliquis 5mg tablet NGT SCH (08:55)
--- NOTE | 2019-02-13 09:04 | NUR ---
RADIOLOGY DEPT., CHEST X-RAY DONE.-P.DYE
--- NOTE | 2019-02-13 09:15 | NUR ---
NURSE NOTES: NG-tube inserted on first attempts on the left nare at 62-63cm on the opening of the nare, secured in place and inserted air, a gurgling sound was heard over the left upper quadrant, patient tolerated procedure well with no distress noted, remains on restrains for attempting for pull on trach and picc line,
--- NOTE | 2019-02-13 09:35 | NUR ---
X-RAY OF THE ABDOMEN COMPLETED AT 0933 HRS BY Sofia GARCIA.
--- NOTE | 2019-02-13 10:51 | NUR ---
RESPIRATORY NOTE: Trach care done with chlorhexidine, trach dressing changed due to bleeding. Pt is still active bleeding from the stoma. Large blood clots formed around the open of the stoma, pt is very agitated when cleaning the trach areas. GENNY Mathew made aware. Will continue to monitor pt closely.
--- NOTE | 2019-02-13 11:15 | NUR ---
NURSE NOTES: Patient repositioned in bed and remains restraints for reaching and attempting to pull on tracheostomy and picc line, he remains edematous and weeping form upper arms, patient remains tolerating mechanical ventilator with no distress saturating at 99-100% through pulse oximeter, patient has a scant amount of blood over the tracheostomy bernal which was cleared, a new drain sponge was placed.
--- NOTE | 2019-02-13 12:14 | Diagnostic Imaging Report ---
Indication: NG tube placement Comparison: None Single view of the abdomen obtained Findings: NG tube is high and should be advanced further. The proximal port is at the EG junction. The tip is within the stomach. IMPRESSION: NG tube should be advanced by at least 5 cm.
--- NOTE | 2019-02-13 12:59 | Diagnostic Imaging Report ---
Indication: Line placement Comparison: 02/11/2019 A single view chest radiograph was obtained. Findings: There is a left PICC line demonstrated. The tip projects over the left shoulder within what is likely the subclavian vein. Tracheostomy is new. There is no pneumothorax identified. Emphysematous changes noted within the lungs. There is no change otherwise. IMPRESSION: PICC line tip over the left subclavian/axillary region. Tracheostomy in good position
--- NOTE | 2019-02-13 13:28 | Nephrology Progress Note ---
Assessment/Plan Problem List: (1) Cardiac arrest (2) Prerenal azotemia (3) Hypernatremia (4) Hypoalbuminemia (5) HTN (hypertension) Assessment Pre renal Azotemia due to - Dehydration- - High Protein catabolic state as result of Doxy and steroids HyperNatremia due to free water deficit HypoAlbuminemia Plan Sugg: Tracheostomy 02/12 keep bp in check stop D5W IV fluid Avoid Nephrotoxics Monitor lytes per consultants Subjective ROS Limited/Unobtainable: Yes Objective Objective Last 24 Hour Vital Signs Date Time Temp Pulse Resp B/P (MAP) Pulse Ox O2 Delivery O2 Flow Rate FiO2 02/13/19 13:00 79 16 120/50 (73) 100 02/13/19 13:00 120/51 02/13/19 12:54 92 17 30 02/13/19 12:30 92 22 127/76 (93) 100 02/13/19 12:24 111/89 02/13/19 12:00 99.0 89 18 111/89 (96) 100 02/13/19 12:00 111/89 02/13/19 12:00 30 02/13/19 12:00 90 02/13/19 12:00 Mechanical Ventilator 02/13/19 11:30 90 18 126/71 (89) 100 02/13/19 11:00 88 16 100 Mechanical Ventilator 30 97 16 30 02/13/19 11:00 91 16 98/81 (87) 100 02/13/19 11:00 113/74 02/13/19 10:30 88 18 109/68 (82) 100 02/13/19 10:00 87 17 111/99 (103) 100 02/13/19 10:00 111/99 02/13/19 09:30 85 17 116/78 (91) 100 02/13/19 09:00 93 18 99/75 (83) 100 02/13/19 09:00 99/74 02/13/19 08:45 81 17 30 02/13/19 08:30 88 19 94/61 (72) 100 02/13/19 08:01 30 02/13/19 08:00 88 02/13/19 08:00 98.8 96 16 145/64 (91) 100 02/13/19 08:00 Mechanical Ventilator 02/13/19 08:00 94/78 02/13/19 07:30 96 18 73/47 (56) 100 02/13/19 07:17 92 16 100 Mechanical Ventilator 30 107 16 30 02/13/19 07:00 58/30 02/13/19 07:00 70 18 115/61 (79) 100 02/13/19 06:30 72 18 110/60 (77) 100 02/13/19 06:00 71 18 148/61 (90) 100 02/13/19 06:00 144/60 02/13/19 05:30 67 18 144/60 (88) 100 02/13/19 05:00 92 18 99/38 (58) 100 02/13/19 05:00 99/36 02/13/19 04:55 85 16 30 02/13/19 04:30 82 18 139/60 (86) 99 02/13/19 04:00 30 02/13/19 04:00 98.0 82 18 139/60 (86) 99 02/13/19 04:00 80 02/13/19 04:00 151/62 02/13/19 04:00 Mechanical Ventilator 02/13/19 03:36 90/60 02/13/19 03:30 85 18 151/62 (91) 99 02/13/19 03:08 58 16 100 Mechanical Ventilator 30 58 16 30 02/13/19 03:00 88 18 161/81 (107) 99 02/13/19 03:00 171/91 02/13/19 02:30 74 18 155/77 (103) 99 02/13/19 02:00 88 18 110/86 (94) 99 02/13/19 02:00 Mechanical Ventilator 02/13/19 02:00 110/76 02/13/19 01:30 81 16 150/64 (92) 99 02/13/19 01:04 65 16 30 02/13/19 01:00 16 Mechanical Ventilator 30 02/13/19 01:00 156/64 02/13/19 01:00 66 16 156/64 (94) 99 02/13/19 00:45 30 02/13/19 00:30 64 18 169/78 (108) 99 02/13/19 00:00 98.8 75 18 100/73 (82) 99 02/13/19 00:00 Mechanical Ventilator 02/13/19 00:00 18 Mechanical Ventilator 30 02/13/19 00:00 111/76 02/13/19 00:00 72 02/12/19 23:30 74 18 101/73 (82) 99 02/12/19 23:01 97 16 100 Mechanical Ventilator 30 97 16 30 02/12/19 23:00 74 18 124/77 (93) 100 02/12/19 23:00 20 Mechanical Ventilator 30 02/12/19 23:00 124/79 02/12/19 22:30 79 17 81/53 (62) 100 02/12/19 22:00 18 Mechanical Ventilator 30 02/12/19 22:00 81/53 02/12/19 22:00 80 17 99/69 (79) 99 02/12/19 21:30 77 17 91/76 (81) 99 02/12/19 21:00 77 17 88/71 (77) 99 02/12/19 21:00 86 17 30 02/12/19 21:00 16 Mechanical Ventilator 30 02/12/19 21:00 91/76 02/12/19 20:30 82 17 90/70 (77) 98 02/12/19 20:00 98.0 82 19 86/54 (65) 98 02/12/19 20:00 110 02/12/19 20:00 18 Mechanical Ventilator 30 02/12/19 20:00 88/71 02/12/19 20:00 Mechanical Ventilator 02/12/19 20:00 30 02/12/19 20:00 98.2 82 17 115/94 (101) 97 02/12/19 19:04 92 16 98 Mechanical Ventilator 30 92 16 30 02/12/19 19:00 101 19 86/54 (65) 98 02/12/19 19:00 100/64 02/12/19 18:00 96 15 75/50 (58) 100 02/12/19 18:00 75/50 02/12/19 17:59 97 16 67/46 (53) 100 02/12/19 17:45 88 14 155/99 (117) 99 02/12/19 17:30 89 17 155/75 (101) 100 02/12/19 17:30 89 17 155/75 (101) 100 02/12/19 17:30 58 16 Mechanical Ventilator 30 30 02/12/19 17:15 68 16 82/59 (67) 100 02/12/19 17:01 89/45 02/12/19 17:00 68 14 92/53 (66) 100 02/12/19 16:01 97.5 02/12/19 16:00 30 02/12/19 16:00 Trach Collar 02/12/19 16:00 70 02/12/19 16:00 16 Mechanical Ventilator 100 02/12/19 16:00 97.6 70 16 89/45 (60) 100 02/12/19 15:30 67 16 87/42 (57) 100 02/12/19 15:11 68 16 100 Mechanical Ventilator 30 63 16 30 02/12/19 15:00 18 Mechanical Ventilator 100 02/12/19 15:00 68 16 98/53 (68) 100 02/12/19 14:00 68 16 88/56 (67) 100 02/12/19 14:00 16 Mechanical Ventilator 100 Intake and Output 02/12/19 02/13/19 19:00 07:00 Intake Total 705.816 ml 845.844 ml Output Total 325 ml 635 ml Balance 380.816 ml 210.844 ml Intake Free Water 30 ml IV Total 660.816 ml 695.844 ml Tube Feeding 15 ml 150 ml Output Urine Total 325 ml 635 ml # Bowel Movements 3 Laboratory Tests 02/13/19 04:20: White Blood Count 14.7H, Red Blood Count 2.92L, Hemoglobin 8.7L, Hematocrit 28.4L, Mean Corpuscular Volume 97, Mean Corpuscular Hemoglobin 29.9, Mean Corpuscular Hemoglobin Concent 30.8L, Red Cell Distribution Width 15.1H, Platelet Count 96L, Mean Platelet Volume 6.5, Neutrophils (%) (Auto) , Lymphocytes (%) (Auto) , Monocytes (%) (Auto) , Eosinophils (%) (Auto) , Basophils (%) (Auto) , Differential Total Cells Counted 100, Neutrophils % ( Manual) 89H, Lymphocytes % (Manual) 5L, Monocytes % (Manual) 6, Eosinophils % ( Manual) 0, Basophils % (Manual) 0, Band Neutrophils 0, Platelet Estimate DecreasedL, Platelet Morphology Normal Height (Feet): 5 Height (Inches): 10.00 Weight (Pounds): 163 General Appearance: no apparent distress EENT: other - trach- vent Cardiovascular: normal rate Respiratory/Chest: decreased breath sounds Abdomen: distended Objective no change Felipe Salmon MD Feb 13, 2019 13:28
--- NOTE | 2019-02-13 13:54 | NUR ---
CASE MANAGEMENT: REVIEW 02/13/2019 SI:COPD EXACERBATION. ASPIRATION PNA. T 99 HR 89 RR 18 B/P 120/50 SATS 100% ON MECH VENT FIO2 30 WBC 14.7 IS:SOLU MEDROL IV Q12H LOVENOX SUBQ QD K PHOS IV X1 PROTONIX IV Q12H MAG SULFATE IV X1 FENTANYL PER PARAMETERS DOPAMINE PER PARAMETERS KCL IV VANCO IV Q8H MEROPENEM IV Q8H ICU
[2019-02-13] MEDS ORDERED: Tubing IV Secondary IV ONE (14:29)
[2019-02-13] MEDS ORDERED: NS 275ml ONE (14:29)
--- NOTE | 2019-02-13 15:55 | Surgery Progress Note ---
Surgery Progress Note Subjective Procedure Performed tracheostomy bronchoscopy Additional Comments leukocytosis improving trach with mild oozing dressings changed more responsive Objective Last 24 Hour Vital Signs Date Time Temp Pulse Resp B/P (MAP) Pulse Ox O2 Delivery O2 Flow Rate FiO2 02/13/19 15:28 90 16 100 Mechanical Ventilator 30 91 16 30 02/13/19 15:00 90 16 116/93 (101) 100 02/13/19 14:30 86 16 109/92 (98) 100 02/13/19 14:00 84 15 109/92 (98) 100 02/13/19 14:00 109/92 02/13/19 13:30 91 17 101/79 (86) 100 02/13/19 13:00 79 16 120/50 (73) 100 02/13/19 13:00 120/51 02/13/19 12:54 92 17 30 02/13/19 12:30 92 22 127/76 (93) 100 02/13/19 12:24 111/89 02/13/19 12:00 99.0 89 18 111/89 (96) 100 02/13/19 12:00 111/89 02/13/19 12:00 30 02/13/19 12:00 90 02/13/19 12:00 Mechanical Ventilator 02/13/19 11:30 90 18 126/71 (89) 100 02/13/19 11:00 88 16 100 Mechanical Ventilator 30 97 16 30 02/13/19 11:00 91 16 98/81 (87) 100 02/13/19 11:00 113/74 02/13/19 10:30 88 18 109/68 (82) 100 02/13/19 10:00 87 17 111/99 (103) 100 02/13/19 10:00 111/99 02/13/19 09:30 85 17 116/78 (91) 100 02/13/19 09:00 93 18 99/75 (83) 100 02/13/19 09:00 99/74 02/13/19 08:45 81 17 30 02/13/19 08:30 88 19 94/61 (72) 100 02/13/19 08:01 30 02/13/19 08:00 88 02/13/19 08:00 98.8 96 16 145/64 (91) 100 02/13/19 08:00 Mechanical Ventilator 02/13/19 08:00 94/78 02/13/19 07:30 96 18 73/47 (56) 100 02/13/19 07:17 92 16 100 Mechanical Ventilator 30 107 16 30 02/13/19 07:00 58/30 02/13/19 07:00 70 18 115/61 (79) 100 02/13/19 06:30 72 18 110/60 (77) 100 02/13/19 06:00 71 18 148/61 (90) 100 02/13/19 06:00 144/60 02/13/19 05:30 67 18 144/60 (88) 100 02/13/19 05:00 92 18 99/38 (58) 100 02/13/19 05:00 99/36 02/13/19 04:55 85 16 30 02/13/19 04:30 82 18 139/60 (86) 99 02/13/19 04:00 30 02/13/19 04:00 98.0 82 18 139/60 (86) 99 02/13/19 04:00 80 02/13/19 04:00 151/62 02/13/19 04:00 Mechanical Ventilator 02/13/19 03:36 90/60 02/13/19 03:30 85 18 151/62 (91) 99 02/13/19 03:08 58 16 100 Mechanical Ventilator 30 58 16 30 02/13/19 03:00 88 18 161/81 (107) 99 02/13/19 03:00 171/91 02/13/19 02:30 74 18 155/77 (103) 99 02/13/19 02:00 88 18 110/86 (94) 99 02/13/19 02:00 Mechanical Ventilator 02/13/19 02:00 110/76 02/13/19 01:30 81 16 150/64 (92) 99 02/13/19 01:04 65 16 30 02/13/19 01:00 16 Mechanical Ventilator 30 02/13/19 01:00 156/64 02/13/19 01:00 66 16 156/64 (94) 99 02/13/19 00:45 30 02/13/19 00:30 64 18 169/78 (108) 99 02/13/19 00:00 98.8 75 18 100/73 (82) 99 02/13/19 00:00 Mechanical Ventilator 02/13/19 00:00 18 Mechanical Ventilator 30 02/13/19 00:00 111/76 02/13/19 00:00 72 02/12/19 23:30 74 18 101/73 (82) 99 02/12/19 23:01 97 16 100 Mechanical Ventilator 30 97 16 30 02/12/19 23:00 74 18 124/77 (93) 100 02/12/19 23:00 20 Mechanical Ventilator 30 02/12/19 23:00 124/79 02/12/19 22:30 79 17 81/53 (62) 100 02/12/19 22:00 18 Mechanical Ventilator 30 02/12/19 22:00 81/53 02/12/19 22:00 80 17 99/69 (79) 99 02/12/19 21:30 77 17 91/76 (81) 99 02/12/19 21:00 77 17 88/71 (77) 99 02/12/19 21:00 86 17 30 02/12/19 21:00 16 Mechanical Ventilator 30 02/12/19 21:00 91/76 02/12/19 20:30 82 17 90/70 (77) 98 02/12/19 20:00 98.0 82 19 86/54 (65) 98 02/12/19 20:00 110 02/12/19 20:00 18 Mechanical Ventilator 30 02/12/19 20:00 88/71 02/12/19 20:00 Mechanical Ventilator 02/12/19 20:00 30 02/12/19 20:00 98.2 82 17 115/94 (101) 97 02/12/19 19:04 92 16 98 Mechanical Ventilator 30 92 16 30 02/12/19 19:00 101 19 86/54 (65) 98 02/12/19 19:00 100/64 02/12/19 18:00 96 15 75/50 (58) 100 02/12/19 18:00 75/50 02/12/19 17:59 97 16 67/46 (53) 100 02/12/19 17:45 88 14 155/99 (117) 99 02/12/19 17:30 89 17 155/75 (101) 100 02/12/19 17:30 89 17 155/75 (101) 100 02/12/19 17:30 58 16 Mechanical Ventilator 30 30 02/12/19 17:15 68 16 82/59 (67) 100 02/12/19 17:01 89/45 02/12/19 17:00 68 14 92/53 (66) 100 02/12/19 16:01 97.5 02/12/19 16:00 30 02/12/19 16:00 Trach Collar 02/12/19 16:00 70 02/12/19 16:00 16 Mechanical Ventilator 100 02/12/19 16:00 97.6 70 16 89/45 (60) 100 I&O Intake and Output 02/12/19 02/13/19 19:00 07:00 Intake Total 705.816 ml 845.844 ml Output Total 325 ml 635 ml Balance 380.816 ml 210.844 ml Intake Free Water 30 ml IV Total 660.816 ml 695.844 ml Tube Feeding 15 ml 150 ml Output Urine Total 325 ml 635 ml # Bowel Movements 3 Dressing: saturated Wound: clean Cardiovascular: RSR Respiratory: clear, decreased breath sounds Abdomen: soft, flat Extremities: no edema, no tenderness, no cyanosis Laboratory Tests Test 02/13/19 04:20 White Blood Count 14.7 K/UL (4.8-10.8) H Red Blood Count 2.92 M/UL (4.70-6.10) L Hemoglobin 8.7 G/DL (14.2-18.0) L Hematocrit 28.4 % (42.0-52.0) L Mean Corpuscular Volume 97 FL (80-99) Mean Corpuscular Hemoglobin 29.9 PG (27.0-31.0) Mean Corpuscular Hemoglobin Concent 30.8 G/DL (32.0-36.0) L Red Cell Distribution Width 15.1 % (11.6-14.8) H Platelet Count 96 K/UL (150-450) L Mean Platelet Volume 6.5 FL (6.5-10.1) Neutrophils (%) (Auto) % (45.0-75.0) Lymphocytes (%) (Auto) % (20.0-45.0) Monocytes (%) (Auto) % (1.0-10.0) Eosinophils (%) (Auto) % (0.0-3.0) Basophils (%) (Auto) % (0.0-2.0) Differential Total Cells Counted 100 Neutrophils % (Manual) 89 % (45-75) H Lymphocytes % (Manual) 5 % (20-45) L Monocytes % (Manual) 6 % (1-10) Eosinophils % (Manual) 0 % (0-3) Basophils % (Manual) 0 % (0-2) Band Neutrophils 0 % (0-8) Platelet Estimate Decreased L Platelet Morphology Normal Plan Problems: (1) Respiratory distress Assessment & Plan: 73-year-old male with acute respiratory decompensation requiring intubation and intensive care unit evaluation was on vent support. Patient was recently extubated but unfortunately is not tolerating expiration very well as he requires BiPAP persistently and if taken off desaturates. Given these findings tracheostomy is potentially indicated and agree with pulmonology team and medical team that patient may benefit from tracheostomy to allow for recovery. Will obtain consent from the patient's family and patient for tracheostomy placement in hopes to have patient able to be weaned rather than reintubated. Thank you for allowing me to participate patient's care will continue with recommendations s/p trach recovering wean vent as tolerated dressings prn saturation will follow thank you Kris Blake Feb 13, 2019 15:55
--- NOTE | 2019-02-13 15:59 | NUR ---
NURSE NOTES: Dr. White ordered to have patient weaned on cpap with ps of 8, have NIF and RSBI hold eliquis and change Solumol to 30mg daily ivp, not further orders given at this time.
--- NOTE | 2019-02-13 16:58 | Diagnostic Imaging Report ---
Indication: NG tube placement Comparison: Earlier same day Single view of the abdomen obtained Findings: NG tube was advanced and is now satisfactory in position. The tip and proximal port are well within the stomach lumen several centimeters below the EG junction. IMPRESSION: NG tube satisfactory in position
--- NOTE | 2019-02-13 17:05 | NUR ---
NURSE NOTES: Received the patient from GENNY Mcclain. Patient resting in bed with eyes closed, able to move all extremities. No acute distress noted. s/p trach yesterday. Trach to vent, Shiley 8.0, AC 16, TV500, FIO2 30%, PEEP 5. trach dressing intact, small blood noted. SR noted on the lockstitch cup setter. Left upper midline intact, running Dopamine drip at 2mcg/kg/min. Saenz cath intact, draining yellow urine by gravity. KUB confirmed NGT placement, will resume tube feeding. patient noted with 3+ edema on all extremities and scrotum, upper extremities weeping with fluid noted. dressings to bilateral shins noted. Patient on soft wrist restraints. No skin breakdown noted. pulses present. Bed in lowest position, locked, side rails upx3. Bed alarm on. Will continue to monitor.
--- NOTE | 2019-02-13 17:08 | NUR ---
HAND-OFF: Report given to Anjana Guerrero RN. patient is currently on dopamine at 2mcg/kg/min, NG-tube is in stomach with satisfactory placement, 70cm at the left nare. .
--- NOTE | 2019-02-13 17:50 | NUR ---
NURSE NOTES: Glucerna 1.5 running at 30ml/hr via NGT. HOB kept elevated. Patient was turned and repositioned. Patient kept clean and dry.
--- NOTE | 2019-02-13 18:58 | Hematology/Onc Progress Note ---
Assessment/Plan Assessment/Plan # Thrombocytopenia is likely due to underlying infection/sepsis v dic, reactive process --> hiv is neg, hepatitis is neg as well --> us of the abd from prior 2018 --> plt rend 140-->115-->105-->133-->110k--> 118k-->100k-->95k-->109k-->96k --> okay for ppx as long as above 75k --> meds have been reviewed # Anemia of chronic disease, due to multifactorial causes --> anemia panel reviewed from earlier in admission and c/w acd --> hgb goal is >7 --> no hemolysis is seen --> smear has been reviewed --> hgb trend 9.3-->11.1-->9.6--->9.9-->8.6 # Leukocytosis/elevated white blood cell count, unspecified likely related to steroid meds --> have reviewed peripheral smear and bandemia/neutrophilia noted --> continue antibiotics if they have been started by ID team, zosyn --> monitor for resolution --> wbc trend 14-->18-->24.3-->17.3-->17 # COPD exacerbation with asp pna --> has been given steriods --> per id for aspiration prec on zosyn --> rochelle/vanc # Hypercapneic respiratory failure -->s/p trach/vent # S/p cardiac arrest in the ED # CHF # HTN # Diabetes # DNR status # Dysphagia with NG++ Time of note does not correspond to when patient was seen. Greatly appreciate consultation. Subjective Constitutional: Denies: no symptoms, chills, fever, malaise, weakness, other HEENT: Denies: no symptoms, eye pain, blurred vision, tearing, double vision, ear pain, ear discharge, nose pain, nose congestion, throat pain, throat swelling, mouth pain, mouth swelling, other Cardiovascular: Denies: no symptoms, chest pain, edema, irregular heart rate, lightheadedness, palpitations, syncope, other Respiratory: Denies: no symptoms, cough, shortness of breath, SOB with excertion, SOB at rest, sputum, wheezing, other Gastrointestinal/Abdominal: Denies: no symptoms, abdomen distended, abdominal pain, black stools, tarry stools, blood in stool, constipated, diarrhea, difficulty swallowing, nausea, poor appetite, poor fluid intake, rectal bleeding , vomiting, other Genitourinary: Denies: no symptoms, burning, discharge, frequency, flank pain, hematuria, incontinence, pain, urgency, other Neurologic/Psychiatric: Denies: no symptoms, anxiety, depressed, emotional problems, headache, numbness, paresthesia, pre-existing deficit, seizure, tingling, tremors, weakness, other Allergies: Coded Allergies: No Known Allergies (Unverified , 06/05/18) Subjective 02/01: no events to report, plt is lower, weaning trial initiated with siaac, mack rn, hiv neg 02/04: icu, wbc elevated, on abx 02/05: remains on vent, fighting vent, on abx remains on lovenox, on steriods 02/06: icu, on vent, vs stable, no sob or respiratory distress 02/07: remains in the icu, intubated, ng tube, weaning trial today 02/08: icu, restless and agitated, extubation pending, wbc improved 02/10: no vent, remains in icu, seen by isaac, extubated today, on bipap 02/11: extubated, on rochelle/vanc, labs have been reviewed 02/13: on glucerna, ngt, dopamine gtt Objective Objective Current Medications Medications (Trade) Dose Ordered Sig/Brittani Route PRN Reason Start Time Stop Time Status Last Admin Dose Admin Acetaminophen (Tylenol) 650 mg Q4H PRN NG FOR MILD PAIN 01/26/19 10:15 02/25/19 10:14 02/12/19 15:31 Acetylcysteine (Mucomyst) 100 mg Q4HRT [facility] 02/12/19 15:00 03/14/19 14:59 02/13/19 18:51 Albuterol/ Ipratropium (Albuterol/ Ipratropium) 3 ml Q4HRT [facility] 02/13/19 15:00 02/18/19 14:59 02/13/19 18:51 Chlorhexidine Gluconate (Renetta-Hex 2%) 1 applic DAILY@1999 TOPIC 02/07/19 20:00 03/09/19 19:59 02/12/19 19:56 Dextrose (Dextrose 50%) 25 ml Q30M PRN IV Hypoglycemia 01/26/19 10:30 02/25/19 10:29 Dextrose (Dextrose 50%) 50 ml Q30M PRN IV Hypoglycemia 01/26/19 10:30 02/25/19 10:29 02/10/19 23:34 Docusate Sodium (Colace) 100 mg BID NG 02/02/19 18:00 03/04/19 17:59 02/13/19 17:44 Dopamine HCl/ Dextrose 250 ml @ 0 mls/hr Q24H IV 02/06/19 09:15 03/08/19 09:14 02/13/19 03:36 Fentanyl Citrate 1000 mcg/Sodium Chloride 100 ml @ 0 mls/hr Q24H IV 02/10/19 20:30 02/17/19 20:29 02/12/19 03:21 Haloperidol Lactate 0.5 mg/ Dextrose 55.1 ml @ 220.4 mls/ hr Q8H PRN IVPB Agitation 02/10/19 14:15 03/12/19 14:14 02/13/19 00:05 Hydralazine HCl (Apresoline) 25 mg Q6H PRN NG For High Blood Pressure 02/07/19 17:15 03/06/19 16:59 Hydromorphone HCl (Dilaudid) 0.5 mg Q4H PRN IVP For Pain 02/10/19 14:15 02/17/19 14:14 02/13/19 02:03 Insulin Aspart (NovoLOG) Q6HR SUBQ 02/11/19 13:00 03/13/19 12:59 02/11/19 13:02 Lorazepam (Ativan 2mg/ml 1ml) 0.5 mg Q2H PRN IV ANXIETY 02/11/19 16:30 02/18/19 16:29 02/13/19 09:10 Meropenem 2 gm/ Sodium Chloride 110 ml @ 220 mls/hr Q8HR IVPB 02/10/19 22:00 02/21/19 23:59 02/13/19 14:18 Methylprednisolone Sodium Succinate (Solu-MEDROL) 30 mg DAILY IVP 02/14/19 09:00 03/12/19 20:59 Pantoprazole (Protonix) 40 mg Q12HR IVP 02/03/19 21:00 02/25/19 10:59 02/13/19 08:55 Polyethylene Glycol (Miralax) 17 gm BEDTIME NG 02/07/19 21:00 03/03/19 20:59 02/09/19 20:26 Vancomycin HCl (Vanco rx to dose) 1 ea DAILY PRN MISC Per rx protocol 02/06/19 20:00 03/08/19 19:59 Vancomycin HCl 750 mg/Sodium Chloride 275 ml @ 183.333 mls/hr Q8HR@0400,1200,2000 IVPB 02/08/19 20:00 02/17/19 23:59 02/13/19 12:24 Last 24 Hour Vital Signs Date Time Temp Pulse Resp B/P (MAP) Pulse Ox O2 Delivery O2 Flow Rate FiO2 02/13/19 18:30 83 18 119/28 (58) 100 02/13/19 18:00 122/96 02/13/19 18:00 88 16 122/96 (105) 100 02/13/19 17:30 94 16 130/71 (90) 100 02/13/19 17:00 98 16 125/77 (93) 100 02/13/19 17:00 125/77 02/13/19 16:31 92 17 30 02/13/19 16:30 96 16 109/93 (98) 100 02/13/19 16:00 30 02/13/19 16:00 98.9 93 16 94/61 (72) 100 02/13/19 16:00 Mechanical Ventilator 02/13/19 16:00 94/61 02/13/19 16:00 93 02/13/19 15:30 92 16 120/87 (98) 100 02/13/19 15:28 90 16 100 Mechanical Ventilator 30 91 16 30 02/13/19 15:00 90 16 116/93 (101) 100 02/13/19 15:00 116/93 02/13/19 14:30 86 16 109/92 (98) 100 02/13/19 14:00 84 15 109/92 (98) 100 02/13/19 14:00 109/92 02/13/19 13:30 91 17 101/79 (86) 100 02/13/19 13:00 79 16 120/50 (73) 100 02/13/19 13:00 120/51 02/13/19 12:54 92 17 30 02/13/19 12:30 92 22 127/76 (93) 100 02/13/19 12:24 111/89 02/13/19 12:00 99.0 89 18 111/89 (96) 100 02/13/19 12:00 111/89 02/13/19 12:00 30 02/13/19 12:00 90 02/13/19 12:00 Mechanical Ventilator 02/13/19 11:30 90 18 126/71 (89) 100 02/13/19 11:00 88 16 100 Mechanical Ventilator 30 97 16 30 02/13/19 11:00 91 16 98/81 (87) 100 02/13/19 11:00 113/74 02/13/19 10:30 88 18 109/68 (82) 100 02/13/19 10:00 87 17 111/99 (103) 100 02/13/19 10:00 111/99 02/13/19 09:30 85 17 116/78 (91) 100 02/13/19 09:00 93 18 99/75 (83) 100 02/13/19 09:00 99/74 02/13/19 08:45 81 17 30 02/13/19 08:30 88 19 94/61 (72) 100 02/13/19 08:01 30 02/13/19 08:00 88 02/13/19 08:00 98.8 96 16 145/64 (91) 100 02/13/19 08:00 Mechanical Ventilator 02/13/19 08:00 94/78 02/13/19 07:30 96 18 73/47 (56) 100 02/13/19 07:17 92 16 100 Mechanical Ventilator 30 107 16 30 02/13/19 07:00 58/30 02/13/19 07:00 70 18 115/61 (79) 100 02/13/19 06:30 72 18 110/60 (77) 100 02/13/19 06:00 71 18 148/61 (90) 100 02/13/19 06:00 144/60 02/13/19 05:30 67 18 144/60 (88) 100 02/13/19 05:00 92 18 99/38 (58) 100 02/13/19 05:00 99/36 02/13/19 04:55 85 16 30 02/13/19 04:30 82 18 139/60 (86) 99 02/13/19 04:00 30 02/13/19 04:00 98.0 82 18 139/60 (86) 99 02/13/19 04:00 80 02/13/19 04:00 151/62 02/13/19 04:00 Mechanical Ventilator 02/13/19 03:36 90/60 02/13/19 03:30 85 18 151/62 (91) 99 02/13/19 03:08 58 16 100 Mechanical Ventilator 30 58 16 30 02/13/19 03:00 88 18 161/81 (107) 99 02/13/19 03:00 171/91 02/13/19 02:30 74 18 155/77 (103) 99 02/13/19 02:00 88 18 110/86 (94) 99 02/13/19 02:00 Mechanical Ventilator 02/13/19 02:00 110/76 02/13/19 01:30 81 16 150/64 (92) 99 02/13/19 01:04 65 16 30 02/13/19 01:00 16 Mechanical Ventilator 30 02/13/19 01:00 156/64 02/13/19 01:00 66 16 156/64 (94) 99 02/13/19 00:45 30 02/13/19 00:30 64 18 169/78 (108) 99 02/13/19 00:00 98.8 75 18 100/73 (82) 99 02/13/19 00:00 Mechanical Ventilator 02/13/19 00:00 18 Mechanical Ventilator 30 02/13/19 00:00 111/76 02/13/19 00:00 72 02/12/19 23:30 74 18 101/73 (82) 99 02/12/19 23:01 97 16 100 Mechanical Ventilator 30 97 16 30 02/12/19 23:00 74 18 124/77 (93) 100 02/12/19 23:00 20 Mechanical Ventilator 30 02/12/19 23:00 124/79 02/12/19 22:30 79 17 81/53 (62) 100 02/12/19 22:00 18 Mechanical Ventilator 30 02/12/19 22:00 81/53 02/12/19 22:00 80 17 99/69 (79) 99 02/12/19 21:30 77 17 91/76 (81) 99 02/12/19 21:00 77 17 88/71 (77) 99 02/12/19 21:00 86 17 30 02/12/19 21:00 16 Mechanical Ventilator 30 02/12/19 21:00 91/76 02/12/19 20:30 82 17 90/70 (77) 98 02/12/19 20:00 98.0 82 19 86/54 (65) 98 02/12/19 20:00 110 02/12/19 20:00 18 Mechanical Ventilator 30 02/12/19 20:00 88/71 02/12/19 20:00 Mechanical Ventilator 02/12/19 20:00 30 02/12/19 20:00 98.2 82 17 115/94 (101) 97 02/12/19 19:04 92 16 98 Mechanical Ventilator 30 92 16 30 02/12/19 19:00 101 19 86/54 (65) 98 02/12/19 19:00 100/64 02/12/19 18:00 96 15 75/50 (58) 100 02/12/19 18:00 75/50 02/12/19 17:59 97 16 67/46 (53) 100 02/12/19 17:45 88 14 155/99 (117) 99 02/12/19 17:30 89 17 155/75 (101) 100 02/12/19 17:30 89 17 155/75 (101) 100 02/12/19 17:30 58 16 Mechanical Ventilator 30 30 02/12/19 17:15 68 16 82/59 (67) 100 02/12/19 17:01 89/45 02/12/19 17:00 68 14 92/53 (66) 100 02/12/19 16:01 97.5 02/12/19 16:00 30 02/12/19 16:00 Trach Collar 02/12/19 16:00 70 02/12/19 16:00 16 Mechanical Ventilator 100 02/12/19 16:00 97.6 70 16 89/45 (60) 100 02/12/19 15:30 67 16 87/42 (57) 100 02/12/19 15:11 68 16 100 Mechanical Ventilator 30 63 16 30 02/12/19 15:00 18 Mechanical Ventilator 100 02/12/19 15:00 68 16 98/53 (68) 100 02/12/19 14:00 68 16 88/56 (67) 100 02/12/19 14:00 16 Mechanical Ventilator 100 02/12/19 13:02 71 16 Mechanical Ventilator 30 02/12/19 13:00 73 14 99/59 (72) 100 02/12/19 13:00 18 Mechanical Ventilator 100 02/12/19 12:00 Trach Collar 02/12/19 12:00 30 02/12/19 12:00 78 02/12/19 12:00 18 Mechanical Ventilator 100 02/12/19 12:00 84 16 Mechanical Ventilator 30 02/12/19 12:00 97.5 88 17 111/63 (79) 100 02/12/19 10:30 75 18 92/52 (65) 100 02/12/19 10:00 73 16 85/43 (57) 100 02/12/19 10:00 16 Mechanical Ventilator 100 02/12/19 09:50 59 16 30 02/12/19 09:30 82 16 88/47 (61) 100 02/12/19 09:00 83 20 125/98 (107) 99 02/12/19 09:00 20 Mechanical Ventilator 02/12/19 08:30 67 17 93/67 (76) 100 02/12/19 08:00 Mechanical Ventilator 02/12/19 08:00 71 02/12/19 08:00 20 Mechanical Ventilator 100 02/12/19 08:00 30 02/12/19 08:00 98.1 65 17 88/51 (63) 100 02/12/19 07:26 58 16 100 Mechanical Ventilator 30 58 16 30 02/12/19 07:00 74 16 105/50 (68) 100 02/12/19 07:00 18 Mechanical Ventilator 30 02/12/19 06:30 61 16 103/60 (74) 100 02/12/19 06:00 18 Mechanical Ventilator 30 02/12/19 06:00 64 16 89/61 (70) 100 02/12/19 05:30 59 16 115/47 (69) 100 02/12/19 05:09 59 16 30 02/12/19 05:00 64 16 89/61 (70) 100 02/12/19 05:00 16 Mechanical Ventilator 30 02/12/19 04:30 58 16 112/62 (79) 100 02/12/19 04:00 30 02/12/19 04:00 18 Mechanical Ventilator 02/12/19 04:00 97.8 74 16 117/62 (80) 100 02/12/19 04:00 74 02/12/19 04:00 Mechanical Ventilator 02/12/19 03:30 56 16 115/66 (82) 100 02/12/19 03:21 19 30 02/12/19 03:04 54 16 100 Mechanical Ventilator 30 57 16 30 02/12/19 03:00 59 16 92/60 (71) 100 02/12/19 03:00 16 Mechanical Ventilator 30 02/12/19 02:30 53 16 93/48 (63) 100 02/12/19 02:00 59 19 104/63 (77) 94 02/12/19 02:00 18 Mechanical Ventilator 30 02/12/19 01:30 77 19 97/61 (73) 94 02/12/19 01:09 66 16 30 02/12/19 01:00 18 Mechanical Ventilator 30 02/12/19 01:00 61 16 100/40 (60) 100 02/12/19 00:30 57 16 91/40 (57) 100 02/12/19 00:00 30 02/12/19 00:00 Mechanical Ventilator 02/12/19 00:00 18 Mechanical Ventilator 30 02/12/19 00:00 61 02/12/19 00:00 97.6 61 16 98/40 (59) 100 02/11/19 23:30 62 16 97/40 (59) 100 02/11/19 23:00 72 16 86/47 (60) 100 02/11/19 23:00 18 Mechanical Ventilator 30 02/11/19 22:59 70 16 100 Mechanical Ventilator 30 70 16 30 02/11/19 22:30 72 16 87/63 (71) 100 02/11/19 22:00 17 Mechanical Ventilator 30 02/11/19 22:00 72 18 86/63 (71) 100 02/11/19 21:30 72 18 99/72 (81) 100 02/11/19 21:00 74 17 97/72 (80) 100 02/11/19 21:00 17 Mechanical Ventilator 30 02/11/19 20:43 78 16 30 02/11/19 20:30 77 16 122/78 (93) 100 02/11/19 20:00 98.0 78 17 83/61 (68) 100 02/11/19 20:00 17 Mechanical Ventilator 30 02/11/19 20:00 Mechanical Ventilator 02/11/19 20:00 30 02/11/19 20:00 78 02/11/19 19:15 18 Mechanical Ventilator 30 02/11/19 19:05 74 16 100 Mechanical Ventilator 30 66 16 30 30 02/11/19 19:00 66 16 102/67 (79) 100 02/11/19 19:00 18 Mechanical Ventilator 30 Intake and Output 02/12/19 02/13/19 19:00 07:00 Intake Total 705.816 ml 845.844 ml Output Total 325 ml 635 ml Balance 380.816 ml 210.844 ml Intake Free Water 30 ml IV Total 660.816 ml 695.844 ml Tube Feeding 15 ml 150 ml Output Urine Total 325 ml 635 ml # Bowel Movements 3 Labs Test 02/10/19 21:00 02/11/19 04:00 02/11/19 08:25 02/11/19 17:40 Arterial Blood pH 7.486 (7.350-7.450) 7.460 (7.350-7.450) 7.410 (7.350-7.450) Arterial Blood Partial Pressure CO2 49.9 mmHg (35.0-45.0) 51.5 mmHg (35.0-45.0) 61.5 mmHg (35.0-45.0) Arterial Blood Partial Pressure O2 55.0 mmHg (75.0-100.0) 75.8 mmHg (75.0-100.0) 60.8 mmHg (75.0-100.0) Arterial Blood HCO3 36.8 mmol/L (22.0-26.0) 35.8 mmol/L (22.0-26.0) 38.1 mmol/L (22.0-26.0) Arterial Blood Oxygen Saturation 90.1 % (95-100) 94.3 % (95-100) 89.6 % (95-100) Arterial Blood Base Excess 11.9 (-2-2) 10.6 (-2-2) 11.5 (-2-2) Delon Test Positive Positive Positive White Blood Count 17.1 K/UL (4.8-10.8) Red Blood Count 3.27 M/UL (4.70-6.10) Hemoglobin 9.9 G/DL (14.2-18.0) Hematocrit 31.4 % (42.0-52.0) Mean Corpuscular Volume 96 FL (80-99) Mean Corpuscular Hemoglobin 30.4 PG (27.0-31.0) Mean Corpuscular Hemoglobin Concent 31.6 G/DL (32.0-36.0) Red Cell Distribution Width 14.7 % (11.6-14.8) Platelet Count 109 K/UL (150-450) Mean Platelet Volume 7.0 FL (6.5-10.1) Neutrophils (%) (Auto) % (45.0-75.0) Lymphocytes (%) (Auto) % (20.0-45.0) Monocytes (%) (Auto) % (1.0-10.0) Eosinophils (%) (Auto) % (0.0-3.0) Basophils (%) (Auto) % (0.0-2.0) Differential Total Cells Counted 100 Neutrophils % (Manual) 95 % (45-75) Lymphocytes % (Manual) 4 % (20-45) Monocytes % (Manual) 1 % (1-10) Eosinophils % (Manual) 0 % (0-3) Basophils % (Manual) 0 % (0-2) Band Neutrophils 0 % (0-8) Platelet Estimate Decreased Platelet Morphology Normal Hypochromasia 1+ Anisocytosis 1+ Sodium Level 143 MMOL/L (136-145) Potassium Level 3.7 MMOL/L (3.5-5.1) Chloride Level 103 MMOL/L (98-107) Carbon Dioxide Level 39 MMOL/L (21-32) Anion Gap 1 mmol/L (5-15) Blood Urea Nitrogen 19 mg/dL (7-18) Creatinine 0.8 MG/DL (0.55-1.30) Estimat Glomerular Filtration Rate mL/min (>60) Glucose Level 125 MG/DL (74-106) Calcium Level 8.5 MG/DL (8.5-10.1) Phosphorus Level 2.4 MG/DL (2.5-4.9) Magnesium Level 1.9 MG/DL (1.8-2.4) Total Bilirubin 0.7 MG/DL (0.2-1.0) Direct Bilirubin 0.2 MG/DL (0.0-0.3) Aspartate Amino Transf (AST/SGOT) 32 U/L (15-37) Alanine Aminotransferase (ALT/SGPT) 49 U/L (12-78) Alkaline Phosphatase 63 U/L (46-116) Total Protein 5.1 G/DL (6.4-8.2) Albumin 2.3 G/DL (3.4-5.0) Test 02/12/19 03:10 02/13/19 04:20 White Blood Count 15.4 K/UL (4.8-10.8) 14.7 K/UL (4.8-10.8) Red Blood Count 2.95 M/UL (4.70-6.10) 2.92 M/UL (4.70-6.10) Hemoglobin 8.9 G/DL (14.2-18.0) 8.7 G/DL (14.2-18.0) Hematocrit 28.0 % (42.0-52.0) 28.4 % (42.0-52.0) Mean Corpuscular Volume 95 FL (80-99) 97 FL (80-99) Mean Corpuscular Hemoglobin 30.2 PG (27.0-31.0) 29.9 PG (27.0-31.0) Mean Corpuscular Hemoglobin Concent 31.8 G/DL (32.0-36.0) 30.8 G/DL (32.0-36.0) Red Cell Distribution Width 15.1 % (11.6-14.8) 15.1 % (11.6-14.8) Platelet Count 102 K/UL (150-450) 96 K/UL (150-450) Mean Platelet Volume 7.1 FL (6.5-10.1) 6.5 FL (6.5-10.1) Neutrophils (%) (Auto) % (45.0-75.0) % (45.0-75.0) Lymphocytes (%) (Auto) % (20.0-45.0) % (20.0-45.0) Monocytes (%) (Auto) % (1.0-10.0) % (1.0-10.0) Eosinophils (%) (Auto) % (0.0-3.0) % (0.0-3.0) Basophils (%) (Auto) % (0.0-2.0) % (0.0-2.0) Differential Total Cells Counted 100 100 Neutrophils % (Manual) 94 % (45-75) 89 % (45-75) Lymphocytes % (Manual) 2 % (20-45) 5 % (20-45) Monocytes % (Manual) 4 % (1-10) 6 % (1-10) Eosinophils % (Manual) 0 % (0-3) 0 % (0-3) Basophils % (Manual) 0 % (0-2) 0 % (0-2) Band Neutrophils 0 % (0-8) 0 % (0-8) Platelet Estimate Decreased Decreased Platelet Morphology Normal Normal Prothrombin Time 11.3 SEC (9.30-11.50) Prothromb Time International Ratio 1.1 (0.9-1.1) Activated Partial Thromboplast Time 28 SEC (23-33) Sodium Level 145 MMOL/L (136-145) Potassium Level 4.4 MMOL/L (3.5-5.1) Chloride Level 105 MMOL/L (98-107) Carbon Dioxide Level 39 MMOL/L (21-32) Anion Gap 1 mmol/L (5-15) Blood Urea Nitrogen 18 mg/dL (7-18) Creatinine 0.9 MG/DL (0.55-1.30) Estimat Glomerular Filtration Rate mL/min (>60) Glucose Level 144 MG/DL (74-106) Calcium Level 8.3 MG/DL (8.5-10.1) Phosphorus Level 3.0 MG/DL (2.5-4.9) Magnesium Level 1.8 MG/DL (1.8-2.4) Total Bilirubin 0.6 MG/DL (0.2-1.0) Aspartate Amino Transf (AST/SGOT) 23 U/L (15-37) Alanine Aminotransferase (ALT/SGPT) 41 U/L (12-78) Alkaline Phosphatase 62 U/L (46-116) Total Protein 4.6 G/DL (6.4-8.2) Albumin 2.0 G/DL (3.4-5.0) Globulin 2.6 g/dL Albumin/Globulin Ratio 0.8 (1.0-2.7) Height (Feet): 5 Height (Inches): 10.00 Weight (Pounds): 163 Lymphatic: firm other Objective General: no bleeding or chills Head: normocephalic, atraumatic Neck: supple ++ NG Respiratory: generally reduced bs, o++ trach Cardiovascular: tachycardia, HS1, HS2, RRR Gastrointestinal: non tender, soft Musculoskeletal: normal inspection Neurologic: sedated on ventilator Skin: no rash, palpation normal Conrado Morel MD Feb 13, 2019 18:58
--- NOTE | 2019-02-13 19:00 | NUR ---
RESPIRATORY NOTE: Received pt on AC 16, 500VT, 30%, PEEP +5. Pt is trach-dependent w/ a cuffed, Shiley 8 tube. Pt is alert/awake, follows commands, asleep most of the time. B/S bogdan. diminished, sxn small amounts of thick/thin, bloody secretions. Vent plugged into red outlet, ambubag at bedside. Pt in no apparent distress at this time. Will continue to monitor pt.
--- NOTE | 2019-02-13 19:15 | NUR ---
HAND-OFF: Report given to GENNY Guzman.
--- NOTE | 2019-02-13 19:47 | Cardiology Progress Note ---
Assessment/Plan Assessment/Plan 1. Cardiopulmonary arrest due to anoxia, 2D echo reveals normal LVEF. 2. Non-STEMI, conservative management in face of DNR. 3. Moderate aortic regurgitation. 4. Ventilatory derived respiratory failure, s/p trach placement, POD #2. 5. Hypernatremia, better with hypotonic fluids. 6. Aspiration pneumonia/leukocytosis slightly worsened. 7. 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 8. Thrombocytopenia, will monitor platelet count. Subjective Subjective Sinus rhythm at rate of 96. Attached to the ventilator with FiO2 of 30%. s/p tracheostomy, POD #2 Objective Last 24 Hour Vital Signs Date Time Temp Pulse Resp B/P (MAP) Pulse Ox O2 Delivery O2 Flow Rate FiO2 02/13/19 19:00 96 17 114/85 (95) 100 02/13/19 19:00 114/85 02/13/19 18:59 91 18 100 Mechanical Ventilator 30 95 17 30 02/13/19 18:30 83 18 119/28 (58) 100 02/13/19 18:00 122/96 02/13/19 18:00 88 16 122/96 (105) 100 02/13/19 17:30 94 16 130/71 (90) 100 02/13/19 17:00 98 16 125/77 (93) 100 02/13/19 17:00 125/77 02/13/19 16:31 92 17 30 02/13/19 16:30 96 16 109/93 (98) 100 02/13/19 16:00 30 02/13/19 16:00 98.9 93 16 94/61 (72) 100 02/13/19 16:00 Mechanical Ventilator 02/13/19 16:00 94/61 02/13/19 16:00 93 02/13/19 15:30 92 16 120/87 (98) 100 02/13/19 15:28 90 16 100 Mechanical Ventilator 30 91 16 30 02/13/19 15:00 90 16 116/93 (101) 100 02/13/19 15:00 116/93 02/13/19 14:30 86 16 109/92 (98) 100 02/13/19 14:00 84 15 109/92 (98) 100 02/13/19 14:00 109/92 02/13/19 13:30 91 17 101/79 (86) 100 02/13/19 13:00 79 16 120/50 (73) 100 02/13/19 13:00 120/51 02/13/19 12:54 92 17 30 02/13/19 12:30 92 22 127/76 (93) 100 02/13/19 12:24 111/89 02/13/19 12:00 99.0 89 18 111/89 (96) 100 02/13/19 12:00 111/89 02/13/19 12:00 30 02/13/19 12:00 90 02/13/19 12:00 Mechanical Ventilator 02/13/19 11:30 90 18 126/71 (89) 100 02/13/19 11:00 88 16 100 Mechanical Ventilator 30 97 16 30 02/13/19 11:00 91 16 98/81 (87) 100 02/13/19 11:00 113/74 02/13/19 10:30 88 18 109/68 (82) 100 02/13/19 10:00 87 17 111/99 (103) 100 02/13/19 10:00 111/99 02/13/19 09:30 85 17 116/78 (91) 100 02/13/19 09:00 93 18 99/75 (83) 100 02/13/19 09:00 99/74 02/13/19 08:45 81 17 30 02/13/19 08:30 88 19 94/61 (72) 100 02/13/19 08:01 30 02/13/19 08:00 88 02/13/19 08:00 98.8 96 16 145/64 (91) 100 02/13/19 08:00 Mechanical Ventilator 02/13/19 08:00 94/78 02/13/19 07:30 96 18 73/47 (56) 100 02/13/19 07:17 92 16 100 Mechanical Ventilator 30 107 16 30 02/13/19 07:00 58/30 02/13/19 07:00 70 18 115/61 (79) 100 02/13/19 06:30 72 18 110/60 (77) 100 02/13/19 06:00 71 18 148/61 (90) 100 02/13/19 06:00 144/60 02/13/19 05:30 67 18 144/60 (88) 100 8/28/19 05:00 92 18 99/38 (58) 100 02/13/19 05:00 99/36 02/13/19 04:55 85 16 30 02/13/19 04:30 82 18 139/60 (86) 99 02/13/19 04:00 30 02/13/19 04:00 98.0 82 18 139/60 (86) 99 02/13/19 04:00 80 02/13/19 04:00 151/62 02/13/19 04:00 Mechanical Ventilator 02/13/19 03:36 90/60 02/13/19 03:30 85 18 151/62 (91) 99 02/13/19 03:08 58 16 100 Mechanical Ventilator 30 58 16 30 02/13/19 03:00 88 18 161/81 (107) 99 02/13/19 03:00 171/91 02/13/19 02:30 74 18 155/77 (103) 99 02/13/19 02:00 88 18 110/86 (94) 99 02/13/19 02:00 Mechanical Ventilator 02/13/19 02:00 110/76 02/13/19 01:30 81 16 150/64 (92) 99 02/13/19 01:04 65 16 30 02/13/19 01:00 16 Mechanical Ventilator 30 02/13/19 01:00 156/64 02/13/19 01:00 66 16 156/64 (94) 99 02/13/19 00:45 30 02/13/19 00:30 64 18 169/78 (108) 99 02/13/19 00:00 98.8 75 18 100/73 (82) 99 02/13/19 00:00 Mechanical Ventilator 02/13/19 00:00 18 Mechanical Ventilator 30 02/13/19 00:00 111/76 02/13/19 00:00 72 02/12/19 23:30 74 18 101/73 (82) 99 02/12/19 23:01 97 16 100 Mechanical Ventilator 30 97 16 30 02/12/19 23:00 74 18 124/77 (93) 100 02/12/19 23:00 20 Mechanical Ventilator 30 02/12/19 23:00 124/79 02/12/19 22:30 79 17 81/53 (62) 100 02/12/19 22:00 18 Mechanical Ventilator 30 02/12/19 22:00 81/53 8/27/19 22:00 80 17 99/69 (79) 99 02/12/19 21:30 77 17 91/76 (81) 99 02/12/19 21:00 77 17 88/71 (77) 99 02/12/19 21:00 86 17 30 02/12/19 21:00 16 Mechanical Ventilator 30 02/12/19 21:00 91/76 02/12/19 20:30 82 17 90/70 (77) 98 02/12/19 20:00 98.0 82 19 86/54 (65) 98 02/12/19 20:00 110 02/12/19 20:00 18 Mechanical Ventilator 30 02/12/19 20:00 88/71 02/12/19 20:00 Mechanical Ventilator 02/12/19 20:00 30 02/12/19 20:00 98.2 82 17 115/94 (101) 97 Intake and Output 02/12/19 02/13/19 19:00 07:00 Intake Total 705.816 ml 845.844 ml Output Total 325 ml 635 ml Balance 380.816 ml 210.844 ml Intake Free Water 30 ml IV Total 660.816 ml 695.844 ml Tube Feeding 15 ml 150 ml Output Urine Total 325 ml 635 ml # Bowel Movements 3 2D Echo: LVEF 55%, moderate AR Laboratory Tests Test 02/13/19 04:20 White Blood Count 14.7 K/UL (4.8-10.8) H Red Blood Count 2.92 M/UL (4.70-6.10) L Hemoglobin 8.7 G/DL (14.2-18.0) L Hematocrit 28.4 % (42.0-52.0) L Mean Corpuscular Volume 97 FL (80-99) Mean Corpuscular Hemoglobin 29.9 PG (27.0-31.0) Mean Corpuscular Hemoglobin Concent 30.8 G/DL (32.0-36.0) L Red Cell Distribution Width 15.1 % (11.6-14.8) H Platelet Count 96 K/UL (150-450) L Mean Platelet Volume 6.5 FL (6.5-10.1) Neutrophils (%) (Auto) % (45.0-75.0) Lymphocytes (%) (Auto) % (20.0-45.0) Monocytes (%) (Auto) % (1.0-10.0) Eosinophils (%) (Auto) % (0.0-3.0) Basophils (%) (Auto) % (0.0-2.0) Differential Total Cells Counted 100 Neutrophils % (Manual) 89 % (45-75) H Lymphocytes % (Manual) 5 % (20-45) L Monocytes % (Manual) 6 % (1-10) Eosinophils % (Manual) 0 % (0-3) Basophils % (Manual) 0 % (0-2) Band Neutrophils 0 % (0-8) Platelet Estimate Decreased L Platelet Morphology Normal Objective HEENT: Atraumatic, arousable, orally intubated, conjunctival pallor. NECK: Cannot assess JVD, no carotid bruit. Trach tube in place. LUNGS: Bilateral breath sounds. Few rhonchi. No wheezing. CARDIAC: Regular rhythm and rate. Normal S1 and S2. No murmurs, gallops or rubs. ABDOMEN: Soft, non-distended, + BS. EXTREMITIES: No edema, clubbing or cyanosis. Lv Zuniga MD Feb 13, 2019 19:47
--- NOTE | 2019-02-13 19:50 | NUR ---
NURSE NOTES: PATIENT ANXIOUS, OPEN EYES, DID NOT FOLLOW COMMANDS, ON TRACH TO VENT AC16/TV500/FIO2 30%/PEEP5, O2 SATURATION OVER 94% NOTED AT THIS TIME, TRACH SITE NO ACTIVE BLEEDING NOTED, NGT TO LEFT NARES, INTACT AND PATENT, ONGOING GLUCERNA 1.5 AT 30ML/HR, NO RESIDUE NOTED, ABDOMEN SOFT, HYPOACTIVE BOWEL SOUND, F/C INTACT AND PATENT, YELLOW URINE OUTED, MID LINE TO LEFT UPPER ARM, INTACT, ONGOING DOPAMINE 2MCG/KG/MIN, 2 POINT SOFT RESTRAINTS STATUS FOR SAFETY, MADE LOWER BED POSITION, KEPT HOB OVER 30 DEGREES, PROVIDED CALL LIGHT WITHIN REACH, WILL CONTINUE TO MONITOR.
[2019-02-13] MEDS: Dyna-Hex 2% Top Sol 2oz TOPIC SCH (20:01)
--- NOTE | 2019-02-13 20:11 | Pulmonolgy Critical Care Note ---
Critical Care - Asmt/Plan Assessment/Plan: Pulmonary Critical Care Progress Note HPI Patient is a 73 year olf man with previous history of COPD, CHF, HTN, DM admitted with extreme respiratory distress, intubated in the ED, subsequent Cardiac Arrest. Noted to have hypercapneic respiratory failure. Less interactive today, on continuous BiPAP, ABG stable - s/p Tracheostomy tolerated well, NGT in good position, pressors being weaned Stable on ACVC Allergies: No Known Allergies Past Medical History: COPD/Asthma, CHF, Hypertension, DM All Other Systems: limited Physical Exam Vital signs noted General Appearance: sedated Head: normocephalic, atraumatic Eyes: bilateral eye PERRL, bilateral eye EOMI ENT: moist mm, no LN Neck: supple Respiratory: generally reduced BS Cardiovascular: tachycardia, HS1, HS2, RRR Gastrointestinal: non tender, soft Musculoskeletal: normal inspection Neurologic: sedated, no focal signs Skin: no rash, palpation normal Impression: COPD exacerbation Hypercapneic respiratory failure - s/p Traheostomy S/p cardiac arrest in the ED CHF HTN Diabetes Plan ACVC - wean as tolerated Adjust FIO2 for sats 90-94% HHN Q4 IV Solumedrol - reduce Sedation PRN Sz management Monitor labs PPX Antibiotics per ID DNR status Labs noted Chest X-Ray: No consolidation, no effusion, ETT tube 7cm, PICC line good position Critical Care - Objective Last 24 Hour Vital Signs Date Time Temp Pulse Resp B/P (MAP) Pulse Ox O2 Delivery O2 Flow Rate FiO2 02/13/19 19:00 96 17 114/85 (95) 100 02/13/19 19:00 114/85 02/13/19 18:59 91 18 100 Mechanical Ventilator 30 95 17 30 02/13/19 18:30 83 18 119/28 (58) 100 02/13/19 18:00 122/96 02/13/19 18:00 88 16 122/96 (105) 100 02/13/19 17:30 94 16 130/71 (90) 100 02/13/19 17:00 98 16 125/77 (93) 100 02/13/19 17:00 125/77 02/13/19 16:31 92 17 30 02/13/19 16:30 96 16 109/93 (98) 100 02/13/19 16:00 30 02/13/19 16:00 98.9 93 16 94/61 (72) 100 02/13/19 16:00 Mechanical Ventilator 02/13/19 16:00 94/61 02/13/19 16:00 93 02/13/19 15:30 92 16 120/87 (98) 100 02/13/19 15:28 90 16 100 Mechanical Ventilator 30 91 16 30 02/13/19 15:00 90 16 116/93 (101) 100 02/13/19 15:00 116/93 02/13/19 14:30 86 16 109/92 (98) 100 02/13/19 14:00 84 15 109/92 (98) 100 02/13/19 14:00 109/92 02/13/19 13:30 91 17 101/79 (86) 100 02/13/19 13:00 79 16 120/50 (73) 100 02/13/19 13:00 120/51 02/13/19 12:54 92 17 30 02/13/19 12:30 92 22 127/76 (93) 100 02/13/19 12:24 111/89 02/13/19 12:00 99.0 89 18 111/89 (96) 100 02/13/19 12:00 111/89 02/13/19 12:00 30 02/13/19 12:00 90 02/13/19 12:00 Mechanical Ventilator 02/13/19 11:30 90 18 126/71 (89) 100 02/13/19 11:00 88 16 100 Mechanical Ventilator 30 97 16 30 02/13/19 11:00 91 16 98/81 (87) 100 02/13/19 11:00 113/74 02/13/19 10:30 88 18 109/68 (82) 100 02/13/19 10:00 87 17 111/99 (103) 100 02/13/19 10:00 111/99 02/13/19 09:30 85 17 116/78 (91) 100 02/13/19 09:00 93 18 99/75 (83) 100 02/13/19 09:00 99/74 02/13/19 08:45 81 17 30 02/13/19 08:30 88 19 94/61 (72) 100 02/13/19 08:01 30 02/13/19 08:00 88 02/13/19 08:00 98.8 96 16 145/64 (91) 100 02/13/19 08:00 Mechanical Ventilator 02/13/19 08:00 94/78 02/13/19 07:30 96 18 73/47 (56) 100 02/13/19 07:17 92 16 100 Mechanical Ventilator 30 107 16 30 02/13/19 07:00 58/30 02/13/19 07:00 70 18 115/61 (79) 100 02/13/19 06:30 72 18 110/60 (77) 100 02/13/19 06:00 71 18 148/61 (90) 100 02/13/19 06:00 144/60 02/13/19 05:30 67 18 144/60 (88) 100 02/13/19 05:00 92 18 99/38 (58) 100 02/13/19 05:00 99/36 02/13/19 04:55 85 16 30 02/13/19 04:30 82 18 139/60 (86) 99 02/13/19 04:00 30 02/13/19 04:00 98.0 82 18 139/60 (86) 99 02/13/19 04:00 80 02/13/19 04:00 151/62 02/13/19 04:00 Mechanical Ventilator 02/13/19 03:36 90/60 02/13/19 03:30 85 18 151/62 (91) 99 02/13/19 03:08 58 16 100 Mechanical Ventilator 30 58 16 30 02/13/19 03:00 88 18 161/81 (107) 99 02/13/19 03:00 171/91 02/13/19 02:30 74 18 155/77 (103) 99 02/13/19 02:00 88 18 110/86 (94) 99 02/13/19 02:00 Mechanical Ventilator 02/13/19 02:00 110/76 02/13/19 01:30 81 16 150/64 (92) 99 02/13/19 01:04 65 16 30 02/13/19 01:00 16 Mechanical Ventilator 30 02/13/19 01:00 156/64 02/13/19 01:00 66 16 156/64 (94) 99 02/13/19 00:45 30 02/13/19 00:30 64 18 169/78 (108) 99 02/13/19 00:00 98.8 75 18 100/73 (82) 99 02/13/19 00:00 Mechanical Ventilator 02/13/19 00:00 18 Mechanical Ventilator 30 02/13/19 00:00 111/76 02/13/19 00:00 72 02/12/19 23:30 74 18 101/73 (82) 99 02/12/19 23:01 97 16 100 Mechanical Ventilator 30 97 16 30 02/12/19 23:00 74 18 124/77 (93) 100 02/12/19 23:00 20 Mechanical Ventilator 30 02/12/19 23:00 124/79 02/12/19 22:30 79 17 81/53 (62) 100 02/12/19 22:00 18 Mechanical Ventilator 30 02/12/19 22:00 81/53 02/12/19 22:00 80 17 99/69 (79) 99 02/12/19 21:30 77 17 91/76 (81) 99 02/12/19 21:00 77 17 88/71 (77) 99 02/12/19 21:00 86 17 30 02/12/19 21:00 16 Mechanical Ventilator 30 02/12/19 21:00 91/76 02/12/19 20:30 82 17 90/70 (77) 98 Accucheck: 86 Critical Care - Subjective ROS Limited/Unobtainable: No FI02: 30 Vent Support Breath Rate: 16 Vent Support Mode: AC Vent Tidal Volume: 500 Sputum Amount: Small PEEP: 5.0 PIP: 21 Tube Feeding Amount: 30 I&O: Intake and Output 02/12/19 02/13/19 19:00 07:00 Intake Total 705.816 ml 845.844 ml Output Total 325 ml 635 ml Balance 380.816 ml 210.844 ml Intake Free Water 30 ml IV Total 660.816 ml 695.844 ml Tube Feeding 15 ml 150 ml Output Urine Total 325 ml 635 ml # Bowel Movements 3 ET-Tube: 7.5 ET Position: 24 Johny White MD Feb 13, 2019 20:11
[2019-02-13] MEDS: fentaNYL Citrate 1000 MCG in NS 100ml IV SCH (20:30)
[2019-02-13] MEDS: Miralax 17gm pkt NG SCH (20:52)
--- NOTE | 2019-02-13 20:55 | NUR ---
NURSE NOTES: PATIENT ANXIOUS, RESTLESSNESS IN BED, GIVEN ATIVAN 0.5MG BY IVP SLOWLY PRN ORDERED, WILL CONTINUE TO MONITOR.
--- NOTE | 2019-02-13 23:33 | NUR ---
NURSE NOTES: BS 61MG/DL NOTED, GIVEN D50%W 25ML IVP SLOWLY PRN ORDERED, WILL CONTINUE TO MONITOR.
--- NOTE | 2019-02-13 23:45 | NUR ---
NURSE NOTES: BS 76MG/DL NOTED, NO HYPOGLYCEMIA SIGN NOTED AT THIS TIME, WILL CONTINUE TO MONITOR.
[2019-02-14] VITALS (33 sets, daily range): BP systolic 100–163; BP diastolic 55–110
--- NOTE | 2019-02-14 00:25 | NUR ---
NURSE NOTES: PATIENT IRRITABLE IN BED, ORAL CARE WAS DONE, RELEASED RESTRAINTS AND REAPPLIED FOR SAFETY.
--- NOTE | 2019-02-14 02:00 | NUR ---
NURSE NOTES: ASLEEP STATUS, TURNED DOPAMINE DRIP OFF PER PROTOCOLS DUE TO SBP OVER 90MMHG, WILL CONTINUE PLAN OF CARE.
[2019-02-14] MEDS: Albuterol/Ipratropium 3ml neb HHN SCH ×5 (02:51→19:55)
--- NOTE | 2019-02-14 03:20 | NUR ---
NURSE NOTES: MORNING CARE WAS DONE, RESISTANCE TO CARE, RELEASED RESTRAINTS AND REAPPLIED FOR SAFETY.
[2019-02-14] MEDS: LORazepam Inj 2mg/ml 1ml IV PRN (03:40)
[2019-02-14] MEDS: Vancomycin 750mg/NS 275ml IVPB SCH ×6 (03:40→20:47)
--- NOTE | 2019-02-14 03:40 | NUR ---
NURSE NOTES: PATIENT AWOKE, ANXIOUS AND AGITATED, GIVEN ATIVAN 0.5MG BY IVP SLOWLY PRN ORDERED, WILL CONTINUE TO MONITOR.
[2019-02-14 05:13] LABS: HEMATOCRIT 27.1 % (42.0-52.0); HEMOGLOBIN 8.5 G/DL (14.2-18.0); MEAN CORPUSCULAR VOLUME 96 FL (80-99); PLATELET COUNT 109 K/UL (150-450); RED BLOOD COUNT 2.83 M/UL (4.70-6.10); RED CELL DISTRIBUTION WIDTH 14.9 % (11.6-14.8); WHITE BLOOD COUNT 12.6 K/UL (4.8-10.8)
[2019-02-14] MEDS: NovoLOG Insulin Flexpen SUBQ SCH ×3 (05:33→17:10)
[2019-02-14] MEDS: Meropenem 2 GM in NS 110 ML IVPB SCH ×3 (05:33→22:53)
[2019-02-14 05:57] LABS: ANION GAP 1 mmol/L (5-15); BLOOD UREA NITROGEN 17 mg/dL (7-18); CALCIUM 8.6 MG/DL (8.5-10.1); CARBON DIOXIDE 39 MMOL/L (21-32); CHLORIDE 103 MMOL/L (98-107); CREATININE 0.8 MG/DL (0.55-1.30); POTASSIUM 3.7 MMOL/L (3.5-5.1); SODIUM 143 MMOL/L (136-145)
--- NOTE | 2019-02-14 06:10 | NUR ---
NURSE NOTES: NO PAIN OR DISTRESS NOTED AT THIS TIME, WEEPING FROM PREVIOUS FORKING SITE, KEPT NPO FOR WEANING PROTOCOLS, WILL CONTINUE PLAN OF CARE.
--- NOTE | 2019-02-14 07:05 | NUR ---
HAND-OFF: Report given to GENNY BUNCH.
--- NOTE | 2019-02-14 07:06 | NUR ---
NURSE NOTES: RECEIVED PATIENT FROM Lionel ALEGRIA RN. PATIENT IS SEEN LYING IN BED, RESTLESS. STILL ON BW RESTRAINTS DUE TO PULLING THE TRACH. HOOKED TO ENGINE[employer]OND ASSISTANT. HR OF 77. TRACH TO VENT SHILEY 8, VENT SETTINGS AC 16, TV 500, FiO2 AT 30%, PEEP 5. NO SIGNS OF DISTRESS OF THE MOMENT. WITH L NGT. TUBE FEEDS OFF - FOR WEANING TRIAL TODAY. [place] CONNECTED TO BAG, PATENT AND DRAINING YELLOW URINE. NOTED GENERALIZED EDEMA AND WHIPPING ON BUE. PICC LINE WAS PULLED OUT, NOTED LINE ON L UA USED MIDLINE. CALL LIGHT WITHIN REACH. BED AT LOWEST POSITION. SIDE RAILS UP AND PADDED. WILL CONTINUE TO MONITOR
--- NOTE | 2019-02-14 07:17 | NUR ---
RESPIRATORY NOTE: received pt on current vent settings. trach with shiley [address], secured via trach tie. pt in no resp distress at this time. alarms are on and audible with back up trach and ambu bag at bedside. will attempt to wean later this morning and cont to monitor.
--- NOTE | 2019-02-14 07:40 | General Progress Note ---
Progress Note Progress Note late entry note for 02/13/2019 Assessment/Plan Assessment/Plan Problems: (1) Aspiration pneumonia Assessment & Plan: due to pseudomonas aeruginosa , continue meropenem with higher dose for two weeks , aspiration precaution . EOT 02/21/19 (2) Leukocytosis Assessment & Plan: PARTIALLY DUE TO STEROIDS , with no evidence rule out sepsis , repeated blood culture x2 is negative , continue meropenem and vancomycin empirically pending cultures . IJ line was removed. taper steroids (3) Acute exacerbation of chronic obstructive pulmonary disease (COPD) Assessment & Plan: S/P doxycycline , on steroids and nebulizer treatment as per pulmonary (4) Cardiac arrest Assessment & Plan: etiology ? cardiology eval to rule out cardiac sources and neurology eval to evaluate his brain condition and to rule out anoxic brain injury (5) Chronic hypercapnic respiratory failure Assessment & Plan: S/P cardiac arrest , S/P tracheostomy today after failing multiple weaning trials , pulmonary is following Subjective Subjective ROS Limited/Unobtainable: Yes Allergies: Coded Allergies: No Known Allergies (Unverified , 06/05/18) Subjective He was extubated , and had tracheostomy today , unresponsive to verbal commands , no fever or chills Objective Objective Vital Signs Last 24 Hour Vital Signs Date Time Temp Pulse Resp B/P (MAP) Pulse Ox O2 Delivery O2 Flow Rate FiO2 02/12/19 15:11 68 16 100 Mechanical Ventilator 30 63 16 30 02/12/19 15:00 18 Mechanical Ventilator 100 02/12/19 14:00 68 16 88/56 (67) 100 02/12/19 14:00 16 Mechanical Ventilator 100 02/12/19 13:02 71 16 Mechanical Ventilator 30 02/12/19 13:00 73 14 99/59 (72) 100 02/12/19 13:00 18 Mechanical Ventilator 100 02/12/19 12:00 Trach Collar 02/12/19 12:00 30 02/12/19 12:00 78 02/12/19 12:00 18 Mechanical Ventilator 100 02/12/19 12:00 84 16 Mechanical Ventilator 30 02/12/19 12:00 97.5 88 17 111/63 (79) 100 02/12/19 10:30 75 18 92/52 (65) 100 02/12/19 10:00 73 16 85/43 (57) 100 02/12/19 10:00 16 Mechanical Ventilator 100 02/12/19 09:50 59 16 100 Mechanical Ventilator 30 58 16 30 02/12/19 09:30 82 16 88/47 (61) 100 02/12/19 09:00 83 20 125/98 (107) 99 02/12/19 09:00 20 Mechanical Ventilator 02/12/19 08:30 67 17 93/67 (76) 100 02/12/19 08:00 Mechanical Ventilator 02/12/19 08:00 71 02/12/19 08:00 20 Mechanical Ventilator 100 02/12/19 08:00 30 02/12/19 08:00 98.1 65 17 88/51 (63) 100 02/12/19 07:26 58 16 100 Mechanical Ventilator 30 58 16 30 02/12/19 07:00 74 16 105/50 (68) 100 02/12/19 07:00 18 Mechanical Ventilator 30 02/12/19 06:30 61 16 103/60 (74) 100 02/12/19 06:00 18 Mechanical Ventilator 30 02/12/19 06:00 64 16 89/61 (70) 100 02/12/19 05:30 59 16 115/47 (69) 100 02/12/19 05:09 59 16 30 02/12/19 05:00 64 16 89/61 (70) 100 02/12/19 05:00 16 Mechanical Ventilator 30 02/12/19 04:30 58 16 112/62 (79) 100 02/12/19 04:00 30 02/12/19 04:00 18 Mechanical Ventilator 02/12/19 04:00 97.8 74 16 117/62 (80) 100 02/12/19 04:00 74 02/12/19 04:00 Mechanical Ventilator 02/12/19 03:30 56 16 115/66 (82) 100 02/12/19 03:21 19 30 02/12/19 03:04 54 16 100 Mechanical Ventilator 30 57 16 30 02/12/19 03:00 59 16 92/60 (71) 100 02/12/19 03:00 16 Mechanical Ventilator 30 02/12/19 02:30 53 16 93/48 (63) 100 02/12/19 02:00 59 19 104/63 (77) 94 02/12/19 02:00 18 Mechanical Ventilator 30 02/12/19 01:30 77 19 97/61 (73) 94 02/12/19 01:09 66 16 30 02/12/19 01:00 18 Mechanical Ventilator 30 02/12/19 01:00 61 16 100/40 (60) 100 02/12/19 00:30 57 16 91/40 (57) 100 02/12/19 00:00 30 02/12/19 00:00 Mechanical Ventilator 02/12/19 00:00 18 Mechanical Ventilator 30 02/12/19 00:00 61 02/12/19 00:00 97.6 61 16 98/40 (59) 100 02/11/19 23:30 62 16 97/40 (59) 100 02/11/19 23:00 72 16 86/47 (60) 100 02/11/19 23:00 18 Mechanical Ventilator 30 02/11/19 22:59 70 16 100 Mechanical Ventilator 30 70 16 30 02/11/19 22:30 72 16 87/63 (71) 100 02/11/19 22:00 17 Mechanical Ventilator 30 02/11/19 22:00 72 18 86/63 (71) 100 02/11/19 21:30 72 18 99/72 (81) 100 02/11/19 21:00 74 17 97/72 (80) 100 02/11/19 21:00 17 Mechanical Ventilator 30 02/11/19 20:43 78 16 30 02/11/19 20:30 77 16 122/78 (93) 100 02/11/19 20:00 98.0 78 17 83/61 (68) 100 02/11/19 20:00 17 Mechanical Ventilator 30 02/11/19 20:00 Mechanical Ventilator 02/11/19 20:00 30 02/11/19 20:00 78 02/11/19 19:15 18 Mechanical Ventilator 30 02/11/19 19:05 74 16 100 Mechanical Ventilator 30 66 16 30 30 02/11/19 19:00 66 16 102/67 (79) 100 02/11/19 19:00 18 Mechanical Ventilator 30 02/11/19 18:30 66 15 90/71 (77) 100 02/11/19 18:30 19 Mechanical Ventilator 30 02/11/19 18:00 19 Mechanical Ventilator 30 02/11/19 18:00 66 16 102/67 (79) 100 02/11/19 18:00 66 16 102/67 (79) 100 02/11/19 17:45 19 Mechanical Ventilator 30 02/11/19 17:45 73 15 113/73 (86) 100 02/11/19 17:30 77 17 108/70 (83) 100 02/11/19 17:30 17 Mechanical Ventilator 30 02/11/19 17:18 17 Mechanical Ventilator 30 02/11/19 17:02 89 17 100 Mechanical Ventilator 30 02/11/19 17:00 77 17 108/70 (83) 100 02/11/19 16:57 89 17 30 02/11/19 16:50 30 02/11/19 16:00 97.9 76 18 128/69 (88) 100 02/11/19 16:00 30 02/11/19 16:00 79 02/11/19 16:00 Bi-pap 02/11/19 15:20 81 15 100 Full Face 30 83 17 100 Bi-Pap Height (Feet): 5 Height (Inches): 10.00 Weight (Pounds): 160 General Appearance: no acute distress, cachetic HEENT: normocephalic, atraumatic, anicteric, mucous membranes moist, PERRL, EOMI, pharynx normal, supple, no JVD Respiratory/Chest: chest wall non-tender, lungs clear, normal breath sounds, no respiratory distress, no accessory muscle use Cardiovascular: normal peripheral pulses, normal rate, regular rhythm, no gallop/murmur, no JVD Abdomen: normal bowel sounds, soft, non tender, no organomegaly, non distended , no mass, no scars Extremities: no cyanosis, no clubbing Skin: no rash, no lesions, no ulcers Neurologic/Psychiatric: unresponsiveness Lymphatic: no neck adenopathy, no groin adenopathy Musculoskeletal: normal muscle bulk, no effusion Laboratory Tests Test 02/11/19 17:40 02/12/19 03:10 Arterial Blood pH 7.410 (7.350-7.450) Arterial Blood Partial Pressure CO2 61.5 mmHg (35.0-45.0) *H Arterial Blood Partial Pressure O2 60.8 mmHg (75.0-100.0) L Arterial Blood HCO3 38.1 mmol/L (22.0-26.0) H Arterial Blood Oxygen Saturation 89.6 % (95-100) *L Arterial Blood Base Excess 11.5 (-2-2) *H Delon Test Positive White Blood Count 15.4 K/UL (4.8-10.8) H Red Blood Count 2.95 M/UL (4.70-6.10) L Hemoglobin 8.9 G/DL (14.2-18.0) L Hematocrit 28.0 % (42.0-52.0) L Mean Corpuscular Volume 95 FL (80-99) Mean Corpuscular Hemoglobin 30.2 PG (27.0-31.0) Mean Corpuscular Hemoglobin Concent 31.8 G/DL (32.0-36.0) L Red Cell Distribution Width 15.1 % (11.6-14.8) H Platelet Count 102 K/UL (150-450) L Mean Platelet Volume 7.1 FL (6.5-10.1) Neutrophils (%) (Auto) % (45.0-75.0) Lymphocytes (%) (Auto) % (20.0-45.0) Monocytes (%) (Auto) % (1.0-10.0) Eosinophils (%) (Auto) % (0.0-3.0) Basophils (%) (Auto) % (0.0-2.0) Differential Total Cells Counted 100 Neutrophils % (Manual) 94 % (45-75) H Lymphocytes % (Manual) 2 % (20-45) L Monocytes % (Manual) 4 % (1-10) Eosinophils % (Manual) 0 % (0-3) Basophils % (Manual) 0 % (0-2) Band Neutrophils 0 % (0-8) Platelet Estimate Decreased L Platelet Morphology Normal Prothrombin Time 11.3 SEC (9.30-11.50) Prothromb Time International Ratio 1.1 (0.9-1.1) Activated Partial Thromboplast Time 28 SEC (23-33) Sodium Level 145 MMOL/L (136-145) Potassium Level 4.4 MMOL/L (3.5-5.1) Chloride Level 105 MMOL/L (98-107) Carbon Dioxide Level 39 MMOL/L (21-32) H Anion Gap 1 mmol/L (5-15) L Blood Urea Nitrogen 18 mg/dL (7-18) Creatinine 0.9 MG/DL (0.55-1.30) Estimat Glomerular Filtration Rate mL/min (>60) Glucose Level 144 MG/DL (74-106) H Calcium Level 8.3 MG/DL (8.5-10.1) L Phosphorus Level 3.0 MG/DL (2.5-4.9) Magnesium Level 1.8 MG/DL (1.8-2.4) Total Bilirubin 0.6 MG/DL (0.2-1.0) Aspartate Amino Transf (AST/SGOT) 23 U/L (15-37) Alanine Aminotransferase (ALT/SGPT) 41 U/L (12-78) Alkaline Phosphatase 62 U/L (46-116) Total Protein 4.6 G/DL (6.4-8.2) L Albumin 2.0 G/DL (3.4-5.0) L Globulin 2.6 g/dL Albumin/Globulin Ratio 0.8 (1.0-2.7) L Current Medications Medications (Trade) Dose Ordered Sig/Brittani Route PRN Reason Start Time Stop Time Status Last Admin Dose Admin Acetaminophen (Tylenol) 650 mg Q4H PRN NG FOR MILD PAIN 01/26/19 10:15 02/25/19 10:14 Acetylcysteine (Mucomyst) 100 mg Q4HRT [facility] 02/12/19 15:00 03/14/19 14:59 02/12/19 15:11 Albuterol/ Ipratropium (Albuterol/ Ipratropium) 3 ml Q4HRT [facility] 02/08/19 15:00 02/13/19 14:59 02/12/19 15:11 Apixaban (Eliquis) 5 mg BID NGT 02/11/19 20:00 03/13/19 19:59 02/11/19 20:34 Chlorhexidine Gluconate (Renetta-Hex 2%) 1 applic DAILY@1999 TOPIC 02/07/19 20:00 03/09/19 19:59 02/11/19 20:11 Dextrose (Dextrose 50%) 25 ml Q30M PRN IV Hypoglycemia 01/26/19 10:30 02/25/19 10:29 Dextrose (Dextrose 50%) 50 ml Q30M PRN IV Hypoglycemia 01/26/19 10:30 02/25/19 10:29 02/10/19 23:34 Docusate Sodium (Colace) 100 mg BID NG 02/02/19 18:00 03/04/19 17:59 02/10/19 10:21 Dopamine HCl/ Dextrose 250 ml @ 0 mls/hr Q24H IV 02/06/19 09:15 03/08/19 09:14 Fentanyl Citrate 1000 mcg/Sodium Chloride 100 ml @ 0 mls/hr Q24H IV 02/10/19 20:30 02/17/19 20:29 02/12/19 03:21 Haloperidol Lactate 0.5 mg/ Dextrose 55.1 ml @ 220.4 mls/ hr Q8H PRN IVPB Agitation 02/10/19 14:15 03/12/19 14:14 02/11/19 13:30 Hydralazine HCl (Apresoline) 25 mg Q6H PRN NG For High Blood Pressure 02/07/19 17:15 03/06/19 16:59 Hydromorphone HCl (Dilaudid) 0.5 mg Q4H PRN IVP For Pain 02/10/19 14:15 02/17/19 14:14 02/11/19 10:49 Insulin Aspart (NovoLOG) Q6HR SUBQ 02/11/19 13:00 03/13/19 12:59 02/11/19 13:02 Lorazepam (Ativan 2mg/ml 1ml) 0.5 mg Q2H PRN IV ANXIETY 02/11/19 16:30 02/18/19 16:29 02/12/19 09:11 Meropenem 2 gm/ Sodium Chloride 110 ml @ 220 mls/hr Q8HR IVPB 02/10/19 22:00 02/21/19 23:59 02/12/19 13:55 Methylprednisolone Sodium Succinate (Solu-MEDROL) 30 mg EVERY 12 HOURS IVP 02/10/19 21:00 03/12/19 20:59 02/12/19 08:22 Pantoprazole (Protonix) 40 mg Q12HR IVP 02/03/19 21:00 02/25/19 10:59 02/12/19 08:23 Polyethylene Glycol (Miralax) 17 gm BEDTIME NG 02/07/19 21:00 03/03/19 20:59 02/09/19 20:26 Vancomycin HCl (Vanco rx to dose) 1 ea DAILY PRN MISC Per rx protocol 02/06/19 20:00 03/08/19 19:59 Vancomycin HCl 750 mg/Sodium Chloride 275 ml @ 183.333 mls/hr Q8HR@0400,1200,1999 IVPB 02/08/19 20:00 02/17/19 23:59 02/12/19 12:37 [place] Orlando M.D., Isam M.D. Feb 14, 2019 07:40
--- NOTE | 2019-02-14 08:49 | NUR ---
RESPIRATORY NOTE: placed pt on CPAP PS8 as ordered. no resp distress at this time. RN notified and will cont to monitor.
[2019-02-14] MEDS: DOPamine 400mg/250ml 250 ML IV SCH (09:15)
[2019-02-14] MEDS: Docusate 100mg tablet NG SCH ×2 (09:23→17:10)
[2019-02-14] MEDS: Solu-MEDROL 40mg Inj IVP SCH (09:23)
[2019-02-14] MEDS: Pantoprazole Inj IVP SCH ×2 (09:23→20:48)
--- NOTE | 2019-02-14 10:09 | NUR ---
RD ASSESSMENT & RECOMMENDATIONS SEE CARE ACTIVITY FOR COMPLETE ASSESSMENT DAILY ESTIMATED NEEDS: Needs based on Critical care, 61kg 22-30 kcals/kg 4265-7286 total kcals 1.2-2 g protein/kg 73-122 g total protein 25-30 mL/kg 1470-7000 total fluid mLs NUTRITION DIAGNOSIS: * Swallowing difficulty R/T respiratory status as evidenced by pt s/p cardiac arrest, now s/p trach placement, remains on NGT feeds. (UPDATED) ENTERAL NUTRITION RECOMMENDATIONS: Glucerna 1.5 @45ml/hr x24 hrs to provide 1080ml, 1620 kcal, 89g pro, 820ml free H2O - Maintain GLUCERNA 1.5 FOR LOW VOLUME FEEDING. - Flush per MD, HOB over 30 degrees. ADDITIONAL RECOMMENDATIONS: * Pt day adm: rec to RECALIBRATE bed scale for accurate updated weight + Weekly weights * Monitor BGs closely while on steroidal meds * Lytes, daily, replete as needed * TF RECS ABOVE . .
--- NOTE | 2019-02-14 10:19 | Hematology/Onc Progress Note ---
Assessment/Plan Assessment/Plan # Right jugular vein DVT acute --> okay eliquis 5mg po bid --> h/h being monitored at this time --> rescan in 3 months # Thrombocytopenia is likely due to underlying infection/sepsis v dic, reactive process --> hiv is neg, hepatitis is neg as well --> us of the abd from prior 2018 --> plt rend 140-->115-->105-->133-->110k--> 118k-->100k-->95k-->109k-->96k--> 109k --> okay for ppx as long as above 75k --> meds have been reviewed # Anemia of chronic disease, due to multifactorial causes --> anemia panel reviewed from earlier in admission and c/w acd --> hgb goal is >7 --> no hemolysis is seen --> smear has been reviewed --> hgb trend 9.3-->11.1-->9.6--->9.9-->8.6-->8.5 # Leukocytosis/elevated white blood cell count, unspecified likely related to steroid meds --> have reviewed peripheral smear and bandemia/neutrophilia noted --> continue antibiotics if they have been started by ID team, zosyn --> monitor for resolution --> wbc trend 14-->18-->24.3-->17.3-->17-->12.6 # COPD exacerbation with asp pna --> has been given steriods --> per id for aspiration prec on zosyn --> rochelle/vanc # Hypercapneic respiratory failure -->s/p trach/vent # S/p cardiac arrest in the ED # CHF # HTN # Diabetes # DNR status # Dysphagia with NG++ Time of note does not correspond to when patient was seen. Greatly appreciate consultation. Subjective Allergies: Coded Allergies: No Known Allergies (Unverified , 06/05/18) Subjective 02/01: no events to report, plt is lower, weaning trial initiated with mack gray rn, hiv neg 02/04: icu, wbc elevated, on abx 02/05: remains on vent, fighting vent, on abx remains on lovenox, on steriods 02/06: icu, on vent, vs stable, no sob or respiratory distress 02/07: remains in the icu, intubated, ng tube, weaning trial today 02/08: icu, restless and agitated, extubation pending, wbc improved 02/10: no vent, remains in icu, seen by pulm, extubated today, on bipap 02/11: extubated, on rochelle/vanc, labs have been reviewed 02/13: on glucerna, ngt, dopamine gtt 02/14: extubated, tracheostomy today, no fever or chills, no signs of distress, on abx Objective Objective Current Medications Medications (Trade) Dose Ordered Sig/Brittani Route PRN Reason Start Time Stop Time Status Last Admin Dose Admin Acetaminophen (Tylenol) 650 mg Q4H PRN NG FOR MILD PAIN 01/26/19 10:15 02/25/19 10:14 02/12/19 15:31 Acetylcysteine (Mucomyst) 100 mg Q4HRT N 02/12/19 15:00 03/14/19 14:59 02/14/19 07:07 Albuterol/ Ipratropium (Albuterol/ Ipratropium) 3 ml Q4HRT N 02/13/19 15:00 02/18/19 14:59 02/14/19 07:07 Chlorhexidine Gluconate (Renetta-Hex 2%) 1 applic DAILY@2000 TOPIC 02/07/19 20:00 03/09/19 19:59 02/13/19 20:01 Dextrose (Dextrose 50%) 25 ml Q30M PRN IV Hypoglycemia 01/26/19 10:30 02/25/19 10:29 02/13/19 23:33 Dextrose (Dextrose 50%) 50 ml Q30M PRN IV Hypoglycemia 01/26/19 10:30 02/25/19 10:29 02/10/19 23:34 Docusate Sodium (Colace) 100 mg BID NG 02/02/19 18:00 03/04/19 17:59 02/14/19 09:23 Dopamine HCl/ Dextrose 250 ml @ 0 mls/hr Q24H IV 02/06/19 09:15 03/08/19 09:14 02/13/19 03:36 Fentanyl Citrate 1000 mcg/Sodium Chloride 100 ml @ 0 mls/hr Q24H IV 02/10/19 20:30 02/17/19 20:29 02/12/19 03:21 Haloperidol Lactate 0.5 mg/ Dextrose 55.1 ml @ 220.4 mls/ hr Q8H PRN IVPB Agitation 02/10/19 14:15 03/12/19 14:14 02/13/19 00:05 Hydralazine HCl (Apresoline) 25 mg Q6H PRN NG For High Blood Pressure 02/07/19 17:15 03/06/19 16:59 Hydromorphone HCl (Dilaudid) 0.5 mg Q4H PRN IVP For Pain 02/10/19 14:15 02/17/19 14:14 02/13/19 02:03 Insulin Aspart (NovoLOG) Q6HR SUBQ 02/11/19 13:00 03/13/19 12:59 02/11/19 13:02 Lorazepam (Ativan 2mg/ml 1ml) 0.5 mg Q2H PRN IV ANXIETY 02/11/19 16:30 02/18/19 16:29 02/14/19 03:40 Meropenem 2 gm/ Sodium Chloride 110 ml @ 220 mls/hr Q8HR IVPB 02/10/19 22:00 02/21/19 23:59 02/14/19 05:33 Methylprednisolone Sodium Succinate (Solu-MEDROL) 30 mg DAILY IVP 02/14/19 09:00 03/12/19 20:59 02/14/19 09:23 Pantoprazole (Protonix) 40 mg Q12HR IVP 02/03/19 21:00 02/25/19 10:59 02/14/19 09:23 Polyethylene Glycol (Miralax) 17 gm BEDTIME NG 02/07/19 21:00 03/03/19 20:59 02/13/19 20:52 Vancomycin HCl (Vanco rx to dose) 1 ea DAILY PRN MISC Per rx protocol 02/06/19 20:00 03/08/19 19:59 Vancomycin HCl 750 mg/Sodium Chloride 275 ml @ 183.333 mls/hr Q8HR@0400,1200,2000 IVPB 02/08/19 20:00 02/17/19 23:59 02/14/19 03:40 Last 24 Hour Vital Signs Date Time Temp Pulse Resp B/P (MAP) Pulse Ox O2 Delivery O2 Flow Rate FiO2 02/14/19 09:00 83 21 139/75 (96) 02/14/19 08:46 80 17 30 02/14/19 08:42 95 02/14/19 08:40 30 02/14/19 08:00 87 17 142/73 (96) 02/14/19 08:00 30 02/14/19 07:07 80 16 97 Mechanical Ventilator 30 80 16 30 02/14/19 07:00 78 16 154/73 (100) 95 02/14/19 06:00 98.5 85 17 130/83 (99) 100 02/14/19 05:30 84 16 146/99 (115) 100 02/14/19 05:00 89 15 133/78 (96) 100 02/14/19 04:59 84 18 30 02/14/19 04:00 97.8 84 18 130/72 (91) 96 02/14/19 04:00 Mechanical Ventilator 02/14/19 04:00 30 02/14/19 03:53 81 18 142/64 (90) 88 02/14/19 03:30 90 20 145/95 (112) 96 02/14/19 03:01 84 02/14/19 03:00 91 15 105/85 (92) 96 02/14/19 03:00 105/85 02/14/19 02:58 79 17 99 Mechanical Ventilator 30 89 16 30 02/14/19 02:30 80 15 123/109 (114) 81 02/14/19 02:00 87 17 120/88 (99) 96 02/14/19 02:00 120/88 02/14/19 01:30 86 17 138/103 (115) 82 02/14/19 01:16 87 16 30 02/14/19 01:00 85 17 116/70 (85) 93 02/14/19 01:00 116/70 02/14/19 00:30 85 19 126/60 (82) 99 02/14/19 00:07 97.8 89 18 113/94 (100) 99 02/14/19 00:00 30 02/14/19 00:00 Mechanical Ventilator 02/14/19 00:00 85 16 100 02/14/19 00:00 113/94 02/13/19 23:30 80 17 155/77 (103) 100 02/13/19 23:25 83 18 152/77 (102) 99 02/13/19 23:09 88 16 100 Mechanical Ventilator 30 91 16 30 02/13/19 23:03 88 02/13/19 23:00 74/35 02/13/19 23:00 83 12 74/35 (48) 96 02/13/19 22:30 82 16 104/60 (75) 96 02/13/19 22:00 92/58 02/13/19 22:00 80 9 92/58 (69) 100 02/13/19 21:30 81 17 117/61 (79) 93 02/13/19 21:21 81 17 30 02/13/19 21:00 85 18 116/63 (80) 95 02/13/19 21:00 116/63 02/13/19 20:30 89 17 126/81 (96) 98 02/13/19 20:30 18 Mechanical Ventilator 30 02/13/19 20:00 30 02/13/19 20:00 98.6 97 18 124/66 (85) 100 02/13/19 20:00 124/66 02/13/19 20:00 Mechanical Ventilator 02/13/19 19:30 96 13 108/91 (97) 100 02/13/19 19:24 95 02/13/19 19:00 96 17 114/85 (95) 100 02/13/19 19:00 114/85 02/13/19 18:59 91 18 100 Mechanical Ventilator 30 95 17 30 02/13/19 18:30 83 18 119/28 (58) 100 02/13/19 18:00 122/96 02/13/19 18:00 88 16 122/96 (105) 100 02/13/19 17:30 94 16 130/71 (90) 100 02/13/19 17:00 98 16 125/77 (93) 100 02/13/19 17:00 125/77 02/13/19 16:31 92 17 30 02/13/19 16:30 96 16 109/93 (98) 100 02/13/19 16:00 30 02/13/19 16:00 98.9 93 16 94/61 (72) 100 02/13/19 16:00 Mechanical Ventilator 02/13/19 16:00 94/61 02/13/19 16:00 93 02/13/19 15:30 92 16 120/87 (98) 100 02/13/19 15:28 90 16 100 Mechanical Ventilator 30 91 16 30 02/13/19 15:00 90 16 116/93 (101) 100 02/13/19 15:00 116/93 02/13/19 14:30 86 16 109/92 (98) 100 02/13/19 14:00 84 15 109/92 (98) 100 02/13/19 14:00 109/92 02/13/19 13:30 91 17 101/79 (86) 100 02/13/19 13:00 79 16 120/50 (73) 100 02/13/19 13:00 120/51 02/13/19 12:54 92 17 30 02/13/19 12:30 92 22 127/76 (93) 100 02/13/19 12:24 111/89 02/13/19 12:00 99.0 89 18 111/89 (96) 100 02/13/19 12:00 111/89 02/13/19 12:00 30 02/13/19 12:00 90 02/13/19 12:00 Mechanical Ventilator 02/13/19 11:30 90 18 126/71 (89) 100 02/13/19 11:00 88 16 100 Mechanical Ventilator 30 97 16 30 02/13/19 11:00 91 16 98/81 (87) 100 02/13/19 11:00 113/74 02/13/19 10:30 88 18 109/68 (82) 100 02/13/19 10:00 87 17 111/99 (103) 100 02/13/19 10:00 111/99 02/13/19 09:30 85 17 116/78 (91) 100 02/13/19 09:00 93 18 99/75 (83) 100 02/13/19 09:00 99/74 02/13/19 08:45 81 17 30 02/13/19 08:30 88 19 94/61 (72) 100 02/13/19 08:01 30 02/13/19 08:00 88 02/13/19 08:00 98.8 96 16 145/64 (91) 100 02/13/19 08:00 Mechanical Ventilator 02/13/19 08:00 94/78 02/13/19 07:30 96 18 73/47 (56) 100 02/13/19 07:17 92 16 100 Mechanical Ventilator 30 107 16 30 02/13/19 07:00 58/30 02/13/19 07:00 70 18 115/61 (79) 100 02/13/19 06:30 72 18 110/60 (77) 100 02/13/19 06:00 71 18 148/61 (90) 100 02/13/19 06:00 144/60 02/13/19 05:30 67 18 144/60 (88) 100 02/13/19 05:00 92 18 99/38 (58) 100 02/13/19 05:00 99/36 02/13/19 04:55 85 16 30 02/13/19 04:30 82 18 139/60 (86) 99 02/13/19 04:00 30 02/13/19 04:00 98.0 82 18 139/60 (86) 99 02/13/19 04:00 80 02/13/19 04:00 151/62 02/13/19 04:00 Mechanical Ventilator 02/13/19 03:36 90/60 02/13/19 03:30 85 18 151/62 (91) 99 02/13/19 03:08 58 16 100 Mechanical Ventilator 30 58 16 30 02/13/19 03:00 88 18 161/81 (107) 99 02/13/19 03:00 171/91 02/13/19 02:30 74 18 155/77 (103) 99 02/13/19 02:00 88 18 110/86 (94) 99 02/13/19 02:00 Mechanical Ventilator 02/13/19 02:00 110/76 02/13/19 01:30 81 16 150/64 (92) 99 02/13/19 01:04 65 16 30 02/13/19 01:00 16 Mechanical Ventilator 30 02/13/19 01:00 156/64 02/13/19 01:00 66 16 156/64 (94) 99 02/13/19 00:45 30 02/13/19 00:30 64 18 169/78 (108) 99 02/13/19 00:00 98.8 75 18 100/73 (82) 99 02/13/19 00:00 Mechanical Ventilator 02/13/19 00:00 18 Mechanical Ventilator 30 02/13/19 00:00 111/76 02/13/19 00:00 72 02/12/19 23:30 74 18 101/73 (82) 99 02/12/19 23:01 97 16 100 Mechanical Ventilator 30 97 16 30 02/12/19 23:00 74 18 124/77 (93) 100 02/12/19 23:00 20 Mechanical Ventilator 30 02/12/19 23:00 124/79 02/12/19 22:30 79 17 81/53 (62) 100 02/12/19 22:00 18 Mechanical Ventilator 30 02/12/19 22:00 81/53 02/12/19 22:00 80 17 99/69 (79) 99 02/12/19 21:30 77 17 91/76 (81) 99 02/12/19 21:00 77 17 88/71 (77) 99 02/12/19 21:00 86 17 30 02/12/19 21:00 16 Mechanical Ventilator 30 02/12/19 21:00 91/76 02/12/19 20:30 82 17 90/70 (77) 98 02/12/19 20:00 98.0 82 19 86/54 (65) 98 02/12/19 20:00 110 02/12/19 20:00 18 Mechanical Ventilator 30 02/12/19 20:00 88/71 02/12/19 20:00 Mechanical Ventilator 02/12/19 20:00 30 02/12/19 20:00 98.2 82 17 115/94 (101) 97 02/12/19 19:04 92 16 98 Mechanical Ventilator 30 92 16 30 02/12/19 19:00 101 19 86/54 (65) 98 02/12/19 19:00 100/64 02/12/19 18:00 96 15 75/50 (58) 100 02/12/19 18:00 75/50 02/12/19 17:59 97 16 67/46 (53) 100 02/12/19 17:45 88 14 155/99 (117) 99 02/12/19 17:30 89 17 155/75 (101) 100 02/12/19 17:30 89 17 155/75 (101) 100 02/12/19 17:30 58 16 Mechanical Ventilator 30 30 02/12/19 17:15 68 16 82/59 (67) 100 02/12/19 17:01 89/45 02/12/19 17:00 68 14 92/53 (66) 100 02/12/19 16:01 97.5 02/12/19 16:00 30 02/12/19 16:00 Trach Collar 02/12/19 16:00 70 02/12/19 16:00 16 Mechanical Ventilator 100 02/12/19 16:00 97.6 70 16 89/45 (60) 100 02/12/19 15:30 67 16 87/42 (57) 100 02/12/19 15:11 68 16 100 Mechanical Ventilator 30 63 16 30 02/12/19 15:00 18 Mechanical Ventilator 100 02/12/19 15:00 68 16 98/53 (68) 100 02/12/19 14:00 68 16 88/56 (67) 100 02/12/19 14:00 16 Mechanical Ventilator 100 02/12/19 13:02 71 16 Mechanical Ventilator 30 02/12/19 13:00 73 14 99/59 (72) 100 02/12/19 13:00 18 Mechanical Ventilator 100 02/12/19 12:00 Trach Collar 02/12/19 12:00 30 02/12/19 12:00 78 02/12/19 12:00 18 Mechanical Ventilator 100 02/12/19 12:00 84 16 Mechanical Ventilator 30 02/12/19 12:00 97.5 88 17 111/63 (79) 100 02/12/19 10:30 75 18 92/52 (65) 100 Intake and Output 02/13/19 02/14/19 19:00 07:00 Intake Total 673.737 ml 1254.486 ml Output Total 1865 ml 1660 ml Balance -1191.263 ml -405.514 ml Intake Free Water 50 ml IV Total 553.737 ml 794.486 ml Tube Feeding 60 ml 360 ml Other 10 ml 100 ml Output Urine Total 1865 ml 1660 ml # Bowel Movements 2 Labs Test 02/11/19 17:40 02/12/19 03:10 02/13/19 04:20 02/14/19 03:40 Arterial Blood pH 7.410 (7.350-7.450) Arterial Blood Partial Pressure CO2 61.5 mmHg (35.0-45.0) Arterial Blood Partial Pressure O2 60.8 mmHg (75.0-100.0) Arterial Blood HCO3 38.1 mmol/L (22.0-26.0) Arterial Blood Oxygen Saturation 89.6 % (95-100) Arterial Blood Base Excess 11.5 (-2-2) Delon Test Positive White Blood Count 15.4 K/UL (4.8-10.8) 14.7 K/UL (4.8-10.8) 12.6 K/UL (4.8-10.8) Red Blood Count 2.95 M/UL (4.70-6.10) 2.92 M/UL (4.70-6.10) 2.83 M/UL (4.70-6.10) Hemoglobin 8.9 G/DL (14.2-18.0) 8.7 G/DL (14.2-18.0) 8.5 G/DL (14.2-18.0) Hematocrit 28.0 % (42.0-52.0) 28.4 % (42.0-52.0) 27.1 % (42.0-52.0) Mean Corpuscular Volume 95 FL (80-99) 97 FL (80-99) 96 FL (80-99) Mean Corpuscular Hemoglobin 30.2 PG (27.0-31.0) 29.9 PG (27.0-31.0) 30.0 PG (27.0-31.0) Mean Corpuscular Hemoglobin Concent 31.8 G/DL (32.0-36.0) 30.8 G/DL (32.0-36.0) 31.4 G/DL (32.0-36.0) Red Cell Distribution Width 15.1 % (11.6-14.8) 15.1 % (11.6-14.8) 14.9 % (11.6-14.8) Platelet Count 102 K/UL (150-450) 96 K/UL (150-450) 109 K/UL (150-450) Mean Platelet Volume 7.1 FL (6.5-10.1) 6.5 FL (6.5-10.1) 6.8 FL (6.5-10.1) Neutrophils (%) (Auto) % (45.0-75.0) % (45.0-75.0) % (45.0-75.0) Lymphocytes (%) (Auto) % (20.0-45.0) % (20.0-45.0) % (20.0-45.0) Monocytes (%) (Auto) % (1.0-10.0) % (1.0-10.0) % (1.0-10.0) Eosinophils (%) (Auto) % (0.0-3.0) % (0.0-3.0) % (0.0-3.0) Basophils (%) (Auto) % (0.0-2.0) % (0.0-2.0) % (0.0-2.0) Differential Total Cells Counted 100 100 100 Neutrophils % (Manual) 94 % (45-75) 89 % (45-75) 94 % (45-75) Lymphocytes % (Manual) 2 % (20-45) 5 % (20-45) 4 % (20-45) Monocytes % (Manual) 4 % (1-10) 6 % (1-10) 2 % (1-10) Eosinophils % (Manual) 0 % (0-3) 0 % (0-3) 0 % (0-3) Basophils % (Manual) 0 % (0-2) 0 % (0-2) 0 % (0-2) Band Neutrophils 0 % (0-8) 0 % (0-8) 0 % (0-8) Platelet Estimate Decreased Decreased Decreased Platelet Morphology Normal Normal Normal Prothrombin Time 11.3 SEC (9.30-11.50) Prothromb Time International Ratio 1.1 (0.9-1.1) Activated Partial Thromboplast Time 28 SEC (23-33) Sodium Level 145 MMOL/L (136-145) 143 MMOL/L (136-145) Potassium Level 4.4 MMOL/L (3.5-5.1) 3.7 MMOL/L (3.5-5.1) Chloride Level 105 MMOL/L (98-107) 103 MMOL/L (98-107) Carbon Dioxide Level 39 MMOL/L (21-32) 39 MMOL/L (21-32) Anion Gap 1 mmol/L (5-15) 1 mmol/L (5-15) Blood Urea Nitrogen 18 mg/dL (7-18) 17 mg/dL (7-18) Creatinine 0.9 MG/DL (0.55-1.30) 0.8 MG/DL (0.55-1.30) Estimat Glomerular Filtration Rate mL/min (>60) mL/min (>60) Glucose Level 144 MG/DL (74-106) 84 MG/DL (74-106) Calcium Level 8.3 MG/DL (8.5-10.1) 8.6 MG/DL (8.5-10.1) Phosphorus Level 3.0 MG/DL (2.5-4.9) Magnesium Level 1.8 MG/DL (1.8-2.4) Total Bilirubin 0.6 MG/DL (0.2-1.0) Aspartate Amino Transf (AST/SGOT) 23 U/L (15-37) Alanine Aminotransferase (ALT/SGPT) 41 U/L (12-78) Alkaline Phosphatase 62 U/L (46-116) Total Protein 4.6 G/DL (6.4-8.2) Albumin 2.0 G/DL (3.4-5.0) Globulin 2.6 g/dL Albumin/Globulin Ratio 0.8 (1.0-2.7) Hypochromasia 2+ Anisocytosis 1+ Test 02/14/19 09:40 Arterial Blood pH 7.452 (7.350-7.450) Arterial Blood Partial Pressure CO2 57.5 mmHg (35.0-45.0) Arterial Blood Partial Pressure O2 69.9 mmHg (75.0-100.0) Arterial Blood HCO3 39.2 mmol/L (22.0-26.0) Arterial Blood Oxygen Saturation 93.7 % (95-100) Arterial Blood Base Excess 13.7 (-2-2) Delon Test Positive Height (Feet): 5 Height (Inches): 10.00 Weight (Pounds): 168 Objective General: no bleeding or chills Head: normocephalic, atraumatic Neck: supple ++ NG Respiratory: generally reduced bs, o++ trach Cardiovascular: tachycardia, HS1, HS2, RRR Gastrointestinal: non tender, soft Musculoskeletal: normal inspection Neurologic: sedated on ventilator Skin: no rash, palpation normal Conrado Morel MD Feb 14, 2019 10:19
--- NOTE | 2019-02-14 10:28 | NUR ---
NURSE NOTES: PATIENT TOLERATING CPAP ON PS 8. ABG WAS DONE AND INFORMED DR PEÑA OF THE RESULT. SEEN AND EXAMINED BY DR TYSON. WILL CONTINUE TO MONITOR.
--- NOTE | 2019-02-14 10:36 | NUR ---
NURSE NOTES: DR PEÑA GAVE NEW ORDERS. INFORMED RT TO KEEP PATIENT ON CPAP TOLERATED AND BACK ON AC AT 1999. NO SIGNS OF DISTRESS OF THE MOMENT. WILL CONTINUE TO MONITOR.
--- NOTE | 2019-02-14 11:21 | NUR ---
RESPIRATORY NOTE: pt tolerating CPAP well. will cont to keep on PS until pt tires out. will follow current orders and cont to monitor.
--- NOTE | 2019-02-14 11:53 | NUR ---
DISCHARGE PLANNING: NOTE PATIENT FAXED TO [facility] ON [address]
--- NOTE | 2019-02-14 12:00 | NUR ---
NURSE NOTES: SEEN AND EXAMINED BY DR PEÑA. OK TO RESUME FEEDING. KEEP ON CPAP TOLERATED. WILL CONTINUE TO MONITOR.
--- NOTE | 2019-02-14 12:20 | Nephrology Progress Note ---
Assessment/Plan Problem List: (1) Cardiac arrest (2) Prerenal azotemia (3) Hypernatremia (4) Hypoalbuminemia (5) HTN (hypertension) Assessment Pre renal Azotemia due to - Dehydration- - High Protein catabolic state as result of Doxy and steroids HyperNatremia due to free water deficit HypoAlbuminemia Plan Sugg: Due PEG in am Tracheostomy 02/12 keep bp in check stop D5W IV fluid Avoid Nephrotoxics Monitor lytes per consultants Subjective ROS Limited/Unobtainable: Yes Objective Objective Last 24 Hour Vital Signs Date Time Temp Pulse Resp B/P (MAP) Pulse Ox O2 Delivery O2 Flow Rate FiO2 02/14/19 11:19 83 17 96 Mechanical Ventilator 30 87 20 30 02/14/19 11:00 85 19 142/59 (86) 02/14/19 10:00 73 20 139/75 (96) 97 02/14/19 09:15 139/75 02/14/19 09:00 83 21 139/75 (96) 02/14/19 08:46 80 17 30 02/14/19 08:42 95 02/14/19 08:40 30 02/14/19 08:00 87 17 142/73 (96) 02/14/19 08:00 77 02/14/19 08:00 Mechanical Ventilator 02/14/19 08:00 30 02/14/19 07:07 80 16 97 Mechanical Ventilator 30 80 16 30 02/14/19 07:00 78 16 154/73 (100) 95 02/14/19 06:00 98.5 85 17 130/83 (99) 100 02/14/19 05:30 84 16 146/99 (115) 100 02/14/19 05:00 89 15 133/78 (96) 100 02/14/19 04:59 84 18 30 02/14/19 04:00 97.8 84 18 130/72 (91) 96 02/14/19 04:00 Mechanical Ventilator 02/14/19 04:00 30 02/14/19 03:53 81 18 142/64 (90) 88 02/14/19 03:30 90 20 145/95 (112) 96 02/14/19 03:01 84 02/14/19 03:00 91 15 105/85 (92) 96 02/14/19 03:00 105/85 02/14/19 02:58 79 17 99 Mechanical Ventilator 30 89 16 30 02/14/19 02:30 80 15 123/109 (114) 81 02/14/19 02:00 87 17 120/88 (99) 96 02/14/19 02:00 120/88 02/14/19 01:30 86 17 138/103 (115) 82 02/14/19 01:16 87 16 30 02/14/19 01:00 85 17 116/70 (85) 93 02/14/19 01:00 116/70 02/14/19 00:30 85 19 126/60 (82) 99 02/14/19 00:07 97.8 89 18 113/94 (100) 99 02/14/19 00:00 30 02/14/19 00:00 Mechanical Ventilator 02/14/19 00:00 85 16 100 02/14/19 00:00 113/94 02/13/19 23:30 80 17 155/77 (103) 100 02/13/19 23:25 83 18 152/77 (102) 99 02/13/19 23:09 88 16 100 Mechanical Ventilator 30 91 16 30 02/13/19 23:03 88 02/13/19 23:00 74/35 02/13/19 23:00 83 12 74/35 (48) 96 02/13/19 22:30 82 16 104/60 (75) 96 02/13/19 22:00 92/58 02/13/19 22:00 80 9 92/58 (69) 100 02/13/19 21:30 81 17 117/61 (79) 93 02/13/19 21:21 81 17 30 02/13/19 21:00 85 18 116/63 (80) 95 02/13/19 21:00 116/63 02/13/19 20:30 89 17 126/81 (96) 98 02/13/19 20:30 18 Mechanical Ventilator 30 02/13/19 20:00 30 02/13/19 20:00 98.6 97 18 124/66 (85) 100 02/13/19 20:00 124/66 02/13/19 20:00 Mechanical Ventilator 02/13/19 19:30 96 13 108/91 (97) 100 02/13/19 19:24 95 02/13/19 19:00 96 17 114/85 (95) 100 02/13/19 19:00 114/85 02/13/19 18:59 91 18 100 Mechanical Ventilator 30 95 17 30 02/13/19 18:30 83 18 119/28 (58) 100 02/13/19 18:00 122/96 02/13/19 18:00 88 16 122/96 (105) 100 02/13/19 17:30 94 16 130/71 (90) 100 02/13/19 17:00 98 16 125/77 (93) 100 02/13/19 17:00 125/77 02/13/19 16:31 92 17 30 02/13/19 16:30 96 16 109/93 (98) 100 02/13/19 16:00 30 02/13/19 16:00 98.9 93 16 94/61 (72) 100 02/13/19 16:00 Mechanical Ventilator 02/13/19 16:00 94/61 02/13/19 16:00 93 02/13/19 15:30 92 16 120/87 (98) 100 02/13/19 15:28 90 16 100 Mechanical Ventilator 30 91 16 30 02/13/19 15:00 90 16 116/93 (101) 100 02/13/19 15:00 116/93 02/13/19 14:30 86 16 109/92 (98) 100 02/13/19 14:00 84 15 109/92 (98) 100 02/13/19 14:00 109/92 02/13/19 13:30 91 17 101/79 (86) 100 02/13/19 13:00 79 16 120/50 (73) 100 02/13/19 13:00 120/51 02/13/19 12:54 92 17 30 02/13/19 12:30 92 22 127/76 (93) 100 02/13/19 12:24 111/89 Intake and Output 02/13/19 02/14/19 19:00 07:00 Intake Total 673.737 ml 1254.486 ml Output Total 1865 ml 1660 ml Balance -1191.263 ml -405.514 ml Intake Free Water 50 ml IV Total 553.737 ml 794.486 ml Tube Feeding 60 ml 360 ml Other 10 ml 100 ml Output Urine Total 1865 ml 1660 ml # Bowel Movements 2 Laboratory Tests 02/14/19 03:40: White Blood Count 12.6H, Red Blood Count 2.83L, Hemoglobin 8.5L, Hematocrit 27.1L, Mean Corpuscular Volume 96, Mean Corpuscular Hemoglobin 30.0, Mean Corpuscular Hemoglobin Concent 31.4L, Red Cell Distribution Width 14.9H, Platelet Count 109L, Mean Platelet Volume 6.8, Neutrophils (%) (Auto) , Lymphocytes (%) (Auto) , Monocytes (%) (Auto) , Eosinophils (%) (Auto) , Basophils (%) (Auto) , Differential Total Cells Counted 100, Neutrophils % ( Manual) 94H, Lymphocytes % (Manual) 4L, Monocytes % (Manual) 2, Eosinophils % ( Manual) 0, Basophils % (Manual) 0, Band Neutrophils 0, Platelet Estimate DecreasedL, Platelet Morphology Normal, Hypochromasia 2+, Anisocytosis 1+, Sodium Level 143, Potassium Level 3.7, Chloride Level 103, Carbon Dioxide Level 39H, Anion Gap 1L, Blood Urea Nitrogen 17, Creatinine 0.8, Estimat Glomerular Filtration Rate , Glucose Level 84, Calcium Level 8.6 02/14/19 09:40: Arterial Blood pH 7.452H, Arterial Blood Partial Pressure CO2 57.5*H, Arterial Blood Partial Pressure O2 69.9L, Arterial Blood HCO3 39.2H, Arterial Blood Oxygen Saturation 93.7L, Arterial Blood Base Excess 13.7*H, Delon Test Positive Height (Feet): 5 Height (Inches): 10.00 Weight (Pounds): 168 General Appearance: no apparent distress EENT: other - Trach Cardiovascular: normal rate Respiratory/Chest: decreased breath sounds Abdomen: distended, other Objective no change Felipe Salmon MD Feb 14, 2019 12:20
--- NOTE | 2019-02-14 12:37 | Surgery Progress Note ---
Surgery Progress Note Subjective Procedure Performed tracheostomy bronchoscopy Additional Comments no bleeding around trach today since elaquis stopped doing well wean vent comfortable labs noted Objective Last 24 Hour Vital Signs Date Time Temp Pulse Resp B/P (MAP) Pulse Ox O2 Delivery O2 Flow Rate FiO2 02/14/19 11:19 83 17 96 Mechanical Ventilator 30 87 20 30 02/14/19 11:00 85 19 142/59 (86) 02/14/19 10:00 73 20 139/75 (96) 97 02/14/19 09:15 139/75 02/14/19 09:00 83 21 139/75 (96) 02/14/19 08:46 80 17 30 02/14/19 08:42 95 02/14/19 08:40 30 02/14/19 08:00 87 17 142/73 (96) 02/14/19 08:00 77 02/14/19 08:00 Mechanical Ventilator 02/14/19 08:00 30 02/14/19 07:07 80 16 97 Mechanical Ventilator 30 80 16 30 02/14/19 07:00 78 16 154/73 (100) 95 02/14/19 06:00 98.5 85 17 130/83 (99) 100 02/14/19 05:30 84 16 146/99 (115) 100 02/14/19 05:00 89 15 133/78 (96) 100 02/14/19 04:59 84 18 30 02/14/19 04:00 97.8 84 18 130/72 (91) 96 02/14/19 04:00 Mechanical Ventilator 02/14/19 04:00 30 02/14/19 03:53 81 18 142/64 (90) 88 02/14/19 03:30 90 20 145/95 (112) 96 02/14/19 03:01 84 02/14/19 03:00 91 15 105/85 (92) 96 02/14/19 03:00 105/85 02/14/19 02:58 79 17 99 Mechanical Ventilator 30 89 16 30 02/14/19 02:30 80 15 123/109 (114) 81 02/14/19 02:00 87 17 120/88 (99) 96 02/14/19 02:00 120/88 02/14/19 01:30 86 17 138/103 (115) 82 02/14/19 01:16 87 16 30 02/14/19 01:00 85 17 116/70 (85) 93 02/14/19 01:00 116/70 02/14/19 00:30 85 19 126/60 (82) 99 02/14/19 00:07 97.8 89 18 113/94 (100) 99 02/14/19 00:00 30 02/14/19 00:00 Mechanical Ventilator 02/14/19 00:00 85 16 100 02/14/19 00:00 113/94 02/13/19 23:30 80 17 155/77 (103) 100 02/13/19 23:25 83 18 152/77 (102) 99 02/13/19 23:09 88 16 100 Mechanical Ventilator 30 91 16 30 02/13/19 23:03 88 02/13/19 23:00 74/35 02/13/19 23:00 83 12 74/35 (48) 96 02/13/19 22:30 82 16 104/60 (75) 96 02/13/19 22:00 92/58 02/13/19 22:00 80 9 92/58 (69) 100 02/13/19 21:30 81 17 117/61 (79) 93 02/13/19 21:21 81 17 30 02/13/19 21:00 85 18 116/63 (80) 95 02/13/19 21:00 116/63 02/13/19 20:30 89 17 126/81 (96) 98 02/13/19 20:30 18 Mechanical Ventilator 30 02/13/19 20:00 30 02/13/19 20:00 98.6 97 18 124/66 (85) 100 02/13/19 20:00 124/66 02/13/19 20:00 Mechanical Ventilator 02/13/19 19:30 96 13 108/91 (97) 100 02/13/19 19:24 95 02/13/19 19:00 96 17 114/85 (95) 100 02/13/19 19:00 114/85 02/13/19 18:59 91 18 100 Mechanical Ventilator 30 95 17 30 02/13/19 18:30 83 18 119/28 (58) 100 02/13/19 18:00 122/96 02/13/19 18:00 88 16 122/96 (105) 100 02/13/19 17:30 94 16 130/71 (90) 100 02/13/19 17:00 98 16 125/77 (93) 100 02/13/19 17:00 125/77 02/13/19 16:31 92 17 30 02/13/19 16:30 96 16 109/93 (98) 100 02/13/19 16:00 30 02/13/19 16:00 98.9 93 16 94/61 (72) 100 02/13/19 16:00 Mechanical Ventilator 02/13/19 16:00 94/61 02/13/19 16:00 93 02/13/19 15:30 92 16 120/87 (98) 100 02/13/19 15:28 90 16 100 Mechanical Ventilator 30 91 16 30 02/13/19 15:00 90 16 116/93 (101) 100 02/13/19 15:00 116/93 02/13/19 14:30 86 16 109/92 (98) 100 02/13/19 14:00 84 15 109/92 (98) 100 02/13/19 14:00 109/92 02/13/19 13:30 91 17 101/79 (86) 100 02/13/19 13:00 79 16 120/50 (73) 100 02/13/19 13:00 120/51 02/13/19 12:54 92 17 30 I&O Intake and Output 02/13/19 02/14/19 19:00 07:00 Intake Total 673.737 ml 1254.486 ml Output Total 1865 ml 1660 ml Balance -1191.263 ml -405.514 ml Intake Free Water 50 ml IV Total 553.737 ml 794.486 ml Tube Feeding 60 ml 360 ml Other 10 ml 100 ml Output Urine Total 1865 ml 1660 ml # Bowel Movements 2 Dressing: dry Wound: clean Cardiovascular: RSR Respiratory: clear Abdomen: soft, flat, non-tender, present bowel sounds Extremities: no tenderness, no cyanosis Laboratory Tests Test 02/14/19 03:40 02/14/19 09:40 White Blood Count 12.6 K/UL (4.8-10.8) H Red Blood Count 2.83 M/UL (4.70-6.10) L Hemoglobin 8.5 G/DL (14.2-18.0) L Hematocrit 27.1 % (42.0-52.0) L Mean Corpuscular Volume 96 FL (80-99) Mean Corpuscular Hemoglobin 30.0 PG (27.0-31.0) Mean Corpuscular Hemoglobin Concent 31.4 G/DL (32.0-36.0) L Red Cell Distribution Width 14.9 % (11.6-14.8) H Platelet Count 109 K/UL (150-450) L Mean Platelet Volume 6.8 FL (6.5-10.1) Neutrophils (%) (Auto) % (45.0-75.0) Lymphocytes (%) (Auto) % (20.0-45.0) Monocytes (%) (Auto) % (1.0-10.0) Eosinophils (%) (Auto) % (0.0-3.0) Basophils (%) (Auto) % (0.0-2.0) Differential Total Cells Counted 100 Neutrophils % (Manual) 94 % (45-75) H Lymphocytes % (Manual) 4 % (20-45) L Monocytes % (Manual) 2 % (1-10) Eosinophils % (Manual) 0 % (0-3) Basophils % (Manual) 0 % (0-2) Band Neutrophils 0 % (0-8) Platelet Estimate Decreased L Platelet Morphology Normal Hypochromasia 2+ Anisocytosis 1+ Sodium Level 143 MMOL/L (136-145) Potassium Level 3.7 MMOL/L (3.5-5.1) Chloride Level 103 MMOL/L (98-107) Carbon Dioxide Level 39 MMOL/L (21-32) H Anion Gap 1 mmol/L (5-15) L Blood Urea Nitrogen 17 mg/dL (7-18) Creatinine 0.8 MG/DL (0.55-1.30) Estimat Glomerular Filtration Rate mL/min (>60) Glucose Level 84 MG/DL (74-106) Calcium Level 8.6 MG/DL (8.5-10.1) Arterial Blood pH 7.452 (7.350-7.450) Arterial Blood Partial Pressure CO2 57.5 mmHg (35.0-45.0) *H Arterial Blood Partial Pressure O2 69.9 mmHg (75.0-100.0) L Arterial Blood HCO3 39.2 mmol/L (22.0-26.0) H Arterial Blood Oxygen Saturation 93.7 % (95-100) L Arterial Blood Base Excess 13.7 (-2-2) *H Delon Test Positive Plan Problems: (1) Respiratory distress Assessment & Plan: 73-year-old male with acute respiratory decompensation requiring intubation and intensive care unit evaluation was on vent support. Patient was recently extubated but unfortunately is not tolerating expiration very well as he requires BiPAP persistently and if taken off desaturates. Given these findings tracheostomy is potentially indicated and agree with pulmonology team and medical team that patient may benefit from tracheostomy to allow for recovery. Will obtain consent from the patient's family and patient for tracheostomy placement in hopes to have patient able to be weaned rather than reintubated. Thank you for allowing me to participate patient's care will continue with recommendations s/p trach recovering wean vent as tolerated okay to start lovenox today plan to start elaquis in 1-2 days will follow thank you Kris Blake Feb 14, 2019 12:37
--- NOTE | 2019-02-14 12:52 | General Progress Note ---
Assessment/Plan Status: stable Assessment/Plan: s: Post extubation on BIPAP O: Awake , sleepy , following the command, PHYSICAL EXAMINATION: GENERAL: An elderly male, lying in bed, not in acute distress. HEENT: Normocephalic and atraumatic. Pupils slightly responsive to light. Unable to assess oral mucosa NECK: Trach in place , Supple. No lymphadenopathy.CARDIOVASCULAR: He is tachycardic. S1, S2 normal. No murmur can be heard. LUNGS: Diminished breathing sounds at the bases. No wheezing or rhonchi. Normal breathing effort. ABDOMEN: Soft, nontender, and nondistended. Normal bowel sounds. No hepatosplenomegaly or ascites. No organomegaly.EXTREMITIES: No edema or cyanosis. labs: dated Feb 14 reviewed Meds: reviewed and reconciled ASSESSMENT AND PLAN: 1. Trach dependent respiratory failure. post extubation , On vent assisted Trach setting 2. Sepsis- Gram negative HCA PNA. Stable 3. Chronic obstructive pulmonary disease, end-stage, oxygen-dependent. 3. Cardiopulmonary arrest, status post resuscitation x2. 4. Hypertension. 5. Abnormal blood sugar. 6. Anemia. 7. Abn Trop: likely secondary to #3 7. GI and DVT prophylaxis. 8. Dysphegia PLAN OF CARE: NOtes from pulmonary and Cardiology reviewed Defer anticoagulation to surgeon and Hem Ok to proceed with PEG Subjective Allergies: Coded Allergies: No Known Allergies (Unverified , 06/05/18) Objective Last 24 Hour Vital Signs Date Time Temp Pulse Resp B/P (MAP) Pulse Ox O2 Delivery O2 Flow Rate FiO2 02/14/19 11:19 83 17 96 Mechanical Ventilator 30 87 20 30 02/14/19 11:00 85 19 142/59 (86) 02/14/19 10:00 73 20 139/75 (96) 97 02/14/19 09:15 139/75 02/14/19 09:00 83 21 139/75 (96) 02/14/19 08:46 80 17 30 02/14/19 08:42 95 02/14/19 08:40 30 02/14/19 08:00 87 17 142/73 (96) 02/14/19 08:00 77 02/14/19 08:00 Mechanical Ventilator 02/14/19 08:00 30 02/14/19 07:07 80 16 97 Mechanical Ventilator 30 80 16 30 02/14/19 07:00 78 16 154/73 (100) 95 02/14/19 06:00 98.5 85 17 130/83 (99) 100 02/14/19 05:30 84 16 146/99 (115) 100 02/14/19 05:00 89 15 133/78 (96) 100 02/14/19 04:59 84 18 30 02/14/19 04:00 97.8 84 18 130/72 (91) 96 02/14/19 04:00 Mechanical Ventilator 02/14/19 04:00 30 02/14/19 03:53 81 18 142/64 (90) 88 02/14/19 03:30 90 20 145/95 (112) 96 02/14/19 03:01 84 02/14/19 03:00 91 15 105/85 (92) 96 02/14/19 03:00 105/85 02/14/19 02:58 79 17 99 Mechanical Ventilator 30 89 16 30 02/14/19 02:30 80 15 123/109 (114) 81 02/14/19 02:00 87 17 120/88 (99) 96 02/14/19 02:00 120/88 02/14/19 01:30 86 17 138/103 (115) 82 02/14/19 01:16 87 16 30 02/14/19 01:00 85 17 116/70 (85) 93 02/14/19 01:00 116/70 02/14/19 00:30 85 19 126/60 (82) 99 02/14/19 00:07 97.8 89 18 113/94 (100) 99 02/14/19 00:00 30 02/14/19 00:00 Mechanical Ventilator 02/14/19 00:00 85 16 100 02/14/19 00:00 113/94 02/13/19 23:30 80 17 155/77 (103) 100 02/13/19 23:25 83 18 152/77 (102) 99 02/13/19 23:09 88 16 100 Mechanical Ventilator 30 91 16 30 02/13/19 23:03 88 02/13/19 23:00 74/35 02/13/19 23:00 83 12 74/35 (48) 96 02/13/19 22:30 82 16 104/60 (75) 96 02/13/19 22:00 92/58 02/13/19 22:00 80 9 92/58 (69) 100 02/13/19 21:30 81 17 117/61 (79) 93 02/13/19 21:21 81 17 30 02/13/19 21:00 85 18 116/63 (80) 95 02/13/19 21:00 116/63 02/13/19 20:30 89 17 126/81 (96) 98 02/13/19 20:30 18 Mechanical Ventilator 30 02/13/19 20:00 30 02/13/19 20:00 98.6 97 18 124/66 (85) 100 02/13/19 20:00 124/66 02/13/19 20:00 Mechanical Ventilator 02/13/19 19:30 96 13 108/91 (97) 100 02/13/19 19:24 95 02/13/19 19:00 96 17 114/85 (95) 100 02/13/19 19:00 114/85 02/13/19 18:59 91 18 100 Mechanical Ventilator 30 95 17 30 02/13/19 18:30 83 18 119/28 (58) 100 02/13/19 18:00 122/96 02/13/19 18:00 88 16 122/96 (105) 100 02/13/19 17:30 94 16 130/71 (90) 100 02/13/19 17:00 98 16 125/77 (93) 100 02/13/19 17:00 125/77 02/13/19 16:31 92 17 30 02/13/19 16:30 96 16 109/93 (98) 100 02/13/19 16:00 30 02/13/19 16:00 98.9 93 16 94/61 (72) 100 02/13/19 16:00 Mechanical Ventilator 02/13/19 16:00 94/61 02/13/19 16:00 93 02/13/19 15:30 92 16 120/87 (98) 100 02/13/19 15:28 90 16 100 Mechanical Ventilator 30 91 16 30 02/13/19 15:00 90 16 116/93 (101) 100 02/13/19 15:00 116/93 02/13/19 14:30 86 16 109/92 (98) 100 02/13/19 14:00 84 15 109/92 (98) 100 02/13/19 14:00 109/92 8/28/19 13:30 91 17 101/79 (86) 100 02/13/19 13:00 79 16 120/50 (73) 100 02/13/19 13:00 120/51 02/13/19 12:54 92 17 30 Intake and Output 02/13/19 02/14/19 19:00 07:00 Intake Total 673.737 ml 1254.486 ml Output Total 1865 ml 1660 ml Balance -1191.263 ml -405.514 ml Intake Free Water 50 ml IV Total 553.737 ml 794.486 ml Tube Feeding 60 ml 360 ml Other 10 ml 100 ml Output Urine Total 1865 ml 1660 ml # Bowel Movements 2 Laboratory Tests 02/14/19 03:40: White Blood Count 12.6H, Red Blood Count 2.83L, Hemoglobin 8.5L, Hematocrit 27.1L, Mean Corpuscular Volume 96, Mean Corpuscular Hemoglobin 30.0, Mean Corpuscular Hemoglobin Concent 31.4L, Red Cell Distribution Width 14.9H, Platelet Count 109L, Mean Platelet Volume 6.8, Neutrophils (%) (Auto) , Lymphocytes (%) (Auto) , Monocytes (%) (Auto) , Eosinophils (%) (Auto) , Basophils (%) (Auto) , Differential Total Cells Counted 100, Neutrophils % ( Manual) 94H, Lymphocytes % (Manual) 4L, Monocytes % (Manual) 2, Eosinophils % ( Manual) 0, Basophils % (Manual) 0, Band Neutrophils 0, Platelet Estimate DecreasedL, Platelet Morphology Normal, Hypochromasia 2+, Anisocytosis 1+, Sodium Level 143, Potassium Level 3.7, Chloride Level 103, Carbon Dioxide Level 39H, Anion Gap 1L, Blood Urea Nitrogen 17, Creatinine 0.8, Estimat Glomerular Filtration Rate , Glucose Level 84, Calcium Level 8.6 02/14/19 09:40: Arterial Blood pH 7.452H, Arterial Blood Partial Pressure CO2 57.5*H, Arterial Blood Partial Pressure O2 69.9L, Arterial Blood HCO3 39.2H, Arterial Blood Oxygen Saturation 93.7L, Arterial Blood Base Excess 13.7*H, Delon Test Positive Height (Feet): 5 Height (Inches): 10.00 Weight (Pounds): 168 Brianne Henry MD Feb 14, 2019 12:52
[2019-02-14] MEDS ORDERED: Eliquis 5mg tablet ORAL SCH (13:00)
--- NOTE | 2019-02-14 13:44 | GI Initial Consult Note ---
History of Present Illness General Date patient seen: Feb 14, 2019 Time patient seen: 13:39 Reason for Hospitalization: Dyspnea/Respdistress Referring physician: EBONI Reason for Consultation: PEG Present Illness HPI Patient presents with acute shortness of breath Paramedics report previous history of COPD patient is brought in from home Patient's history is limited as the patient is in extreme respiratory distress Not able to provide full specifics there was no obvious reports of vomiting or diarrhea Unknown regarding fever on review of medical records patient was here recently with similar presentation and has had several visits with fairly severe distress and COPD GI consulted for PEG. ROS limited, patient seen alert no apparent distress. Patient was a recent recently extubated but did not tolerate expiration requiring constant BiPAP. Patient is now status post tracheostomy and bronchoscopy POD #1. NGT noted. Home Meds Reported Medications Multivitamins* (MULTIVITAMINS*) 1 Each Tablet, 1 TAB ORAL DAILY, TAB 0 Refills 01/27/19 [Super Beta Prostate] No Conflict Check, 1 TAB PO EVERY OTHER DAY for PROSTATE 01/27/19 Albuterol Sulfate* (ALBUTEROL SULFATE MDI*) 8.5 Gm Hfa.aer.ad, 2 PUFF INH Q4H PRN for Shortness of Breath, #1 INH 0 Refills 01/27/19 Albuterol Sulfate* (ALBUTEROL SULFATE HHN*) 2.5 Mg/3 Ml Vial.neb, 3 ML INH Q4H PRN for Shortness of Breath 11/30/18 Med list reviewed/reconciled: Yes Allergies: Coded Allergies: No Known Allergies (Unverified , 06/05/18) Patient History Limited by: medical condition History Provided By: Medical Record PMH Narrative Limited by: medical condition Reviewed Nursing Documentation: PMH: Agreed; PSxH: Agreed Nursing Documentation-PMH Hx Cardiac Problems: Yes - CHF Hx Hypertension: Yes Hx Asthma: Yes Hx COPD: Yes Hx Diabetes: Yes Hx Cancer: No Hx Gastrointestinal Problems: No Hx Neurological Problems: No Review of Systems All Other Systems: limited Physical Exam Vital Signs Date Time Temp Pulse Resp B/P (MAP) Pulse Ox O2 Delivery O2 Flow Rate FiO2 02/10/19 07:00 59 16 102/59 (73) 100 02/10/19 07:15 Mechanical Ventilator 30 02/10/19 08:00 97.8 Sp02 EP Interpretation: reviewed Labs Laboratory Tests Test 02/14/19 03:40 02/14/19 09:40 02/14/19 12:49 White Blood Count 12.6 K/UL (4.8-10.8) H Red Blood Count 2.83 M/UL (4.70-6.10) L Hemoglobin 8.5 G/DL (14.2-18.0) L Hematocrit 27.1 % (42.0-52.0) L Mean Corpuscular Volume 96 FL (80-99) Mean Corpuscular Hemoglobin 30.0 PG (27.0-31.0) Mean Corpuscular Hemoglobin Concent 31.4 G/DL (32.0-36.0) L Red Cell Distribution Width 14.9 % (11.6-14.8) H Platelet Count 109 K/UL (150-450) L Mean Platelet Volume 6.8 FL (6.5-10.1) Neutrophils (%) (Auto) % (45.0-75.0) Lymphocytes (%) (Auto) % (20.0-45.0) Monocytes (%) (Auto) % (1.0-10.0) Eosinophils (%) (Auto) % (0.0-3.0) Basophils (%) (Auto) % (0.0-2.0) Differential Total Cells Counted 100 Neutrophils % (Manual) 94 % (45-75) H Lymphocytes % (Manual) 4 % (20-45) L Monocytes % (Manual) 2 % (1-10) Eosinophils % (Manual) 0 % (0-3) Basophils % (Manual) 0 % (0-2) Band Neutrophils 0 % (0-8) Platelet Estimate Decreased L Platelet Morphology Normal Hypochromasia 2+ Anisocytosis 1+ Sodium Level 143 MMOL/L (136-145) Potassium Level 3.7 MMOL/L (3.5-5.1) Chloride Level 103 MMOL/L (98-107) Carbon Dioxide Level 39 MMOL/L (21-32) H Anion Gap 1 mmol/L (5-15) L Blood Urea Nitrogen 17 mg/dL (7-18) Creatinine 0.8 MG/DL (0.55-1.30) Estimat Glomerular Filtration Rate mL/min (>60) Glucose Level 84 MG/DL (74-106) Calcium Level 8.6 MG/DL (8.5-10.1) Arterial Blood pH 7.452 (7.350-7.450) Arterial Blood Partial Pressure CO2 57.5 mmHg (35.0-45.0) *H Arterial Blood Partial Pressure O2 69.9 mmHg (75.0-100.0) L Arterial Blood HCO3 39.2 mmol/L (22.0-26.0) H Arterial Blood Oxygen Saturation 93.7 % (95-100) L Arterial Blood Base Excess 13.7 (-2-2) *H Delon Test Positive Activated Partial Thromboplast Time 24 SEC (23-33) General Appearance: no apparent distress Head: normocephalic EENT: PERRL/EOMI, normal ENT inspection Neck: supple Respiratory: no respiratory distress Cardiovascular: normal rate Gastrointestinal: normal inspection, non tender, soft, non-distended Rectal: deferred Genitourinary: deferred Musculoskeletal: normal inspection, back normal Neurologic: responsive Skin: normal inspection, normal color, no rash, warm/dry, palpation normal, well hydrated Lymphatic: normal inspection, no adenopathy Current Medications Current Medications Medications (Trade) Dose Ordered Sig/Brittani Route PRN Reason Start Time Stop Time Status Last Admin Dose Admin Acetaminophen (Tylenol) 650 mg Q4H PRN NG FOR MILD PAIN 01/26/19 10:15 02/25/19 10:14 02/12/19 15:31 Acetylcysteine (Mucomyst) 100 mg Q4HRT [facility] 02/12/19 15:00 03/14/19 14:59 02/14/19 11:00 Albuterol/ Ipratropium (Albuterol/ Ipratropium) 3 ml Q4HRT [facility] 02/13/19 15:00 02/18/19 14:59 02/14/19 11:00 Chlorhexidine Gluconate (Renetta-Hex 2%) 1 applic DAILY@1999 TOPIC 02/07/19 20:00 03/09/19 19:59 02/13/19 20:01 Dextrose (Dextrose 50%) 25 ml Q30M PRN IV Hypoglycemia 01/26/19 10:30 02/25/19 10:29 02/13/19 23:33 Dextrose (Dextrose 50%) 50 ml Q30M PRN IV Hypoglycemia 01/26/19 10:30 02/25/19 10:29 02/10/19 23:34 Docusate Sodium (Colace) 100 mg BID NG 02/02/19 18:00 03/04/19 17:59 02/14/19 09:23 Dopamine HCl/ Dextrose 250 ml @ 0 mls/hr Q24H IV 02/06/19 09:15 03/08/19 09:14 02/13/19 03:36 Fentanyl Citrate 1000 mcg/Sodium Chloride 100 ml @ 0 mls/hr Q24H IV 02/10/19 20:30 02/17/19 20:29 02/12/19 03:21 Haloperidol Lactate 0.5 mg/ Dextrose 55.1 ml @ 220.4 mls/ hr Q8H PRN IVPB Agitation 02/10/19 14:15 03/12/19 14:14 02/13/19 00:05 Hydralazine HCl (Apresoline) 25 mg Q6H PRN NG For High Blood Pressure 02/07/19 17:15 03/06/19 16:59 Hydromorphone HCl (Dilaudid) 0.5 mg Q4H PRN IVP For Pain 02/10/19 14:15 02/17/19 14:14 02/13/19 02:03 Insulin Aspart (NovoLOG) Q6HR SUBQ 02/11/19 13:00 03/13/19 12:59 02/11/19 13:02 Lorazepam (Ativan 2mg/ml 1ml) 0.5 mg Q2H PRN IV ANXIETY 02/11/19 16:30 02/18/19 16:29 02/14/19 03:40 Meropenem 2 gm/ Sodium Chloride 110 ml @ 220 mls/hr Q8HR IVPB 02/10/19 22:00 02/21/19 23:59 02/14/19 05:33 Methylprednisolone Sodium Succinate (Solu-MEDROL) 30 mg DAILY IVP 02/14/19 09:00 03/12/19 20:59 02/14/19 09:23 Pantoprazole (Protonix) 40 mg Q12HR IVP 02/03/19 21:00 02/25/19 10:59 02/14/19 09:23 Polyethylene Glycol (Miralax) 17 gm BEDTIME NG 02/07/19 21:00 03/03/19 20:59 02/13/19 20:52 Vancomycin HCl (Vanco rx to dose) 1 ea DAILY PRN MISC Per rx protocol 02/06/19 20:00 03/08/19 19:59 Vancomycin HCl 750 mg/Sodium Chloride 275 ml @ 183.333 mls/hr Q8HR@0400,1200,2000 IVPB 02/08/19 20:00 02/17/19 23:59 02/14/19 12:51 GI: Plan Problems: (1) Encounter for PEG (percutaneous endoscopic gastrostomy) (2) COPD (chronic obstructive pulmonary disease) (3) Respiratory failure (4) Hypoalbuminemia Plan Plan for PEG tomorrow. Hold Eliquis and other blood thinners Okay for NGT feedings now, n.p.o. at midnight. PRN transfusions PPI We will follow with additional recommendations postprocedure Discussed with Dr. Aleman. Thank you for this patient referral, we will follow. The patient was seen and examined at bedside and all new and available data was reviewed in the patients chart. I agree with the above findings, impression and plan. (Patient seen earlier today. Signature stamp does not reflect patient encounter time.). - MD Zonia Yun,[facility] Feb 14, 2019 13:44
--- NOTE | 2019-02-14 14:00 | NUR ---
NURSE NOTES: SEEN AND EXAMINED BY DR MEEKS. DARLENE. TOLERATING CPAP. STILL ON RESTRAINTS. WILL CONTINUE TO MONITOR.
--- NOTE | 2019-02-14 14:39 | Pulmonolgy Critical Care Note ---
Critical Care - Asmt/Plan Assessment/Plan: Pulmonary Critical Care Progress Note HPI Patient is a 73 year olf man with previous history of COPD, CHF, HTN, DM admitted with extreme respiratory distress, intubated in the ED, subsequent Cardiac Arrest. Noted to have hypercapneic respiratory failure. Less interactive today, on continuous BiPAP, ABG stable - s/p Tracheostomy tolerated well, NGT in good position, tolerating CPAP PS8 Allergies: No Known Allergies Past Medical History: COPD/Asthma, CHF, Hypertension, DM All Other Systems: limited Physical Exam Vital signs noted General Appearance: sedated Head: normocephalic, atraumatic Eyes: bilateral eye PERRL, bilateral eye EOMI ENT: moist mm, no LN Neck: supple Respiratory: generally reduced BS Cardiovascular: tachycardia, HS1, HS2, RRR Gastrointestinal: non tender, soft Musculoskeletal: normal inspection Neurologic: sedated, no focal signs Skin: no rash, palpation normal Impression: COPD exacerbation Hypercapneic respiratory failure - s/p Traheostomy S/p cardiac arrest in the ED CHF HTN Diabetes Plan ACVC - wean as tolerated Adjust FIO2 for sats 90-94% HHN Q4 IV Solumedrol - reduce Sedation PRN Sz management Monitor labs PPX Antibiotics per ID DNR status Labs noted Chest X-Ray: No consolidation, no effusion, ETT tube 7cm, PICC line good position Critical Care - Objective Last 24 Hour Vital Signs Date Time Temp Pulse Resp B/P (MAP) Pulse Ox O2 Delivery O2 Flow Rate FiO2 02/14/19 13:10 86 18 30 02/14/19 11:19 83 17 96 Mechanical Ventilator 30 87 20 30 02/14/19 11:00 85 19 142/59 (86) 02/14/19 10:00 73 20 139/75 (96) 97 02/14/19 09:15 139/75 02/14/19 09:00 83 21 139/75 (96) 02/14/19 08:46 80 17 30 02/14/19 08:42 95 02/14/19 08:40 30 02/14/19 08:00 87 17 142/73 (96) 02/14/19 08:00 77 02/14/19 08:00 Mechanical Ventilator 02/14/19 08:00 30 02/14/19 07:07 80 16 97 Mechanical Ventilator 30 80 16 30 02/14/19 07:00 78 16 154/73 (100) 95 02/14/19 06:00 98.5 85 17 130/83 (99) 100 02/14/19 05:30 84 16 146/99 (115) 100 02/14/19 05:00 89 15 133/78 (96) 100 02/14/19 04:59 84 18 30 02/14/19 04:00 97.8 84 18 130/72 (91) 96 02/14/19 04:00 Mechanical Ventilator 02/14/19 04:00 30 02/14/19 03:53 81 18 142/64 (90) 88 02/14/19 03:30 90 20 145/95 (112) 96 02/14/19 03:01 84 02/14/19 03:00 91 15 105/85 (92) 96 02/14/19 03:00 105/85 02/14/19 02:58 79 17 99 Mechanical Ventilator 30 89 16 30 02/14/19 02:30 80 15 123/109 (114) 81 02/14/19 02:00 87 17 120/88 (99) 96 02/14/19 02:00 120/88 02/14/19 01:30 86 17 138/103 (115) 82 02/14/19 01:16 87 16 30 02/14/19 01:00 85 17 116/70 (85) 93 02/14/19 01:00 116/70 02/14/19 00:30 85 19 126/60 (82) 99 02/14/19 00:07 97.8 89 18 113/94 (100) 99 02/14/19 00:00 30 02/14/19 00:00 Mechanical Ventilator 02/14/19 00:00 85 16 100 02/14/19 00:00 113/94 02/13/19 23:30 80 17 155/77 (103) 100 02/13/19 23:25 83 18 152/77 (102) 99 02/13/19 23:09 88 16 100 Mechanical Ventilator 30 91 16 30 02/13/19 23:03 88 02/13/19 23:00 74/35 02/13/19 23:00 83 12 74/35 (48) 96 02/13/19 22:30 82 16 104/60 (75) 96 02/13/19 22:00 92/58 02/13/19 22:00 80 9 92/58 (69) 100 02/13/19 21:30 81 17 117/61 (79) 93 02/13/19 21:21 81 17 30 02/13/19 21:00 85 18 116/63 (80) 95 02/13/19 21:00 116/63 02/13/19 20:30 89 17 126/81 (96) 98 02/13/19 20:30 18 Mechanical Ventilator 30 02/13/19 20:00 30 02/13/19 20:00 98.6 97 18 124/66 (85) 100 02/13/19 20:00 124/66 02/13/19 20:00 Mechanical Ventilator 02/13/19 19:30 96 13 108/91 (97) 100 02/13/19 19:24 95 02/13/19 19:00 96 17 114/85 (95) 100 02/13/19 19:00 114/85 02/13/19 18:59 91 18 100 Mechanical Ventilator 30 95 17 30 02/13/19 18:30 83 18 119/28 (58) 100 02/13/19 18:00 122/96 02/13/19 18:00 88 16 122/96 (105) 100 02/13/19 17:30 94 16 130/71 (90) 100 02/13/19 17:00 98 16 125/77 (93) 100 02/13/19 17:00 125/77 02/13/19 16:31 92 17 30 02/13/19 16:30 96 16 109/93 (98) 100 02/13/19 16:00 30 02/13/19 16:00 98.9 93 16 94/61 (72) 100 02/13/19 16:00 Mechanical Ventilator 02/13/19 16:00 94/61 02/13/19 16:00 93 02/13/19 15:30 92 16 120/87 (98) 100 02/13/19 15:28 90 16 100 Mechanical Ventilator 30 91 16 30 02/13/19 15:00 90 16 116/93 (101) 100 02/13/19 15:00 116/93 Accucheck: 82 Critical Care - Subjective ROS Limited/Unobtainable: No FI02: 30 Vent Support Breath Rate: 16 Vent Support Mode: CPAP Vent Tidal Volume: 500 Sputum Amount: Scant PEEP: 5.0 PIP: 14 Tube Feeding Amount: 0 I&O: Intake and Output 02/13/19 02/14/19 19:00 07:00 Intake Total 673.737 ml 1254.486 ml Output Total 1865 ml 1660 ml Balance -1191.263 ml -405.514 ml Intake Free Water 50 ml IV Total 553.737 ml 794.486 ml Tube Feeding 60 ml 360 ml Other 10 ml 100 ml Output Urine Total 1865 ml 1660 ml # Bowel Movements 2 ET-Tube: 7.5 ET Position: 24 Johny White MD Feb 14, 2019 14:39
--- NOTE | 2019-02-14 16:01 | NUR ---
NURSE NOTES: PATIENT KEPT CLEAN AND DRY. ORAL CARE DONE. WILL CONTINUE TO MONITOR.
--- NOTE | 2019-02-14 16:55 | Infectious Diseases Prog Note ---
Assessment/Plan Problems: (1) Aspiration pneumonia Assessment & Plan: due to pseudomonas aeruginosa , continue meropenem with higher dose for two weeks , aspiration precaution . EOT 02/21/19 (2) Leukocytosis Assessment & Plan: PARTIALLY DUE TO STEROIDS , with no evidence rule out sepsis , repeated blood culture x2 is negative , continue meropenem and vancomycin empirically pending cultures . IJ line was removed. taper steroids (3) Acute exacerbation of chronic obstructive pulmonary disease (COPD) Assessment & Plan: S/P doxycycline , on steroids and nebulizer treatment as per pulmonary (4) Cardiac arrest Assessment & Plan: etiology ? cardiology eval to rule out cardiac sources and neurology eval to evaluate his brain condition and to rule out anoxic brain injury (5) Chronic hypercapnic respiratory failure Assessment & Plan: S/P cardiac arrest , S/P tracheostomy today after failing multiple weaning trials , pulmonary is following Subjective ROS Limited/Unobtainable: Yes Allergies: Coded Allergies: No Known Allergies (Unverified , 06/05/18) Subjective He was on ventilator , had tracheostomy on 02/12 , tolerating weaning trials now well , unresponsive to verbal commands, no fever or chills Objective Vital Signs Last 24 Hour Vital Signs Date Time Temp Pulse Resp B/P (MAP) Pulse Ox O2 Delivery O2 Flow Rate FiO2 02/14/19 16:41 84 19 30 02/14/19 16:00 89 02/14/19 16:00 77 22 157/76 (103) 96 02/14/19 16:00 30 02/14/19 15:10 87 17 95 Mechanical Ventilator 30 81 21 30 02/14/19 15:00 Mechanical Ventilator 02/14/19 15:00 97.5 78 22 155/71 (99) 97 02/14/19 14:00 86 19 142/59 (86) 98 02/14/19 13:10 86 18 30 02/14/19 13:00 86 23 135/82 (99) 92 02/14/19 12:00 30 02/14/19 12:00 97.3 77 23 138/73 (94) 95 02/14/19 12:00 80 02/14/19 11:19 83 17 96 Mechanical Ventilator 30 87 20 30 02/14/19 11:00 85 19 142/59 (86) 02/14/19 10:00 73 20 139/75 (96) 97 02/14/19 09:15 139/75 02/14/19 09:00 83 21 139/75 (96) 02/14/19 08:46 80 17 30 02/14/19 08:42 95 02/14/19 08:40 30 02/14/19 08:00 87 17 142/73 (96) 02/14/19 08:00 77 02/14/19 08:00 Mechanical Ventilator 02/14/19 08:00 30 02/14/19 07:07 80 16 97 Mechanical Ventilator 30 80 16 30 02/14/19 07:00 78 16 154/73 (100) 95 02/14/19 06:00 98.5 85 17 130/83 (99) 100 02/14/19 05:30 84 16 146/99 (115) 100 02/14/19 05:00 89 15 133/78 (96) 100 02/14/19 04:59 84 18 30 02/14/19 04:00 97.8 84 18 130/72 (91) 96 02/14/19 04:00 Mechanical Ventilator 02/14/19 04:00 30 02/14/19 03:53 81 18 142/64 (90) 88 02/14/19 03:30 90 20 145/95 (112) 96 02/14/19 03:01 84 02/14/19 03:00 91 15 105/85 (92) 96 02/14/19 03:00 105/85 02/14/19 02:58 79 17 99 Mechanical Ventilator 30 89 16 30 02/14/19 02:30 80 15 123/109 (114) 81 02/14/19 02:00 87 17 120/88 (99) 96 02/14/19 02:00 120/88 02/14/19 01:30 86 17 138/103 (115) 82 02/14/19 01:16 87 16 30 02/14/19 01:00 85 17 116/70 (85) 93 02/14/19 01:00 116/70 02/14/19 00:30 85 19 126/60 (82) 99 02/14/19 00:07 97.8 89 18 113/94 (100) 99 02/14/19 00:00 30 02/14/19 00:00 Mechanical Ventilator 02/14/19 00:00 85 16 100 02/14/19 00:00 113/94 02/13/19 23:30 80 17 155/77 (103) 100 02/13/19 23:25 83 18 152/77 (102) 99 02/13/19 23:09 88 16 100 Mechanical Ventilator 30 91 16 30 02/13/19 23:03 88 02/13/19 23:00 74/35 02/13/19 23:00 83 12 74/35 (48) 96 02/13/19 22:30 82 16 104/60 (75) 96 02/13/19 22:00 92/58 02/13/19 22:00 80 9 92/58 (69) 100 02/13/19 21:30 81 17 117/61 (79) 93 02/13/19 21:21 81 17 30 02/13/19 21:00 85 18 116/63 (80) 95 02/13/19 21:00 116/63 02/13/19 20:30 89 17 126/81 (96) 98 02/13/19 20:30 18 Mechanical Ventilator 30 02/13/19 20:00 30 02/13/19 20:00 98.6 97 18 124/66 (85) 100 02/13/19 20:00 124/66 02/13/19 20:00 Mechanical Ventilator 02/13/19 19:30 96 13 108/91 (97) 100 02/13/19 19:24 95 02/13/19 19:00 96 17 114/85 (95) 100 02/13/19 19:00 114/85 02/13/19 18:59 91 18 100 Mechanical Ventilator 30 95 17 30 02/13/19 18:30 83 18 119/28 (58) 100 02/13/19 18:00 122/96 02/13/19 18:00 88 16 122/96 (105) 100 02/13/19 17:30 94 16 130/71 (90) 100 02/13/19 17:00 98 16 125/77 (93) 100 02/13/19 17:00 125/77 Height (Feet): 5 Height (Inches): 10.00 Weight (Pounds): 168 General Appearance: WD/WN, no acute distress HEENT: normocephalic, atraumatic, anicteric, mucous membranes moist, PERRL, EOMI, pharynx normal, supple, no JVD Respiratory/Chest: chest wall non-tender, lungs clear, normal breath sounds, no respiratory distress, no accessory muscle use Cardiovascular: normal peripheral pulses, normal rate, regular rhythm, no gallop/murmur, no JVD Abdomen: normal bowel sounds, soft, non tender, no organomegaly, non distended , no mass, no scars Genitourinary: normal external genitalia Extremities: no cyanosis, no clubbing Skin: no rash, no lesions, no ulcers Neurologic/Psychiatric: alert, responsive Lymphatic: no neck adenopathy, no groin adenopathy Musculoskeletal: normal muscle bulk, no effusion Laboratory Tests Test 02/14/19 03:40 02/14/19 09:40 02/14/19 12:49 White Blood Count 12.6 K/UL (4.8-10.8) H Red Blood Count 2.83 M/UL (4.70-6.10) L Hemoglobin 8.5 G/DL (14.2-18.0) L Hematocrit 27.1 % (42.0-52.0) L Mean Corpuscular Volume 96 FL (80-99) Mean Corpuscular Hemoglobin 30.0 PG (27.0-31.0) Mean Corpuscular Hemoglobin Concent 31.4 G/DL (32.0-36.0) L Red Cell Distribution Width 14.9 % (11.6-14.8) H Platelet Count 109 K/UL (150-450) L Mean Platelet Volume 6.8 FL (6.5-10.1) Neutrophils (%) (Auto) % (45.0-75.0) Lymphocytes (%) (Auto) % (20.0-45.0) Monocytes (%) (Auto) % (1.0-10.0) Eosinophils (%) (Auto) % (0.0-3.0) Basophils (%) (Auto) % (0.0-2.0) Differential Total Cells Counted 100 Neutrophils % (Manual) 94 % (45-75) H Lymphocytes % (Manual) 4 % (20-45) L Monocytes % (Manual) 2 % (1-10) Eosinophils % (Manual) 0 % (0-3) Basophils % (Manual) 0 % (0-2) Band Neutrophils 0 % (0-8) Platelet Estimate Decreased L Platelet Morphology Normal Hypochromasia 2+ Anisocytosis 1+ Sodium Level 143 MMOL/L (136-145) Potassium Level 3.7 MMOL/L (3.5-5.1) Chloride Level 103 MMOL/L (98-107) Carbon Dioxide Level 39 MMOL/L (21-32) H Anion Gap 1 mmol/L (5-15) L Blood Urea Nitrogen 17 mg/dL (7-18) Creatinine 0.8 MG/DL (0.55-1.30) Estimat Glomerular Filtration Rate mL/min (>60) Glucose Level 84 MG/DL (74-106) Calcium Level 8.6 MG/DL (8.5-10.1) Arterial Blood pH 7.452 (7.350-7.450) Arterial Blood Partial Pressure CO2 57.5 mmHg (35.0-45.0) *H Arterial Blood Partial Pressure O2 69.9 mmHg (75.0-100.0) L Arterial Blood HCO3 39.2 mmol/L (22.0-26.0) H Arterial Blood Oxygen Saturation 93.7 % (95-100) L Arterial Blood Base Excess 13.7 (-2-2) *H Delon Test Positive Activated Partial Thromboplast Time 24 SEC (23-33) Current Medications Medications (Trade) Dose Ordered Sig/Brittani Route PRN Reason Start Time Stop Time Status Last Admin Dose Admin Acetaminophen (Tylenol) 650 mg Q4H PRN NG FOR MILD PAIN 01/26/19 10:15 02/25/19 10:14 02/12/19 15:31 Acetylcysteine (Mucomyst) 100 mg Q4HRT [facility] 02/12/19 15:00 03/14/19 14:59 02/14/19 15:10 Albuterol/ Ipratropium (Albuterol/ Ipratropium) 3 ml Q4HRT N 02/13/19 15:00 02/18/19 14:59 02/14/19 15:10 Chlorhexidine Gluconate (Renetta-Hex 2%) 1 applic DAILY@1999 TOPIC 02/07/19 20:00 03/09/19 19:59 02/13/19 20:01 Dextrose (Dextrose 50%) 25 ml Q30M PRN IV Hypoglycemia 01/26/19 10:30 02/25/19 10:29 02/13/19 23:33 Dextrose (Dextrose 50%) 50 ml Q30M PRN IV Hypoglycemia 01/26/19 10:30 02/25/19 10:29 02/10/19 23:34 Docusate Sodium (Colace) 100 mg BID NG 02/02/19 18:00 03/04/19 17:59 02/14/19 09:23 Dopamine HCl/ Dextrose 250 ml @ 0 mls/hr Q24H IV 02/06/19 09:15 03/08/19 09:14 02/13/19 03:36 Fentanyl Citrate 1000 mcg/Sodium Chloride 100 ml @ 0 mls/hr Q24H IV 02/10/19 20:30 02/17/19 20:29 02/12/19 03:21 Haloperidol Lactate 0.5 mg/ Dextrose 55.1 ml @ 220.4 mls/ hr Q8H PRN IVPB Agitation 02/10/19 14:15 03/12/19 14:14 02/13/19 00:05 Hydralazine HCl (Apresoline) 25 mg Q6H PRN NG For High Blood Pressure 02/07/19 17:15 03/06/19 16:59 Hydromorphone HCl (Dilaudid) 0.5 mg Q4H PRN IVP For Pain 02/10/19 14:15 02/17/19 14:14 02/13/19 02:03 Insulin Aspart (NovoLOG) Q6HR SUBQ 02/11/19 13:00 03/13/19 12:59 02/11/19 13:02 Lorazepam (Ativan 2mg/ml 1ml) 0.5 mg Q2H PRN IV ANXIETY 02/11/19 16:30 02/18/19 16:29 02/14/19 03:40 Meropenem 2 gm/ Sodium Chloride 110 ml @ 220 mls/hr Q8HR IVPB 02/10/19 22:00 02/21/19 23:59 02/14/19 14:17 Methylprednisolone Sodium Succinate (Solu-MEDROL) 30 mg DAILY IVP 02/14/19 09:00 03/12/19 20:59 02/14/19 09:23 Pantoprazole (Protonix) 40 mg Q12HR IVP 02/03/19 21:00 02/25/19 10:59 02/14/19 09:23 Polyethylene Glycol (Miralax) 17 gm BEDTIME NG 02/07/19 21:00 03/03/19 20:59 02/13/19 20:52 Vancomycin HCl (Vanco rx to dose) 1 ea DAILY PRN MISC Per rx protocol 02/06/19 20:00 03/08/19 19:59 Vancomycin HCl 750 mg/Sodium Chloride 275 ml @ 183.333 mls/hr Q8HR@0400,1200,2000 IVPB 02/08/19 20:00 02/17/19 23:59 02/14/19 12:51 [place] Olrando M.D. Feb 14, 2019 16:55
--- NOTE | 2019-02-14 17:58 | NUR ---
NURSE NOTES: PATIENT SUCTIONED AND REPOSITIONED. STILL TOLERATING CPAP. NO SIGNS OF DISTRESS. WILL CONTINUE TO MONITOR.
--- NOTE | 2019-02-14 18:24 | NUR ---
NURSE NOTES: REPOSITIONED PATIENT. NOTED TO BE PULLING TRACH. NO SIGNS OF DISTRESS OF THE MOMENT. WILL CONTINUE TO MONITOR.
--- NOTE | 2019-02-14 19:17 | NUR ---
HAND-OFF: Report given to Victor Hugo Perrin RN.
--- NOTE | 2019-02-14 19:20 | NUR ---
NURSE NOTES: Received report from Luigi ROYAL. Patient in bed restless with episode of pulling out trach and tubing, checked bilateral soft wrist restraint. Pt received on CPAP PS of 8 peep of 5. Trach to vent no s/s of acute distress noted. Will change to AC mode at 8pm.No active bleeding noted on trach area. HOB elevated. Left NGT intact running Glucerna 1.5 at 45cc/hr Saenz draining. No s/s of hypo/hyperglycemia. Noted with generalized edema and weeping bilateral arms, placed pads on bilateral arms. Left Upper arm PICC line was pulled out a little bit, checked and confirmed by Radiologist, and will use as midline per am nurse. Bed in low position. Bed alarm on. Will continue plan of care.
--- NOTE | 2019-02-14 19:50 | NUR ---
PT RECEIVED STABLE ON CPAP PS OF 8 PEEP +5. ALARMS ON AND AUDIBLE. VENT CIRCUIT SECURE AND OUT OF THE WAY. PT GIVEN HHN TX WITH NO ADR. PT WAS PLACED ON AC @ 2005 PER CURRENT RESP. ORDERS. PT IS CURRENTLY ON A/C 16, 500, 30%, + 5. ALARMS ARE PROPERLY ADJUSTED. NO S/S OF RESPIRATORY DISTRESS NOTED AT THIS TIME. WILL CONTINUE TO MONITOR.
[2019-02-14] MEDS: fentaNYL Citrate 1000 MCG in NS 100ml IV SCH (20:30)
[2019-02-14] MEDS: Dyna-Hex 2% Top Sol 2oz TOPIC SCH (20:48)
[2019-02-14] MEDS: Miralax 17gm pkt NG SCH (20:48)
--- NOTE | 2019-02-14 21:20 | NUR ---
NURSE NOTES: Received P200 mattress, placed on pt bed. Bed bath given tolerated well.
--- NOTE | 2019-02-14 23:20 | NUR ---
NURSE NOTES: Patient in bed noted with anxiety despite of bilateral soft wrist restraint pt trying to pulled out tubing, reality orientation provided, repositioned and pulled up in bed, TV and talk therapy provided. will continue to monitor pt.
--- NOTE | 2019-02-14 23:57 | Cardiology Progress Note ---
Assessment/Plan Assessment/Plan 1. Cardiopulmonary arrest due to anoxia, 2D echo reveals normal LVEF. 2. Non-STEMI, conservative management in face of DNR. 3. Moderate aortic regurgitation. 4. Ventilatory derived respiratory failure, s/p trach placement, POD #3. 5. Hypernatremia, better with hypotonic fluids. 6. Aspiration pneumonia/leukocytosis slightly worsened. 7. Acuter right IJ thrombosis due to IJ catheter. 8. Thrombocytopenia, will monitor platelet count. Subjective Subjective Sinus rhythm at rate of 80.. FiO2 of 30%. s/p tracheostomy, POD #3 Objective Last 24 Hour Vital Signs Date Time Temp Pulse Resp B/P (MAP) Pulse Ox O2 Delivery O2 Flow Rate FiO2 02/14/19 23:30 80 17 114/91 (99) 98 02/14/19 23:00 70 15 100/62 (75) 98 02/14/19 22:00 78 15 121/55 (77) 100 02/14/19 21:52 89 21 143/55 (84) 98 02/14/19 21:28 70 16 30 02/14/19 21:00 77 17 124/110 (115) 96 02/14/19 20:30 75 18 100/64 (76) 96 02/14/19 20:06 80 16 30 02/14/19 20:00 Mechanical Ventilator 02/14/19 20:00 71 02/14/19 20:00 98.0 73 19 126/83 (97) 94 02/14/19 20:00 30 02/14/19 19:50 84 19 95 Mechanical Ventilator 84 19 02/14/19 19:00 82 19 163/84 (110) 02/14/19 18:00 87 21 157/80 (105) 91 02/14/19 17:00 90 19 142/77 (98) 98 02/14/19 16:41 84 19 30 02/14/19 16:00 89 02/14/19 16:00 77 22 157/76 (103) 96 02/14/19 16:00 30 02/14/19 15:10 87 17 95 Mechanical Ventilator 30 81 21 30 02/14/19 15:00 Mechanical Ventilator 02/14/19 15:00 97.5 78 22 155/71 (99) 97 02/14/19 14:00 86 19 142/59 (86) 98 02/14/19 13:10 86 18 30 02/14/19 13:00 86 23 135/82 (99) 92 02/14/19 12:00 30 02/14/19 12:00 97.3 77 23 138/73 (94) 95 02/14/19 12:00 80 02/14/19 11:19 83 17 96 Mechanical Ventilator 30 87 20 30 02/14/19 11:00 85 19 142/59 (86) 02/14/19 10:00 73 20 139/75 (96) 97 02/14/19 09:15 139/75 02/14/19 09:00 83 21 139/75 (96) 02/14/19 08:46 80 17 30 02/14/19 08:42 95 02/14/19 08:40 30 02/14/19 08:00 87 17 142/73 (96) 02/14/19 08:00 77 02/14/19 08:00 Mechanical Ventilator 02/14/19 08:00 30 02/14/19 07:07 80 16 97 Mechanical Ventilator 30 80 16 30 02/14/19 07:00 78 16 154/73 (100) 95 02/14/19 06:00 98.5 85 17 130/83 (99) 100 02/14/19 05:30 84 16 146/99 (115) 100 02/14/19 05:00 89 15 133/78 (96) 100 02/14/19 04:59 84 18 30 02/14/19 04:00 97.8 84 18 130/72 (91) 96 02/14/19 04:00 Mechanical Ventilator 02/14/19 04:00 30 02/14/19 03:53 81 18 142/64 (90) 88 02/14/19 03:30 90 20 145/95 (112) 96 02/14/19 03:01 84 02/14/19 03:00 91 15 105/85 (92) 96 02/14/19 03:00 105/85 02/14/19 02:58 79 17 99 Mechanical Ventilator 30 89 16 30 02/14/19 02:30 80 15 123/109 (114) 81 02/14/19 02:00 87 17 120/88 (99) 96 02/14/19 02:00 120/88 02/14/19 01:30 86 17 138/103 (115) 82 02/14/19 01:16 87 16 30 02/14/19 01:00 85 17 116/70 (85) 93 02/14/19 01:00 116/70 02/14/19 00:30 85 19 126/60 (82) 99 02/14/19 00:07 97.8 89 18 113/94 (100) 99 02/14/19 00:00 30 02/14/19 00:00 Mechanical Ventilator 02/14/19 00:00 85 16 100 02/14/19 00:00 113/94 Intake and Output 02/13/19 02/14/19 19:00 07:00 Intake Total 673.737 ml 1254.486 ml Output Total 1865 ml 1660 ml Balance -1191.263 ml -405.514 ml Intake Free Water 50 ml IV Total 553.737 ml 794.486 ml Tube Feeding 60 ml 360 ml Other 10 ml 100 ml Output Urine Total 1865 ml 1660 ml # Bowel Movements 2 2D Echo: LVEF 55%, moderate AR Laboratory Tests Test 02/14/19 03:40 02/14/19 09:40 02/14/19 12:49 White Blood Count 12.6 K/UL (4.8-10.8) H Red Blood Count 2.83 M/UL (4.70-6.10) L Hemoglobin 8.5 G/DL (14.2-18.0) L Hematocrit 27.1 % (42.0-52.0) L Mean Corpuscular Volume 96 FL (80-99) Mean Corpuscular Hemoglobin 30.0 PG (27.0-31.0) Mean Corpuscular Hemoglobin Concent 31.4 G/DL (32.0-36.0) L Red Cell Distribution Width 14.9 % (11.6-14.8) H Platelet Count 109 K/UL (150-450) L Mean Platelet Volume 6.8 FL (6.5-10.1) Neutrophils (%) (Auto) % (45.0-75.0) Lymphocytes (%) (Auto) % (20.0-45.0) Monocytes (%) (Auto) % (1.0-10.0) Eosinophils (%) (Auto) % (0.0-3.0) Basophils (%) (Auto) % (0.0-2.0) Differential Total Cells Counted 100 Neutrophils % (Manual) 94 % (45-75) H Lymphocytes % (Manual) 4 % (20-45) L Monocytes % (Manual) 2 % (1-10) Eosinophils % (Manual) 0 % (0-3) Basophils % (Manual) 0 % (0-2) Band Neutrophils 0 % (0-8) Platelet Estimate Decreased L Platelet Morphology Normal Hypochromasia 2+ Anisocytosis 1+ Sodium Level 143 MMOL/L (136-145) Potassium Level 3.7 MMOL/L (3.5-5.1) Chloride Level 103 MMOL/L (98-107) Carbon Dioxide Level 39 MMOL/L (21-32) H Anion Gap 1 mmol/L (5-15) L Blood Urea Nitrogen 17 mg/dL (7-18) Creatinine 0.8 MG/DL (0.55-1.30) Estimat Glomerular Filtration Rate mL/min (>60) Glucose Level 84 MG/DL (74-106) Calcium Level 8.6 MG/DL (8.5-10.1) Arterial Blood pH 7.452 (7.350-7.450) Arterial Blood Partial Pressure CO2 57.5 mmHg (35.0-45.0) *H Arterial Blood Partial Pressure O2 69.9 mmHg (75.0-100.0) L Arterial Blood HCO3 39.2 mmol/L (22.0-26.0) H Arterial Blood Oxygen Saturation 93.7 % (95-100) L Arterial Blood Base Excess 13.7 (-2-2) *H Delon Test Positive Activated Partial Thromboplast Time 24 SEC (23-33) Objective HEENT: Atraumatic, arousable, orally intubated, conjunctival pallor. NECK: Cannot assess JVD, no carotid bruit. Trach tube in place. LUNGS: Bilateral breath sounds. Few rhonchi. No wheezing. CARDIAC: Regular rhythm and rate. Normal S1 and S2. No murmurs, gallops or rubs. ABDOMEN: Soft, non-distended, + BS. EXTREMITIES: No edema, clubbing or cyanosis. Lv Zuniga MD Feb 14, 2019 23:57
[2019-02-15] VITALS (38 sets, daily range): BP systolic 82–151; BP diastolic 31–121
[2019-02-15] MEDS: Albuterol/Ipratropium 3ml neb HHN SCH ×7 (00:06→23:36)
[2019-02-15] MEDS: LORazepam Inj 2mg/ml 1ml IV PRN ×4 (00:20→20:32)
--- NOTE | 2019-02-15 00:30 | NUR ---
NURSE NOTES: Ativan 0.5mg IVP given for anxiety effective. NPO after 12mn for EGD poss PEG and biopsy. Consent obtained by AM nurse. No fever. Oral care and suctioned as needed. Will continue to monitor pt.
--- NOTE | 2019-02-15 02:30 | NUR ---
NURSE NOTES: Patient in bed resting with on and off episode of trying to pull out tubing, frequent visual checks continued. bilateral soft wrist restrain checked every 1 hours. comfort measure provided. no s/s of acute distress noted.
[2019-02-15 03:36] LABS: HEMATOCRIT 28.5 % (42.0-52.0); HEMOGLOBIN 8.7 G/DL (14.2-18.0); MEAN CORPUSCULAR VOLUME 97 FL (80-99); PLATELET COUNT 103 K/UL (150-450); RED BLOOD COUNT 2.95 M/UL (4.70-6.10); RED CELL DISTRIBUTION WIDTH 14.9 % (11.6-14.8); WHITE BLOOD COUNT 11.4 K/UL (4.8-10.8)
[2019-02-15 03:46] LABS: ANION GAP 1 mmol/L (5-15); BLOOD UREA NITROGEN 18 mg/dL (7-18); CALCIUM 8.9 MG/DL (8.5-10.1); CARBON DIOXIDE 39 MMOL/L (21-32); CHLORIDE 104 MMOL/L (98-107); CREATININE 0.9 MG/DL (0.55-1.30); SODIUM 144 MMOL/L (136-145)
[2019-02-15 03:51] LABS: ALANINE AMINOTRANSFERASE 46 U/L (12-78); ALBUMIN 2.3 G/DL (3.4-5.0); ALBUMIN/GLOBULIN RATIO 0.9 (1.0-2.7); ALKALINE PHOSPHATASE 68 U/L (46-116); ASPARTATE AMINO TRANSFERASE 25 U/L (15-37); BILIRUBIN,TOTAL 0.7 MG/DL (0.2-1.0)
--- NOTE | 2019-02-15 04:27 | NUR ---
Send message to [facility] regarding vanco through lab result 33.9. will follow up.
[2019-02-15 04:40] LABS: PHOSPHORUS 2.2 MG/DL (2.5-4.9)
--- NOTE | 2019-02-15 04:51 | NUR ---
NURSE NOTES: Send message to [facility] Pharmacist spoke with asif regarding vanco through lab result 33.9 D/C vanco will follow protocol. Charge nurse aware.
--- NOTE | 2019-02-15 05:14 | NUR ---
RESPIRATORY NOTE: PT REMAINED STABLE ON CMV WITH CURRENT SETTINGS. SX PRN WITH NO ADR. VENT CIRCUIT SECURE AND OUT OF THE AY. NO S/S OF RESPIRATORY DISTRESS NOTED AT THIS TIME.
[2019-02-15] MEDS: NovoLOG Insulin Flexpen SUBQ SCH ×4 (06:00→18:00)
[2019-02-15] MEDS: Meropenem 2 GM in NS 110 ML IVPB SCH ×3 (06:29→21:47)
--- NOTE | 2019-02-15 06:46 | NUR ---
NURSE NOTES: Fatoumata ROYAL from GI lab called and updated regarding the pt condition prior to EGD
--- NOTE | 2019-02-15 07:39 | NUR ---
HAND-OFF: Report given to Lilai ROYAL.
--- NOTE | 2019-02-15 07:40 | NUR ---
NURSE NOTES: Received change of shift report from Esperanza ROYAL. Pt is asleep, opens eyes to name/touch, pt is confused and noncompliant, unable to follow commands, pt attempts to pull IV line and trach out. Bilateral soft wrist restraints are in place for pt safety, with skin integrity at restraint site within normal limits. Pt has trach, Shiley 8.0 connected to vent with settings AC16, VT500, Peep 5.0, FIO2 30% with O2sat at 100%. Bilateral inspiratory and expiratory diminished lungs sounds are noted on auscultation. gis software developer displays NSR with heart rate in the 80's. Pt has generalized edema and peripheral pitting/weeping edema with weak peripheral pulses. Left upper arm midline is in place, currently saline locked, patent and dressing slightly wet. NGT is present in left nare, with feeding on hold since midnight in anticipation for scheduled EGD this afternoon. Abdomen is soft/nontender to touch with hypoactive bowel sounds in all quadrants. Skin has left upper back petechiae, small skin tears on bilateral shins, covered with optifoam dressing. Pt is on P200 pressure release mattress. Bed is locked with three side rails up in lowest position, head of bed at semi-niño's and call light within reach. Will continue with plan of care.
--- NOTE | 2019-02-15 07:53 | NUR ---
RESPIRATORY NOTE: Received pt on AC 16 VT 500, 30% PEEP +5. Trach with shiley 8 cuffed. Suctioned with no complications. Trach is patent and secure. Alarms are on and audible. back up trach and ambu bag bedside. Will continue to monitor.
[2019-02-15] MEDS: Solu-MEDROL 40mg Inj IVP SCH (08:38)
[2019-02-15] MEDS: Pantoprazole Inj IVP SCH ×2 (08:38→20:28)
[2019-02-15] MEDS: Docusate 100mg tablet NG SCH ×2 (08:38→16:54)
[2019-02-15] MEDS: DOPamine 400mg/250ml 250 ML IV SCH (08:38)
[2019-02-15] MEDS ORDERED: Enoxaparin 40mg Inj SUBQ SCH (09:00)
--- NOTE | 2019-02-15 09:06 | Anethesia Preoperative Eval ---
Anesthesia Pre-op PMH/ROS General Date of Evaluation: Feb 15, 2019 ASA Score: ASA 4 Mallampati Score Class I : Soft palate, uvula, fauces, pillars visible Class II: Soft palate, uvula, fauces visible Class III: Soft palate, base of uvula visible Class IV: Only hard plate visible Mallampati Classification: Class III Allergies: Coded Allergies: No Known Allergies (Unverified , 06/05/18) Patient NPO?: Yes NPO Date: Feb 12, 2019 NPO Time: 0000 Past Medical History Cardiovascular: Reports: HTN, MD Pulmonary: Reports: COPD Neurologic/Psychiatric: Reports: dementia, depression/anxiety Endocrine: Reports: DM Hematology/Immune: Reports: anemia, DVT Anesthesia Pre-op Phys. Exam Physician Exam Last Vital Signs Date Time Temp Pulse Resp B/P (MAP) Pulse Ox O2 Delivery O2 Flow Rate FiO2 02/15/19 08:30 69 16 110/51 (70) 100 02/15/19 08:00 97.4 02/15/19 07:53 Mechanical Ventilator 30 30 Airway Exam Mallampati Score: Class III Anesthesia Pre-op A/P Labs Hematology Test 02/15/19 03:24 White Blood Count 11.4 K/UL (4.8-10.8) H Red Blood Count 2.95 M/UL (4.70-6.10) L Hemoglobin 8.7 G/DL (14.2-18.0) L Hematocrit 28.5 % (42.0-52.0) L Mean Corpuscular Volume 97 FL (80-99) Mean Corpuscular Hemoglobin 29.5 PG (27.0-31.0) Mean Corpuscular Hemoglobin Concent 30.5 G/DL (32.0-36.0) L Red Cell Distribution Width 14.9 % (11.6-14.8) H Platelet Count 103 K/UL (150-450) L Mean Platelet Volume 6.5 FL (6.5-10.1) Neutrophils (%) (Auto) % (45.0-75.0) Lymphocytes (%) (Auto) % (20.0-45.0) Monocytes (%) (Auto) % (1.0-10.0) Eosinophils (%) (Auto) % (0.0-3.0) Basophils (%) (Auto) % (0.0-2.0) Coagulation Test 02/14/19 12:49 02/15/19 03:24 Activated Partial Thromboplast Time 24 SEC (23-33) 26 SEC (23-33) Prothrombin Time 10.7 SEC (9.30-11.50) Prothromb Time International Ratio 1.0 (0.9-1.1) Chemistry Test 02/15/19 03:24 Sodium Level 144 MMOL/L (136-145) Potassium Level 4.0 MMOL/L (3.5-5.1) Chloride Level 104 MMOL/L (98-107) Carbon Dioxide Level 39 MMOL/L (21-32) H Anion Gap 1 mmol/L (5-15) L Blood Urea Nitrogen 18 mg/dL (7-18) Creatinine 0.9 MG/DL (0.55-1.30) Estimat Glomerular Filtration Rate mL/min (>60) Glucose Level 83 MG/DL (74-106) Calcium Level 8.9 MG/DL (8.5-10.1) Phosphorus Level 2.2 MG/DL (2.5-4.9) L Magnesium Level 2.0 MG/DL (1.8-2.4) Total Bilirubin 0.7 MG/DL (0.2-1.0) Aspartate Amino Transf (AST/SGOT) 25 U/L (15-37) Alanine Aminotransferase (ALT/SGPT) 46 U/L (12-78) Alkaline Phosphatase 68 U/L (46-116) C-Reactive Protein, Quantitative 1.4 mg/dL (0.00-0.90) H Pro-B-Type Natriuretic Peptide 724 pg/mL (0-125) H Total Protein 5.0 G/DL (6.4-8.2) L Albumin 2.3 G/DL (3.4-5.0) L Globulin 2.7 g/dL Albumin/Globulin Ratio 0.9 (1.0-2.7) Kami Rosas CRNA Feb 15, 2019 09:06
--- NOTE | 2019-02-15 09:30 | NUR ---
NURSE NOTES: AM meds were administered. Oral care was done. Skin was reassessed with the wound care nurse. Pt was turned/repositioned. VS stable.
--- NOTE | 2019-02-15 09:47 | Hematology/Onc Progress Note ---
Assessment/Plan Assessment/Plan # Right jugular vein DVT acute --> have discontinued eliquis --> lovenox started --> okay for lovenox at this time and consider eliquis after surg --> h/h being monitored at this time --> rescan in 3 months # Thrombocytopenia is likely due to underlying infection/sepsis v dic, reactive process --> hiv is neg, hepatitis is neg as well --> us of the abd from prior 2018 --> plt rend 140-->115-->105-->133-->110k--> 118k-->100k-->95k-->109k-->96k--> 109k-->103k --> okay for ppx as long as above 75k --> meds have been reviewed # Anemia of chronic disease, due to multifactorial causes --> anemia panel reviewed from earlier in admission and c/w acd --> hgb goal is >7 --> no hemolysis is seen --> smear has been reviewed --> hgb trend 9.3-->11.1-->9.6--->9.9-->8.6-->8.5-->8.7 # Leukocytosis/elevated white blood cell count, unspecified likely related to steroid meds --> have reviewed peripheral smear and bandemia/neutrophilia noted --> continue antibiotics if they have been started by ID team, zosyn --> monitor for resolution --> wbc trend 14-->18-->24.3-->17.3-->17-->12.6-->11.4 # COPD exacerbation with asp pna --> has been given steriods --> per id for aspiration prec on zosyn --> rochelle/vanc # Hypercapneic respiratory failure -->s/p trach/vent # S/p cardiac arrest in the ED # CHF # HTN # Diabetes # DNR status # Dysphagia with NG++ Time of note does not correspond to when patient was seen. Greatly appreciate consultation. Subjective Allergies: Coded Allergies: No Known Allergies (Unverified , 06/05/18) Subjective 02/01: no events to report, plt is lower, weaning trial initiated with mack gray rn, hiv neg 02/04: icu, wbc elevated, on abx 02/05: remains on vent, fighting vent, on abx remains on lovenox, on steriods 02/06: icu, on vent, vs stable, no sob or respiratory distress 02/07: remains in the icu, intubated, ng tube, weaning trial today 02/08: icu, restless and agitated, extubation pending, wbc improved 02/10: no vent, remains in icu, seen by pulm, extubated today, on bipap 02/11: extubated, on rochelle/vanc, labs have been reviewed 02/13: on glucerna, ngt, dopamine gtt 02/14: extubated, tracheostomy today, no fever or chills, no signs of distress, on abx 02/15: no fever, stable, egd with peg placement, no distress, discontinued eliquis, lovenox started Objective Objective Current Medications Medications (Trade) Dose Ordered Sig/Brittani Route PRN Reason Start Time Stop Time Status Last Admin Dose Admin Acetaminophen (Tylenol) 650 mg Q4H PRN NG FOR MILD PAIN 01/26/19 10:15 02/25/19 10:14 02/12/19 15:31 Acetylcysteine (Mucomyst) 100 mg Q4HRT [facility] 02/12/19 15:00 03/14/19 14:59 02/15/19 07:53 Albuterol/ Ipratropium (Albuterol/ Ipratropium) 3 ml Q4HRT [facility] 02/13/19 15:00 02/18/19 14:59 02/15/19 07:53 Chlorhexidine Gluconate (Renetta-Hex 2%) 1 applic DAILY@1999 TOPIC 02/07/19 20:00 03/09/19 19:59 02/14/19 20:48 Dextrose (Dextrose 50%) 25 ml Q30M PRN IV Hypoglycemia 01/26/19 10:30 02/25/19 10:29 02/13/19 23:33 Dextrose (Dextrose 50%) 50 ml Q30M PRN IV Hypoglycemia 01/26/19 10:30 02/25/19 10:29 02/10/19 23:34 Docusate Sodium (Colace) 100 mg BID NG 02/02/19 18:00 03/04/19 17:59 02/14/19 17:10 Dopamine HCl/ Dextrose 250 ml @ 0 mls/hr Q24H IV 02/06/19 09:15 03/08/19 09:14 02/13/19 03:36 Fentanyl Citrate 1000 mcg/Sodium Chloride 100 ml @ 0 mls/hr Q24H IV 02/10/19 20:30 02/17/19 20:29 02/12/19 03:21 Haloperidol Lactate 0.5 mg/ Dextrose 55.1 ml @ 220.4 mls/ hr Q8H PRN IVPB Agitation 02/10/19 14:15 03/12/19 14:14 02/13/19 00:05 Hydralazine HCl (Apresoline) 25 mg Q6H PRN NG For High Blood Pressure 02/07/19 17:15 03/06/19 16:59 Hydromorphone HCl (Dilaudid) 0.5 mg Q4H PRN IVP For Pain 02/10/19 14:15 02/17/19 14:14 02/13/19 02:03 Insulin Aspart (NovoLOG) Q6HR SUBQ 02/11/19 13:00 03/13/19 12:59 02/11/19 13:02 Lorazepam (Ativan 2mg/ml 1ml) 0.5 mg Q2H PRN IV ANXIETY 02/11/19 16:30 02/18/19 16:29 02/15/19 00:20 Meropenem 2 gm/ Sodium Chloride 110 ml @ 220 mls/hr Q8HR IVPB 02/10/19 22:00 02/21/19 23:59 02/15/19 06:29 Methylprednisolone Sodium Succinate (Solu-MEDROL) 30 mg DAILY IVP 02/14/19 09:00 03/12/19 20:59 02/15/19 08:38 Pantoprazole (Protonix) 40 mg Q12HR IVP 02/03/19 21:00 02/25/19 10:59 02/15/19 08:38 Polyethylene Glycol (Miralax) 17 gm BEDTIME NG 02/07/19 21:00 03/03/19 20:59 02/14/19 20:48 Sodium Phosphate 15 mm/Sodium Chloride 280 ml @ 70.273 mls/ hr ONCE ONCE IVPB 02/15/19 10:30 02/15/19 14:29 Vancomycin HCl (Vanco rx to dose) 1 ea DAILY PRN MISC Per rx protocol 02/06/19 20:00 03/08/19 19:59 Vancomycin/Sodium Chloride 275 ml @ 183.333 mls/hr Q12H IVPB 02/15/19 16:00 02/20/19 15:59 Last 24 Hour Vital Signs Date Time Temp Pulse Resp B/P (MAP) Pulse Ox O2 Delivery O2 Flow Rate FiO2 02/15/19 08:30 69 16 110/51 (70) 100 02/15/19 08:00 97.4 77 16 121/55 (77) 100 02/15/19 08:00 30 02/15/19 07:53 72 16 100 Mechanical Ventilator 30 82 16 30 02/15/19 07:00 80 20 130/121 (124) 100 02/15/19 06:00 80 20 144/121 (129) 100 02/15/19 05:30 82 21 137/60 (85) 02/15/19 05:14 77 16 30 02/15/19 05:00 83 18 149/68 (95) 100 02/15/19 04:30 82 21 134/75 (94) 100 02/15/19 04:00 98.0 83 18 120/104 (109) 100 02/15/19 04:00 84 02/15/19 04:00 Mechanical Ventilator 02/15/19 04:00 30 02/15/19 03:30 81 16 113/61 (78) 100 02/15/19 03:28 73 16 100 Mechanical Ventilator 30 75 16 02/15/19 03:00 76 16 137/69 (91) 100 02/15/19 02:30 79 17 124/65 (84) 100 02/15/19 02:00 79 16 141/89 (106) 100 02/15/19 01:30 80 18 130/76 (94) 100 02/15/19 01:15 69 16 30 02/15/19 01:00 72 16 100/63 (75) 02/15/19 00:30 80 17 91/61 (71) 98 02/15/19 00:06 87 16 99 Mechanical Ventilator 30 85 16 02/15/19 00:00 86 02/15/19 00:00 98.5 82 20 125/79 (94) 98 02/15/19 00:00 Mechanical Ventilator 02/14/19 23:30 80 17 114/91 (99) 98 02/14/19 23:00 70 15 100/62 (75) 98 02/14/19 22:00 78 15 121/55 (77) 100 02/14/19 21:52 89 21 143/55 (84) 98 02/14/19 21:28 70 16 30 02/14/19 21:00 77 17 124/110 (115) 96 02/14/19 20:30 75 18 100/64 (76) 96 02/14/19 20:06 80 16 30 02/14/19 20:00 Mechanical Ventilator 02/14/19 20:00 71 02/14/19 20:00 98.0 73 19 126/83 (97) 94 02/14/19 20:00 30 02/14/19 19:50 84 19 95 Mechanical Ventilator 84 19 02/14/19 19:00 82 19 163/84 (110) 02/14/19 18:00 87 21 157/80 (105) 91 02/14/19 17:00 90 19 142/77 (98) 98 02/14/19 16:41 84 19 30 02/14/19 16:00 89 02/14/19 16:00 77 22 157/76 (103) 96 02/14/19 16:00 30 02/14/19 15:10 87 17 95 Mechanical Ventilator 30 81 21 30 02/14/19 15:00 Mechanical Ventilator 02/14/19 15:00 97.5 78 22 155/71 (99) 97 02/14/19 14:00 86 19 142/59 (86) 98 02/14/19 13:10 86 18 30 02/14/19 13:00 86 23 135/82 (99) 92 02/14/19 12:00 30 02/14/19 12:00 97.3 77 23 138/73 (94) 95 02/14/19 12:00 80 02/14/19 11:19 83 17 96 Mechanical Ventilator 30 87 20 30 02/14/19 11:00 85 19 142/59 (86) 02/14/19 10:00 73 20 139/75 (96) 97 02/14/19 09:15 139/75 02/14/19 09:00 83 21 139/75 (96) 02/14/19 08:46 80 17 30 02/14/19 08:42 95 02/14/19 08:40 30 02/14/19 08:00 87 17 142/73 (96) 02/14/19 08:00 77 02/14/19 08:00 Mechanical Ventilator 02/14/19 08:00 30 02/14/19 07:07 80 16 97 Mechanical Ventilator 30 80 16 30 02/14/19 07:00 78 16 154/73 (100) 95 02/14/19 06:00 98.5 85 17 130/83 (99) 100 02/14/19 05:30 84 16 146/99 (115) 100 02/14/19 05:00 89 15 133/78 (96) 100 02/14/19 04:59 84 18 30 02/14/19 04:00 97.8 84 18 130/72 (91) 96 02/14/19 04:00 Mechanical Ventilator 02/14/19 04:00 30 02/14/19 03:53 81 18 142/64 (90) 88 02/14/19 03:30 90 20 145/95 (112) 96 02/14/19 03:01 84 02/14/19 03:00 91 15 105/85 (92) 96 02/14/19 03:00 105/85 02/14/19 02:58 79 17 99 Mechanical Ventilator 30 89 16 30 02/14/19 02:30 80 15 123/109 (114) 81 02/14/19 02:00 87 17 120/88 (99) 96 02/14/19 02:00 120/88 02/14/19 01:30 86 17 138/103 (115) 82 02/14/19 01:16 87 16 30 02/14/19 01:00 85 17 116/70 (85) 93 02/14/19 01:00 116/70 02/14/19 00:30 85 19 126/60 (82) 99 02/14/19 00:07 97.8 89 18 113/94 (100) 99 02/14/19 00:00 30 02/14/19 00:00 Mechanical Ventilator 02/14/19 00:00 85 16 100 02/14/19 00:00 113/94 02/13/19 23:30 80 17 155/77 (103) 100 02/13/19 23:25 83 18 152/77 (102) 99 02/13/19 23:09 88 16 100 Mechanical Ventilator 30 91 16 30 02/13/19 23:03 88 02/13/19 23:00 74/35 02/13/19 23:00 83 12 74/35 (48) 96 02/13/19 22:30 82 16 104/60 (75) 96 02/13/19 22:00 92/58 02/13/19 22:00 80 9 92/58 (69) 100 02/13/19 21:30 81 17 117/61 (79) 93 02/13/19 21:21 81 17 30 02/13/19 21:00 85 18 116/63 (80) 95 02/13/19 21:00 116/63 02/13/19 20:30 89 17 126/81 (96) 98 02/13/19 20:30 18 Mechanical Ventilator 30 02/13/19 20:00 30 02/13/19 20:00 98.6 97 18 124/66 (85) 100 02/13/19 20:00 124/66 02/13/19 20:00 Mechanical Ventilator 02/13/19 19:30 96 13 108/91 (97) 100 02/13/19 19:24 95 02/13/19 19:00 96 17 114/85 (95) 100 02/13/19 19:00 114/85 02/13/19 18:59 91 18 100 Mechanical Ventilator 30 95 17 30 02/13/19 18:30 83 18 119/28 (58) 100 02/13/19 18:00 122/96 02/13/19 18:00 88 16 122/96 (105) 100 02/13/19 17:30 94 16 130/71 (90) 100 02/13/19 17:00 98 16 125/77 (93) 100 02/13/19 17:00 125/77 02/13/19 16:31 92 17 30 02/13/19 16:30 96 16 109/93 (98) 100 02/13/19 16:00 30 02/13/19 16:00 98.9 93 16 94/61 (72) 100 02/13/19 16:00 Mechanical Ventilator 02/13/19 16:00 94/61 02/13/19 16:00 93 02/13/19 15:30 92 16 120/87 (98) 100 02/13/19 15:28 90 16 100 Mechanical Ventilator 30 91 16 30 02/13/19 15:00 90 16 116/93 (101) 100 02/13/19 15:00 116/93 02/13/19 14:30 86 16 109/92 (98) 100 02/13/19 14:00 84 15 109/92 (98) 100 02/13/19 14:00 109/92 02/13/19 13:30 91 17 101/79 (86) 100 02/13/19 13:00 79 16 120/50 (73) 100 02/13/19 13:00 120/51 02/13/19 12:54 92 17 30 02/13/19 12:30 92 22 127/76 (93) 100 02/13/19 12:24 111/89 02/13/19 12:00 99.0 89 18 111/89 (96) 100 02/13/19 12:00 111/89 02/13/19 12:00 30 02/13/19 12:00 90 02/13/19 12:00 Mechanical Ventilator 02/13/19 11:30 90 18 126/71 (89) 100 02/13/19 11:00 88 16 100 Mechanical Ventilator 30 97 16 30 02/13/19 11:00 91 16 98/81 (87) 100 02/13/19 11:00 113/74 02/13/19 10:30 88 18 109/68 (82) 100 02/13/19 10:00 87 17 111/99 (103) 100 02/13/19 10:00 111/99 Intake and Output 02/14/19 02/15/19 18:59 06:59 Intake Total 861.666 ml 660.000 ml Output Total 1370 ml 1050 ml Balance -508.334 ml -390.000 ml Intake Free Water 50 ml 50 ml IV Total 586.666 ml 385.000 ml Tube Feeding 225 ml 225 ml Output Urine Total 1370 ml 1050 ml Labs Test 02/13/19 04:20 02/14/19 03:40 02/14/19 09:40 02/14/19 12:49 White Blood Count 14.7 K/UL (4.8-10.8) 12.6 K/UL (4.8-10.8) Red Blood Count 2.92 M/UL (4.70-6.10) 2.83 M/UL (4.70-6.10) Hemoglobin 8.7 G/DL (14.2-18.0) 8.5 G/DL (14.2-18.0) Hematocrit 28.4 % (42.0-52.0) 27.1 % (42.0-52.0) Mean Corpuscular Volume 97 FL (80-99) 96 FL (80-99) Mean Corpuscular Hemoglobin 29.9 PG (27.0-31.0) 30.0 PG (27.0-31.0) Mean Corpuscular Hemoglobin Concent 30.8 G/DL (32.0-36.0) 31.4 G/DL (32.0-36.0) Red Cell Distribution Width 15.1 % (11.6-14.8) 14.9 % (11.6-14.8) Platelet Count 96 K/UL (150-450) 109 K/UL (150-450) Mean Platelet Volume 6.5 FL (6.5-10.1) 6.8 FL (6.5-10.1) Neutrophils (%) (Auto) % (45.0-75.0) % (45.0-75.0) Lymphocytes (%) (Auto) % (20.0-45.0) % (20.0-45.0) Monocytes (%) (Auto) % (1.0-10.0) % (1.0-10.0) Eosinophils (%) (Auto) % (0.0-3.0) % (0.0-3.0) Basophils (%) (Auto) % (0.0-2.0) % (0.0-2.0) Differential Total Cells Counted 100 100 Neutrophils % (Manual) 89 % (45-75) 94 % (45-75) Lymphocytes % (Manual) 5 % (20-45) 4 % (20-45) Monocytes % (Manual) 6 % (1-10) 2 % (1-10) Eosinophils % (Manual) 0 % (0-3) 0 % (0-3) Basophils % (Manual) 0 % (0-2) 0 % (0-2) Band Neutrophils 0 % (0-8) 0 % (0-8) Platelet Estimate Decreased Decreased Platelet Morphology Normal Normal Hypochromasia 2+ Anisocytosis 1+ Sodium Level 143 MMOL/L (136-145) Potassium Level 3.7 MMOL/L (3.5-5.1) Chloride Level 103 MMOL/L (98-107) Carbon Dioxide Level 39 MMOL/L (21-32) Anion Gap 1 mmol/L (5-15) Blood Urea Nitrogen 17 mg/dL (7-18) Creatinine 0.8 MG/DL (0.55-1.30) Estimat Glomerular Filtration Rate mL/min (>60) Glucose Level 84 MG/DL (74-106) Calcium Level 8.6 MG/DL (8.5-10.1) Arterial Blood pH 7.452 (7.350-7.450) Arterial Blood Partial Pressure CO2 57.5 mmHg (35.0-45.0) Arterial Blood Partial Pressure O2 69.9 mmHg (75.0-100.0) Arterial Blood HCO3 39.2 mmol/L (22.0-26.0) Arterial Blood Oxygen Saturation 93.7 % (95-100) Arterial Blood Base Excess 13.7 (-2-2) Delon Test Positive Activated Partial Thromboplast Time 24 SEC (23-33) Test 02/15/19 03:24 White Blood Count 11.4 K/UL (4.8-10.8) Red Blood Count 2.95 M/UL (4.70-6.10) Hemoglobin 8.7 G/DL (14.2-18.0) Hematocrit 28.5 % (42.0-52.0) Mean Corpuscular Volume 97 FL (80-99) Mean Corpuscular Hemoglobin 29.5 PG (27.0-31.0) Mean Corpuscular Hemoglobin Concent 30.5 G/DL (32.0-36.0) Red Cell Distribution Width 14.9 % (11.6-14.8) Platelet Count 103 K/UL (150-450) Mean Platelet Volume 6.5 FL (6.5-10.1) Neutrophils (%) (Auto) % (45.0-75.0) Lymphocytes (%) (Auto) % (20.0-45.0) Monocytes (%) (Auto) % (1.0-10.0) Eosinophils (%) (Auto) % (0.0-3.0) Basophils (%) (Auto) % (0.0-2.0) Prothrombin Time 10.7 SEC (9.30-11.50) Prothromb Time International Ratio 1.0 (0.9-1.1) Activated Partial Thromboplast Time 26 SEC (23-33) Sodium Level 144 MMOL/L (136-145) Potassium Level 4.0 MMOL/L (3.5-5.1) Chloride Level 104 MMOL/L (98-107) Carbon Dioxide Level 39 MMOL/L (21-32) Anion Gap 1 mmol/L (5-15) Blood Urea Nitrogen 18 mg/dL (7-18) Creatinine 0.9 MG/DL (0.55-1.30) Estimat Glomerular Filtration Rate mL/min (>60) Glucose Level 83 MG/DL (74-106) Calcium Level 8.9 MG/DL (8.5-10.1) Phosphorus Level 2.2 MG/DL (2.5-4.9) Magnesium Level 2.0 MG/DL (1.8-2.4) Total Bilirubin 0.7 MG/DL (0.2-1.0) Aspartate Amino Transf (AST/SGOT) 25 U/L (15-37) Alanine Aminotransferase (ALT/SGPT) 46 U/L (12-78) Alkaline Phosphatase 68 U/L (46-116) C-Reactive Protein, Quantitative 1.4 mg/dL (0.00-0.90) Pro-B-Type Natriuretic Peptide 724 pg/mL (0-125) Total Protein 5.0 G/DL (6.4-8.2) Albumin 2.3 G/DL (3.4-5.0) Globulin 2.7 g/dL Albumin/Globulin Ratio 0.9 (1.0-2.7) Vancomycin Level Trough 33.9 ug/mL (5.0-12.0) Height (Feet): 5 Height (Inches): 10.00 Weight (Pounds): 164 Objective General: no bleeding or chills Head: normocephalic, atraumatic Neck: supple ++ NG Respiratory: generally reduced bs, o++ trach Cardiovascular: tachycardia, HS1, HS2, RRR Gastrointestinal: non tender, soft Musculoskeletal: normal inspection Neurologic: sedated on ventilator Skin: no rash, palpation normal Conrado Morel MD Feb 15, 2019 09:47
--- NOTE | 2019-02-15 09:50 | NUR ---
RESPIRATORY NOTE: Pt placed on CPAP of 6 as ordered. Pt not getting volumes, RSBI above >100. Pt became anxious. Will try again after 30 mins.
--- NOTE | 2019-02-15 10:00 | NUR ---
NURSE NOTES: RT at bedside attempting weaning pt from vent however pt is too restless, moving around in bed, attempting to reach for the trach. Per RT, will reattempt again later today.
--- NOTE | 2019-02-15 10:20 | NUR ---
RESPIRATORY NOTE: Attempted to wean pt again. Pt did not tolerate again. Pt still wasn't getting volumes and still anxious. GENNY Rodrigues at bedside. Pt placed back to AC 16 VT 500 FiO2 30% PEEP +5. Will continue to monitor.
[2019-02-15] MEDS ORDERED: Sodium Phosphate 15 MM in NS 275 ML IVPB ONE (10:30)
[2019-02-15] MEDS ORDERED: D5NS 1000ml IV ONE (10:31)
[2019-02-15] MEDS ORDERED: Sterile Water Irrig 1000ml IRRIG ONE (10:31)
[2019-02-15] MEDS ORDERED: Tubing IV Secondary IV ONE (10:31)
--- NOTE | 2019-02-15 11:12 | NUR ---
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 98.0 HR 81 RR 18 B/P 120/64 AC 16 TV 500 FIO2 30% PEEP 5 BNP 724 WBC 11.4 IS: VANCO IV MEROPENEM IV SOLU MEDROL IV PROTONIX IV PEG PLACEMENT ICU STATUS
--- NOTE | 2019-02-15 11:13 | Diagnostic Imaging Report ---
APPROVED REPORT CPT Code: 16952 Present Symptoms Upper Extremity Edema: Bilateral RIGHT UPPER EXTREMITY: Venous imaging reveals acute thrombus in the internal jugular vein. The remaining segments are within normal limits. There is no evidence of thrombus within the subclavian, axillary, brachial veins. The basilic vein was patent. The cephalic vein was not well visualized. LEFT UPPER EXTREMITY: Venous imaging reveals patency of the internal jugular, subclavian, axillary and brachial veins. Doppler indicates normal spontaneous flow within these venous segments. The radial and ulnar veins were not well vusualized, due to bandages. The cephalic and basilic veins are also patent. GENNY Meyers was notified of abnormal results at 0940 hours.
--- NOTE | 2019-02-15 11:17 | Diagnostic Imaging Report ---
APPROVED REPORT CPT Code: 18545 Vascular Symptoms Comments: Right sided neck Lump Doppler Spectral Velocity Analysis RightLeft Note: Imaging reveals acute thrombus in the internal jugular vein. RIGHT SIDE: CCA - Imaging reveals no significant plaque in the common carotid artery. ICA The Doppler signal indicates the degree of stenosis is minimal (20-30%) in the internal carotid artery, and (20%) in the external carotid artery. LEFT SIDE: CCA - Imaging reveals no significant plaque in the common carotid artery. ICA The Doppler signal indicates the degree of stenosis is minimal (20-30%) in the internal carotid artery, and (10%) in the external carotid artery. SUBCLAVIANS/VERTEBRALS - Imaging reveals both subclavians and vertebral arteries to be patent, without evidence of stenosis or steal. GENNY Paul was notified of abnormal results at 0900 hours.
--- NOTE | 2019-02-15 11:20 | Nephrology Progress Note ---
Assessment/Plan Problem List: (1) Cardiac arrest (2) Prerenal azotemia (3) Hypernatremia (4) Hypoalbuminemia (5) HTN (hypertension) Assessment Now trached Pre renal Azotemia due to - Dehydration- - High Protein catabolic state as result of Doxy and steroids HyperNatremia due to free water deficit HypoAlbuminemia Plan Sugg: Due PEG today Tracheostomy 02/12 keep bp in check stop D5W IV fluid Avoid Nephrotoxics Monitor lytes per consultants Subjective ROS Limited/Unobtainable: Yes Objective Objective Last 24 Hour Vital Signs Date Time Temp Pulse Resp B/P (MAP) Pulse Ox O2 Delivery O2 Flow Rate FiO2 02/15/19 11:02 70 17 100 Mechanical Ventilator 30 70 17 30 02/15/19 10:00 81 17 134/72 (92) 100 02/15/19 09:00 73 16 140/70 (93) 100 02/15/19 08:48 65 16 30 02/15/19 08:30 69 16 110/51 (70) 100 02/15/19 08:00 Mechanical Ventilator 02/15/19 08:00 79 02/15/19 08:00 97.4 77 16 121/55 (77) 100 02/15/19 08:00 30 02/15/19 07:53 72 16 100 Mechanical Ventilator 30 82 16 30 02/15/19 07:00 80 20 130/121 (124) 100 02/15/19 06:00 80 20 144/121 (129) 100 02/15/19 05:30 82 21 137/60 (85) 02/15/19 05:14 77 16 30 02/15/19 05:00 83 18 149/68 (95) 100 02/15/19 04:30 82 21 134/75 (94) 100 02/15/19 04:00 98.0 83 18 120/104 (109) 100 02/15/19 04:00 84 02/15/19 04:00 Mechanical Ventilator 02/15/19 04:00 30 02/15/19 03:30 81 16 113/61 (78) 100 02/15/19 03:28 73 16 100 Mechanical Ventilator 30 75 16 02/15/19 03:00 76 16 137/69 (91) 100 02/15/19 02:30 79 17 124/65 (84) 100 02/15/19 02:00 79 16 141/89 (106) 100 02/15/19 01:30 80 18 130/76 (94) 100 02/15/19 01:15 69 16 30 02/15/19 01:00 72 16 100/63 (75) 02/15/19 00:30 80 17 91/61 (71) 98 02/15/19 00:06 87 16 99 Mechanical Ventilator 30 85 16 02/15/19 00:00 86 02/15/19 00:00 98.5 82 20 125/79 (94) 98 02/15/19 00:00 Mechanical Ventilator 02/14/19 23:30 80 17 114/91 (99) 98 02/14/19 23:00 70 15 100/62 (75) 98 02/14/19 22:00 78 15 121/55 (77) 100 02/14/19 21:52 89 21 143/55 (84) 98 02/14/19 21:28 70 16 30 02/14/19 21:00 77 17 124/110 (115) 96 02/14/19 20:30 75 18 100/64 (76) 96 02/14/19 20:06 80 16 30 02/14/19 20:00 Mechanical Ventilator 02/14/19 20:00 71 02/14/19 20:00 98.0 73 19 126/83 (97) 94 02/14/19 20:00 30 02/14/19 19:50 84 19 95 Mechanical Ventilator 84 19 02/14/19 19:00 82 19 163/84 (110) 02/14/19 18:00 87 21 157/80 (105) 91 02/14/19 17:00 90 19 142/77 (98) 98 02/14/19 16:41 84 19 30 02/14/19 16:00 89 02/14/19 16:00 77 22 157/76 (103) 96 02/14/19 16:00 30 02/14/19 15:10 87 17 95 Mechanical Ventilator 30 81 21 30 02/14/19 15:00 Mechanical Ventilator 02/14/19 15:00 97.5 78 22 155/71 (99) 97 02/14/19 14:00 86 19 142/59 (86) 98 02/14/19 13:10 86 18 30 02/14/19 13:00 86 23 135/82 (99) 92 02/14/19 12:00 30 02/14/19 12:00 97.3 77 23 138/73 (94) 95 02/14/19 12:00 80 02/14/19 11:19 83 17 96 Mechanical Ventilator 30 87 20 30 Intake and Output 02/14/19 02/15/19 18:59 06:59 Intake Total 861.666 ml 660.000 ml Output Total 1370 ml 1050 ml Balance -508.334 ml -390.000 ml Intake Free Water 50 ml 50 ml IV Total 586.666 ml 385.000 ml Tube Feeding 225 ml 225 ml Output Urine Total 1370 ml 1050 ml Laboratory Tests 02/14/19 12:49: Activated Partial Thromboplast Time 24 02/15/19 03:24: Activated Partial Thromboplast Time 26, White Blood Count 11.4H, Red Blood Count 2.95L, Hemoglobin 8.7L, Hematocrit 28.5L, Mean Corpuscular Volume 97, Mean Corpuscular Hemoglobin 29.5, Mean Corpuscular Hemoglobin Concent 30.5L, Red Cell Distribution Width 14.9H, Platelet Count 103L, Mean Platelet Volume 6.5 , Neutrophils (%) (Auto) , Lymphocytes (%) (Auto) , Monocytes (%) (Auto) , Eosinophils (%) (Auto) , Basophils (%) (Auto) , Prothrombin Time 10.7, Prothromb Time International Ratio 1.0, Sodium Level 144, Potassium Level 4.0, Chloride Level 104, Carbon Dioxide Level 39H, Anion Gap 1L, Blood Urea Nitrogen 18, Creatinine 0.9, Estimat Glomerular Filtration Rate , Glucose Level 83, Calcium Level 8.9, Phosphorus Level 2.2L, Magnesium Level 2.0, Total Bilirubin 0.7, Aspartate Amino Transf (AST/SGOT) 25, Alanine Aminotransferase (ALT/SGPT) 46, Alkaline Phosphatase 68, C-Reactive Protein, Quantitative 1.4H, Pro-B-Type Natriuretic Peptide 724H, Total Protein 5.0L, Albumin 2.3L, Globulin 2.7, Albumin/Globulin Ratio 0.9L, Vancomycin Level Trough 33.9H Height (Feet): 5 Height (Inches): 10.00 Weight (Pounds): 164 General Appearance: no apparent distress EENT: other - vented Cardiovascular: normal rate Respiratory/Chest: decreased breath sounds Abdomen: distended Objective no change Felipe Salmon MD Feb 15, 2019 11:20
--- NOTE | 2019-02-15 11:30 | Pre-Procedure Note/Attestation ---
Pre-Procedure Note/Attestation Complete Prior to Procedure Planned Procedure: not applicable Procedure Narrative: EGD/peg Indications for Procedure Pre-Operative Diagnosis: dysphagia Attestation I attest that I discussed the nature of the procedure; its benefits; risks and complications; and alternatives (and the risks and benefits of such alternatives ), prior to the procedure, with the patient (or the patient's legal brand representative). I attest that, if there was a reasonable possibility of needing a blood transfusion, the patient (or the patient's legal brand representative) was given the [facility] standardized written summary, pursuant to the [place] Blood Safety Act ([place] Health and Safety Code # 1645, as amended). I attest that I re-evaluated the patient just prior to the surgery and that there has been no change in the patient's H&P, except as documented below: Jaylen Aleman MD Feb 15, 2019 11:30
--- NOTE | 2019-02-15 12:19 | Anethesia Preoperative Eval ---
Anesthesia Pre-op PMH/ROS General Date of Evaluation: Feb 15, 2019 Time of Evaluation: 13:06 ASA Score: ASA 4 Mallampati Score Class I : Soft palate, uvula, fauces, pillars visible Class II: Soft palate, uvula, fauces visible Class III: Soft palate, base of uvula visible Class IV: Only hard plate visible Mallampati Classification: Class II Surgeon: Ash Diagnosis: Resp failure Surgical Procedure: PEG insertion Social History: smoking Family History: no anesthesia problems Allergies: Coded Allergies: No Known Allergies (Unverified , 06/05/18) Patient NPO?: Yes NPO Date: Feb 15, 2019 NPO Time: 00:00 Past Medical History Cardiovascular: Reports: HTN, CAD, OR; Denies: valve dz, arrhythmia, other Pulmonary: Reports: asthma, COPD, other - respiratory failure, trach/vent dependent. aspiration pneumonia; Denies: VAHID Gastrointestinal/Genitourinary: Denies: GERD, CRI, ESRD, other Neurologic/Psychiatric: Reports: dementia, depression/anxiety; Denies: CVA, TIA, other Endocrine: Denies: DM, hypothyroidism, steroids, other HEENT: Denies: cataract (L), cataract (R), glaucoma, KOOTENAI (L), KOOTENAI (R), other Hematology/Immune: Reports: anemia; Denies: DVT, bleeding disorder, other Musculoskeletal/Integumentary: Denies: OA, RA, DJD, DDD, edema, other PMH Narrative: as noted above PSxH Narrative: see H& P Anesthesia Pre-op Phys. Exam Physician Exam Last Vital Signs Date Time Temp Pulse Resp B/P (MAP) Pulse Ox O2 Delivery O2 Flow Rate FiO2 02/15/19 12:00 30 02/15/19 12:00 Mechanical Ventilator 02/15/19 11:02 70 17 100 70 17 02/15/19 11:00 125/96 (106) 02/15/19 08:00 97.4 Constitutional: other - obtunded, agitated when aroused Neurologic: other - agitated, 2 pt restraints Cardiovascular: RRR Respiratory: other - trach in situ, see ICU notes for vent settings Gastrointestinal: other - distended abdomen Airway Exam Mallampati Score: Class II MO: limited Neck: stiff TMD: > 3 FB ROM: limited Teeth: other - unable to assess Dentures: upper, lower Anesthesia Pre-op A/P Labs Hematology Test 02/15/19 03:24 White Blood Count 11.4 K/UL (4.8-10.8) H Red Blood Count 2.95 M/UL (4.70-6.10) L Hemoglobin 8.7 G/DL (14.2-18.0) L Hematocrit 28.5 % (42.0-52.0) L Mean Corpuscular Volume 97 FL (80-99) Mean Corpuscular Hemoglobin 29.5 PG (27.0-31.0) Mean Corpuscular Hemoglobin Concent 30.5 G/DL (32.0-36.0) L Red Cell Distribution Width 14.9 % (11.6-14.8) H Platelet Count 103 K/UL (150-450) L Mean Platelet Volume 6.5 FL (6.5-10.1) Neutrophils (%) (Auto) % (45.0-75.0) Lymphocytes (%) (Auto) % (20.0-45.0) Monocytes (%) (Auto) % (1.0-10.0) Eosinophils (%) (Auto) % (0.0-3.0) Basophils (%) (Auto) % (0.0-2.0) Coagulation Test 02/14/19 12:49 02/15/19 03:24 Activated Partial Thromboplast Time 24 SEC (23-33) 26 SEC (23-33) Prothrombin Time 10.7 SEC (9.30-11.50) Prothromb Time International Ratio 1.0 (0.9-1.1) Chemistry Test 02/15/19 03:24 Sodium Level 144 MMOL/L (136-145) Potassium Level 4.0 MMOL/L (3.5-5.1) Chloride Level 104 MMOL/L (98-107) Carbon Dioxide Level 39 MMOL/L (21-32) H Anion Gap 1 mmol/L (5-15) L Blood Urea Nitrogen 18 mg/dL (7-18) Creatinine 0.9 MG/DL (0.55-1.30) Estimat Glomerular Filtration Rate mL/min (>60) Glucose Level 83 MG/DL (74-106) Calcium Level 8.9 MG/DL (8.5-10.1) Phosphorus Level 2.2 MG/DL (2.5-4.9) L Magnesium Level 2.0 MG/DL (1.8-2.4) Total Bilirubin 0.7 MG/DL (0.2-1.0) Aspartate Amino Transf (AST/SGOT) 25 U/L (15-37) Alanine Aminotransferase (ALT/SGPT) 46 U/L (12-78) Alkaline Phosphatase 68 U/L (46-116) C-Reactive Protein, Quantitative 1.4 mg/dL (0.00-0.90) H Pro-B-Type Natriuretic Peptide 724 pg/mL (0-125) H Total Protein 5.0 G/DL (6.4-8.2) L Albumin 2.3 G/DL (3.4-5.0) L Globulin 2.7 g/dL Albumin/Globulin Ratio 0.9 (1.0-2.7) L Studies Pre-op Studies: EKG - NSR with ant infarct, echo - NL LVEF Risk Assessment & Plan Assessment: ASA 4, ok to proceed Plan: MAC Status Change Before Surgery: No Pre-Antibiotics Given Within 1 Hr of Incision: Kami López CRNA Feb 15, 2019 12:19
--- NOTE | 2019-02-15 12:43 | NUR ---
NURSE NOTES: Pt was given Ativan per PRN order at 1107 for increased restlessness/anxiety. Pt is currently resting, opens eyes to touch. Remains afebrile T 98F axillary. Saenz continues to drain 60-120ml/hourly clear/yellow urine. NaPhos is being infused per Dr Salmon's order to replace P=2.2L from this AM's lab result. GI medical lab assistant is at bedside, setting up for the EGD procedure. VS stable.
[2019-02-15] MEDS ORDERED: Propofol 200mg/20ml IV ONE (13:00)
--- NOTE | 2019-02-15 13:27 | Surgery Progress Note ---
Surgery Progress Note Subjective Procedure Performed tracheostomy bronchoscopy Additional Comments no acute events plan for PEG today cont to hold eliquis until after peg complete. can resume after Objective Last 24 Hour Vital Signs Date Time Temp Pulse Resp B/P (MAP) Pulse Ox O2 Delivery O2 Flow Rate FiO2 02/15/19 13:00 74 16 105/55 (72) 100 02/15/19 12:00 30 02/15/19 12:00 Mechanical Ventilator 02/15/19 12:00 80 02/15/19 12:00 98.0 75 16 110/56 (74) 100 02/15/19 11:02 70 17 100 Mechanical Ventilator 30 70 17 30 02/15/19 11:00 73 23 125/96 (106) 100 02/15/19 10:00 81 17 134/72 (92) 100 02/15/19 09:00 73 16 140/70 (93) 100 02/15/19 08:48 65 16 30 02/15/19 08:30 69 16 110/51 (70) 100 02/15/19 08:00 Mechanical Ventilator 02/15/19 08:00 79 02/15/19 08:00 97.4 77 16 121/55 (77) 100 02/15/19 08:00 30 02/15/19 07:53 72 16 100 Mechanical Ventilator 30 82 16 30 02/15/19 07:00 80 20 130/121 (124) 100 02/15/19 06:00 80 20 144/121 (129) 100 02/15/19 05:30 82 21 137/60 (85) 02/15/19 05:14 77 16 30 02/15/19 05:00 83 18 149/68 (95) 100 02/15/19 04:30 82 21 134/75 (94) 100 02/15/19 04:00 98.0 83 18 120/104 (109) 100 02/15/19 04:00 84 02/15/19 04:00 Mechanical Ventilator 02/15/19 04:00 30 02/15/19 03:30 81 16 113/61 (78) 100 02/15/19 03:28 73 16 100 Mechanical Ventilator 30 75 16 02/15/19 03:00 76 16 137/69 (91) 100 02/15/19 02:30 79 17 124/65 (84) 100 02/15/19 02:00 79 16 141/89 (106) 100 02/15/19 01:30 80 18 130/76 (94) 100 02/15/19 01:15 69 16 30 02/15/19 01:00 72 16 100/63 (75) 02/15/19 00:30 80 17 91/61 (71) 98 02/15/19 00:06 87 16 99 Mechanical Ventilator 30 85 16 02/15/19 00:00 86 02/15/19 00:00 98.5 82 20 125/79 (94) 98 02/15/19 00:00 Mechanical Ventilator 02/14/19 23:30 80 17 114/91 (99) 98 02/14/19 23:00 70 15 100/62 (75) 98 02/14/19 22:00 78 15 121/55 (77) 100 02/14/19 21:52 89 21 143/55 (84) 98 02/14/19 21:28 70 16 30 02/14/19 21:00 77 17 124/110 (115) 96 02/14/19 20:30 75 18 100/64 (76) 96 02/14/19 20:06 80 16 30 02/14/19 20:00 Mechanical Ventilator 02/14/19 20:00 71 02/14/19 20:00 98.0 73 19 126/83 (97) 94 02/14/19 20:00 30 02/14/19 19:50 84 19 95 Mechanical Ventilator 84 19 02/14/19 19:00 82 19 163/84 (110) 02/14/19 18:00 87 21 157/80 (105) 91 02/14/19 17:00 90 19 142/77 (98) 98 02/14/19 16:41 84 19 30 02/14/19 16:00 89 02/14/19 16:00 77 22 157/76 (103) 96 02/14/19 16:00 30 02/14/19 15:10 87 17 95 Mechanical Ventilator 30 81 21 30 02/14/19 15:00 Mechanical Ventilator 02/14/19 15:00 97.5 78 22 155/71 (99) 97 02/14/19 14:00 86 19 142/59 (86) 98 I&O Intake and Output 02/14/19 02/15/19 19:00 07:00 Intake Total 906.666 ml 725.000 ml Output Total 1350 ml 1050 ml Balance -443.334 ml -325.000 ml Intake Free Water 50 ml 50 ml IV Total 586.666 ml 495.000 ml Tube Feeding 270 ml 180 ml Output Urine Total 1350 ml 1050 ml Dressing: dry Wound: clean Cardiovascular: RSR Respiratory: clear Abdomen: soft, flat, non-tender, present bowel sounds Extremities: no tenderness, no cyanosis Laboratory Tests Test 02/15/19 03:24 White Blood Count 11.4 K/UL (4.8-10.8) H Red Blood Count 2.95 M/UL (4.70-6.10) L Hemoglobin 8.7 G/DL (14.2-18.0) L Hematocrit 28.5 % (42.0-52.0) L Mean Corpuscular Volume 97 FL (80-99) Mean Corpuscular Hemoglobin 29.5 PG (27.0-31.0) Mean Corpuscular Hemoglobin Concent 30.5 G/DL (32.0-36.0) L Red Cell Distribution Width 14.9 % (11.6-14.8) H Platelet Count 103 K/UL (150-450) L Mean Platelet Volume 6.5 FL (6.5-10.1) Neutrophils (%) (Auto) % (45.0-75.0) Lymphocytes (%) (Auto) % (20.0-45.0) Monocytes (%) (Auto) % (1.0-10.0) Eosinophils (%) (Auto) % (0.0-3.0) Basophils (%) (Auto) % (0.0-2.0) Prothrombin Time 10.7 SEC (9.30-11.50) Prothromb Time International Ratio 1.0 (0.9-1.1) Activated Partial Thromboplast Time 26 SEC (23-33) Sodium Level 144 MMOL/L (136-145) Potassium Level 4.0 MMOL/L (3.5-5.1) Chloride Level 104 MMOL/L (98-107) Carbon Dioxide Level 39 MMOL/L (21-32) H Anion Gap 1 mmol/L (5-15) L Blood Urea Nitrogen 18 mg/dL (7-18) Creatinine 0.9 MG/DL (0.55-1.30) Estimat Glomerular Filtration Rate mL/min (>60) Glucose Level 83 MG/DL (74-106) Calcium Level 8.9 MG/DL (8.5-10.1) Phosphorus Level 2.2 MG/DL (2.5-4.9) L Magnesium Level 2.0 MG/DL (1.8-2.4) Total Bilirubin 0.7 MG/DL (0.2-1.0) Aspartate Amino Transf (AST/SGOT) 25 U/L (15-37) Alanine Aminotransferase (ALT/SGPT) 46 U/L (12-78) Alkaline Phosphatase 68 U/L (46-116) C-Reactive Protein, Quantitative 1.4 mg/dL (0.00-0.90) H Pro-B-Type Natriuretic Peptide 724 pg/mL (0-125) H Total Protein 5.0 G/DL (6.4-8.2) L Albumin 2.3 G/DL (3.4-5.0) L Globulin 2.7 g/dL Albumin/Globulin Ratio 0.9 (1.0-2.7) L Vancomycin Level Trough 33.9 ug/mL (5.0-12.0) H Plan Problems: (1) Respiratory distress Assessment & Plan: 73-year-old male with acute respiratory decompensation requiring intubation and intensive care unit evaluation was on vent support. Patient was recently extubated but unfortunately is not tolerating expiration very well as he requires BiPAP persistently and if taken off desaturates. Given these findings tracheostomy is potentially indicated and agree with pulmonology team and medical team that patient may benefit from tracheostomy to allow for recovery. Will obtain consent from the patient's family and patient for tracheostomy placement in hopes to have patient able to be weaned rather than reintubated. Thank you for allowing me to participate patient's care will continue with recommendations s/p trach recovering wean vent as tolerated resume eliquis after peg completed and okay with GI will follow thank you Kris Blake Feb 15, 2019 13:27
--- NOTE | 2019-02-15 13:28 | Endoscopy Procedure Note ---
Endoscopy Procedure Note General Indication for Procedure: dysphagia Procedures Performed: EGD, PEG Operative Findings/Diagnosis: same Specimen: none Pt Tolerated Procedure Well: Yes Estimated Blood Loss: none Anesthesia Anesthesiologist: [place] Anesthesia: MAC Inserted Devices Implant(s) used?: No GI Core Measures 50 yrs or older w/o bx or poly: Not Applicable 10yrs. F/U recommended: Not Applicable Jaylen Aleman MD Feb 15, 2019 13:28
--- NOTE | 2019-02-15 13:55 | Immediate Post-Op Evaluation ---
Immediate Post-Op Evalulation Immediate Post-Op Evalulation Procedure: PEG insertion Date of Evaluation: Feb 15, 2019 Time of Evaluation: 13:30 IV Fluids: NS 20 ml Blood Pressure Systolic: 114 Blood Pressure Diastolic: 52 Pulse Rate: 75 Respiratory Rate: 12 O2 Sat by Pulse Oximetry: 100 Temperature (Fahrenheit): 97.5 Pain Score (1-10): 0 Nausea: No Vomiting: No Complications none Patient Status: reacts, ventilated, none - trach in situ Hydration Status: adequate Given Within 1 Hr of Incision: Kami López CRNA Feb 15, 2019 13:55
--- NOTE | 2019-02-15 14:00 | NUR ---
NURSE NOTES: EGD and PEG-placement procedures were done by Dr Aleman at bedside, accompanied by TRANSPORTATION SECURITY OFFICER for anesthesia. Pt tolerated procedure well. VS stable.
--- NOTE | 2019-02-15 15:00 | NUR ---
NURSE NOTES: Pt's son contacted the nurse's station and was updated on the pt's condition post EGD and PEG placement. Pt was seen by Dr White. MD was informed regarding case hardener's inquiry on possible down-grade/transfer of pt's status to step down unit. Per MD, pt is to remain under critical care observation in ICU until further vent-weaning is attempted post EGD over the weekend. Charge nurse is aware.
--- NOTE | 2019-02-15 15:05 | Infectious Diseases Prog Note ---
Assessment/Plan Problems: (1) Aspiration pneumonia Assessment & Plan: due to pseudomonas aeruginosa , continue meropenem with higher dose for two weeks , aspiration precaution . EOT 02/21/19 (2) Leukocytosis Assessment & Plan: PARTIALLY DUE TO STEROIDS , with no evidence rule out sepsis , repeated blood culture x2 is negative , continue meropenem and vancomycin empirically pending cultures . IJ line was removed. taper steroids (3) Acute exacerbation of chronic obstructive pulmonary disease (COPD) Assessment & Plan: S/P doxycycline , on steroids and nebulizer treatment as per pulmonary (4) Cardiac arrest Assessment & Plan: etiology ? cardiology eval to rule out cardiac sources and neurology eval to evaluate his brain condition and to rule out anoxic brain injury (5) Chronic hypercapnic respiratory failure Assessment & Plan: S/P cardiac arrest , S/P tracheostomy today after failing multiple weaning trials , pulmonary is following Subjective ROS Limited/Unobtainable: Yes Allergies: Coded Allergies: No Known Allergies (Unverified , 06/05/18) Subjective He was on ventilator , had tracheostomy on 02/12 , tolerating weaning trials now well , unresponsive to verbal commands, no fever or chills Objective Vital Signs Last 24 Hour Vital Signs Date Time Temp Pulse Resp B/P (MAP) Pulse Ox O2 Delivery O2 Flow Rate FiO2 02/15/19 13:55 75 12 100 02/15/19 13:02 78 16 100 Mechanical Ventilator 30 70 17 30 02/15/19 13:00 74 16 105/55 (72) 100 02/15/19 12:00 30 02/15/19 12:00 Mechanical Ventilator 02/15/19 12:00 80 02/15/19 12:00 98.0 75 16 110/56 (74) 100 02/15/19 11:02 70 17 100 Mechanical Ventilator 30 70 17 30 02/15/19 11:00 73 23 125/96 (106) 100 02/15/19 10:00 81 17 134/72 (92) 100 02/15/19 09:00 73 16 140/70 (93) 100 02/15/19 08:48 65 16 30 02/15/19 08:30 69 16 110/51 (70) 100 02/15/19 08:00 Mechanical Ventilator 02/15/19 08:00 79 02/15/19 08:00 97.4 77 16 121/55 (77) 100 02/15/19 08:00 30 02/15/19 07:53 72 16 100 Mechanical Ventilator 30 82 16 30 02/15/19 07:00 80 20 130/121 (124) 100 02/15/19 06:00 80 20 144/121 (129) 100 02/15/19 05:30 82 21 137/60 (85) 02/15/19 05:14 77 16 30 02/15/19 05:00 83 18 149/68 (95) 100 02/15/19 04:30 82 21 134/75 (94) 100 02/15/19 04:00 98.0 83 18 120/104 (109) 100 02/15/19 04:00 84 02/15/19 04:00 Mechanical Ventilator 02/15/19 04:00 30 02/15/19 03:30 81 16 113/61 (78) 100 02/15/19 03:28 73 16 100 Mechanical Ventilator 30 75 16 02/15/19 03:00 76 16 137/69 (91) 100 02/15/19 02:30 79 17 124/65 (84) 100 02/15/19 02:00 79 16 141/89 (106) 100 02/15/19 01:30 80 18 130/76 (94) 100 02/15/19 01:15 69 16 30 02/15/19 01:00 72 16 100/63 (75) 02/15/19 00:30 80 17 91/61 (71) 98 02/15/19 00:06 87 16 99 Mechanical Ventilator 30 85 16 02/15/19 00:00 86 02/15/19 00:00 98.5 82 20 125/79 (94) 98 02/15/19 00:00 Mechanical Ventilator 02/14/19 23:30 80 17 114/91 (99) 98 02/14/19 23:00 70 15 100/62 (75) 98 02/14/19 22:00 78 15 121/55 (77) 100 02/14/19 21:52 89 21 143/55 (84) 98 02/14/19 21:28 70 16 30 02/14/19 21:00 77 17 124/110 (115) 96 02/14/19 20:30 75 18 100/64 (76) 96 02/14/19 20:06 80 16 30 02/14/19 20:00 Mechanical Ventilator 02/14/19 20:00 71 02/14/19 20:00 98.0 73 19 126/83 (97) 94 02/14/19 20:00 30 02/14/19 19:50 84 19 95 Mechanical Ventilator 84 19 02/14/19 19:00 82 19 163/84 (110) 02/14/19 18:00 87 21 157/80 (105) 91 02/14/19 17:00 90 19 142/77 (98) 98 02/14/19 16:41 84 19 30 02/14/19 16:00 89 02/14/19 16:00 77 22 157/76 (103) 96 02/14/19 16:00 30 02/14/19 15:10 87 17 95 Mechanical Ventilator 30 81 21 30 Height (Feet): 5 Height (Inches): 10.00 Weight (Pounds): 164 General Appearance: WD/WN, no acute distress HEENT: normocephalic, atraumatic, anicteric, mucous membranes moist, PERRL, pharynx normal, supple, no JVD, status post trach Respiratory/Chest: chest wall non-tender, no respiratory distress, no accessory muscle use, decreased breath sounds Cardiovascular: normal peripheral pulses, normal rate, regular rhythm, no gallop/murmur, no JVD Abdomen: normal bowel sounds, soft, non tender, no organomegaly, non distended , no mass, no scars Genitourinary: normal external genitalia Extremities: no cyanosis, no clubbing Skin: no rash, no lesions Neurologic/Psychiatric: alert, oriented x 3, responsive Lymphatic: no neck adenopathy, no groin adenopathy Musculoskeletal: normal muscle bulk, no effusion Laboratory Tests Test 02/15/19 03:24 White Blood Count 11.4 K/UL (4.8-10.8) H Red Blood Count 2.95 M/UL (4.70-6.10) L Hemoglobin 8.7 G/DL (14.2-18.0) L Hematocrit 28.5 % (42.0-52.0) L Mean Corpuscular Volume 97 FL (80-99) Mean Corpuscular Hemoglobin 29.5 PG (27.0-31.0) Mean Corpuscular Hemoglobin Concent 30.5 G/DL (32.0-36.0) L Red Cell Distribution Width 14.9 % (11.6-14.8) H Platelet Count 103 K/UL (150-450) L Mean Platelet Volume 6.5 FL (6.5-10.1) Neutrophils (%) (Auto) % (45.0-75.0) Lymphocytes (%) (Auto) % (20.0-45.0) Monocytes (%) (Auto) % (1.0-10.0) Eosinophils (%) (Auto) % (0.0-3.0) Basophils (%) (Auto) % (0.0-2.0) Prothrombin Time 10.7 SEC (9.30-11.50) Prothromb Time International Ratio 1.0 (0.9-1.1) Activated Partial Thromboplast Time 26 SEC (23-33) Sodium Level 144 MMOL/L (136-145) Potassium Level 4.0 MMOL/L (3.5-5.1) Chloride Level 104 MMOL/L (98-107) Carbon Dioxide Level 39 MMOL/L (21-32) H Anion Gap 1 mmol/L (5-15) L Blood Urea Nitrogen 18 mg/dL (7-18) Creatinine 0.9 MG/DL (0.55-1.30) Estimat Glomerular Filtration Rate mL/min (>60) Glucose Level 83 MG/DL (74-106) Calcium Level 8.9 MG/DL (8.5-10.1) Phosphorus Level 2.2 MG/DL (2.5-4.9) L Magnesium Level 2.0 MG/DL (1.8-2.4) Total Bilirubin 0.7 MG/DL (0.2-1.0) Aspartate Amino Transf (AST/SGOT) 25 U/L (15-37) Alanine Aminotransferase (ALT/SGPT) 46 U/L (12-78) Alkaline Phosphatase 68 U/L (46-116) C-Reactive Protein, Quantitative 1.4 mg/dL (0.00-0.90) H Pro-B-Type Natriuretic Peptide 724 pg/mL (0-125) H Total Protein 5.0 G/DL (6.4-8.2) L Albumin 2.3 G/DL (3.4-5.0) L Globulin 2.7 g/dL Albumin/Globulin Ratio 0.9 (1.0-2.7) L Vancomycin Level Trough 33.9 ug/mL (5.0-12.0) H Current Medications Medications (Trade) Dose Ordered Sig/Brittani Route PRN Reason Start Time Stop Time Status Last Admin Dose Admin Acetaminophen (Tylenol) 650 mg Q4H PRN NG FOR MILD PAIN 01/26/19 10:15 02/25/19 10:14 02/12/19 15:31 Acetylcysteine (Mucomyst) 100 mg Q4HRT N 02/12/19 15:00 03/14/19 14:59 02/15/19 15:01 Albuterol/ Ipratropium (Albuterol/ Ipratropium) 3 ml Q4HRT N 02/13/19 15:00 02/18/19 14:59 02/15/19 15:02 Chlorhexidine Gluconate (Renetta-Hex 2%) 1 applic DAILY@2000 TOPIC 02/07/19 20:00 03/09/19 19:59 02/14/19 20:48 Dextrose (Dextrose 50%) 25 ml Q30M PRN IV Hypoglycemia 01/26/19 10:30 02/25/19 10:29 02/13/19 23:33 Dextrose (Dextrose 50%) 50 ml Q30M PRN IV Hypoglycemia 01/26/19 10:30 02/25/19 10:29 02/10/19 23:34 Docusate Sodium (Colace) 100 mg BID NG 02/02/19 18:00 03/04/19 17:59 02/14/19 17:10 Dopamine HCl/ Dextrose 250 ml @ 0 mls/hr Q24H IV 02/06/19 09:15 03/08/19 09:14 02/13/19 03:36 Fentanyl Citrate 1000 mcg/Sodium Chloride 100 ml @ 0 mls/hr Q24H IV 02/10/19 20:30 02/17/19 20:29 02/12/19 03:21 Haloperidol Lactate 0.5 mg/ Dextrose 55.1 ml @ 220.4 mls/ hr Q8H PRN IVPB Agitation 02/10/19 14:15 03/12/19 14:14 02/13/19 00:05 Hydralazine HCl (Apresoline) 25 mg Q6H PRN NG For High Blood Pressure 02/07/19 17:15 03/06/19 16:59 Hydromorphone HCl (Dilaudid) 0.5 mg Q4H PRN IVP For Pain 02/10/19 14:15 02/17/19 14:14 02/13/19 02:03 Insulin Aspart (NovoLOG) Q6HR SUBQ 02/11/19 13:00 03/13/19 12:59 02/11/19 13:02 Lorazepam (Ativan 2mg/ml 1ml) 0.5 mg Q2H PRN IV ANXIETY 02/11/19 16:30 02/18/19 16:29 02/15/19 11:07 Meropenem 2 gm/ Sodium Chloride 110 ml @ 220 mls/hr Q8HR IVPB 02/10/19 22:00 02/21/19 23:59 02/15/19 14:48 Methylprednisolone Sodium Succinate (Solu-MEDROL) 30 mg DAILY IVP 02/14/19 09:00 03/12/19 20:59 02/15/19 08:38 Pantoprazole (Protonix) 40 mg Q12HR IVP 02/03/19 21:00 02/25/19 10:59 02/15/19 08:38 Polyethylene Glycol (Miralax) 17 gm BEDTIME NG 02/07/19 21:00 03/03/19 20:59 02/14/19 20:48 Vancomycin HCl (Vanco rx to dose) 1 ea DAILY PRN MISC Per rx protocol 02/06/19 20:00 03/08/19 19:59 Vancomycin/Sodium Chloride 275 ml @ 183.333 mls/hr Q12H IVPB 02/15/19 16:00 02/20/19 15:59 [place] Orlando M.D. Feb 15, 2019 15:05
--- NOTE | 2019-02-15 15:30 | NUR ---
NURSE NOTES: Pt was seen by Dr Blake. Per MD Max will be resumed after pt's recovery from EGD/PEG-placement procedure(s).
[2019-02-15] MEDS: Vancomycin 1.25gm/NS Premix q24h IVPB SCH (16:14)
--- NOTE | 2019-02-15 16:20 | General Progress Note ---
Assessment/Plan Status: stable Assessment/Plan: s: Post extubation on BIPAP O: Awake , sleepy , following the command, PHYSICAL EXAMINATION: GENERAL: An elderly male, lying in bed, not in acute distress. HEENT: Normocephalic and atraumatic. Pupils slightly responsive to light. Unable to assess oral mucosa NECK: Trach in place , Supple. No lymphadenopathy.CARDIOVASCULAR: He is tachycardic. S1, S2 normal. No murmur can be heard. LUNGS: Diminished breathing sounds at the bases. No wheezing or rhonchi. Normal breathing effort. ABDOMEN: Soft, nontender, and nondistended. Normal bowel sounds. No hepatosplenomegaly or ascites. No organomegaly.EXTREMITIES: No edema or cyanosis. labs: dated Feb 15 reviewed Meds: reviewed and reconciled ASSESSMENT AND PLAN: 1. Trach dependent respiratory failure. post extubation , On vent assisted Trach setting 2. Sepsis- Gram negative HCA PNA. Stable 3. Chronic obstructive pulmonary disease, end-stage, oxygen-dependent. 3. Cardiopulmonary arrest, status post resuscitation x2. 4. Hypertension. 5. Abnormal blood sugar. 6. Anemia. 7. Abn Trop: likely secondary to #3 7. GI and DVT prophylaxis. 8. Dysphegia PLAN OF CARE: NOtes from pulmonary and Cardiology reviewed Defer anticoagulation to surgeon and Hem S/P PEG placement Subjective Allergies: Coded Allergies: No Known Allergies (Unverified , 06/05/18) Objective Last 24 Hour Vital Signs Date Time Temp Pulse Resp B/P (MAP) Pulse Ox O2 Delivery O2 Flow Rate FiO2 02/15/19 15:30 82 16 111/89 (96) 100 02/15/19 15:02 82 19 100 Mechanical Ventilator 30 79 16 30 02/15/19 15:00 84 21 91/60 (70) 100 02/15/19 14:30 73 17 151/52 (85) 100 02/15/19 14:00 72 16 84/51 (62) 100 02/15/19 13:55 75 12 100 02/15/19 13:02 78 16 100 Mechanical Ventilator 30 70 17 30 02/15/19 13:00 74 16 105/55 (72) 100 02/15/19 12:00 30 02/15/19 12:00 Mechanical Ventilator 02/15/19 12:00 80 02/15/19 12:00 98.0 75 16 110/56 (74) 100 8/30/19 11:02 70 17 100 Mechanical Ventilator 30 70 17 30 02/15/19 11:00 73 23 125/96 (106) 100 02/15/19 10:00 81 17 134/72 (92) 100 02/15/19 09:50 100 02/15/19 09:00 73 16 140/70 (93) 100 02/15/19 08:48 65 16 30 02/15/19 08:30 69 16 110/51 (70) 100 02/15/19 08:00 Mechanical Ventilator 02/15/19 08:00 79 02/15/19 08:00 97.4 77 16 121/55 (77) 100 02/15/19 08:00 30 02/15/19 07:53 72 16 100 Mechanical Ventilator 30 82 16 30 02/15/19 07:00 80 20 130/121 (124) 100 02/15/19 06:00 80 20 144/121 (129) 100 02/15/19 05:30 82 21 137/60 (85) 02/15/19 05:14 77 16 30 02/15/19 05:00 83 18 149/68 (95) 100 02/15/19 04:30 82 21 134/75 (94) 100 02/15/19 04:00 98.0 83 18 120/104 (109) 100 02/15/19 04:00 84 02/15/19 04:00 Mechanical Ventilator 02/15/19 04:00 30 02/15/19 03:30 81 16 113/61 (78) 100 02/15/19 03:28 73 16 100 Mechanical Ventilator 30 75 16 02/15/19 03:00 76 16 137/69 (91) 100 02/15/19 02:30 79 17 124/65 (84) 100 02/15/19 02:00 79 16 141/89 (106) 100 02/15/19 01:30 80 18 130/76 (94) 100 02/15/19 01:15 69 16 30 02/15/19 01:00 72 16 100/63 (75) 02/15/19 00:30 80 17 91/61 (71) 98 02/15/19 00:06 87 16 99 Mechanical Ventilator 30 85 16 02/15/19 00:00 86 02/15/19 00:00 98.5 82 20 125/79 (94) 98 02/15/19 00:00 Mechanical Ventilator 02/14/19 23:30 80 17 114/91 (99) 98 02/14/19 23:00 70 15 100/62 (75) 98 02/14/19 22:00 78 15 121/55 (77) 100 02/14/19 21:52 89 21 143/55 (84) 98 02/14/19 21:28 70 16 30 02/14/19 21:00 77 17 124/110 (115) 96 02/14/19 20:30 75 18 100/64 (76) 96 02/14/19 20:06 80 16 30 02/14/19 20:00 Mechanical Ventilator 02/14/19 20:00 71 02/14/19 20:00 98.0 73 19 126/83 (97) 94 02/14/19 20:00 30 02/14/19 19:50 84 19 95 Mechanical Ventilator 84 19 02/14/19 19:00 82 19 163/84 (110) 02/14/19 18:00 87 21 157/80 (105) 91 02/14/19 17:00 90 19 142/77 (98) 98 02/14/19 16:41 84 19 30 Intake and Output 02/14/19 02/15/19 19:00 07:00 Intake Total 906.666 ml 725.000 ml Output Total 1350 ml 1050 ml Balance -443.334 ml -325.000 ml Intake Free Water 50 ml 50 ml IV Total 586.666 ml 495.000 ml Tube Feeding 270 ml 180 ml Output Urine Total 1350 ml 1050 ml Laboratory Tests 02/15/19 03:24: White Blood Count 11.4H, Red Blood Count 2.95L, Hemoglobin 8.7L, Hematocrit 28.5L, Mean Corpuscular Volume 97, Mean Corpuscular Hemoglobin 29.5, Mean Corpuscular Hemoglobin Concent 30.5L, Red Cell Distribution Width 14.9H, Platelet Count 103L, Mean Platelet Volume 6.5, Neutrophils (%) (Auto) , Lymphocytes (%) (Auto) , Monocytes (%) (Auto) , Eosinophils (%) (Auto) , Basophils (%) (Auto) , Prothrombin Time 10.7, Prothromb Time International Ratio 1.0, Activated Partial Thromboplast Time 26, Sodium Level 144, Potassium Level 4.0, Chloride Level 104, Carbon Dioxide Level 39H, Anion Gap 1L, Blood Urea Nitrogen 18, Creatinine 0.9, Estimat Glomerular Filtration Rate , Glucose Level 83, Calcium Level 8.9, Phosphorus Level 2.2L, Magnesium Level 2.0, Total Bilirubin 0.7, Aspartate Amino Transf (AST/SGOT) 25, Alanine Aminotransferase ( ALT/SGPT) 46, Alkaline Phosphatase 68, C-Reactive Protein, Quantitative 1.4H, Pro-B-Type Natriuretic Peptide 724H, Total Protein 5.0L, Albumin 2.3L, Globulin 2.7, Albumin/Globulin Ratio 0.9L, Vancomycin Level Trough 33.9H Height (Feet): 5 Height (Inches): 10.00 Weight (Pounds): 164 Brianne Henry MD Feb 15, 2019 16:20
--- NOTE | 2019-02-15 16:30 | Procedure Note ---
DATE OF PROCEDURE: 02/15/2019 SURGEON: Jaylen Aleman M.D. PROCEDURE: Upper endoscopy with PEG placement. ANESTHESIA: Per Kami SCHULTE. INSTRUMENT: Olympus adult flexible upper endoscope. INDICATION: Dysphagia. REASON FOR PROCEDURE: The procedure, risks, benefits, and possible consequences, including hemorrhage, aspiration, perforation and infection, and alternative treatments, were explained to the patient/legal guardian by Dr. Jaylen Aleman and the patient/legal guardian understood and accepted these risks. PROCEDURE IN DETAIL: After informed consent was obtained and the patient was adequately sedated, Olympus upper endoscope was advanced from mouth into the second portion of duodenum and retroflexion was performed in the stomach. Then, under endoscopic guidance and under sterile condition, a 20-Yoruba pull type of G-tube was successfully placed in the epigastric area. The distance from the tip of the tube to skin was about 2.5 cm in size. The patient tolerated the procedure very well without any complication. SUMMARY OF FINDINGS: Status post successful PEG placement. RECOMMENDATIONS: 1. Abdominal binder. 2. Elevate the head of the bed at all times. 3. G-tube flush. 4. G-tube care. 5. Start tube feeding later today. Jaylen Aleman M.D. DR: BHARAT JOB#: [id number] CC:
--- NOTE | 2019-02-15 16:30 | NUR ---
NURSE NOTES: GT feeding was started Glucerna 1.5 at starting rate of 15ml/hr. Blood glucose was 45, which was rechecked, resulting in 56. Dextrose 50% was administered and subsequent blood glucose level resulted 107. Abdominal binder was ordered. Central supply was notified to deliver abd binder. Pt was repositioned.
--- NOTE | 2019-02-15 16:31 | Pulmonolgy Critical Care Note ---
Critical Care - Asmt/Plan Assessment/Plan: Pulmonary Critical Care Progress Note HPI Patient is a 73 year olf man with previous history of COPD, CHF, HTN, DM admitted with extreme respiratory distress, intubated in the ED, subsequent Cardiac Arrest. Noted to have hypercapneic respiratory failure. s/p Tracheostomy tolerated well, NGT in good position, tolerating CPAP intemittently RIJ thrombus - on AC Allergies: No Known Allergies Past Medical History: COPD/Asthma, CHF, Hypertension, DM All Other Systems: limited Physical Exam Vital signs noted General Appearance: sedated Head: normocephalic, atraumatic Eyes: bilateral eye PERRL, bilateral eye EOMI ENT: moist mm, no LN Neck: supple Respiratory: generally reduced BS Cardiovascular: tachycardia, HS1, HS2, RRR Gastrointestinal: non tender, soft Musculoskeletal: normal inspection Neurologic: sedated, no focal signs Skin: no rash, palpation normal Impression: COPD exacerbation Hypercapneic respiratory failure - s/p Tracheostomy S/p cardiac arrest in the ED CHF HTN Diabetes Plan ACVC - wean as tolerated Adjust FIO2 for sats 90-94% HHN Q4 IV Solumedrol - reduce Sedation PRN Sz management Monitor labs PPX Antibiotics per ID DNR status Labs noted Chest X-Ray: No consolidation, no effusion Critical Care - Objective Last 24 Hour Vital Signs Date Time Temp Pulse Resp B/P (MAP) Pulse Ox O2 Delivery O2 Flow Rate FiO2 02/15/19 15:30 82 16 111/89 (96) 100 02/15/19 15:02 82 19 100 Mechanical Ventilator 30 79 16 30 02/15/19 15:00 84 21 91/60 (70) 100 02/15/19 14:30 73 17 151/52 (85) 100 02/15/19 14:00 72 16 84/51 (62) 100 02/15/19 13:55 75 12 100 02/15/19 13:02 78 16 100 Mechanical Ventilator 30 70 17 30 02/15/19 13:00 74 16 105/55 (72) 100 02/15/19 12:00 30 02/15/19 12:00 Mechanical Ventilator 02/15/19 12:00 80 02/15/19 12:00 98.0 75 16 110/56 (74) 100 02/15/19 11:02 70 17 100 Mechanical Ventilator 30 70 17 30 02/15/19 11:00 73 23 125/96 (106) 100 02/15/19 10:00 81 17 134/72 (92) 100 02/15/19 09:50 100 02/15/19 09:00 73 16 140/70 (93) 100 02/15/19 08:48 65 16 30 02/15/19 08:30 69 16 110/51 (70) 100 02/15/19 08:00 Mechanical Ventilator 02/15/19 08:00 79 02/15/19 08:00 97.4 77 16 121/55 (77) 100 02/15/19 08:00 30 02/15/19 07:53 72 16 100 Mechanical Ventilator 30 82 16 30 02/15/19 07:00 80 20 130/121 (124) 100 02/15/19 06:00 80 20 144/121 (129) 100 02/15/19 05:30 82 21 137/60 (85) 02/15/19 05:14 77 16 30 02/15/19 05:00 83 18 149/68 (95) 100 02/15/19 04:30 82 21 134/75 (94) 100 02/15/19 04:00 98.0 83 18 120/104 (109) 100 02/15/19 04:00 84 02/15/19 04:00 Mechanical Ventilator 02/15/19 04:00 30 02/15/19 03:30 81 16 113/61 (78) 100 02/15/19 03:28 73 16 100 Mechanical Ventilator 30 75 16 02/15/19 03:00 76 16 137/69 (91) 100 02/15/19 02:30 79 17 124/65 (84) 100 02/15/19 02:00 79 16 141/89 (106) 100 02/15/19 01:30 80 18 130/76 (94) 100 02/15/19 01:15 69 16 30 02/15/19 01:00 72 16 100/63 (75) 02/15/19 00:30 80 17 91/61 (71) 98 02/15/19 00:06 87 16 99 Mechanical Ventilator 30 85 16 02/15/19 00:00 86 02/15/19 00:00 98.5 82 20 125/79 (94) 98 02/15/19 00:00 Mechanical Ventilator 8/29/19 23:30 80 17 114/91 (99) 98 02/14/19 23:00 70 15 100/62 (75) 98 02/14/19 22:00 78 15 121/55 (77) 100 02/14/19 21:52 89 21 143/55 (84) 98 02/14/19 21:28 70 16 30 02/14/19 21:00 77 17 124/110 (115) 96 02/14/19 20:30 75 18 100/64 (76) 96 02/14/19 20:06 80 16 30 02/14/19 20:00 Mechanical Ventilator 02/14/19 20:00 71 02/14/19 20:00 98.0 73 19 126/83 (97) 94 02/14/19 20:00 30 02/14/19 19:50 84 19 95 Mechanical Ventilator 84 19 02/14/19 19:00 82 19 163/84 (110) 02/14/19 18:00 87 21 157/80 (105) 91 02/14/19 17:00 90 19 142/77 (98) 98 02/14/19 16:41 84 19 30 Accucheck: 86 Critical Care - Subjective ROS Limited/Unobtainable: No FI02: 30 Vent Support Breath Rate: 16 Vent Support Mode: AC Vent Tidal Volume: 500 Sputum Amount: Small PEEP: 5.0 PIP: 19 Tube Feeding Amount: 0 I&O: Intake and Output 02/14/19 02/15/19 19:00 07:00 Intake Total 906.666 ml 725.000 ml Output Total 1350 ml 1050 ml Balance -443.334 ml -325.000 ml Intake Free Water 50 ml 50 ml IV Total 586.666 ml 495.000 ml Tube Feeding 270 ml 180 ml Output Urine Total 1350 ml 1050 ml ET-Tube: 7.5 ET Position: 24 Johny White MD Feb 15, 2019 16:31
--- NOTE | 2019-02-15 17:00 | NUR ---
NURSE NOTES: Ativan and Dilaudid were administered as PRN order for extreme restlessness/anxiety and pt's signs/symptoms of severe pain. VS stable.
[2019-02-15] MEDS: Hydromorphone 0.5mg/0.5ml inj IVP PRN (17:01)
--- NOTE | 2019-02-15 18:30 | NUR ---
NURSE NOTES: Pt was cleaned and repositioned. Central line dressing was changed. VS stable.
[2019-02-15] MEDS ORDERED: D5 1/2NS 1000ml IV ONE (18:38)
[2019-02-15] MEDS ORDERED: NS 275ml ONE (18:38)
--- NOTE | 2019-02-15 19:30 | NUR ---
HAND-OFF: Change of shift report given to Esperanza ROYAL. Endorsed plan of care.
--- NOTE | 2019-02-15 19:35 | NUR ---
NURSE NOTES: Received report from Lilia ROYAL. Pt is asleep, opens eyes to name/touch, pt is confused and noncompliant, unable to follow commands, pt attempts to pull IV line and trach out. Bilateral soft wrist restraints are in place. Pt has trach, Shiley 8.0 connected to vent with settings AC16, VT500, Peep 5.0, FI02@ 30% with O2sat at 100%. Bilateral inspiratory and expiratory diminished lungs sounds are noted on auscultation. distributor of directories displays NSR with heart rate in the 79. Pt has generalized edema and peripheral pitting/weeping edema. Left upper arm midline is in place, dressing dry and intact. bilateral upper and lower extremities elevated with pillows. S/P PEG placement no residual, with dry blood around the GT site. Abd soft and non distended. Running Glucerna 1.5 at 15cc/hr goal 45cc/hr. HOB elevated. Skin has left upper back redness small skin tears Optifoam dressing intact. Pt is on P200 pressure release mattress. bed alarm on, locked and in low position. Will continue with plan of care.
[2019-02-15] MEDS: Miralax 17gm pkt NG SCH (20:28)
[2019-02-15] MEDS: Dyna-Hex 2% Top Sol 2oz TOPIC SCH (20:28)
[2019-02-15] MEDS: fentaNYL Citrate 1000 MCG in NS 100ml IV SCH (20:30)
--- NOTE | 2019-02-15 20:47 | NUR ---
NURSE NOTES: Patient in bed noted with anxiety despite of bilateral soft wrist restraint pt trying to pulled out tubing, reality orientation provided, repositioned and pulled up in bed, TV and talk therapy provided not effective. Ativan 0.5mg IVP given effective. will continue to monitor pt.
--- NOTE | 2019-02-15 23:07 | NUR ---
NURSE NOTES: On GT feeding Glucerna 1.5 at 25cc/hr no residual, hob elevated. Repositioned and pulled out in bed due to pt sliding down from bed. Comfort measure provided. Code status DNR. Frequent visual checks continued. Will continue to monitor patient.
[2019-02-16] VITALS (25 sets, daily range): BP systolic 99–167; BP diastolic 38–87
--- NOTE | 2019-02-16 | Cardiology Progress Note ---
Assessment/Plan Assessment/Plan LATE NOTE ENTRY DATE OF THE PATIENT ENCOUNTER: 02/15/19 TIME OF THE PATIENT ENCOUNTER: 19:23 1. Cardiopulmonary arrest due to anoxia, 2D echo reveals normal LVEF. 2. Non-STEMI, conservative management in face of DNR. 3. Moderate aortic regurgitation. 4. Ventilatory derived respiratory failure, s/p trach placement, POD #4. 5. Hypernatremia, better with hypotonic fluids. 6. Aspiration pneumonia/leukocytosis slightly worsened. 7. Acuter right IJ thrombosis due to IJ catheter. 8. Thrombocytopenia, will monitor platelet count. Subjective Subjective Sinus rhythm at rate of 67. FiO2 of 30%. s/p tracheostomy, POD #4 Objective Last 24 Hour Vital Signs Date Time Temp Pulse Resp B/P (MAP) Pulse Ox O2 Delivery O2 Flow Rate FiO2 02/15/19 23:36 67 16 100 Mechanical Ventilator 30 68 16 100 02/15/19 23:35 80 16 30 02/15/19 23:00 71 16 99/42 (61) 100 02/15/19 22:00 82 16 103/49 (67) 02/15/19 21:34 86 16 96/31 (52) 100 02/15/19 21:20 75 16 30 02/15/19 21:15 85 16 95/43 (60) 100 02/15/19 20:30 78 16 108/83 (91) 100 02/15/19 20:22 81 6 105/62 (76) 100 02/15/19 20:00 Mechanical Ventilator 02/15/19 20:00 30 02/15/19 20:00 98.5 78 16 82/57 (65) 100 02/15/19 19:46 65 16 100 Mechanical Ventilator 30 63 16 100 02/15/19 19:00 83 20 103/79 (87) 98 02/15/19 18:45 63 16 30 02/15/19 18:30 64 16 121/56 (77) 100 02/15/19 18:00 65 16 136/87 (103) 100 02/15/19 17:31 97.5 02/15/19 17:15 63 16 30 02/15/19 17:00 81 14 106/63 (77) 100 02/15/19 16:00 Mechanical Ventilator 02/15/19 16:00 30 02/15/19 16:00 98.0 86 19 140/64 (89) 100 02/15/19 16:00 82 02/15/19 15:30 82 16 111/89 (96) 100 02/15/19 15:02 82 19 100 Mechanical Ventilator 30 79 16 30 02/15/19 15:00 84 21 91/60 (70) 100 02/15/19 14:30 73 17 151/52 (85) 100 02/15/19 14:00 72 16 84/51 (62) 100 02/15/19 13:55 75 12 100 02/15/19 13:02 78 16 30 02/15/19 13:00 74 16 105/55 (72) 100 02/15/19 12:00 30 02/15/19 12:00 Mechanical Ventilator 02/15/19 12:00 80 02/15/19 12:00 98.0 75 16 110/56 (74) 100 02/15/19 11:02 70 17 100 Mechanical Ventilator 30 70 17 30 02/15/19 11:00 73 23 125/96 (106) 100 02/15/19 10:00 81 17 134/72 (92) 100 02/15/19 09:50 100 02/15/19 09:00 73 16 140/70 (93) 100 02/15/19 08:48 65 16 30 02/15/19 08:30 69 16 110/51 (70) 100 02/15/19 08:00 Mechanical Ventilator 02/15/19 08:00 79 02/15/19 08:00 97.4 77 16 121/55 (77) 100 02/15/19 08:00 30 02/15/19 07:53 72 16 100 Mechanical Ventilator 30 82 16 30 02/15/19 07:00 80 20 130/121 (124) 100 02/15/19 06:00 80 20 144/121 (129) 100 02/15/19 05:30 82 21 137/60 (85) 02/15/19 05:14 77 16 30 02/15/19 05:00 83 18 149/68 (95) 100 02/15/19 04:30 82 21 134/75 (94) 100 02/15/19 04:00 98.0 83 18 120/104 (109) 100 02/15/19 04:00 84 02/15/19 04:00 Mechanical Ventilator 02/15/19 04:00 30 02/15/19 03:30 81 16 113/61 (78) 100 02/15/19 03:28 73 16 100 Mechanical Ventilator 30 75 16 02/15/19 03:00 76 16 137/69 (91) 100 02/15/19 02:30 79 17 124/65 (84) 100 02/15/19 02:00 79 16 141/89 (106) 100 02/15/19 01:30 80 18 130/76 (94) 100 02/15/19 01:15 69 16 30 02/15/19 01:00 72 16 100/63 (75) 02/15/19 00:30 80 17 91/61 (71) 98 02/15/19 00:06 87 16 99 Mechanical Ventilator 30 85 16 Intake and Output 02/15/19 02/16/19 19:00 07:00 Intake Total 816.939 ml 300 ml Output Total 1050 ml 270 ml Balance -233.061 ml 30 ml Intake Free Water 100 ml 100 ml IV Total 656.939 ml 110 ml Tube Feeding 60 ml 90 ml Output Urine Total 1050 ml 270 ml 2D Echo: LVEF 55%, moderate AR Laboratory Tests Test 02/15/19 03:24 White Blood Count 11.4 K/UL (4.8-10.8) H Red Blood Count 2.95 M/UL (4.70-6.10) L Hemoglobin 8.7 G/DL (14.2-18.0) L Hematocrit 28.5 % (42.0-52.0) L Mean Corpuscular Volume 97 FL (80-99) Mean Corpuscular Hemoglobin 29.5 PG (27.0-31.0) Mean Corpuscular Hemoglobin Concent 30.5 G/DL (32.0-36.0) L Red Cell Distribution Width 14.9 % (11.6-14.8) H Platelet Count 103 K/UL (150-450) L Mean Platelet Volume 6.5 FL (6.5-10.1) Neutrophils (%) (Auto) % (45.0-75.0) Lymphocytes (%) (Auto) % (20.0-45.0) Monocytes (%) (Auto) % (1.0-10.0) Eosinophils (%) (Auto) % (0.0-3.0) Basophils (%) (Auto) % (0.0-2.0) Prothrombin Time 10.7 SEC (9.30-11.50) Prothromb Time International Ratio 1.0 (0.9-1.1) Activated Partial Thromboplast Time 26 SEC (23-33) Sodium Level 144 MMOL/L (136-145) Potassium Level 4.0 MMOL/L (3.5-5.1) Chloride Level 104 MMOL/L (98-107) Carbon Dioxide Level 39 MMOL/L (21-32) H Anion Gap 1 mmol/L (5-15) L Blood Urea Nitrogen 18 mg/dL (7-18) Creatinine 0.9 MG/DL (0.55-1.30) Estimat Glomerular Filtration Rate mL/min (>60) Glucose Level 83 MG/DL (74-106) Calcium Level 8.9 MG/DL (8.5-10.1) Phosphorus Level 2.2 MG/DL (2.5-4.9) L Magnesium Level 2.0 MG/DL (1.8-2.4) Total Bilirubin 0.7 MG/DL (0.2-1.0) Aspartate Amino Transf (AST/SGOT) 25 U/L (15-37) Alanine Aminotransferase (ALT/SGPT) 46 U/L (12-78) Alkaline Phosphatase 68 U/L (46-116) C-Reactive Protein, Quantitative 1.4 mg/dL (0.00-0.90) H Pro-B-Type Natriuretic Peptide 724 pg/mL (0-125) H Total Protein 5.0 G/DL (6.4-8.2) L Albumin 2.3 G/DL (3.4-5.0) L Globulin 2.7 g/dL Albumin/Globulin Ratio 0.9 (1.0-2.7) L Vancomycin Level Trough 33.9 ug/mL (5.0-12.0) H Objective HEENT: Atraumatic, arousable, orally intubated, conjunctival pallor. NECK: Cannot assess JVD, no carotid bruit. Trach tube in place. LUNGS: Bilateral breath sounds. Few rhonchi. No wheezing. CARDIAC: Regular rhythm and rate. Normal S1 and S2. No murmurs, gallops or rubs. ABDOMEN: Soft, non-distended, + BS. EXTREMITIES: No edema, clubbing or cyanosis. Lv Zuniga MD Feb 16, 2019 00:00
--- NOTE | 2019-02-16 00:44 | NUR ---
NURSE NOTES: Blood glucose checked 77mg/dl, pt no s/s of hypo/hyperglycemia. GT feeding currently running Glucerna 1.5 at 25cc/hr will increase to goal 45cc/hr. Abdominal binders q2 hours as tolerated. Will continue to monitor pt.
--- NOTE | 2019-02-16 02:15 | NUR ---
NURSE NOTES: Rechecked pt blood glucose 82mg/dl. On Glucerna 1.5 at 45cc/hr. no s/s of hypo/hyperglycemia. frequent visual checks continued.
[2019-02-16] MEDS: Albuterol/Ipratropium 3ml neb HHN SCH ×6 (03:05→22:43)
[2019-02-16] MEDS: Vancomycin 1.25gm/NS Premix q24h IVPB SCH ×2 (04:14→15:22)
--- NOTE | 2019-02-16 05:05 | NUR ---
NURSE NOTES: Blood glucose checked 61mg/dl rechecked 59mg/dl. patient no s/s of hypo/hyperglycemia. Dextrose 50% 50ml given. will rechecked blood glucose in 15 min and will inform MD in am. Charge nurse aware. will continue to monitor pt.
--- NOTE | 2019-02-16 05:17 | NUR ---
NURSE NOTES: Rechecked blood glucose 107mg/dl
[2019-02-16 05:23] LABS: HEMATOCRIT 27.1 % (42.0-52.0); HEMOGLOBIN 8.5 G/DL (14.2-18.0); MEAN CORPUSCULAR VOLUME 96 FL (80-99); PLATELET COUNT 108 K/UL (150-450); RED BLOOD COUNT 2.81 M/UL (4.70-6.10); RED CELL DISTRIBUTION WIDTH 14.5 % (11.6-14.8); WHITE BLOOD COUNT 7.5 K/UL (4.8-10.8)
--- NOTE | 2019-02-16 06:15 | NUR ---
NURSE NOTES: Seen and examined by Dr. White, and updated regarding pt condition. Per Dr. hWite no need to hold GTF for weaning due to pt on trach. Will wean pt this am.
[2019-02-16] MEDS: NovoLOG Insulin Flexpen SUBQ SCH ×4 (06:40→17:56)
[2019-02-16] MEDS: Meropenem 2 GM in NS 110 ML IVPB SCH ×3 (06:46→22:54)
--- NOTE | 2019-02-16 07:20 | NUR ---
RESPIRATORY LISA: Weaning started at 0720. Weaning criteria passed. Will continue to closely monitor. Placed on PS +6 PEEP +5.
--- NOTE | 2019-02-16 07:21 | NUR ---
HAND-OFF: Report given to Tony ROYAL.Patient in bed no s/s of hypo/hyperglycemia.
--- NOTE | 2019-02-16 07:22 | NUR ---
NURSE NOTES: Report received from GENNY Mata. Pt is sleeping in bed. Able to wake up and make eye contacts. Pt gets agitated and impulsive at times. On bilateral soft wrist restraints. Sinus rhythm on elementary [employer] counselor. Trach to vent. AC 16, Tv 500, FiO2 30%, P 5. No respiratory distress noted. Trach site dressing dry and intact. G-tube in place receiving Glucerna 1.5 at 45cc/hr. No residual noted. Upper extremities edema and weeping noted. Elevated both arms. Left UA midline patent and asymptomatic. Bed in lowest position. Side rails up x3. Bed exit alarm on. Will resume plan of care.
--- NOTE | 2019-02-16 07:30 | NUR ---
RESPIRATORY NOTES: Weaning failed. Pt tidal volumes dropped <250mL and his Ve dropped <4. Patients effort decreased all together. Placed back onto previous ACVC settings.
--- NOTE | 2019-02-16 07:35 | General Progress Note ---
Assessment/Plan Problem List: (1) COPD (chronic obstructive pulmonary disease) ICD Codes: J44.9 - Chronic obstructive pulmonary disease, unspecified SNOMED: 58592801 Qualifiers: Qualified Codes: J44.1 - Chronic obstructive pulmonary disease with (acute) exacerbation (2) Cardiac arrest ICD Codes: I46.9 - Cardiac arrest, cause unspecified SNOMED: 678053701 (3) HTN (hypertension) ICD Codes: I10 - Essential (primary) hypertension SNOMED: 73192138 (4) Encounter for PEG (percutaneous endoscopic gastrostomy) ICD Codes: Z43.1 - Encounter for attention to gastrostomy SNOMED: 946525712, 998025672 Status: stable Assessment/Plan: s/p PEG and Trach GTF management of DVT per hematology Subjective ROS Limited/Unobtainable: No Allergies: Coded Allergies: No Known Allergies (Unverified , 06/05/18) Objective Last 24 Hour Vital Signs Date Time Temp Pulse Resp B/P (MAP) Pulse Ox O2 Delivery O2 Flow Rate FiO2 02/16/19 07:22 100 02/16/19 07:14 74 11 30 30 02/16/19 07:12 81 17 100 Mechanical Ventilator 30 75 18 30 02/16/19 07:00 98.0 75 17 115/57 (76) 100 02/16/19 06:40 76 18 122/49 (73) 100 02/16/19 06:00 80 19 100 02/16/19 05:19 82 18 30 02/16/19 05:00 81 17 128/72 (90) 100 02/16/19 04:00 98.5 78 19 110/38 (62) 100 02/16/19 04:00 Mechanical Ventilator 02/16/19 04:00 80 02/16/19 04:00 30 02/16/19 03:07 79 18 100 Mechanical Ventilator 30 78 16 100 02/16/19 03:06 78 16 30 02/16/19 03:00 78 20 127/64 (85) 100 02/16/19 02:00 71 19 101/52 (68) 100 02/16/19 01:16 81 16 30 02/16/19 01:00 84 17 116/77 (90) 100 02/16/19 00:30 76 17 99/48 (65) 96 02/16/19 00:00 74 02/16/19 00:00 30 02/16/19 00:00 98.4 73 15 102/48 (66) 100 02/16/19 00:00 Mechanical Ventilator 02/15/19 23:36 67 16 100 Mechanical Ventilator 30 68 16 100 02/15/19 23:35 80 16 30 02/15/19 23:00 71 16 99/42 (61) 100 02/15/19 22:00 82 16 103/49 (67) 02/15/19 21:34 86 16 96/31 (52) 100 02/15/19 21:20 75 16 30 02/15/19 21:15 85 16 95/43 (60) 100 02/15/19 20:30 78 16 108/83 (91) 100 02/15/19 20:22 81 6 105/62 (76) 100 02/15/19 20:00 Mechanical Ventilator 02/15/19 20:00 64 02/15/19 20:00 30 02/15/19 20:00 98.5 78 16 82/57 (65) 100 02/15/19 19:46 65 16 100 Mechanical Ventilator 30 63 16 100 02/15/19 19:00 83 20 103/79 (87) 98 02/15/19 18:45 63 16 30 02/15/19 18:30 64 16 121/56 (77) 100 02/15/19 18:00 65 16 136/87 (103) 100 02/15/19 17:31 97.5 02/15/19 17:15 63 16 30 02/15/19 17:00 81 14 106/63 (77) 100 02/15/19 16:00 Mechanical Ventilator 02/15/19 16:00 30 02/15/19 16:00 98.0 86 19 140/64 (89) 100 02/15/19 16:00 82 02/15/19 15:30 82 16 111/89 (96) 100 02/15/19 15:02 82 19 100 Mechanical Ventilator 30 79 16 30 02/15/19 15:00 84 21 91/60 (70) 100 02/15/19 14:30 73 17 151/52 (85) 100 02/15/19 14:00 72 16 84/51 (62) 100 02/15/19 13:55 75 12 100 02/15/19 13:02 78 16 30 02/15/19 13:00 74 16 105/55 (72) 100 02/15/19 12:00 30 02/15/19 12:00 Mechanical Ventilator 02/15/19 12:00 80 02/15/19 12:00 98.0 75 16 110/56 (74) 100 02/15/19 11:02 70 17 100 Mechanical Ventilator 30 70 17 30 02/15/19 11:00 73 23 125/96 (106) 100 02/15/19 10:00 81 17 134/72 (92) 100 02/15/19 09:50 100 02/15/19 09:00 73 16 140/70 (93) 100 02/15/19 08:48 65 16 30 02/15/19 08:30 69 16 110/51 (70) 100 02/15/19 08:00 Mechanical Ventilator 02/15/19 08:00 79 02/15/19 08:00 97.4 77 16 121/55 (77) 100 02/15/19 08:00 30 02/15/19 07:53 72 16 100 Mechanical Ventilator 30 82 16 30 Intake and Output 02/15/19 02/16/19 18:59 06:59 Intake Total 911.939 ml 965.000 ml Output Total 1070 ml 700 ml Balance -158.061 ml 265.000 ml Intake Free Water 100 ml 200 ml IV Total 766.939 ml 385.000 ml Tube Feeding 45 ml 380 ml Output Urine Total 1070 ml 700 ml # Bowel Movements 2 Laboratory Tests 02/16/19 04:11: White Blood Count 7.5, Red Blood Count 2.81L, Hemoglobin 8.5L, Hematocrit 27.1L , Mean Corpuscular Volume 96, Mean Corpuscular Hemoglobin 30.1, Mean Corpuscular Hemoglobin Concent 31.4L, Red Cell Distribution Width 14.5, Platelet Count 108L, Mean Platelet Volume 8.6, Neutrophils (%) (Auto) , Lymphocytes (%) (Auto) , Monocytes (%) (Auto) , Eosinophils (%) (Auto) , Basophils (%) (Auto) , Neutrophils % (Manual) [Pending], Lymphocytes % (Manual) [Pending], Platelet Estimate [Pending], Platelet Morphology [Pending] Height (Feet): 5 Height (Inches): 10.00 Weight (Pounds): 164 General Appearance: no apparent distress EENT: normal ENT inspection Neck: supple Cardiovascular: normal rate Respiratory/Chest: decreased breath sounds Abdomen: normal bowel sounds, non tender, soft Extremities: non-tender Jaylen Aleman MD Feb 16, 2019 07:35
--- NOTE | 2019-02-16 07:45 | NUR ---
NURSE NOTES: Pt failed weaning in 5 minutes as per RT. Placed pt back to AC mode. Sleeping in bed.
--- NOTE | 2019-02-16 08:18 | NUR ---
RESPIRATORY NOTES: Received Patient on Vent settings ACVC 16, VT 500, Fio2 30%, PEEP +5. Patient currently trached with a Shiley 8 tracheostomy tube, secured by trache ties. Patient awake and slightly agitated. Breath sounds are bilateral diminished throughout both lung [place]. Suctioned small amount of clear secretions Q2 and PRN. Vent plugged into red outlet. Alarms are on and audible. Will continue to monitor throughout the day.
[2019-02-16] MEDS: Docusate 100mg tablet NG SCH ×2 (08:31→17:56)
[2019-02-16] MEDS: Solu-MEDROL 40mg Inj IVP SCH (08:32)
[2019-02-16] MEDS: DOPamine 400mg/250ml 250 ML IV SCH (08:32)
[2019-02-16] MEDS: Pantoprazole Inj IVP SCH ×2 (08:32→20:59)
--- NOTE | 2019-02-16 08:55 | NUR ---
NURSE NOTES: Turned and repositioned pt. Oral care done. Dr Salmon here to see the patient. Updated him with pt's current condition. No new orders.
[2019-02-16 08:56] LABS: ALANINE AMINOTRANSFERASE 41 U/L (12-78); ALBUMIN 2.1 G/DL (3.4-5.0); ALBUMIN/GLOBULIN RATIO 0.7 (1.0-2.7); ALKALINE PHOSPHATASE 70 U/L (46-116); ANION GAP 2 mmol/L (5-15); ASPARTATE AMINO TRANSFERASE 21 U/L (15-37); BILIRUBIN,TOTAL 0.7 MG/DL (0.2-1.0); BLOOD UREA NITROGEN 16 mg/dL (7-18); CALCIUM 8.4 MG/DL (8.5-10.1); CARBON DIOXIDE 38 MMOL/L (21-32); CHLORIDE 103 MMOL/L (98-107); CREATININE 0.8 MG/DL (0.55-1.30); SODIUM 142 MMOL/L (136-145)
--- NOTE | 2019-02-16 09:28 | Nephrology Progress Note ---
Assessment/Plan Problem List: (1) Cardiac arrest (2) Prerenal azotemia (3) Hypernatremia (4) Hypoalbuminemia (5) HTN (hypertension) Assessment Pre renal Azotemia due to - Dehydration- - High Protein catabolic state as result of Doxy and steroids HyperNatremia due to free water deficit HypoAlbuminemia Plan Sugg: had PEG 02/15 Tracheostomy 02/12 keep bp in check stop D5W IV fluid Avoid Nephrotoxics Monitor lytes per consultants Subjective ROS Limited/Unobtainable: Yes Objective Objective Last 24 Hour Vital Signs Date Time Temp Pulse Resp B/P (MAP) Pulse Ox O2 Delivery O2 Flow Rate FiO2 02/16/19 09:15 79 17 30 02/16/19 09:00 67 16 126/58 (80) 100 02/16/19 08:00 Mechanical Ventilator 02/16/19 08:00 69 16 149/57 (87) 100 02/16/19 08:00 30 02/16/19 07:32 73 16 30 02/16/19 07:28 73 02/16/19 07:22 100 02/16/19 07:14 74 11 30 30 02/16/19 07:12 81 17 100 Mechanical Ventilator 30 75 18 30 02/16/19 07:00 98.0 75 17 115/57 (76) 100 02/16/19 06:40 76 18 122/49 (73) 100 02/16/19 06:00 80 19 100 02/16/19 05:19 82 18 30 02/16/19 05:00 81 17 128/72 (90) 100 02/16/19 04:00 98.5 78 19 110/38 (62) 100 02/16/19 04:00 Mechanical Ventilator 02/16/19 04:00 80 02/16/19 04:00 30 02/16/19 03:07 79 18 100 Mechanical Ventilator 30 78 16 100 02/16/19 03:06 78 16 30 02/16/19 03:00 78 20 127/64 (85) 100 02/16/19 02:00 71 19 101/52 (68) 100 02/16/19 01:16 81 16 30 02/16/19 01:00 84 17 116/77 (90) 100 02/16/19 00:30 76 17 99/48 (65) 96 02/16/19 00:00 74 02/16/19 00:00 30 02/16/19 00:00 98.4 73 15 102/48 (66) 100 02/16/19 00:00 Mechanical Ventilator 02/15/19 23:36 67 16 100 Mechanical Ventilator 30 68 16 100 02/15/19 23:35 80 16 30 02/15/19 23:00 71 16 99/42 (61) 100 02/15/19 22:00 82 16 103/49 (67) 02/15/19 21:34 86 16 96/31 (52) 100 02/15/19 21:20 75 16 30 02/15/19 21:15 85 16 95/43 (60) 100 02/15/19 20:30 78 16 108/83 (91) 100 02/15/19 20:22 81 6 105/62 (76) 100 02/15/19 20:00 Mechanical Ventilator 02/15/19 20:00 64 02/15/19 20:00 30 02/15/19 20:00 98.5 78 16 82/57 (65) 100 02/15/19 19:46 65 16 100 Mechanical Ventilator 30 63 16 100 02/15/19 19:00 83 20 103/79 (87) 98 02/15/19 18:45 63 16 30 02/15/19 18:30 64 16 121/56 (77) 100 02/15/19 18:00 65 16 136/87 (103) 100 02/15/19 17:31 97.5 02/15/19 17:15 63 16 30 02/15/19 17:00 81 14 106/63 (77) 100 02/15/19 16:00 Mechanical Ventilator 02/15/19 16:00 30 02/15/19 16:00 98.0 86 19 140/64 (89) 100 02/15/19 16:00 82 02/15/19 15:30 82 16 111/89 (96) 100 02/15/19 15:02 82 19 100 Mechanical Ventilator 30 79 16 30 02/15/19 15:00 84 21 91/60 (70) 100 02/15/19 14:30 73 17 151/52 (85) 100 02/15/19 14:00 72 16 84/51 (62) 100 02/15/19 13:55 75 12 100 02/15/19 13:02 78 16 30 02/15/19 13:00 74 16 105/55 (72) 100 02/15/19 12:00 30 02/15/19 12:00 Mechanical Ventilator 02/15/19 12:00 80 02/15/19 12:00 98.0 75 16 110/56 (74) 100 02/15/19 11:02 70 17 100 Mechanical Ventilator 30 70 17 30 02/15/19 11:00 73 23 125/96 (106) 100 02/15/19 10:00 81 17 134/72 (92) 100 02/15/19 09:50 100 Intake and Output 02/15/19 02/16/19 18:59 06:59 Intake Total 911.939 ml 965.000 ml Output Total 1070 ml 700 ml Balance -158.061 ml 265.000 ml Intake Free Water 100 ml 200 ml IV Total 766.939 ml 385.000 ml Tube Feeding 45 ml 380 ml Output Urine Total 1070 ml 700 ml # Bowel Movements 2 Laboratory Tests 02/16/19 04:11: White Blood Count 7.5, Red Blood Count 2.81L, Hemoglobin 8.5L, Hematocrit 27.1L , Mean Corpuscular Volume 96, Mean Corpuscular Hemoglobin 30.1, Mean Corpuscular Hemoglobin Concent 31.4L, Red Cell Distribution Width 14.5, Platelet Count 108L, Mean Platelet Volume 8.6, Neutrophils (%) (Auto) , Lymphocytes (%) (Auto) , Monocytes (%) (Auto) , Eosinophils (%) (Auto) , Basophils (%) (Auto) , Differential Total Cells Counted 100, Neutrophils % ( Manual) 84H, Lymphocytes % (Manual) 13L, Monocytes % (Manual) 3, Eosinophils % ( Manual) 0, Basophils % (Manual) 0, Band Neutrophils 0, Platelet Estimate DecreasedL, Platelet Morphology Normal, Hypochromasia 1+, Anisocytosis 1+, Sodium Level 142, Potassium Level 4.0, Chloride Level 103, Carbon Dioxide Level 38H, Anion Gap 2L, Blood Urea Nitrogen 16, Creatinine 0.8, Estimat Glomerular Filtration Rate , Glucose Level 78, Calcium Level 8.4L, Total Bilirubin 0.7, Aspartate Amino Transf (AST/SGOT) 21, Alanine Aminotransferase (ALT/SGPT) 41, Alkaline Phosphatase 70, Total Protein 4.9L, Albumin 2.1L, Globulin 2.8, Albumin /Globulin Ratio 0.7L Height (Feet): 5 Height (Inches): 10.00 Weight (Pounds): 164 General Appearance: no apparent distress EENT: other - trach Respiratory/Chest: decreased breath sounds Abdomen: distended, other - PEG Objective no change Felipe Salmon MD Feb 16, 2019 09:28
--- NOTE | 2019-02-16 10:23 | NUR ---
NURSE NOTES: Turned and repositioned pt. Pt is strong and tried to lean upper body toward right side only and resistive to care. No acute distress noted.
[2019-02-16] MEDS: Acetaminophen 650mg/20.3ml NG PRN (12:00)
--- NOTE | 2019-02-16 12:00 | NUR ---
NURSE NOTES: Tylenol 650mg PRN given via G-tube for pain. Repositioned pt. Oral care done. Reorientation given. Temp 97.7. Will continue to monitor.
--- NOTE | 2019-02-16 12:38 | Hematology/Onc Progress Note ---
Assessment/Plan Assessment/Plan # Right jugular vein DVT acute --> have discontinued eliquis --> h/h being monitored at this time --> rescan in 3 months --> anticoag per surg # Thrombocytopenia is likely due to underlying infection/sepsis v dic, reactive process --> hiv is neg, hepatitis is neg as well --> us of the abd from prior 2018 --> plt rend 140-->115-->105-->133-->110k--> 118k-->100k-->95k-->109k-->96k--> 109k-->103k --> okay for ppx as long as above 75k --> meds have been reviewed # Anemia of chronic disease, due to multifactorial causes --> anemia panel reviewed from earlier in admission and c/w acd --> hgb goal is >7 --> no hemolysis is seen --> smear has been reviewed --> hgb trend 9.3-->11.1-->9.6--->9.9-->8.6-->8.5-->8.7 # Leukocytosis/elevated white blood cell count, unspecified likely related to steroid meds --> have reviewed peripheral smear and bandemia/neutrophilia noted --> continue antibiotics if they have been started by ID team, zosyn --> monitor for resolution --> wbc trend 14-->18-->24.3-->17.3-->17-->12.6-->11.4 # COPD exacerbation with asp pna --> has been given steriods --> per id for aspiration prec on zosyn --> rochelle/vanc # Hypercapneic respiratory failure -->s/p trach/vent --> poor on weaning # S/p cardiac arrest in the ED # CHF # HTN # Diabetes # DNR status # Dysphagia with NG++ Time of note does not correspond to when patient was seen. Greatly appreciate consultation. Subjective HEENT: Denies: no symptoms, eye pain, blurred vision, tearing, double vision, ear pain, ear discharge, nose pain, nose congestion, throat pain, throat swelling, mouth pain, mouth swelling, other Respiratory: Denies: no symptoms, cough, shortness of breath, SOB with excertion, SOB at rest, sputum, wheezing, other Genitourinary: Denies: no symptoms, burning, discharge, frequency, flank pain, hematuria, incontinence, pain, urgency, other Neurologic/Psychiatric: Denies: no symptoms, anxiety, depressed, emotional problems, headache, numbness, paresthesia, pre-existing deficit, seizure, tingling, tremors, weakness, other Endocrine: Denies: no symptoms, excessive sweating, flushing, intolerance to cold, intolerance to heat, increased hunger, increased thirst, increased urine, unexplained weight gain, unexplained weight loss, other Hematologic/Lymphatic: Denies: no symptoms, anemia, easy bleeding, easy bruising, adenopathy, other Allergies: Coded Allergies: No Known Allergies (Unverified , 06/05/18) Subjective 02/01: no events to report, plt is lower, weaning trial initiated with mack gray rn, hiv neg 02/04: icu, wbc elevated, on abx 02/05: remains on vent, fighting vent, on abx remains on lovenox, on steriods 02/06: icu, on vent, vs stable, no sob or respiratory distress 02/07: remains in the icu, intubated, ng tube, weaning trial today 02/08: icu, restless and agitated, extubation pending, wbc improved 02/10: no vent, remains in icu, seen by pulshaka, extubated today, on bipap 02/11: extubated, on rochelle/vanc, labs have been reviewed 02/13: on glucerna, ngt, dopamine gtt 02/14: extubated, tracheostomy today, no fever or chills, no signs of distress, on abx 02/15: no fever, stable, egd with peg placement, no distress, discontinued eliquis, lovenox started 02/16: failed weaning, seen with mack gray rn, anticoag per surg Objective Objective Current Medications Medications (Trade) Dose Ordered Sig/Brittani Route PRN Reason Start Time Stop Time Status Last Admin Dose Admin Acetaminophen (Tylenol) 650 mg Q4H PRN NG FOR MILD PAIN 01/26/19 10:15 02/25/19 10:14 02/16/19 12:00 Acetylcysteine (Mucomyst) 100 mg Q4HRT HHN 02/12/19 15:00 03/14/19 14:59 02/16/19 10:55 Albuterol/ Ipratropium (Albuterol/ Ipratropium) 3 ml Q4HRT HHN 02/13/19 15:00 02/18/19 14:59 02/16/19 10:55 Chlorhexidine Gluconate (Renetta-Hex 2%) 1 applic DAILY@2000 TOPIC 02/07/19 20:00 03/09/19 19:59 02/15/19 20:28 Dextrose (Dextrose 50%) 25 ml Q30M PRN IV Hypoglycemia 01/26/19 10:30 02/25/19 10:29 02/13/19 23:33 Dextrose (Dextrose 50%) 50 ml Q30M PRN IV Hypoglycemia 01/26/19 10:30 02/25/19 10:29 02/16/19 05:02 Docusate Sodium (Colace) 100 mg BID NG 02/02/19 18:00 03/04/19 17:59 02/16/19 08:31 Dopamine HCl/ Dextrose 250 ml @ 0 mls/hr Q24H IV 02/06/19 09:15 03/08/19 09:14 02/13/19 03:36 Fentanyl Citrate 1000 mcg/Sodium Chloride 100 ml @ 0 mls/hr Q24H IV 02/10/19 20:30 02/17/19 20:29 02/12/19 03:21 Haloperidol Lactate 0.5 mg/ Dextrose 55.1 ml @ 220.4 mls/ hr Q8H PRN IVPB Agitation 02/10/19 14:15 03/12/19 14:14 02/13/19 00:05 Hydralazine HCl (Apresoline) 25 mg Q6H PRN NG For High Blood Pressure 02/07/19 17:15 03/06/19 16:59 Hydromorphone HCl (Dilaudid) 0.5 mg Q4H PRN IVP For Pain 02/10/19 14:15 02/17/19 14:14 02/15/19 17:01 Insulin Aspart (NovoLOG) Q6HR SUBQ 02/11/19 13:00 03/13/19 12:59 02/16/19 11:55 Lorazepam (Ativan 2mg/ml 1ml) 0.5 mg Q2H PRN IV ANXIETY 02/11/19 16:30 02/18/19 16:29 02/15/19 20:32 Meropenem 2 gm/ Sodium Chloride 110 ml @ 220 mls/hr Q8HR IVPB 02/10/19 22:00 02/21/19 23:59 02/16/19 06:46 Methylprednisolone Sodium Succinate (Solu-MEDROL) 30 mg DAILY IVP 02/14/19 09:00 03/12/19 20:59 02/16/19 08:32 Pantoprazole (Protonix) 40 mg Q12HR IVP 02/03/19 21:00 02/25/19 10:59 02/16/19 08:32 Polyethylene Glycol (Miralax) 17 gm BEDTIME NG 02/07/19 21:00 03/03/19 20:59 02/15/19 20:28 Vancomycin HCl (Vanco rx to dose) 1 ea DAILY PRN MISC Per rx protocol 02/06/19 20:00 03/08/19 19:59 Vancomycin/Sodium Chloride 275 ml @ 183.333 mls/hr Q12H IVPB 02/15/19 16:00 02/20/19 15:59 02/16/19 04:14 Last 24 Hour Vital Signs Date Time Temp Pulse Resp B/P (MAP) Pulse Ox O2 Delivery O2 Flow Rate FiO2 02/16/19 12:00 97.7 80 17 122/67 (85) 99 02/16/19 12:00 Mechanical Ventilator 02/16/19 12:00 30 02/16/19 11:00 78 19 106/55 (72) 100 02/16/19 10:55 61 16 100 Mechanical Ventilator 30 63 16 30 02/16/19 10:00 62 16 101/47 (65) 100 02/16/19 09:15 79 17 30 02/16/19 09:00 67 16 126/58 (80) 100 02/16/19 08:00 Mechanical Ventilator 02/16/19 08:00 69 16 149/57 (87) 100 02/16/19 08:00 30 02/16/19 07:32 73 16 30 02/16/19 07:28 73 02/16/19 07:22 100 02/16/19 07:14 74 11 30 30 8/31/19 07:12 81 17 100 Mechanical Ventilator 30 75 18 30 02/16/19 07:00 98.0 75 17 115/57 (76) 100 02/16/19 06:40 76 18 122/49 (73) 100 02/16/19 06:00 80 19 100 02/16/19 05:19 82 18 30 02/16/19 05:00 81 17 128/72 (90) 100 02/16/19 04:00 98.5 78 19 110/38 (62) 100 02/16/19 04:00 Mechanical Ventilator 02/16/19 04:00 80 02/16/19 04:00 30 02/16/19 03:07 79 18 100 Mechanical Ventilator 30 78 16 100 02/16/19 03:06 78 16 30 02/16/19 03:00 78 20 127/64 (85) 100 02/16/19 02:00 71 19 101/52 (68) 100 02/16/19 01:16 81 16 30 02/16/19 01:00 84 17 116/77 (90) 100 02/16/19 00:30 76 17 99/48 (65) 96 02/16/19 00:00 74 02/16/19 00:00 30 02/16/19 00:00 98.4 73 15 102/48 (66) 100 02/16/19 00:00 Mechanical Ventilator 02/15/19 23:36 67 16 100 Mechanical Ventilator 30 68 16 100 02/15/19 23:35 80 16 30 02/15/19 23:00 71 16 99/42 (61) 100 02/15/19 22:00 82 16 103/49 (67) 02/15/19 21:34 86 16 96/31 (52) 100 02/15/19 21:20 75 16 30 02/15/19 21:15 85 16 95/43 (60) 100 02/15/19 20:30 78 16 108/83 (91) 100 02/15/19 20:22 81 6 105/62 (76) 100 02/15/19 20:00 Mechanical Ventilator 02/15/19 20:00 64 02/15/19 20:00 30 02/15/19 20:00 98.5 78 16 82/57 (65) 100 02/15/19 19:46 65 16 100 Mechanical Ventilator 30 63 16 100 02/15/19 19:00 83 20 103/79 (87) 98 02/15/19 18:45 63 16 30 02/15/19 18:30 64 16 121/56 (77) 100 02/15/19 18:00 65 16 136/87 (103) 100 02/15/19 17:31 97.5 02/15/19 17:15 63 16 30 02/15/19 17:00 81 14 106/63 (77) 100 02/15/19 16:00 Mechanical Ventilator 02/15/19 16:00 30 02/15/19 16:00 98.0 86 19 140/64 (89) 100 02/15/19 16:00 82 02/15/19 15:30 82 16 111/89 (96) 100 02/15/19 15:02 82 19 100 Mechanical Ventilator 30 79 16 30 02/15/19 15:00 84 21 91/60 (70) 100 02/15/19 14:30 73 17 151/52 (85) 100 02/15/19 14:00 72 16 84/51 (62) 100 02/15/19 13:55 75 12 100 02/15/19 13:02 78 16 30 02/15/19 13:00 74 16 105/55 (72) 100 02/15/19 12:00 30 02/15/19 12:00 Mechanical Ventilator 02/15/19 12:00 80 02/15/19 12:00 98.0 75 16 110/56 (74) 100 02/15/19 11:02 70 17 100 Mechanical Ventilator 30 70 17 30 02/15/19 11:00 73 23 125/96 (106) 100 02/15/19 10:00 81 17 134/72 (92) 100 02/15/19 09:50 100 02/15/19 09:00 73 16 140/70 (93) 100 02/15/19 08:48 65 16 30 02/15/19 08:30 69 16 110/51 (70) 100 02/15/19 08:00 Mechanical Ventilator 02/15/19 08:00 79 02/15/19 08:00 97.4 77 16 121/55 (77) 100 02/15/19 08:00 30 02/15/19 07:53 72 16 100 Mechanical Ventilator 30 82 16 30 02/15/19 07:00 80 20 130/121 (124) 100 02/15/19 06:00 80 20 144/121 (129) 100 02/15/19 05:30 82 21 137/60 (85) 02/15/19 05:14 77 16 30 02/15/19 05:00 83 18 149/68 (95) 100 02/15/19 04:30 82 21 134/75 (94) 100 02/15/19 04:00 98.0 83 18 120/104 (109) 100 02/15/19 04:00 84 02/15/19 04:00 Mechanical Ventilator 02/15/19 04:00 30 02/15/19 03:30 81 16 113/61 (78) 100 02/15/19 03:28 73 16 100 Mechanical Ventilator 30 75 16 02/15/19 03:00 76 16 137/69 (91) 100 02/15/19 02:30 79 17 124/65 (84) 100 02/15/19 02:00 79 16 141/89 (106) 100 02/15/19 01:30 80 18 130/76 (94) 100 02/15/19 01:15 69 16 30 02/15/19 01:00 72 16 100/63 (75) 02/15/19 00:30 80 17 91/61 (71) 98 02/15/19 00:06 87 16 99 Mechanical Ventilator 30 85 16 02/15/19 00:00 86 02/15/19 00:00 98.5 82 20 125/79 (94) 98 02/15/19 00:00 Mechanical Ventilator 02/14/19 23:30 80 17 114/91 (99) 98 02/14/19 23:00 70 15 100/62 (75) 98 02/14/19 22:00 78 15 121/55 (77) 100 02/14/19 21:52 89 21 143/55 (84) 98 02/14/19 21:28 70 16 30 02/14/19 21:00 77 17 124/110 (115) 96 02/14/19 20:30 75 18 100/64 (76) 96 02/14/19 20:06 80 16 30 02/14/19 20:00 Mechanical Ventilator 02/14/19 20:00 71 02/14/19 20:00 98.0 73 19 126/83 (97) 94 02/14/19 20:00 30 02/14/19 19:50 84 19 95 Mechanical Ventilator 84 19 02/14/19 19:00 82 19 163/84 (110) 02/14/19 18:00 87 21 157/80 (105) 91 02/14/19 17:00 90 19 142/77 (98) 98 02/14/19 16:41 84 19 30 02/14/19 16:00 89 02/14/19 16:00 77 22 157/76 (103) 96 02/14/19 16:00 30 02/14/19 15:10 87 17 95 Mechanical Ventilator 30 81 21 30 02/14/19 15:00 Mechanical Ventilator 02/14/19 15:00 97.5 78 22 155/71 (99) 97 02/14/19 14:00 86 19 142/59 (86) 98 02/14/19 13:10 86 18 30 02/14/19 13:00 86 23 135/82 (99) 92 Intake and Output 02/15/19 02/16/19 18:59 06:59 Intake Total 911.939 ml 965.000 ml Output Total 1070 ml 700 ml Balance -158.061 ml 265.000 ml Intake Free Water 100 ml 200 ml IV Total 766.939 ml 385.000 ml Tube Feeding 45 ml 380 ml Output Urine Total 1070 ml 700 ml # Bowel Movements 2 Labs Test 02/14/19 03:40 02/14/19 09:40 02/14/19 12:49 02/15/19 03:24 White Blood Count 12.6 K/UL (4.8-10.8) 11.4 K/UL (4.8-10.8) Red Blood Count 2.83 M/UL (4.70-6.10) 2.95 M/UL (4.70-6.10) Hemoglobin 8.5 G/DL (14.2-18.0) 8.7 G/DL (14.2-18.0) Hematocrit 27.1 % (42.0-52.0) 28.5 % (42.0-52.0) Mean Corpuscular Volume 96 FL (80-99) 97 FL (80-99) Mean Corpuscular Hemoglobin 30.0 PG (27.0-31.0) 29.5 PG (27.0-31.0) Mean Corpuscular Hemoglobin Concent 31.4 G/DL (32.0-36.0) 30.5 G/DL (32.0-36.0) Red Cell Distribution Width 14.9 % (11.6-14.8) 14.9 % (11.6-14.8) Platelet Count 109 K/UL (150-450) 103 K/UL (150-450) Mean Platelet Volume 6.8 FL (6.5-10.1) 6.5 FL (6.5-10.1) Neutrophils (%) (Auto) % (45.0-75.0) % (45.0-75.0) Lymphocytes (%) (Auto) % (20.0-45.0) % (20.0-45.0) Monocytes (%) (Auto) % (1.0-10.0) % (1.0-10.0) Eosinophils (%) (Auto) % (0.0-3.0) % (0.0-3.0) Basophils (%) (Auto) % (0.0-2.0) % (0.0-2.0) Differential Total Cells Counted 100 Neutrophils % (Manual) 94 % (45-75) Lymphocytes % (Manual) 4 % (20-45) Monocytes % (Manual) 2 % (1-10) Eosinophils % (Manual) 0 % (0-3) Basophils % (Manual) 0 % (0-2) Band Neutrophils 0 % (0-8) Platelet Estimate Decreased Platelet Morphology Normal Hypochromasia 2+ Anisocytosis 1+ Sodium Level 143 MMOL/L (136-145) 144 MMOL/L (136-145) Potassium Level 3.7 MMOL/L (3.5-5.1) 4.0 MMOL/L (3.5-5.1) Chloride Level 103 MMOL/L (98-107) 104 MMOL/L (98-107) Carbon Dioxide Level 39 MMOL/L (21-32) 39 MMOL/L (21-32) Anion Gap 1 mmol/L (5-15) 1 mmol/L (5-15) Blood Urea Nitrogen 17 mg/dL (7-18) 18 mg/dL (7-18) Creatinine 0.8 MG/DL (0.55-1.30) 0.9 MG/DL (0.55-1.30) Estimat Glomerular Filtration Rate mL/min (>60) mL/min (>60) Glucose Level 84 MG/DL (74-106) 83 MG/DL (74-106) Calcium Level 8.6 MG/DL (8.5-10.1) 8.9 MG/DL (8.5-10.1) Arterial Blood pH 7.452 (7.350-7.450) Arterial Blood Partial Pressure CO2 57.5 mmHg (35.0-45.0) Arterial Blood Partial Pressure O2 69.9 mmHg (75.0-100.0) Arterial Blood HCO3 39.2 mmol/L (22.0-26.0) Arterial Blood Oxygen Saturation 93.7 % (95-100) Arterial Blood Base Excess 13.7 (-2-2) Delon Test Positive Activated Partial Thromboplast Time 24 SEC (23-33) 26 SEC (23-33) Prothrombin Time 10.7 SEC (9.30-11.50) Prothromb Time International Ratio 1.0 (0.9-1.1) Phosphorus Level 2.2 MG/DL (2.5-4.9) Magnesium Level 2.0 MG/DL (1.8-2.4) Total Bilirubin 0.7 MG/DL (0.2-1.0) Aspartate Amino Transf (AST/SGOT) 25 U/L (15-37) Alanine Aminotransferase (ALT/SGPT) 46 U/L (12-78) Alkaline Phosphatase 68 U/L (46-116) C-Reactive Protein, Quantitative 1.4 mg/dL (0.00-0.90) Pro-B-Type Natriuretic Peptide 724 pg/mL (0-125) Total Protein 5.0 G/DL (6.4-8.2) Albumin 2.3 G/DL (3.4-5.0) Globulin 2.7 g/dL Albumin/Globulin Ratio 0.9 (1.0-2.7) Vancomycin Level Trough 33.9 ug/mL (5.0-12.0) Test 02/16/19 04:11 White Blood Count 7.5 K/UL (4.8-10.8) Red Blood Count 2.81 M/UL (4.70-6.10) Hemoglobin 8.5 G/DL (14.2-18.0) Hematocrit 27.1 % (42.0-52.0) Mean Corpuscular Volume 96 FL (80-99) Mean Corpuscular Hemoglobin 30.1 PG (27.0-31.0) Mean Corpuscular Hemoglobin Concent 31.4 G/DL (32.0-36.0) Red Cell Distribution Width 14.5 % (11.6-14.8) Platelet Count 108 K/UL (150-450) Mean Platelet Volume 8.6 FL (6.5-10.1) Neutrophils (%) (Auto) % (45.0-75.0) Lymphocytes (%) (Auto) % (20.0-45.0) Monocytes (%) (Auto) % (1.0-10.0) Eosinophils (%) (Auto) % (0.0-3.0) Basophils (%) (Auto) % (0.0-2.0) Differential Total Cells Counted 100 Neutrophils % (Manual) 84 % (45-75) Lymphocytes % (Manual) 13 % (20-45) Monocytes % (Manual) 3 % (1-10) Eosinophils % (Manual) 0 % (0-3) Basophils % (Manual) 0 % (0-2) Band Neutrophils 0 % (0-8) Platelet Estimate Decreased Platelet Morphology Normal Hypochromasia 1+ Anisocytosis 1+ Sodium Level 142 MMOL/L (136-145) Potassium Level 4.0 MMOL/L (3.5-5.1) Chloride Level 103 MMOL/L (98-107) Carbon Dioxide Level 38 MMOL/L (21-32) Anion Gap 2 mmol/L (5-15) Blood Urea Nitrogen 16 mg/dL (7-18) Creatinine 0.8 MG/DL (0.55-1.30) Estimat Glomerular Filtration Rate mL/min (>60) Glucose Level 78 MG/DL (74-106) Calcium Level 8.4 MG/DL (8.5-10.1) Total Bilirubin 0.7 MG/DL (0.2-1.0) Aspartate Amino Transf (AST/SGOT) 21 U/L (15-37) Alanine Aminotransferase (ALT/SGPT) 41 U/L (12-78) Alkaline Phosphatase 70 U/L (46-116) Total Protein 4.9 G/DL (6.4-8.2) Albumin 2.1 G/DL (3.4-5.0) Globulin 2.8 g/dL Albumin/Globulin Ratio 0.7 (1.0-2.7) Height (Feet): 5 Height (Inches): 10.00 Weight (Pounds): 164 Objective General: no bleeding or chills Head: normocephalic, atraumatic Neck: supple ++ NG Respiratory: generally reduced bs, o++ trach Cardiovascular: tachycardia, HS1, HS2, RRR Gastrointestinal: non tender, soft Musculoskeletal: normal inspection Neurologic: sedated on ventilator Skin: no rash, palpation normal Conrado Morel MD Feb 16, 2019 12:38
--- NOTE | 2019-02-16 13:05 | Infectious Diseases Prog Note ---
Assessment/Plan Problems: (1) Aspiration pneumonia Assessment & Plan: due to pseudomonas aeruginosa , continue meropenem with higher dose for two weeks , aspiration precaution . EOT 02/21/19 (2) Leukocytosis Assessment & Plan: PARTIALLY DUE TO STEROIDS , with no evidence rule out sepsis , repeated blood culture x2 is negative , continue meropenem and vancomycin empirically pending cultures . IJ line was removed. taper steroids (3) Acute exacerbation of chronic obstructive pulmonary disease (COPD) Assessment & Plan: S/P doxycycline , on steroids and nebulizer treatment as per pulmonary (4) Cardiac arrest Assessment & Plan: etiology ? cardiology eval to rule out cardiac sources and neurology eval to evaluate his brain condition and to rule out anoxic brain injury (5) Chronic hypercapnic respiratory failure Assessment & Plan: S/P cardiac arrest , S/P tracheostomy after failing multiple weaning trials , pulmonary is following Subjective ROS Limited/Unobtainable: Yes Allergies: Coded Allergies: No Known Allergies (Unverified , 06/05/18) Subjective He was on ventilator , had tracheostomy on 02/12 , tolerating weaning trials now well , unresponsive to verbal commands, no fever or chills no diarrhea, no significant secretions from his trach Objective Vital Signs Last 24 Hour Vital Signs Date Time Temp Pulse Resp B/P (MAP) Pulse Ox O2 Delivery O2 Flow Rate FiO2 02/16/19 12:00 97.7 80 17 122/67 (85) 99 02/16/19 12:00 Mechanical Ventilator 02/16/19 12:00 30 02/16/19 11:00 78 19 106/55 (72) 100 02/16/19 10:55 61 16 100 Mechanical Ventilator 30 63 16 30 02/16/19 10:00 62 16 101/47 (65) 100 02/16/19 09:15 79 17 30 02/16/19 09:00 67 16 126/58 (80) 100 02/16/19 08:00 Mechanical Ventilator 02/16/19 08:00 69 16 149/57 (87) 100 02/16/19 08:00 30 02/16/19 07:32 73 16 30 02/16/19 07:28 73 02/16/19 07:22 100 02/16/19 07:14 74 11 30 30 02/16/19 07:12 81 17 100 Mechanical Ventilator 30 75 18 30 02/16/19 07:00 98.0 75 17 115/57 (76) 100 02/16/19 06:40 76 18 122/49 (73) 100 02/16/19 06:00 80 19 100 02/16/19 05:19 82 18 30 02/16/19 05:00 81 17 128/72 (90) 100 02/16/19 04:00 98.5 78 19 110/38 (62) 100 02/16/19 04:00 Mechanical Ventilator 02/16/19 04:00 80 02/16/19 04:00 30 02/16/19 03:07 79 18 100 Mechanical Ventilator 30 78 16 100 02/16/19 03:06 78 16 30 02/16/19 03:00 78 20 127/64 (85) 100 02/16/19 02:00 71 19 101/52 (68) 100 02/16/19 01:16 81 16 30 02/16/19 01:00 84 17 116/77 (90) 100 02/16/19 00:30 76 17 99/48 (65) 96 02/16/19 00:00 74 02/16/19 00:00 30 02/16/19 00:00 98.4 73 15 102/48 (66) 100 02/16/19 00:00 Mechanical Ventilator 02/15/19 23:36 67 16 100 Mechanical Ventilator 30 68 16 100 02/15/19 23:35 80 16 30 02/15/19 23:00 71 16 99/42 (61) 100 02/15/19 22:00 82 16 103/49 (67) 02/15/19 21:34 86 16 96/31 (52) 100 02/15/19 21:20 75 16 30 02/15/19 21:15 85 16 95/43 (60) 100 02/15/19 20:30 78 16 108/83 (91) 100 02/15/19 20:22 81 6 105/62 (76) 100 02/15/19 20:00 Mechanical Ventilator 02/15/19 20:00 64 02/15/19 20:00 30 02/15/19 20:00 98.5 78 16 82/57 (65) 100 02/15/19 19:46 65 16 100 Mechanical Ventilator 30 63 16 100 02/15/19 19:00 83 20 103/79 (87) 98 02/15/19 18:45 63 16 30 02/15/19 18:30 64 16 121/56 (77) 100 02/15/19 18:00 65 16 136/87 (103) 100 02/15/19 17:31 97.5 02/15/19 17:15 63 16 30 02/15/19 17:00 81 14 106/63 (77) 100 02/15/19 16:00 Mechanical Ventilator 02/15/19 16:00 30 02/15/19 16:00 98.0 86 19 140/64 (89) 100 02/15/19 16:00 82 02/15/19 15:30 82 16 111/89 (96) 100 02/15/19 15:02 82 19 100 Mechanical Ventilator 30 79 16 30 02/15/19 15:00 84 21 91/60 (70) 100 02/15/19 14:30 73 17 151/52 (85) 100 02/15/19 14:00 72 16 84/51 (62) 100 02/15/19 13:55 75 12 100 Height (Feet): 5 Height (Inches): 10.00 Weight (Pounds): 164 General Appearance: WD/WN, no acute distress HEENT: normocephalic, atraumatic, anicteric, mucous membranes moist, PERRL, supple, no JVD, status post trach Respiratory/Chest: chest wall non-tender, no respiratory distress, no accessory muscle use, decreased breath sounds Cardiovascular: normal peripheral pulses, normal rate, regular rhythm, no gallop/murmur, no JVD Abdomen: normal bowel sounds, soft, non tender, no organomegaly, non distended , no mass, no scars Extremities: no cyanosis, no clubbing Skin: no rash, no lesions, no ulcers Neurologic/Psychiatric: alert, oriented x 3, responsive Lymphatic: no neck adenopathy, no groin adenopathy Musculoskeletal: normal muscle bulk, no effusion Laboratory Tests Test 02/16/19 04:11 White Blood Count 7.5 K/UL (4.8-10.8) Red Blood Count 2.81 M/UL (4.70-6.10) L Hemoglobin 8.5 G/DL (14.2-18.0) L Hematocrit 27.1 % (42.0-52.0) L Mean Corpuscular Volume 96 FL (80-99) Mean Corpuscular Hemoglobin 30.1 PG (27.0-31.0) Mean Corpuscular Hemoglobin Concent 31.4 G/DL (32.0-36.0) L Red Cell Distribution Width 14.5 % (11.6-14.8) Platelet Count 108 K/UL (150-450) L Mean Platelet Volume 8.6 FL (6.5-10.1) Neutrophils (%) (Auto) % (45.0-75.0) Lymphocytes (%) (Auto) % (20.0-45.0) Monocytes (%) (Auto) % (1.0-10.0) Eosinophils (%) (Auto) % (0.0-3.0) Basophils (%) (Auto) % (0.0-2.0) Differential Total Cells Counted 100 Neutrophils % (Manual) 84 % (45-75) H Lymphocytes % (Manual) 13 % (20-45) L Monocytes % (Manual) 3 % (1-10) Eosinophils % (Manual) 0 % (0-3) Basophils % (Manual) 0 % (0-2) Band Neutrophils 0 % (0-8) Platelet Estimate Decreased L Platelet Morphology Normal Hypochromasia 1+ Anisocytosis 1+ Sodium Level 142 MMOL/L (136-145) Potassium Level 4.0 MMOL/L (3.5-5.1) Chloride Level 103 MMOL/L (98-107) Carbon Dioxide Level 38 MMOL/L (21-32) H Anion Gap 2 mmol/L (5-15) L Blood Urea Nitrogen 16 mg/dL (7-18) Creatinine 0.8 MG/DL (0.55-1.30) Estimat Glomerular Filtration Rate mL/min (>60) Glucose Level 78 MG/DL (74-106) Calcium Level 8.4 MG/DL (8.5-10.1) L Total Bilirubin 0.7 MG/DL (0.2-1.0) Aspartate Amino Transf (AST/SGOT) 21 U/L (15-37) Alanine Aminotransferase (ALT/SGPT) 41 U/L (12-78) Alkaline Phosphatase 70 U/L (46-116) Total Protein 4.9 G/DL (6.4-8.2) L Albumin 2.1 G/DL (3.4-5.0) L Globulin 2.8 g/dL Albumin/Globulin Ratio 0.7 (1.0-2.7) L Current Medications Medications (Trade) Dose Ordered Sig/Brittani Route PRN Reason Start Time Stop Time Status Last Admin Dose Admin Acetaminophen (Tylenol) 650 mg Q4H PRN NG FOR MILD PAIN 01/26/19 10:15 02/25/19 10:14 02/16/19 12:00 Acetylcysteine (Mucomyst) 100 mg Q4HRT N 02/12/19 15:00 03/14/19 14:59 02/16/19 10:55 Albuterol/ Ipratropium (Albuterol/ Ipratropium) 3 ml Q4HRT N 02/13/19 15:00 02/18/19 14:59 02/16/19 10:55 Chlorhexidine Gluconate (Renetta-Hex 2%) 1 applic DAILY@2000 TOPIC 02/07/19 20:00 03/09/19 19:59 02/15/19 20:28 Dextrose (Dextrose 50%) 25 ml Q30M PRN IV Hypoglycemia 01/26/19 10:30 02/25/19 10:29 02/13/19 23:33 Dextrose (Dextrose 50%) 50 ml Q30M PRN IV Hypoglycemia 01/26/19 10:30 02/25/19 10:29 02/16/19 05:02 Docusate Sodium (Colace) 100 mg BID NG 02/02/19 18:00 03/04/19 17:59 02/16/19 08:31 Dopamine HCl/ Dextrose 250 ml @ 0 mls/hr Q24H IV 02/06/19 09:15 03/08/19 09:14 02/13/19 03:36 Fentanyl Citrate 1000 mcg/Sodium Chloride 100 ml @ 0 mls/hr Q24H IV 02/10/19 20:30 02/17/19 20:29 02/12/19 03:21 Haloperidol Lactate 0.5 mg/ Dextrose 55.1 ml @ 220.4 mls/ hr Q8H PRN IVPB Agitation 02/10/19 14:15 03/12/19 14:14 02/13/19 00:05 Hydralazine HCl (Apresoline) 25 mg Q6H PRN NG For High Blood Pressure 02/07/19 17:15 03/06/19 16:59 Hydromorphone HCl (Dilaudid) 0.5 mg Q4H PRN IVP For Pain 02/10/19 14:15 02/17/19 14:14 02/15/19 17:01 Insulin Aspart (NovoLOG) Q6HR SUBQ 02/11/19 13:00 03/13/19 12:59 02/16/19 11:55 Lorazepam (Ativan 2mg/ml 1ml) 0.5 mg Q2H PRN IV ANXIETY 02/11/19 16:30 02/18/19 16:29 02/15/19 20:32 Meropenem 2 gm/ Sodium Chloride 110 ml @ 220 mls/hr Q8HR IVPB 02/10/19 22:00 02/21/19 23:59 02/16/19 06:46 Methylprednisolone Sodium Succinate (Solu-MEDROL) 30 mg DAILY IVP 02/14/19 09:00 03/12/19 20:59 02/16/19 08:32 Pantoprazole (Protonix) 40 mg Q12HR IVP 02/03/19 21:00 02/25/19 10:59 02/16/19 08:32 Polyethylene Glycol (Miralax) 17 gm BEDTIME NG 02/07/19 21:00 03/03/19 20:59 02/15/19 20:28 Vancomycin HCl (Vanco rx to dose) 1 ea DAILY PRN MISC Per rx protocol 02/06/19 20:00 03/08/19 19:59 Vancomycin/Sodium Chloride 275 ml @ 183.333 mls/hr Q12H IVPB 02/15/19 16:00 02/20/19 15:59 02/16/19 04:14 [place] Orlando M.D. Feb 16, 2019 13:04
[2019-02-16] MEDS ORDERED: NS 500ML ONE (13:41)
[2019-02-16] MEDS ORDERED: NS 275ml ONE (13:41)
--- NOTE | 2019-02-16 14:06 | NUR ---
NURSE NOTES: Pt is sleeping in bed. Easily wake up to light touch. Turned and repositioned pt. VSS. Will continue to monitor.
--- NOTE | 2019-02-16 17:20 | NUR ---
NURSE NOTES: Cleaned and repositioned pt. Pt is strong and resistive to care. Impulsive at times and trying to pull out tubing and ETT. Continued bilateral soft restraints. Will continue to monitor.
[2019-02-16] MEDS ORDERED: Enoxaparin 40mg Inj SUBQ SCH (17:45)
--- NOTE | 2019-02-16 17:45 | NUR ---
NURSE NOTES: Dr Blake here to see the patient. Asked Dr Blake if he wants to restart Lovenox. Order received, noted, and carried out.
--- NOTE | 2019-02-16 17:47 | Pulmonolgy Critical Care Note ---
Critical Care - Asmt/Plan Assessment/Plan: Pulmonary Critical Care Progress Note HPI Patient is a 73 year olf man with previous history of COPD, CHF, HTN, DM admitted with extreme respiratory distress, intubated in the ED, subsequent Cardiac Arrest. Noted to have hypercapneic respiratory failure. s/p Tracheostomy tolerated well, s/p GT, tolerating CPAP intemittently RIJ thrombus - on AC Allergies: No Known Allergies Past Medical History: COPD/Asthma, CHF, Hypertension, DM All Other Systems: limited Physical Exam Vital signs noted General Appearance: sedated Head: normocephalic, atraumatic Eyes: bilateral eye PERRL, bilateral eye EOMI ENT: moist mm, no LN Neck: supple Respiratory: generally reduced BS Cardiovascular: tachycardia, HS1, HS2, RRR Gastrointestinal: non tender, soft Musculoskeletal: normal inspection Neurologic: sedated, no focal signs Skin: no rash, palpation normal Impression: COPD exacerbation Hypercapneic respiratory failure - s/p Tracheostomy S/p cardiac arrest in the ED CHF HTN Diabetes Plan ACVC - wean as tolerated Adjust FIO2 for sats 90-94% HHN Q4 IV Solumedrol - reduce as tolerated Sedation PRN Sz management Monitor labs PPX Antibiotics per ID DNR status Labs noted Chest X-Ray: No consolidation, no effusion Critical Care - Objective Last 24 Hour Vital Signs Date Time Temp Pulse Resp B/P (MAP) Pulse Ox O2 Delivery O2 Flow Rate FiO2 02/16/19 17:00 98.1 82 17 129/87 (101) 100 02/16/19 16:01 Mechanical Ventilator 02/16/19 16:00 89 19 108/85 (93) 99 02/16/19 16:00 76 18 118/70 (86) 100 02/16/19 16:00 30 02/16/19 15:43 88 02/16/19 15:08 81 16 100 Mechanical Ventilator 30 81 17 30 02/16/19 15:00 76 18 118/70 (86) 100 02/16/19 14:00 40 14 118/49 (72) 100 02/16/19 13:08 74 17 30 02/16/19 13:00 77 18 129/53 (78) 100 02/16/19 12:00 97.7 80 17 122/67 (85) 99 02/16/19 12:00 Mechanical Ventilator 02/16/19 12:00 30 02/16/19 11:40 79 02/16/19 11:00 78 19 106/55 (72) 100 02/16/19 10:55 61 16 100 Mechanical Ventilator 30 63 16 30 02/16/19 10:00 62 16 101/47 (65) 100 02/16/19 09:15 79 17 30 02/16/19 09:00 67 16 126/58 (80) 100 02/16/19 08:00 Mechanical Ventilator 02/16/19 08:00 69 16 149/57 (87) 100 02/16/19 08:00 30 02/16/19 07:32 73 16 30 02/16/19 07:28 73 02/16/19 07:22 100 02/16/19 07:14 74 11 30 30 02/16/19 07:12 81 17 100 Mechanical Ventilator 30 75 18 30 02/16/19 07:00 98.0 75 17 115/57 (76) 100 02/16/19 06:40 76 18 122/49 (73) 100 02/16/19 06:00 80 19 100 02/16/19 05:19 82 18 30 02/16/19 05:00 81 17 128/72 (90) 100 02/16/19 04:00 98.5 78 19 110/38 (62) 100 02/16/19 04:00 Mechanical Ventilator 02/16/19 04:00 80 02/16/19 04:00 30 02/16/19 03:07 79 18 100 Mechanical Ventilator 30 78 16 100 02/16/19 03:06 78 16 30 02/16/19 03:00 78 20 127/64 (85) 100 02/16/19 02:00 71 19 101/52 (68) 100 02/16/19 01:16 81 16 30 02/16/19 01:00 84 17 116/77 (90) 100 02/16/19 00:30 76 17 99/48 (65) 96 02/16/19 00:00 74 02/16/19 00:00 30 02/16/19 00:00 98.4 73 15 102/48 (66) 100 02/16/19 00:00 Mechanical Ventilator 02/15/19 23:36 67 16 100 Mechanical Ventilator 30 68 16 100 02/15/19 23:35 80 16 30 02/15/19 23:00 71 16 99/42 (61) 100 02/15/19 22:00 82 16 103/49 (67) 02/15/19 21:34 86 16 96/31 (52) 100 02/15/19 21:20 75 16 30 02/15/19 21:15 85 16 95/43 (60) 100 02/15/19 20:30 78 16 108/83 (91) 100 02/15/19 20:22 81 6 105/62 (76) 100 02/15/19 20:00 Mechanical Ventilator 02/15/19 20:00 64 02/15/19 20:00 30 02/15/19 20:00 98.5 78 16 82/57 (65) 100 02/15/19 19:46 65 16 100 Mechanical Ventilator 30 63 16 100 02/15/19 19:00 83 20 103/79 (87) 98 02/15/19 18:45 63 16 30 02/15/19 18:30 64 16 121/56 (77) 100 02/15/19 18:00 65 16 136/87 (103) 100 Accucheck: 117 Critical Care - Subjective ROS Limited/Unobtainable: No FI02: 30 Vent Support Breath Rate: 16 Vent Support Mode: AC Vent Tidal Volume: 500 Sputum Amount: Small PEEP: 5.0 PIP: 34 Tube Feeding Amount: 45 I&O: Intake and Output 02/15/19 02/16/19 19:00 07:00 Intake Total 816.939 ml 995.000 ml Output Total 1050 ml 675 ml Balance -233.061 ml 320.000 ml Intake Free Water 100 ml 200 ml IV Total 656.939 ml 385.000 ml Tube Feeding 60 ml 410 ml Output Urine Total 1050 ml 675 ml # Bowel Movements 2 ET-Tube: 7.5 ET Position: 24 Johny White MD Feb 16, 2019 17:47
--- NOTE | 2019-02-16 18:30 | Surgery Progress Note ---
Surgery Progress Note Subjective Procedure Performed tracheostomy bronchoscopy Additional Comments s/p peg leukocytosis resolved labs improved stable overall start lovenox today if no bleeding start eliquis tomorrow Objective Last 24 Hour Vital Signs Date Time Temp Pulse Resp B/P (MAP) Pulse Ox O2 Delivery O2 Flow Rate FiO2 02/16/19 18:00 89 21 167/70 (102) 99 02/16/19 17:00 78 18 30 02/16/19 17:00 90 18 100 Mechanical Ventilator 30 02/16/19 17:00 98.1 82 17 129/87 (101) 100 02/16/19 16:01 Mechanical Ventilator 02/16/19 16:00 89 19 108/85 (93) 99 02/16/19 16:00 76 18 118/70 (86) 100 02/16/19 16:00 30 02/16/19 15:43 88 02/16/19 15:08 81 16 100 Mechanical Ventilator 30 81 17 30 02/16/19 15:00 76 18 118/70 (86) 100 02/16/19 14:00 40 14 118/49 (72) 100 02/16/19 13:08 74 17 30 02/16/19 13:00 77 18 129/53 (78) 100 02/16/19 12:00 97.7 80 17 122/67 (85) 99 02/16/19 12:00 Mechanical Ventilator 02/16/19 12:00 30 02/16/19 11:40 79 02/16/19 11:00 78 19 106/55 (72) 100 02/16/19 10:55 61 16 100 Mechanical Ventilator 30 63 16 30 02/16/19 10:00 62 16 101/47 (65) 100 02/16/19 09:15 79 17 30 02/16/19 09:00 67 16 126/58 (80) 100 02/16/19 08:00 Mechanical Ventilator 02/16/19 08:00 69 16 149/57 (87) 100 02/16/19 08:00 30 02/16/19 07:32 73 16 30 02/16/19 07:28 73 02/16/19 07:22 100 02/16/19 07:14 74 11 30 30 02/16/19 07:12 81 17 100 Mechanical Ventilator 30 75 18 30 02/16/19 07:00 98.0 75 17 115/57 (76) 100 02/16/19 06:40 76 18 122/49 (73) 100 02/16/19 06:00 80 19 100 02/16/19 05:19 82 18 30 02/16/19 05:00 81 17 128/72 (90) 100 02/16/19 04:00 98.5 78 19 110/38 (62) 100 02/16/19 04:00 Mechanical Ventilator 02/16/19 04:00 80 02/16/19 04:00 30 02/16/19 03:07 79 18 100 Mechanical Ventilator 30 78 16 100 02/16/19 03:06 78 16 30 02/16/19 03:00 78 20 127/64 (85) 100 02/16/19 02:00 71 19 101/52 (68) 100 02/16/19 01:16 81 16 30 02/16/19 01:00 84 17 116/77 (90) 100 02/16/19 00:30 76 17 99/48 (65) 96 02/16/19 00:00 74 02/16/19 00:00 30 02/16/19 00:00 98.4 73 15 102/48 (66) 100 02/16/19 00:00 Mechanical Ventilator 02/15/19 23:36 67 16 100 Mechanical Ventilator 30 68 16 100 02/15/19 23:35 80 16 30 02/15/19 23:00 71 16 99/42 (61) 100 02/15/19 22:00 82 16 103/49 (67) 02/15/19 21:34 86 16 96/31 (52) 100 02/15/19 21:20 75 16 30 02/15/19 21:15 85 16 95/43 (60) 100 02/15/19 20:30 78 16 108/83 (91) 100 02/15/19 20:22 81 6 105/62 (76) 100 02/15/19 20:00 Mechanical Ventilator 02/15/19 20:00 64 02/15/19 20:00 30 02/15/19 20:00 98.5 78 16 82/57 (65) 100 02/15/19 19:46 65 16 100 Mechanical Ventilator 30 63 16 100 02/15/19 19:00 83 20 103/79 (87) 98 02/15/19 18:45 63 16 30 02/15/19 18:30 64 16 121/56 (77) 100 I&O Intake and Output 02/15/19 02/16/19 19:00 07:00 Intake Total 816.939 ml 995.000 ml Output Total 1050 ml 675 ml Balance -233.061 ml 320.000 ml Intake Free Water 100 ml 200 ml IV Total 656.939 ml 385.000 ml Tube Feeding 60 ml 410 ml Output Urine Total 1050 ml 675 ml # Bowel Movements 2 Dressing: saturated Wound: other Drains: other Cardiovascular: RSR Respiratory: clear, decreased breath sounds Abdomen: soft, present bowel sounds, other Extremities: no cyanosis Laboratory Tests Test 02/16/19 04:11 White Blood Count 7.5 K/UL (4.8-10.8) Red Blood Count 2.81 M/UL (4.70-6.10) L Hemoglobin 8.5 G/DL (14.2-18.0) L Hematocrit 27.1 % (42.0-52.0) L Mean Corpuscular Volume 96 FL (80-99) Mean Corpuscular Hemoglobin 30.1 PG (27.0-31.0) Mean Corpuscular Hemoglobin Concent 31.4 G/DL (32.0-36.0) L Red Cell Distribution Width 14.5 % (11.6-14.8) Platelet Count 108 K/UL (150-450) L Mean Platelet Volume 8.6 FL (6.5-10.1) Neutrophils (%) (Auto) % (45.0-75.0) Lymphocytes (%) (Auto) % (20.0-45.0) Monocytes (%) (Auto) % (1.0-10.0) Eosinophils (%) (Auto) % (0.0-3.0) Basophils (%) (Auto) % (0.0-2.0) Differential Total Cells Counted 100 Neutrophils % (Manual) 84 % (45-75) H Lymphocytes % (Manual) 13 % (20-45) L Monocytes % (Manual) 3 % (1-10) Eosinophils % (Manual) 0 % (0-3) Basophils % (Manual) 0 % (0-2) Band Neutrophils 0 % (0-8) Platelet Estimate Decreased L Platelet Morphology Normal Hypochromasia 1+ Anisocytosis 1+ Sodium Level 142 MMOL/L (136-145) Potassium Level 4.0 MMOL/L (3.5-5.1) Chloride Level 103 MMOL/L (98-107) Carbon Dioxide Level 38 MMOL/L (21-32) H Anion Gap 2 mmol/L (5-15) L Blood Urea Nitrogen 16 mg/dL (7-18) Creatinine 0.8 MG/DL (0.55-1.30) Estimat Glomerular Filtration Rate mL/min (>60) Glucose Level 78 MG/DL (74-106) Calcium Level 8.4 MG/DL (8.5-10.1) L Total Bilirubin 0.7 MG/DL (0.2-1.0) Aspartate Amino Transf (AST/SGOT) 21 U/L (15-37) Alanine Aminotransferase (ALT/SGPT) 41 U/L (12-78) Alkaline Phosphatase 70 U/L (46-116) Total Protein 4.9 G/DL (6.4-8.2) L Albumin 2.1 G/DL (3.4-5.0) L Globulin 2.8 g/dL Albumin/Globulin Ratio 0.7 (1.0-2.7) L Plan Problems: (1) Respiratory distress Assessment & Plan: 73-year-old male with acute respiratory decompensation requiring intubation and intensive care unit evaluation was on vent support. Patient was recently extubated but unfortunately is not tolerating expiration very well as he requires BiPAP persistently and if taken off desaturates. Given these findings tracheostomy is potentially indicated and agree with pulmonology team and medical team that patient may benefit from tracheostomy to allow for recovery. Will obtain consent from the patient's family and patient for tracheostomy placement in hopes to have patient able to be weaned rather than reintubated. Thank you for allowing me to participate patient's care will continue with recommendations s/p trach s/p peg recovering wean vent as tolerated resume eliquis tomorrow if no bleeding with lovenox today will follow thank you Kris Blake Feb 16, 2019 18:30
--- NOTE | 2019-02-16 19:12 | NUR ---
HAND-OFF: Report given to GENNY Mata.
--- NOTE | 2019-02-16 19:23 | NUR ---
RESPIRATORY NOTE: Received pt on current vent settings AC/VC RR16, VT 500, FIO2 30%, PEEP +5. Patient trached with a Shiley 8 trach tube. Breath sounds are bilateral diminished throughout both lung [place]. Small amount of res specks, bridges secretions and will sxn as needed. Vent is plugged into red outlet. Will continue to monitor pt's progress.
--- NOTE | 2019-02-16 19:30 | NUR ---
NURSE NOTES: Received report from GENNY Jimenez. Pt in bed awake, son at bedside. pt attempts to pull IV line and trach out. Bilateral soft wrist restraints are in place. Pt has trach, Shiley 8.0 connected to vent with settings AC16, VT500, Peep 5.0, FI02@ 30% with O2sat at 100%. Bilateral inspiratory and expiratory diminished lungs sounds are noted on auscultation. media monitor displays NSR with heart rate in the 89. Pt has generalized edema and peripheral pitting/weeping edema. Left upper arm midline is in place, dressing dry and intact. bilateral upper and lower extremities elevated with pillows. S/P PEG placement 02/16/19 no residual, with dry blood around the GT site. Abd soft and non distended. Running Glucerna 1.5 at 45cc/hr. HOB elevated. Skin has left upper back redness small skin tears Optifoam dressing intact. Pt is on P200 pressure release mattress. bed alarm on, locked and in low position. No s/s of hypo/hyperglycemia. Will continue with plan of care.
[2019-02-16] MEDS: fentaNYL Citrate 1000 MCG in NS 100ml IV SCH (20:30)
[2019-02-16] MEDS: Miralax 17gm pkt NG SCH (20:58)
[2019-02-16] MEDS: Dyna-Hex 2% Top Sol 2oz TOPIC SCH (20:59)
--- NOTE | 2019-02-16 21:30 | NUR ---
NURSE NOTES: Patient in bed with son at the bedside. no s/s of acute distres noted. No s/s of hypo/hyperglycemia. bed alarm on. bed locked and in low position.
--- NOTE | 2019-02-16 23:30 | NUR ---
NURSE NOTES: On GT feeding Glucerna 1.5 at 45cc/hr no residual, hob elevated. Repositioned and pulled out in bed due to pt sliding down from bed. Comfort measure provided. Code status DNR. Blood glucose 107mg/dl. No s/s of hypo/hyperglycemia. Frequent visual checks continued. Will continue to monitor patient.
[2019-02-17] VITALS (24 sets, daily range): BP systolic 84–166; BP diastolic 48–109
--- NOTE | 2019-02-17 01:30 | NUR ---
NURSE NOTES: Patient in bed restless. oral care provided. talk therapy provided. Repositioned and pulled out in bed due to pt sliding down from bed. Comfort measure provided. No s/s of hypo/hyperglycemia. swollen upper and lower extremities elevated with pillows. Frequent visual checks continued. Will continue to monitor patient.
[2019-02-17] MEDS: Albuterol/Ipratropium 3ml neb HHN SCH ×6 (02:20→23:27)
--- NOTE | 2019-02-17 03:30 | NUR ---
NURSE NOTES: Bed bath given tolerated well. Patient with continuos episode of pulling out tubing and trach, reality orientation provided. Explained the importance v/s risk and benefits of restraint. encouraged pt to verbalize needs,fears and feelings to staff. will continue to monitor patient.
[2019-02-17] MEDS: Meropenem 2 GM in NS 110 ML IVPB SCH ×3 (05:26→22:19)
--- NOTE | 2019-02-17 05:30 | NUR ---
NURSE NOTES: Blood glucose 82mg/dl. No s/s of hypo/hyperglycemia. Patient with continuos episode of pulling out tubing and trach, trying to get out from bed unassisted despite of bilateral soft wrist restraint reality orientation provided. Provided with TV, repositioned and talk therapy. provided with safe and hazard free environment. Pt near the nurse station. will continue to monitor the patient.
[2019-02-17] MEDS: NovoLOG Insulin Flexpen SUBQ SCH ×4 (06:00→19:06)
[2019-02-17 06:17] LABS: PHOSPHORUS 2.3 MG/DL (2.5-4.9)
--- NOTE | 2019-02-17 06:45 | NUR ---
NURSE NOTES: Seen and examined by Dr. White and updated regarding the patient conditions. Dr White gave order to transfer pt to SDU, wean daily, PS 6 CPAP peep of 5, Solumedrol 30mg IVP today and decrease to Solumedrol 20mg IVP daily noted and carried out. Charge nurse and supervisor counseling and guidance made aware.
--- NOTE | 2019-02-17 06:50 | NUR ---
RESPIRATORY NOTES: Weaning started at 0650. Weaning trial passed. Patient placed on PS +6 PEEP +5 Fio2 30%. Will continue to monitor throughout the day.
[2019-02-17 06:54] LABS: ALANINE AMINOTRANSFERASE 42 U/L (12-78); ALBUMIN 2.1 G/DL (3.4-5.0); ALBUMIN/GLOBULIN RATIO 0.8 (1.0-2.7); ALKALINE PHOSPHATASE 70 U/L (46-116); ANION GAP 3 mmol/L (5-15); ASPARTATE AMINO TRANSFERASE 37 U/L (15-37); BILIRUBIN,TOTAL 0.8 MG/DL (0.2-1.0); BLOOD UREA NITROGEN 15 mg/dL (7-18); CALCIUM 8.1 MG/DL (8.5-10.1); CARBON DIOXIDE 34 MMOL/L (21-32); CHLORIDE 103 MMOL/L (98-107); CREATININE 0.6 MG/DL (0.55-1.30); POTASSIUM 5.8 MMOL/L (3.5-5.1); SODIUM 140 MMOL/L (136-145)
--- NOTE | 2019-02-17 07:20 | General Progress Note ---
Assessment/Plan Problem List: (1) COPD (chronic obstructive pulmonary disease) ICD Codes: J44.9 - Chronic obstructive pulmonary disease, unspecified SNOMED: 05470825 Qualifiers: Qualified Codes: J44.1 - Chronic obstructive pulmonary disease with (acute) exacerbation (2) Cardiac arrest ICD Codes: I46.9 - Cardiac arrest, cause unspecified SNOMED: 760397363 (3) HTN (hypertension) ICD Codes: I10 - Essential (primary) hypertension SNOMED: 34826250 (4) Encounter for PEG (percutaneous endoscopic gastrostomy) ICD Codes: Z43.1 - Encounter for attention to gastrostomy SNOMED: 433955798, 193999997 Status: stable Assessment/Plan: s/p PEG and Trach GTF management of DVT per hematology Subjective ROS Limited/Unobtainable: No Allergies: Coded Allergies: No Known Allergies (Unverified , 06/05/18) Objective Last 24 Hour Vital Signs Date Time Temp Pulse Resp B/P (MAP) Pulse Ox O2 Delivery O2 Flow Rate FiO2 02/17/19 07:19 100 02/17/19 07:00 82 16 138/62 (87) 100 02/17/19 06:53 84 13 100 Mechanical Ventilator 30 82 15 30 30 02/17/19 06:00 82 17 133/75 (94) 100 02/17/19 05:03 84 16 30 02/17/19 05:00 86 16 166/71 (102) 100 02/17/19 04:00 Mechanical Ventilator 02/17/19 04:00 30 02/17/19 04:00 85 02/17/19 04:00 98.5 86 18 135/68 (90) 100 02/17/19 03:00 87 16 132/51 (78) 100 02/17/19 02:22 90 16 100 Mechanical Ventilator 30 91 16 30 02/17/19 02:00 96 18 101/59 (73) 99 02/17/19 01:13 85 20 30 02/17/19 01:00 87 19 138/72 (94) 100 02/17/19 00:00 98.2 88 17 129/48 (75) 100 02/17/19 00:00 81 02/17/19 00:00 Mechanical Ventilator 02/17/19 00:00 30 02/16/19 23:00 81 15 140/65 (90) 100 02/16/19 22:44 81 17 100 Mechanical Ventilator 30 85 17 30 02/16/19 22:00 81 16 125/55 (78) 100 02/16/19 21:00 86 21 135/57 (83) 100 02/16/19 20:32 82 18 30 02/16/19 20:00 30 02/16/19 20:00 98.0 87 18 156/67 (96) 100 02/16/19 20:00 Mechanical Ventilator 02/16/19 20:00 88 02/16/19 19:19 73 16 100 Mechanical Ventilator 30 73 16 30 02/16/19 19:00 79 19 113/80 (91) 100 02/16/19 18:00 89 21 167/70 (102) 99 02/16/19 17:00 78 18 30 02/16/19 17:00 90 18 100 Mechanical Ventilator 30 02/16/19 17:00 98.1 82 17 129/87 (101) 100 02/16/19 16:01 Mechanical Ventilator 02/16/19 16:00 89 19 108/85 (93) 99 02/16/19 16:00 76 18 118/70 (86) 100 02/16/19 16:00 30 02/16/19 15:43 88 02/16/19 15:08 81 16 100 Mechanical Ventilator 30 81 17 30 02/16/19 15:00 76 18 118/70 (86) 100 02/16/19 14:00 40 14 118/49 (72) 100 02/16/19 13:08 74 17 30 02/16/19 13:00 77 18 129/53 (78) 100 02/16/19 12:00 97.7 80 17 122/67 (85) 99 02/16/19 12:00 Mechanical Ventilator 02/16/19 12:00 30 02/16/19 11:40 79 02/16/19 11:00 78 19 106/55 (72) 100 02/16/19 10:55 61 16 100 Mechanical Ventilator 30 63 16 30 02/16/19 10:00 62 16 101/47 (65) 100 02/16/19 09:15 79 17 30 02/16/19 09:00 67 16 126/58 (80) 100 02/16/19 08:00 Mechanical Ventilator 02/16/19 08:00 69 16 149/57 (87) 100 02/16/19 08:00 30 02/16/19 07:32 73 16 30 02/16/19 07:28 73 02/16/19 07:22 100 Intake and Output 02/16/19 02/17/19 19:00 07:00 Intake Total 1231.666 ml 960 ml Output Total 1545 ml 1720 ml Balance -313.334 ml -760 ml Intake Free Water 50 ml 200 ml IV Total 586.666 ml 220 ml Tube Feeding 495 ml 540 ml Other 100 ml Output Urine Total 1545 ml 1720 ml Laboratory Tests 02/17/19 03:15: Vancomycin Level Trough 32.8H 02/17/19 04:40: Sodium Level 140, Potassium Level 5.8H, Chloride Level 103, Carbon Dioxide Level 34H, Anion Gap 3L, Blood Urea Nitrogen 15, Creatinine 0.6, Estimat Glomerular Filtration Rate , Glucose Level 85, Uric Acid 2.2L, Calcium Level 8.1L, Phosphorus Level 2.3L, Magnesium Level 2.0, Total Bilirubin 0.8, Aspartate Amino Transf (AST/SGOT) 37, Alanine Aminotransferase (ALT/SGPT) 42, Alkaline Phosphatase 70, C-Reactive Protein, Quantitative 5.4H, Pro-B-Type Natriuretic Peptide 515H, Total Protein 4.8L, Albumin 2.1L, Globulin 2.7, Albumin/Globulin Ratio 0.8L Height (Feet): 5 Height (Inches): 10.00 Weight (Pounds): 162 General Appearance: no apparent distress EENT: normal ENT inspection Neck: supple Cardiovascular: normal rate Respiratory/Chest: decreased breath sounds Abdomen: normal bowel sounds, non tender, soft Extremities: non-tender Jaylen Aleman MD Feb 17, 2019 07:20
--- NOTE | 2019-02-17 07:33 | NUR ---
HAND-OFF: Report given to Rhett ROYAL.
--- NOTE | 2019-02-17 07:35 | NUR ---
NURSE NOTES: Received report from GENNY Mata. Pt in bed leaning towards right side. per PM RN to prefer that side. continues to lean that way despite repositioning and pillow placement. responsive to name and light shaking. pupils 2mm. Pt has trach, Yadiraley 8. vent settings: AC16, VT500, Peep 5.0, FI02@ 30% with O2sat at 100%. Bilateral diminished lungs sounds noted on auscultation. bridges thick secretions via trach. abdomen soft. PEG connected to Glucerna 1.5, running at 45ml/hr. no residual, site dressing dry and intact. Abdomen soft and non distended. no BM this shift. HOB elevated. Skin - see assessment, weeping upper extremities noted. Optifoam dressing intact. pt attempts to pull IV line and trach out. Bilateral soft wrist restraints are in place. Left upper arm midline is in place, dressing dry and intact. bilateral upper and lower extremities elevated with pillows. bed alarm on, locked and in low position. HOB elevated. Will continue with plan of care.
--- NOTE | 2019-02-17 08:53 | NUR ---
NURSE NOTES: MD THACKER HERE TO SEE PT. REQUEST REDRAW FOR K 5.8. WILL INFORM LAB.
[2019-02-17] MEDS ORDERED: Solu-MEDROL 40mg Inj IVP SCH (09:00)
--- NOTE | 2019-02-17 09:08 | Nephrology Progress Note ---
Assessment/Plan Problem List: (1) Cardiac arrest (2) Prerenal azotemia (3) Hypernatremia (4) Hypoalbuminemia (5) HTN (hypertension) Assessment Pre renal Azotemia due to - Dehydration- - High Protein catabolic state as result of Doxy and steroids HyperNatremia due to free water deficit HypoAlbuminemia Plan Sugg: repeat serum K , suspect hemolysis had PEG 02/15 Tracheostomy 02/12 keep bp in check stop D5W IV fluid Avoid Nephrotoxics Monitor lytes per consultants Subjective ROS Limited/Unobtainable: Yes Objective Objective Last 24 Hour Vital Signs Date Time Temp Pulse Resp B/P (MAP) Pulse Ox O2 Delivery O2 Flow Rate FiO2 02/17/19 08:48 81 14 30 30 02/17/19 07:19 100 02/17/19 07:00 82 16 138/62 (87) 100 02/17/19 06:53 84 13 100 Mechanical Ventilator 30 82 15 30 30 02/17/19 06:00 82 17 133/75 (94) 100 02/17/19 05:03 84 16 30 02/17/19 05:00 86 16 166/71 (102) 100 02/17/19 04:00 Mechanical Ventilator 02/17/19 04:00 30 02/17/19 04:00 85 02/17/19 04:00 98.5 86 18 135/68 (90) 100 02/17/19 03:00 87 16 132/51 (78) 100 02/17/19 02:22 90 16 100 Mechanical Ventilator 30 91 16 30 02/17/19 02:00 96 18 101/59 (73) 99 02/17/19 01:13 85 20 30 02/17/19 01:00 87 19 138/72 (94) 100 02/17/19 00:00 98.2 88 17 129/48 (75) 100 02/17/19 00:00 81 02/17/19 00:00 Mechanical Ventilator 02/17/19 00:00 30 02/16/19 23:00 81 15 140/65 (90) 100 02/16/19 22:44 81 17 100 Mechanical Ventilator 30 85 17 30 02/16/19 22:00 81 16 125/55 (78) 100 02/16/19 21:00 86 21 135/57 (83) 100 02/16/19 20:32 82 18 30 02/16/19 20:00 30 02/16/19 20:00 98.0 87 18 156/67 (96) 100 02/16/19 20:00 Mechanical Ventilator 02/16/19 20:00 88 02/16/19 19:19 73 16 100 Mechanical Ventilator 30 73 16 30 02/16/19 19:00 79 19 113/80 (91) 100 02/16/19 18:00 89 21 167/70 (102) 99 02/16/19 17:00 78 18 30 02/16/19 17:00 90 18 100 Mechanical Ventilator 30 02/16/19 17:00 98.1 82 17 129/87 (101) 100 02/16/19 16:01 Mechanical Ventilator 02/16/19 16:00 89 19 108/85 (93) 99 02/16/19 16:00 76 18 118/70 (86) 100 02/16/19 16:00 30 02/16/19 15:43 88 02/16/19 15:08 81 16 100 Mechanical Ventilator 30 81 17 30 02/16/19 15:00 76 18 118/70 (86) 100 02/16/19 14:00 40 14 118/49 (72) 100 02/16/19 13:08 74 17 30 02/16/19 13:00 77 18 129/53 (78) 100 02/16/19 12:00 97.7 80 17 122/67 (85) 99 02/16/19 12:00 Mechanical Ventilator 02/16/19 12:00 30 02/16/19 11:40 79 02/16/19 11:00 78 19 106/55 (72) 100 02/16/19 10:55 61 16 100 Mechanical Ventilator 30 63 16 30 02/16/19 10:00 62 16 101/47 (65) 100 02/16/19 09:15 79 17 30 Intake and Output 02/16/19 02/17/19 19:00 07:00 Intake Total 1231.666 ml 960 ml Output Total 1545 ml 1720 ml Balance -313.334 ml -760 ml Intake Free Water 50 ml 200 ml IV Total 586.666 ml 220 ml Tube Feeding 495 ml 540 ml Other 100 ml Output Urine Total 1545 ml 1720 ml Laboratory Tests 02/17/19 03:15: Vancomycin Level Trough 32.8H 02/17/19 04:40: Sodium Level 140, Potassium Level 5.8H, Chloride Level 103, Carbon Dioxide Level 34H, Anion Gap 3L, Blood Urea Nitrogen 15, Creatinine 0.6, Estimat Glomerular Filtration Rate , Glucose Level 85, Uric Acid 2.2L, Calcium Level 8.1L, Phosphorus Level 2.3L, Magnesium Level 2.0, Total Bilirubin 0.8, Aspartate Amino Transf (AST/SGOT) 37, Alanine Aminotransferase (ALT/SGPT) 42, Alkaline Phosphatase 70, C-Reactive Protein, Quantitative 5.4H, Pro-B-Type Natriuretic Peptide 515H, Total Protein 4.8L, Albumin 2.1L, Globulin 2.7, Albumin/Globulin Ratio 0.8L Height (Feet): 5 Height (Inches): 10.00 Weight (Pounds): 162 General Appearance: no apparent distress EENT: other - trach Respiratory/Chest: decreased breath sounds Abdomen: distended, other - PEG Objective no change Felipe Salmon MD Feb 17, 2019 09:08
[2019-02-17] MEDS: DOPamine 400mg/250ml 250 ML IV SCH (09:15)
[2019-02-17] MEDS: Pantoprazole Inj IVP SCH ×2 (09:30→21:47)
[2019-02-17] MEDS: Docusate 100mg tablet NG SCH ×2 (09:34→19:00)
[2019-02-17] MEDS: Acetaminophen 650mg/20.3ml NG PRN ×2 (09:35→15:25)
--- NOTE | 2019-02-17 09:51 | NUR ---
NURSE NOTES: oral care offered and attempted, pt refused and very resistive to care. pt pulling at restraints and tubing. pushing pillows off onto floor. tyenol given for s/s of discomfort but when asked if having pain , shakes head no. will Continue to monitor pt.
[2019-02-17] MEDS ORDERED: LORazepam Inj 2mg/ml 1ml IV PRN (10:30)
--- NOTE | 2019-02-17 11:23 | Surgery Progress Note ---
Surgery Progress Note Subjective Procedure Performed tracheostomy bronchoscopy Additional Comments Patient seen and examined bedside. No acute events. H&H stable. Leukocytosis resolved. No bleeding with Lovenox. Doing well otherwise. Trach site clean and dry tolerating PEG feeds Objective Last 24 Hour Vital Signs Date Time Temp Pulse Resp B/P (MAP) Pulse Ox O2 Delivery O2 Flow Rate FiO2 02/17/19 10:55 75 16 100 Mechanical Ventilator 30 83 15 30 30 02/17/19 08:48 81 14 30 30 02/17/19 07:19 100 02/17/19 07:00 82 16 138/62 (87) 100 02/17/19 06:53 84 13 100 Mechanical Ventilator 30 82 15 30 30 02/17/19 06:00 82 17 133/75 (94) 100 02/17/19 05:03 84 16 30 02/17/19 05:00 86 16 166/71 (102) 100 02/17/19 04:00 Mechanical Ventilator 02/17/19 04:00 30 02/17/19 04:00 85 02/17/19 04:00 98.5 86 18 135/68 (90) 100 02/17/19 03:00 87 16 132/51 (78) 100 02/17/19 02:22 90 16 100 Mechanical Ventilator 30 91 16 30 02/17/19 02:00 96 18 101/59 (73) 99 02/17/19 01:13 85 20 30 02/17/19 01:00 87 19 138/72 (94) 100 02/17/19 00:00 98.2 88 17 129/48 (75) 100 02/17/19 00:00 81 02/17/19 00:00 Mechanical Ventilator 02/17/19 00:00 30 02/16/19 23:00 81 15 140/65 (90) 100 02/16/19 22:44 81 17 100 Mechanical Ventilator 30 85 17 30 02/16/19 22:00 81 16 125/55 (78) 100 02/16/19 21:00 86 21 135/57 (83) 100 02/16/19 20:32 82 18 30 02/16/19 20:00 30 02/16/19 20:00 98.0 87 18 156/67 (96) 100 02/16/19 20:00 Mechanical Ventilator 02/16/19 20:00 88 02/16/19 19:19 73 16 100 Mechanical Ventilator 30 73 16 30 02/16/19 19:00 79 19 113/80 (91) 100 02/16/19 18:00 89 21 167/70 (102) 99 02/16/19 17:00 78 18 30 02/16/19 17:00 90 18 100 Mechanical Ventilator 30 02/16/19 17:00 98.1 82 17 129/87 (101) 100 02/16/19 16:01 Mechanical Ventilator 02/16/19 16:00 89 19 108/85 (93) 99 02/16/19 16:00 76 18 118/70 (86) 100 02/16/19 16:00 30 02/16/19 15:43 88 02/16/19 15:08 81 16 100 Mechanical Ventilator 30 81 17 30 02/16/19 15:00 76 18 118/70 (86) 100 02/16/19 14:00 40 14 118/49 (72) 100 02/16/19 13:08 74 17 30 02/16/19 13:00 77 18 129/53 (78) 100 02/16/19 12:00 97.7 80 17 122/67 (85) 99 02/16/19 12:00 Mechanical Ventilator 02/16/19 12:00 30 02/16/19 11:40 79 I&O Intake and Output 02/16/19 02/17/19 19:00 07:00 Intake Total 1231.666 ml 960 ml Output Total 1545 ml 1720 ml Balance -313.334 ml -760 ml Intake Free Water 50 ml 200 ml IV Total 586.666 ml 220 ml Tube Feeding 495 ml 540 ml Other 100 ml Output Urine Total 1545 ml 1720 ml Dressing: dry Wound: clean Drains: other Cardiovascular: RSR Respiratory: decreased breath sounds Abdomen: soft, present bowel sounds, non-distended Extremities: no cyanosis Laboratory Tests Test 02/17/19 03:15 02/17/19 04:40 Vancomycin Level Trough 32.8 ug/mL (5.0-12.0) H Sodium Level 140 MMOL/L (136-145) Potassium Level 5.8 MMOL/L (3.5-5.1) H Chloride Level 103 MMOL/L (98-107) Carbon Dioxide Level 34 MMOL/L (21-32) H Anion Gap 3 mmol/L (5-15) L Blood Urea Nitrogen 15 mg/dL (7-18) Creatinine 0.6 MG/DL (0.55-1.30) Estimat Glomerular Filtration Rate mL/min (>60) Glucose Level 85 MG/DL (74-106) Uric Acid 2.2 MG/DL (2.6-7.2) L Calcium Level 8.1 MG/DL (8.5-10.1) L Phosphorus Level 2.3 MG/DL (2.5-4.9) L Magnesium Level 2.0 MG/DL (1.8-2.4) Total Bilirubin 0.8 MG/DL (0.2-1.0) Aspartate Amino Transf (AST/SGOT) 37 U/L (15-37) Alanine Aminotransferase (ALT/SGPT) 42 U/L (12-78) Alkaline Phosphatase 70 U/L (46-116) C-Reactive Protein, Quantitative 5.4 mg/dL (0.00-0.90) H Pro-B-Type Natriuretic Peptide 515 pg/mL (0-125) H Total Protein 4.8 G/DL (6.4-8.2) L Albumin 2.1 G/DL (3.4-5.0) L Globulin 2.7 g/dL Albumin/Globulin Ratio 0.8 (1.0-2.7) L Plan Problems: (1) Respiratory distress Assessment & Plan: 73-year-old male with acute respiratory decompensation requiring intubation and intensive care unit evaluation was on vent support. Patient was recently extubated but unfortunately is not tolerating expiration very well as he requires BiPAP persistently and if taken off desaturates. Given these findings tracheostomy is potentially indicated and agree with pulmonology team and medical team that patient may benefit from tracheostomy to allow for recovery. Will obtain consent from the patient's family and patient for tracheostomy placement in hopes to have patient able to be weaned rather than reintubated. Thank you for allowing me to participate patient's care will continue with recommendations s/p trach s/p peg recovering wean vent as tolerated resume eliquis will follow thank you Kris Blake Feb 17, 2019 11:22
--- NOTE | 2019-02-17 11:35 | NUR ---
RESPIRATORY NOTES: Weaning stopped at 1135 due to SOB. Placed onto previous settings.
--- NOTE | 2019-02-17 12:01 | NUR ---
NURSE NOTES: Pt in bed leaning towards right side. continues to lean that way despite repositioning and pillow placement. pt very resitive to care. responsive to name. Omer huitron 8. weaning trail complete for this shift, currently back on AC mode16, VT500, Peep 5.0, FI02@ 30% with O2sat at 99%. Bilateral diminished lungs sounds, bridges thick secretions via trach. abdomen soft. PEG connected to Glucerna 1.5, running at 45ml/hr. no residual, site dressing dry and intact. no BM this shift. HOB elevated. weeping upper extremities rewrapped. pt continues to make attempts to pull IV line and trach out. Bilateral soft wrist restraints are in place. Left upper arm midline is in place TKO. bilateral upper and lower extremities elevated with pillows. bed alarm on and in low position. HOB elevated. Will continue with plan of care.
[2019-02-17] MEDS ORDERED: Tubing IV Secondary IV ONE (15:06)
[2019-02-17] MEDS ORDERED: NS 275ml ONE (15:06)
[2019-02-17] MEDS ORDERED: D5NS 1000ml IV ONE (15:06)
--- NOTE | 2019-02-17 16:30 | NUR ---
NURSE NOTES: pt very resistive to care. kicks pillows on to floor. pulls out draw sheet. pt restless. tyneol given dfor mild opain. 08/26 FLACC. trach, Shiley 8. AC16, VT500, Peep 5.0, FI02@ 30% with O2sat at 100%. Bilateral diminished lungs sounds, bridges thick secretions. abdomen soft. PEG connected to Glucerna 1.5, running at 45ml/hr. no residual, site dressing dry and intact. HOB elevated. pt continues to make attempts to pull IV line and trach out. Bilateral soft wrist restraints are in place. Left upper arm midline is in place TKO. bed alarm on and in low position. HOB elevated. Will continue with plan of care.
--- NOTE | 2019-02-17 17:37 | Pulmonolgy Critical Care Note ---
Critical Care - Asmt/Plan Assessment/Plan: Pulmonary Critical Care Progress Note HPI Patient is a 73 year olf man with previous history of COPD, CHF, HTN, DM admitted with extreme respiratory distress, intubated in the ED, subsequent Cardiac Arrest. Noted to have hypercapneic respiratory failure. s/p Tracheostomy tolerated well, s/p GT, tolerating CPAP intemittently, will try PS 6 today RIJ thrombus - on AC Allergies: No Known Allergies Past Medical History: COPD/Asthma, CHF, Hypertension, DM All Other Systems: limited Physical Exam Vital signs noted General Appearance: sedated Head: normocephalic, atraumatic Eyes: bilateral eye PERRL, bilateral eye EOMI ENT: moist mm, no LN Neck: supple Respiratory: generally reduced BS Cardiovascular: tachycardia, HS1, HS2, RRR Gastrointestinal: non tender, soft Musculoskeletal: normal inspection Neurologic: sedated, no focal signs Skin: no rash, palpation normal Impression: COPD exacerbation Hypercapneic respiratory failure - s/p Tracheostomy S/p cardiac arrest in the ED CHF HTN Diabetes Plan ACVC - wean as tolerated Adjust FIO2 for sats 90-94% HHN Q4 IV Solumedrol - reduce as tolerated Sedation PRN Sz management Monitor labs PPX Antibiotics per ID DNR status OK for SDU Labs noted Chest X-Ray: No consolidation, no effusion Critical Care - Objective Last 24 Hour Vital Signs Date Time Temp Pulse Resp B/P (MAP) Pulse Ox O2 Delivery O2 Flow Rate FiO2 02/17/19 17:05 74 19 30 02/17/19 17:00 82 17 141/69 (93) 100 02/17/19 16:00 Mechanical Ventilator 02/17/19 16:00 30 02/17/19 16:00 98.6 78 17 128/73 (91) 100 02/17/19 15:06 85 17 100 Mechanical Ventilator 30 86 17 30 02/17/19 15:00 84 15 146/109 (121) 100 02/17/19 14:00 83 18 151/80 (103) 100 02/17/19 13:04 72 16 30 02/17/19 13:00 70 15 84/71 (75) 100 02/17/19 12:00 75 02/17/19 12:00 30 02/17/19 12:00 Mechanical Ventilator 02/17/19 12:00 98.8 73 21 141/55 (83) 100 02/17/19 11:37 86 19 30 02/17/19 11:00 75 17 107/65 (79) 100 02/17/19 10:55 75 16 100 Mechanical Ventilator 30 83 15 30 30 02/17/19 10:00 87 20 140/65 (90) 100 02/17/19 09:00 87 16 140/50 (80) 100 02/17/19 09:00 30 02/17/19 08:48 81 14 30 30 02/17/19 08:00 Mechanical Ventilator 02/17/19 08:00 84 02/17/19 08:00 98.6 69 19 155/96 (115) 96 02/17/19 07:19 100 02/17/19 07:00 82 16 138/62 (87) 100 02/17/19 06:53 84 13 100 Mechanical Ventilator 30 82 15 30 30 02/17/19 06:00 82 17 133/75 (94) 100 02/17/19 05:03 84 16 30 02/17/19 05:00 86 16 166/71 (102) 100 02/17/19 04:00 Mechanical Ventilator 02/17/19 04:00 30 02/17/19 04:00 85 02/17/19 04:00 98.5 86 18 135/68 (90) 100 02/17/19 03:00 87 16 132/51 (78) 100 02/17/19 02:22 90 16 100 Mechanical Ventilator 30 91 16 30 02/17/19 02:00 96 18 101/59 (73) 99 02/17/19 01:13 85 20 30 02/17/19 01:00 87 19 138/72 (94) 100 02/17/19 00:00 98.2 88 17 129/48 (75) 100 02/17/19 00:00 81 02/17/19 00:00 Mechanical Ventilator 02/17/19 00:00 30 02/16/19 23:00 81 15 140/65 (90) 100 02/16/19 22:44 81 17 100 Mechanical Ventilator 30 85 17 30 02/16/19 22:00 81 16 125/55 (78) 100 02/16/19 21:00 86 21 135/57 (83) 100 02/16/19 20:32 82 18 30 02/16/19 20:00 30 02/16/19 20:00 98.0 87 18 156/67 (96) 100 02/16/19 20:00 Mechanical Ventilator 02/16/19 20:00 88 02/16/19 19:19 73 16 100 Mechanical Ventilator 30 73 16 30 02/16/19 19:00 79 19 113/80 (91) 100 02/16/19 18:00 89 21 167/70 (102) 99 Accucheck: 107 Critical Care - Subjective ROS Limited/Unobtainable: No FI02: 30 Vent Support Breath Rate: 16 Vent Support Mode: AC Vent Tidal Volume: 500 Sputum Amount: Small PEEP: 5.0 PIP: 23 Tube Feeding Amount: 45 I&O: Intake and Output 02/16/19 02/17/19 18:59 06:59 Intake Total 1231.666 ml 960 ml Output Total 1380 ml 1640 ml Balance -148.334 ml -680 ml Intake Free Water 50 ml 200 ml IV Total 586.666 ml 220 ml Tube Feeding 495 ml 540 ml Other 100 ml Output Urine Total 1380 ml 1640 ml ET-Tube: 7.5 ET Position: 24 Johny White MD Feb 17, 2019 17:37
[2019-02-17] MEDS ORDERED: Eliquis 5mg tablet ORAL SCH (18:00)
--- NOTE | 2019-02-17 19:30 | NUR ---
RESPIRATORY NOTE: Received pt. on 840 vent. Vent settings are: A/C rate of 16, Vt, 500, FI02 30%, PEEP +5. No respiratory distress noted, pt. sP02 @ 100%. Vent plugged on red outlet. Will continue to monitor pt.
--- NOTE | 2019-02-17 19:30 | NUR ---
NURSE NOTES: REceived pt restless, trache to vent on ac mode, SR on rthe monitor, BP stable. Afebrile. Bilateral soft wrist restraints on for safety to avoid pulling out, therapeutic devices Both arms with 3-4+ Edema . RT arm wheeping with fuids Elevated affected arm with pillow. PICC line INOCENCIA with drsg dry and intact. Treated as midline, But with good blood return. Pr tolerated GT fdg, Glucerna 1.5 at 45ml/hr, no residuals. HOB kept elevated. On aspiration precaution. Pt also has skin tear RT sheen covered with optifoam. Left sheen waw healed. Also pt has excoriated perinneal area , scrotal edema and DTI RT upper back with optifoam drsg. On p200 mattress. Turned q 2hrs prn with good skin care done.Saenz to gravity with lg amt of merced yellow colored urine. Monitor I and O. Monitor lytes. Will continue to monitor.
--- NOTE | 2019-02-17 19:46 | NUR ---
HAND-OFF: Report given to Brooke ROYAL. pt in no acute distress.
--- NOTE | 2019-02-17 19:55 | NUR ---
NURSE NOTES: Ativan 0.5mg ivp given for pts anxiety and agitation.
[2019-02-17] MEDS: Dyna-Hex 2% Top Sol 2oz TOPIC SCH (19:57)
[2019-02-17] MEDS: Miralax 17gm pkt NG SCH (21:00)
--- NOTE | 2019-02-17 21:27 | Cardiology Progress Note ---
Assessment/Plan Assessment/Plan 1. Cardiopulmonary arrest due to anoxia, 2D echo reveals normal LVEF. 2. Non-STEMI, conservative management in face of DNR. 3. Moderate aortic regurgitation. 4. Ventilatory derived respiratory failure, s/p trach placement, POD #6. 5. Hypernatremia, better with hypotonic fluids. 6. Aspiration pneumonia/leukocytosis slightly worsened. 7. Acuter right IJ thrombosis due to IJ catheter. 8. Thrombocytopenia, platelet count on slow rise. Subjective Subjective Sinus rhythm at rate of 67. FiO2 of 30%. s/p tracheostomy, POD #6 Objective Last 24 Hour Vital Signs Date Time Temp Pulse Resp B/P (MAP) Pulse Ox O2 Delivery O2 Flow Rate FiO2 02/17/19 19:23 67 16 100 Mechanical Ventilator 30 67 16 30 02/17/19 19:00 77 18 127/76 (93) 02/17/19 18:00 75 16 140/55 (83) 100 02/17/19 17:05 74 19 30 02/17/19 17:00 82 17 141/69 (93) 100 02/17/19 16:00 Mechanical Ventilator 02/17/19 16:00 30 02/17/19 16:00 98.6 78 17 128/73 (91) 100 02/17/19 15:06 85 17 100 Mechanical Ventilator 30 86 17 30 02/17/19 15:00 84 15 146/109 (121) 100 02/17/19 14:00 83 18 151/80 (103) 100 02/17/19 13:04 72 16 30 02/17/19 13:00 70 15 84/71 (75) 100 02/17/19 12:00 75 02/17/19 12:00 30 02/17/19 12:00 Mechanical Ventilator 02/17/19 12:00 98.8 73 21 141/55 (83) 100 02/17/19 11:37 86 19 30 02/17/19 11:00 75 17 107/65 (79) 100 02/17/19 10:55 75 16 100 Mechanical Ventilator 30 83 15 30 30 02/17/19 10:00 87 20 140/65 (90) 100 02/17/19 09:00 87 16 140/50 (80) 100 02/17/19 09:00 30 02/17/19 08:48 81 14 30 30 02/17/19 08:00 Mechanical Ventilator 02/17/19 08:00 84 02/17/19 08:00 98.6 69 19 155/96 (115) 96 02/17/19 07:19 100 02/17/19 07:00 82 16 138/62 (87) 100 02/17/19 06:53 84 13 100 Mechanical Ventilator 30 82 15 30 30 02/17/19 06:00 82 17 133/75 (94) 100 02/17/19 05:03 84 16 30 02/17/19 05:00 86 16 166/71 (102) 100 02/17/19 04:00 Mechanical Ventilator 02/17/19 04:00 30 02/17/19 04:00 85 02/17/19 04:00 98.5 86 18 135/68 (90) 100 02/17/19 03:00 87 16 132/51 (78) 100 02/17/19 02:22 90 16 100 Mechanical Ventilator 30 91 16 30 02/17/19 02:00 96 18 101/59 (73) 99 02/17/19 01:13 85 20 30 02/17/19 01:00 87 19 138/72 (94) 100 02/17/19 00:00 98.2 88 17 129/48 (75) 100 02/17/19 00:00 81 02/17/19 00:00 Mechanical Ventilator 02/17/19 00:00 30 02/16/19 23:00 81 15 140/65 (90) 100 02/16/19 22:44 81 17 100 Mechanical Ventilator 30 85 17 30 02/16/19 22:00 81 16 125/55 (78) 100 Intake and Output 02/16/19 02/17/19 19:00 07:00 Intake Total 1231.666 ml 960 ml Output Total 1545 ml 1720 ml Balance -313.334 ml -760 ml Intake Free Water 50 ml 200 ml IV Total 586.666 ml 220 ml Tube Feeding 495 ml 540 ml Other 100 ml Output Urine Total 1545 ml 1720 ml 2D Echo: LVEF 55%, moderate AR Laboratory Tests Test 02/17/19 03:15 02/17/19 04:40 02/17/19 11:30 Vancomycin Level Trough 32.8 ug/mL (5.0-12.0) H Sodium Level 140 MMOL/L (136-145) Potassium Level 5.8 MMOL/L (3.5-5.1) H 4.1 MMOL/L (3.5-5.1) Chloride Level 103 MMOL/L (98-107) Carbon Dioxide Level 34 MMOL/L (21-32) H Anion Gap 3 mmol/L (5-15) L Blood Urea Nitrogen 15 mg/dL (7-18) Creatinine 0.6 MG/DL (0.55-1.30) Estimat Glomerular Filtration Rate mL/min (>60) Glucose Level 85 MG/DL (74-106) Uric Acid 2.2 MG/DL (2.6-7.2) L Calcium Level 8.1 MG/DL (8.5-10.1) L Phosphorus Level 2.3 MG/DL (2.5-4.9) L Magnesium Level 2.0 MG/DL (1.8-2.4) Total Bilirubin 0.8 MG/DL (0.2-1.0) Aspartate Amino Transf (AST/SGOT) 37 U/L (15-37) Alanine Aminotransferase (ALT/SGPT) 42 U/L (12-78) Alkaline Phosphatase 70 U/L (46-116) C-Reactive Protein, Quantitative 5.4 mg/dL (0.00-0.90) H Pro-B-Type Natriuretic Peptide 515 pg/mL (0-125) H Total Protein 4.8 G/DL (6.4-8.2) L Albumin 2.1 G/DL (3.4-5.0) L Globulin 2.7 g/dL Albumin/Globulin Ratio 0.8 (1.0-2.7) L Objective HEENT: Atraumatic, arousable, orally intubated, conjunctival pallor. NECK: Cannot assess JVD, no carotid bruit. Trach tube in place. LUNGS: Bilateral breath sounds. Few rhonchi. No wheezing. CARDIAC: Regular rhythm and rate. Normal S1 and S2. No murmurs, gallops or rubs. ABDOMEN: Soft, non-distended, + BS. EXTREMITIES: No edema, clubbing or cyanosis. Lv Zuniga MD Feb 17, 2019 21:27
--- NOTE | 2019-02-17 21:30 | NUR ---
NURSE NOTES:Had x1 lg soft bowel movement , cleaned up pt.
--- NOTE | 2019-02-17 22:42 | Infectious Diseases Prog Note ---
Assessment/Plan Problems: (1) Aspiration pneumonia Assessment & Plan: due to pseudomonas aeruginosa , continue meropenem with higher dose for two weeks , aspiration precaution . EOT 02/21/19 (2) Leukocytosis Assessment & Plan: PARTIALLY DUE TO STEROIDS , with no evidence rule out sepsis , repeated blood culture x2 is negative , continue meropenem and vancomycin empirically pending cultures . IJ line was removed. taper steroids (3) Acute exacerbation of chronic obstructive pulmonary disease (COPD) Assessment & Plan: S/P doxycycline , on steroids and nebulizer treatment as per pulmonary (4) Cardiac arrest Assessment & Plan: etiology ? cardiology eval to rule out cardiac sources and neurology eval to evaluate his brain condition and to rule out anoxic brain injury (5) Chronic hypercapnic respiratory failure Assessment & Plan: S/P cardiac arrest , S/P tracheostomy after failing multiple weaning trials , pulmonary is following Subjective ROS Limited/Unobtainable: Yes Allergies: Coded Allergies: No Known Allergies (Unverified , 06/05/18) Subjective He was on ventilator , had tracheostomy on 02/12 , unresponsive to verbal commands, no fever or chills no diarrhea, no significant secretions from his trach Objective Vital Signs Last 24 Hour Vital Signs Date Time Temp Pulse Resp B/P (MAP) Pulse Ox O2 Delivery O2 Flow Rate FiO2 02/17/19 21:01 69 17 100 Mechanical Ventilator 30 67 16 30 02/17/19 19:23 67 16 100 Mechanical Ventilator 30 67 16 30 02/17/19 19:00 77 18 127/76 (93) 02/17/19 18:00 75 16 140/55 (83) 100 02/17/19 17:05 74 19 30 02/17/19 17:00 82 17 141/69 (93) 100 02/17/19 16:00 Mechanical Ventilator 02/17/19 16:00 30 02/17/19 16:00 98.6 78 17 128/73 (91) 100 02/17/19 15:06 85 17 100 Mechanical Ventilator 30 86 17 30 02/17/19 15:00 84 15 146/109 (121) 100 02/17/19 14:00 83 18 151/80 (103) 100 02/17/19 13:04 72 16 30 02/17/19 13:00 70 15 84/71 (75) 100 02/17/19 12:00 75 02/17/19 12:00 30 02/17/19 12:00 Mechanical Ventilator 02/17/19 12:00 98.8 73 21 141/55 (83) 100 02/17/19 11:37 86 19 30 02/17/19 11:00 75 17 107/65 (79) 100 02/17/19 10:55 75 16 100 Mechanical Ventilator 30 83 15 30 30 02/17/19 10:00 87 20 140/65 (90) 100 02/17/19 09:00 87 16 140/50 (80) 100 02/17/19 09:00 30 02/17/19 08:48 81 14 30 30 02/17/19 08:00 Mechanical Ventilator 02/17/19 08:00 84 02/17/19 08:00 98.6 69 19 155/96 (115) 96 02/17/19 07:19 100 02/17/19 07:00 82 16 138/62 (87) 100 02/17/19 06:53 84 13 100 Mechanical Ventilator 30 82 15 30 30 02/17/19 06:00 82 17 133/75 (94) 100 02/17/19 05:03 84 16 30 02/17/19 05:00 86 16 166/71 (102) 100 02/17/19 04:00 Mechanical Ventilator 02/17/19 04:00 30 02/17/19 04:00 85 02/17/19 04:00 98.5 86 18 135/68 (90) 100 02/17/19 03:00 87 16 132/51 (78) 100 02/17/19 02:22 90 16 100 Mechanical Ventilator 30 91 16 30 02/17/19 02:00 96 18 101/59 (73) 99 02/17/19 01:13 85 20 30 02/17/19 01:00 87 19 138/72 (94) 100 02/17/19 00:00 98.2 88 17 129/48 (75) 100 02/17/19 00:00 81 02/17/19 00:00 Mechanical Ventilator 02/17/19 00:00 30 02/16/19 23:00 81 15 140/65 (90) 100 02/16/19 22:44 81 17 100 Mechanical Ventilator 30 85 17 30 Height (Feet): 5 Height (Inches): 10.00 Weight (Pounds): 162 General Appearance: WD/WN, no acute distress, cachetic HEENT: normocephalic, atraumatic, anicteric, mucous membranes moist, PERRL, supple, no JVD, status post trach Respiratory/Chest: chest wall non-tender, lungs clear, normal breath sounds, no respiratory distress, no accessory muscle use, respiratory distress Cardiovascular: normal peripheral pulses, normal rate, regular rhythm, no gallop/murmur, no JVD Abdomen: normal bowel sounds, soft, non tender, no organomegaly, non distended , no mass, no scars, other - PEG tube site looks ok Genitourinary: normal external genitalia Extremities: no cyanosis, no clubbing Skin: no rash, no lesions, no ulcers Neurologic/Psychiatric: weigher and mixer II-XII grossly normal, alert, oriented x 3 Lymphatic: no neck adenopathy, no groin adenopathy Musculoskeletal: normal muscle bulk, no effusion Laboratory Tests Test 02/17/19 03:15 02/17/19 04:40 02/17/19 11:30 Vancomycin Level Trough 32.8 ug/mL (5.0-12.0) H Sodium Level 140 MMOL/L (136-145) Potassium Level 5.8 MMOL/L (3.5-5.1) H 4.1 MMOL/L (3.5-5.1) Chloride Level 103 MMOL/L (98-107) Carbon Dioxide Level 34 MMOL/L (21-32) H Anion Gap 3 mmol/L (5-15) L Blood Urea Nitrogen 15 mg/dL (7-18) Creatinine 0.6 MG/DL (0.55-1.30) Estimat Glomerular Filtration Rate mL/min (>60) Glucose Level 85 MG/DL (74-106) Uric Acid 2.2 MG/DL (2.6-7.2) L Calcium Level 8.1 MG/DL (8.5-10.1) L Phosphorus Level 2.3 MG/DL (2.5-4.9) L Magnesium Level 2.0 MG/DL (1.8-2.4) Total Bilirubin 0.8 MG/DL (0.2-1.0) Aspartate Amino Transf (AST/SGOT) 37 U/L (15-37) Alanine Aminotransferase (ALT/SGPT) 42 U/L (12-78) Alkaline Phosphatase 70 U/L (46-116) C-Reactive Protein, Quantitative 5.4 mg/dL (0.00-0.90) H Pro-B-Type Natriuretic Peptide 515 pg/mL (0-125) H Total Protein 4.8 G/DL (6.4-8.2) L Albumin 2.1 G/DL (3.4-5.0) L Globulin 2.7 g/dL Albumin/Globulin Ratio 0.8 (1.0-2.7) L Current Medications Medications (Trade) Dose Ordered Sig/Brittani Route PRN Reason Start Time Stop Time Status Last Admin Dose Admin Acetaminophen (Tylenol) 650 mg Q4H PRN NG FOR MILD PAIN 01/26/19 10:15 02/25/19 10:14 02/17/19 15:25 Acetylcysteine (Mucomyst) 100 mg Q4HRT N 02/12/19 15:00 03/14/19 14:59 02/17/19 19:23 Albuterol/ Ipratropium (Albuterol/ Ipratropium) 3 ml Q4HRT [facility] 02/17/19 11:00 02/22/19 20:00 02/17/19 19:23 Apixaban (Eliquis) 5 mg BID ORAL 02/17/19 18:00 03/19/19 17:59 02/17/19 19:00 Chlorhexidine Gluconate (Renetta-Hex 2%) 1 applic DAILY@2000 TOPIC 02/07/19 20:00 03/09/19 19:59 02/17/19 19:57 Dextrose (Dextrose 50%) 25 ml Q30M PRN IV Hypoglycemia 01/26/19 10:30 02/25/19 10:29 02/13/19 23:33 Dextrose (Dextrose 50%) 50 ml Q30M PRN IV Hypoglycemia 01/26/19 10:30 02/25/19 10:29 02/16/19 05:02 Docusate Sodium (Colace) 100 mg BID NG 02/02/19 18:00 03/04/19 17:59 02/17/19 19:00 Dopamine HCl/ Dextrose 250 ml @ 0 mls/hr Q24H IV 02/06/19 09:15 03/08/19 09:14 02/13/19 03:36 Haloperidol Lactate 0.5 mg/ Dextrose 55.1 ml @ 220.4 mls/ hr Q8H PRN IVPB Agitation 02/10/19 14:15 03/12/19 14:14 02/13/19 00:05 Hydralazine HCl (Apresoline) 25 mg Q6H PRN NG For High Blood Pressure 02/07/19 17:15 03/06/19 16:59 Insulin Aspart (NovoLOG) Q6HR SUBQ 02/11/19 13:00 03/13/19 12:59 02/17/19 19:06 Lorazepam (Ativan 2mg/ml 1ml) 0.5 mg Q2H PRN IV ANXIETY 02/17/19 10:30 02/22/19 20:00 02/17/19 19:54 Meropenem 2 gm/ Sodium Chloride 110 ml @ 220 mls/hr Q8HR IVPB 02/10/19 22:00 02/21/19 23:59 02/17/19 22:19 Methylprednisolone Sodium Succinate (Solu-MEDROL) 20 mg DAILY IVP 02/18/19 09:00 03/20/19 08:59 Pantoprazole (Protonix) 40 mg Q12HR IVP 02/03/19 21:00 02/25/19 10:59 02/17/19 21:47 Polyethylene Glycol (Miralax) 17 gm BEDTIME NG 02/07/19 21:00 03/03/19 20:59 02/16/19 20:58 Vancomycin HCl (Vanco rx to dose) 1 ea DAILY PRN MISC Per rx protocol 02/06/19 20:00 03/08/19 19:59 [place] Orlando M.D. Feb 17, 2019 22:42
--- NOTE | 2019-02-17 23:30 | NUR ---
NURSE NOTES: pts son was here - updated with pts condition. Verbalized understanding.
[2019-02-18] VITALS (9 sets, daily range): BP systolic 115–163; BP diastolic 70–103
[2019-02-18] MEDS: D5W IVPB PRN (00:53)
[2019-02-18] MEDS: HALOPERIDOL LACTATE IVPB PRN (00:53)
--- NOTE | 2019-02-18 00:53 | NUR ---
NURSE NOTES: Haldol 0.5mg ivp given for pts agitation.
--- NOTE | 2019-02-18 02:00 | NUR ---
NURSE NOTES:Complete bath with partial bed changed done.
--- NOTE | 2019-02-18 03:00 | NUR ---
NURSE NOTES: Transfer to 245-2 via bed with VSS. No belongings. Report given to Estefania ROYAL.
[2019-02-18] MEDS ORDERED: Albuterol/Ipratropium 3ml neb ONE (03:11)
[2019-02-18] MEDS: Albuterol/Ipratropium 3ml neb HHN SCH ×5 (03:15→20:11)
--- NOTE | 2019-02-18 03:23 | NUR ---
TRANSFER TO FLOOR: Patient transferred to [facility], [facility] . Report given to Estefania ROYAL. Belongings and medications given to Estefania ROYAL . Family and or S/O informed of transfer.
--- NOTE | 2019-02-18 03:25 | NUR ---
NURSE NOTES: Received patient from GENNY Cox. patient is observed in bed, no s/sx of pain noted at this time. vent to trach settings are as follows: Shiley: 8, AC: 16, TV: 500, FiO2: 30%, PEEP: 5. no s/sx of respiratory distress noted at this time. G-tube site is patent and intact, running feeding at prescribed rate. HOB elevated, no residual noted. F/C is patent and intact, draining well. INOCENCIA PICC is patent and intact, asymptomatic, running fluids TKO. skin alterations noted. bed in lowest position and locked, siderails up X3, call light within reach. will continue to monitor.
[2019-02-18] MEDS ORDERED: HydrALAZINE 25mg tab NG PRN (05:15)
[2019-02-18] MEDS: Meropenem 2 GM in NS 110 ML IVPB SCH ×3 (05:37→22:06)
[2019-02-18] MEDS: NovoLOG Insulin Flexpen SUBQ SCH ×5 (05:47→23:32)
[2019-02-18 06:12] LABS: BASOPHILS % (AUTO) 0.6 % (0.0-2.0); EOSINOPHILS % (AUTO) 2.7 % (0.0-3.0); HEMATOCRIT 26.1 % (42.0-52.0); HEMOGLOBIN 8.2 G/DL (14.2-18.0); LYMPHOCYTES % (AUTO) 8.4 % (20.0-45.0); MEAN CORPUSCULAR VOLUME 96 FL (80-99); MONOCYTES % (AUTO) 8.2 % (1.0-10.0); NEUTROPHILS % (AUTO) 80.1 % (45.0-75.0); PLATELET COUNT 123 K/UL (150-450); RED BLOOD COUNT 2.73 M/UL (4.70-6.10); RED CELL DISTRIBUTION WIDTH 14.7 % (11.6-14.8); WHITE BLOOD COUNT 7.7 K/UL (4.8-10.8)
[2019-02-18 06:19] LABS: INR 0.9 (0.9-1.1)
[2019-02-18 06:27] LABS: ALANINE AMINOTRANSFERASE 39 U/L (12-78); ALBUMIN 2.2 G/DL (3.4-5.0); ALBUMIN/GLOBULIN RATIO 0.7 (1.0-2.7); ALKALINE PHOSPHATASE 77 U/L (46-116); ANION GAP 1 mmol/L (5-15); ASPARTATE AMINO TRANSFERASE 23 U/L (15-37); BILIRUBIN,TOTAL 0.5 MG/DL (0.2-1.0); BLOOD UREA NITROGEN 14 mg/dL (7-18); CALCIUM 8.3 MG/DL (8.5-10.1); CARBON DIOXIDE 39 MMOL/L (21-32); CHLORIDE 104 MMOL/L (98-107); CREATININE 0.8 MG/DL (0.55-1.30); POTASSIUM 4.3 MMOL/L (3.5-5.1); SODIUM 144 MMOL/L (136-145)
--- NOTE | 2019-02-18 07:33 | NUR ---
HAND-OFF: Report given to GENNY Mcclain. patient is in stable condition.
--- NOTE | 2019-02-18 08:41 | General Progress Note ---
Assessment/Plan Status: stable Assessment/Plan: s: Post extubation on Trach and Vent O: Awake , following the command, seen in [facility] PHYSICAL EXAMINATION: GENERAL: An elderly male, lying in bed, not in acute distress. HEENT: Normocephalic and atraumatic. Pupils slightly responsive to light. Unable to assess oral mucosa NECK: Trach in place , Supple. No lymphadenopathy.CARDIOVASCULAR: He is tachycardic. S1, S2 normal. No murmur can be heard. LUNGS: Diminished breathing sounds at the bases. No wheezing or rhonchi. Normal breathing effort. ABDOMEN: PEG in place, Soft, nontender, and nondistended. Normal bowel sounds. No hepatosplenomegaly or ascites. No organomegaly.EXTREMITIES: No edema or cyanosis. labs: dated Feb 18 reviewed Meds: reviewed and reconciled , including Vanco and Meropenem ASSESSMENT AND PLAN: 1. Trach dependent respiratory failure. post extubation , On vent assisted Trach setting 2. Sepsis- Gram negative HCA PNA. Stable 3. Chronic obstructive pulmonary disease, end-stage, oxygen-dependent. 4. Cardiopulmonary arrest, status post resuscitation x2. 4. Hypertension. 5. Abnormal blood sugar. 6. Anemia. 7. Abn Trop: likely secondary to #4 7. GI and DVT prophylaxis. 8. Dysphegia PLAN OF CARE: NOtes from pulmonary and Cardiology reviewed Restarted on anticoagulation S/P PEG and trech placement Subjective Allergies: Coded Allergies: No Known Allergies (Unverified , 06/05/18) Objective Last 24 Hour Vital Signs Date Time Temp Pulse Resp B/P (MAP) Pulse Ox O2 Delivery O2 Flow Rate FiO2 02/18/19 06:39 80 16 100 Mechanical Ventilator 30 80 16 30 02/18/19 04:51 87 17 30 02/18/19 04:00 98.1 85 20 163/82 (109) 100 02/18/19 04:00 Mechanical Ventilator 02/18/19 04:00 30 02/18/19 03:54 87 02/18/19 03:16 84 16 100 Mechanical Ventilator 30 86 18 30 02/18/19 03:00 85 18 145/70 (95) 100 02/18/19 02:33 89 17 30 02/18/19 02:00 87 18 157/73 (101) 100 02/18/19 01:00 84 17 119/80 (93) 100 02/18/19 00:00 98.4 90 17 115/80 (92) 100 02/18/19 00:00 84 02/18/19 00:00 30 02/18/19 00:00 Mechanical Ventilator 02/18/19 00:00 87 02/17/19 23:28 85 18 100 Mechanical Ventilator 30 87 18 30 02/17/19 23:00 88 17 119/80 (93) 100 02/17/19 22:00 82 18 140/74 (96) 99 02/17/19 21:01 69 17 30 02/17/19 21:00 88 19 138/74 (95) 100 02/17/19 20:00 87 02/17/19 20:00 Mechanical Ventilator 02/17/19 20:00 98.8 87 18 153/83 (106) 100 02/17/19 19:23 67 16 100 Mechanical Ventilator 30 67 16 30 02/17/19 19:00 77 18 127/76 (93) 02/17/19 18:00 75 16 140/55 (83) 100 02/17/19 17:05 74 19 30 02/17/19 17:00 82 17 141/69 (93) 100 02/17/19 16:00 Mechanical Ventilator 02/17/19 16:00 30 02/17/19 16:00 98.6 78 17 128/73 (91) 100 02/17/19 15:06 85 17 100 Mechanical Ventilator 30 86 17 30 02/17/19 15:00 84 15 146/109 (121) 100 02/17/19 14:00 83 18 151/80 (103) 100 02/17/19 13:04 72 16 30 02/17/19 13:00 70 15 84/71 (75) 100 02/17/19 12:00 75 02/17/19 12:00 30 02/17/19 12:00 Mechanical Ventilator 02/17/19 12:00 98.8 73 21 141/55 (83) 100 02/17/19 11:37 86 19 30 02/17/19 11:00 75 17 107/65 (79) 100 02/17/19 10:55 75 16 100 Mechanical Ventilator 30 83 15 30 30 02/17/19 10:00 87 20 140/65 (90) 100 02/17/19 09:00 87 16 140/50 (80) 100 02/17/19 09:00 30 9/1/19 08:48 81 14 30 30 Intake and Output 02/17/19 02/18/19 19:00 07:00 Intake Total 820 ml 880.1 ml Output Total 1300 ml 1710 ml Balance -480 ml -829.9 ml IV Total 220 ml 385.1 ml Tube Feeding 540 ml 495 ml Other 60 ml Output Urine Total 1300 ml 1710 ml # Bowel Movements 3 Laboratory Tests 02/17/19 11:30: Potassium Level 4.1 02/18/19 05:30: Potassium Level 4.3, White Blood Count 7.7, Red Blood Count 2.73L, Hemoglobin 8.2L, Hematocrit 26.1L, Mean Corpuscular Volume 96, Mean Corpuscular Hemoglobin 30.0, Mean Corpuscular Hemoglobin Concent 31.4L, Red Cell Distribution Width 14.7, Platelet Count 123L, Mean Platelet Volume 7.1, Neutrophils (%) (Auto) 80.1H, Lymphocytes (%) (Auto) 8.4L, Monocytes (%) (Auto) 8.2, Eosinophils (%) ( Auto) 2.7, Basophils (%) (Auto) 0.6, Prothrombin Time 10.1, Prothromb Time International Ratio 0.9, Activated Partial Thromboplast Time 28, Sodium Level 144, Chloride Level 104, Carbon Dioxide Level 39H, Anion Gap 1L, Blood Urea Nitrogen 14, Creatinine 0.8, Estimat Glomerular Filtration Rate , Glucose Level 98, Calcium Level 8.3L, Total Bilirubin 0.5, Aspartate Amino Transf (AST/SGOT) 23, Alanine Aminotransferase (ALT/SGPT) 39, Alkaline Phosphatase 77, Total Protein 5.2L, Albumin 2.2L, Globulin 3.0, Albumin/Globulin Ratio 0.7L Height (Feet): 5 Height (Inches): 10.00 Weight (Pounds): 170 Brianne Henry MD Feb 18, 2019 08:41
[2019-02-18] MEDS ORDERED: Solu-MEDROL 40mg Inj IVP SCH (09:00)
--- NOTE | 2019-02-18 09:12 | NUR ---
NURSE NOTES: Dr. Henry made aware of patient status and transfer to [facility], no orders given at this time, remains tolerating tube feeding at 45ml/hr.
[2019-02-18] MEDS: Docusate 100mg tablet NG SCH ×2 (09:29→18:44)
[2019-02-18] MEDS: Eliquis 5mg tablet ORAL SCH ×2 (09:29→18:44)
[2019-02-18] MEDS: Pantoprazole Inj IVP SCH ×2 (09:30→20:16)
[2019-02-18] MEDS: Solu-MEDROL 40mg Inj IVP SCH (09:30)
--- NOTE | 2019-02-18 10:33 | GI Progress Note ---
Assessment/Plan Problems: (1) Encounter for PEG (percutaneous endoscopic gastrostomy) ICD Codes: Z43.1 - Encounter for attention to gastrostomy SNOMED: 516324651, 627701687 (2) Hypoalbuminemia ICD Codes: E88.09 - Other disorders of plasma-protein metabolism, not elsewhere classified SNOMED: 793676896 Status: unchanged Status Narrative Discussed with Dr. Aleman. Assessment/Plan s/p PEG and Trach GTF management of DVT per hematology prn transfusions ppi follow labs The patient was seen and examined at bedside and all new and available data was reviewed in the patients chart. I agree with the above findings, impression and plan. (Patient seen earlier today. Signature stamp does not reflect patient encounter time.). - Jaylen Aleman MD Subjective Gastrointestinal/Abdominal: Reports: no symptoms Objective Last 24 Hour Vital Signs Date Time Temp Pulse Resp B/P (MAP) Pulse Ox O2 Delivery O2 Flow Rate FiO2 02/18/19 09:00 98 02/18/19 08:58 88 16 30 02/18/19 08:00 Mechanical Ventilator 02/18/19 08:00 30 02/18/19 08:00 98.2 76 16 117/73 (88) 96 02/18/19 06:39 80 16 100 Mechanical Ventilator 30 80 16 30 02/18/19 04:51 87 17 30 02/18/19 04:00 98.1 85 20 163/82 (109) 100 02/18/19 04:00 Mechanical Ventilator 02/18/19 04:00 30 02/18/19 03:54 87 02/18/19 03:16 84 16 100 Mechanical Ventilator 30 86 18 30 02/18/19 03:00 85 18 145/70 (95) 100 02/18/19 02:33 89 17 30 02/18/19 02:00 87 18 157/73 (101) 100 02/18/19 01:00 84 17 119/80 (93) 100 02/18/19 00:00 98.4 90 17 115/80 (92) 100 02/18/19 00:00 84 02/18/19 00:00 30 02/18/19 00:00 Mechanical Ventilator 02/18/19 00:00 87 02/17/19 23:28 85 18 100 Mechanical Ventilator 30 87 18 30 02/17/19 23:00 88 17 119/80 (93) 100 02/17/19 22:00 82 18 140/74 (96) 99 02/17/19 21:01 69 17 30 02/17/19 21:00 88 19 138/74 (95) 100 02/17/19 20:00 87 02/17/19 20:00 Mechanical Ventilator 02/17/19 20:00 98.8 87 18 153/83 (106) 100 02/17/19 19:23 67 16 100 Mechanical Ventilator 30 67 16 30 02/17/19 19:00 77 18 127/76 (93) 02/17/19 18:00 75 16 140/55 (83) 100 02/17/19 17:05 74 19 30 02/17/19 17:00 82 17 141/69 (93) 100 02/17/19 16:00 Mechanical Ventilator 02/17/19 16:00 30 02/17/19 16:00 98.6 78 17 128/73 (91) 100 02/17/19 15:06 85 17 100 Mechanical Ventilator 30 86 17 30 02/17/19 15:00 84 15 146/109 (121) 100 02/17/19 14:00 83 18 151/80 (103) 100 02/17/19 13:04 72 16 30 02/17/19 13:00 70 15 84/71 (75) 100 02/17/19 12:00 75 02/17/19 12:00 30 02/17/19 12:00 Mechanical Ventilator 02/17/19 12:00 98.8 73 21 141/55 (83) 100 02/17/19 11:37 86 19 30 02/17/19 11:00 75 17 107/65 (79) 100 02/17/19 10:55 75 16 100 Mechanical Ventilator 30 83 15 30 30 Intake and Output 02/17/19 02/18/19 19:00 07:00 Intake Total 820 ml 880.1 ml Output Total 1300 ml 1710 ml Balance -480 ml -829.9 ml IV Total 220 ml 385.1 ml Tube Feeding 540 ml 495 ml Other 60 ml Output Urine Total 1300 ml 1710 ml # Bowel Movements 3 Laboratory Tests Test 02/17/19 11:30 02/18/19 05:30 Potassium Level 4.1 MMOL/L (3.5-5.1) 4.3 MMOL/L (3.5-5.1) White Blood Count 7.7 K/UL (4.8-10.8) Red Blood Count 2.73 M/UL (4.70-6.10) L Hemoglobin 8.2 G/DL (14.2-18.0) L Hematocrit 26.1 % (42.0-52.0) L Mean Corpuscular Volume 96 FL (80-99) Mean Corpuscular Hemoglobin 30.0 PG (27.0-31.0) Mean Corpuscular Hemoglobin Concent 31.4 G/DL (32.0-36.0) L Red Cell Distribution Width 14.7 % (11.6-14.8) Platelet Count 123 K/UL (150-450) L Mean Platelet Volume 7.1 FL (6.5-10.1) Neutrophils (%) (Auto) 80.1 % (45.0-75.0) H Lymphocytes (%) (Auto) 8.4 % (20.0-45.0) L Monocytes (%) (Auto) 8.2 % (1.0-10.0) Eosinophils (%) (Auto) 2.7 % (0.0-3.0) Basophils (%) (Auto) 0.6 % (0.0-2.0) Prothrombin Time 10.1 SEC (9.30-11.50) Prothromb Time International Ratio 0.9 (0.9-1.1) Activated Partial Thromboplast Time 28 SEC (23-33) Sodium Level 144 MMOL/L (136-145) Chloride Level 104 MMOL/L (98-107) Carbon Dioxide Level 39 MMOL/L (21-32) H Anion Gap 1 mmol/L (5-15) L Blood Urea Nitrogen 14 mg/dL (7-18) Creatinine 0.8 MG/DL (0.55-1.30) Estimat Glomerular Filtration Rate mL/min (>60) Glucose Level 98 MG/DL (74-106) Calcium Level 8.3 MG/DL (8.5-10.1) L Total Bilirubin 0.5 MG/DL (0.2-1.0) Aspartate Amino Transf (AST/SGOT) 23 U/L (15-37) Alanine Aminotransferase (ALT/SGPT) 39 U/L (12-78) Alkaline Phosphatase 77 U/L (46-116) Total Protein 5.2 G/DL (6.4-8.2) L Albumin 2.2 G/DL (3.4-5.0) L Globulin 3.0 g/dL Albumin/Globulin Ratio 0.7 (1.0-2.7) L Height (Feet): 5 Height (Inches): 10.00 Weight (Pounds): 170 General Appearance: WD/WN, no apparent distress, alert Cardiovascular: normal rate Respiratory/Chest: normal breath sounds, no respiratory distress Abdominal Exam: normal bowel sounds, non tender, soft, GT site - c/d/i Extremities: non-tender Jasper Brar NP Feb 18, 2019 10:33
--- NOTE | 2019-02-18 10:51 | Nephrology Progress Note ---
Assessment/Plan Problem List: (1) Cardiac arrest (2) Prerenal azotemia (3) Hypernatremia (4) Hypoalbuminemia (5) HTN (hypertension) Assessment Pre renal Azotemia due to - Dehydration- - High Protein catabolic state as result of Doxy and steroids HyperNatremia due to free water deficit HypoAlbuminemia Plan Sugg: repeat serum K , suspect hemolysis had PEG 02/15 Tracheostomy 02/12 keep bp in check stop D5W IV fluid Avoid Nephrotoxics Monitor lytes per consultants Subjective ROS Limited/Unobtainable: Yes Objective Objective Last 24 Hour Vital Signs Date Time Temp Pulse Resp B/P (MAP) Pulse Ox O2 Delivery O2 Flow Rate FiO2 02/18/19 09:00 98 02/18/19 08:58 88 16 30 02/18/19 08:00 85 02/18/19 08:00 Mechanical Ventilator 02/18/19 08:00 30 02/18/19 08:00 98.2 76 16 117/73 (88) 96 02/18/19 06:39 80 16 100 Mechanical Ventilator 30 80 16 30 02/18/19 04:51 87 17 30 02/18/19 04:00 98.1 85 20 163/82 (109) 100 02/18/19 04:00 Mechanical Ventilator 02/18/19 04:00 30 02/18/19 03:54 87 02/18/19 03:16 84 16 100 Mechanical Ventilator 30 86 18 30 02/18/19 03:00 85 18 145/70 (95) 100 02/18/19 02:33 89 17 30 02/18/19 02:00 87 18 157/73 (101) 100 02/18/19 01:00 84 17 119/80 (93) 100 02/18/19 00:00 98.4 90 17 115/80 (92) 100 02/18/19 00:00 84 02/18/19 00:00 30 02/18/19 00:00 Mechanical Ventilator 02/18/19 00:00 87 02/17/19 23:28 85 18 100 Mechanical Ventilator 30 87 18 30 02/17/19 23:00 88 17 119/80 (93) 100 02/17/19 22:00 82 18 140/74 (96) 99 02/17/19 21:01 69 17 30 02/17/19 21:00 88 19 138/74 (95) 100 02/17/19 20:00 87 02/17/19 20:00 Mechanical Ventilator 02/17/19 20:00 98.8 87 18 153/83 (106) 100 02/17/19 19:23 67 16 100 Mechanical Ventilator 30 67 16 30 02/17/19 19:00 77 18 127/76 (93) 02/17/19 18:00 75 16 140/55 (83) 100 02/17/19 17:05 74 19 30 02/17/19 17:00 82 17 141/69 (93) 100 02/17/19 16:00 Mechanical Ventilator 02/17/19 16:00 30 02/17/19 16:00 98.6 78 17 128/73 (91) 100 02/17/19 15:06 85 17 100 Mechanical Ventilator 30 86 17 30 02/17/19 15:00 84 15 146/109 (121) 100 02/17/19 14:00 83 18 151/80 (103) 100 02/17/19 13:04 72 16 30 02/17/19 13:00 70 15 84/71 (75) 100 02/17/19 12:00 75 02/17/19 12:00 30 02/17/19 12:00 Mechanical Ventilator 02/17/19 12:00 98.8 73 21 141/55 (83) 100 02/17/19 11:37 86 19 30 02/17/19 11:00 75 17 107/65 (79) 100 02/17/19 10:55 75 16 100 Mechanical Ventilator 30 83 15 30 30 Intake and Output 02/17/19 02/18/19 19:00 07:00 Intake Total 820 ml 880.1 ml Output Total 1300 ml 1710 ml Balance -480 ml -829.9 ml IV Total 220 ml 385.1 ml Tube Feeding 540 ml 495 ml Other 60 ml Output Urine Total 1300 ml 1710 ml # Bowel Movements 3 Laboratory Tests 02/17/19 11:30: Potassium Level 4.1 02/18/19 05:30: Potassium Level 4.3, White Blood Count 7.7, Red Blood Count 2.73L, Hemoglobin 8.2L, Hematocrit 26.1L, Mean Corpuscular Volume 96, Mean Corpuscular Hemoglobin 30.0, Mean Corpuscular Hemoglobin Concent 31.4L, Red Cell Distribution Width 14.7, Platelet Count 123L, Mean Platelet Volume 7.1, Neutrophils (%) (Auto) 80.1H, Lymphocytes (%) (Auto) 8.4L, Monocytes (%) (Auto) 8.2, Eosinophils (%) ( Auto) 2.7, Basophils (%) (Auto) 0.6, Prothrombin Time 10.1, Prothromb Time International Ratio 0.9, Activated Partial Thromboplast Time 28, Sodium Level 144, Chloride Level 104, Carbon Dioxide Level 39H, Anion Gap 1L, Blood Urea Nitrogen 14, Creatinine 0.8, Estimat Glomerular Filtration Rate , Glucose Level 98, Calcium Level 8.3L, Total Bilirubin 0.5, Aspartate Amino Transf (AST/SGOT) 23, Alanine Aminotransferase (ALT/SGPT) 39, Alkaline Phosphatase 77, Total Protein 5.2L, Albumin 2.2L, Globulin 3.0, Albumin/Globulin Ratio 0.7L Height (Feet): 5 Height (Inches): 10.00 Weight (Pounds): 170 General Appearance: no apparent distress EENT: other - trached Respiratory/Chest: decreased breath sounds Abdomen: soft, other - PEG Objective no change Felipe Salmon MD Feb 18, 2019 10:51
--- NOTE | 2019-02-18 11:00 | NUR ---
RESPIRATORY NOTE: Pt successfully weaned today for 2.0hrs from [id number] on Spont mode with a pressure support of 8cmH20. Pt tolerated weaning very well. Rn, Johny heller. Will cont to monitor pt.
--- NOTE | 2019-02-18 13:35 | Infectious Diseases Prog Note ---
Assessment/Plan Problems: (1) Aspiration pneumonia Assessment & Plan: due to pseudomonas aeruginosa , continue meropenem with higher dose for two weeks , aspiration precaution . EOT 02/21/19 (2) Leukocytosis Assessment & Plan: PARTIALLY DUE TO STEROIDS , with no evidence rule out sepsis , repeated blood culture x2 is negative , continue meropenem and vancomycin empirically pending cultures . IJ line was removed. taper steroids (3) Acute exacerbation of chronic obstructive pulmonary disease (COPD) Assessment & Plan: S/P doxycycline , on steroids and nebulizer treatment as per pulmonary (4) Cardiac arrest Assessment & Plan: etiology ? cardiology eval to rule out cardiac sources and neurology eval to evaluate his brain condition and to rule out anoxic brain injury (5) Chronic hypercapnic respiratory failure Assessment & Plan: S/P cardiac arrest , S/P tracheostomy after failing multiple weaning trials , pulmonary is following Subjective ROS Limited/Unobtainable: Yes Allergies: Coded Allergies: No Known Allergies (Unverified , 06/05/18) Subjective He was on ventilator , had tracheostomy on 02/12 , unresponsive to verbal commands, no fever or chills no diarrhea, no significant secretions from his trach Objective Vital Signs Last 24 Hour Vital Signs Date Time Temp Pulse Resp B/P (MAP) Pulse Ox O2 Delivery O2 Flow Rate FiO2 02/18/19 13:05 70 16 30 02/18/19 12:00 Mechanical Ventilator 02/18/19 12:00 30 02/18/19 12:00 97.7 82 17 156/103 (120) 96 02/18/19 12:00 80 02/18/19 11:22 78 16 98 Mechanical Ventilator 30 78 16 30 02/18/19 09:00 98 02/18/19 08:58 88 16 30 02/18/19 08:00 85 02/18/19 08:00 Mechanical Ventilator 02/18/19 08:00 30 02/18/19 08:00 98.2 76 16 117/73 (88) 96 02/18/19 06:39 80 16 100 Mechanical Ventilator 30 80 16 30 02/18/19 04:51 87 17 30 02/18/19 04:00 98.1 85 20 163/82 (109) 100 02/18/19 04:00 Mechanical Ventilator 02/18/19 04:00 30 02/18/19 03:54 87 02/18/19 03:16 84 16 100 Mechanical Ventilator 30 86 18 30 02/18/19 03:00 85 18 145/70 (95) 100 02/18/19 02:33 89 17 30 02/18/19 02:00 87 18 157/73 (101) 100 02/18/19 01:00 84 17 119/80 (93) 100 02/18/19 00:00 98.4 90 17 115/80 (92) 100 02/18/19 00:00 84 02/18/19 00:00 30 02/18/19 00:00 Mechanical Ventilator 02/18/19 00:00 87 02/17/19 23:28 85 18 100 Mechanical Ventilator 30 87 18 30 02/17/19 23:00 88 17 119/80 (93) 100 02/17/19 22:00 82 18 140/74 (96) 99 02/17/19 21:01 69 17 30 02/17/19 21:00 88 19 138/74 (95) 100 02/17/19 20:00 87 02/17/19 20:00 Mechanical Ventilator 02/17/19 20:00 98.8 87 18 153/83 (106) 100 02/17/19 19:23 67 16 100 Mechanical Ventilator 30 67 16 30 02/17/19 19:00 77 18 127/76 (93) 02/17/19 18:00 75 16 140/55 (83) 100 02/17/19 17:05 74 19 30 02/17/19 17:00 82 17 141/69 (93) 100 02/17/19 16:00 Mechanical Ventilator 02/17/19 16:00 30 02/17/19 16:00 98.6 78 17 128/73 (91) 100 02/17/19 15:06 85 17 100 Mechanical Ventilator 30 86 17 30 02/17/19 15:00 84 15 146/109 (121) 100 02/17/19 14:00 83 18 151/80 (103) 100 Height (Feet): 5 Height (Inches): 10.00 Weight (Pounds): 170 General Appearance: WD/WN, no acute distress HEENT: normocephalic, atraumatic, anicteric, mucous membranes moist Respiratory/Chest: chest wall non-tender, no respiratory distress, no accessory muscle use, decreased breath sounds, crackles/rales Cardiovascular: normal peripheral pulses, normal rate, regular rhythm, no gallop/murmur, no JVD Abdomen: normal bowel sounds, soft, non tender, no organomegaly, non distended , no mass, no scars Extremities: no cyanosis, no clubbing Skin: no rash, no lesions, no ulcers Neurologic/Psychiatric: alert, responsive Lymphatic: no neck adenopathy, no groin adenopathy Musculoskeletal: normal muscle bulk, no effusion Laboratory Tests Test 02/18/19 05:30 White Blood Count 7.7 K/UL (4.8-10.8) Red Blood Count 2.73 M/UL (4.70-6.10) L Hemoglobin 8.2 G/DL (14.2-18.0) L Hematocrit 26.1 % (42.0-52.0) L Mean Corpuscular Volume 96 FL (80-99) Mean Corpuscular Hemoglobin 30.0 PG (27.0-31.0) Mean Corpuscular Hemoglobin Concent 31.4 G/DL (32.0-36.0) L Red Cell Distribution Width 14.7 % (11.6-14.8) Platelet Count 123 K/UL (150-450) L Mean Platelet Volume 7.1 FL (6.5-10.1) Neutrophils (%) (Auto) 80.1 % (45.0-75.0) H Lymphocytes (%) (Auto) 8.4 % (20.0-45.0) L Monocytes (%) (Auto) 8.2 % (1.0-10.0) Eosinophils (%) (Auto) 2.7 % (0.0-3.0) Basophils (%) (Auto) 0.6 % (0.0-2.0) Prothrombin Time 10.1 SEC (9.30-11.50) Prothromb Time International Ratio 0.9 (0.9-1.1) Activated Partial Thromboplast Time 28 SEC (23-33) Sodium Level 144 MMOL/L (136-145) Potassium Level 4.3 MMOL/L (3.5-5.1) Chloride Level 104 MMOL/L (98-107) Carbon Dioxide Level 39 MMOL/L (21-32) H Anion Gap 1 mmol/L (5-15) L Blood Urea Nitrogen 14 mg/dL (7-18) Creatinine 0.8 MG/DL (0.55-1.30) Estimat Glomerular Filtration Rate mL/min (>60) Glucose Level 98 MG/DL (74-106) Calcium Level 8.3 MG/DL (8.5-10.1) L Total Bilirubin 0.5 MG/DL (0.2-1.0) Aspartate Amino Transf (AST/SGOT) 23 U/L (15-37) Alanine Aminotransferase (ALT/SGPT) 39 U/L (12-78) Alkaline Phosphatase 77 U/L (46-116) Total Protein 5.2 G/DL (6.4-8.2) L Albumin 2.2 G/DL (3.4-5.0) L Globulin 3.0 g/dL Albumin/Globulin Ratio 0.7 (1.0-2.7) L Current Medications Medications (Trade) Dose Ordered Sig/Brittani Route PRN Reason Start Time Stop Time Status Last Admin Dose Admin Acetaminophen (Tylenol) 650 mg Q4H PRN NG FOR MILD PAIN 02/18/19 06:15 02/25/19 10:14 Acetylcysteine (Mucomyst) 100 mg Q4HRT [facility] 02/18/19 03:00 03/14/19 14:59 02/18/19 11:21 Albuterol/ Ipratropium (Albuterol/ Ipratropium) 3 ml Q4HRT [facility] 02/18/19 03:00 02/22/19 20:00 02/18/19 11:21 Apixaban (Eliquis) 5 mg BID ORAL 02/18/19 09:00 03/19/19 17:59 02/18/19 09:29 Chlorhexidine Gluconate (Renetta-Hex 2%) 1 applic DAILY@1999 TOPIC 02/18/19 20:00 03/09/19 19:59 Dextrose (Dextrose 50%) 25 ml Q30M PRN IV Hypoglycemia 02/18/19 03:00 02/25/19 10:29 Dextrose (Dextrose 50%) 50 ml Q30M PRN IV Hypoglycemia 02/18/19 03:00 02/25/19 10:29 Docusate Sodium (Colace) 100 mg BID NG 02/18/19 09:00 03/04/19 17:59 02/18/19 09:29 Haloperidol Lactate 0.5 mg/ Dextrose 55.1 ml @ 220.4 mls/ hr Q8H PRN IVPB Agitation 02/18/19 06:15 03/12/19 14:14 Hydralazine HCl (Apresoline) 25 mg Q6H PRN NG For High Blood Pressure 02/18/19 05:15 03/06/19 16:59 Insulin Aspart (NovoLOG) Q6HR SUBQ 02/18/19 06:00 03/13/19 12:59 02/18/19 05:47 Lorazepam (Ativan 2mg/ml 1ml) 0.5 mg Q2H PRN IV ANXIETY 02/18/19 04:30 02/22/19 20:00 Meropenem 2 gm/ Sodium Chloride 110 ml @ 220 mls/hr Q8HR IVPB 02/18/19 06:00 02/21/19 23:59 02/18/19 05:37 Methylprednisolone Sodium Succinate (Solu-MEDROL) 20 mg DAILY IVP 02/18/19 09:00 03/20/19 08:59 02/18/19 09:30 Pantoprazole (Protonix) 40 mg Q12HR IVP 02/18/19 09:00 02/25/19 10:59 02/18/19 09:30 Polyethylene Glycol (Miralax) 17 gm BEDTIME NG 02/18/19 21:00 03/03/19 20:59 Vancomycin HCl (Vanco rx to dose) 1 ea DAILY PRN MISC Per rx protocol 02/18/19 09:00 03/08/19 19:59 [place] Orlando M.D. Feb 18, 2019 13:35
--- NOTE | 2019-02-18 13:45 | NUR ---
NURSE NOTES: Dr. Orlando updated of the patient care plan, no fevers noted during morning and afternoon vital signs, no verbal orders given at this time,
--- NOTE | 2019-02-18 13:50 | Surgery Progress Note ---
Surgery Progress Note Subjective Procedure Performed tracheostomy bronchoscopy Symptoms: improved Objective Last 24 Hour Vital Signs Date Time Temp Pulse Resp B/P (MAP) Pulse Ox O2 Delivery O2 Flow Rate FiO2 02/18/19 13:05 70 16 30 02/18/19 12:00 Mechanical Ventilator 02/18/19 12:00 30 02/18/19 12:00 97.7 82 17 156/103 (120) 96 02/18/19 12:00 80 02/18/19 11:22 78 16 98 Mechanical Ventilator 30 78 16 30 02/18/19 09:00 98 02/18/19 08:58 88 16 30 02/18/19 08:00 85 02/18/19 08:00 Mechanical Ventilator 02/18/19 08:00 30 02/18/19 08:00 98.2 76 16 117/73 (88) 96 02/18/19 06:39 80 16 100 Mechanical Ventilator 30 80 16 30 02/18/19 04:51 87 17 30 02/18/19 04:00 98.1 85 20 163/82 (109) 100 02/18/19 04:00 Mechanical Ventilator 02/18/19 04:00 30 02/18/19 03:54 87 02/18/19 03:16 84 16 100 Mechanical Ventilator 30 86 18 30 02/18/19 03:00 85 18 145/70 (95) 100 02/18/19 02:33 89 17 30 02/18/19 02:00 87 18 157/73 (101) 100 02/18/19 01:00 84 17 119/80 (93) 100 02/18/19 00:00 98.4 90 17 115/80 (92) 100 02/18/19 00:00 84 02/18/19 00:00 30 02/18/19 00:00 Mechanical Ventilator 02/18/19 00:00 87 02/17/19 23:28 85 18 100 Mechanical Ventilator 30 87 18 30 02/17/19 23:00 88 17 119/80 (93) 100 02/17/19 22:00 82 18 140/74 (96) 99 02/17/19 21:01 69 17 30 02/17/19 21:00 88 19 138/74 (95) 100 02/17/19 20:00 87 02/17/19 20:00 Mechanical Ventilator 02/17/19 20:00 98.8 87 18 153/83 (106) 100 02/17/19 19:23 67 16 100 Mechanical Ventilator 30 67 16 30 02/17/19 19:00 77 18 127/76 (93) 02/17/19 18:00 75 16 140/55 (83) 100 02/17/19 17:05 74 19 30 02/17/19 17:00 82 17 141/69 (93) 100 02/17/19 16:00 Mechanical Ventilator 02/17/19 16:00 30 02/17/19 16:00 98.6 78 17 128/73 (91) 100 02/17/19 15:06 85 17 100 Mechanical Ventilator 30 86 17 30 02/17/19 15:00 84 15 146/109 (121) 100 02/17/19 14:00 83 18 151/80 (103) 100 I&O Intake and Output 02/17/19 02/18/19 19:00 07:00 Intake Total 820 ml 925.1 ml Output Total 1300 ml 1710 ml Balance -480 ml -784.9 ml IV Total 220 ml 385.1 ml Tube Feeding 540 ml 540 ml Other 60 ml Output Urine Total 1300 ml 1710 ml # Bowel Movements 3 Dressing: dry Wound: dry Cardiovascular: RSR Respiratory: clear, decreased breath sounds Abdomen: soft, present bowel sounds, other, non-distended Extremities: no cyanosis Laboratory Tests Test 02/18/19 05:30 White Blood Count 7.7 K/UL (4.8-10.8) Red Blood Count 2.73 M/UL (4.70-6.10) L Hemoglobin 8.2 G/DL (14.2-18.0) L Hematocrit 26.1 % (42.0-52.0) L Mean Corpuscular Volume 96 FL (80-99) Mean Corpuscular Hemoglobin 30.0 PG (27.0-31.0) Mean Corpuscular Hemoglobin Concent 31.4 G/DL (32.0-36.0) L Red Cell Distribution Width 14.7 % (11.6-14.8) Platelet Count 123 K/UL (150-450) L Mean Platelet Volume 7.1 FL (6.5-10.1) Neutrophils (%) (Auto) 80.1 % (45.0-75.0) H Lymphocytes (%) (Auto) 8.4 % (20.0-45.0) L Monocytes (%) (Auto) 8.2 % (1.0-10.0) Eosinophils (%) (Auto) 2.7 % (0.0-3.0) Basophils (%) (Auto) 0.6 % (0.0-2.0) Prothrombin Time 10.1 SEC (9.30-11.50) Prothromb Time International Ratio 0.9 (0.9-1.1) Activated Partial Thromboplast Time 28 SEC (23-33) Sodium Level 144 MMOL/L (136-145) Potassium Level 4.3 MMOL/L (3.5-5.1) Chloride Level 104 MMOL/L (98-107) Carbon Dioxide Level 39 MMOL/L (21-32) H Anion Gap 1 mmol/L (5-15) L Blood Urea Nitrogen 14 mg/dL (7-18) Creatinine 0.8 MG/DL (0.55-1.30) Estimat Glomerular Filtration Rate mL/min (>60) Glucose Level 98 MG/DL (74-106) Calcium Level 8.3 MG/DL (8.5-10.1) L Total Bilirubin 0.5 MG/DL (0.2-1.0) Aspartate Amino Transf (AST/SGOT) 23 U/L (15-37) Alanine Aminotransferase (ALT/SGPT) 39 U/L (12-78) Alkaline Phosphatase 77 U/L (46-116) Total Protein 5.2 G/DL (6.4-8.2) L Albumin 2.2 G/DL (3.4-5.0) L Globulin 3.0 g/dL Albumin/Globulin Ratio 0.7 (1.0-2.7) L Plan Problems: (1) Respiratory distress Assessment & Plan: 73-year-old male with acute respiratory decompensation requiring intubation and intensive care unit evaluation was on vent support. Patient was recently extubated but unfortunately is not tolerating expiration very well as he requires BiPAP persistently and if taken off desaturates. Given these findings tracheostomy is potentially indicated and agree with pulmonology team and medical team that patient may benefit from tracheostomy to allow for recovery. Will obtain consent from the patient's family and patient for tracheostomy placement in hopes to have patient able to be weaned rather than reintubated. Thank you for allowing me to participate patient's care will continue with recommendations s/p trach s/p peg recovering wean vent as tolerated resume eliquis will follow thank you Kris Blake Feb 18, 2019 13:50
--- NOTE | 2019-02-18 15:16 | Pulmonolgy Critical Care Note ---
Critical Care - Asmt/Plan Assessment/Plan: Pulmonary Critical Care Progress Note HPI Patient is a 73 year olf man with previous history of COPD, CHF, HTN, DM admitted with extreme respiratory distress, intubated in the ED, subsequent Cardiac Arrest. Noted to have hypercapneic respiratory failure. s/p Tracheostomy tolerated well, s/p GT, tolerating CPAP intemittently RIJ thrombus - on AC Allergies: No Known Allergies Past Medical History: COPD/Asthma, CHF, Hypertension, DM All Other Systems: limited Physical Exam Vital signs noted General Appearance: sedated Head: normocephalic, atraumatic Eyes: bilateral eye PERRL, bilateral eye EOMI ENT: moist mm, no LN Neck: supple Respiratory: generally reduced BS Cardiovascular: tachycardia, HS1, HS2, RRR Gastrointestinal: non tender, soft Musculoskeletal: normal inspection Neurologic: sedated, no focal signs Skin: no rash, palpation normal Impression: COPD exacerbation Hypercapneic respiratory failure - s/p Tracheostomy S/p cardiac arrest in the ED CHF HTN Diabetes Plan ACVC - wean as tolerated Adjust FIO2 for sats 90-94% HHN Q4 IV Solumedrol - reduce as tolerated Sedation PRN Sz management Monitor labs PPX Antibiotics per ID DNR status OK for SDU Labs noted Chest X-Ray: No consolidation, no effusion Critical Care - Objective Last 24 Hour Vital Signs Date Time Temp Pulse Resp B/P (MAP) Pulse Ox O2 Delivery O2 Flow Rate FiO2 02/18/19 14:42 73 17 30 02/18/19 13:05 70 16 30 02/18/19 12:00 Mechanical Ventilator 02/18/19 12:00 30 02/18/19 12:00 97.7 82 17 156/103 (120) 96 02/18/19 12:00 80 02/18/19 11:22 78 16 98 Mechanical Ventilator 30 78 16 30 02/18/19 09:00 98 02/18/19 08:58 88 16 30 02/18/19 08:00 85 02/18/19 08:00 Mechanical Ventilator 02/18/19 08:00 30 02/18/19 08:00 98.2 76 16 117/73 (88) 96 02/18/19 06:39 80 16 100 Mechanical Ventilator 30 80 16 30 02/18/19 04:51 87 17 30 02/18/19 04:00 98.1 85 20 163/82 (109) 100 02/18/19 04:00 Mechanical Ventilator 02/18/19 04:00 30 02/18/19 03:54 87 02/18/19 03:16 84 16 100 Mechanical Ventilator 30 86 18 30 02/18/19 03:00 85 18 145/70 (95) 100 02/18/19 02:33 89 17 30 02/18/19 02:00 87 18 157/73 (101) 100 02/18/19 01:00 84 17 119/80 (93) 100 02/18/19 00:00 98.4 90 17 115/80 (92) 100 02/18/19 00:00 84 02/18/19 00:00 30 02/18/19 00:00 Mechanical Ventilator 02/18/19 00:00 87 02/17/19 23:28 85 18 100 Mechanical Ventilator 30 87 18 30 02/17/19 23:00 88 17 119/80 (93) 100 02/17/19 22:00 82 18 140/74 (96) 99 02/17/19 21:01 69 17 30 02/17/19 21:00 88 19 138/74 (95) 100 02/17/19 20:00 87 02/17/19 20:00 Mechanical Ventilator 02/17/19 20:00 98.8 87 18 153/83 (106) 100 02/17/19 19:23 67 16 100 Mechanical Ventilator 30 67 16 30 02/17/19 19:00 77 18 127/76 (93) 02/17/19 18:00 75 16 140/55 (83) 100 02/17/19 17:05 74 19 30 02/17/19 17:00 82 17 141/69 (93) 100 02/17/19 16:00 Mechanical Ventilator 02/17/19 16:00 30 02/17/19 16:00 98.6 78 17 128/73 (91) 100 Accucheck: 109 Critical Care - Subjective ROS Limited/Unobtainable: No FI02: 30 Vent Support Breath Rate: 16 Vent Support Mode: AC Vent Tidal Volume: 500 Sputum Amount: Small PEEP: 5.0 PIP: 18 Tube Feeding Amount: 45 I&O: Intake and Output 02/17/19 02/18/19 19:00 07:00 Intake Total 820 ml 925.1 ml Output Total 1300 ml 1710 ml Balance -480 ml -784.9 ml IV Total 220 ml 385.1 ml Tube Feeding 540 ml 540 ml Other 60 ml Output Urine Total 1300 ml 1710 ml # Bowel Movements 3 ET-Tube: 7.5 ET Position: 24 oJhny White MD Feb 18, 2019 15:15
--- NOTE | 2019-02-18 16:40 | NUR ---
NURSE NOTES: Dr. White updated on patient weaning on cpap and ps of 8, he remained weaning for approximately 2 hours, then returned to ac settings by RT, Dr. white ordered to have patient placed on weaning trial the following morning with same settings of CPAP and PS of 8 and wean for 3 hours on 02/19/19.
--- NOTE | 2019-02-18 17:15 | NUR ---
NURSE NOTES: Patient released from restraints to assess range of motion on upper and lower extremities, he is able to reposition self in bed with no assistance but gets sob with exertion and takes deep breaths, he is able to sit in bed at 90 degrees but has to be held since he is weak, patient has a strong cough reflex and is able to burp. patient repositioned back in bed with minimal assistance,
--- NOTE | 2019-02-18 19:16 | Cardiology Progress Note ---
Assessment/Plan Assessment/Plan 1. Cardiopulmonary arrest due to anoxia, 2D echo reveals normal LVEF. 2. Non-STEMI, conservative management in face of DNR. 3. Moderate aortic regurgitation. 4. Ventilatory derived respiratory failure, s/p trach placement, POD #7. 5. Hypernatremia, better with hypotonic fluids. 6. Aspiration pneumonia/leukocytosis, resolved. 7. 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 8. Thrombocytopenia, platelet count improving. 9. Emphysema. Subjective Subjective Sinus rhythm at rate of 74. FiO2 of 30%. s/p tracheostomy, POD #7 Objective Last 24 Hour Vital Signs Date Time Temp Pulse Resp B/P (MAP) Pulse Ox O2 Delivery O2 Flow Rate FiO2 02/18/19 17:10 74 16 30 02/18/19 16:00 85 02/18/19 16:00 97.3 84 19 141/87 (105) 98 02/18/19 16:00 Mechanical Ventilator 02/18/19 16:00 30 02/18/19 14:42 73 17 30 02/18/19 13:05 70 16 30 02/18/19 12:00 Mechanical Ventilator 02/18/19 12:00 30 02/18/19 12:00 97.7 82 17 156/103 (120) 96 02/18/19 12:00 80 02/18/19 11:22 78 16 98 Mechanical Ventilator 30 78 16 30 02/18/19 09:00 98 02/18/19 08:58 88 16 30 02/18/19 08:00 85 02/18/19 08:00 Mechanical Ventilator 02/18/19 08:00 30 02/18/19 08:00 98.2 76 16 117/73 (88) 96 02/18/19 06:39 80 16 100 Mechanical Ventilator 30 80 16 30 02/18/19 04:51 87 17 30 02/18/19 04:00 98.1 85 20 163/82 (109) 100 02/18/19 04:00 Mechanical Ventilator 02/18/19 04:00 30 02/18/19 03:54 87 02/18/19 03:16 84 16 100 Mechanical Ventilator 30 86 18 30 02/18/19 03:00 85 18 145/70 (95) 100 02/18/19 02:33 89 17 30 02/18/19 02:00 87 18 157/73 (101) 100 9/2/19 01:00 84 17 119/80 (93) 100 02/18/19 00:00 98.4 90 17 115/80 (92) 100 02/18/19 00:00 84 02/18/19 00:00 30 02/18/19 00:00 Mechanical Ventilator 02/18/19 00:00 87 02/17/19 23:28 85 18 100 Mechanical Ventilator 30 87 18 30 02/17/19 23:00 88 17 119/80 (93) 100 02/17/19 22:00 82 18 140/74 (96) 99 02/17/19 21:01 69 17 30 02/17/19 21:00 88 19 138/74 (95) 100 02/17/19 20:00 87 02/17/19 20:00 Mechanical Ventilator 02/17/19 20:00 98.8 87 18 153/83 (106) 100 02/17/19 19:23 67 16 100 Mechanical Ventilator 30 67 16 30 Intake and Output 02/17/19 02/18/19 19:00 07:00 Intake Total 820 ml 925.1 ml Output Total 1300 ml 1710 ml Balance -480 ml -784.9 ml IV Total 220 ml 385.1 ml Tube Feeding 540 ml 540 ml Other 60 ml Output Urine Total 1300 ml 1710 ml # Bowel Movements 3 2D Echo: LVEF 55%, moderate AR Laboratory Tests Test 02/18/19 05:30 White Blood Count 7.7 K/UL (4.8-10.8) Red Blood Count 2.73 M/UL (4.70-6.10) L Hemoglobin 8.2 G/DL (14.2-18.0) L Hematocrit 26.1 % (42.0-52.0) L Mean Corpuscular Volume 96 FL (80-99) Mean Corpuscular Hemoglobin 30.0 PG (27.0-31.0) Mean Corpuscular Hemoglobin Concent 31.4 G/DL (32.0-36.0) L Red Cell Distribution Width 14.7 % (11.6-14.8) Platelet Count 123 K/UL (150-450) L Mean Platelet Volume 7.1 FL (6.5-10.1) Neutrophils (%) (Auto) 80.1 % (45.0-75.0) H Lymphocytes (%) (Auto) 8.4 % (20.0-45.0) L Monocytes (%) (Auto) 8.2 % (1.0-10.0) Eosinophils (%) (Auto) 2.7 % (0.0-3.0) Basophils (%) (Auto) 0.6 % (0.0-2.0) Prothrombin Time 10.1 SEC (9.30-11.50) Prothromb Time International Ratio 0.9 (0.9-1.1) Activated Partial Thromboplast Time 28 SEC (23-33) Sodium Level 144 MMOL/L (136-145) Potassium Level 4.3 MMOL/L (3.5-5.1) Chloride Level 104 MMOL/L (98-107) Carbon Dioxide Level 39 MMOL/L (21-32) H Anion Gap 1 mmol/L (5-15) L Blood Urea Nitrogen 14 mg/dL (7-18) Creatinine 0.8 MG/DL (0.55-1.30) Estimat Glomerular Filtration Rate mL/min (>60) Glucose Level 98 MG/DL (74-106) Calcium Level 8.3 MG/DL (8.5-10.1) L Total Bilirubin 0.5 MG/DL (0.2-1.0) Aspartate Amino Transf (AST/SGOT) 23 U/L (15-37) Alanine Aminotransferase (ALT/SGPT) 39 U/L (12-78) Alkaline Phosphatase 77 U/L (46-116) Total Protein 5.2 G/DL (6.4-8.2) L Albumin 2.2 G/DL (3.4-5.0) L Globulin 3.0 g/dL Albumin/Globulin Ratio 0.7 (1.0-2.7) L Objective HEENT: Atraumatic, arousable, orally intubated, conjunctival pallor. NECK: Cannot assess JVD, no carotid bruit. Trach tube in place. LUNGS: Bilateral breath sounds. Few rhonchi. No wheezing. CARDIAC: Regular rhythm and rate. Normal S1 and S2. No murmurs, gallops or rubs. ABDOMEN: Soft, non-distended, + BS. EXTREMITIES: No edema, clubbing or cyanosis. Lv Zuniga MD Feb 18, 2019 19:16
--- NOTE | 2019-02-18 19:20 | NUR ---
NURSE NOTES: Received patient from GENNY Mcclain. patient is observed resting in bed, arousable to name, no s/sx of pain noted at this time. vent to trach settings are as follows: Shiley: 8, AC: 16, TV: 500, FiO2: 30%, PEEP: 5. no s/sx of respiratory distress noted at this time. G-tube site is patent and intact, running feeding at prescribed rate. HOB elevated, no residual noted. F/C is patent and intact, draining well. INOCENCIA PICC noted, patent and intact, asymptomatic. bilateral soft wrist restraints noted, pulses palpable. bed in lowest position and locked, siderails up X3, call light within reach. will continue to monitor.
--- NOTE | 2019-02-18 19:25 | NUR ---
HAND-OFF: Report given to GENNY Mac.
--- NOTE | 2019-02-18 19:50 | Hematology/Onc Progress Note ---
Assessment/Plan Assessment/Plan # Thrombocytopenia is likely due to underlying infection/sepsis v dic, reactive process --> hiv is neg, hepatitis is neg as well --> us of the abd from prior 2018 --> plt rend 140-->115-->105-->133-->110k--> 118k-->100k-->95k-->109k-->96k--> 109k-->103k --> okay for ppx as long as above 75k --> meds have been reviewed # Anemia of chronic disease, due to multifactorial causes --> anemia panel reviewed from earlier in admission and c/w acd --> hgb goal is >7 --> no hemolysis is seen --> smear has been reviewed --> hgb trend 9.3-->11.1-->9.6--->9.9-->8.6-->8.5-->8.7 # Leukocytosis/elevated white blood cell count, unspecified likely related to steroid meds --> have reviewed peripheral smear and bandemia/neutrophilia noted --> continue antibiotics if they have been started by ID team, zosyn --> monitor for resolution --> wbc trend 14-->18-->24.3-->17.3-->17-->12.6-->11.4 # Right jugular vein DVT acute --> h/h being monitored at this time --> rescan in 3 months --> eliquis restarted, no major trach bleed # COPD exacerbation with asp pna --> has been given steriods --> per id for aspiration prec on zosyn --> rochelle/vanc # Hypercapneic respiratory failure -->s/p trach/vent --> poor on weaning # S/p cardiac arrest in the ED # CHF # HTN # Diabetes # DNR status # Dysphagia with NG++ Time of note does not correspond to when patient was seen. Greatly appreciate consultation. Subjective Constitutional: Denies: no symptoms, chills, fever, malaise, weakness, other HEENT: Denies: no symptoms, eye pain, blurred vision, tearing, double vision, ear pain, ear discharge, nose pain, nose congestion, throat pain, throat swelling, mouth pain, mouth swelling, other Respiratory: Denies: no symptoms, cough, shortness of breath, SOB with excertion, SOB at rest, sputum, wheezing, other Genitourinary: Denies: no symptoms, burning, discharge, frequency, flank pain, hematuria, incontinence, pain, urgency, other Neurologic/Psychiatric: Denies: no symptoms, anxiety, depressed, emotional problems, headache, numbness, paresthesia, pre-existing deficit, seizure, tingling, tremors, weakness, other Endocrine: Denies: no symptoms, excessive sweating, flushing, intolerance to cold, intolerance to heat, increased hunger, increased thirst, increased urine, unexplained weight gain, unexplained weight loss, other Allergies: Coded Allergies: No Known Allergies (Unverified , 06/05/18) Subjective 02/01: no events to report, plt is lower, weaning trial initiated with mack gray rn, hiv neg 02/04: icu, wbc elevated, on abx 02/05: remains on vent, fighting vent, on abx remains on lovenox, on steriods 02/06: icu, on vent, vs stable, no sob or respiratory distress 02/07: remains in the icu, intubated, ng tube, weaning trial today 02/08: icu, restless and agitated, extubation pending, wbc improved 02/10: no vent, remains in icu, seen by pulshaka, extubated today, on bipap 02/11: extubated, on rochelle/vanc, labs have been reviewed 02/13: on glucerna, ngt, dopamine gtt 02/14: extubated, tracheostomy today, no fever or chills, no signs of distress, on abx 02/15: no fever, stable, egd with peg placement, no distress, discontinued eliquis, lovenox started 02/16: failed weaning, seen with amck gray rn, anticoag per surg 02/18: no events to report, no f/c, no bleeding, on eliquis on merop Objective Objective Current Medications Medications (Trade) Dose Ordered Sig/Brittani Route PRN Reason Start Time Stop Time Status Last Admin Dose Admin Acetaminophen (Tylenol) 650 mg Q4H PRN NG FOR MILD PAIN 02/18/19 06:15 02/25/19 10:14 Acetylcysteine (Mucomyst) 100 mg Q4HRT HHN 02/18/19 03:00 03/14/19 14:59 02/18/19 14:49 Albuterol/ Ipratropium (Albuterol/ Ipratropium) 3 ml Q4HRT HHN 02/18/19 03:00 02/22/19 20:00 02/18/19 14:49 Apixaban (Eliquis) 5 mg BID ORAL 02/18/19 09:00 03/19/19 17:59 02/18/19 18:44 Chlorhexidine Gluconate (Renetta-Hex 2%) 1 applic DAILY@2000 TOPIC 02/18/19 20:00 03/09/19 19:59 Dextrose (Dextrose 50%) 25 ml Q30M PRN IV Hypoglycemia 02/18/19 03:00 02/25/19 10:29 Dextrose (Dextrose 50%) 50 ml Q30M PRN IV Hypoglycemia 02/18/19 03:00 02/25/19 10:29 Docusate Sodium (Colace) 100 mg BID NG 02/18/19 09:00 03/04/19 17:59 02/18/19 18:44 Haloperidol Lactate 0.5 mg/ Dextrose 55.1 ml @ 220.4 mls/ hr Q8H PRN IVPB Agitation 02/18/19 06:15 03/12/19 14:14 Hydralazine HCl (Apresoline) 25 mg Q6H PRN NG For High Blood Pressure 02/18/19 05:15 03/06/19 16:59 Insulin Aspart (NovoLOG) Q6HR SUBQ 02/18/19 06:00 03/13/19 12:59 02/18/19 18:43 Lorazepam (Ativan 2mg/ml 1ml) 0.5 mg Q2H PRN IV ANXIETY 02/18/19 04:30 02/22/19 20:00 Meropenem 2 gm/ Sodium Chloride 110 ml @ 220 mls/hr Q8HR IVPB 02/18/19 06:00 02/21/19 23:59 02/18/19 14:51 Methylprednisolone Sodium Succinate (Solu-MEDROL) 20 mg DAILY IVP 02/18/19 09:00 03/20/19 08:59 02/18/19 09:30 Pantoprazole (Protonix) 40 mg Q12HR IVP 02/18/19 09:00 02/25/19 10:59 02/18/19 09:30 Polyethylene Glycol (Miralax) 17 gm BEDTIME NG 02/18/19 21:00 03/03/19 20:59 Vancomycin HCl (Vanco rx to dose) 1 ea DAILY PRN MISC Per rx protocol 02/18/19 09:00 03/08/19 19:59 Last 24 Hour Vital Signs Date Time Temp Pulse Resp B/P (MAP) Pulse Ox O2 Delivery O2 Flow Rate FiO2 02/18/19 17:10 74 16 30 02/18/19 16:00 85 02/18/19 16:00 97.3 84 19 141/87 (105) 98 02/18/19 16:00 Mechanical Ventilator 02/18/19 16:00 30 02/18/19 14:42 73 17 30 02/18/19 13:05 70 16 30 02/18/19 12:00 Mechanical Ventilator 02/18/19 12:00 30 02/18/19 12:00 97.7 82 17 156/103 (120) 96 02/18/19 12:00 80 02/18/19 11:22 78 16 98 Mechanical Ventilator 30 78 16 30 02/18/19 09:00 98 02/18/19 08:58 88 16 30 02/18/19 08:00 85 02/18/19 08:00 Mechanical Ventilator 02/18/19 08:00 30 02/18/19 08:00 98.2 76 16 117/73 (88) 96 02/18/19 06:39 80 16 100 Mechanical Ventilator 30 80 16 30 02/18/19 04:51 87 17 30 02/18/19 04:00 98.1 85 20 163/82 (109) 100 02/18/19 04:00 Mechanical Ventilator 02/18/19 04:00 30 02/18/19 03:54 87 02/18/19 03:16 84 16 100 Mechanical Ventilator 30 86 18 30 02/18/19 03:00 85 18 145/70 (95) 100 02/18/19 02:33 89 17 30 02/18/19 02:00 87 18 157/73 (101) 100 02/18/19 01:00 84 17 119/80 (93) 100 02/18/19 00:00 98.4 90 17 115/80 (92) 100 02/18/19 00:00 84 02/18/19 00:00 30 02/18/19 00:00 Mechanical Ventilator 02/18/19 00:00 87 02/17/19 23:28 85 18 100 Mechanical Ventilator 30 87 18 30 02/17/19 23:00 88 17 119/80 (93) 100 02/17/19 22:00 82 18 140/74 (96) 99 02/17/19 21:01 69 17 30 02/17/19 21:00 88 19 138/74 (95) 100 02/17/19 20:00 87 02/17/19 20:00 Mechanical Ventilator 02/17/19 20:00 98.8 87 18 153/83 (106) 100 02/17/19 19:23 67 16 100 Mechanical Ventilator 30 67 16 30 02/17/19 19:00 77 18 127/76 (93) 02/17/19 18:00 75 16 140/55 (83) 100 02/17/19 17:05 74 19 30 02/17/19 17:00 82 17 141/69 (93) 100 02/17/19 16:00 Mechanical Ventilator 02/17/19 16:00 30 02/17/19 16:00 98.6 78 17 128/73 (91) 100 02/17/19 15:06 85 17 100 Mechanical Ventilator 30 86 17 30 02/17/19 15:00 84 15 146/109 (121) 100 02/17/19 14:00 83 18 151/80 (103) 100 02/17/19 13:04 72 16 30 02/17/19 13:00 70 15 84/71 (75) 100 02/17/19 12:00 75 02/17/19 12:00 30 02/17/19 12:00 Mechanical Ventilator 02/17/19 12:00 98.8 73 21 141/55 (83) 100 02/17/19 11:37 86 19 30 02/17/19 11:00 75 17 107/65 (79) 100 02/17/19 10:55 75 16 100 Mechanical Ventilator 30 83 15 30 30 02/17/19 10:00 87 20 140/65 (90) 100 02/17/19 09:00 87 16 140/50 (80) 100 02/17/19 09:00 30 02/17/19 08:48 81 14 30 30 02/17/19 08:00 Mechanical Ventilator 02/17/19 08:00 84 02/17/19 08:00 98.6 69 19 155/96 (115) 96 02/17/19 07:19 100 02/17/19 07:00 82 16 138/62 (87) 100 02/17/19 06:53 84 13 100 Mechanical Ventilator 30 82 15 30 30 02/17/19 06:00 82 17 133/75 (94) 100 02/17/19 05:03 84 16 30 02/17/19 05:00 86 16 166/71 (102) 100 02/17/19 04:00 Mechanical Ventilator 02/17/19 04:00 30 02/17/19 04:00 85 02/17/19 04:00 98.5 86 18 135/68 (90) 100 02/17/19 03:00 87 16 132/51 (78) 100 02/17/19 02:22 90 16 100 Mechanical Ventilator 30 91 16 30 02/17/19 02:00 96 18 101/59 (73) 99 02/17/19 01:13 85 20 30 02/17/19 01:00 87 19 138/72 (94) 100 02/17/19 00:00 98.2 88 17 129/48 (75) 100 02/17/19 00:00 81 02/17/19 00:00 Mechanical Ventilator 02/17/19 00:00 30 02/16/19 23:00 81 15 140/65 (90) 100 02/16/19 22:44 81 17 100 Mechanical Ventilator 30 85 17 30 02/16/19 22:00 81 16 125/55 (78) 100 02/16/19 21:00 86 21 135/57 (83) 100 02/16/19 20:32 82 18 30 02/16/19 20:00 30 02/16/19 20:00 98.0 87 18 156/67 (96) 100 02/16/19 20:00 Mechanical Ventilator 02/16/19 20:00 88 Intake and Output 02/17/19 02/18/19 19:00 07:00 Intake Total 820 ml 925.1 ml Output Total 1300 ml 1710 ml Balance -480 ml -784.9 ml IV Total 220 ml 385.1 ml Tube Feeding 540 ml 540 ml Other 60 ml Output Urine Total 1300 ml 1710 ml # Bowel Movements 3 Labs Test 02/16/19 04:11 02/17/19 03:15 02/17/19 04:40 02/17/19 11:30 White Blood Count 7.5 K/UL (4.8-10.8) Red Blood Count 2.81 M/UL (4.70-6.10) Hemoglobin 8.5 G/DL (14.2-18.0) Hematocrit 27.1 % (42.0-52.0) Mean Corpuscular Volume 96 FL (80-99) Mean Corpuscular Hemoglobin 30.1 PG (27.0-31.0) Mean Corpuscular Hemoglobin Concent 31.4 G/DL (32.0-36.0) Red Cell Distribution Width 14.5 % (11.6-14.8) Platelet Count 108 K/UL (150-450) Mean Platelet Volume 8.6 FL (6.5-10.1) Neutrophils (%) (Auto) % (45.0-75.0) Lymphocytes (%) (Auto) % (20.0-45.0) Monocytes (%) (Auto) % (1.0-10.0) Eosinophils (%) (Auto) % (0.0-3.0) Basophils (%) (Auto) % (0.0-2.0) Differential Total Cells Counted 100 Neutrophils % (Manual) 84 % (45-75) Lymphocytes % (Manual) 13 % (20-45) Monocytes % (Manual) 3 % (1-10) Eosinophils % (Manual) 0 % (0-3) Basophils % (Manual) 0 % (0-2) Band Neutrophils 0 % (0-8) Platelet Estimate Decreased Platelet Morphology Normal Hypochromasia 1+ Anisocytosis 1+ Sodium Level 142 MMOL/L (136-145) 140 MMOL/L (136-145) Potassium Level 4.0 MMOL/L (3.5-5.1) 5.8 MMOL/L (3.5-5.1) 4.1 MMOL/L (3.5-5.1) Chloride Level 103 MMOL/L (98-107) 103 MMOL/L (98-107) Carbon Dioxide Level 38 MMOL/L (21-32) 34 MMOL/L (21-32) Anion Gap 2 mmol/L (5-15) 3 mmol/L (5-15) Blood Urea Nitrogen 16 mg/dL (7-18) 15 mg/dL (7-18) Creatinine 0.8 MG/DL (0.55-1.30) 0.6 MG/DL (0.55-1.30) Estimat Glomerular Filtration Rate mL/min (>60) mL/min (>60) Glucose Level 78 MG/DL (74-106) 85 MG/DL (74-106) Calcium Level 8.4 MG/DL (8.5-10.1) 8.1 MG/DL (8.5-10.1) Total Bilirubin 0.7 MG/DL (0.2-1.0) 0.8 MG/DL (0.2-1.0) Aspartate Amino Transf (AST/SGOT) 21 U/L (15-37) 37 U/L (15-37) Alanine Aminotransferase (ALT/SGPT) 41 U/L (12-78) 42 U/L (12-78) Alkaline Phosphatase 70 U/L (46-116) 70 U/L (46-116) Total Protein 4.9 G/DL (6.4-8.2) 4.8 G/DL (6.4-8.2) Albumin 2.1 G/DL (3.4-5.0) 2.1 G/DL (3.4-5.0) Globulin 2.8 g/dL 2.7 g/dL Albumin/Globulin Ratio 0.7 (1.0-2.7) 0.8 (1.0-2.7) Vancomycin Level Trough 32.8 ug/mL (5.0-12.0) Uric Acid 2.2 MG/DL (2.6-7.2) Phosphorus Level 2.3 MG/DL (2.5-4.9) Magnesium Level 2.0 MG/DL (1.8-2.4) C-Reactive Protein, Quantitative 5.4 mg/dL (0.00-0.90) Pro-B-Type Natriuretic Peptide 515 pg/mL (0-125) Test 02/18/19 05:30 White Blood Count 7.7 K/UL (4.8-10.8) Red Blood Count 2.73 M/UL (4.70-6.10) Hemoglobin 8.2 G/DL (14.2-18.0) Hematocrit 26.1 % (42.0-52.0) Mean Corpuscular Volume 96 FL (80-99) Mean Corpuscular Hemoglobin 30.0 PG (27.0-31.0) Mean Corpuscular Hemoglobin Concent 31.4 G/DL (32.0-36.0) Red Cell Distribution Width 14.7 % (11.6-14.8) Platelet Count 123 K/UL (150-450) Mean Platelet Volume 7.1 FL (6.5-10.1) Neutrophils (%) (Auto) 80.1 % (45.0-75.0) Lymphocytes (%) (Auto) 8.4 % (20.0-45.0) Monocytes (%) (Auto) 8.2 % (1.0-10.0) Eosinophils (%) (Auto) 2.7 % (0.0-3.0) Basophils (%) (Auto) 0.6 % (0.0-2.0) Prothrombin Time 10.1 SEC (9.30-11.50) Prothromb Time International Ratio 0.9 (0.9-1.1) Activated Partial Thromboplast Time 28 SEC (23-33) Sodium Level 144 MMOL/L (136-145) Potassium Level 4.3 MMOL/L (3.5-5.1) Chloride Level 104 MMOL/L (98-107) Carbon Dioxide Level 39 MMOL/L (21-32) Anion Gap 1 mmol/L (5-15) Blood Urea Nitrogen 14 mg/dL (7-18) Creatinine 0.8 MG/DL (0.55-1.30) Estimat Glomerular Filtration Rate mL/min (>60) Glucose Level 98 MG/DL (74-106) Calcium Level 8.3 MG/DL (8.5-10.1) Total Bilirubin 0.5 MG/DL (0.2-1.0) Aspartate Amino Transf (AST/SGOT) 23 U/L (15-37) Alanine Aminotransferase (ALT/SGPT) 39 U/L (12-78) Alkaline Phosphatase 77 U/L (46-116) Total Protein 5.2 G/DL (6.4-8.2) Albumin 2.2 G/DL (3.4-5.0) Globulin 3.0 g/dL Albumin/Globulin Ratio 0.7 (1.0-2.7) Height (Feet): 5 Height (Inches): 10.00 Weight (Pounds): 170 Objective General: no bleeding or chills Head: normocephalic, atraumatic Neck: supple ++ NG Respiratory: generally reduced bs, o++ trach Cardiovascular: tachycardia, HS1, HS2, RRR Gastrointestinal: non tender, soft Musculoskeletal: normal inspection Neurologic: sedated on ventilator Skin: no rash, palpation normal Conrado Morel MD Feb 18, 2019 19:50
[2019-02-18] MEDS: Dyna-Hex 2% Top Sol 2oz TOPIC SCH (20:16)
[2019-02-18] MEDS: Miralax 17gm pkt NG SCH (20:17)
--- NOTE | 2019-02-18 21:14 | Hematology/Onc Progress Note ---
Assessment/Plan Assessment/Plan LATE ENTRY NOTE 02/17/2019 Assessment/Plan Assessment/Plan Assessment/Plan # Thrombocytopenia is likely due to underlying infection/sepsis v dic, reactive process --> hiv is neg, hepatitis is neg as well --> us of the abd from prior 2018 --> plt rend 140-->115-->105-->133-->110k--> 118k-->100k-->95k-->109k-->96k--> 109k-->103k --> okay for ppx as long as above 75k --> meds have been reviewed # Anemia of chronic disease, due to multifactorial causes --> anemia panel reviewed from earlier in admission and c/w acd --> hgb goal is >7 --> no hemolysis is seen --> smear has been reviewed --> hgb trend 9.3-->11.1-->9.6--->9.9-->8.6-->8.5-->8.7 # Leukocytosis/elevated white blood cell count, unspecified likely related to steroid meds --> have reviewed peripheral smear and bandemia/neutrophilia noted --> continue antibiotics if they have been started by ID team, zosyn --> monitor for resolution --> wbc trend 14-->18-->24.3-->17.3-->17-->12.6-->11.4 # Right jugular vein DVT acute --> h/h being monitored at this time --> rescan in 3 months --> eliquis restarted, no major trach bleed # COPD exacerbation with asp pna --> has been given steriods --> per id for aspiration prec on zosyn --> rochelle/vanc # Hypercapneic respiratory failure -->s/p trach/vent --> poor on weaning # S/p cardiac arrest in the ED # CHF # HTN # Diabetes # DNR status # Dysphagia with NG++ Time of note does not correspond to when patient was seen. Greatly appreciate consultation. Subjective Allergies: Coded Allergies: No Known Allergies (Unverified , 06/05/18) Subjective Subjective: 02/01: no events to report, plt is lower, weaning trial initiated with mack gray rn, hiv neg 02/04: icu, wbc elevated, on abx 02/05: remains on vent, fighting vent, on abx remains on lovenox, on steriods 02/06: icu, on vent, vs stable, no sob or respiratory distress 02/07: remains in the icu, intubated, ng tube, weaning trial today 02/08: icu, restless and agitated, extubation pending, wbc improved 02/10: no vent, remains in icu, seen by pulshaka, extubated today, on bipap 02/11: extubated, on rochelle/vanc, labs have been reviewed 02/13: on glucerna, ngt, dopamine gtt 02/14: extubated, tracheostomy today, no fever or chills, no signs of distress, on abx 02/15: no fever, stable, egd with peg placement, no distress, discontinued eliquis, lovenox started 02/16: failed weaning, seen with mack gray rn, anticoag per surg 02/17: no events to report, no bleeding noted. on restraints. Objective Objective Current Medications Medications (Trade) Dose Ordered Sig/Brittani Route PRN Reason Start Time Stop Time Status Last Admin Dose Admin Acetaminophen (Tylenol) 650 mg Q4H PRN NG FOR MILD PAIN 02/18/19 06:15 02/25/19 10:14 Acetylcysteine (Mucomyst) 100 mg Q4HRT [facility] 02/18/19 03:00 03/14/19 14:59 02/18/19 20:11 Albuterol/ Ipratropium (Albuterol/ Ipratropium) 3 ml Q4HRT [facility] 02/18/19 03:00 02/22/19 20:00 02/18/19 20:11 Apixaban (Eliquis) 5 mg BID ORAL 02/18/19 09:00 03/19/19 17:59 02/18/19 18:44 Chlorhexidine Gluconate (Renetta-Hex 2%) 1 applic DAILY@1999 TOPIC 02/18/19 20:00 03/09/19 19:59 02/18/19 20:16 Dextrose (Dextrose 50%) 25 ml Q30M PRN IV Hypoglycemia 02/18/19 03:00 02/25/19 10:29 Dextrose (Dextrose 50%) 50 ml Q30M PRN IV Hypoglycemia 02/18/19 03:00 02/25/19 10:29 Docusate Sodium (Colace) 100 mg BID NG 02/18/19 09:00 03/04/19 17:59 02/18/19 18:44 Haloperidol Lactate 0.5 mg/ Dextrose 55.1 ml @ 220.4 mls/ hr Q8H PRN IVPB Agitation 02/18/19 06:15 03/12/19 14:14 Hydralazine HCl (Apresoline) 25 mg Q6H PRN NG For High Blood Pressure 02/18/19 05:15 03/06/19 16:59 Insulin Aspart (NovoLOG) Q6HR SUBQ 02/18/19 06:00 03/13/19 12:59 02/18/19 18:43 Lorazepam (Ativan 2mg/ml 1ml) 0.5 mg Q2H PRN IV ANXIETY 02/18/19 04:30 02/22/19 20:00 Meropenem 2 gm/ Sodium Chloride 110 ml @ 220 mls/hr Q8HR IVPB 02/18/19 06:00 02/21/19 23:59 02/18/19 14:51 Methylprednisolone Sodium Succinate (Solu-MEDROL) 20 mg DAILY IVP 02/18/19 09:00 03/20/19 08:59 02/18/19 09:30 Pantoprazole (Protonix) 40 mg Q12HR IVP 02/18/19 09:00 02/25/19 10:59 02/18/19 20:16 Polyethylene Glycol (Miralax) 17 gm BEDTIME NG 02/18/19 21:00 03/03/19 20:59 Vancomycin HCl (Vanco rx to dose) 1 ea DAILY PRN MISC Per rx protocol 02/18/19 09:00 03/08/19 19:59 Last 24 Hour Vital Signs Date Time Temp Pulse Resp B/P (MAP) Pulse Ox O2 Delivery O2 Flow Rate FiO2 02/18/19 20:00 Mechanical Ventilator 02/18/19 20:00 97.7 77 16 139/81 (100) 99 02/18/19 20:00 30 02/18/19 19:30 72 16 96 Mechanical Ventilator 30 72 16 30 02/18/19 17:10 74 16 30 02/18/19 16:00 85 02/18/19 16:00 97.3 84 19 141/87 (105) 98 02/18/19 16:00 Mechanical Ventilator 02/18/19 16:00 30 02/18/19 14:42 73 17 30 02/18/19 13:05 70 16 30 02/18/19 12:00 Mechanical Ventilator 02/18/19 12:00 30 02/18/19 12:00 97.7 82 17 156/103 (120) 96 02/18/19 12:00 80 02/18/19 11:22 78 16 98 Mechanical Ventilator 30 78 16 30 02/18/19 09:00 98 02/18/19 08:58 88 16 30 02/18/19 08:00 85 02/18/19 08:00 Mechanical Ventilator 02/18/19 08:00 30 02/18/19 08:00 98.2 76 16 117/73 (88) 96 02/18/19 06:39 80 16 100 Mechanical Ventilator 30 80 16 30 02/18/19 04:51 87 17 30 02/18/19 04:00 98.1 85 20 163/82 (109) 100 02/18/19 04:00 Mechanical Ventilator 02/18/19 04:00 30 02/18/19 03:54 87 02/18/19 03:16 84 16 100 Mechanical Ventilator 30 86 18 30 02/18/19 03:00 85 18 145/70 (95) 100 02/18/19 02:33 89 17 30 02/18/19 02:00 87 18 157/73 (101) 100 02/18/19 01:00 84 17 119/80 (93) 100 02/18/19 00:00 98.4 90 17 115/80 (92) 100 02/18/19 00:00 84 02/18/19 00:00 30 02/18/19 00:00 Mechanical Ventilator 02/18/19 00:00 87 02/17/19 23:28 85 18 100 Mechanical Ventilator 30 87 18 30 02/17/19 23:00 88 17 119/80 (93) 100 02/17/19 22:00 82 18 140/74 (96) 99 02/17/19 21:01 69 17 30 02/17/19 21:00 88 19 138/74 (95) 100 02/17/19 20:00 87 02/17/19 20:00 Mechanical Ventilator 02/17/19 20:00 98.8 87 18 153/83 (106) 100 02/17/19 19:23 67 16 100 Mechanical Ventilator 30 67 16 30 02/17/19 19:00 77 18 127/76 (93) 02/17/19 18:00 75 16 140/55 (83) 100 02/17/19 17:05 74 19 30 02/17/19 17:00 82 17 141/69 (93) 100 02/17/19 16:00 Mechanical Ventilator 02/17/19 16:00 30 02/17/19 16:00 98.6 78 17 128/73 (91) 100 02/17/19 15:06 85 17 100 Mechanical Ventilator 30 86 17 30 02/17/19 15:00 84 15 146/109 (121) 100 02/17/19 14:00 83 18 151/80 (103) 100 02/17/19 13:04 72 16 30 02/17/19 13:00 70 15 84/71 (75) 100 02/17/19 12:00 75 02/17/19 12:00 30 02/17/19 12:00 Mechanical Ventilator 02/17/19 12:00 98.8 73 21 141/55 (83) 100 02/17/19 11:37 86 19 30 02/17/19 11:00 75 17 107/65 (79) 100 02/17/19 10:55 75 16 100 Mechanical Ventilator 30 83 15 30 30 02/17/19 10:00 87 20 140/65 (90) 100 02/17/19 09:00 87 16 140/50 (80) 100 02/17/19 09:00 30 02/17/19 08:48 81 14 30 30 02/17/19 08:00 Mechanical Ventilator 02/17/19 08:00 84 02/17/19 08:00 98.6 69 19 155/96 (115) 96 02/17/19 07:19 100 02/17/19 07:00 82 16 138/62 (87) 100 02/17/19 06:53 84 13 100 Mechanical Ventilator 30 82 15 30 30 02/17/19 06:00 82 17 133/75 (94) 100 02/17/19 05:03 84 16 30 02/17/19 05:00 86 16 166/71 (102) 100 02/17/19 04:00 Mechanical Ventilator 02/17/19 04:00 30 02/17/19 04:00 85 02/17/19 04:00 98.5 86 18 135/68 (90) 100 02/17/19 03:00 87 16 132/51 (78) 100 02/17/19 02:22 90 16 100 Mechanical Ventilator 30 91 16 30 02/17/19 02:00 96 18 101/59 (73) 99 02/17/19 01:13 85 20 30 02/17/19 01:00 87 19 138/72 (94) 100 02/17/19 00:00 98.2 88 17 129/48 (75) 100 02/17/19 00:00 81 02/17/19 00:00 Mechanical Ventilator 02/17/19 00:00 30 02/16/19 23:00 81 15 140/65 (90) 100 02/16/19 22:44 81 17 100 Mechanical Ventilator 30 85 17 30 02/16/19 22:00 81 16 125/55 (78) 100 Intake and Output 02/17/19 02/18/19 19:00 07:00 Intake Total 820 ml 925.1 ml Output Total 1300 ml 1710 ml Balance -480 ml -784.9 ml IV Total 220 ml 385.1 ml Tube Feeding 540 ml 540 ml Other 60 ml Output Urine Total 1300 ml 1710 ml # Bowel Movements 3 Labs Test 02/16/19 04:11 02/17/19 03:15 02/17/19 04:40 02/17/19 11:30 White Blood Count 7.5 K/UL (4.8-10.8) Red Blood Count 2.81 M/UL (4.70-6.10) Hemoglobin 8.5 G/DL (14.2-18.0) Hematocrit 27.1 % (42.0-52.0) Mean Corpuscular Volume 96 FL (80-99) Mean Corpuscular Hemoglobin 30.1 PG (27.0-31.0) Mean Corpuscular Hemoglobin Concent 31.4 G/DL (32.0-36.0) Red Cell Distribution Width 14.5 % (11.6-14.8) Platelet Count 108 K/UL (150-450) Mean Platelet Volume 8.6 FL (6.5-10.1) Neutrophils (%) (Auto) % (45.0-75.0) Lymphocytes (%) (Auto) % (20.0-45.0) Monocytes (%) (Auto) % (1.0-10.0) Eosinophils (%) (Auto) % (0.0-3.0) Basophils (%) (Auto) % (0.0-2.0) Differential Total Cells Counted 100 Neutrophils % (Manual) 84 % (45-75) Lymphocytes % (Manual) 13 % (20-45) Monocytes % (Manual) 3 % (1-10) Eosinophils % (Manual) 0 % (0-3) Basophils % (Manual) 0 % (0-2) Band Neutrophils 0 % (0-8) Platelet Estimate Decreased Platelet Morphology Normal Hypochromasia 1+ Anisocytosis 1+ Sodium Level 142 MMOL/L (136-145) 140 MMOL/L (136-145) Potassium Level 4.0 MMOL/L (3.5-5.1) 5.8 MMOL/L (3.5-5.1) 4.1 MMOL/L (3.5-5.1) Chloride Level 103 MMOL/L (98-107) 103 MMOL/L (98-107) Carbon Dioxide Level 38 MMOL/L (21-32) 34 MMOL/L (21-32) Anion Gap 2 mmol/L (5-15) 3 mmol/L (5-15) Blood Urea Nitrogen 16 mg/dL (7-18) 15 mg/dL (7-18) Creatinine 0.8 MG/DL (0.55-1.30) 0.6 MG/DL (0.55-1.30) Estimat Glomerular Filtration Rate mL/min (>60) mL/min (>60) Glucose Level 78 MG/DL (74-106) 85 MG/DL (74-106) Calcium Level 8.4 MG/DL (8.5-10.1) 8.1 MG/DL (8.5-10.1) Total Bilirubin 0.7 MG/DL (0.2-1.0) 0.8 MG/DL (0.2-1.0) Aspartate Amino Transf (AST/SGOT) 21 U/L (15-37) 37 U/L (15-37) Alanine Aminotransferase (ALT/SGPT) 41 U/L (12-78) 42 U/L (12-78) Alkaline Phosphatase 70 U/L (46-116) 70 U/L (46-116) Total Protein 4.9 G/DL (6.4-8.2) 4.8 G/DL (6.4-8.2) Albumin 2.1 G/DL (3.4-5.0) 2.1 G/DL (3.4-5.0) Globulin 2.8 g/dL 2.7 g/dL Albumin/Globulin Ratio 0.7 (1.0-2.7) 0.8 (1.0-2.7) Vancomycin Level Trough 32.8 ug/mL (5.0-12.0) Uric Acid 2.2 MG/DL (2.6-7.2) Phosphorus Level 2.3 MG/DL (2.5-4.9) Magnesium Level 2.0 MG/DL (1.8-2.4) C-Reactive Protein, Quantitative 5.4 mg/dL (0.00-0.90) Pro-B-Type Natriuretic Peptide 515 pg/mL (0-125) Test 02/18/19 05:30 White Blood Count 7.7 K/UL (4.8-10.8) Red Blood Count 2.73 M/UL (4.70-6.10) Hemoglobin 8.2 G/DL (14.2-18.0) Hematocrit 26.1 % (42.0-52.0) Mean Corpuscular Volume 96 FL (80-99) Mean Corpuscular Hemoglobin 30.0 PG (27.0-31.0) Mean Corpuscular Hemoglobin Concent 31.4 G/DL (32.0-36.0) Red Cell Distribution Width 14.7 % (11.6-14.8) Platelet Count 123 K/UL (150-450) Mean Platelet Volume 7.1 FL (6.5-10.1) Neutrophils (%) (Auto) 80.1 % (45.0-75.0) Lymphocytes (%) (Auto) 8.4 % (20.0-45.0) Monocytes (%) (Auto) 8.2 % (1.0-10.0) Eosinophils (%) (Auto) 2.7 % (0.0-3.0) Basophils (%) (Auto) 0.6 % (0.0-2.0) Prothrombin Time 10.1 SEC (9.30-11.50) Prothromb Time International Ratio 0.9 (0.9-1.1) Activated Partial Thromboplast Time 28 SEC (23-33) Sodium Level 144 MMOL/L (136-145) Potassium Level 4.3 MMOL/L (3.5-5.1) Chloride Level 104 MMOL/L (98-107) Carbon Dioxide Level 39 MMOL/L (21-32) Anion Gap 1 mmol/L (5-15) Blood Urea Nitrogen 14 mg/dL (7-18) Creatinine 0.8 MG/DL (0.55-1.30) Estimat Glomerular Filtration Rate mL/min (>60) Glucose Level 98 MG/DL (74-106) Calcium Level 8.3 MG/DL (8.5-10.1) Total Bilirubin 0.5 MG/DL (0.2-1.0) Aspartate Amino Transf (AST/SGOT) 23 U/L (15-37) Alanine Aminotransferase (ALT/SGPT) 39 U/L (12-78) Alkaline Phosphatase 77 U/L (46-116) Total Protein 5.2 G/DL (6.4-8.2) Albumin 2.2 G/DL (3.4-5.0) Globulin 3.0 g/dL Albumin/Globulin Ratio 0.7 (1.0-2.7) Height (Feet): 5 Height (Inches): 10.00 Weight (Pounds): 170 Objective Objective General: no bleeding or chills Head: normocephalic, atraumatic Neck: supple ++ NG Respiratory: generally reduced bs, o++ trach Cardiovascular: tachycardia, HS1, HS2, RRR Gastrointestinal: non tender, soft Musculoskeletal: normal inspection Neurologic: sedated on ventilator Skin: no rash, palpation normal Marleen Tripp NP Feb 18, 2019 21:14
[2019-02-19] VITALS: BP 141/81
[2019-02-19] MEDS: Albuterol/Ipratropium 3ml neb HHN SCH ×7 (00:11→23:13)
[2019-02-19] MEDS: HALOPERIDOL LACTATE IVPB PRN ×2 (02:34→23:09)
[2019-02-19] MEDS: D5W IVPB PRN ×2 (02:34→23:09)
[2019-02-19 04:00] VITALS: BP 153/83
[2019-02-19] MEDS: Meropenem 2 GM in NS 110 ML IVPB SCH ×3 (05:16→22:10)
[2019-02-19] MEDS: NovoLOG Insulin Flexpen SUBQ SCH ×3 (06:00→18:00)
[2019-02-19 06:09] LABS: ALANINE AMINOTRANSFERASE 39 U/L (12-78); ALBUMIN 2.4 G/DL (3.4-5.0); ALBUMIN/GLOBULIN RATIO 0.7 (1.0-2.7); ALKALINE PHOSPHATASE 89 U/L (46-116); ANION GAP 2 mmol/L (5-15); ASPARTATE AMINO TRANSFERASE 22 U/L (15-37); BILIRUBIN,TOTAL 0.5 MG/DL (0.2-1.0); BLOOD UREA NITROGEN 15 mg/dL (7-18); CALCIUM 8.6 MG/DL (8.5-10.1); CARBON DIOXIDE 39 MMOL/L (21-32); CHLORIDE 104 MMOL/L (98-107); CREATININE 0.8 MG/DL (0.55-1.30); POTASSIUM 4.4 MMOL/L (3.5-5.1); SODIUM 144 MMOL/L (136-145)
[2019-02-19 06:19] LABS: BASOPHILS % (AUTO) 0.6 % (0.0-2.0); EOSINOPHILS % (AUTO) 2.9 % (0.0-3.0); HEMATOCRIT 28.7 % (42.0-52.0); HEMOGLOBIN 8.8 G/DL (14.2-18.0); LYMPHOCYTES % (AUTO) 9.7 % (20.0-45.0); MEAN CORPUSCULAR VOLUME 96 FL (80-99); MONOCYTES % (AUTO) 8.8 % (1.0-10.0); NEUTROPHILS % (AUTO) 77.9 % (45.0-75.0); PLATELET COUNT 148 K/UL (150-450); RED BLOOD COUNT 2.98 M/UL (4.70-6.10); WHITE BLOOD COUNT 8.2 K/UL (4.8-10.8)
[2019-02-19 06:22] LABS: PHOSPHORUS 1.5 MG/DL (2.5-4.9)
[2019-02-19] MEDS ORDERED: Vancomycin 1.25gm/NS Premix q24h IVPB ONE ×2 (07:00→08:00)
--- NOTE | 2019-02-19 07:24 | NUR ---
HAND-OFF: Report given to GENNY Hurtado. patient is in stable condition.
--- NOTE | 2019-02-19 07:24 | NUR ---
NURSE NOTES: Pt received from Estefania Yeung RN in stable condition with no cardiopulmonary distress noted. Pt is asleep in bed, trache to vent Shiley 8 AC 16 TV 500 FiO2 30% Peep5. GT noted running Glucerna 1.5 at 45cc/hr. F/C noted draining yellow urine with small amount of blood noted (Left message for Dr. Morel that I will hold Eliquis d/t hematuria, awaiting response). Skin alterations noted. INOCENCIA PICC noted w/ dry and intact dressing. Pt noted to have bilat soft wrist restraints with small skin tears noted on bilat wrist & covered w/ optifoam, radial pulses palpated bilaterally. Bed in lowest position w/alarm on, call light within reach, side rails up x 2, will continue to monitor pt.
--- NOTE | 2019-02-19 07:45 | NUR ---
NURSE NOTES: Dr. Morel came in to see pt and instructed me to hold lovenox and eliquis for today d/t hematuria.
[2019-02-19 08:00] VITALS: BP 158/93
[2019-02-19] MEDS: Solu-MEDROL 40mg Inj IVP SCH (08:32)
[2019-02-19] MEDS: Docusate 100mg tablet NG SCH (08:32)
[2019-02-19] MEDS: Eliquis 5mg tablet ORAL SCH ×2 (08:33→18:00)
[2019-02-19] MEDS: Pantoprazole Inj IVP SCH ×2 (08:33→20:25)
[2019-02-19] MEDS ORDERED: Sodium Phosphate 30 MM in NS 275 ML IVPB ONE (09:30)
--- NOTE | 2019-02-19 09:49 | General Progress Note ---
Assessment/Plan Status: unchanged Assessment/Plan: s: Post extubation on Trach and Vent O: Awake , following the command, seen in [facility] PHYSICAL EXAMINATION: GENERAL: An elderly male, lying in bed, not in acute distress. HEENT: Normocephalic and atraumatic. Pupils slightly responsive to light. Unable to assess oral mucosa NECK: Trach in place , Supple. No lymphadenopathy.CARDIOVASCULAR: He is tachycardic. S1, S2 normal. No murmur can be heard. LUNGS: Diminished breathing sounds at the bases. No wheezing or rhonchi. Normal breathing effort. ABDOMEN: PEG in place, Soft, nontender, and nondistended. Normal bowel sounds. No hepatosplenomegaly or ascites. No organomegaly.EXTREMITIES: No edema or cyanosis. labs: dated Feb 19 reviewed Meds: reviewed and reconciled , including Vanco and Meropenem ASSESSMENT AND PLAN: 1. Trach dependent respiratory failure. post extubation , On vent assisted Trach setting 2. Sepsis- Gram negative HCA PNA. Stable 3. Chronic obstructive pulmonary disease, end-stage, oxygen-dependent. 4. Cardiopulmonary arrest, status post resuscitation x2. 4. Hypertension. 5. Abnormal blood sugar. 6. Anemia. 7. Abn Trop: likely secondary to #4 7. GI and DVT prophylaxis. 8. Dysphegia PLAN OF CARE: NOtes from pulmonary and Cardiology reviewed Restarted on anticoagulation , with preserved hgb levels S/P PEG and trech placement Subjective Allergies: Coded Allergies: No Known Allergies (Unverified , 06/05/18) Objective Last 24 Hour Vital Signs Date Time Temp Pulse Resp B/P (MAP) Pulse Ox O2 Delivery O2 Flow Rate FiO2 02/19/19 09:35 30 02/19/19 09:33 76 22 30 30 02/19/19 08:00 99.0 86 18 158/93 (114) 98 02/19/19 08:00 30 02/19/19 06:54 79 17 98 Mechanical Ventilator 30 79 17 30 02/19/19 05:22 74 19 30 02/19/19 04:00 30 02/19/19 04:00 Mechanical Ventilator 02/19/19 04:00 75 02/19/19 04:00 97.7 84 18 153/83 (106) 99 02/19/19 03:30 86 16 100 Mechanical Ventilator 30 86 16 30 02/19/19 01:30 70 16 30 02/19/19 00:00 97.9 77 17 141/81 (101) 99 02/19/19 00:00 Mechanical Ventilator 02/19/19 00:00 75 02/19/19 00:00 30 02/18/19 23:30 75 16 97 Mechanical Ventilator 30 75 16 30 02/18/19 21:30 71 16 30 02/18/19 20:00 Mechanical Ventilator 02/18/19 20:00 86 02/18/19 20:00 97.7 77 16 139/81 (100) 99 02/18/19 20:00 30 02/18/19 19:30 72 16 96 Mechanical Ventilator 30 72 16 30 02/18/19 17:10 74 16 30 02/18/19 16:00 85 02/18/19 16:00 97.3 84 19 141/87 (105) 98 02/18/19 16:00 Mechanical Ventilator 02/18/19 16:00 30 02/18/19 14:42 73 17 30 02/18/19 13:05 70 16 30 02/18/19 12:00 Mechanical Ventilator 02/18/19 12:00 30 02/18/19 12:00 97.7 82 17 156/103 (120) 96 02/18/19 12:00 80 02/18/19 11:22 78 16 98 Mechanical Ventilator 30 78 16 30 Intake and Output 02/18/19 02/19/19 19:00 07:00 Intake Total 870 ml 1260.4 ml Output Total 2525 ml Balance -1655 ml 1260.4 ml Intake Free Water 200 ml 150 ml IV Total 110 ml 660.4 ml Tube Feeding 540 ml 450 ml Other 20 ml Output Urine Total 2525 ml # Bowel Movements 1 Laboratory Tests 02/19/19 05:15: White Blood Count 8.2, Red Blood Count 2.98L, Hemoglobin 8.8L, Hematocrit 28.7L , Mean Corpuscular Volume 96, Mean Corpuscular Hemoglobin 29.5, Mean Corpuscular Hemoglobin Concent 30.6L, Red Cell Distribution Width 15.0H, Platelet Count 148L, Mean Platelet Volume 6.7, Neutrophils (%) (Auto) 77.9H, Lymphocytes (%) (Auto) 9.7L, Monocytes (%) (Auto) 8.8, Eosinophils (%) (Auto) 2.9, Basophils (%) (Auto) 0.6, Sodium Level 144, Potassium Level 4.4, Chloride Level 104, Carbon Dioxide Level 39H, Anion Gap 2L, Blood Urea Nitrogen 15, Creatinine 0.8, Estimat Glomerular Filtration Rate , Glucose Level 97, Calcium Level 8.6, Phosphorus Level 1.5L, Magnesium Level 2.3, Total Bilirubin 0.5, Aspartate Amino Transf (AST/SGOT) 22, Alanine Aminotransferase (ALT/SGPT) 39, Alkaline Phosphatase 89, Total Protein 5.7L, Albumin 2.4L, Globulin 3.3, Albumin /Globulin Ratio 0.7L, Random Vancomycin Level 12.4 Height (Feet): 5 Height (Inches): 10.00 Weight (Pounds): 166 Brianne Henry MD Feb 19, 2019 09:49
[2019-02-19 12:00] VITALS: BP 152/100
--- NOTE | 2019-02-19 12:11 | NUR ---
RD ASSESSMENT & RECOMMENDATIONS SEE CARE ACTIVITY FOR COMPLETE ASSESSMENT DAILY ESTIMATED NEEDS: Needs based on Critical care, 61kg 22-30 kcals/kg 7606-7471 total kcals 1.2-2 g protein/kg 73-122 g total protein 25-30 mL/kg 0926-2862 total fluid mLs NUTRITION DIAGNOSIS: * Swallowing difficulty R/T respiratory status as evidenced by pt s/p cardiac arrest, now s/p trach placement, s/p PEG placement. (UPDATED) CURRENT TF:Glucerna 1.5@45ml/hr x 24 hrs ENTERAL NUTRITION RECOMMENDATIONS: Glucerna 1.5 @45ml/hr x24 hrs to provide 1080ml, 1620 kcal, 89g pro, 820ml free H2O - REC TF CHANGE TO GLUCERNA 1.5 FOR LOW VOLUME FEEDING. - Start @25ml/hr for 6 hrs, advance as tolerated 10ml q4-6 hrs to goal - Flush per MD, HOB over 30 degrees. W/ continued good TF tolerance, may increase Glucerna 1.5 by 5ml/hr to goal of 50ml/hr to better meet est needs. TF to provide 1200ml, 1800 kcal, 99g pro, 911ml free H2O when @50ml/hr x24 hrs. ADDITIONAL RECOMMENDATIONS: * Pt w/ adm: rec to RECALIBRATE bed scale for accurate updated weight + Weekly weights (obtain standing if able) * Monitor BGs closely while on steroidal meds * Lytes, daily, replete as needed * TF RECS ABOVE . .
--- NOTE | 2019-02-19 12:52 | Nephrology Progress Note ---
Assessment/Plan Problem List: (1) Cardiac arrest (2) Prerenal azotemia (3) Hypernatremia (4) Hypoalbuminemia (5) HTN (hypertension) Assessment Pre renal Azotemia due to - Dehydration- - High Protein catabolic state as result of Doxy and steroids HyperNatremia due to free water deficit HypoAlbuminemia Plan Sugg: stable from renal stand point had PEG 02/15 Tracheostomy 02/12 Phos supplement keep bp in check stop D5W IV fluid Avoid Nephrotoxics Monitor lytes per consultants Subjective ROS Limited/Unobtainable: Yes Objective Objective Last 24 Hour Vital Signs Date Time Temp Pulse Resp B/P (MAP) Pulse Ox O2 Delivery O2 Flow Rate FiO2 02/19/19 12:00 98.9 77 16 152/100 (117) 99 02/19/19 12:00 30 02/19/19 12:00 91 02/19/19 12:00 Mechanical Ventilator 02/19/19 10:48 80 16 98 Mechanical Ventilator 30 80 18 30 02/19/19 09:35 30 02/19/19 09:33 76 22 30 30 02/19/19 08:00 Mechanical Ventilator 02/19/19 08:00 82 02/19/19 08:00 99.0 86 18 158/93 (114) 98 02/19/19 08:00 30 02/19/19 06:54 79 17 98 Mechanical Ventilator 30 79 17 30 02/19/19 05:22 74 19 30 02/19/19 04:00 30 02/19/19 04:00 Mechanical Ventilator 02/19/19 04:00 75 02/19/19 04:00 97.7 84 18 153/83 (106) 99 02/19/19 03:30 86 16 100 Mechanical Ventilator 30 86 16 30 02/19/19 01:30 70 16 30 02/19/19 00:00 97.9 77 17 141/81 (101) 99 02/19/19 00:00 Mechanical Ventilator 02/19/19 00:00 75 02/19/19 00:00 30 02/18/19 23:30 75 16 97 Mechanical Ventilator 30 75 16 30 02/18/19 21:30 71 16 30 02/18/19 20:00 Mechanical Ventilator 02/18/19 20:00 86 02/18/19 20:00 97.7 77 16 139/81 (100) 99 02/18/19 20:00 30 02/18/19 19:30 72 16 96 Mechanical Ventilator 30 72 16 30 02/18/19 17:10 74 16 30 02/18/19 16:00 85 02/18/19 16:00 97.3 84 19 141/87 (105) 98 02/18/19 16:00 Mechanical Ventilator 02/18/19 16:00 30 02/18/19 14:42 73 17 30 02/18/19 13:05 70 16 30 Intake and Output 02/18/19 02/19/19 19:00 07:00 Intake Total 870 ml 1305.4 ml Output Total 2525 ml Balance -1655 ml 1305.4 ml Intake Free Water 200 ml 150 ml IV Total 110 ml 660.4 ml Tube Feeding 540 ml 495 ml Other 20 ml Output Urine Total 2525 ml # Bowel Movements 1 Laboratory Tests 02/19/19 05:15: White Blood Count 8.2, Red Blood Count 2.98L, Hemoglobin 8.8L, Hematocrit 28.7L , Mean Corpuscular Volume 96, Mean Corpuscular Hemoglobin 29.5, Mean Corpuscular Hemoglobin Concent 30.6L, Red Cell Distribution Width 15.0H, Platelet Count 148L, Mean Platelet Volume 6.7, Neutrophils (%) (Auto) 77.9H, Lymphocytes (%) (Auto) 9.7L, Monocytes (%) (Auto) 8.8, Eosinophils (%) (Auto) 2.9, Basophils (%) (Auto) 0.6, Sodium Level 144, Potassium Level 4.4, Chloride Level 104, Carbon Dioxide Level 39H, Anion Gap 2L, Blood Urea Nitrogen 15, Creatinine 0.8, Estimat Glomerular Filtration Rate , Glucose Level 97, Calcium Level 8.6, Phosphorus Level 1.5L, Magnesium Level 2.3, Total Bilirubin 0.5, Aspartate Amino Transf (AST/SGOT) 22, Alanine Aminotransferase (ALT/SGPT) 39, Alkaline Phosphatase 89, Total Protein 5.7L, Albumin 2.4L, Globulin 3.3, Albumin /Globulin Ratio 0.7L, Random Vancomycin Level 12.4 Height (Feet): 5 Height (Inches): 10.00 Weight (Pounds): 166 General Appearance: no apparent distress EENT: other - trach Respiratory/Chest: decreased breath sounds Abdomen: other - PEG Objective no change Felipe Salmon MD Feb 19, 2019 12:52
--- NOTE | 2019-02-19 12:56 | GI Progress Note ---
Assessment/Plan Problems: (1) Encounter for PEG (percutaneous endoscopic gastrostomy) ICD Codes: Z43.1 - Encounter for attention to gastrostomy SNOMED: 164416405, 227811762 (2) Hypoalbuminemia ICD Codes: E88.09 - Other disorders of plasma-protein metabolism, not elsewhere classified SNOMED: 755997438 Status: unchanged Status Narrative Discussed with Dr. Aleman. Assessment/Plan s/p PEG and Trach GTF management of DVT per hematology prn transfusions ppi follow labs The patient was seen and examined at bedside and all new and available data was reviewed in the patients chart. I agree with the above findings, impression and plan. (Patient seen earlier today. Signature stamp does not reflect patient encounter time.). - Jaylen Aleman MD Subjective Gastrointestinal/Abdominal: Reports: no symptoms Subjective limited Objective Last 24 Hour Vital Signs Date Time Temp Pulse Resp B/P (MAP) Pulse Ox O2 Delivery O2 Flow Rate FiO2 02/19/19 12:00 98.9 77 16 152/100 (117) 99 02/19/19 12:00 30 02/19/19 12:00 91 02/19/19 12:00 Mechanical Ventilator 02/19/19 10:48 80 16 98 Mechanical Ventilator 30 80 18 30 02/19/19 09:35 30 02/19/19 09:33 76 22 30 30 02/19/19 08:00 Mechanical Ventilator 02/19/19 08:00 82 02/19/19 08:00 99.0 86 18 158/93 (114) 98 02/19/19 08:00 30 02/19/19 06:54 79 17 98 Mechanical Ventilator 30 79 17 30 02/19/19 05:22 74 19 30 02/19/19 04:00 30 02/19/19 04:00 Mechanical Ventilator 02/19/19 04:00 75 02/19/19 04:00 97.7 84 18 153/83 (106) 99 02/19/19 03:30 86 16 100 Mechanical Ventilator 30 86 16 30 02/19/19 01:30 70 16 30 02/19/19 00:00 97.9 77 17 141/81 (101) 99 02/19/19 00:00 Mechanical Ventilator 02/19/19 00:00 75 02/19/19 00:00 30 02/18/19 23:30 75 16 97 Mechanical Ventilator 30 75 16 30 02/18/19 21:30 71 16 30 02/18/19 20:00 Mechanical Ventilator 02/18/19 20:00 86 02/18/19 20:00 97.7 77 16 139/81 (100) 99 02/18/19 20:00 30 02/18/19 19:30 72 16 96 Mechanical Ventilator 30 72 16 30 02/18/19 17:10 74 16 30 02/18/19 16:00 85 02/18/19 16:00 97.3 84 19 141/87 (105) 98 02/18/19 16:00 Mechanical Ventilator 02/18/19 16:00 30 02/18/19 14:42 73 17 30 02/18/19 13:05 70 16 30 Intake and Output 02/18/19 02/19/19 19:00 07:00 Intake Total 870 ml 1305.4 ml Output Total 2525 ml Balance -1655 ml 1305.4 ml Intake Free Water 200 ml 150 ml IV Total 110 ml 660.4 ml Tube Feeding 540 ml 495 ml Other 20 ml Output Urine Total 2525 ml # Bowel Movements 1 Laboratory Tests Test 02/19/19 05:15 White Blood Count 8.2 K/UL (4.8-10.8) Red Blood Count 2.98 M/UL (4.70-6.10) L Hemoglobin 8.8 G/DL (14.2-18.0) L Hematocrit 28.7 % (42.0-52.0) L Mean Corpuscular Volume 96 FL (80-99) Mean Corpuscular Hemoglobin 29.5 PG (27.0-31.0) Mean Corpuscular Hemoglobin Concent 30.6 G/DL (32.0-36.0) L Red Cell Distribution Width 15.0 % (11.6-14.8) H Platelet Count 148 K/UL (150-450) L Mean Platelet Volume 6.7 FL (6.5-10.1) Neutrophils (%) (Auto) 77.9 % (45.0-75.0) H Lymphocytes (%) (Auto) 9.7 % (20.0-45.0) L Monocytes (%) (Auto) 8.8 % (1.0-10.0) Eosinophils (%) (Auto) 2.9 % (0.0-3.0) Basophils (%) (Auto) 0.6 % (0.0-2.0) Sodium Level 144 MMOL/L (136-145) Potassium Level 4.4 MMOL/L (3.5-5.1) Chloride Level 104 MMOL/L (98-107) Carbon Dioxide Level 39 MMOL/L (21-32) H Anion Gap 2 mmol/L (5-15) L Blood Urea Nitrogen 15 mg/dL (7-18) Creatinine 0.8 MG/DL (0.55-1.30) Estimat Glomerular Filtration Rate mL/min (>60) Glucose Level 97 MG/DL (74-106) Calcium Level 8.6 MG/DL (8.5-10.1) Phosphorus Level 1.5 MG/DL (2.5-4.9) L Magnesium Level 2.3 MG/DL (1.8-2.4) Total Bilirubin 0.5 MG/DL (0.2-1.0) Aspartate Amino Transf (AST/SGOT) 22 U/L (15-37) Alanine Aminotransferase (ALT/SGPT) 39 U/L (12-78) Alkaline Phosphatase 89 U/L (46-116) Total Protein 5.7 G/DL (6.4-8.2) L Albumin 2.4 G/DL (3.4-5.0) L Globulin 3.3 g/dL Albumin/Globulin Ratio 0.7 (1.0-2.7) L Random Vancomycin Level 12.4 ug/mL Height (Feet): 5 Height (Inches): 10.00 Weight (Pounds): 166 General Appearance: no apparent distress, alert Cardiovascular: normal rate Respiratory/Chest: normal breath sounds, no respiratory distress Abdominal Exam: site Jasper Brar NP Feb 19, 2019 12:55
--- NOTE | 2019-02-19 13:00 | NUR ---
Pt placed on trache collar FiO2 30% per Dr. White
--- NOTE | 2019-02-19 13:29 | NUR ---
NURSE NOTES: Pt did not tolerate trache collar, RR noted to be 36, RT placed pt back on vent AC mode. Dr. White notified.
--- NOTE | 2019-02-19 13:39 | Hematology/Onc Progress Note ---
Assessment/Plan Assessment/Plan # Thrombocytopenia is likely due to underlying infection/sepsis v dic, reactive process --> hiv is neg, hepatitis is neg as well --> us of the abd from prior 2018 --> plt rend 140-->115-->105-->133-->110k--> 118k-->100k-->95k-->109k-->96k--> 109k-->103k->148k --> okay for ppx as long as above 75k --> meds have been reviewed --> now off blood thinners # Anemia of chronic disease, due to multifactorial causes --> anemia panel reviewed from earlier in admission and c/w acd --> hgb goal is >7 --> no hemolysis is seen --> smear has been reviewed --> hgb trend 9.3-->11.1-->9.6--->9.9-->8.6-->8.5-->8.7-->8.8 # Leukocytosis/elevated white blood cell count, unspecified likely related to steroid meds --> have reviewed peripheral smear and bandemia/neutrophilia noted --> continue antibiotics if they have been started by ID team, zosyn --> monitor for resolution --> wbc trend 14-->18-->24.3-->17.3-->17-->12.6-->11.4 # Right jugular vein DVT acute --> h/h being monitored at this time --> rescan in 3 months --> eliquis NOW ON HOLD GIVEN HEMATURIA # COPD exacerbation with asp pna --> has been given steriods --> per id for aspiration prec on zosyn --> rochelle/vanc # Hypercapneic respiratory failure -->s/p trach/vent --> poor on weaning # S/p cardiac arrest in the ED # CHF # HTN # Diabetes # DNR status # Dysphagia with NG++ Time of note does not correspond to when patient was seen. Greatly appreciate consultation. Subjective Constitutional: Denies: no symptoms, chills, fever, malaise, weakness, other HEENT: Denies: no symptoms, eye pain, blurred vision, tearing, double vision, ear pain, ear discharge, nose pain, nose congestion, throat pain, throat swelling, mouth pain, mouth swelling, other Cardiovascular: Denies: no symptoms, chest pain, edema, irregular heart rate, lightheadedness, palpitations, syncope, other Respiratory: Denies: no symptoms, cough, shortness of breath, SOB with excertion, SOB at rest, sputum, wheezing, other Gastrointestinal/Abdominal: Denies: no symptoms, abdomen distended, abdominal pain, black stools, tarry stools, blood in stool, constipated, diarrhea, difficulty swallowing, nausea, poor appetite, poor fluid intake, rectal bleeding , vomiting, other Endocrine: Denies: no symptoms, excessive sweating, flushing, intolerance to cold, intolerance to heat, increased hunger, increased thirst, increased urine, unexplained weight gain, unexplained weight loss, other Allergies: Coded Allergies: No Known Allergies (Unverified , 06/05/18) Subjective 02/01: no events to report, plt is lower, weaning trial initiated with mack gray rn, hiv neg 02/04: icu, wbc elevated, on abx 02/05: remains on vent, fighting vent, on abx remains on lovenox, on steriods 02/06: icu, on vent, vs stable, no sob or respiratory distress 02/07: remains in the icu, intubated, ng tube, weaning trial today 02/08: icu, restless and agitated, extubation pending, wbc improved 02/10: no vent, remains in icu, seen by isaac, extubated today, on bipap 02/11: extubated, on rochelle/vanc, labs have been reviewed 02/13: on glucerna, ngt, dopamine gtt 02/14: extubated, tracheostomy today, no fever or chills, no signs of distress, on abx 02/15: no fever, stable, egd with peg placement, no distress, discontinued eliquis, lovenox started 02/16: failed weaning, seen with mack gray rn, anticoag per surg 02/18: no events to report, no f/c, no bleeding, on eliquis on merop 02/19: reviewed meds, no changes, except did have hematuria in am, in go, have d/c xarelto Objective Objective Current Medications Medications (Trade) Dose Ordered Sig/Brittani Route PRN Reason Start Time Stop Time Status Last Admin Dose Admin Acetaminophen (Tylenol) 650 mg Q4H PRN NG FOR MILD PAIN 02/18/19 06:15 02/25/19 10:14 Acetylcysteine (Mucomyst) 100 mg Q4HRT N 02/18/19 03:00 03/14/19 14:59 02/19/19 10:57 Albuterol/ Ipratropium (Albuterol/ Ipratropium) 3 ml Q4HRT N 02/18/19 03:00 02/22/19 20:00 02/19/19 10:57 Apixaban (Eliquis) 5 mg BID ORAL 02/19/19 09:00 03/19/19 17:59 Chlorhexidine Gluconate (Renetta-Hex 2%) 1 applic DAILY@2000 TOPIC 02/18/19 20:00 03/09/19 19:59 02/18/19 20:16 Dextrose (Dextrose 50%) 25 ml Q30M PRN IV Hypoglycemia 02/18/19 03:00 02/25/19 10:29 Dextrose (Dextrose 50%) 50 ml Q30M PRN IV Hypoglycemia 02/18/19 03:00 02/25/19 10:29 Docusate Sodium (Colace) 100 mg BID NG 02/18/19 09:00 03/04/19 17:59 02/19/19 08:32 Haloperidol Lactate 0.5 mg/ Dextrose 55.1 ml @ 220.4 mls/ hr Q8H PRN IVPB Agitation 02/18/19 06:15 03/12/19 14:14 02/19/19 02:34 Hydralazine HCl (Apresoline) 25 mg Q6H PRN NG For High Blood Pressure 02/18/19 05:15 03/06/19 16:59 Insulin Aspart (NovoLOG) Q6HR SUBQ 02/18/19 06:00 03/13/19 12:59 02/18/19 18:43 Lorazepam (Ativan 2mg/ml 1ml) 0.5 mg Q2H PRN IV ANXIETY 02/18/19 04:30 02/22/19 20:00 Meropenem 2 gm/ Sodium Chloride 110 ml @ 220 mls/hr Q8HR IVPB 02/18/19 06:00 9/5/19 23:59 02/19/19 05:16 Methylprednisolone Sodium Succinate (Solu-MEDROL) 10 mg DAILY IVP 02/20/19 09:00 03/22/19 08:59 Pantoprazole (Protonix) 40 mg Q12HR IVP 02/18/19 09:00 02/25/19 10:59 02/19/19 08:33 Polyethylene Glycol (Miralax) 17 gm BEDTIME NG 02/18/19 21:00 03/03/19 20:59 Sodium Phosphate 30 mm/Sodium Chloride 285 ml @ 47.5 mls/hr ONCE ONCE IVPB 02/19/19 09:30 02/19/19 15:29 02/19/19 10:27 Vancomycin HCl (Vanco rx to dose) 1 ea DAILY PRN MISC Per rx protocol 02/18/19 09:00 03/08/19 19:59 Last 24 Hour Vital Signs Date Time Temp Pulse Resp B/P (MAP) Pulse Ox O2 Delivery O2 Flow Rate FiO2 02/19/19 12:00 98.9 77 16 152/100 (117) 99 02/19/19 12:00 30 02/19/19 12:00 91 02/19/19 12:00 Mechanical Ventilator 02/19/19 10:48 80 16 98 Mechanical Ventilator 30 80 18 30 02/19/19 09:35 30 02/19/19 09:33 76 22 30 30 02/19/19 08:00 Mechanical Ventilator 02/19/19 08:00 82 02/19/19 08:00 99.0 86 18 158/93 (114) 98 02/19/19 08:00 30 02/19/19 06:54 79 17 98 Mechanical Ventilator 30 79 17 30 02/19/19 05:22 74 19 30 02/19/19 04:00 30 02/19/19 04:00 Mechanical Ventilator 02/19/19 04:00 75 02/19/19 04:00 97.7 84 18 153/83 (106) 99 02/19/19 03:30 86 16 100 Mechanical Ventilator 30 86 16 30 02/19/19 01:30 70 16 30 02/19/19 00:00 97.9 77 17 141/81 (101) 99 02/19/19 00:00 Mechanical Ventilator 02/19/19 00:00 75 02/19/19 00:00 30 02/18/19 23:30 75 16 97 Mechanical Ventilator 30 75 16 30 02/18/19 21:30 71 16 30 02/18/19 20:00 Mechanical Ventilator 02/18/19 20:00 86 02/18/19 20:00 97.7 77 16 139/81 (100) 99 02/18/19 20:00 30 02/18/19 19:30 72 16 96 Mechanical Ventilator 30 72 16 30 02/18/19 17:10 74 16 30 02/18/19 16:00 85 02/18/19 16:00 97.3 84 19 141/87 (105) 98 02/18/19 16:00 Mechanical Ventilator 02/18/19 16:00 30 02/18/19 14:42 73 17 30 02/18/19 13:05 70 16 30 02/18/19 12:00 Mechanical Ventilator 02/18/19 12:00 30 02/18/19 12:00 97.7 82 17 156/103 (120) 96 02/18/19 12:00 80 02/18/19 11:22 78 16 98 Mechanical Ventilator 30 78 16 30 02/18/19 09:00 98 02/18/19 08:58 88 16 30 02/18/19 08:00 85 02/18/19 08:00 Mechanical Ventilator 02/18/19 08:00 30 02/18/19 08:00 98.2 76 16 117/73 (88) 96 02/18/19 06:39 80 16 100 Mechanical Ventilator 30 80 16 30 02/18/19 04:51 87 17 30 02/18/19 04:00 98.1 85 20 163/82 (109) 100 02/18/19 04:00 Mechanical Ventilator 02/18/19 04:00 30 02/18/19 03:54 87 02/18/19 03:16 84 16 100 Mechanical Ventilator 30 86 18 30 02/18/19 03:00 85 18 145/70 (95) 100 02/18/19 02:33 89 17 30 02/18/19 02:00 87 18 157/73 (101) 100 02/18/19 01:00 84 17 119/80 (93) 100 02/18/19 00:00 98.4 90 17 115/80 (92) 100 02/18/19 00:00 84 02/18/19 00:00 30 02/18/19 00:00 Mechanical Ventilator 02/18/19 00:00 87 02/17/19 23:28 85 18 100 Mechanical Ventilator 30 87 18 30 02/17/19 23:00 88 17 119/80 (93) 100 02/17/19 22:00 82 18 140/74 (96) 99 02/17/19 21:01 69 17 30 02/17/19 21:00 88 19 138/74 (95) 100 02/17/19 20:00 87 02/17/19 20:00 Mechanical Ventilator 02/17/19 20:00 98.8 87 18 153/83 (106) 100 02/17/19 19:23 67 16 100 Mechanical Ventilator 30 67 16 30 02/17/19 19:00 77 18 127/76 (93) 02/17/19 18:00 75 16 140/55 (83) 100 02/17/19 17:05 74 19 30 02/17/19 17:00 82 17 141/69 (93) 100 02/17/19 16:00 Mechanical Ventilator 02/17/19 16:00 30 02/17/19 16:00 98.6 78 17 128/73 (91) 100 02/17/19 15:06 85 17 100 Mechanical Ventilator 30 86 17 30 02/17/19 15:00 84 15 146/109 (121) 100 02/17/19 14:00 83 18 151/80 (103) 100 Intake and Output 02/18/19 02/19/19 19:00 07:00 Intake Total 870 ml 1305.4 ml Output Total 2525 ml Balance -1655 ml 1305.4 ml Intake Free Water 200 ml 150 ml IV Total 110 ml 660.4 ml Tube Feeding 540 ml 495 ml Other 20 ml Output Urine Total 2525 ml # Bowel Movements 1 Labs Test 02/17/19 03:15 02/17/19 04:40 02/17/19 11:30 02/18/19 05:30 Vancomycin Level Trough 32.8 ug/mL (5.0-12.0) Sodium Level 140 MMOL/L (136-145) 144 MMOL/L (136-145) Potassium Level 5.8 MMOL/L (3.5-5.1) 4.1 MMOL/L (3.5-5.1) 4.3 MMOL/L (3.5-5.1) Chloride Level 103 MMOL/L (98-107) 104 MMOL/L (98-107) Carbon Dioxide Level 34 MMOL/L (21-32) 39 MMOL/L (21-32) Anion Gap 3 mmol/L (5-15) 1 mmol/L (5-15) Blood Urea Nitrogen 15 mg/dL (7-18) 14 mg/dL (7-18) Creatinine 0.6 MG/DL (0.55-1.30) 0.8 MG/DL (0.55-1.30) Estimat Glomerular Filtration Rate mL/min (>60) mL/min (>60) Glucose Level 85 MG/DL (74-106) 98 MG/DL (74-106) Uric Acid 2.2 MG/DL (2.6-7.2) Calcium Level 8.1 MG/DL (8.5-10.1) 8.3 MG/DL (8.5-10.1) Phosphorus Level 2.3 MG/DL (2.5-4.9) Magnesium Level 2.0 MG/DL (1.8-2.4) Total Bilirubin 0.8 MG/DL (0.2-1.0) 0.5 MG/DL (0.2-1.0) Aspartate Amino Transf (AST/SGOT) 37 U/L (15-37) 23 U/L (15-37) Alanine Aminotransferase (ALT/SGPT) 42 U/L (12-78) 39 U/L (12-78) Alkaline Phosphatase 70 U/L (46-116) 77 U/L (46-116) C-Reactive Protein, Quantitative 5.4 mg/dL (0.00-0.90) Pro-B-Type Natriuretic Peptide 515 pg/mL (0-125) Total Protein 4.8 G/DL (6.4-8.2) 5.2 G/DL (6.4-8.2) Albumin 2.1 G/DL (3.4-5.0) 2.2 G/DL (3.4-5.0) Globulin 2.7 g/dL 3.0 g/dL Albumin/Globulin Ratio 0.8 (1.0-2.7) 0.7 (1.0-2.7) White Blood Count 7.7 K/UL (4.8-10.8) Red Blood Count 2.73 M/UL (4.70-6.10) Hemoglobin 8.2 G/DL (14.2-18.0) Hematocrit 26.1 % (42.0-52.0) Mean Corpuscular Volume 96 FL (80-99) Mean Corpuscular Hemoglobin 30.0 PG (27.0-31.0) Mean Corpuscular Hemoglobin Concent 31.4 G/DL (32.0-36.0) Red Cell Distribution Width 14.7 % (11.6-14.8) Platelet Count 123 K/UL (150-450) Mean Platelet Volume 7.1 FL (6.5-10.1) Neutrophils (%) (Auto) 80.1 % (45.0-75.0) Lymphocytes (%) (Auto) 8.4 % (20.0-45.0) Monocytes (%) (Auto) 8.2 % (1.0-10.0) Eosinophils (%) (Auto) 2.7 % (0.0-3.0) Basophils (%) (Auto) 0.6 % (0.0-2.0) Prothrombin Time 10.1 SEC (9.30-11.50) Prothromb Time International Ratio 0.9 (0.9-1.1) Activated Partial Thromboplast Time 28 SEC (23-33) Test 02/19/19 05:15 White Blood Count 8.2 K/UL (4.8-10.8) Red Blood Count 2.98 M/UL (4.70-6.10) Hemoglobin 8.8 G/DL (14.2-18.0) Hematocrit 28.7 % (42.0-52.0) Mean Corpuscular Volume 96 FL (80-99) Mean Corpuscular Hemoglobin 29.5 PG (27.0-31.0) Mean Corpuscular Hemoglobin Concent 30.6 G/DL (32.0-36.0) Red Cell Distribution Width 15.0 % (11.6-14.8) Platelet Count 148 K/UL (150-450) Mean Platelet Volume 6.7 FL (6.5-10.1) Neutrophils (%) (Auto) 77.9 % (45.0-75.0) Lymphocytes (%) (Auto) 9.7 % (20.0-45.0) Monocytes (%) (Auto) 8.8 % (1.0-10.0) Eosinophils (%) (Auto) 2.9 % (0.0-3.0) Basophils (%) (Auto) 0.6 % (0.0-2.0) Sodium Level 144 MMOL/L (136-145) Potassium Level 4.4 MMOL/L (3.5-5.1) Chloride Level 104 MMOL/L (98-107) Carbon Dioxide Level 39 MMOL/L (21-32) Anion Gap 2 mmol/L (5-15) Blood Urea Nitrogen 15 mg/dL (7-18) Creatinine 0.8 MG/DL (0.55-1.30) Estimat Glomerular Filtration Rate mL/min (>60) Glucose Level 97 MG/DL (74-106) Calcium Level 8.6 MG/DL (8.5-10.1) Phosphorus Level 1.5 MG/DL (2.5-4.9) Magnesium Level 2.3 MG/DL (1.8-2.4) Total Bilirubin 0.5 MG/DL (0.2-1.0) Aspartate Amino Transf (AST/SGOT) 22 U/L (15-37) Alanine Aminotransferase (ALT/SGPT) 39 U/L (12-78) Alkaline Phosphatase 89 U/L (46-116) Total Protein 5.7 G/DL (6.4-8.2) Albumin 2.4 G/DL (3.4-5.0) Globulin 3.3 g/dL Albumin/Globulin Ratio 0.7 (1.0-2.7) Random Vancomycin Level 12.4 ug/mL Height (Feet): 5 Height (Inches): 10.00 Weight (Pounds): 166 Objective General: no bleeding or chills Head: normocephalic, atraumatic Neck: supple ++ NG Respiratory: generally reduced bs, ++ trach Cardiovascular: tachycardia, HS1, HS2, RRR Gastrointestinal: non tender, soft Musculoskeletal: normal inspection Neurologic: sedated on ventilator Skin: no rash, palpation normal gu: Conrado Lundberg MD Feb 19, 2019 13:39
[2019-02-19 16:00] VITALS: BP 131/69
--- NOTE | 2019-02-19 16:34 | NUR ---
CASE MANAGEMENT: REVIEW 02/19/2019 SI:COPD EXACERBATION. ASPIRATION PNA. T 98.9 HR 77 RR 16 B/P 152/100 SATS 99% ON MECH VENT FIO2 30 CO2 39 IS:SOLU MEDROL IV Q12H ELIQUIS PO BID PROTONIX IV Q12H SDU
--- NOTE | 2019-02-19 18:19 | NUR ---
RESPIRATORY NOTE: Received pt on Sh 8 on AC 16 VT 500 30% FIO2 PEEP 5. Patient was awake and alert sating 97-100%Patient breath sounds are rhonchi bilaterally. Patient was Weaned on CPAP PS 6 and was sating 100% and doing fine. Patient was tolerating well. Dr then ordered T-peice then ABG within 30 minutes. Patient only tolerated 15 minutes before being called by nurse about desating and in distress. I then switched patient back to AC. Patient relaxed within [address] said to continue CPAP PS 6 in the morning. Ambu bag at bedside and vent alarms are on and audible. will continue to monitor.
--- NOTE | 2019-02-19 18:24 | Surgery Progress Note ---
Surgery Progress Note Subjective Procedure Performed tracheostomy bronchoscopy Symptoms: improved, tolerating diet, voiding well, passing flatus, BM, pain decreased Objective Last 24 Hour Vital Signs Date Time Temp Pulse Resp B/P (MAP) Pulse Ox O2 Delivery O2 Flow Rate FiO2 02/19/19 17:14 69 16 30 02/19/19 16:00 30 02/19/19 16:00 91 02/19/19 16:00 Mechanical Ventilator 02/19/19 16:00 97.9 73 16 131/69 (89) 99 02/19/19 14:55 78 16 97 Mechanical Ventilator 30 78 17 30 02/19/19 14:54 99 02/19/19 14:00 78 21 30 02/19/19 12:00 98.9 77 16 152/100 (117) 99 02/19/19 12:00 30 02/19/19 12:00 91 02/19/19 12:00 Mechanical Ventilator 02/19/19 10:48 80 16 98 Mechanical Ventilator 30 80 18 30 02/19/19 09:35 30 02/19/19 09:33 76 22 30 30 02/19/19 08:00 Mechanical Ventilator 02/19/19 08:00 82 02/19/19 08:00 99.0 86 18 158/93 (114) 98 02/19/19 08:00 30 02/19/19 06:54 79 17 98 Mechanical Ventilator 30 79 17 30 02/19/19 05:22 74 19 30 02/19/19 04:00 30 02/19/19 04:00 Mechanical Ventilator 02/19/19 04:00 75 02/19/19 04:00 97.7 84 18 153/83 (106) 99 02/19/19 03:30 86 16 100 Mechanical Ventilator 30 86 16 30 02/19/19 01:30 70 16 30 02/19/19 00:00 97.9 77 17 141/81 (101) 99 02/19/19 00:00 Mechanical Ventilator 02/19/19 00:00 75 02/19/19 00:00 30 02/18/19 23:30 75 16 97 Mechanical Ventilator 30 75 16 30 02/18/19 21:30 71 16 30 02/18/19 20:00 Mechanical Ventilator 02/18/19 20:00 86 02/18/19 20:00 97.7 77 16 139/81 (100) 99 02/18/19 20:00 30 02/18/19 19:30 72 16 96 Mechanical Ventilator 30 72 16 30 I&O Intake and Output 02/18/19 02/19/19 19:00 07:00 Intake Total 870 ml 1305.4 ml Output Total 2525 ml Balance -1655 ml 1305.4 ml Intake Free Water 200 ml 150 ml IV Total 110 ml 660.4 ml Tube Feeding 540 ml 495 ml Other 20 ml Output Urine Total 2525 ml # Bowel Movements 1 Dressing: dry Wound: clean Drains: other Cardiovascular: RSR Respiratory: clear Abdomen: soft, flat, non-tender, present bowel sounds, non-distended Extremities: no cyanosis, other Laboratory Tests Test 02/19/19 05:15 White Blood Count 8.2 K/UL (4.8-10.8) Red Blood Count 2.98 M/UL (4.70-6.10) L Hemoglobin 8.8 G/DL (14.2-18.0) L Hematocrit 28.7 % (42.0-52.0) L Mean Corpuscular Volume 96 FL (80-99) Mean Corpuscular Hemoglobin 29.5 PG (27.0-31.0) Mean Corpuscular Hemoglobin Concent 30.6 G/DL (32.0-36.0) L Red Cell Distribution Width 15.0 % (11.6-14.8) H Platelet Count 148 K/UL (150-450) L Mean Platelet Volume 6.7 FL (6.5-10.1) Neutrophils (%) (Auto) 77.9 % (45.0-75.0) H Lymphocytes (%) (Auto) 9.7 % (20.0-45.0) L Monocytes (%) (Auto) 8.8 % (1.0-10.0) Eosinophils (%) (Auto) 2.9 % (0.0-3.0) Basophils (%) (Auto) 0.6 % (0.0-2.0) Sodium Level 144 MMOL/L (136-145) Potassium Level 4.4 MMOL/L (3.5-5.1) Chloride Level 104 MMOL/L (98-107) Carbon Dioxide Level 39 MMOL/L (21-32) H Anion Gap 2 mmol/L (5-15) L Blood Urea Nitrogen 15 mg/dL (7-18) Creatinine 0.8 MG/DL (0.55-1.30) Estimat Glomerular Filtration Rate mL/min (>60) Glucose Level 97 MG/DL (74-106) Calcium Level 8.6 MG/DL (8.5-10.1) Phosphorus Level 1.5 MG/DL (2.5-4.9) L Magnesium Level 2.3 MG/DL (1.8-2.4) Total Bilirubin 0.5 MG/DL (0.2-1.0) Aspartate Amino Transf (AST/SGOT) 22 U/L (15-37) Alanine Aminotransferase (ALT/SGPT) 39 U/L (12-78) Alkaline Phosphatase 89 U/L (46-116) Total Protein 5.7 G/DL (6.4-8.2) L Albumin 2.4 G/DL (3.4-5.0) L Globulin 3.3 g/dL Albumin/Globulin Ratio 0.7 (1.0-2.7) L Random Vancomycin Level 12.4 ug/mL Plan Problems: (1) Respiratory distress Assessment & Plan: 73-year-old male with acute respiratory decompensation requiring intubation and intensive care unit evaluation was on vent support. Patient was recently extubated but unfortunately is not tolerating expiration very well as he requires BiPAP persistently and if taken off desaturates. Given these findings tracheostomy is potentially indicated and agree with pulmonology team and medical team that patient may benefit from tracheostomy to allow for recovery. Will obtain consent from the patient's family and patient for tracheostomy placement in hopes to have patient able to be weaned rather than reintubated. Thank you for allowing me to participate patient's care will continue with recommendations s/p trach s/p peg recovering wean vent as tolerated will follow thank you Kris Blake Feb 19, 2019 18:24
--- NOTE | 2019-02-19 18:24 | Pre-Procedure Note/Attestation ---
Pre-Procedure Note/Attestation Complete Prior to Procedure Planned Procedure: not applicable Procedure Narrative: tracheostomy Indications for Procedure Pre-Operative Diagnosis: respiratory insufficiency Attestation I attest that I discussed the nature of the procedure; its benefits; risks and complications; and alternatives (and the risks and benefits of such alternatives ), prior to the procedure, with the patient (or the patient's legal event representative). I attest that, if there was a reasonable possibility of needing a blood transfusion, the patient (or the patient's legal event representative) was given the [facility] standardized written summary, pursuant to the [place] Blood Safety Act ([place] Health and Safety Code # 1645, as amended). I attest that I re-evaluated the patient just prior to the surgery and that there has been no change in the patient's H&P, except as documented below: Kris Blake Feb 19, 2019 18:24
--- NOTE | 2019-02-19 18:29 | Pulmonolgy Critical Care Note ---
Critical Care - Asmt/Plan Assessment/Plan: Pulmonary Critical Care Progress Note HPI Patient is a 73 year olf man with previous history of COPD, CHF, HTN, DM admitted with extreme respiratory distress, intubated in the ED, subsequent Cardiac Arrest. Noted to have hypercapneic respiratory failure. s/p Tracheostomy tolerated well, s/p GT, tolerating CPAP intemittently - PS 6 today, did not tolerate TC RIJ thrombus - on AC Allergies: No Known Allergies Past Medical History: COPD/Asthma, CHF, Hypertension, DM All Other Systems: limited Physical Exam Vital signs noted General Appearance: sedated Head: normocephalic, atraumatic Eyes: bilateral eye PERRL, bilateral eye EOMI ENT: moist mm, no LN Neck: supple Respiratory: generally reduced BS Cardiovascular: tachycardia, HS1, HS2, RRR Gastrointestinal: non tender, soft Musculoskeletal: normal inspection Neurologic: sedated, no focal signs Skin: no rash, palpation normal Impression: COPD exacerbation Hypercapneic respiratory failure - s/p Tracheostomy S/p cardiac arrest in the ED CHF HTN Diabetes Plan ACVC - wean as tolerated Adjust FIO2 for sats 90-94% HHN Q4 IV Solumedrol - reduce as tolerated Sedation PRN Sz management Monitor labs PPX Antibiotics per ID DNR status OK for SDU Labs noted Chest X-Ray: No consolidation, no effusion Critical Care - Objective Last 24 Hour Vital Signs Date Time Temp Pulse Resp B/P (MAP) Pulse Ox O2 Delivery O2 Flow Rate FiO2 02/19/19 17:14 69 16 30 02/19/19 16:00 30 02/19/19 16:00 91 02/19/19 16:00 Mechanical Ventilator 02/19/19 16:00 97.9 73 16 131/69 (89) 99 02/19/19 14:55 78 16 97 Mechanical Ventilator 30 78 17 30 02/19/19 14:54 99 02/19/19 14:00 78 21 30 02/19/19 12:00 98.9 77 16 152/100 (117) 99 02/19/19 12:00 30 02/19/19 12:00 91 02/19/19 12:00 Mechanical Ventilator 02/19/19 10:48 80 16 98 Mechanical Ventilator 30 80 18 30 02/19/19 09:35 30 02/19/19 09:33 76 22 30 30 02/19/19 08:00 Mechanical Ventilator 02/19/19 08:00 82 02/19/19 08:00 99.0 86 18 158/93 (114) 98 02/19/19 08:00 30 02/19/19 06:54 79 17 98 Mechanical Ventilator 30 79 17 30 02/19/19 05:22 74 19 30 02/19/19 04:00 30 02/19/19 04:00 Mechanical Ventilator 02/19/19 04:00 75 02/19/19 04:00 97.7 84 18 153/83 (106) 99 02/19/19 03:30 86 16 100 Mechanical Ventilator 30 86 16 30 02/19/19 01:30 70 16 30 02/19/19 00:00 97.9 77 17 141/81 (101) 99 02/19/19 00:00 Mechanical Ventilator 02/19/19 00:00 75 02/19/19 00:00 30 02/18/19 23:30 75 16 97 Mechanical Ventilator 30 75 16 30 02/18/19 21:30 71 16 30 02/18/19 20:00 Mechanical Ventilator 02/18/19 20:00 86 02/18/19 20:00 97.7 77 16 139/81 (100) 99 02/18/19 20:00 30 02/18/19 19:30 72 16 96 Mechanical Ventilator 30 72 16 30 Accucheck: 114 Critical Care - Subjective ROS Limited/Unobtainable: No FI02: 30 Vent Support Breath Rate: 16 Vent Support Mode: AC Vent Tidal Volume: 500 Sputum Amount: Small PEEP: 5.0 PIP: 21 Tube Feeding Amount: 45 I&O: Intake and Output 02/18/19 02/19/19 19:00 07:00 Intake Total 870 ml 1305.4 ml Output Total 2525 ml Balance -1655 ml 1305.4 ml Intake Free Water 200 ml 150 ml IV Total 110 ml 660.4 ml Tube Feeding 540 ml 495 ml Other 20 ml Output Urine Total 2525 ml # Bowel Movements 1 ET-Tube: 7.5 ET Position: 24 Johny White MD Feb 19, 2019 18:29
--- NOTE | 2019-02-19 19:15 | NUR ---
NURSE NOTES: Received patient from GENNY Hurtado. patient is observed resting in bed, denies pain at this time. vent to trach settings are as follows: Shiley: 8, AC: 16, TV: 500, FiO2: 30%, PEEP: 5. no s/sx of respiratory distress noted at this time. G-tube site is patent and intact, running feeding at prescribed rate. HOB elevated, no residual noted. F/C is patent and intact, draining well. skin alterations noted. INOCENCIA PICC line is patent and intact, running fluids TKO. bed in lowest position and locked, siderails up X3, call light within reach. will continue to monitor. Addendum: 02/19/19 at 2003 by MIK OCHOA RN RN bilateral soft restraints removed as per order. bilateral radial pulses palpable.
--- NOTE | 2019-02-19 19:18 | NUR ---
RESPIRATORY NOTE: Received pt on AC 16, 500VT, 30%, PEEP +5. Pt is trach-dependent w/ a cuffed, Shiley 8 tube. Pt is alert/awake, follows commands. B/S bogdan. rhonchi, sxn small amounts of thick, pale-yellow to bridges-yellow secretions. Vent plugged into red outlet, ambubag at bedside. Pt in no apparent distress at this time. Will continue to monitor pt.
--- NOTE | 2019-02-19 19:20 | NUR ---
HAND-OFF: Report given to Estefania Yeung RN. Pt in stable condition.
--- NOTE | 2019-02-19 19:29 | Cardiology Progress Note ---
Assessment/Plan Assessment/Plan 1. Cardiopulmonary arrest due to anoxia, 2D echo reveals normal LVEF. 2. Non-STEMI, conservative management in face of DNR. 3. Moderate aortic regurgitation. 4. Ventilatory derived respiratory failure, s/p trach placement, POD #8. 5. Hypernatremia, better with hypotonic fluids. 6. Aspiration pneumonia/leukocytosis, resolved. 7. 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 8. Thrombocytopenia, resolved. 9. Emphysema. Subjective Subjective Sinus rhythm at rate of 69. FiO2 of 30%. s/p tracheostomy, POD #8 Objective Last 24 Hour Vital Signs Date Time Temp Pulse Resp B/P (MAP) Pulse Ox O2 Delivery O2 Flow Rate FiO2 02/19/19 17:14 69 16 30 02/19/19 16:00 30 02/19/19 16:00 91 02/19/19 16:00 Mechanical Ventilator 02/19/19 16:00 97.9 73 16 131/69 (89) 99 02/19/19 14:55 78 16 97 Mechanical Ventilator 30 78 17 30 02/19/19 14:54 99 02/19/19 14:00 78 21 30 02/19/19 12:00 98.9 77 16 152/100 (117) 99 02/19/19 12:00 30 02/19/19 12:00 91 02/19/19 12:00 Mechanical Ventilator 02/19/19 10:48 80 16 98 Mechanical Ventilator 30 80 18 30 02/19/19 09:35 30 02/19/19 09:33 76 22 30 30 02/19/19 08:00 Mechanical Ventilator 02/19/19 08:00 82 02/19/19 08:00 99.0 86 18 158/93 (114) 98 02/19/19 08:00 30 02/19/19 06:54 79 17 98 Mechanical Ventilator 30 79 17 30 02/19/19 05:22 74 19 30 02/19/19 04:00 30 02/19/19 04:00 Mechanical Ventilator 02/19/19 04:00 75 02/19/19 04:00 97.7 84 18 153/83 (106) 99 02/19/19 03:30 86 16 100 Mechanical Ventilator 30 86 16 30 02/19/19 01:30 70 16 30 02/19/19 00:00 97.9 77 17 141/81 (101) 99 9/3/19 00:00 Mechanical Ventilator 02/19/19 00:00 75 02/19/19 00:00 30 02/18/19 23:30 75 16 97 Mechanical Ventilator 30 75 16 30 02/18/19 21:30 71 16 30 02/18/19 20:00 Mechanical Ventilator 02/18/19 20:00 86 02/18/19 20:00 97.7 77 16 139/81 (100) 99 02/18/19 20:00 30 02/18/19 19:30 72 16 96 Mechanical Ventilator 30 72 16 30 Intake and Output 02/18/19 02/19/19 19:00 07:00 Intake Total 870 ml 1305.4 ml Output Total 2525 ml Balance -1655 ml 1305.4 ml Intake Free Water 200 ml 150 ml IV Total 110 ml 660.4 ml Tube Feeding 540 ml 495 ml Other 20 ml Output Urine Total 2525 ml # Bowel Movements 1 2D Echo: LVEF 55%, moderate AR Laboratory Tests Test 02/19/19 05:15 White Blood Count 8.2 K/UL (4.8-10.8) Red Blood Count 2.98 M/UL (4.70-6.10) L Hemoglobin 8.8 G/DL (14.2-18.0) L Hematocrit 28.7 % (42.0-52.0) L Mean Corpuscular Volume 96 FL (80-99) Mean Corpuscular Hemoglobin 29.5 PG (27.0-31.0) Mean Corpuscular Hemoglobin Concent 30.6 G/DL (32.0-36.0) L Red Cell Distribution Width 15.0 % (11.6-14.8) H Platelet Count 148 K/UL (150-450) L Mean Platelet Volume 6.7 FL (6.5-10.1) Neutrophils (%) (Auto) 77.9 % (45.0-75.0) H Lymphocytes (%) (Auto) 9.7 % (20.0-45.0) L Monocytes (%) (Auto) 8.8 % (1.0-10.0) Eosinophils (%) (Auto) 2.9 % (0.0-3.0) Basophils (%) (Auto) 0.6 % (0.0-2.0) Sodium Level 144 MMOL/L (136-145) Potassium Level 4.4 MMOL/L (3.5-5.1) Chloride Level 104 MMOL/L (98-107) Carbon Dioxide Level 39 MMOL/L (21-32) H Anion Gap 2 mmol/L (5-15) L Blood Urea Nitrogen 15 mg/dL (7-18) Creatinine 0.8 MG/DL (0.55-1.30) Estimat Glomerular Filtration Rate mL/min (>60) Glucose Level 97 MG/DL (74-106) Calcium Level 8.6 MG/DL (8.5-10.1) Phosphorus Level 1.5 MG/DL (2.5-4.9) L Magnesium Level 2.3 MG/DL (1.8-2.4) Total Bilirubin 0.5 MG/DL (0.2-1.0) Aspartate Amino Transf (AST/SGOT) 22 U/L (15-37) Alanine Aminotransferase (ALT/SGPT) 39 U/L (12-78) Alkaline Phosphatase 89 U/L (46-116) Total Protein 5.7 G/DL (6.4-8.2) L Albumin 2.4 G/DL (3.4-5.0) L Globulin 3.3 g/dL Albumin/Globulin Ratio 0.7 (1.0-2.7) L Random Vancomycin Level 12.4 ug/mL Objective HEENT: Atraumatic, arousable, orally intubated, conjunctival pallor. NECK: Cannot assess JVD, no carotid bruit. Trach tube in place. LUNGS: Bilateral breath sounds. Few rhonchi. No wheezing. CARDIAC: Regular rhythm and rate. Normal S1 and S2. No murmurs, gallops or rubs. ABDOMEN: Soft, non-distended, + BS. EXTREMITIES: No edema, clubbing or cyanosis. Lv Zuniga MD Feb 19, 2019 19:29
--- NOTE | 2019-02-19 19:33 | Infectious Diseases Prog Note ---
Assessment/Plan Problems: (1) Aspiration pneumonia Assessment & Plan: due to pseudomonas aeruginosa , continue meropenem with higher dose for two weeks , aspiration precaution . EOT 02/21/19 (2) Leukocytosis Assessment & Plan: PARTIALLY DUE TO STEROIDS , with no evidence of sepsis, or bacteremia . repeated blood culture x2 is negative , continue meropenem and vancomycin empirically to cover for pneumonia and possible sepsis . IJ line was removed. taper steroids (3) Acute exacerbation of chronic obstructive pulmonary disease (COPD) Assessment & Plan: S/P doxycycline , on steroids and nebulizer treatment as per pulmonary (4) Cardiac arrest Assessment & Plan: etiology ? cardiology eval to rule out cardiac sources and neurology eval to evaluate his brain condition and to rule out anoxic brain injury (5) Chronic hypercapnic respiratory failure Assessment & Plan: S/P cardiac arrest , S/P tracheostomy after failing multiple weaning trials , pulmonary is following Subjective ROS Limited/Unobtainable: Yes Allergies: Coded Allergies: No Known Allergies (Unverified , 06/05/18) Subjective He was put back on ventilator since didn't tolerate neck collar , S/P tracheostomy on 02/12 , unresponsive to verbal commands, no fever or chills no diarrhea, no significant secretions from his trach Objective Vital Signs Last 24 Hour Vital Signs Date Time Temp Pulse Resp B/P (MAP) Pulse Ox O2 Delivery O2 Flow Rate FiO2 02/19/19 19:30 79 16 100 Mechanical Ventilator 30 78 16 30 02/19/19 17:14 69 16 30 02/19/19 16:00 30 02/19/19 16:00 91 02/19/19 16:00 Mechanical Ventilator 02/19/19 16:00 97.9 73 16 131/69 (89) 99 02/19/19 14:55 78 16 97 Mechanical Ventilator 30 78 17 30 02/19/19 14:54 99 02/19/19 14:00 78 21 30 02/19/19 12:00 98.9 77 16 152/100 (117) 99 02/19/19 12:00 30 02/19/19 12:00 91 02/19/19 12:00 Mechanical Ventilator 02/19/19 10:48 80 16 98 Mechanical Ventilator 30 80 18 30 02/19/19 09:35 30 02/19/19 09:33 76 22 30 30 02/19/19 08:00 Mechanical Ventilator 02/19/19 08:00 82 9/3/19 08:00 99.0 86 18 158/93 (114) 98 02/19/19 08:00 30 02/19/19 06:54 79 17 98 Mechanical Ventilator 30 79 17 30 02/19/19 05:22 74 19 30 02/19/19 04:00 30 02/19/19 04:00 Mechanical Ventilator 02/19/19 04:00 75 02/19/19 04:00 97.7 84 18 153/83 (106) 99 02/19/19 03:30 86 16 100 Mechanical Ventilator 30 86 16 30 02/19/19 01:30 70 16 30 02/19/19 00:00 97.9 77 17 141/81 (101) 99 02/19/19 00:00 Mechanical Ventilator 02/19/19 00:00 75 02/19/19 00:00 30 02/18/19 23:30 75 16 97 Mechanical Ventilator 30 75 16 30 02/18/19 21:30 71 16 30 02/18/19 20:00 Mechanical Ventilator 02/18/19 20:00 86 02/18/19 20:00 97.7 77 16 139/81 (100) 99 02/18/19 20:00 30 Height (Feet): 5 Height (Inches): 10.00 Weight (Pounds): 166 General Appearance: no acute distress, cachetic HEENT: normocephalic, atraumatic, anicteric, mucous membranes moist, PERRL, EOMI, pharynx normal, supple, no JVD Respiratory/Chest: chest wall non-tender, no respiratory distress, no accessory muscle use, decreased breath sounds, crackles/rales Cardiovascular: normal peripheral pulses, normal rate, regular rhythm, no gallop/murmur, no JVD Abdomen: normal bowel sounds, soft, non tender, no organomegaly, non distended , no mass, no scars Extremities: no cyanosis, no clubbing Skin: no rash, no lesions Neurologic/Psychiatric: alert, unresponsiveness Lymphatic: no neck adenopathy, no groin adenopathy Musculoskeletal: normal muscle bulk, no effusion Laboratory Tests Test 02/19/19 05:15 White Blood Count 8.2 K/UL (4.8-10.8) Red Blood Count 2.98 M/UL (4.70-6.10) L Hemoglobin 8.8 G/DL (14.2-18.0) L Hematocrit 28.7 % (42.0-52.0) L Mean Corpuscular Volume 96 FL (80-99) Mean Corpuscular Hemoglobin 29.5 PG (27.0-31.0) Mean Corpuscular Hemoglobin Concent 30.6 G/DL (32.0-36.0) L Red Cell Distribution Width 15.0 % (11.6-14.8) H Platelet Count 148 K/UL (150-450) L Mean Platelet Volume 6.7 FL (6.5-10.1) Neutrophils (%) (Auto) 77.9 % (45.0-75.0) H Lymphocytes (%) (Auto) 9.7 % (20.0-45.0) L Monocytes (%) (Auto) 8.8 % (1.0-10.0) Eosinophils (%) (Auto) 2.9 % (0.0-3.0) Basophils (%) (Auto) 0.6 % (0.0-2.0) Sodium Level 144 MMOL/L (136-145) Potassium Level 4.4 MMOL/L (3.5-5.1) Chloride Level 104 MMOL/L (98-107) Carbon Dioxide Level 39 MMOL/L (21-32) H Anion Gap 2 mmol/L (5-15) L Blood Urea Nitrogen 15 mg/dL (7-18) Creatinine 0.8 MG/DL (0.55-1.30) Estimat Glomerular Filtration Rate mL/min (>60) Glucose Level 97 MG/DL (74-106) Calcium Level 8.6 MG/DL (8.5-10.1) Phosphorus Level 1.5 MG/DL (2.5-4.9) L Magnesium Level 2.3 MG/DL (1.8-2.4) Total Bilirubin 0.5 MG/DL (0.2-1.0) Aspartate Amino Transf (AST/SGOT) 22 U/L (15-37) Alanine Aminotransferase (ALT/SGPT) 39 U/L (12-78) Alkaline Phosphatase 89 U/L (46-116) Total Protein 5.7 G/DL (6.4-8.2) L Albumin 2.4 G/DL (3.4-5.0) L Globulin 3.3 g/dL Albumin/Globulin Ratio 0.7 (1.0-2.7) L Random Vancomycin Level 12.4 ug/mL Current Medications Medications (Trade) Dose Ordered Sig/Brittani Route PRN Reason Start Time Stop Time Status Last Admin Dose Admin Acetaminophen (Tylenol) 650 mg Q4H PRN NG FOR MILD PAIN 02/18/19 06:15 02/25/19 10:14 Acetylcysteine (Mucomyst) 100 mg Q4HRT N 02/18/19 03:00 03/14/19 14:59 02/19/19 19:15 Albuterol/ Ipratropium (Albuterol/ Ipratropium) 3 ml Q4HRT N 02/18/19 03:00 02/22/19 20:00 02/19/19 19:15 Apixaban (Eliquis) 5 mg BID ORAL 02/19/19 09:00 03/19/19 17:59 Chlorhexidine Gluconate (Renetta-Hex 2%) 1 applic DAILY@2000 TOPIC 02/18/19 20:00 03/09/19 19:59 02/18/19 20:16 Dextrose (Dextrose 50%) 25 ml Q30M PRN IV Hypoglycemia 02/18/19 03:00 02/25/19 10:29 Dextrose (Dextrose 50%) 50 ml Q30M PRN IV Hypoglycemia 02/18/19 03:00 02/25/19 10:29 Haloperidol Lactate 0.5 mg/ Dextrose 55.1 ml @ 220.4 mls/ hr Q8H PRN IVPB Agitation 02/18/19 06:15 03/12/19 14:14 02/19/19 02:34 Hydralazine HCl (Apresoline) 25 mg Q6H PRN NG For High Blood Pressure 02/18/19 05:15 03/06/19 16:59 Insulin Aspart (NovoLOG) Q6HR SUBQ 02/18/19 06:00 03/13/19 12:59 02/18/19 18:43 Lorazepam (Ativan 2mg/ml 1ml) 0.5 mg Q2H PRN IV ANXIETY 02/18/19 04:30 02/22/19 20:00 Meropenem 2 gm/ Sodium Chloride 110 ml @ 220 mls/hr Q8HR IVPB 02/18/19 06:00 02/21/19 23:59 02/19/19 14:43 Methylprednisolone Sodium Succinate (Solu-MEDROL) 10 mg DAILY IVP 02/20/19 09:00 03/22/19 08:59 Pantoprazole (Protonix) 40 mg Q12HR IVP 02/18/19 09:00 02/25/19 10:59 02/19/19 08:33 Polyethylene Glycol (Miralax) 17 gm BEDTIME NG 02/18/19 21:00 03/03/19 20:59 Vancomycin HCl (Vanco rx to dose) 1 ea DAILY PRN MISC Per rx protocol 02/18/19 09:00 03/08/19 19:59 [place] Orlando M.D. Feb 19, 2019 19:33
[2019-02-19 20:00] VITALS: BP 142/60
[2019-02-19] MEDS: Dyna-Hex 2% Top Sol 2oz TOPIC SCH (20:25)
[2019-02-19] MEDS: Miralax 17gm pkt NG SCH (20:26)
[2019-02-20] VITALS (7 sets, daily range): BP systolic 128–150; BP diastolic 60–85
[2019-02-20] MEDS: Albuterol/Ipratropium 3ml neb HHN SCH ×6 (03:12→22:54)
[2019-02-20] MEDS: LORazepam Inj 2mg/ml 1ml IV PRN ×2 (04:04→12:06)
[2019-02-20 04:45] LABS: BASOPHILS % (AUTO) 0.6 % (0.0-2.0); EOSINOPHILS % (AUTO) 3.6 % (0.0-3.0); HEMATOCRIT 26.5 % (42.0-52.0); HEMOGLOBIN 8.2 G/DL (14.2-18.0); LYMPHOCYTES % (AUTO) 9.2 % (20.0-45.0); MEAN CORPUSCULAR VOLUME 97 FL (80-99); MONOCYTES % (AUTO) 10.3 % (1.0-10.0); NEUTROPHILS % (AUTO) 76.2 % (45.0-75.0); PLATELET COUNT 140 K/UL (150-450); RED BLOOD COUNT 2.74 M/UL (4.70-6.10); RED CELL DISTRIBUTION WIDTH 14.8 % (11.6-14.8); WHITE BLOOD COUNT 6.8 K/UL (4.8-10.8)
[2019-02-20 05:11] LABS: ALANINE AMINOTRANSFERASE 36 U/L (12-78); ALBUMIN 2.3 G/DL (3.4-5.0); ALBUMIN/GLOBULIN RATIO 0.7 (1.0-2.7); ALKALINE PHOSPHATASE 82 U/L (46-116); ANION GAP 0 mmol/L (5-15); ASPARTATE AMINO TRANSFERASE 20 U/L (15-37); BILIRUBIN,TOTAL 0.5 MG/DL (0.2-1.0); BLOOD UREA NITROGEN 16 mg/dL (7-18); CALCIUM 8.3 MG/DL (8.5-10.1); CARBON DIOXIDE 39 MMOL/L (21-32); CHLORIDE 105 MMOL/L (98-107); CREATININE 0.8 MG/DL (0.55-1.30); POTASSIUM 4.2 MMOL/L (3.5-5.1); SODIUM 144 MMOL/L (136-145)
[2019-02-20] MEDS: Meropenem 2 GM in NS 110 ML IVPB SCH ×3 (05:54→22:23)
[2019-02-20] MEDS: NovoLOG Insulin Flexpen SUBQ SCH ×5 (06:00→23:55)
--- NOTE | 2019-02-20 07:25 | NUR ---
RESPIRATORY NOTE: Received pt on AC 16 VT 500 30% PEEP +5. Pt is trach dependent with a cuffed shiley 8. Pt is alert and awake. Breathsounds bilateral rhonchi, suctioned with thick, white/yellow secretions, no complication. Vent is plugged into red outlet. Ambubag and back up trach at bedside. No signs of distress. Will continue to monitor.
--- NOTE | 2019-02-20 07:41 | General Progress Note ---
Assessment/Plan Problem List: (1) COPD (chronic obstructive pulmonary disease) ICD Codes: J44.9 - Chronic obstructive pulmonary disease, unspecified SNOMED: 66233115 Qualifiers: Qualified Codes: J44.1 - Chronic obstructive pulmonary disease with (acute) exacerbation (2) Cardiac arrest ICD Codes: I46.9 - Cardiac arrest, cause unspecified SNOMED: 060497210 (3) HTN (hypertension) ICD Codes: I10 - Essential (primary) hypertension SNOMED: 58631981 (4) Encounter for PEG (percutaneous endoscopic gastrostomy) ICD Codes: Z43.1 - Encounter for attention to gastrostomy SNOMED: 499298100, 747546523 Status: unchanged Assessment/Plan: s/p PEG and Trach GTF management of DVT per hematology Eliquis on hold due to hematuria Subjective ROS Limited/Unobtainable: No Allergies: Coded Allergies: No Known Allergies (Unverified , 06/05/18) Objective Last 24 Hour Vital Signs Date Time Temp Pulse Resp B/P (MAP) Pulse Ox O2 Delivery O2 Flow Rate FiO2 02/20/19 07:25 82 17 100 Mechanical Ventilator 30 82 16 30 02/20/19 05:06 81 18 30 02/20/19 04:00 Mechanical Ventilator 02/20/19 04:00 73 02/20/19 04:00 98.2 73 17 138/84 (102) 100 02/20/19 04:00 30 02/20/19 03:14 82 17 98 Mechanical Ventilator 30 82 17 30 02/20/19 01:10 67 16 30 02/20/19 00:00 Mechanical Ventilator 02/20/19 00:00 98.4 73 17 128/64 (85) 100 02/20/19 00:00 30 02/20/19 00:00 67 02/19/19 23:15 68 17 99 Mechanical Ventilator 30 68 17 30 02/19/19 21:00 80 18 30 02/19/19 20:00 69 02/19/19 20:00 Mechanical Ventilator 02/19/19 20:00 30 02/19/19 20:00 98.2 65 16 142/60 (87) 97 02/19/19 19:30 79 16 100 Mechanical Ventilator 30 78 16 30 02/19/19 17:14 69 16 30 02/19/19 16:00 30 02/19/19 16:00 91 02/19/19 16:00 Mechanical Ventilator 02/19/19 16:00 97.9 73 16 131/69 (89) 99 02/19/19 14:55 78 16 97 Mechanical Ventilator 30 78 17 30 02/19/19 14:54 99 02/19/19 14:00 78 21 30 02/19/19 12:00 98.9 77 16 152/100 (117) 99 02/19/19 12:00 30 02/19/19 12:00 91 02/19/19 12:00 Mechanical Ventilator 02/19/19 10:48 80 16 98 Mechanical Ventilator 30 80 18 30 02/19/19 09:35 30 02/19/19 09:33 76 22 30 30 02/19/19 08:00 Mechanical Ventilator 02/19/19 08:00 82 02/19/19 08:00 99.0 86 18 158/93 (114) 98 02/19/19 08:00 30 Intake and Output 02/19/19 02/20/19 18:59 06:59 Intake Total 1401.666 ml 980.4 ml Output Total 1500 ml 1400 ml Balance -98.334 ml -419.6 ml Intake Free Water 100 ml IV Total 761.666 ml 440.4 ml Tube Feeding 540 ml 540 ml Output Urine Total 1500 ml 1400 ml # Bowel Movements 2 Laboratory Tests 02/20/19 03:40: White Blood Count 6.8, Red Blood Count 2.74L, Hemoglobin 8.2L, Hematocrit 26.5L , Mean Corpuscular Volume 97, Mean Corpuscular Hemoglobin 29.7, Mean Corpuscular Hemoglobin Concent 30.8L, Red Cell Distribution Width 14.8, Platelet Count 140L, Mean Platelet Volume 6.0L, Neutrophils (%) (Auto) 76.2H, Lymphocytes (%) (Auto) 9.2L, Monocytes (%) (Auto) 10.3H, Eosinophils (%) (Auto) 3.6H, Basophils (%) (Auto) 0.6, Sodium Level 144, Potassium Level 4.2, Chloride Level 105, Carbon Dioxide Level 39H, Anion Gap 0L, Blood Urea Nitrogen 16, Creatinine 0.8, Estimat Glomerular Filtration Rate , Glucose Level 96, Calcium Level 8.3L, Phosphorus Level 2.0L, Magnesium Level 2.3, Total Bilirubin 0.5, Aspartate Amino Transf (AST/SGOT) 20, Alanine Aminotransferase (ALT/SGPT) 36, Alkaline Phosphatase 82, Total Protein 5.4L, Albumin 2.3L, Globulin 3.1, Albumin /Globulin Ratio 0.7L, Random Vancomycin Level 15.0 Height (Feet): 5 Height (Inches): 10.00 Weight (Pounds): 164 General Appearance: no apparent distress EENT: normal ENT inspection Neck: supple Cardiovascular: normal rate Respiratory/Chest: decreased breath sounds Abdomen: normal bowel sounds, non tender, soft Extremities: non-tender Jaylen Aleman MD Feb 20, 2019 07:41
--- NOTE | 2019-02-20 07:44 | NUR ---
HAND-OFF: Report given to GENNY Paul. patient is in stable condition.
--- NOTE | 2019-02-20 07:45 | NUR ---
NURSE NOTES: Received patient from GENNY Mac. Patient restless at this time with eyes closed. Patient witnessed attempting to get out of bed, pulling his clothes off, pulling on his PICC line, pulling on his gastrostomy tube, and he had disconnected the ventilator tubing from his tracheostomy. In order to maintain the patient's safety, soft wrist restraints were applied on bilateral wrists at 0720. Patient was then straightened in bed. Patient's eyes remained closed. Will administer anti-anxiety and pain medication as ordered to calm the patient and alleviate any pain. Patient is now in semi-fowlers positioned and turned to his right side as he seems to prefer lying on his side. Patient has a Shiley 8 tracheostomy with ventilator setting of AC 16, tidal volume 500, FiO2 30%, and PEEP 5. Patient lasted less than three hours on weaning yesterday. Will follow up with respiratory therapist for weaning this morning. Patient is on low air loss mattress for skin protection. Patient has some old skin tears on his lower leg that are healing. Bilateral upper extremities edematous, pitting +3 with the right upper extremity weeping. Patient has some perineal excoriation that is resolving at this time. Patient has phosphorous. Patient has a left upper arm PICC line that is patent, asymptomatic, and saline locked at this time. Patient has a low phosphorous of 2.[address] Salmon has ordered 15mmol sodium phosphate to be given this morning. Will administer medication as ordered. Eliquis was held yesterday for bleeding in the urine. No blood noted this morning. Patient bed in low position with bed alarm on and call light in reach at this time. Will continue to monitor patient.
[2019-02-20] MEDS ORDERED: Vancomycin 1.25gm/NS Premix IVPB ONE (08:00)
[2019-02-20] MEDS: Acetaminophen 650mg/20.3ml NG PRN ×2 (08:50→14:32)
[2019-02-20] MEDS: Solu-MEDROL 40mg Inj IVP SCH (08:50)
[2019-02-20] MEDS: Pantoprazole Inj IVP SCH ×2 (08:51→20:25)
[2019-02-20] MEDS: Eliquis 5mg tablet ORAL SCH (08:51)
--- NOTE | 2019-02-20 08:56 | Pulmonolgy Critical Care Note ---
Critical Care - Asmt/Plan Assessment/Plan: Pulmonary Critical Care Progress Note HPI Patient is a 73 year olf man with previous history of COPD, CHF, HTN, DM admitted with extreme respiratory distress, intubated in the ED, subsequent Cardiac Arrest. Noted to have hypercapneic respiratory failure. s/p Tracheostomy tolerated well, s/p GT, tolerating CPAP intemittently - PS 6 today, did not tolerate TC previously RIJ thrombus - on AC Allergies: No Known Allergies Past Medical History: COPD/Asthma, CHF, Hypertension, DM All Other Systems: limited Physical Exam Vital signs noted General Appearance: sedated Head: normocephalic, atraumatic Eyes: bilateral eye PERRL, bilateral eye EOMI ENT: moist mm, no LN Neck: supple Respiratory: generally reduced BS Cardiovascular: tachycardia, HS1, HS2, RRR Gastrointestinal: non tender, soft Musculoskeletal: normal inspection Neurologic: sedated, no focal signs Skin: no rash, palpation normal Impression: COPD exacerbation Hypercapneic respiratory failure - s/p Tracheostomy S/p cardiac arrest in the ED CHF HTN Diabetes Plan ACVC - wean as tolerated Adjust FIO2 for sats 90-94% HHN Q4 IV Solumedrol - reduce as tolerated Sedation PRN Sz management Monitor labs PPX Antibiotics per ID DNR status OK for SDU Labs noted Chest X-Ray: No consolidation, no effusion Critical Care - Objective Last 24 Hour Vital Signs Date Time Temp Pulse Resp B/P (MAP) Pulse Ox O2 Delivery O2 Flow Rate FiO2 02/20/19 07:25 82 17 100 Mechanical Ventilator 30 82 16 30 02/20/19 05:06 81 18 30 02/20/19 04:00 Mechanical Ventilator 02/20/19 04:00 73 02/20/19 04:00 98.2 73 17 138/84 (102) 100 02/20/19 04:00 30 02/20/19 03:14 82 17 98 Mechanical Ventilator 30 82 17 30 02/20/19 01:10 67 16 30 02/20/19 00:00 Mechanical Ventilator 02/20/19 00:00 98.4 73 17 128/64 (85) 100 02/20/19 00:00 30 02/20/19 00:00 67 02/19/19 23:15 68 17 99 Mechanical Ventilator 30 68 17 30 02/19/19 21:00 80 18 30 02/19/19 20:00 69 9/3/19 20:00 Mechanical Ventilator 02/19/19 20:00 30 02/19/19 20:00 98.2 65 16 142/60 (87) 97 02/19/19 19:30 79 16 100 Mechanical Ventilator 30 78 16 30 02/19/19 17:14 69 16 30 02/19/19 16:00 30 02/19/19 16:00 91 02/19/19 16:00 Mechanical Ventilator 02/19/19 16:00 97.9 73 16 131/69 (89) 99 02/19/19 14:55 78 16 97 Mechanical Ventilator 30 78 17 30 02/19/19 14:54 99 02/19/19 14:00 78 21 30 02/19/19 12:00 98.9 77 16 152/100 (117) 99 02/19/19 12:00 30 02/19/19 12:00 91 02/19/19 12:00 Mechanical Ventilator 02/19/19 10:48 80 16 98 Mechanical Ventilator 30 80 18 30 02/19/19 09:35 30 02/19/19 09:33 76 22 30 30 Accucheck: 101 Critical Care - Subjective ROS Limited/Unobtainable: No FI02: 30 Vent Support Breath Rate: 16 Vent Support Mode: AC Vent Tidal Volume: 500 Sputum Amount: Small PEEP: 5.0 PIP: 24 Tube Feeding Amount: 45 I&O: Intake and Output 02/19/19 02/20/19 18:59 06:59 Intake Total 1401.666 ml 980.4 ml Output Total 1500 ml 1400 ml Balance -98.334 ml -419.6 ml Intake Free Water 100 ml IV Total 761.666 ml 440.4 ml Tube Feeding 540 ml 540 ml Output Urine Total 1500 ml 1400 ml # Bowel Movements 2 ET-Tube: 7.5 ET Position: 24 Johny White MD Feb 20, 2019 08:56
--- NOTE | 2019-02-20 09:25 | NUR ---
RESPIRATORY NOTE: Pt unable to wean. Per RN Beverly pt is restless. Pt remains eyes closed. Opens eyes when called but closes eyes again. Pt does not follow commands at this time. Will try again later.
--- NOTE | 2019-02-20 09:31 | NUR ---
CASE MANAGEMENT: REVIEW 02/20/2019 SI:COPD EXACERBATION. ASPIRATION PNA. T 98.2 HR 82 RR 17 B/P 134/84 SATS 100% ON MECH VENT FIO2 30 CO2 39 CA 8.3 PHOS 2 IS:SOLU MEDROL IV QD ELIQUIS PO BID PROTONIX IV Q12H SDU
[2019-02-20] MEDS ORDERED: Sodium Phosphate 15 MM in NS 275 ML IVPB ONE (10:00)
--- NOTE | 2019-02-20 10:22 | NUR ---
NURSE NOTES: Patient moved closer to nurses station. Restraints removed. Patient calm and cooperative at this time. Patient no longer trying to pull at anything. Patient no longer trying to get out of bed. Patient lying on his right with arms resting at his sides. patient has not been given medication for anxiety/sedation since early this morning (prior to shift change), but patient still appears lethargic. He opens his eyes to voice but does not keep them open for more than a few seconds. Will continue to monitor.
--- NOTE | 2019-02-20 11:20 | NUR ---
RESPIRATORY NOTE: Pt is still unable to wean. Will try again tomorrow. Dr Henry and Beverly ROYAL aware.
--- NOTE | 2019-02-20 12:00 | NUR ---
NURSE NOTES: Patient restless at this time with eyes closed. VS stable. Patient keeps pulling at his clothes and disconnecting ventilator tubing from trach. Patient moved to room close to nurses station. Will continue to monitor and reorient the patient as needed. Will keep patient off of restraints at this time. Patient straightened in bed. Patient's eyes remained closed but opens eyes to name. Patient now in semi-fowlers positioned. Ventilator setting remain AC 16, tidal volume 500, FiO2 30%, and PEEP 5. Patient failed weaning trial. Patient remains on low air loss mattress for skin protection. right upper extremity remains edematous, pitting +3 and weeping. No bleeding noted. Patient bed in low position with bed alarm on and call light in reach at this time. Will continue to monitor patient.
--- NOTE | 2019-02-20 12:24 | General Progress Note ---
Assessment/Plan Status: stable, unchanged Assessment/Plan: s: Post extubation on Trach and Vent O: Awake , following the command, seen in [facility], Saenz in place PHYSICAL EXAMINATION: GENERAL: An elderly male, lying in bed, not in acute distress. HEENT: Normocephalic and atraumatic. Pupils slightly responsive to light. Unable to assess oral mucosa NECK: Trach in place , Supple. No lymphadenopathy.CARDIOVASCULAR: He is tachycardic. S1, S2 normal. No murmur can be heard. LUNGS: Diminished breathing sounds at the bases. No wheezing or rhonchi. Normal breathing effort. ABDOMEN: PEG in place, Soft, nontender, and nondistended. Normal bowel sounds. No hepatosplenomegaly or ascites. No organomegaly.EXTREMITIES: No edema or cyanosis. labs: dated Feb 19 reviewed Meds: reviewed and reconciled , including Vanco and Meropenem ASSESSMENT AND PLAN: 1. Trach dependent respiratory failure. post extubation , On vent assisted Trach setting 2. Sepsis- Gram negative HCA PNA. Stable 3. Chronic obstructive pulmonary disease, end-stage, oxygen-dependent. 4. Cardiopulmonary arrest, status post resuscitation x2. 4. Hypertension. 5. Abnormal blood sugar. 6. Anemia. 7. Abn Trop: likely secondary to #4 7. GI and DVT prophylaxis. 8. Dysphegia PLAN OF CARE: Notes from pulmonary and Cardiology reviewed Restarted on anticoagulation , with preserved hgb levels S/P PEG and trach placement Currently on weaning program per Pulmonary Subjective Allergies: Coded Allergies: No Known Allergies (Unverified , 06/05/18) Objective Last 24 Hour Vital Signs Date Time Temp Pulse Resp B/P (MAP) Pulse Ox O2 Delivery O2 Flow Rate FiO2 02/20/19 11:20 70 16 100 Mechanical Ventilator 30 70 16 30 02/20/19 09:25 82 18 30 02/20/19 08:00 30 02/20/19 08:00 Mechanical Ventilator 02/20/19 08:00 90 02/20/19 08:00 98.3 78 18 150/79 (102) 100 02/20/19 07:25 82 17 100 Mechanical Ventilator 30 82 16 30 02/20/19 05:06 81 18 30 02/20/19 04:00 Mechanical Ventilator 02/20/19 04:00 73 02/20/19 04:00 98.2 73 17 138/84 (102) 100 02/20/19 04:00 30 02/20/19 03:14 82 17 98 Mechanical Ventilator 30 82 17 30 02/20/19 01:10 67 16 30 02/20/19 00:00 Mechanical Ventilator 02/20/19 00:00 98.4 73 17 128/64 (85) 100 02/20/19 00:00 30 02/20/19 00:00 67 02/19/19 23:15 68 17 99 Mechanical Ventilator 30 68 17 30 02/19/19 21:00 80 18 30 02/19/19 20:00 69 02/19/19 20:00 Mechanical Ventilator 02/19/19 20:00 30 02/19/19 20:00 98.2 65 16 142/60 (87) 97 02/19/19 19:30 79 16 100 Mechanical Ventilator 30 78 16 30 02/19/19 17:14 69 16 30 02/19/19 16:00 30 02/19/19 16:00 91 02/19/19 16:00 Mechanical Ventilator 02/19/19 16:00 97.9 73 16 131/69 (89) 99 02/19/19 14:55 78 16 97 Mechanical Ventilator 30 78 17 30 02/19/19 14:54 99 02/19/19 14:00 78 21 30 Intake and Output 02/19/19 02/20/19 19:00 07:00 Intake Total 1401.666 ml 1090.4 ml Output Total 1500 ml 1400 ml Balance -98.334 ml -309.6 ml Intake Free Water 100 ml IV Total 761.666 ml 550.4 ml Tube Feeding 540 ml 540 ml Output Urine Total 1500 ml 1400 ml # Bowel Movements 2 Laboratory Tests 02/20/19 03:40: White Blood Count 6.8, Red Blood Count 2.74L, Hemoglobin 8.2L, Hematocrit 26.5L , Mean Corpuscular Volume 97, Mean Corpuscular Hemoglobin 29.7, Mean Corpuscular Hemoglobin Concent 30.8L, Red Cell Distribution Width 14.8, Platelet Count 140L, Mean Platelet Volume 6.0L, Neutrophils (%) (Auto) 76.2H, Lymphocytes (%) (Auto) 9.2L, Monocytes (%) (Auto) 10.3H, Eosinophils (%) (Auto) 3.6H, Basophils (%) (Auto) 0.6, Sodium Level 144, Potassium Level 4.2, Chloride Level 105, Carbon Dioxide Level 39H, Anion Gap 0L, Blood Urea Nitrogen 16, Creatinine 0.8, Estimat Glomerular Filtration Rate , Glucose Level 96, Calcium Level 8.3L, Phosphorus Level 2.0L, Magnesium Level 2.3, Total Bilirubin 0.5, Aspartate Amino Transf (AST/SGOT) 20, Alanine Aminotransferase (ALT/SGPT) 36, Alkaline Phosphatase 82, Total Protein 5.4L, Albumin 2.3L, Globulin 3.1, Albumin /Globulin Ratio 0.7L, Random Vancomycin Level 15.0 Height (Feet): 5 Height (Inches): 10.00 Weight (Pounds): 164 Brianne Henry MD Feb 20, 2019 12:24
--- NOTE | 2019-02-20 14:00 | NUR ---
NURSE NOTES: Patient placed back on restraints for patient safety. Patient witnessed disconnecting trach from ventilator. Patient reminded multiple times to not disconnect the trach from the ventilator. Patient nods in understanding but then attempts to disconnect the trach from the ventilator less than 5 minutes later. After attempting all other interventions including therapeutic communication, frequent reorientation, low light environment, and anti-anxiety medication administration per order, restraints reapplied. All other interventions failed to keep the patient from disconnecting his trach from the ventilator.
--- NOTE | 2019-02-20 14:00 | Infectious Diseases Prog Note ---
Assessment/Plan Problems: (1) Aspiration pneumonia Assessment & Plan: due to pseudomonas aeruginosa , continue meropenem with higher dose for two weeks , aspiration precaution . EOT 02/21/19 (2) Leukocytosis Assessment & Plan: PARTIALLY DUE TO STEROIDS , with no evidence of sepsis, or bacteremia . repeated blood culture x2 is negative , continue meropenem and vancomycin empirically to cover for pneumonia and possible sepsis . IJ line was removed. taper steroids (3) Acute exacerbation of chronic obstructive pulmonary disease (COPD) Assessment & Plan: S/P doxycycline , on steroids and nebulizer treatment as per pulmonary (4) Cardiac arrest Assessment & Plan: etiology ? cardiology eval to rule out cardiac sources and neurology eval to evaluate his brain condition and to rule out anoxic brain injury (5) Chronic hypercapnic respiratory failure Assessment & Plan: S/P cardiac arrest , S/P tracheostomy after failing multiple weaning trials , pulmonary is following Subjective ROS Limited/Unobtainable: Yes Allergies: Coded Allergies: No Known Allergies (Unverified , 06/05/18) Subjective He was still on ventilator since didn't tolerate neck collar , S/P tracheostomy on 02/12 , unresponsive to verbal commands, no fever or chills no diarrhea, no significant secretions from his trach Objective Vital Signs Last 24 Hour Vital Signs Date Time Temp Pulse Resp B/P (MAP) Pulse Ox O2 Delivery O2 Flow Rate FiO2 02/20/19 13:08 75 16 30 02/20/19 12:00 Mechanical Ventilator 02/20/19 12:00 98.9 81 18 146/70 (95) 100 02/20/19 12:00 30 02/20/19 12:00 85 02/20/19 11:20 70 16 100 Mechanical Ventilator 30 70 16 30 02/20/19 09:25 82 18 30 02/20/19 08:00 30 02/20/19 08:00 Mechanical Ventilator 02/20/19 08:00 90 02/20/19 08:00 98.3 78 18 150/79 (102) 100 02/20/19 07:25 82 17 100 Mechanical Ventilator 30 82 16 30 02/20/19 05:06 81 18 30 02/20/19 04:00 Mechanical Ventilator 02/20/19 04:00 73 02/20/19 04:00 98.2 73 17 138/84 (102) 100 02/20/19 04:00 30 02/20/19 03:14 82 17 98 Mechanical Ventilator 30 82 17 30 02/20/19 01:10 67 16 30 02/20/19 00:00 Mechanical Ventilator 02/20/19 00:00 98.4 73 17 128/64 (85) 100 02/20/19 00:00 30 02/20/19 00:00 67 02/19/19 23:15 68 17 99 Mechanical Ventilator 30 68 17 30 02/19/19 21:00 80 18 30 02/19/19 20:00 69 02/19/19 20:00 Mechanical Ventilator 02/19/19 20:00 30 02/19/19 20:00 98.2 65 16 142/60 (87) 97 02/19/19 19:30 79 16 100 Mechanical Ventilator 30 78 16 30 02/19/19 17:14 69 16 30 02/19/19 16:00 30 02/19/19 16:00 91 02/19/19 16:00 Mechanical Ventilator 02/19/19 16:00 97.9 73 16 131/69 (89) 99 02/19/19 14:55 78 16 97 Mechanical Ventilator 30 78 17 30 02/19/19 14:54 99 02/19/19 14:00 78 21 30 Height (Feet): 5 Height (Inches): 10.00 Weight (Pounds): 164 General Appearance: WD/WN, no acute distress HEENT: normocephalic, atraumatic, anicteric, mucous membranes moist, PERRL Respiratory/Chest: chest wall non-tender, no respiratory distress, no accessory muscle use, decreased breath sounds, crackles/rales Cardiovascular: normal peripheral pulses, normal rate, regular rhythm, no gallop/murmur, no JVD Abdomen: normal bowel sounds, soft, non tender, no organomegaly, non distended , no mass, no scars Extremities: no cyanosis, no clubbing Skin: no rash, no lesions Neurologic/Psychiatric: leadership program associate II-XII grossly normal, alert, responsive Lymphatic: no neck adenopathy, no groin adenopathy Musculoskeletal: normal muscle bulk, no effusion Laboratory Tests Test 02/20/19 03:40 White Blood Count 6.8 K/UL (4.8-10.8) Red Blood Count 2.74 M/UL (4.70-6.10) L Hemoglobin 8.2 G/DL (14.2-18.0) L Hematocrit 26.5 % (42.0-52.0) L Mean Corpuscular Volume 97 FL (80-99) Mean Corpuscular Hemoglobin 29.7 PG (27.0-31.0) Mean Corpuscular Hemoglobin Concent 30.8 G/DL (32.0-36.0) L Red Cell Distribution Width 14.8 % (11.6-14.8) Platelet Count 140 K/UL (150-450) L Mean Platelet Volume 6.0 FL (6.5-10.1) L Neutrophils (%) (Auto) 76.2 % (45.0-75.0) H Lymphocytes (%) (Auto) 9.2 % (20.0-45.0) L Monocytes (%) (Auto) 10.3 % (1.0-10.0) H Eosinophils (%) (Auto) 3.6 % (0.0-3.0) H Basophils (%) (Auto) 0.6 % (0.0-2.0) Sodium Level 144 MMOL/L (136-145) Potassium Level 4.2 MMOL/L (3.5-5.1) Chloride Level 105 MMOL/L (98-107) Carbon Dioxide Level 39 MMOL/L (21-32) H Anion Gap 0 mmol/L (5-15) L Blood Urea Nitrogen 16 mg/dL (7-18) Creatinine 0.8 MG/DL (0.55-1.30) Estimat Glomerular Filtration Rate mL/min (>60) Glucose Level 96 MG/DL (74-106) Calcium Level 8.3 MG/DL (8.5-10.1) L Phosphorus Level 2.0 MG/DL (2.5-4.9) L Magnesium Level 2.3 MG/DL (1.8-2.4) Total Bilirubin 0.5 MG/DL (0.2-1.0) Aspartate Amino Transf (AST/SGOT) 20 U/L (15-37) Alanine Aminotransferase (ALT/SGPT) 36 U/L (12-78) Alkaline Phosphatase 82 U/L (46-116) Total Protein 5.4 G/DL (6.4-8.2) L Albumin 2.3 G/DL (3.4-5.0) L Globulin 3.1 g/dL Albumin/Globulin Ratio 0.7 (1.0-2.7) L Random Vancomycin Level 15.0 ug/mL Current Medications Medications (Trade) Dose Ordered Sig/Brittani Route PRN Reason Start Time Stop Time Status Last Admin Dose Admin Acetaminophen (Tylenol) 650 mg Q4H PRN NG FOR MILD PAIN 02/18/19 06:15 02/25/19 10:14 02/20/19 08:50 Acetylcysteine (Mucomyst) 100 mg Q4HRT [facility] 02/18/19 03:00 03/14/19 14:59 02/20/19 11:20 Albuterol/ Ipratropium (Albuterol/ Ipratropium) 3 ml Q4HRT [facility] 02/18/19 03:00 02/22/19 20:00 02/20/19 11:20 Apixaban (Eliquis) 5 mg BID ORAL 02/19/19 09:00 03/19/19 17:59 02/20/19 08:51 Chlorhexidine Gluconate (Renetta-Hex 2%) 1 applic DAILY@2000 TOPIC 02/18/19 20:00 03/09/19 19:59 02/19/19 20:25 Dextrose (Dextrose 50%) 25 ml Q30M PRN IV Hypoglycemia 02/18/19 03:00 02/25/19 10:29 Dextrose (Dextrose 50%) 50 ml Q30M PRN IV Hypoglycemia 02/18/19 03:00 02/25/19 10:29 Haloperidol Lactate 0.5 mg/ Dextrose 55.1 ml @ 220.4 mls/ hr Q8H PRN IVPB Agitation 02/18/19 06:15 03/12/19 14:14 02/19/19 23:09 Hydralazine HCl (Apresoline) 25 mg Q6H PRN NG For High Blood Pressure 02/18/19 05:15 03/06/19 16:59 Insulin Aspart (NovoLOG) Q6HR SUBQ 02/18/19 06:00 03/13/19 12:59 02/20/19 12:35 Lorazepam (Ativan 2mg/ml 1ml) 0.5 mg Q2H PRN IV ANXIETY 02/18/19 04:30 02/22/19 20:00 02/20/19 12:06 Meropenem 2 gm/ Sodium Chloride 110 ml @ 220 mls/hr Q8HR IVPB 02/18/19 06:00 02/21/19 23:59 02/20/19 05:54 Methylprednisolone Sodium Succinate (Solu-MEDROL) 10 mg DAILY IVP 02/20/19 09:00 03/22/19 08:59 02/20/19 08:50 Pantoprazole (Protonix) 40 mg Q12HR IVP 02/18/19 09:00 02/25/19 10:59 02/20/19 08:51 Polyethylene Glycol (Miralax) 17 gm BEDTIME NG 02/18/19 21:00 03/03/19 20:59 Sodium Phosphate 15 mm/Sodium Chloride 280 ml @ 70.273 mls/ hr ONCE ONCE IVPB 02/20/19 10:00 02/20/19 13:59 02/20/19 09:49 Vancomycin HCl (Vanco rx to dose) 1 ea DAILY PRN MISC Per rx protocol 02/18/19 09:00 03/08/19 19:59 [place] Orlando M.D. Feb 20, 2019 14:00
--- NOTE | 2019-02-20 14:15 | Surgery Progress Note ---
Surgery Progress Note Subjective Procedure Performed tracheostomy bronchoscopy Additional Comments no acute events comfortable stable labs noted exam unchanged. Objective Last 24 Hour Vital Signs Date Time Temp Pulse Resp B/P (MAP) Pulse Ox O2 Delivery O2 Flow Rate FiO2 02/20/19 13:08 75 16 30 02/20/19 12:00 Mechanical Ventilator 02/20/19 12:00 98.9 81 18 146/70 (95) 100 02/20/19 12:00 30 02/20/19 12:00 85 02/20/19 11:20 70 16 100 Mechanical Ventilator 30 70 16 30 02/20/19 09:25 82 18 30 02/20/19 08:00 30 02/20/19 08:00 Mechanical Ventilator 02/20/19 08:00 90 02/20/19 08:00 98.3 78 18 150/79 (102) 100 02/20/19 07:25 82 17 100 Mechanical Ventilator 30 82 16 30 02/20/19 05:06 81 18 30 02/20/19 04:00 Mechanical Ventilator 02/20/19 04:00 73 02/20/19 04:00 98.2 73 17 138/84 (102) 100 02/20/19 04:00 30 02/20/19 03:14 82 17 98 Mechanical Ventilator 30 82 17 30 02/20/19 01:10 67 16 30 02/20/19 00:00 Mechanical Ventilator 02/20/19 00:00 98.4 73 17 128/64 (85) 100 02/20/19 00:00 30 02/20/19 00:00 67 02/19/19 23:15 68 17 99 Mechanical Ventilator 30 68 17 30 02/19/19 21:00 80 18 30 02/19/19 20:00 69 02/19/19 20:00 Mechanical Ventilator 02/19/19 20:00 30 02/19/19 20:00 98.2 65 16 142/60 (87) 97 02/19/19 19:30 79 16 100 Mechanical Ventilator 30 78 16 30 02/19/19 17:14 69 16 30 02/19/19 16:00 30 02/19/19 16:00 91 02/19/19 16:00 Mechanical Ventilator 02/19/19 16:00 97.9 73 16 131/69 (89) 99 02/19/19 14:55 78 16 97 Mechanical Ventilator 30 78 17 30 02/19/19 14:54 99 I&O Intake and Output 02/19/19 02/20/19 19:00 07:00 Intake Total 1401.666 ml 1090.4 ml Output Total 1500 ml 1400 ml Balance -98.334 ml -309.6 ml Intake Free Water 100 ml IV Total 761.666 ml 550.4 ml Tube Feeding 540 ml 540 ml Output Urine Total 1500 ml 1400 ml # Bowel Movements 2 Dressing: dry Cardiovascular: RSR Respiratory: clear Abdomen: soft, non-distended Extremities: no tenderness, no cyanosis Laboratory Tests Test 02/20/19 03:40 White Blood Count 6.8 K/UL (4.8-10.8) Red Blood Count 2.74 M/UL (4.70-6.10) L Hemoglobin 8.2 G/DL (14.2-18.0) L Hematocrit 26.5 % (42.0-52.0) L Mean Corpuscular Volume 97 FL (80-99) Mean Corpuscular Hemoglobin 29.7 PG (27.0-31.0) Mean Corpuscular Hemoglobin Concent 30.8 G/DL (32.0-36.0) L Red Cell Distribution Width 14.8 % (11.6-14.8) Platelet Count 140 K/UL (150-450) L Mean Platelet Volume 6.0 FL (6.5-10.1) L Neutrophils (%) (Auto) 76.2 % (45.0-75.0) H Lymphocytes (%) (Auto) 9.2 % (20.0-45.0) L Monocytes (%) (Auto) 10.3 % (1.0-10.0) H Eosinophils (%) (Auto) 3.6 % (0.0-3.0) H Basophils (%) (Auto) 0.6 % (0.0-2.0) Sodium Level 144 MMOL/L (136-145) Potassium Level 4.2 MMOL/L (3.5-5.1) Chloride Level 105 MMOL/L (98-107) Carbon Dioxide Level 39 MMOL/L (21-32) H Anion Gap 0 mmol/L (5-15) L Blood Urea Nitrogen 16 mg/dL (7-18) Creatinine 0.8 MG/DL (0.55-1.30) Estimat Glomerular Filtration Rate mL/min (>60) Glucose Level 96 MG/DL (74-106) Calcium Level 8.3 MG/DL (8.5-10.1) L Phosphorus Level 2.0 MG/DL (2.5-4.9) L Magnesium Level 2.3 MG/DL (1.8-2.4) Total Bilirubin 0.5 MG/DL (0.2-1.0) Aspartate Amino Transf (AST/SGOT) 20 U/L (15-37) Alanine Aminotransferase (ALT/SGPT) 36 U/L (12-78) Alkaline Phosphatase 82 U/L (46-116) Total Protein 5.4 G/DL (6.4-8.2) L Albumin 2.3 G/DL (3.4-5.0) L Globulin 3.1 g/dL Albumin/Globulin Ratio 0.7 (1.0-2.7) L Random Vancomycin Level 15.0 ug/mL Plan Problems: (1) Respiratory distress Assessment & Plan: 73-year-old male with acute respiratory decompensation requiring intubation and intensive care unit evaluation was on vent support. Patient was recently extubated but unfortunately is not tolerating expiration very well as he requires BiPAP persistently and if taken off desaturates. Given these findings tracheostomy is potentially indicated and agree with pulmonology team and medical team that patient may benefit from tracheostomy to allow for recovery. Will obtain consent from the patient's family and patient for tracheostomy placement in hopes to have patient able to be weaned rather than reintubated. Thank you for allowing me to participate patient's care will continue with recommendations s/p trach s/p peg recovering wean vent as tolerated will follow thank you Kris Blake Feb 20, 2019 14:15
--- NOTE | 2019-02-20 16:00 | NUR ---
NURSE NOTES: Patient remains restless at this time with eyes closed. VS stable. Patient placed back on restraints. Patient moving around in the bed and kicking legs off of the bed. Patient pulling everything he can reach. Restraints prevent him from reaching for the trach. Will continue to monitor and reorient the patient as needed. Patient straightened in bed. Patient's eyes remained closed but opens eyes to name. Patient repositioned and oral care performed. Ventilator setting remain AC 16, tidal volume 500, FiO2 30%, and PEEP 5. Patient remains on low air loss mattress for skin protection. right upper extremity remains edematous, pitting +3 and weeping. No bleeding noted. Patient bed in low position with bed alarm on and call light in reach at this time. Will continue to monitor patient.
[2019-02-20] MEDS ORDERED: NS 275ml ONE (17:11)
[2019-02-20] MEDS ORDERED: Tubing IV Secondary IV ONE (17:11)
[2019-02-20] MEDS: Eliquis 5mg tablet NGT SCH (18:02)
--- NOTE | 2019-02-20 18:38 | Hematology/Onc Progress Note ---
Assessment/Plan Assessment/Plan # Thrombocytopenia is likely due to underlying infection/sepsis v dic, reactive process --> hiv is neg, hepatitis is neg as well --> us of the abd from prior 2018 --> plt rend 140-->115-->105-->133-->110k--> 118k-->100k-->95k-->109k-->96k--> 109k-->103k->148k-->140 --> okay for ppx as long as above 75k --> meds have been reviewed --> now off blood thinners # Anemia of chronic disease, due to multifactorial causes --> anemia panel reviewed from earlier in admission and c/w acd --> hgb goal is >7 --> no hemolysis is seen --> smear has been reviewed --> hgb trend 9.3-->11.1-->9.6--->9.9-->8.6-->8.5-->8.7-->8.8-->8.2 # Leukocytosis/elevated white blood cell count, unspecified likely related to steroid meds --> have reviewed peripheral smear and bandemia/neutrophilia noted --> continue antibiotics if they have been started by ID team, zosyn --> monitor for resolution --> wbc trend 14-->18-->24.3-->17.3-->17-->12.6-->11.4-->6.8 # Right jugular vein DVT acute --> h/h being monitored at this time --> rescan in 3 months --> eliquis NOW ON HOLD GIVEN HEMATURIA # COPD exacerbation with asp pna --> has been given steriods --> per id for aspiration prec on zosyn --> rochelle/vanc # Hypercapneic respiratory failure -->s/p trach/vent --> poor on weaning # S/p cardiac arrest in the ED # CHF # HTN # Diabetes # DNR status # Dysphagia with NG++ Time of note does not correspond to when patient was seen. Greatly appreciate consultation. Subjective Allergies: Coded Allergies: No Known Allergies (Unverified , 06/05/18) Subjective 02/01: no events to report, plt is lower, weaning trial initiated with mack gray rn, hiv neg 02/04: icu, wbc elevated, on abx 02/05: remains on vent, fighting vent, on abx remains on lovenox, on steriods 02/06: icu, on vent, vs stable, no sob or respiratory distress 02/07: remains in the icu, intubated, ng tube, weaning trial today 02/08: icu, restless and agitated, extubation pending, wbc improved 02/10: no vent, remains in icu, seen by pulshaka, extubated today, on bipap 02/11: extubated, on rochelle/vanc, labs have been reviewed 02/13: on glucerna, ngt, dopamine gtt 02/14: extubated, tracheostomy today, no fever or chills, no signs of distress, on abx 02/15: no fever, stable, egd with peg placement, no distress, discontinued eliquis, lovenox started 02/16: failed weaning, seen with mack gray rn, anticoag per surg 02/18: no events to report, no f/c, no bleeding, on eliquis on merop 02/19: reviewed meds, no changes, except did have hematuria in am, in go, have d/c xarelto 02/20: on restraints, no f/c, tracheostomy and bronchoscopy, on abx Objective Objective Current Medications Medications (Trade) Dose Ordered Sig/Brittani Route PRN Reason Start Time Stop Time Status Last Admin Dose Admin Acetaminophen (Tylenol) 650 mg Q4H PRN NG FOR MILD PAIN 02/18/19 06:15 02/25/19 10:14 02/20/19 14:32 Acetylcysteine (Mucomyst) 100 mg Q4HRT N 02/18/19 03:00 03/14/19 14:59 02/20/19 15:01 Albuterol/ Ipratropium (Albuterol/ Ipratropium) 3 ml Q4HRT N 02/18/19 03:00 02/22/19 20:00 02/20/19 15:01 Apixaban (Eliquis) 5 mg BID NGT 02/20/19 18:00 03/19/19 17:59 02/20/19 18:02 Chlorhexidine Gluconate (Renetta-Hex 2%) 1 applic DAILY@2000 TOPIC 02/18/19 20:00 03/09/19 19:59 02/19/19 20:25 Dextrose (Dextrose 50%) 25 ml Q30M PRN IV Hypoglycemia 02/18/19 03:00 02/25/19 10:29 Dextrose (Dextrose 50%) 50 ml Q30M PRN IV Hypoglycemia 02/18/19 03:00 02/25/19 10:29 Haloperidol Lactate 0.5 mg/ Dextrose 55.1 ml @ 220.4 mls/ hr Q8H PRN IVPB Agitation 02/18/19 06:15 03/12/19 14:14 02/19/19 23:09 Hydralazine HCl (Apresoline) 25 mg Q6H PRN NG For High Blood Pressure 02/18/19 05:15 03/06/19 16:59 Insulin Aspart (NovoLOG) Q6HR SUBQ 02/18/19 06:00 03/13/19 12:59 02/20/19 12:35 Lorazepam (Ativan 2mg/ml 1ml) 0.5 mg Q2H PRN IV ANXIETY 02/18/19 04:30 02/22/19 20:00 02/20/19 12:06 Meropenem 2 gm/ Sodium Chloride 110 ml @ 220 mls/hr Q8HR IVPB 02/18/19 06:00 02/21/19 23:59 02/20/19 14:33 Methylprednisolone Sodium Succinate (Solu-MEDROL) 10 mg DAILY IVP 02/20/19 09:00 03/22/19 08:59 02/20/19 08:50 Pantoprazole (Protonix) 40 mg Q12HR IVP 02/18/19 09:00 02/25/19 10:59 02/20/19 08:51 Polyethylene Glycol (Miralax) 17 gm BEDTIME NG 02/18/19 21:00 03/03/19 20:59 Vancomycin HCl (Vanco rx to dose) 1 ea DAILY PRN MISC Per rx protocol 02/18/19 09:00 03/08/19 19:59 Last 24 Hour Vital Signs Date Time Temp Pulse Resp B/P (MAP) Pulse Ox O2 Delivery O2 Flow Rate FiO2 02/20/19 16:49 79 17 30 02/20/19 16:00 67 02/20/19 16:00 30 02/20/19 15:01 73 16 100 Mechanical Ventilator 30 70 16 30 02/20/19 13:08 75 16 30 02/20/19 12:00 Mechanical Ventilator 02/20/19 12:00 98.9 81 18 146/70 (95) 100 02/20/19 12:00 30 02/20/19 12:00 85 02/20/19 11:20 70 16 100 Mechanical Ventilator 30 70 16 30 02/20/19 09:25 82 18 30 02/20/19 08:00 30 02/20/19 08:00 Mechanical Ventilator 02/20/19 08:00 90 02/20/19 08:00 98.3 78 18 150/79 (102) 100 02/20/19 07:25 82 17 100 Mechanical Ventilator 30 82 16 30 02/20/19 05:06 81 18 30 02/20/19 04:00 Mechanical Ventilator 02/20/19 04:00 73 02/20/19 04:00 98.2 73 17 138/84 (102) 100 02/20/19 04:00 30 02/20/19 03:14 82 17 98 Mechanical Ventilator 30 82 17 30 02/20/19 01:10 67 16 30 02/20/19 00:00 Mechanical Ventilator 02/20/19 00:00 98.4 73 17 128/64 (85) 100 02/20/19 00:00 30 02/20/19 00:00 67 02/19/19 23:15 68 17 99 Mechanical Ventilator 30 68 17 30 02/19/19 21:00 80 18 30 02/19/19 20:00 69 02/19/19 20:00 Mechanical Ventilator 02/19/19 20:00 30 02/19/19 20:00 98.2 65 16 142/60 (87) 97 02/19/19 19:30 79 16 100 Mechanical Ventilator 30 78 16 30 02/19/19 17:14 69 16 30 02/19/19 16:00 30 02/19/19 16:00 91 02/19/19 16:00 Mechanical Ventilator 02/19/19 16:00 97.9 73 16 131/69 (89) 99 02/19/19 14:55 78 16 97 Mechanical Ventilator 30 78 17 30 02/19/19 14:54 99 02/19/19 14:00 78 21 30 02/19/19 12:00 98.9 77 16 152/100 (117) 99 02/19/19 12:00 30 02/19/19 12:00 91 02/19/19 12:00 Mechanical Ventilator 02/19/19 10:48 80 16 98 Mechanical Ventilator 30 80 18 30 02/19/19 09:35 30 02/19/19 09:33 76 22 30 30 02/19/19 08:00 Mechanical Ventilator 02/19/19 08:00 82 02/19/19 08:00 99.0 86 18 158/93 (114) 98 02/19/19 08:00 30 02/19/19 06:54 79 17 98 Mechanical Ventilator 30 79 17 30 02/19/19 05:22 74 19 30 02/19/19 04:00 30 02/19/19 04:00 Mechanical Ventilator 02/19/19 04:00 75 02/19/19 04:00 97.7 84 18 153/83 (106) 99 02/19/19 03:30 86 16 100 Mechanical Ventilator 30 86 16 30 02/19/19 01:30 70 16 30 02/19/19 00:00 97.9 77 17 141/81 (101) 99 02/19/19 00:00 Mechanical Ventilator 02/19/19 00:00 75 02/19/19 00:00 30 02/18/19 23:30 75 16 97 Mechanical Ventilator 30 75 16 30 02/18/19 21:30 71 16 30 02/18/19 20:00 Mechanical Ventilator 02/18/19 20:00 86 02/18/19 20:00 97.7 77 16 139/81 (100) 99 02/18/19 20:00 30 02/18/19 19:30 72 16 96 Mechanical Ventilator 30 72 16 30 Intake and Output 02/19/19 02/20/19 19:00 07:00 Intake Total 1401.666 ml 1090.4 ml Output Total 1500 ml 1400 ml Balance -98.334 ml -309.6 ml Intake Free Water 100 ml IV Total 761.666 ml 550.4 ml Tube Feeding 540 ml 540 ml Output Urine Total 1500 ml 1400 ml # Bowel Movements 2 Labs Test 02/18/19 05:30 02/19/19 05:15 02/20/19 03:40 White Blood Count 7.7 K/UL (4.8-10.8) 8.2 K/UL (4.8-10.8) 6.8 K/UL (4.8-10.8) Red Blood Count 2.73 M/UL (4.70-6.10) 2.98 M/UL (4.70-6.10) 2.74 M/UL (4.70-6.10) Hemoglobin 8.2 G/DL (14.2-18.0) 8.8 G/DL (14.2-18.0) 8.2 G/DL (14.2-18.0) Hematocrit 26.1 % (42.0-52.0) 28.7 % (42.0-52.0) 26.5 % (42.0-52.0) Mean Corpuscular Volume 96 FL (80-99) 96 FL (80-99) 97 FL (80-99) Mean Corpuscular Hemoglobin 30.0 PG (27.0-31.0) 29.5 PG (27.0-31.0) 29.7 PG (27.0-31.0) Mean Corpuscular Hemoglobin Concent 31.4 G/DL (32.0-36.0) 30.6 G/DL (32.0-36.0) 30.8 G/DL (32.0-36.0) Red Cell Distribution Width 14.7 % (11.6-14.8) 15.0 % (11.6-14.8) 14.8 % (11.6-14.8) Platelet Count 123 K/UL (150-450) 148 K/UL (150-450) 140 K/UL (150-450) Mean Platelet Volume 7.1 FL (6.5-10.1) 6.7 FL (6.5-10.1) 6.0 FL (6.5-10.1) Neutrophils (%) (Auto) 80.1 % (45.0-75.0) 77.9 % (45.0-75.0) 76.2 % (45.0-75.0) Lymphocytes (%) (Auto) 8.4 % (20.0-45.0) 9.7 % (20.0-45.0) 9.2 % (20.0-45.0) Monocytes (%) (Auto) 8.2 % (1.0-10.0) 8.8 % (1.0-10.0) 10.3 % (1.0-10.0) Eosinophils (%) (Auto) 2.7 % (0.0-3.0) 2.9 % (0.0-3.0) 3.6 % (0.0-3.0) Basophils (%) (Auto) 0.6 % (0.0-2.0) 0.6 % (0.0-2.0) 0.6 % (0.0-2.0) Prothrombin Time 10.1 SEC (9.30-11.50) Prothromb Time International Ratio 0.9 (0.9-1.1) Activated Partial Thromboplast Time 28 SEC (23-33) Sodium Level 144 MMOL/L (136-145) 144 MMOL/L (136-145) 144 MMOL/L (136-145) Potassium Level 4.3 MMOL/L (3.5-5.1) 4.4 MMOL/L (3.5-5.1) 4.2 MMOL/L (3.5-5.1) Chloride Level 104 MMOL/L (98-107) 104 MMOL/L (98-107) 105 MMOL/L (98-107) Carbon Dioxide Level 39 MMOL/L (21-32) 39 MMOL/L (21-32) 39 MMOL/L (21-32) Anion Gap 1 mmol/L (5-15) 2 mmol/L (5-15) 0 mmol/L (5-15) Blood Urea Nitrogen 14 mg/dL (7-18) 15 mg/dL (7-18) 16 mg/dL (7-18) Creatinine 0.8 MG/DL (0.55-1.30) 0.8 MG/DL (0.55-1.30) 0.8 MG/DL (0.55-1.30) Estimat Glomerular Filtration Rate mL/min (>60) mL/min (>60) mL/min (>60) Glucose Level 98 MG/DL (74-106) 97 MG/DL (74-106) 96 MG/DL (74-106) Calcium Level 8.3 MG/DL (8.5-10.1) 8.6 MG/DL (8.5-10.1) 8.3 MG/DL (8.5-10.1) Total Bilirubin 0.5 MG/DL (0.2-1.0) 0.5 MG/DL (0.2-1.0) 0.5 MG/DL (0.2-1.0) Aspartate Amino Transf (AST/SGOT) 23 U/L (15-37) 22 U/L (15-37) 20 U/L (15-37) Alanine Aminotransferase (ALT/SGPT) 39 U/L (12-78) 39 U/L (12-78) 36 U/L (12-78) Alkaline Phosphatase 77 U/L (46-116) 89 U/L (46-116) 82 U/L (46-116) Total Protein 5.2 G/DL (6.4-8.2) 5.7 G/DL (6.4-8.2) 5.4 G/DL (6.4-8.2) Albumin 2.2 G/DL (3.4-5.0) 2.4 G/DL (3.4-5.0) 2.3 G/DL (3.4-5.0) Globulin 3.0 g/dL 3.3 g/dL 3.1 g/dL Albumin/Globulin Ratio 0.7 (1.0-2.7) 0.7 (1.0-2.7) 0.7 (1.0-2.7) Phosphorus Level 1.5 MG/DL (2.5-4.9) 2.0 MG/DL (2.5-4.9) Magnesium Level 2.3 MG/DL (1.8-2.4) 2.3 MG/DL (1.8-2.4) Random Vancomycin Level 12.4 ug/mL 15.0 ug/mL Height (Feet): 5 Height (Inches): 10.00 Weight (Pounds): 164 Objective General: no bleeding or chills Head: normocephalic, atraumatic Neck: supple ++ NG Respiratory: generally reduced bs, ++ trach Cardiovascular: tachycardia, HS1, HS2, RRR Gastrointestinal: non tender, soft Musculoskeletal: normal inspection Neurologic: sedated on ventilator Skin: no rash, palpation normal gu: Conrado Lundberg MD Feb 20, 2019 18:38
--- NOTE | 2019-02-20 19:20 | NUR ---
NURSE NOTES: pt report received from [facility]. pt remains stable. pt is alert and oriented times 1, unable to follow commands. 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 pt is on a trac to vent and is satting at 100 percent, no distress noted. pt restraint is in place and in tact, no abnormalities to L and R wrist, pulse, sensation, cap refill less than 3. bed low, locked, armed, call light within reach. will continue plan of care.
--- NOTE | 2019-02-20 19:25 | NUR ---
HAND-OFF: Report given to GENNY Cobb. Patient resting with no sign of acute distress. Endorsed to follow up.
--- NOTE | 2019-02-20 19:27 | Nephrology Progress Note ---
Assessment/Plan Problem List: (1) Cardiac arrest (2) Prerenal azotemia (3) Hypernatremia (4) Hypoalbuminemia (5) HTN (hypertension) Assessment Pre renal Azotemia due to - Dehydration- - High Protein catabolic state as result of Doxy and steroids HyperNatremia due to free water deficit HypoAlbuminemia Plan Sugg: stable from renal stand point had PEG 02/15 Tracheostomy 02/12 Phos supplement keep bp in check stop D5W IV fluid Avoid Nephrotoxics Monitor lytes per consultants Subjective ROS Limited/Unobtainable: No Interval Events/Complaints seen in am 02/20 - late note entery Constitutional: Reports: malaise, weakness Objective Objective Last 24 Hour Vital Signs Date Time Temp Pulse Resp B/P (MAP) Pulse Ox O2 Delivery O2 Flow Rate FiO2 02/20/19 19:01 84 18 99 Mechanical Ventilator 30 79 18 30 02/20/19 16:49 79 17 30 02/20/19 16:00 67 02/20/19 16:00 30 02/20/19 15:01 73 16 100 Mechanical Ventilator 30 70 16 30 02/20/19 13:08 75 16 30 02/20/19 12:00 Mechanical Ventilator 02/20/19 12:00 98.9 81 18 146/70 (95) 100 02/20/19 12:00 30 02/20/19 12:00 85 02/20/19 11:20 70 16 100 Mechanical Ventilator 30 70 16 30 02/20/19 09:25 82 18 30 02/20/19 08:00 30 02/20/19 08:00 Mechanical Ventilator 02/20/19 08:00 90 02/20/19 08:00 98.3 78 18 150/79 (102) 100 02/20/19 07:25 82 17 100 Mechanical Ventilator 30 82 16 30 02/20/19 05:06 81 18 30 02/20/19 04:00 Mechanical Ventilator 02/20/19 04:00 73 02/20/19 04:00 98.2 73 17 138/84 (102) 100 02/20/19 04:00 30 02/20/19 03:14 82 17 98 Mechanical Ventilator 30 82 17 30 02/20/19 01:10 67 16 30 02/20/19 00:00 Mechanical Ventilator 02/20/19 00:00 98.4 73 17 128/64 (85) 100 02/20/19 00:00 30 02/20/19 00:00 67 02/19/19 23:15 68 17 99 Mechanical Ventilator 30 68 17 30 02/19/19 21:00 80 18 30 02/19/19 20:00 69 02/19/19 20:00 Mechanical Ventilator 02/19/19 20:00 30 02/19/19 20:00 98.2 65 16 142/60 (87) 97 02/19/19 19:30 79 16 100 Mechanical Ventilator 30 78 16 30 Intake and Output 02/19/19 02/20/19 19:00 07:00 Intake Total 1401.666 ml 1090.4 ml Output Total 1500 ml 1400 ml Balance -98.334 ml -309.6 ml Intake Free Water 100 ml IV Total 761.666 ml 550.4 ml Tube Feeding 540 ml 540 ml Output Urine Total 1500 ml 1400 ml # Bowel Movements 2 Laboratory Tests 02/20/19 03:40: White Blood Count 6.8, Red Blood Count 2.74L, Hemoglobin 8.2L, Hematocrit 26.5L , Mean Corpuscular Volume 97, Mean Corpuscular Hemoglobin 29.7, Mean Corpuscular Hemoglobin Concent 30.8L, Red Cell Distribution Width 14.8, Platelet Count 140L, Mean Platelet Volume 6.0L, Neutrophils (%) (Auto) 76.2H, Lymphocytes (%) (Auto) 9.2L, Monocytes (%) (Auto) 10.3H, Eosinophils (%) (Auto) 3.6H, Basophils (%) (Auto) 0.6, Sodium Level 144, Potassium Level 4.2, Chloride Level 105, Carbon Dioxide Level 39H, Anion Gap 0L, Blood Urea Nitrogen 16, Creatinine 0.8, Estimat Glomerular Filtration Rate , Glucose Level 96, Calcium Level 8.3L, Phosphorus Level 2.0L, Magnesium Level 2.3, Total Bilirubin 0.5, Aspartate Amino Transf (AST/SGOT) 20, Alanine Aminotransferase (ALT/SGPT) 36, Alkaline Phosphatase 82, Total Protein 5.4L, Albumin 2.3L, Globulin 3.1, Albumin /Globulin Ratio 0.7L, Random Vancomycin Level 15.0 Height (Feet): 5 Height (Inches): 10.00 Weight (Pounds): 164 General Appearance: no apparent distress Neck: other - Trach Respiratory/Chest: decreased breath sounds Abdomen: other - PEG Objective no change Felipe Salmon MD Feb 20, 2019 19:27
[2019-02-20] MEDS: Dyna-Hex 2% Top Sol 2oz TOPIC SCH (20:25)
[2019-02-20] MEDS: Miralax 17gm pkt NG SCH (20:25)
[2019-02-21] VITALS: BP 138/79
[2019-02-21] MEDS: Albuterol/Ipratropium 3ml neb HHN SCH ×4 (02:32→15:08)
[2019-02-21 04:00] VITALS: BP 144/62
[2019-02-21] MEDS: NovoLOG Insulin Flexpen SUBQ SCH ×2 (05:09→11:22)
[2019-02-21] MEDS: Meropenem 2 GM in NS 110 ML IVPB SCH ×2 (05:09→14:28)
--- NOTE | 2019-02-21 07:14 | NUR ---
HAND-OFF: Report given to [facility] FERNANDO. Pt remains stable.
--- NOTE | 2019-02-21 07:23 | NUR ---
RESPIRATORY NOTE: Received pt on AC 16 VT 500 30% PEEP +5. Pt is trach dependent with a cuffed shiley 8. Breath sounds bilateral rhonchi, suctioned with thick, moderate, white/yellow secretions, no complication. Treatment tolerated well. No adverse reaction. Alarms are on and audible. Vent is plugged into red outlet. [place] and back up trach at bedside. No signs of distress. Will continue to monitor.
--- NOTE | 2019-02-21 07:26 | NUR ---
NURSE NOTES: Report received Reza RN. Pt sleepy, alert and oriented x 1-2, confused and forgetful at times. Pt SR on gambling monitor. Pt trache to vent shiley #8, AC 16, TV 500, 30% fiO2 and PEEP 5. Saenz noted and draining clear merced urine to gravity. Left arm PICC x 2 lumen noted and intact. Bilateral soft wrist restraints noted with no injury. Pt trying to climb out of bed and pull out lines. Safety measures in place with bed locked and in lowest position, side rails x 3 up and bed alarm on. Will continue to monitor and continue plan of care.
[2019-02-21 08:00] VITALS: BP 121/65
--- NOTE | 2019-02-21 08:40 | NUR ---
RESPIRATORY NOTE: Pt placed on CPAP PS 6. SaO2 99%, HR 91. No signs of respiratory distress. Will continue to monitor. GENNY Delgado aware.
[2019-02-21] MEDS: Pantoprazole Inj IVP SCH (08:54)
[2019-02-21] MEDS: Eliquis 5mg tablet NGT SCH (08:54)
[2019-02-21] MEDS: Solu-MEDROL 40mg Inj IVP SCH (08:54)
--- NOTE | 2019-02-21 09:20 | Hematology/Onc Progress Note ---
Assessment/Plan Assessment/Plan # Thrombocytopenia is likely due to underlying infection/sepsis v dic, reactive process --> hiv is neg, hepatitis is neg as well --> us of the abd from prior 2018 --> plt rend 140-->115-->105-->133-->110k--> 118k-->100k-->95k-->109k-->96k--> 109k-->103k->148k-->140k --> okay for ppx as long as above 75k --> meds have been reviewed # Anemia of chronic disease, due to multifactorial causes --> anemia panel reviewed from earlier in admission and c/w acd --> hgb goal is >7 --> no hemolysis is seen --> smear has been reviewed --> hgb trend 9.3-->11.1-->9.6--->9.9-->8.6-->8.5-->8.7-->8.8-->8.2 # Leukocytosis/elevated white blood cell count, unspecified likely related to steroid meds --> have reviewed peripheral smear and bandemia/neutrophilia noted --> abx ID team, zosyn--> vanc/rochelle --> monitor for resolution --> wbc trend 14-->18-->24.3-->17.3-->17-->12.6-->11.4-->6.8 # Right jugular vein DVT acute --> h/h being monitored at this time --> rescan in 3 months --> eliquis restarted (dw surg) # COPD exacerbation with asp pna --> has been given steriods --> abx as above # Hypercapneic respiratory failure -->s/p trach/vent --> poor on weaning (but continuing) # S/p cardiac arrest in the ED --> per cards recs # CHF # HTN # Diabetes # DNR status # Dysphagia with NG++ # Dvt ppx with eliquis Time of note does not correspond to when patient was seen. Greatly appreciate consultation. Subjective Constitutional: Denies: no symptoms, chills, fever, malaise, weakness, other HEENT: Denies: no symptoms, eye pain, blurred vision, tearing, double vision, ear pain, ear discharge, nose pain, nose congestion, throat pain, throat swelling, mouth pain, mouth swelling, other Cardiovascular: Denies: no symptoms, chest pain, edema, irregular heart rate, lightheadedness, palpitations, syncope, other Respiratory: Denies: no symptoms, cough, shortness of breath, SOB with excertion, SOB at rest, sputum, wheezing, other Gastrointestinal/Abdominal: Denies: no symptoms, abdomen distended, abdominal pain, black stools, tarry stools, blood in stool, constipated, diarrhea, difficulty swallowing, nausea, poor appetite, poor fluid intake, rectal bleeding , vomiting, other Genitourinary: Denies: no symptoms, burning, discharge, frequency, flank pain, hematuria, incontinence, pain, urgency, other Neurologic/Psychiatric: Denies: no symptoms, anxiety, depressed, emotional problems, headache, numbness, paresthesia, pre-existing deficit, seizure, tingling, tremors, weakness, other Endocrine: Denies: no symptoms, excessive sweating, flushing, intolerance to cold, intolerance to heat, increased hunger, increased thirst, increased urine, unexplained weight gain, unexplained weight loss, other Allergies: Coded Allergies: No Known Allergies (Unverified , 06/05/18) Subjective 02/01: no events to report, plt is lower, weaning trial initiated with mack gray rn, hiv neg 02/04: icu, wbc elevated, on abx 02/05: remains on vent, fighting vent, on abx remains on lovenox, on steriods 02/06: icu, on vent, vs stable, no sob or respiratory distress 02/07: remains in the icu, intubated, ng tube, weaning trial today 02/08: icu, restless and agitated, extubation pending, wbc improved 02/10: no vent, remains in icu, seen by pulshaka, extubated today, on bipap 02/11: extubated, on rochelle/vanc, labs have been reviewed 02/13: on glucerna, ngt, dopamine gtt 02/14: extubated, tracheostomy today, no fever or chills, no signs of distress, on abx 02/15: no fever, stable, egd with peg placement, no distress, discontinued eliquis, lovenox started 02/16: failed weaning, seen with mack gray rn, anticoag per surg 02/18: no events to report, no f/c, no bleeding, on eliquis on merop 02/19: reviewed meds, no changes, except did have hematuria in am, in go, have d/c xarelto 02/20: on restraints, no f/c, tracheostomy and bronchoscopy, on abx 02/21: remains ham/trach, with go, no bleeding or chills, on eliquis Objective Objective Current Medications Medications (Trade) Dose Ordered Sig/Brittani Route PRN Reason Start Time Stop Time Status Last Admin Dose Admin Acetaminophen (Tylenol) 650 mg Q4H PRN NG FOR MILD PAIN 02/18/19 06:15 02/25/19 10:14 02/20/19 14:32 Acetylcysteine (Mucomyst) 100 mg Q4HRT N 02/18/19 03:00 03/14/19 14:59 02/21/19 07:23 Albuterol/ Ipratropium (Albuterol/ Ipratropium) 3 ml Q4HRT N 02/18/19 03:00 02/22/19 20:00 02/21/19 07:23 Apixaban (Eliquis) 5 mg BID NGT 02/20/19 18:00 03/19/19 17:59 02/21/19 08:54 Chlorhexidine Gluconate (Renetta-Hex 2%) 1 applic DAILY@2000 TOPIC 02/18/19 20:00 03/09/19 19:59 02/20/19 20:25 Dextrose (Dextrose 50%) 25 ml Q30M PRN IV Hypoglycemia 02/18/19 03:00 02/25/19 10:29 Dextrose (Dextrose 50%) 50 ml Q30M PRN IV Hypoglycemia 02/18/19 03:00 02/25/19 10:29 Haloperidol Lactate 0.5 mg/ Dextrose 55.1 ml @ 220.4 mls/ hr Q8H PRN IVPB Agitation 02/18/19 06:15 03/12/19 14:14 02/19/19 23:09 Hydralazine HCl (Apresoline) 25 mg Q6H PRN NG For High Blood Pressure 02/18/19 05:15 03/06/19 16:59 Insulin Aspart (NovoLOG) Q6HR SUBQ 02/18/19 06:00 03/13/19 12:59 02/20/19 12:35 Lorazepam (Ativan 2mg/ml 1ml) 0.5 mg Q2H PRN IV ANXIETY 02/18/19 04:30 02/22/19 20:00 02/20/19 12:06 Meropenem 2 gm/ Sodium Chloride 110 ml @ 220 mls/hr Q8HR IVPB 02/18/19 06:00 02/21/19 23:59 02/21/19 05:09 Methylprednisolone Sodium Succinate (Solu-MEDROL) 10 mg DAILY IVP 02/20/19 09:00 03/22/19 08:59 02/21/19 08:54 Pantoprazole (Protonix) 40 mg Q12HR IVP 02/18/19 09:00 02/25/19 10:59 02/21/19 08:54 Polyethylene Glycol (Miralax) 17 gm BEDTIME NG 02/18/19 21:00 03/03/19 20:59 02/20/19 20:25 Vancomycin HCl (Vanco rx to dose) 1 ea DAILY PRN MISC Per rx protocol 02/18/19 09:00 03/08/19 19:59 Last 24 Hour Vital Signs Date Time Temp Pulse Resp B/P (MAP) Pulse Ox O2 Delivery O2 Flow Rate FiO2 02/21/19 09:16 99 02/21/19 08:40 91 19 30 02/21/19 08:00 98.4 85 20 121/65 (83) 99 02/21/19 08:00 30 02/21/19 08:00 Mechanical Ventilator 02/21/19 08:00 62 02/21/19 07:23 97 16 100 Mechanical Ventilator 30 97 16 30 02/21/19 04:43 74 16 30 02/21/19 04:00 30 02/21/19 04:00 Mechanical Ventilator 02/21/19 04:00 98.7 80 19 144/62 (89) 99 02/21/19 03:24 91 02/21/19 02:30 93 16 100 Mechanical Ventilator 30 91 16 30 02/21/19 00:40 86 17 30 02/21/19 00:00 Mechanical Ventilator 02/21/19 00:00 30 02/21/19 00:00 76 02/21/19 00:00 98.2 74 18 138/79 (98) 99 02/20/19 22:52 72 16 100 Mechanical Ventilator 30 74 17 30 02/20/19 20:36 76 16 30 02/20/19 20:00 98.6 78 17 150/85 (106) 99 02/20/19 20:00 82 02/20/19 20:00 30 02/20/19 20:00 Mechanical Ventilator 02/20/19 19:01 84 18 99 Mechanical Ventilator 30 79 18 30 02/20/19 18:00 98.6 70 17 130/60 (83) 100 02/20/19 16:49 79 17 30 02/20/19 16:00 67 02/20/19 16:00 Mechanical Ventilator 02/20/19 16:00 30 02/20/19 16:00 98.6 70 17 130/60 (83) 100 02/20/19 15:01 73 16 100 Mechanical Ventilator 30 70 16 30 02/20/19 13:08 75 16 30 02/20/19 12:00 Mechanical Ventilator 02/20/19 12:00 98.9 81 18 146/70 (95) 100 02/20/19 12:00 30 02/20/19 12:00 85 02/20/19 11:20 70 16 100 Mechanical Ventilator 30 70 16 30 02/20/19 09:25 82 18 30 02/20/19 08:00 30 02/20/19 08:00 Mechanical Ventilator 02/20/19 08:00 90 02/20/19 08:00 98.3 78 18 150/79 (102) 100 02/20/19 07:25 82 17 100 Mechanical Ventilator 30 82 16 30 02/20/19 05:06 81 18 30 02/20/19 04:00 Mechanical Ventilator 02/20/19 04:00 73 02/20/19 04:00 98.2 73 17 138/84 (102) 100 02/20/19 04:00 30 02/20/19 03:14 82 17 98 Mechanical Ventilator 30 82 17 30 02/20/19 01:10 67 16 30 02/20/19 00:00 Mechanical Ventilator 02/20/19 00:00 98.4 73 17 128/64 (85) 100 02/20/19 00:00 30 02/20/19 00:00 67 02/19/19 23:15 68 17 99 Mechanical Ventilator 30 68 17 30 02/19/19 21:00 80 18 30 02/19/19 20:00 69 02/19/19 20:00 Mechanical Ventilator 02/19/19 20:00 30 02/19/19 20:00 98.2 65 16 142/60 (87) 97 02/19/19 19:30 79 16 100 Mechanical Ventilator 30 78 16 30 02/19/19 17:14 69 16 30 02/19/19 16:00 30 02/19/19 16:00 91 02/19/19 16:00 Mechanical Ventilator 02/19/19 16:00 97.9 73 16 131/69 (89) 99 02/19/19 14:55 78 16 97 Mechanical Ventilator 30 78 17 30 02/19/19 14:54 99 02/19/19 14:00 78 21 30 02/19/19 12:00 98.9 77 16 152/100 (117) 99 02/19/19 12:00 30 02/19/19 12:00 91 02/19/19 12:00 Mechanical Ventilator 02/19/19 10:48 80 16 98 Mechanical Ventilator 30 80 18 30 02/19/19 09:35 30 02/19/19 09:33 76 22 30 30 Intake and Output 02/20/19 02/21/19 18:59 06:59 Intake Total 1416.092 ml 910 ml Output Total 1500 ml Balance 1416.092 ml -590 ml Intake Free Water 100 ml 150 ml IV Total 776.092 ml 220 ml Tube Feeding 540 ml 540 ml Output Urine Total 1500 ml Labs Test 02/19/19 05:15 02/20/19 03:40 White Blood Count 8.2 K/UL (4.8-10.8) 6.8 K/UL (4.8-10.8) Red Blood Count 2.98 M/UL (4.70-6.10) 2.74 M/UL (4.70-6.10) Hemoglobin 8.8 G/DL (14.2-18.0) 8.2 G/DL (14.2-18.0) Hematocrit 28.7 % (42.0-52.0) 26.5 % (42.0-52.0) Mean Corpuscular Volume 96 FL (80-99) 97 FL (80-99) Mean Corpuscular Hemoglobin 29.5 PG (27.0-31.0) 29.7 PG (27.0-31.0) Mean Corpuscular Hemoglobin Concent 30.6 G/DL (32.0-36.0) 30.8 G/DL (32.0-36.0) Red Cell Distribution Width 15.0 % (11.6-14.8) 14.8 % (11.6-14.8) Platelet Count 148 K/UL (150-450) 140 K/UL (150-450) Mean Platelet Volume 6.7 FL (6.5-10.1) 6.0 FL (6.5-10.1) Neutrophils (%) (Auto) 77.9 % (45.0-75.0) 76.2 % (45.0-75.0) Lymphocytes (%) (Auto) 9.7 % (20.0-45.0) 9.2 % (20.0-45.0) Monocytes (%) (Auto) 8.8 % (1.0-10.0) 10.3 % (1.0-10.0) Eosinophils (%) (Auto) 2.9 % (0.0-3.0) 3.6 % (0.0-3.0) Basophils (%) (Auto) 0.6 % (0.0-2.0) 0.6 % (0.0-2.0) Sodium Level 144 MMOL/L (136-145) 144 MMOL/L (136-145) Potassium Level 4.4 MMOL/L (3.5-5.1) 4.2 MMOL/L (3.5-5.1) Chloride Level 104 MMOL/L (98-107) 105 MMOL/L (98-107) Carbon Dioxide Level 39 MMOL/L (21-32) 39 MMOL/L (21-32) Anion Gap 2 mmol/L (5-15) 0 mmol/L (5-15) Blood Urea Nitrogen 15 mg/dL (7-18) 16 mg/dL (7-18) Creatinine 0.8 MG/DL (0.55-1.30) 0.8 MG/DL (0.55-1.30) Estimat Glomerular Filtration Rate mL/min (>60) mL/min (>60) Glucose Level 97 MG/DL (74-106) 96 MG/DL (74-106) Calcium Level 8.6 MG/DL (8.5-10.1) 8.3 MG/DL (8.5-10.1) Phosphorus Level 1.5 MG/DL (2.5-4.9) 2.0 MG/DL (2.5-4.9) Magnesium Level 2.3 MG/DL (1.8-2.4) 2.3 MG/DL (1.8-2.4) Total Bilirubin 0.5 MG/DL (0.2-1.0) 0.5 MG/DL (0.2-1.0) Aspartate Amino Transf (AST/SGOT) 22 U/L (15-37) 20 U/L (15-37) Alanine Aminotransferase (ALT/SGPT) 39 U/L (12-78) 36 U/L (12-78) Alkaline Phosphatase 89 U/L (46-116) 82 U/L (46-116) Total Protein 5.7 G/DL (6.4-8.2) 5.4 G/DL (6.4-8.2) Albumin 2.4 G/DL (3.4-5.0) 2.3 G/DL (3.4-5.0) Globulin 3.3 g/dL 3.1 g/dL Albumin/Globulin Ratio 0.7 (1.0-2.7) 0.7 (1.0-2.7) Random Vancomycin Level 12.4 ug/mL 15.0 ug/mL Height (Feet): 5 Height (Inches): 10.00 Weight (Pounds): 164 Objective General: no bleeding or chills Head: normocephalic, atraumatic Neck: supple ++ NG Respiratory: generally reduced bs, ++ trach/vent Cardiovascular: tachycardia, HS1, HS2, RRR Gastrointestinal: non tender, soft Musculoskeletal: normal inspection Neurologic: sedated on ventilator Skin: no rash, palpation normal gu: go+ clear urine Conrado Morel MD Feb 21, 2019 09:20
--- NOTE | 2019-02-21 10:06 | General Progress Note ---
Assessment/Plan Problem List: (1) COPD (chronic obstructive pulmonary disease) ICD Codes: J44.9 - Chronic obstructive pulmonary disease, unspecified SNOMED: 39152122 Qualifiers: Qualified Codes: J44.1 - Chronic obstructive pulmonary disease with (acute) exacerbation (2) Cardiac arrest ICD Codes: I46.9 - Cardiac arrest, cause unspecified SNOMED: 663355550 (3) HTN (hypertension) ICD Codes: I10 - Essential (primary) hypertension SNOMED: 27725039 (4) Encounter for PEG (percutaneous endoscopic gastrostomy) ICD Codes: Z43.1 - Encounter for attention to gastrostomy SNOMED: 017422735, 624414476 Status: stable, unchanged Assessment/Plan: s/p PEG and Trach GTF management of DVT per hematology repeat labs in am GT flushes and Care Subjective ROS Limited/Unobtainable: No Allergies: Coded Allergies: No Known Allergies (Unverified , 06/05/18) Objective Last 24 Hour Vital Signs Date Time Temp Pulse Resp B/P (MAP) Pulse Ox O2 Delivery O2 Flow Rate FiO2 02/21/19 09:16 99 02/21/19 08:40 91 19 30 02/21/19 08:00 98.4 85 20 121/65 (83) 99 02/21/19 08:00 30 02/21/19 08:00 Mechanical Ventilator 02/21/19 08:00 62 02/21/19 07:23 97 16 100 Mechanical Ventilator 30 97 16 30 02/21/19 04:43 74 16 30 02/21/19 04:00 30 02/21/19 04:00 Mechanical Ventilator 02/21/19 04:00 98.7 80 19 144/62 (89) 99 02/21/19 03:24 91 02/21/19 02:30 93 16 100 Mechanical Ventilator 30 91 16 30 02/21/19 00:40 86 17 30 02/21/19 00:00 Mechanical Ventilator 02/21/19 00:00 30 02/21/19 00:00 76 02/21/19 00:00 98.2 74 18 138/79 (98) 99 02/20/19 22:52 72 16 100 Mechanical Ventilator 30 74 17 30 02/20/19 20:36 76 16 30 02/20/19 20:00 98.6 78 17 150/85 (106) 99 02/20/19 20:00 82 02/20/19 20:00 30 02/20/19 20:00 Mechanical Ventilator 02/20/19 19:01 84 18 99 Mechanical Ventilator 30 79 18 30 02/20/19 18:00 98.6 70 17 130/60 (83) 100 02/20/19 16:49 79 17 30 02/20/19 16:00 67 02/20/19 16:00 Mechanical Ventilator 02/20/19 16:00 30 02/20/19 16:00 98.6 70 17 130/60 (83) 100 02/20/19 15:01 73 16 100 Mechanical Ventilator 30 70 16 30 02/20/19 13:08 75 16 30 02/20/19 12:00 Mechanical Ventilator 02/20/19 12:00 98.9 81 18 146/70 (95) 100 02/20/19 12:00 30 02/20/19 12:00 85 02/20/19 11:20 70 16 100 Mechanical Ventilator 30 70 16 30 Intake and Output 02/20/19 02/21/19 18:59 06:59 Intake Total 1416.092 ml 910 ml Output Total 1500 ml Balance 1416.092 ml -590 ml Intake Free Water 100 ml 150 ml IV Total 776.092 ml 220 ml Tube Feeding 540 ml 540 ml Output Urine Total 1500 ml Height (Feet): 5 Height (Inches): 10.00 Weight (Pounds): 164 General Appearance: no apparent distress EENT: normal ENT inspection Neck: supple Cardiovascular: normal rate Respiratory/Chest: decreased breath sounds Abdomen: normal bowel sounds, non tender, soft Extremities: non-tender Jaylen Aleman MD Feb 21, 2019 10:06
--- NOTE | 2019-02-21 10:23 | General Progress Note ---
Assessment/Plan Status: stable, unchanged Assessment/Plan: s: Post extubation on Trach and Vent O: Awake , following the command, seen in [facility], Saenz in place PHYSICAL EXAMINATION: GENERAL: An elderly male, lying in bed, not in acute distress. HEENT: Normocephalic and atraumatic. Pupils slightly responsive to light. Unable to assess oral mucosa NECK: Trach in place , Supple. No lymphadenopathy.CARDIOVASCULAR: He is tachycardic. S1, S2 normal. No murmur can be heard. LUNGS: Diminished breathing sounds at the bases. No wheezing or rhonchi. Normal breathing effort. ABDOMEN: PEG in place, Soft, nontender, and nondistended. Normal bowel sounds. No hepatosplenomegaly or ascites. No organomegaly.EXTREMITIES: No edema or cyanosis. labs: dated Feb 19 reviewed Meds: reviewed and reconciled , including Vanco and Meropenem ASSESSMENT AND PLAN: 1. Trach dependent respiratory failure. post extubation , On vent assisted Trach setting 2. Sepsis- Gram negative HCA PNA. Stable 3. Chronic obstructive pulmonary disease, end-stage, oxygen-dependent. 4. Cardiopulmonary arrest, status post resuscitation x2. 4. Hypertension. 5. Abnormal blood sugar. 6. Anemia. 7. Abn Trop: likely secondary to #4 7. GI and DVT prophylaxis. 8. Dysphegia PLAN OF CARE: Notes from pulmonary and Cardiology reviewed Restarted on anticoagulation , with preserved hgb levels S/P PEG and trach placement Currently on weaning program per Pulmonary Subjective Allergies: Coded Allergies: No Known Allergies (Unverified , 06/05/18) Objective Last 24 Hour Vital Signs Date Time Temp Pulse Resp B/P (MAP) Pulse Ox O2 Delivery O2 Flow Rate FiO2 02/21/19 09:16 99 02/21/19 08:40 91 19 30 02/21/19 08:00 98.4 85 20 121/65 (83) 99 02/21/19 08:00 30 02/21/19 08:00 Mechanical Ventilator 02/21/19 08:00 62 02/21/19 07:23 97 16 100 Mechanical Ventilator 30 97 16 30 02/21/19 04:43 74 16 30 02/21/19 04:00 30 02/21/19 04:00 Mechanical Ventilator 02/21/19 04:00 98.7 80 19 144/62 (89) 99 02/21/19 03:24 91 02/21/19 02:30 93 16 100 Mechanical Ventilator 30 91 16 30 02/21/19 00:40 86 17 30 02/21/19 00:00 Mechanical Ventilator 02/21/19 00:00 30 02/21/19 00:00 76 02/21/19 00:00 98.2 74 18 138/79 (98) 99 02/20/19 22:52 72 16 100 Mechanical Ventilator 30 74 17 30 02/20/19 20:36 76 16 30 02/20/19 20:00 98.6 78 17 150/85 (106) 99 02/20/19 20:00 82 02/20/19 20:00 30 02/20/19 20:00 Mechanical Ventilator 02/20/19 19:01 84 18 99 Mechanical Ventilator 30 79 18 30 02/20/19 18:00 98.6 70 17 130/60 (83) 100 02/20/19 16:49 79 17 30 02/20/19 16:00 67 02/20/19 16:00 Mechanical Ventilator 02/20/19 16:00 30 02/20/19 16:00 98.6 70 17 130/60 (83) 100 02/20/19 15:01 73 16 100 Mechanical Ventilator 30 70 16 30 02/20/19 13:08 75 16 30 02/20/19 12:00 Mechanical Ventilator 02/20/19 12:00 98.9 81 18 146/70 (95) 100 02/20/19 12:00 30 02/20/19 12:00 85 02/20/19 11:20 70 16 100 Mechanical Ventilator 30 70 16 30 Intake and Output 02/20/19 02/21/19 18:59 06:59 Intake Total 1416.092 ml 910 ml Output Total 1500 ml Balance 1416.092 ml -590 ml Intake Free Water 100 ml 150 ml IV Total 776.092 ml 220 ml Tube Feeding 540 ml 540 ml Output Urine Total 1500 ml Height (Feet): 5 Height (Inches): 10.00 Weight (Pounds): 164 Brianne Henry MD Feb 21, 2019 10:23
--- NOTE | 2019-02-21 10:50 | Nephrology Progress Note ---
Assessment/Plan Problem List: (1) Cardiac arrest (2) Prerenal azotemia (3) Hypernatremia (4) Hypoalbuminemia (5) HTN (hypertension) Assessment Pre renal Azotemia due to - Dehydration- - High Protein catabolic state as result of Doxy and steroids HyperNatremia due to free water deficit HypoAlbuminemia Plan Sugg: no labs today stable from renal stand point had PEG 02/15 Tracheostomy 02/12 Phos supplement keep bp in check stop D5W IV fluid Avoid Nephrotoxics Monitor lytes per consultants Subjective ROS Limited/Unobtainable: Yes Objective Objective Last 24 Hour Vital Signs Date Time Temp Pulse Resp B/P (MAP) Pulse Ox O2 Delivery O2 Flow Rate FiO2 02/21/19 09:16 99 02/21/19 08:40 91 19 30 02/21/19 08:00 98.4 85 20 121/65 (83) 99 02/21/19 08:00 30 02/21/19 08:00 Mechanical Ventilator 02/21/19 08:00 62 02/21/19 07:23 97 16 100 Mechanical Ventilator 30 97 16 30 02/21/19 04:43 74 16 30 02/21/19 04:00 30 02/21/19 04:00 Mechanical Ventilator 02/21/19 04:00 98.7 80 19 144/62 (89) 99 02/21/19 03:24 91 02/21/19 02:30 93 16 100 Mechanical Ventilator 30 91 16 30 02/21/19 00:40 86 17 30 02/21/19 00:00 Mechanical Ventilator 02/21/19 00:00 30 02/21/19 00:00 76 02/21/19 00:00 98.2 74 18 138/79 (98) 99 02/20/19 22:52 72 16 100 Mechanical Ventilator 30 74 17 30 02/20/19 20:36 76 16 30 02/20/19 20:00 98.6 78 17 150/85 (106) 99 02/20/19 20:00 82 02/20/19 20:00 30 02/20/19 20:00 Mechanical Ventilator 02/20/19 19:01 84 18 99 Mechanical Ventilator 30 79 18 30 02/20/19 18:00 98.6 70 17 130/60 (83) 100 02/20/19 16:49 79 17 30 02/20/19 16:00 67 02/20/19 16:00 Mechanical Ventilator 02/20/19 16:00 30 02/20/19 16:00 98.6 70 17 130/60 (83) 100 02/20/19 15:01 73 16 100 Mechanical Ventilator 30 70 16 30 02/20/19 13:08 75 16 30 02/20/19 12:00 Mechanical Ventilator 02/20/19 12:00 98.9 81 18 146/70 (95) 100 02/20/19 12:00 30 02/20/19 12:00 85 02/20/19 11:20 70 16 100 Mechanical Ventilator 30 70 16 30 Intake and Output 02/20/19 02/21/19 18:59 06:59 Intake Total 1416.092 ml 910 ml Output Total 1500 ml Balance 1416.092 ml -590 ml Intake Free Water 100 ml 150 ml IV Total 776.092 ml 220 ml Tube Feeding 540 ml 540 ml Output Urine Total 1500 ml Height (Feet): 5 Height (Inches): 10.00 Weight (Pounds): 164 General Appearance: no apparent distress, lethargic EENT: other - trach-vent Respiratory/Chest: decreased breath sounds Abdomen: other - PEg Objective no change Felipe Salmon MD Feb 21, 2019 10:50
[2019-02-21 12:00] VITALS: BP 148/84
--- NOTE | 2019-02-21 12:05 | NUR ---
RESPIRATORY NOTE: Per Dr. White, change settings from CPAP PS 6 to CPAP PS 4. ABG after 1 hour.
--- NOTE | 2019-02-21 13:05 | NUR ---
DISCHARGE DISPOSITION: PLEASE READ PATIENT TO BE DISCHARGED TO [facility] [address] [facility] [address] T: [phone]>> CALL FOR REPORT [facility] ETA 1500 W/ RT SON IRMA PALAFOX IS AWARE AND AGREEABLE TO THE DCP
[2019-02-21] MEDS: LORazepam Inj 2mg/ml 1ml IV PRN (14:28)
--- NOTE | 2019-02-21 14:33 | NUR ---
NURSE NOTES: Called [facility]. Spoke to [place] to give report. Will continue to monitor.
--- NOTE | 2019-02-21 15:48 | NUR ---
NURSE NOTES: [facility] here to pick up man pt. Report given.
--- NOTE | 2019-02-21 15:48 | Surgery Progress Note ---
Surgery Progress Note Subjective Procedure Performed tracheostomy bronchoscopy Additional Comments slowly improving labs noted exam stable trach stable weaning Objective Last 24 Hour Vital Signs Date Time Temp Pulse Resp B/P (MAP) Pulse Ox O2 Delivery O2 Flow Rate FiO2 02/21/19 15:08 73 16 100 Mechanical Ventilator 30 74 16 30 02/21/19 13:50 86 17 30 02/21/19 13:30 83 16 99 Mechanical Ventilator 30 89 15 30 02/21/19 12:00 98.4 89 20 148/84 (105) 97 02/21/19 12:00 88 02/21/19 12:00 Mechanical Ventilator 02/21/19 12:00 30 02/21/19 11:09 89 22 99 Mechanical Ventilator 30 89 15 30 02/21/19 09:16 99 02/21/19 08:40 91 19 30 02/21/19 08:00 98.4 85 20 121/65 (83) 99 02/21/19 08:00 30 02/21/19 08:00 Mechanical Ventilator 02/21/19 08:00 62 02/21/19 07:23 97 16 100 Mechanical Ventilator 30 97 16 30 02/21/19 04:43 74 16 30 02/21/19 04:00 30 02/21/19 04:00 Mechanical Ventilator 02/21/19 04:00 98.7 80 19 144/62 (89) 99 02/21/19 03:24 91 02/21/19 02:30 93 16 100 Mechanical Ventilator 30 91 16 30 02/21/19 00:40 86 17 30 02/21/19 00:00 Mechanical Ventilator 02/21/19 00:00 30 02/21/19 00:00 76 02/21/19 00:00 98.2 74 18 138/79 (98) 99 02/20/19 22:52 72 16 100 Mechanical Ventilator 30 74 17 30 02/20/19 20:36 76 16 30 02/20/19 20:00 98.6 78 17 150/85 (106) 99 02/20/19 20:00 82 02/20/19 20:00 30 02/20/19 20:00 Mechanical Ventilator 02/20/19 19:01 84 18 99 Mechanical Ventilator 30 79 18 30 02/20/19 18:00 98.6 70 17 130/60 (83) 100 02/20/19 16:49 79 17 30 02/20/19 16:00 67 02/20/19 16:00 Mechanical Ventilator 02/20/19 16:00 30 02/20/19 16:00 98.6 70 17 130/60 (83) 100 I&O Intake and Output 02/20/19 02/21/19 19:00 07:00 Intake Total 1261.092 ml 910 ml Output Total 1500 ml Balance 1261.092 ml -590 ml Intake Free Water 100 ml 150 ml IV Total 666.092 ml 220 ml Tube Feeding 495 ml 540 ml Output Urine Total 1500 ml Dressing: dry Wound: clean Cardiovascular: RSR Respiratory: clear Abdomen: soft, flat, present bowel sounds, other Extremities: no cyanosis, other Laboratory Tests Test 02/21/19 11:24 02/21/19 13:28 Arterial Blood pH 7.414 (7.350-7.450) 7.416 (7.350-7.450) Arterial Blood Partial Pressure CO2 56.6 mmHg (35.0-45.0) *H 61.8 mmHg (35.0-45.0) *H Arterial Blood Partial Pressure O2 119.4 mmHg (75.0-100.0) H 69.2 mmHg (75.0-100.0) L Arterial Blood HCO3 35.4 mmol/L (22.0-26.0) H 38.8 mmol/L (22.0-26.0) H Arterial Blood Oxygen Saturation 98.0 % (95-100) 93.3 % (95-100) L Arterial Blood Base Excess 9.5 (-2-2) *H 12.4 (-2-2) *H Delon Test Positive Positive Plan Problems: (1) Respiratory distress Assessment & Plan: 73-year-old male with acute respiratory decompensation requiring intubation and intensive care unit evaluation was on vent support. Patient was recently extubated but unfortunately is not tolerating expiration very well as he requires BiPAP persistently and if taken off desaturates. Given these findings tracheostomy is potentially indicated and agree with pulmonology team and medical team that patient may benefit from tracheostomy to allow for recovery. Will obtain consent from the patient's family and patient for tracheostomy placement in hopes to have patient able to be weaned rather than reintubated. Thank you for allowing me to participate patient's care will continue with recommendations DAILY ESTIMATED NEEDS: Needs based on Critical care, 61kg 22-30 kcals/kg 1038-7924 total kcals 1.2-2 g protein/kg 73-122 g total protein 25-30 mL/kg 5044-8880 total fluid mLs NUTRITION DIAGNOSIS: * Swallowing difficulty R/T respiratory status as evidenced by pt s/p cardiac arrest, now s/p trach placement, s/p PEG placement. (UPDATED) CURRENT TF:Glucerna 1.5@45ml/hr x 24 hrs ENTERAL NUTRITION RECOMMENDATIONS: Glucerna 1.5 @45ml/hr x24 hrs to provide 1080ml, 1620 kcal, 89g pro, 820ml free H2O - REC TF CHANGE TO GLUCERNA 1.5 FOR LOW VOLUME FEEDING. - Start @25ml/hr for 6 hrs, advance as tolerated 10ml q4-6 hrs to goal - Flush per MD, HOB over 30 degrees. W/ continued good TF tolerance, may increase Glucerna 1.5 by 5ml/hr to goal of 50ml/hr to better meet est needs. TF to provide 1200ml, 1800 kcal, 99g pro, 911ml free H2O when @50ml/hr x24 hrs. ADDITIONAL RECOMMENDATIONS: * Pt w/ adm: rec to RECALIBRATE bed scale for accurate updated weight + Weekly weights (obtain standing if able) * Monitor BGs closely while on steroidal meds * Lytes, daily, replete as needed * TF RECS ABOVE s/p trach s/p peg recovering wean vent as tolerated will follow thank you Kris Blake Feb 21, 2019 15:48
[2019-02-21] MEDS ORDERED: NS 275ml ONE (15:53)
--- NOTE | 2019-02-21 16:23 | Infectious Diseases Prog Note ---
Assessment/Plan Problems: (1) Aspiration pneumonia Assessment & Plan: due to pseudomonas aeruginosa , continue meropenem with higher dose for two weeks , aspiration precaution . EOT 02/21/19 (2) Leukocytosis Assessment & Plan: PARTIALLY DUE TO STEROIDS , with no evidence of sepsis, or bacteremia . repeated blood culture x2 is negative , continue meropenem and vancomycin empirically to cover for pneumonia and possible sepsis . IJ line was removed. taper steroids (3) Acute exacerbation of chronic obstructive pulmonary disease (COPD) Assessment & Plan: S/P doxycycline , on steroids and nebulizer treatment as per pulmonary (4) Cardiac arrest Assessment & Plan: etiology ? cardiology eval to rule out cardiac sources and neurology eval to evaluate his brain condition and to rule out anoxic brain injury (5) Chronic hypercapnic respiratory failure Assessment & Plan: S/P cardiac arrest , S/P tracheostomy after failing multiple weaning trials , pulmonary is following Assessment/Plan time of stamp doesn't reflect time patient was seen Subjective ROS Limited/Unobtainable: Yes Allergies: Coded Allergies: No Known Allergies (Unverified , 06/05/18) Subjective He was resting in bed comfortable, still on ventilator since didn't tolerate neck collar , S/P tracheostomy on 02/12 , unresponsive to verbal commands, no fever or chills no diarrhea, no significant secretions from his trach Objective Vital Signs Last 24 Hour Vital Signs Date Time Temp Pulse Resp B/P (MAP) Pulse Ox O2 Delivery O2 Flow Rate FiO2 02/21/19 15:08 73 16 100 Mechanical Ventilator 30 74 16 30 02/21/19 13:50 86 17 30 02/21/19 13:30 83 16 99 Mechanical Ventilator 30 89 15 30 02/21/19 12:00 98.4 89 20 148/84 (105) 97 02/21/19 12:00 88 02/21/19 12:00 Mechanical Ventilator 02/21/19 12:00 30 02/21/19 11:09 89 22 99 Mechanical Ventilator 30 89 15 30 02/21/19 09:16 99 02/21/19 08:40 91 19 30 02/21/19 08:00 98.4 85 20 121/65 (83) 99 02/21/19 08:00 30 02/21/19 08:00 Mechanical Ventilator 02/21/19 08:00 62 02/21/19 07:23 97 16 100 Mechanical Ventilator 30 97 16 30 02/21/19 04:43 74 16 30 02/21/19 04:00 30 02/21/19 04:00 Mechanical Ventilator 02/21/19 04:00 98.7 80 19 144/62 (89) 99 02/21/19 03:24 91 02/21/19 02:30 93 16 100 Mechanical Ventilator 30 91 16 30 02/21/19 00:40 86 17 30 02/21/19 00:00 Mechanical Ventilator 02/21/19 00:00 30 02/21/19 00:00 76 02/21/19 00:00 98.2 74 18 138/79 (98) 99 02/20/19 22:52 72 16 100 Mechanical Ventilator 30 74 17 30 02/20/19 20:36 76 16 30 02/20/19 20:00 98.6 78 17 150/85 (106) 99 02/20/19 20:00 82 02/20/19 20:00 30 02/20/19 20:00 Mechanical Ventilator 02/20/19 19:01 84 18 99 Mechanical Ventilator 30 79 18 30 02/20/19 18:00 98.6 70 17 130/60 (83) 100 02/20/19 16:49 79 17 30 Height (Feet): 5 Height (Inches): 10.00 Weight (Pounds): 164 General Appearance: WD/WN, no acute distress HEENT: normocephalic, atraumatic, anicteric, mucous membranes moist, supple, no JVD, status post trach Respiratory/Chest: chest wall non-tender, lungs clear, normal breath sounds, no respiratory distress, no accessory muscle use Cardiovascular: normal peripheral pulses, normal rate, regular rhythm, no gallop/murmur, no JVD Abdomen: normal bowel sounds, soft, non tender, no organomegaly, non distended , no mass, no scars Extremities: no cyanosis, no clubbing Skin: no rash, no lesions Neurologic/Psychiatric: alert, unresponsiveness Lymphatic: no neck adenopathy, no groin adenopathy Musculoskeletal: normal muscle bulk, no effusion Laboratory Tests Test 02/21/19 11:24 02/21/19 13:28 Arterial Blood pH 7.414 (7.350-7.450) 7.416 (7.350-7.450) Arterial Blood Partial Pressure CO2 56.6 mmHg (35.0-45.0) *H 61.8 mmHg (35.0-45.0) *H Arterial Blood Partial Pressure O2 119.4 mmHg (75.0-100.0) H 69.2 mmHg (75.0-100.0) L Arterial Blood HCO3 35.4 mmol/L (22.0-26.0) H 38.8 mmol/L (22.0-26.0) H Arterial Blood Oxygen Saturation 98.0 % (95-100) 93.3 % (95-100) L Arterial Blood Base Excess 9.5 (-2-2) *H 12.4 (-2-2) *H Delon Test Positive Positive France Orlando M.D. Feb 21, 2019 16:23
--- NOTE | 2019-02-21 18:07 | Pulmonolgy Critical Care Note ---
Critical Care - Asmt/Plan Assessment/Plan: Pulmonary Critical Care Progress Note HPI Patient is a 73 year olf man with previous history of COPD, CHF, HTN, DM admitted with extreme respiratory distress, intubated in the ED, subsequent Cardiac Arrest. Noted to have hypercapneic respiratory failure. s/p Tracheostomy tolerated well, s/p GT, tolerating CPAP intemittently - PS 4 today, with good ABG RIJ thrombus - on AC Seen earlier Allergies: No Known Allergies Past Medical History: COPD/Asthma, CHF, Hypertension, DM All Other Systems: limited Physical Exam Vital signs noted General Appearance: sedated Head: normocephalic, atraumatic Eyes: bilateral eye PERRL, bilateral eye EOMI ENT: moist mm, no LN Neck: supple Respiratory: generally reduced BS Cardiovascular: tachycardia, HS1, HS2, RRR Gastrointestinal: non tender, soft Musculoskeletal: normal inspection Neurologic: sedated, no focal signs Skin: no rash, palpation normal Impression: COPD exacerbation Hypercapneic respiratory failure - s/p Tracheostomy S/p cardiac arrest in the ED CHF HTN Diabetes Plan ACVC - wean as tolerated Adjust FIO2 for sats 90-94% HHN Q4 IV Solumedrol - reduce as tolerated Sedation PRN Sz management Monitor labs PPX Antibiotics per ID DNR status OK for SDU Labs noted Chest X-Ray: No consolidation, no effusion Critical Care - Objective Last 24 Hour Vital Signs Date Time Temp Pulse Resp B/P (MAP) Pulse Ox O2 Delivery O2 Flow Rate FiO2 02/21/19 15:08 73 16 100 Mechanical Ventilator 30 74 16 30 02/21/19 13:50 86 17 30 02/21/19 13:30 83 16 99 Mechanical Ventilator 30 89 15 30 02/21/19 12:00 98.4 89 20 148/84 (105) 97 02/21/19 12:00 88 02/21/19 12:00 Mechanical Ventilator 02/21/19 12:00 30 02/21/19 11:09 89 22 99 Mechanical Ventilator 30 89 15 30 02/21/19 09:16 99 02/21/19 08:40 91 19 30 02/21/19 08:00 98.4 85 20 121/65 (83) 99 02/21/19 08:00 30 02/21/19 08:00 Mechanical Ventilator 02/21/19 08:00 62 02/21/19 07:23 97 16 100 Mechanical Ventilator 30 97 16 30 02/21/19 04:43 74 16 30 02/21/19 04:00 30 02/21/19 04:00 Mechanical Ventilator 02/21/19 04:00 98.7 80 19 144/62 (89) 99 02/21/19 03:24 91 02/21/19 02:30 93 16 100 Mechanical Ventilator 30 91 16 30 02/21/19 00:40 86 17 30 02/21/19 00:00 Mechanical Ventilator 02/21/19 00:00 30 02/21/19 00:00 76 02/21/19 00:00 98.2 74 18 138/79 (98) 99 02/20/19 22:52 72 16 100 Mechanical Ventilator 30 74 17 30 02/20/19 20:36 76 16 30 02/20/19 20:00 98.6 78 17 150/85 (106) 99 02/20/19 20:00 82 02/20/19 20:00 30 02/20/19 20:00 Mechanical Ventilator 02/20/19 19:01 84 18 99 Mechanical Ventilator 30 79 18 30 Accucheck: 111 Critical Care - Subjective ROS Limited/Unobtainable: No FI02: 30 Vent Support Breath Rate: 16 Vent Support Mode: AC Vent Tidal Volume: 500 Sputum Amount: Small PEEP: 5.0 PIP: 22 Tube Feeding Amount: 45 I&O: Intake and Output 02/20/19 02/21/19 19:00 07:00 Intake Total 1261.092 ml 910 ml Output Total 1500 ml Balance 1261.092 ml -590 ml Intake Free Water 100 ml 150 ml IV Total 666.092 ml 220 ml Tube Feeding 495 ml 540 ml Output Urine Total 1500 ml ET-Tube: 7.5 ET Position: 24 Johny White MD Feb 21, 2019 18:07
--- NOTE | 2019-02-22 10:40 | Discharge Summary ---
Discharge Summary Discharge Summary _ DATE OF ADMISSION: 01/26/2019 DATE OF DISCHARGE: 02/21/2019 DISCHARGED BY: Dr Henry REASON FOR ADMISSION: 73 years old male with past medical history of COPD, oxygen dependent, hypertension, CHF, diabetes mellitus, was brought from home with acute shortness of breath. Patient's history was limited as patient was in extreme respiratory distress. Patient was on 100% nonrebreathing mask , however still demonstrated acute respiratory distress . ABG revealed severe acidosis and hypercapnia . Patient was tachycardic and tachypneic, with use of accessory muscles and appeared to be an acute respiratory distress. Patient subsequently was orally intubated in the emergency department . Chest x-ray revealed hyperinflated lungs , likely due to COPD , and endotracheal tube tip approximately 5.5 cm above dimitry. Laboratory work-up revealed no leukocytosis, hemoglobin 13.5 ,hematocrit 46, platelet count 181. Lactic acid 0.8. , chemistry revealed CO2 43, otherwise stable electrolytes and renal parameters. Troponin 0.009. EKG revealed sinus rhythm. While still in the emergency department , patient's heart rate dropped and he became hypotensive. ACLS protocol initiated . Right internal jugular central line was placed with subsequent chest x-ray confirming placement. Patient coded the second time ,ACLS protocol implemented. Patient had ventricular fibrillation, started on Amiodarone drip and Levophed and admitted to intensive care unit for further management . CONSULTANTS: aco coordinator Dr. Zuniga pulmonary Dr. White ID specialist Dr. Orlando small arms artillery repairer Dr. Salmon cane splicer/oncologist Dr. Morel [facility] COURSE: Patient admitted to ICU. Patient was on the IV fluids, ventilator support and pressors. Patient started on empiric antibiotics, intravenous steroids and inhaled bronchodilators. DVT prophylaxis provided. Ventilator support provided. Soil Sort Worker closely followed. Patient was followed-up with ABG and chest x-ray. Ventilator settings titrated as needed. Sedation provided as needed. CODE STATUS changed to DNR / DNI status after discussion with the son about the gravity of prognosis. CT of the head revealed no acute intracranial pathology. Projector Booth Operator followed. Echocardiogram demonstrated ejection fraction estimated to be 50% with no evidence of left ventricular hypertrophy. No evidence of pericardial effusion. No evidence of wall motion abnormality. Moderate aortic regurgitation. Hemodynamic status was closely monitored with goal to keep mean arterial blood pressure above 65. Patient subsequently was able to be weaned from pressors. Hemodynamic status was closely monitored. Second troponin was positive. Further pattern of elevated troponin was consistent with NSTEMI. Given gravity of prognosis and current medical condition , conservative management was recommended by aco coordinator . Patient subsequently started on weaning protocol and was able to be extubated, but required positive pressure of BiPAP and was unable to be removed from the BiPAP . Patient eventually required reintubation. Given these findings, long-term airway was indicated and recommended . Surgeon discussed tracheostomy with the patient and his son , who expressed understanding and consented for surgery. Patient subsequently undergone on 02/12 placement of tracheostomy along with bronchoscopy. Tracheostomy care provided. Setting further titrated as needed. Infectious disease specialist followed. On the next day after admission patient developed leukocytosis WBC 16.9 and a low-grade fever. Patient initially was on empiric antibiotic. Blood cultures were negative. Sputum culture revealed Enterobacter. Patient had persistent leukocytosis, no fevers. Steroids tapered down. Repeated blood culture on 01/27 and 02/06 were negative. Sputum culture revealed Pseudomonas. Antibiotic regimen was optimized as per infectious disease specialist. Patient had aspiration pneumonia . Strict aspiration precautions were maintained. Patient undergone placement of PICC line 02/07 . Patient completed treatment for pneumonia on 02/21. On 02/08 carotid vertebral duplex scan revealed acute thrombus in the internal jugular vein . Venous duplex bilateral upper extremity revealed acute thrombus in the internal jugular vein. Patient started on anticoagulation with Eliquis. Coke Oven Mason recommended to repeat imaging in 3 months. GI specialist consulted for placement of PEG. Patient initially received nutritional support via NG tube. GI prophylaxis with PPI provided. Eliquis was placed on hold. Patient subsequently undergone on 02/15 upper endoscopy with PEG placement. G-tube site care provided. Abdominal binder applied. Patient started on tube feeding as per registered physical therapist recommendation . Tube feeding rate was advanced to reach the goal. Patient was able to tolerate tube feeding . Strict aspiration/reflux precaution maintained. Patient noted to have anemia. Anemia work-up was consistent with anemia of chronic disease, likely due to multifactorial causes. Hemoglobin and hematocrit were closely monitored with goal to keep hemoglobin above 7. Prior to discharge hemoglobin 8.2, hematocrit 26.5. Patient noted to have thrombocytopenia, likely due to underlying infection. HIV test was nonreactive . Hepatitis panel was negative. Platelet count was closely monitored; prior to discharge platelet count 140. Guide Dog Mobility Instructor followed. Renal parameters and electrolytes were closely monitored. Electrolytes were corrected as needed. Nephrotoxics were avoided. According to small arms artillery repairer, prerenal azotemia was due to dehydration and high protein catabolic state was as a result of doxycycline and steroids. Hypernatremia was due to free water deficit. Prior to discharge sodium from highest 152 down to 144. Creatinine remained stable. BUN from highest 39 down to 16. Only 1-30 Patient tolerated tracheostomy well. Patient started on weaning from ventilator. Patient tolerated CPAP intermittently. On the last day prior to discharge with pressure support of 4 with stable ABG. Continue further weaning at the subacute facility. Blood pressure was later managed with hydralazine. Blood pressure remained stable Blood sugar was managed with sliding scale of insulin. Supportive care provided Pain management addressed as needed. Bowel regimen instituted. Placement was found at [facility]. Patient was stable for transfer. FINAL DIAGNOSES: Acute hypercapnic respiratory failure requiring intubation Status post cardiopulmonary arrest Ventricular fibrillation Shock-resolved Acute COPD exacerbation Anoxic encephalopathy Aspiration pneumonia with Pseudomonas NSTEMI Moderate aortic regurgitation Status post tracheostomy and bronchoscopy 02/12 (due to prolonged ventilatory support and inability to wean appropriately without positive pressure) Acute DVT right jugular vein Hypernatremia-resolved Prerenal azotemia due to dehydration Hypoalbuminemia Hypertension Diabetes mellitus Dysphagia , status post PEG placement Anemia of chronic disease Thrombocytopenia DISCHARGE MEDICATIONS: List of medication was sent with patient to accepting facility DISCHARGE INSTRUCTIONS: Patient was discharged to the group home [facility]. Follow up with medical doctor at the facility. I have been assigned to dictate discharge summary for this account. I was not involved in the patient's management. Almita An NP Feb 22, 2019 10:40
--- NOTE | 2019-02-23 23:23 | Coder Physician Query ---
Clarification is required for compliance, coding accuracy, and to reflect severity of illness for this patient Dear Dr. Velázquez Date: ___02/23/19 __ Please respond to the following question: Your OP report states "A bronchoscopy was performed and evacuation of lung [place] of thick mucus was performed and almost all the lobes. The dimitry was with mild inflammation. No foreign bodies or other abnormalities were identified. All lung [place] otherwise with edema but stable and no signs of active purulence." Accurate coding of bronchoscopy and suctioning requires the site of the lobes be identified as the suctioning of the bronchus or the lung. Please clarify if you performed suctioning in the Bronchus (suction secretions from the airways/bronchus within the lobes) or the Lung (suction to obtain alveolar tissue/cells from within the lobes of the lung). Please also specify the lobes suctioned. PHYSICIAN RESPONSE: suctioning in the Bronchus (suction secretions from the airways/bronchus within the lobes) right upper, middle, lower, and left upper and left lower lobes. Physician signature Date Please also document in your Progress Notes and/or Discharge Summary and indicate if the condition was present on admission. GUSTAVO
== END 2019-02-21 15:54 | DRG 4 ==
LOC: EDBD 05:41 → EDBEDREQ 05:49 → EMR 06:00 → EDBEDREQ 08:42 → ICU 08:49 → 2W 02-18 03:00
PROC: 5A1955Z Respiratory Ventilation, Greater than 96 Consecutive Hours (ICD-10-PCS; principal; 2019-01-26)
PROC: 5A2204Z Restoration of Cardiac Rhythm, Single (ICD-10-PCS; principal; 2019-01-26)
PROC: 0BH18EZ Insertion of Endotracheal Airway into Trachea, Via Natural or Artificial Opening Endoscopic (ICD-10-PCS; principal; 2019-01-26)
PROC: 05HM33Z Insertion of Infusion Device into Right Internal Jugular Vein, Percutaneous Approach (ICD-10-PCS; principal; 2019-01-26)
PROC: B548ZZA Ultrasonography of Superior Vena Cava, Guidance (ICD-10-PCS; 2019-02-07)
PROC: 02HV33Z Insertion of Infusion Device into Superior Vena Cava, Percutaneous Approach (ICD-10-PCS; 2019-02-07)
PROC: 5A1955Z Respiratory Ventilation, Greater than 96 Consecutive Hours (ICD-10-PCS; 2019-02-11)
PROC: 0BH17EZ Insertion of Endotracheal Airway into Trachea, Via Natural or Artificial Opening (ICD-10-PCS; 2019-02-11)
PROC: 0B988ZZ Drainage of Left Upper Lobe Bronchus, Via Natural or Artificial Opening Endoscopic (ICD-10-PCS; 2019-02-12)
PROC: 0B9B8ZZ Drainage of Left Lower Lobe Bronchus, Via Natural or Artificial Opening Endoscopic (ICD-10-PCS; 2019-02-12)
PROC: 0B958ZZ Drainage of Right Middle Lobe Bronchus, Via Natural or Artificial Opening Endoscopic (ICD-10-PCS; 2019-02-12)
PROC: 0B113F4 Bypass Trachea to Cutaneous with Tracheostomy Device, Percutaneous Approach (ICD-10-PCS; 2019-02-12)
PROC: 0B968ZZ Drainage of Right Lower Lobe Bronchus, Via Natural or Artificial Opening Endoscopic (ICD-10-PCS; 2019-02-12)
PROC: 0DH63UZ Insertion of Feeding Device into Stomach, Percutaneous Approach (ICD-10-PCS; 2019-02-15)
PROC: 0DJ08ZZ Inspection of Upper Intestinal Tract, Via Natural or Artificial Opening Endoscopic (ICD-10-PCS; 2019-02-15)
DX: J44.1 Chronic obstructive pulmonary disease with (acute) exacerbation (principal); J96.22 Acute and chronic respiratory failure with hypercapnia; J69.0 Pneumonitis due to inhalation of food and vomit; I49.01 Ventricular fibrillation; J15.1 Pneumonia due to Pseudomonas; I21.4 Non-ST elevation (NSTEMI) myocardial infarction; A41.52 Sepsis due to Pseudomonas; R65.20 Severe sepsis without septic shock; I46.9 Cardiac arrest, cause unspecified; G93.1 Anoxic brain damage, not elsewhere classified; I82.C11 Acute embolism and thrombosis of right internal jugular vein; T82.868A Thrombosis due to vascular prosthetic devices, implants and grafts, initial encounter; Z99.11 Dependence on respirator [ventilator] status; E87.0 Hyperosmolality and hypernatremia; E44.0 Moderate protein-calorie malnutrition; E87.2 Acidosis; R57.9 Shock, unspecified; J44.0 Chronic obstructive pulmonary disease with (acute) lower respiratory infection; Z99.81 Dependence on supplemental oxygen; I35.1 Nonrheumatic aortic (valve) insufficiency; E86.0 Dehydration; D69.6 Thrombocytopenia, unspecified; D50.9 Iron deficiency anemia, unspecified; I11.0 Hypertensive heart disease with heart failure; I50.9 Heart failure, unspecified; R13.10 Dysphagia, unspecified; Z66 Do not resuscitate; E83.42 Hypomagnesemia; E83.39 Other disorders of phosphorus metabolism
CPT/HCPCS: 31500; 36415; 36569; 36600; 70450; 71045; 74018; 76937; 80048; 80053; 80061; 80076; 80202; 81001; 82140; 82270; 82378; 82550; 82553; 82607; 82728; 82746; 82803; 82962; 82977; 83036; 83540; 83550; 83605; 83690; 83735; 83880; 84100; 84132; 84300; 84443; 84478; 84484; 84550; 85007; 85025; 85060; 85610; 85730; 86140; 86703; 87040; 87070; 87081; 87181; 87205; 92950; 93005; 93306; 93880; 93970; 94002; 94003; 94150; 94640; 94660; 94664; 96361; 96365; 96375; 99291; J0171; J1815; J2250; J3490; J7620